=== PATIENT | male | born 1975 | race Caucasian/White ===

== ENCOUNTER 2021-09-03 13:08 | Inpatient (IN) | payer OTHER, SELFPAY ==
[2021-09-03] VITALS (31 sets, daily range): BP systolic 117–168; BP diastolic 49–121; PULSE 62–116; RESP 10–23; TEMP 36.8; O2SAT 96–100; BMI 23.3
--- NOTE | 2021-09-03 13:24 | ECG_ITS ---
[facility] Test Date: 2021-09-03 Pat Name: Alonso June Department: Room: Gender: Male V Belt Skiver: : 1975 Requested By: Kam Phillips Order Number: [id number] Janel MD: Heath Pacheco M.D. Measurements Intervals [place] Rate: 98 P: 69 WA: 148 QRS: 70 QRSD: 81 T: 57 QT: 312 QTc: 398 Interpretive Statements SINUS RHYTHM No previous ECG available for comparison Electronically Signed On 09-03-2021 18:41:21 CDT by Heath Pacheco M.D. [id number]
--- NOTE | 2021-09-03 13:24 | XRR_ITS ---
PROCEDURE INFORMATION: Exam: XR Chest Exam date and time: 09/03/2021 1:24 PM Age: 46 years old Clinical indication: Pain; Angina pectoris; Additional info: Chest pain TECHNIQUE: Imaging protocol: XR of the chest. Views: 1 view. COMPARISON: No relevant prior studies available. FINDINGS: Lungs: Unremarkable. No consolidation. Pleural spaces: Unremarkable. No pleural effusion. No pneumothorax. Heart/Mediastinum: Unremarkable. No cardiomegaly. Bones/joints: Unremarkable. XR/XR chest 1V portable 20004 IMPRESSION: No acute findings.
--- NOTE | 2021-09-03 13:50 | ED_ITS ---
HPI - Chest Pain General: Chief Complaint: Chest Pain Stated Complaint: Chest pain Time Seen by Provider: 09/03/21 13:23 Source: patient Mode of arrival: ambulatory Limitations: no limitations History of Present Illness: 46-year-old male presents to the emergency room with complaint of chest pain. Pain began while he was working on a car about 30 minutes prior to arrival. Patient states she has a history of coronary artery disease. He states he had 9 stents placed last year while he was in [place]. He did take a sublingual nitro after the chest pain began. He told me he had moderate relief from it he told the nurse he not get any improvement. He did get a little bit short of breath and nauseous no vomiting no diaphoresis. He still has persistent discomfort at this time. Pain radiates into his left shoulder and left arm MD complaint: chest pain Pertinent past history: coronary artery disease Timing of current episode: constant Prior episodes: Yes Onset: during exertion (Minimal exertion) Pain location: left chest Pain radiation: left arm and left shoulder Severity: moderate Quality: tightness and heaviness Relieving factors: nitroglycerin and rest Exacerbating factors: exertion Associated symptoms: Reports diaphoresis, dyspnea and nausea; Deny abdominal pain, fever(s), leg edema, palpitations, sense of impending doom, syncope or vomiting Treatment prior to arrival: aspirin and nitroglycerin Review of Systems Const: Reports: diaphoresis; Denies: fever(s) ENMT: Denies: throat pain, ear or mastoid pain, nasal discharge or nasal congestion Card: Reports: chest pain; Denies: palpitations, irregular heart rhythm, edema, swelling of feet/ankles or syncope Resp: Reports: dyspnea GI: Reports: nausea; Denies: abdominal pain or vomiting : Denies: flank pain, dysuria, urinary frequency or urinary urgency Skin/Breast: Denies: rash or pruritus PFS ED PFSH: Medical History CAD (coronary artery disease) 9stents Former smoker HTN (hypertension) Surgical History History of appendectomy Family History Other No pertinent family history Social History Smoking and tobacco status: former smoker Alcohol intake: never Housing: House Physical Exam Const: COMMON NORMALS: no acute distress GENERAL APPEARANCE: cooperative and comfortable ORIENTATION/CONSCIOUSNESS: Yes awake, Yes oriented to person, Yes oriented to place and Yes oriented to time HENMT: COMMON NORMALS: normocephalic, atraumatic, hearing grossly normal bilaterally, external ears normal, EAC's normal, TM's normal bilaterally, Normal nasal mucous membranes and turbinates present, moist oral mucous membranes and oropharynx normal HEAD & SCALP: normocephalic and atraumatic NOSE: Normal nasal mucous membranes and turbinates present EXTERNAL EAR: Yes external ears normal EXTERNAL AUDITORY CANAL: EAC's normal TYMPANIC MEMBRANE: TM's normal bilaterally Eye: COMMON NORMALS: Equal, round and reactive pupils present, EOMs intact bilaterally, conjunctivae normal and no scleral icterus CONJUNCTIVA: Yes conjunctivae normal PUPIL: Yes Equal, round and reactive pupils present Neck/C-Spine: COMMON NORMALS: full ROM, no lymphadenopathy, supple and no JVD Resp: COMMON NORMALS: normal respiratory effort, No retractions, No use of accessory muscles and clear to auscultation bilaterally AUSCULTATION: clear to auscultation bilaterally Cardio: COMMON NORMALS: no JVD, regular rate, regular rhythm and No murmurs present (Cardio) RATE: regular rate RHYTHM: regular rhythm GI: COMMON NORMALS: Soft to palpation and No hepatosplenomegaly present AUSCULTATION: Yes normoactive bowel sounds PALPATION: Yes Soft to palpation, No Tenderness to palpation present (GI), No Guarding due to palpation present (GI) and Yes No hepatosplenomegaly present Extremity: COMMON NORMALS: normal to inspection, capillary refill normal, no clubbing, cyanosis or edema, no calf tenderness and no pedal edema Neuro: SENSORIUM/ORIENTATION: Yes oriented to person, Yes oriented to place and Yes oriented to time Skin: COMMON NORMALS: no rashes or lesions noted GENERAL SKIN EXAM: no rashes or lesions noted Course Vital Signs: Vital signs: Vital Signs Temperature 97.4 F L 09/04/21 07:15 Pulse Rate 71 09/05/21 14:34 Respiratory Rate 15 09/05/21 14:34 Blood Pressure 117/62 09/05/21 14:34 Pulse Oximetry 95 09/05/21 14:34 MDM - Chest Pain Medical Decision Making Patient has chest pain relieved by nitro with report of known coronary disease and previous stents. He states he had 9 stents immediately after arrival here only to obtain his history began trying to get copies of his cath report from [place] he said this was done. We are not able to get these in within the timeframe of getting his [place] enzymes completed. They are negative at this point but he is reporting relief of chest pain with nitro. Discussed with hospitalist given his symptoms and reported history will need to admit consult cardiology and get his old records and review complete the serial enzymes as well. I discussed with cardiology and with hospitalist orders are written. Medical Records I reviewed the patient's medical records. Lab Data : 09/05/21 07:56 09/05/21 07:56 Radiology Impressions Chest X-Ray 09/03/21 13:24 IMPRESSION: No acute findings. Head MRI 09/04/21 05:20 IMPRESSION: 1. No evidence of restricted diffusion to suggest acute ischemia. 2. No suspicious intracranial signal abnormalities. Normal jimenez-white differentiation. 3. Tiny chronic lacunar infarct or prominent perivascular space LEFT cerebral peduncle. 4. No hemosiderin on susceptibly weighted images. 5. No acute intracranial findings. Head/Neck CTA 09/04/21 05:20 IMPRESSION: No large vessel stenosis or occlusion. IMPRESSION: No stenosis or occlusion. REFERENCES: NASCET CRITERIA. The degree of internal carotid artery stenosis is based on NASCET criteria. Normal is no stenosis. Mild is less than 50% stenosis. Moderate is 50-69% stenosis. Severe is 70% to 99% stenosis. Total occlusion is no detectable patent lumen. Head CT 09/04/21 20:45 IMPRESSION: 1. No acute intracranial hemorrhage or mass effect. 2. Other findings discussed above. Laboratory Results WBC 7.3 10^3/uL (4.0-10.0) 09/03/21 13:39 RBC 3.96 10^6/uL (4.1-5.3) L 09/03/21 13:39 Hgb 10.3 g/dL (11.7-16.6) L 09/03/21 13:39 Hct 32.7 % (42.0-52.0) L 09/03/21 13:39 MCV 82.6 fl (80-94) 09/03/21 13:39 MCH 26.0 pg (28.0-34.0) L 09/03/21 13:39 MCHC 31.5 g/dL (30.0-36.0) 09/03/21 13:39 RDW 14.4 % (12.1-15.1) 09/03/21 13:39 Plt Count 251 10^3/cmm (130-400) 09/03/21 13:39 MPV 12.8 fL (7.4-10.4) H 09/03/21 13:39 Neut % (Auto) 63.9 % 09/03/21 13:39 Lymph % (Auto) 20.9 % 09/03/21 13:39 Stephenson % (Auto) 12.0 % 09/03/21 13:39 Eos % (Auto) 2.1 % 09/03/21 13:39 Baso % (Auto) 0.8 % 09/03/21 13:39 Neut # (Auto) 4.66 10^3/uL (1.8-7.7) 09/03/21 13:39 Lymph # (Auto) 1.5 10^3/uL (0.8-4.8) 09/03/21 13:39 Stephenson # (Auto) 0.9 10^3/uL (0.2-0.9) 09/03/21 13:39 Eos # (Auto) 0.2 10^3/uL (0.0-0.8) 09/03/21 13:39 Baso # (Auto) 0.1 10^3/uL (0.0-0.1) 09/03/21 13:39 Nucleated RBC % (auto) 0 % 09/03/21 13:39 Nucleated RBCs # 0.0 /100WBC 09/03/21 13:39 Sodium 136 mmol/L (136-145) 09/03/21 13:39 Potassium 3.5 mmol/L (3.5-5.1) 09/03/21 13:39 Chloride 103 mmol/L (98-107) 09/03/21 13:39 Carbon Dioxide 21 mmol/L (22-29) L 09/03/21 13:39 Anion Gap 15.5 (5-19) 09/03/21 13:39 BUN 12 mg/dL (6-20) 09/03/21 13:39 Creatinine 1.1 mg/dL (0.7-1.2) 09/03/21 13:39 GFR Calculation 72.7 mL/min (90-130) L 09/03/21 13:39 Glucose 91 mg/dL (65-115) 09/03/21 13:39 Estimat Average Glucose 82 09/03/21 13:35 Hemoglobin A1c 4.5 % (4.0-6.0) 09/03/21 13:35 Calculated Osmolality 281 mOsm/kg (285-295) L 09/03/21 13:39 Calcium 9.2 mg/dL (8.5-10.5) 09/03/21 13:39 Total Bilirubin 0.2 mg/dL (0.15-1.2) 09/03/21 13:39 AST 13 U/L (0-40) 09/03/21 13:39 ALT 12 U/L (0-41) 09/03/21 13:39 Alkaline Phosphatase 66 IU/L (40-130) 09/03/21 13:39 Creatine Kinase 142 U/L (39-308) 09/03/21 13:39 Troponin T Baseline 27 ng/L (0-15) H 09/03/21 13:35 Troponin T 120 Minute 27.49 ng/L (0-15) H 09/03/21 15:32 Delta Troponin T 0.49 ABS# (0-10) 09/03/21 15:32 Total Protein 6.8 g/dL (6.6-8.7) 09/03/21 13:39 Albumin 4.4 g/dL (3.5-5.2) 09/03/21 13:39 Globulin 2.4 g/dL (1.3-4.6) 09/03/21 13:39 Triglycerides 139 mg/dL (0-150) 09/03/21 13:35 Cholesterol 148 mg/dL (0-200) 09/03/21 13:35 LDL Cholesterol, Calc 78 mg/dL (50-129) 09/03/21 13:35 HDL Cholesterol 42 mg/dL (60-100) L 09/03/21 13:35 LDL/HDL Ratio 1.86 RATIO (0.00-3.22) 09/03/21 13:35 Cholesterol/HDL Ratio 3.52 mg/dL (1.0-5.00) 09/03/21 13:35 TSH 0.32 uIU/mL (0.27-4.20) 09/03/21 13:35 Discharge Plan Discharge Patient Disposition: Admitted As Inpatient Admit Provider: Shelley Rdz Clinical Impression: Atherosclerotic heart disease of [place] coronary artery with unstable angina pectoris, Anemia, Diabetes, Benign essential HTN Condition: Stable Discharge Diet: Cardiac Discharge Activity: Resume usual activity Coding Level of Care Code ED Manufacturing Business Analyst for Marcelino Stephen
[2021-09-03] MEDS: aspirin 81 mg Chew Tablet 324 MG PO (13:51)
[2021-09-03] MEDS: ondansetron 2 mg/ML SDV 2 mL 4 MG IVP ×2 (14:01→20:28)
[2021-09-03] MEDS: morphine 4 mg/mL SDV 1 mL 2 MG IVP ×3 (14:02→21:01)
[2021-09-03] MEDS: nitroglycerin 1 gm/inch oint Pkt 1 INCH TOPICAL ×2 (14:04→15:46)
[2021-09-03 14:18] LABS: Troponin(5th) Baseline 27 ng/L (0-15)
--- NOTE | 2021-09-03 14:37 | PC.PHAR ---
PT STATES HE TAKES CARE IF HIS OWN MEDICATIONS-PT STATES HE USES [facility] NEVER FILLED PT STATES MAY HAVE [facility]ILLED AT [facility] [phone] THEY STATE NEVER FILLED INSULIN FOR THE PT-PT STATES THE DR TOLD HIM TO STOP USING LAST WEEK BUT STATES HE HAS STILL BEEN USING-NOTES ARE MADE IN THE PHARMACY COMMENTS
[2021-09-03 15:04] LABS: Basophils # 0.1 10^3/uL (0.0-0.1); Basophils % 0.8 %; Eosinophils # 0.2 10^3/uL (0.0-0.8); Eosinophils % 2.1 %; Hematocrit 32.7 % (42.0-52.0); Hemoglobin 10.3 g/dL (11.7-16.6); Lymphocytes # 1.5 10^3/uL (0.8-4.8); Lymphocytes % 20.9 %; Mean Corpuscular HGB Conc 31.5 g/dL (30.0-36.0); Mean Corpuscular Volume 82.6 fl (80-94); Mean Platelet Volume 12.8 fL (7.4-10.4); Monocytes # 0.9 10^3/uL (0.2-0.9); Neutrophils # 4.66 10^3/uL (1.8-7.7); Neutrophils % 63.9 %; Nucleated Red Blood Cells % 0 %; Platelet Count 251 10^3/cmm (130-400); Red Blood Count 3.96 10^6/uL (4.1-5.3); Red Cell Distribution Width 14.4 % (12.1-15.1); White Blood Count 7.3 10^3/uL (4.0-10.0)
[2021-09-03 15:21] LABS: Alanine Aminotransferase 12 U/L (0-41); Albumin Level 4.4 g/dL (3.5-5.2); Alkaline Phosphatase 66 IU/L (40-130); Anion Gap 15.5 (5-19); Aspartate Amino Transferase 13 U/L (0-40); Blood Urea Nitrogen 12 mg/dL (6-20); Calcium 9.2 mg/dL (8.5-10.5); Carbon Dioxide 21 mmol/L (22-29); Chloride 103 mmol/L (98-107); Creatine Phosphokinase 142 U/L (39-308); Globulin 2.4 g/dL (1.3-4.6); Glomerular Filtration Rate 72.7 mL/min (90-130); Glucose 91 mg/dL (65-115); Osmolality Calculated 281 mOsm/kg (285-295); Potassium 3.5 mmol/L (3.5-5.1); Sodium 136 mmol/L (136-145); Total Bilirubin 0.2 mg/dL (0.15-1.2); Total Protein 6.8 g/dL (6.6-8.7)
--- NOTE | 2021-09-03 15:24 | ECG_ITS ---
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 Measurements Intervals [place] Rate: 74 P: 55 NM: 146 QRS: 66 QRSD: 90 T: 61 QT: 351 QTc: 390 Interpretive Statements SINUS RHYTHM MODERATE VOLTAGE CRITERIA FOR LVH, CONSIDER NORMAL VARIANT [MEETS CRITERIA IN ONE OF: R(aVL), S(V1), R(V5), R(V5/V6)+S(V1)] Compared to ECG 09/03/2021 13:19:02 No significant changes Electronically Signed On 09-03-2021 18:51:34 CDT by Heath Pacheco M.D. [id number]
[2021-09-03 16:06] LABS: Troponin 5 2HR 27.49 ng/L (0-15)
[2021-09-03 16:08] LABS: Troponin 5 2HR Delta 0.49 ABS# (0-10)
--- NOTE | 2021-09-03 17:45 | PC.NURSE ---
PATIENT MARIJUANA CONFISCATED. GIVEN TO SECURITY. CAN RETURN TO PATIENT AT DISCHARGED.
--- NOTE | 2021-09-03 17:55 | P.HP_ITS ---
Providers/Chief Complaint Admitting Physician: Shelley Rdz MD Primary Care Provider: [facility] Chief Complaint: Chest pain History of Present Illness Alonso June is a 46 year old male who presents today with chief complaint of worsening chest pain. Patient is stating that his symptoms started around 10:30 AM when he was taking an engine from the race car. His chest pain was pressure- like sensation, which was increasing in intensity, he passed out. His family called EMS and brought him to the ER. Patient is stating that he has history of 9 stents placed in [place]. He recently quit smoking last year. In the ER EKG showed sinus rhythm without STEMI, first troponin XX 7, 27.49-second troponin, I requested D-dimer. At the time of my evaluation patient was experiencing excruciating chest pain, I started him on nitroglycerin drip and given him 2 mg of IV morphine. Updated Dr. Jean Baptiste. He will evaluate the patient at the bedside. By the time Dr. Jean Baptiste evaluate the patient his pain was 5/10. He was describing his pain as pressure-like sensation, left-sided, diffuse. He was hypertensive, tachycardic. No active nausea, vomiting. Twelve-lead EKG showed sinus rhythm without any STEMI changes. Review of Systems Const: Denies: body aches Eyes: Denies: change in vision ENMT: Denies: throat pain Card: Reports: chest pain Resp: Denies: dyspnea GI: Denies: abdominal pain : Denies: flank pain Musc: Denies: neck pain Skin/Breast: Denies: rash Neuro: Denies: headache(s) Psych: Denies: anxiety Endo: Denies: polyuria Melquiades/Lymph: Denies: easy bruising All/Imm: Denies: urticaria Medications/Allergies Home Medications Medication Instructions Recorded Confirmed Last Taken Type albuterol sulfate 90 mcg/actuation 2 puff INHALATION Q4H PRN 09/03/21 09/03/21 Unknown History aerosol inhaler (ProAir HFA) amlodipine 5 mg tablet 5 mg PO QAM 09/03/21 09/03/21 09/02/21 History aspirin 81 mg tablet,delayed 81 mg PO QAM 09/03/21 09/03/21 09/02/21 History release atorvastatin 40 mg tablet 40 mg PO BEDTIME 09/03/21 09/03/21 09/02/21 History sabdpirosx-ydflyebhjolkc-sjglztds 2 tab PO BID PRN 09/03/21 09/03/21 Unknown History 50 mg-325 mg-40 mg tablet clopidogrel 75 mg tablet 75 mg PO QAM 09/03/21 09/03/21 09/02/21 History insulin glargine 100 unit/mL (3 50 unit SUBCUT BID 09/03/21 09/03/21 09/03/21 07:00 History mL) subcutaneous pen (Lantus SEE [facility] U-100 Insulin) COMMENT isosorbide mononitrate 30 mg 60 mg PO QAM 09/03/21 09/03/21 09/02/21 History tablet,extended release 24 hr levetiracetam 500 mg tablet 500 mg PO BID 09/03/21 09/03/21 09/02/21 History lisinopril 10 1 tab PO DAILY PRN 09/03/21 09/03/21 Unknown History mg-hydrochlorothiazide 12.5 mg tablet metoprolol tartrate 100 mg tablet 50 mg PO BID 09/03/21 09/03/21 09/02/21 History multivitamin 1 tab PO QAM 09/03/21 09/03/21 09/02/21 History nicotine 21 mg/24 hr daily 21 mg TOPICAL DAILY 09/03/21 09/03/21 09/02/21 History transdermal patch nitroglycerin 0.4 mg sublingual 0.4 mg SUBLINGUAL Q5M PRN 09/03/21 09/03/21 09/03/21 11:15 History tablet (Nitrostat) ondansetron HCl 4 mg tablet 4 mg PO Q8H PRN 09/03/21 09/03/21 Unknown History quetiapine 25 mg tablet See Rx Instructions .ROUTE .COMPLEX 09/03/21 09/03/21 09/02/21 History ranolazine 500 mg tablet,extended 500 mg PO BID 09/03/21 09/03/21 09/02/21 History release,12 hr Allergies Allergy/AdvReac Type Severity Reaction Status Date / Time butorphanol [From Stadol] Allergy ALGY-Difficulty Verified 09/03/21 14:08 Breathing Iodinated Contrast Media Allergy Unresponsiv Verified 09/03/21 14:08 e iodine Allergy Unresponsiv Verified 09/03/21 14:08 e ketorolac [From Toradol] Allergy ALGY-Difficulty Verified 09/03/21 14:08 Breathing nalbuphine [From Nubain] Allergy Unknown Verified 09/03/21 14:08 Penicillins Allergy Unknown Verified 09/03/21 14:08 promethazine [From Phenergan] Allergy Unknown Verified 09/03/21 14:08 PFSH Acute PFSH: Medical History CAD (coronary artery disease) 9stents Former smoker HTN (hypertension) Surgical History History of appendectomy Family History Other No pertinent family history Social History Smoking and tobacco status: former smoker Alcohol intake: never Substance/Drug Use: never Housing: House Vitals/I&O/Wt Last Vital Signs Temp 98.3 F 09/03/21 13:13 Pulse 97 09/03/21 17:53 Resp 15 09/03/21 17:53 BP 125/67 09/03/21 17:53 Pulse Ox 99 09/03/21 17:53 Weight last 48 hrs Weight 65.771 kg Physical Exam Narrative: Patient was crying because excruciating pain when I entered the room Nitropaste was removed, nitroglycerin drip started Patient is hypertensive and tachycardic Awake and alert He is getting drowsy after getting morphine Nonfocal neuro exam Saturating well on room air Lean appearance No signs of edema No active audible stridor or wheezing No signs of edema of legs Data : 09/03/21 13:39 09/03/21 13:39 A&P Assessment and plan (1) Angina at rest: Status: Acute (2) Hypertensive urgency: Status: Acute Plan Unstable angina History of established coronary disease Requested medical records Active chest pain Currently on nitroglycerin drip EKG without any active active infarct or ischemic changes He was given 2 mg IV morphine for associating chest pain It subsided his intensity of pain to 5/10 We will obtain D-dimer, CTA chest on stat basis Dr. Jean Baptiste notified and consulted We will keep him n.p.o. I will start him on therapeutic Lovenox regimen Start aspirin and high-dose statins with metoprolol and lisinopril Type 2 diabetes: Continue sliding scale Check A1c level Former smoker DuoNedeanne as needed basis Full code Attestations Medical Necessity Statement*: More than 2 midnights anticipated Time Spent in Patient Care: 35mins Coding Level of Care Code Acute Reed Or Wind Instrument Repairer for Marcelino Stephen Diagnoses Angina at rest I20.8 Hypertensive urgency I16.0
--- NOTE | 2021-09-03 18:08 | ECG_ITS ---
[facility] Test Date: 2021-09-03 Pat Name: Alonso June Department: Room: 102 Gender: Male Staff Development Nurse: : 1975 Requested By: Shelley Rdz Order Number: [id number] Janel MD: Heath Pacheco M.D. Measurements Intervals [place] Rate: 86 P: 59 CO: 124 QRS: 74 QRSD: 88 T: 63 QT: 327 QTc: 392 Interpretive Statements SINUS RHYTHM MINIMAL VOLTAGE CRITERIA FOR LVH, CONSIDER NORMAL VARIANT [MEETS CRITERIA IN ONE OF: R(aVL), S(V1), R(V5), R(V5/V6)+S(V1)] Compared to ECG 09/03/2021 14:39:08 No significant changes Electronically Signed On 09-03-2021 18:40:16 CDT by Heath Pacheco M.D. [id number]
[2021-09-03] MEDS: nitroglycerin drip 50 MG/250 ML PREMIX 30 MG (18:12)
[2021-09-03] MEDS: nitroglycerin drip 50 MG/250 ML PREMIX 30 MG IV (18:24)
--- NOTE | 2021-09-03 18:31 | P.CONIM_ITS ---
Providers/Reason For Consult Consulting Physician/Specialty*: BASILIA Jean Baptiste MD/cardiology Reason for Consult*: Patient with history of coronary disease, status post multiple PCI's in the recent past, now presenting with episodes of severe chest pain Requesting Physician: Dr. Rdz Attending Physician: Shelley Rdz MD Primary Care Provider: [facility] History of Present Illness History of Present Illness Alonso June is a 46 year old male with a history of coronary disease, status post multiple PCI's since June of this year, is now presenting with complaints of chest pain since this morning. According to the patient, he was in his baseline state of health up until this morning when while he was putting an engine in a race car, started having chest pain. The pain was confined to the upper substernal region, radiating across the chest. The pain was moderate to severe in intensity. This has been waxing and waning throughout the day. He never had any complete relief of the pain. In the emergency room, the pain was minimal to moderate in intensity. He is admitted to hospital for further evaluation and management. Soon after he came to the telemetry floor, started having more severe pain. He started crying because of the pain. He had 3 EKGs so far showing no ischemic changes. His cardiac enzymes are negative for myocardial injury. He denies any fever or chills. No cough. No unusual shortness of breath. He has been having some nausea and cold sweats. No other associated symptoms or radiation of pain. He has a strong family history for premature atherosclerotic heart disease. His mother had a myocardial infarction at the age of 24. He has a history of hypertension, insulin requiring diabetes and dyslipidemia. He used to smoke 1 to 2 pack a day for 20 years or so. He quit smoking a year ago. No alcohol abuse or any other substance abuse. According the patient, he had myocardial infarctionX 2 so far. In June of this year, he had the first myocardial infarction. At that time, he was admitted to the [facility] in [place] and had PCI. He had a second angella cardial infarction in July. This time also he was admitted to the [facility] and underwent PCI. The details are not available. He had a total of 8 stents. He has been compliant with medications. Review of Systems Narrative: CONSTITUTIONAL: No fever or chills. EYES: No blurring of vision or other visual disturbances lately. ENT: No hoarseness of voice, auditory disturbances or sore throat. CARDIOVASCULAR: As mentioned above. RESPIRATORY: No significant cough. GASTROINTESTINAL: As some nausea with the chest pain. GENITOURINARY: No dysuria or hematuria. INTEGUMENTARY: No skin rashes or history of skin cancer. NEURO: No transient ischemic attacks or amaurosis. PSYCHIATRIC: History of depressive illness HEMATOLOGIC: No bleeding disorders or significant anemia. ENDOCRINE: Insulin requiring diabetes MUSCULOSKELETAL: No recent joint pain or swelling. ALLERGY/IMMUNOLOGY: As mentioned above. Medications/Allergies Home Medications Medication Instructions Recorded Confirmed Last Taken Type albuterol sulfate 90 mcg/actuation 2 puff INHALATION Q4H PRN 09/03/21 09/03/21 Unknown History aerosol inhaler (ProAir HFA) amlodipine 5 mg tablet 5 mg PO QAM 09/03/21 09/03/21 09/02/21 History aspirin 81 mg tablet,delayed 81 mg PO QAM 09/03/21 09/03/21 09/02/21 History release atorvastatin 40 mg tablet 40 mg PO BEDTIME 09/03/21 09/03/21 09/02/21 History nnepgkouno-pqcjumkbfibuq-uxfiyisn 2 tab PO BID PRN 09/03/21 09/03/21 Unknown History 50 mg-325 mg-40 mg tablet clopidogrel 75 mg tablet 75 mg PO QAM 09/03/21 09/03/21 09/02/21 History insulin glargine 100 unit/mL (3 50 unit SUBCUT BID 09/03/21 09/03/21 09/03/21 07:00 History mL) subcutaneous pen ([facility]) COMMENT isosorbide mononitrate 30 mg 60 mg PO QAM 09/03/21 09/03/21 09/02/21 History tablet,extended release 24 hr levetiracetam 500 mg tablet 500 mg PO BID 09/03/21 09/03/21 09/02/21 History lisinopril 10 1 tab PO DAILY PRN 09/03/21 09/03/21 Unknown History mg-hydrochlorothiazide 12.5 mg tablet metoprolol tartrate 100 mg tablet 50 mg PO BID 09/03/21 09/03/21 09/02/21 History multivitamin 1 tab PO QAM 0309/03/21 09/02/21 History nicotine 21 mg/24 hr daily 21 mg TOPICAL DAILY 09/03/21 09/03/21 09/02/21 History transdermal patch nitroglycerin 0.4 mg sublingual 0.4 mg SUBLINGUAL Q5M PRN 09/03/21 09/03/21 09/03/21 11:15 History tablet (Nitrostat) ondansetron HCl 4 mg tablet 4 mg PO Q8H PRN 09/03/21 09/03/21 Unknown History quetiapine 25 mg tablet See Rx Instructions .ROUTE .COMPLEX 09/03/21 09/03/21 09/02/21 History ranolazine 500 mg tablet,extended 500 mg PO BID 09/03/21 09/03/21 09/02/21 History release,12 hr Allergies Allergy/AdvReac Type Severity Reaction Status Date / Time butorphanol [From Stadol] Allergy ALGY-Difficulty Verified 09/03/21 14:08 Breathing Iodinated Contrast Media Allergy Unresponsiv Verified 09/03/21 14:08 e iodine Allergy Unresponsiv Verified 09/03/21 14:08 e ketorolac [From Toradol] Allergy ALGY-Difficulty Verified 09/03/21 14:08 Breathing nalbuphine [From Nubain] Allergy Unknown Verified 09/03/21 14:08 Penicillins Allergy Unknown Verified 09/03/21 14:08 promethazine [From Phenergan] Allergy Unknown Verified 09/03/21 14:08 Current Medications Generic Name Dose Route Start Last Admin Trade Name Freq PRN Reason Stop Dose Admin Nitroglycerin/Dextrose 50 mg in 250 mls @ 0 mls/hr 09/03/21 18:15 09/03/21 18:24 Nitroglycerin Drip IV 100 mcg/min .Q0M AMBROCIO 30 mls/hr Administration Protocol Per Protocol PFSH Acute PFSH: Medical History CAD (coronary artery disease) 9stents Former smoker HTN (hypertension) Surgical History History of appendectomy Family History Other No pertinent family history Social History Smoking and tobacco status: former smoker Alcohol intake: never Housing: House Vitals/I&O/Wt Last Vital Signs Temp 98.3 F 09/03/21 13:13 Pulse 97 09/03/21 17:53 Resp 20 H 09/03/21 18:23 BP 125/67 09/03/21 17:53 Pulse Ox 99 09/03/21 17:53 Weight last 48 hrs Weight 145 lb Physical Exam Narrative: GENERAL: The patient is alert and oriented times three. Not in any acute distress. HEENT: No significant pallor, icterus or lymphadenopathy. The pupils are reactant to light. Oral cavity: There are no mucous membrane lesions. Funduscopic examination:The fundus is not visualized NECK: Trachea appears to be central. No masses noted. No JVD or thyromegaly appreciated. No carotid bruit. RESPIRATORY: Chest is symmetrical. No intercostals muscle retraction or any accessory muscle activation. There is no chest wall tenderness. Breath sounds are heard bilaterally. No rales or rhonchi heard. No evidence of any co nsolidation. BREASTS: Deferred. HEART: The PMI is in the 5th left intercostals space just inside the midclavicular line. No palpable precordial events. S1 and S2 are normal. No S3 or S4 heard. No pericardial rub or any click heard. ABDOMEN: No vessel pulsations or distention. No tenderness. No organomegaly appreciated. No abdominal bruit. Bowel sounds are normally heard. : Deferred. RECTAL: Deferred. LYMPHATIC: No lymphadenopathy noted in the neck or groin. EXTREMITIES: No edema or cyanosis. No clubbing. The pulses are symmetrical bilaterally. The radial, femoral, dorsalis pedis and the posterior tibial pulses are palpated and found to be in good volume and amplitude. Extensive tattoo mar ks in the upper extremities. MUSCULOSKELETAL: No acute joint deformities or swelling SKIN: There are no significant scars or skin rash noted. NEUROPSYCHIATRIC: The patient is alert and oriented x3. Appears to be in a good mood. The higher functions are grossly within normal limits. No tremors or rig idity noted. Data : 09/04/21 03:05 09/04/21 03:05 Other Labs: Laboratory Last Values WBC 7.3 10^3/uL (4.0-10.0) 09/03/21 13:39 RBC 3.96 10^6/uL (4.1-5.3) L 09/03/21 13:39 Hgb 10.3 g/dL (11.7-16.6) L 09/03/21 13:39 Hct 32.7 % (42.0-52.0) L 09/03/21 13:39 MCV 82.6 fl (80-94) 09/03/21 13:39 MCH 26.0 pg (28.0-34.0) L 09/03/21 13:39 MCHC 31.5 g/dL (30.0-36.0) 09/03/21 13:39 RDW 14.4 % (12.1-15.1) 09/03/21 13:39 Plt Count 251 10^3/cmm (130-400) 09/03/21 13:39 MPV 12.8 fL (7.4-10.4) H 09/03/21 13:39 Neut % (Auto) 63.9 % 09/03/21 13:39 Lymph % (Auto) 20.9 % 09/03/21 13:39 [place] % (Auto) 12.0 % 09/03/21 13:39 Eos % (Auto) 2.1 % 09/03/21 13:39 Baso % (Auto) 0.8 % 09/03/21 13:39 Neut # (Auto) 4.66 10^3/uL (1.8-7.7) 09/03/21 13:39 Lymph # (Auto) 1.5 10^3/uL (0.8-4.8) 09/03/21 13:39 [place] # (Auto) 0.9 10^3/uL (0.2-0.9) 09/03/21 13:39 Eos # (Auto) 0.2 10^3/uL (0.0-0.8) 09/03/21 13:39 Baso # (Auto) 0.1 10^3/uL (0.0-0.1) 09/03/21 13:39 Nucleated RBC % (auto) 0 % 09/03/21 13:39 Nucleated RBCs # 0.0 /100WBC 09/03/21 13:39 Sodium 136 mmol/L (136-145) 09/03/21 13:39 Potassium 3.5 mmol/L (3.5-5.1) 09/03/21 13:39 Chloride 103 mmol/L (98-107) 09/03/21 13:39 Carbon Dioxide 21 mmol/L (22-29) L 09/03/21 13:39 Anion Gap 15.5 (5-19) 09/03/21 13:39 BUN 12 mg/dL (6-20) 09/03/21 13:39 Creatinine 1.1 mg/dL (0.7-1.2) 09/03/21 13:39 GFR Calculation 72.7 mL/min (90-130) L 09/03/21 13:39 Glucose 91 mg/dL (65-115) 09/03/21 13:39 Calculated Osmolality 281 mOsm/kg (285-295) L 09/03/21 13:39 Calcium 9.2 mg/dL (8.5-10.5) 09/03/21 13:39 Total Bilirubin 0.2 mg/dL (0.15-1.2) 09/03/21 13:39 AST 13 U/L (0-40) 09/03/21 13:39 ALT 12 U/L (0-41) 09/03/21 13:39 Alkaline Phosphatase 66 IU/L (40-130) 09/03/21 13:39 Creatine Kinase 142 U/L (39-308) 09/03/21 13:39 Troponin T Baseline 27 ng/L (0-15) H 09/03/21 13:35 Troponin T 120 Minute 27.49 ng/L (0-15) H 09/03/21 15:32 Delta Troponin T 0.49 ABS# (0-10) 09/03/21 15:32 Total Protein 6.8 g/dL (6.6-8.7) 09/03/21 13:39 Albumin 4.4 g/dL (3.5-5.2) 09/03/21 13:39 Globulin 2.4 g/dL (1.3-4.6) 09/03/21 13:39 EKG 1: My Interpretation: Normal sinus rhythm with normal ST Ts. Normal TN and QRS duration. EKG computer-generated impression: Chest X-Ray 09/03/21 13:24 IMPRESSION: No acute findings. A&P Assessment and plan (1) Atherosclerotic heart disease of [place] coronary artery with unstable angina pectoris: Patient symptoms are suggestive of unstable angina. However in the absence of any EKG changes and also myocardial injury other etiologies cannot be ruled out. Possibility of an aortic dissection or pulmonary embolism are considerations. Patient is not hypoxic or tachypneic. His chest x-ray shows normal cardiac silhouette and with normal aortic shadow. Apparently he has a history of iodine allergy. Status: Acute (2) Benign essential HTN: We will try to optimize medical treatment Status: Acute (3) Dyslipidemia (high LDL; low HDL): Continue on the current medications. Status: Acute (4) Diabetes: Is a blood sugar need to be closely monitored. Status: Acute (5) Anemia: Etiology of anemia is not clear. The recent hospital admissions and multiple angiograms, could be the culprit factor. He has no obvious external bleeding. Status: Acute Plan In view of the patient's ongoing worsening episodes of chest pains, it may be appropriate to go ahead with a cardiac catheterization to rule out any acute o cclusion of the coronary arteries. May consider doing an aortogram, if the coronary angiogram does not reveal any significant lesions. He also is a consideration but my clinical suspicion may be low. The D-dimer is pending. Discussed with Dr. Rdz, my clinical impression and recommendations. Thank for the opportunity to eval this patient make these recommendations Consult Attestations Medical Necessity Statement: Patient requires continued hospital stay for close monitoring and further management Coding Level of Care Code Acute [facility] Operations Center Technician for Chg Fwd History Detailed Exam Detailed Medical Decision Making High Complexity Diagnoses Atherosclerotic heart disease of [place] coronary artery with unstable angina pectoris I25.110 Benign essential HTN I10 Dyslipidemia (high LDL; low HDL) E78.5 Diabetes E11.9 Anemia D64.9
[2021-09-03] MEDS: clopidogrel 75 mg Tablet 150 MG PO (18:40)
[2021-09-03 18:57] LABS: Thyroid Stimulating Hormone 0.32 uIU/mL (0.27-4.20)
[2021-09-03] MEDS: diphenhydrAMINE 50 mg/mL SDV 1mL 25 MG IVP (19:06)
--- NOTE | 2021-09-03 19:07 | PC.NURSE ---
Patient arrived from ER via stratcher> Patient is having chest pain 10/10. Patient describes pain as crushing and feels like his heart will Explode . Physician at bedside. Orders from Dr. Rdz to start nitro gtt at 100, give 2mg IV Morphine, EKG stat. Patient continues to have chest pain that is not relieved. Cardiology has been consulted. Patient has allergy to contrast media, CT with contrast canceled per Dr. Pacheco. Patient will go for angiogram stat. Patient is to receive benadryl IVP NOW and once cath team arrives patient will receive solu-medrol. Patient endorsed that he can tolerate contrast dye if he is given steroids and Benadryl. Report given to MACARIO Martinez. Patient will continue to be monitored closely and is awaiting angiogram at this time.
[2021-09-03 19:15] LABS: Chol HDL Ratio 3.52 mg/dL (1.0-5.00); Cholesterol 148 mg/dL (0-200); HDL Cholesterol 42 mg/dL (60-100); LDL Cholesterol Calculated 78 mg/dL (50-129); LDL HDL Ratio 1.86 RATIO (0.00-3.22); Triglycerides 139 mg/dL (0-150)
--- NOTE | 2021-09-03 19:20 | XACV_ITS ---
Exam Room: [facility] Gender: Male : 1975 Exam Priority: Routine Procedure(s): Procedure Description: Diagnostic procedure Procedure Description: Left Heart Catheterization Procedure Description: Left ventriculography Procedure Description: Aortogram Procedure Description: Coronary Angiography Diagnostic Cath Status: Urgent Diagnostic Findings * No disease noted in the Left Main, Left Anterior Descending, Right, or Circumflex coronary arteries. Has patent stents in Left main artery, LAD, diagonal and PDA. * Aortogram shows no evidence of aortic dissection. Conclusions 1. No disease noted in the Left Main, Left Anterior Descending, Right, or Circumflex coronary arteries. Has patent stents in Left main artery, LAD, diagonal and PDA. 2. Normal left ventricular systolic function. Ejection fraction of 55%. Recommendations * Aggressive risk factor modification. * Transfer back to [facility]. * Outpatient cardiology follow up in 4 weeks. Diagnostic RX Recommendation: medical therapy and/or counseling Ventriculography Ejection Fraction: 55.0 % Pressures Phase:Rest AO : 118 / 62 ( 84 ) @ 3:13:37 PM 101 / 56 ( 75 ) @ 3:13:37 PM 116 / 57 ( 81 ) @ 3:13:37 PM 121 / 58 ( 84 ) @ 3:13:37 PM LV : 126 / -18 / 10 @ 3:13:37 PM 130 / -17 / 12 @ 3:13:37 PM 129 / -13 / 14 @ 3:13:37 PM Valves Phase:DefaultPhase AV : 13.0 @ 8:13:37 PM AV Mean Gradient: 12.0 @ 8:13:37 PM Clinical Evaluation EBL: 5mL-10mL Procedural Details Procedure Consent Obtained. Admit Source: In Patient. Pre-Procedure Time Out. Identified patient by full name and date of as verbalized by the patient/guarantor. Does the consent match the physician's order: Yes. Accurate & Complete Informed Consent: Yes. Inpatient/Outpatient History & Physical on Chart: Yes. If H&P is completed, is and addenduem needed: N/A; If yes, is the addendum complete: N/A. Visualize and Verify Site with Patient/Guarantor: N/A. Relevant Radiology Images available: N/A. Pre-op teaching completed and patient verbalized understanding. The risks, benefits, and alternatives of sedation and/or procedure were discussed by physician. The patient agrees to continue. Procedure started. [facility] Clinical Fraility Score: 4: Vulnerable. 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 Chest Pain Symptom Assessment: Atypical Angina. Correct patient, site and procedure confirmed by cath team. Current diagnosis: Chest Pain. PERRLA. Strong, equal hand linux unix engineer bilaterally. Lungs clear x 5 lobes. IV Site on Arrival: 20 gauge in the left anticubital. IV Fluids: 0.9% NaCl at KVO. 50 mL infused prior to laboratory specialist. Pre Procedural Pulses: bilateral dorsalis pedis was 2+. Oxygen started at 2liters/min via nasal canula. right groin was prepped with chloroprep then draped in the usual sterile fashion. left groin was prepped with chloroprep then draped in the usual sterile fashion. Physician notified. Baseline sample Acquired. HR: 62 BPM. Physician arrived. Physician scrubbed in. Immediate Pre-Procedure Time Out. Correct Patient: Yes; Correct Procedure: Yes; Correct Site: Yes; Correct Patient Position: Yes; Correct Supplies: Yes; Dried Flammable Prep: Yes Blood Products Available: N/A;. Lidocaine 1% infiltrated to the right groin. Arterial access obtained with micropuncture set. A 5 [place] JL4 catheter in over wire. Multiple views taken of left coronary artery. Catheter out. A 5 [place] JR4 catheter in over wire. Multiple views taken of right coronary artery. Catheter out. A 5 [place] citizen Angled Pig catheter in over wire. EDP Sample taken: LV 126/-19,10; HR: 76 BPM; SpO2: 100%. LV gram performed in [place] @ 10 mL/second for a total of 30 mL. EDP Sample taken: LV 130/-18,12; HR: 78 BPM; SpO2: 99%. Pullback taken: LV 129/-14,14; AO 116/57(81); Mean: 12mmHg, Peak to Peak: 13mmHg, SEP: 24sec/min; HR: 79 BPM; SpO2: 100%. Aortogram performed in [place] @ 10 mL/second for a total of 30 mL. Catheter out. A Right femoral angiogram was performed to determine safe placement of closure device. A Suture was successful obtaining hemostatsis at the Right Femoral artery insertion site. Post Procedure: Pulses reassessed and unchanged. PERRLA. Strong, equal hand linux unix engineer bilaterally. No VTE prophylaxis required. Medication's Wasted: Heparin = 4000 u. Medication's Wasted: Other = Fentanyl 50mcg. Total IV fluids: 39 mL. Post-op diagnosis: Non obstructive CAD. Complications: none. Estimated blood loss: 5mL-10mL. Responsiveness - Normal response to verbal stimuli; alert and oriented, PERRLA. Airway - Unaffected, no intervention required; spontaneous ventilation. Circulation: W/N/L, pulses unchanged. Nausea/Vomiting: No. Procedure completed. Patient transferred by bed to 1st floor. Vital chart was stopped. Access Site Site: Right Femoral artery Sheath Size: 6 Fr Hemostasis Method: Suture Hemostasis Success: Successful Procedure Medications Start: 7:44 PM Stop: 7:44 PM Medication: Versed Amount: 1 mg Route: I.V. Start: 7:44 PM Stop: 7:44 PM Medication: Fentanyl Amount: 50 mcg Route: I.V. Start: 7:44 PM Stop: 7:44 PM Medication: Solu-Medrol (methylprednisolone) Amount: 125 mg Route: I.V. Start: 7:49 PM Stop: 7:49 PM Medication: Versed Amount: 1 mg Route: I.V. I, the attending physician, have reviewed and verified all procedure medications. Yes, all medications given per verbal order History/Risk Factors Hypertension: Yes Dyslipidemia: No Peripheral Arterial Disease (PAD): No Myocardial Infarction ([place]): Yes Obesity: No Renal Disease: No Prior Interventions PCI: Yes CABG: No Valve Surgery: No Date of PCI: 07/22/2021 Report Signatures Finalized by Heath Pacheco MD on 09/17/2021 11:08 AM
[2021-09-03] MEDS: famotidine 20 mg/2 mL INJ IVP (19:23)
[2021-09-03] MEDS: sodium chloride 0.9% 1,000 ML 50 ML IV (19:23)
--- NOTE | 2021-09-03 19:30 | W.PM.OPSUD ---
Surgery/Procedure H&P Update DATE OF PROCEDURE: September 03, 2021 DATE H&P PERFORMED: 09/03/21 H&P UPDATE INFORMATION: I have reviewed H&P completed within last 30 days, I have examined patient prior to procedure and No changes to prior documentation PREOP DIAGNOSIS: Unstable angina PRIMARY INDICATION FOR PROCEDURE: Unstable angina PLANNED PROCEDURE: Left heart cath with possible percutaneous coronary intervention PATIENT REASSESSED PRIOR TO SEDATION, WITH NO CHANGE NOTED: Yes PHYSICAL EXAM: alert, oriented x 3, clear to auscultation bilaterally and regular rate & rhythm AIRWAY EVAL/ANESTHESIA PLAN: ASA III, Monitored Anesthesia, Local Anesthesia, Risks, benefits & alternatives of sedation and/or procedure discussed and Patient agrees to continue as planned
--- NOTE | 2021-09-03 19:31 | PC.NURSE ---
Dr. Mueller ordered to give IV Benadryl, but to not give IV Solumedrol at this time.
--- NOTE | 2021-09-03 20:30 | PM.MISC ---
Miscellaneous Note Purpose of Documentation: BRIEF PROCEDURE NOTE Note: LEFT MAIN ARTERY: Patent stent LAD: Patent stents LCx: Small to medium sized, patent RCA: Patent LV gram showed normal LV function Recommendation: Medical therapy
[2021-09-03] MEDS: temazepam 15 mg Capsule PO (21:44)
[2021-09-03] MEDS: atorvastatin 40 mg Tablet 80 MG PO (21:44)
[2021-09-03 21:50] LABS: Glucose Point of Care 91 mg/dL (70-110)
[2021-09-03] MEDS: acetaminophen 325 mg Tablet 650 MG PO (22:00)
[2021-09-03] MEDS: ALPRAZolam 0.5 mg Tablet 0.25 MG PO (22:00)
--- NOTE | 2021-09-03 22:02 | PC.NURSE ---
Sheath removed from right groin at 2100. Manual pressure held for 20 minutes. Tolerated well. VSS. No hematoma at this time. Patient educated on post-cath activity restrictions and care and verbalized understanding. Dressing placed.
[2021-09-03 22:22] LABS: Estmated Average Glucose 82; Hemoglobin A1C 4.5 % (4.0-6.0)
--- NOTE | 2021-09-03 23:05 | PC.NURSE ---
Patient c/o 10/10 pain to legs, chest and body. Post-cath site WNL. Distal pulses and skin WNL.
--- NOTE | 2021-09-03 23:07 | PC.NURSE ---
Patient states he wears 2 L NC at home. Patient's oxygen saturation 100 percent on 2 L NC.
--- NOTE | 2021-09-03 23:17 | PC.NURSE ---
Dr. Hnadley notified of patient c/o chest pain post-cath no intervention. Ordered to change Morphine from 4 mg to 2 mg, first dose now.
[2021-09-03] MEDS: morphine 4 mg/mL SDV 1 mL IVP (23:36)
[2021-09-04] VITALS (20 sets, daily range): BP systolic 106–177; BP diastolic 48–90; PULSE 58–90; RESP 10–20; TEMP 36.3; O2SAT 96–100
--- NOTE | 2021-09-04 00:04 | USCV_ITS ---
Alonso June Age: 46 Gender: M : 1975 Exam Date: 09/04/2021 00:10 Ordering Phys: Shelley Rdz MD Technologist: SHERYL Exam Location: [facility] Indication: Angina BP: / HR: 74 Rhythm: Sinus Technical Quality: Adequate MEASUREMENTS (Male / Female) Normal Values 2D ECHO LV Diastolic Diameter PLAX 3.9 cm 4.2 - 5.9 / 3.9 - 5.3 cm LV Systolic Diameter PLAX 3.0 cm IVS Diastolic Thickness 1.3 cm 0.6 - 1.0 / 0.6 - 0.9 cm IVS Systolic Thickness 1.7 cm LVPW Diastolic Thickness 1.9 cm 0.6 - 1.0 / 0.6 - 0.9 cm LVPW Systolic Thickness 1.9 cm LVOT Diameter 2.0 cm LV Ejection Fraction 2D Teich 40.7 % LV Ejection Fraction MOD 2C 65.8 % LV Ejection Fraction 2C AL 67.3 % LA Diameter 3.7 cm LA Width 5.0 cm LA Height 4.7 cm RA Width 3.9 cm RA Height 3.3 cm Aorta at Sinotubular Diameter 3.0 cm M-MODE Aortic Annulus Diameter 2.5 cm LA Ao Ratio MM 1.5 MV E Point Septal Separation 1.0 cm DOPPLER AV Peak Velocity 122.5 cm/s LVOT Peak Velocity 80.0 cm/s AV Area Cont Eq vti 2.1 cm squared AV Area Cont Eq pk 2.0 cm squared MV Area PHT 4.8 cm squared Mitral E to A Ratio 1.1 MV E' Velocity 53.0 cm/s Mitral E to MV E' Ratio 8.7 Mitral E to LV E' Lateral Ratio 7.9 Mitral E to LV E' Septal Ratio 9.7 TR Peak Velocity 149.0 cm/s TR Peak Gradient 8.9 mmHg Right Atrial Pressure 3.0 mmHg Pulmonary Artery Systolic Pressu 11.9 mmHg PV Peak Velocity 104.0 cm/s RV Acceleration Time 0.2 s RV Ejection Time 0.3 s RV AcT/ET 0.5 FINDINGS Left Ventricle Normal left ventricular size and systolic function, EF 63 %. Mild left ventricular hypertrophy. Right Ventricle The right ventricle is normal in size and function. Right Atrium The right atrium is normal in size. Left Atrium Mildly increased left atrial size. Mitral Valve Mild-moderate mitral valve regurgitation. Aortic Valve Mild aortic valve regurgitation. Tricuspid Valve Mild tricuspid valve regurgitation. Pulmonic Valve Pulmonic valve not well visualized. Pericardium No pleural effusion. Aorta Normal ascending aorta dimension. CONCLUSIONS Normal left ventricular size and systolic function, EF 63 %. Mild left ventricular hypertrophy. Mildly increased left atrial size. Mild-moderate mitral valve regurgitation. Mild tricuspid valve regurgitation. There is no pericardial effusion. There are no intracardiac masses. Estimated pulmonary artery peak systolic pressure was 12 mmHg No previous study is available for comparison. Dr Anatoliy Jean Baptiste MD [facility] (Electronically Signed) Final Date: 04 September 2021 15:03 S
--- NOTE | 2021-09-04 01:06 | PC.NURSE ---
Patient is resting in bed with eyes closed. Will continue to monitor.
--- NOTE | 2021-09-04 02:09 | PC.NURSE ---
Patient woke up from deep sleep and stated his chest still hurts. Patient stated, You haven't given me any Morphine since before I went for that procedure. Patient has been given Morphine since then and was notified and educated when he was given the Morphine. Patient states Do you have another sandwhich? That might help. When taking sandwhich to patient, patient was falling back sleep.
--- NOTE | 2021-09-04 03:33 | CTR_ITS ---
PROCEDURE INFORMATION: Exam: CT Head Without Contrast Exam date and time: 09/04/2021 3:33 AM Age: 46 years old Clinical indication: Injury or trauma; Fall; Blunt trauma (contusions or hematomas); Patient HX: Patient found on the floor by nurse. Lethargic. TECHNIQUE: Imaging protocol: Computed tomography of the head without contrast. Radiation optimization: All CT scans at this facility use at least one of these dose optimization techniques: automated exposure control; mA and/or kV adjustment per patient size (includes targeted exams where dose is matched to clinical indication); or iterative reconstruction. COMPARISON: No relevant prior studies available. RADIATION DOSE METRICS: Total DLP (mGy-cm): 878.05 FINDINGS: Brain: Normal. No hemorrhage. Unremarkable white matter. No mass effect. Cerebral ventricles: No ventriculomegaly. Paranasal sinuses: Visualized sinuses are unremarkable. No fluid levels. Mastoid air cells: Visualized mastoid air cells are well aerated. Bones/joints: Unremarkable. No acute fracture. Soft tissues: Unremarkable. CT/CT head wo con* [id number] IMPRESSION: No acute intracranial abnormality.
[2021-09-04 03:34] LABS: Basophils % 0.6 %; Hematocrit 34.1 % (42.0-52.0); Hemoglobin 10.7 g/dL (11.7-16.6); Lymphocytes # 0.4 10^3/uL (0.8-4.8); Lymphocytes % 11.7 %; Mean Corpuscular HGB Conc 31.4 g/dL (30.0-36.0); Mean Corpuscular Hemoglobin 25.8 pg (28.0-34.0); Mean Corpuscular Volume 82.2 fl (80-94); Mean Platelet Volume 12.2 fL (7.4-10.4); Monocytes # 0.1 10^3/uL (0.2-0.9); Monocytes % 3.5 %; Neutrophils # 2.64 10^3/uL (1.8-7.7); Neutrophils % 83.9 %; Nucleated Red Blood Cells % 0 %; Platelet Count 242 10^3/cmm (130-400); Red Blood Count 4.15 10^6/uL (4.1-5.3); Red Cell Distribution Width 14.5 % (12.1-15.1); White Blood Count 3.2 10^3/uL (4.0-10.0)
[2021-09-04 03:48] LABS: D Dimer 0.29 ug/mIFEU (0-0.59)
[2021-09-04 03:53] LABS: Alanine Aminotransferase 10 U/L (0-41); Albumin Level 4.2 g/dL (3.5-5.2); Alkaline Phosphatase 67 IU/L (40-130); Anion Gap 13.3 (5-19); Aspartate Amino Transferase 10 U/L (0-40); Blood Urea Nitrogen 13 mg/dL (6-20); Calcium 9.1 mg/dL (8.5-10.5); Carbon Dioxide 23 mmol/L (22-29); Chloride 103 mmol/L (98-107); Globulin 2.4 g/dL (1.3-4.6); Glomerular Filtration Rate 91.7 mL/min (90-130); Glucose 168 mg/dL (65-115); Osmolality Calculated 284 mOsm/kg (285-295); Potassium 4.3 mmol/L (3.5-5.1); Sodium 135 mmol/L (136-145); Total Bilirubin 0.2 mg/dL (0.15-1.2); Total Protein 6.6 g/dL (6.6-8.7)
--- NOTE | 2021-09-04 04:56 | W.PM.EVENTAC ---
Event Note Event Note: Around 3:30 in the morning fell down. Reported he hit his head to the nursing staff. Head hurts. Requested CT. He is moving all extremities. He reports he does not remember where he is, the year or his name. Reports chronic numbness and weakness in left upper extremity - states ever since his previous heart attack. Follow-up CT head. Bedrest and fall precautions.
--- NOTE | 2021-09-04 05:04 | PC.NURSE ---
Only two staff members on the floor in room 104 to clean patient. When I walked out of room 104, call light was going off on room 102. When walking in the room, patient was laying on the floor to the left of the bed. Patient was laying flat on his back with body straight and lined up with bed. Nurse asked patient if he tried to get up by hisself and fell. Patient states, no, I was trying to sit up. Nurse asks so you weren't trying to get out of bed, you were just trying to sit up? Patient states, yes. Patient was asked if he hit his head. Patient states, yes and it hurts. Dr. Mccurdy notified and director housekeeping. Head CT ordered. Patient pupils WNL with PERRLA. Oxygen saturation 100 percent on 2 L NC. Respiratory rate 14. Heart rate 64. Blood pressure 151/74. No visible injuries noted at this time. Nurse sternal rubbed patient while asking patient to respond and patient did not respond. Nurse asked patient, are you hurting? Patient responds, mmhhmm, yes. Nurse asked patient if he landed on his back or stomach. Patient states, I landed on my back. Nurse asked patient did you land flat on your back like we found you? Patient states I had just enough energy left to roll over. Nurse asks patient so you landed on your stomach and rolled onto your back? Patient states, I landed on my back.
--- NOTE | 2021-09-04 05:11 | PC.NURSE ---
Attempt to contact to notify about fall. No answer. Voicemail left asking her to call us back.
--- NOTE | 2021-09-04 05:20 | CTR_ITS ---
PROCEDURE INFORMATION: Exam: CT Angiography Head With Contrast, Arteriography Exam date and time: 09/04/2021 5:20 AM Age: 46 years old Clinical indication: Drowsiness or somnolence; Patient HX: Patient found on floor by nurse. Patient is severely lethargic and non verbal. ; Additional info: Fall, assess for vessel occlusion/dissection TECHNIQUE: Imaging protocol: Computed tomography angiography of the head with contrast. Exam focused on the arteries. 3D rendering (Not supervised by radiologist): MIP and/or 3D reconstructed images were created by the technologist. Radiation optimization: All CT scans at this facility use at least one of these dose optimization techniques: automated exposure control; mA and/or kV adjustment per patient size (includes targeted exams where dose is matched to clinical indication); or iterative reconstruction. Contrast material: VISI 320; Contrast volume: 95 ml; Contrast route: INTRAVENOUS (IV); COMPARISON: CT head wo con* [id number] 09/04/2021 3:56 AM RADIATION DOSE METRICS: Total DLP (mGy-cm): 2205.32 FINDINGS: ANTERIOR CIRCULATION: Right internal carotid artery: Unremarkable. Intracranial segment is patent with no significant stenosis. No aneurysm. Right middle cerebral artery: Unremarkable. No occlusion or significant stenosis. No aneurysm. Right anterior cerebral artery: Unremarkable. No occlusion or significant stenosis. No aneurysm. Left internal carotid artery: Unremarkable. Intracranial segment is patent with no significant stenosis. No aneurysm. Left middle cerebral artery: Unremarkable. No occlusion or significant stenosis. No aneurysm. Left anterior cerebral artery: Unremarkable. No occlusion or significant stenosis. No aneurysm. POSTERIOR CIRCULATION: Right vertebral artery: Unremarkable. No occlusion or significant stenosis. No aneurysm. Left vertebral artery: Unremarkable. No occlusion or significant stenosis. No aneurysm. Basilar artery: Unremarkable. No occlusion or significant stenosis. No aneurysm. Right posterior cerebral artery: Unremarkable. No occlusion or significant stenosis. No aneurysm. Left posterior cerebral artery: Unremarkable. No occlusion or significant stenosis. No aneurysm. Brain: No definite mass, mass effect, or midline shift. Cerebral ventricles: No ventriculomegaly. Bones/joints: Unremarkable. No acute fracture. Soft tissues: Unremarkable. PROCEDURE INFORMATION: Exam: CT Angiography Neck With Contrast Exam date and time: 09/04/2021 5:20 AM Age: 46 years old Clinical indication: Drowsiness or somnolence; Patient HX: Patient found on floor by nurse. Patient is severely lethargic and non verbal. ; Additional info: Fall, assess for vessel occlusion/dissection TECHNIQUE: Imaging protocol: Computed tomography angiography of the neck with contrast. 3D rendering (Not supervised by radiologist): MIP and/or 3D reconstructed images were created by the technologist. Radiation optimization: All CT scans at this facility use at least one of these dose optimization techniques: automated exposure control; mA and/or kV adjustment per patient size (includes targeted exams where dose is matched to clinical indication); or iterative reconstruction. Contrast material: VISI 320; Contrast volume: 95 ml; Contrast route: INTRAVENOUS (IV); COMPARISON: CT head wo con* [id number] 09/04/2021 3:56 AM RADIATION DOSE METRICS: Total DLP (mGy-cm): 2205.32 FINDINGS: Right common carotid artery: No stenosis. No dissection or occlusion. Right internal carotid artery: No stenosis of the extracranial segment. No dissection or occlusion. Right external carotid artery: No occlusion or stenosis of the origin. Left common carotid artery: No stenosis. No dissection or occlusion. Left internal carotid artery: No stenosis of the extracranial segment. No dissection or occlusion. Left external carotid artery: No occlusion or stenosis of the origin. Right vertebral artery: No stenosis. No dissection or occlusion. Left vertebral artery: No stenosis. No dissection or occlusion. Soft tissues: Normal. No significant soft tissue swelling. Bones/joints: No acute fracture. CT/CT angio headneck* [id number] IMPRESSION: No large vessel stenosis or occlusion. IMPRESSION: No stenosis or occlusion. REFERENCES: NASCET CRITERIA. The degree of internal carotid artery stenosis is based on NASCET criteria. Normal is no stenosis. Mild is less than 50% stenosis. Moderate is 50-69% stenosis. Severe is 70% to 99% stenosis. Total occlusion is no detectable patent lumen.
--- NOTE | 2021-09-04 05:20 | MR_ITS ---
WS: [id number] MRI HEAD WITHOUT CONTRAST TECHNIQUE: Sagittal T1, T2 axial, T2 axial FLAIR, axial and coronal T1 images, axial susceptibility w eighted imaging, axial diffusion weighted images, and coronal T2 images were obtained. CLINICAL INFORMATION: neuro symptoms after fall COMPARISON: CT September 04, 2021 FINDINGS: No evidence of restricted diffusion to suggest acute ischemia. Ventricular system and basal cisterns are patent. No suspicious intracranial signal abnormalities. Normal posterior fossa. Normal vascular flow voids at the skull base. No extra-axial fluid collections. No evidence of mass or mass effect. Paranasal sinuses and mastoid air cells well aerated. No hemosiderin on susceptibly weighted images. Normal optic chiasm and pituitary infundibulum. Temporal lobes and hippocampal formations are normal in appearance.Tiny chronic lacunar infarct or prominent perivascular space LEFT cerebral peduncle. MR/MR head wo con* [id number] IMPRESSION: 1. No evidence of restricted diffusion to suggest acute ischemia. 2. No suspicious intracranial signal abnormalities. Normal jimenez-white differen tiation. 3. Tiny chronic lacunar infarct or prominent perivascular space LEFT cerebral peduncle. 4. No hemosiderin on susceptibly weighted images. 5. No acute intracranial findings.
[2021-09-04] MEDS: ondansetron 2 mg/ML SDV 2 mL 4 MG IVP ×2 (05:47→14:56)
[2021-09-04] MEDS: diphenhydrAMINE 50 mg/mL SDV 1mL 25 MG IVP (05:47)
[2021-09-04 05:48] LABS: Glucose Point of Care 146 mg/dL (70-110)
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
--- NOTE | 2021-09-04 05:50 | PC.NURSE ---
Patient states that he feels dizzy, he can't see, and he can't breathe. VSS. Oxygen saturation 99 percent on 2 L NC. Lungs clear and RR 16. Pupils WNL with PERRLA. Dr. Mccurdy notified of patient's complaints.
[2021-09-04] MEDS: iodixanol 320 mg/mL 100mL Btl IV (06:15)
[2021-09-04] MEDS: insulin lispro 100 unit/1 mL SUBCUT (08:19)
[2021-09-04] MEDS: lisinopril 10 mg Tablet PO (08:20)
[2021-09-04] MEDS: aspirin 81 mg EC Tablet PO (08:20)
[2021-09-04] MEDS: sennosides-docusate Tablet 1 TAB PO (08:20)
[2021-09-04] MEDS: clopidogrel 75 mg Tablet PO (08:20)
[2021-09-04] MEDS: ALPRAZolam 0.5 mg Tablet 0.25 MG PO (08:20)
[2021-09-04] MEDS: metoprolol succinate ER (24 HR) 25 mg Tablet PO (08:20)
--- NOTE | 2021-09-04 09:24 | PC.NURSE ---
to mri via w/c at this time
--- NOTE | 2021-09-04 10:02 | PC.CHAP ---
Pastoral Care Encounter/Spiritual Assessment Type of Contact [] Declined cloth booker visit [] Patient/Family/Request visit [] Outpatient visit [] Follow-up visit [] Physician referral [] Code/Alert [x] Routine visit [] Staff referral [] Actively dying [] Patient sleeping [] Family support [] [] Out of room [] Palliative care [] [x] Receiving care in room [] Pre-surgical visit [] Trauma [x] Long length of stay [] ICU visit [] Other: Relational/Emotional Strength [] Patient feels connected with others/family/visitors/staff [x] Distress [] Loneliness/isolation [] Abandonment Spirituality of Patient [x] Person of Kiersten [] Attends Jehovah'S Witness of their Kiersten [x] Believes in Prayer [] Reads Bible or Amish materials [] There are Spiritual issues to be addressed Elementary Instructional Coach Interventions [x] Prayer [x] Active listening [x] Non-anxious presence [x] Spiritual/emotional support [] Crisis/trauma care [x] Spiritual counseling [] Bereavement support [] Provided bereavement packet [] Provided Bible/devotional materials [] Provided toy/stuffed animal, coloring book to patient or family member [] Provided Communion [] Anointing/Aulander [] Salvation [x] Completed spiritual assessment [] Other: Impact on Illness or Injury [] Angry [] Fearful [x] Anxious [] Often cries [] Exhaustion [x] Unable to work [] Unable to attend quaker [] Unable to walk/stand [] Unable to read [] Unable to drive [] Unable to eat/drink [] Unable to sleep [] Unable to be with family [] Patient intubated [] Other: Summary chest pain witing on tests doesn't about his helen at this point, has negetive feelings Time spent with patient 10 mins
--- NOTE | 2021-09-04 10:43 | PC.NURSE ---
mri completed.pt states he passed out during mri.
[2021-09-04 11:01] LABS: Glucose Point of Care 130 mg/dL (70-110)
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
[2021-09-04] MEDS: morphine 4 mg/mL SDV 1 mL IVP ×2 (12:08→16:19)
[2021-09-04 12:17] LABS: Vitamin B12 406 pg/mL (232-1245)
[2021-09-04 12:59] LABS: Folate Level 7.3 ng/mL (4.5-32.2)
[2021-09-04 13:51] LABS: Amphetamines Screen Urine Negative (Negative); Barbiturates Screen Urine Positive (Negative); Benzodiazepines Screen Urine Positive (Negative); Cocaine Screen Urine Negative (Negative); Opiate Screen Urine Positive (Negative); PCP Screen Urine Negative (Negative); THC Screen Urine Negative (Negative)
--- NOTE | 2021-09-04 16:53 | PC.NURSE ---
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
--- NOTE | 2021-09-04 17:39 | PM.PN ---
Subjective Subjective: Patient had the emergency cardiac catheterization yesterday. He was found to have patent stented segments with no significant stenotic lesions. The chest pain was thought to be noncardiac in origin. This morning he is complaining of some blurring of vision and headaches. For that he had an MRI of the head. He also had a CT of the head and neck. He was found no significant stenotic lesions. No evidence of any ischemia in the MRI. Medications: Medication Review Details: Laboratory Last Values Current Medications Acetaminophen (Acetaminophen 500 Mg Tablet) 500 mg PO Q4H PRN PRN Reason: fever Acetaminophen (Acetaminophen 325 Mg Tablet) 650 mg PO Q6H PRN PRN Reason: MILD PAIN Last Admin: 09/03/21 22:00 Dose: 650 mg Documented by: Al Hydrox/Mg Hydrox/Simethicone (Csfp-Uft-Rharwjxqf-Parish 30 Ml Udc) 30 ml PO Q15M PRN PRN Reason: INDIGESTION Albuterol/Ipratropium (Ipratropium-Albuterol 3 Ml Neb) 3 ml INHALATION Q6H.RESPIRATORY PRN PRN Reason: SHORTNESS OF BREATH Alprazolam (Alprazolam 0.5 Mg Tablet) 0.25 mg PO TID PRN PRN Reason: ANXIETY Last Admin: 09/04/21 08:20 Dose: 0.25 mg Documented by: Aspirin (Aspirin 81 Mg Ec Tablet) 81 mg PO DAILY [facility] Last Admin: 09/04/21 08:20 Dose: 81 mg Documented by: Atorvastatin Calcium (Atorvastatin 40 Mg Tablet) 80 mg PO BEDTIME [facility] Last Admin: 09/03/21 21:44 Dose: 80 mg Documented by: Atropine Sulfate (Atropine 1 Mg/Ml Sdv 1 Ml) 0.5 mg IVP PRN PRN PRN Reason: Symptomatic bradycardia Clopidogrel Bisulfate (Clopidogrel 75 Mg Tablet) 75 mg PO DAILY [facility] Last Admin: 09/04/21 08:20 Dose: 75 mg Documented by: Dextrose (Dextrose 50% Syringe 50 Ml) 25 ml IVP ONCE PRN; Protocol PRN Reason: hypoglycemia protocol Dextrose (Dextrose 50% Syringe 50 Ml) 50 ml IVP PRN PRN; Protocol PRN Reason: hypoglycemia protocol Fentanyl (Fentanyl 50 Mcg/Ml Inj 2ml) 50 mcg IVP PRN PRN PRN Reason: PAIN Glucagon (Glucagon 1 Mg/Ml Inj 1 Ml) 1 mg IM ONCE PRN; Protocol PRN Reason: Adult Acute Hypoglycemia Prot. Nitroglycerin/Dextrose (Nitroglycerin Drip) 50 mg in 250 mls @ 0 mls/hr IV .Q0M [facility]; Protocol Last Titration: 09/03/21 20:29 Dose: 0 mcg/min, 0 mls/hr Documented by: Dextrose (D5w) 500 mls @ 100 mls/hr IV ONCE PRN; Protocol PRN Reason: Adult Acute Hypoglycemia Prot Insulin Human Lispro (Insulin Lispro 100 Unit/1 Ml) 0 unit SUBCUT TIDWM [facility]; Protocol Last Admin: 09/04/21 16:58 Dose: Not Given Documented by: Lisinopril (Lisinopril 10 Mg Tablet) 10 mg PO DAILY [facility] Last Admin: 09/04/21 08:20 Dose: 10 mg Documented by: Magnesium Hydroxide (Magnesium Hydroxide 30 Ml Udc) 30 ml PO DAILY PRN PRN Reason: CONSTIPATION Metoprolol Succinate (Metoprolol Succinate Er (24 Hr) 25 Mg Tablet) 25 mg PO DAILY [facility] Last Admin: 09/04/21 08:20 Dose: 25 mg Documented by: Morphine Sulfate (Morphine 4 Mg/Ml Sdv 1 Ml) 4 mg IVP Q4H PRN PRN Reason: SEVERE PAIN Last Admin: 09/04/21 16:19 Dose: 4 mg Documented by: Naloxone HCl (Naloxone 0.4 Mg/Ml Sdv) 0.1 mg IVP Q2M PRN PRN Reason: RESPIRATORY RATE < 8/MIN Nitroglycerin (Nitroglycerin 0.4 Mg Sublingual Tablet) 0.4 mg SUBLINGUAL Q5M PRN PRN Reason: CHEST PAIN Ondansetron HCl (Ondansetron 2 Mg/Ml Sdv 2 Ml) 4 mg IVP Q6H PRN PRN Reason: NAUSEA AND VOMITING Last Admin: 09/04/21 14:56 Dose: 4 mg Documented by: Senna/Docusate Sodium (Sennosides-Docusate Tablet) 1 tab PO DAILY [facility] Last Admin: 09/04/21 08:20 Dose: 1 tab Documented by: Temazepam (Temazepam 15 Mg Capsule) 15 mg PO BEDTIME PRN PRN Reason: INSOMNIA Last Admin: 09/03/21 21:44 Dose: 15 mg Documented by: Vitals/I&O/Wt Last Vital Signs Temp 97.4 F L 09/04/21 07:15 Pulse 72 09/04/21 16:35 Resp 16 09/04/21 16:35 BP 107/48 09/04/21 16:35 Pulse Ox 99 09/04/21 16:35 09/04/21 09/04/21 09/04/21 06:59 14:59 22:59 Output Total 575 / 850 325 / 325 Balance -575 / -787.5 -325 / -325 Weight last 48 hrs Weight 145 lb Weight 145 lb Physical Exam Narrative: GENERAL: The patient is alert and oriented times three. Not in any acute distress. HEENT: No significant pallor, icterus or lymphadenopathy. The pupils are symmetrical NECK: Trachea appears to be central. No masses noted. No JVD or thyromegaly appreciated. No carotid bruit. RESPIRATORY: Chest is symmetrical. No intercostals muscle retraction or any accessory muscle activation. There is no chest wall tenderness. Breath sounds are heard bilaterally. No rales or rhonchi heard. No evidence of any consolidation. BREASTS: Deferred. HEART: The PMI is in the 5th left intercostals space just inside the midclavicular line. No palpable precordial events. S1 and S2 are normal. No S3 or S4 heard. No pericardial rub or any click heard. ABDOMEN: No vessel pulsations or distention. No tenderness. No organomegaly appreciated. No abdominal bruit. Bowel sounds are normally heard. : Deferred. RECTAL: Deferred. LYMPHATIC: No lymphadenopathy noted in the neck or groin. EXTREMITIES: No edema or cyanosis. No clubbing. The pulses are symmetrical bilaterally. The radial, femoral, dorsalis pedis and the posterior tibial pulses are palpated and found to be in good volume and amplitude. Extensive tattoo stevens in the upper extremities. MUSCULOSKELETAL: No acute joint deformities or swelling SKIN: There are no significant scars or skin rash noted. NEUROPSYCHIATRIC: Patient is somewhat withdrawn and has poor eye contact. No focal motor deficits. Data : 09/04/21 03:05 09/04/21 03:05 Other Labs: Laboratory Last Values WBC 3.2 10^3/uL (4.0-10.0) L 09/04/21 03:05 RBC 4.15 10^6/uL (4.1-5.3) 09/04/21 03:05 Hgb 10.7 g/dL (11.7-16.6) L 09/04/21 03:05 Hct 34.1 % (42.0-52.0) L 09/04/21 03:05 MCV 82.2 fl (80-94) 09/04/21 03:05 MCH 25.8 pg (28.0-34.0) L 09/04/21 03:05 MCHC 31.4 g/dL (30.0-36.0) 09/04/21 03:05 RDW 14.5 % (12.1-15.1) 09/04/21 03:05 Plt Count 242 10^3/cmm (130-400) 09/04/21 03:05 MPV 12.2 fL (7.4-10.4) H 09/04/21 03:05 Neut % (Auto) 83.9 % 09/04/21 03:05 Lymph % (Auto) 11.7 % 09/04/21 03:05 [place] % (Auto) 3.5 % 09/04/21 03:05 Eos % (Auto) 0.0 % 09/04/21 03:05 Baso % (Auto) 0.6 % 09/04/21 03:05 Neut # (Auto) 2.64 10^3/uL (1.8-7.7) 09/04/21 03:05 Lymph # (Auto) 0.4 10^3/uL (0.8-4.8) L 09/04/21 03:05 [place] # (Auto) 0.1 10^3/uL (0.2-0.9) L 09/04/21 03:05 Eos # (Auto) 0.0 10^3/uL (0.0-0.8) 09/04/21 03:05 Baso # (Auto) 0.0 10^3/uL (0.0-0.1) 09/04/21 03:05 Nucleated RBC % (auto) 0 % 09/04/21 03:05 Nucleated RBCs # 0.0 /100WBC 09/04/21 03:05 D-Dimer 0.29 ug/mIFEU (0-0.59) 09/04/21 03:05 Sodium 135 mmol/L (136-145) L 09/04/21 03:05 Potassium 4.3 mmol/L (3.5-5.1) 09/04/21 03:05 Chloride 103 mmol/L (98-107) 09/04/21 03:05 Carbon Dioxide 23 mmol/L (22-29) 09/04/21 03:05 Anion Gap 13.3 (5-19) 09/04/21 03:05 BUN 13 mg/dL (6-20) 09/04/21 03:05 Creatinine 0.9 mg/dL (0.7-1.2) 09/04/21 03:05 GFR Calculation 91.7 mL/min (90-130) 09/04/21 03:05 Glucose 168 mg/dL (65-115) H 09/04/21 03:05 POC Glucose 130 mg/dL (70-110) H 09/04/21 10:55 Estimat Average Glucose 82 09/03/21 13:35 Hemoglobin A1c 4.5 % (4.0-6.0) 09/03/21 13:35 Calculated Osmolality 284 mOsm/kg (285-295) L 09/04/21 03:05 Calcium 9.1 mg/dL (8.5-10.5) 09/04/21 03:05 Total Bilirubin 0.2 mg/dL (0.15-1.2) 09/04/21 03:05 AST 10 U/L (0-40) 09/04/21 03:05 ALT 10 U/L (0-41) 09/04/21 03:05 Alkaline Phosphatase 67 IU/L (40-130) 09/04/21 03:05 Creatine Kinase 142 U/L (39-308) 09/03/21 13:39 Troponin T Baseline 27 ng/L (0-15) H 09/03/21 13:35 Troponin T 120 Minute 27.49 ng/L (0-15) H 09/03/21 15:32 Delta Troponin T 0.49 ABS# (0-10) 09/03/21 15:32 Total Protein 6.6 g/dL (6.6-8.7) 09/04/21 03:05 Albumin 4.2 g/dL (3.5-5.2) 09/04/21 03:05 Globulin 2.4 g/dL (1.3-4.6) 09/04/21 03:05 Triglycerides 139 mg/dL (0-150) 09/03/21 13:35 Cholesterol 148 mg/dL (0-200) 09/03/21 13:35 LDL Cholesterol, Calc 78 mg/dL (50-129) 09/03/21 13:35 HDL Cholesterol 42 mg/dL (60-100) L 09/03/21 13:35 LDL/HDL Ratio 1.86 RATIO (0.00-3.22) 09/03/21 13:35 Cholesterol/HDL Ratio 3.52 mg/dL (1.0-5.00) 09/03/21 13:35 Vitamin B12 406 pg/mL (232-1245) 09/04/21 03:05 Folate 7.3 ng/mL (4.5-32.2) 09/04/21 12:01 TSH 0.32 uIU/mL (0.27-4.20) 09/03/21 13:35 Urine Opiates Screen Positive ng/mL (Negative) H 09/04/21 13:00 Ur Barbiturates Screen Positive ng/mL (Negative) H 09/04/21 13:00 Ur Phencyclidine Scrn Negative ng/mL (Negative) 09/04/21 13:00 Ur Amphetamines Screen Negative ng/mL (Negative) 09/04/21 13:00 U Benzodiazepines Scrn Positive ng/mL (Negative) H 09/04/21 13:00 Urine Cocaine Screen Negative ng/mL (Negative) 09/04/21 13:00 U Marijuana (THC) Screen Negative ng/mL (Negative) 09/04/21 13:00 A&P Assessment and plan (1) Atherosclerotic heart disease of [place] coronary artery with unstable angina pectoris: Most likely the patient's chest pain is noncardiac. Apparently he had a similar type of pain after the stenting also. A musculoskeletal component is a consideration. A psychosomatic issue also should be considered. Status: Acute (2) Benign essential HTN: Currently the blood pressure is in the normal range. May continue on the current medications. Status: Acute (3) Dyslipidemia (high LDL; low HDL): Continue on the current medications. Status: Acute (4) Diabetes: Is a blood sugar need to be closely monitored. Status: Acute (5) Anemia: The anemia seems to be stable. Status: Acute Plan The cardiac catheterization was reviewed. Patient was found to have a patent stented segments of the mid to distal LAD and the diagonal artery. He has mild to moderate diffuse disease in the other vessels. 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
--- NOTE | 2021-09-04 20:45 | CTR_ITS ---
PROCEDURE INFORMATION: Exam: CT Head Without Contrast Exam date and time: 09/04/2021 9:47 PM Age: 46 years old Clinical indication: Injury or trauma; Fall; Blunt trauma (contusions or hematomas) TECHNIQUE: Imaging protocol: Computed tomography of the head without contrast. Radiation optimization: All CT scans at this facility use at least one of these dose optimization techniques: automated exposure control; mA and/or kV adjustment per patient size (includes targeted exams where dose is matched to clinical indication); or iterative reconstruction. COMPARISON: MR head wo con* [id number] 09/04/2021 9:31 AM RADIATION DOSE METRICS: Total DLP (mGy-cm): 899.89 FINDINGS: Brain: No acute intracranial hemorrhage or mass effect. No definite acute infarct by CT. Cerebral ventricles: Ventricle size is normal for age. Paranasal sinuses: Included paranasal sinuses are essentially clear. Mastoid air cells: No significant acute finding. Vasculature: Vascular calcifications in the internal carotid and vertebral basilar systems. Bones/joints: No definite acute skull fracture. Soft tissues: No significant acute finding. CT/CT head wo con* [id number] IMPRESSION: 1. No acute intracranial hemorrhage or mass effect. 2. Other findings discussed above.
[2021-09-04] MEDS: atorvastatin 40 mg Tablet 80 MG PO (21:21)
[2021-09-05] MEDS: temazepam 15 mg Capsule PO (00:10)
[2021-09-05 00:13] VITALS: BP 110/48; PULSE 78; RESP 17; O2SAT 98
[2021-09-05 00:34] LABS: Glucose Point of Care 146 mg/dL (70-110)
--- NOTE | 2021-09-05 01:27 | PC.NURSE ---
Addendum entered by Hanh Uriarte RN 09/05/21 01:46: Event occurred at approximately 2030 on 09/04/2021 Original Note: Pt was found on floor beside bed. Pt got up independently and got back in bed. Upon assessment Pt had no s/s of injury. Dr Mccurdy notified. Order was put in for head CT. No further orders given. Pt now lying in bed resting and talking to staff. Call light in reach. Bed alarm set. Pt teaching was given on medications that could increase fall risk. Will continue to monitor.
[2021-09-05 06:00] VITALS: PULSE 70
[2021-09-05 07:07] VITALS: BP 126/58; PULSE 63; RESP 15; O2SAT 100
[2021-09-05 07:45] LABS: Glucose Point of Care 103 mg/dL (70-110)
[2021-09-05 08:20] LABS: Basophils % 0.3 %; Eosinophils # 0.1 10^3/uL (0.0-0.8); Eosinophils % 0.9 %; Hematocrit 33.3 % (42.0-52.0); Hemoglobin 10.3 g/dL (11.7-16.6); Lymphocytes # 2.6 10^3/uL (0.8-4.8); Lymphocytes % 32.3 %; Mean Corpuscular HGB Conc 30.9 g/dL (30.0-36.0); Mean Corpuscular Hemoglobin 26.1 pg (28.0-34.0); Mean Corpuscular Volume 84.3 fl (80-94); Mean Platelet Volume 12.4 fL (7.4-10.4); Monocytes # 0.9 10^3/uL (0.2-0.9); Monocytes % 10.7 %; Neutrophils # 4.38 10^3/uL (1.8-7.7); Neutrophils % 55.3 %; Nucleated Red Blood Cells % 0 %; Platelet Count 226 10^3/cmm (130-400); Red Blood Count 3.95 10^6/uL (4.1-5.3); Red Cell Distribution Width 14.6 % (12.1-15.1); White Blood Count 7.9 10^3/uL (4.0-10.0)
[2021-09-05 08:30] LABS: Alanine Aminotransferase 10 U/L (0-41); Albumin Level 3.9 g/dL (3.5-5.2); Alkaline Phosphatase 57 IU/L (40-130); Anion Gap 13.7 (5-19); Aspartate Amino Transferase 9 U/L (0-40); Blood Urea Nitrogen 18 mg/dL (6-20); Calcium 8.8 mg/dL (8.5-10.5); Carbon Dioxide 24 mmol/L (22-29); Chloride 103 mmol/L (98-107); Globulin 2.4 g/dL (1.3-4.6); Glucose 100 mg/dL (65-115); Osmolality Calculated 286 mOsm/kg (285-295); Potassium 3.7 mmol/L (3.5-5.1); Sodium 137 mmol/L (136-145); Total Bilirubin 0.2 mg/dL (0.15-1.2); Total Protein 6.3 g/dL (6.6-8.7)
--- NOTE | 2021-09-05 08:59 | ECG_ITS ---
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 Measurements Intervals [place] Rate: 81 P: 63 [place]: 146 QRS: 57 QRSD: 88 T: 42 QT: 341 QTc: 398 Interpretive Statements SINUS RHYTHM MINIMAL VOLTAGE CRITERIA FOR LVH, CONSIDER NORMAL VARIANT [MEETS CRITERIA IN ONE OF: R(aVL), S(V1), R(V5), R(V5/V6)+S(V1)] Compared to ECG 09/03/2021 18:14:21 No significant changes Electronically Signed On 09-05-2021 20:12:20 CDT by Heath Pacheco M.D. [id number]
[2021-09-05] MEDS: clopidogrel 75 mg Tablet PO (09:15)
[2021-09-05] MEDS: sennosides-docusate Tablet 1 TAB PO (09:15)
[2021-09-05] MEDS: lisinopril 10 mg Tablet PO (09:16)
[2021-09-05] MEDS: aspirin 81 mg EC Tablet PO (09:16)
[2021-09-05] MEDS: ALPRAZolam 0.5 mg Tablet 0.25 MG PO (09:16)
[2021-09-05] MEDS: metoprolol succinate ER (24 HR) 25 mg Tablet PO (09:16)
[2021-09-05 09:47] VITALS: RESP 16; O2SAT 99
[2021-09-05] MEDS: morphine 4 mg/mL SDV 1 mL IVP (09:47)
[2021-09-05] MEDS: colchicine 0.6 mg Tablet PO (10:02)
[2021-09-05 10:49] LABS: Glucose Point of Care 79 mg/dL (70-110)
[2021-09-05 10:58] VITALS: BP 117/62; PULSE 71; RESP 15; O2SAT 95
--- NOTE | 2021-09-05 11:16 | PC.NURSE ---
Addendum entered by Opal Schafer RN 09/05/21 11:24: DR BAILEY ALSO ORDERED A GI COCKTAIL THAT PT REFUSED.MSO4 GIVEN IV..SOME RELIEF OF CHEST PAIN REPORTED. Original Note: PT C/O CHEST PAIN AT 0900 RATING 10/10.LEFT CHEST.NO RADIATION.STATES IS SAME TYPE OF PAIN HAS HAD.VSS.NO DIAPHORESIS OR NAUSEA OR SOB.DR BAILEY NOTIFIED.HE ORDERED AN EKG,COLCHICINE AND TRAMADOL.ALSO PT AND OT REFERRAL.
--- NOTE | 2021-09-05 11:43 | P.DS_ITS ---
Discharge Providers Date of Admission: 09/03/21 18:33 Date of Discharge: September 05, 2021 Attending Provider at Admission: Shelley Rdz MD Attending Provider at Discharge: Hector Rosado MD Primary Care Provider: [facility] Diagnoses at Discharge Discharge Diagnosis (1) Atherosclerotic heart disease of [place] coronary artery with unstable angina pectoris: Status: Acute (2) Benign essential HTN: Status: Acute (3) Dyslipidemia (high LDL; low HDL): Status: Acute (4) Diabetes: Status: Acute (5) Anemia: Status: Acute Reason for Visit Reason for Visit: Chest pain Hospital Course Hospital Course This is a 46-year-old, with a past medical history of multiple hospital admissions for chest pain, CAD, history of multiple stents, recently had a hospitalization at [facility] on 08/31/2009 for chest pain, cath report from August 12, 2021 showed left main, left anterior descending, diagonal and right posterior descending artery patent. Stents in LAD, diagonal and right PDA were patent. IFR was performed to the left main, distal LAD, left circumflex all found to be hemodynamically insignificant. Does have small vessel CAD which is not amenable to PCI or CABG this should be treated medically. In addition he had another angiogram on 07/12/2021 left heart cath no new findings. During that hospitalization he was also noted to have left sided weakness, had a CT of the head which was negative, also had a EEG which was within normal limits, however did have an EEG on 07/01/2021 which showed abnormal awake and sleep EEG, generalized likely indicating underlying seizure disorder. Also had EMGs nerve conduction studies of bilateral lower extremities which showed no dee ctrodiagnostic evidence of median/ulnar neuropathy plexopathy or radiculopathy.he also has bdisorder, CHF, COPD, hypertension. 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 Continue medical management aspirin, Plavix, statin, Imdur, Ranexa, metoprolol. Patient continued to have intermittent complaints of chest pain possible component related to pericarditis or chest wall inflammation, has an intolerance to Toradol and NSAIDs anaphylaxis, will try low-dose colchicine for the next 7 days. Follow-up with primary care provider as outpatient. Patient also had complaints of intermittent paresthesias in left upper and left lower extremity weakness, CT of the head no acute stroke, CT of the head no acute findings, MRI of the brain, no acute findings. During my examination the morning of 09/05/2021, upon entering the room, patient was playing on his cell phone, using both upper and lower extremities. Upon immediately asking about his stroke symptoms he started complaining of weakness in the left upper extremity and left lower extremity. 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 Denies any needs. During his hospitalizations he did have 2 falls during the night, he tells me he does not know why he is falling, he tells me that he falls at home, but he is not sure why. During my examination left upper extremity strength was 4-5 compared to 5/5 on the right. No significant difference in left lower or right lower extremity strength. I will have physical therapy work with patient. 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 He currently denies any suicidal ideation, no homicide ideation, denies seeing or hearing things are not there, denies feeling down depressed or sad. Physical Exam Const: COMMON NORMALS: no acute distress and patient oriented x3 Resp: COMMON NORMALS: normal respiratory effort, No retractions, No use of accessory muscles and clear to auscultation bilaterally AUSCULTATION: clear to auscultation bilaterally Cardio: COMMON NORMALS: regular rate, regular rhythm, S1 normal heart sound pr esent and S2 normal heart sound present RATE: regular rate RHYTHM: regular rhythm HEART SOUNDS: S1 normal heart sound present and S2 normal heart sound present GI: COMMON NORMALS: Normal to inspection, nondistended, normoactive bowel sounds present, Soft to palpation, non-tender and No hepatosplenomegaly present PALPATION: Yes Soft to palpation and Yes No hepatosplenomegaly present Extremity: COMMON NORMALS: no pedal edema Neuro: COMMON NORMALS: patient oriented x3, CN's II-XII intact bilaterally, moves all extremities and no sensory deficits noted OTHER: Left upper extremity strength, 4-5, left lower extremity strength 5 out of 5 Psych: COMMON NORMALS: mental status grossly normal Discharge Data Studies Completed and Pending Completed Studies During Hospitalization Category Date Time Status CT head wo con* [id number] Routine Cat Scan 09/04/21 03:[address] head wo con* [id number] Routine Cat Scan 09/04/21 20:45 Completed CTA head neck [CT angio headneck* [id number]] Stat Cat Scan 09/04/21 05:20 Completed XR chest 1V portable [id number] Stat Exams 09/03/21 13:24 Completed MR head wo con* [id number] Routine MRI 09/04/21 05:20 Completed CV. echo complete* [id number] Routine Ultrasound 09/04/21 00:04 Completed Pending at discharge Category Date Time Status CORPORATE SECRETARY request for service Routine Exams 09/03/21 19:20 Taken Complete Blood Count w/Auto AM LABS Lab 09/06/21 04:00 Ordered Complete Blood Count w/Auto AM LABS Lab 09/07/21 04:00 Ordered Comprehensive Metabolic Panel AM LABS Lab 09/06/21 04:00 Ordered Comprehensive Metabolic Panel AM LABS Lab 09/07/21 04:00 Ordered Lead Serum Routine Lab 09/04/21 12:01 Received Radiology Impressions Chest X-Ray 09/03/21 13:24 IMPRESSION: No acute findings. Head MRI 09/04/21 05:20 IMPRESSION: 1. No evidence of restricted diffusion to suggest acute ischemia. 2. No suspicious intracranial signal abnormalities. Normal jimenez-white different iation. 3. Tiny chronic lacunar infarct or prominent perivascular space LEFT cerebral peduncle. 4. No hemosiderin on susceptibly weighted images. 5. No acute intracranial findings. Head/Neck CTA 09/04/21 05:20 IMPRESSION: No large vessel stenosis or occlusion. IMPRESSION: No stenosis or occlusion. REFERENCES: NASCET CRITERIA. The degree of internal carotid artery stenosis is based on NASCET criteria. Normal is no stenosis. Mild is less than 50% stenosis. Moderate is 50-69% stenosis. Severe is 70% to 99% stenosis. Total occlusion is no detectable patent lumen. Head CT 09/04/21 20:45 IMPRESSION: 1. No acute intracranial hemorrhage or mass effect. 2. Other findings discussed above. Laboratory Results WBC 7.9 10^3/uL (4.0-10.0) 09/05/21 07:56 RBC 3.95 10^6/uL (4.1-5.3) L 09/05/21 07:56 Hgb 10.3 g/dL (11.7-16.6) L 09/05/21 07:56 Hct 33.3 % (42.0-52.0) L 09/05/21 07:56 MCV 84.3 fl (80-94) 09/05/21 07:56 MCH 26.1 pg (28.0-34.0) L 09/05/21 07:56 MCHC 30.9 g/dL (30.0-36.0) 09/05/21 07:56 RDW 14.6 % (12.1-15.1) 09/05/21 07:56 Plt Count 226 10^3/cmm (130-400) 09/05/21 07:56 MPV 12.4 fL (7.4-10.4) H 09/05/21 07:56 Neut % (Auto) 55.3 % 09/05/21 07:56 Lymph % (Auto) 32.3 % 09/05/21 07:56 Kimble % (Auto) 10.7 % 09/05/21 07:56 Eos % (Auto) 0.9 % 09/05/21 07:56 Baso % (Auto) 0.3 % 09/05/21 07:56 Neut # (Auto) 4.38 10^3/uL (1.8-7.7) 09/05/21 07:56 Lymph # (Auto) 2.6 10^3/uL (0.8-4.8) 09/05/21 07:56 Kimble # (Auto) 0.9 10^3/uL (0.2-0.9) 09/05/21 07:56 Eos # (Auto) 0.1 10^3/uL (0.0-0.8) 09/05/21 07:56 Baso # (Auto) 0.0 10^3/uL (0.0-0.1) 09/05/21 07:56 Nucleated RBC % (auto) 0 % 09/05/21 07:56 Nucleated RBCs # 0.0 /100WBC 09/05/21 07:56 D-Dimer 0.29 ug/mIFEU (0-0.59) 09/04/21 03:05 Sodium 137 mmol/L (136-145) 09/05/21 07:56 Potassium 3.7 mmol/L (3.5-5.1) 09/05/21 07:56 Chloride 103 mmol/L (98-107) 09/05/21 07:56 Carbon Dioxide 24 mmol/L (22-29) 09/05/21 07:56 Anion Gap 13.7 (5-19) 09/05/21 07:56 BUN 18 mg/dL (6-20) 09/05/21 07:56 Creatinine 0.8 mg/dL (0.7-1.2) 09/05/21 07:56 GFR Calculation 105.0 mL/min (90-130) 09/05/21 07:56 Glucose 100 mg/dL (65-115) 09/05/21 07:56 POC Glucose 79 mg/dL (70-110) 09/05/21 10:41 Estimat Average Glucose 82 09/03/21 13:35 Hemoglobin A1c 4.5 % (4.0-6.0) 09/03/21 13:35 Calculated Osmolality 286 mOsm/kg (285-295) 09/05/21 07:56 Calcium 8.8 mg/dL (8.5-10.5) 09/05/21 07:56 Total Bilirubin 0.2 mg/dL (0.15-1.2) 09/05/21 07:56 AST 9 U/L (0-40) 09/05/21 07:56 ALT 10 U/L (0-41) 09/05/21 07:56 Alkaline Phosphatase 57 IU/L (40-130) 09/05/21 07:56 Creatine Kinase 142 U/L (39-308) 09/03/21 13:39 Troponin T Baseline 27 ng/L (0-15) H 09/03/21 13:35 Troponin T 120 Minute 27.49 ng/L (0-15) H 09/03/21 15:32 Delta Troponin T 0.49 ABS# (0-10) 09/03/21 15:32 Total Protein 6.3 g/dL (6.6-8.7) L 09/05/21 07:56 Albumin 3.9 g/dL (3.5-5.2) 09/05/21 07:56 Globulin 2.4 g/dL (1.3-4.6) 09/05/21 07:56 Triglycerides 139 mg/dL (0-150) 09/03/21 13:35 Cholesterol 148 mg/dL (0-200) 09/03/21 13:35 LDL Cholesterol, Calc 78 mg/dL (50-129) 09/03/21 13:35 HDL Cholesterol 42 mg/dL (60-100) L 09/03/21 13:35 LDL/HDL Ratio 1.86 RATIO (0.00-3.22) 09/03/21 13:35 Cholesterol/HDL Ratio 3.52 mg/dL (1.0-5.00) 09/03/21 13:35 Vitamin B12 406 pg/mL (232-1245) 09/04/21 03:05 Folate 7.3 ng/mL (4.5-32.2) 09/04/21 12:01 TSH 0.32 uIU/mL (0.27-4.20) 09/03/21 13:35 Urine Opiates Screen Positive ng/mL (Negative) H 09/04/21 13:00 Ur Barbiturates Screen Positive ng/mL (Negative) H 09/04/21 13:00 Ur Phencyclidine Scrn Negative ng/mL (Negative) 09/04/21 13:00 Ur Amphetamines Screen Negative ng/mL (Negative) 09/04/21 13:00 U Benzodiazepines Scrn Positive ng/mL (Negative) H 09/04/21 13:00 Urine Cocaine Screen Negative ng/mL (Negative) 09/04/21 13:00 U Marijuana (THC) Screen Negative ng/mL (Negative) 09/04/21 13:00 Vitals Last Vital Signs Temp 97.4 F L 09/04/21 07:15 Pulse 71 09/05/21 10:58 Resp 15 09/05/21 10:58 BP 117/62 09/05/21 10:58 Pulse Ox 95 09/05/21 10:58 Discharge Plan Discharge Patient Disposition: Home Condition: Stable Prescriptions: New Colcrys 0.6 mg Tablet 0.6 mg PO DAILY 7 Days Qty: 7 0RF Novolog Flexpen U-100 Insulin 100 unit/mL (3 mL) insulin pen See Rx Instructions .ROUTE .COMPLEX Qty: 15 0RF Rx Instructions: Inject, 3 times daily, after meals, based on sliding scale provided Continued multivitamin Tablet 1 tab PO QAM 0RF quetiapine 25 mg tablet See Rx Instructions .ROUTE .COMPLEX 0RF Rx Instructions: 25MG PO AT 09:00 AND 15:00 AND 50MG PO AT BEDTIME atorvastatin 40 mg tablet 40 mg PO BEDTIME 0RF metoprolol tartrate 100 mg tablet 50 mg PO BID 0RF levetiracetam 500 mg tablet 500 mg PO BID 0RF ondansetron HCl 4 mg tablet 4 mg PO Q8H PRN (Reason: Nausea And Vomiting) 0RF isosorbide mononitrate 30 mg tablet extended release 24 hr 60 mg PO QAM 0RF clopidogrel 75 mg tablet 75 mg PO QAM 0RF amlodipine 5 mg tablet 5 mg PO QAM 0RF aspirin 81 mg Tablet,Delayed Release (Dr/Ec) 81 mg PO QAM 0RF goyfdkqdvv-aigorjywbfcat-utze 50-325-40 mg tablet 2 tab PO BID PRN (Reason: Migraine Headache) 0RF nicotine 21 mg/24 hr patch 24 hour 21 mg topical DAILY 0RF Nitrostat 0.4 mg Tablet, Sublingual 0.4 mg SUBLINGUAL Q5M PRN (Reason: Chest Pain) 0RF Rx Instructions: do not exceed 3 doses per episode lisinopril-hydrochlorothiazide 10-12.5 mg tablet 1 tab PO DAILY PRN (Reason: UNKNOWN) 0RF ProAir HFA 90 mcg/actuation HFA aerosol inhaler 2 puff INHALATION Q4H PRN (Reason: Shortness Of Breath) 0RF ranolazine 500 mg tablet extended release 12 hr 500 mg PO BID 0RF Changed Lantus Solostar U-100 Insulin 100 unit/mL (3 mL) Insulin Pen 5 unit SUBCUT DAILY Qty: 15 0RF Discharge Orders: Discharge Order (Routine); Ordered 09/05/21 Ordered By: Hector Rosado Referrals: Alfonso Scales DO [Physician] - 09/16/21 10:30 am (New patient appointment.) Discharge Diet: Cardiac Discharge Activity: Resume usual activity Patient Instructions: Colchicine (By mouth) (Colcrys, Mitigare), Insulin Aspart, Recombinant (By injection) (Novolog, Novolog FlexPen), Acute Pericarditis (DC), Fall Prevention (DC), Opioid Safety, Post Angiogram Home Care Instructions Activity Restrictions/Additional Instructions: -If you have recurrent chest pain please go to the emergency room -Follow-up with primary care provider in 1 week -If you have bloody or black stools go to the emergency room -For your type 2 diabetes mellitus, check blood sugars 3 times daily, bring to primary care physician's office -If blood sugar greater than 500 call primary care -If blood sugar less than 60 drink or juice or eat a hard candy go to emergency room -Do not inject insulin if you do not eat, hypoglycemia kills -Insulin sliding scale as below NovoLog sliding scale -Insulin sliding fingerstick? Insulin 141-180?2 units/sq 181-220?4 units/sq 221-260?6 units/sq 261-300?8 units/sq 301-350 10 units/sq 351-400 12 units/sq > 400? 14 units/sq -I have decreased her Lantus dose to 5 units once a day Discharge Attestations Time Spent in Discharge Care*: less than 30 min Quality Metrics Clinical Quality Measures [ No reported AMI, CVA or VTE this stay] Coding Level of Care Code Acute Chg FW DC note Exam Detailed Diagnoses Atherosclerotic heart disease of [place] coronary artery with unstable angina pectoris I25.110 Benign essential HTN I10 Dyslipidemia (high LDL; low HDL) E78.5 Diabetes E11.9 Anemia D64.9
[2021-09-05] MEDS: TRAMadol 50 mg Tablet PO (13:25)
[2021-09-05] MEDS: ondansetron 2 mg/ML SDV 2 mL 4 MG IVP (13:25)
[2021-09-05 14:34] VITALS: BP 117/62; PULSE 71; RESP 15; O2SAT 95
--- NOTE | 2021-09-05 16:31 | PC.NURSE ---
the colchicine helped pt's chest pain considerably,to point where pt began ambulating in [place] and expressed wanting to be discharged.security returned pt's marijuana...and pt's vipe device returned by nursing.meds provided by meds to beds program.discharged to home via cab at 1600
== END 2021-09-05 16:00 | disposition home or self-care (01) | DRG 287 ==
LOC: ER 17:15 → CSU 21:10
PROVIDERS: Internal Medicine; Internal Medicine Cardiovascular Disease; Admitting Provider Internal Medicine; Emergency Provider Family Medicine; Visit Provider Family Medicine
PROC: B2151ZZ Fluoroscopy of Left Heart using Low Osmolar Contrast (ICD-10-PCS; principal; 2021-09-03 19:30)
DX: I25.110 Atherosclerotic heart disease of native coronary artery with unstable angina pectoris (principal); I10 Essential (primary) hypertension; E78.5 Hyperlipidemia, unspecified; E11.9 Type 2 diabetes mellitus without complications; D64.9 Anemia, unspecified; Z95.5 Presence of coronary angioplasty implant and graft; Z79.02 Long term (current) use of antithrombotics/antiplatelets; Z79.4 Long term (current) use of insulin; Z87.891 Personal history of nicotine dependence
CPT/HCPCS: 36415; 36416; 70450; 70496; 70498; 70551; 71045; 80053; 80061; 80306; 82550; 82607; 82746; 82962; 83036; 83655; 84443; 84484; 85025; 85378; 93005; 93306; 93452; 93458; 96372; 96374; 96375; 97161; 97165; 99285; C1769; C1887; C1894; J1200; J1644; J1815; J2250; J2270; J2405; J2930; J3010; J3490; J7030; Q9967

== ENCOUNTER 2021-09-05 19:10 | Emergency (ER) | payer OTHER, SELFPAY ==
[2021-09-05] VITALS (12 sets, daily range): BP systolic 111–128; BP diastolic 55–69; PULSE 57–123; RESP 16–24; TEMP 36.9; O2SAT 96–100; BMI 23.3
--- NOTE | 2021-09-05 19:13 | ECG_ITS ---
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 Measurements Intervals [place] Rate: 74 P: 48 LA: 141 QRS: 59 QRSD: 89 T: 48 QT: 347 QTc: 385 Interpretive Statements SINUS RHYTHM MODERATE VOLTAGE CRITERIA FOR LVH, CONSIDER NORMAL VARIANT [MEETS CRITERIA IN ONE OF: R(aVL), S(V1), R(V5), R(V5/V6)+S(V1)] Compared to ECG 09/05/2021 09:04:10 No significant changes Electronically Signed On 09-05-2021 22:47:01 CDT by Heath Pacheco M.D. [id number]
--- NOTE | 2021-09-05 19:13 | XRR_ITS ---
PROCEDURE INFORMATION: Exam: XR Chest Exam date and time: 09/05/2021 6:24 PM Age: 46 years old Clinical indication: Pain; Angina pectoris; Additional info: Cp TECHNIQUE: Imaging protocol: XR of the chest. Views: 1 view. COMPARISON: CR XR chest 1V portable [id number] 09/03/2021 12:39 PM FINDINGS: Lungs: Unremarkable. No consolidation. Pleural spaces: Unremarkable. No pleural effusion. No pneumothorax. Heart/Mediastinum: Unremarkable. No cardiomegaly. Bones/joints: Unremarkable. XR/XR chest 1V portable [id number] IMPRESSION: No acute findings.
[2021-09-05 19:29] LABS: Basophils % 0.3 %; Eosinophils # 0.1 10^3/uL (0.0-0.8); Eosinophils % 0.7 %; Hematocrit 37.1 % (42.0-52.0); Hemoglobin 11.8 g/dL (11.7-16.6); Lymphocytes # 3.1 10^3/uL (0.8-4.8); Lymphocytes % 24.7 %; Mean Corpuscular HGB Conc 31.8 g/dL (30.0-36.0); Mean Corpuscular Hemoglobin 26.3 pg (28.0-34.0); Mean Corpuscular Volume 82.8 fl (80-94); Mean Platelet Volume 12.5 fL (7.4-10.4); Monocytes # 1.1 10^3/uL (0.2-0.9); Monocytes % 9.1 %; Neutrophils % 64.9 %; Nucleated Red Blood Cells % 0 %; Platelet Count 260 10^3/cmm (130-400); Red Blood Count 4.48 10^6/uL (4.1-5.3); Red Cell Distribution Width 14.7 % (12.1-15.1); White Blood Count 12.5 10^3/uL (4.0-10.0)
--- NOTE | 2021-09-05 19:31 | ED_ITS ---
HPI - Chest Pain General: Chief Complaint: Chest Pain Stated Complaint: cp Time Seen by Provider: 09/05/21 19:11 Source: patient and EMS Mode of arrival: EMS Limitations: no limitations History of Present Illness: 46-year-old male states he been having chest pain over the last week. Does have a history of coronary disease actually was admitted to the hospital had a heart cath 2 days ago showed no blockages and patient was discharged this morning. States that the cold air or any started having pains again states that sharp pain in the left side of his chest denies any shortness of breath denies any worsening improving factors no vomiting no diaphoresis. Associated symptoms: Deny abdominal pain, dyspnea, fever(s), nausea or vomiting Review of Systems Const: Denies: fever(s), chills, body aches or change in appetite Eyes: Denies: blurry vision or eye discomfort ENMT: Denies: throat pain or dental pain Card: Reports: chest pain Resp: Denies: dyspnea GI: Denies: abdominal pain, nausea, vomiting or diarrhea : Denies: dysuria Musc: Denies: neck pain or back pain Skin/Breast: Denies: rash Neuro: Denies: headache(s) Psych: Denies: depression Melquiades/Lymph: Denies: easy bruising All/Imm: Denies: urticaria PFSH ED PFSH: Medical History CAD (coronary artery disease) 9stents Former smoker HTN (hypertension) Surgical History History of appendectomy Family History Other No pertinent family history Social History Smoking and tobacco status: former smoker Alcohol intake: never Housing: House Physical Exam Const: COMMON NORMALS: no acute distress, patient oriented x3 and healthy appearing HENMT: COMMON NORMALS: normocephalic and atraumatic HEAD & SCALP: normocephalic and atraumatic Eye: COMMON NORMALS: Equal, round and reactive pupils present and EOMs intact bilaterally PUPIL: Yes Equal, round and reactive pupils present Neck/C-Spine: COMMON NORMALS: full ROM and supple Chest: COMMONS NORMALS: normal inspection of the chest and normal palpation of entire chest wall Resp: COMMON NORMALS: normal respiratory effort, No retractions, No use of accessory muscles and clear to auscultation bilaterally AUSCULTATION: clear to auscultation bilaterally Cardio: COMMON NORMALS: regular rate, regular rhythm and No murmurs present (Cardio) RATE: regular rate RHYTHM: regular rhythm GI: COMMON NORMALS: Normal to inspection, nondistended, normoactive bowel sounds present, Soft to palpation, non-tender and no masses PALPATION: Yes Soft to palpation Extremity: COMMON NORMALS: normal to inspection and full ROM Neuro: COMMON NORMALS: patient oriented x3, moves all extremities and no focal motor deficits Psych: COMMON NORMALS: mental status grossly normal, Normal thought process present and cooperative THOUGHT PROCESS: Normal thought process present Skin: COMMON NORMALS: no rashes or lesions noted and no wounds GENERAL SKIN EXAM: no rashes or lesions noted Course Vital Signs: Vital signs: Vital Signs Temperature 98.5 F 09/05/21 19:12 Pulse Rate 97 09/05/21 19:12 Respiratory Rate 18 09/05/21 22:41 Blood Pressure 127/67 09/05/21 19:12 Pulse Oximetry 97 09/05/21 22:41 MDM - Chest Pain Medical Decision Making Patient presents here with chest pain had a recent negative cath 6-hour troponin here is negative he has no signs of acute coronary syndrome he is stable for discharge is to follow-up with his language pathologist return if worsening. Lab Data : 09/05/21 18:58 09/05/21 18:58 Radiology Impressions Chest X-Ray 09/05/21 19:13 IMPRESSION: No acute findings. Chest CTA 09/05/21 21:58 IMPRESSION: 1. No pulmonary embolism or pneumonia. 2. Coronary atherosclerosis. Laboratory Results WBC 12.5 10^3/uL (4.0-10.0) H 09/05/21 18:58 RBC 4.48 10^6/uL (4.1-5.3) 09/05/21 18:58 Hgb 11.8 g/dL (11.7-16.6) 09/05/21 18:58 Hct 37.1 % (42.0-52.0) L 09/05/21 18:58 MCV 82.8 fl (80-94) 09/05/21 18:58 MCH 26.3 pg (28.0-34.0) L 09/05/21 18:58 MCHC 31.8 g/dL (30.0-36.0) 09/05/21 18:58 RDW 14.7 % (12.1-15.1) 09/05/21 18:58 Plt Count 260 10^3/cmm (130-400) 09/05/21 18:58 MPV 12.5 fL (7.4-10.4) H 09/05/21 18:58 Neut % (Auto) 64.9 % 09/05/21 18:58 Lymph % (Auto) 24.7 % 09/05/21 18:58 Brown % (Auto) 9.1 % 09/05/21 18:58 Eos % (Auto) 0.7 % 09/05/21:58 Baso % (Auto) 0.3 % 09/05/21:58 Neut # (Auto) 8.10 10^3/uL (1.8-7.7) H 09/05/21 18:58 Lymph # (Auto) 3.1 10^3/uL (0.8-4.8) 09/05/21 18:58 Brown # (Auto) 1.1 10^3/uL (0.2-0.9) H 09/05/21 18:58 Eos # (Auto) 0.1 10^3/uL (0.0-0.8) 09/05/21:58 Baso # (Auto) 0.0 10^3/uL (0.0-0.1) 09/05/21:58 Nucleated RBC % (auto) 0 % 09/05/21:58 Nucleated RBCs # 0.0 /100WBC 09/05/21:58 PT 13.00 SECONDS (12.1-14.9) 09/05/21 18:58 INR 0.95 (0.8-1.2) 09/05/21 18:58 Sodium 138 mmol/L (136-145) 09/05/21 18:58 Potassium 4.2 mmol/L (3.5-5.1) 09/05/21 18:58 Chloride 101 mmol/L (98-107) 09/05/21 18:58 Carbon Dioxide 21 mmol/L (22-29) L 09/05/21 18:58 Anion Gap 20.2 (5-19) H 09/05/21 18:58 BUN 21 mg/dL (6-20) H 09/05/21 18:58 Creatinine 0.9 mg/dL (0.7-1.2) 09/05/21 18:58 GFR Calculation 91.7 mL/min (90-130) 09/05/21 18:58 Glucose 79 mg/dL (65-115) 09/05/21 18:58 Calculated Osmolality 288 mOsm/kg (285-295) 09/05/21 18:58 Calcium 9.8 mg/dL (8.5-10.5) 09/05/21 18:58 Total Bilirubin 0.2 mg/dL (0.15-1.2) 09/05/21 18:58 AST 15 U/L (0-40) 09/05/21 18:58 ALT 12 U/L (0-41) 09/05/21 18:58 Alkaline Phosphatase 70 IU/L (40-130) 09/05/21 18:58 Troponin T Baseline 78 ng/L (0-15) H 09/05/21 18:58 Troponin T 120 Minute 101.5 ng/L (0-15) H 09/05/21 20:36 Delta Troponin T 23.5 ABS# (0-10) H* 09/05/21 20:36 Troponin T Hi Sens 6Hr 85.63 ng/L (0-15) H 09/06/21 00:52 Troponin T Hi Sens 6Hr Delta 7.63 ng/L (0-12) 09/06/21 00:52 Total Protein 7.4 g/dL (6.6-8.7) 09/05/21 18:58 Albumin 4.9 g/dL (3.5-5.2) 09/05/21 18:58 Globulin 2.5 g/dL (1.3-4.6) 09/05/21 18:58 EKG Data EKG 1: I personally reviewed and interpreted this EKG as follows: EKG interpretation date: 09/05/21 EKG interpretation time: 18:19 Interpretation: nsr hr [address] or t wave abnormalities qrs 89 qtc 374 EKG 2: I personally reviewed and interpreted this EKG as follows: EKG interpretation date: 09/06/21 EKG interpretation time: 01:02 Interpretation: [place] [address] or t wave abnormalities qrs 95 qtc 371 Discharge Plan Discharge Patient Disposition: Home Clinical Impression: Chest pain Qualifiers: Chest pain type: unspecified Qualified Code(s): R07.9 - Chest pain, unspecified Condition: Stable Prescriptions: No Action multivitamin Tablet 1 tab PO QAM 0RF quetiapine 25 mg tablet See Rx Instructions .ROUTE .COMPLEX 0RF Rx Instructions: 25MG PO AT 09:00 AND 15:00 AND 50MG PO AT BEDTIME atorvastatin 40 mg tablet 40 mg PO BEDTIME 0RF metoprolol tartrate 100 mg tablet 50 mg PO BID 0RF levetiracetam 500 mg tablet 500 mg PO BID 0RF ondansetron HCl 4 mg tablet 4 mg PO Q8H PRN (Reason: Nausea And Vomiting) 0RF isosorbide mononitrate 30 mg tablet extended release 24 hr 60 mg PO QAM 0RF clopidogrel 75 mg tablet 75 mg PO QAM 0RF amlodipine 5 mg tablet 5 mg PO QAM 0RF aspirin 81 mg Tablet,Delayed Release (Dr/Ec) 81 mg PO QAM 0RF rvqvybxdie-eivfnivnzlmjn-eqsa 50-325-40 mg tablet 2 tab PO BID PRN (Reason: Migraine Headache) 0RF nicotine 21 mg/24 hr patch 24 hour 21 mg topical DAILY 0RF Nitrostat 0.4 mg Tablet, Sublingual 0.4 mg SUBLINGUAL Q5M PRN (Reason: Chest Pain) 0RF Rx Instructions: do not exceed 3 doses per episode lisinopril-hydrochlorothiazide 10-12.5 mg tablet 1 tab PO DAILY PRN (Reason: UNKNOWN) 0RF ProAir HFA 90 mcg/actuation HFA aerosol inhaler 2 puff INHALATION Q4H PRN (Reason: Shortness Of Breath) 0RF ranolazine 500 mg tablet extended release 12 hr 500 mg PO BID 0RF Colcrys 0.6 mg Tablet 0.6 mg PO DAILY 7 Days Qty: 7 0RF Novolog Flexpen U-100 Insulin 100 unit/mL (3 mL) insulin pen See Rx Instructions .ROUTE .COMPLEX Qty: 15 0RF Rx Instructions: Inject, 3 times daily, after meals, based on sliding scale provided Lantus Solostar U-100 Insulin 100 unit/mL (3 mL) Insulin Pen 5 unit SUBCUT DAILY Qty: 15 0RF Discharge Orders: Discharge ED (Routine); Ordered 09/06/21 Ordered By: Jb Jaime [facility]errals[facility] [Primary Care Provider] - Discharge Diet: Advance as tolerated Discharge Activity: Resume usual activity Patient Instructions: Chest Pain (ED) Coding Level of Care Code ED Nursing Officer for Chg Fwd Exam Comprehensive
[2021-09-05 19:38] LABS: INR 0.95 (0.8-1.2)
[2021-09-05 19:47] LABS: Alanine Aminotransferase 12 U/L (0-41); Albumin Level 4.9 g/dL (3.5-5.2); Alkaline Phosphatase 70 IU/L (40-130); Blood Urea Nitrogen 21 mg/dL (6-20); Calcium 9.8 mg/dL (8.5-10.5); Carbon Dioxide 21 mmol/L (22-29); Chloride 101 mmol/L (98-107); Globulin 2.5 g/dL (1.3-4.6); Glomerular Filtration Rate 91.7 mL/min (90-130); Glucose 79 mg/dL (65-115); Osmolality Calculated 288 mOsm/kg (285-295); Sodium 138 mmol/L (136-145); Total Bilirubin 0.2 mg/dL (0.15-1.2); Total Protein 7.4 g/dL (6.6-8.7)
[2021-09-05 19:48] LABS: Anion Gap 20.2 (5-19); Aspartate Amino Transferase 15 U/L (0-40); Potassium 4.2 mmol/L (3.5-5.1); Troponin(5th) Baseline 78 ng/L (0-15)
[2021-09-05] MEDS: ondansetron 2 mg/ML SDV 2 mL 4 MG IVP (20:43)
[2021-09-05] MEDS: morphine 4 mg/mL SDV 1 mL IVP ×2 (20:46→22:41)
--- NOTE | 2021-09-05 21:13 | ECG_ITS ---
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 Measurements Intervals [place] Rate: 52 P: 64 GA: 143 QRS: 62 QRSD: 95 T: 59 QT: 391 QTc: 365 Interpretive Statements SINUS BRADYCARDIA MODERATE VOLTAGE CRITERIA FOR LVH, CONSIDER NORMAL VARIANT [MEETS CRITERIA IN ONE OF: R(aVL), S(V1), R(V5), R(V5/V6)+S(V1)] Compared to ECG 09/05/2021 18:19:02 Sinus rhythm no longer present Electronically Signed On 09-07-2021 17:32:11 CDT by Anatoliy Jean Baptiste M.D. [id number]
[2021-09-05 21:39] LABS: Troponin 5 2HR 101.5 ng/L (0-15); Troponin 5 2HR Delta 23.5 ABS# (0-10)
--- NOTE | 2021-09-05 21:58 | CTR_ITS ---
PROCEDURE INFORMATION: Exam: CTA Chest With Contrast Exam date and time: 09/05/2021 11:03 PM Age: 46 years old Clinical indication: Shortness of breath; Chest pressure; Prior surgery; Surgery date: Post-operative (0-2 days); Patient HX: C/O chest pain with SOB. Heart cath two days ago. ; Additional info: Cp TECHNIQUE: Imaging protocol: Computed tomographic angiography of the chest with contrast. 3D rendering (Not supervised by radiologist): MIP and/or 3D reconstructed images were created by the technologist. Radiation optimization: All CT scans at this facility use at least one of these dose optimization techniques: automated exposure control; mA and/or kV adjustment per patient size (includes targeted exams where dose is matched to clinical indication); or iterative reconstruction. Contrast material: VISI 320; Contrast volume: 65 ml; Contrast route: INTRAVENOUS (IV); COMPARISON: CR (CHEST, ) 09/05/2021 6:24 PM RADIATION DOSE METRICS: Total DLP (mGy-cm): 534.21 FINDINGS: Pulmonary arteries: Overall exam quality is good for evaluating the pulmonary arteries. There are no intraluminal filling defects to indicate pulmonary embolism. Aorta: Unremarkable. No aortic aneurysm. No aortic dissection. Thyroid: The left lobe of the thyroid is small. Lungs: There is no pneumonia or mass. Mild basilar dependent atelectasis is present. Localized subpleural scarring in the left lung apex. Pleural spaces: Unremarkable. No pneumothorax. No pleural effusion. Heart: There is heavy calcified plaque in the coronary arteries. Lymph nodes: Unremarkable. No enlarged lymph nodes. Bones/joints: Unremarkable. No acute fracture. Soft tissues: Unremarkable. CT/CT angio chest PE protcl [id number] IMPRESSION: 1. No pulmonary embolism or pneumonia. 2. Coronary atherosclerosis.
[2021-09-05] MEDS: diphenhydrAMINE 50 mg/mL SDV 1mL IVP (22:37)
[2021-09-05] MEDS: iodixanol 320 mg/mL 100mL Btl IV (23:04)
[2021-09-06 00:22] VITALS: PULSE 60; RESP 16; O2SAT 99
[2021-09-06 00:52] VITALS: PULSE 65; RESP 16; O2SAT 100
[2021-09-06 01:22] VITALS: BP 133/72; PULSE 55; RESP 18; O2SAT 100
[2021-09-06 01:52] VITALS: PULSE 62; RESP 18; O2SAT 100
[2021-09-06 01:55] LABS: Troponin 5 6HR 85.63 ng/L (0-15)
[2021-09-06 02:06] LABS: Troponin 5 6HR Delta 7.63 ng/L (0-12)
[2021-09-06 02:22] VITALS: BP 115/69; PULSE 57; RESP 16; O2SAT 99
[2021-09-06 02:28] VITALS: BP 115/69; PULSE 62; RESP 18; O2SAT 99
== END 2021-09-06 02:30 | disposition home or self-care (01) ==
PROVIDERS: Emergency Provider Emergency Medicine
DX: R07.9 Chest pain, unspecified (principal); Z79.82 Long term (current) use of aspirin; Z79.02 Long term (current) use of antithrombotics/antiplatelets; Z79.4 Long term (current) use of insulin; I25.10 Atherosclerotic heart disease of native coronary artery without angina pectoris; I10 Essential (primary) hypertension; Z87.891 Personal history of nicotine dependence
CPT/HCPCS: 36415; 71045; 71275; 80053; 84484; 85025; 85610; 93005; 96374; 96375; 96376; 99284; J1200; J2270; J2405; J2920; Q9967

== ENCOUNTER 2021-09-07 20:06 | Emergency (ER) | payer OTHER, SELFPAY ==
[2021-09-07 20:18] VITALS: BP 122/70; PULSE 88; RESP 16; TEMP 36.8; O2SAT 98; BMI 23.3
--- NOTE | 2021-09-07 20:22 | XRR_ITS ---
PROCEDURE INFORMATION: Exam: XR Chest Exam date and time: 09/07/2021 8:02 PM Age: 46 years old Clinical indication: Other: Passed out, low blood sugar; Prior surgery; Surgery date: 6+ months; Surgery type: Stents; Additional info: Cp TECHNIQUE: Imaging protocol: XR of the chest. Views: 1 view. COMPARISON: CR (CHEST, ) 09/05/2021 6:24 PM FINDINGS: Lungs: Unremarkable. No consolidation. Pleural spaces: Unremarkable. No pleural effusion. No pneumothorax. Heart/Mediastinum: Unremarkable. No cardiomegaly. Bones/joints: Unremarkable. XR/XR chest 1V portable [id number] IMPRESSION: No acute findings.
--- NOTE | 2021-09-07 20:22 | ECG_ITS ---
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 Measurements Intervals [place] Rate: 93 P: 68 [place]: 132 QRS: 67 QRSD: 90 T: 9 QT: 328 QTc: 410 Interpretive Statements SINUS RHYTHM MODERATE VOLTAGE CRITERIA FOR LVH, CONSIDER NORMAL VARIANT [MEETS CRITERIA IN ONE OF: R(aVL), S(V1), R(V5), R(V5/V6)+S(V1)] NONSPECIFIC T-WAVE ABNORMALITY Compared to ECG 09/06/2021 01:02:46 T-wave abnormality now present Sinus bradycardia no longer present Electronically Signed On 09-08-2021 20:15:13 CDT by Anatoliy Jean Baptiste M.D. [id number]
[2021-09-07 20:33] LABS: Glucose Point of Care 60 mg/dL (70-110)
--- NOTE | 2021-09-07 20:48 | PC.NURSE ---
PT BG 60 IN TRIAGE, PT GIVEN CHOCOLATE MILK, LAUREEN CRACKERS AND PEANUT BUTTER TO RAISE IT PER MD MONTEMAYOR.
[2021-09-07 21:20] LABS: Basophils # 0.1 10^3/uL (0.0-0.1); Basophils % 0.6 %; Eosinophils # 0.2 10^3/uL (0.0-0.8); Eosinophils % 2.5 %; Hematocrit 30.8 % (42.0-52.0); Hemoglobin 9.7 g/dL (11.7-16.6); Lymphocytes # 2.1 10^3/uL (0.8-4.8); Lymphocytes % 24.4 %; Mean Corpuscular HGB Conc 31.5 g/dL (30.0-36.0); Mean Corpuscular Hemoglobin 26.4 pg (28.0-34.0); Mean Corpuscular Volume 83.7 fl (80-94); Mean Platelet Volume 12.5 fL (7.4-10.4); Monocytes # 1.2 10^3/uL (0.2-0.9); Monocytes % 13.9 %; Neutrophils # 4.99 10^3/uL (1.8-7.7); Neutrophils % 58.1 %; Nucleated Red Blood Cells % 0 %; Platelet Count 207 10^3/cmm (130-400); Red Blood Count 3.68 10^6/uL (4.1-5.3); Red Cell Distribution Width 14.6 % (12.1-15.1); White Blood Count 8.6 10^3/uL (4.0-10.0)
--- NOTE | 2021-09-07 21:23 | ED_ITS ---
HPI - Chest Pain General: Chief Complaint: Chest Pain Stated Complaint: Blood Sugar Low\Chest Pain Time Seen by Provider: 09/07/21 21:06 Source: patient Mode of arrival: ambulatory Limitations: no limitations History of Present Illness: 46-year-old male who states he been feeling lightheaded throughout the day. He states he had passed out on his way up here. He states that he took his insulin today has not eaten all day and his blood sugars been running low it was 60 in triage. He did eat some crackers peanut butter in triage and states he is feeling improved. He is also had some intermittent chest pain he states has been going on for a week he is actually seen here twice already this week for the chest pain admitted last week and had a normal cath. Associated symptoms: Reports syncope; Deny abdominal pain, dyspnea, fever(s), nausea or vomiting Review of Systems Const: Denies: fever(s), chills, body aches or change in appetite Eyes: Denies: blurry vision or eye discomfort ENMT: Denies: throat pain or dental pain Card: Reports: chest pain and syncope Resp: Denies: dyspnea GI: Denies: abdominal pain, nausea, vomiting or diarrhea : Denies: dysuria Musc: Denies: neck pain or back pain Skin/Breast: Denies: rash Neuro: Denies: headache(s) Psych: Denies: depression Melquiades/Lymph: Denies: easy bruising All/Imm: Denies: urticaria PFS ED PFSH: Medical History CAD (coronary artery disease) 9stents Former smoker HTN (hypertension) Surgical History History of appendectomy Family History Other No pertinent family history Social History Smoking and tobacco status: former smoker Alcohol intake: never Housing: House Physical Exam Const: COMMON NORMALS: no acute distress, patient oriented x3 and healthy appearing HENMT: COMMON NORMALS: normocephalic and atraumatic HEAD & SCALP: norm ocephalic and atraumatic Eye: COMMON NORMALS: Equal, round and reactive pupils present and EOMs intact bilaterally PUPIL: Yes Equal, round and reactive pupils present Neck/C-Spine: COMMON NORMALS: full ROM and supple Chest: COMMONS NORMALS: normal inspection of the chest and normal palpation of entire chest wall Resp: COMMON NORMALS: normal respiratory effort, No retractions, No use of accessory muscles and clear to auscultation bilaterally AUSCULTATION: clear to auscultation bilaterally Cardio: COMMON NORMALS: regular rate, regular rhythm and No murmurs present (Cardio) RATE: regular rate RHYTHM: regular rhythm GI: COMMON NORMALS: Normal to inspection, nondistended, normoactive bowel sounds present, Soft to palpation, non-tender and no masses PALPATION: Yes Soft to palpation Extremity: COMMON NORMALS: normal to inspection and full ROM Neuro: COMMON NORMALS: patient oriented x3, moves all extremities and no focal motor deficits Psych: COMMON NORMALS: mental status grossly normal, Normal thought process present and cooperative THOUGHT PROCESS: Normal thought process present Skin: COMMON NORMALS: no rashes or lesions noted and no wounds GENERAL SKIN EXAM: no rashes or lesions noted Course Vital Signs: Vital signs: Vital Signs Temperature 98.3 F 09/07/21 20:18 Pulse Rate 78 09/08/21 00:10 Respiratory Rate 24 H 09/08/21 00:10 Blood Pressure 147/70 09/08/21 00:10 Pulse Oximetry 98 09/08/21 00:10 MDM - Chest Pain Medical Decision Making Patient presents here with chest pain along with hypoglycemia. Hypoglycemia is due to noncompliance his second troponin here was slightly elevated was planning on doing a 6-hour troponin patient did not want to stay and signed out AGAINST MEDICAL ADVICE Lab Data : 09/07/21 21:16 09/07/21 21:16 Radiology Impressions Chest X-Ray 09/07/21 20:22 IMPRESSION: No acute findings. Laboratory Results WBC 8.6 10^3/uL (4.0-10.0) 09/07/21 21:16 RBC 3.68 10^6/uL (4.1-5.3) L 09/07/21 21:16 Hgb 9.7 g/dL (11.7-16.6) L 09/07/21 21:16 Hct 30.8 % (42.0-52.0) L 09/07/21 21:16 MCV 83.7 fl (80-94) 09/07/21 21:16 MCH 26.4 pg (28.0-34.0) L 09/07/21 21:16 MCHC 31.5 g/dL (30.0-36.0) 09/07/21 21:16 RDW 14.6 % (12.1-15.1) 09/07/21 21:16 Plt Count 207 10^3/cmm (130-400) 09/07/21 21:16 MPV 12.5 fL (7.4-10.4) H 09/07/21 21:16 Neut % (Auto) 58.1 % 09/07/21 21:16 Lymph % (Auto) 24.4 % 09/07/21 21:16 [place] % (Auto) 13.9 % 09/07/21 21:16 Eos % (Auto) 2.5 % 09/07/21 21:16 Baso % (Auto) 0.6 % 09/07/21 21:16 Neut # (Auto) 4.99 10^3/uL (1.8-7.7) 09/07/21 21:16 Lymph # (Auto) 2.1 10^3/uL (0.8-4.8) 09/07/21 21:16 [place] # (Auto) 1.2 10^3/uL (0.2-0.9) H 09/07/21 21:16 Eos # (Auto) 0.2 10^3/uL (0.0-0.8) 09/07/21 21:16 Baso # (Auto) 0.1 10^3/uL (0.0-0.1) 09/07/21 21:16 Nucleated RBC % (auto) 0 % 09/07/21 21:16 Nucleated RBCs # 0.0 /100WBC 09/07/21 21:16 Sodium 135 mmol/L (136-145) L 09/07/21 21:16 Potassium 3.7 mmol/L (3.5-5.1) 09/07/21 21:16 Chloride 102 mmol/L (98-107) 09/07/21 21:16 Carbon Dioxide 22 mmol/L (22-29) 09/07/21 21:16 Anion Gap 14.7 (5-19) 09/07/21 21:16 BUN 24 mg/dL (6-20) H 09/07/21 21:16 Creatinine 0.8 mg/dL (0.7-1.2) 09/07/21 21:16 GFR Calculation 105.0 mL/min (90-130) 09/07/21 21:16 Glucose 82 mg/dL (65-115) 09/07/21 21:16 POC Glucose 60 mg/dL (70-110) L 09/07/21 20:30 Calculated Osmolality 283 mOsm/kg (285-295) L 09/07/21 21:16 Calcium 9.2 mg/dL (8.5-10.5) 09/07/21 21:16 Total Bilirubin 0.2 mg/dL (0.15-1.2) 09/07/21 21:16 AST 7 U/L (0-40) 09/07/21 21:16 ALT 10 U/L (0-41) 09/07/21 21:16 Alkaline Phosphatase 60 IU/L (40-130) 09/07/21 21:16 Troponin T Baseline 109 ng/L (0-15) H* 09/07/21 21:16 Troponin T 120 Minute 121.4 ng/L (0-15) H 09/07/21 23:06 Delta Troponin T 12.4 ABS# (0-10) H* 09/07/21 23:06 Total Protein 6.2 g/dL (6.6-8.7) L 09/07/21 21:16 Albumin 4.1 g/dL (3.5-5.2) 09/07/21 21:16 Globulin 2.1 g/dL (1.3-4.6) 09/07/21 21:16 EKG Data EKG 1: I personally reviewed and interpreted this EKG as follows: EKG interpretation date: 09/07/21 EKG interpretation time: 20:25 Interpretation: nsr hr [address] or t wave abnormalities qrs 90 qtc 379 Discharge Plan Discharge Patient Disposition: Left Against Medical Advice Clinical Impression: Chest pain Condition: Stable Prescriptions: No Action multivitamin Tablet 1 tab PO QAM 0RF quetiapine 25 mg tablet See Rx Instructions .ROUTE .COMPLEX 0RF Rx Instructions: 25MG PO AT 09:00 AND 15:00 AND 50MG PO AT BEDTIME atorvastatin 40 mg tablet 40 mg PO BEDTIME 0RF metoprolol tartrate 100 mg tablet 50 mg PO BID 0RF levetiracetam 500 mg tablet 500 mg PO BID 0RF ondansetron HCl 4 mg tablet 4 mg PO Q8H PRN (Reason: Nausea And Vomiting) 0RF isosorbide mononitrate 30 mg tablet extended release 24 hr 60 mg PO QAM 0RF clopidogrel 75 mg tablet 75 mg PO QAM 0RF amlodipine 5 mg tablet 5 mg PO QAM 0RF aspirin 81 mg Tablet,Delayed Release (Dr/Ec) 81 mg PO QAM 0RF vzfrcyqsif-depchygynsull-nlzg 50-325-40 mg tablet 2 tab PO BID PRN (Reason: Migraine Headache) 0RF nicotine 21 mg/24 hr patch 24 hour 21 mg topical DAILY 0RF Nitrostat 0.4 mg Tablet, Sublingual 0.4 mg SUBLINGUAL Q5M PRN (Reason: Chest Pain) 0RF Rx Instructions: do not exceed 3 doses per episode lisinopril-hydrochlorothiazide 10-12.5 mg tablet 1 tab PO DAILY PRN (Reason: UNKNOWN) 0RF ProAir HFA 90 mcg/actuation HFA aerosol inhaler 2 puff INHALATION Q4H PRN (Reason: Shortness Of Breath) 0RF ranolazine 500 mg tablet extended release 12 hr 500 mg PO BID 0RF Colcrys 0.6 mg Tablet 0.6 mg PO DAILY 7 Days Qty: 7 0RF Novolog Flexpen U-100 Insulin 100 unit/mL (3 mL) insulin pen See Rx Instructions .ROUTE .COMPLEX Qty: 15 0RF Rx Instructions: Inject, 3 times daily, after meals, based on sliding scale provided Lantus Solostar U-100 Insulin 100 unit/mL (3 mL) Insulin Pen 5 unit SUBCUT DAILY Qty: 15 0RF Coding Level of Care Code ED 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
[2021-09-07 21:51] LABS: Alanine Aminotransferase 10 U/L (0-41); Albumin Level 4.1 g/dL (3.5-5.2); Alkaline Phosphatase 60 IU/L (40-130); Anion Gap 14.7 (5-19); Aspartate Amino Transferase 7 U/L (0-40); Blood Urea Nitrogen 24 mg/dL (6-20); Calcium 9.2 mg/dL (8.5-10.5); Carbon Dioxide 22 mmol/L (22-29); Chloride 102 mmol/L (98-107); Globulin 2.1 g/dL (1.3-4.6); Glucose 82 mg/dL (65-115); Osmolality Calculated 283 mOsm/kg (285-295); Potassium 3.7 mmol/L (3.5-5.1); Sodium 135 mmol/L (136-145); Total Bilirubin 0.2 mg/dL (0.15-1.2); Total Protein 6.2 g/dL (6.6-8.7)
[2021-09-07 21:54] LABS: Troponin(5th) Baseline 109 ng/L (0-15)
[2021-09-07 22:07] VITALS: BP 147/70; PULSE 79; RESP 17; O2SAT 98
[2021-09-07 23:42] LABS: Troponin 5 2HR 121.4 ng/L (0-15); Troponin 5 2HR Delta 12.4 ABS# (0-10)
[2021-09-08 00:10] VITALS: BP 147/70; PULSE 78; RESP 24; O2SAT 98
[2021-09-08 06:57] LABS: Glucose Point of Care 123 mg/dL (70-110)
== END 2021-09-08 01:19 | disposition left against medical advice (07) ==
PROVIDERS: Emergency Provider Emergency Medicine
DX: R07.9 Chest pain, unspecified (principal); Z53.21 Procedure and treatment not carried out due to patient leaving prior to being seen by health care provider; Z79.02 Long term (current) use of antithrombotics/antiplatelets; Z79.82 Long term (current) use of aspirin; Z79.4 Long term (current) use of insulin; I25.10 Atherosclerotic heart disease of native coronary artery without angina pectoris; I10 Essential (primary) hypertension; Z87.891 Personal history of nicotine dependence
CPT/HCPCS: 36415; 36416; 71045; 80053; 82962; 84484; 85025; 93005; 99284

== ENCOUNTER 2021-09-10 19:54 | Inpatient (IN) | payer OTHER, MEDICAID, SELFPAY ==
[2021-09-10] VITALS (7 sets, daily range): BP systolic 111–150; BP diastolic 63–93; PULSE 84–105; RESP 14–21; TEMP 38; O2SAT 98–100; BMI 23.3
--- NOTE | 2021-09-10 19:55 | ECG_ITS ---
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 Measurements Intervals [place] Rate: 109 P: 64 [place]: 145 QRS: 59 QRSD: 83 T: 34 QT: 293 QTc: 395 Interpretive Statements SINUS TACHYCARDIA POSSIBLE LEFT ATRIAL ENLARGEMENT [-0.1mV P-WAVE IN V1/V2] POSSIBLE LEFT VENTRICULAR HYPERTROPHY [VOLTAGE CRITERIA PLUS LAE OR QRS WIDENING] Compared to ECG 09/07/2021 20:25:51 Sinus rhythm no longer present T-wave abnormality no longer present Electronically Signed On 09-11-2021 17:56:23 CDT by Heath Pacheco M.D. [id number] f
--- NOTE | 2021-09-10 19:55 | XRR_ITS ---
PROCEDURE INFORMATION: Exam: XR Chest Exam date and time: 09/10/2021 7:20 PM Age: 46 years old Clinical indication: Pain; Angina pectoris; Additional info: Cp TECHNIQUE: Imaging protocol: XR of the chest. Views: 1 view. COMPARISON: CR (CHEST, ) 09/07/2021 8:02 PM FINDINGS: Tubes, catheters and devices: Monitor leads project over the chest. Lungs: No significant or acute findings. No consolidation. Pleural spaces: No significant costophrenic angle blunting. No pneumothorax. Heart/Mediastinum: Heart size within normal limits given the portable AP technique. Bones/joints: No acute osseous abnormality. XR/XR chest 1V portable [id number] IMPRESSION: No acute abnormality demonstrated.
--- NOTE | 2021-09-10 20:08 | W.ED.CHESTPA ---
HPI - Chest Pain General: Chief Complaint: Chest Pain Stated Complaint: Chest pains Time Seen by Provider: 09/10/21 19:55 Source: patient Mode of arrival: ambulatory Limitations: no limitations History of Present Illness: 46-year-old male who is very well-known to the ER states has been having chest pain throughout the day along with right lower quadrant abdominal pain. States his pains been sharp in nature.States his pain is a 6 out of 10. He has been seen here multiple times last week for chest pains and had a normal cath a little over a week ago. He had low-grade fevers at home. No vomiting no diarrhea. Associated symptoms: Reports abdominal pain and fever(s); Deny dyspnea, nausea or vomiting Review of Systems Const: Reports: fever(s); Denies: chills, body aches or change in appetite Eyes: Denies: blurry vision or eye discomfort ENMT: Denies: throat pain or dental pain Card: Reports: chest pain Resp: Denies: dyspnea GI: Reports: abdominal pain; Denies: nausea, vomiting or diarrhea : Denies: dysuria Musc: Denies: neck pain or back pain Skin/Breast: Denies: rash Neuro: Denies: headache(s) Psych: Denies: depression Melquiades/Lymph: Denies: easy bruising All/Imm: Denies: urticaria PFSH ED PFSH: Medical History CAD (coronary artery disease) 9stents Former smoker HTN (hypertension) Surgical History History of appendectomy Family History Other No pertinent family history Social History Smoking and tobacco status: former smoker Alcohol intake: never Housing: House Physical Exam Const: COMMON NORMALS: no acute distress, patient oriented x3 and healthy appearing HENMT: COMMON NORMALS: normocephalic and atraumatic HEAD & SCALP: normocephalic and atraumatic Eye: COMMON NORMALS: Equal, round and reactive pupils present and EOMs intact bilaterally PUPIL: Yes Equal, round and reactive pupils present Neck/C-Spine: COMMON NORMALS: full ROM and supple Chest: COMMONS NORMALS: normal inspection of the chest and normal palpation of entire chest wall Resp: COMMON NORMALS: normal respiratory effort, No retractions, No use of accessory muscles and clear to auscultation bilaterally AUSCULTATION: clear to auscultation bilaterally Cardio: COMMON NORMALS: regular rate, regular rhythm and No murmurs present (Cardio) RATE: regular rate and tachycardic RHYTHM: regular rhythm GI: COMMON NORMALS: Normal to inspection, nondistended, normoactive bowel sounds present, Soft to palpation and no masses PALPATION: Yes Soft to palpation and Yes Tenderness to palpation present (GI) Details: RLQ Extremity: COMMON NORMALS: normal to inspection and full ROM Neuro: COMMON NORMALS: patient oriented x3, moves all extremities and no focal motor deficits Psych: COMMON NORMALS: mental status grossly normal, Normal thought process present and cooperative THOUGHT PROCESS: Normal thought process present Skin: COMMON NORMALS: no rashes or lesions noted and no wounds GENERAL SKIN EXAM: no rashes or lesions noted Course Reevaluation(s): Reevaluation #1: When patient first arrived he had complained of some of the chest pain is having going into his left arm with some slight numbness. On his initial exam when he first got back to the room at roughly 2100 he was able to move his left arm and left leg without any difficulty. patient states that since he had a CT of his abdomen he is having numbness of his lips and states he cannot move his lips states he cannot move his left arm or left leg. This started right after his CT abdomen when he got back to the room at 2210 Time: 22:10 Vital Signs: Vital signs: Vital Signs Temperature 100.4 F H 09/10/21 20:01 Pulse Rate 95 09/10/21 23:15 Respiratory Rate 18 09/10/21 23:15 Blood Pressure 121/70 09/10/21 23:15 Pulse Oximetry 99 09/10/21 23:15 MDM - Chest Pain Medical Decision Making Patient presents here with chest pain while patient was here he started to have strokelike symptoms with not able to move his left side at all. Her NIH is 6 I did have [facility] do a teleneurology visit recommended TPA patient is given TPA here after consent. Will admit to the ICU. Lab Data : 09/10/21 20:11 09/10/21 20:11 Radiology Impressions Chest X-Ray 09/10/21 19:55 IMPRESSION: No acute abnormality demonstrated. Abdomen/Pelvis CT 09/10/21 21:14 IMPRESSION: 1. 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 2. A few very tiny punctate nonobstructing bilateral renal calculi. Head CT 09/10/21 22:14 IMPRESSION: No evidence of acute intracranial abnormality. ASSESSMENT: ASPECTS (Janeth Stroke Program Early CT Score) is 10. Laboratory Results WBC 12.4 10^3/uL (4.0-10.0) H 09/10/21 20:11 RBC 4.36 10^6/uL (4.1-5.3) 09/10/21 20:11 Hgb 11.1 g/dL (11.7-16.6) L 09/10/21 20:11 Hct 35.3 % (42.0-52.0) L 09/10/21 20:11 MCV 81.0 fl (80-94) 09/10/21 20:11 MCH 25.5 pg (28.0-34.0) L 09/10/21 20:11 MCHC 31.4 g/dL (30.0-36.0) 09/10/21 20:11 RDW 14.4 % (12.1-15.1) 09/10/21 20:11 Plt Count 219 10^3/cmm (130-400) 09/10/21 20:11 MPV 12.3 fL (7.4-10.4) H 09/10/21 20:11 Neut % (Auto) 82.1 % 09/10/21 20:11 Lymph % (Auto) 8.4 % 09/10/21 20:11 [place] % (Auto) 6.6 % 09/10/21 20:11 Eos % (Auto) 2.1 % 09/10/21 20:11 Baso % (Auto) 0.3 % 09/10/21 20:11 Neut # (Auto) 10.21 10^3/uL (1.8-7.7) H 09/10/21 20:11 Lymph # (Auto) 1.1 10^3/uL (0.8-4.8) 09/10/21 20:11 [place] # (Auto) 0.8 10^3/uL (0.2-0.9) 09/10/21 20:11 Eos # (Auto) 0.3 10^3/uL (0.0-0.8) 09/10/21 20:11 Baso # (Auto) 0.0 10^3/uL (0.0-0.1) 09/10/21 20:11 Nucleated RBC % (auto) 0 % 09/10/21 20:11 Nucleated RBCs # 0.0 /100WBC 09/10/21 20:11 ESR 1 mm/hr (0-10) 09/10/21 20:11 PT 12.90 SECONDS (12.1-14.9) 09/10/21 23:06 INR 0.94 (0.8-1.2) 09/10/21 23:06 Sodium 138 mmol/L (136-145) 09/10/21 20:11 Potassium 4.0 mmol/L (3.5-5.1) 09/10/21 20:11 Chloride 102 mmol/L (98-107) 09/10/21 20:11 Carbon Dioxide 26 mmol/L (22-29) 09/10/21 20:11 Anion Gap 14.0 (5-19) 09/10/21 20:11 BUN 10 mg/dL (6-20) 09/10/21 20:11 Creatinine 1.2 mg/dL (0.7-1.2) 09/10/21 20:11 GFR Calculation 65.8 mL/min (90-130) L 09/10/21 20:11 Glucose 68 mg/dL (65-115) 09/10/21 20:11 POC Glucose 110 mg/dL (70-110) 09/10/21 22:12 Calculated Osmolality 283 mOsm/kg (285-295) L 09/10/21 20:11 Calcium 9.7 mg/dL (8.5-10.5) 09/10/21 20:11 Total Bilirubin 0.2 mg/dL (0.15-1.2) 09/10/21 20:11 AST 11 U/L (0-40) 09/10/21 20:11 ALT 13 U/L (0-41) 09/10/21 20:11 Alkaline Phosphatase 77 IU/L (40-130) 09/10/21 20:11 Troponin T Baseline 74 ng/L (0-15) H 09/10/21 20:11 Troponin T 120 Minute 66.56 ng/L (0-15) H 09/10/21 22:08 Delta Troponin T -7.44 ABS# (0-10) L 09/10/21 22:08 Total Protein 6.9 g/dL (6.6-8.7) 09/10/21 20:11 Albumin 4.8 g/dL (3.5-5.2) 09/10/21 20:11 Globulin 2.1 g/dL (1.3-4.6) 09/10/21 20:11 Urine Color Yellow (Yellow) 09/10/21 21:40 Urine Appearance Clear (CLEAR) 09/10/21 21:40 Urine pH 8 (5-7) H 09/10/21 21:40 Ur Specific [place] 1.010 (1.005-1.030) 09/10/21 21:40 Urine Protein Neg (Negative) 09/10/21 21:40 Urine Glucose (UA) Norm (Normal) 09/10/21 21:40 Urine Ketones Negative (Negative) 09/10/21 21:40 Urine Blood Neg (Negative) 09/10/21 21:40 Urine Nitrate Negative (Negative) 09/10/21 21:40 Urine Bilirubin Neg (Negative) 09/10/21 21:40 Prot Sulfosalicylic Acd Negative (Negative) 09/10/21 21:40 Urine Urobilinogen Norm mg/dL (Negative) 09/10/21 21:40 Ur Leukocyte Esterase Negative (Negative) 09/10/21 21:40 Urine Opiates Screen Positive ng/mL (Negative) H 09/10/21 21:40 Ur Barbiturates Screen Positive ng/mL (Negative) H 09/10/21 21:40 Ur Phencyclidine Scrn Negative ng/mL (Negative) 09/10/21 21:40 Ur Amphetamines Screen Negative ng/mL (Negative) 09/10/21 21:40 U Benzodiazepines Scrn Negative ng/mL (Negative) 09/10/21 21:40 Urine Cocaine Screen Negative ng/mL (Negative) 09/10/21 21:40 U Marijuana (THC) Screen Negative ng/mL (Negative) 09/10/21 21:40 Influenza Type A Ag Negative (Negative) 09/10/21 21:47 Influenza Type B Ag Negative (Negative) 09/10/21 21:47 EKG Data EKG 1: I personally reviewed and interpreted this EKG as follows: EKG interpretation date: 09/10/21 EKG interpretation time: 20:03 Interpretation: sinus tach hr [address] or t wave abnormalities qrs 83 qtc 357 Discharge Plan Discharge Patient Disposition: Admitted As Inpatient Clinical Impression: Chest pain, CVA (cerebrovascular accident) Condition: Stable Coding Level of Care Code ED Artificial 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
[2021-09-10] MEDS: morphine 4 mg/mL SDV 1 mL IVP (20:15)
[2021-09-10 20:21] LABS: Basophils % 0.3 %; Eosinophils # 0.3 10^3/uL (0.0-0.8); Eosinophils % 2.1 %; Hematocrit 35.3 % (42.0-52.0); Hemoglobin 11.1 g/dL (11.7-16.6); Lymphocytes # 1.1 10^3/uL (0.8-4.8); Lymphocytes % 8.4 %; Mean Corpuscular HGB Conc 31.4 g/dL (30.0-36.0); Mean Corpuscular Hemoglobin 25.5 pg (28.0-34.0); Mean Platelet Volume 12.3 fL (7.4-10.4); Monocytes # 0.8 10^3/uL (0.2-0.9); Monocytes % 6.6 %; Neutrophils # 10.21 10^3/uL (1.8-7.7); Neutrophils % 82.1 %; Nucleated Red Blood Cells % 0 %; Platelet Count 219 10^3/cmm (130-400); Red Blood Count 4.36 10^6/uL (4.1-5.3); Red Cell Distribution Width 14.4 % (12.1-15.1); White Blood Count 12.4 10^3/uL (4.0-10.0)
[2021-09-10 20:24] LABS: Glucose Point of Care 96 mg/dL (70-110)
[2021-09-10] MEDS: ondansetron 2 mg/ML SDV 2 mL 4 MG IVP (20:25)
[2021-09-10 20:52] LABS: Alanine Aminotransferase 13 U/L (0-41); Albumin Level 4.8 g/dL (3.5-5.2); Alkaline Phosphatase 77 IU/L (40-130); Aspartate Amino Transferase 11 U/L (0-40); Blood Urea Nitrogen 10 mg/dL (6-20); Calcium 9.7 mg/dL (8.5-10.5); Carbon Dioxide 26 mmol/L (22-29); Chloride 102 mmol/L (98-107); Globulin 2.1 g/dL (1.3-4.6); Glomerular Filtration Rate 65.8 mL/min (90-130); Glucose 68 mg/dL (65-115); Osmolality Calculated 283 mOsm/kg (285-295); Sodium 138 mmol/L (136-145); Total Bilirubin 0.2 mg/dL (0.15-1.2); Total Protein 6.9 g/dL (6.6-8.7)
[2021-09-10 20:54] LABS: Troponin(5th) Baseline 74 ng/L (0-15)
[2021-09-10 21:07] LABS: Erythrocyte Sedimentation Rate 1 mm/hr (0-10)
--- NOTE | 2021-09-10 21:14 | CTR_ITS ---
PROCEDURE INFORMATION: Exam: CT Abdomen And Pelvis With Contrast Exam date and time: 09/10/2021 9:58 PM Age: 46 years old Clinical indication: Abdominal pain; Localized; Right lower quadrant (rlq); Prior surgery; Surgery type: Appy; Patient HX: C/O rlq pain. ; Additional info: Abd pain TECHNIQUE: Imaging protocol: Computed tomography of the abdomen and pelvis with contrast. Radiation optimization: All CT scans at this facility use at least one of these dose optimization techniques: automated exposure control; mA and/or kV adjustment per patient size (includes targeted exams where dose is matched to clinical indication); or iterative reconstruction. Contrast material: VISI 320; Contrast volume: 95 ml; Contrast route: INTRAVENOUS (IV); COMPARISON: CT angio chest PE protcl [id number] 09/05/2021 11:03 PM RADIATION DOSE METRICS: Total DLP (mGy-cm): 857.75 FINDINGS: Liver: No acute abnormality. A few incidental tiny hepatic cysts. Gallbladder and bile ducts: No acute abnormality. No calcified stones. No ductal dilation. Pancreas: No acute abnormality. No ductal dilation. Spleen: No acute abnormality. Adrenal glands: Incidental tiny 1.4 cm right adrenal adenoma. Kidneys and ureters: A few very tiny punctate nonobstructing bilateral renal calculi. No hydronephrosis, hydroureter or distal urinary calculus. Stomach and bowel: Fluid and ingested contents within stomach and small bowel. No significant or disproportionate large or small bowel distention. Moderate amount of stool within the colon. No evidence of diverticulitis. Appendix: Appendix is absent with tiny pericecal metallic clips or sutures. Intraperitoneal space: No significant fluid collection. No free air. Vasculature: Aortic atherosclerotic irregularity and calcification with mild narrowing of the distal lumen. No aortic aneurysm. 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 Lymph nodes: Scattered small nonspecific mesenteric lymph nodes. Urinary bladder: Incompletely distended urinary bladder. No bladder calculi. Reproductive: Unremarkable as visualized. Bones/joints: No acute osseous abnormality. No dislocation. Soft tissues: No significant soft tissue abnormalities. CT/CT abdomen pelvis w con* [id number] IMPRESSION: 1. 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 2. A few very tiny punctate nonobstructing bilateral renal calculi.
[2021-09-10] MEDS: acetaminophen 650 mg/20.3 mL UDC PO (21:37)
[2021-09-10] MEDS: diphenhydrAMINE 50 mg/mL SDV 1mL IVP (21:37)
[2021-09-10 21:55] LABS: Add Urine Microscopic? NO; Charge for UA Resulting for Rev
--- NOTE | 2021-09-10 21:55 | ECG_ITS ---
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 Measurements Intervals [place] Rate: 85 P: 3 WV: 141 QRS: -4 QRSD: 83 T: 0 QT: 330 QTc: 393 Interpretive Statements SINUS RHYTHM VOLTAGE CRITERIA FOR LVH [MEETS CRITERIA IN ONE OF: R(aVL), S(V1), R(V5), R(V5/V6)+S(V1)] Compared to ECG 09/10/2021 20:03:57 Sinus tachycardia no longer present Electronically Signed On 09-11-2021 18:00:55 CDT by Heath Pacheco M.D. [email or web address] medical [email or web address] [email or web address] [facility]/store/OM/[id number]
[2021-09-10] MEDS: iodixanol 320 mg/mL 100mL Btl IV (21:56)
[2021-09-10 22:05] LABS: Bilirubin Urine Neg (Negative); Blood Urine Neg (Negative); Glucose Urine UA Norm (Normal); Ketones Urine Negative (Negative); Leukocyte Esterase Urine Negative (Negative); Nitrate Urine Negative (Negative); Protein Urine Neg (Negative); Sulfosalicylic Acid Urine Negative (Negative); Urine Appearance Clear (CLEAR); Urine Color Yellow (Yellow); Urobilinogen Urine Norm (Negative); pH Urine 8 (5-7)
[2021-09-10 22:07] LABS: Amphetamines Screen Urine Negative (Negative); Barbiturates Screen Urine Positive (Negative); Benzodiazepines Screen Urine Negative (Negative); Cocaine Screen Urine Negative (Negative); Opiate Screen Urine Positive (Negative); PCP Screen Urine Negative (Negative); THC Screen Urine Negative (Negative)
--- NOTE | 2021-09-10 22:14 | CTR_ITS ---
PROCEDURE INFORMATION: Exam: CT Head Without Contrast Exam date and time: 09/10/2021 10:20 PM Age: 46 years old Clinical indication: Altered mental status/memory loss and visual disturbance and weakness, extremity; Patient HX: Sudden onset of left arm weakness. Patient unable to state name and . Patient states can only see light. ; Additional info: CVA TECHNIQUE: Imaging protocol: Computed tomography of the head without contrast. Radiation optimization: All CT scans at this facility use at least one of these dose optimization techniques: automated exposure control; mA and/or kV adjustment per patient size (includes targeted exams where dose is matched to clinical indication); or iterative reconstruction. Other technique: STROKE PROTOCOL was implemented. COMPARISON: CT head wo con* [id number] 09/04/2021 9:47 PM RADIATION DOSE METRICS: Total DLP (mGy-cm): 840.35 FINDINGS: Brain: No acute abnormality. No edema or mass effect. No hemorrhage. Cerebral ventricles: No acute abnormality. No significant ventriculomegaly. Paranasal sinuses: No significant or acute abnormality. No air-fluid levels. Mastoid air cells: No acute abnormality. No significant mastoid effusion. Vasculature: Residual postcontrast enhancement from earlier IV contrast administration limits assessment for possible hyperdense vessel. Bones/joints: No acute osseous abnormality. No acute fracture. Soft tissues: No significant soft tissue abnormalities. CT/CT head wo con* [id number] IMPRESSION: No evidence of acute intracranial abnormality. ASSESSMENT: ASPECTS (Janeth Stroke Program Early CT Score) is 10.
[2021-09-10 22:15] LABS: Glucose Point of Care 110 mg/dL (70-110)
[2021-09-10 22:16] LABS: Influenza A by IFA Negative (Negative); Influenza B by IFA Negative (Negative)
[2021-09-10 22:29] LABS: Troponin 5 2HR 66.56 ng/L (0-15)
[2021-09-10 22:34] LABS: Troponin 5 2HR Delta -7.44 ABS# (0-10)
[2021-09-10 23:26] LABS: INR 0.94 (0.8-1.2)
[2021-09-11] VITALS (80 sets, daily range): BP systolic 99–145; BP diastolic 49–87; PULSE 52–105; RESP 7–27; TEMP 36.8–37; O2SAT 95–100; BMI 23.6
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
[2021-09-11] MEDS: dextrose 5%-sod chloride 0.9% 1,000 ML 125 ML IV ×2 (01:13→08:25)
[2021-09-11] MEDS: pantoprazole 40 mg SDV IVP (01:13)
[2021-09-11 01:17] LABS: Glucose Point of Care 158 mg/dL (70-110)
--- NOTE | 2021-09-11 01:55 | ECG_ITS ---
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 Measurements Intervals [place] Rate: 66 P: 56 UT: 154 QRS: 57 QRSD: 87 T: 50 QT: 366 QTc: 386 Interpretive Statements SINUS RHYTHM MODERATE VOLTAGE CRITERIA FOR LVH, CONSIDER NORMAL VARIANT [MEETS CRITERIA IN ONE OF: R(aVL), S(V1), R(V5), R(V5/V6)+S(V1)] Compared to ECG 09/10/2021 23:11:32 No significant changes Electronically Signed On 09-11-2021 18:00:38 CDT by Heath Pacheco M.D. [id number]
[2021-09-11 02:28] LABS: D Dimer 1.94 ug/mIFEU (0-0.59)
[2021-09-11 02:36] LABS: Troponin 5 6HR 44.99 ng/L (0-15)
[2021-09-11 02:46] LABS: NT Pro B Type Natriuretic Pept 207 pg/mL (0-125)
[2021-09-11] MEDS: amlodipine 5 mg Tablet PO (05:59)
[2021-09-11] MEDS: isosorbide mononitrate ER 60 mg Tablet PO (05:59)
[2021-09-11 07:25] LABS: Glucose Point of Care 165 mg/dL (70-110)
--- NOTE | 2021-09-11 07:40 | CT_ITS ---
WS: [id number] CTA OF THE CHEST WITH PULMONARY EMBOLISM PROTOCOL TECHNIQUE: High-resolution contrast enhanced CTA of the chest with coronal and sagittal reformatted i mages with pulmonary embolism protocol. MIP images are also reviewed. CLINICAL INFORMATION: chest pain COMPARISON: CTA September 05, 2021 DLP: 593.[address] scans at [facility] use at least one of these dose optimization techniques: automated e xposure control; mA and/or kV adjustment per patient size (includes targeted exams where dose is matc hed to clinical indication); or iterative reconstruction. FINDINGS: Proximal main pulmonary arteries are normal. Segmental and subsegmental pulmonary arteries are normal . No evidence of pulmonary embolus. Normal caliber thoracic aorta. Coronary calcification. No mediast inal or hilar lymphadenopathy. No axillary lymphadenopathy. Small LEFT adrenal adenoma measuring 10 mm. Small esophageal hiatal hernia. Lungs are well aerated. N o acute pulmonary infiltrates. No focal pneumonia or pleural fluid. Mild stenosis at the celiac origi n and moderate stenosis in the proximal SMA. CT/CT angio chest PE protcl [id number] IMPRESSION: 1. No evidence of pulmonary embolus. 2. Coronary calcification. 3. No acute pulmonary infiltrates. Lungs are well aerated.
--- NOTE | 2021-09-11 07:49 | PC.OT ---
OT EVALUATION ORDERS RECEIVED. HOLD SECONDARY TO TPA @2250 LAST EVENING.
[2021-09-11] MEDS: iodixanol 320 mg/mL 100mL Btl IV (08:01)
[2021-09-11] MEDS: insulin lispro 100 unit/1 mL SUBCUT (08:25)
[2021-09-11] MEDS: ranolazine (12HR) 500 mg Tablet PO ×2 (08:25→17:32)
[2021-09-11] MEDS: levETIRAcetam 500 mg Tablet PO ×2 (08:25→17:32)
[2021-09-11] MEDS: metoprolol tartrate 50 mg Tablet PO ×2 (08:25→17:32)
[2021-09-11] MEDS: quetiapine 25 mg Tablet PO ×2 (08:27→14:11)
--- NOTE | 2021-09-11 08:52 | PC.NURSE ---
to ct scan for cta,,,, ;pt up with assist able to raise both arms above head at this time .. later return to room unable to raise for doctor .. 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
[2021-09-11 11:45] LABS: Glucose Point of Care 138 mg/dL (70-110)
[2021-09-11] MEDS: ondansetron 2 mg/ML SDV 2 mL 4 MG IVP (13:21)
--- NOTE | 2021-09-11 16:20 | PC.NURSE ---
watch case polisher called here related information that christin had been in 13 different hospitals in the last 2 months for various ilness from chest pain, seizures whick he has not had history of ever and strokes ect... very concerned for gentleman and worried about his health concern related to doctor
[2021-09-11] MEDS: acetaminophen 325 mg Tablet 650 MG PO (16:25)
[2021-09-11 17:36] LABS: Glucose Point of Care 112 mg/dL (70-110)
--- NOTE | 2021-09-11 17:48 | NUR.SHIFT ---
Shift Note Frequent safety and comfort rounds continue. Orders and/or nursing care completed as indicated. Patient monitored for response to intervention Education provided includes[tpa and side effects]. Patient acknoledge . Will continue to monitor.
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
[2021-09-11] MEDS: atorvastatin 40 mg Tablet PO (19:47)
[2021-09-11] MEDS: quetiapine 25 mg Tablet 50 MG PO (19:47)
--- NOTE | 2021-09-11 20:09 | PC.NURSE ---
Upon examination by this nurse, pt states that he is paralyzed on the left side, and is completely numb on the left side. During examination by Dr. Barbour, pt observed propping his head up with the left arm and freely moving bilateral legs in the bed. Pt reports nausea, abdominal pain, kidney failure, liver failure, headache, right ear pain, throat pain, depression, and uncontrolled diabetes. Pt refuses to take Tylenol. Pt requests a sandwich and Sprite immediately after complaining of nausea. Pt able to hold glass of diet Sprite with left arm. Pt able to turn himself from side to side in bed without assistance.
[2021-09-11 20:17] LABS: Glucose Point of Care 121 mg/dL (70-110)
--- NOTE | 2021-09-11 20:39 | PC.NURSE ---
Pt refuses to wear continuous pulse oximetry.
[2021-09-11] MEDS: sennosides-docusate Tablet 1 TAB PO (20:43)
[2021-09-11] MEDS: polyethylene glycol 3350 Pkt 17 gm PO (20:43)
[2021-09-11] MEDS: nicotine 21 mg Patch 1 PATCH TRANSDERMA (20:43)
--- NOTE | 2021-09-11 22:36 | PC.NURSE ---
Tylenol offered. Pt tells this nurse that I can, shove that Tylenol up my a. Education provided regarding pain control.
--- NOTE | 2021-09-11 23:44 | PC.NURSE ---
Pt laying on his left side with head propped up on his left arm. He has bilateral legs bent and crossed. Pt again states that he cannot move left arm or leg. He now states that his left arm and leg feel like they are broken.
[2021-09-12] VITALS (9 sets, daily range): BP systolic 101–120; BP diastolic 50–66; PULSE 64–86; RESP 15–22; TEMP 36.9; O2SAT 95–100
[2021-09-12] MEDS: pantoprazole 40 mg SDV IVP (00:34)
--- NOTE | 2021-09-12 01:54 | PC.NURSE ---
Pt resting quietly in bed with eyes closed. Pt held up right arm for this nurse to place BP cuff on his arm. No complaints at this time.
--- NOTE | 2021-09-12 02:49 | PC.NURSE ---
Pt used call light to ask for orange juice. Pt laying in bed with bilateral arms above his head. Left leg is crossed over the right leg and knees are both bent.
--- NOTE | 2021-09-12 04:01 | PC.NURSE ---
Patient pulled covers over his head and refused to take them off. Unable to fully assess patient at this time. Pt is clearly able to move arms over his head, and move bilateral legs.
[2021-09-12 05:01] LABS: Basophils % 0.3 %; Eosinophils # 0.2 10^3/uL (0.0-0.8); Eosinophils % 2.6 %; Hematocrit 31.6 % (42.0-52.0); Hemoglobin 10.1 g/dL (11.7-16.6); Lymphocytes # 2.5 10^3/uL (0.8-4.8); Lymphocytes % 33.6 %; Mean Corpuscular Hemoglobin 25.8 pg (28.0-34.0); Mean Corpuscular Volume 80.6 fl (80-94); Mean Platelet Volume 12.7 fL (7.4-10.4); Monocytes # 1.2 10^3/uL (0.2-0.9); Monocytes % 16.3 %; Neutrophils # 3.44 10^3/uL (1.8-7.7); Neutrophils % 46.5 %; Nucleated Red Blood Cells % 0 %; Platelet Count 191 10^3/cmm (130-400); Red Blood Count 3.92 10^6/uL (4.1-5.3); Red Cell Distribution Width 14.7 % (12.1-15.1); White Blood Count 7.4 10^3/uL (4.0-10.0)
[2021-09-12] MEDS: isosorbide mononitrate ER 60 mg Tablet PO (05:07)
[2021-09-12] MEDS: amlodipine 5 mg Tablet PO (05:07)
[2021-09-12 05:13] LABS: INR 0.94 (0.8-1.2)
--- NOTE | 2021-09-12 05:20 | PC.NURSE ---
Pt moves left arm and leg freely, holding drinking cup with left hand. Pt able to roll over in bed without difficulty. Pt does report that his left arm and leg are still completely numb.
[2021-09-12 05:33] LABS: Alanine Aminotransferase 15 U/L (0-41); Albumin Level 3.7 g/dL (3.5-5.2); Alkaline Phosphatase 60 IU/L (40-130); Anion Gap 11.8 (5-19); Aspartate Amino Transferase 10 U/L (0-40); Blood Urea Nitrogen 16 mg/dL (6-20); Calcium 8.8 mg/dL (8.5-10.5); Carbon Dioxide 23 mmol/L (22-29); Chloride 105 mmol/L (98-107); Globulin 2.6 g/dL (1.3-4.6); Glomerular Filtration Rate 122.5 mL/min (90-130); Glucose 95 mg/dL (65-115); Magnesium 1.7 mg/dL (1.7-2.3); Osmolality Calculated 283 mOsm/kg (285-295); Phosphorus 2.6 mg/dL (2.5-4.5); Potassium 3.8 mmol/L (3.5-5.1); Sodium 136 mmol/L (136-145); Thyroid Stimulating Hormone 1.53 uIU/mL (0.27-4.20); Total Bilirubin 0.2 mg/dL (0.15-1.2); Total Protein 6.3 g/dL (6.6-8.7)
[2021-09-12 07:32] LABS: Glucose Point of Care 98 mg/dL (70-110)
[2021-09-12] MEDS: metoprolol tartrate 50 mg Tablet PO (08:05)
[2021-09-12] MEDS: levETIRAcetam 500 mg Tablet PO (08:05)
[2021-09-12] MEDS: nicotine 21 mg Patch 1 PATCH TRANSDERMA (08:06)
[2021-09-12] MEDS: quetiapine 25 mg Tablet PO (08:06)
[2021-09-12] MEDS: ranolazine (12HR) 500 mg Tablet PO (08:06)
--- NOTE | 2021-09-12 08:16 | PC.NURSE ---
physician rounding Patient AO x4, moved all extremities appropriately, Dr. Rdz at bedside no N.O. HCP to put in transfer orders out of unit
--- NOTE | 2021-09-12 09:05 | PC.NURSE ---
Patient informed this nurse he wants to leave AMA, this nurse educated patient of importance of staying to receive adequate care, patient still wanting to leave, Dr. Rdz and Dr. Barbour updated
--- NOTE | 2021-09-12 09:55 | PC.NURSE ---
Dr. Barbour came to bedside, no n.o., said if patient wants to leave AMA he can
--- NOTE | 2021-09-12 10:00 | PC.NURSE ---
Dr. Rdz gave v.o. to have patient sign AMA form, patient aware the physician is not got to set patient up with any meds or HH due to leaving AMA
--- NOTE | 2021-09-12 10:10 | PC.NURSE ---
Patient signed AMA form, understood education provided by staff of importance to stay to receive needed medical care, patient still wanting to leave AMA, all patient belongings given to patient, patient escorted out of building and is NATHALIE at this time
[2021-09-12 11:26] LABS: CENTROMERE B ANTIBODY <1.0 NEG AI (<1.0 NEG); JO-1 ANTIBODY <1.0 NEG AI (<1.0 NEG); RNP ANTIBODY <1.0 NEG AI (<1.0 NEG); SCL-70 ANTIBODY <1.0 NEG AI (<1.0 NEG); SJOGREN'S ANTIBODY (SS-A) <1.0 NEG AI (<1.0 NEG); SM ANTIBODY <1.0 NEG AI (<1.0 NEG); SS-B <1.0 NEG AI (<1.0 NEG)
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
[2021-09-12 13:27] LABS: COMPLEMENT COMPONENT C3C 107 mg/dL (82-185); COMPLEMENT COMPONENT C4C 21 mg/dL (15-53)
[2021-09-12 13:57] LABS: COMPLEMENT, TOTAL (CH50) 59 U/mL (31-60)
[2021-09-12 15:31] LABS: THYROID PEROXIDASE ANTIBODIES <1 IU/mL (<9)
[2021-09-12 16:32] LABS: ANA SCREEN, IFA NEGATIVE (NEGATIVE)
[2021-09-13 14:36] LABS: ANCA Screen NEGATIVE (NEGATIVE)
[2021-09-13 15:02] LABS: DNA AB (DS) CRITHIDIA,IFA NEGATIVE (NEGATIVE)
== END 2021-09-12 10:13 | disposition home or self-care (01) | DRG 65 ==
LOC: ER 23:24 → ICU 09-11 01:31
PROVIDERS: Admitting Provider Family Medicine; Emergency Provider Emergency Medicine; Visit Provider Internal Medicine
DX: I63.9 Cerebral infarction, unspecified (principal); I25.110 Atherosclerotic heart disease of native coronary artery with unstable angina pectoris; E11.9 Type 2 diabetes mellitus without complications; E78.5 Hyperlipidemia, unspecified; Z87.891 Personal history of nicotine dependence; R29.706 NIHSS score 6; I50.9 Heart failure, unspecified; J44.9 Chronic obstructive pulmonary disease, unspecified; Z59.01 Sheltered homelessness; I11.0 Hypertensive heart disease with heart failure; Z53.29 Procedure and treatment not carried out because of patient's decision for other reasons
CPT/HCPCS: 36415; 36416; 70450; 71045; 71275; 74177; 80053; 80306; 81003; 82962; 83516; 83735; 83880; 84100; 84443; 84484; 85025; 85378; 85610; 85651; 86160; 86162; 86235; 86255; 86376; 87804; 92523; 92610; 93005; 94664; 96372; 96374; 96375; 97116; 97161; 97165; 99291; 99292; C9113; J1200; J1815; J2270; J2405; J2920; J2997; Q9967

== ENCOUNTER 2021-09-16 10:19 | Emergency (ER) | payer OTHER, SELFPAY ==
[2021-09-16 10:20] VITALS: BP 154/68; PULSE 107; RESP 15; TEMP 36.8; O2SAT 100; BMI 23.3
[2021-09-16 10:28] VITALS: BP 146/82; PULSE 92; RESP 16; O2SAT 100
--- NOTE | 2021-09-16 10:30 | ECG_ITS ---
[facility] Test Date: 2021-09-16 Pat Name: Alonso June Department: Room: Gender: Male Relocation Services Specialist: : [id number] Requested By: Haider Fan Order Number: [id number] Janel MD: Richie Macias M.D. Measurements Intervals [place] Rate: 91 P: 74 IA: 141 QRS: 76 QRSD: 85 T: 63 QT: 329 QTc: 405 Interpretive Statements SINUS RHYTHM MODERATE VOLTAGE CRITERIA FOR LVH, CONSIDER NORMAL VARIANT [MEETS CRITERIA IN ONE OF: R(aVL), S(V1), R(V5), R(V5/V6)+S(V1)] Compared to ECG 09/11/2021 05:31:49 No significant changes Electronically Signed On 09-17-2021 16:58:38 CDT by Richie Macias M.D. [email or web address]
--- NOTE | 2021-09-16 10:30 | XR_ITS ---
WS: [id number] Exam: XR chest 1V portable [id number] Date/Time of Exam: 09/16/2021 10:33 AM Reason For Exam: syncopal episode Comparison 09/10/2021. The lungs are clear and fully inflated. Normal cardiomediastinal silhouette. Signs of previous virk ry artery stenting. No pleural effusions. Regional bony structures appear normal. XR/XR chest 1V portable [id number] IMPRESSION: 1. No acute cardiopulmonary finding.
--- NOTE | 2021-09-16 10:30 | CT_ITS ---
WS: [id number] CT HEAD NONCONTRAST HISTORY: syncopal episode TECHNIQUE: Contiguous axial imaging performed through the brain in 2.5 mm imaging. Bone and soft tiss ue windows. Sagittal and coronal reformats reviewed. All CT scans at [facility] use at least one of these dose optimization techniques: automated exposure control; mA and/or kV adjustment per pa tient size (includes targeted exams where dose is matched to clinical indication); or iterative recon struction. DLP: 877.37 mGy.cm COMPARISON: 09/10/2021 No acute intracranial hemorrhage, midline shift or mass effect. No atrophy or prior infarcts or herniation. Ventricles: Normal size with no hydrocephalus. Paranasal sinuses: As visualized are clear. Mastoid air cells: Well pneumatized. Calvarium and scalp: Skull is intact with no soft tissue edema or swelling. CT/CT head wo con* [id number] IMPRESSION: Negative head CT.
--- NOTE | 2021-09-16 10:45 | W.ED.DIZZY ---
Documented by User: OFELIA Ram 09/17/21 13:19 HPI - Dizziness General: Chief Complaint: Dizziness Stated Complaint: L ARM/LEG WEAKNESS Time Seen by Provider: 09/16/21 10:29 History of Present Illness: HPI Narrative: Patient is a 46-year-old male who comes to the ED via EMS after having a syncopal episode. Patient says he was walking up a hill earlier this morning and had a brief syncopal episode and fell down rolling down the hill. Since syncopal episode he is having some left arm and left leg weakness. He also describes having headache with pain that radiates from left to right in his forehead. He also reports bilateral facial numbness. Denies any fevers, chills, chest pain, shortness of breath, nausea, vomiting, abdominal pain, bladder or bowel symptoms. Associated symptoms: Reports headache(s) and syncope; Denies chest pain, chills, nausea, nasal congestion, palpitations or vomiting Associated neuro symptoms: Deny numbness in extremities Review of Systems Const: Denies: fever(s), chills or fatigue Eyes: Denies: change in vision or eye discomfort ENMT: Denies: throat pain, odynophagia, nasal discharge or nasal congestion Card: Reports: syncope; Denies: chest pain, palpitations, edema, swelling of feet/ankles, dyspnea on exertion or orthopnea Resp: Denies: dyspnea, productive cough or non-productive cough GI: Denies: abdominal pain, nausea, vomiting, diarrhea, constipation or hematochezia : Denies: flank pain, difficulty urinating, dysuria or hematuria Musc: Denies: neck pain, back pain or extremity swelling Skin/Breast: Denies: rash or new lesions Neuro: Reports: headache(s), weakness in extremities and sensory changes (Bilateral facial numbness); Denies: numbness in extremities PFS ED PFSH: Medical History Atherosclerotic heart disease of [place] coronary artery with unstable angina pectoris Benign essential HTN CAD (coronary artery disease) 9stents Chest pain CVA (cerebrovascular accident) Diabetes Dyslipidemia (high LDL; low HDL) Former smoker HTN (hypertension) Surgical History History of appendectomy Family History Other No pertinent family history Social History Smoking and tobacco status: former smoker Alcohol intake: never Housing: House Physical Exam Const: COMMON NORMALS: no acute distress and alert HENMT: COMMON NORMALS: normocephalic HEAD & SCALP: normocephalic MOUTH: Normal oral and palatal mucosa present THROAT: posterior oropharynx normal and uvula midline Eye: COMMON NORMALS: Equal, round and reactive pupils present, EOMs intact bilaterally and conjunctivae normal CONJUNCTIVA: Yes conjunctivae normal PUPIL: Yes Equal, round and reactive pupils present Neck/C-Spine: COMMON NORMALS: supple GENERAL: Yes normal visual inspection Resp: COMMON NORMALS: normal respiratory effort, No retractions, No use of accessory muscles and clear to auscultation bilaterally AUSCULTATION: clear to auscultation bilaterally Cardio: COMMON NORMALS: regular rate, regular rhythm, S1 normal heart sound present, S2 normal heart sound present, No gallops present (Cardio), No clicks present (Cardio), No murmurs present (Cardio) and Peripheral pulses 2+ throughout RATE: regular rate RHYTHM: regular rhythm HEART SOUNDS: S1 normal heart sound present and S2 normal heart sound present PERIPHERAL PULSES: Peripheral pulses 2+ throughout GI: COMMON NORMALS: Normal to inspection, nondistended, normoactive bowel sounds present, Soft to palpation, non-tender and no masses PALPATION: Yes Soft to palpation : COMMON NORMALS: Yes no CVA tenderness BLADDER/KIDNEY EXAM: Yes no CVA tenderness Back/Pelvis: COMMON NORMALS: no CVA tenderness Extremity: COMMON NORMALS: normal to inspection Neuro: COMMON NORMALS: CN's II-XII intact bilaterally, moves all extremities, no focal motor deficits and no sensory deficits noted SENSORIUM/ORIENTATION: Yes alert SENSORY EXAM: Yes extremities (intact) MOTOR EXAM: 5/5 motor strength present throughout Skin: GENERAL SKIN EXAM: dry skin Course Reevaluation(s): Reevaluation #1: Patient says all of his symptoms have resolved now. He has no more headache and the weakness to the left side of his body and numbness to his face has resolved as well. Patient says he feels back to normal. He would like to be discharged home and states he needs a refill on his insulin. Time: 13:00 Vital Signs: Vital signs: Vital Signs Temperature 97.9 F 09/16/21 15:03 Pulse Rate 95 09/16/21 15:03 Respiratory Rate 14 09/16/21 15:03 Blood Pressure 136/84 09/16/21 15:03 Pulse Oximetry 100 09/16/21 15:03 MDM - Dizziness Medical Decision Making Patient is a 46-year-old male comes to the ED after having a syncopal episode while walking up a hill. Denies any chest pain or shortness of breath. Patient does feel like he has some left arm and leg weakness along with a headache. Vitals are stable. Exam is benign. Neuro exam shows no deficits. CT of head showed no acute findings. Chest x-ray was negative for any acute findings. Patient's hemoglobin was 9.7, but going over his history he has chronic anemia and usually runs in the 9-10 range. The rest of CBC and CMP were unremarkable. Troponin was negative. EKG showed normal sinus rhythm with no acute findings. Urine drug screen was positive for barbiturates. Blood alcohol was negative. All of patient's symptoms resolved and he was feeling normal while here in the ED. Patient was diagnosed with an episode of syncope and anemia and was discharged home. Patient needed a refill on his insulin so I sent him home with a prescription to refill his insulin meds. He was told to follow-up with his primary care doctor in the next 3 to 5 days for reevaluation and to have his hemoglobin levels rechecked. Return to ED precautions given. Patient understood and agree with plan. Lab Data I reviewed the patient's lab results. : 09/16/21 11:20 09/16/21 11:20 Radiology Impressions Chest X-Ray 09/16/21 10:30 IMPRESSION: 1. No acute cardiopulmonary finding. Head CT 09/16/21 10:30 IMPRESSION: Negative head CT. Laboratory Results WBC 9.1 10^3/uL (4.0-10.0) 09/16/21 11:20 RBC 3.81 10^6/uL (4.1-5.3) L 09/16/21 11:20 Hgb 9.7 g/dL (11.7-16.6) L 09/16/21 11:20 Hct 30.9 % (42.0-52.0) L 09/16/21 11:20 MCV 81.1 fl (80-94) 09/16/21 11:20 MCH 25.5 pg (28.0-34.0) L 09/16/21 11:20 MCHC 31.4 g/dL (30.0-36.0) 09/16/21 11:20 RDW 15.0 % (12.1-15.1) 09/16/21 11:20 Plt Count 280 10^3/cmm (130-400) 09/16/21 11:20 MPV 11.6 fL (7.4-10.4) H 09/16/21 11:20 Neut % (Auto) 64.8 % 09/16/21 11:20 Lymph % (Auto) 19.5 % 09/16/21 11:20 [place] % (Auto) 11.3 % 09/16/21 11:20 Eos % (Auto) 1.6 % 09/16/21 11:20 Baso % (Auto) 0.7 % 09/16/21 11:20 Neut # (Auto) 5.92 10^3/uL (1.8-7.7) 09/16/21 11:20 Lymph # (Auto) 1.8 10^3/uL (0.8-4.8) 09/16/21 11:20 [place] # (Auto) 1.0 10^3/uL (0.2-0.9) H 09/16/21 11:20 Eos # (Auto) 0.2 10^3/uL (0.0-0.8) 09/16/21 11:20 Baso # (Auto) 0.1 10^3/uL (0.0-0.1) 09/16/21 11:20 Nucleated RBC % (auto) 0 % 09/16/21 11:20 Nucleated RBCs # 0.0 /100WBC 09/16/21 11:20 Sodium 137 mmol/L (136-145) 09/16/21 11:20 Potassium 3.9 mmol/L (3.5-5.1) 09/16/21 11:20 Chloride 105 mmol/L (98-107) 09/16/21 11:20 Carbon Dioxide 24 mmol/L (22-29) 09/16/21 11:20 Anion Gap 11.9 (5-19) 09/16/21 11:20 BUN 14 mg/dL (6-20) 09/16/21 11:20 Creatinine 0.9 mg/dL (0.7-1.2) 09/16/21 11:20 GFR Calculation 91.7 mL/min (90-130) 09/16/21 11:20 Glucose 81 mg/dL (65-115) 09/16/21 11:20 Calculated Osmolality 284 mOsm/kg (285-295) L 09/16/21 11:20 Calcium 8.8 mg/dL (8.5-10.5) 09/16/21 11:20 Total Bilirubin 0.2 mg/dL (0.15-1.2) 09/16/21 11:20 AST 10 U/L (0-40) 09/16/21 11:20 ALT 16 U/L (0-41) 09/16/21 11:20 Alkaline Phosphatase 57 IU/L (40-130) 09/16/21 11:20 Troponin T Baseline 17 ng/L (0-15) H 09/16/21 11:20 Troponin T 120 Minute 16.25 ng/L (0-15) H 09/16/21 13:05 Delta Troponin T -0.75 ABS# (0-10) L 09/16/21 13:05 Total Protein 6.0 g/dL (6.6-8.7) L 09/16/21 11:20 Albumin 3.8 g/dL (3.5-5.2) 09/16/21 11:20 Globulin 2.2 g/dL (1.3-4.6) 09/16/21 11:20 Urine Color Yellow (Yellow) 09/16/21 11:20 Urine Appearance Clear (CLEAR) 09/16/21 11:20 Urine pH 6 (5-7) 09/16/21 11:20 Ur Specific [place] 1.010 (1.005-1.030) 09/16/21 11:20 Urine Protein Neg (Negative) 09/16/21 11:20 Urine Glucose (UA) Norm (Normal) 09/16/21 11:20 Urine Ketones Negative (Negative) 09/16/21 11:20 Urine Blood Neg (Negative) 09/16/21 11:20 Urine Nitrate Negative (Negative) 09/16/21 11:20 Urine Bilirubin Neg (Negative) 09/16/21 11:20 Urine Urobilinogen Neg mg/dL (Negative) 09/16/21 11:20 Ur Leukocyte Esterase Negative (Negative) 09/16/21 11:20 Urine Opiates Screen Negative ng/mL (Negative) 09/16/21 11:20 Ur Barbiturates Screen Positive ng/mL (Negative) H 09/16/21 11:20 Ur Phencyclidine Scrn Negative ng/mL (Negative) 09/16/21 11:20 Ur Amphetamines Screen Negative ng/mL (Negative) 09/16/21 11:20 U Benzodiazepines Scrn Negative ng/mL (Negative) 09/16/21 11:20 Urine Cocaine Screen Negative ng/mL (Negative) 09/16/21 11:20 U Marijuana (THC) Screen Negative ng/mL (Negative) 09/16/21 11:20 Ethyl Alcohol < 10 mg/dL (0-10) 09/16/21 11:20 EKG Data EKG 1: EKG interpretation date: 09/16/21 Interpretation: EKG showed normal sinus rhythm with no ST segment elevation or depression seen. 91 bpm. Discharge Plan Discharge Patient Disposition: Home Clinical Impression: Episode of syncope Qualifiers: Syncope type: unspecified Qualified Code(s): R55 - Syncope and collapse Anemia Qualifiers: Anemia type: unspecified type Qualified Code(s): D64.9 - Anemia, unspecified Condition: Stable Prescriptions: New Lantus Solostar U-100 Insulin 100 unit/mL (3 mL) insulin pen 5 unit SUBCUT DAILY Qty: 15 0RF Novolog Flexpen U-100 Insulin 100 unit/mL (3 mL) insulin pen 1 unit SUBCUT TID Qty: 3 0RF Rx Instructions: Inject 3 times daily after meals based on sliding scale. No Action quetiapine 25 mg tablet See Rx Instructions .ROUTE .COMPLEX 0RF Rx Instructions: 25MG PO AT 09:00 AND 15:00 AND 50MG PO AT BEDTIME atorvastatin 40 mg tablet 40 mg PO BEDTIME 0RF metoprolol tartrate 100 mg tablet 50 mg PO BID 0RF levetiracetam 500 mg tablet 500 mg PO BID 0RF ondansetron HCl 4 mg tablet 4 mg PO Q8H PRN (Reason: Nausea And Vomiting) 0RF isosorbide mononitrate 30 mg tablet extended release 24 hr 60 mg PO QAM 0RF clopidogrel 75 mg tablet 75 mg PO QAM 0RF amlodipine 5 mg tablet 5 mg PO QAM 0RF aspirin 81 mg Tablet,Delayed Release (Dr/Ec) 81 mg PO QAM 0RF qofjumlqfd-gkmyjzmnptosf-eqbp 50-325-40 mg tablet 2 tab PO BID PRN (Reason: Migraine Headache) 0RF nitroglycerin [Nitrostat] 0.4 mg Tablet, Sublingual 0.4 mg SUBLINGUAL Q5M PRN (Reason: Chest Pain) 0RF Rx Instructions: do not exceed 3 doses per episode lisinopril-hydrochlorothiazide 10-12.5 mg tablet 1 tab PO DAILY PRN (Reason: Blood Pressure) 0RF albuterol sulfate [ProAir HFA] 90 mcg/actuation HFA aerosol inhaler 2 puff INHALATION Q4H PRN (Reason: Shortness Of Breath) 0RF ranolazine 500 mg tablet extended release 12 hr 500 mg PO BID 0RF insulin aspart U-100 [Novolog Flexpen U-100 Insulin] 100 unit/mL (3 mL) insulin pen See Rx Instructions .ROUTE .COMPLEX Qty: 15 0RF Rx Instructions: Inject, 3 times daily, after meals, based on sliding scale provided Lantus Solostar U-100 Insulin 100 unit/mL (3 mL) Insulin Pen 5 unit SUBCUT DAILY Qty: 15 0RF Discharge Orders: Discharge ED (Routine); Ordered 09/16/21 Ordered By: Haider Fan Discharge Diet: Diabetic Discharge Activity: Increase activity as tolerated Patient Instructions: Syncope (DC), Anemia (ED) Activity Restrictions/Additional Instructions: Follow-up with medical provider as directed in the next 3 to 5 days for reevaluation and have PCP recheck CBC/hemoglobin levels. Take medications as prescribed. Return to the ER or your medical provider if condition worsens. Please read and understand discharge instructions. Thank you for choosing [facility] for your healthcare needs today. Please realize this is an emergency room and that we are providing you with a medical screening exam and this may not be complete and all inclusive of all the testing and or work up that you may need to determine your ailment or severity of your illness. It is very important that you follow up as instructed or that you return to the Emergency Department should you have concerns or if your condition changes or worsens in any way. Coding Level of Care Code ED Peoples[employer] Consultant for Chg Fwd Exam Comprehensive Documented by User: Kam Martinez DO 09/17/21 15:43 HPI - Dizziness General: Chief Complaint: Dizziness Stated Complaint: L ARM/LEG WEAKNESS Time Seen by Provider: 09/16/21 10:29 PFS ED PFSH: Medical History Atherosclerotic heart disease of [place] coronary artery with unstable angina pectoris Benign essential HTN CAD (coronary artery disease) 9stents Chest pain CVA (cerebrovascular accident) Diabetes Dyslipidemia (high LDL; low HDL) Former smoker HTN (hypertension) Surgical History History of appendectomy Family History Other No pertinent family history Social History Smoking and tobacco status: former smoker Alcohol intake: never Housing: House Course Vital Signs: Vital signs: Vital Signs Temperature 97.9 F 09/16/21 15:03 Pulse Rate 95 09/16/21 15:03 Respiratory Rate 14 09/16/21 15:03 Blood Pressure 136/84 09/16/21 15:03 Pulse Oximetry 100 09/16/21 15:03 MDM - Dizziness Medical Decision Making Patient is a 46-year-old male comes to the ED after having a syncopal episode while walking up a hill. Denies any chest pain or shortness of breath. Patient does feel like he has some left arm and leg weakness along with a headache. Vitals are stable. Exam is benign. Neuro exam shows no deficits. CT of head showed no acute findings. Chest x-ray was negative for any acute findings. Patient's hemoglobin was 9.7, but going over his history he has chronic anemia and usually runs in the 9-10 range. The rest of CBC and CMP were unremarkable. Troponin was negative. EKG showed normal sinus rhythm with no acute findings. Urine drug screen was positive for barbiturates. Blood alcohol was negative. All of patient's symptoms resolved and he was feeling normal while here in the ED. Patient was diagnosed with an episode of syncope and anemia and was discharged home. Patient needed a refill on his insulin so I sent him home with a prescription to refill his insulin meds. He was told to follow-up with his primary care doctor in the next 3 to 5 days for reevaluation and to have his hemoglobin levels rechecked. Return to ED precautions given. Patient understood and agree with plan. Chart reviewed and patient discussed with midlevel. Agree with assessment and plan. Lab Data : 09/16/21 11:20 09/16/21 11:20 Radiology Impressions Chest X-Ray 09/16/21 10:30 IMPRESSION: 1. No acute cardiopulmonary finding. Head CT 09/16/21 10:30 IMPRESSION: Negative head CT. Laboratory Results WBC 9.1 10^3/uL (4.0-10.0) 09/16/21 11:20 RBC 3.81 10^6/uL (4.1-5.3) L 09/16/21 11:20 Hgb 9.7 g/dL (11.7-16.6) L 09/16/21 11:20 Hct 30.9 % (42.0-52.0) L 09/16/21 11:20 MCV 81.1 fl (80-94) 09/16/21 11:20 MCH 25.5 pg (28.0-34.0) L 09/16/21 11:20 MCHC 31.4 g/dL (30.0-36.0) 09/16/21 11:20 RDW 15.0 % (12.1-15.1) 09/16/21 11:20 Plt Count 280 10^3/cmm (130-400) 09/16/21 11:20 MPV 11.6 fL (7.4-10.4) H 09/16/21 11:20 Neut % (Auto) 64.8 % 09/16/21 11:20 Lymph % (Auto) 19.5 % 09/16/21 11:20 [place] % (Auto) 11.3 % 09/16/21 11:20 Eos % (Auto) 1.6 % 09/16/21 11:20 Baso % (Auto) 0.7 % 09/16/21 11:20 Neut # (Auto) 5.92 10^3/uL (1.8-7.7) 09/16/21 11:20 Lymph # (Auto) 1.8 10^3/uL (0.8-4.8) 09/16/21 11:20 [place] # (Auto) 1.0 10^3/uL (0.2-0.9) H 09/16/21 11:20 Eos # (Auto) 0.2 10^3/uL (0.0-0.8) 09/16/21 11:20 Baso # (Auto) 0.1 10^3/uL (0.0-0.1) 09/16/21 11:20 Nucleated RBC % (auto) 0 % 09/16/21 11:20 Nucleated RBCs # 0.0 /100WBC 09/16/21 11:20 Sodium 137 mmol/L (136-145) 09/16/21 11:20 Potassium 3.9 mmol/L (3.5-5.1) 09/16/21 11:20 Chloride 105 mmol/L (98-107) 09/16/21 11:20 Carbon Dioxide 24 mmol/L (22-29) 09/16/21 11:20 Anion Gap 11.9 (5-19) 09/16/21 11:20 BUN 14 mg/dL (6-20) 09/16/21 11:20 Creatinine 0.9 mg/dL (0.7-1.2) 09/16/21 11:20 GFR Calculation 91.7 mL/min (90-130) 09/16/21 11:20 Glucose 81 mg/dL (65-115) 09/16/21 11:20 Calculated Osmolality 284 mOsm/kg (285-295) L 09/16/21 11:20 Calcium 8.8 mg/dL (8.5-10.5) 09/16/21 11:20 Total Bilirubin 0.2 mg/dL (0.15-1.2) 09/16/21 11:20 AST 10 U/L (0-40) 09/16/21 11:20 ALT 16 U/L (0-41) 09/16/21 11:20 Alkaline Phosphatase 57 IU/L (40-130) 09/16/21 11:20 Troponin T Baseline 17 ng/L (0-15) H 09/16/21 11:20 Troponin T 120 Minute 16.25 ng/L (0-15) H 09/16/21 13:05 Delta Troponin T -0.75 ABS# (0-10) L 09/16/21 13:05 Total Protein 6.0 g/dL (6.6-8.7) L 09/16/21 11:20 Albumin 3.8 g/dL (3.5-5.2) 09/16/21 11:20 Globulin 2.2 g/dL (1.3-4.6) 09/16/21 11:20 Urine Color Yellow (Yellow) 09/16/21 11:20 Urine Appearance Clear (CLEAR) 09/16/21 11:20 Urine pH 6 (5-7) 09/16/21 11:20 Ur Specific [place] 1.010 (1.005-1.030) 09/16/21 11:20 Urine Protein Neg (Negative) 09/16/21 11:20 Urine Glucose (UA) Norm (Normal) 09/16/21 11:20 Urine Ketones Negative (Negative) 09/16/21 11:20 Urine Blood Neg (Negative) 09/16/21 11:20 Urine Nitrate Negative (Negative) 09/16/21 11:20 Urine Bilirubin Neg (Negative) 09/16/21 11:20 Urine Urobilinogen Neg mg/dL (Negative) 09/16/21 11:20 Ur Leukocyte Esterase Negative (Negative) 09/16/21 11:20 Urine Opiates Screen Negative ng/mL (Negative) 09/16/21 11:20 Ur Barbiturates Screen Positive ng/mL (Negative) H 09/16/21 11:20 Ur Phencyclidine Scrn Negative ng/mL (Negative) 09/16/21 11:20 Ur Amphetamines Screen Negative ng/mL (Negative) 09/16/21 11:20 U Benzodiazepines Scrn Negative ng/mL (Negative) 09/16/21 11:20 Urine Cocaine Screen Negative ng/mL (Negative) 09/16/21 11:20 U Marijuana (THC) Screen Negative ng/mL (Negative) 09/16/21 11:20 Ethyl Alcohol < 10 mg/dL (0-10) 09/16/21 11:20 Discharge Plan Discharge Patient Disposition: Home Clinical Impression: Episode of syncope Qualifiers: Syncope type: unspecified Qualified Code(s): R55 - Syncope and collapse Anemia Qualifiers: Anemia type: unspecified type Qualified Code(s): D64.9 - Anemia, unspecified Condition: Stable Prescriptions: New Lantus Solostar U-100 Insulin 100 unit/mL (3 mL) insulin pen 5 unit SUBCUT DAILY Qty: 15 0RF Novolog Flexpen U-100 Insulin 100 unit/mL (3 mL) insulin pen 1 unit SUBCUT TID Qty: 3 0RF Rx Instructions: Inject 3 times daily after meals based on sliding scale. No Action quetiapine 25 mg tablet See Rx Instructions .ROUTE .COMPLEX 0RF Rx Instructions: 25MG PO AT 09:00 AND 15:00 AND 50MG PO AT BEDTIME atorvastatin 40 mg tablet 40 mg PO BEDTIME 0RF metoprolol tartrate 100 mg tablet 50 mg PO BID 0RF levetiracetam 500 mg tablet 500 mg PO BID 0RF ondansetron HCl 4 mg tablet 4 mg PO Q8H PRN (Reason: Nausea And Vomiting) 0RF isosorbide mononitrate 30 mg tablet extended release 24 hr 60 mg PO QAM 0RF clopidogrel 75 mg tablet 75 mg PO QAM 0RF amlodipine 5 mg tablet 5 mg PO QAM 0RF aspirin 81 mg Tablet,Delayed Release (Dr/Ec) 81 mg PO QAM 0RF bxhelgyhje-dtwteoxxsgtvd-xxcp 50-325-40 mg tablet 2 tab PO BID PRN (Reason: Migraine Headache) 0RF nitroglycerin [Nitrostat] 0.4 mg Tablet, Sublingual 0.4 mg SUBLINGUAL Q5M PRN (Reason: Chest Pain) 0RF Rx Instructions: do not exceed 3 doses per episode lisinopril-hydrochlorothiazide 10-12.5 mg tablet 1 tab PO DAILY PRN (Reason: Blood Pressure) 0RF albuterol sulfate [ProAir HFA] 90 mcg/actuation HFA aerosol inhaler 2 puff INHALATION Q4H PRN (Reason: Shortness Of Breath) 0RF ranolazine 500 mg tablet extended release 12 hr 500 mg PO BID 0RF insulin aspart U-100 [Novolog Flexpen U-100 Insulin] 100 unit/mL (3 mL) insulin pen See Rx Instructions .ROUTE .COMPLEX Qty: 15 0RF Rx Instructions: Inject, 3 times daily, after meals, based on sliding scale provided Lantus Solostar U-100 Insulin 100 unit/mL (3 mL) Insulin Pen 5 unit SUBCUT DAILY Qty: 15 0RF Discharge Orders: Discharge ED (Routine); Ordered 09/16/21 Ordered By: Haider Fan Discharge Diet: Diabetic Discharge Activity: Increase activity as tolerated Patient Instructions: Syncope (DC), Anemia (ED) Activity Restrictions/Additional Instructions: Follow-up with medical provider as directed in the next 3 to 5 days for reevaluation and have PCP recheck CBC/hemoglobin levels. Take medications as prescribed. Return to the ER or your medical provider if condition worsens. Please read and understand discharge instructions. Thank you for choosing [facility] for your healthcare needs today. Please realize this is an emergency room and that we are providing you with a medical screening exam and this may not be complete and all inclusive of all the testing and or work up that you may need to determine your ailment or severity of your illness. It is very important that you follow up as instructed or that you return to the Emergency Department should you have concerns or if your condition changes or worsens in any way. Coding Level of Care Code ED [employer] Consultant for Marcelino Stephen Exam Comprehensive
[2021-09-16 11:33] LABS: Add Urine Microscopic? NO; Charge for UA Resulting for Rev
[2021-09-16 11:35] LABS: Basophils # 0.1 10^3/uL (0.0-0.1); Basophils % 0.7 %; Eosinophils # 0.2 10^3/uL (0.0-0.8); Eosinophils % 1.6 %; Hematocrit 30.9 % (42.0-52.0); Hemoglobin 9.7 g/dL (11.7-16.6); Lymphocytes # 1.8 10^3/uL (0.8-4.8); Lymphocytes % 19.5 %; Mean Corpuscular HGB Conc 31.4 g/dL (30.0-36.0); Mean Corpuscular Hemoglobin 25.5 pg (28.0-34.0); Mean Corpuscular Volume 81.1 fl (80-94); Mean Platelet Volume 11.6 fL (7.4-10.4); Monocytes % 11.3 %; Neutrophils # 5.92 10^3/uL (1.8-7.7); Neutrophils % 64.8 %; Nucleated Red Blood Cells % 0 %; Platelet Count 280 10^3/cmm (130-400); Red Blood Count 3.81 10^6/uL (4.1-5.3); White Blood Count 9.1 10^3/uL (4.0-10.0)
[2021-09-16 11:39] LABS: Bilirubin Urine Neg (Negative); Blood Urine Neg (Negative); Glucose Urine UA Norm (Normal); Ketones Urine Negative (Negative); Leukocyte Esterase Urine Negative (Negative); Nitrate Urine Negative (Negative); Protein Urine Neg (Negative); Urine Appearance Clear (CLEAR); Urine Color Yellow (Yellow); Urobilinogen Urine Neg (Negative); pH Urine 6 (5-7)
[2021-09-16 11:46] LABS: Amphetamines Screen Urine Negative (Negative); Barbiturates Screen Urine Positive (Negative); Benzodiazepines Screen Urine Negative (Negative); Cocaine Screen Urine Negative (Negative); Opiate Screen Urine Negative (Negative); PCP Screen Urine Negative (Negative); THC Screen Urine Negative (Negative)
[2021-09-16 11:57] LABS: Alanine Aminotransferase 16 U/L (0-41); Albumin Level 3.8 g/dL (3.5-5.2); Alkaline Phosphatase 57 IU/L (40-130); Anion Gap 11.9 (5-19); Aspartate Amino Transferase 10 U/L (0-40); Blood Urea Nitrogen 14 mg/dL (6-20); Calcium 8.8 mg/dL (8.5-10.5); Carbon Dioxide 24 mmol/L (22-29); Chloride 105 mmol/L (98-107); Globulin 2.2 g/dL (1.3-4.6); Glomerular Filtration Rate 91.7 mL/min (90-130); Glucose 81 mg/dL (65-115); Osmolality Calculated 284 mOsm/kg (285-295); Potassium 3.9 mmol/L (3.5-5.1); Sodium 137 mmol/L (136-145); Total Bilirubin 0.2 mg/dL (0.15-1.2)
[2021-09-16 11:58] LABS: Troponin(5th) Baseline 17 ng/L (0-15)
[2021-09-16 12:03] LABS: Alcohol Level < 10 mg/dL (0-10)
[2021-09-16] MEDS: HYDROcodone-acetaminophen 5-325 mg Tablet 1 TAB PO (12:56)
[2021-09-16 13:00] VITALS: BP 137/90; PULSE 95; RESP 16; O2SAT 100
[2021-09-16 13:36] LABS: Troponin 5 2HR 16.25 ng/L (0-15)
[2021-09-16 13:43] LABS: Troponin 5 2HR Delta -0.75 ABS# (0-10)
[2021-09-16 14:58] VITALS: BP 136/84; PULSE 96; RESP 14; TEMP 36.6; O2SAT 100
[2021-09-16 15:03] VITALS: BP 136/84; PULSE 95; RESP 14; TEMP 36.6; O2SAT 100
== END 2021-09-16 15:00 | disposition home or self-care (01) ==
PROVIDERS: Emergency Provider Physician Assistant
DX: R55 Syncope and collapse (principal); D64.9 Anemia, unspecified; R42 Dizziness and giddiness; I25.110 Atherosclerotic heart disease of native coronary artery with unstable angina pectoris; I10 Essential (primary) hypertension; E11.9 Type 2 diabetes mellitus without complications; E78.5 Hyperlipidemia, unspecified; Z79.02 Long term (current) use of antithrombotics/antiplatelets; Z79.82 Long term (current) use of aspirin; Z79.4 Long term (current) use of insulin; Z87.891 Personal history of nicotine dependence
CPT/HCPCS: 70450; 71045; 80053; 80306; 80307; 81003; 84484; 85025; 93005; 99284

== ENCOUNTER 2021-09-20 13:55 | Emergency (ER) | payer MEDICAID, SELFPAY ==
[2021-09-20] VITALS (9 sets, daily range): BP systolic 94–184; BP diastolic 54–156; PULSE 81–110; RESP 14–18; TEMP 36.8; O2SAT 96–100; BMI 21.9
--- NOTE | 2021-09-20 14:10 | ECG_ITS ---
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 Measurements Intervals [place] Rate: 108 P: 66 SC: 137 QRS: 70 QRSD: 82 T: 59 QT: 307 QTc: 413 Interpretive Statements SINUS TACHYCARDIA MODERATE VOLTAGE CRITERIA FOR LVH, CONSIDER NORMAL VARIANT [MEETS CRITERIA IN ONE OF: R(aVL), S(V1), R(V5), R(V5/V6)+S(V1)] ABNORMAL RHYTHM ECG INTERPRETATION BASED ON A DEFAULT AGE OF 40 YEARS Compared to ECG 09/16/2021 11:11:30 Sinus rhythm no longer present Electronically Signed On 09-21-2021 9:35:20 CDT by Richie Macias M.D. [id number]
[2021-09-20 14:20] LABS: Glucose Point of Care 134 mg/dL (70-110)
--- NOTE | 2021-09-20 15:37 | W.ED.CHESTPA ---
HPI - Chest Pain General: Chief Complaint: Chest Pain Stated Complaint: cp Time Seen by Provider: 09/20/21 15:37 History of Present Illness: Mr. June is a 46-year-old gentleman with chest pain, CAD, history of PCI, history of known small vessel cardiac disease, history of TPA administration, who presents to the emergency department due to chest pain. He reports onset of symptoms was approximately 5 minutes prior to arrival. He describes severe aching pain in the left anterior chest associated with shortness of breath and reported episodes of syncope. He has had multiple recent hospitalizations and undergone cardiac evaluation previously. He denies other significant changes in health including denying infectious symptoms. He does have a area of contact dermatitis on the abdomen which is itchy. Overall onset of symptoms was sudden, course has persisted. Intensity is moderate to severe. No other specific changes in health, exacerbating, or alleviating factors identified. Onset (ago): minute(s) Timing of current episode: constant Prior episodes: Yes Onset: during rest Pain location: left chest Quality: aching Associated symptoms: Reports dyspnea and syncope Review of Systems General: Reports: 10 or more systems reviewed and unremarkable except in HPI and below Card: Reports: syncope Resp: Reports: dyspnea PFSH ED PFSH: Medical History Atherosclerotic heart disease of [place] coronary artery with unstable angina pectoris Benign essential HTN CAD (coronary artery disease) 9stents Chest pain CVA (cerebrovascular accident) Diabetes Dyslipidemia (high LDL; low HDL) Former smoker HTN (hypertension) Surgical History History of appendectomy Family History Other No pertinent family history Social History Smoking and tobacco status: former smoker Alcohol intake: never Housing: House Physical Exam Const: COMMON NORMALS: patient oriented x3 and alert GENERAL APPEARANCE: cooperative and well developed HENMT: COMMON NORMALS: normocephalic and atraumatic HEAD & SCALP: normocephalic and atraumatic Eye: COMMON NORMALS: conjunctivae normal CONJUNCTIVA: Yes conjunctivae normal SCLERA: sclerae normal Neck/C-Spine: COMMON NORMALS: supple GENERAL: Yes trachea midline Resp: COMMON NORMALS: normal respiratory effort EFFORT & INSPECTION: Yes able to speak in complete sentences Cardio: COMMON NORMALS: regular rhythm RATE: tachycardic RHYTHM: regular rhythm GI: COMMON NORMALS: Soft to palpation PALPATION: Yes Soft to palpation and No Tenderness to palpation present (GI) PERCUSSION: normal to percussion Extremity: GENERAL: Yes normal exam except as noted and No edema Neuro: COMMON NORMALS: patient oriented x3, CN's II-XII intact bilaterally, moves all extremities, no focal motor deficits and no sensory deficits noted SENSORIUM/ORIENTATION: Yes alert and No Orientation impaired Psych: COMMON NORMALS: mental status grossly normal and Normal thought process present THOUGHT PROCESS: Normal thought process present Course ED course: - Patient was seen and evaluated by me at bedside - Patient placed on cardiac monitors, IV access obtained - Initial evaluation notable for exam as above. - Labs and xrays personally interpreted by me. EKG at 1953 and 1754 personally interpreted by me. Sinus rhythm with nonspecific ST segment abnormalities. No STEMI. - Analgesia, fluids, antiemetic given. - Labs notable for minimal leukocytosis, hemoglobin similar to baseline. Metabolic panel without acute abnormality to explain symptoms. Delta troponin at 6 hours after symptom onset is negative. - Imaging notable for no lobar consolidation or pneumothorax. CT head negative for acute pathology. CT abdomen pelvis without obvious pathology to explain symptoms. - Upon serial reexamination after treatment the patient was mildly improved. - Based on patient history, evaluation, and testing as interpreted the most likely cause of the patient's condition is chest pain. I discussed the case with Dr. Macias of the cardiology service for medication recommendations. Patient will have isosorbide mononitrate increased. In the context of recent cardiac evaluation I do not believe that the patient requires repeat admission at this time. - The results of ED evaluation were discussed with the patient including prescriptions and/or symptomatic cares (if applicable) including appropriate and responsible use, followup plan, and return precautions. The patient verbalized understanding and felt safe for discharge. - Patient discharged in satisfactory condition. Note: Click bubbles or prepopulated voss in note writing are used for assistance with data collection and billing and are inherently more limited than narrative and other text portions of this note. Please use narrative for additional clinical history and defer to narrative/free test for any case of contradictory information. If information appears in only free text or click bubble it should be considered present or absent as reported. Please contact note customs entry writer for clarifications of clinical information or contradictory information. MDM is a brief summary, contradictory or erroneous seeming information should be clarified and full note should be reviewed. Vital Signs: Vital signs: Vital Signs Temperature 98.2 F 09/20/21 14:06 Pulse Rate 85 09/20/21 22:18 Respiratory Rate 18 09/20/21 20:06 Blood Pressure 115/60 09/20/21 22:18 Pulse Oximetry 98 09/20/21 22:18 MDM - Chest Pain Medical Decision Making 46-year-old gentleman with cardiac history presenting due to chest pain. Recent cardiac cath performed and likely etiology of chest pain is related to not intervenable lesions/microvascular disease. 6-hour delta troponin negative. Discussed with cardiology. Satisfactory for discharge. Medical Records I reviewed the patient's medical records. Lab Data I reviewed the patient's lab results. : 09/20/21 15:32 09/20/21 19:56 Radiology Impressions Chest X-Ray 09/20/21 15:48 IMPRESSION: 1. No acute abnormality demonstrated. 2. There is no interval change from the prior examination. Head CT 09/20/21 16:33 IMPRESSION: 1. No acute intracranial abnormality demonstrated. 2. There is no interval change from the prior examination. Abdomen/Pelvis CT 09/20/21 18:06 IMPRESSION: 1. The pancreas is unremarkable in appearance. No findings to suggest acute pancreatitis. 2. Mild subcutaneous edema seen in the anterior abdominal wall inferior and right of the umbilicus. This may represent mild infection/cellulitis of the subcutaneous fat versus a small area of contusion in the setting of trauma. No focal fluid collection or hematoma noted. This is new when compared to 09/10/2021. 3. 10 mm right adrenal adenoma measuring 0 Hounsfield units in density. This is unchanged. COMMENTS: Consistent with the [place]'s Incidental Findings Committee white paper (J Am Kizzy Radiol 2017): Any incidental adrenal lesion less than or equal to 1 cm is likely benign. No follow-up imaging is recommended for these lesions per consensus recommendations based on imaging criteria. Further lab evaluation could be pursued if warranted based on clinical findings. Laboratory Results WBC 11.6 10^3/uL (4.0-10.0) H 09/20/21 15:32 RBC 4.46 10^6/uL (4.1-5.3) 09/20/21 15:32 Hgb 11.4 g/dL (11.7-16.6) L 09/20/21: Hct 35.8 % (42.0-52.0) L 09/20/21 15: MCV 80.3 fl (80-94) 09/20/21: MCH 25.6 pg (28.0-34.0) L 09/20/21: MCHC 31.8 g/dL (30.0-36.0) 09/20/21: RDW 15.6 % (12.1-15.1) H 09/20/21: Plt Count 388 10^3/cmm (130-400) 09/20/21: MPV 11.6 fL (7.4-10.4) H 09/20/21 15:32 Neut % (Auto) 71.4 % 09/20/21: Lymph % (Auto) 17.1 % 09/20/21:32 Gilliam % (Auto) 8.3 % 09/20/21: Eos % (Auto) 2.1 % 09/20/21: Baso % (Auto) 0.6 % 09/20/21: Neut # (Auto) 8.30 10^3/uL (1.8-7.7) H 09/20/21 15:32 Lymph # (Auto) 2.0 10^3/uL (0.8-4.8) 09/20/21:32 Gilliam # (Auto) 1.0 10^3/uL (0.2-0.9) H 09/20/21:32 Eos # (Auto) 0.2 10^3/uL (0.0-0.8) 09/20/21: Baso # (Auto) 0.1 10^3/uL (0.0-0.1) 09/20/21: Nucleated RBC % (auto) 0 % 09/20/21: Nucleated RBCs # 0.0 /100WBC 09/20/21 15: Sodium 133 mmol/L (136-145) L 09/20/21 19:56 Potassium 4.1 mmol/L (3.5-5.1) 09/20/21 19:56 Chloride 100 mmol/L (98-107) 09/20/21 19:56 Carbon Dioxide 23 mmol/L (22-29) 09/20/21 19:56 Anion Gap 14.1 (5-19) 09/20/21 19:56 BUN 24 mg/dL (6-20) H 09/20/21 19:56 Creatinine 1.0 mg/dL (0.7-1.2) 09/20/21 19:56 GFR Calculation 81.2 mL/min (90-130) L 09/20/21 19:56 Glucose 90 mg/dL (65-115) 09/20/21 19:56 POC Glucose 134 mg/dL (70-110) H 09/20/21 14:15 Calculated Osmolality 280 mOsm/kg (285-295) L 09/20/21 19:56 Calcium 9.0 mg/dL (8.5-10.5) 09/20/21 19:56 Total Bilirubin 0.2 mg/dL (0.15-1.2) 09/20/21 15:32 AST 19 U/L (0-40) 09/20/21 15:32 ALT 28 U/L (0-41) 09/20/21 15:32 Alkaline Phosphatase 73 IU/L (40-130) 09/20/21 15:32 Troponin T Baseline 27 ng/L (0-15) H 09/20/21 15:50 Troponin T 120 Minute 32.79 ng/L (0-15) H 09/20/21 17:06 Delta Troponin T 5.79 ABS# (0-10) 09/20/21 17:06 Troponin T Hi Sens 6Hr 26.52 ng/L (0-15) H 09/20/21 19:56 Troponin T Hi Sens 6Hr Delta -0.48 ng/L (0-12) L 09/20/21 19:56 Total Protein 7.0 g/dL (6.6-8.7) 09/20/21 15:32 Albumin 4.5 g/dL (3.5-5.2) 09/20/21 15:32 Globulin 2.5 g/dL (1.3-4.6) 09/20/21 15:32 Lipase 89 U/L (13-60) H 09/20/21 15:32 Urine Color Yellow (Yellow) 09/20/21 18:01 Urine Appearance Clear (CLEAR) 09/20/21 18:01 Urine pH 5 (5-7) 09/20/21 18:01 Ur Specific [place] 1.015 (1.005-1.030) 09/20/21 18:01 Urine Protein Neg (Negative) 09/20/21 18:01 Urine Glucose (UA) Norm (Normal) 09/20/21 18:01 Urine Ketones Negative (Negative) 09/20/21 18:01 Urine Blood Neg (Negative) 09/20/21 18:01 Urine Nitrate Negative (Negative) 09/20/21 18:01 Urine Bilirubin Neg (Negative) 09/20/21 18:01 Urine Urobilinogen Norm mg/dL (Negative) 09/20/21 18:01 Ur Leukocyte Esterase Trace (Negative) H 09/20/21 18:01 Urine RBC 0-4 /hpf (0-2) H 09/20/21 18:01 Urine WBC 0-4 /hpf (0-5) H 09/20/21 18:01 Ur Squamous Epith Cells 0-4 /hpf (0-5) H 09/20/21 18:01 Amorphous Sediment Not Reportable 09/20/21 18:01 Urine Bacteria Trace /hpf (NONE) 09/20/21 18:01 Hyaline Casts 0-4 /lpf H 09/20/21 18:01 Urine Mucus 3+ /hpf 09/20/21 18:01 Discharge Plan Discharge Patient Disposition: Home Clinical Impression: Dehydration, Elevated lipase Chest pain Qualifiers: Chest pain type: unspecified Qualified Code(s): R07.9 - Chest pain, unspecified Condition: Stable Prescriptions: New isosorbide mononitrate 60 mg tablet extended release 24 hr 60 mg PO BID Qty: 60 0RF Discontinued isosorbide mononitrate 30 mg tablet extended release 24 hr 60 mg PO QAM 0RF No Action quetiapine 25 mg tablet See Rx Instructions .ROUTE .COMPLEX 0RF Rx Instructions: 25MG PO AT 09:00 AND 15:00 AND 50MG PO AT BEDTIME atorvastatin 40 mg tablet 40 mg PO BEDTIME 0RF metoprolol tartrate 100 mg tablet 50 mg PO BID 0RF levetiracetam 500 mg tablet 500 mg PO BID 0RF ondansetron HCl 4 mg tablet 4 mg PO Q8H PRN (Reason: Nausea And Vomiting) 0RF clopidogrel 75 mg tablet 75 mg PO QAM 0RF amlodipine 5 mg tablet 5 mg PO QAM 0RF aspirin 81 mg Tablet,Delayed Release (Dr/Ec) 81 mg PO QAM 0RF xmxsfnbebk-frdqhydyydoeh-yvab 50-325-40 mg tablet 2 tab PO BID PRN (Reason: Migraine Headache) 0RF nitroglycerin [Nitrostat] 0.4 mg Tablet, Sublingual 0.4 mg SUBLINGUAL Q5M PRN (Reason: Chest Pain) 0RF Rx Instructions: do not exceed 3 doses per episode lisinopril-hydrochlorothiazide 10-12.5 mg tablet 1 tab PO DAILY PRN (Reason: Blood Pressure) 0RF albuterol sulfate [ProAir HFA] 90 mcg/actuation HFA aerosol inhaler 2 puff INHALATION Q4H PRN (Reason: Shortness Of Breath) 0RF ranolazine 500 mg tablet extended release 12 hr 500 mg PO BID 0RF insulin aspart U-100 [Novolog Flexpen U-100 Insulin] 100 unit/mL (3 mL) insulin pen See Rx Instructions .ROUTE .COMPLEX Qty: 15 0RF Rx Instructions: Inject, 3 times daily, after meals, based on sliding scale provided Lantus Solostar U-100 Insulin 100 unit/mL (3 mL) Insulin Pen 5 unit SUBCUT DAILY Qty: 15 0RF Lantus Solostar U-100 Insulin 100 unit/mL (3 mL) insulin pen 5 unit SUBCUT DAILY Qty: 15 0RF Novolog Flexpen U-100 Insulin 100 unit/mL (3 mL) insulin pen 1 unit SUBCUT TID Qty: 3 0RF Rx Instructions: Inject 3 times daily after meals based on sliding scale. Protonix 40 mg tablet,delayed release (DR/EC) 40 mg PO DAILY 56 Days 0RF ondansetron 4 mg tablet,disintegrating 4 mg PO Q6H PRN (Reason: nausea and vomiting) Qty: 14 0RF Discharge Orders: Discharge ED (Routine); Ordered 09/20/21 Ordered By: Harjinder Bowen Discharge Diet: Advance as tolerated and Clear Liquid Discharge Activity: Increase activity as tolerated Activity Restrictions/Additional Instructions: Thank you for visiting the emergency department. You were seen and evaluated for chest pain. The exact cause of your symptoms is unclear, given your complex cardiac history may be still related to small vessel changes. In discussion with cardiology your isosorbide mononitrate will be increased from 60 mg once daily to 60 mg twice daily. Please continue all your other medications. Your lipase was mildly elevated, other symptoms are not consistent with pancreatitis however if symptoms were to worsen this is a consideration. Please restart a clear liquid diet and advance as tolerated for the next few days. Please follow-up with your primary care provider. Please follow-up with your dinkey engine operator. Please return to the emergency department for worsening symptoms or anything else that you are concerned about and feel needs emergency department evaluation. Coding Level of Care Code ED Government Clerk for Marcelino Stephen
[2021-09-20 15:46] LABS: Basophils # 0.1 10^3/uL (0.0-0.1); Basophils % 0.6 %; Eosinophils # 0.2 10^3/uL (0.0-0.8); Eosinophils % 2.1 %; Hematocrit 35.8 % (42.0-52.0); Hemoglobin 11.4 g/dL (11.7-16.6); Lymphocytes % 17.1 %; Mean Corpuscular HGB Conc 31.8 g/dL (30.0-36.0); Mean Corpuscular Hemoglobin 25.6 pg (28.0-34.0); Mean Corpuscular Volume 80.3 fl (80-94); Mean Platelet Volume 11.6 fL (7.4-10.4); Monocytes % 8.3 %; Neutrophils % 71.4 %; Nucleated Red Blood Cells % 0 %; Platelet Count 388 10^3/cmm (130-400); Red Blood Count 4.46 10^6/uL (4.1-5.3); Red Cell Distribution Width 15.6 % (12.1-15.1); White Blood Count 11.6 10^3/uL (4.0-10.0)
--- NOTE | 2021-09-20 15:48 | XRR_ITS ---
PROCEDURE INFORMATION: Exam: XR Chest Exam date and time: 09/20/2021 4:08 PM Age: 46 years old Clinical indication: Pain; Chest pressure; Additional info: Chest pain TECHNIQUE: Imaging protocol: XR of the chest. Views: 1 view. COMPARISON: CR XR chest 1V portable [id number] 09/16/2021 10:38 AM FINDINGS: Lungs: No consolidation. Pleural spaces: No pleural effusion. No pneumothorax. Heart/Mediastinum: No cardiomegaly. Bones/joints: Unremarkable. XR/XR chest 1V portable [id number] IMPRESSION: 1. No acute abnormality demonstrated. 2. There is no interval change from the prior examination.
[2021-09-20] MEDS: lactated ringers 1,000 ML 999 ML IV (15:55)
[2021-09-20 16:03] LABS: Alanine Aminotransferase 28 U/L (0-41); Albumin Level 4.5 g/dL (3.5-5.2); Alkaline Phosphatase 73 IU/L (40-130); Aspartate Amino Transferase 19 U/L (0-40); Blood Urea Nitrogen 27 mg/dL (6-20); Carbon Dioxide 25 mmol/L (22-29); Chloride 102 mmol/L (98-107); Creatinine Clr Calc Pharmacy 54.2177; Globulin 2.5 g/dL (1.3-4.6); Glomerular Filtration Rate 47.2 mL/min (90-130); Glucose 95 mg/dL (65-115); Lipase 89 U/L (13-60); Osmolality Calculated 295 mOsm/kg (285-295); Sodium 140 mmol/L (136-145); Total Bilirubin 0.2 mg/dL (0.15-1.2)
[2021-09-20 16:09] LABS: Anion Gap 17.2 (5-19); Potassium 4.2 mmol/L (3.5-5.1)
[2021-09-20 16:25] LABS: Troponin(5th) Baseline 27 ng/L (0-15)
[2021-09-20] MEDS: lidocaine 2% viscous 15 ML, aluminum-mag hydrox-simethicon 30 ML, sucralfate oral liq 1 GM PO (16:30)
[2021-09-20] MEDS: fentaNYL 50 mcg/mL INJ 2mL IVP ×2 (16:32→22:13)
--- NOTE | 2021-09-20 16:33 | CTR_ITS ---
PROCEDURE INFORMATION: Exam: CT Head Without Contrast Exam date and time: 09/20/2021 4:46 PM Age: 46 years old Clinical indication: Syncope and collapse; Additional info: Reported syncope TECHNIQUE: Imaging protocol: Computed tomography of the head without contrast. Radiation optimization: All CT scans at this facility use at least one of these dose optimization techniques: automated exposure control; mA and/or kV adjustment per patient size (includes targeted exams where dose is matched to clinical indication); or iterative reconstruction. COMPARISON: CT head wo con* [id number] 09/16/2021 10:50 AM RADIATION DOSE METRICS: Total DLP (mGy-cm): 911.26 FINDINGS: Brain: Unremarkable. No hemorrhage. No significant white matter disease. No edema. Cerebral ventricles: No ventriculomegaly. Paranasal sinuses: Visualized sinuses are unremarkable. No fluid levels. Mastoid air cells: Unremarkable as visualized. No mastoid effusion. Bones/joints: Unremarkable. No acute fracture. Soft tissues: Unremarkable. CT/CT head wo con* [id number] IMPRESSION: 1. No acute intracranial abnormality demonstrated. 2. There is no interval change from the prior examination.
[2021-09-20 17:27] LABS: Troponin 5 2HR 32.79 ng/L (0-15)
[2021-09-20 17:56] LABS: Troponin 5 2HR Delta 5.79 ABS# (0-10)
--- NOTE | 2021-09-20 17:58 | ECG_ITS ---
[facility] Test Date: 2021-09-20 Pat Name: Alonso June Department: Room: Gender: Male Photo Technologist: : 1975 Requested By: Harjinder Bowen Order Number: [id number] Janel MD: Richie Macias M.D. Measurements Intervals [place] Rate: 84 P: 68 SC: 159 QRS: 68 QRSD: 84 T: 60 QT: 340 QTc: 402 Interpretive Statements SINUS RHYTHM MODERATE VOLTAGE CRITERIA FOR LVH, CONSIDER NORMAL VARIANT [MEETS CRITERIA IN ONE OF: R(aVL), S(V1), R(V5), R(V5/V6)+S(V1)] Compared to ECG 09/20/2021 14:04:30 Sinus tachycardia no longer present Electronically Signed On 09-21-2021 9:40:57 CDT by Richie Macias M.D. [id number]
--- NOTE | 2021-09-20 18:06 | CTR_ITS ---
PROCEDURE INFORMATION: Exam: CT Abdomen And Pelvis Without Contrast Exam date and time: 09/20/2021 7:28 PM Age: 46 years old Clinical indication: Abnormal findings; Abnormal lab test; Abnormal kidney function lab tests and elevated lipase; Prior surgery; Surgery date: 6+ months; Surgery type: Appy; Patient HX: Abn labs, ? pancreatitis; Additional info: Hal, pain, ? obstruction, lipase elevated ? pancreatitis TECHNIQUE: Imaging protocol: Computed tomography of the abdomen and pelvis without contrast. Radiation optimization: All CT scans at this facility use at least one of these dose optimization techniques: automated exposure control; mA and/or kV adjustment per patient size (includes targeted exams where dose is matched to clinical indication); or iterative reconstruction. COMPARISON: CT abdomen pelvis w con* [id number] 09/10/2021 9:58 PM RADIATION DOSE METRICS: Total DLP (mGy-cm): 875.56 FINDINGS: Lungs: The lung bases appear unremarkable. Liver: The liver is unremarkable in appearance. Gallbladder and bile ducts: No calcified gallstones in the gallbladder. No gallbladder wall thickening. No pericholecystic fluid. No biliary dilatation. Pancreas: The pancreas is normal in appearance. No pancreatic duct dilatation. Spleen: The spleen is normal in size and appearance. Adrenal glands: The adrenal glands appear within normal limits. Left adrenal gland is unremarkable. 10 mm right adrenal adenoma measuring 0 Hounsfield units in density. Kidneys and ureters: Nonobstructing bilateral 2 mm renal calculi. No hydronephrosis. Ureters appear normal. No obstructive uropathy. Stomach and bowel: No acute gastric abnormality demonstrated. Moderate retained stool throughout the colon. No inflammatory change of the colon. Appendix: Postop changes near the cecum, consistent with appendectomy. Intraperitoneal space: No pneumoperitoneum. No significant fluid collection. Vasculature: The aorta is atherosclerotic. No aortic aneurysm. Lymph nodes: No pathologically enlarged lymph nodes. Urinary bladder: The urinary bladder is unremarkable in appearance. Reproductive: Unremarkable as visualized. Bones/joints: Unremarkable. No acute osseous abnormality. Soft tissues: Mild subcutaneous edema seen in the anterior abdominal wall inferior and right of the umbilicus. This may represent mild infection/cellulitis of the subcutaneous fat versus a small area of contusion in the setting of trauma. No focal fluid collection or hematoma noted. CT/CT abdomen pelvis wo con [id number] IMPRESSION: 1. The pancreas is unremarkable in appearance. No findings to suggest acute pancreatitis. 2. Mild subcutaneous edema seen in the anterior abdominal wall inferior and right of the umbilicus. This may represent mild infection/cellulitis of the subcutaneous fat versus a small area of contusion in the setting of trauma. No focal fluid collection or hematoma noted. This is new when compared to 09/10/2021. 3. 10 mm right adrenal adenoma measuring 0 Hounsfield units in density. This is unchanged. COMMENTS: Consistent with the [place] [employer]'s Incidental Findings Committee white paper (J Am Kizzy Radiol 2017): Any incidental adrenal lesion less than or equal to 1 cm is likely benign. No follow-up imaging is recommended for these lesions per consensus recommendations based on imaging criteria. Further lab evaluation could be pursued if warranted based on clinical findings.
[2021-09-20 18:26] LABS: Add Urine Microscopic? YES; Bilirubin Urine Neg (Negative); Blood Urine Neg (Negative); Glucose Urine UA Norm (Normal); Ketones Urine Negative (Negative); Leukocyte Esterase Urine Trace (Negative); Nitrate Urine Negative (Negative); Protein Urine Neg (Negative); Specific Gravity, Urine 1.015 (1.005-1.030); Urine Appearance Clear (CLEAR); Urine Color Yellow (Yellow); Urobilinogen Urine Norm (Negative); pH Urine 5 (5-7)
[2021-09-20 18:27] LABS: Add Urine Culture? No; Bacteria Urine TRACE /hpf; Hyaline Casts Urine 0-4 /lpf; Mucus Urine 3+ /hpf; RBC Urine 0-4 /hpf (0-2); Squamous Epithelial Cell Urine 0-4 /hpf (0-5); WBC Urine 0-4 /hpf (0-5)
[2021-09-20 20:30] LABS: Troponin 5 6HR 26.52 ng/L (0-15)
[2021-09-20] MEDS: ondansetron 2 mg/ML SDV 2 mL 4 MG IVP (20:30)
[2021-09-20 20:33] LABS: Troponin 5 6HR Delta -0.48 ng/L (0-12)
[2021-09-20 21:08] LABS: Anion Gap 14.1 (5-19); Blood Urea Nitrogen 24 mg/dL (6-20); Carbon Dioxide 23 mmol/L (22-29); Chloride 100 mmol/L (98-107); Glomerular Filtration Rate 81.2 mL/min (90-130); Glucose 90 mg/dL (65-115); Osmolality Calculated 280 mOsm/kg (285-295); Potassium 4.1 mmol/L (3.5-5.1); Sodium 133 mmol/L (136-145)
--- NOTE | 2021-09-20 21:58 | ECG_ITS ---
[facility] Test Date: 2021-09-20 Pat Name: Alonso June Department: Room: Gender: Male Crtt: : 1975 Requested By: Harjinder Bowen Order Number: [id number] Janel MD: Richie Macias M.D. Measurements Intervals [place] Rate: 94 P: 64 MI: 148 QRS: 62 QRSD: 89 T: 51 QT: 325 QTc: 407 Interpretive Statements SINUS RHYTHM MINIMAL VOLTAGE CRITERIA FOR LVH, CONSIDER NORMAL VARIANT [MEETS CRITERIA IN ONE OF: R(aVL), S(V1), R(V5), R(V5/V6)+S(V1)] Compared to ECG 09/20/2021 17:54:05 No significant changes Electronically Signed On 09-21-2021 9:43:39 CDT by Richie Macias M.D. [id number]
== END 2021-09-20 22:22 | disposition home or self-care (01) ==
PROVIDERS: Emergency Provider Emergency Medicine
DX: R07.9 Chest pain, unspecified (principal); E86.0 Dehydration; R78.89 Finding of other specified substances, not normally found in blood; I25.10 Atherosclerotic heart disease of native coronary artery without angina pectoris; I10 Essential (primary) hypertension; Z86.73 Personal history of transient ischemic attack (TIA), and cerebral infarction without residual deficits; E11.9 Type 2 diabetes mellitus without complications; E78.5 Hyperlipidemia, unspecified; Z87.891 Personal history of nicotine dependence; Z95.5 Presence of coronary angioplasty implant and graft
CPT/HCPCS: 36416; 70450; 71045; 74176; 80048; 80053; 81001; 82962; 83690; 84484; 85025; 93005; 96361; 96374; 96375; 96376; 99284; J2405; J3010

== ENCOUNTER 2021-09-25 05:26 | Emergency (ER) | payer OTHER, MEDICAID, SELFPAY ==
--- NOTE | 2021-09-25 05:29 | ECG_ITS ---
[facility] Test Date: 2021-09-25 Pat Name: Alonso June Department: Room: Gender: Male Batch Operator: : 1975 Requested By: Jb Jaime Order Number: [id number] Janel MD: Richie Macias M.D. Measurements Intervals [place] Rate: 92 P: 70 NV: 138 QRS: 69 QRSD: 89 T: 44 QT: 321 QTc: 399 Interpretive Statements SINUS RHYTHM WITH SINUS ARRHYTHMIA MINIMAL VOLTAGE CRITERIA FOR LVH, CONSIDER NORMAL VARIANT [MEETS CRITERIA IN ONE OF: R(aVL), S(V1), R(V5), R(V5/V6)+S(V1)] Compared to ECG 09/20/2021 19:53:54 No significant changes Electronically Signed On 09-25-2021 16:11:27 CDT by Richie Macias M.D. [id number]
--- NOTE | 2021-09-25 05:29 | XRR_ITS ---
PROCEDURE INFORMATION: Exam: XR Chest Exam date and time: 09/25/2021 5:31 AM Age: 46 years old Clinical indication: Angina and dyspnea; Prior surgery; Surgery date: 1-6 months; Surgery type: Stents; Patient HX: SOB chest pressure x 10 mins; Additional info: Cp TECHNIQUE: Imaging protocol: XR of the chest. Views: 1 view. COMPARISON: CR (CHEST, ) 09/20/2021 4:08 PM FINDINGS: Lungs: Unremarkable. No consolidation. Pleural spaces: Unremarkable. No pleural effusion. No pneumothorax. Heart/Mediastinum: Unremarkable. No cardiomegaly. Bones/joints: Unremarkable. XR/XR chest 1V portable [id number] IMPRESSION: No acute findings.
[2021-09-25 05:30] VITALS: BP 180/96; PULSE 102; RESP 22; TEMP 36.5; O2SAT 97; BMI 23.0
--- NOTE | 2021-09-25 05:35 | ED_ITS ---
Documented by User: Jb Jaime MD 09/25/21 05:38 HPI - Chest Pain General: Chief Complaint: Chest Pain Stated Complaint: Chest Pains Time Seen by Provider: 09/25/21 05:28 Source: patient Mode of arrival: ambulatory Limitations: no limitations History of Present Illness: 46-year-old male who has been seen here multiple times over the last month for chest pain states he started having sudden onset of sharp pain in the center of his chest 10 minutes ago. He received a cardiac cath last month as well that was negative. He states the pain is sharp in nature rates it a 8 out of 10 denies any worsening improving factors he denies any shortness of breath denies any vomiting or diarrhea. Associated symptoms: Deny abdominal pain, dyspnea, fever(s), nausea or vomiting Review of Systems Const: Denies: fever(s), chills, body aches or change in appetite Eyes: Denies: blurry vision or eye discomfort ENMT: Denies: throat pain or dental pain Card: Reports: chest pain Resp: Denies: dyspnea GI: Denies: abdominal pain, nausea, vomiting or diarrhea : Denies: dysuria Musc: Denies: neck pain or back pain Skin/Breast: Denies: rash Neuro: Denies: headache(s) Psych: Denies: depression Melquiades/Lymph: Denies: easy bruising All/Imm: Denies: urticaria PFSH ED PFSH: Medical History Atherosclerotic heart disease of [place] coronary artery with unstable angina pectoris Benign essential HTN CAD (coronary artery disease) 9stents Chest pain CVA (cerebrovascular accident) Diabetes Dyslipidemia (high LDL; low HDL) Former smoker HTN (hypertension) Surgical History History of appendectomy Family History Other No pertinent family history Social History Smoking and tobacco status: former smoker Alcohol intake: never Housing: House Physical Exam Const: COMMON NORMALS: no acute distress, patient oriented x3 and healthy appearing HENMT: COMMON NORMALS: normocephalic and atraumatic HEAD & SCALP: normocephalic and atraumatic Eye: COMMON NORMALS: Equal, round and reactive pupils present and EOMs intact bilaterally PUPIL: Yes Equal, round and reactive pupils present Neck/C-Spine: COMMON NORMALS: full ROM and supple Chest: COMMONS NORMALS: normal inspection of the chest and normal palpation of entire chest wall Resp: COMMON NORMALS: normal respiratory effort, No retractions, No use of accessory muscles and clear to auscultation bilaterally AUSCULTATION: clear to auscultation bilaterally Cardio: COMMON NORMALS: regular rate, regular rhythm and No murmurs present (Cardio) RATE: regular rate RHYTHM: regular rhythm GI: COMMON NORMALS: Normal to inspection, nondistended, normoactive bowel sounds present, Soft to palpation, non-tender and no masses PALPATION: Yes Soft to palpation Extremity: COMMON NORMALS: normal to inspection and full ROM Neuro: COMMON NORMALS: patient oriented x3, moves all extremities and no focal motor deficits Psych: COMMON NORMALS: mental status grossly normal, Normal thought process present and cooperative THOUGHT PROCESS: Normal thought process present Skin: COMMON NORMALS: no rashes or lesions noted and no wounds GENERAL SKIN EXAM: no rashes or lesions noted Course Vital Signs: Vital signs: Vital Signs Temperature 97.7 F 09/25/21 05:30 Pulse Rate 84 09/25/21 07:15 Respiratory Rate 14 09/25/21 07:15 Blood Pressure 104/63 09/25/21 07:15 Pulse Oximetry 97 09/25/21 07:15 MDM - Chest Pain Lab Data : 09/25/21 05:47 09/25/21 06:43 Radiology Impressions Chest X-Ray 09/25/21 05:29 IMPRESSION: No acute findings. Laboratory Results WBC 7.3 10^3/uL (4.0-10.0) 09/25/21 05:47 Corrected WBC Cancelled 09/25/21 05:32 RBC 4.53 10^6/uL (4.1-5.3) 09/25/21 05:47 Hgb 11.2 g/dL (11.7-16.6) L 09/25/21 05:47 Hct 35.0 % (42.0-52.0) L 09/25/21 05:47 MCV 77.3 fl (80-94) L 09/25/21 05:47 MCH 24.7 pg (28.0-34.0) L 09/25/21 05:47 MCHC 32.0 g/dL (30.0-36.0) 09/25/21 05:47 RDW 15.2 % (12.1-15.1) H 09/25/21 05:47 Plt Count 296 10^3/cmm (130-400) 09/25/21 05:47 MPV 11.7 fL (7.4-10.4) H 09/25/21 05:47 Gran % Cancelled 09/25/21 05:32 Neut % (Auto) 60.1 % 09/25/21 05:47 Lymph % (Auto) 17.1 % 09/25/21 05:47 [place] % (Auto) 18.1 % 09/25/21 05:47 Eos % (Auto) 3.4 % 09/25/21 05:47 Baso % (Auto) 1.0 % 09/25/21 05:47 Neut # (Auto) 4.38 10^3/uL (1.8-7.7) 09/25/21 05:47 Lymph # (Auto) 1.3 10^3/uL (0.8-4.8) 09/25/21 05:47 [place] # (Auto) 1.3 10^3/uL (0.2-0.9) H 09/25/21 05:47 Eos # (Auto) 0.3 10^3/uL (0.0-0.8) 09/25/21 05:47 Baso # (Auto) 0.1 10^3/uL (0.0-0.1) 09/25/21 05:47 Absolute Gran (auto) Cancelled 09/25/21 05:32 Nucleated RBC % (auto) 0 % 09/25/21 05:47 Nucleated RBCs # 0.0 /100WBC 09/25/21 05:47 Sodium 135 mmol/L (136-145) L 09/25/21 06:43 Potassium 4.0 mmol/L (3.5-5.1) 09/25/21 06:43 Chloride 100 mmol/L (98-107) 09/25/21 06:43 Carbon Dioxide 23 mmol/L (22-29) 09/25/21 06:43 Anion Gap 16.0 (5-19) 09/25/21 06:43 BUN 16 mg/dL (6-20) 09/25/21 06:43 Creatinine 1.0 mg/dL (0.7-1.2) 09/25/21 06:43 GFR Calculation 81.2 mL/min (90-130) L 09/25/21 06:43 Glucose 92 mg/dL (65-115) 09/25/21 06:43 Calculated Osmolality 281 mOsm/kg (285-295) L 09/25/21 06:43 Calcium 9.1 mg/dL (8.5-10.5) 09/25/21 06:43 Total Bilirubin 0.3 mg/dL (0.15-1.2) 09/25/21 06:43 AST 13 U/L (0-40) 09/25/21 06:43 ALT 12 U/L (0-41) 09/25/21 06:43 Alkaline Phosphatase 88 IU/L (40-130) 09/25/21 06:43 Troponin T Baseline 18 ng/L (0-15) H 09/25/21 06:43 Troponin T 120 Minute 17.47 ng/L (0-15) H 09/25/21 08:38 Delta Troponin T -0.53 ABS# (0-10) L 09/25/21 08:38 Total Protein 7.0 g/dL (6.6-8.7) 09/25/21 06:43 Albumin 4.4 g/dL (3.5-5.2) 09/25/21 06:43 Globulin 2.6 g/dL (1.3-4.6) 09/25/21 06:43 EKG Data EKG 1: I personally reviewed and interpreted this EKG as follows: EKG interpretation date: 09/25/21 EKG interpretation time: 05:31 Interpretation: nsr hr [address] or t wave abnormalities Discharge Plan Discharge Patient Disposition: Home Clinical Impression: Chest pain Qualifiers: Chest pain type: unspecified Qualified Code(s): R07.9 - Chest pain, unspecified Condition: Stable Prescriptions: New Protonix 40 mg tablet,delayed release (DR/EC) 40 mg PO DAILY 56 Days 0RF No Action quetiapine 25 mg tablet See Rx Instructions .ROUTE .COMPLEX 0RF Rx Instructions: 25MG PO AT 09:00 AND 15:00 AND 50MG PO AT BEDTIME atorvastatin 40 mg tablet 40 mg PO BEDTIME 0RF metoprolol tartrate 100 mg tablet 50 mg PO BID 0RF levetiracetam 500 mg tablet 500 mg PO BID 0RF ondansetron HCl 4 mg tablet 4 mg PO Q8H PRN (Reason: Nausea And Vomiting) 0RF clopidogrel 75 mg tablet 75 mg PO QAM 0RF amlodipine 5 mg tablet 5 mg PO QAM 0RF aspirin 81 mg Tablet,Delayed Release (Dr/Ec) 81 mg PO QAM 0RF adowdrbhdz-dqjqxybjjtwbn-duyq 50-325-40 mg tablet 2 tab PO BID PRN (Reason: Migraine Headache) 0RF nitroglycerin [Nitrostat] 0.4 mg Tablet, Sublingual 0.4 mg SUBLINGUAL Q5M PRN (Reason: Chest Pain) 0RF Rx Instructions: do not exceed 3 doses per episode lisinopril-hydrochlorothiazide 10-12.5 mg tablet 1 tab PO DAILY PRN (Reason: Blood Pressure) 0RF albuterol sulfate [ProAir HFA] 90 mcg/actuation HFA aerosol inhaler 2 puff INHALATION Q4H PRN (Reason: Shortness Of Breath) 0RF ranolazine 500 mg tablet extended release 12 hr 500 mg PO BID 0RF insulin aspart U-100 [Novolog Flexpen U-100 Insulin] 100 unit/mL (3 mL) insulin pen See Rx Instructions .ROUTE .COMPLEX Qty: 15 0RF Rx Instructions: Inject, 3 times daily, after meals, based on sliding scale provided Lantus Solostar U-100 Insulin 100 unit/mL (3 mL) Insulin Pen 5 unit SUBCUT DAILY Qty: 15 0RF Lantus Solostar U-100 Insulin 100 unit/mL (3 mL) insulin pen 5 unit SUBCUT DAILY Qty: 15 0RF Novolog Flexpen U-100 Insulin 100 unit/mL (3 mL) insulin pen 1 unit SUBCUT TID Qty: 3 0RF Rx Instructions: Inject 3 times daily after meals based on sliding scale. isosorbide mononitrate 60 mg tablet extended release 24 hr 60 mg PO BID Qty: 60 0RF Discharge Orders: Discharge ED (Routine); Ordered 09/25/21 Ordered By: Kam Martinez Discharge Diet: Advance as tolerated Discharge Activity: Resume usual activity Patient Instructions: Chest Pain (ED) Sign Out Sign Out Data: Patient Sign Out occurred on 09/25/21 at 06:17. Patient's care was discussed, and care was transferred from to Kam Martinez DO. Coding Level of Care Code ED Computer Teacher for Chg Fwd Exam Comprehensive Documented by User: Kam Martinez DO 09/25/21 09:48 HPI - Chest Pain General: Chief Complaint: Chest Pain Stated Complaint: Chest Pains Time Seen by Provider: 09/25/21 05:28 PFSH ED PFSH: Medical History Atherosclerotic heart disease of [place] coronary artery with unstable angina pectoris Benign essential HTN CAD (coronary artery disease) 9stents Chest pain CVA (cerebrovascular accident) Diabetes Dyslipidemia (high LDL; low HDL) Former smoker HTN (hypertension) Surgical History History of appendectomy Family History Other No pertinent family history Social History Smoking and tobacco status: former smoker Alcohol intake: never Housing: House Course Vital Signs: Vital signs: Vital Signs Temperature 97.7 F 09/25/21 05:30 Pulse Rate 84 09/25/21 07:15 Respiratory Rate 14 09/25/21 07:15 Blood Pressure 104/63 09/25/21 07:15 Pulse Oximetry 97 09/25/21 07:15 MDM - Chest Pain Medical Decision Making Care assumed a change of shift. Cardiac enzymes are negative discharge patient home he recently had a coronary angiogram which was unremarkable we will start him on Protonix 40 daily follow-up with his primary care doctor. Medical Records I reviewed the patient's medical records. Lab Data I reviewed the patient's lab results. : 09/25/21 05:47 09/25/21 06:43 Radiology Impressions Chest X-Ray 09/25/21 05:29 IMPRESSION: No acute findings. Laboratory Results WBC 7.3 10^3/uL (4.0-10.0) 09/25/21 05:47 Corrected WBC Cancelled 09/25/21 05:32 RBC 4.53 10^6/uL (4.1-5.3) 09/25/21 05:47 Hgb 11.2 g/dL (11.7-16.6) L 09/25/21 05:47 Hct 35.0 % (42.0-52.0) L 09/25/21 05:47 MCV 77.3 fl (80-94) L 09/25/21 05:47 MCH 24.7 pg (28.0-34.0) L 09/25/21 05:47 MCHC 32.0 g/dL (30.0-36.0) 09/25/21 05:47 RDW 15.2 % (12.1-15.1) H 09/25/21 05:47 Plt Count 296 10^3/cmm (130-400) 09/25/21 05:47 MPV 11.7 fL (7.4-10.4) H 09/25/21 05:47 Gran % Cancelled 09/25/21 05:32 Neut % (Auto) 60.1 % 09/25/21 05:47 Lymph % (Auto) 17.1 % 09/25/21 05:47 [place] % (Auto) 18.1 % 09/25/21 05:47 Eos % (Auto) 3.4 % 09/25/21 05:47 Baso % (Auto) 1.0 % 09/25/21 05:47 Neut # (Auto) 4.38 10^3/uL (1.8-7.7) 09/25/21 05:47 Lymph # (Auto) 1.3 10^3/uL (0.8-4.8) 09/25/21 05:47 [place] # (Auto) 1.3 10^3/uL (0.2-0.9) H 09/25/21 05:47 Eos # (Auto) 0.3 10^3/uL (0.0-0.8) 09/25/21 05:47 Baso # (Auto) 0.1 10^3/uL (0.0-0.1) 09/25/21 05:47 Absolute Gran (auto) Cancelled 09/25/21 05:32 Nucleated RBC % (auto) 0 % 09/25/21 05:47 Nucleated RBCs # 0.0 /100WBC 09/25/21 05:47 Sodium 135 mmol/L (136-145) L 09/25/21 06:43 Potassium 4.0 mmol/L (3.5-5.1) 09/25/21 06:43 Chloride 100 mmol/L (98-107) 09/25/21 06:43 Carbon Dioxide 23 mmol/L (22-29) 09/25/21 06:43 Anion Gap 16.0 (5-19) 09/25/21 06:43 BUN 16 mg/dL (6-20) 09/25/21 06:43 Creatinine 1.0 mg/dL (0.7-1.2) 09/25/21 06:43 GFR Calculation 81.2 mL/min (90-130) L 09/25/21 06:43 Glucose 92 mg/dL (65-115) 09/25/21 06:43 Calculated Osmolality 281 mOsm/kg (285-295) L 09/25/21 06:43 Calcium 9.1 mg/dL (8.5-10.5) 09/25/21 06:43 Total Bilirubin 0.3 mg/dL (0.15-1.2) 09/25/21 06:43 AST 13 U/L (0-40) 09/25/21 06:43 ALT 12 U/L (0-41) 09/25/21 06:43 Alkaline Phosphatase 88 IU/L (40-130) 09/25/21 06:43 Troponin T Baseline 18 ng/L (0-15) H 09/25/21 06:43 Troponin T 120 Minute 17.47 ng/L (0-15) H 09/25/21 08:38 Delta Troponin T -0.53 ABS# (0-10) L 09/25/21 08:38 Total Protein 7.0 g/dL (6.6-8.7) 09/25/21 06:43 Albumin 4.4 g/dL (3.5-5.2) 09/25/21 06:43 Globulin 2.6 g/dL (1.3-4.6) 09/25/21 06:43 Discharge Plan Discharge Patient Disposition: Home Clinical Impression: Chest pain Qualifiers: Chest pain type: unspecified Qualified Code(s): R07.9 - Chest pain, unspecified Condition: Stable Prescriptions: New Protonix 40 mg tablet,delayed release (DR/EC) 40 mg PO DAILY 56 Days 0RF No Action quetiapine 25 mg tablet See Rx Instructions .ROUTE .COMPLEX 0RF Rx Instructions: 25MG PO AT 09:00 AND 15:00 AND 50MG PO AT BEDTIME atorvastatin 40 mg tablet 40 mg PO BEDTIME 0RF metoprolol tartrate 100 mg tablet 50 mg PO BID 0RF levetiracetam 500 mg tablet 500 mg PO BID 0RF ondansetron HCl 4 mg tablet 4 mg PO Q8H PRN (Reason: Nausea And Vomiting) 0RF clopidogrel 75 mg tablet 75 mg PO QAM 0RF amlodipine 5 mg tablet 5 mg PO QAM 0RF aspirin 81 mg Tablet,Delayed Release (Dr/Ec) 81 mg PO QAM 0RF rnxbxenhiu-ppmbyroebwojv-vvaq 50-325-40 mg tablet 2 tab PO BID PRN (Reason: Migraine Headache) 0RF nitroglycerin [Nitrostat] 0.4 mg Tablet, Sublingual 0.4 mg SUBLINGUAL Q5M PRN (Reason: Chest Pain) 0RF Rx Instructions: do not exceed 3 doses per episode lisinopril-hydrochlorothiazide 10-12.5 mg tablet 1 tab PO DAILY PRN (Reason: Blood Pressure) 0RF albuterol sulfate [ProAir HFA] 90 mcg/actuation HFA aerosol inhaler 2 puff INHALATION Q4H PRN (Reason: Shortness Of Breath) 0RF ranolazine 500 mg tablet extended release 12 hr 500 mg PO BID 0RF insulin aspart U-100 [Novolog Flexpen U-100 Insulin] 100 unit/mL (3 mL) insulin pen See Rx Instructions .ROUTE .COMPLEX Qty: 15 0RF Rx Instructions: Inject, 3 times daily, after meals, based on sliding scale provided Lantus Solostar U-100 Insulin 100 unit/mL (3 mL) Insulin Pen 5 unit SUBCUT DAILY Qty: 15 0RF Lantus Solostar U-100 Insulin 100 unit/mL (3 mL) insulin pen 5 unit SUBCUT DAILY Qty: 15 0RF Novolog Flexpen U-100 Insulin 100 unit/mL (3 mL) insulin pen 1 unit SUBCUT TID Qty: 3 0RF Rx Instructions: Inject 3 times daily after meals based on sliding scale. isosorbide mononitrate 60 mg tablet extended release 24 hr 60 mg PO BID Qty: 60 0RF Discharge Orders: Discharge ED (Routine); Ordered 09/25/21 Ordered By: Kam Martinez Discharge Diet: Advance as tolerated Discharge Activity: Resume usual activity Patient Instructions: Chest Pain (ED) Sign Out Sign Out Data: Patient Sign Out occurred on 09/25/21 at 06:17. Patient's care was discussed, and care was transferred from to Kam Martinez DO. Coding Level of Care Code ED Computer Teacher for Marcelino Fwmacy Exam Comprehensive
[2021-09-25 05:57] LABS: Basophils # 0.1 10^3/uL (0.0-0.1); Eosinophils # 0.3 10^3/uL (0.0-0.8); Eosinophils % 3.4 %; Hemoglobin 11.2 g/dL (11.7-16.6); Lymphocytes # 1.3 10^3/uL (0.8-4.8); Lymphocytes % 17.1 %; Mean Corpuscular Hemoglobin 24.7 pg (28.0-34.0); Mean Corpuscular Volume 77.3 fl (80-94); Mean Platelet Volume 11.7 fL (7.4-10.4); Monocytes # 1.3 10^3/uL (0.2-0.9); Monocytes % 18.1 %; Neutrophils # 4.38 10^3/uL (1.8-7.7); Neutrophils % 60.1 %; Nucleated Red Blood Cells % 0 %; Platelet Count 296 10^3/cmm (130-400); Red Blood Count 4.53 10^6/uL (4.1-5.3); Red Cell Distribution Width 15.2 % (12.1-15.1); White Blood Count 7.3 10^3/uL (4.0-10.0)
[2021-09-25 06:06] VITALS: BP 151/88; PULSE 77; RESP 18; O2SAT 98
[2021-09-25] MEDS: aspirin 81 mg Chew Tablet 324 MG PO (06:17)
[2021-09-25] MEDS: LORazepam 2 mg/mL INJ 1 mL 1 MG IVP (06:18)
[2021-09-25 06:25] VITALS: BP 151/88; O2SAT 97
[2021-09-25 07:10] LABS: Alanine Aminotransferase 12 U/L (0-41); Albumin Level 4.4 g/dL (3.5-5.2); Alkaline Phosphatase 88 IU/L (40-130); Aspartate Amino Transferase 13 U/L (0-40); Blood Urea Nitrogen 16 mg/dL (6-20); Calcium 9.1 mg/dL (8.5-10.5); Carbon Dioxide 23 mmol/L (22-29); Chloride 100 mmol/L (98-107); Globulin 2.6 g/dL (1.3-4.6); Glomerular Filtration Rate 81.2 mL/min (90-130); Glucose 92 mg/dL (65-115); Osmolality Calculated 281 mOsm/kg (285-295); Sodium 135 mmol/L (136-145); Total Bilirubin 0.3 mg/dL (0.15-1.2)
[2021-09-25 07:11] LABS: Troponin(5th) Baseline 18 ng/L (0-15)
[2021-09-25 07:15] VITALS: BP 104/63; PULSE 84; RESP 14; O2SAT 97
--- NOTE | 2021-09-25 07:16 | PC.NURSE ---
Report received from MACARIO Hernandez. Pt resting in bed with eyes closed, respirations even and unlabored. Care assumed.
--- NOTE | 2021-09-25 07:34 | ECG_ITS ---
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 Measurements Intervals [place] Rate: 80 P: 72 WA: 153 QRS: 74 QRSD: 85 T: 73 QT: 355 QTc: 410 Interpretive Statements SINUS RHYTHM MINIMAL VOLTAGE CRITERIA FOR LVH, CONSIDER NORMAL VARIANT [MEETS CRITERIA IN ONE OF: R(aVL), S(V1), R(V5), R(V5/V6)+S(V1)] Compared to ECG 09/25/2021 05:31:54 Sinus arrhythmia no longer present Electronically Signed On 09-25-2021 16:16:01 CDT by Richie Macias M.D. [email or web address]
[2021-09-25 09:11] LABS: Troponin 5 2HR 17.47 ng/L (0-15)
[2021-09-25 09:14] LABS: Troponin 5 2HR Delta -0.53 ABS# (0-10)
[2021-09-25 10:18] VITALS: BP 140/74; PULSE 98; RESP 13; O2SAT 97
== END 2021-09-25 10:20 | disposition home or self-care (01) ==
PROVIDERS: Emergency Medicine; Emergency Provider Family Medicine
DX: R07.9 Chest pain, unspecified (principal); I25.110 Atherosclerotic heart disease of native coronary artery with unstable angina pectoris; I10 Essential (primary) hypertension; E11.9 Type 2 diabetes mellitus without complications; E78.5 Hyperlipidemia, unspecified; Z79.82 Long term (current) use of aspirin; Z79.4 Long term (current) use of insulin; Z86.73 Personal history of transient ischemic attack (TIA), and cerebral infarction without residual deficits; Z87.891 Personal history of nicotine dependence
CPT/HCPCS: 36415; 71045; 80053; 84484; 85025; 93005; 96374; 99284; J2060

== ENCOUNTER 2021-09-27 16:59 | Emergency (ER) | payer OTHER, MEDICAID, SELFPAY ==
--- NOTE | 2021-09-27 17:01 | XRR_ITS ---
PROCEDURE INFORMATION: Exam: XR Chest Exam date and time: 09/27/2021 5:12 PM Age: 46 years old Clinical indication: Pain; Chest pressure; Prior surgery; Additional info: Chest pain TECHNIQUE: Imaging protocol: XR of the chest. Views: 1 view. COMPARISON: CR XR chest 1V portable [id number] 09/25/2021 5:31 AM FINDINGS: Lungs: Shallow inspiration with parenchymal crowding and atelectasis in the lung bases. No consolidation. Pleural spaces: Unremarkable. No pleural effusion. No pneumothorax. Heart/Mediastinum: Unremarkable. No cardiomegaly. Bones/joints: Unremarkable. XR/XR chest 1V portable [id number] IMPRESSION: No acute finding.
--- NOTE | 2021-09-27 17:01 | ED_ITS ---
Documented by User: Kam Martinez DO 09/29/21 06:38 HPI - Chest Pain General: Chief Complaint: Chest Pain Stated Complaint: CHEST PAIN Time Seen by Provider: 09/27/21 17:01 Source: patient Mode of arrival: ambulatory Limitations: no limitations History of Present Illness: 46-year-old male presents emergency room with complaint of chest pain. He has a known history of coronary disease he was walking and began having severe left-sided chest pain radiating to his arm. He is complaining of shortness of breath on arrival his oxygen sats are normal. He has not been having any episodes recently of chest pain. He states he does not have any sublingual nitroglycerin anymore.Patient had a heart catheterization September 032021 which was normal. He had normal left main LAD right and circumflex arteries. There is a stent in the left main artery, the left anterior descending the diagonal and the PDA all of which were evaluated as patent. MD complaint: chest pain Pertinent past history: coronary artery disease Onset (ago): minute(s) Timing of current episode: episodic Onset: during exertion Pain location: left chest Pain radiation: left arm Severity: severe Quality: aching and heaviness Relieving factors: nothing Exacerbating factors: nothing Associated symptoms: Deny abdominal pain, diaphoresis, dyspnea, fever(s), leg edema, nausea, palpitations, sense of impending doom, syncope or vomiting Treatment prior to arrival: none Review of Systems Const: Denies: fever(s) or diaphoresis ENMT: Denies: throat pain, ear or mastoid pain, nasal discharge or nasal congestion Card: Reports: chest pain; Denies: palpitations or syncope Resp: Denies: dyspnea GI: Denies: abdominal pain, nausea or vomiting : Denies: flank pain, dysuria, urinary frequency or urinary urgency Skin/Breast: Denies: rash or pruritus PFSH ED PFSH: Medical History Atherosclerotic heart disease of [place] coronary artery with unstable angina pectoris Benign essential HTN CAD (coronary artery disease) 9stents Chest pain CVA (cerebrovascular accident) Diabetes Dyslipidemia (high LDL; low HDL) Former smoker HTN (hypertension) Surgical History History of appendectomy Family History Other No pertinent family history Social History Smoking and tobacco status: former smoker Alcohol intake: never Housing: House Physical Exam Const: GENERAL APPEARANCE: cooperative and comfortable O RIENTATION/CONSCIOUSNESS: Yes awake, Yes oriented to person, Yes oriented to place and Yes oriented to time HENMT: COMMON NORMALS: normocephalic, atraumatic and hearing grossly normal bilaterally HEAD & SCALP: normocephalic and atraumatic Neck/C-Spine: COMMON NORMALS: no JVD Resp: COMMON NORMALS: normal respiratory effort, No retractions, No use of accessory muscles and clear to auscultation bilaterally AUSCULTATION: clear to auscultation bilaterally Cardio: COMMON NORMALS: no JVD, regular rate, regular rhythm and No murmurs present (Cardio) RATE: regular rate RHYTHM: regular rhythm GI: COMMON NORMALS: Soft to palpation and No hepatosplenomegaly present AUSCULTATION: Yes normoactive bowel sounds PALPATION: Yes Soft to palpation, No Tenderness to palpation present (GI), No Guarding due to palpation present (GI) and Yes No hepatosplenomegaly present Extremity: COMMON NORMALS: normal to inspection, capillary refill normal, no clubbing, cyanosis or edema, no calf tenderness and no pedal edema Neuro: SENSORIUM/ORIENTATION: Yes oriented to person, Yes oriented to place and Yes oriented to time Skin: COMMON NORMALS: no rashes or lesions noted GENERAL SKIN EXAM: no rashes or lesions noted Course Vital Signs: Vital signs: Vital Signs Pulse Rate 88 09/27/21 18:54 Respiratory Rate 16 09/27/21 18:54 Blood Pressure 136/69 09/27/21 18:54 Pulse Oximetry 99 09/27/21 18:09 MDM - Chest Pain Medical Decision Making Patient presents with complaint of chest pain. EKG shows no acute changes. He has hadmultiple work-ups chest pain just 3 weeks ago had a coronary angiogram he said to CTAs. Labs are pending. Care signed out to Dr. Jaime at change of shift. See final notes for diagnosis and disposition. Patient presents here with chest pain atypical in nature is got chronic chest pain he has been seen here multiple times had a normal cardiac cath 3 weeks ago his troponin here is at his baseline he is pain-free he stable for discharge is to follow-up with PCP and return if worsening. Medical Records I reviewed the patient's medical records. Lab Data I reviewed the patient's lab results. : 09/27/21 17:30 09/27/21 17:30 Radiology Impressions Chest X-Ray 09/27/21 17:01 IMPRESSION: No acute finding. Laboratory Results WBC 11.1 10^3/uL (4.0-10.0) H 09/27/21 17:30 RBC 4.47 10^6/uL (4.1-5.3) 09/27/21 17:30 Hgb 11.0 g/dL (11.7-16.6) L 09/27/21 17:30 Hct 34.5 % (42.0-52.0) L 09/27/21 17:30 MCV 77.2 fl (80-94) L 09/27/21 17:30 MCH 24.6 pg (28.0-34.0) L 09/27/21 17:30 MCHC 31.9 g/dL (30.0-36.0) 09/27/21 17:30 RDW 15.1 % (12.1-15.1) 09/27/21 17: Plt Count 304 10^3/cmm (130-400) 09/27/21 17:30 MPV 12.2 fL (7.4-10.4) H 09/27/21 17:30 Neut % (Auto) 86.2 % 09/27/21 17:30 Lymph % (Auto) 10.2 % 09/27/21 17:30 [place] % (Auto) 1.4 % 09/27/21 17:30 Eos % (Auto) 1.4 % 09/27/21 17:30 Baso % (Auto) 0.3 % 09/27/21 17:30 Neut # (Auto) 9.58 10^3/uL (1.8-7.7) H 09/27/21 17:30 Lymph # (Auto) 1.1 10^3/uL (0.8-4.8) 09/27/21 17:30 [place] # (Auto) 0.2 10^3/uL (0.2-0.9) 09/27/21 17:30 Eos # (Auto) 0.2 10^3/uL (0.0-0.8) 09/27/21 17:30 Baso # (Auto) 0.0 10^3/uL (0.0-0.1) 09/27/21 17:30 Nucleated RBC % (auto) 0 % 09/27/21 17: Nucleated RBCs # 0.0 /100WBC 09/27/21 17:30 D-Dimer Cancelled 09/27/21 17:30 Specimen Type Arterial 09/27/21 17:25 Sample Site Radial, right 09/27/21 17:25 ABG pH 7.44 (7.35-7.45) 09/27/21 17: ABG pCO2 33.6 mmHg (35-45) L 09/27/21 17:25 ABG pO2 80.4 mmHg (80.0-100.0) 09/27/21 17:25 ABG HCO3 22.7 mmol/L (22-26) 09/27/21 17:25 ABG O2 Saturation 97.5 09/27/21 17:25 ABG Base Excess -1.0 mmol/L (-2.0-2.0) 09/27/21 17:25 Alfredo Test Pos 09/27/21 17:25 A-a O2 Gradient 3.4 mmHg (5-10) L 09/27/21 17:25 Hematocrit 33.6 % (42-52) L 09/27/21 17:25 Hgb O2 Saturation 94.9 % (95-100) L 09/27/21 17:25 Carboxyhemoglobin 2.0 %THgb (0.4-20.1) 09/27/21 17:25 Methemoglobin 0.7 % (0.4-1.5) 09/27/21 17:25 Total Hemoglobin 11.0 g/dL (14-18) L 09/27/21 17:25 Sodium 139.0 mmol/L (131-143) 09/27/21 17:25 Potassium 3.8 mmol/L (3.5-5.0) 09/27/21 17:25 Glucose 77.0 mg/dL (70-115) 09/27/21 17:25 Ionized Calcium 1.2 mmol/L (1.1-1.4) 09/27/21 17:25 O2 Delivery Device Room air 09/27/21 17:25 FiO2 21.0 % 09/27/21 17:25 Fence Machine Operator ID Bd 09/27/21 17:25 Sodium 134 mmol/L (136-145) L 09/27/21 17:30 Potassium 4.0 mmol/L (3.5-5.1) 09/27/21 17:30 Chloride 100 mmol/L (98-107) 09/27/21 17:30 Carbon Dioxide 23 mmol/L (22-29) 09/27/21 17:30 Anion Gap 15.0 (5-19) 09/27/21 17:30 BUN 16 mg/dL (6-20) 09/27/21 17:30 Creatinine 1.1 mg/dL (0.7-1.2) 09/27/21 17:30 GFR Calculation 72.7 mL/min (90-130) L 09/27/21 17:30 Glucose 69 mg/dL (65-115) 09/27/21 17:30 Calculated Osmolality 278 mOsm/kg (285-295) L 09/27/21 17:30 Calcium 9.2 mg/dL (8.5-10.5) 09/27/21 17:30 Total Bilirubin 0.2 mg/dL (0.15-1.2) 09/27/21 17:30 AST 14 U/L (0-40) 09/27/21 17:30 ALT 9 U/L (0-41) 09/27/21 17:30 Alkaline Phosphatase 88 IU/L (40-130) 09/27/21 17:30 Troponin T Baseline 34 ng/L (0-15) H 09/27/21 17:30 Total Protein 7.2 g/dL (6.6-8.7) 09/27/21 17:30 Albumin 4.5 g/dL (3.5-5.2) 09/27/21 17:30 Globulin 2.7 g/dL (1.3-4.6) 09/27/21 17:30 Lipase 76 U/L (13-60) H 09/27/21 17:30 Discharge Plan Discharge Patient Disposition: Home Clinical Impression: Chest pain Condition: Stable Prescriptions: New ondansetron 4 mg tablet,disintegrating 4 mg PO Q6H PRN (Reason: nausea and vomiting) Qty: 14 0RF No Action quetiapine 25 mg tablet See Rx Instructions .ROUTE .COMPLEX 0RF Rx Instructions: 25MG PO AT 09:00 AND 15:00 AND 50MG PO AT BEDTIME atorvastatin 40 mg tablet 40 mg PO BEDTIME 0RF metoprolol tartrate 100 mg tablet 50 mg PO BID 0RF levetiracetam 500 mg tablet 500 mg PO BID 0RF ondansetron HCl 4 mg tablet 4 mg PO Q8H PRN (Reason: Nausea And Vomiting) 0RF clopidogrel 75 mg tablet 75 mg PO QAM 0RF amlodipine 5 mg tablet 5 mg PO QAM 0RF aspirin 81 mg Tablet,Delayed Release (Dr/Ec) 81 mg PO QAM 0RF nuzjtlffpq-zlpiwpdxaakah-adhy 50-325-40 mg tablet 2 tab PO BID PRN (Reason: Migraine Headache) 0RF nitroglycerin [Nitrostat] 0.4 mg Tablet, Sublingual 0.4 mg SUBLINGUAL Q5M PRN (Reason: Chest Pain) 0RF Rx Instructions: do not exceed 3 doses per episode lisinopril-hydrochlorothiazide 10-12.5 mg tablet 1 tab PO DAILY PRN (Reason: Blood Pressure) 0RF albuterol sulfate [ProAir HFA] 90 mcg/actuation HFA aerosol inhaler 2 puff INHALATION Q4H PRN (Reason: Shortness Of Breath) 0RF ranolazine 500 mg tablet extended release 12 hr 500 mg PO BID 0RF insulin aspart U-100 [Novolog Flexpen U-100 Insulin] 100 unit/mL (3 mL) insulin pen See Rx Instructions .ROUTE .COMPLEX Qty: 15 0RF Rx Instructions: Inject, 3 times daily, after meals, based on sliding scale provided Lantus Solostar U-100 Insulin 100 unit/mL (3 mL) Insulin Pen 5 unit SUBCUT DAILY Qty: 15 0RF Lantus Solostar U-100 Insulin 100 unit/mL (3 mL) insulin pen 5 unit SUBCUT DAILY Qty: 15 0RF Novolog Flexpen U-100 Insulin 100 unit/mL (3 mL) insulin pen 1 unit SUBCUT TID Qty: 3 0RF Rx Instructions: Inject 3 times daily after meals based on sliding scale. isosorbide mononitrate 60 mg tablet extended release 24 hr 60 mg PO BID Qty: 60 0RF Protonix 40 mg tablet,delayed release (DR/EC) 40 mg PO DAILY 56 Days 0RF Discharge Orders: Discharge ED (Routine); Ordered 09/27/21 Ordered By: Jb Jaime Discharge Diet: Advance as tolerated Discharge Activity: Resume usual activity Patient Instructions: Chest Pain (ED) Coding Level of Care Code ED Tin Stacker for Chg Fwd Exam Comprehensive Documented by User: Jb Jaime MD 09/27/21 18:56 HPI - Chest Pain General: Chief Complaint: Chest Pain Stated Complaint: CHEST PAIN Time Seen by Provider: 09/27/21 17:01 PFSH ED PFSH: Medical History Atherosclerotic heart disease of [place] coronary artery with unstable angina pectoris Benign essential HTN CAD (coronary artery disease) 9stents Chest pain CVA (cerebrovascular accident) Diabetes Dyslipidemia (high LDL; low HDL) Former smoker HTN (hypertension) Surgical History History of appendectomy Family History Other No pertinent family history Social History Smoking and tobacco status: former smoker Alcohol intake: never Housing: House Course Vital Signs: Vital signs: Vital Signs Pulse Rate 88 09/27/21 18:54 Respiratory Rate 16 09/27/21 18:54 Blood Pressure 136/69 09/27/21 18:54 Pulse Oximetry 99 09/27/21 18:09 MDM - Chest Pain Medical Decision Making Patient presents here with chest pain atypical in nature is got chronic chest pain he has been seen here multiple times had a normal cardiac cath 3 weeks ago his troponin here is at his baseline he is pain-free he stable for discharge is to follow-up with PCP and return if worsening. Lab Data : 09/27/21 17:30 09/27/21 17:30 Radiology Impressions Chest X-Ray 09/27/21 17:01 IMPRESSION: No acute finding. Laboratory Results WBC 11.1 10^3/uL (4.0-10.0) H 09/27/21 17:30 RBC 4.47 10^6/uL (4.1-5.3) 09/27/21 17:30 Hgb 11.0 g/dL (11.7-16.6) L 09/27/21 17: Hct 34.5 % (42.0-52.0) L 09/27/21 17: MCV 77.2 fl (80-94) L 09/27/21 17: MCH 24.6 pg (28.0-34.0) L 09/27/21 17: MCHC 31.9 g/dL (30.0-36.0) 09/27/21 17: RDW 15.1 % (12.1-15.1) 09/27/21 17: Plt Count 304 10^3/cmm (130-400) 09/27/21 17: MPV 12.2 fL (7.4-10.4) H 09/27/21 17:30 Neut % (Auto) 86.2 % 09/27/21 17: Lymph % (Auto) 10.2 % 09/27/21 17:30 [place] % (Auto) 1.4 % 09/27/21 17:30 Eos % (Auto) 1.4 % 09/27/21 17:30 Baso % (Auto) 0.3 % 09/27/21 17:30 Neut # (Auto) 9.58 10^3/uL (1.8-7.7) H 09/27/21 17:30 Lymph # (Auto) 1.1 10^3/uL (0.8-4.8) 09/27/21 17: [place] # (Auto) 0.2 10^3/uL (0.2-0.9) 09/27/21 17:30 Eos # (Auto) 0.2 10^3/uL (0.0-0.8) 09/27/21 17:30 Baso # (Auto) 0.0 10^3/uL (0.0-0.1) 09/27/21 17:30 Nucleated RBC % (auto) 0 % 09/27/21 17:30 Nucleated RBCs # 0.0 /100WBC 09/27/21 17:30 D-Dimer Cancelled 09/27/21 17:30 Specimen Type Arterial 09/27/21 17:25 Sample Site Radial, right 09/27/21 17:25 ABG pH 7.44 (7.35-7.45) 09/27/21 17:25 ABG pCO2 33.6 mmHg (35-45) L 09/27/21 17:25 ABG pO2 80.4 mmHg (80.0-100.0) 09/27/21 17:25 ABG HCO3 22.7 mmol/L (22-26) 09/27/21 17:25 ABG O2 Saturation 97.5 09/27/21 17:25 ABG Base Excess -1.0 mmol/L (-2.0-2.0) 09/27/21 17:25 Alfredo Test Pos 09/27/21 17:25 A-a O2 Gradient 3.4 mmHg (5-10) L 09/27/21 17:25 Hematocrit 33.6 % (42-52) L 09/27/21 17:25 Hgb O2 Saturation 94.9 % (95-100) L 09/27/21 17:25 Carboxyhemoglobin 2.0 %THgb (0.4-20.1) 09/27/21 17:25 Methemoglobin 0.7 % (0.4-1.5) 09/27/21 17:25 Total Hemoglobin 11.0 g/dL (14-18) L 09/27/21 17:25 Sodium 139.0 mmol/L (131-143) 09/27/21 17:25 Potassium 3.8 mmol/L (3.5-5.0) 09/27/21 17:25 Glucose 77.0 mg/dL (70-115) 09/27/21 17:25 Ionized Calcium 1.2 mmol/L (1.1-1.4) 09/27/21 17:25 O2 Delivery Device Room air 09/27/21 17:25 FiO2 21.0 % 09/27/21 17:25 Fence Machine Operator ID Bd 09/27/21 17:25 Sodium 134 mmol/L (136-145) L 09/27/21 17:30 Potassium 4.0 mmol/L (3.5-5.1) 09/27/21 17:30 Chloride 100 mmol/L (98-107) 09/27/21 17:30 Carbon Dioxide 23 mmol/L (22-29) 09/27/21 17:30 Anion Gap 15.0 (5-19) 09/27/21 17:30 BUN 16 mg/dL (6-20) 09/27/21 17:30 Creatinine 1.1 mg/dL (0.7-1.2) 09/27/21 17:30 GFR Calculation 72.7 mL/min (90-130) L 09/27/21 17:30 Glucose 69 mg/dL (65-115) 09/27/21 17:30 Calculated Osmolality 278 mOsm/kg (285-295) L 09/27/21 17:30 Calcium 9.2 mg/dL (8.5-10.5) 09/27/21 17:30 Total Bilirubin 0.2 mg/dL (0.15-1.2) 09/27/21 17:30 AST 14 U/L (0-40) 09/27/21 17:30 ALT 9 U/L (0-41) 09/27/21 17:30 Alkaline Phosphatase 88 IU/L (40-130) 09/27/21 17:30 Troponin T Baseline 34 ng/L (0-15) H 09/27/21 17:30 Total Protein 7.2 g/dL (6.6-8.7) 09/27/21 17:30 Albumin 4.5 g/dL (3.5-5.2) 09/27/21 17:30 Globulin 2.7 g/dL (1.3-4.6) 09/27/21 17:30 Lipase 76 U/L (13-60) H 09/27/21 17:30 Discharge Plan Discharge Patient Disposition: Home Clinical Impression: Chest pain Condition: Stable Prescriptions: New ondansetron 4 mg tablet,disintegrating 4 mg PO Q6H PRN (Reason: nausea and vomiting) Qty: 14 0RF No Action quetiapine 25 mg tablet See Rx Instructions .ROUTE .COMPLEX 0RF Rx Instructions: 25MG PO AT 09:00 AND 15:00 AND 50MG PO AT BEDTIME atorvastatin 40 mg tablet 40 mg PO BEDTIME 0RF metoprolol tartrate 100 mg tablet 50 mg PO BID 0RF levetiracetam 500 mg tablet 500 mg PO BID 0RF ondansetron HCl 4 mg tablet 4 mg PO Q8H PRN (Reason: Nausea And Vomiting) 0RF clopidogrel 75 mg tablet 75 mg PO QAM 0RF amlodipine 5 mg tablet 5 mg PO QAM 0RF aspirin 81 mg Tablet,Delayed Release (Dr/Ec) 81 mg PO QAM 0RF qltuukcgkq-jbnfraxtvwvge-nibz 50-325-40 mg tablet 2 tab PO BID PRN (Reason: Migraine Headache) 0RF nitroglycerin [Nitrostat] 0.4 mg Tablet, Sublingual 0.4 mg SUBLINGUAL Q5M PRN (Reason: Chest Pain) 0RF Rx Instructions: do not exceed 3 doses per episode lisinopril-hydrochlorothiazide 10-12.5 mg tablet 1 tab PO DAILY PRN (Reason: Blood Pressure) 0RF albuterol sulfate [ProAir HFA] 90 mcg/actuation HFA aerosol inhaler 2 puff INHALATION Q4H PRN (Reason: Shortness Of Breath) 0RF ranolazine 500 mg tablet extended release 12 hr 500 mg PO BID 0RF insulin aspart U-100 [Novolog Flexpen U-100 Insulin] 100 unit/mL (3 mL) insulin pen See Rx Instructions .ROUTE .COMPLEX Qty: 15 0RF Rx Instructions: Inject, 3 times daily, after meals, based on sliding scale provided Lantus Solostar U-100 Insulin 100 unit/mL (3 mL) Insulin Pen 5 unit SUBCUT DAILY Qty: 15 0RF Lantus Solostar U-100 Insulin 100 unit/mL (3 mL) insulin pen 5 unit SUBCUT DAILY Qty: 15 0RF Novolog Flexpen U-100 Insulin 100 unit/mL (3 mL) insulin pen 1 unit SUBCUT TID Qty: 3 0RF Rx Instructions: Inject 3 times daily after meals based on sliding scale. isosorbide mononitrate 60 mg tablet extended release 24 hr 60 mg PO BID Qty: 60 0RF Protonix 40 mg tablet,delayed release (DR/EC) 40 mg PO DAILY 56 Days 0RF Discharge Orders: Discharge ED (Routine); Ordered 09/27/21 Ordered By: Korby Yeni Discharge Diet: Advance as tolerated Discharge Activity: Resume usual activity Patient Instructions: Chest Pain (ED) Coding Level of Care Code ED Tin Stacker for Rajivg Fwd Exam Comprehensive
--- NOTE | 2021-09-27 17:02 | ECG_ITS ---
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 Measurements Intervals [place] Rate: 103 P: 74 [place]: 145 QRS: 83 QRSD: 83 T: 45 QT: 306 QTc: 402 Interpretive Statements SINUS TACHYCARDIA MODERATE VOLTAGE CRITERIA FOR LVH, CONSIDER NORMAL VARIANT [MEETS CRITERIA IN ONE OF: R(aVL), S(V1), R(V5), R(V5/V6)+S(V1)] ABNORMAL RHYTHM ECG Compared to ECG 09/25/2021 08:41:33 Sinus rhythm no longer present Electronically Signed On 09-27-2021 19:07:12 CDT by Anatoliy Jean Baptiste M.D. [email or web address]/store/[id number]
[2021-09-27 17:14] VITALS: BMI 23.3
[2021-09-27 17:23] VITALS: BP 198/109; PULSE 90; RESP 33; O2SAT 100
[2021-09-27 17:37] LABS: ABG PCO2 33.6 mmHg (35-45); ABG PH Result 7.44 (7.35-7.45); Alveolar-Arterial Oxygen Gradi 3.4 mmHg (5-10); Arterial Blood Gas Hematocrit 33.6 % (42-52); Blood Gas Allen Test Pos; Blood Gas Operator Identificat BD; Blood Gas Sample Site Radial, right; Blood Gas Sample Type Arterial; HCO3 ABG 22.7 mmol/L (22-26); HGB O2 Sat 94.9 % (95-100); Ionized Calcium Level - ABG 1.2 mmol/L (1.1-1.4); Methemoglobin 0.7 % (0.4-1.5); Oxygen Device ROOM AIR; Oxygen Saturation ABG 97.5; PO2 ABG 80.4 mmHg (80.0-100.0); Potassium Level - ABG 3.8 mmol/L (3.5-5.0)
[2021-09-27 17:40] VITALS: RESP 18
[2021-09-27] MEDS: morphine 4 mg/mL SDV 1 mL IVP (17:40)
[2021-09-27 17:41] LABS: Basophils % 0.3 %; Eosinophils # 0.2 10^3/uL (0.0-0.8); Eosinophils % 1.4 %; Hematocrit 34.5 % (42.0-52.0); Lymphocytes # 1.1 10^3/uL (0.8-4.8); Lymphocytes % 10.2 %; Mean Corpuscular HGB Conc 31.9 g/dL (30.0-36.0); Mean Corpuscular Hemoglobin 24.6 pg (28.0-34.0); Mean Corpuscular Volume 77.2 fl (80-94); Mean Platelet Volume 12.2 fL (7.4-10.4); Monocytes # 0.2 10^3/uL (0.2-0.9); Monocytes % 1.4 %; Neutrophils # 9.58 10^3/uL (1.8-7.7); Neutrophils % 86.2 %; Nucleated Red Blood Cells % 0 %; Platelet Count 304 10^3/cmm (130-400); Red Blood Count 4.47 10^6/uL (4.1-5.3); Red Cell Distribution Width 15.1 % (12.1-15.1); White Blood Count 11.1 10^3/uL (4.0-10.0)
[2021-09-27] MEDS: metoprolol tartrate 1 mg/1 mL SDV 5 mL 5 MG IVP (17:41)
[2021-09-27] MEDS: aspirin 81 mg Chew Tablet 324 MG PO (17:41)
[2021-09-27] MEDS: nitroglycerin 1 gm/inch oint Pkt 1 INCH TOPICAL (17:41)
[2021-09-27 17:55] LABS: Alanine Aminotransferase 9 U/L (0-41); Albumin Level 4.5 g/dL (3.5-5.2); Alkaline Phosphatase 88 IU/L (40-130); Aspartate Amino Transferase 14 U/L (0-40); Blood Urea Nitrogen 16 mg/dL (6-20); Calcium 9.2 mg/dL (8.5-10.5); Carbon Dioxide 23 mmol/L (22-29); Chloride 100 mmol/L (98-107); Globulin 2.7 g/dL (1.3-4.6); Glomerular Filtration Rate 72.7 mL/min (90-130); Glucose 69 mg/dL (65-115); Lipase 76 U/L (13-60); Osmolality Calculated 278 mOsm/kg (285-295); Sodium 134 mmol/L (136-145); Total Bilirubin 0.2 mg/dL (0.15-1.2); Total Protein 7.2 g/dL (6.6-8.7)
[2021-09-27 18:00] LABS: Troponin(5th) Baseline 34 ng/L (0-15)
[2021-09-27 18:09] VITALS: BP 137/90; PULSE 93; RESP 16; O2SAT 99
[2021-09-27] MEDS: ondansetron 2 mg/ML SDV 2 mL 4 MG IVP (18:49)
[2021-09-27 18:54] VITALS: BP 136/69; PULSE 88; RESP 16
== END 2021-09-27 18:55 | disposition home or self-care (01) ==
PROVIDERS: Family Medicine; Emergency Provider Emergency Medicine
DX: R07.9 Chest pain, unspecified (principal); I25.10 Atherosclerotic heart disease of native coronary artery without angina pectoris; I10 Essential (primary) hypertension; E11.9 Type 2 diabetes mellitus without complications; E78.5 Hyperlipidemia, unspecified; Z79.02 Long term (current) use of antithrombotics/antiplatelets; Z79.82 Long term (current) use of aspirin; Z87.891 Personal history of nicotine dependence; Z95.5 Presence of coronary angioplasty implant and graft; Z86.73 Personal history of transient ischemic attack (TIA), and cerebral infarction without residual deficits; Z79.4 Long term (current) use of insulin
CPT/HCPCS: 36600; 71045; 80051; 80053; 82330; 82805; 83690; 84484; 85025; 93005; 96374; 96375; 99284; J2270; J2405; J3490

== ENCOUNTER 2021-09-30 16:43 | Observation (INO) | payer OTHER, SELFPAY ==
--- NOTE | 2021-09-30 16:44 | CTR_ITS ---
PROCEDURE INFORMATION: Exam: CT Head Without Contrast Exam date and time: 09/30/2021 4:50 PM Age: 46 years old Clinical indication: Altered mental status/memory loss and weakness, extremity; Left; Additional info: Symptoms of acute stroke TECHNIQUE: Imaging protocol: Computed tomography of the head without contrast. Radiation optimization: All CT scans at this facility use at least one of these dose optimization techniques: automated exposure control; mA and/or kV adjustment per patient size (includes targeted exams where dose is matched to clinical indication); or iterative reconstruction. COMPARISON: CT head wo con* [id number] 09/20/2021 4:46 PM RADIATION DOSE METRICS: Total DLP (mGy-cm): 866 FINDINGS: Brain: Normal. No hemorrhage. Unremarkable white matter. No mass effect. Cerebral ventricles: No ventriculomegaly. Paranasal sinuses: Visualized sinuses are unremarkable. No fluid levels. Mastoid air cells: Visualized mastoid air cells are well aerated. Bones/joints: Unremarkable. No acute fracture. Soft tissues: Unremarkable. CT/CT head wo con* [id number] IMPRESSION: No acute intracranial abnormality.
--- NOTE | 2021-09-30 16:44 | ECG_ITS ---
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 Measurements Intervals [place] Rate: 70 P: 48 [place]: 156 QRS: 73 QRSD: 83 T: 66 QT: 360 QTc: 390 Interpretive Statements SINUS RHYTHM MINIMAL VOLTAGE CRITERIA FOR LVH, CONSIDER NORMAL VARIANT [MEETS CRITERIA IN ONE OF: R(aVL), S(V1), R(V5), R(V5/V6)+S(V1)] Compared to ECG 09/27/2021 17:20:52 Sinus tachycardia no longer present Electronically Signed On 09-30-2021 18:30:56 CDT by Regine Bar M.D. [email or web address] [email or web address] [email or web address].[employer]/store/OM/[id number]
--- NOTE | 2021-09-30 16:44 | CTR_ITS ---
PROCEDURE INFORMATION: Exam: CT Angiography Head With Contrast, Arteriography Exam date and time: 09/30/2021 5:00 PM Age: 46 years old Clinical indication: Patient HX: Lt side weakness and chest pain; Additional info: Eval for dissiection TECHNIQUE: Imaging protocol: Computed tomography angiography of the head with contrast. Exam focused on the arteries. 3D rendering (Not supervised by radiologist): MIP and/or 3D reconstructed images were created by the technologist. Radiation optimization: All CT scans at this facility use at least one of these dose optimization techniques: automated exposure control; mA and/or kV adjustment per patient size (includes targeted exams where dose is matched to clinical indication); or iterative reconstruction. Contrast material: OMNI 350; Contrast volume: 95 ml; Contrast route: INTRAVENOUS (IV); COMPARISON: 1. CT angio headneck* [id number] 09/04/2021 6:[address] angio chest PE protcl [id number] 09/11/2021 7:57 AM RADIATION DOSE METRICS: Total DLP (mGy-cm): 2307.4 FINDINGS: ANTERIOR CIRCULATION: Right internal carotid artery: Unremarkable. Intracranial segment is patent with no significant stenosis. No aneurysm. Right middle cerebral artery: Unremarkable. No occlusion or significant stenosis. No aneurysm. Right anterior cerebral artery: Unremarkable. No occlusion or significant stenosis. No aneurysm. Left internal carotid artery: Unremarkable. Intracranial segment is patent with no significant stenosis. No aneurysm. Left middle cerebral artery: Unremarkable. No occlusion or significant stenosis. No aneurysm. Left anterior cerebral artery: Unremarkable. No occlusion or significant stenosis. No aneurysm. POSTERIOR CIRCULATION: Right vertebral artery: Unremarkable. No occlusion or significant stenosis. No aneurysm. Left vertebral artery: Unremarkable. No occlusion or significant stenosis. No aneurysm. Basilar artery: Unremarkable. No occlusion or significant stenosis. No aneurysm. Right posterior cerebral artery: Unremarkable. No occlusion or significant stenosis. No aneurysm. Left posterior cerebral artery: Unremarkable. No occlusion or significant stenosis. No aneurysm. Brain: No definite mass, mass effect, or midline shift. Cerebral ventricles: No ventriculomegaly. Bones/joints: Unremarkable. No acute fracture. Soft tissues: Unremarkable. PROCEDURE INFORMATION: Exam: CT Angiography Neck With Contrast Exam date and time: 09/30/2021 5:00 PM Age: 46 years old Clinical indication: Patient HX: Lt side weakness and chest pain; Additional info: Eval for dissiection TECHNIQUE: Imaging protocol: Computed tomography angiography of the neck with contrast. 3D rendering (Not supervised by radiologist): MIP and/or 3D reconstructed images were created by the technologist. Radiation optimization: All CT scans at this facility use at least one of these dose optimization techniques: automated exposure control; mA and/or kV adjustment per patient size (includes targeted exams where dose is matched to clinical indication); or iterative reconstruction. Contrast material: OMNI 350; Contrast volume: 95 ml; Contrast route: INTRAVENOUS (IV); COMPARISON: 1. CT angio headneck* [id number] 09/04/2021 6:[address] angio chest PE protcl [id number] 09/11/2021 7:57 AM RADIATION DOSE METRICS: Total DLP (mGy-cm): 2307.4 FINDINGS: Right common carotid artery: No stenosis. No dissection or occlusion. Right internal carotid artery: No stenosis of the extracranial segment. No dissection or occlusion. Right external carotid artery: No occlusion or stenosis of the origin. Left common carotid artery: No stenosis. No dissection or occlusion. Left internal carotid artery: No stenosis of the extracranial segment. No dissection or occlusion. Left external carotid artery: No occlusion or stenosis of the origin. Right vertebral artery: No stenosis. No dissection or occlusion. Left vertebral artery: No stenosis. No dissection or occlusion. Soft tissues: Normal. No significant soft tissue swelling. Bones/joints: No acute fracture. [facility] [id number] IMPRESSION: No large vessel stenosis, dissection, or occlusion. IMPRESSION: No stenosis, dissection, or occlusion. REFERENCES: NASCET CRITERIA. The degree of internal carotid artery stenosis is based on NASCET criteria. Normal is no stenosis. Mild is less than 50% stenosis. Moderate is 50-69% stenosis. Severe is 70% to 99% stenosis. Total occlusion is no detectable patent lumen.
--- NOTE | 2021-09-30 16:57 | ED_ITS ---
HPI - Neuro Symptoms/Deficit General: Chief Complaint: Neuro Symptoms/Deficit Stated Complaint: L SIDED WEAKNESS Time Seen by Provider: 09/30/21 16:44 Source: patient Mode of arrival: EMS History of Present Illness: 46-year-old male presents to the emergency room via EMS. He stating that 1 hour prior to arrival he was having left-sided weakness. He states he cannot move his left arm or leg. He has full facial movement no droop. There is nobody available to verify the timeframe. He has been here multiple times recently with complaints of chest pain is also complaining of chest pain now. He recently had an angiogram done approximately 3 weeks ago that was completely normal. He has no known history of stroke previously. He is on Plavix but no other blood thinners. Patient reported multiple strokes in the past he has had several hospitalizations he has had an angiogram on July 12, 2021 another in July and then another in August all this year.He has presented here with stroke symptoms multiple times and was given TPA on September 10 and hospitalized in the left 2 days later. He had been hospitalized prior to that for CVA with a normal MRI. Onset (ago): hour(s) Time: 16:43 Last Observed Normal: 15:45 Location: left arm and left leg History of same: No Severity: moderate Quality: weak and numb Relieving factors: none Exacerbating factors: none Associated symptoms: Reports chest pain; Deny cough, diaphoresis, fevers/chills, headache(s), anorexia, malaise, nausea, seizures, short of breath, syncope, tingling, vertigo, vomiting or weakness Treatments Prior to Arrival: none Review of Systems Const: Denies: fever(s), chills, malaise or diaphoresis Eyes: Denies: change in vision or blurry vision ENMT: Denies: throat pain, ear or mastoid pain, nasal discharge or nasal congestion Card: Reports: chest pain and palpitations; Denies: syncope Resp: Reports: dyspnea; Denies: productive cough or non-productive cough GI: Denies: abdominal pain, nausea or vomiting : Denies: flank pain, dysuria, urinary frequency or urinary urgency Skin/Breast: Denies: rash or pruritus Neuro: Reports: numbness in extremities, weakness in extremities, sensory changes, lack of coordination and difficulty walking; Denies: headache(s) or vertigo [facility] ED 2 PFSH: Medical History Atherosclerotic heart disease of [place] coronary artery with unstable angina pectoris Benign essential HTN CAD (coronary artery disease) 9stents Chest pain CVA (cerebrovascular accident) Diabetes Dyslipidemia (high LDL; low HDL) Former smoker HTN (hypertension) Surgical History History of appendectomy Family History Other No pertinent family history Social History Smoking and tobacco status: former smoker Alcohol intake: never Housing: House NIH stroke score NIHSS: Level Of Consciousness - 1a: 0 Level Of Consciousness Questions - 1b: Both Correct Level Of Consciousness Commands - 1c: Both Correct Best Gaze - 2: Normal Visual Ontiveros - 3: No Visual Loss Facial Palsy - 4: Normal Motor Arm Right - 5: No Drift Motor Arm Left - 5: No Effort Against [place] Motor Leg Right - 6: No Drift Motor Leg Left - 6: No Effort Against [place] Limb Ataxia - 7: Present In Two Limbs Sensory - 8: Mild To Moderate Loss Best Language - 9: No Aphasia Dysarthia - 10: Normal Extinction And Inattention - 11: 0 Score: Total Score: 9 Physical Exam Const: GENERAL APPEARANCE: cooperative ORIENTATION/CONSCIOUSNESS: Yes awake, Yes oriented to person, Yes oriented to place and Yes oriented to time HENMT: COMMON NORMALS: normocephalic, atraumatic and hearing grossly normal bilaterally HEAD & SCALP: normocephalic and atraumatic Eye: COMMON NORMALS: Equal, round and reactive pupils present, EOMs intact bilaterally, conjunctivae normal and no scleral icterus CONJUNCTIVA: Yes conjunctivae normal PUPIL: Yes Equal, round and reactive pupils present Neck/C-Spine: COMMON NORMALS: full ROM, no lymphadenopathy and supple Lymph: LYMPHATIC: no lymphadenopathy noted and no lymphedema noted Resp: COMMON NORMALS: normal respiratory effort, No retractions, No use of accessory muscles and clear to auscultation bilaterally AUSCULTATION: clear to auscultation bilaterally Cardio: COMMON NORMALS: regular rate, regular rhythm and No murmurs present (Cardio) RATE: regular rate RHYTHM: regular rhythm GI: COMMON NORMALS: Soft to palpation and No hepatosplenomegaly present AUSCULTATION: Yes normoactive bowel sounds PALPATION: Yes Soft to palpation, No Tenderness to palpation present (GI), No Guarding due to palpation present (GI) and Yes No hepatosplenomegaly present Extremity: COMMON NORMALS: normal to inspection, capillary refill normal, no clubbing, cyanosis or edema, no calf tenderness and no pedal edema Neuro: SENSORIUM/ORIENTATION: Yes oriented to person, Yes oriented to place and Yes oriented to time OTHER: NIH score done is inconsistent. Patient reports loss of sensation to the left side but he reacts to when stimulated with noxious stimuli including sharp stimuli at the sole of the left foot causing a downgoing going Babinski and pulling away from the stimuli. Skin: COMMON NORMALS: no rashes or lesions noted GENERAL SKIN EXAM: no rashes or lesions noted Course Vital Signs: Vital signs: Vital Signs Temperature 98.8 F 10/01/21 07:00 Pulse Rate 80 10/01/21 08:01 Respiratory Rate 16 10/01/21 08:01 Blood Pressure 119/69 10/01/21 07:00 Pulse Oximetry 98 10/01/21 08:01 MDM - Neuro Symptoms/Deficit Medical Decision Making Patient has a NIH score of 9 however his exam is inconsistent and has had TPA with the last 90 days discussed with William Salazar they do not recommend TPA. Patient has had multiple CTs (12 in the last 26 days) and according to records 3 coronary angiograms since July 12. He is still having reported loss of function in the left side. Discussed with hospitalist will go ahead and observe per the recommendation of William Salazar. Orders are written. Initial orders were put in by my partner in the emergency room before I seen the patient in a head CTA neck was ordered reviewed as well. Medical Records I reviewed the patient's medical records. Lab Data I reviewed the patient's lab results. : 09/30/21 16:30 10/01/21 04:[address] 09/30/21 16:44 IMPRESSION: No acute intracranial abnormality. Head/Neck CTA 09/30/21 16:44 IMPRESSION: No large vessel stenosis, dissection, or occlusion. IMPRESSION: No stenosis, dissection, or occlusion. REFERENCES: NASCET CRITERIA. The degree of internal carotid artery stenosis is based on NASCET criteria. Normal is no stenosis. Mild is less than 50% stenosis. Moderate is 50-69% stenosis. Severe is 70% to 99% stenosis. Total occlusion is no detectable patent lumen. Laboratory Results WBC 8.0 10^3/uL (4.0-10.0) 09/30/21 16:30 RBC 4.45 10^6/uL (4.1-5.3) 09/30/21 16:30 Hgb 11.2 g/dL (11.7-16.6) L 09/30/21 16: Hct 34.3 % (42.0-52.0) L 09/30/21 16: MCV 77.1 fl (80-94) L 09/30/21 16:30 MCH 25.2 pg (28.0-34.0) L 09/30/21 16: MCHC 32.7 g/dL (30.0-36.0) 09/30/21 16: RDW 14.9 % (12.1-15.1) 09/30/21 16:30 Plt Count 280 10^3/cmm (130-400) 09/30/21 16: MPV 12.6 fL (7.4-10.4) H 09/30/21 16:30 Neut % (Auto) 54.1 % 09/30/21 16:30 Lymph % (Auto) 30.5 % 09/30/21 16:30 Summers % (Auto) 11.7 % 09/30/21 16:30 Eos % (Auto) 3.1 % 09/30/21 16:30 Baso % (Auto) 0.4 % 09/30/21 16:30 Neut # (Auto) 4.33 10^3/uL (1.8-7.7) 09/30/21 16:30 Lymph # (Auto) 2.5 10^3/uL (0.8-4.8) 09/30/21 16:30 Summers # (Auto) 0.9 10^3/uL (0.2-0.9) 09/30/21 16:30 Eos # (Auto) 0.3 10^3/uL (0.0-0.8) 09/30/21 16:30 Baso # (Auto) 0.0 10^3/uL (0.0-0.1) 09/30/21 16:30 Nucleated RBC % (auto) 0 % 09/30/21 16:30 Nucleated RBCs # 0.0 /100WBC 09/30/21 16:30 PT 12.70 SECONDS (12.1-14.9) 09/30/21 16:30 INR 0.92 (0.8-1.2) 09/30/21 16:30 APTT 28.1 SECONDS (23.9-36.7) 09/30/21 16:30 Sodium 136 mmol/L (136-145) 09/30/21 16:30 Potassium 4.1 mmol/L (3.5-5.1) 09/30/21 16:30 Chloride 103 mmol/L (98-107) 09/30/21 16:30 Carbon Dioxide 24 mmol/L (22-29) 09/30/21 16:30 Anion Gap 13.1 (5-19) 09/30/21 16:30 BUN 19 mg/dL (6-20) 09/30/21 16:30 Creatinine 1.1 mg/dL (0.7-1.2) 09/30/21 16:30 GFR Calculation 72.7 mL/min (90-130) L 09/30/21 16:30 Glucose 113 mg/dL (65-115) 09/30/21 16:30 Calculated Osmolality 285 mOsm/kg (285-295) 09/30/21 16:30 Calcium 9.3 mg/dL (8.5-10.5) 09/30/21 16:30 Total Bilirubin 0.2 mg/dL (0.15-1.2) 09/30/21 16:30 AST 14 U/L (0-40) 09/30/21 16:30 ALT 13 U/L (0-41) 09/30/21 16:30 Alkaline Phosphatase 93 IU/L (40-130) 09/30/21 16:30 Troponin T Baseline 26 ng/L (0-15) H 09/30/21 16:30 Total Protein 7.0 g/dL (6.6-8.7) 09/30/21 16:30 Albumin 4.5 g/dL (3.5-5.2) 09/30/21 16:30 Globulin 2.5 g/dL (1.3-4.6) 09/30/21 16:30 Discharge Plan Discharge Patient Disposition: Admitted As Inpatient Admit Provider: Harmony Correa Clinical Impression: Functional neurological symptom disorder (conversion disorder), with abnormal movement, Malingering, Anemia, Atypical chest pain Condition: Stable Coding Level of Care Code ED Bookbinder Chief for Chg Fwd Exam Comprehensive
[2021-09-30 17:02] LABS: Basophils % 0.4 %; Eosinophils # 0.3 10^3/uL (0.0-0.8); Eosinophils % 3.1 %; Hematocrit 34.3 % (42.0-52.0); Hemoglobin 11.2 g/dL (11.7-16.6); Lymphocytes # 2.5 10^3/uL (0.8-4.8); Lymphocytes % 30.5 %; Mean Corpuscular HGB Conc 32.7 g/dL (30.0-36.0); Mean Corpuscular Hemoglobin 25.2 pg (28.0-34.0); Mean Corpuscular Volume 77.1 fl (80-94); Mean Platelet Volume 12.6 fL (7.4-10.4); Monocytes # 0.9 10^3/uL (0.2-0.9); Monocytes % 11.7 %; Neutrophils # 4.33 10^3/uL (1.8-7.7); Neutrophils % 54.1 %; Nucleated Red Blood Cells % 0 %; Platelet Count 280 10^3/cmm (130-400); Red Blood Count 4.45 10^6/uL (4.1-5.3); Red Cell Distribution Width 14.9 % (12.1-15.1)
[2021-09-30] MEDS: iohexol 350 mg/mL 100 mL Btl IV (17:13)
[2021-09-30 17:18] VITALS: BP 152/84; PULSE 64; RESP 15; TEMP 36.8; O2SAT 99; BMI 26.6
[2021-09-30 17:26] VITALS: BP 152/84; PULSE 66; RESP 15
[2021-09-30 17:30] VITALS: BP 139/72; PULSE 68; RESP 15; O2SAT 99
[2021-09-30 17:46] LABS: INR 0.92 (0.8-1.2); Partial Thromboplastin Time 28.1 SECONDS (23.9-36.7)
[2021-09-30 17:47] LABS: Alanine Aminotransferase 13 U/L (0-41); Albumin Level 4.5 g/dL (3.5-5.2); Alkaline Phosphatase 93 IU/L (40-130); Anion Gap 13.1 (5-19); Aspartate Amino Transferase 14 U/L (0-40); Blood Urea Nitrogen 19 mg/dL (6-20); Calcium 9.3 mg/dL (8.5-10.5); Carbon Dioxide 24 mmol/L (22-29); Chloride 103 mmol/L (98-107); Globulin 2.5 g/dL (1.3-4.6); Glomerular Filtration Rate 72.7 mL/min (90-130); Glucose 113 mg/dL (65-115); Osmolality Calculated 285 mOsm/kg (285-295); Potassium 4.1 mmol/L (3.5-5.1); Sodium 136 mmol/L (136-145); Total Bilirubin 0.2 mg/dL (0.15-1.2)
--- NOTE | 2021-09-30 17:57 | ECG_ITS ---
[facility] Test Date: 2021-09-30 Pat Name: Alonso June Department: Room: Gender: Male Human Resources Team Member: : 1975 Requested By: Kam Phillips Order Number: [id number] Janel MD: Regine Bar M.D. Measurements Intervals [place] Rate: 66 P: 58 CA: 164 QRS: 67 QRSD: 82 T: 61 QT: 368 QTc: 388 Interpretive Statements SINUS RHYTHM Compared to ECG 09/30/2021 17:18:57 No significant changes Electronically Signed On 10-01-2021 6:29:44 CDT by Regine Bar M.D. [id number]
[2021-09-30 18:08] LABS: Add Urine Microscopic? NO; Charge for UA Resulting for Rev
[2021-09-30 18:17] LABS: Bilirubin Urine Neg (Negative); Blood Urine Neg (Negative); Glucose Urine UA Norm (Normal); Ketones Urine Negative (Negative); Leukocyte Esterase Urine Negative (Negative); Nitrate Urine Negative (Negative); Protein Urine Neg (Negative); Specific Gravity, Urine 1.015 (1.005-1.030); Urine Appearance Clear (CLEAR); Urine Color Yellow (Yellow); Urobilinogen Urine Norm (Negative); pH Urine 5 (5-7)
[2021-09-30 18:23] LABS: Amphetamines Screen Urine Negative (Negative); Barbiturates Screen Urine Positive (Negative); Benzodiazepines Screen Urine Negative (Negative); Cocaine Screen Urine Negative (Negative); Opiate Screen Urine Negative (Negative); PCP Screen Urine Negative (Negative); THC Screen Urine Positive (Negative)
[2021-09-30 18:30] LABS: Troponin(5th) Baseline 26 ng/L (0-15)
--- NOTE | 2021-09-30 18:31 | PM.HP ---
Providers/Chief Complaint Chief Complaint: L SIDED WEAKNESS History of Present Illness Alonso June is a 46 year old male who has been at this hospital multiple times, according to his social worker masters he has had more than 14 hospitalization in last 2 to 3 weeks, patient is stating that he returned from [place] currently living in a homeless long term, today he started experiencing chest pain around 11 AM which she is describing as sharp left-sided chest pain, it associated with numbness in his left arm and leg that prompted a visit to the ER. His symptoms are persistent however his presentation varies and exam is inconsistent. His case has been discussed with on-call neurologist who did not recommend TPA considering the fact he got TPA on last visit. Patient was laying comfortably in his bed when I entered the room however when I asked him to move his left arm and leg he was not able to do so his Babinski's negative, withdraws to pain EOMI, PERRLA Medically stable, unremarkable CBC BMP Drug screen positive for marijuana and barbiturates Head CT and CT head and neck unremarkable On previous admission CT chest was done to rule out PE because of high D-dimer which was unremarkable. His previous coronary angiogram was unremarkable. He was also evaluated by Dr. Barbour psychiatrist who did not recommend inpatient psych Patient was planning to move to [place] however he has returned and now living in a homeless long term He left against AMA on 09/12 Review of Systems Const: Denies: fever(s) Eyes: Denies: change in vision ENMT: Denies: throat pain Card: Reports: chest pain Resp: Denies: dyspnea GI: Denies: abdominal pain : Denies: flank pain Musc: Denies: neck pain Skin/Breast: Denies: rash Neuro: Reports: difficulty walking Psych: Denies: anxiety Endo: Denies: polyuria Melquiades/Lymph: Denies: easy bruising All/Imm: Denies: urticaria Medications/Allergies Home Medications Medication Instructions Recorded Confirmed Last Taken Type albuterol sulfate 90 mcg/actuation 2 puff INHALATION Q4H PRN 09/03/21 09/10/21 Unknown History aerosol inhaler (ProAir HFA) amlodipine 5 mg tablet 5 mg PO QAM 09/03/21 09/10/21 09/10/21 History aspirin 81 mg tablet,delayed 81 mg PO QAM 09/03/21 09/10/21 09/10/21 History release atorvastatin 40 mg tablet 40 mg PO BEDTIME 09/03/21 09/10/21 09/09/21 History fygoxfrvtf-niubvzhylbryd-zvggpinq 2 tab PO BID PRN 09/03/21 09/10/21 Unknown History 50 mg-325 mg-40 mg tablet clopidogrel 75 mg tablet 75 mg PO QAM 09/03/21 09/10/21 09/10/21 History levetiracetam 500 mg tablet 500 mg PO BID 09/03/21 09/10/21 09/10/21 History lisinopril 10 1 tab PO DAILY PRN 09/03/21 09/10/21 Unknown History mg-hydrochlorothiazide 12.5 mg tablet metoprolol tartrate 100 mg tablet 50 mg PO BID 09/03/21 09/10/21 09/10/21 History nitroglycerin 0.4 mg sublingual 0.4 mg SUBLINGUAL Q5M PRN 09/03/21 09/10/21 09/03/21 11:15 History tablet (Nitrostat) ondansetron HCl 4 mg tablet 4 mg PO Q8H PRN 09/03/21 09/10/21 Unknown History quetiapine 25 mg tablet See Rx Instructions .ROUTE .COMPLEX 09/03/21 09/10/21 09/10/21 History ranolazine 500 mg tablet,extended 500 mg PO BID 09/03/21 09/10/21 09/10/21 History release,12 hr insulin aspart U-100 100 unit/mL See Rx Instructions .ROUTE 09/05/21 09/10/21 Unknown Rx (3 mL) subcutaneous pen (Novolog .COMPLEX #15 ml Flexpen U-100 Insulin aspart) insulin glargine 100 unit/mL (3 5 unit (0.05 mL) SUBCUT DAILY #15 09/05/21 09/10/21 09/10/21 Rx mL) subcutaneous pen (Lantus ml Solostar U-100 Insulin) insulin aspart U-100 100 unit/mL 1 unit (0.01 mL) SUBCUT TID #3 ml 09/16/21 Unknown Rx (3 mL) subcutaneous pen (Novolog Flexpen U-100 Insulin aspart) insulin glargine 100 unit/mL (3 5 unit (0.05 mL) SUBCUT DAILY #15 09/16/21 Unknown Rx mL) subcutaneous pen (Lantus ml Solostar U-100 Insulin) isosorbide mononitrate 60 mg 60 mg PO BID #60 tab 09/20/21 Unknown Rx tablet,extended release 24 hr pantoprazole 40 mg tablet,delayed 40 mg PO DAILY 56 Days tab 09/25/21 Unknown Rx release (Protonix) ondansetron 4 mg disintegrating 4 mg PO Q6H PRN #14 tab 09/27/21 Unknown Rx tablet Allergies Allergy/AdvReac Type Severity Reaction Status Date / Time butorphanol [From Stadol] Allergy ALGY-Difficulty Verified 09/03/21 14:08 Breathing Iodinated Contrast Media Allergy Unresponsiv Verified 09/03/21 14:08 e iodine Allergy Unresponsiv Verified 09/03/21 14:08 e ketorolac [From Toradol] Allergy ALGY-Difficulty Verified 09/03/21 14:08 Breathing nalbuphine [From Nubain] Allergy Unknown Verified 09/03/21 14:08 Penicillins Allergy Unknown Verified 09/03/21 14:08 promethazine [From Phenergan] Allergy Unknown Verified 09/03/21 14:08 PFSH Acute PFSH: Medical History Atherosclerotic heart disease of [place] coronary artery with unstable angina pectoris Benign essential HTN CAD (coronary artery disease) 9stents Chest pain CVA (cerebrovascular accident) Diabetes Dyslipidemia (high LDL; low HDL) Former smoker HTN (hypertension) Surgical History History of appendectomy Family History Other No pertinent family history Social History Smoking and tobacco status: former smoker Alcohol intake: never Housing: House Vitals/I&O/Wt Last Vital Signs Temp 98.2 F 09/30/21 17:18 Pulse 68 09/30/21 17:30 Resp 15 09/30/21 17:30 BP 139/72 09/30/21 17:30 Pulse Ox 99 09/30/21 17:30 Weight last 48 hrs Weight 74.979 kg Physical Exam Narrative: Patient and comfortably in his bed No active chest pain Hemodynamically stable Saturating well on room air Not able to lift his left arm and leg Able to wiggle his digits and toes Did not respond to painful stimuli Babinski negative, downgoing plantar reflex EOMI, PERRLA Awake and alert S1, S2 No audible stridor or wheezing Satting well on room air Data : 09/30/21 16:30 09/30/21 16:30 A&P Assessment and plan (1) Functional neurological symptom disorder (conversion disorder), with abnormal movement: Status: Acute (2) Anemia: Status: Acute Qualifiers: Anemia type: unspecified type Qualified Code(s): D64.9 - Anemia, unspecified (3) Atypical chest pain: Status: Acute Plan 46-year-old male who has had multiple admissions in last 2 to 3 weeks, recently had coronary angiogram, was given TPA for left-sided weakness, presented today with chief complaint of chest pain and numbness of left upper and lower extremity Left-sided numbness(recurrent) TPA was not recommended this time considering the fact he received TPA recently Hemodynamically stable CTA head and neck, CT head unremarkable Overnight monitoring for now Will need psych evaluation Concern for neuro conversion disorder Atypical chest pain No significant EKG or troponin changes noted Chest pain-free at the time of evaluation On previous admission CTA chest was done to rule out PE which was unremarkable, Type 2 diabetes: I do not think this patient needs insulin, his hemoglobin A1c is 4.5 Noncompliance, patient left AMA last time Has had multiple admissions in 13 different hospitals social worker clinical does call us to update us, patient case manager is aware as well We will consult psych in the morning Cardiac diet Conservative management Attestations Medical Necessity Statement*: Plan to observe patient overnight for neurological deficit, concern for neuro conversion disorder Time Spent in Patient Care: 35mins Coding Level of Care Code Acute Public Address Systems Mechanic for Chg Fwd Diagnoses Functional neurological symptom disorder (conversion disorder), with abnormal movement F44.4 Anemia D64.9 Anemia type: unspecified type Atypical chest pain R07.89
--- NOTE | 2021-09-30 18:46 | PC.PHAR ---
PT STATES HE RAN OUT OF ALL HIS MEDICATIONS A FEW DAYS AGO- EXTERNAL MED HISTORY SHOWS HYDROXYZINE FILLED 09/30/21, CLOPIDOGREL FILLED 09/29/21, NITRO FILLED 09/29/21, RANOLAZINE FILLED 09/29/21-UNABLE TO CALL PHARMACY THEY ARE CLOSED. DID NOT ANSWER PHONE. PT STATES HE TAKES ALL MEDICATIONS ON MED LIST WHEN HE HAS THEM.
[2021-09-30 19:59] VITALS: BMI 24.6
--- NOTE | 2021-09-30 20:23 | NUR.SHIFT ---
During NIH scoring pt has fluctuating results. pt unable to tell me his name or , and states, looks like im in a grocery store pt was able to tell me current month and year and why he is here. On visual assessment on stroke scale. 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 On checking pt gaze. the pt starts to follow finger than moves eyes forward and states he cannot see. PT left arm and leg dropped to bed with no attempt at movement, but when this RN reentered room pt was observed using left arm to text and hold cellphone. pt was telling this RN about medical history with no dysarthria present, but when asked to say stoke word list patient showed signs of dysarthria. pt showed no ataxia in right extremities, but could not follow commands on left upper and lower extremities. MD Flaherty called 2019 and informed on pt NIHSS score and what this RN observed. no new orders at this time.
[2021-09-30 20:52] LABS: Glucose Point of Care 102 mg/dL (70-110)
[2021-09-30] MEDS: acetaminophen 325 mg Tablet 650 MG PO (21:08)
[2021-09-30] MEDS: quetiapine 25 mg Tablet 50 MG PO (21:08)
[2021-09-30] MEDS: atorvastatin 40 mg Tablet PO (21:09)
[2021-09-30] MEDS: ondansetron 2 mg/ML SDV 2 mL 4 MG IVP (21:13)
[2021-09-30] MEDS: sodium chloride 0.9% 1,000 ML 100 ML IV (21:17)
--- NOTE | 2021-09-30 21:43 | PC.NURSE ---
2129 pt removed tele monitor and unhooked IV fluids. pt educated on importances of IV fluids and monitors. pt refused both. MD silva updated and aware of situation with pt.
[2021-09-30 23:01] LABS: Troponin 5 6HR 26.62 ng/L (0-15)
[2021-09-30 23:03] LABS: Troponin 5 6HR Delta 0.62 ng/L (0-12)
[2021-09-30 23:53] VITALS: BP 128/52; PULSE 66; RESP 18; TEMP 36.5; O2SAT 98
--- NOTE | 2021-10-01 01:09 | PC.NURSE ---
when asked to garage mechanic hands pt won't use left hand, but pt seen moving left arm to grab phone.
[2021-10-01 03:00] VITALS: BP 120/48; PULSE 62; RESP 18; TEMP 36.6; O2SAT 96
[2021-10-01 05:33] LABS: Alanine Aminotransferase 10 U/L (0-41); Alkaline Phosphatase 83 IU/L (40-130); Anion Gap 13.2 (5-19); Aspartate Amino Transferase 11 U/L (0-40); Blood Urea Nitrogen 15 mg/dL (6-20); Calcium 8.9 mg/dL (8.5-10.5); Carbon Dioxide 23 mmol/L (22-29); Chloride 108 mmol/L (98-107); Globulin 2.3 g/dL (1.3-4.6); Glomerular Filtration Rate 81.2 mL/min (90-130); Glucose 111 mg/dL (65-115); Osmolality Calculated 292 mOsm/kg (285-295); Potassium 4.2 mmol/L (3.5-5.1); Sodium 140 mmol/L (136-145); Total Bilirubin 0.2 mg/dL (0.15-1.2); Total Protein 6.3 g/dL (6.6-8.7)
[2021-10-01] MEDS: clopidogrel 75 mg Tablet PO (06:17)
[2021-10-01 07:00] VITALS: BP 119/69; PULSE 67; RESP 13; TEMP 37.1; O2SAT 98
[2021-10-01 08:01] VITALS: PULSE 80; RESP 16; O2SAT 98
--- NOTE | 2021-10-01 09:09 | PC.NURSE ---
Bed alarm was heard going off by this nurse. When I walked in to patient's room, I observed him sitting on the side of the bed tieing his shoes with both upper extremities. Pt doesn't appear unsteady while sitting. Patient states he is leaving. Pt's primary nurse notified and at bedside speaking with patient.
[2021-10-01 09:32] VITALS: O2SAT 98
[2021-10-01] MEDS: quetiapine 25 mg Tablet PO (10:27)
[2021-10-01] MEDS: ranolazine (12HR) 500 mg Tablet PO (10:27)
[2021-10-01] MEDS: levETIRAcetam 500 mg Tablet PO (10:27)
[2021-10-01] MEDS: isosorbide mononitrate ER 60 mg Tablet PO (10:27)
--- NOTE | 2021-10-01 11:09 | PC.CHAP ---
Pastoral Care Encounter/Spiritual Assessment Type of Contact [] Declined parakeet raiser visit [] Patient/Family/Request visit [] Outpatient visit [] Follow-up visit [] Physician referral [] Code/Alert [x] Routine visit [] Staff referral [] Actively dying [] Patient sleeping [] Family support [] [] Out of room [] Palliative care [] [] Receiving care in room [] Pre-surgical visit [] Trauma [] Long length of stay [] ICU visit [] Other: Relational/Emotional Strength [x] Patient feels connected with others/family/visitors/staff [] Distress [] Loneliness/isolation [] Abandonment Spirituality of Patient [x] Person of Kier[place] [x] Attends Quaker of their [place] [x] Believes in Prayer [] Reads Bible or Taoism materials [] There are Spiritual issues to be addressed Billing Coordinator Interventions [x] Prayer [x] Active listening [x] Non-anxious presence [x] Spiritual/emotional support [] Crisis/trauma care [x] Spiritual counseling [] Bereavement support [] Provided bereavement packet [] Provided Bible/devotional materials [] Provided toy/stuffed animal, coloring book to patient or family member [] Provided Communion [] Anointing/Oran [] Salvation [x] Completed spiritual assessment [] Other: Impact on Illness or Injury [] Angry [] Fearful [] Anxious [] Often cries [] Exhaustion [] Unable to work [] Unable to attend spiritism [] Unable to walk/stand [] Unable to read [] Unable to drive [] Unable to eat/drink [] Unable to sleep [] Unable to be with family [] Patient intubated [] Other: Summary Time spent with patient 15 min
--- NOTE | 2021-10-01 13:08 | P.DS_ITS ---
Discharge Providers Date of Admission: 09/30/21 17:54 Date of Discharge: October 01, 2021 Attending Provider at Admission: Harmony Correa MD Attending Provider at Discharge: Harmony Correa MD Diagnoses at Discharge Discharge Diagnosis (1) Functional neurological symptom disorder (conversion disorder), with abnormal movement: Status: Acute (2) Anemia: Status: Acute (3) Atypical chest pain: Status: Acute Reason for Visit Reason for Visit: L SIDED WEAKNESS Brief History: HPI as per Dr. Rdz Alonso June is a 46 year old male who has been at this hospital multiple times, according to his social director he has had more than 14 hospitalization in last 2 to 3 weeks, patient is stating that he returned from [place] currently living in a homeless senior living, today he started experiencing chest pain around 11 AM which she is describing as sharp left-sided chest pain, it associated with numbness in his left arm and leg that prompted a visit to the ER.? His symptoms are persistent however his presentation varies and exam is inconsistent.? His case has been discussed with on-call neurologist who did not recommend TPA considering the fact he got TPA on last visit. Patient was laying comfortably in his bed when I entered the room however when I asked him to move his left arm and leg he was not able to do so his Babinski's negative, withdraws to pain EOMI, PERRLA Medically stable, unremarkable CBC BMP Drug screen positive for marijuana and barbiturates Head CT and CT head and neck unremarkable On previous admission CT chest was done to rule out PE because of high D-dimer which was unremarkable.? His previous coronary angiogram was unremarkable.? He was also evaluated by Dr. Barbour psychiatrist who did not recommend inpatient psych Patient was planning to move to [place] however he has returned and now living in a homeless senior living He left against AMA on 09/12 Hospital Course Hospital Course Patient was admitted for observation. tPA was not given due to being high risk. CTA head and neck unremarkable, head CT unremarkable. Psychiatry was contacted. There is a note by Dr. Barbour that states that patient does not require any inpatient psychiatric treatment at this time. He was seen by Dr. Barbour on 09/12/2021. Since patient was returned for similar symptoms compared to previous admission another psychiatry consult was not done. Next morning when patient was seen it was noted that he was walking around the room dressed up in his street clothes. He stated that he felt better and did not have any other symptoms at this time and would not to go home. He is currently living in a homeless senior living with his and kids. He requested for a walker and oxygen. Respiratory therapy evaluated the patient but patient did not qualify for oxygen. Patient was on 98% room air. Due to patient's complaint of subjective left-sided weakness a walker was ordered for him. Neuro exam was unremarkable and strength was 5 out of 5 upper and lower extremities bilaterally with cranial nerves intact. He did not have any neurological deficits at this time. He only complained of a mild headache for which he requested Tylenol. Patient also stated that he wanted a refill on all his medications as he ran out 3 weeks ago and he has not taken his medications for about a month now. When asked which medications he was on he was only able to name aspirin Plavix and nitro tablets which he says he used for chest pain. He also requested for insulin however his hemoglobin A1c was 4.5 last month and his blood sugar has been 100-1 10 during his hospital stay. His blood pressure has also been normal during hospital stay. I refilled some of his medications but held all of the others until he sees his primary care doctor for further management. I also called patient's pharmacy which he states is [facility] pharmacy to confirm patient's medication list and I was told that he has not filled any of those medications except sublingual nitro NovoLog colchicine and Plavix. Patient was seen again few hours later and asked if he had any symptoms or any other concerns to which he has had no and tach that he felt well enough to go home. Denied any chest pain, shortness of breath, weakness, sensation loss, neurologic deficits. Patient will be given a follow-up appointment with his primary care physician which he says is at [facility] but does not know his name. I discussed with piano case and bench assembler to set up a PCP appointment for him and then discharge the patient. I do have a suspicion of neuro conversion disorder for this patient. He has been to 13 different hospitals recently and has had 3 cardiac angiograms and [address] scans as per ER physician. Physical Exam Narrative: General: Alert oriented x3, patient seen sitting up in bed after seen walking around his room wearing history of clothes. HEENT: Normocephalic, atraumatic, EOMI, breathing room air, normal respiratory effort. Cardio: Regular rate rhythm, normal S1-S2, no murmurs rubs gallops, Respiratory: Good bilateral air entry, no wheezes no rhonchi appreciated GI: Abdomen soft, nontender, nondistended, bowel sounds + Behavior: Cooperative Extremities: no edema, no cyanosis Neuro: Nonfocal neuro exam, strength 5 out of 5 bilateral upper and lower extremities, sensation intact, gait normal, cranial nerves II to XII intact. No gross focal neurologic deficits noted. No aphasia. Discharge Data Studies Completed and Pending Completed Studies During Hospitalization Category Date Time Status CT angio headneck* [id number] Stat Cat Scan 09/30/21 16:[address] head wo con* [id number] Stat Cat Scan 09/30/21 16:44 Completed Radiology Impressions Head CT 09/30/21 16:44 IMPRESSION: No acute intracranial abnormality. Head/Neck CTA 09/30/21 16:44 IMPRESSION: No large vessel stenosis, dissection, or occlusion. IMPRESSION: No stenosis, dissection, or occlusion. REFERENCES: NASCET CRITERIA. The degree of internal carotid artery stenosis is based on NASCET criteria. Normal is no stenosis. Mild is less than 50% stenosis. Moderate is 50-69% stenosis. Severe is 70% to 99% stenosis. Total occlusion is no detectable patent lumen. Laboratory Results WBC 8.0 10^3/uL (4.0-10.0) 09/30/21 16:30 RBC 4.45 10^6/uL (4.1-5.3) 09/30/21 16:30 Hgb 11.2 g/dL (11.7-16.6) L 09/30/21 16:30 Hct 34.3 % (42.0-52.0) L 09/30/21 16:30 MCV 77.1 fl (80-94) L 09/30/21 16:30 MCH 25.2 pg (28.0-34.0) L 09/30/21 16:30 MCHC 32.7 g/dL (30.0-36.0) 09/30/21 16:30 RDW 14.9 % (12.1-15.1) 09/30/21 16:30 Plt Count 280 10^3/cmm (130-400) 09/30/21 16:30 MPV 12.6 fL (7.4-10.4) H 09/30/21 16:30 Neut % (Auto) 54.1 % 09/30/21 16:30 Lymph % (Auto) 30.5 % 09/30/21 16:30 [place] % (Auto) 11.7 % 09/30/21 16:30 Eos % (Auto) 3.1 % 09/30/21 16:30 Baso % (Auto) 0.4 % 09/30/21 16:30 Neut # (Auto) 4.33 10^3/uL (1.8-7.7) 09/30/21 16:30 Lymph # (Auto) 2.5 10^3/uL (0.8-4.8) 09/30/21 16:30 [place] # (Auto) 0.9 10^3/uL (0.2-0.9) 09/30/21 16:30 Eos # (Auto) 0.3 10^3/uL (0.0-0.8) 09/30/21 16:30 Baso # (Auto) 0.0 10^3/uL (0.0-0.1) 09/30/21 16:30 Nucleated RBC % (auto) 0 % 09/30/21 16: Nucleated RBCs # 0.0 /100WBC 09/30/21 16:30 PT 12.70 SECONDS (12.1-14.9) 09/30/21 16:30 INR 0.92 (0.8-1.2) 09/30/21 16:30 APTT 28.1 SECONDS (23.9-36.7) 09/30/21 16:30 Sodium 140 mmol/L (136-145) 10/01/21 04:46 Potassium 4.2 mmol/L (3.5-5.1) 10/01/21 04:46 Chloride 108 mmol/L (98-107) H 10/01/21 04:46 Carbon Dioxide 23 mmol/L (22-29) 10/01/21 04:46 Anion Gap 13.2 (5-19) 10/01/21 04:46 BUN 15 mg/dL (6-20) 10/01/21 04:46 Creatinine 1.0 mg/dL (0.7-1.2) 10/01/21 04:46 GFR Calculation 81.2 mL/min (90-130) L 10/01/21 04:46 Glucose 111 mg/dL (65-115) 10/01/21 04:46 POC Glucose 102 mg/dL (70-110) 09/30/21 20:43 Calculated Osmolality 292 mOsm/kg (285-295) 10/01/21 04:46 Calcium 8.9 mg/dL (8.5-10.5) 10/01/21 04:46 Total Bilirubin 0.2 mg/dL (0.15-1.2) 10/01/21 04:46 AST 11 U/L (0-40) 10/01/21 04:46 ALT 10 U/L (0-41) 10/01/21 04:46 Alkaline Phosphatase 83 IU/L (40-130) 10/01/21 04:46 Troponin T Baseline 26 ng/L (0-15) H 09/30/21 16:30 Troponin T Hi Sens 6Hr 26.62 ng/L (0-15) H 09/30/21 22:33 Troponin T Hi Sens 6Hr Delta 0.62 ng/L (0-12) 09/30/21 22:33 Total Protein 6.3 g/dL (6.6-8.7) L 10/01/21 04:46 Albumin 4.0 g/dL (3.5-5.2) 10/01/21 04:46 Globulin 2.3 g/dL (1.3-4.6) 10/01/21 04:46 Urine Color Yellow (Yellow) 09/30/21 17:59 Urine Appearance Clear (CLEAR) 09/30/21 17:59 Urine pH 5 (5-7) 09/30/21 17:59 Ur Specific [place] 1.015 (1.005-1.030) 09/30/21 17:59 Urine Protein Neg (Negative) 09/30/21 17:59 Urine Glucose (UA) Norm (Normal) 09/30/21 17:59 Urine Ketones Negative (Negative) 09/30/21 17:59 Urine Blood Neg (Negative) 09/30/21 17:59 Urine Nitrate Negative (Negative) 09/30/21 17:59 Urine Bilirubin Neg (Negative) 09/30/21 17:59 Urine Urobilinogen Norm mg/dL (Negative) 09/30/21 17:59 Ur Leukocyte Esterase Negative (Negative) 09/30/21 17:59 Urine Opiates Screen Negative ng/mL (Negative) 09/30/21 17:59 Ur Barbiturates Screen Positive ng/mL (Negative) H 09/30/21 17:59 Ur Phencyclidine Scrn Negative ng/mL (Negative) 09/30/21 17:59 Ur Amphetamines Screen Negative ng/mL (Negative) 09/30/21 17:59 U Benzodiazepines Scrn Negative ng/mL (Negative) 09/30/21 17:59 Urine Cocaine Screen Negative ng/mL (Negative) 09/30/21 17:59 U Marijuana (THC) Screen Positive ng/mL (Negative) H 09/30/21 17:59 Vitals Last Vital Signs Temp 98.8 F 10/01/21 07:00 Pulse 80 10/01/21 08:01 Resp 16 10/01/21 08:01 BP 119/69 10/01/21 07:00 Pulse Ox 98 10/01/21 09:32 Discharge Plan Discharge Patient Disposition: Home Condition: Stable Prescriptions: Continued nitroglycerin [Nitrostat] 0.4 mg Tablet, Sublingual 0.4 mg SUBLINGUAL Q5M PRN (Reason: Chest Pain) 0RF Rx Instructions: do not exceed 3 doses per episode ondansetron 4 mg tablet,disintegrating 4 mg PO Q6H PRN (Reason: nausea and vomiting) Qty: 14 0RF albuterol sulfate [ProAir HFA] 90 mcg/actuation HFA aerosol inhaler 2 puff INHALATION Q4H PRN (Reason: Shortness Of Breath) 1 Days Qty: 30 0RF aspirin 81 mg Tablet,Delayed Release (Dr/Ec) 81 mg PO QAM 30 Days Qty: 30 0RF atorvastatin 40 mg tablet 40 mg PO BEDTIME 30 Days Qty: 30 0RF clopidogrel 75 mg tablet 75 mg PO QAM 30 Days Qty: 30 0RF levetiracetam 500 mg tablet 500 mg PO BID 30 Days Qty: 60 0RF pantoprazole [Protonix] 40 mg tablet,delayed release (DR/EC) 40 mg PO DAILY 30 Days Qty: 30 0RF Held quetiapine 25 mg tablet See Rx Instructions .ROUTE .COMPLEX 0RF Hold Instructions: see pcp Rx Instructions: 25MG PO AT 09:00 AND 15:00 AND 50MG PO AT BEDTIME metoprolol tartrate 100 mg tablet 50 mg PO BID 0RF Hold Instructions: see pcp ondansetron HCl 4 mg tablet 4 mg PO Q8H PRN (Reason: Nausea And Vomiting) 0RF Hold Instructions: see PCP amlodipine 5 mg tablet 5 mg PO QAM 0RF Hold Instructions: See PCP before resuming. BP normal without meds mggbjkamvf-ddglexalavgju-vief 50-325-40 mg tablet 2 tab PO BID PRN (Reason: Migraine Headache) 0RF Hold Instructions: interaction with aspirin lisinopril-hydrochlorothiazide 10-12.5 mg tablet 1 tab PO DAILY PRN (Reason: Blood Pressure) 0RF Hold Instructions: See PCP ranolazine 500 mg tablet extended release 12 hr 500 mg PO BID 0RF Hold Instructions: see PCP insulin aspart U-100 [Novolog Flexpen U-100 Insulin] 100 unit/mL (3 mL) insulin pen See Rx Instructions .ROUTE .COMPLEX Qty: 15 0RF Hold Instructions: See PCP Rx Instructions: Inject, 3 times daily, after meals, based on sliding scale provided Lantus Solostar U-100 Insulin 100 unit/mL (3 mL) Insulin Pen 5 unit SUBCUT DAILY Qty: 15 0RF Hold Instructions: See PCP Lantus Solostar U-100 Insulin 100 unit/mL (3 mL) insulin pen 5 unit SUBCUT DAILY Qty: 15 0RF Hold Instructions: See PCP insulin aspart U-100 [Novolog Flexpen U-100 Insulin] 100 unit/mL (3 mL) insulin pen 1 unit SUBCUT TID Qty: 3 0RF Hold Instructions: See PCP Rx Instructions: Inject 3 times daily after meals based on sliding scale. isosorbide mononitrate 60 mg tablet extended release 24 hr 60 mg PO BID Qty: 60 0RF Hold Instructions: see pcp Discharge Orders: Discharge Order (Routine); Ordered 10/01/21 Ordered By: Harmony Correa Other Ambulatory Orders: DME: Walker (Order) Location: None Selected Ordered By: Harmony Correa Discharge Diet: Cardiac Discharge Activity: Resume usual activity and Use walker/crutches as instructed Patient Instructions: Opioid Safety Activity Restrictions/Additional Instructions: Please follow up with your primary care doctor for further management of your health conditions. Discharge Attestations Time Spent in Discharge Care*: greater than 30 min Quality Metrics Clinical Quality Measures [ No reported AMI, CVA or VTE this stay] Coding Level of Care Code Acute g [facility] note Diagnoses Functional neurological symptom disorder (conversion disorder), with abnormal movement F44.4 Anemia D64.9 Atypical chest pain R07.89 Time Spent (min) 35
== END 2021-10-01 14:28 | disposition home or self-care (01) ==
LOC: ER 19:01 → MEDSURG 23:02
PROVIDERS: Emergency Medicine; Admitting Provider Internal Medicine; Emergency Provider Family Medicine; Visit Provider Internal Medicine
DX: F44.4 Conversion disorder with motor symptom or deficit (principal); D64.9 Anemia, unspecified; R07.89 Other chest pain; Z79.82 Long term (current) use of aspirin; Z79.4 Long term (current) use of insulin; I25.110 Atherosclerotic heart disease of native coronary artery with unstable angina pectoris; Z95.5 Presence of coronary angioplasty implant and graft; I10 Essential (primary) hypertension; E11.9 Type 2 diabetes mellitus without complications; E78.5 Hyperlipidemia, unspecified; Z87.891 Personal history of nicotine dependence
CPT/HCPCS: 36415; 36416; 70450; 70496; 70498; 80053; 80306; 81003; 82962; 84484; 85025; 85610; 85730; 93005; 99285; G0378; J2405; J7030; Q9967

== ENCOUNTER 2021-10-07 13:46 | Emergency (ER) | payer OTHER, MEDICAID, SELFPAY ==
--- NOTE | 2021-10-07 13:55 | ECG_ITS ---
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 Measurements Intervals [place] Rate: 102 P: 65 KS: 141 QRS: 70 QRSD: 79 T: 51 QT: 302 QTc: 394 Interpretive Statements SINUS TACHYCARDIA MINIMAL VOLTAGE CRITERIA FOR LVH, CONSIDER NORMAL VARIANT [MEETS CRITERIA IN ONE OF: R(aVL), S(V1), R(V5), R(V5/V6)+S(V1)] ABNORMAL RHYTHM ECG Compared to ECG 09/30/2021 19:07:51 Sinus rhythm no longer present Electronically Signed On 10-07-2021 18:56:35 CDT by Anatoliy Jean Baptiste M.D. [email or web address]
[2021-10-07 13:57] VITALS: BP 136/78; PULSE 99; RESP 18; TEMP 36.6; O2SAT 99; BMI 23.3
--- NOTE | 2021-10-07 14:24 | XR_ITS ---
WS: [id number] Exam: XR chest 1V portable [id number] Date/Time of Exam: 10/07/2021 2:24 PM Reason For Exam: chest pain Comparison 09/27/2021. The lungs are clear and fully expanded. No pleural effusions. Normal cardiomediastinal silhouette. Si gns of previous coronary artery stenting. Bony structures are unremarkable. XR/XR chest 1V portable [id number] IMPRESSION: 1. No acute cardiopulmonary finding.
[2021-10-07 15:09] LABS: Basophils % 0.9 %; Eosinophils # 0.1 10^3/uL (0.0-0.8); Eosinophils % 2.1 %; Hematocrit 34.8 % (42.0-52.0); Hemoglobin 10.8 g/dL (11.7-16.6); Lymphocytes # 1.1 10^3/uL (0.8-4.8); Lymphocytes % 25.8 %; Mean Corpuscular Hemoglobin 23.6 pg (28.0-34.0); Mean Corpuscular Volume 76.1 fl (80-94); Mean Platelet Volume 11.4 fL (7.4-10.4); Monocytes # 0.8 10^3/uL (0.2-0.9); Neutrophils # 2.22 10^3/uL (1.8-7.7); Neutrophils % 52.7 %; Nucleated Red Blood Cells % 0 %; Platelet Count 224 10^3/cmm (130-400); Red Blood Count 4.57 10^6/uL (4.1-5.3); White Blood Count 4.2 10^3/uL (4.0-10.0)
[2021-10-07 15:29] LABS: Slide Review Slide Review Perform
[2021-10-07 15:31] LABS: Troponin(5th) Baseline 14 ng/L (0-15)
[2021-10-07 15:41] LABS: Anion Gap 12.5 (5-19); Blood Urea Nitrogen 8 mg/dL (6-20); Calcium 9.3 mg/dL (8.5-10.5); Carbon Dioxide 25 mmol/L (22-29); Chloride 103 mmol/L (98-107); Glomerular Filtration Rate 81.2 mL/min (90-130); Glucose 100 mg/dL (65-115); Osmolality Calculated 282 mOsm/kg (285-295); Potassium 3.5 mmol/L (3.5-5.1); Sodium 137 mmol/L (136-145)
[2021-10-07 17:28] LABS: Troponin 5 2HR 12.26 ng/L (0-15)
[2021-10-07 17:36] LABS: Troponin 5 2HR Delta -1.74 ABS# (0-10)
== END 2021-10-07 15:24 | disposition left against medical advice (07) ==
LOC: ER 13:55
PROVIDERS: Emergency Medicine; Emergency Provider Family Medicine
DX: Z53.21 Procedure and treatment not carried out due to patient leaving prior to being seen by health care provider (principal); R07.9 Chest pain, unspecified; R06.02 Shortness of breath
CPT/HCPCS: 71045; 80048; 84484; 85025; 93005; 99282

== ENCOUNTER 2021-10-07 16:49 | Emergency (ER) | payer OTHER, MEDICAID, SELFPAY ==
[2021-10-07 16:54] VITALS: BP 115/85; PULSE 89; RESP 16; TEMP 37.1; O2SAT 98; BMI 22.7
--- NOTE | 2021-10-07 16:56 | ECG_ITS ---
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 Measurements Intervals [place] Rate: 80 P: 58 MN: 153 QRS: 61 QRSD: 89 T: 55 QT: 336 QTc: 390 Interpretive Statements SINUS RHYTHM Compared to ECG 10/07/2021 13:52:46 Sinus tachycardia no longer present Electronically Signed On 10-07-2021 18:57:01 CDT by Anatoliy Jean Baptiste M.D. [email or web address]
--- NOTE | 2021-10-07 16:56 | XRR_ITS ---
PROCEDURE INFORMATION: Exam: XR Left Wrist Exam date and time: 10/07/2021 5:20 PM Age: 46 years old Clinical indication: Pain; Wrist; Left; Additional info: Pain after fall TECHNIQUE: Imaging protocol: XR Left wrist. Views: 3 or more views. COMPARISON: No relevant prior studies available. FINDINGS: Bones/joints: Normal. Soft tissues: Normal. XR/XR wrist LT min 3V* [id number] IMPRESSION: No acute findings.
--- NOTE | 2021-10-07 16:57 | ED_ITS ---
Documented by User: Kam Martinez DO 10/08/21 07:26 HPI - Chest Pain General: Chief Complaint: Chest Pain Stated Complaint: CHEST PAIN Time Seen by Provider: 10/07/21 16:52 Source: patient Mode of arrival: EMS Limitations: no limitations History of Present Illness: 46-year-old male presents emergency room via EMS complaining of chest pain. Patient has been here multiple times also presented multiple times complaining of left-sided stroke. There is no documentation that he ever actually had a stroke unfortunately 1 time he did receive tPA and then a few weeks later presented again with the same symptoms at that time was elected not to pursue any aggressive treatments. He has had 3 heart catheterizations in the last 3 months. He has had 12-15 CTs at our facility in the last 4 to 5 weeks. No significant findings with any of these. Today he has a similar complaint what he had before he does not elaborate on other than saying he has chest pain and left wrist pain left wrist pain is due to a fall that happened 10 to 15 minutes before he arrived here. MD complaint: chest pain Onset (ago): minute(s) Timing of current episode: episodic Prior episodes: Yes Onset: during rest Pain location: left chest Pain radiation: none Severity: mild Quality: tightness, aching and heaviness Relieving factors: nothing Exacerbating factors: nothing Associated symptoms: Deny abdominal pain, diaphoresis, dyspnea, fever(s), leg edema, nausea, palpitations, sense of impending doom, syncope or vomiting Treatment prior to arrival: none Review of Systems Const: Denies: fever(s), chills or diaphoresis ENMT: Denies: throat pain, ear or mastoid pain, nasal discharge or nasal congestion Card: Reports: chest pain; Denies: palpitations or syncope Resp: Denies: dyspnea, productive cough or non-productive cough GI: Denies: abdominal pain, nausea or vomiting : Denies: flank pain, dysuria, urinary frequency or urinary urgency Musc: Reports: joint pain (Left wrist) Skin/Breast: Denies: rash or pruritus PFS ED PFSH: Medical History Atherosclerotic heart disease of [place] coronary artery with unstable angina pectoris Benign essential HTN CAD (coronary artery disease) 9stents Chest pain CVA (cerebrovascular accident) Diabetes Dyslipidemia (high LDL; low HDL) Former smoker HTN (hypertension) Surgical History History of appendectomy Family History Other No pertinent family history Social History Smoking and tobacco status: former smoker Alcohol intake: never Housing: House Physical Exam Const: ORIENTATION/CONSCIOUSNESS: Yes awake HENMT: COMMON NORMALS: normocephalic, atraumatic and hearing grossly normal bilaterally HEAD & SCALP: normocephalic and atraumatic Neck/C-Spine: COMMON NORMALS: no JVD Resp: COMMON NORMALS: normal respiratory effort, No retractions, No use of accessory muscles and clear to auscultation bilaterally AUSCULTATION: clear to auscultation bilaterally Cardio: COMMON NORMALS: no JVD, regular rate, regular rhythm and No murmurs present (Cardio) RATE: regular rate RHYTHM: regular rhythm GI: COMMON NORMALS: Soft to palpation and No hepatosplenomegaly present AUSCULTATION: Yes normoactive bowel sounds PALPATION: Yes Soft to palpation, No Tenderness to palpation present (GI), No Guarding due to palpation present (GI) and Yes No hepatosplenomegaly present Extremity: COMMON NORMALS: normal to inspection, capillary refill normal, no clubbing, cyanosis or edema, no calf tenderness and no pedal edema Skin: COMMON NORMALS: no rashes or lesions noted GENERAL SKIN EXAM: no rashes or lesions noted Course Vital Signs: Vital signs: Vital Signs Temperature 98.8 F 10/07/21 16:54 Pulse Rate 95 10/07/21 18:57 Respiratory Rate 18 10/07/21 18:57 Blood Pressure 102/74 10/07/21 18:57 Pulse Oximetry 98 10/07/21 18:57 [facility] - Chest Pain Medical Decision Making Care signed out to Dr. Jaime At change of shift. See final notes for diagnosis and disposition. Patient presents for chest pains atypical in nature he is well-appearing here he is stable for discharge. His troponins here are negative he has had a recent negative cath he is to follow-up with PCP and return if worsening Lab Data Radiology Impressions Wrist X-Ray 04/19/22 16:56 IMPRESSION: No acute findings. Discharge Plan Discharge Patient Disposition: Home Clinical Impression: Chest pain Condition: Stable Prescriptions: No Action quetiapine 25 mg tablet See Rx Instructions .ROUTE .COMPLEX 0RF Hold Instructions: see pcp Rx Instructions: 25MG PO AT 09:00 AND 15:00 AND 50MG PO AT BEDTIME metoprolol tartrate 100 mg tablet 50 mg PO BID 0RF Hold Instructions: see pcp ondansetron HCl 4 mg tablet 4 mg PO Q8H PRN (Reason: Nausea And Vomiting) 0RF Hold Instructions: see PCP amlodipine 5 mg tablet 5 mg PO QAM 0RF Hold Instructions: See PCP before resuming. BP normal without meds uhemilkaaa-vmefdmkzdvghs-ikcx 50-325-40 mg tablet 2 tab PO BID PRN (Reason: Migraine Headache) 0RF Hold Instructions: interaction with aspirin nitroglycerin [Nitrostat] 0.4 mg Tablet, Sublingual 0.4 mg SUBLINGUAL Q5M PRN (Reason: Chest Pain) 0RF Rx Instructions: do not exceed 3 doses per episode lisinopril-hydrochlorothiazide 10-12.5 mg tablet 1 tab PO DAILY PRN (Reason: Blood Pressure) 0RF Hold Instructions: See PCP ranolazine 500 mg tablet extended release 12 hr 500 mg PO BID 0RF Hold Instructions: see PCP insulin aspart U-100 [Novolog Flexpen U-100 Insulin] 100 unit/mL (3 mL) insulin pen See Rx Instructions .ROUTE .COMPLEX Qty: 15 0RF Hold Instructions: See PCP Rx Instructions: Inject, 3 times daily, after meals, based on sliding scale provided Lantus Solostar U-100 Insulin 100 unit/mL (3 mL) Insulin Pen 5 unit SUBCUT DAILY Qty: 15 0RF Hold Instructions: See PCP Lantus Solostar U-100 Insulin 100 unit/mL (3 mL) insulin pen 5 unit SUBCUT DAILY Qty: 15 0RF Hold Instructions: See PCP insulin aspart U-100 [Novolog Flexpen U-100 Insulin] 100 unit/mL (3 mL) insulin pen 1 unit SUBCUT TID Qty: 3 0RF Hold Instructions: See PCP Rx Instructions: Inject 3 times daily after meals based on sliding scale. isosorbide mononitrate 60 mg tablet extended release 24 hr 60 mg PO BID Qty: 60 0RF Hold Instructions: see pcp ondansetron 4 mg tablet,disintegrating 4 mg PO Q6H PRN (Reason: nausea and vomiting) Qty: 14 0RF atorvastatin 40 mg tablet 40 mg PO BEDTIME 30 Days Qty: 30 0RF levetiracetam 500 mg tablet 500 mg PO BID 30 Days Qty: 60 0RF clopidogrel 75 mg tablet 75 mg PO QAM 30 Days Qty: 30 0RF Protonix 40 mg tablet,delayed release (DR/EC) 40 mg PO DAILY 30 Days Qty: 30 0RF ProAir HFA 90 mcg/actuation HFA aerosol inhaler 2 puff INHALATION Q4H PRN (Reason: Shortness Of Breath) 1 Days Qty: 30 0RF aspirin 81 mg Tablet,Delayed Release (Dr/Ec) 81 mg PO QAM 30 Days Qty: 30 0RF Discharge Orders: Discharge ED (Routine); Ordered 10/07/21 Ordered By: Jb Jaime Discharge Diet: Advance as tolerated Discharge Activity: Resume usual activity Patient Instructions: Chest Pain (ED) Coding Level of Care Code ED [employer] Line Worker for Chg Fwd Exam Comprehensive Documented by User: Jb Jaime MD 10/07/21 18:25 HPI - Chest Pain General: Chief Complaint: Chest Pain Stated Complaint: CHEST PAIN Time Seen by Provider: 10/07/21 16:52 PFSH ED PFSH: Medical History Atherosclerotic heart disease of [place] coronary artery with unstable angina pectoris Benign essential HTN CAD (coronary artery disease) 9stents Chest pain CVA (cerebrovascular accident) Diabetes Dyslipidemia (high LDL; low HDL) Former smoker HTN (hypertension) Surgical History History of appendectomy Family History Other No pertinent family history Social History Smoking and tobacco status: former smoker Alcohol intake: never Housing: House Course Vital Signs: Vital signs: Vital Signs Temperature 98.8 F 10/07/21 16:54 Pulse Rate 95 10/07/21 18:57 Respiratory Rate 18 10/07/21 18:57 Blood Pressure 102/74 10/07/21 18:57 Pulse Oximetry 98 10/07/21 18:57 MDM - Chest Pain Medical Decision Making Patient presents for chest pains atypical in nature he is well-appearing here he is stable for discharge. His troponins here are negative he has had a recent negative cath he is to follow-up with PCP and return if worsening Lab Data Radiology Impressions Wrist X-Ray 10/07/21 16:56 IMPRESSION: No acute findings. Discharge Plan Discharge Patient Disposition: Home Clinical Impression: Chest pain Condition: Stable Prescriptions: No Action quetiapine 25 mg tablet See Rx Instructions .ROUTE .COMPLEX 0RF Hold Instructions: see pcp Rx Instructions: 25MG PO AT 09:00 AND 15:00 AND 50MG PO AT BEDTIME metoprolol tartrate 100 mg tablet 50 mg PO BID 0RF Hold Instructions: see pcp ondansetron HCl 4 mg tablet 4 mg PO Q8H PRN (Reason: Nausea And Vomiting) 0RF Hold Instructions: see PCP amlodipine 5 mg tablet 5 mg PO QAM 0RF Hold Instructions: See PCP before resuming. BP normal without meds vedghzmzby-ajuvdlagcozjs-iqio 50-325-40 mg tablet 2 tab PO BID PRN (Reason: Migraine Headache) 0RF Hold Instructions: interaction with aspirin nitroglycerin [Nitrostat] 0.4 mg Tablet, Sublingual 0.4 mg SUBLINGUAL Q5M PRN (Reason: Chest Pain) 0RF Rx Instructions: do not exceed 3 doses per episode lisinopril-hydrochlorothiazide 10-12.5 mg tablet 1 tab PO DAILY PRN (Reason: Blood Pressure) 0RF Hold Instructions: See PCP ranolazine 500 mg tablet extended release 12 hr 500 mg PO BID 0RF Hold Instructions: see PCP insulin aspart U-100 [Novolog Flexpen U-100 Insulin] 100 unit/mL (3 mL) insulin pen See Rx Instructions .ROUTE .COMPLEX Qty: 15 0RF Hold Instructions: See PCP Rx Instructions: Inject, 3 times daily, after meals, based on sliding scale provided Lantus Solostar U-100 Insulin 100 unit/mL (3 mL) Insulin Pen 5 unit SUBCUT DAILY Qty: 15 0RF Hold Instructions: See PCP Lantus Solostar U-100 Insulin 100 unit/mL (3 mL) insulin pen 5 unit SUBCUT DAILY Qty: 15 0RF Hold Instructions: See PCP insulin aspart U-100 [Novolog Flexpen U-100 Insulin] 100 unit/mL (3 mL) insulin pen 1 unit SUBCUT TID Qty: 3 0RF Hold Instructions: See PCP Rx Instructions: Inject 3 times daily after meals based on sliding scale. isosorbide mononitrate 60 mg tablet extended release 24 hr 60 mg PO BID Qty: 60 0RF Hold Instructions: see pcp ondansetron 4 mg tablet,disintegrating 4 mg PO Q6H PRN (Reason: nausea and vomiting) Qty: 14 0RF atorvastatin 40 mg tablet 40 mg PO BEDTIME 30 Days Qty: 30 0RF levetiracetam 500 mg tablet 500 mg PO BID 30 Days Qty: 60 0RF clopidogrel 75 mg tablet 75 mg PO QAM 30 Days Qty: 30 0RF Protonix 40 mg tablet,delayed release (DR/EC) 40 mg PO DAILY 30 Days Qty: 30 0RF ProAir HFA 90 mcg/actuation HFA aerosol inhaler 2 puff INHALATION Q4H PRN (Reason: Shortness Of Breath) 1 Days Qty: 30 0RF aspirin 81 mg Tablet,Delayed Release (Dr/Ec) 81 mg PO QAM 30 Days Qty: 30 0RF Discharge Orders: Discharge ED (Routine); Ordered 10/07/21 Ordered By: Jb Jaime Discharge Diet: Advance as tolerated Discharge Activity: Resume usual activity Patient Instructions: Chest Pain (ED) Coding Level of Care Code ED [employer] Line Worker for Rajivg Fwd Exam Comprehensive
[2021-10-07 17:26] VITALS: BP 134/79; PULSE 78; RESP 18; O2SAT 100
[2021-10-07 18:57] VITALS: BP 102/74; PULSE 95; RESP 18; O2SAT 98
== END 2021-10-07 18:52 | disposition home or self-care (01) ==
PROVIDERS: Emergency Provider Emergency Medicine
DX: R07.9 Chest pain, unspecified (principal); M25.532 Pain in left wrist; I25.110 Atherosclerotic heart disease of native coronary artery with unstable angina pectoris; I10 Essential (primary) hypertension; E11.9 Type 2 diabetes mellitus without complications; E78.5 Hyperlipidemia, unspecified; Z86.73 Personal history of transient ischemic attack (TIA), and cerebral infarction without residual deficits; Z87.891 Personal history of nicotine dependence
CPT/HCPCS: 73110; 93005; 99283

== ENCOUNTER 2021-10-07 21:37 | Inpatient (IN) | payer MEDICAID, SELFPAY ==
[2021-10-07 21:55] VITALS: BP 160/79; PULSE 82; RESP 18; TEMP 36.8; O2SAT 98; BMI 23.3
--- NOTE | 2021-10-07 22:04 | W.ED.GENADLT ---
HPI - General Adult General: Chief complaint: General Medical Stated complaint: stressed out Time Seen by Provider: 10/07/21 22:02 History of Present Illness: 46-year-old male patient comes in today with complaints of stress and suicidal thoughts. Patient is homeless and has been residing in the out reach center but recently had some problems with an out reach center he reports and has left the center. Patient has no other place to live. Patient states that he feels hopeless and has walked out in front of traffic twice today wanting to harm himself. Patient was seen earlier today in the emergency room for a fall injury but did not have any abnormalities. Patient has a history of bipolar disorder, diabetes mellitus type 2, and hypertension. Patient reports he was hospitalized in the stress unit in [place] 2 years ago. Associated symptoms: Reports headache(s); Deny chest pain or dyspnea Review of Systems General: Reports: 10 or more systems reviewed and unremarkable except in HPI and below Card: Denies: chest pain Resp: Denies: dyspnea Neuro: Reports: headache(s) Psych: Reports: anxiety, depression and suicidal ideation [facility] ED PFSH: Medical History Atherosclerotic heart disease of [place] coronary artery with unstable angina pectoris Benign essential HTN CAD (coronary artery disease) 9stents Chest pain CVA (cerebrovascular accident) Diabetes Dyslipidemia (high LDL; low HDL) Former smoker HTN (hypertension) Surgical History History of appendectomy Family History Other No pertinent family history Social History Smoking and tobacco status: former smoker Alcohol intake: never Housing: House Physical Exam Const: COMMON NORMALS: alert Neck/C-Spine: COMMON NORMALS: full ROM Chest: COMMONS NORMALS: normal inspection of the chest and normal palpation of the breasts BREAST/AXILLA PALPATION: Yes normal palpation of the breasts Resp: COMMON NORMALS: normal respiratory effort and clear to auscultation bilaterally AUSCULTATION: clear to auscultation bilaterally Cardio: COMMON NORMALS: regular rate and regular rhythm RATE: regular rate RHYTHM: regular rhythm GI: AUSCULTATION: Yes normoactive bowel sounds : COMMON NORMALS: Yes no CVA tenderness BLADDER/KIDNEY EXAM: Yes no CVA tenderness Back/Pelvis: COMMON NORMALS: no CVA tenderness Extremity: COMMON NORMALS: normal to inspection Neuro: SENSORIUM/ORIENTATION: Yes alert Psych: COMMON NORMALS: speech normal ATTITUDE: Yes Withdrawn affect present ACTIVITY/MOTOR BEHAVIOR: Yes Avoids eye contact (attititude/behavior) SPEECH: Yes normal speech MOOD & AFFECT: Yes euthymic mood THOUGHT CONTENT: Yes Suicidality present and No Homicidality present INSIGHT: Fair insight present (Psych) JUDGEMENT: Fair judgement present (Psych) Course ED course: 0, reviewed patient of Dr. Loco, psychiatrist, he agreed for patient to be admitted to the stress unit for suicidal ideation. He did request a 96-hour hold on the patient due to the threat to himself. Vital Signs: Vital signs: Vital Signs Temperature 98.2 F 10/07/21 21:55 Pulse Rate 82 10/07/21 21:55 Respiratory Rate 18 10/07/21 21:55 Blood Pressure 160/79 10/07/21 21:55 Pulse Oximetry 98 10/07/21 21:55 MDM - General Adult Medical Decision Making Patient comes in tonight reporting that he is increased stress and feels suicidal. Patient reports that he had walked into traffic twice hoping to get hit and killed today. Patient did admit to being suicidal. Patient has a history of homelessness. Patient also has a history of diabetes mellitus type 2, and hypertension. Patient is depressed and withdrawn. Patient has poor eye contact with provider during the exam. Skin is warm and dry. Vitals are normal. Differential diagnosis includes but not limited to bipolar disorder, adjustment disorder, suicidal ideation, malingering. Laboratory values were unremarkable. She had no drugs or alcohol on board. Reviewed exam with Dr. Loco, psychiatrist, he agreed for admission to stress unit under 96-hour hold. Dr. Jaime was consulted for admission to the hospital. Lab Data : 10/07/21 22:33 10/07/21 22:33 Laboratory Results WBC 6.0 10^3/uL (4.0-10.0) 10/07/21 22:33 RBC 4.75 10^6/uL (4.1-5.3) 10/07/21: Hgb 11.3 g/dL (11.7-16.6) L 10/07/21: Hct 36.1 % (42.0-52.0) L 10/07/21: MCV 76.0 fl (80-94) L 10/07/21: MCH 23.8 pg (28.0-34.0) L 10/07/21: MCHC 31.3 g/dL (30.0-36.0) 10/07/21: RDW 15.1 % (12.1-15.1) 10/07/21: Plt Count 231 10^3/cmm (130-400) 10/07/21: MPV 11.2 fL (7.4-10.4) H 10/07/21: Neut % (Auto) 59.3 % 10/07/21: Lymph % (Auto) 23.6 % 10/07/21: [place] % (Auto) 13.8 % 10/07/21: Eos % (Auto) 2.3 % 10/07/21: Baso % (Auto) 0.7 % 10/07/21: Neut # (Auto) 3.57 10^3/uL (1.8-7.7) 10/07/21: Lymph # (Auto) 1.4 10^3/uL (0.8-4.8) 10/07/21: [place] # (Auto) 0.8 10^3/uL (0.2-0.9) 10/07/21: Eos # (Auto) 0.1 10^3/uL (0.0-0.8) 10/07/21: Baso # (Auto) 0.0 10^3/uL (0.0-0.1) 10/07/21: Nucleated RBC % (auto) 0 % 10/07/21: Nucleated RBCs # 0.0 /100WBC 10/07/21 22: Sodium 138 mmol/L (136-145) 10/07/21: Potassium 3.6 mmol/L (3.5-5.1) 04/19/22 22:33 Chloride 103 mmol/L (98-107) 10/07/21 22:33 Carbon Dioxide 23 mmol/L (22-29) 10/07/21 22:33 Anion Gap 15.6 (5-19) 10/07/21 22:33 BUN 10 mg/dL (6-20) 10/07/21 22:33 Creatinine 1.1 mg/dL (0.7-1.2) 10/07/21 22:33 GFR Calculation 72.7 mL/min (90-130) L 10/07/21 22:33 Glucose 99 mg/dL (65-115) 10/07/21 22: Calculated Osmolality 285 mOsm/kg (285-295) 10/07/21: Calcium 9.4 mg/dL (8.5-10.5) 10/07/21: Total Bilirubin 0.2 mg/dL (0.15-1.2) 10/07/21 22: AST 12 U/L (0-40) 10/07/21: ALT 8 U/L (0-41) 10/07/21 22: Alkaline Phosphatase 90 IU/L (40-130) 10/07/21 22:33 Total Protein 7.1 g/dL (6.6-8.7) 10/07/21 22: Albumin 4.5 g/dL (3.5-5.2) 10/07/21 22: Globulin 2.6 g/dL (1.3-4.6) 10/07/21 22: TSH 1.04 uIU/mL (0.27-4.20) 10/07/21 22:33 Urine Color Yellow (Yellow) 10/07/21 22:36 Urine Appearance Clear (CLEAR) 10/07/21 22:36 Urine pH 5 (5-7) 10/07/21 22:36 Ur Specific [place] 1.020 (1.005-1.030) 10/07/21 22:36 Urine Protein Neg (Negative) 10/07/21 22:36 Urine Glucose (UA) Norm (Normal) 10/07/21 22:36 Urine Ketones 1+ (Negative) H 10/07/21 22:36 Urine Blood Neg (Negative) 10/07/21 22:36 Urine Nitrate Negative (Negative) 10/07/21 22:36 Urine Bilirubin 1+ (Negative) H 10/07/21 22:36 Urine Urobilinogen 4 mg/dL (Negative) H 10/07/21 22:36 Ur Leukocyte Esterase Negative (Negative) 10/07/21 22:36 Salicylates 1.6 mg/dL (3-10) L 10/07/21 22:33 Urine Opiates Screen Negative ng/mL (Negative) 10/07/21 22:36 Acetaminophen < 5.0 ug/mL (10-30) L 10/07/21 22:33 Ur Barbiturates Screen Positive ng/mL (Negative) H 10/07/21 22:36 Ur Phencyclidine Scrn Negative ng/mL (Negative) 10/07/21 22:36 Ur Amphetamines Screen Negative ng/mL (Negative) 10/07/21 22:36 U Benzodiazepines Scrn Negative ng/mL (Negative) 10/07/21 22:36 Urine Cocaine Screen Negative ng/mL (Negative) 10/07/21 22:36 U Marijuana (THC) Screen Negative ng/mL (Negative) 10/07/21 22:36 Ethyl Alcohol < 10 mg/dL (0-10) 10/07/21 22:33 Discharge Plan Discharge Patient Disposition: Admitted As Inpatient Clinical Impression: Suicidal ideation Condition: Stable Coding Level of Care Code ED Plant Tech for Marcelino Fwmacy Exam Comprehensive
--- NOTE | 2021-10-07 22:25 | PC.NURSE ---
Patient stated he would like to kill himself. Patient stated he stepped in front of two cars on [facility] trying to end his life.
[2021-10-07 22:38] LABS: Basophils % 0.7 %; Eosinophils # 0.1 10^3/uL (0.0-0.8); Eosinophils % 2.3 %; Hematocrit 36.1 % (42.0-52.0); Hemoglobin 11.3 g/dL (11.7-16.6); Lymphocytes # 1.4 10^3/uL (0.8-4.8); Lymphocytes % 23.6 %; Mean Corpuscular HGB Conc 31.3 g/dL (30.0-36.0); Mean Corpuscular Hemoglobin 23.8 pg (28.0-34.0); Mean Platelet Volume 11.2 fL (7.4-10.4); Monocytes # 0.8 10^3/uL (0.2-0.9); Monocytes % 13.8 %; Neutrophils # 3.57 10^3/uL (1.8-7.7); Neutrophils % 59.3 %; Nucleated Red Blood Cells % 0 %; Platelet Count 231 10^3/cmm (130-400); Red Blood Count 4.75 10^6/uL (4.1-5.3); Red Cell Distribution Width 15.1 % (12.1-15.1)
[2021-10-07 22:41] LABS: Add Urine Microscopic? NO; Charge for UA Resulting for Rev
[2021-10-07 22:52] LABS: Amphetamines Screen Urine Negative (Negative); Barbiturates Screen Urine Positive (Negative); Benzodiazepines Screen Urine Negative (Negative); Cocaine Screen Urine Negative (Negative); Opiate Screen Urine Negative (Negative); PCP Screen Urine Negative (Negative); THC Screen Urine Negative (Negative)
[2021-10-07 23:17] LABS: Alanine Aminotransferase 8 U/L (0-41); Albumin Level 4.5 g/dL (3.5-5.2); Alkaline Phosphatase 90 IU/L (40-130); Anion Gap 15.6 (5-19); Aspartate Amino Transferase 12 U/L (0-40); Blood Urea Nitrogen 10 mg/dL (6-20); Calcium 9.4 mg/dL (8.5-10.5); Carbon Dioxide 23 mmol/L (22-29); Chloride 103 mmol/L (98-107); Globulin 2.6 g/dL (1.3-4.6); Glomerular Filtration Rate 72.7 mL/min (90-130); Glucose 99 mg/dL (65-115); Osmolality Calculated 285 mOsm/kg (285-295); Potassium 3.6 mmol/L (3.5-5.1); Salicylate 1.6 mg/dL (3-10); Sodium 138 mmol/L (136-145); Thyroid Stimulating Hormone 1.04 uIU/mL (0.27-4.20); Total Bilirubin 0.2 mg/dL (0.15-1.2); Total Protein 7.1 g/dL (6.6-8.7)
[2021-10-07 23:23] LABS: Acetaminophen < 5.0 ug/mL (10-30); Alcohol Level < 10 mg/dL (0-10)
[2021-10-07 23:41] LABS: Bilirubin Urine 1+ (Negative); Blood Urine Neg (Negative); Glucose Urine UA Norm (Normal); Ketones Urine 1+ (Negative); Leukocyte Esterase Urine Negative (Negative); Nitrate Urine Negative (Negative); Protein Urine Neg (Negative); Urine Appearance Clear (CLEAR); Urine Color Yellow (Yellow); Urobilinogen Urine 4 mg/dL (Negative); pH Urine 5 (5-7)
[2021-10-08 02:16] VITALS: BP 141/60; PULSE 88; RESP 16; O2SAT 98
[2021-10-08 02:21] VITALS: BP 108/72; PULSE 100; RESP 16; TEMP 36.7; O2SAT 97
[2021-10-08] MEDS: acetaminophen 325 mg Tablet 650 MG PO ×2 (02:45→09:06)
[2021-10-08 04:30] VITALS: RESP 16; O2SAT 99
[2021-10-08 06:00] VITALS: BP 123/77; PULSE 78; RESP 19; TEMP 36.8; O2SAT 100
--- NOTE | 2021-10-08 06:06 | PC.ADMIT ---
[facility] Admission Note: The patient,Alonso June,46 y/o, was given written information regarding hospital policies, unit procedures and contact persons. Patient's smoking status: former smoker. Vital Signs - 8 hr 10/08/21 02:16 10/08/21 02:21 Temperature 98.1 F Pulse Rate 88 100 Respiratory Rate 16 16 Blood Pressure 141/60 108/72 Pulse Oximetry 98 97 Patient states he came in tonight due to [facility]. States he began feeling that way today due to getting in an argument with his and leaving his house. Patient states he has his , and 3 kids as a support system. Patient states he had been staying in a intermediate and homeless but also states his and him have a house. Patient states he has been off his psych meds for approx 3 years and states he has a hx of Bipolar disorder. He states he has been losing weight recently and states he lost 41 lbs in the last two weeks. He endorses alcohol use stating he drinks 4 - 24 packs a day and used to smoke 6lbs of marijuana per day but quit a year ago and states he currently smokes 3pks of cigarettes a day. UDS was positive for barbituates, and negative for all other substances, BAL was negative. Patient has had many inconsistencies throughout interview. He appears to walk with steady gait and did not come in with any assistive devices, but states he normally utilizes a walker at home. Patient also states he uses O2 at night, checked many times and O2 has been 99% on RA. Dkies ENVAEH.
[2021-10-08 06:30] LABS: Glucose Point of Care 80 mg/dL (70-110)
[2021-10-08] MEDS: nicotine 2 mg Gum BUCCAL (06:57)
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
[2021-10-08] MEDS: ARIPiprazole 10 mg Tablet 5 MG PO (09:53)
[2021-10-08] MEDS: escitalopram 10 mg Tablet PO (09:53)
--- NOTE | 2021-10-08 10:13 | PC.NURSE ---
PT REPORTS THAT HE DID NOT GET MUCH SLEEP IN THE ER AND IS TIRED TODAY. TEARFUL WHILE TALKING. DENIES CURRENT SI/HI OR AVH. ENDORSES DEPRESSION AND ANXIETY. INTERACTING WELL WITH OTHER PTS. REPORTS THAT HE NEEDS TO GET BACK ON HIS MEDICATIONS AND PLANS TO TALK WITH THE DR ABOUT THESE MEDS.
[2021-10-08 11:10] LABS: Glucose Point of Care 125 mg/dL (70-110)
[2021-10-08] MEDS: loperamide 2 mg Capsule PO ×2 (11:21→18:35)
--- NOTE | 2021-10-08 11:21 | PC.NURSE ---
PRN LOPERAMIDE 2 MG GIVEN PO PER PT C/O LOOSE STOOL
[2021-10-08 14:00] VITALS: BP 142/88; PULSE 71; RESP 16; TEMP 37; O2SAT 100
--- NOTE | 2021-10-08 14:51 | PC.SOCIAL ---
Patient attended and participated in group.
[2021-10-08] MEDS: clopidogrel 75 mg Tablet PO (15:20)
[2021-10-08 16:24] LABS: Glucose Point of Care 97 mg/dL (70-110)
[2021-10-08 20:34] VITALS: BP 124/71; PULSE 68; RESP 18; TEMP 36.8; O2SAT 98
[2021-10-08] MEDS: trazodone 50 mg Tablet PO (21:42)
[2021-10-08 22:01] LABS: Glucose Point of Care 126 mg/dL (70-110)
--- NOTE | 2021-10-08 23:42 | PC.NURSE ---
2141-requested trazodone for sleep. 2241-resting in bed at this time.
[2021-10-09] VITALS (58 sets, daily range): BP systolic 106–185; BP diastolic 52–95; PULSE 59–145; RESP 9–26; TEMP 36.8–36.9; O2SAT 91–100
[2021-10-09] MEDS: acetaminophen 325 mg Tablet 650 MG PO ×3 (05:43→23:26)
[2021-10-09] MEDS: ARIPiprazole 10 mg Tablet 5 MG PO (08:06)
[2021-10-09] MEDS: escitalopram 10 mg Tablet PO (08:07)
[2021-10-09] MEDS: clopidogrel 75 mg Tablet PO (08:07)
[2021-10-09] MEDS: nicotine 21 mg Patch 1 PATCH TRANSDERMA (08:42)
[2021-10-09 09:06] LABS: Glucose Point of Care 146 mg/dL (70-110)
[2021-10-09] MEDS: insulin lispro 100 unit/1 mL SUBCUT (09:08)
--- NOTE | 2021-10-09 09:33 | PC.NURSE ---
Denies SI/HI and AVH at this time. Reports he feels the medications are working. Informed him he had only been here one day. States he thought he had been here 2 days. Currently denies pain.
[2021-10-09 11:41] LABS: Glucose Point of Care 84 mg/dL (70-110)
[2021-10-09] MEDS: ondansetron 4 MG Tablet PO (15:45)
--- NOTE | 2021-10-09 15:46 | PC.NURSE ---
PRN ZOFRAN 4 MG GIVEN PO PER PT C/O STATED NAUSEA/STOMACH UPSET
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
[2021-10-09 16:51] LABS: Glucose Point of Care 95 mg/dL (70-110)
[2021-10-09 18:39] LABS: Glucose Point of Care 129 mg/dL (70-110)
--- NOTE | 2021-10-09 18:45 | CTR_ITS ---
PROCEDURE INFORMATION: Exam: CT Head Without Contrast Exam date and time: 10/09/2021 6:46 PM Age: 46 years old Clinical indication: Injury or trauma; Fall; Blunt trauma (contusions or hematomas) TECHNIQUE: Imaging protocol: Computed tomography of the head without contrast. Radiation optimization: All CT scans at this facility use at least one of these dose optimization techniques: automated exposure control; mA and/or kV adjustment per patient size (includes targeted exams where dose is matched to clinical indication); or iterative reconstruction. COMPARISON: CT head wo con* [id number] 09/30/2021 4:50 PM RADIATION DOSE METRICS: Total DLP (mGy-cm): 818.73 FINDINGS: Brain: Normal. No hemorrhage. Unremarkable white matter. No mass effect. Cerebral ventricles: No ventriculomegaly. Paranasal sinuses: Visualized sinuses are unremarkable. No fluid levels. Mastoid air cells: Visualized mastoid air cells are well aerated. Bones/joints: Old left zygomatic arch fracture. No acute fracture identified. Soft tissues: Unremarkable. CT/CT head wo con* [id number] IMPRESSION: No acute intracranial abnormality.
--- NOTE | 2021-10-09 18:46 | ECG_ITS ---
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 Measurements Intervals [place] Rate: 129 P: 64 WI: 124 QRS: 53 QRSD: 86 T: 21 QT: 273 QTc: 401 Interpretive Statements SINUS TACHYCARDIA MODERATE ST DEPRESSION [0.05+ mV ST DEPRESSION] Compared to ECG 10/07/2021 17:02:25 ST (T wave) deviation now present Sinus rhythm no longer present Electronically Signed On 10-10-2021 6:08:17 CDT by Regine Bar M.D. [id number]
--- NOTE | 2021-10-09 18:52 | ECG_ITS ---
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 Measurements Intervals [place] Rate: 85 P: 66 CT: 145 QRS: 66 QRSD: 88 T: 50 QT: 339 QTc: 404 Interpretive Statements SINUS RHYTHM VOLTAGE CRITERIA FOR LVH [MEETS CRITERIA IN ONE OF: R(aVL), S(V1), R(V5), R(V5/V6)+S(V1)] Compared to ECG 10/09/2021 18:31:37 Left ventricular hypertrophy now present Sinus tachycardia no longer present ST (T wave) deviation no longer present Electronically Signed On 10-10-2021 6:07:43 CDT by Regine Bar M.D. [id number]
--- NOTE | 2021-10-09 18:58 | USCV_ITS ---
Alonso June Age: 46 Gender: M : 1975 Exam Date: 10/09/2021 19:29 Ordering Phys: Hector Rosado MD Technologist: [email or web address] Exam Location: [facility] [place] Indication: Chest Pain BP: 168 / 84 HR: 90 Rhythm: Sinus Technical Quality: Adequate MEASUREMENTS (Male / Female) Normal Values 2D ECHO LV Diastolic Diameter PLAX 4.4 cm 4.2 - 5.9 / 3.9 - 5.3 cm LV Systolic Diameter PLAX 3.3 cm IVS Diastolic Thickness 0.7 cm 0.6 - 1.0 / 0.6 - 0.9 cm IVS Systolic Thickness 1.2 cm LVPW Diastolic Thickness 1.3 cm 0.6 - 1.0 / 0.6 - 0.9 cm LVPW Systolic Thickness 1.6 cm LV Ejection Fraction 2D Teich 51.3 % LV Ejection Fraction MOD 2C 23.1 % LV Ejection Fraction 2C AL 22.5 % LA Diameter 2.7 cm LA Width 3.5 cm LA Height 3.4 cm RA Width 4.2 cm RA Height 5.1 cm M-MODE Aortic Annulus Diameter 2.7 cm LA Ao Ratio MM 1.3 DOPPLER AV Peak Velocity 158.8 cm/s LVOT Peak Velocity 71.0 cm/s MV Peak Velocity 103.0 cm/s MV Area PHT 3.3 cm squared Mitral E to A Ratio 0.8 MV E' Velocity 43.0 cm/s Mitral E to MV E' Ratio 7.3 Mitral E to LV E' Lateral Ratio 7.8 Mitral E to LV E' Septal Ratio 6.7 TR Peak Velocity 75.5 cm/s TR Peak Gradient 2.3 mmHg TR Mean Velocity 50.7 cm/s TR Mean Gradient 1.1 mmHg TR Velocity Time Integral 15.4 cm Right Atrial Pressure 10.0 mmHg Pulmonary Artery Systolic Pressu 12.3 mmHg RV Acceleration Time 0.2 s RV Ejection Time 0.3 s RV AcT/ET 0.6 FINDINGS Left Ventricle Normal left ventricular size and systolic function, EF 65 %. Mild left ventricular hypertrophy. No regional wall motion abnormalities. Grade I/IV diastolic dysfunction (abnormal relaxation filling pattern), normal to mildly elevated filling pressures. Right Ventricle The right ventricle is normal in size and function. Right Atrium The right atrium is normal in size. Left Atrium The left atrium is normal in size. Mitral Valve Thickened mitral valve. Trace mitral valve regurgitation. Aortic Valve Mild aortic valve regurgitation. Tricuspid Valve Trace tricuspid valve regurgitation. Pulmonic Valve Pulmonic valve not well visualized. Pericardium Normal pericardium without effusion. Aorta Normal ascending aorta dimension. CONCLUSIONS Normal left ventricular size and systolic function, EF 65 %. Mild left ventricular hypertrophy. No regional wall motion abnormalities. Grade I/IV diastolic dysfunction (abnormal relaxation filling pattern), normal to mildly elevated filling pressures. Thickened mitral valve. Trace mitral valve regurgitation. Mild aortic valve regurgitation. Trace tricuspid valve regurgitation. Estimated pulmonary artery peak systolic pressure is within normal limits. There are no intracardiac masses. There is no pericardial effusion. Compared to the study from 09/04/2021, the mitral regurgitation appears to be less severe. No other significant change Dr Anatoliy Jean Baptiste MD [facility] (Electronically Signed) Final Date: 10 October 2021 08:20 S
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
--- NOTE | 2021-10-09 19:05 | PC.NURSE ---
AT 1822 STAFF REPORT THAT PATIENT WAS SITTING IN THE HALLWAY TO THE LEFT OF NURSING STATION. STAFF OUT TO ASSESS AND OBSERVED PATIENT SITTING ON BOTTOM FACING THE OPPOSITE GODFREY. AROUSED TO VOICE. CONTINUOUS IMPROVEMENT DIRECTOR TO OBTAIN VITAL SIGNS. VITALS FOLLOWS B/P 240/126 HR 160 TEMP 98.9 RR 18 SPO2 95%, PATIENT STATES HE GOT DIZZY AND WENT TO THE GROUND. APICAL PULSE OBTAINED AND HR WAS 144. DR. CAMARILLO NOTIFIED OF EVENT AND VITAL SIGNS. STAFF CALLED RAPID RESPONSE. RAPID RESPONSE TEAM CALLED. NURSE UPDATED. BLOOD GLUCOSE 129. PATIENT CONTINUES TO RESPOND TO VOICE. IV STARTED. EKG COMPLETED. SEE RAPID RESPONSE SHEET AND NOTES FOR DETAILS. LABS DRAWN. ORDERS RECEIVED TO TRANSFER TO ICU BED 7. LEFT NPU AT 1840 VIA STRETCHER AND GOING TO CT. REPORT CALLED TO ICU NURSE AT 1850.
[2021-10-09 19:08] LABS: Basophils % 0.6 %; Eosinophils # 0.3 10^3/uL (0.0-0.8); Eosinophils % 4.2 %; Hematocrit 36.6 % (42.0-52.0); Hemoglobin 11.8 g/dL (11.7-16.6); Lymphocytes # 2.4 10^3/uL (0.8-4.8); Mean Corpuscular HGB Conc 32.2 g/dL (30.0-36.0); Mean Corpuscular Hemoglobin 24.2 pg (28.0-34.0); Mean Corpuscular Volume 75.2 fl (80-94); Mean Platelet Volume 11.8 fL (7.4-10.4); Monocytes # 0.8 10^3/uL (0.2-0.9); Monocytes % 12.7 %; Neutrophils # 2.82 10^3/uL (1.8-7.7); Neutrophils % 44.3 %; Nucleated Red Blood Cells % 0 %; Platelet Count 262 10^3/cmm (130-400); Red Blood Count 4.87 10^6/uL (4.1-5.3); Red Cell Distribution Width 15.3 % (12.1-15.1); White Blood Count 6.4 10^3/uL (4.0-10.0)
[2021-10-09 19:09] LABS: Erythrocyte Sedimentation Rate 10 mm/hr (0-10)
[2021-10-09 19:20] LABS: INR 0.94 (0.8-1.2)
[2021-10-09 19:23] LABS: Troponin(5th) Baseline 10 ng/L (0-15)
[2021-10-09 19:24] LABS: Lactic Sepsis W/Reflex 2.2 mmol/L (0.5-2.2)
[2021-10-09] MEDS: aspirin 325 mg Tablet PO (19:26)
[2021-10-09] MEDS: nitroglycerin 0.4 mg sublingual Tablet SUBLINGUAL ×3 (19:26→21:23)
[2021-10-09] MEDS: enoxaparin 40 mg/0.4 mL Syringe SUBCUT (19:26)
[2021-10-09 19:31] LABS: NT Pro B Type Natriuretic Pept 104 pg/mL (0-125); Procalcitonin 0.05 ng/mL (0-0.5); Thyroid Stimulating Hormone 0.49 uIU/mL (0.27-4.20)
[2021-10-09] MEDS: famotidine 20 mg/2 mL INJ IVP (19:37)
[2021-10-09 19:43] LABS: Alanine Aminotransferase 9 U/L (0-41); Albumin Level 4.4 g/dL (3.5-5.2); Alkaline Phosphatase 88 IU/L (40-130); Aspartate Amino Transferase 10 U/L (0-40); Blood Urea Nitrogen 14 mg/dL (6-20); C Reactive Protein 6.4 mg/L (0.0-4.9); Calcium 8.5 mg/dL (8.5-10.5); Carbon Dioxide 22 mmol/L (22-29); Chloride 103 mmol/L (98-107); Globulin 3.3 g/dL (1.3-4.6); Glomerular Filtration Rate 91.7 mL/min (90-130); Glucose 125 mg/dL (65-115); Osmolality Calculated 288 mOsm/kg (285-295); Phosphorus 2.4 mg/dL (2.5-4.5); Sodium 138 mmol/L (136-145); Total Bilirubin 0.2 mg/dL (0.15-1.2); Total Protein 7.7 g/dL (6.6-8.7)
[2021-10-09] MEDS: atorvastatin 40 mg Tablet PO (20:00)
[2021-10-09] MEDS: labetalol 5 mg/mL SDV 20mL 10 MG IVP (20:00)
[2021-10-09] MEDS: carvedilol 3.125 mg Tablet PO (20:00)
[2021-10-09] MEDS: dextrose 5%-sod chloride 0.9% 1,000 ML 125 ML IV (20:00)
[2021-10-09 20:45] LABS: Add Urine Microscopic? NO; Charge for UA Resulting for Rev
--- NOTE | 2021-10-09 20:52 | ECG_ITS ---
[facility] Test Date: 2021-10-09 Pat Name: Alonso June Department: Room: [facility]07 Gender: Male Meter Reading Clerk: : 1975 Requested By: Hector Rosado Order Number: [id number] Janel MD: Anatoliy Jean Baptiste M.D. Measurements Intervals [place] Rate: 76 P: 62 NJ: 171 QRS: 60 QRSD: 91 T: 50 QT: 364 QTc: 411 Interpretive Statements SINUS RHYTHM LEFT VENTRICULAR HYPERTROPHY AND ST-T CHANGE [VOLTAGE CRITERIA PLUS ST/T ABNORMALITY] Compared to ECG 10/09/2021 19:20:40 ST (T wave) deviation now present Electronically Signed On 10-10-2021 23:30:42 CDT by Anatoliy Jean Baptiste M.D. [id number]
[2021-10-09 20:53] LABS: Reflex Lactate Order REFLEX LACTIC ORDERD
[2021-10-09 20:54] LABS: Bilirubin Urine Neg (Negative); Blood Urine Neg (Negative); Glucose Urine UA Norm (Normal); Ketones Urine Negative (Negative); Leukocyte Esterase Urine Negative (Negative); Nitrate Urine Negative (Negative); Protein Urine Neg (Negative); Urine Appearance Clear (CLEAR); Urine Color Colorless (Yellow); Urobilinogen Urine Norm (Negative); pH Urine 7 (5-7)
[2021-10-09 21:00] LABS: ABG PCO2 39.6 mmHg (35-45); Arterial Blood Gas Hematocrit 33.4 % (42-52); Base Excess ABG -0.5 mmol/L (-2.0-2.0); Blood Gas Allen Test Pos; Blood Gas Operator Identificat JB; Blood Gas Sample Site Radial, right; Blood Gas Sample Type Arterial; HCO3 ABG 24.3 mmol/L (22-26); Oxygen Device NC
[2021-10-09 22:06] LABS: Lactic Acid level (Lactate) 1.1 mmol/L (0.5-2.2)
[2021-10-09 23:17] LABS: Glucose Point of Care 102 mg/dL (70-110)
[2021-10-09] MEDS: trazodone 50 mg Tablet PO (23:26)
[2021-10-10] VITALS (54 sets, daily range): BP systolic 97–161; BP diastolic 44–84; PULSE 60–87; RESP 7–26; TEMP 36.8–37; O2SAT 93–100
--- NOTE | 2021-10-10 00:52 | ECG_ITS ---
[facility] Test Date: 2021-10-10 Pat Name: Alonso June Department: Room: [facility]07 Gender: Male Prepper: : 1975 Requested By: Hector Rosado Order Number: [id number] Janel MD: Anatoliy Jean Baptiste M.D. Measurements Intervals [place] Rate: 67 P: 66 CO: 175 QRS: 69 QRSD: 89 T: 53 QT: 385 QTc: 409 Interpretive Statements SINUS RHYTHM MODERATE VOLTAGE CRITERIA FOR LVH, CONSIDER NORMAL VARIANT [MEETS CRITERIA IN ONE OF: R(aVL), S(V1), R(V5), R(V5/V6)+S(V1)] Compared to ECG 10/09/2021 21:40:50 ST (T wave) deviation no longer present Electronically Signed On 10-10-2021 23:30:46 CDT by Anatoliy Jean Baptiste M.D. [id number]
[2021-10-10 01:35] LABS: Troponin 5 6HR 11.74 ng/L (0-15)
[2021-10-10 01:52] LABS: Troponin 5 6HR Delta 1.74 ng/L (0-12)
[2021-10-10] MEDS: acetaminophen 325 mg Tablet 650 MG PO (04:15)
[2021-10-10] MEDS: dextrose 5%-sod chloride 0.9% 1,000 ML 125 ML IV (06:24)
[2021-10-10] MEDS: famotidine 20 mg/2 mL INJ IVP (06:27)
[2021-10-10 07:35] LABS: Glucose Point of Care 120 mg/dL (70-110)
[2021-10-10] MEDS: carvedilol 3.125 mg Tablet PO ×2 (09:20→20:34)
[2021-10-10] MEDS: escitalopram 10 mg Tablet PO (09:20)
[2021-10-10] MEDS: aspirin 81 mg EC Tablet PO (09:20)
[2021-10-10] MEDS: clopidogrel 75 mg Tablet PO (09:20)
[2021-10-10] MEDS: ARIPiprazole 10 mg Tablet 5 MG PO (09:20)
--- NOTE | 2021-10-10 09:42 | PC.NURSE ---
IV removed at 4220
--- NOTE | 2021-10-10 10:04 | PC.NURSE ---
Patient transferred to NPU at 1000
--- NOTE | 2021-10-10 10:22 | P.PN_ITS ---
Subjective Subjective: Patient was seen this morning, upon immediately entering the room he is playing on his phone, using both his upper extremities, he is moving his lower extremities, no facial droop, no slurring of his words, he denies any chest pain overnight, no lightheadedness, dizziness, nausea, vomiting, no wea kness Vitals/I&O/Wt Last Vital Signs Temp 98.2 F 10/10/21 07:49 Pulse 70 10/10/21 06:00 Resp 11 L 10/10/21 06:00 BP 105/72 10/10/21 07:00 Pulse Ox 100 10/10/21 06:00 10/09/21 10/10/21 10/10/21 22:59 06:59 14:59 Intake Total 1000 / 1000 Output Total 400 / 400 650 / 650 Balance 600 / 600 -650 / -650 Physical Exam Const: COMMON NORMALS: no acute distress and patient oriented x3 Resp: COMMON NORMALS: normal respiratory effort, No retractions, No use of accessory muscles and clear to auscultation bilaterally AUSCULTATION: clear to auscultation bilaterally Cardio: COMMON NORMALS: regular rate, regular rhythm, S1 normal heart sound present and S2 normal heart sound present RATE: regular rate RHYTHM: regular rhythm HEART SOUNDS: S1 normal heart sound present and S2 normal heart sound present GI: COMMON NORMALS: Normal to inspection, nondistended, normoactive bowel soun ds present, Soft to palpation, non-tender and No hepatosplenomegaly present PALPATION: Yes Soft to palpation and Yes No hepatosplenomegaly present Extremity: COMMON NORMALS: no pedal edema Neuro: COMMON NORMALS: patient oriented x3 Psych: COMMON NORMALS: mental status grossly normal Urinary Catheter Management: Gutierrez: Cath Placed During This Visit: yes Reason for Continuing Indwelling Catheter: Acute Urinary Retention or Obst ruction Urinary Catheter Date of Insertion: 10/10/21 Urinary Catheter Time of Insertion: 03:58 Data : 10/09/21 18:36 10/09/21 18:36 Micro: Microbiology 10/09/21 19:55 Blood Culture - Preliminary Blood SPECIMEN COLLECTED 10/09/21 19:53 Blood Culture - Preliminary Blood SPECIMEN COLLECTED A&P Assessment and plan (1) Chest pain: Status: Acute Plan Chest pain -History of CAD, stenting -history of multiple hospital admissions for chest pain, CAD, history of multiple stents, recently had a hospitalization at [facility] on 08/31/2009 for chest pain, cath report from August 12, 2021 showed left main, left anterior descending, diagonal and right posterior descending artery patent.? Stents in LAD, diagonal and right PDA were patent.? IFR was performed to the left main, distal LAD, left circumflex all found to be hemodynamically insignificant.? Does have small vessel CAD which is not amenable to PCI or CABG this should be treated medically. ? In addition he had another angiogram on 07/12/2021 left heart cath no new findings. -Has had 3 ER visits for chest pain -Last echocardiogram EF 63%, mild LVH Plan -Aspirin, Plavix, statin, Coreg -Blood pressure in better control -Nitro as needed for chest pain -Serial EKGs mild ST depressions which have resolved serial troponins no significant delta troponin monitor for chest pain -Cardiac echocardiogram Normal left ventricular size and systolic function, EF 65 %. ?Mild left ventricular hypertrophy. No regional wall motion ?abnormalities. Grade I/IV diastolic dysfunction (abnormal ?relaxation filling pattern), normal to mildly elevated filling ?pressures. ?Thickened mitral valve. Trace mitral valve regurgitation. ?Mild aortic valve regurgitation. ?Trace tricuspid valve regurgitation. ?Estimated pulmonary artery peak systolic pressure is within ?normal limits. ?There are no intracardiac masses. ?There is no pericardial effusion. ?Compared to the study from 09/04/2021, the mitral regurgitation ?appears to be less severe.? No other significant change -Insulin sliding scale -Full code -Lovenox for DVT prophylaxis History of left-sided deficits, history of tPA for acute CVA, thought to be more conversion disorder -Upon examination this morning he is playing on his phone using his left upper extremity, moving his left lower extremity, no facial droop no slurring of his words -Head CT within normal limits --CTA of the head and neck no large vessel stenosis or occlusion 09/30/2021 -MRI of the brain tiny lacunar infarct or prominent perivascular space left cerebral peduncle, no evidence of restricted diffusion to suggest acute ischemia -During his hospitalization at [facility] he was also noted to have left sided weakness, had a CT of the head which was negative, also had a EEG which was within normal limits, however did have an EEG on 07/01/2021 which showed abnormal awake and sleep EEG, generalized likely indicating underlying seizure disorder.? Also had EMGs nerve conduction studies of bilateral lower extremities which showed no electrodiagnostic evidence of median/ulnar neuropathy plexopathy or radiculopathy As symptoms have resolved, will move to neuropsychiatric unit Attestations Medical Necessity Statement*: Patient requires hospitalization for chest pain, likely psychosomatic, Coding Level of Care Code Acute Bung Driver for Marcelino Stephen Diagnoses Chest pain R07.9
[2021-10-10 11:49] LABS: Glucose Point of Care 136 mg/dL (70-110)
--- NOTE | 2021-10-10 13:01 | PC.NURSE ---
Prn note Patient arrived from ICU via wheelchair at 1000. He is alert and oriented in all aspects. He denies pain. Hr is regular in rhythm. Lungs clear with breathing even and non labored. Bowel sounds active in all quads. He does c/o pain with urination r/t recent catheter insertion and removal. Skin is warm and dry. He denies Si/HI/AVH.
[2021-10-10] MEDS: nicotine 21 mg Patch 1 PATCH TRANSDERMA (13:45)
[2021-10-10 16:54] LABS: Glucose Point of Care 101 mg/dL (70-110)
--- NOTE | 2021-10-10 17:25 | PC.NURSE ---
Prn note Patient was able to reach spouse who stated he was able to return home.
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
[2021-10-10] MEDS: simethicone 80 mg Chew PO (17:58)
[2021-10-10] MEDS: ranolazine (12HR) 500 mg Tablet PO (17:59)
[2021-10-10] MEDS: hyDROXYzine 25 mg Capsule 50 MG PO (20:34)
[2021-10-10] MEDS: atorvastatin 40 mg Tablet PO (20:34)
[2021-10-10 20:42] LABS: Glucose Point of Care 116 mg/dL (70-110)
[2021-10-11 05:43] VITALS: BP 133/61; PULSE 77; RESP 17; O2SAT 99
[2021-10-11 07:01] LABS: Glucose Point of Care 98 mg/dL (70-110)
[2021-10-11 07:34] VITALS: PULSE 70; RESP 18; O2SAT 99
[2021-10-11] MEDS: aspirin 81 mg EC Tablet PO (08:37)
[2021-10-11] MEDS: carvedilol 3.125 mg Tablet PO (08:37)
[2021-10-11] MEDS: ranolazine (12HR) 500 mg Tablet PO (08:37)
[2021-10-11] MEDS: clopidogrel 75 mg Tablet PO (08:37)
[2021-10-11] MEDS: ARIPiprazole 10 mg Tablet 5 MG PO (08:37)
[2021-10-11] MEDS: escitalopram 10 mg Tablet PO (08:38)
[2021-10-11] MEDS: acetaminophen 325 mg Tablet 650 MG PO (08:53)
[2021-10-11] MEDS: ondansetron 4 MG Tablet PO (09:34)
[2021-10-11] MEDS: nicotine 21 mg Patch 1 PATCH TRANSDERMA (10:25)
[2021-10-11 11:14] LABS: Glucose Point of Care 118 mg/dL (70-110)
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
[2021-10-11 12:13] VITALS: PULSE 70; RESP 18; O2SAT 99
[2021-10-11] MEDS: simethicone 80 mg Chew PO (13:23)
--- NOTE | 2021-10-11 14:05 | PM.PN ---
Subjective Subjective: Patient was seen this morning, walking n.p.o., he has his coffee cup held in his left hand, he is walking, no facial droop no slurring of his words, no focal neurologic deficits, no weakness, he has no chest pain complaints Vitals/I&O/Wt Last Vital Signs Temp 98.6 F 10/10/21 14:00 Pulse 70 10/11/21 12:13 Resp 18 10/11/21 12:13 BP 133/61 10/11/21 05:43 Pulse Ox 99 10/11/21 12:13 10/10/21 10/11/21 10/11/21 22:59 06:59 14:59 Output Total 650 / 1950 1300 / 1300 Balance -650 / -1950 -1300 / -1300 Physical Exam Const: COMMON NORMALS: no acute distress and patient oriented x3 Resp: COMMON NORMALS: normal respiratory effort, No retractions, No use of accessory muscles and clear to auscultation bilaterally AUSCULTATION: clear to auscultation bilaterally Cardio: COMMON NORMALS: regular rate, regular rhythm, S1 normal heart sound present and S2 normal heart sound present RATE: regular rate RHYTHM: regular rhythm HEART SOUNDS: S1 normal heart sound present and S2 normal heart sound present GI: COMMON NORMALS: Normal to inspection, nondistended, normoactive bowel sounds present, Soft to palpation and non-tender PALPATION: Yes Soft to palpation Extremity: COMMON NORMALS: no pedal edema Neuro: COMMON NORMALS: patient oriented x3 Psych: COMMON NORMALS: mental status grossly normal Urinary Catheter Management: Gutierrez: Cath Placed During This Visit: yes Reason for Continuing Indwelling Catheter: Acute Urinary Retention or Obstruction Urinary Catheter Date of Insertion: 10/10/21 Urinary Catheter Time of Insertion: 03:58 Data : 10/09/21 18:36 10/09/21 18:36 Micro: Microbiology 10/09/21 19:55 Blood Culture - Preliminary Blood NEGATIVE TO DATE 10/09/21 19:53 Blood Culture - Preliminary Blood NEGATIVE TO DATE A&P Assessment and plan (1) Chest pain: Status: Acute Plan Chest pain -History of CAD, stenting -history of multiple hospital admissions for chest pain, CAD, history of multiple stents, recently had a hospitalization at [facility] on 08/31/2009 for chest pain, cath report from August 12, 2021 showed left main, left anterior descending, diagonal and right posterior descending artery patent.? Stents in LAD, diagonal and right PDA were patent.? IFR was performed to the left main, distal LAD, left circumflex all found to be hemodynamically insignificant.? Does have small vessel CAD which is not amenable to PCI or CABG this should be treated medically. ? In addition he had another angiogram on 07/12/2021 left heart cath no new findings. -Has had 3 ER visits for chest pain -Last echocardiogram EF 63%, mild LVH Plan -Aspirin, Plavix, statin, Coreg -Blood pressure in better control -Nitro as needed for chest pain -Serial EKGs mild ST depressions which have resolved serial troponins no significant delta troponin monitor for chest pain -Cardiac echocardiogram Normal left ventricular size and systolic function, EF 65 %. ?Mild left ventricular hypertrophy. No regional wall motion ?abnormalities. Grade I/IV diastolic dysfunction (abnormal ?relaxation filling pattern), normal to mildly elevated filling ?pressures. ?Thickened mitral valve. Trace mitral valve regurgitation. ?Mild aortic valve regurgitation. ?Trace tricuspid valve regurgitation. ?Estimated pulmonary artery peak systolic pressure is within ?normal limits. ?There are no intracardiac masses. ?There is no pericardial effusion. ?Compared to the study from 09/04/2021, the mitral regurgitation ?appears to be less severe.? No other significant change -Insulin sliding scale -Full code History of left-sided deficits, history of tPA for acute CVA, thought to be more conversion disorder -Examined patient today, he is walking both extremities, no stumbling, no falling, using the left hand, drinking coffee from it, no slurring of his words, alert oriented x3 -Head CT within normal limits --CTA of the head and neck no large vessel stenosis or occlusion 09/30/2021 -MRI of the brain tiny lacunar infarct or prominent perivascular space left cerebral peduncle, no evidence of restricted diffusion to suggest acute ischemia -During his hospitalization at [facility] he was also noted to have left sided weakness, had a CT of the head which was negative, also had a EEG which was within normal limits, however did have an EEG on 07/01/2021 which showed abnormal awake and sleep EEG, generalized likely indicating underlying seizure disorder.? Also had EMGs nerve conduction studies of bilateral lower extremities which showed no electrodiagnostic evidence of median/ulnar neuropathy plexopathy or radiculopathy As symptoms have resolved, will move to neuropsychiatric unit Attestations Medical Necessity Statement*: Patient to be discharged today, follow-up with cardiology continue home medications Coding Level of Care Code Acute Sprinkler Installer for Marcelino Stephen Diagnoses Chest pain R07.9
== END 2021-10-11 13:24 | disposition home or self-care (01) | DRG 885 ==
LOC: ER 10-08 01:45 → NP 10-08 02:09 → ICU 10-09 18:52 → NP 10-10 09:59
PROVIDERS: Family Medicine; Admitting Provider Psychiatry & Neurology Psychiatry; Emergency Provider Nurse Practitioner Family; Visit Provider Psychiatry & Neurology Psychiatry
DX: F31.9 Bipolar disorder, unspecified (principal); R45.851 Suicidal ideations; Z59.01 Sheltered homelessness; E11.9 Type 2 diabetes mellitus without complications; I50.9 Heart failure, unspecified; I11.0 Hypertensive heart disease with heart failure; I25.10 Atherosclerotic heart disease of native coronary artery without angina pectoris; Z95.5 Presence of coronary angioplasty implant and graft; Z86.73 Personal history of transient ischemic attack (TIA), and cerebral infarction without residual deficits; E78.5 Hyperlipidemia, unspecified; Z87.891 Personal history of nicotine dependence; F43.20 Adjustment disorder, unspecified; Z76.5 Malingerer [conscious simulation]; J44.9 Chronic obstructive pulmonary disease, unspecified; R00.0 Tachycardia, unspecified; F45.41 Pain disorder exclusively related to psychological factors; R07.9 Chest pain, unspecified
CPT/HCPCS: 36415; 36416; 51702; 70450; 80053; 80306; 80307; 81003; 82803; 82962; 83605; 83735; 83880; 84100; 84145; 84443; 84484; 85025; 85610; 85651; 86140; 87040; 93005; 93306; 96372; 97150; 97165; 99285; J1650; J1815; J3490; Q0162

== ENCOUNTER 2021-10-12 20:31 | Emergency (ER) | payer MEDICAID, SELFPAY ==
[2021-10-12 20:37] VITALS: BP 170/95; PULSE 96; RESP 13; TEMP 36.3; O2SAT 98; BMI 23.3
--- NOTE | 2021-10-12 20:43 | CTR_ITS ---
PROCEDURE INFORMATION: Exam: CT Head Without Contrast Exam date and time: 10/12/2021 8:33 PM Age: 46 years old Clinical indication: Weakness, extremity; Left; Patient HX: Sudden onset L sided weakness; Additional info: Left sided weakness TECHNIQUE: Imaging protocol: Computed tomography of the head without contrast. Radiation optimization: All CT scans at this facility use at least one of these dose optimization techniques: automated exposure control; mA and/or kV adjustment per patient size (includes targeted exams where dose is matched to clinical indication); or iterative reconstruction. Other technique: STROKE PROTOCOL was implemented. COMPARISON: CT head wo con* [id number] 09/30/2021 4:50 PM RADIATION DOSE METRICS: Total DLP (mGy-cm): 885.16 FINDINGS: Brain: Normal. No hemorrhage. Unremarkable white matter. No mass effect. Cerebral ventricles: No ventriculomegaly. Paranasal sinuses: Visualized sinuses are unremarkable. No fluid levels. Mastoid air cells: Visualized mastoid air cells are well aerated. Bones/joints: Unremarkable. No acute fracture. Soft tissues: Unremarkable. CT/CT head wo con* [id number] IMPRESSION: No acute intracranial abnormality. ASSESSMENT: ASPECTS ([place] Stroke Program Early CT Score) is 10.
--- NOTE | 2021-10-12 20:44 | XRR_ITS ---
PROCEDURE INFORMATION: Exam: XR Chest Exam date and time: 10/12/2021 8:57 PM Age: 46 years old Clinical indication: Pain; Chest pressure; Additional info: Chest pain TECHNIQUE: Imaging protocol: XR of the chest. Views: 1 view. COMPARISON: CR XR chest 1V portable [id number] 10/07/2021 2:40 PM FINDINGS: Lungs: Unremarkable. No consolidation. Pleural spaces: Unremarkable. No pleural effusion. No pneumothorax. Heart/Mediastinum: Unremarkable. No cardiomegaly. Bones/joints: Unremarkable. XR/XR chest 1V portable [id number] IMPRESSION: No acute findings.
--- NOTE | 2021-10-12 20:46 | ED_ITS ---
HPI - Chest Pain General: Chief Complaint: Neuro Symptoms/Deficit Stated Complaint: L weakness Time Seen by Provider: 10/12/21 20:32 Source: patient Mode of arrival: EMS Limitations: no limitations History of Present Illness: This patient returns to the emergency department brought by EMS from a local convenience store. Patient states that he developed chest pain early this morning. He states that he played basketball for several hours today and had no chest pain during that period of time. He states that he has left arm and leg weakness this evening. He is recently been admitted to this facility for psychiatric evaluation and treatment. He has had multiple admissions and evaluations here for possible CVA. He apparently has received thrombolytic therapy twice within the last 6 weeks. He also alleges he had a stent placed in [facility] some years ago. He denies any fevers or c hills or cough. He states he has been taking the medications previously prescribed. He stated at homeless alf last night. He originally moved here from [facility] approximately 30 days ago and states he likes it here and plans on staying. He denies any head trauma etc. he denies any street drug use etc. He states he ate and drank normally today. MD complaint: chest pain Pain location: left chest Pain radiation: left arm and left shoulder Relieving factors: nitroglycerin Associated symptoms: Deny abdominal pain, dyspnea, fever(s), nausea, palpitations or vomiting Risk Factors: Coronary artery disease risk factors: diabetes and smoking history Review of Systems Const: Denies: fever(s), chills or body aches Eyes: Denies: change in vision ENMT: Denies: throat pain or odynophagia Card: Reports: chest pain; Denies: palpitations, irregular heart rhythm, edema, lightheadedness or dyspnea on exertion Resp: Denies: dyspnea, productive cough, non-productive cough, wheezing or stridor GI: Denies: abdominal pain, nausea or vomiting : Denies: flank pain, difficulty urinating, dysuria or urinary frequency Musc: Denies: neck pain, back pain, extremity pain, extremity swelling or joint pain Skin/Breast: Denies: rash Neuro: Reports: weakness in extremities; Denies: headache(s), dizziness, confusion, Slurred speech present or difficulty communicating thoughts Psych: Reports: anxiety and depression Endo: Denies: polyuria or polydipsia PFSH ED PFSH: Medical History Atherosclerotic heart disease of [place] coronary artery with unstable angina pectoris Benign essential HTN CAD (coronary artery disease) 9stents Chest pain CVA (cerebrovascular accident) Diabetes Dyslipidemia (high LDL; low HDL) Former smoker HTN (hypertension) Surgical History History of appendectomy Family History Other No pertinent family history Social History Smoking and tobacco status: former smoker Alcohol intake: never Housing: House Physical Exam Narrative: EXAM NARRATIVE: Patient makes good eye contact. Speech is goal-directed and fluent. It appears to be calm and in no acute distress. Const: COMMON NORMALS: no acute distress, average body habitus, patient oriented x3 and alert GENERAL APPEARANCE: cooperative, comfortable and well kempt ORIENTATION/CONSCIOUSNESS: Yes awake, Yes oriented to person, Yes oriented to place and Yes oriented to time HENMT: COMMON NORMALS: normocephalic, atraumatic, TM's normal bilaterally, Normal nasal mucous membranes and turbinates present and moist oral mucous membranes HEAD & SCALP: normocephalic and atraumatic FACE & SINUS: normal facial exam and face symmetric NOSE: Normal nasal mucous membranes and turbinates present TYMPANIC MEMBRANE: TM's normal bilaterally Eye: COMMON NORMALS: Equal, round and reactive pupils present, EOMs intact bilaterally, conjunctivae normal and no scleral icterus CONJUNCTIVA: Yes conjunctivae normal PUPIL: Yes Equal, round and reactive pupils present Neck/C-Spine: COMMON NORMALS: full ROM, no lymphadenopathy, supple, no meningeal signs, no JVD and No carotid bruits Chest: COMMONS NORMALS: normal inspection of the chest and normal palpation of entire chest wall Resp: COMMON NORMALS: normal respiratory effort, No retractions and clear to auscultation bilaterally AUSCULTATION: clear to auscultation bilaterally Cardio: COMMON NORMALS: no JVD, regular rate, regular rhythm, No murmurs present (Cardio) and Peripheral pulses 2+ throughout RATE: regular rate RHYTHM: regular rhythm PERIPHERAL PULSES: Peripheral pulses 2+ throughout GI: COMMON NORMALS: Normal to inspection, nondistended, normoactive bowel sounds present, Soft to palpation and non-tender PALPATION: Yes Soft to palpation : COMMON NORMALS: Yes no CVA tenderness BLADDER/KIDNEY EXAM: Yes no CVA tenderness Back/Pelvis: COMMON NORMALS: no CVA tenderness, thoracic and lumbar spine normal to inspection and no thoracic nor lumbar tenderness Extremity: COMMON NORMALS: normal to inspection, full ROM, capillary refill normal, no calf tenderness and no pedal edema Neuro: COMMON NORMALS: patient oriented x3 SENSORIUM/ORIENTATION: Yes alert, Yes oriented to person, Yes oriented to place and Yes oriented to time MENINGEAL SIGNS: Yes no meningeal signs CRANIAL NERVES: Yes CN normal except as noted SPEECH: speech normal OTHER: Patient's spontaneously moved his right upper and right lower extremities without any restriction or difficulty. He stated he could not move his left upper and left lower extremities. He was observed however to voluntarily move his foot and ankle when he was not aware that we are watching. When I moved his left lower extremity I noted muscular contraction and guarding when I was moving it. His left upper extremity also was notable and that he had muscular contraction and guarding when I moved 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 He had normal upper and lower face movement bilaterally. Psych: COMMON NORMALS: mental status grossly normal and speech normal APPEARANCE: Yes well kempt ATTITUDE: Yes calm SPEECH: Yes normal speech Skin: COMMON NORMALS: no rashes or lesions noted, no wounds and turgor normal GENERAL SKIN EXAM: no rashes or lesions noted and turgor normal Course Reevaluation(s): Reevaluation #1: CT negative for acute changes. Based on my current evaluation I do not feel that this patient is having a CVA. We will continue with work-up for possible chest pain. Time: 20:59 Reevaluation #2: Patient was observed to move all extremities without any difficulty spontaneously. Review of his vital signs revealed normal blood pressure and other vital signs. His work-up is reassuring. Given the duration of symptoms, normal EKG a single troponin is reassuring. His CT scan is also reassuring. His clinical examination does not suggest any neurologic deficits or any other evidence of an ongoing emergency medical condition at this time. I discussed all this with the patient and ask if he was ready to be discharged in the emergency department he said that would be great. Discussed the need to continue all his usual medications and follow-up as directed as well as return precautions for the emergency department. This patient being homeless likely has some secondary motivation for his return visits to the emergency department. Time: 22:16 Vital Signs: Vital signs: Vital Signs Temperature 97.3 F L 10/12/21 20:37 Pulse Rate 81 10/12/21 21:31 Respiratory Rate 17 10/12/21 21:31 Blood Pressure 183/146 10/12/21 21:31 Pulse Oximetry 98 10/12/21 21:31 MDM - Chest Pain Medical Decision Making Patient with history of multiple ED visits for various somatic complaints presented this evening with initial symptoms of chest pain as well as left-sided weakness. His work-up here has been reassuring and his symptoms have miraculously improved spontaneously although he had no stigmata initially of having a stroke and given his history of chest pain throughout the day despite his claim to be playing basketball vigorously and engaging in other activities of daily living do not suggest ACS or other worrisome condition. No evidence of an ongoing emergency medical condition he is being discharged in a stable co ndition. Medical Records I reviewed the patient's medical records. Lab Data I reviewed the patient's lab results. : 10/12/21 20:51 10/12/21 20:[address] 10/12/21 20:43 IMPRESSION: No acute intracranial abnormality. ASSESSMENT: ASPECTS (Janeth Stroke Program Early CT Score) is 10. Chest X-Ray 10/12/21 20:44 IMPRESSION: No acute findings. Laboratory Results WBC 11.6 10^3/uL (4.0-10.0) H 10/12/21 20:51 RBC 4.66 10^6/uL (4.1-5.3) 10/12/21 20:51 Hgb 11.3 g/dL (11.7-16.6) L 10/12/21 20:51 Hct 34.4 % (42.0-52.0) L 10/12/21 20:51 MCV 73.8 fl (80-94) L 10/12/21 20:51 MCH 24.2 pg (28.0-34.0) L 10/12/21 20:51 MCHC 32.8 g/dL (30.0-36.0) 10/12/21 20:51 RDW 15.2 % (12.1-15.1) H 10/12/21 20:51 Plt Count 260 10^3/cmm (130-400) 10/12/21 20:51 MPV 12.0 fL (7.4-10.4) H 10/12/21 20:51 Neut % (Auto) 69.1 % 10/12/21 20:51 Lymph % (Auto) 19.2 % 10/12/21 20:51 [place] % (Auto) 9.5 % 10/12/21 20:51 Eos % (Auto) 1.5 % 10/12/21 20:51 Baso % (Auto) 0.4 % 10/12/21 20:51 Neut # (Auto) 8.04 10^3/uL (1.8-7.7) H 10/12/21 20:51 Lymph # (Auto) 2.2 10^3/uL (0.8-4.8) 10/12/21 20:51 [place] # (Auto) 1.1 10^3/uL (0.2-0.9) H 10/12/21 20:51 Eos # (Auto) 0.2 10^3/uL (0.0-0.8) 10/12/21 20:51 Baso # (Auto) 0.1 10^3/uL (0.0-0.1) 10/12/21 20:51 Nucleated RBC % (auto) 0 % 10/12/21 20:51 Nucleated RBCs # 0.0 /100WBC 10/12/21 20:51 Sodium 137 mmol/L (136-145) 10/12/21 20:51 Potassium 3.6 mmol/L (3.5-5.1) 10/12/21 20:51 Chloride 102 mmol/L (98-107) 10/12/21 20:51 Carbon Dioxide 24 mmol/L (22-29) 10/12/21 20:51 Anion Gap 14.6 (5-19) 10/12/21 20:51 BUN 17 mg/dL (6-20) 10/12/21 20:51 Creatinine 1.0 mg/dL (0.7-1.2) 10/12/21 20:51 GFR Calculation 81.2 mL/min (90-130) L 10/12/21 20:51 Glucose 81 mg/dL (65-115) 10/12/21 20:51 POC Glucose 87 mg/dL (70-110) 10/12/21 20:50 Calculated Osmolality 285 mOsm/kg (285-295) 10/12/21 20:51 Calcium 8.2 mg/dL (8.5-10.5) L 10/12/21 20:51 Troponin T Baseline 12 ng/L (0-15) 10/12/21 20:51 Discharge Plan Discharge Patient Disposition: Home Clinical Impression: Chest pain, Somatic symptom disorder Condition: Stable Prescriptions: No Action oummbtekav-mhfybbbnwdgyt-hvxb 50-325-40 mg tablet 2 tab PO BID PRN (Reason: Migraine Headache) 0RF Hold Instructions: interaction with aspirin insulin aspart U-100 [Novolog Flexpen U-100 Insulin] 100 unit/mL (3 mL) insulin pen See Rx Instructions .ROUTE .COMPLEX Qty: 15 0RF Hold Instructions: See PCP Rx Instructions: Inject, 3 times daily, after meals, based on sliding scale provided Lantus Solostar U-100 Insulin 100 unit/mL (3 mL) Insulin Pen 5 unit SUBCUT DAILY Qty: 15 0RF Hold Instructions: See PCP Lantus Solostar U-100 Insulin 100 unit/mL (3 mL) insulin pen 5 unit SUBCUT DAILY Qty: 15 0RF Hold Instructions: See PCP insulin aspart U-100 [Novolog Flexpen U-100 Insulin] 100 unit/mL (3 mL) insulin pen 1 unit SUBCUT TID Qty: 3 0RF Hold Instructions: See PCP Rx Instructions: Inject 3 times daily after meals based on sliding scale. isosorbide mononitrate 60 mg tablet extended release 24 hr 60 mg PO BID Qty: 60 0RF Hold Instructions: see pcp ondansetron 4 mg tablet,disintegrating 4 mg PO Q6H PRN (Reason: nausea and vomiting) Qty: 14 0RF ProAir HFA 90 mcg/actuation HFA aerosol inhaler 2 puff INHALATION Q4H PRN (Reason: Shortness Of Breath) 1 Days Qty: 30 0RF carvedilol 3.125 mg Tablet 3.125 mg PO Q12H 30 Days Qty: 60 1RF escitalopram oxalate 10 mg Tablet 10 mg PO DAILY 30 Days Qty: 30 1RF aripiprazole 10 mg Tablet 5 mg PO DAILY 30 Days Qty: 30 1RF atorvastatin 40 mg tablet 40 mg PO BEDTIME 30 Days Qty: 30 1RF ondansetron HCl 4 mg tablet 4 mg PO Q8H PRN (Reason: Nausea And Vomiting) 30 Days Qty: 60 1RF clopidogrel 75 mg tablet 75 mg PO QAM 30 Days Qty: 30 1RF aspirin 81 mg Tablet,Delayed Release (Dr/Ec) 81 mg PO QAM 30 Days Qty: 30 1RF Protonix 40 mg tablet,delayed release (DR/EC) 40 mg PO DAILY 30 Days Qty: 30 1RF Nitrostat 0.4 mg Tablet, Sublingual 0.4 mg SUBLINGUAL Q5M PRN (Reason: Chest Pain) 30 Days Qty: 60 1RF Rx Instructions: do not exceed 3 doses per episode ranolazine 500 mg tablet extended release 12 hr 500 mg PO BID 30 Days Qty: 60 1RF Discharge Orders: Discharge ED (Routine); Ordered 10/12/21 Ordered By: Damian Damon Discharge Diet: Usual diet and Diabetic Discharge Activity: Resume usual activity Patient Instructions: Opioid Safety Activity Restrictions/Additional Instructions: Continue all your prescribed medications. Follow-up with your usual doctors as scheduled. If you develop any new or worsening or other concerning symptoms you are welcome to return to the emergency department at any time for reevaluation. Coding Level of Care Code ED Ion Implant Machine Operator for Marcelino Stephen Exam Comprehensive
[2021-10-12 20:57] LABS: Glucose Point of Care 87 mg/dL (70-110)
[2021-10-12 21:01] LABS: Basophils # 0.1 10^3/uL (0.0-0.1); Basophils % 0.4 %; Eosinophils # 0.2 10^3/uL (0.0-0.8); Eosinophils % 1.5 %; Hematocrit 34.4 % (42.0-52.0); Hemoglobin 11.3 g/dL (11.7-16.6); Lymphocytes # 2.2 10^3/uL (0.8-4.8); Lymphocytes % 19.2 %; Mean Corpuscular HGB Conc 32.8 g/dL (30.0-36.0); Mean Corpuscular Hemoglobin 24.2 pg (28.0-34.0); Mean Corpuscular Volume 73.8 fl (80-94); Monocytes # 1.1 10^3/uL (0.2-0.9); Monocytes % 9.5 %; Neutrophils # 8.04 10^3/uL (1.8-7.7); Neutrophils % 69.1 %; Nucleated Red Blood Cells % 0 %; Platelet Count 260 10^3/cmm (130-400); Red Blood Count 4.66 10^6/uL (4.1-5.3); Red Cell Distribution Width 15.2 % (12.1-15.1); White Blood Count 11.6 10^3/uL (4.0-10.0)
[2021-10-12] MEDS: aspirin 81 mg Chew Tablet 324 MG PO (21:16)
[2021-10-12 21:18] LABS: Anion Gap 14.6 (5-19); Blood Urea Nitrogen 17 mg/dL (6-20); Calcium 8.2 mg/dL (8.5-10.5); Carbon Dioxide 24 mmol/L (22-29); Chloride 102 mmol/L (98-107); Glomerular Filtration Rate 81.2 mL/min (90-130); Glucose 81 mg/dL (65-115); Osmolality Calculated 285 mOsm/kg (285-295); Potassium 3.6 mmol/L (3.5-5.1); Sodium 137 mmol/L (136-145)
[2021-10-12 21:20] LABS: Troponin(5th) Baseline 12 ng/L (0-15)
[2021-10-12 21:31] VITALS: BP 183/146; PULSE 81; RESP 17; O2SAT 98
[2021-10-12 21:35] LABS: Slide Review Slide Review Perform
[2021-10-12 22:37] VITALS: BP 134/86; PULSE 71; RESP 16; O2SAT 98
== END 2021-10-12 22:30 | disposition home or self-care (01) ==
PROVIDERS: Emergency Provider Emergency Medicine
DX: R07.9 Chest pain, unspecified (principal); F45.9 Somatoform disorder, unspecified; I10 Essential (primary) hypertension; E11.9 Type 2 diabetes mellitus without complications; I25.110 Atherosclerotic heart disease of native coronary artery with unstable angina pectoris; Z79.4 Long term (current) use of insulin; Z79.82 Long term (current) use of aspirin; Z79.02 Long term (current) use of antithrombotics/antiplatelets; Z59.00 Homelessness unspecified; Z87.891 Personal history of nicotine dependence; Z86.73 Personal history of transient ischemic attack (TIA), and cerebral infarction without residual deficits
CPT/HCPCS: 36416; 70450; 71045; 80048; 82962; 84484; 85025; 99283

== ENCOUNTER 2021-10-13 13:37 | Emergency (ER) | payer MEDICAID, SELFPAY ==
[2021-10-13 13:43] VITALS: BP 133/82; PULSE 119; RESP 20; TEMP 36.9; O2SAT 97; BMI 23.3
--- NOTE | 2021-10-13 14:18 | ECG_ITS ---
[facility] Test Date: 2021-10-13 Pat Name: Alonso June Department: Room: Gender: Male Senior Information Developer: : 1975 Requested By: Kam Phillips Order Number: [id number] Janel MD: Heath Pacheco M.D. Measurements Intervals [place] Rate: 117 P: 66 UT: 140 QRS: 71 QRSD: 77 T: 45 QT: 274 QTc: 384 Interpretive Statements SINUS TACHYCARDIA POSSIBLE LEFT ATRIAL ENLARGEMENT [-0.1mV P-WAVE IN V1/V2] POSSIBLE LEFT VENTRICULAR HYPERTROPHY [VOLTAGE CRITERIA PLUS LAE OR QRS WIDENING] Compared to ECG 10/10/2021 00:29:03 Sinus rhythm no longer present Electronically Signed On 10-13-2021 22:04:51 CDT by Heath Pacheco M.D. [id number]
== END 2021-10-13 15:56 | disposition left against medical advice (07) ==
PROVIDERS: Emergency Provider Family Medicine
DX: Z53.21 Procedure and treatment not carried out due to patient leaving prior to being seen by health care provider (principal)
CPT/HCPCS: 93005

== ENCOUNTER 2021-10-13 21:30 | Emergency (ER) | payer MEDICAID, SELFPAY ==
--- NOTE | 2021-10-13 21:30 | XRR_ITS ---
PROCEDURE INFORMATION: Exam: XR Chest Exam date and time: 10/13/2021 9:53 PM Age: 46 years old Clinical indication: Sternal or substernal pain; Prior surgery; Surgery date: 6+ months; Surgery type: Stents; Additional info: Cp TECHNIQUE: Imaging protocol: XR of the chest. Views: 1 view. COMPARISON: CR (CHEST, ) 10/12/2021 8:57 PM FINDINGS: Lungs: Unremarkable. No consolidation. Pleural spaces: Unremarkable. No pleural effusion. No pneumothorax. Heart/Mediastinum: Unremarkable. No cardiomegaly. Bones/joints: Unremarkable. XR/XR chest 1V portable [id number] IMPRESSION: No acute findings.
[2021-10-13 21:35] VITALS: BP 137/71; PULSE 90; RESP 18; TEMP 36.6; O2SAT 99; BMI 23.3
[2021-10-13 21:54] LABS: Basophils # 0.1 10^3/uL (0.0-0.1); Basophils % 0.6 %; Eosinophils # 0.2 10^3/uL (0.0-0.8); Eosinophils % 2.6 %; Hematocrit 34.7 % (42.0-52.0); Hemoglobin 11.2 g/dL (11.7-16.6); Lymphocytes # 2.3 10^3/uL (0.8-4.8); Lymphocytes % 28.1 %; Mean Corpuscular HGB Conc 32.3 g/dL (30.0-36.0); Mean Corpuscular Hemoglobin 23.6 pg (28.0-34.0); Mean Corpuscular Volume 73.1 fl (80-94); Mean Platelet Volume 12.3 fL (7.4-10.4); Monocytes % 11.8 %; Neutrophils # 4.67 10^3/uL (1.8-7.7); Neutrophils % 56.7 %; Nucleated Red Blood Cells % 0 %; Platelet Count 309 10^3/cmm (130-400); Red Blood Count 4.75 10^6/uL (4.1-5.3); White Blood Count 8.2 10^3/uL (4.0-10.0)
[2021-10-13 22:15] LABS: Alanine Aminotransferase 9 U/L (0-41); Albumin Level 4.5 g/dL (3.5-5.2); Alkaline Phosphatase 83 IU/L (40-130); Anion Gap 16.2 (5-19); Aspartate Amino Transferase 9 U/L (0-40); Blood Urea Nitrogen 14 mg/dL (6-20); Calcium 8.5 mg/dL (8.5-10.5); Carbon Dioxide 22 mmol/L (22-29); Chloride 104 mmol/L (98-107); Globulin 2.1 g/dL (1.3-4.6); Glomerular Filtration Rate 91.7 mL/min (90-130); Glucose 91 mg/dL (65-115); Osmolality Calculated 286 mOsm/kg (285-295); Potassium 4.2 mmol/L (3.5-5.1); Sodium 138 mmol/L (136-145); Total Bilirubin 0.2 mg/dL (0.15-1.2); Total Protein 6.6 g/dL (6.6-8.7)
[2021-10-13 22:16] LABS: Troponin(5th) Baseline 14 ng/L (0-15)
--- NOTE | 2021-10-13 23:15 | ED_ITS ---
HPI - Chest Pain General: Chief Complaint: Chest Pain Stated Complaint: cp Time Seen by Provider: 10/13/21 22:03 Source: patient Mode of arrival: EMS Limitations: no limitations History of Present Illness: 46-year-old male states he been having chest pain over the last 1 to 2 hours patient has been seen here multiple times over the last month and has had a normal cardiac cath this month as well. He states pain sharp in nature in the center of his chest rates it a 6 out of 10 denies any worsening proving factors denies any dyspnea denies any vomiting or diarrhea. Associated symptoms: Deny abdominal pain, dyspnea, fever(s), nausea or vomiting Review of Systems Const: Denies: fever(s), chills, body aches or change in appetite Eyes: Denies: blurry vision or eye discomfort ENMT: Denies: throat pain or dental pain Card: Reports: chest pain Resp: Denies: dyspnea GI: Denies: abdominal pain, nausea, vomiting or diarrhea : Denies: dysuria Musc: Denies: neck pain or back pain Skin/Breast: Denies: rash Neuro: Reports: headache(s) Psych: Denies: depression Melquiades/Lymph: Denies: easy bruising All/Imm: Denies: urticaria PFSH ED PFSH: Medical History Atherosclerotic heart disease of [place] coronary artery with unstable angina pectoris Benign essential HTN CAD (coronary artery disease) 9stents Chest pain CVA (cerebrovascular accident) Diabetes Dyslipidemia (high LDL; low HDL) Former smoker HTN (hypertension) Surgical History History of appendectomy Family History Other No pertinent family history Social History Smoking and tobacco status: former smoker Alcohol intake: never Housing: House Physical Exam Const: COMMON NORMALS: no acute distress, patient oriented x3 and healthy appearing HENMT: COMMON NORMALS: normocephalic and atraumatic HEAD & SCALP: normocephalic and atraumatic Eye: COMMON NORMALS: Equal, round and reactive pupils present and EOMs intact bilaterally PUPIL: Yes Equal, round and reactive pupils present Neck/C-Spine: COMMON NORMALS: full ROM and supple Chest: COMMONS NORMALS: normal inspection of the chest and normal palpation of entire chest wall Resp: COMMON NORMALS: normal respiratory effort, No retractions, No use of accessory muscles and clear to auscultation bilaterally AUSCULTATION: clear to auscultation bilaterally Cardio: COMMON NORMALS: regular rate, regular rhythm and No murmurs present (Cardio) RATE: regular rate RHYTHM: regular rhythm GI: COMMON NORMALS: Normal to inspection, nondistended, normoactive bowel soun ds present, Soft to palpation, non-tender and no masses PALPATION: Yes Soft to palpation Extremity: COMMON NORMALS: normal to inspection and full ROM Neuro: COMMON NORMALS: patient oriented x3, moves all extremities and no focal motor deficits Psych: COMMON NORMALS: mental status grossly normal, Normal thought process present and cooperative THOUGHT PROCESS: Normal thought process present Skin: COMMON NORMALS: no rashes or lesions noted and no wounds GENERAL SKIN EXAM: no rashes or lesions noted Course Vital Signs: Vital signs: Vital Signs Temperature 97.9 F 10/13/21 21:35 Pulse Rate 79 10/13/21 23:20 Respiratory Rate 16 10/13/21 23:28 Blood Pressure 160/79 10/13/21 23:20 Pulse Oximetry 100 10/13/21 23:20 MDM - Chest Pain Medical Decision Making Patient presents for chest pain that is atypical in nature his initial troponin here is normal he stable for discharge is to follow-up PCP and return if worsening. Lab Data : 10/13/21 21:45 10/13/21 21:45 Radiology Impressions Chest X-Ray 10/13/21 21:30 IMPRESSION: No acute findings. Laboratory Results WBC 8.2 10^3/uL (4.0-10.0) 10/13/21 21:45 RBC 4.75 10^6/uL (4.1-5.3) 10/13/21 21:45 Hgb 11.2 g/dL (11.7-16.6) L 10/13/21 21:45 Hct 34.7 % (42.0-52.0) L 10/13/21 21:45 MCV 73.1 fl (80-94) L 10/13/21 21:45 MCH 23.6 pg (28.0-34.0) L 10/13/21 21:45 MCHC 32.3 g/dL (30.0-36.0) 10/13/21 21:45 RDW 15.0 % (12.1-15.1) 10/13/21 21:45 Plt Count 309 10^3/cmm (130-400) 10/13/21 21:45 MPV 12.3 fL (7.4-10.4) H 10/13/21 21:45 Neut % (Auto) 56.7 % 10/13/21 21:45 Lymph % (Auto) 28.1 % 10/13/21 21:45 [place] % (Auto) 11.8 % 10/13/21 21:45 Eos % (Auto) 2.6 % 10/13/21 21:45 Baso % (Auto) 0.6 % 10/13/21 21:45 Neut # (Auto) 4.67 10^3/uL (1.8-7.7) 10/13/21 21:45 Lymph # (Auto) 2.3 10^3/uL (0.8-4.8) 10/13/21 21:45 [place] # (Auto) 1.0 10^3/uL (0.2-0.9) H 10/13/21 21:45 Eos # (Auto) 0.2 10^3/uL (0.0-0.8) 10/13/21 21:45 Baso # (Auto) 0.1 10^3/uL (0.0-0.1) 10/13/21 21:45 Nucleated RBC % (auto) 0 % 10/13/21 21:45 Nucleated RBCs # 0.0 /100WBC 10/13/21 21:45 Sodium 138 mmol/L (136-145) 10/13/21 21:45 Potassium 4.2 mmol/L (3.5-5.1) 10/13/21 21:45 Chloride 104 mmol/L (98-107) 10/13/21 21:45 Carbon Dioxide 22 mmol/L (22-29) 10/13/21 21:45 Anion Gap 16.2 (5-19) 10/13/21 21:45 BUN 14 mg/dL (6-20) 10/13/21 21:45 Creatinine 0.9 mg/dL (0.7-1.2) 10/13/21 21:45 GFR Calculation 91.7 mL/min (90-130) 10/13/21 21:45 Glucose 91 mg/dL (65-115) 10/13/21 21:45 Calculated Osmolality 286 mOsm/kg (285-295) 10/13/21 21:45 Calcium 8.5 mg/dL (8.5-10.5) 10/13/21 21:45 Total Bilirubin 0.2 mg/dL (0.15-1.2) 10/13/21 21:45 AST 9 U/L (0-40) 10/13/21 21:45 ALT 9 U/L (0-41) 10/13/21 21:45 Alkaline Phosphatase 83 IU/L (40-130) 10/13/21 21:45 Troponin T Baseline 14 ng/L (0-15) 10/13/21 21:45 Total Protein 6.6 g/dL (6.6-8.7) 10/13/21 21:45 Albumin 4.5 g/dL (3.5-5.2) 10/13/21 21:45 Globulin 2.1 g/dL (1.3-4.6) 10/13/21 21:45 Discharge Plan Discharge Patient Disposition: Home Clinical Impression: Chest pain Condition: Stable Prescriptions: No Action enfqzrofvr-peqxkwyerhxxc-jdnh 50-325-40 mg tablet 2 tab PO BID PRN (Reason: Migraine Headache) 0RF Hold Instructions: interaction with aspirin insulin aspart U-100 [Novolog Flexpen U-100 Insulin] 100 unit/mL (3 mL) insulin pen See Rx Instructions .ROUTE .COMPLEX Qty: 15 0RF Hold Instructions: See PCP Rx Instructions: Inject, 3 times daily, after meals, based on sliding scale provided Lantus Solostar U-100 Insulin 100 unit/mL (3 mL) Insulin Pen 5 unit SUBCUT DAILY Qty: 15 0RF Hold Instructions: See PCP Lantus Solostar U-100 Insulin 100 unit/mL (3 mL) insulin pen 5 unit SUBCUT DAILY Qty: 15 0RF Hold Instructions: See PCP insulin aspart U-100 [Novolog Flexpen U-100 Insulin] 100 unit/mL (3 mL) insulin pen 1 unit SUBCUT TID Qty: 3 0RF Hold Instructions: See PCP Rx Instructions: Inject 3 times daily after meals based on sliding scale. isosorbide mononitrate 60 mg tablet extended release 24 hr 60 mg PO BID Qty: 60 0RF Hold Instructions: see pcp ondansetron 4 mg tablet,disintegrating 4 mg PO Q6H PRN (Reason: nausea and vomiting) Qty: 14 0RF ProAir HFA 90 mcg/actuation HFA aerosol inhaler 2 puff INHALATION Q4H PRN (Reason: Shortness Of Breath) 1 Days Qty: 30 0RF carvedilol 3.125 mg Tablet 3.125 mg PO Q12H 30 Days Qty: 60 1RF escitalopram oxalate 10 mg Tablet 10 mg PO DAILY 30 Days Qty: 30 1RF aripiprazole 10 mg Tablet 5 mg PO DAILY 30 Days Qty: 30 1RF atorvastatin 40 mg tablet 40 mg PO BEDTIME 30 Days Qty: 30 1RF ondansetron HCl 4 mg tablet 4 mg PO Q8H PRN (Reason: Nausea And Vomiting) 30 Days Qty: 60 1RF clopidogrel 75 mg tablet 75 mg PO QAM 30 Days Qty: 30 1RF aspirin 81 mg Tablet,Delayed Release (Dr/Ec) 81 mg PO QAM 30 Days Qty: 30 1RF Protonix 40 mg tablet,delayed release (DR/EC) 40 mg PO DAILY 30 Days Qty: 30 1RF Nitrostat 0.4 mg Tablet, Sublingual 0.4 mg SUBLINGUAL Q5M PRN (Reason: Chest Pain) 30 Days Qty: 60 1RF Rx Instructions: do not exceed 3 doses per episode ranolazine 500 mg tablet extended release 12 hr 500 mg PO BID 30 Days Qty: 60 1RF Discharge Orders: Discharge ED (Routine); Ordered 10/13/21 Ordered By: Jb Jaime Discharge Diet: Advance as tolerated Discharge Activity: Resume usual activity Patient Instructions: Chest Pain (ED) Coding Level of Care Code ED Substance Abuse Technician for Marcelino Stephen Exam Comprehensive
[2021-10-13 23:20] VITALS: BP 160/79; PULSE 79; RESP 17; O2SAT 100
[2021-10-13 23:28] VITALS: RESP 16
[2021-10-13] MEDS: morphine 4 mg/mL SDV 1 mL IVP (23:28)
[2021-10-13] MEDS: ondansetron 2 mg/ML SDV 2 mL 4 MG IVP (23:28)
--- NOTE | 2021-10-13 23:30 | ECG_ITS ---
[facility] Test Date: 2021-10-13 Pat Name: Alonso June Department: Room: Gender: Male Logistician: : 1975 Requested By: Jb Jaime Order Number: [id number] Janel MD: Heath Pacheco M.D. Measurements Intervals [place] Rate: 93 P: 72 IN: 160 QRS: 76 QRSD: 81 T: 44 QT: 336 QTc: 418 Interpretive Statements SINUS RHYTHM MODERATE VOLTAGE CRITERIA FOR LVH, CONSIDER NORMAL VARIANT [MEETS CRITERIA IN ONE OF: R(aVL), S(V1), R(V5), R(V5/V6)+S(V1)] Compared to ECG 10/13/2021 13:48:25 Sinus tachycardia no longer present Electronically Signed On 10-13-2021 22:11:06 CDT by Heath Pacheco M.D. [email or web address] [email or web address] memorial [email or web address]. [email or web address] [email or web address]/[email or web address]/[id number]
== END 2021-10-13 23:37 | disposition home or self-care (01) ==
PROVIDERS: Emergency Provider Emergency Medicine
DX: R07.9 Chest pain, unspecified (principal); Z87.891 Personal history of nicotine dependence; Z79.4 Long term (current) use of insulin; Z79.02 Long term (current) use of antithrombotics/antiplatelets; Z79.82 Long term (current) use of aspirin
CPT/HCPCS: 71045; 80053; 84484; 85025; 93005; 96374; 96375; 99283; J2270; J2405

== ENCOUNTER 2021-10-14 01:46 | Emergency (ER) | payer MEDICAID, SELFPAY ==
[2021-10-14 01:53] VITALS: BP 145/89; PULSE 72; RESP 16; TEMP 37; O2SAT 97; BMI 25.2
--- NOTE | 2021-10-14 02:00 | W.ED.GENADLT ---
HPI - General Adult General: Chief complaint: Fall Stated complaint: Nose Bleed\Allergic Reaction to meds Time Seen by Provider: 10/14/21 01:52 Source: patient Mode of arrival: ambulatory Limitations: no limitations History of Present Illness: Patient is a 46-year-old male who was extremely well-known to our emergency department here yet again (after just being discharged 2 hours ago) for complaints of a possible fall that he thinks may be related to the shot of morphine they gave me . Patient denies any other injury sustained during the fall. This will make patient's third visit in the last 48 hours. He has had a total of 15 emergency department visits over the past 1.5 months. Patient has no specific complaints today. He does tell me he wants his cardiac stents removed. Associated symptoms: Reports no associated symptoms Review of Systems General: Reports: 10 or more systems reviewed and unremarkable except in HPI and below PFSH ED PFSH: Medical History Atherosclerotic heart disease of [place] coronary artery with unstable angina pectoris Benign essential HTN CAD (coronary artery disease) 9stents Chest pain CVA (cerebrovascular accident) Diabetes Dyslipidemia (high LDL; low HDL) Former smoker HTN (hypertension) Surgical History History of appendectomy Family History Other No pertinent family history Social History Smoking and tobacco status: former smoker Alcohol intake: never Housing: House Physical Exam Const: COMMON NORMALS: no acute distress, patient oriented x3, no limitations and alert GENERAL APPEARANCE: cooperative and appears older than stated age ORIENTATION/CONSCIOUSNESS: Yes awake, Yes oriented to person, Yes oriented to place and Yes oriented to time HENMT: COMMON NORMALS: normocephalic and atraumatic HEAD & SCALP: normal to inspection, normocephalic and atraumatic FACE & SINUS: normal facial exam Neck/C-Spine: CERVICAL SPINE: No Cervical spine tenderness Resp: COMMON NORMALS: normal respiratory effort Cardio: COMMON NORMALS: regular rate and regular rhythm RATE: regular rate RHYTHM: regular rhythm Back/Pelvis: COMMON NORMALS: no thoracic nor lumbar tenderness Extremity: COMMON NORMALS: normal to inspection GENERAL: Yes normal exam except as noted Neuro: JULIANO COMA SCALE: document GCS findings [place] coma scale eye opening: Spontaneous Juliano coma scale verbal response: Orientated Juliano coma scale motor response: Obey commands Juliano coma scale total score: 15 COMMON NORMALS: patient oriented x3 and gait normal SENSORIUM/ORIENTATION: Yes alert, Yes oriented to person, Yes oriented to place and Yes oriented to time Skin: COMMON NORMALS: no rashes or lesions noted GENERAL SKIN EXAM: no rashes or lesions noted TRAUMA: no lacerations or abrasions Course Vital Signs: Vital signs: Vital Signs Temperature 98.6 F 10/14/21 02:05 Pulse Rate 72 10/14/21 02:05 Respiratory Rate 16 10/14/21 02:05 Blood Pressure 145/89 10/14/21 02:05 Pulse Oximetry 97 10/14/21 02:05 MDM - General Adult Medical Decision Making Patient has no specific physical complaints at this visit. As previously documented he was just discharged from our emergency department 2 hours ago. This makes patient's 15th ED visit in the past 1.5 months. He has had close to 30 various imaging modalities performed over the same time. I had a long conversation in regards to patient's abuse of this emergency department. I told him we would be more than happy to see him for any concerns of life threatening conditions but anything that does not require emergent intervention should ideally be treated by his primary care provider. I told him I would be willing to place a referral for case management to help get him set up with a primary care provider and also gave him information in regards to the financial director program so he can get assistance. Patient is stable for discharge at this time. Discharge Plan Discharge Patient Disposition: Home Clinical Impression: Frequent attender of accident and emergency department Condition: Stable Prescriptions: No Action utvmtjulks-twecqhhnudije-hzgy 50-325-40 mg tablet 2 tab PO BID PRN (Reason: Migraine Headache) 0RF Hold Instructions: interaction with aspirin insulin aspart U-100 [Novolog Flexpen U-100 Insulin] 100 unit/mL (3 mL) insulin pen See Rx Instructions .ROUTE .COMPLEX Qty: 15 0RF Hold Instructions: See PCP Rx Instructions: Inject, 3 times daily, after meals, based on sliding scale provided Lantus Solostar U-100 Insulin 100 unit/mL (3 mL) Insulin Pen 5 unit SUBCUT DAILY Qty: 15 0RF Hold Instructions: See PCP Lantus Solostar U-100 Insulin 100 unit/mL (3 mL) insulin pen 5 unit SUBCUT DAILY Qty: 15 0RF Hold Instructions: See PCP insulin aspart U-100 [Novolog Flexpen U-100 Insulin] 100 unit/mL (3 mL) insulin pen 1 unit SUBCUT TID Qty: 3 0RF Hold Instructions: See PCP Rx Instructions: Inject 3 times daily after meals based on sliding scale. isosorbide mononitrate 60 mg tablet extended release 24 hr 60 mg PO BID Qty: 60 0RF Hold Instructions: see pcp ondansetron 4 mg tablet,disintegrating 4 mg PO Q6H PRN (Reason: nausea and vomiting) Qty: 14 0RF ProAir HFA 90 mcg/actuation HFA aerosol inhaler 2 puff INHALATION Q4H PRN (Reason: Shortness Of Breath) 1 Days Qty: 30 0RF carvedilol 3.125 mg Tablet 3.125 mg PO Q12H 30 Days Qty: 60 1RF escitalopram oxalate 10 mg Tablet 10 mg PO DAILY 30 Days Qty: 30 1RF aripiprazole 10 mg Tablet 5 mg PO DAILY 30 Days Qty: 30 1RF atorvastatin 40 mg tablet 40 mg PO BEDTIME 30 Days Qty: 30 1RF ondansetron HCl 4 mg tablet 4 mg PO Q8H PRN (Reason: Nausea And Vomiting) 30 Days Qty: 60 1RF clopidogrel 75 mg tablet 75 mg PO QAM 30 Days Qty: 30 1RF aspirin 81 mg Tablet,Delayed Release (Dr/Ec) 81 mg PO QAM 30 Days Qty: 30 1RF Protonix 40 mg tablet,delayed release (DR/EC) 40 mg PO DAILY 30 Days Qty: 30 1RF Nitrostat 0.4 mg Tablet, Sublingual 0.4 mg SUBLINGUAL Q5M PRN (Reason: Chest Pain) 30 Days Qty: 60 1RF Rx Instructions: do not exceed 3 doses per episode ranolazine 500 mg tablet extended release 12 hr 500 mg PO BID 30 Days Qty: 60 1RF Discharge Orders: Discharge ED (Routine); Ordered 10/14/21 Ordered By: Jillian Correia Coding Level of Care Code ED Entry Level Paralegal for Chg Hailee
[2021-10-14 02:05] VITALS: BP 145/89; PULSE 72; RESP 16; TEMP 37; O2SAT 97
--- NOTE | 2021-10-16 13:42 | DCPLANNER ---
Addendum entered by Linda Payne 10/22/21 19:24: Patient had a follow up appointment scheduled with at [facility] - patient did not attend appointment. Original Note: bookkeeping manager had message to speak with patient about getting established with a primary care physician. bookkeeping manager spoke with patient, he stated that he would like case managers to get him established with a primary care physician. bookkeeping manager called [facility], spoke with Ramandeep, gave clinic patients information. A follow up appointment was scheduled for Thursday, October 21, 2021 at 10:[address] Richmond. bookkeeping manager called patient back and gave him the appointment information. bookkeeping manager also mailed patient both of the financial institution vice president paperwork to fill out and turn back in.
== END 2021-10-14 02:07 | disposition home or self-care (01) ==
PROVIDERS: Emergency Provider Physician Assistant
DX: Z71.1 Person with feared health complaint in whom no diagnosis is made (principal); R04.0 Epistaxis; W19.XXXA Unspecified fall, initial encounter; E11.9 Type 2 diabetes mellitus without complications; Z79.4 Long term (current) use of insulin
CPT/HCPCS: 99281

== ENCOUNTER 2021-10-18 17:48 | Emergency (ER) | payer MEDICAID, SELFPAY ==
--- NOTE | 2021-10-18 17:51 | XRR_ITS ---
PROCEDURE INFORMATION: Exam: XR Chest Exam date and time: 10/18/2021 6:18 PM Age: 46 years old Clinical indication: Pain; Chest pressure; Additional info: Chest pain TECHNIQUE: Imaging protocol: XR of the chest. Views: 1 view. COMPARISON: CR (CHEST, ) 10/13/2021 9:53 PM FINDINGS: Lungs: Unremarkable. No consolidation. Pleural spaces: Unremarkable. No pleural effusion. No pneumothorax. Heart/Mediastinum: Unremarkable. No cardiomegaly. Bones/joints: Unremarkable. XR/XR chest 1V portable [id number] IMPRESSION: No acute findings.
[2021-10-18 17:52] VITALS: BP 206/95; PULSE 114; RESP 20; TEMP 37.2; O2SAT 98; BMI 23.3
--- NOTE | 2021-10-18 17:52 | ECG_ITS ---
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 Measurements Intervals [place] Rate: 102 P: 62 GA: 137 QRS: 70 QRSD: 78 T: 62 QT: 308 QTc: 402 Interpretive Statements SINUS TACHYCARDIA VOLTAGE CRITERIA FOR LVH [MEETS CRITERIA IN ONE OF: R(aVL), S(V1), R(V5), R(V5/V6)+S(V1)] Compared to ECG 10/13/2021 21:45:18 Sinus rhythm no longer present Electronically Signed On 10-19-2021 8:15:21 CDT by Richie Macias M.D. [email or web address]
[2021-10-18 18:16] LABS: Basophils # 0.1 10^3/uL (0.0-0.1); Basophils % 0.6 %; Eosinophils # 0.3 10^3/uL (0.0-0.8); Eosinophils % 3.6 %; Hematocrit 36.3 % (42.0-52.0); Hemoglobin 11.7 g/dL (11.7-16.6); Lymphocytes # 2.1 10^3/uL (0.8-4.8); Lymphocytes % 26.2 %; Mean Corpuscular HGB Conc 32.2 g/dL (30.0-36.0); Mean Corpuscular Hemoglobin 23.5 pg (28.0-34.0); Mean Corpuscular Volume 72.9 fl (80-94); Mean Platelet Volume 12.2 fL (7.4-10.4); Monocytes # 0.9 10^3/uL (0.2-0.9); Monocytes % 10.8 %; Neutrophils # 4.74 10^3/uL (1.8-7.7); Neutrophils % 58.4 %; Nucleated Red Blood Cells % 0 %; Platelet Count 319 10^3/cmm (130-400); Red Blood Count 4.98 10^6/uL (4.1-5.3); Red Cell Distribution Width 15.3 % (12.1-15.1); White Blood Count 8.1 10^3/uL (4.0-10.0)
[2021-10-18] MEDS: aspirin 81 mg Chew Tablet 324 MG PO (18:31)
[2021-10-18] MEDS: nitroglycerin 0.4 mg sublingual Tablet SUBLINGUAL (18:31)
[2021-10-18 18:33] LABS: Blood Urea Nitrogen 15 mg/dL (6-20); Calcium 8.6 mg/dL (8.5-10.5); Carbon Dioxide 21 mmol/L (22-29); Chloride 103 mmol/L (98-107); Glucose 95 mg/dL (65-115); Osmolality Calculated 283 mOsm/kg (285-295); Sodium 136 mmol/L (136-145)
[2021-10-18 18:35] LABS: Troponin(5th) Baseline 13 ng/L (0-15)
[2021-10-18 18:54] LABS: Anion Gap 16.3 (5-19); Potassium 4.3 mmol/L (3.5-5.1)
--- NOTE | 2021-10-18 18:59 | W.ED.GENADLT ---
HPI - General Adult General: Chief complaint: Chest Pain Stated complaint: chest pain History of Present Illness: CC: Chest Pain HPI: This is a [46] yo patient hx of CAD presenting to the ED complaining of acute sudden onset intermittent sharp chest pain since 4pm WITHOUT radiation to the back or shoulders. He reports the pain is sharp that is persistent. No associated with shortness of breath, chest pain or dyspnea on exertion. Pain is not tearing in nature and does not radiate to the back. Pain not associated with vomiting or PO intake. Denies any recent sympathomimetic drug use. Patient denies any cough. Denies palpitations, dysphagia, diaphoresis, radiation of pain to bilateral arms, jaw. Denies F/N/V/D. Patient denies any recent immobility, surgery, unilateral leg swelling, or prior PE. Patient denies any orthopnea. Onset: today since 4pm Duration: ongoing for the last 1 day Location: home Severity: mild/moderate Associated symptoms: Reports chest pain; Deny dyspnea, nausea, rash, palpitations or vomiting Review of Systems Const: Denies: fever(s) or chills Eyes: Denies: change in vision ENMT: Denies: mouth pain Card: Reports: chest pain; Denies: palpitations Resp: Denies: dyspnea or non-productive cough GI: Denies: abdominal pain, nausea, vomiting or diarrhea : Denies: dysuria Musc: Denies: extremity pain Skin/Breast: Denies: rash or new lesions Neuro: Denies: weakness in extremities Psych: Reports: other (Normal mood) Melquiades/Lymph: Denies: easy bruising PFSH ED PFSH: Medical History Atherosclerotic heart disease of [place] coronary artery with unstable angina pectoris Benign essential HTN CAD (coronary artery disease) 9stents Chest pain CVA (cerebrovascular accident) Diabetes Dyslipidemia (high LDL; low HDL) Former smoker HTN (hypertension) Surgical History History of appendectomy Family History Other No pertinent family history Social History Smoking and tobacco status: former smoker Alcohol intake: never Housing: House Physical Exam Const: COMMON NORMALS: alert HENMT: COMMON NORMALS: atraumatic HEAD & SCALP: atraumatic MOUTH: moist mucous membranes not abnormal Eye: COMMON NORMALS: EOMs intact bilaterally and conjunctivae normal CONJUNCTIVA: Yes conjunctivae normal Neck/C-Spine: COMMON NORMALS: full ROM and supple Resp: COMMON NORMALS: normal respiratory effort and clear to auscultation bilaterally AUSCULTATION: clear to auscultation bilaterally Cardio: COMMON NORMALS: regular rate RATE: regular rate OTHER: 2+ radial pulses b/l GI: COMMON NORMALS: Soft to palpation and non-tender PALPATION: Yes Soft to palpation Extremity: COMMON NORMALS: full ROM Neuro: SENSORIUM/ORIENTATION: Yes alert MOTOR EXAM: No Abnormal motor strength present and Other motor observations present (no focal motor deficits) Psych: COMMON NORMALS: speech normal SPEECH: Yes normal speech MOOD & AFFECT: Yes euthymic mood Course Vital Signs: Vital signs: Vital Signs Temperature 99.0 F 10/18/21 17:52 Pulse Rate 88 10/18/21 20:39 Respiratory Rate 15 10/18/21 20:45 Blood Pressure 146/76 10/18/21 20:39 Pulse Oximetry 99 10/18/21 20:45 MDM - General Adult Medical Decision Making [46]yo patient w/ hx of CAD s/p stents x4 presenting to the ED with evaluation of new onset sharp chest pain x 1 day. HDS, pulse 2+ radially bilaterally, no signs of fluid overload, AAOx3, neuro exam intact. Workup: ECG x 2, CXR, CBC, BMP, Troponin x2 Interventions: Morphine, ASA, nitro, dilaudid Findings: ECG: No overt evidence of STEMI, hyperacute T waves, localizable STD or T wave inversions. No evidence of Brugada?s sign, delta wave, epsilon wave, significantly prolonged QTc, or malignant arrhythmia. No Q waves. Other Labs unremarkable for emergent problems. CXR: Without PTX, PNA, or widened mediastinum Last Heart Catheterization: 09/03/2021 CTA negative for PE or dissection On reassessment, the patient is HDS, no complaints of persistent chest pain in the ED after evaluation after receiving opiate medication and ASA in the ED. ECG is non-ischemic. Workup today is unremarkable. Doubt ACS/PE or other emergent causes of chest pain. He has a cath study from 09/03/2021 with negative findings. Troponin x2 within normal limit. He tells me that he feels significantly improved would like to go home. At 9:09pm, I performed a shared decision making with patient for ED admission for observation versus close outpatient follow-up. I offered admission for observation given his extensive cardiac hx. However, patient elects for close follow-up with cardiology declined to come into the hospital. I explained to patient that he is risk is not 0 despite the fact that he has a normal cath report. Patient elects to go home at this time. He verbalized understanding risk and possible , DC and dysrhythmia. Patient is instructed come back to the emergency room should he have any new complaints of chest pain at any point time. Patient elects to go home and I have given patient close follow-up with cardiology outpatient for further evaluation of chest pain. Given patient's significant risk, reiterated that is better for patient to be admitted to the hospital for observation given significant pain. Patient elects to sign out AGAINST MEDICAL ADVICE at this time. Patient counseled regarding risks of leaving including severe morbidity, brain , hypoxia, arrythmia, , chest pain, or any other unwanted consequences of leaving against medical advice today. Patient verbalizes understanding of the risks and still wishes to leave AMA. Signed AMA paperwork. Patient advised that patient is welcome to return at any time. Was instructed that patient may come back if symptoms continue to persist and that emergent adverse conditions have not fully been ruled out. Patient is A&Ox3 and has capacity and is of sound mind to make decisions. I have given patient follow up with our case management specialist to be seen by our outpatient Cardiology for chest pain. Patient aware of a call from our case management specialist to schedule for appointment(s) and verbalizes understanding of the importance of following up. Disposition: AMA Lab Data : 10/18/21 18:10 10/18/21 18:10 Radiology Impressions Chest X-Ray 10/18/21 17:51 IMPRESSION: No acute findings. Chest CTA 10/18/21 19:37 IMPRESSION: 1. There is calcified plaque in the coronary arteries. No evidence for pulmonary embolus. 2. There is thickening of the distal esophagus consistent with nonspecific esophagitis. Laboratory Results WBC 8.1 10^3/uL (4.0-10.0) 10/18/21 18:10 RBC 4.98 10^6/uL (4.1-5.3) 10/18/21 18:10 Hgb 11.7 g/dL (11.7-16.6) 10/18/21 18:10 Hct 36.3 % (42.0-52.0) L 10/18/21 18:10 MCV 72.9 fl (80-94) L 10/18/21 18:10 MCH 23.5 pg (28.0-34.0) L 10/18/21 18:10 MCHC 32.2 g/dL (30.0-36.0) 10/18/21 18:10 RDW 15.3 % (12.1-15.1) H 10/18/21 18:10 Plt Count 319 10^3/cmm (130-400) 10/18/21 18:10 MPV 12.2 fL (7.4-10.4) H 10/18/21 18:10 Neut % (Auto) 58.4 % 10/18/21 18:10 Lymph % (Auto) 26.2 % 10/18/21 18:10 Johnston % (Auto) 10.8 % 10/18/21 18:10 Eos % (Auto) 3.6 % 10/18/21 18:10 Baso % (Auto) 0.6 % 10/18/21 18:10 Neut # (Auto) 4.74 10^3/uL (1.8-7.7) 10/18/21 18:10 Lymph # (Auto) 2.1 10^3/uL (0.8-4.8) 10/18/21 18:10 Johnston # (Auto) 0.9 10^3/uL (0.2-0.9) 10/18/21 18:10 Eos # (Auto) 0.3 10^3/uL (0.0-0.8) 10/18/21 18:10 Baso # (Auto) 0.1 10^3/uL (0.0-0.1) 10/18/21 18:10 Nucleated RBC % (auto) 0 % 10/18/21 18:10 Nucleated RBCs # 0.0 /100WBC 10/18/21 18:10 Sodium 136 mmol/L (136-145) 10/18/21 18:10 Potassium 4.3 mmol/L (3.5-5.1) 10/18/21 18:10 Chloride 103 mmol/L (98-107) 10/18/21 18:10 Carbon Dioxide 21 mmol/L (22-29) L 10/18/21 18:10 Anion Gap 16.3 (5-19) 10/18/21 18:10 BUN 15 mg/dL (6-20) 10/18/21 18:10 Creatinine 0.8 mg/dL (0.7-1.2) 10/18/21 18:10 GFR Calculation 105.0 mL/min (90-130) 10/18/21 18:10 Glucose 95 mg/dL (65-115) 10/18/21 18:10 Calculated Osmolality 283 mOsm/kg (285-295) L 10/18/21 18:10 Calcium 8.6 mg/dL (8.5-10.5) 10/18/21 18:10 Troponin T Baseline 13 ng/L (0-15) 10/18/21 18:10 Troponin T 120 Minute 14.29 ng/L (0-15) 10/18/21 19:59 Delta Troponin T Not Reportable 10/18/21 19:59 Imaging Data Other Imaging: Radiologist's impression: [id number] [address] [address] Scan Report Signed Patient: Alonso June Unit #: [id number] : 1975 Age/Sex: 46 / M ADM Date: 10/18/21 Loc: ER Room/Bed: Attending Dr: Ordering Provider/Ordering MD: Edwige Crystal MD Date of Service: 10/18/21 Procedure(s): CT angio chest PE protcl [id number] Accession Number(s): [id number] Report Number: [id number] PROCEDURE INFORMATION: Exam: CTA Chest With Contrast Exam date and time: 10/18/2021 8:10 PM Age: 46 years old Clinical indication: Sternal or substernal pain; C/O chest pain TECHNIQUE: Imaging protocol: Computed tomographic angiography of the chest with contrast. 3D rendering (Not supervised by radiologist): MIP and/or 3D reconstructed images were created by the technologist. Radiation optimization: All CT scans at this facility use at least one of these dose optimization techniques: automated exposure control; mA and/or kV adjustment per patient size (includes targeted exams where dose is matched to clinical indication); or iterative reconstruction. Contrast material: VISI 320; Contrast volume: 68 ml; Contrast route: INTRAVENOUS (IV);? COMPARISON: CT angio chest PE protcl [id number] 09/11/2021 7:57 AM RADIATION DOSE METRICS: Total DLP (mGy-cm): 526.38 FINDINGS: Pulmonary arteries: Normal. No pulmonary emboli. Aorta: Unremarkable. No aortic aneurysm. No aortic dissection. Lungs: Unremarkable. No consolidation. No masses. Pleural spaces: Unremarkable. No pneumothorax. No pleural effusion. Heart: There is calcified plaque in the coronary arteries similar to the prior CT scan. Mediastinal space: There is mucosal thickening of the distal esophagus. Lymph nodes: Unremarkable. No enlarged lymph nodes. Bones/joints: Unremarkable. No acute fracture. Soft tissues: Unremarkable. CT/CT angio chest PE protcl [id number] IMPRESSION: 1. There is calcified plaque in the coronary arteries. No evidence for pulmonary embolus. 2. There is thickening of the distal esophagus consistent with nonspecific esophagitis. ? Dictated By: Jud Skinner MD Signed By: Jud Skinner MD Signed Date/Time: 10/18/212024 DD/ [address] [address] XRay Report Signed Patient: Alonso June Unit #: [id number] : 1975 Age/Sex: 46 / M ADM Date: 10/18/21 Loc: ER Room/Bed: Attending Dr: Ordering Provider/Ordering MD: Edwige Crystal MD Date of Service: 10/18/21 Procedure(s): XR chest 1V portable [id number] Accession Number(s): [id number] Report Number: [id number] PROCEDURE INFORMATION: Exam: XR Chest Exam date and time: 10/18/2021 6:18 PM Age: 46 years old Clinical indication: Pain; Chest pressure; Additional info: Chest pain TECHNIQUE: Imaging protocol: XR of the chest. Views: 1 view. COMPARISON: CR (CHEST, ) 10/13/2021 9:53 PM FINDINGS: Lungs: Unremarkable. No consolidation. Pleural spaces: Unremarkable. No pleural effusion. No pneumothorax. Heart/Mediastinum: Unremarkable. No cardiomegaly. Bones/joints: Unremarkable. XR/XR chest 1V portable [id number] IMPRESSION: No acute findings. ? Dictated By: Jud Skinner MD Signed By: Jud Skinner MD Signed Date/Time: 10/18/211916 DD/ 17 Discharge Plan Discharge Patient Disposition: Left Against Medical Advice Clinical Impression: Chest pain Condition: Stable Prescriptions: No Action efnsfphrea-sjdtcdupamupj-ulkc 50-325-40 mg tablet 2 tab PO BID PRN (Reason: Migraine Headache) 0RF Hold Instructions: interaction with aspirin insulin aspart U-100 [Novolog Flexpen U-100 Insulin] 100 unit/mL (3 mL) insulin pen See Rx Instructions .ROUTE .COMPLEX Qty: 15 0RF Hold Instructions: See PCP Rx Instructions: Inject, 3 times daily, after meals, based on sliding scale provided Lantus Solostar U-100 Insulin 100 unit/mL (3 mL) Insulin Pen 5 unit SUBCUT DAILY Qty: 15 0RF Hold Instructions: See PCP Lantus Solostar U-100 Insulin 100 unit/mL (3 mL) insulin pen 5 unit SUBCUT DAILY Qty: 15 0RF Hold Instructions: See PCP insulin aspart U-100 [Novolog Flexpen U-100 Insulin] 100 unit/mL (3 mL) insulin pen 1 unit SUBCUT TID Qty: 3 0RF Hold Instructions: See PCP Rx Instructions: Inject 3 times daily after meals based on sliding scale. isosorbide mononitrate 60 mg tablet extended release 24 hr 60 mg PO BID Qty: 60 0RF Hold Instructions: see pcp ondansetron 4 mg tablet,disintegrating 4 mg PO Q6H PRN (Reason: nausea and vomiting) Qty: 14 0RF ProAir HFA 90 mcg/actuation HFA aerosol inhaler 2 puff INHALATION Q4H PRN (Reason: Shortness Of Breath) 1 Days Qty: 30 0RF carvedilol 3.125 mg Tablet 3.125 mg PO Q12H 30 Days Qty: 60 1RF escitalopram oxalate 10 mg Tablet 10 mg PO DAILY 30 Days Qty: 30 1RF aripiprazole 10 mg Tablet 5 mg PO DAILY 30 Days Qty: 30 1RF atorvastatin 40 mg tablet 40 mg PO BEDTIME 30 Days Qty: 30 1RF ondansetron HCl 4 mg tablet 4 mg PO Q8H PRN (Reason: Nausea And Vomiting) 30 Days Qty: 60 1RF clopidogrel 75 mg tablet 75 mg PO QAM 30 Days Qty: 30 1RF aspirin 81 mg Tablet,Delayed Release (Dr/Ec) 81 mg PO QAM 30 Days Qty: 30 1RF Protonix 40 mg tablet,delayed release (DR/EC) 40 mg PO DAILY 30 Days Qty: 30 1RF Nitrostat 0.4 mg Tablet, Sublingual 0.4 mg SUBLINGUAL Q5M PRN (Reason: Chest Pain) 30 Days Qty: 60 1RF Rx Instructions: do not exceed 3 doses per episode ranolazine 500 mg tablet extended release 12 hr 500 mg PO BID 30 Days Qty: 60 1RF Discharge Orders: Discharge ED (Routine); Ordered 10/18/21 Ordered By: Edwige Crystal Discharge Diet: Advance as tolerated Discharge Activity: Increase activity as tolerated Activity Restrictions/Additional Instructions: Come back to the emergency room if your chest pain worsens, have any fever or chills, worsening shortness of breath, worsening exertional lightheadedness, or any new or concerning complaints. Our case management specialist will have you follow-up with Cardiology in the next few days. You would be expected to have a phone call with our case management specialist who will put you on the schedule. You can expect a call from us in the next 2-3 days. If you don't hear from us, call us back in the emergency room at [phone]. Coding Level of Care Code ED Police Sergeant for Marcelino Fwmacy Exam Comprehensive
--- NOTE | 2021-10-18 19:37 | CTR_ITS ---
PROCEDURE INFORMATION: Exam: CTA Chest With Contrast Exam date and time: 10/18/2021 8:10 PM Age: 46 years old Clinical indication: Sternal or substernal pain; C/O chest pain TECHNIQUE: Imaging protocol: Computed tomographic angiography of the chest with contrast. 3D rendering (Not supervised by radiologist): MIP and/or 3D reconstructed images were created by the technologist. Radiation optimization: All CT scans at this facility use at least one of these dose optimization techniques: automated exposure control; mA and/or kV adjustment per patient size (includes targeted exams where dose is matched to clinical indication); or iterative reconstruction. Contrast material: VISI 320; Contrast volume: 68 ml; Contrast route: INTRAVENOUS (IV); COMPARISON: CT angio chest PE protcl [id number] 09/11/2021 7:57 AM RADIATION DOSE METRICS: Total DLP (mGy-cm): 526.38 FINDINGS: Pulmonary arteries: Normal. No pulmonary emboli. Aorta: Unremarkable. No aortic aneurysm. No aortic dissection. Lungs: Unremarkable. No consolidation. No masses. Pleural spaces: Unremarkable. No pneumothorax. No pleural effusion. Heart: There is calcified plaque in the coronary arteries similar to the prior CT scan. Mediastinal space: There is mucosal thickening of the distal esophagus. Lymph nodes: Unremarkable. No enlarged lymph nodes. Bones/joints: Unremarkable. No acute fracture. Soft tissues: Unremarkable. CT/CT angio chest PE protcl [id number] IMPRESSION: 1. There is calcified plaque in the coronary arteries. No evidence for pulmonary embolus. 2. There is thickening of the distal esophagus consistent with nonspecific esophagitis.
[2021-10-18] MEDS: diphenhydrAMINE 50 mg/mL SDV 1mL IVP (19:50)
--- NOTE | 2021-10-18 19:52 | ECG_ITS ---
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 Measurements Intervals [place] Rate: 85 P: 58 SD: 146 QRS: 59 QRSD: 84 T: 40 QT: 339 QTc: 404 Interpretive Statements SINUS RHYTHM MODERATE VOLTAGE CRITERIA FOR LVH, CONSIDER NORMAL VARIANT [MEETS CRITERIA IN ONE OF: R(aVL), S(V1), R(V5), R(V5/V6)+S(V1)] Compared to ECG 10/18/2021 17:57:06 Sinus tachycardia no longer present Electronically Signed On 10-19-2021 8:23:55 CDT by Richie Macias M.D. [email or web address]
[2021-10-18] MEDS: iodixanol 320 mg/mL 100mL Btl IV (20:10)
[2021-10-18 20:27] LABS: Troponin 5 2HR 14.29 ng/L (0-15)
[2021-10-18 20:39] VITALS: BP 146/76; PULSE 88; RESP 15; O2SAT 97
[2021-10-18 20:45] VITALS: RESP 15; O2SAT 99
[2021-10-18] MEDS: HYDROmorphone 1 mg/mL INJ 1 mL 0.5 MG IVP (20:45)
--- NOTE | 2021-10-18 21:29 | PC.NURSE ---
Patient sign AMA, nurse was busy so patient signed AMA with Dr Crystal.
[2021-10-18 21:38] VITALS: BP 137/75; PULSE 87; RESP 15; TEMP 36.6; O2SAT 97
[2021-10-18 21:39] VITALS: RESP 15; O2SAT 97
[2021-10-18] MEDS: oxyCODONE-APAP 5-325 mg Tablet 1 TAB PO (21:39)
--- NOTE | 2021-10-20 11:53 | DCPLANNER ---
Addendum entered by Linda Payne 11/06/21 18:52: Patient attended appointment scheduled for 11.04.21 with [facility]. Addendum entered by Linda Payne 10/30/21 19:24: Appointment rescheduled for 11.04.21 with Isabelle Pedraza. Addendum entered by Linda Payne 10/20/21 13:26: Patient has a follow up appointment scheduled for Thursday, October 28, 2021 at 1:15 with RING ATTACHER, Isabelle Pedraza. manager demand called patient with appointment information, was unable to speak with patient at this time. A voicemail was left for patient to return top case assembler phone call. Original Note: manager demand had message to schedule a follow up appointment for patient with [facility]. manager demand sent patients information to the front office staff at heart [facility]. Patients information will be printed and reviewed. Clinic will call patient with appointment information.
== END 2021-10-18 21:47 | disposition left against medical advice (07) ==
PROVIDERS: Emergency Provider Emergency Medicine
DX: R07.9 Chest pain, unspecified (principal); Z87.891 Personal history of nicotine dependence; Z53.29 Procedure and treatment not carried out because of patient's decision for other reasons; Z79.4 Long term (current) use of insulin; Z79.02 Long term (current) use of antithrombotics/antiplatelets; Z79.82 Long term (current) use of aspirin
CPT/HCPCS: 71045; 71275; 80048; 84484; 85025; 93005; 96374; 96375; 99284; J1170; J1200; J2930; Q9967

== ENCOUNTER 2021-10-19 23:40 | Emergency (ER) | payer MEDICAID, SELFPAY ==
[2021-10-19 23:56] VITALS: BP 127/76; PULSE 99; RESP 14; TEMP 36.5; O2SAT 100; BMI 23.3
--- NOTE | 2021-10-20 00:12 | XRR_ITS ---
PROCEDURE INFORMATION: Exam: XR Chest Exam date and time: 10/20/2021 12:26 AM Age: 46 years old Clinical indication: Angina and dyspnea; Patient HX: SOB chest pressure today; Additional info: Cp TECHNIQUE: Imaging protocol: XR of the chest. Views: 1 view. COMPARISON: CR XR chest 1V portable [id number] 10/18/2021 6:18 PM FINDINGS: Lungs: Lungs are clear. Pleural spaces: There is no pleural effusion or pneumothorax. Heart/Mediastinum: Cardiomediastinal contours are unremarkable. Bones/joints: Bones are unremarkable. XR/XR chest 1V portable [id number] IMPRESSION: No acute findings.
--- NOTE | 2021-10-20 00:13 | ECG_ITS ---
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 Measurements Intervals [place] Rate: 103 P: 72 GA: 145 QRS: 72 QRSD: 79 T: 49 QT: 312 QTc: 410 Interpretive Statements SINUS TACHYCARDIA VOLTAGE CRITERIA FOR LVH [MEETS CRITERIA IN ONE OF: R(aVL), S(V1), R(V5), R(V5/V6)+S(V1)] Compared to ECG 10/18/2021 19:49:19 Sinus rhythm no longer present Electronically Signed On 10-20-2021 16:30:16 CDT by Richie Macias M.D. [id number]
--- NOTE | 2021-10-20 00:16 | ED_ITS ---
Documented by User: OFELIA Ram 10/20/21 02:57 HPI - Chest Pain General: Chief Complaint: Chest Pain Stated Complaint: head hurts, chest hurts Time Seen by Provider: 10/20/21 00:04 History of Present Illness: Patient is a 46-year-old male who comes to the ED with headache and chest pains. Patient has been seen here in the ED 5 times over the past 10 days for similar complaintand his most recent visit was on October 18. Symptoms started tonight just after work. He rates his headache at 10 out of 10 and pain is at the top of his head. Lights make symptoms worse. Denies any other neurological symptoms. He is also complaining of some chest pain on the left side. All symptoms started tonight after work as well. He rates that pain currently an 8 out of 10. He describes it as his chest is about to explode. Symptoms started while up and ambulating. Denies any shortness of breath, nausea, vomiting, bladder or bowel symptoms. Patient has an appointment with his primary care physician this coming week. Associated symptoms: Deny abdominal pain, dyspnea, fever(s), nausea, palpitations or vomiting Review of Systems Const: Denies: fever(s), chills or fatigue Eyes: Denies: change in vision or eye discomfort ENMT: Denies: throat pain, odynophagia, nasal discharge or nasal congestion Card: Reports: chest pain; Denies: palpitations, edema, swelling of feet/ankles, dyspnea on exertion or orthopnea Resp: Denies: dyspnea, productive cough or non-productive cough GI: Denies: abdominal pain, nausea, vomiting, diarrhea, constipation or hematochezia : Denies: flank pain, difficulty urinating, dysuria or hematuria Musc: Denies: neck pain, back pain or extremity swelling Skin/Breast: Denies: rash or new lesions Neuro: Reports: headache(s); Denies: numbness in extremities or weakness in extremities PFSH ED PFSH: Medical History Atherosclerotic heart disease of [place] coronary artery with unstable angina pectoris Benign essential HTN CAD (coronary artery disease) 9stents Chest pain CVA (cerebrovascular accident) Diabetes Dyslipidemia (high LDL; low HDL) Former smoker HTN (hypertension) Surgical History History of appendectomy Family History Other No pertinent family history Social History Smoking and tobacco status: former smoker Alcohol intake: never Housing: House Physical Exam Const: COMMON NORMALS: no acute distress, patient oriented x3 and alert GENERAL APPEARANCE: cooperative and comfortable HENMT: COMMON NORMALS: normocephalic HEAD & SCALP: normocephalic MOUTH: Normal oral and palatal mucosa present THROAT: posterior oropharynx normal and uvula midline Neck/C-Spine: COMMON NORMALS: supple GENERAL: Yes normal visual inspection Resp: COMMON NORMALS: normal respiratory effort, No retractions, No use of accessory muscles and clear to auscultation bilaterally AUSCULTATION: clear to auscultation bilaterally Cardio: COMMON NORMALS: regular rate, regular rhythm, S1 normal heart sound present, S2 normal heart sound present, No gallops present (Cardio), No clicks present (Cardio), No murmurs present (Cardio) and Peripheral pulses 2+ throughout RATE: regular rate RHYTHM: regular rhythm HEART SOUNDS: S1 normal heart sound present and S2 normal heart sound present PERIPHERAL PULSES: Peripheral pulses 2+ throughout GI: COMMON NORMALS: Normal to inspection, nondistended, normoactive bowel sounds present, Soft to palpation, non-tender and no masses PALPATION: Yes Soft to palpation : COMMON NORMALS: Yes no CVA tenderness BLADDER/KIDNEY EXAM: Yes no CVA tenderness Back/Pelvis: COMMON NORMALS: no CVA tenderness Extremity: COMMON NORMALS: normal to inspection and no pedal edema Neuro: COMMON NORMALS: patient oriented x3, CN's II-XII intact bilaterally, moves all extremities, no focal motor deficits and no sensory deficits noted SENSORIUM/ORIENTATION: Yes alert SENSORY EXAM: Yes extremities (intact) MOTOR EXAM: 5/5 motor strength present throughout Skin: GENERAL SKIN EXAM: dry skin Course Reevaluation(s): Reevaluation #1: Patient's headache and chest pain had improved greatly after IV pain meds. He is stable and ready for discharge home. Time: 01:45 Vital Signs: Vital signs: Vital Signs Temperature 97.7 F 10/19/21 23:56 Pulse Rate 82 10/20/21 02:00 Respiratory Rate 19 H 10/20/21 02:00 Blood Pressure 146/71 10/20/21 02:00 Pulse Oximetry 100 10/20/21 02:00 MDM - Chest Pain Medical Decision Making Patient is a 46-year-old male that comes to the ED with chest pain and a headache. He has been seen here in the ED multiple times for same complaint over the last 10 days. His most recent visit in the ED was October 18 for same complaint. Vitals are stable. Patient appears nontoxic and in no acute distress. Exam is benign and neuro exam showed no deficits. Troponins negative. EKG showed no acute findings. Potassium 3.3 and patient was given some p.o. potassium chloride while here in the ED. Rest of labs were unremarkable. Chest x-ray showed no acute findings. Patient's headache and vandana st pain had improved greatly after IV pain meds. He is stable and ready for discharge home. Patient was diagnosed with atypical chest pain headache and was told to follow-up with his PCP at next scheduled appointment which he says is this coming week. Return ED precautions given. Patient understood and agreed with plan. Lab Data I reviewed the patient's lab results. : 10/20/21 00:33 10/20/21 00:33 Radiology Impressions Chest X-Ray 10/20/21 00:12 IMPRESSION: No acute findings. Laboratory Results WBC 12.0 10^3/uL (4.0-10.0) H 10/20/21 00:33 RBC 4.54 10^6/uL (4.1-5.3) 10/20/21 00:33 Hgb 10.7 g/dL (11.7-16.6) L 10/20/21 00:33 Hct 33.0 % (42.0-52.0) L 10/20/21 00:33 MCV 72.7 fl (80-94) L 10/20/21 00:33 MCH 23.6 pg (28.0-34.0) L 10/20/21 00:33 MCHC 32.4 g/dL (30.0-36.0) 10/20/21 00:33 RDW 15.1 % (12.1-15.1) 10/20/21 00:33 Plt Count 298 10^3/cmm (130-400) 10/20/21 00:33 MPV 12.0 fL (7.4-10.4) H 10/20/21 00:33 Neut % (Auto) 65.8 % 10/20/21 00:33 Lymph % (Auto) 21.6 % 10/20/21 00:33 [place] % (Auto) 11.2 % 10/20/21 00:33 Eos % (Auto) 0.8 % 10/20/21 00:33 Baso % (Auto) 0.3 % 10/20/21 00:33 Neut # (Auto) 7.89 10^3/uL (1.8-7.7) H 10/20/21 00:33 Lymph # (Auto) 2.6 10^3/uL (0.8-4.8) 10/20/21 00:33 [place] # (Auto) 1.3 10^3/uL (0.2-0.9) H 10/20/21 00:33 Eos # (Auto) 0.1 10^3/uL (0.0-0.8) 10/20/21 00:33 Baso # (Auto) 0.0 10^3/uL (0.0-0.1) 10/20/21 00:33 Nucleated RBC % (auto) 0 % 10/20/21 00: Nucleated RBCs # 0.0 /100WBC 10/20/21 00:33 Sodium 141 mmol/L (136-145) 10/20/21 00:33 Potassium 3.3 mmol/L (3.5-5.1) L 10/20/21 00: Chloride 105 mmol/L (98-107) 10/20/21 00:33 Carbon Dioxide 22 mmol/L (22-29) 10/20/21 00:33 Anion Gap 17.3 (5-19) 10/20/21 00:33 BUN 22 mg/dL (6-20) H 10/20/21 00:33 Creatinine 0.9 mg/dL (0.7-1.2) 10/20/21 00:33 GFR Calculation 91.7 mL/min (90-130) 10/20/21 00:33 Glucose 174 mg/dL (65-115) H 10/20/21 00:33 Calculated Osmolality 300 mOsm/kg (285-295) H 10/20/21 00:33 Calcium 8.1 mg/dL (8.5-10.5) L 10/20/21 00:33 Total Bilirubin 0.2 mg/dL (0.15-1.2) 10/20/21 00:33 AST 9 U/L (0-40) 10/20/21 00:33 ALT 8 U/L (0-41) 10/20/21 00:33 Alkaline Phosphatase 80 IU/L (40-130) 10/20/21 00:33 Troponin T Baseline 19 ng/L (0-15) H 10/20/21 00:33 Troponin T 120 Minute 18.64 ng/L (0-15) H 10/20/21 00:00 Delta Troponin T Not Reportable 10/20/21 00:00 Total Protein 6.7 g/dL (6.6-8.7) 10/20/21 00:33 Albumin 4.3 g/dL (3.5-5.2) 10/20/21 00:33 Globulin 2.4 g/dL (1.3-4.6) 10/20/21 00:33 EKG Data EKG 1: EKG interpretation date: 10/19/21 Interpretation: Sinus tachycardia, 103 bpm, no ST segment elevation or depression seen. EKG 2: EKG interpretation date: 10/20/21 Interpretation: Sinus rhythm, 83 bpm, no ST segment elevation or depression seen. No acute changes comparing previous EKG. Discharge Plan Discharge Patient Disposition: Home Clinical Impression: Atypical chest pain Headache Qualifiers: Headache type: unspecified Headache chronicity pattern: acute headache Intractability: not intractable Qualified Code(s): R51.9 - Headache, unspecified Condition: Stable Prescriptions: No Action ckdehwsmyb-xededptufxhez-vptt 50-325-40 mg tablet 2 tab PO BID PRN (Reason: Migraine Headache) 0RF Hold Instructions: interaction with aspirin insulin aspart U-100 [Novolog Flexpen U-100 Insulin] 100 unit/mL (3 mL) insulin pen See Rx Instructions .ROUTE .COMPLEX Qty: 15 0RF Hold Instructions: See PCP Rx Instructions: Inject, 3 times daily, after meals, based on sliding scale provided Lantus Solostar U-100 Insulin 100 unit/mL (3 mL) Insulin Pen 5 unit SUBCUT DAILY Qty: 15 0RF Hold Instructions: See PCP Lantus Solostar U-100 Insulin 100 unit/mL (3 mL) insulin pen 5 unit SUBCUT DAILY Qty: 15 0RF Hold Instructions: See PCP insulin aspart U-100 [Novolog Flexpen U-100 Insulin] 100 unit/mL (3 mL) insulin pen 1 unit SUBCUT TID Qty: 3 0RF Hold Instructions: See PCP Rx Instructions: Inject 3 times daily after meals based on sliding scale. isosorbide mononitrate 60 mg tablet extended release 24 hr 60 mg PO BID Qty: 60 0RF Hold Instructions: see pcp ondansetron 4 mg tablet,disintegrating 4 mg PO Q6H PRN (Reason: nausea and vomiting) Qty: 14 0RF ProAir HFA 90 mcg/actuation HFA aerosol inhaler 2 puff INHALATION Q4H PRN (Reason: Shortness Of Breath) 1 Days Qty: 30 0RF carvedilol 3.125 mg Tablet 3.125 mg PO Q12H 30 Days Qty: 60 1RF escitalopram oxalate 10 mg Tablet 10 mg PO DAILY 30 Days Qty: 30 1RF aripiprazole 10 mg Tablet 5 mg PO DAILY 30 Days Qty: 30 1RF atorvastatin 40 mg tablet 40 mg PO BEDTIME 30 Days Qty: 30 1RF ondansetron HCl 4 mg tablet 4 mg PO Q8H PRN (Reason: Nausea And Vomiting) 30 Days Qty: 60 1RF clopidogrel 75 mg tablet 75 mg PO QAM 30 Days Qty: 30 1RF aspirin 81 mg Tablet,Delayed Release (Dr/Ec) 81 mg PO QAM 30 Days Qty: 30 1RF Protonix 40 mg tablet,delayed release (DR/EC) 40 mg PO DAILY 30 Days Qty: 30 1RF Nitrostat 0.4 mg Tablet, Sublingual 0.4 mg SUBLINGUAL Q5M PRN (Reason: Chest Pain) 30 Days Qty: 60 1RF Rx Instructions: do not exceed 3 doses per episode ranolazine 500 mg tablet extended release 12 hr 500 mg PO BID 30 Days Qty: 60 1RF Discharge Orders: Discharge ED (Routine); Ordered 10/20/21 Ordered By: Haider Fan Discharge Diet: Regular Discharge Activity: Increase activity as tolerated Patient Instructions: Chest Pain (ED), Acute Headache (DC) Activity Restrictions/Additional Instructions: Follow-up with medical provider as directed in the next 3 to 5 days for reevaluation. Continue taking all home medications as previously prescribed. Return to the ER or your medical provider if condition worsens. Please read and understand discharge instructions. Thank you for choosing [facility] for your healthcare needs today. Please realize this is an emergency room and that we are providing you with a medical screening exam and this may not be complete and all inclusive of all the testing and or work up that you may need to determine your ailment or severity of your illness. It is very important that you follow up as instructed or that you return to the Emergency Department should you have concerns or if your condition changes or worsens in any way. Stand Alone Forms: Work/School Release Coding Level of Care Code ED Soybean Grower for Chg Fwd Exam Comprehensive Documented by User: Pete Noguera DO 10/20/21 04:25 HPI - Chest Pain General: Chief Complaint: Chest Pain Stated Complaint: head hurts, chest hurts Time Seen by Provider: 10/20/21 00:04 [facility] ED PFSH: Medical History Atherosclerotic heart disease of [place] coronary artery with unstable angina pectoris Benign essential HTN CAD (coronary artery disease) 9stents Chest pain CVA (cerebrovascular accident) Diabetes Dyslipidemia (high LDL; low HDL) Former smoker HTN (hypertension) Surgical History History of appendectomy Family History Other No pertinent family history Social History Smoking and tobacco status: former smoker Alcohol intake: never Housing: House Course Vital Signs: Vital signs: Vital Signs Temperature 97.7 F 10/19/21 23:56 Pulse Rate 82 10/20/21 02:00 Respiratory Rate 19 H 10/20/21 02:00 Blood Pressure 146/71 10/20/21 02:00 Pulse Oximetry 100 10/20/21 02:00 MDM - Chest Pain Medical Decision Making Patient is a 46-year-old male that comes to the ED with chest pain and a headache. He has been seen here in the ED multiple times for same complaint over the last 10 days. His most recent visit in the ED was October 18 for same complaint. Vitals are stable. Patient appears nontoxic and in no acute distress. Exam is benign and neuro exam showed no deficits. Troponins negative. EKG showed no acute findings. Potassium 3.3 and patient was given some p.o. potassium chloride while here in the ED. Rest of labs were unremarkable. Chest x-ray showed no acute findings. Patient's headache and chest pain had improved greatly after IV pain meds. He is stable and ready for discharge home. Patient was diagnosed with atypical chest pain headache and was told to follow-up with his PCP at next scheduled appointment which he says is this coming week. Return ED precautions given. Patient understood and agreed with plan. This patient was originally seen by Mr. Meng PA-C.? I agree with his history, evaluation, and treatment. Lab Data : 10/20/21 00:33 10/20/21 00:33 Radiology Impressions Chest X-Ray 10/20/21 00:12 IMPRESSION: No acute findings. Laboratory Results WBC 12.0 10^3/uL (4.0-10.0) H 10/20/21 00:33 RBC 4.54 10^6/uL (4.1-5.3) 10/20/21 00:33 Hgb 10.7 g/dL (11.7-16.6) L 10/20/21 00:33 Hct 33.0 % (42.0-52.0) L 10/20/21 00:33 MCV 72.7 fl (80-94) L 10/20/21 00:33 MCH 23.6 pg (28.0-34.0) L 10/20/21 00:33 MCHC 32.4 g/dL (30.0-36.0) 10/20/21 00:33 RDW 15.1 % (12.1-15.1) 10/20/21 00:33 Plt Count 298 10^3/cmm (130-400) 10/20/21 00:33 MPV 12.0 fL (7.4-10.4) H 10/20/21 00:33 Neut % (Auto) 65.8 % 10/20/21 00:33 Lymph % (Auto) 21.6 % 10/20/21 00:33 [place] % (Auto) 11.2 % 10/20/21 00:33 Eos % (Auto) 0.8 % 10/20/21 00:33 Baso % (Auto) 0.3 % 10/20/21 00:33 Neut # (Auto) 7.89 10^3/uL (1.8-7.7) H 10/20/21 00:33 Lymph # (Auto) 2.6 10^3/uL (0.8-4.8) 10/20/21 00:33 [place] # (Auto) 1.3 10^3/uL (0.2-0.9) H 10/20/21 00:33 Eos # (Auto) 0.1 10^3/uL (0.0-0.8) 10/20/21 00:33 Baso # (Auto) 0.0 10^3/uL (0.0-0.1) 10/20/21 00:33 Nucleated RBC % (auto) 0 % 10/20/21 00: Nucleated RBCs # 0.0 /100WBC 10/20/21 00:33 Sodium 141 mmol/L (136-145) 10/20/21 00:33 Potassium 3.3 mmol/L (3.5-5.1) L 10/20/21 00:33 Chloride 105 mmol/L (98-107) 10/20/21 00: Carbon Dioxide 22 mmol/L (22-29) 10/20/21 00:33 Anion Gap 17.3 (5-19) 10/20/21 00:33 BUN 22 mg/dL (6-20) H 10/20/21 00:33 Creatinine 0.9 mg/dL (0.7-1.2) 10/20/21 00: GFR Calculation 91.7 mL/min (90-130) 10/20/21 00:33 Glucose 174 mg/dL (65-115) H 10/20/21 00:33 Calculated Osmolality 300 mOsm/kg (285-295) H 10/20/21 00:33 Calcium 8.1 mg/dL (8.5-10.5) L 10/20/21 00:33 Total Bilirubin 0.2 mg/dL (0.15-1.2) 10/20/21 00:33 AST 9 U/L (0-40) 10/20/21 00:33 ALT 8 U/L (0-41) 10/20/21 00:33 Alkaline Phosphatase 80 IU/L (40-130) 10/20/21 00:33 Troponin T Baseline 19 ng/L (0-15) H 10/20/21 00:33 Troponin T 120 Minute 18.64 ng/L (0-15) H 10/20/21 00:00 Delta Troponin T Not Reportable 10/20/21 00:00 Total Protein 6.7 g/dL (6.6-8.7) 10/20/21 00:33 Albumin 4.3 g/dL (3.5-5.2) 10/20/21 00:33 Globulin 2.4 g/dL (1.3-4.6) 10/20/21 00:33 Discharge Plan Discharge Patient Disposition: Home Clinical Impression: Atypical chest pain Headache Qualifiers: Headache type: unspecified Headache chronicity pattern: acute headache Intractability: not intractable Qualified Code(s): R51.9 - Headache, unspecified Condition: Stable Prescriptions: No Action cnzwoymeqg-wcwuvzipxefsm-uhmf 50-325-40 mg tablet 2 tab PO BID PRN (Reason: Migraine Headache) 0RF Hold Instructions: interaction with aspirin insulin aspart U-100 [Novolog Flexpen U-100 Insulin] 100 unit/mL (3 mL) insulin pen See Rx Instructions .ROUTE .COMPLEX Qty: 15 0RF Hold Instructions: See PCP Rx Instructions: Inject, 3 times daily, after meals, based on sliding scale provided Lantus Solostar U-100 Insulin 100 unit/mL (3 mL) Insulin Pen 5 unit SUBCUT DAILY Qty: 15 0RF Hold Instructions: See PCP Lantus Solostar U-100 Insulin 100 unit/mL (3 mL) insulin pen 5 unit SUBCUT DAILY Qty: 15 0RF Hold Instructions: See PCP insulin aspart U-100 [Novolog Flexpen U-100 Insulin] 100 unit/mL (3 mL) insulin pen 1 unit SUBCUT TID Qty: 3 0RF Hold Instructions: See PCP Rx Instructions: Inject 3 times daily after meals based on sliding scale. isosorbide mononitrate 60 mg tablet extended release 24 hr 60 mg PO BID Qty: 60 0RF Hold Instructions: see pcp ondansetron 4 mg tablet,disintegrating 4 mg PO Q6H PRN (Reason: nausea and vomiting) Qty: 14 0RF ProAir HFA 90 mcg/actuation HFA aerosol inhaler 2 puff INHALATION Q4H PRN (Reason: Shortness Of Breath) 1 Days Qty: 30 0RF carvedilol 3.125 mg Tablet 3.125 mg PO Q12H 30 Days Qty: 60 1RF escitalopram oxalate 10 mg Tablet 10 mg PO DAILY 30 Days Qty: 30 1RF aripiprazole 10 mg Tablet 5 mg PO DAILY 30 Days Qty: 30 1RF atorvastatin 40 mg tablet 40 mg PO BEDTIME 30 Days Qty: 30 1RF ondansetron HCl 4 mg tablet 4 mg PO Q8H PRN (Reason: Nausea And Vomiting) 30 Days Qty: 60 1RF clopidogrel 75 mg tablet 75 mg PO QAM 30 Days Qty: 30 1RF aspirin 81 mg Tablet,Delayed Release (Dr/Ec) 81 mg PO QAM 30 Days Qty: 30 1RF Protonix 40 mg tablet,delayed release (DR/EC) 40 mg PO DAILY 30 Days Qty: 30 1RF Nitrostat 0.4 mg Tablet, Sublingual 0.4 mg SUBLINGUAL Q5M PRN (Reason: Chest Pain) 30 Days Qty: 60 1RF Rx Instructions: do not exceed 3 doses per episode ranolazine 500 mg tablet extended release 12 hr 500 mg PO BID 30 Days Qty: 60 1RF Discharge Orders: Discharge ED (Routine); Ordered 10/20/21 Ordered By: Haider Fan Discharge Diet: Regular Discharge Activity: Increase activity as tolerated Patient Instructions: Chest Pain (ED), Acute Headache (DC) Activity Restrictions/Additional Instructions: Follow-up with medical provider as directed in the next 3 to 5 days for reevaluation. Continue taking all home medications as previously prescribed. Return to the ER or your medical provider if condition worsens. Please read and understand discharge instructions. Thank you for choosing [facility] for your healthcare needs today. Please realize this is an emergency room and that we are providing you with a medical screening exam and this may not be complete and all inclusive of all the testing and or work up that you may need to determine your ailment or severity of your illness. It is very important that you follow up as instructed or that you return to the Emergency Department should you have concerns or if your condition changes or worsens in any way. Stand Alone Forms: Work/School Release Coding Level of Care Code ED Soybean Grower for Marcelino Fwmacy Exam Comprehensive
[2021-10-20 00:32] VITALS: PULSE 83; RESP 15; O2SAT 100
[2021-10-20 00:39] LABS: Basophils % 0.3 %; Eosinophils # 0.1 10^3/uL (0.0-0.8); Eosinophils % 0.8 %; Hemoglobin 10.7 g/dL (11.7-16.6); Lymphocytes # 2.6 10^3/uL (0.8-4.8); Lymphocytes % 21.6 %; Mean Corpuscular HGB Conc 32.4 g/dL (30.0-36.0); Mean Corpuscular Hemoglobin 23.6 pg (28.0-34.0); Mean Corpuscular Volume 72.7 fl (80-94); Monocytes # 1.3 10^3/uL (0.2-0.9); Monocytes % 11.2 %; Neutrophils # 7.89 10^3/uL (1.8-7.7); Neutrophils % 65.8 %; Nucleated Red Blood Cells % 0 %; Platelet Count 298 10^3/cmm (130-400); Red Blood Count 4.54 10^6/uL (4.1-5.3); Red Cell Distribution Width 15.1 % (12.1-15.1)
[2021-10-20 01:00] VITALS: BP 134/67; PULSE 87; RESP 14; O2SAT 100
[2021-10-20 01:04] LABS: Alanine Aminotransferase 8 U/L (0-41); Albumin Level 4.3 g/dL (3.5-5.2); Alkaline Phosphatase 80 IU/L (40-130); Anion Gap 17.3 (5-19); Aspartate Amino Transferase 9 U/L (0-40); Blood Urea Nitrogen 22 mg/dL (6-20); Calcium 8.1 mg/dL (8.5-10.5); Carbon Dioxide 22 mmol/L (22-29); Chloride 105 mmol/L (98-107); Globulin 2.4 g/dL (1.3-4.6); Glomerular Filtration Rate 91.7 mL/min (90-130); Glucose 174 mg/dL (65-115); Osmolality Calculated 300 mOsm/kg (285-295); Potassium 3.3 mmol/L (3.5-5.1); Sodium 141 mmol/L (136-145); Total Bilirubin 0.2 mg/dL (0.15-1.2); Total Protein 6.7 g/dL (6.6-8.7)
[2021-10-20 01:05] LABS: Troponin(5th) Baseline 19 ng/L (0-15)
[2021-10-20] MEDS: ondansetron 2 mg/ML SDV 2 mL 4 MG IVP (01:06)
[2021-10-20 01:08] VITALS: RESP 20
[2021-10-20] MEDS: morphine 4 mg/mL SDV 1 mL IVP (01:08)
[2021-10-20 01:30] VITALS: BP 124/72; PULSE 82; RESP 13; O2SAT 100
[2021-10-20 02:00] VITALS: BP 146/71; PULSE 82; RESP 19; O2SAT 100
--- NOTE | 2021-10-20 02:13 | ECG_ITS ---
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 Measurements Intervals [place] Rate: 83 P: -10 OR: 172 QRS: -11 QRSD: 88 T: -2 QT: 357 QTc: 421 Interpretive Statements SINUS RHYTHM VOLTAGE CRITERIA FOR LVH [MEETS CRITERIA IN ONE OF: R(aVL), S(V1), R(V5), R(V5/V6)+S(V1)] Compared to ECG 10/19/2021 23:51:24 Sinus tachycardia no longer present Electronically Signed On 10-20-2021 16:35:32 CDT by Richie Macias M.D. [email or web address]
[2021-10-20 02:27] LABS: Troponin 5 2HR 18.64 ng/L (0-15)
[2021-10-20] MEDS: potassium chloride ER 20 mEq Tablet PO (02:37)
--- NOTE | 2021-10-20 02:38 | PC.NURSE ---
pt is requesting to get a pacemaker
== END 2021-10-20 02:57 | disposition home or self-care (01) ==
PROVIDERS: Emergency Provider Physician Assistant
DX: R07.89 Other chest pain (principal); R51.9 Headache, unspecified; I25.110 Atherosclerotic heart disease of native coronary artery with unstable angina pectoris; I10 Essential (primary) hypertension; E11.9 Type 2 diabetes mellitus without complications; E78.5 Hyperlipidemia, unspecified; Z87.891 Personal history of nicotine dependence
CPT/HCPCS: 71045; 80053; 84484; 85025; 93005; 96374; 96375; 99284; J2270; J2405

== ENCOUNTER 2021-10-23 12:28 | Emergency (ER) | payer MEDICAID, SELFPAY ==
[2021-10-23 12:54] VITALS: BP 141/86; PULSE 83; RESP 18; TEMP 36.3; O2SAT 100; BMI 23.3
[2021-10-23 15:22] LABS: Add Urine Microscopic? NO; Charge for UA Resulting for Rev
[2021-10-23 15:26] LABS: Basophils # 0.1 10^3/uL (0.0-0.1); Basophils % 0.5 %; Eosinophils # 0.3 10^3/uL (0.0-0.8); Eosinophils % 2.9 %; Hematocrit 40.9 % (42.0-52.0); Hemoglobin 12.8 g/dL (11.7-16.6); Lymphocytes # 1.9 10^3/uL (0.8-4.8); Lymphocytes % 16.7 %; Mean Corpuscular HGB Conc 31.3 g/dL (30.0-36.0); Mean Corpuscular Volume 73.4 fl (80-94); Mean Platelet Volume 12.4 fL (7.4-10.4); Monocytes # 0.8 10^3/uL (0.2-0.9); Monocytes % 7.5 %; Neutrophils # 8.07 10^3/uL (1.8-7.7); Nucleated Red Blood Cells % 0 %; Platelet Count 364 10^3/cmm (130-400); Red Blood Count 5.57 10^6/uL (4.1-5.3); Red Cell Distribution Width 15.3 % (12.1-15.1); White Blood Count 11.2 10^3/uL (4.0-10.0)
--- NOTE | 2021-10-23 15:39 | ED_ITS ---
HPI - Abdominal Pain General: Chief Complaint: Abdominal Pain Stated Complaint: ABD pain Time Seen by Provider: 10/23/21 15:19 Source: patient Mode of arrival: ambulatory Limitations: no limitations History of Present Illness: Patient is a 46-year-old male well-known to our emergency department here for complaints of abdominal pain, nausea, vomiting, diarrhea. Patient states symptoms started yesterday. He has had a total of 2 episodes of diarrhea and a total of 3 episodes of vomiting. He denies h ematemesis, hematochezia, or melanotic stools. No fevers. Reports he is living with a female individual that has had similar symptoms. No urinary symptoms. Location: Diffuse Exacerbating factors: eating Relieving factors: nothing Associated Symptoms: Reports diarrhea, nausea and vomiting; Denies chills, dysuria, fever(s), heartburn, hematochezia, hematemesis, melena and syncope Review of Systems Const: Denies: fever(s), chills, body aches, fatigue or malaise Eyes: Denies: change in vision or blurry vision ENMT: Denies: nasal discharge or nasal congestion Card: Denies: chest pain, palpitations, irregular heart rhythm, lightheadedness, syncope or dyspnea on exertion Resp: Denies: dyspnea, productive cough or pain on inspiration GI: Reports: abdominal pain, nausea, vomiting and diarrhea; Denies: hematemesis, heartburn, hematochezia or melena : Denies: flank pain, difficulty urinating or dysuria Musc: Denies: neck pain, back pain, extremity pain or joint pain Skin/Breast: Denies: rash Neuro: Denies: headache(s), numbness in extremities, weakness in extremities, sensory changes or dizziness PFSH ED PFSH: Medical History Atherosclerotic heart disease of [place] coronary artery with unstable angina pectoris Benign essential HTN CAD (coronary artery disease) 9stents Chest pain CVA (cerebrovascular accident) Diabetes Dyslipidemia (high LDL; low HDL) Former smoker HTN (hypertension) Surgical History History of appendectomy Family History Other No pertinent family history Social History Smoking and tobacco status: former smoker Alcohol intake: never Housing: House Physical Exam Const: COMMON NORMALS: no acute distress, average body habitus, patient oriented x3, no limitations, alert and well nourished GENERAL APPEARANCE: cooperative ORIENTATION/CONSCIOUSNESS: Yes awake, Yes oriented to person, Yes oriented to place and Yes oriented to time Resp: COMMON NORMALS: normal respiratory effort and clear to auscultation bilaterally AUSCULTATION: clear to auscultation bilaterally Cardio: COMMON NORMALS: regular rate and regular rhythm RATE: regular rate RHYTHM: regular rhythm GI: COMMON NORMALS: Normal to inspection, nondistended, normoactive bowel sounds present, Soft to palpation, non-tender, No hepatosplenomegaly present and no masses INSPECTION: Yes normal to inspection PALPATION: Yes Soft to palpation and Yes No hepatosplenomegaly present : COMMON NORMALS: Yes no CVA tenderness BLADDER/KIDNEY EXAM: Yes no CVA tenderness Back/Pelvis: COMMON NORMALS: no CVA tenderness Extremity: COMMON NORMALS: normal to inspection Neuro: JULIANO COMA SCALE: document GCS findings Juliano coma scale eye opening: Spontaneous Mccamey coma scale verbal response: Orientated Juliano coma scale motor response: Obey commands Juliano coma scale total score: 15 COMMON NORMALS: patient oriented x3, moves all extremities, no focal motor deficits and no sensory deficits noted SENSORIUM/ORIENTATION: Yes alert, Yes oriented to person, Yes oriented to place and Yes oriented to time Skin: COMMON NORMALS: no rashes or lesions noted GENERAL SKIN EXAM: no rashes or lesions noted Course Vital Signs: Vital signs: Vital Signs Temperature 97.4 F L 10/23/21 12:54 Pulse Rate 83 10/23/21 12:54 Respiratory Rate 18 10/23/21 12:54 Blood Pressure 141/86 10/23/21 12:54 Pulse Oximetry 100 10/23/21 12:54 MDM - Abdominal Pain Medical Decision Making Patient appears in no acute distress. He has not had any episodes of vomiting o r diarrhea while here. His vital signs are stable. Blood work is unremarkable. His abdomen is soft and non-tender on exam. Patient stated on his history that his current roommate has been sick with similar symptoms making his etiology most likely related to a viral gastroenteritis. Recommend patient treat symptoms conservatively at home with rest, fluids, bland/liquid diet. His medication list states he already takes an antiemetic as needed. Return to ED precautions given. Lab Data : 10/23/21 15:05 10/23/21 15:05 Labs/Radiology: Laboratory Results WBC 11.2 10^3/uL (4.0-10.0) H 10/23/21 15:05 RBC 5.57 10^6/uL (4.1-5.3) H 10/23/21 15:05 Hgb 12.8 g/dL (11.7-16.6) 10/23/21 15:05 Hct 40.9 % (42.0-52.0) L 10/23/21 15:05 MCV 73.4 fl (80-94) L 10/23/21 15:05 MCH 23.0 pg (28.0-34.0) L 10/23/21 15:05 MCHC 31.3 g/dL (30.0-36.0) 10/23/21 15:05 RDW 15.3 % (12.1-15.1) H 10/23/21 15:05 Plt Count 364 10^3/cmm (130-400) 10/23/21 15:05 MPV 12.4 fL (7.4-10.4) H 10/23/21 15:05 Neut % (Auto) 72.0 % 10/23/21 15:05 Lymph % (Auto) 16.7 % 10/23/21 15:05 Maverick % (Auto) 7.5 % 10/23/21 15:05 Eos % (Auto) 2.9 % 10/23/21 15:05 Baso % (Auto) 0.5 % 10/23/21 15:05 Neut # (Auto) 8.07 10^3/uL (1.8-7.7) H 10/23/21 15:05 Lymph # (Auto) 1.9 10^3/uL (0.8-4.8) 10/23/21 15:05 Maverick # (Auto) 0.8 10^3/uL (0.2-0.9) 10/23/21 15:05 Eos # (Auto) 0.3 10^3/uL (0.0-0.8) 10/23/21 15:05 Baso # (Auto) 0.1 10^3/uL (0.0-0.1) 10/23/21 15:05 Nucleated RBC % (auto) 0 % 10/23/21 15:05 Nucleated RBCs # 0.0 /100WBC 10/23/21 15:05 Sodium 139 mmol/L (136-145) 10/23/21 15:05 Potassium 4.1 mmol/L (3.5-5.1) 10/23/21 15:05 Chloride 104 mmol/L (98-107) 10/23/21 15:05 Carbon Dioxide 25 mmol/L (22-29) 10/23/21 15:05 Anion Gap 14.1 (5-19) 10/23/21 15:05 BUN 11 mg/dL (6-20) 10/23/21 15:05 Creatinine 0.8 mg/dL (0.7-1.2) 10/23/21 15:05 GFR Calculation 105.0 mL/min (90-130) 10/23/21 15:05 Glucose 97 mg/dL (65-115) 10/23/21 15:05 Calculated Osmolality 287 mOsm/kg (285-295) 10/23/21 15:05 Calcium 9.8 mg/dL (8.5-10.5) 10/23/21 15:05 Total Bilirubin 0.3 mg/dL (0.15-1.2) 10/23/21 15:05 AST 11 U/L (0-40) 10/23/21 15:05 ALT 9 U/L (0-41) 10/23/21 15:05 Alkaline Phosphatase 95 IU/L (40-130) 10/23/21 15:05 Total Protein 7.9 g/dL (6.6-8.7) 10/23/21 15:05 Albumin 5.0 g/dL (3.5-5.2) 10/23/21 15:05 Globulin 2.9 g/dL (1.3-4.6) 10/23/21 15:05 Lipase 55 U/L (13-60) 10/23/21 15:05 Urine Color Colorless (Yellow) 10/23/21 13:50 Urine Appearance Clear (CLEAR) 10/23/21 13:50 Urine pH 5 (5-7) 10/23/21 13:50 Ur Specific [place] 1.000 (1.005-1.030) L 10/23/21 13:50 Urine Protein Neg (Negative) 10/23/21 13:50 Urine Glucose (UA) Norm (Normal) 10/23/21 13:50 Urine Ketones Negative (Negative) 10/23/21 13:50 Urine Blood Neg (Negative) 10/23/21 13:50 Urine Nitrate Negative (Negative) 10/23/21 13:50 Urine Bilirubin Neg (Negative) 10/23/21 13:50 Urine Urobilinogen Norm mg/dL (Negative) 10/23/21 13:50 Ur Leukocyte Esterase Negative (Negative) 10/23/21 13:50 Discharge Plan Discharge Patient Disposition: Home Clinical Impression: Gastroenteritis Condition: Stable Prescriptions: No Action [id number] 50-325-40 mg tablet 2 tab PO BID PRN (Reason: Migraine Headache) 0RF Hold Instructions: interaction with aspirin insulin aspart U-100 [Novolog Flexpen U-100 Insulin] 100 unit/mL (3 mL) insulin pen See Rx Instructions .ROUTE .COMPLEX Qty: 15 0RF Hold Instructions: See PCP Rx Instructions: Inject, 3 times daily, after meals, based on sliding scale provided Lantus Solostar U-100 Insulin 100 unit/mL (3 mL) Insulin Pen 5 unit SUBCUT DAILY Qty: 15 0RF Hold Instructions: See PCP Lantus Solostar U-100 Insulin 100 unit/mL (3 mL) insulin pen 5 unit SUBCUT DAILY Qty: 15 0RF Hold Instructions: See PCP insulin aspart U-100 [Novolog Flexpen U-100 Insulin] 100 unit/mL (3 mL) insulin pen 1 unit SUBCUT TID Qty: 3 0RF Hold Instructions: See PCP Rx Instructions: Inject 3 times daily after meals based on sliding scale. isosorbide mononitrate 60 mg tablet extended release 24 hr 60 mg PO BID Qty: 60 0RF Hold Instructions: see pcp ondansetron 4 mg tablet,disintegrating 4 mg PO Q6H PRN (Reason: nausea and vomiting) Qty: 14 0RF ProAir HFA 90 mcg/actuation HFA aerosol inhaler 2 puff INHALATION Q4H PRN (Reason: Shortness Of Breath) 1 Days Qty: 30 0RF carvedilol 3.125 mg Tablet 3.125 mg PO Q12H 30 Days Qty: 60 1RF escitalopram oxalate 10 mg Tablet 10 mg PO DAILY 30 Days Qty: 30 1RF aripiprazole 10 mg Tablet 5 mg PO DAILY 30 Days Qty: 30 1RF atorvastatin 40 mg tablet 40 mg PO BEDTIME 30 Days Qty: 30 1RF ondansetron HCl 4 mg tablet 4 mg PO Q8H PRN (Reason: Nausea And Vomiting) 30 Days Qty: 60 1RF clopidogrel 75 mg tablet 75 mg PO QAM 30 Days Qty: 30 1RF aspirin 81 mg Tablet,Delayed Release (Dr/Ec) 81 mg PO QAM 30 Days Qty: 30 1RF Protonix 40 mg tablet,delayed release (DR/EC) 40 mg PO DAILY 30 Days Qty: 30 1RF Nitrostat 0.4 mg Tablet, Sublingual 0.4 mg SUBLINGUAL Q5M PRN (Reason: Chest Pain) 30 Days Qty: 60 1RF Rx Instructions: do not exceed 3 doses per episode ranolazine 500 mg tablet extended release 12 hr 500 mg PO BID 30 Days Qty: 60 1RF Discharge Orders: Discharge ED (Routine); Ordered 10/23/21 Ordered By: Jillian Correia Patient Instructions: Gastroenteritis (DC) Coding Level of Care Code ED Testing And Regulating Technician for Rajivg Fwd Exam Comprehensive
[2021-10-23 15:43] LABS: Alanine Aminotransferase 9 U/L (0-41); Alkaline Phosphatase 95 IU/L (40-130); Anion Gap 14.1 (5-19); Aspartate Amino Transferase 11 U/L (0-40); Blood Urea Nitrogen 11 mg/dL (6-20); Calcium 9.8 mg/dL (8.5-10.5); Carbon Dioxide 25 mmol/L (22-29); Chloride 104 mmol/L (98-107); Globulin 2.9 g/dL (1.3-4.6); Glucose 97 mg/dL (65-115); Lipase 55 U/L (13-60); Osmolality Calculated 287 mOsm/kg (285-295); Potassium 4.1 mmol/L (3.5-5.1); Sodium 139 mmol/L (136-145); Total Bilirubin 0.3 mg/dL (0.15-1.2); Total Protein 7.9 g/dL (6.6-8.7)
[2021-10-23] MEDS: ondansetron 2 mg/ML SDV 2 mL 4 MG IVP (15:43)
[2021-10-23 16:20] LABS: Bilirubin Urine Neg (Negative); Blood Urine Neg (Negative); Glucose Urine UA Norm (Normal); Ketones Urine Negative (Negative); Leukocyte Esterase Urine Negative (Negative); Nitrate Urine Negative (Negative); Protein Urine Neg (Negative); Urine Appearance Clear (CLEAR); Urine Color Colorless (Yellow); Urobilinogen Urine Norm (Negative); pH Urine 5 (5-7)
[2021-10-23] MEDS: ketorolac 30 mg/mL INJ IVP (16:21)
== END 2021-10-23 16:30 | disposition home or self-care (01) ==
PROVIDERS: Emergency Provider Physician Assistant
DX: K52.9 Noninfective gastroenteritis and colitis, unspecified (principal)
CPT/HCPCS: 80053; 81003; 83690; 85025; 96374; 96375; 99284; J1885; J2405

== ENCOUNTER 2021-10-31 15:43 | Emergency (ER) | payer OTHER, SELFPAY ==
[2021-10-31 15:48] VITALS: BP 147/78; PULSE 121; RESP 18; TEMP 37.6; O2SAT 99; BMI 23.6
--- NOTE | 2021-10-31 17:09 | XRR_ITS ---
PROCEDURE INFORMATION: Exam: XR Chest Exam date and time: 10/31/2021 5:18 PM Age: 46 years old Clinical indication: Cough; Prior surgery; Surgery date: 6+ months; Surgery type: Stints; Additional info: Dyspnea/cough TECHNIQUE: Imaging protocol: XR of the chest. Views: 1 view. COMPARISON: CR (CHEST, ) 10/20/2021 12:26 AM FINDINGS: Lungs: Unremarkable. No consolidation. Pleural spaces: Unremarkable. No pleural effusion. No pneumothorax. Heart/Mediastinum: Unremarkable. No cardiomegaly. Bones/joints: Unremarkable. XR/XR chest 1V portable [id number] IMPRESSION: No acute findings.
--- NOTE | 2021-10-31 17:09 | ECG_ITS ---
[facility] Test Date: 2021-10-31 Pat Name: Alonso June Department: Room: Gender: Male Display Decorator: : 1975 Requested By: Kam Phillips Order Number: [id number] Janel MD: Heath Pacheco M.D. Measurements Intervals [place] Rate: 85 P: 66 AL: 148 QRS: 72 QRSD: 84 T: 65 QT: 320 QTc: 382 Interpretive Statements SINUS RHYTHM MODERATE VOLTAGE CRITERIA FOR LVH, CONSIDER NORMAL VARIANT [MEETS CRITERIA IN ONE OF: R(aVL), S(V1), R(V5), R(V5/V6)+S(V1)] Compared to ECG 10/20/2021 02:08:17 No significant changes Electronically Signed On 10-31-2021 20:40:45 CDT by Heath Pacheco M.D. [id number]
--- NOTE | 2021-10-31 17:29 | W.ED.WEAKNES ---
Documented by User: Kam Martinez DO 11/07/21 17:30 HPI - Weakness General: Chief complaint: Weakness Stated complaint: thinks he is having a stroke Time Seen by Provider: 10/31/21 17:02 Source: patient Mode of arrival: ambulatory Limitations: no limitations History of Present Illness: 46-year-old male presents to the emergency room with complaints of thinking he had a stroke. Unfortunately this patient has been quite difficult in the past he has had multiple visits for stroke and chest pain. In a 1 months. Earlier this year he had 12-15 CTs. He has had 3 cardiac catheterizations in 3 months. Patient was witnessed falling out of his chair but then was ambulatory after that. Unfortunately was again very difficult to evaluate because of his frequent malingering. Complaint: generalized weakness Onset (ago): minute(s) Duration: constant Location: generalized Relieving factors: none Exacerbating factors: none Associated symptoms: Denies chest pain, chills, confusion, melena, decreased appetite, diaphoresis, dysuria, easy bruising, fever(s), headache(s), myalgias, nausea, rash, short of breath, syncope or vomiting Review of Systems Const: Denies: fever(s), chills or diaphoresis Card: Denies: chest pain or syncope GI: Denies: nausea, vomiting or melena : Denies: dysuria Neuro: Denies: headache(s) or confusion Melquiades/Lymph: Denies: easy bruising PFS ED PFSH: Medical History Atherosclerotic heart disease of [place] coronary artery with unstable angina pectoris Benign essential HTN CAD (coronary artery disease) 9stents Chest pain CVA (cerebrovascular accident) Diabetes Dyslipidemia (high LDL; low HDL) Former smoker HTN (hypertension) Surgical History History of appendectomy Family History Other No pertinent family history Social History Smoking and tobacco status: former smoker Alcohol intake: never Housing: House Physical Exam Const: COMMON NORMALS: no acute distress GENERAL APPEARANCE: cooperative and comfortable ORIENTATION/CONSCIOUSNESS: Yes awake, Yes oriented to person, Yes oriented to place and Yes oriented to time HENMT: COMMON NORMALS: normocephalic, atraumatic, hearing grossly normal bilaterally, external ears normal, EAC's normal, TM's normal bilaterally, Normal nasal mucous membranes and turbinates present, moist oral mucous membranes and oropharynx normal HEAD & SCALP: normocephalic and atraumatic NOSE: Normal nasal mucous membranes and turbinates present EXTERNAL EAR: Yes external ears normal EXTERNAL AUDITORY CANAL: EAC's normal TYMPANIC MEMBRANE: TM's normal bilaterally Eye: COMMON NORMALS: Equal, round and reactive pupils present, EOMs intact bilaterally, conjunctivae normal and no scleral icterus CONJUNCTIVA: Yes conjunctivae normal PUPIL: Yes Equal, round and reactive pupils present Neck/C-Spine: COMMON NORMALS: no JVD Resp: COMMON NORMALS: normal respiratory effort, No retractions, No use of accessory muscles and clear to auscultation bilaterally AUSCULTATION: clear to auscultation bilaterally Cardio: COMMON NORMALS: no JVD, regular rate, regular rhythm and No murmurs present (Cardio) RATE: regular rate RHYTHM: regular rhythm GI: COMMON NORMALS: Soft to palpation and No hepatosplenomegaly present AUSCULTATION: Yes normoactive bowel sounds PALPATION: Yes Soft to palpation, No Tenderness to palpation present (GI), No Guarding due to palpation present (GI) and Yes No hepatosplenomegaly present Extremity: COMMON NORMALS: normal to inspection, capillary refill normal, no clubbing, cyanosis or edema, no calf tenderness and no pedal edema Neuro: SENSORIUM/ORIENTATION: Yes oriented to person, Yes oriented to place and Yes oriented to time Skin: COMMON NORMALS: no rashes or lesions noted GENERAL SKIN EXAM: no rashes or lesions noted Course Vital Signs: Vital signs: Vital Signs Temperature 99.6 F 10/31/21 15:48 Pulse Rate 87 10/31/21 19:42 Respiratory Rate 18 10/31/21 19:42 Blood Pressure 149/84 10/31/21 19:42 Pulse Oximetry 98 10/31/21 19:42 MDM - Weakness Medical Decision Making Labs pending neurologically intact. He has no focal neurologic findings on NIH. Not NIH score is 0. Care signed out to Dr. Noguera at change of shift. See final notes for diagnosis and disposition. 46-year-old male well-known to the ER checked out to me at shift change by Dr. Lentz. This gentleman has vague complaints of headache, chest discomfort. He says he believes he is having a stroke, although he has no focal neurological symptoms whatsoever here. He has been worked up multiple times for chest pain without any cause found. He is actually had more than 1 heart cath in the recent past. He has been tPA'ed for stroke symptoms in the past as well. His labs are benign. His CT is normal and unchanged. He will be allowed discharge. Medical Records I reviewed the patient's medical records. Lab Data : 10/31/21 17:30 10/31/21 17:30 Radiology Impressions Chest X-Ray 10/31/21 17:09 IMPRESSION: No acute findings. Head CT 10/31/21 18:11 IMPRESSION: No acute intracranial abnormality. Laboratory Results WBC 7.6 10^3/uL (4.0-10.0) 10/31/21 17:30 RBC 4.75 10^6/uL (4.1-5.3) 10/31/21 17:30 Hgb 11.3 g/dL (11.7-16.6) L 10/31/21 17:30 Hct 35.8 % (42.0-52.0) L 10/31/21 17:30 MCV 75.4 fl (80-94) L 10/31/21 17:30 MCH 23.8 pg (28.0-34.0) L 10/31/21 17:30 MCHC 31.6 g/dL (30.0-36.0) 10/31/21 17:30 RDW 15.9 % (12.1-15.1) H 10/31/21 17:30 Plt Count 281 10^3/cmm (130-400) 10/31/21 17:30 MPV 12.9 fL (7.4-10.4) H 10/31/21 17:30 Neut % (Auto) 59.8 % 10/31/21 17:30 Lymph % (Auto) 21.8 % 10/31/21 17:30 Jerome % (Auto) 13.0 % 10/31/21 17: Eos % (Auto) 4.3 % 10/31/21 17:30 Baso % (Auto) 0.8 % 10/31/21 17:30 Neut # (Auto) 4.55 10^3/uL (1.8-7.7) 10/31/21 17: Lymph # (Auto) 1.7 10^3/uL (0.8-4.8) 10/31/21 17: Jerome # (Auto) 1.0 10^3/uL (0.2-0.9) H 10/31/21: Eos # (Auto) 0.3 10^3/uL (0.0-0.8) 10/31/21: Baso # (Auto) 0.1 10^3/uL (0.0-0.1) 10/31/21: Nucleated RBC % (auto) 0 % 10/31/21: Nucleated RBCs # 0.0 /100WBC 10/31/21:30 Sodium 138 mmol/L (136-145) 10/31/21: Potassium 3.8 mmol/L (3.5-5.1) 10/31/21: Chloride 105 mmol/L (98-107) 10/31/21: Carbon Dioxide 23 mmol/L (22-29) 10/31/21: Anion Gap 13.8 (5-19) 10/31/21: BUN 11 mg/dL (6-20) 10/31/21: Creatinine 1.0 mg/dL (0.7-1.2) 10/31/21: GFR Calculation 81.2 mL/min (90-130) L 10/31/21: Glucose 99 mg/dL (65-115) 10/31/21: Calculated Osmolality 285 mOsm/kg (285-295) 10/31/21: Calcium 9.1 mg/dL (8.5-10.5) 10/31/21: Total Bilirubin 0.2 mg/dL (0.15-1.2) 10/31/21: AST 9 U/L (0-40) 10/31/21: ALT < 5 U/L (0-41) 10/31/21: Alkaline Phosphatase 82 IU/L (40-130) 05/13/22 17:30 Total Protein 7.2 g/dL (6.6-8.7) 10/31/21 17:30 Albumin 4.3 g/dL (3.5-5.2) 10/31/21 17:30 Globulin 2.9 g/dL (1.3-4.6) 10/31/21 17:30 Discharge Plan Discharge Patient Disposition: Home Clinical Impression: Headache, Chest pain Condition: Stable Prescriptions: No Action clopidogrel 75 mg tablet 75 mg PO QAM Qty: 30 1RF cqkefhjqbn-ethoxoflwtwsj-qwzg 50-325-40 mg tablet 2 tab PO BID PRN (Reason: Migraine Headache) 0RF Hold Instructions: interaction with aspirin insulin aspart U-100 [Novolog Flexpen U-100 Insulin] 100 unit/mL (3 mL) insulin pen See Rx Instructions .ROUTE .COMPLEX Qty: 15 0RF Hold Instructions: See PCP Rx Instructions: Inject, 3 times daily, after meals, based on sliding scale provided Lantus Solostar U-100 Insulin 100 unit/mL (3 mL) Insulin Pen 5 unit SUBCUT DAILY Qty: 15 0RF Hold Instructions: See PCP Lantus Solostar U-100 Insulin 100 unit/mL (3 mL) insulin pen 5 unit SUBCUT DAILY Qty: 15 0RF Hold Instructions: See PCP insulin aspart U-100 [Novolog Flexpen U-100 Insulin] 100 unit/mL (3 mL) insulin pen 1 unit SUBCUT TID Qty: 3 0RF Hold Instructions: See PCP Rx Instructions: Inject 3 times daily after meals based on sliding scale. isosorbide mononitrate 60 mg tablet extended release 24 hr 60 mg PO BID Qty: 60 0RF Hold Instructions: see pcp ondansetron 4 mg tablet,disintegrating 4 mg PO Q6H PRN (Reason: nausea and vomiting) Qty: 14 0RF ProAir HFA 90 mcg/actuation HFA aerosol inhaler 2 puff INHALATION Q4H PRN (Reason: Shortness Of Breath) 1 Days Qty: 30 0RF hydroxyzine HCl 25 mg tablet 25 mg PO Q8H PRN (Reason: nausea and vomiting) Qty: 10 0RF carvedilol 3.125 mg Tablet 3.125 mg PO Q12H 30 Days Qty: 60 1RF escitalopram oxalate 10 mg Tablet 10 mg PO DAILY 30 Days Qty: 30 1RF aripiprazole 10 mg Tablet 5 mg PO DAILY 30 Days Qty: 30 1RF atorvastatin 40 mg tablet 40 mg PO BEDTIME 30 Days Qty: 30 1RF ondansetron HCl 4 mg tablet 4 mg PO Q8H PRN (Reason: Nausea And Vomiting) 30 Days Qty: 60 1RF aspirin 81 mg Tablet,Delayed Release (Dr/Ec) 81 mg PO QAM 30 Days Qty: 30 1RF Protonix 40 mg tablet,delayed release (DR/EC) 40 mg PO DAILY 30 Days Qty: 30 1RF Nitrostat 0.4 mg Tablet, Sublingual 0.4 mg SUBLINGUAL Q5M PRN (Reason: Chest Pain) 30 Days Qty: 60 1RF Rx Instructions: do not exceed 3 doses per episode ranolazine 500 mg tablet extended release 12 hr 500 mg PO BID 30 Days Qty: 60 1RF Discharge Orders: Discharge ED (Routine); Ordered 10/31/21 Ordered By: Pete Noguera Discharge Diet: Advance as tolerated Discharge Activity: Resume usual activity Patient Instructions: Chest Pain (ED), Acute Headache (ED) Activity Restrictions/Additional Instructions: See your doctor regarding follow-up. Coding Level of Care Code ED Preschool Teacher'S Assistant for Chg Fwd NIH stroke score NIHSS Level Of Consciousness - 1a: 0 Level Of Consciousness Questions - 1b: Both Correct Level Of Consciousness Commands - 1c: Both Correct Best Gaze - 2: Normal Visual Ontiveros - 3: No Visual Loss Facial Palsy - 4: Normal Motor Arm Right - 5: No Drift Motor Arm Left - 5: No Drift Motor Leg Right - 6: No Drift Motor Leg Left - 6: No Drift Limb Ataxia - 7: Absent Sensory - 8: Normal Best Language - 9: No Aphasia Dysarthia - 10: Normal Extinction And Inattention - 11: 0 Score Total Score: 0 Documented by User: Pete Noguera DO 10/31/21 19:30 HPI - Weakness General: Chief complaint: Weakness Stated complaint: thinks he is having a stroke Time Seen by Provider: 10/31/21 17:02 [facility] ED PFSH: Medical History Atherosclerotic heart disease of [place] coronary artery with unstable angina pectoris Benign essential HTN CAD (coronary artery disease) 9stents Chest pain CVA (cerebrovascular accident) Diabetes Dyslipidemia (high LDL; low HDL) Former smoker HTN (hypertension) Surgical History History of appendectomy Family History Other No pertinent family history Social History Smoking and tobacco status: former smoker Alcohol intake: never Housing: House Course Vital Signs: Vital signs: Vital Signs Temperature 99.6 F 10/31/21 15:48 Pulse Rate 87 10/31/21 19:42 Respiratory Rate 18 10/31/21 19:42 Blood Pressure 149/84 10/31/21 19:42 Pulse Oximetry 98 10/31/21 19:42 MDM - Weakness Medical Decision Making 46-year-old male well-known to the ER checked out to me at shift change by Dr. Lentz. This gentleman has vague complaints of headache, chest discomfort. He says he believes he is having a stroke, although he has no focal neurological symptoms whatsoever here. He has been worked up multiple times for chest pain without any cause found. He is actually had more than 1 heart cath in the recent past. He has been tPA'ed for stroke symptoms in the past as well. His labs are benign. His CT is normal and unchanged. He will be allowed discharge. Lab Data : 10/31/21 17:30 10/31/21 17:30 Radiology Impressions Chest X-Ray 10/31/21 17:09 IMPRESSION: No acute findings. Head CT 10/31/21 18:11 IMPRESSION: No acute intracranial abnormality. Laboratory Results WBC 7.6 10^3/uL (4.0-10.0) 10/31/21 17:30 RBC 4.75 10^6/uL (4.1-5.3) 10/31/21 17:30 Hgb 11.3 g/dL (11.7-16.6) L 10/31/21 17: Hct 35.8 % (42.0-52.0) L 10/31/21 17: MCV 75.4 fl (80-94) L 10/31/21: MCH 23.8 pg (28.0-34.0) L 10/31/21: MCHC 31.6 g/dL (30.0-36.0) 10/31/21: RDW 15.9 % (12.1-15.1) H 10/31/21 17: Plt Count 281 10^3/cmm (130-400) 10/31/21: MPV 12.9 fL (7.4-10.4) H 10/31/21: Neut % (Auto) 59.8 % 10/31/21 17: Lymph % (Auto) 21.8 % 10/31/21: Jerome % (Auto) 13.0 % 10/31/21: Eos % (Auto) 4.3 % 10/31/21: Baso % (Auto) 0.8 % 10/31/21: Neut # (Auto) 4.55 10^3/uL (1.8-7.7) 10/31/21: Lymph # (Auto) 1.7 10^3/uL (0.8-4.8) 10/31/21: Jerome # (Auto) 1.0 10^3/uL (0.2-0.9) H 10/31/21: Eos # (Auto) 0.3 10^3/uL (0.0-0.8) 10/31/21: Baso # (Auto) 0.1 10^3/uL (0.0-0.1) 10/31/21: Nucleated RBC % (auto) 0 % 10/31/21: Nucleated RBCs # 0.0 /100WBC 10/31/21 17: Sodium 138 mmol/L (136-145) 10/31/21: Potassium 3.8 mmol/L (3.5-5.1) 10/31/21: Chloride 105 mmol/L (98-107) 05/13/22 17:30 Carbon Dioxide 23 mmol/L (22-29) 10/31/21 17:30 Anion Gap 13.8 (5-19) 10/31/21 17:30 BUN 11 mg/dL (6-20) 10/31/21 17:30 Creatinine 1.0 mg/dL (0.7-1.2) 10/31/21 17:30 GFR Calculation 81.2 mL/min (90-130) L 10/31/21 17:30 Glucose 99 mg/dL (65-115) 10/31/21 17:30 Calculated Osmolality 285 mOsm/kg (285-295) 10/31/21 17:30 Calcium 9.1 mg/dL (8.5-10.5) 10/31/21 17:30 Total Bilirubin 0.2 mg/dL (0.15-1.2) 10/31/21 17:30 AST 9 U/L (0-40) 10/31/21 17:30 ALT < 5 U/L (0-41) 10/31/21 17:30 Alkaline Phosphatase 82 IU/L (40-130) 10/31/21 17:30 Total Protein 7.2 g/dL (6.6-8.7) 10/31/21 17:30 Albumin 4.3 g/dL (3.5-5.2) 10/31/21 17:30 Globulin 2.9 g/dL (1.3-4.6) 10/31/21 17:30 Discharge Plan Discharge Patient Disposition: Home Clinical Impression: Headache, Chest pain Condition: Stable Prescriptions: No Action clopidogrel 75 mg tablet 75 mg PO QAM Qty: 30 1RF jzkabltqkb-qpqroqluurkgb-rrew 50-325-40 mg tablet 2 tab PO BID PRN (Reason: Migraine Headache) 0RF Hold Instructions: interaction with aspirin insulin aspart U-100 [Novolog Flexpen U-100 Insulin] 100 unit/mL (3 mL) insulin pen See Rx Instructions .ROUTE .COMPLEX Qty: 15 0RF Hold Instructions: See PCP Rx Instructions: Inject, 3 times daily, after meals, based on sliding scale provided Lantus Solostar U-100 Insulin 100 unit/mL (3 mL) Insulin Pen 5 unit SUBCUT DAILY Qty: 15 0RF Hold Instructions: See PCP Lantus Solostar U-100 Insulin 100 unit/mL (3 mL) insulin pen 5 unit SUBCUT DAILY Qty: 15 0RF Hold Instructions: See PCP insulin aspart U-100 [Novolog Flexpen U-100 Insulin] 100 unit/mL (3 mL) insulin pen 1 unit SUBCUT TID Qty: 3 0RF Hold Instructions: See PCP Rx Instructions: Inject 3 times daily after meals based on sliding scale. isosorbide mononitrate 60 mg tablet extended release 24 hr 60 mg PO BID Qty: 60 0RF Hold Instructions: see pcp ondansetron 4 mg tablet,disintegrating 4 mg PO Q6H PRN (Reason: nausea and vomiting) Qty: 14 0RF ProAir HFA 90 mcg/actuation HFA aerosol inhaler 2 puff INHALATION Q4H PRN (Reason: Shortness Of Breath) 1 Days Qty: 30 0RF hydroxyzine HCl 25 mg tablet 25 mg PO Q8H PRN (Reason: nausea and vomiting) Qty: 10 0RF carvedilol 3.125 mg Tablet 3.125 mg PO Q12H 30 Days Qty: 60 1RF escitalopram oxalate 10 mg Tablet 10 mg PO DAILY 30 Days Qty: 30 1RF aripiprazole 10 mg Tablet 5 mg PO DAILY 30 Days Qty: 30 1RF atorvastatin 40 mg tablet 40 mg PO BEDTIME 30 Days Qty: 30 1RF ondansetron HCl 4 mg tablet 4 mg PO Q8H PRN (Reason: Nausea And Vomiting) 30 Days Qty: 60 1RF aspirin 81 mg Tablet,Delayed Release (Dr/Ec) 81 mg PO QAM 30 Days Qty: 30 1RF Protonix 40 mg tablet,delayed release (DR/EC) 40 mg PO DAILY 30 Days Qty: 30 1RF Nitrostat 0.4 mg Tablet, Sublingual 0.4 mg SUBLINGUAL Q5M PRN (Reason: Chest Pain) 30 Days Qty: 60 1RF Rx Instructions: do not exceed 3 doses per episode ranolazine 500 mg tablet extended release 12 hr 500 mg PO BID 30 Days Qty: 60 1RF Discharge Orders: Discharge ED (Routine); Ordered 10/31/21 Ordered By: Pete Noguera Discharge Diet: Advance as tolerated Discharge Activity: Resume usual activity Patient Instructions: Chest Pain (ED), Acute Headache (ED) Activity Restrictions/Additional Instructions: See your doctor regarding follow-up. Coding Level of Care Code ED Preschool Teacher'S Assistant for Chg Fwd
[2021-10-31 17:54] LABS: Alanine Aminotransferase < 5 U/L (0-41); Albumin Level 4.3 g/dL (3.5-5.2); Alkaline Phosphatase 82 IU/L (40-130); Anion Gap 13.8 (5-19); Aspartate Amino Transferase 9 U/L (0-40); Blood Urea Nitrogen 11 mg/dL (6-20); Calcium 9.1 mg/dL (8.5-10.5); Carbon Dioxide 23 mmol/L (22-29); Chloride 105 mmol/L (98-107); Globulin 2.9 g/dL (1.3-4.6); Glomerular Filtration Rate 81.2 mL/min (90-130); Glucose 99 mg/dL (65-115); Osmolality Calculated 285 mOsm/kg (285-295); Potassium 3.8 mmol/L (3.5-5.1); Sodium 138 mmol/L (136-145); Total Bilirubin 0.2 mg/dL (0.15-1.2); Total Protein 7.2 g/dL (6.6-8.7)
--- NOTE | 2021-10-31 18:11 | CTR_ITS ---
PROCEDURE INFORMATION: Exam: CT Head Without Contrast Exam date and time: 10/31/2021 6:47 PM Age: 46 years old Clinical indication: Pain; Headache not specified; Patient HX: C/O BARLOW w weakness TECHNIQUE: Imaging protocol: Computed tomography of the head without contrast. Radiation optimization: All CT scans at this facility use at least one of these dose optimization techniques: automated exposure control; mA and/or kV adjustment per patient size (includes targeted exams where dose is matched to clinical indication); or iterative reconstruction. COMPARISON: CT head wo con* [id number] 10/12/2021 8:33 PM RADIATION DOSE METRICS: Total DLP (mGy-cm): 885.15 FINDINGS: Brain: Normal. No hemorrhage. Unremarkable white matter. No mass effect. Cerebral ventricles: No ventriculomegaly. Paranasal sinuses: Visualized sinuses are unremarkable. No fluid levels. Mastoid air cells: Visualized mastoid air cells are well aerated. Bones/joints: Unremarkable. No acute fracture. Soft tissues: Unremarkable. CT/CT head wo con* [id number] IMPRESSION: No acute intracranial abnormality.
[2021-10-31 18:29] VITALS: BP 149/84; PULSE 90; RESP 13; O2SAT 98
[2021-10-31 18:31] LABS: Basophils # 0.1 10^3/uL (0.0-0.1); Basophils % 0.8 %; Eosinophils # 0.3 10^3/uL (0.0-0.8); Eosinophils % 4.3 %; Hematocrit 35.8 % (42.0-52.0); Hemoglobin 11.3 g/dL (11.7-16.6); Lymphocytes # 1.7 10^3/uL (0.8-4.8); Lymphocytes % 21.8 %; Mean Corpuscular HGB Conc 31.6 g/dL (30.0-36.0); Mean Corpuscular Hemoglobin 23.8 pg (28.0-34.0); Mean Corpuscular Volume 75.4 fl (80-94); Mean Platelet Volume 12.9 fL (7.4-10.4); Neutrophils # 4.55 10^3/uL (1.8-7.7); Neutrophils % 59.8 %; Nucleated Red Blood Cells % 0 %; Platelet Count 281 10^3/cmm (130-400); Red Blood Count 4.75 10^6/uL (4.1-5.3); Red Cell Distribution Width 15.9 % (12.1-15.1); White Blood Count 7.6 10^3/uL (4.0-10.0)
[2021-10-31 19:42] VITALS: BP 149/84; PULSE 87; RESP 18; O2SAT 98
== END 2021-10-31 19:48 | disposition home or self-care (01) ==
PROVIDERS: Emergency Provider Family Medicine
DX: R51.9 Headache, unspecified (principal); R07.9 Chest pain, unspecified; I10 Essential (primary) hypertension; E11.9 Type 2 diabetes mellitus without complications; E78.5 Hyperlipidemia, unspecified; Z79.82 Long term (current) use of aspirin; Z79.4 Long term (current) use of insulin; Z86.73 Personal history of transient ischemic attack (TIA), and cerebral infarction without residual deficits
CPT/HCPCS: 36415; 70450; 71045; 80053; 85025; 93005; 99284

== ENCOUNTER 2021-11-01 00:13 | Emergency (ER) | payer OTHER, SELFPAY ==
--- NOTE | 2021-11-01 00:16 | ED_ITS ---
HPI - Chest Pain General: Chief Complaint: Chest Pain Stated Complaint: cp Time Seen by Provider: 11/01/21 00:16 History of Present Illness: 46-year-old male patient comes in today with substernal chest discomfort. Patient states that he has had nausea and vomiting with diarrhea through the day. Patient believes that he has food poisoning from some pizza that he ate. Patient denies any blood in the vomit or feces. Patient appears mildly unwell but not toxic. Patient appears in no pain. Patient has been fully evaluated for cardiac illness with several angiocaths in the past and CTs without any significant findings. Associated symptoms: Reports nausea and vomiting; Deny dyspnea or fever(s) Review of Systems General: Reports: 10 or more systems reviewed and unremarkable except in HPI and below Const: Denies: fever(s) Card: Reports: chest pain Resp: Denies: dyspnea GI: Reports: nausea, vomiting and diarrhea : Denies: flank pain Musc: Denies: neck pain or back pain PFSH ED PFSH: Medical History Atherosclerotic heart disease of [place] coronary artery with unstable angina pectoris Benign essential HTN CAD (coronary artery disease) 9stents Chest pain CVA (cerebrovascular accident) Diabetes Dyslipidemia (high LDL; low HDL) Former smoker HTN (hypertension) Surgical History History of appendectomy Family History Other No pertinent family history Social History Smoking and tobacco status: former smoker Alcohol intake: never Housing: House Physical Exam Const: COMMON NORMALS: alert Neck/C-Spine: COMMON NORMALS: full ROM Resp: COMMON NORMALS: normal respiratory effort and clear to auscultation bilaterally AUSCULTATION: clear to auscultation bilaterally Cardio: COMMON NORMALS: regular rate and regular rhythm RATE: regular rate RHYTHM: regular rhythm GI: COMMON NORMALS: Soft to palpation and non-tender PALPATION: Yes Soft to palpation Extremity: COMMON NORMALS: no pedal edema Neuro: SENSORIUM/ORIENTATION: Yes alert Skin: COMMON NORMALS: no rashes or lesions noted GENERAL SKIN EXAM: no rashes or lesions noted Course Vital Signs: Vital signs: Vital Signs Temperature 97.6 F 11/01/21 00:17 Pulse Rate 80 11/01/21 00:17 Respiratory Rate 20 H 11/01/21 00:17 Blood Pressure 152/93 11/01/21 00:17 Pulse Oximetry 100 11/01/21 00:17 MDM - Chest Pain Medical Decision Making 46-year-old male patient comes in today with complaints of nausea vomiting diarrhea. Patient initially complained of chest discomfort and chest pain. Patient been recently evaluated within the last 24 hours for chest pain. Exam notes abdomen soft nontender. Respirations were even lungs were clear to au scultation. No edema is noted extremities. Heart rate was regular. Vital signs are normal. Differential diagnosis includes not limited to malingering, gastroenteritis, GERD. EKG shows a sinus rhythm without any ST elevation or ectopy. No sign of serious illness or injuries are noted. Patient be given some Zofran in the ER with recommendations to go home stick on a clear liquid diet for the next 24 hours and then increase diet to a bland diet. Patient should follow-up with primary care for further instruction. Return to ER for high fever, blood in vomit or stool. Patient reported understanding. Discharge Plan Discharge Patient Disposition: Home Clinical Impression: Gastroenteritis Condition: Stable Prescriptions: New hydroxyzine HCl 25 mg tablet 25 mg PO Q8H PRN (Reason: nausea and vomiting) Qty: 10 0RF No Action dyawmexpxr-wjsiofyoxlhqv-hxgd 50-325-40 mg tablet 2 tab PO BID PRN (Reason: Migraine Headache) 0RF Hold Instructions: interaction with aspirin insulin aspart U-100 [Novolog Flexpen U-100 Insulin] 100 unit/mL (3 mL) insulin pen See Rx Instructions .ROUTE .COMPLEX Qty: 15 0RF Hold Instructions: See PCP Rx Instructions: Inject, 3 times daily, after meals, based on sliding scale provided Lantus Solostar U-100 Insulin 100 unit/mL (3 mL) Insulin Pen 5 unit SUBCUT DAILY Qty: 15 0RF Hold Instructions: See PCP Lantus Solostar U-100 Insulin 100 unit/mL (3 mL) insulin pen 5 unit SUBCUT DAILY Qty: 15 0RF Hold Instructions: See PCP insulin aspart U-100 [Novolog Flexpen U-100 Insulin] 100 unit/mL (3 mL) insulin pen 1 unit SUBCUT TID Qty: 3 0RF Hold Instructions: See PCP Rx Instructions: Inject 3 times daily after meals based on sliding scale. isosorbide mononitrate 60 mg tablet extended release 24 hr 60 mg PO BID Qty: 60 0RF Hold Instructions: see pcp ondansetron 4 mg tablet,disintegrating 4 mg PO Q6H PRN (Reason: nausea and vomiting) Qty: 14 0RF ProAir HFA 90 mcg/actuation HFA aerosol inhaler 2 puff INHALATION Q4H PRN (Reason: Shortness Of Breath) 1 Days Qty: 30 0RF carvedilol 3.125 mg Tablet 3.125 mg PO Q12H 30 Days Qty: 60 1RF escitalopram oxalate 10 mg Tablet 10 mg PO DAILY 30 Days Qty: 30 1RF aripiprazole 10 mg Tablet 5 mg PO DAILY 30 Days Qty: 30 1RF atorvastatin 40 mg tablet 40 mg PO BEDTIME 30 Days Qty: 30 1RF ondansetron HCl 4 mg tablet 4 mg PO Q8H PRN (Reason: Nausea And Vomiting) 30 Days Qty: 60 1RF clopidogrel 75 mg tablet 75 mg PO QAM 30 Days Qty: 30 1RF aspirin 81 mg Tablet,Delayed Release (Dr/Ec) 81 mg PO QAM 30 Days Qty: 30 1RF Protonix 40 mg tablet,delayed release (DR/EC) 40 mg PO DAILY 30 Days Qty: 30 1RF Nitrostat 0.4 mg Tablet, Sublingual 0.4 mg SUBLINGUAL Q5M PRN (Reason: Chest Pain) 30 Days Qty: 60 1RF Rx Instructions: do not exceed 3 doses per episode ranolazine 500 mg tablet extended release 12 hr 500 mg PO BID 30 Days Qty: 60 1RF Discharge Orders: Discharge ED (Routine); Ordered 11/01/21 Ordered By: Edilberto Flannery Discharge Diet: Advance as tolerated Discharge Activity: Increase activity as tolerated Patient Instructions: Food Poisoning (ED) Activity Restrictions/Additional Instructions: Most food poisoning will resolve on its own. He did drink plenty of fluids. And use medication as needed for nausea and vomiting. Clear liquids for the next 24 hours. Increase diet to a full liquid and bland diet consisting of bananas, rice, apples, toast, and boiled chicken. Follow-up with primary care as needed. Return to ER for new concerns. Stand Alone Forms: Work/School Release Coding Level of Care Code ED [employer] for Marcelino Stephen
[2021-11-01 00:17] VITALS: BP 152/93; PULSE 80; RESP 20; TEMP 36.4; O2SAT 100; BMI 23.2
--- NOTE | 2021-11-01 00:17 | ECG_ITS ---
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 Measurements Intervals [place] Rate: 75 P: 53 WI: 162 QRS: 55 QRSD: 87 T: 38 QT: 352 QTc: 396 Interpretive Statements SINUS RHYTHM MODERATE VOLTAGE CRITERIA FOR LVH, CONSIDER NORMAL VARIANT [MEETS CRITERIA IN ONE OF: R(aVL), S(V1), R(V5), R(V5/V6)+S(V1)] Compared to ECG 10/31/2021 17:29:39 No significant changes Electronically Signed On 11-01-2021 12:41:05 CDT by Regine Bar M.D. [email or web address]
[2021-11-01] MEDS: ondansetron 4 MG Tablet PO (00:43)
[2021-11-01 00:46] VITALS: PULSE 86; RESP 16; O2SAT 95
== END 2021-11-01 00:47 | disposition home or self-care (01) ==
PROVIDERS: Emergency Provider Nurse Practitioner Family
DX: K52.9 Noninfective gastroenteritis and colitis, unspecified (principal); I25.110 Atherosclerotic heart disease of native coronary artery with unstable angina pectoris; I10 Essential (primary) hypertension; E11.9 Type 2 diabetes mellitus without complications; Z86.73 Personal history of transient ischemic attack (TIA), and cerebral infarction without residual deficits
CPT/HCPCS: 93005; 99283; Q0162

== ENCOUNTER 2021-11-01 09:55 | Emergency (ER) | payer OTHER, MEDICAID, SELFPAY ==
[2021-11-01 10:59] VITALS: BP 133/80; PULSE 85; RESP 18; TEMP 36.6; O2SAT 99
[2021-11-01 11:09] LABS: Glucose Point of Care 71 mg/dL (70-110)
--- NOTE | 2021-11-01 11:21 | ED_ITS ---
HPI - General Adult General: Chief complaint: General Medical Stated complaint: nausea/shakiness/sweating Time Seen by Provider: 11/01/21 11:06 Source: patient Mode of arrival: ambulatory Limitations: no limitations History of Present Illness: 46-year-old male presents to the emergency room with complaint of nausea and low blood sugar. He checked his blood sugar at home was 75. He states he felt shaky had not eaten. He denies any chest or abdominal pain no vomiting or diarrhea. Onset (ago): minute(s) Severity: mild Relieving factors: none Exacerbating factors: none Associated symptoms: Reports nausea; Deny chest pain, confusion, cough, diaphoresis, decreased appetite, dyspnea, fevers/chills, headache(s), malaise, rash, palpitations, seizures, short of breath, syncope, vomiting or weakness Treatments prior to arrival: none Review of Systems Const: Denies: malaise or diaphoresis ENMT: Denies: throat pain, ear or mastoid pain, nasal discharge or nasal congestion Card: Denies: chest pain, palpitations or syncope Resp: Denies: dyspnea GI: Reports: nausea; Denies: abdominal pain or vomiting : Denies: flank pain, difficulty urinating, dysuria, urinary frequency or urinary urgency Skin/Breast: Denies: rash Neuro: Denies: headache(s) or confusion PFS ED PFSH: Medical History Atherosclerotic heart disease of [place] coronary artery with unstable angina pectoris Benign essential HTN CAD (coronary artery disease) 9stents Chest pain CVA (cerebrovascular accident) Diabetes Dyslipidemia (high LDL; low HDL) Former smoker HTN (hypertension) Surgical History History of appendectomy Family History Other No pertinent family history Social History Smoking and tobacco status: former smoker Alcohol intake: never Housing: House Physical Exam Const: COMMON NORMALS: no acute distress GENERAL APPEARANCE: cooperative and comfortable ORIENTATION/CONSCIOUSNESS: Yes awake, Yes oriented to person, Yes oriented to place and Yes oriented to time HENMT: COMMON NORMALS: normocephalic, atraumatic and hearing grossly normal bilaterally HEAD & SCALP: normocephalic and atraumatic Neck/C-Spine: COMMON NORMALS: no JVD Resp: COMMON NORMALS: normal respiratory effort, No retractions, No use of accessory muscles and clear to auscultation bilaterally AUSCULTATION: clear to auscultation bilaterally Cardio: COMMON NORMALS: no JVD, regular rate, regular rhythm and No murmurs present (Cardio) RATE: regular rate RHYTHM: regular rhythm GI: COMMON NORMALS: Soft to palpation and No hepatosplenomegaly present AUSCULTATION: Yes normoactive bowel sounds PALPATION: Yes Soft to palpation, No Tenderness to palpation present (GI), No Guarding due to palpation present (GI) and Yes No hepatosplenomegaly present Extremity: COMMON NORMALS: normal to inspection, capillary refill normal, no clubbing, cyanosis or edema, no calf tenderness and no pedal edema Neuro: SENSORIUM/ORIENTATION: Yes oriented to person, Yes oriented to place and Yes oriented to time Skin: COMMON NORMALS: no rashes or lesions noted GENERAL SKIN EXAM: no rashes or lesions noted Course Vital Signs: Vital signs: Vital Signs Temperature 97.9 F 11/01/21 11:34 Pulse Rate 85 11/01/21 11:34 Respiratory Rate 18 11/01/21 11:34 Blood Pressure 133/80 11/01/21 11:34 Pulse Oximetry 99 11/01/21 11:34 [facility] - General Adult Medical Decision Making Patient awake and alert. Reviewed previous laboratory studies glucose confirmed patient has no neurologic deficits. He is not vomiting. His abdominal exam is benign. Discharge patient home encouraged to eat follow-up as needed. Medical Records I reviewed the patient's medical records. Lab Data I reviewed the patient's lab results. Laboratory Results POC Glucose 71 mg/dL (70-110) 11/01/21 11:06 Discharge Plan Discharge Patient Disposition: Home Clinical Impression: Nausea, Diabetes Condition: Stable Prescriptions: No Action mcdrvmwxex-kbgrrkbbpbrja-vhmc 50-325-40 mg tablet 2 tab PO BID PRN (Reason: Migraine Headache) 0RF Hold Instructions: interaction with aspirin insulin aspart U-100 [Novolog Flexpen U-100 Insulin] 100 unit/mL (3 mL) insulin pen See Rx Instructions .ROUTE .COMPLEX Qty: 15 0RF Hold Instructions: See PCP Rx Instructions: Inject, 3 times daily, after meals, based on sliding scale provided Lantus Solostar U-100 Insulin 100 unit/mL (3 mL) Insulin Pen 5 unit SUBCUT DAILY Qty: 15 0RF Hold Instructions: See PCP Lantus Solostar U-100 Insulin 100 unit/mL (3 mL) insulin pen 5 unit SUBCUT DAILY Qty: 15 0RF Hold Instructions: See PCP insulin aspart U-100 [Novolog Flexpen U-100 Insulin] 100 unit/mL (3 mL) insulin pen 1 unit SUBCUT TID Qty: 3 0RF Hold Instructions: See PCP Rx Instructions: Inject 3 times daily after meals based on sliding scale. isosorbide mononitrate 60 mg tablet extended release 24 hr 60 mg PO BID Qty: 60 0RF Hold Instructions: see pcp ondansetron 4 mg tablet,disintegrating 4 mg PO Q6H PRN (Reason: nausea and vomiting) Qty: 14 0RF ProAir HFA 90 mcg/actuation HFA aerosol inhaler 2 puff INHALATION Q4H PRN (Reason: Shortness Of Breath) 1 Days Qty: 30 0RF hydroxyzine HCl 25 mg tablet 25 mg PO Q8H PRN (Reason: nausea and vomiting) Qty: 10 0RF carvedilol 3.125 mg Tablet 3.125 mg PO Q12H 30 Days Qty: 60 1RF escitalopram oxalate 10 mg Tablet 10 mg PO DAILY 30 Days Qty: 30 1RF aripiprazole 10 mg Tablet 5 mg PO DAILY 30 Days Qty: 30 1RF atorvastatin 40 mg tablet 40 mg PO BEDTIME 30 Days Qty: 30 1RF ondansetron HCl 4 mg tablet 4 mg PO Q8H PRN (Reason: Nausea And Vomiting) 30 Days Qty: 60 1RF clopidogrel 75 mg tablet 75 mg PO QAM 30 Days Qty: 30 1RF aspirin 81 mg Tablet,Delayed Release (Dr/Ec) 81 mg PO QAM 30 Days Qty: 30 1RF Protonix 40 mg tablet,delayed release (DR/EC) 40 mg PO DAILY 30 Days Qty: 30 1RF Nitrostat 0.4 mg Tablet, Sublingual 0.4 mg SUBLINGUAL Q5M PRN (Reason: Chest Pain) 30 Days Qty: 60 1RF Rx Instructions: do not exceed 3 doses per episode ranolazine 500 mg tablet extended release 12 hr 500 mg PO BID 30 Days Qty: 60 1RF Discharge Orders: Discharge ED (Routine); Ordered 11/01/21 Ordered By: Kam Martinez Discharge Diet: Usual diet Discharge Activity: Resume usual activity Patient Instructions: Opioid Safety Activity Restrictions/Additional Instructions: Follow-up with your primary care doctor next week. Coding Level of Care Code ED Screw Cutter for Marcelino Stephen
[2021-11-01 11:29] VITALS: BP 133/80; PULSE 85; RESP 18; TEMP 36.6; O2SAT 99
[2021-11-01 11:33] VITALS: BP 138/74; PULSE 79; RESP 16; TEMP 36.1; O2SAT 99
[2021-11-01 11:34] VITALS: BP 133/80; PULSE 85; RESP 18; TEMP 36.6; O2SAT 99
== END 2021-11-01 11:34 | disposition home or self-care (01) ==
PROVIDERS: Nurse Practitioner Family; Emergency Provider Family Medicine
DX: R11.0 Nausea (principal); E11.9 Type 2 diabetes mellitus without complications; Z79.4 Long term (current) use of insulin
CPT/HCPCS: 36416; 82962; 99282

== ENCOUNTER 2021-11-04 08:13 | Emergency (ER) | payer OTHER, MEDICAID, SELFPAY ==
[2021-11-04 08:16] VITALS: BP 124/76; PULSE 81; RESP 14; TEMP 36.9; O2SAT 100; BMI 23.3
--- NOTE | 2021-11-04 08:24 | ECG_ITS ---
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 Measurements Intervals [place] Rate: 90 P: 43 OR: 145 QRS: 47 QRSD: 80 T: 43 QT: 327 QTc: 401 Interpretive Statements SINUS RHYTHM MODERATE VOLTAGE CRITERIA FOR LVH, CONSIDER NORMAL VARIANT [MEETS CRITERIA IN ONE OF: R(aVL), S(V1), R(V5), R(V5/V6)+S(V1)] Compared to ECG 11/01/2021 00:24:24 No significant changes Electronically Signed On 11-04-2021 17:13:09 CDT by Heath Pacheco M.D. [id number]
--- NOTE | 2021-11-04 08:28 | ED_ITS ---
HPI - Chest Pain General: Chief Complaint: Chest Pain Stated Complaint: Chest Pains Time Seen by Provider: 11/04/21 08:17 Source: patient Mode of arrival: ambulatory Limitations: no limitations History of Present Illness: 46-year-old male presents complaining of chest pain that has been ongoing for 18 hours. Patient reports having taken 3 nitroglycerin with no relief of pain.Patient has known history of coronary disease and has had stents in the past. This year he has had 3 cardiac catheterization 2 at other facilities one in our facility. He has been in multiple times in the last several months. He is also had multiple CT examinations including of the chest. He frequently presents complaining of either chest pain or stating he had a stroke. 1 time he was treated with tPA subsequent times because of his frequent complaint and spontaneous recovery as there is been hesitation to treat him aggressively out of concern of causing harm. On 09/03/2021 Dr. Pacheco did a coronary angiogram on him which showed no disease in any coronary arteries and he had patent stents where he had previously been stented. Patient presents today complaining of left-sided chest pain. States it radiates into his left arm. Complaint is similar to his previous presentations here. Initial EKG does not show any acute changes unchanged from previous EKGs. MD complaint: chest pain Pertinent past history: coronary artery disease and other (Diabetes.) Onset (ago): hour(s) (18) Timing of current episode: episodic Prior episodes: Yes Onset: during rest Pain location: left chest Pain radiation: left arm Quality: aching and sharp Relieving factors: nothing Exacerbating factors: nothing Associated symptoms: Deny abdominal pain, diaphoresis, dyspnea, fever(s), leg edema, nausea, palpitations, sense of impending doom, syncope or vomiting Treatment prior to arrival: nitroglycerin (X3) Risk Factors: Coronary artery disease risk factors: diabetes and smoking history Review of Systems Const: Denies: fever(s), chills, body aches or diaphoresis ENMT: Denies: throat pain, ear or mastoid pain, nasal discharge or nasal congestion Card: Reports: chest pain; Denies: palpitations, edema or syncope Resp: Denies: dyspnea GI: Denies: abdominal pain, nausea or vomiting : Denies: flank pain, difficulty urinating, dysuria, urinary frequency or urinary urgency Skin/Breast: Denies: rash or pruritus PFSH ED PFSH: Medical History Atherosclerotic heart disease of [place] coronary artery with unstable angina pectoris Benign essential HTN CAD (coronary artery disease) 9stents Chest pain CVA (cerebrovascular accident) Diabetes Dyslipidemia (high LDL; low HDL) Former smoker HTN (hypertension) Surgical History History of appendectomy Family History Other No pertinent family history Social History Smoking and tobacco status: former smoker Alcohol intake: never Housing: House Physical Exam Const: COMMON NORMALS: no acute distress GENERAL APPEARANCE: cooperative and comfortable ORIENTATION/CONSCIOUSNESS: Yes awake, Yes oriented to person, Yes oriented to place and Yes oriented to time HENMT: COMMON NORMALS: normocephalic, atraumatic and hearing grossly normal bilaterally HEAD & SCALP: normocephalic and atraumatic Neck/C-Spine: COMMON NORMALS: no JVD Resp: COMMON NORMALS: normal respiratory effort, No retractions, No use of accessory muscles and clear to auscultation bilaterally AUSCULTATION: clear to auscultation bilaterally Cardio: COMMON NORMALS: no JVD, regular rate, regular rhythm and No murmurs present (Cardio) RATE: regular rate RHYTHM: regular rhythm GI: COMMON NORMALS: Soft to palpation and No hepatosplenomegaly present AUSCULTATION: Yes normoactive bowel sounds PALPATION: Yes Soft to palpation, No Tenderness to palpation present (GI), No Guarding due to palpation present (GI) and Yes No hepatosplenomegaly present Extremity: COMMON NORMALS: normal to inspection, capillary refill normal, no clubbing, cyanosis or edema, no calf tenderness and no pedal edema Neuro: SENSORIUM/ORIENTATION: Yes oriented to person, Yes oriented to place and Yes oriented to time Skin: COMMON NORMALS: no rashes or lesions noted GENERAL SKIN EXAM: no rashes or lesions noted Course Vital Signs: Vital signs: Vital Signs Temperature 98.4 F 11/04/21 08:16 Pulse Rate 81 05/17/22 08:16 Respiratory Rate 14 11/04/21 08:16 Blood Pressure 139/68 11/04/21 09:10 Pulse Oximetry 100 11/04/21 08:16 MDM - Chest Pain Medical Decision Making Patient has had extensive work-up in the past with multiple heart catheterizations and CTs. Chest x-ray is unremarkable there is no pneumonia no widening of the mediastinum no sign of pneumothorax. As I vital signs are essentially normal his EKG does not show any acute changes. At this point in think we can discharge the patient home follow-up with his primary care doctor I did encourage him to double up on his Protonix for 1 week his symptoms resolved the time discharge. Medical Records I reviewed the patient's medical records. Lab Data I reviewed the patient's lab results. Radiology Impressions Chest X-Ray 11/04/21 08:28 IMPRESSION: No acute cardiopulmonary abnormality identified. Discharge Plan Discharge Patient Disposition: Home Clinical Impression: Atypical chest pain Condition: Stable Prescriptions: No Action wuwtebkkzf-amzpliotxnadv-cdad 50-325-40 mg tablet 2 tab PO BID PRN (Reason: Migraine Headache) 0RF Hold Instructions: interaction with aspirin insulin aspart U-100 [Novolog Flexpen U-100 Insulin] 100 unit/mL (3 mL) insulin pen See Rx Instructions .ROUTE .COMPLEX Qty: 15 0RF Hold Instructions: See PCP Rx Instructions: Inject, 3 times daily, after meals, based on sliding scale provided Lantus Solostar U-100 Insulin 100 unit/mL (3 mL) Insulin Pen 5 unit SUBCUT DAILY Qty: 15 0RF Hold Instructions: See PCP Lantus Solostar U-100 Insulin 100 unit/mL (3 mL) insulin pen 5 unit SUBCUT DAILY Qty: 15 0RF Hold Instructions: See PCP insulin aspart U-100 [Novolog Flexpen U-100 Insulin] 100 unit/mL (3 mL) insulin pen 1 unit SUBCUT TID Qty: 3 0RF Hold Instructions: See PCP Rx Instructions: Inject 3 times daily after meals based on sliding scale. isosorbide mononitrate 60 mg tablet extended release 24 hr 60 mg PO BID Qty: 60 0RF Hold Instructions: see pcp ondansetron 4 mg tablet,disintegrating 4 mg PO Q6H PRN (Reason: nausea and vomiting) Qty: 14 0RF ProAir HFA 90 mcg/actuation HFA aerosol inhaler 2 puff INHALATION Q4H PRN (Reason: Shortness Of Breath) 1 Days Qty: 30 0RF hydroxyzine HCl 25 mg tablet 25 mg PO Q8H PRN (Reason: nausea and vomiting) Qty: 10 0RF carvedilol 3.125 mg Tablet 3.125 mg PO Q12H 30 Days Qty: 60 1RF escitalopram oxalate 10 mg Tablet 10 mg PO DAILY 30 Days Qty: 30 1RF aripiprazole 10 mg Tablet 5 mg PO DAILY 30 Days Qty: 30 1RF atorvastatin 40 mg tablet 40 mg PO BEDTIME 30 Days Qty: 30 1RF ondansetron HCl 4 mg tablet 4 mg PO Q8H PRN (Reason: Nausea And Vomiting) 30 Days Qty: 60 1RF clopidogrel 75 mg tablet 75 mg PO QAM 30 Days Qty: 30 1RF aspirin 81 mg Tablet,Delayed Release (Dr/Ec) 81 mg PO QAM 30 Days Qty: 30 1RF Protonix 40 mg tablet,delayed release (DR/EC) 40 mg PO DAILY 30 Days Qty: 30 1RF Nitrostat 0.4 mg Tablet, Sublingual 0.4 mg SUBLINGUAL Q5M PRN (Reason: Chest Pain) 30 Days Qty: 60 1RF Rx Instructions: do not exceed 3 doses per episode ranolazine 500 mg tablet extended release 12 hr 500 mg PO BID 30 Days Qty: 60 1RF Discharge Orders: Discharge ED (Routine); Ordered 11/04/21 Ordered By: Kam Martinez Referrals: Cecily Miller MD [Primary Care Provider] - Patient Instructions: Opioid Safety Activity Restrictions/Additional Instructions: Follow-up with your primary care doctor as needed. Coding Level of Care Code ED Lead Principal Technical Architect for Chg Fwd Exam Comprehensive
--- NOTE | 2021-11-04 08:28 | XRR_ITS ---
PROCEDURE INFORMATION: Exam: XR Chest Exam date and time: 11/04/2021 8:32 AM Age: 46 years old Clinical indication: Chest pain/angina pectoris. Cardiac stents. TECHNIQUE: Imaging protocol: XR of the chest. Views: 1 view. COMPARISON: CR (CHEST, ) 10/31/2021 5:18 PM FINDINGS: Lungs: No pulmonary consolidation. Pleural spaces: No pleural effusion. No pneumothorax. Heart/Mediastinum: The cardiac silhouette is approximately unchanged given differences in patient rotation. No gross evidence of pneumomediastinum. Bones/joints: No gross fracture. XR/XR chest 1V portable [id number] IMPRESSION: No acute cardiopulmonary abnormality identified.
[2021-11-04] MEDS: lidocaine 2% viscous 15 ML, aluminum-mag hydrox-simethicon 30 ML, sucralfate oral liq 1 GM PO (08:36)
[2021-11-04 09:10] VITALS: BP 139/68
== END 2021-11-04 09:11 | disposition home or self-care (01) ==
PROVIDERS: Emergency Provider Family Medicine; PCP Internal Medicine
DX: R07.89 Other chest pain (principal); Z79.82 Long term (current) use of aspirin; I25.110 Atherosclerotic heart disease of native coronary artery with unstable angina pectoris; I10 Essential (primary) hypertension; Z86.73 Personal history of transient ischemic attack (TIA), and cerebral infarction without residual deficits; E11.9 Type 2 diabetes mellitus without complications; E78.5 Hyperlipidemia, unspecified
CPT/HCPCS: 71045; 93005; 99283

== ENCOUNTER 2021-11-05 18:36 | Emergency (ER) | payer OTHER, SELFPAY ==
[2021-11-05] VITALS (8 sets, daily range): BP systolic 134–170; BP diastolic 77–94; PULSE 78–105; RESP 16–19; TEMP 36.8; O2SAT 96–99; BMI 23.8
--- NOTE | 2021-11-05 18:42 | ECG_ITS ---
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 Measurements Intervals [place] Rate: 96 P: 67 GA: 151 QRS: 68 QRSD: 82 T: 56 QT: 315 QTc: 400 Interpretive Statements SINUS RHYTHM VOLTAGE CRITERIA FOR LVH [MEETS CRITERIA IN ONE OF: R(aVL), S(V1), R(V5), R(V5/V6)+S(V1)] Compared to ECG 11/04/2021 08:30:53 No significant changes Electronically Signed On 11-05-2021 20:15:59 CDT by Regine Bar M.D. [id number]
--- NOTE | 2021-11-05 18:48 | ED_ITS ---
HPI - Chest Pain General: Chief Complaint: Chest Pain Stated Complaint: syncope Time Seen by Provider: 11/05/21 18:48 History of Present Illness: Mr. June is a 46-year-old gentleman who returns to the emergency department due to concern of chest pain and apparent syncope. He reports feeling a little more weak at work earlier today however is largely been at his baseline health. Shortly before presenting to the emergency department he developed left anterior chest pain which she is pressure-like without other typical cardiac features. He then reports having syncope and lety ing the back of his head and now has a headache. Intensity symptoms is moderate. Course has persisted. He has had very similar episodes in the past. No other specific changes in health, exacerbating, or alleviating factors identified. Onset (ago): minute(s) Timing of current episode: constant Prior episodes: Yes Severity: moderate Quality: other Review of Systems General: Reports: 10 or more systems reviewed and unremarkable except in HPI and below PFSH ED PFSH: Medical History Atherosclerotic heart disease of [place] coronary artery with unstable angina pectoris Benign essential HTN CAD (coronary artery disease) 9stents Chest pain CVA (cerebrovascular accident) Diabetes Dyslipidemia (high LDL; low HDL) Former smoker HTN (hypertension) Surgical History History of appendectomy Family History Other No pertinent family history Social History Smoking and tobacco status: former smoker Alcohol intake: never Housing: House Physical Exam Const: COMMON NORMALS: alert GENERAL APPEARANCE: cooperative and well developed HENMT: COMMON NORMALS: normocephalic and atraumatic HEAD & SCALP: normocephalic and atraumatic Eye: COMMON NORMALS: conjunctivae normal CONJUNCTIVA: Yes conjunctivae normal SCLERA: sclerae normal Neck/C-Spine: COMMON NORMALS: supple GENERAL: Yes trachea midline Resp: COMMON NORMALS: normal respiratory effort and clear to auscultation bilaterally EFFORT & INSPECTION: Yes able to speak in complete sentences AUSCULTATION: clear to auscultation bilaterally Cardio: COMMON NORMALS: regular rate and regular rhythm RATE: regular rate RHYTHM: regular rhythm GI: COMMON NORMALS: Soft to palpation PALPATION: Yes Soft to palpation and No Tenderness to palpation present (GI) PERCUSSION: normal to percussion Extremity: GENERAL: Yes normal exam except as noted and No edema Neuro: COMMON NORMALS: moves all extremities SENSORIUM/ORIENTATION: Yes alert and No Orientation impaired Psych: COMMON NORMALS: mental status grossly normal and Normal thought process present THOUGHT PROCESS: Normal thought process present Course ED course: - Patient was seen and evaluated by me at bedside - Patient placed on cardiac monitors - Initial evaluation notable for exam as above. EKG showing sinus rhythm with no STEMI. - Upon review of security camera footage fall was fairly controlled to ground however given that patient is on antiplatelet agents and reportedly struck his head CT imaging is felt to be required - Imaging notable for CT head negative for acute finding. The patient reportedl y had an episode of mental status decrease for very short period of time while at CT however upon charge nurse evaluation patient breathing with strong pulse and readily responsive to verbal stimuli. As such, however, laboratory studies ordered. Chest x-ray with no lobar consolidation or pneumothorax -Labs negative for significant acute change or abnormality to explain symptoms - Upon serial reexamination after treatment the patient was similar - Based on patient history, evaluation, and testing as interpreted the most likely cause of the patient's condition is unspecified chest pain. The patient has had extensive cardiac evaluation and frequent ED visits for similar without acute findings identified. Therefore, he does not require further inpatient evaluation. - The results of ED evaluation were given to the patient including followup plan and return precautions. The patient verbalized understanding and felt safe for discharge. - Patient discharged in satisfactory condition. Note: Click bubbles or prepopulated voss in note writing are used for assistance with data collection and billing and are inherently more limited than narrative and other text portions of this note. Please use narrative for additional clinical history and defer to narrative/free test for any case of contradictory information. If information appears in only free text or click bubble it should be considered present or absent as reported. Please contact note underwriter for clarifications of clinical information or contradictory information. MDM is a brief summary, contradictory or erroneous seeming information should be clarified and full note should be reviewed. Vital Signs: Vital signs: Vital Signs Temperature 98.2 F 11/05/21 18:38 Pulse Rate 99 11/05/21 22:27 Respiratory Rate 19 H 11/05/21 22:27 Blood Pressure 134/77 11/05/21 22:27 Pulse Oximetry 96 11/05/21 22:27 MDM - Chest Pain Medical Decision Making 46-year-old male returning to the emergency department due to chest pain. Negative ED evaluation. Satisfactory for outpatient management. Medical Records I reviewed the patient's medical records. Lab Data I reviewed the patient's lab results. : 11/05/21 20:28 11/05/21 20:[address] 11/05/21 19:38 IMPRESSION: No acute intracranial abnormality. Chest X-Ray 11/05/21 19:53 IMPRESSION: No acute findings. Laboratory Results WBC 7.9 10^3/uL (4.0-10.0) 11/05/21 20: RBC 4.89 10^6/uL (4.1-5.3) 11/05/21 20: Hgb 11.2 g/dL (11.7-16.6) L 11/05/21: Hct 34.5 % (42.0-52.0) L 11/05/21 20: MCV 70.6 fl (80-94) L 11/05/21 20: MCH 22.9 pg (28.0-34.0) L 11/05/21 20: MCHC 32.5 g/dL (30.0-36.0) 11/05/21 20: RDW 15.8 % (12.1-15.1) H 11/05/21 20: Plt Count 255 10^3/cmm (130-400) 11/05/21: MPV 11.3 fL (7.4-10.4) H 11/05/21 20: Neut % (Auto) 57.5 % 11/05/21 20: Lymph % (Auto) 23.5 % 11/05/21 20: B[place]le % (Auto) 12.8 % 11/05/21: Eos % (Auto) 5.3 % 11/05/21 20: Baso % (Auto) 0.6 % 11/05/21 20: Neut # (Auto) 4.53 10^3/uL (1.8-7.7) 11/05/21:28 Lymph # (Auto) 1.9 10^3/uL (0.8-4.8) 11/05/21 20:28 [place]eadle # (Auto) 1.0 10^3/uL (0.2-0.9) H 11/05/21 20:28 Eos # (Auto) 0.4 10^3/uL (0.0-0.8) 11/05/21 20: Baso # (Auto) 0.1 10^3/uL (0.0-0.1) 11/05/21 20: Nucleated RBC % (auto) 0 % 11/05/21 20: Nucleated RBCs # 0.0 /100WBC 11/05/21 20: Sodium 139 mmol/L (136-145) 11/05/21 20: Potassium 3.7 mmol/L (3.5-5.1) 11/05/21 20: Chloride 105 mmol/L (98-107) 11/05/21 20: Carbon Dioxide 23 mmol/L (22-29) 11/05/21 20: Anion Gap 14.7 (5-19) 11/05/21 20: BUN 20 mg/dL (6-20) 11/05/21 20: Creatinine 0.9 mg/dL (0.7-1.2) 11/05/21 20: GFR Calculation 91.7 mL/min (90-130) 11/05/21 20: Glucose 106 mg/dL (65-115) 11/05/21 20: POC Glucose 124 mg/dL (70-110) H 11/05/21 19:08 Calculated Osmolality 291 mOsm/kg (285-295) 11/05/21 20: Calcium 8.9 mg/dL (8.5-10.5) 11/05/21 20: Magnesium 2.0 mg/dL (1.7-2.3) 11/05/21 20: Discharge Plan Discharge Patient Disposition: Home Clinical Impression: Chest pain, Malingering, Syncope, Headache, Fall Condition: Stable Prescriptions: No Action clopidogrel 75 mg tablet 75 mg PO QAM Qty: 30 1RF [id number]-[id number]-[id number] 50-325-40 mg tablet 2 tab PO BID PRN (Reason: Migraine Headache) 0RF Hold Instructions: interaction with aspirin insulin aspart U-100 [Novolog Flexpen U-100 Insulin] 100 unit/mL (3 mL) insulin pen See Rx Instructions .ROUTE .COMPLEX Qty: 15 0RF Hold Instructions: See PCP Rx Instructions: Inject, 3 times daily, after meals, based on sliding scale provided Lantus Solostar U-100 Insulin 100 unit/mL (3 mL) Insulin Pen 5 unit SUBCUT DAILY Qty: 15 0RF Hold Instructions: See PCP Lantus Solostar U-100 Insulin 100 unit/mL (3 mL) insulin pen 5 unit SUBCUT DAILY Qty: 15 0RF Hold Instructions: See PCP insulin aspart U-100 [Novolog Flexpen U-100 Insulin] 100 unit/mL (3 mL) insulin pen 1 unit SUBCUT TID Qty: 3 0RF Hold Instructions: See PCP Rx Instructions: Inject 3 times daily after meals based on sliding scale. isosorbide mononitrate 60 mg tablet extended release 24 hr 60 mg PO BID Qty: 60 0RF Hold Instructions: see pcp ondansetron 4 mg tablet,disintegrating 4 mg PO Q6H PRN (Reason: nausea and vomiting) Qty: 14 0RF ProAir HFA 90 mcg/actuation HFA aerosol inhaler 2 puff INHALATION Q4H PRN (Reason: Shortness Of Breath) 1 Days Qty: 30 0RF hydroxyzine HCl 25 mg tablet 25 mg PO Q8H PRN (Reason: nausea and vomiting) Qty: 10 0RF carvedilol 3.125 mg Tablet 3.125 mg PO Q12H 30 Days Qty: 60 1RF escitalopram oxalate 10 mg Tablet 10 mg PO DAILY 30 Days Qty: 30 1RF aripiprazole 10 mg Tablet 5 mg PO DAILY 30 Days Qty: 30 1RF atorvastatin 40 mg tablet 40 mg PO BEDTIME 30 Days Qty: 30 1RF ondansetron HCl 4 mg tablet 4 mg PO Q8H PRN (Reason: Nausea And Vomiting) 30 Days Qty: 60 1RF aspirin 81 mg Tablet,Delayed Release (Dr/Ec) 81 mg PO QAM 30 Days Qty: 30 1RF Protonix 40 mg tablet,delayed release (DR/EC) 40 mg PO DAILY 30 Days Qty: 30 1RF Nitrostat 0.4 mg Tablet, Sublingual 0.4 mg SUBLINGUAL Q5M PRN (Reason: Chest Pain) 30 Days Qty: 60 1RF Rx Instructions: do not exceed 3 doses per episode ranolazine 500 mg tablet extended release 12 hr 500 mg PO BID 30 Days Qty: 60 1RF methocarbamol 750 mg tablet 750 mg PO Q6H PRN (Reason: spasms) Qty: 20 0RF Discharge Orders: Discharge ED (Routine); Ordered 11/05/21 Ordered By: Harjinder Bowen Referrals: Cecily Miller MD [Primary Care Provider] - Discharge Diet: Usual diet Discharge Activity: Resume usual activity Patient Instructions: Chest Pain (ED), Syncope (ED), Head Injury (ED), Opioid Safety Activity Restrictions/Additional Instructions: Please follow-up with your primary care provider and previously scheduled appointments. Return to the emergency department as needed. Coding Level of Care Code ED Supervisor Grading for Marcelino Stephen
[2021-11-05 19:26] LABS: Glucose Point of Care 124 mg/dL (70-110)
--- NOTE | 2021-11-05 19:38 | CTR_ITS ---
PROCEDURE INFORMATION: Exam: CT Head Without Contrast Exam date and time: 11/05/2021 7:50 PM Age: 46 years old Clinical indication: Injury or trauma; Fall; Unconscious; Additional info: Fall, hit back of head, on asa/plavix TECHNIQUE: Imaging protocol: Computed tomography of the head without contrast. Radiation optimization: All CT scans at this facility use at least one of these dose optimization techniques: automated exposure control; mA and/or kV adjustment per patient size (includes targeted exams where dose is matched to clinical indication); or iterative reconstruction. COMPARISON: CT head wo con* [id number] 10/31/2021 6:47 PM RADIATION DOSE METRICS: Total DLP (mGy-cm): 847.7 FINDINGS: Brain: Normal. No hemorrhage. Unremarkable white matter. No mass effect. Cerebral ventricles: No ventriculomegaly. Paranasal sinuses: Visualized sinuses are unremarkable. No fluid levels. Mastoid air cells: Visualized mastoid air cells are well aerated. Bones/joints: Unremarkable. No acute fracture. Soft tissues: Unremarkable. CT/CT head wo con* [id number] IMPRESSION: No acute intracranial abnormality.
--- NOTE | 2021-11-05 19:53 | XRR_ITS ---
PROCEDURE INFORMATION: Exam: XR Chest Exam date and time: 11/05/2021 7:58 PM Age: 46 years old Clinical indication: Chest wall pain; Additional info: Chest pain TECHNIQUE: Imaging protocol: XR of the chest. Views: 1 view. COMPARISON: CR XR chest 1V portable [id number] 11/04/2021 8:32 AM FINDINGS: Lungs: Unremarkable. No consolidation. Pleural spaces: Unremarkable. No pleural effusion. No pneumothorax. Heart/Mediastinum: Unremarkable. No cardiomegaly. Bones/joints: Unremarkable. XR/XR chest 1V portable [id number] IMPRESSION: No acute findings.
[2021-11-05 20:33] LABS: Basophils # 0.1 10^3/uL (0.0-0.1); Basophils % 0.6 %; Eosinophils # 0.4 10^3/uL (0.0-0.8); Eosinophils % 5.3 %; Hematocrit 34.5 % (42.0-52.0); Hemoglobin 11.2 g/dL (11.7-16.6); Lymphocytes # 1.9 10^3/uL (0.8-4.8); Lymphocytes % 23.5 %; Mean Corpuscular HGB Conc 32.5 g/dL (30.0-36.0); Mean Corpuscular Hemoglobin 22.9 pg (28.0-34.0); Mean Corpuscular Volume 70.6 fl (80-94); Mean Platelet Volume 11.3 fL (7.4-10.4); Monocytes % 12.8 %; Neutrophils # 4.53 10^3/uL (1.8-7.7); Neutrophils % 57.5 %; Nucleated Red Blood Cells % 0 %; Platelet Count 255 10^3/cmm (130-400); Red Blood Count 4.89 10^6/uL (4.1-5.3); Red Cell Distribution Width 15.8 % (12.1-15.1); White Blood Count 7.9 10^3/uL (4.0-10.0)
--- NOTE | 2021-11-05 20:46 | PC.NURSE ---
This nurse was called over to CT for pt becoming suddenly unresponsive. On arrival pt was breathing but eyes closed and not verbally responding. Carotid pulse was present. When I told pt he needed to wake up and open his eyes he looked at me and grimaced. Head CT continued and pt placed on monitor. VSS.
[2021-11-05 20:53] LABS: Blood Urea Nitrogen 20 mg/dL (6-20); Calcium 8.9 mg/dL (8.5-10.5); Carbon Dioxide 23 mmol/L (22-29); Chloride 105 mmol/L (98-107); Glomerular Filtration Rate 91.7 mL/min (90-130); Glucose 106 mg/dL (65-115); Osmolality Calculated 291 mOsm/kg (285-295); Sodium 139 mmol/L (136-145)
[2021-11-05] MEDS: ondansetron 2 mg/ML SDV 2 mL 4 MG IM (21:07)
[2021-11-05 21:24] LABS: Anion Gap 14.7 (5-19); Potassium 3.7 mmol/L (3.5-5.1)
== END 2021-11-05 22:10 | disposition home or self-care (01) ==
PROVIDERS: Emergency Provider Emergency Medicine; PCP Internal Medicine
DX: R07.9 Chest pain, unspecified (principal); Z87.891 Personal history of nicotine dependence; R51.9 Headache, unspecified; W19.XXXA Unspecified fall, initial encounter; Z79.02 Long term (current) use of antithrombotics/antiplatelets; Z79.4 Long term (current) use of insulin; Z79.82 Long term (current) use of aspirin
CPT/HCPCS: 36416; 70450; 71045; 80048; 82962; 83735; 85025; 93005; 96372; 99284; J2405

== ENCOUNTER 2021-11-10 04:59 | Emergency (ER) | payer OTHER, SELFPAY ==
[2021-11-10 05:04] VITALS: BP 118/73; PULSE 85; RESP 16; TEMP 36.6; O2SAT 98; BMI 23.8
--- NOTE | 2021-11-10 05:10 | ED_ITS ---
Documented by User: Harjinder Bowen MD 11/23/21 23:48 HPI - Back Pain/Injury General: Chief Complaint: Back Pain/Injury Stated Complaint: low back pain Time Seen by Provider: 11/10/21 05:10 History of Present Illness: Mr. June is a 46-year-old gentleman well-known to this emergency department who presents to the emergency department due to back pain. He reports nontraumatic onset of symptoms that woke him up from sleep at about 11 PM. He describes moderate to severe aching back pain bilaterally. There is no significant radiation. No known provoking factors. Symptoms are worse with movement and palpation. He tried ibuprofen without significant relief. No associated GI symptoms. He does report possibly increased urination. No loss of bowel or bladder continence or control. No saddle anesthesia. Otherwise denies changes in health. No other specific changes in health, exacerbating, or alleviating factors identified. Onset (ago): hour(s) Severity: moderate Similar Symptoms Previously: No Quality: sharp and aching Review of Systems General: Reports: 10 or more systems reviewed and unremarkable except in HPI and below PFSH ED PFSH: Medical History Atherosclerotic heart disease of [place] coronary artery with unstable angina pectoris Benign essential HTN CAD (coronary artery disease) 9stents Chest pain CVA (cerebrovascular accident) Diabetes Dyslipidemia (high LDL; low HDL) Former smoker HTN (hypertension) Surgical History History of appendectomy Family History Other No pertinent family history Social History Smoking and tobacco status: former smoker Alcohol intake: never Housing: House Physical Exam Const: COMMON NORMALS: alert GENERAL APPEARANCE: cooperative and well developed HENMT: COMMON NORMALS: normocephalic and atraumatic HEAD & SCALP: normocephalic and atraumatic Eye: COMMON NORMALS: conjunctivae normal CONJUNCTIVA: Yes conjunctivae normal SCLERA: sclerae normal Neck/C-Spine: COMMON NORMALS: supple GENERAL: Yes trachea midline Resp: COMMON NORMALS: normal respiratory effort EFFORT & INSPECTION: Yes able to speak in complete sentences Cardio: COMMON NORMALS: regular rate and regular rhythm RATE: regular rate RHYTHM: regular rhythm GI: COMMON NORMALS: Soft to palpation PALPATION: Yes Soft to palpation and No Tenderness to palpation present (GI) PERCUSSION: normal to percussion Back/Pelvis: LUMBAR SPINE/LOWER BACK: Yes paraspinal muscle tenderness Extremity: GENERAL: Yes normal exam except as noted and No edema Neuro: COMMON NORMALS: moves all extremities SENSORIUM/ORIENTATION: Yes alert and No Orientation impaired Psych: COMMON NORMALS: mental status grossly normal and Normal thought process present THOUGHT PROCESS: Normal thought process present Course Vital Signs: Vital signs: Vital Signs Temperature 98.1 F 11/10/21 06:22 Pulse Rate 81 11/10/21 06:22 Respiratory Rate 18 11/10/21 06:22 Blood Pressure 114/69 11/10/21 06:22 Pulse Oximetry 99 11/10/21 06:22 MDM - Back Pain/Injury Medical Decision Making 46-year-old gentleman presenting to the emergency department due to back pain. No red flag symptoms. Patient care handed off to morning ED physician pending urinalysis with likely plan to discharge if negative. Patient presents here with low back pain he is well-appearing here feels much improved urine is normal no signs of kidney infection or kidney stone he is stable for discharge return if worsening he has no signs of epidural abscess or cord compression Medical Records I reviewed the patient's medical records. Labs I reviewed the patient's lab results. Laboratory Results Urine Color Yellow (Yellow) 11/10/21 05:57 Urine Appearance Clear (CLEAR) 11/10/21 05:57 Urine pH 6 (5-7) 11/10/21 05:57 Ur Specific [place] 1.020 (1.005-1.030) 11/10/21 05:57 Urine Protein Neg (Negative) 11/10/21 05:57 Urine Glucose (UA) Norm (Normal) 11/10/21 05:57 Urine Ketones Negative (Negative) 11/10/21 05:57 Urine Blood Neg (Negative) 11/10/21 05:57 Urine Nitrate Negative (Negative) 11/10/21 05:57 Urine Bilirubin Neg (Negative) 11/10/21 05:57 Urine Urobilinogen 1 mg/dL (Negative) H 11/10/21 05:57 Ur Leukocyte Esterase Negative (Negative) 11/10/21 05:57 Discharge Plan Discharge Patient Disposition: Home Clinical Impression: Back pain Condition: Stable Prescriptions: New methocarbamol 750 mg tablet 750 mg PO Q6H PRN (Reason: spasms) Qty: 20 0RF No Action clopidogrel 75 mg tablet 75 mg PO QAM Qty: 30 1RF [id number]-ipdvubaonyjym-dfax 50-325-40 mg tablet 2 tab PO BID PRN (Reason: Migraine Headache) 0RF Hold Instructions: interaction with aspirin insulin aspart U-100 [Novolog Flexpen U-100 Insulin] 100 unit/mL (3 mL) insulin pen See Rx Instructions .ROUTE .COMPLEX Qty: 15 0RF Hold Instructions: See PCP Rx Instructions: Inject, 3 times daily, after meals, based on sliding scale provided Lantus Solostar U-100 Insulin 100 unit/mL (3 mL) Insulin Pen 5 unit SUBCUT DAILY Qty: 15 0RF Hold Instructions: See PCP Lantus Solostar U-100 Insulin 100 unit/mL (3 mL) insulin pen 5 unit SUBCUT DAILY Qty: 15 0RF Hold Instructions: See PCP insulin aspart U-100 [Novolog Flexpen U-100 Insulin] 100 unit/mL (3 mL) insulin pen 1 unit SUBCUT TID Qty: 3 0RF Hold Instructions: See PCP Rx Instructions: Inject 3 times daily after meals based on sliding scale. isosorbide mononitrate 60 mg tablet extended release 24 hr 60 mg PO BID Qty: 60 0RF Hold Instructions: see pcp ondansetron 4 mg tablet,disintegrating 4 mg PO Q6H PRN (Reason: nausea and vomiting) Qty: 14 0RF ProAir HFA 90 mcg/actuation HFA aerosol inhaler 2 puff INHALATION Q4H PRN (Reason: Shortness Of Breath) 1 Days Qty: 30 0RF hydroxyzine HCl 25 mg tablet 25 mg PO Q8H PRN (Reason: nausea and vomiting) Qty: 10 0RF carvedilol 3.125 mg Tablet 3.125 mg PO Q12H 30 Days Qty: 60 1RF escitalopram oxalate 10 mg Tablet 10 mg PO DAILY 30 Days Qty: 30 1RF aripiprazole 10 mg Tablet 5 mg PO DAILY 30 Days Qty: 30 1RF atorvastatin 40 mg tablet 40 mg PO BEDTIME 30 Days Qty: 30 1RF ondansetron HCl 4 mg tablet 4 mg PO Q8H PRN (Reason: Nausea And Vomiting) 30 Days Qty: 60 1RF aspirin 81 mg Tablet,Delayed Release (Dr/Ec) 81 mg PO QAM 30 Days Qty: 30 1RF Protonix 40 mg tablet,delayed release (DR/EC) 40 mg PO DAILY 30 Days Qty: 30 1RF Nitrostat 0.4 mg Tablet, Sublingual 0.4 mg SUBLINGUAL Q5M PRN (Reason: Chest Pain) 30 Days Qty: 60 1RF Rx Instructions: do not exceed 3 doses per episode ranolazine 500 mg tablet extended release 12 hr 500 mg PO BID 30 Days Qty: 60 1RF Discharge Orders: Discharge ED (Routine); Ordered 11/10/21 Ordered By: Jb Jaime Referrals: Cecily Miller MD [Primary Care Provider] - Discharge Diet: Usual diet Discharge Activity: Increase activity as tolerated Patient Instructions: Back Pain (ED) Activity Restrictions/Additional Instructions: Follow-up with your primary care provider. Establish with a primary care provider if you do not currently have one. Return to the emergency department for anything that you are concerned about and feel needs emergency department evaluation Coding Level of Care Code ED Provider Relations Representative for Chg Fwd Exam Comprehensive Documented by User: Jb Jaime MD 11/10/21 06:18 HPI - Back Pain/Injury General: Chief Complaint: Back Pain/Injury Stated Complaint: low back pain Time Seen by Provider: 11/10/21 05:10 [facility] ED PFSH: Medical History Atherosclerotic heart disease of [place] coronary artery with unstable angina pectoris Benign essential HTN CAD (coronary artery disease) 9stents Chest pain CVA (cerebrovascular accident) Diabetes Dyslipidemia (high LDL; low HDL) Former smoker HTN (hypertension) Surgical History History of appendectomy Family History Other No pertinent family history Social History Smoking and tobacco status: former smoker Alcohol intake: never Housing: House Course Vital Signs: Vital signs: Vital Signs Temperature 98.1 F 11/10/21 06:22 Pulse Rate 81 11/10/21 06:22 Respiratory Rate 18 11/10/21 06:22 Blood Pressure 114/69 11/10/21 06:22 Pulse Oximetry 99 11/10/21 06:22 MDM - Back Pain/Injury Medical Decision Making Patient presents here with low back pain he is well-appearing here feels much improved urine is normal no signs of kidney infection or kidney stone he is stable for discharge return if worsening he has no signs of epidural abscess or cord compression Labs Laboratory Results Urine Color Yellow (Yellow) 11/10/21 05:57 Urine Appearance Clear (CLEAR) 11/10/21 05:57 Urine pH 6 (5-7) 11/10/21 05:57 Ur Specific [place] 1.020 (1.005-1.030) 11/10/21 05:57 Urine Protein Neg (Negative) 11/10/21 05:57 Urine Glucose (UA) Norm (Normal) 11/10/21 05:57 Urine Ketones Negative (Negative) 11/10/21 05:57 Urine Blood Neg (Negative) 11/10/21 05:57 Urine Nitrate Negative (Negative) 11/10/21 05:57 Urine Bilirubin Neg (Negative) 11/10/21 05:57 Urine Urobilinogen 1 mg/dL (Negative) H 11/10/21 05:57 Ur Leukocyte Esterase Negative (Negative) 11/10/21 05:57 Discharge Plan Discharge Patient Disposition: Home Clinical Impression: Back pain Condition: Stable Prescriptions: New methocarbamol 750 mg tablet 750 mg PO Q6H PRN (Reason: spasms) Qty: 20 0RF No Action clopidogrel 75 mg tablet 75 mg PO QAM Qty: 30 1RF ucdlupbpfs-qnofvczxfspbh-fxka 50-325-40 mg tablet 2 tab PO BID PRN (Reason: Migraine Headache) 0RF Hold Instructions: interaction with aspirin insulin aspart U-100 [Novolog Flexpen U-100 Insulin] 100 unit/mL (3 mL) insulin pen See Rx Instructions .ROUTE .COMPLEX Qty: 15 0RF Hold Instructions: See PCP Rx Instructions: Inject, 3 times daily, after meals, based on sliding scale provided Lantus Solostar U-100 Insulin 100 unit/mL (3 mL) Insulin Pen 5 unit SUBCUT DAILY Qty: 15 0RF Hold Instructions: See PCP Lantus Solostar U-100 Insulin 100 unit/mL (3 mL) insulin pen 5 unit SUBCUT DAILY Qty: 15 0RF Hold Instructions: See PCP insulin aspart U-100 [Novolog Flexpen U-100 Insulin] 100 unit/mL (3 mL) insulin pen 1 unit SUBCUT TID Qty: 3 0RF Hold Instructions: See PCP Rx Instructions: Inject 3 times daily after meals based on sliding scale. isosorbide mononitrate 60 mg tablet extended release 24 hr 60 mg PO BID Qty: 60 0RF Hold Instructions: see pcp ondansetron 4 mg tablet,disintegrating 4 mg PO Q6H PRN (Reason: nausea and vomiting) Qty: 14 0RF ProAir HFA 90 mcg/actuation HFA aerosol inhaler 2 puff INHALATION Q4H PRN (Reason: Shortness Of Breath) 1 Days Qty: 30 0RF hydroxyzine HCl 25 mg tablet 25 mg PO Q8H PRN (Reason: nausea and vomiting) Qty: 10 0RF carvedilol 3.125 mg Tablet 3.125 mg PO Q12H 30 Days Qty: 60 1RF escitalopram oxalate 10 mg Tablet 10 mg PO DAILY 30 Days Qty: 30 1RF aripiprazole 10 mg Tablet 5 mg PO DAILY 30 Days Qty: 30 1RF atorvastatin 40 mg tablet 40 mg PO BEDTIME 30 Days Qty: 30 1RF ondansetron HCl 4 mg tablet 4 mg PO Q8H PRN (Reason: Nausea And Vomiting) 30 Days Qty: 60 1RF aspirin 81 mg Tablet,Delayed Release (Dr/Ec) 81 mg PO QAM 30 Days Qty: 30 1RF Protonix 40 mg tablet,delayed release (DR/EC) 40 mg PO DAILY 30 Days Qty: 30 1RF Nitrostat 0.4 mg Tablet, Sublingual 0.4 mg SUBLINGUAL Q5M PRN (Reason: Chest Pain) 30 Days Qty: 60 1RF Rx Instructions: do not exceed 3 doses per episode ranolazine 500 mg tablet extended release 12 hr 500 mg PO BID 30 Days Qty: 60 1RF Discharge Orders: Discharge ED (Routine); Ordered 11/10/21 Ordered By: Jb Jaime Referrals: Cecily Miller MD [Primary Care Provider] - Discharge Diet: Usual diet Discharge Activity: Increase activity as tolerated Patient Instructions: Back Pain (ED) Activity Restrictions/Additional Instructions: Follow-up with your primary care provider. Establish with a primary care provider if you do not currently have one. Return to the emergency department for anything that you are concerned about and feel needs emergency department evaluation Coding Level of Care Code ED Provider Relations Representative for Chg Fwd Exam Comprehensive
[2021-11-10] MEDS: acetaminophen 500 mg Tablet 1000 MG PO (05:43)
[2021-11-10] MEDS: orphenadrine 30 mg/mL Inj 2 mL 60 MG IM (05:45)
[2021-11-10 06:08] LABS: Add Urine Microscopic? NO; Charge for UA Resulting for Rev
[2021-11-10 06:12] LABS: Bilirubin Urine Neg (Negative); Blood Urine Neg (Negative); Glucose Urine UA Norm (Normal); Ketones Urine Negative (Negative); Leukocyte Esterase Urine Negative (Negative); Nitrate Urine Negative (Negative); Protein Urine Neg (Negative); Urine Appearance Clear (CLEAR); Urine Color Yellow (Yellow); Urobilinogen Urine 1 mg/dL (Negative); pH Urine 6 (5-7)
[2021-11-10 06:22] VITALS: BP 114/69; PULSE 81; RESP 18; TEMP 36.7; O2SAT 99
== END 2021-11-10 06:23 | disposition home or self-care (01) ==
PROVIDERS: Emergency Medicine; Emergency Provider Emergency Medicine; PCP Internal Medicine
DX: M54.50 Low back pain, unspecified (principal); I25.10 Atherosclerotic heart disease of native coronary artery without angina pectoris; I10 Essential (primary) hypertension; E11.9 Type 2 diabetes mellitus without complications; E78.5 Hyperlipidemia, unspecified; Z86.73 Personal history of transient ischemic attack (TIA), and cerebral infarction without residual deficits
CPT/HCPCS: 81003; 96372; 99283; J2360

== ENCOUNTER 2021-12-29 22:53 | Emergency (ER) | payer OTHER, MEDICAID, SELFPAY ==
--- NOTE | 2021-12-29 22:54 | XRR_ITS ---
PROCEDURE INFORMATION: Exam: XR Chest Exam date and time: 12/29/2021 11:01 PM Age: 46 years old Clinical indication: Chest wall pain; Additional info: Chest pressure TECHNIQUE: Imaging protocol: Radiologic exam of the chest. Views: 1 view. COMPARISON: CR XR chest 1V portable [id number] 11/05/2021 7:58 PM FINDINGS: Lungs: Minimal bibasilar opacities, likely atelectasis. Pleural spaces: No pneumothorax. No pleural effusion. Heart/Mediastinum: The cardiomediastinal silhouette appears grossly normal. Bones/joints: Unremarkable. XR/XR chest 1V portable [id number] IMPRESSION: No acute radiographic findings in the chest.
--- NOTE | 2021-12-29 22:54 | ECG_ITS ---
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 Measurements Intervals [place] Rate: 78 P: 63 [place]: 145 QRS: 73 QRSD: 86 T: 71 QT: 329 QTc: 375 Interpretive Statements SINUS RHYTHM WITH SINUS ARRHYTHMIA MODERATE VOLTAGE CRITERIA FOR LVH, CONSIDER NORMAL VARIANT [MEETS CRITERIA IN ONE OF: R(aVL), S(V1), R(V5), R(V5/V6)+S(V1)] Compared to ECG 11/05/2021 18:46:32 No significant changes Electronically Signed On 12-30-2021 17:31:01 CDT by Heath Pacheco M.D. [id number] f
[2021-12-29 22:59] VITALS: BP 150/81; PULSE 79; RESP 19; TEMP 37.4; O2SAT 97; BMI 22.7
--- NOTE | 2021-12-29 23:15 | W.ED.CHESTPA ---
HPI - Chest Pain General: Chief Complaint: Chest Pain Stated Complaint: CP Time Seen by Provider: 12/29/21 22:54 Source: patient and EMS Mode of arrival: EMS Limitations: no limitations History of Present Illness: 46-year-old male who is very well-known to the ER who states that he has been having chest pain over the last 2 hours. States that pain is been sharp in nature patient was given morphine in route with improvement. States pain is currently improved and is a 2 out of 10 denies any shortness of breath denies any fever denies any vomiting or diarrhea. Associated symptoms: Deny abdominal pain, dyspnea, fever(s), nausea or vomiting Review of Systems Const: Denies: fever(s), chills, body aches or change in appetite Eyes: Denies: blurry vision or eye discomfort ENMT: Denies: throat pain or dental pain Card: Reports: chest pain Resp: Denies: dyspnea GI: Denies: abdominal pain, nausea, vomiting or diarrhea : Denies: dysuria Musc: Denies: neck pain or back pain Skin/Breast: Denies: rash Neuro: Denies: headache(s) Psych: Denies: depression Melquiades/Lymph: Denies: easy bruising All/Imm: Denies: urticaria PFSH ED PFSH: Medical History Atherosclerotic heart disease of [place] coronary artery with unstable angina pectoris Benign essential HTN CAD (coronary artery disease) 9stents Chest pain CVA (cerebrovascular accident) Diabetes Dyslipidemia (high LDL; low HDL) Former smoker HTN (hypertension) Surgical History History of appendectomy Family History Other No pertinent family history Social History Smoking and tobacco status: former smoker Alcohol intake: never Housing: House Physical Exam Const: COMMON NORMALS: no acute distress, patient oriented x3 and healthy appearing HENMT: COMMON NORMALS: normocephalic and atraumatic HEAD & SCALP: normocephalic and atraumatic Eye: COMMON NORMALS: Equal, round and reactive pupils present and EOMs intact bilaterally PUPIL: Yes Equal, round and reactive pupils present Neck/C-Spine: COMMON NORMALS: full ROM and supple Chest: COMMONS NORMALS: normal inspection of the chest and normal palpation of entire chest wall Resp: COMMON NORMALS: normal respiratory effort, No retractions, No use of accessory muscles and clear to auscultation bilaterally AUSCULTATION: clear to auscultation bilaterally Cardio: COMMON NORMALS: regular rate, regular rhythm and No murmurs present (Cardio) RATE: regular rate RHYTHM: regular rhythm GI: COMMON NORMALS: Normal to inspection, nondistended, normoactive bowel sounds present, Soft to palpation, non-tender and no masses PALPATION: Yes Soft to palpation Extremity: COMMON NORMALS: normal to inspection and full ROM Neuro: COMMON NORMALS: patient oriented x3, moves all extremities and no focal motor deficits Psych: COMMON NORMALS: mental status grossly normal, Normal thought process present and cooperative THOUGHT PROCESS: Normal thought process present Skin: COMMON NORMALS: no rashes or lesions noted and no wounds GENERAL SKIN EXAM: no rashes or lesions noted Course Vital Signs: Vital signs: Vital Signs Temperature 99.4 F 12/29/21 22:59 Pulse Rate 78 12/30/21 01:32 Respiratory Rate 16 12/30/21 01:32 Blood Pressure 136/105 12/30/21 01:32 Pulse Oximetry 97 12/30/21 01:32 MDM - Chest Pain Medical Decision Making Patient presents here with chest pain he has had a negative cardiac cath this year patient troponins here are normal he is well-appearing here he stable for discharge she is to follow-up with PCP and return if worsening. Lab Data : 12/29/21 23:09 12/29/21 23:09 Laboratory Results WBC 10.7 10^3/uL (4.0-10.0) H 12/29/21 23:09 RBC 4.74 10^6/uL (4.1-5.3) 12/29/21 23:09 Hgb 10.8 g/dL (11.7-16.6) L 12/29/21 23:09 Hct 33.5 % (42.0-52.0) L 12/29/21 23:09 MCV 70.7 fl (80-94) L 12/29/21 23:09 MCH 22.8 pg (28.0-34.0) L 12/29/21 23:09 MCHC 32.2 g/dL (30.0-36.0) 12/29/21 23:09 RDW 18.8 % (12.1-15.1) H 12/29/21 23:09 Plt Count 227 10^3/cmm (130-400) 12/29/21 23:09 MPV 12.1 fL (7.4-10.4) H 12/29/21 23:09 Neut % (Auto) 61.2 % 12/29/21 23:09 Lymph % (Auto) 19.9 % 12/29/21 23:09 [place] % (Auto) 16.4 % 12/29/21 23:09 Eos % (Auto) 1.7 % 12/29/21 23:09 Baso % (Auto) 0.5 % 12/29/21 23:09 Neut # (Auto) 6.53 10^3/uL (1.8-7.7) 12/29/21 23:09 Lymph # (Auto) 2.1 10^3/uL (0.8-4.8) 12/29/21 23:09 [place] # (Auto) 1.8 10^3/uL (0.2-0.9) H 12/29/21 23:09 Eos # (Auto) 0.2 10^3/uL (0.0-0.8) 12/29/21 23:09 Baso # (Auto) 0.1 10^3/uL (0.0-0.1) 12/29/21 23:09 Nucleated RBC % (auto) 0 % 12/29/21 23:09 Nucleated RBCs # 0.0 /100WBC 12/29/21 23:09 Hypochromasia 1+ H 12/29/21 23:09 Poikilocytosis 1+ H 12/29/21 23:09 Anisocytosis 1+ H 12/29/21 23:09 Target Cells Trace 12/29/21 23:09 Tear Drop Cells Trace 12/29/21 23:09 Ovalocytes 1+ H 12/29/21 23:09 Sodium 140 mmol/L (136-145) 12/29/21 23:09 Potassium 4.0 mmol/L (3.5-5.1) 12/29/21 23:09 Chloride 105 mmol/L (98-107) 12/29/21 23:09 Carbon Dioxide 24 mmol/L (22-29) 12/29/21 23:09 Anion Gap 15.0 (5-19) 12/29/21 23:09 BUN 31 mg/dL (6-20) H 12/29/21 23:09 Creatinine 1.2 mg/dL (0.7-1.2) 12/29/21 23:09 GFR Calculation 65.8 mL/min (90-130) L 12/29/21 23:09 Glucose 106 mg/dL (65-115) 12/29/21 23:09 Calculated Osmolality 297 mOsm/kg (285-295) H 12/29/21 23:09 Calcium 9.3 mg/dL (8.5-10.5) 12/29/21 23:09 Total Bilirubin 0.2 mg/dL (0.15-1.2) 12/29/21 23:09 AST 10 U/L (0-40) 12/29/21 23:09 ALT 9 U/L (0-41) 12/29/21 23:09 Alkaline Phosphatase 68 IU/L (40-130) 12/29/21 23:09 Troponin T Baseline 31 ng/L (0-15) H 12/29/21 23:09 Troponin T 120 Minute 34.82 ng/L (0-15) H 12/30/21 00:50 Delta Troponin T 3.82 ABS# (0-10) 12/30/21 00:50 Total Protein 7.7 g/dL (6.6-8.7) 12/29/21 23:09 Albumin 4.5 g/dL (3.5-5.2) 12/29/21 23:09 Globulin 3.2 g/dL (1.3-4.6) 12/29/21 23:09 EKG Data EKG 1: I personally reviewed and interpreted this EKG as follows: EKG interpretation date: 12/29/21 EKG interpretation time: 22:59 Interpretation: nsr hr [address] or t wave abnormalities qrs 86 qtc 362 Discharge Plan Discharge Patient Disposition: Home Clinical Impression: Chest pain Condition: Stable Prescriptions: No Action clopidogrel 75 mg tablet 75 mg PO QAM Qty: 30 1RF mwvlahmvea-tsvoygrpcltlx-gdkh 50-325-40 mg tablet 2 tab PO BID PRN (Reason: Migraine Headache) 0RF Hold Instructions: interaction with aspirin insulin aspart U-100 [Novolog Flexpen U-100 Insulin] 100 unit/mL (3 mL) insulin pen See Rx Instructions .ROUTE .COMPLEX Qty: 15 0RF Hold Instructions: See PCP Rx Instructions: Inject, 3 times daily, after meals, based on sliding scale provided Lantus Solostar U-100 Insulin 100 unit/mL (3 mL) Insulin Pen 5 unit SUBCUT DAILY Qty: 15 0RF Hold Instructions: See PCP Lantus Solostar U-100 Insulin 100 unit/mL (3 mL) insulin pen 5 unit SUBCUT DAILY Qty: 15 0RF Hold Instructions: See PCP insulin aspart U-100 [Novolog Flexpen U-100 Insulin] 100 unit/mL (3 mL) insulin pen 1 unit SUBCUT TID Qty: 3 0RF Hold Instructions: See PCP Rx Instructions: Inject 3 times daily after meals based on sliding scale. isosorbide mononitrate 60 mg tablet extended release 24 hr 60 mg PO BID Qty: 60 0RF Hold Instructions: see pcp ondansetron 4 mg tablet,disintegrating 4 mg PO Q6H PRN (Reason: nausea and vomiting) Qty: 14 0RF ProAir HFA 90 mcg/actuation HFA aerosol inhaler 2 puff INHALATION Q4H PRN (Reason: Shortness Of Breath) 1 Days Qty: 30 0RF hydroxyzine HCl 25 mg tablet 25 mg PO Q8H PRN (Reason: nausea and vomiting) Qty: 10 0RF carvedilol 3.125 mg Tablet 3.125 mg PO Q12H 30 Days Qty: 60 1RF escitalopram oxalate 10 mg Tablet 10 mg PO DAILY 30 Days Qty: 30 1RF aripiprazole 10 mg Tablet 5 mg PO DAILY 30 Days Qty: 30 1RF atorvastatin 40 mg tablet 40 mg PO BEDTIME 30 Days Qty: 30 1RF ondansetron HCl 4 mg tablet 4 mg PO Q8H PRN (Reason: Nausea And Vomiting) 30 Days Qty: 60 1RF aspirin 81 mg Tablet,Delayed Release (Dr/Ec) 81 mg PO QAM 30 Days Qty: 30 1RF Protonix 40 mg tablet,delayed release (DR/EC) 40 mg PO DAILY 30 Days Qty: 30 1RF Nitrostat 0.4 mg Tablet, Sublingual 0.4 mg SUBLINGUAL Q5M PRN (Reason: Chest Pain) 30 Days Qty: 60 1RF Rx Instructions: do not exceed 3 doses per episode ranolazine 500 mg tablet extended release 12 hr 500 mg PO BID 30 Days Qty: 60 1RF methocarbamol 750 mg tablet 750 mg PO Q6H PRN (Reason: spasms) Qty: 20 0RF Discharge Orders: Discharge ED (Routine); Ordered 12/30/21 Ordered By: Jb Jaime Referrals: Cecily Miller MD [Primary Care Provider] - Discharge Diet: Advance as tolerated Discharge Activity: Resume usual activity Patient Instructions: Chest Pain (ED) Coding Level of Care Code ED Automation Controls Specialist for Marcelino Fwd Exam Comprehensive
[2021-12-29 23:18] LABS: Basophils # 0.1 10^3/uL (0.0-0.1); Basophils % 0.5 %; Eosinophils # 0.2 10^3/uL (0.0-0.8); Eosinophils % 1.7 %; Hematocrit 33.5 % (42.0-52.0); Hemoglobin 10.8 g/dL (11.7-16.6); Lymphocytes # 2.1 10^3/uL (0.8-4.8); Lymphocytes % 19.9 %; Mean Corpuscular HGB Conc 32.2 g/dL (30.0-36.0); Mean Corpuscular Hemoglobin 22.8 pg (28.0-34.0); Mean Corpuscular Volume 70.7 fl (80-94); Monocytes # 1.8 10^3/uL (0.2-0.9); Monocytes % 16.4 %; Neutrophils # 6.53 10^3/uL (1.8-7.7); Neutrophils % 61.2 %; Nucleated Red Blood Cells % 0 %; Platelet Count 227 10^3/cmm (130-400); Red Blood Count 4.74 10^6/uL (4.1-5.3); Red Cell Distribution Width 18.8 % (12.1-15.1); White Blood Count 10.7 10^3/uL (4.0-10.0)
[2021-12-29 23:34] LABS: Add RBC Morph Yes; Alanine Aminotransferase 9 U/L (0-41); Albumin Level 4.5 g/dL (3.5-5.2); Alkaline Phosphatase 68 IU/L (40-130); Anisocytosis 1+; Aspartate Amino Transferase 10 U/L (0-40); Blood Urea Nitrogen 31 mg/dL (6-20); Calcium 9.3 mg/dL (8.5-10.5); Carbon Dioxide 24 mmol/L (22-29); Chloride 105 mmol/L (98-107); Globulin 3.2 g/dL (1.3-4.6); Glomerular Filtration Rate 65.8 mL/min (90-130); Glucose 106 mg/dL (65-115); Hypochromasia 1+; Mean Platelet Volume 12.1 fL (7.4-10.4); Osmolality Calculated 297 mOsm/kg (285-295); Ovalocytes 1+; Poikilocytosis 1+; RBC Morph Comp No; Slide Review Slide Review Perform; Sodium 140 mmol/L (136-145); Target Cells Trace; Tear Drop Cells Trace; Total Bilirubin 0.2 mg/dL (0.15-1.2); Total Protein 7.7 g/dL (6.6-8.7)
[2021-12-29 23:35] LABS: Troponin(5th) Baseline 31 ng/L (0-15)
[2021-12-29] MEDS: ondansetron 2 mg/ML SDV 2 mL 4 MG IVP (23:45)
[2021-12-30] MEDS: acetaminophen 325 mg Tablet 650 MG PO (00:50)
--- NOTE | 2021-12-30 00:54 | ECG_ITS ---
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 Measurements Intervals [place] Rate: 91 P: 69 [place]: 152 QRS: 69 QRSD: 85 T: 62 QT: 314 QTc: 386 Interpretive Statements SINUS RHYTHM MODERATE VOLTAGE CRITERIA FOR LVH, CONSIDER NORMAL VARIANT [MEETS CRITERIA IN ONE OF: R(aVL), S(V1), R(V5), R(V5/V6)+S(V1)] Compared to ECG 12/29/2021 22:59:40 Sinus arrhythmia no longer present Electronically Signed On 12-30-2021 17:35:07 CDT by Heath Pacheco M.D. [email or web address] memorial [email or web address] [email or web address]/store/[id number]
[2021-12-30 01:13] LABS: Troponin 5 2HR 34.82 ng/L (0-15)
[2021-12-30 01:19] LABS: Troponin 5 2HR Delta 3.82 ABS# (0-10)
[2021-12-30 01:32] VITALS: BP 136/105; PULSE 78; RESP 16; O2SAT 97
== END 2021-12-30 01:32 | disposition home or self-care (01) ==
PROVIDERS: Emergency Provider Emergency Medicine; PCP Internal Medicine
DX: R07.9 Chest pain, unspecified (principal); Z79.02 Long term (current) use of antithrombotics/antiplatelets; Z79.4 Long term (current) use of insulin; Z79.82 Long term (current) use of aspirin; I25.10 Atherosclerotic heart disease of native coronary artery without angina pectoris; Z86.73 Personal history of transient ischemic attack (TIA), and cerebral infarction without residual deficits; E11.9 Type 2 diabetes mellitus without complications; E78.5 Hyperlipidemia, unspecified; I10 Essential (primary) hypertension; Z87.891 Personal history of nicotine dependence
CPT/HCPCS: 71045; 80053; 84484; 85025; 93005; 96374; 99285; J2405

== ENCOUNTER 2021-12-30 04:15 | Emergency (ER) | payer OTHER, SELFPAY ==
[2021-12-30 04:21] VITALS: BP 161/98; PULSE 102; RESP 17; O2SAT 97; BMI 22.7
--- NOTE | 2021-12-30 04:25 | ED_ITS ---
HPI - Chest Pain General: Chief Complaint: Chest Pain Stated Complaint: chest pressure Time Seen by Provider: 12/30/21 04:20 Source: patient Mode of arrival: ambulatory Limitations: no limitations History of Present Illness: 46-year-old male who is very well-known to the ER who has a history of chronic chest pains he was seen here earlier tonight for chest pain had negative troponins he states he is continue to have pain in his chest denies any worsening improving factors denies any shortness of breath states his pain is currently 7 out of 10. Associated symptoms: Deny abdominal pain, dyspnea, fever(s), nausea or vomiting Review of Systems Const: Denies: fever(s), chills, body aches or change in appetite Eyes: Denies: blurry vision or eye discomfort ENMT: Denies: throat pain or dental pain Card: Reports: chest pain Resp: Denies: dyspnea GI: Denies: abdominal pain, nausea, vomiting or diarrhea : Denies: dysuria Musc: Denies: neck pain or back pain Skin/Breast: Denies: rash Neuro: Denies: headache(s) Psych: Denies: depression Melquiades/Lymph: Denies: easy bruising All/Imm: Denies: urticaria PFSH ED PFSH: Medical History Atherosclerotic heart disease of [place] coronary artery with unstable angina pectoris Benign essential HTN CAD (coronary artery disease) 9stents Chest pain CVA (cerebrovascular accident) Diabetes Dyslipidemia (high LDL; low HDL) Former smoker HTN (hypertension) Surgical History History of appendectomy Family History Other No pertinent family history Social History Smoking and tobacco status: former smoker Alcohol intake: never Housing: House Physical Exam Const: COMMON NORMALS: no acute distress, patient oriented x3 and healthy appearing HENMT: COMMON NORMALS: normocephalic and atraumatic HEAD & SCALP: normocephalic and atraumatic Eye: COMMON NORMALS: Equal, round and reactive pupils present and EOMs intact bilaterally PUPIL: Yes Equal, round and reactive pupils present Neck/C-Spine: COMMON NORMALS: full ROM and supple Chest: COMMONS NORMALS: normal inspection of the chest and normal palpation of entire chest wall Resp: COMMON NORMALS: normal respiratory effort, No retractions, No use of accessory muscles and clear to auscultation bilaterally AUSCULTATION: clear to auscultation bilaterally Cardio: COMMON NORMALS: regular rate, regular rhythm and No murmurs present (Cardio) RATE: regular rate RHYTHM: regular rhythm GI: COMMON NORMALS: Normal to inspection, nondistended, normoactive bowel sounds present, Soft to palpation, non-tender and no masses PALPATION: Yes Soft to palpation Extremity: COMMON NORMALS: normal to inspection and full ROM Neuro: COMMON NORMALS: patient oriented x3, moves all extremities and no focal motor deficits Psych: COMMON NORMALS: mental status grossly normal, Normal thought process present and cooperative THOUGHT PROCESS: Normal thought process present Skin: COMMON NORMALS: no rashes or lesions noted and no wounds GENERAL SKIN EXAM: no rashes or lesions noted Course Vital Signs: Vital signs: Vital Signs Pulse Rate 88 12/30/21 04:54 Respiratory Rate 16 12/30/21 04:54 Blood Pressure 135/75 12/30/21 04:54 Pulse Oximetry 98 12/30/21 04:54 MDM - Chest Pain Medical Decision Making Patient presents for chest pains atypical in nature. Patient's troponin had a change of 8 from his previous his EKG is normal he had had a normal cath this year he has no signs of acute coronary syndrome he is stable for discharge is to follow-up PCP and return if worsening. Lab Data : 12/30/21 04:30 12/30/21 04:30 Laboratory Results WBC 8.7 10^3/uL (4.0-10.0) 12/30/21 04:30 RBC 4.80 10^6/uL (4.1-5.3) 12/30/21 04:30 Hgb 11.0 g/dL (11.7-16.6) L 12/30/21 04:30 Hct 33.8 % (42.0-52.0) L 12/30/21 04:30 MCV 70.4 fl (80-94) L 12/30/21 04:30 MCH 22.9 pg (28.0-34.0) L 12/30/21 04:30 MCHC 32.5 g/dL (30.0-36.0) 12/30/21 04:30 RDW 18.6 % (12.1-15.1) H 12/30/21 04:30 Plt Count 229 10^3/cmm (130-400) 12/30/21 04:30 MPV 11.9 fL (7.4-10.4) H 12/30/21 04:30 Neut % (Auto) 54.7 % 12/30/21 04:30 Lymph % (Auto) 24.2 % 12/30/21 04:30 [facility] % (Auto) 18.1 % 12/30/21 04:30 Eos % (Auto) 2.1 % 12/30/21 04:30 Baso % (Auto) 0.7 % 12/30/21 04:30 Neut # (Auto) 4.76 10^3/uL (1.8-7.7) 12/30/21 04:30 Lymph # (Auto) 2.1 10^3/uL (0.8-4.8) 12/30/21 04:30 [facility] # (Auto) 1.6 10^3/uL (0.2-0.9) H 12/30/21 04:30 Eos # (Auto) 0.2 10^3/uL (0.0-0.8) 12/30/21 04:30 Baso # (Auto) 0.1 10^3/uL (0.0-0.1) 12/30/21 04:30 Nucleated RBC % (auto) 0 % 12/30/21 04:30 Nucleated RBCs # 0.0 /100WBC 12/30/21 04:30 Sodium 140 mmol/L (136-145) 12/30/21 04:30 Potassium 4.0 mmol/L (3.5-5.1) 12/30/21 04:30 Chloride 103 mmol/L (98-107) 12/30/21 04:30 Carbon Dioxide 23 mmol/L (22-29) 12/30/21 04:30 Anion Gap 18.0 (5-19) 12/30/21 04:30 BUN 32 mg/dL (6-20) H 12/30/21 04:30 Creatinine 1.1 mg/dL (0.7-1.2) 12/30/21 04:30 GFR Calculation 72.7 mL/min (90-130) L 12/30/21 04:30 Glucose 95 mg/dL (65-115) 12/30/21 04:30 Calculated Osmolality 297 mOsm/kg (285-295) H 12/30/21 04:30 Calcium 9.3 mg/dL (8.5-10.5) 12/30/21 04:30 Total Bilirubin 0.4 mg/dL (0.15-1.2) 12/30/21 04:30 AST 12 U/L (0-40) 12/30/21 04:30 ALT 9 U/L (0-41) 12/30/21 04:30 Alkaline Phosphatase 71 IU/L (40-130) 12/30/21 04:30 Troponin T Baseline 42 ng/L (0-15) H 12/30/21 04:30 Total Protein 7.7 g/dL (6.6-8.7) 12/30/21 04:30 Albumin 4.9 g/dL (3.5-5.2) 12/30/21 04:30 Globulin 2.8 g/dL (1.3-4.6) 12/30/21 04:30 EKG Data EKG 1: I personally reviewed and interpreted this EKG as follows: EKG interpretation date: 12/30/21 EKG interpretation time: 04:23 Interpretation: nsr hr [address] or t wave abnormalities qrs 85 qtc 362 Discharge Plan Discharge Patient Disposition: Home Clinical Impression: Chest pain Qualifiers: Chest pain type: unspecified Qualified Code(s): R07.9 - Chest pain, unspecified Condition: Stable Prescriptions: No Action clopidogrel 75 mg tablet 75 mg PO QAM Qty: 30 1RF nyduqwvjah-vufbqjuvqhmay-uisi 50-325-40 mg tablet 2 tab PO BID PRN (Reason: Migraine Headache) 0RF Hold Instructions: interaction with aspirin insulin aspart U-100 [Novolog Flexpen U-100 Insulin] 100 unit/mL (3 mL) insulin pen See Rx Instructions .ROUTE .COMPLEX Qty: 15 0RF Hold Instructions: See PCP Rx Instructions: Inject, 3 times daily, after meals, based on sliding scale provided Lantus Solostar U-100 Insulin 100 unit/mL (3 mL) Insulin Pen 5 unit SUBCUT DAILY Qty: 15 0RF Hold Instructions: See PCP Lantus Solostar U-100 Insulin 100 unit/mL (3 mL) insulin pen 5 unit SUBCUT DAILY Qty: 15 0RF Hold Instructions: See PCP insulin aspart U-100 [Novolog Flexpen U-100 Insulin] 100 unit/mL (3 mL) insulin pen 1 unit SUBCUT TID Qty: 3 0RF Hold Instructions: See PCP Rx Instructions: Inject 3 times daily after meals based on sliding scale. isosorbide mononitrate 60 mg tablet extended release 24 hr 60 mg PO BID Qty: 60 0RF Hold Instructions: see pcp ondansetron 4 mg tablet,disintegrating 4 mg PO Q6H PRN (Reason: nausea and vomiting) Qty: 14 0RF ProAir HFA 90 mcg/actuation HFA aerosol inhaler 2 puff INHALATION Q4H PRN (Reason: Shortness Of Breath) 1 Days Qty: 30 0RF hydroxyzine HCl 25 mg tablet 25 mg PO Q8H PRN (Reason: nausea and vomiting) Qty: 10 0RF carvedilol 3.125 mg Tablet 3.125 mg PO Q12H 30 Days Qty: 60 1RF escitalopram oxalate 10 mg Tablet 10 mg PO DAILY 30 Days Qty: 30 1RF aripiprazole 10 mg Tablet 5 mg PO DAILY 30 Days Qty: 30 1RF atorvastatin 40 mg tablet 40 mg PO BEDTIME 30 Days Qty: 30 1RF ondansetron HCl 4 mg tablet 4 mg PO Q8H PRN (Reason: Nausea And Vomiting) 30 Days Qty: 60 1RF aspirin 81 mg Tablet,Delayed Release (Dr/Ec) 81 mg PO QAM 30 Days Qty: 30 1RF Protonix 40 mg tablet,delayed release (DR/EC) 40 mg PO DAILY 30 Days Qty: 30 1RF Nitrostat 0.4 mg Tablet, Sublingual 0.4 mg SUBLINGUAL Q5M PRN (Reason: Chest Pain) 30 Days Qty: 60 1RF Rx Instructions: do not exceed 3 doses per episode ranolazine 500 mg tablet extended release 12 hr 500 mg PO BID 30 Days Qty: 60 1RF methocarbamol 750 mg tablet 750 mg PO Q6H PRN (Reason: spasms) Qty: 20 0RF Discharge Orders: Discharge ED (Routine); Ordered 12/30/21 Ordered By: Jb Jaime Referrals: Cecily Miller MD [Primary Care Provider] - Discharge Diet: Advance as tolerated Discharge Activity: Resume usual activity Patient Instructions: Chest Pain (ED) Coding Level of Care Code ED Lead Java Software Engineer for Chg Fwd Exam Comprehensive
[2021-12-30 04:40] LABS: Basophils # 0.1 10^3/uL (0.0-0.1); Basophils % 0.7 %; Eosinophils # 0.2 10^3/uL (0.0-0.8); Eosinophils % 2.1 %; Hematocrit 33.8 % (42.0-52.0); Lymphocytes # 2.1 10^3/uL (0.8-4.8); Lymphocytes % 24.2 %; Mean Corpuscular HGB Conc 32.5 g/dL (30.0-36.0); Mean Corpuscular Hemoglobin 22.9 pg (28.0-34.0); Mean Corpuscular Volume 70.4 fl (80-94); Monocytes # 1.6 10^3/uL (0.2-0.9); Monocytes % 18.1 %; Neutrophils # 4.76 10^3/uL (1.8-7.7); Neutrophils % 54.7 %; Nucleated Red Blood Cells % 0 %; Platelet Count 229 10^3/cmm (130-400); Red Cell Distribution Width 18.6 % (12.1-15.1); White Blood Count 8.7 10^3/uL (4.0-10.0)
[2021-12-30 04:42] LABS: Mean Platelet Volume 11.9 fL (7.4-10.4)
[2021-12-30 04:54] VITALS: BP 135/75; PULSE 88; RESP 16; O2SAT 98
[2021-12-30 04:59] LABS: Alanine Aminotransferase 9 U/L (0-41); Albumin Level 4.9 g/dL (3.5-5.2); Alkaline Phosphatase 71 IU/L (40-130); Aspartate Amino Transferase 12 U/L (0-40); Blood Urea Nitrogen 32 mg/dL (6-20); Calcium 9.3 mg/dL (8.5-10.5); Carbon Dioxide 23 mmol/L (22-29); Chloride 103 mmol/L (98-107); Globulin 2.8 g/dL (1.3-4.6); Glomerular Filtration Rate 72.7 mL/min (90-130); Glucose 95 mg/dL (65-115); Osmolality Calculated 297 mOsm/kg (285-295); Sodium 140 mmol/L (136-145); Total Bilirubin 0.4 mg/dL (0.15-1.2); Total Protein 7.7 g/dL (6.6-8.7)
[2021-12-30 05:00] LABS: Troponin(5th) Baseline 42 ng/L (0-15)
[2021-12-30] MEDS: ketorolac 30 mg/mL INJ 15 MG IVP (05:05)
[2021-12-30] MEDS: LORazepam 2 mg/mL INJ 1 mL 1 MG IVP (05:06)
[2021-12-30 05:23] VITALS: BP 135/75; PULSE 88; RESP 16; O2SAT 98
== END 2021-12-30 05:24 | disposition home or self-care (01) ==
PROVIDERS: Emergency Provider Emergency Medicine; PCP Internal Medicine
DX: R07.9 Chest pain, unspecified (principal); Z79.02 Long term (current) use of antithrombotics/antiplatelets; Z79.82 Long term (current) use of aspirin; Z79.4 Long term (current) use of insulin; I25.10 Atherosclerotic heart disease of native coronary artery without angina pectoris; Z86.73 Personal history of transient ischemic attack (TIA), and cerebral infarction without residual deficits; E11.9 Type 2 diabetes mellitus without complications; E78.5 Hyperlipidemia, unspecified; I10 Essential (primary) hypertension; Z87.891 Personal history of nicotine dependence
CPT/HCPCS: 80053; 84484; 85025; 96374; 96375; 99284; J1885; J2060

== ENCOUNTER 2021-12-30 21:06 | Emergency (ER) | payer OTHER, MEDICAID, SELFPAY ==
--- NOTE | 2021-12-30 21:08 | ECG_ITS ---
[facility] Test Date: 2021-12-30 Pat Name: Alonso June Department: Room: Gender: Male Lofter: : 1975 Requested By: Jb Jaime Order Number: [id number] Janel MD: Anatoliy Jean Baptiste M.D. Measurements Intervals [place] Rate: 85 P: 52 [place]: 150 QRS: 58 QRSD: 86 T: 52 QT: 343 QTc: 409 Interpretive Statements SINUS RHYTHM MODERATE VOLTAGE CRITERIA FOR LVH, CONSIDER NORMAL VARIANT [MEETS CRITERIA IN ONE OF: R(aVL), S(V1), R(V5), R(V5/V6)+S(V1)] Compared to ECG 12/30/2021 04:23:04 No significant changes Electronically Signed On 12-31-2021 23:38:45 CDT by Anatoliy Jean Baptiste M.D. [email or web address] [email or web address] state [id number]
[2021-12-30 21:20] VITALS: BP 165/90; PULSE 90; RESP 18; TEMP 36.7; O2SAT 99; BMI 22.7
--- NOTE | 2021-12-30 21:23 | ED_ITS ---
HPI - Chest Pain General: Chief Complaint: Chest Pain Stated Complaint: cp Time Seen by Provider: 12/30/21 21:09 Source: patient Mode of arrival: ambulatory Limitations: no limitations History of Present Illness: 46-year-old male who is well-known to the ER has a history of chronic chest pain is seen here twice for the same complaint that this year he has had a cardiac cath that was normal. Patient states that today has been having some chest pain and back pain over the last hour he states that sharp in nature he feels like he may have got too hot outside. He denies any worsening. Back states pain is currently a 6 out of 10. Associated symptoms: Deny abdominal pain, dyspnea, fever(s), nausea or vomiting Review of Systems Const: Denies: fever(s), chills, body aches or change in appetite Eyes: Denies: blurry vision or eye discomfort ENMT: Denies: throat pain or dental pain Card: Reports: chest pain Resp: Denies: dyspnea GI: Denies: abdominal pain, nausea, vomiting or diarrhea : Denies: dysuria Musc: Denies: neck pain or back pain Skin/Breast: Denies: rash Neuro: Denies: headache(s) Psych: Denies: depression Melquiades/Lymph: Denies: easy bruising All/Imm: Denies: urticaria PFSH ED PFSH: Medical History Atherosclerotic heart disease of [place] coronary artery with unstable angina pectoris Benign essential HTN CAD (coronary artery disease) 9stents Chest pain CVA (cerebrovascular accident) Diabetes Dyslipidemia (high LDL; low HDL) Former smoker HTN (hypertension) Surgical History History of appendectomy Family History Other No pertinent family history Social History Smoking and tobacco status: former smoker Alcohol intake: never Housing: House Physical Exam Const: COMMON NORMALS: no acute distress, patient oriented x3 and healthy appearing HENMT: COMMON NORMALS: normocephalic and atraumatic HEAD & SCALP: normocephalic and atraumatic Eye: COMMON NORMALS: Equal, round and reactive pupils present and EOMs intact bilaterally PUPIL: Yes Equal, round and reactive pupils present Neck/C-Spine: COMMON NORMALS: full ROM and supple Chest: COMMONS NORMALS: normal inspection of the chest and normal palpation of entire chest wall Resp: COMMON NORMALS: normal respiratory effort, No retractions, No use of accessory muscles and clear to auscultation bilaterally AUSCULTATION: clear to auscultation bilaterally Cardio: COMMON NORMALS: regular rate, regular rhythm and No murmurs present (Cardio) RATE: regular rate RHYTHM: regular rhythm GI: COMMON NORMALS: Normal to inspection, nondistended, normoactive bowel sounds present, Soft to palpation, non-tender and no masses PALPATION: Yes Soft to palpation Extremity: COMMON NORMALS: normal to inspection and full ROM Neuro: COMMON NORMALS: patient oriented x3, moves all extremities and no focal motor deficits Psych: COMMON NORMALS: mental status grossly normal, Normal thought process present and cooperative THOUGHT PROCESS: Normal thought process present Skin: COMMON NORMALS: no rashes or lesions noted and no wounds GENERAL SKIN EXAM: no rashes or lesions noted Course Vital Signs: Vital signs: Vital Signs Temperature 98.1 F 12/30/21 21:20 Pulse Rate 78 12/30/21 22:17 Respiratory Rate 16 12/30/21 22:17 Blood Pressure 165/90 12/30/21 21:20 Pulse Oximetry 98 12/30/21 22:17 MDM - Chest Pain Medical Decision Making Patient presents for chest pains atypical in nature his troponins at his baseline he is well-appearing here he is no signs of dissection or pulm embolism he is stable for discharge is to follow-up PCP and return if worsening. Lab Data : 12/30/21 21:29 12/30/21 21:29 Radiology Impressions Chest X-Ray 12/30/21 21:26 IMPRESSION: No change, unremarkable Laboratory Results WBC 6.4 10^3/uL (4.0-10.0) 12/30/21 21: RBC 4.19 10^6/uL (4.1-5.3) 12/30/21 21:29 Hgb 9.6 g/dL (11.7-16.6) L 12/30/21 21: Hct 29.1 % (42.0-52.0) L 12/30/21 21:29 MCV 69.5 fl (80-94) L 12/30/21 21: MCH 22.9 pg (28.0-34.0) L 12/30/21 21: MCHC 33.0 g/dL (30.0-36.0) 12/30/21 21: RDW 18.5 % (12.1-15.1) H 12/30/21 21: Plt Count 215 10^3/cmm (130-400) 12/30/21 21: MPV 12.2 fL (7.4-10.4) H 12/30/21 21: Neut % (Auto) 49.6 % 12/30/21 21: Lymph % (Auto) 30.1 % 12/30/21: [place] % (Auto) 17.0 % 12/30/21 21: Eos % (Auto) 2.5 % 12/30/21 21: Baso % (Auto) 0.6 % 12/30/21: Neut # (Auto) 3.18 10^3/uL (1.8-7.7) 12/30/21 21: Lymph # (Auto) 1.9 10^3/uL (0.8-4.8) 12/30/21 21: [place] # (Auto) 1.1 10^3/uL (0.2-0.9) H 12/30/21 21: Eos # (Auto) 0.2 10^3/uL (0.0-0.8) 12/30/21 21: Baso # (Auto) 0.0 10^3/uL (0.0-0.1) 12/30/21: Nucleated RBC % (auto) 0 % 12/30/21: Nucleated RBCs # 0.0 /100WBC 12/30/21 21: Sodium 139 mmol/L (136-145) 12/30/21: Potassium 3.5 mmol/L (3.5-5.1) 12/30/21: Chloride 105 mmol/L (98-107) 12/30/21: Carbon Dioxide 22 mmol/L (22-29) 12/30/21 21: Anion Gap 15.5 (5-19) 12/30/21 21:29 BUN 27 mg/dL (6-20) H 12/30/21 21:29 Creatinine 1.0 mg/dL (0.7-1.2) 12/30/21 21:29 GFR Calculation 81.2 mL/min (90-130) L 12/30/21 21:29 Glucose 94 mg/dL (65-115) 12/30/21 21:29 Calculated Osmolality 293 mOsm/kg (285-295) 12/30/21 21:29 Calcium 8.6 mg/dL (8.5-10.5) 12/30/21 21:29 Total Bilirubin 0.2 mg/dL (0.15-1.2) 12/30/21 21:29 AST 11 U/L (0-40) 12/30/21 21: ALT 8 U/L (0-41) 12/30/21 21:29 Alkaline Phosphatase 61 IU/L (40-130) 12/30/21 21:29 Troponin T Baseline 36 ng/L (0-15) H 12/30/21 21:29 Total Protein 7.0 g/dL (6.6-8.7) 12/30/21 21: Albumin 4.3 g/dL (3.5-5.2) 12/30/21 21: Globulin 2.7 g/dL (1.3-4.6) 12/30/21 21:29 EKG Data EKG 1: I personally reviewed and interpreted this EKG as follows: EKG interpretation date: 12/30/21 EKG interpretation time: 21:18 Interpretation: nsr hr [address] or t wave abnormalities qrs 86 qtc 395 Discharge Plan Discharge Patient Disposition: Home Clinical Impression: Chest pain Qualifiers: Chest pain type: unspecified Qualified Code(s): R07.9 - Chest pain, unspecified Condition: Stable Prescriptions: No Action clopidogrel 75 mg tablet 75 mg PO QAM Qty: 30 1RF npidwsurdz-qtdsbyfabgrcn-oikm 50-325-40 mg tablet 2 tab PO BID PRN (Reason: Migraine Headache) 0RF Hold Instructions: interaction with aspirin insulin aspart U-100 [Novolog Flexpen U-100 Insulin] 100 unit/mL (3 mL) insu cassidy pen See Rx Instructions .ROUTE .COMPLEX Qty: 15 0RF Hold Instructions: See PCP Rx Instructions: Inject, 3 times daily, after meals, based on sliding scale provided Lantus Solostar U-100 Insulin 100 unit/mL (3 mL) Insulin Pen 5 unit SUBCUT DAILY Qty: 15 0RF Hold Instructions: See PCP Lantus Solostar U-100 Insulin 100 unit/mL (3 mL) insulin pen 5 unit SUBCUT DAILY Qty: 15 0RF Hold Instructions: See PCP insulin aspart U-100 [Novolog Flexpen U-100 Insulin] 100 unit/mL (3 mL) insulin pen 1 unit SUBCUT TID Qty: 3 0RF Hold Instructions: See PCP Rx Instructions: Inject 3 times daily after meals based on sliding scale. isosorbide mononitrate 60 mg tablet extended release 24 hr 60 mg PO BID Qty: 60 0RF Hold Instructions: see pcp ondansetron 4 mg tablet,disintegrating 4 mg PO Q6H PRN (Reason: nausea and vomiting) Qty: 14 0RF ProAir HFA 90 mcg/actuation HFA aerosol inhaler 2 puff INHALATION Q4H PRN (Reason: Shortness Of Breath) 1 Days Qty: 30 0RF hydroxyzine HCl 25 mg tablet 25 mg PO Q8H PRN (Reason: nausea and vomiting) Qty: 10 0RF carvedilol 3.125 mg Tablet 3.125 mg PO Q12H 30 Days Qty: 60 1RF escitalopram oxalate 10 mg Tablet 10 mg PO DAILY 30 Days Qty: 30 1RF aripiprazole 10 mg Tablet 5 mg PO DAILY 30 Days Qty: 30 1RF atorvastatin 40 mg tablet 40 mg PO BEDTIME 30 Days Qty: 30 1RF ondansetron HCl 4 mg tablet 4 mg PO Q8H PRN (Reason: Nausea And Vomiting) 30 Days Qty: 60 1RF aspirin 81 mg Tablet,Delayed Release (Dr/Ec) 81 mg PO QAM 30 Days Qty: 30 1RF Protonix 40 mg tablet,delayed release (DR/EC) 40 mg PO DAILY 30 Days Qty: 30 1RF Nitrostat 0.4 mg Tablet, Sublingual 0.4 mg SUBLINGUAL Q5M PRN (Reason: Chest Pain) 30 Days Qty: 60 1RF Rx Instructions: do not exceed 3 doses per episode ranolazine 500 mg tablet extended release 12 hr 500 mg PO BID 30 Days Qty: 60 1RF methocarbamol 750 mg tablet 750 mg PO Q6H PRN (Reason: spasms) Qty: 20 0RF Discharge Orders: Discharge ED (Routine); Ordered 12/30/21 Ordered By: Jb Jaime Referrals: Cecily Miller MD [Primary Care Provider] - Discharge Diet: Advance as tolerated Discharge Activity: Resume usual activity Patient Instructions: Chest Pain (ED) Coding Level of Care Code ED Build And Deployment Engineer for Chg Fwd Exam Comprehensive
--- NOTE | 2021-12-30 21:26 | XRR_ITS ---
PROCEDURE INFORMATION: Exam: XR Chest Exam date and time: 12/30/2021 9:38 PM Age: 46 years old Clinical indication: Pain; Angina pectoris; Prior surgery; Surgery type: Stents; Additional info: Cp TECHNIQUE: Imaging protocol: Radiologic exam of the chest. Views: 1 view. COMPARISON: CR (CHEST, ) 12/29/2021 11:01 PM FINDINGS: Lungs: Unremarkable. No consolidation. Pleural spaces: Unremarkable. No pleural effusion. No pneumothorax. Heart/Mediastinum: Unremarkable. No cardiomegaly. Bones/joints: Unremarkable. Other findings: Normal no change, unremarkable XR/XR chest 1V portable [id number] IMPRESSION: No change, unremarkable
[2021-12-30 21:36] LABS: Basophils % 0.6 %; Eosinophils # 0.2 10^3/uL (0.0-0.8); Eosinophils % 2.5 %; Hematocrit 29.1 % (42.0-52.0); Hemoglobin 9.6 g/dL (11.7-16.6); Lymphocytes # 1.9 10^3/uL (0.8-4.8); Lymphocytes % 30.1 %; Mean Corpuscular Hemoglobin 22.9 pg (28.0-34.0); Mean Corpuscular Volume 69.5 fl (80-94); Monocytes # 1.1 10^3/uL (0.2-0.9); Neutrophils # 3.18 10^3/uL (1.8-7.7); Neutrophils % 49.6 %; Nucleated Red Blood Cells % 0 %; Platelet Count 215 10^3/cmm (130-400); Red Blood Count 4.19 10^6/uL (4.1-5.3); Red Cell Distribution Width 18.5 % (12.1-15.1); White Blood Count 6.4 10^3/uL (4.0-10.0)
[2021-12-30] MEDS: sodium chloride 0.9% 1,000 ML 999 ML IV (21:51)
[2021-12-30] MEDS: aspirin 81 mg Chew Tablet 324 MG PO (21:51)
[2021-12-30] MEDS: acetaminophen 500 mg Tablet 1000 MG PO (21:51)
[2021-12-30 21:54] LABS: Troponin(5th) Baseline 36 ng/L (0-15)
[2021-12-30 21:55] LABS: Alanine Aminotransferase 8 U/L (0-41); Albumin Level 4.3 g/dL (3.5-5.2); Alkaline Phosphatase 61 IU/L (40-130); Anion Gap 15.5 (5-19); Aspartate Amino Transferase 11 U/L (0-40); Blood Urea Nitrogen 27 mg/dL (6-20); Calcium 8.6 mg/dL (8.5-10.5); Carbon Dioxide 22 mmol/L (22-29); Chloride 105 mmol/L (98-107); Globulin 2.7 g/dL (1.3-4.6); Glomerular Filtration Rate 81.2 mL/min (90-130); Glucose 94 mg/dL (65-115); Mean Platelet Volume 12.2 fL (7.4-10.4); Osmolality Calculated 293 mOsm/kg (285-295); Potassium 3.5 mmol/L (3.5-5.1); Sodium 139 mmol/L (136-145); Total Bilirubin 0.2 mg/dL (0.15-1.2)
[2021-12-30 22:17] VITALS: PULSE 78; RESP 16; O2SAT 98
[2021-12-30 22:49] VITALS: BP 144/90; PULSE 80; RESP 18; O2SAT 98
== END 2021-12-30 22:49 | disposition home or self-care (01) ==
PROVIDERS: Emergency Provider Emergency Medicine; PCP Internal Medicine
DX: R07.9 Chest pain, unspecified (principal); Z79.02 Long term (current) use of antithrombotics/antiplatelets; Z79.82 Long term (current) use of aspirin; Z79.4 Long term (current) use of insulin; I25.10 Atherosclerotic heart disease of native coronary artery without angina pectoris; Z86.73 Personal history of transient ischemic attack (TIA), and cerebral infarction without residual deficits; E11.9 Type 2 diabetes mellitus without complications; E78.5 Hyperlipidemia, unspecified; I10 Essential (primary) hypertension; Z87.891 Personal history of nicotine dependence
CPT/HCPCS: 71045; 80053; 84484; 85025; 93005; 96360; 99285; J7030

== ENCOUNTER 2021-12-31 01:32 | Emergency (ER) | payer OTHER, MEDICAID, SELFPAY ==
[2021-12-31 01:34] VITALS: BMI 21.9
--- NOTE | 2021-12-31 01:36 | ECG_ITS ---
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 Measurements Intervals [place] Rate: 61 P: 53 MN: 154 QRS: 61 QRSD: 87 T: 59 QT: 399 QTc: 403 Interpretive Statements SINUS RHYTHM MODERATE VOLTAGE CRITERIA FOR LVH, CONSIDER NORMAL VARIANT [MEETS CRITERIA IN ONE OF: R(aVL), S(V1), R(V5), R(V5/V6)+S(V1)] Compared to ECG 12/30/2021 21:18:44 No significant changes Electronically Signed On 12-31-2021 23:39:41 CDT by Anatoliy Jean Baptiste M.D. [id number] f
--- NOTE | 2021-12-31 01:37 | ED_ITS ---
HPI - Weakness General: Chief complaint: Syncope Stated complaint: CP, Weakness Time Seen by Provider: 12/31/21 01:35 Source: patient and EMS Mode of arrival: EMS Limitations: no limitations History of Present Illness: 46-year-old male who is very well-known to the ER he has been seen here 4 times last 2 days for chest pains. He has had multiple negative work-ups he has had a clean cardiac cath this year. Patient was recently discharged tonight he had went states that he passed out in a parking lot and he called EMS. States has been having some chest pains he states he was having some weakness he has no weakness here he is able to ambulate to his room denies hitting his head. No signs of injuries. Associated symptoms: Reports chest pain and syncope; Denies chills, dysuria, easy bruising, fever(s), headache(s), nausea or vomiting Review of Systems Const: Denies: fever(s), chills, body aches or change in appetite Eyes: Denies: blurry vision or eye discomfort ENMT: Denies: throat pain or dental pain Card: Reports: chest pain and syncope Resp: Denies: dyspnea GI: Denies: abdominal pain, nausea, vomiting or diarrhea : Denies: dysuria Musc: Denies: neck pain or back pain Skin/Breast: Denies: rash Neuro: Denies: headache(s) Psych: Denies: depression Melquiades/Lymph: Denies: easy bruising All/Imm: Denies: urticaria PFSH ED PFSH: Medical History Atherosclerotic heart disease of [place] coronary artery with unstable angina pectoris Benign essential HTN CAD (coronary artery disease) 9stents Chest pain CVA (cerebrovascular accident) Diabetes Dyslipidemia (high LDL; low HDL) Former smoker HTN (hypertension) Surgical History History of appendectomy Family History Other No pertinent family history Social History Smoking and tobacco status: former smoker Alcohol intake: never Housing: House Physical Exam Const: COMMON NORMALS: no acute distress, patient oriented x3 and healthy appearing HENMT: COMMON NORMALS: normocephalic and atraumatic HEAD & SCALP: normocephalic and atraumatic Eye: COMMON NORMALS: Equal, round and reactive pupils present and EOMs intact bilaterally PUPIL: Yes Equal, round and reactive pupils present Neck/C-Spine: COMMON NORMALS: full ROM and supple Chest: COMMONS NORMALS: normal inspection of the chest and normal palpation of entire chest wall Resp: COMMON NORMALS: normal respiratory effort, No retractions, No use of accessory muscles and clear to auscultation bilaterally AUSCULTATION: clear to auscultation bilaterally Cardio: COMMON NORMALS: regular rate, regular rhythm and No murmurs present (Cardio) RATE: regular rate RHYTHM: regular rhythm GI: COMMON NORMALS: Normal to inspection, nondistended, normoactive bowel sounds present, Soft to palpation, non-tender and no masses PALPATION: Yes Soft to palpation Extremity: COMMON NORMALS: normal to inspection and full ROM Neuro: COMMON NORMALS: patient oriented x3, moves all extremities and no focal motor deficits Psych: COMMON NORMALS: mental status grossly normal, Normal thought process present and cooperative THOUGHT PROCESS: Normal thought process present Skin: COMMON NORMALS: no rashes or lesions noted and no wounds GENERAL SKIN EXAM: no rashes or lesions noted Course Vital Signs: Vital signs: Vital Signs Temperature 98.1 F 12/31/21 01:40 Pulse Rate 71 12/31/21 03:00 Respiratory Rate 16 12/31/21 03:00 Blood Pressure 120/64 12/31/21 03:00 Pulse Oximetry 98 12/31/21 03:00 MDM - Weakness Medical Decision Making Patient presents here with chest pains atypical in nature he is well-appearing here EKG is normal patient is stable for discharge he is to follow-up PCP return if worsening. EKG Data EKG 1: I personally reviewed and interpreted this EKG as follows: EKG interpretation date: 12/31/21 EKG interpretation time: 01:43 Interpretation: nsr hr [address] or t wave abnormalities qrs 87 qtc 401 Discharge Plan Discharge Patient Disposition: Home Clinical Impression: Malingering, Chest pain, Syncope Condition: Stable Prescriptions: No Action clopidogrel 75 mg tablet 75 mg PO QAM Qty: 30 1RF uehrrrhpjh-xzwoxerdjcjsq-svoo 50-325-40 mg tablet 2 tab PO BID PRN (Reason: Migraine Headache) 0RF Hold Instructions: interaction with aspirin insulin aspart U-100 [Novolog Flexpen U-100 Insulin] 100 unit/mL (3 mL) insulin pen See Rx Instructions .ROUTE .COMPLEX Qty: 15 0RF Hold Instructions: See PCP Rx Instructions: Inject, 3 times daily, after meals, based on sliding scale provided Lantus Solostar U-100 Insulin 100 unit/mL (3 mL) Insulin Pen 5 unit SUBCUT DAILY Qty: 15 0RF Hold Instructions: See PCP Lantus Solostar U-100 Insulin 100 unit/mL (3 mL) insulin pen 5 unit SUBCUT DAILY Qty: 15 0RF Hold Instructions: See PCP insulin aspart U-100 [Novolog Flexpen U-100 Insulin] 100 unit/mL (3 mL) insulin pen 1 unit SUBCUT TID Qty: 3 0RF Hold Instructions: See PCP Rx Instructions: Inject 3 times daily after meals based on sliding scale. isosorbide mononitrate 60 mg tablet extended release 24 hr 60 mg PO BID Qty: 60 0RF Hold Instructions: see pcp ondansetron 4 mg tablet,disintegrating 4 mg PO Q6H PRN (Reason: nausea and vomiting) Qty: 14 0RF ProAir HFA 90 mcg/actuation HFA aerosol inhaler 2 puff INHALATION Q4H PRN (Reason: Shortness Of Breath) 1 Days Qty: 30 0RF hydroxyzine HCl 25 mg tablet 25 mg PO Q8H PRN (Reason: nausea and vomiting) Qty: 10 0RF carvedilol 3.125 mg Tablet 3.125 mg PO Q12H 30 Days Qty: 60 1RF escitalopram oxalate 10 mg Tablet 10 mg PO DAILY 30 Days Qty: 30 1RF aripiprazole 10 mg Tablet 5 mg PO DAILY 30 Days Qty: 30 1RF atorvastatin 40 mg tablet 40 mg PO BEDTIME 30 Days Qty: 30 1RF ondansetron HCl 4 mg tablet 4 mg PO Q8H PRN (Reason: Nausea And Vomiting) 30 Days Qty: 60 1RF aspirin 81 mg Tablet,Delayed Release (Dr/Ec) 81 mg PO QAM 30 Days Qty: 30 1RF Protonix 40 mg tablet,delayed release (DR/EC) 40 mg PO DAILY 30 Days Qty: 30 1RF Nitrostat 0.4 mg Tablet, Sublingual 0.4 mg SUBLINGUAL Q5M PRN (Reason: Chest Pain) 30 Days Qty: 60 1RF Rx Instructions: do not exceed 3 doses per episode ranolazine 500 mg tablet extended release 12 hr 500 mg PO BID 30 Days Qty: 60 1RF methocarbamol 750 mg tablet 750 mg PO Q6H PRN (Reason: spasms) Qty: 20 0RF Discharge Orders: Discharge ED (Routine); Ordered 12/31/21 Ordered By: Jb Jaime Referrals: Cecily Miller MD [Primary Care Provider] - Discharge Diet: Advance as tolerated Discharge Activity: Resume usual activity Patient Instructions: Syncope (ED) Coding Level of Care Code ED Hand Finisher for Rajivg Fwd Exam Comprehensive
[2021-12-31 01:40] VITALS: BP 132/79; PULSE 68; RESP 18; TEMP 36.7; O2SAT 98
[2021-12-31 03:00] VITALS: BP 120/64; PULSE 71; RESP 16; O2SAT 98
== END 2021-12-31 03:01 | disposition home or self-care (01) ==
PROVIDERS: Emergency Provider Emergency Medicine; PCP Internal Medicine
DX: Z76.5 Malingerer [conscious simulation] (principal); R55 Syncope and collapse; R07.9 Chest pain, unspecified; Z79.82 Long term (current) use of aspirin; Z79.4 Long term (current) use of insulin; I25.10 Atherosclerotic heart disease of native coronary artery without angina pectoris; I10 Essential (primary) hypertension; Z86.73 Personal history of transient ischemic attack (TIA), and cerebral infarction without residual deficits; E11.9 Type 2 diabetes mellitus without complications; E78.5 Hyperlipidemia, unspecified; Z87.891 Personal history of nicotine dependence
CPT/HCPCS: 93005; 99283

== ENCOUNTER 2021-12-31 21:10 | Emergency (ER) | payer MEDICAID, SELFPAY ==
[2021-12-31 21:13] VITALS: BP 146/72; PULSE 83; RESP 16; TEMP 36.9; O2SAT 99
--- NOTE | 2021-12-31 21:24 | ED_ITS ---
HPI - Asthma General: Chief Complaint: Asthma Stated Complaint: Ran out of Medicine Time Seen by Provider: 12/31/21 21:18 Source: patient Mode of arrival: ambulatory Limitations: no limitations History of Present Illness: 46-year-old male who has been seen here multiple times over the last 3 days he states he ran out of his albuterol inhaler today and has had some mild shortness of breath and needs it refilled he is in no distress here he is able speak in full sentences denies any cough or fever or pain. Associated symptoms: Deny chest pain or fever(s) Review of Systems Const: Denies: fever(s), chills, body aches or change in appetite Eyes: Denies: blurry vision or eye discomfort ENMT: Denies: throat pain or dental pain Card: Denies: chest pain Resp: Reports: dyspnea GI: Denies: abdominal pain, nausea, vomiting or diarrhea : Denies: dysuria Musc: Denies: neck pain or back pain Skin/Breast: Denies: rash Neuro: Denies: headache(s) Psych: Denies: depression Melquiades/Lymph: Denies: easy bruising All/Imm: Denies: urticaria PFSH ED PFSH: Medical History Atherosclerotic heart disease of [place] coronary artery with unstable angina pectoris Benign essential HTN CAD (coronary artery disease) 9stents Chest pain CVA (cerebrovascular accident) Diabetes Dyslipidemia (high LDL; low HDL) Former smoker HTN (hypertension) Surgical History History of appendectomy Family History Other No pertinent family history Social History Smoking and tobacco status: former smoker Alcohol intake: never Housing: House Physical Exam Const: COMMON NORMALS: no acute distress, patient oriented x3 and healthy appearing HENMT: COMMON NORMALS: normocephalic and atraumatic HEAD & SCALP: normocephalic and atraumatic Eye: COMMON NORMALS: Equal, round and reactive pupils present and EOMs intact bilaterally PUPIL: Yes Equal, round and reactive pupils present Neck/C-Spine: COMMON NORMALS: full ROM and supple Chest: COMMONS NORMALS: normal inspection of the chest and normal palpation of entire chest wall Resp: COMMON NORMALS: normal respiratory effort, No retractions, No use of accessory muscles and clear to auscultation bilaterally AUSCULTATION: clear to auscultation bilaterally Cardio: COMMON NORMALS: regular rate, regular rhythm and No murmurs present (Cardio) RATE: regular rate RHYTHM: regular rhythm GI: COMMON NORMALS: Normal to inspection, nondistended, normoactive bowel sounds present, Soft to palpation, non-tender and no masses PALPATION: Yes Soft to palpation Extremity: COMMON NORMALS: normal to inspection and full ROM Neuro: COMMON NORMALS: patient oriented x3, moves all extremities and no focal motor deficits Psych: COMMON NORMALS: mental status grossly normal, Normal thought process present and cooperative THOUGHT PROCESS: Normal thought process present Skin: COMMON NORMALS: no rashes or lesions noted and no wounds GENERAL SKIN EXAM: no rashes or lesions noted Course Vital Signs: Vital signs: Vital Signs Temperature 98.4 F 12/31/21 21:13 Pulse Rate 83 12/31/21 21:13 Respiratory Rate 16 12/31/21 21:13 Blood Pressure 146/72 12/31/21 21:13 Pulse Oximetry 99 12/31/21 21:13 MDM - Asthma Medical Decision Making Patient presents with medication refill he is ran out of his albuterol had some mild dyspnea he is well-appearing here in no distress no wheezing he is stable for discharge at this time. Discharge Plan Discharge Patient Disposition: Home Clinical Impression: Medication refill Condition: Stable Prescriptions: No Action clopidogrel 75 mg tablet 75 mg PO QAM Qty: 30 1RF adsfrjnxpl-kcvxhlfrbkuzp-szpb 50-325-40 mg tablet 2 tab PO BID PRN (Reason: Migraine Headache) 0RF Hold Instructions: interaction with aspirin insulin aspart U-100 [Novolog Flexpen U-100 Insulin] 100 unit/mL (3 mL) insulin pen See Rx Instructions .ROUTE .COMPLEX Qty: 15 0RF Hold Instructions: See PCP Rx Instructions: Inject, 3 times daily, after meals, based on sliding scale provided Lantus Solostar U-100 Insulin 100 unit/mL (3 mL) Insulin Pen 5 unit SUBCUT DAILY Qty: 15 0RF Hold Instructions: See PCP Lantus Solostar U-100 Insulin 100 unit/mL (3 mL) insulin pen 5 unit SUBCUT DAILY Qty: 15 0RF Hold Instructions: See PCP insulin aspart U-100 [Novolog Flexpen U-100 Insulin] 100 unit/mL (3 mL) insulin pen 1 unit SUBCUT TID Qty: 3 0RF Hold Instructions: See PCP Rx Instructions: Inject 3 times daily after meals based on sliding scale. isosorbide mononitrate 60 mg tablet extended release 24 hr 60 mg PO BID Qty: 60 0RF Hold Instructions: see pcp ondansetron 4 mg tablet,disintegrating 4 mg PO Q6H PRN (Reason: nausea and vomiting) Qty: 14 0RF ProAir HFA 90 mcg/actuation HFA aerosol inhaler 2 puff INHALATION Q4H PRN (Reason: Shortness Of Breath) 1 Days Qty: 30 0RF hydroxyzine HCl 25 mg tablet 25 mg PO Q8H PRN (Reason: nausea and vomiting) Qty: 10 0RF carvedilol 3.125 mg Tablet 3.125 mg PO Q12H 30 Days Qty: 60 1RF escitalopram oxalate 10 mg Tablet 10 mg PO DAILY 30 Days Qty: 30 1RF aripiprazole 10 mg Tablet 5 mg PO DAILY 30 Days Qty: 30 1RF atorvastatin 40 mg tablet 40 mg PO BEDTIME 30 Days Qty: 30 1RF ondansetron HCl 4 mg tablet 4 mg PO Q8H PRN (Reason: Nausea And Vomiting) 30 Days Qty: 60 1RF aspirin 81 mg Tablet,Delayed Release (Dr/Ec) 81 mg PO QAM 30 Days Qty: 30 1RF Protonix 40 mg tablet,delayed release (DR/EC) 40 mg PO DAILY 30 Days Qty: 30 1RF Nitrostat 0.4 mg Tablet, Sublingual 0.4 mg SUBLINGUAL Q5M PRN (Reason: Chest Pain) 30 Days Qty: 60 1RF Rx Instructions: do not exceed 3 doses per episode ranolazine 500 mg tablet extended release 12 hr 500 mg PO BID 30 Days Qty: 60 1RF methocarbamol 750 mg tablet 750 mg PO Q6H PRN (Reason: spasms) Qty: 20 0RF Discharge Orders: Discharge ED (Routine); Ordered 12/31/21 Ordered By: Jb Jaime Referrals: Cecily Miller MD [Primary Care Provider] - 1-3 days Discharge Diet: Advance as tolerated Discharge Activity: Resume usual activity Patient Instructions: Medicine Refill (ED) Coding Level of Care Code ED Speech Pathologist for Marcelino Stephen
[2021-12-31] MEDS: albuterol 8 gm MDI 2 PUFF INHALATION (21:39)
--- NOTE | 2021-12-31 21:39 | PC.NURSE ---
nurse administered 2 puffs ventolin inhaler
== END 2021-12-31 21:40 | disposition home or self-care (01) ==
PROVIDERS: Emergency Provider Emergency Medicine; PCP Internal Medicine
DX: Z76.0 Encounter for issue of repeat prescription (principal); Z79.02 Long term (current) use of antithrombotics/antiplatelets; Z79.82 Long term (current) use of aspirin; Z79.4 Long term (current) use of insulin; I25.10 Atherosclerotic heart disease of native coronary artery without angina pectoris; Z86.73 Personal history of transient ischemic attack (TIA), and cerebral infarction without residual deficits; E11.9 Type 2 diabetes mellitus without complications; E78.5 Hyperlipidemia, unspecified; I10 Essential (primary) hypertension; Z87.891 Personal history of nicotine dependence
CPT/HCPCS: 99283; J3535

== ENCOUNTER 2022-01-02 11:13 | Inpatient (IN) | payer OTHER, MEDICAID, SELFPAY ==
[2022-01-02] VITALS (20 sets, daily range): BP systolic 112–155; BP diastolic 57–79; PULSE 51–86; RESP 9–19; TEMP 36.6; O2SAT 97–100
--- NOTE | 2022-01-02 11:30 | ECG_ITS ---
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 Measurements Intervals [place] Rate: 81 P: 69 [place]: 143 QRS: 68 QRSD: 80 T: 71 QT: 332 QTc: 388 Interpretive Statements SINUS RHYTHM MODERATE VOLTAGE CRITERIA FOR LVH, CONSIDER NORMAL VARIANT [MEETS CRITERIA IN ONE OF: R(aVL), S(V1), R(V5), R(V5/V6)+S(V1)] Compared to ECG 12/31/2021 01:43:03 No significant changes Electronically Signed On 01-05-2022 18:22:02 CDT by Heath Pacheco M.D. [id number]
--- NOTE | 2022-01-02 12:31 | W.ED.CHESTPA ---
HPI - Chest Pain General: Chief Complaint: Chest Pain Stated Complaint: Chest Pain Time Seen by Provider: 01/02/22 12:31 History of Present Illness: 46-year-old male presents emergency department chief complaint of having chest pain is in been intermittent ongoing for about a year which she drinks alcohol for. Patient reports he sees Dr. 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 Apparently patient has a known history of diabetes he apparently did take 1 nitroglycerin prior to arrival with improvement of his discomfort. Associated symptoms: Deny abdominal pain, dyspnea, fever(s), nausea, palpitations or vomiting Review of Systems General: Reports: 10 or more systems reviewed and unremarkable except in HPI and below Const: Denies: fever(s), chills, fatigue or malaise Eyes: Denies: change in vision or blurry vision Card: Reports: chest pain; Denies: palpitations Resp: Denies: dyspnea or productive cough GI: Denies: abdominal pain, nausea or vomiting : Denies: flank pain Musc: Denies: extremity pain or extremity swelling Skin/Breast: Denies: rash or pruritus Neuro: Denies: headache(s) Psych: Denies: anxiety or depression Melquiades/Lymph: Denies: easy bleeding All/Imm: Denies: urticaria, throat swelling or facial swelling PFSH ED PFSH: Medical History Atherosclerotic heart disease of [place] coronary artery with unstable angina pectoris Benign essential HTN CAD (coronary artery disease) 9stents Chest pain CVA (cerebrovascular accident) Diabetes Dyslipidemia (high LDL; low HDL) Former smoker HTN (hypertension) Surgical History History of appendectomy Family History Other No pertinent family history Social History Smoking and tobacco status: former smoker Alcohol intake: never Housing: House Physical Exam Const: COMMON NORMALS: patient oriented x3, healthy appearing and well nourished (Patient is tearful on exam); apparent distress HENMT: COMMON NORMALS: normocephalic and atraumatic HEAD & SCALP: normocephalic and atraumatic Eye: COMMON NORMALS: Equal, round and reactive pupils present and EOMs intact bilaterally PUPIL: Yes Equal, round and reactive pupils present Neck/C-Spine: COMMON NORMALS: full ROM, supple and no JVD Lymph: LYMPHATIC: no lymphadenopathy noted Chest: COMMONS NORMALS: normal inspection of the chest and normal palpation of entire chest wall Resp: COMMON NORMALS: normal respiratory effort, No retractions and clear to auscultation bilaterally EFFORT & INSPECTION: Yes able to speak in complete sentences and Yes symmetric chest movement AUSCULTATION: clear to auscultation bilaterally Cardio: COMMON NORMALS: no JVD, regular rate and regular rhythm RATE: regular rate RHYTHM: regular rhythm GI: COMMON NORMALS: Normal to inspection, nondistended, normoactive bowel sounds present, Soft to palpation and non-tender INSPECTION: Yes normal to inspection PALPATION: Yes Soft to palpation : COMMON NORMALS: Yes no CVA tenderness BLADDER/KIDNEY EXAM: Yes no CVA tenderness Back/Pelvis: COMMON NORMALS: no CVA tenderness Extremity: COMMON NORMALS: normal to inspection and full ROM Neuro: COMMON NORMALS: patient oriented x3, CN's II-XII intact bilaterally, moves all extremities and no focal motor deficits Psych: COMMON NORMALS: mental status grossly normal, Normal thought process present, cooperative and normal affect THOUGHT PROCESS: Normal thought process present Skin: COMMON NORMALS: no rashes or lesions noted GENERAL SKIN EXAM: no rashes or lesions noted Course Vital Signs: Vital signs: Vital Signs Temperature 97.9 F 01/02/22 11:20 Pulse Rate 67 01/02/22 14:52 Respiratory Rate 14 01/02/22 14:52 Blood Pressure 125/74 01/02/22 14:52 Pulse Oximetry 100 01/02/22 14:52 MDM - Chest Pain Medical Decision Making Due to the patient's symptom condition lab work imaging will be obtained nitroglycerin and aspirin as well as Zofran were provided per protocol we will continue to follow no EKG changes were noted besides some hyperacute ST segment elevations appear to be chronic in comparison to previous patient does report a history of daily alcohol consumption to help contribute to improvement of his chest pain underlying concerns of potentially alcoholic gastritis or ulcer prominent we will continue to follow. Patient's first cardiac troponin was found to be elevated 121 EKG upon review does report reveals hyperacute T waves with no actual ST segment about abnormalities noted discussed the patient's case with Dr. Pacheco as patient appears to be a unstable angina non-STEMI which will be taking the patient to the Medical Receptionist patient was started on a heparin bolus/drip aspirin and Plavix per protocol. Fentanyl was provided for pain control. Lab Data : 01/02/22 12:48 01/02/22 12:48 Radiology Impressions Chest X-Ray 01/02/22 13:00 Impression: Negative chest. Laboratory Results WBC 7.9 10^3/uL (4.0-10.0) 01/02/22 12:48 RBC 4.56 10^6/uL (4.1-5.3) 01/02/22 12:48 Hgb 10.3 g/dL (11.7-16.6) L 01/02/22 12:48 Hct 32.3 % (42.0-52.0) L 01/02/22 12:48 MCV 70.8 fl (80-94) L 01/02/22 12:48 MCH 22.6 pg (28.0-34.0) L 01/02/22 12:48 MCHC 31.9 g/dL (30.0-36.0) 01/02/22 12:48 RDW 18.4 % (12.1-15.1) H 01/02/22 12:48 Plt Count 257 10^3/cmm (130-400) 01/02/22 12:48 MPV 12.1 fL (7.4-10.4) H 01/02/22 12:48 Neut % (Auto) 66.5 % 01/02/22 12:48 Lymph % (Auto) 21.4 % 01/02/22 12:48 [place] % (Auto) 9.7 % 01/02/22 12:48 Eos % (Auto) 1.5 % 01/02/22 12:48 Baso % (Auto) 0.6 % 01/02/22 12:48 Neut # (Auto) 5.23 10^3/uL (1.8-7.7) 01/02/22 12:48 Lymph # (Auto) 1.7 10^3/uL (0.8-4.8) 01/02/22 12:48 [place] # (Auto) 0.8 10^3/uL (0.2-0.9) 01/02/22 12:48 Eos # (Auto) 0.1 10^3/uL (0.0-0.8) 01/02/22 12:48 Baso # (Auto) 0.1 10^3/uL (0.0-0.1) 01/02/22 12:48 Nucleated RBC % (auto) 0 % 01/02/22 12:48 Nucleated RBCs # 0.0 /100WBC 01/02/22 12:48 PT 14.20 SECONDS (12.1-14.9) 01/02/22 13:22 INR 1.06 (0.8-1.2) 01/02/22 13:22 APTT 26.9 SECONDS (23.9-36.7) 01/02/22 13:22 Sodium 138 mmol/L (136-145) 01/02/22 12:48 Potassium 4.2 mmol/L (3.5-5.1) 01/02/22 12:48 Chloride 105 mmol/L (98-107) 01/02/22 12:48 Carbon Dioxide 23 mmol/L (22-29) 01/02/22 12:48 Anion Gap 14.2 (5-19) 01/02/22 12:48 BUN 16 mg/dL (6-20) 01/02/22 12:48 Creatinine 0.9 mg/dL (0.7-1.2) 01/02/22 12:48 GFR Calculation 91.7 mL/min (90-130) 01/02/22 12:48 Glucose 84 mg/dL (65-115) 01/02/22 12:48 Calculated Osmolality 286 mOsm/kg (285-295) 01/02/22 12:48 Calcium 9.1 mg/dL (8.5-10.5) 01/02/22 12:48 Total Bilirubin 0.5 mg/dL (0.15-1.2) 01/02/22 12:48 AST 11 U/L (0-40) 01/02/22 12:48 ALT 8 U/L (0-41) 01/02/22 12:48 Alkaline Phosphatase 62 IU/L (40-130) 01/02/22 12:48 Troponin T Baseline 121 ng/L (0-15) H* 01/02/22 12:48 NT-Pro-B Natriuret Pep 346 pg/mL (0-125) H 01/02/22 12:48 Total Protein 6.8 g/dL (6.6-8.7) 01/02/22 12:48 Albumin 4.3 g/dL (3.5-5.2) 01/02/22 12:48 Globulin 2.5 g/dL (1.3-4.6) 01/02/22 12:48 Lipase 36 U/L (13-60) 01/02/22 12:48 Urine Color Yellow (Yellow) 01/02/22 13:24 Urine Appearance Clear (CLEAR) 01/02/22 13:24 Urine pH 5 (5-7) 01/02/22 13:24 Ur Specific [place] 1.015 (1.005-1.030) 01/02/22 13:24 Urine Protein Neg (Negative) 01/02/22 13:24 Urine Glucose (UA) Norm (Normal) 01/02/22 13:24 Urine Ketones Negative (Negative) 01/02/22 13:24 Urine Blood Neg (Negative) 01/02/22 13:24 Urine Nitrate Negative (Negative) 01/02/22 13:24 Urine Bilirubin Neg (Negative) 01/02/22 13:24 Urine Urobilinogen Norm mg/dL (Negative) 01/02/22 13:24 Ur Leukocyte Esterase Negative (Negative) 01/02/22 13:24 Urine Opiates Screen Positive ng/mL (Negative) H 01/02/22 13:24 Ur Barbiturates Screen Negative ng/mL (Negative) 01/02/22 13:24 Ur Phencyclidine Scrn Negative ng/mL (Negative) 01/02/22 13:24 Ur Amphetamines Screen Negative ng/mL (Negative) 01/02/22 13:24 U Benzodiazepines Scrn Negative ng/mL (Negative) 01/02/22 13:24 Urine Cocaine Screen Negative ng/mL (Negative) 01/02/22 13:24 U Marijuana (THC) Screen Negative ng/mL (Negative) 01/02/22 13:24 Discharge Plan Discharge Patient Disposition: Admitted As Inpatient Clinical Impression: Angina pectoris, unstable, Acute non-ST elevation myocardial infarction (NSTEMI) Condition: Stable Coding Level of Care Code ED Tool Planner for Chg Fwd Exam Comprehensive
[2022-01-02 12:59] LABS: Basophils # 0.1 10^3/uL (0.0-0.1); Basophils % 0.6 %; Eosinophils # 0.1 10^3/uL (0.0-0.8); Eosinophils % 1.5 %; Hematocrit 32.3 % (42.0-52.0); Hemoglobin 10.3 g/dL (11.7-16.6); Lymphocytes # 1.7 10^3/uL (0.8-4.8); Lymphocytes % 21.4 %; Mean Corpuscular HGB Conc 31.9 g/dL (30.0-36.0); Mean Corpuscular Hemoglobin 22.6 pg (28.0-34.0); Mean Corpuscular Volume 70.8 fl (80-94); Mean Platelet Volume 12.1 fL (7.4-10.4); Monocytes # 0.8 10^3/uL (0.2-0.9); Monocytes % 9.7 %; Neutrophils # 5.23 10^3/uL (1.8-7.7); Neutrophils % 66.5 %; Nucleated Red Blood Cells % 0 %; Platelet Count 257 10^3/cmm (130-400); Red Blood Count 4.56 10^6/uL (4.1-5.3); Red Cell Distribution Width 18.4 % (12.1-15.1); White Blood Count 7.9 10^3/uL (4.0-10.0)
--- NOTE | 2022-01-02 13:00 | XR_ITS ---
WS: [id number] Portable AP upright chest, 01/02/2022 Clinical Data: chest pain Comparison: Portable chest, 12/30/2021. Findings: No nodules, masses or effusions are seen. The heart is normal. The pulmonary vascularity is not increased. No pneumonia or pneumothorax is seen. XR/XR chest 1V portable [id number] Impression: Negative chest.
--- NOTE | 2022-01-02 13:01 | ECG_ITS ---
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 Measurements Intervals [place] Rate: 56 P: 62 ID: [id number] QRS: 69 QRSD: 87 T: 69 QT: 393 QTc: 381 Interpretive Statements SINUS BRADYCARDIA MINIMAL VOLTAGE CRITERIA FOR LVH, CONSIDER NORMAL VARIANT [MEETS CRITERIA IN ONE OF: R(aVL), S(V1), R(V5), R(V5/V6)+S(V1)] Compared to ECG 12/31/2021 01:43:03 Sinus rhythm no longer present Electronically Signed On 01-02-2022 17:14:10 CDT by Anatoliy Jean Baptiste M.D. [email or web address][id number]
[2022-01-02] MEDS: ondansetron 2 mg/ML SDV 2 mL 4 MG IVP (13:17)
[2022-01-02] MEDS: sodium chloride 0.9% 500 ML 999 ML IV (13:17)
[2022-01-02] MEDS: nitroglycerin 0.4 mg sublingual Tablet SUBLINGUAL ×2 (13:17→13:51)
[2022-01-02] MEDS: aspirin 81 mg Chew Tablet 324 MG PO (13:17)
[2022-01-02 13:18] LABS: Alanine Aminotransferase 8 U/L (0-41); Albumin Level 4.3 g/dL (3.5-5.2); Alkaline Phosphatase 62 IU/L (40-130); Anion Gap 14.2 (5-19); Aspartate Amino Transferase 11 U/L (0-40); Blood Urea Nitrogen 16 mg/dL (6-20); Calcium 9.1 mg/dL (8.5-10.5); Carbon Dioxide 23 mmol/L (22-29); Chloride 105 mmol/L (98-107); Globulin 2.5 g/dL (1.3-4.6); Glomerular Filtration Rate 91.7 mL/min (90-130); Glucose 84 mg/dL (65-115); Osmolality Calculated 286 mOsm/kg (285-295); Potassium 4.2 mmol/L (3.5-5.1); Sodium 138 mmol/L (136-145); Total Bilirubin 0.5 mg/dL (0.15-1.2); Total Protein 6.8 g/dL (6.6-8.7)
--- NOTE | 2022-01-02 13:30 | PC.NURSE ---
PT PLACED ON CONTINUOUS NIBP, SPO2, AND CM
[2022-01-02 13:33] LABS: Troponin(5th) Baseline 121 ng/L (0-15)
[2022-01-02 13:34] LABS: Lipase 36 U/L (13-60)
[2022-01-02 13:42] LABS: Slide Review Slide Review Perform
[2022-01-02 13:43] LABS: INR 1.06 (0.8-1.2)
[2022-01-02 13:44] LABS: Partial Thromboplastin Time 26.9 SECONDS (23.9-36.7)
[2022-01-02 13:44] LABS: Add Urine Microscopic? NO; Charge for UA Resulting for Rev
[2022-01-02 13:46] LABS: Bilirubin Urine Neg (Negative); Blood Urine Neg (Negative); Glucose Urine UA Norm (Normal); Ketones Urine Negative (Negative); Leukocyte Esterase Urine Negative (Negative); Nitrate Urine Negative (Negative); Protein Urine Neg (Negative); Specific Gravity, Urine 1.015 (1.005-1.030); Urine Appearance Clear (CLEAR); Urine Color Yellow (Yellow); Urobilinogen Urine Norm (Negative); pH Urine 5 (5-7)
[2022-01-02 13:49] LABS: NT Pro B Type Natriuretic Pept 346 pg/mL (0-125)
[2022-01-02 13:54] LABS: Amphetamines Screen Urine Negative (Negative); Barbiturates Screen Urine Negative (Negative); Benzodiazepines Screen Urine Negative (Negative); Cocaine Screen Urine Negative (Negative); Opiate Screen Urine Positive (Negative); PCP Screen Urine Negative (Negative); THC Screen Urine Negative (Negative)
--- NOTE | 2022-01-02 14:34 | P.CONIM_ITS ---
Providers/Reason For Consult Consulting Physician/Specialty*: Heath Pacheco MD/Cardiology Reason for Consult*: NSTEMI Requesting Physician: Dr Sam Primary Care Provider: Cecily Miller MD History of Present Illness History of Present Illness Alonso June is a 46 year old male with past medical history of CAD, insulin- dependent diabetes and hypertension who had multiple recent ER visits secondary to chest pain symptoms. According to patient he started noticing substernal chest pain radiating to the left arm earlier today. It is associated with shortness of breath. He had heart cath in August that showed patent prior stents. He has multiple stents in the heart. Nitro improved discomfort however still having on and off chest pain. Initial troponin was 121 which trended up to 179 at 2 hours. Review of Systems General: Reports: 10 or more systems reviewed and unremarkable except in HPI and below Const: Denies: fever(s), chills, body aches, change in appetite, change in weight, malaise, night sweats, diaphoresis, change in sleep pattern, daytime s leepiness or snoring Eyes: Denies: change in vision, blurry vision, photophobia, eye discomfort or eye discharge ENMT: Denies: throat pain, enlarged tonsils, hoarseness, mouth pain, oral sores, dry mouth, tinnitus, nasal congestion or post nasal drip Card: Reports: chest pain; Denies: palpitations, irregular heart rhythm, edema, swelling of feet/ankles, lightheadedness, syncope, pre-syncope, dyspnea on exertion, orthopnea, leg pain with exertion or acrocyanosis Resp: Reports: dyspnea; Denies: productive cough, non-productive cough, wheezing, stridor, pain on inspiration, change in phlegm color, hemoptysis or chest congestion GI: Denies: abdominal pain, nausea, vomiting, hematemesis, coffee ground emesis, dysphagia, heartburn, diarrhea, constipation, bloating, GI cramping, change in bowel habits, pain on defecation, hematochezia or melena : Denies: flank pain, difficulty urinating, dysuria, urinary frequency, urinary urgency, urinary hesitancy, urinary dribbling, difficulty starting urination, change in urine stream, nocturia or hematuria Musc: Denies: neck pain, back pain, extremity pain, joint pain, joint swelling, joint redness, joint stiffness or limited range of motion Neuro: Denies: headache(s), numbness in extremities, weakness in extremities, sensory changes, lack of coordination, difficulty walking, frequent falls, dizziness, vertigo, confusion, Slurred speech present, difficulty communicating thoughts or seizure-like activity Psych: Denies: anxiety, depression, mood swings, panic attacks, hopelessness or irritability Endo: Denies: polyuria, polydipsia, tired all the time, cold intolerance, excessive sweating, flushing or heat intolerance Melquiades/Lymph: Denies: easy bruising or easy bleeding All/Imm: Denies: tongue swelling, facial swelling or acute wheezing Medications/Allergies Home Medications Medication Instructions Recorded Confirmed Last Taken Type mmembcnzys-cohvobatjxjlf-lwysrcsg 2 tab PO BID PRN 09/03/21 01/02/22 Unknown History 50 mg-325 mg-40 mg tablet insulin aspart U-100 100 unit/mL See Rx Instructions .ROUTE 09/05/21 01/02/22 Unknown Rx (3 mL) subcutaneous pen (Novolog .COMPLEX #15 ml Flexpen U-100 Insulin aspart) isosorbide mononitrate 60 mg 60 mg PO BID #60 tab 09/20/21 01/02/22 01/02/22 Rx tablet,extended release 24 hr albuterol sulfate 90 mcg/actuation 2 puff INHALATION Q4H PRN 1 Days 10/01/21 01/02/22 Unknown Rx aerosol inhaler (ProAir HFA) #30 g aripiprazole 10 mg tablet 5 mg PO DAILY 30 Days #30 tab 10/11/21 01/02/22 01/02/22 Rx aspirin 81 mg tablet,delayed 81 mg PO QAM 30 Days #30 tab 10/11/21 01/02/22 01/02/22 Rx release atorvastatin 40 mg tablet 40 mg PO BEDTIME 30 Days #30 tab 10/11/21 01/02/22 01/01/22 Rx carvedilol 3.125 mg tablet 3.125 mg PO Q12H 30 Days #60 tab 10/11/21 01/02/22 01/02/22 Rx escitalopram oxalate 10 mg tablet 10 mg PO DAILY 30 Days #30 tab 10/11/21 01/02/22 01/02/22 Rx nitroglycerin 0.4 mg sublingual 0.4 mg SUBLINGUAL Q5M PRN 30 Days 10/11/21 01/02/22 Unknown Rx tablet (Nitrostat) #60 tab ondansetron HCl 4 mg tablet 4 mg PO Q8H PRN 30 Days #60 tab 10/11/21 01/02/22 Unknown Rx pantoprazole 40 mg tablet,delayed 40 mg PO DAILY 30 Days #30 tab 10/11/21 01/02/22 01/01/22 Rx release (Protonix) ranolazine 500 mg tablet,extended 500 mg PO BID 30 Days #60 tab 10/11/21 01/02/22 Unknown Rx release,12 hr clopidogrel 75 mg tablet 75 mg PO QAM #30 tab 11/04/21 01/02/22 01/02/22 Rx methocarbamol 750 mg tablet 750 mg PO Q6H PRN #20 tab 11/10/21 01/02/22 Unknown Rx hydroxyzine HCl 25 mg tablet 25 mg PO BID PRN 01/02/22 01/02/22 Unknown History insulin glargine 100 unit/mL (3 5 unit SUBCUT BEDTIME 01/02/22 01/02/22 01/01/22 History mL) subcutaneous pen (Lantus Solostar U-100 Insulin) Allergies Allergy/AdvReac Type Severity Reaction Status Date / Time butorphanol [From Stadol] Allergy ALGY-Difficulty Verified 01/02/22 11:22 Breathing diphenhydramine Allergy ADR-Itching Verified 01/02/22 11:22 [From Benadryl] Iodinated Contrast Media Allergy Unresponsiv Verified 01/02/22 11:22 e iodine Allergy Unresponsiv Verified 01/02/22 11:22 e ketorolac [From Toradol] Allergy ALGY-Difficulty Verified 01/02/22 11:22 Breathing nalbuphine [From Nubain] Allergy Unknown Verified 01/02/22 11:22 Penicillins Allergy Unknown Verified 01/02/22 11:22 promethazine [From Phenergan] Allergy Unknown Verified 01/02/22 11:22 Current Medications Generic Name Dose Route Start Last Admin Trade Name Freq PRN Reason Stop Dose Admin Nitroglycerin 0.4 mg 01/02/22 13:00 01/02/22 13:51 Nitroglycerin 0.4 Mg Sublingual Tablet SUBLINGUAL 0.4 mg Q5M PRN Administration CHEST PAIN PFSH Acute PFSH: Medical History Atherosclerotic heart disease of [place] coronary artery with unstable angina pectoris Benign essential HTN CAD (coronary artery disease) 9stents Chest pain CVA (cerebrovascular accident) Diabetes Dyslipidemia (high LDL; low HDL) Former smoker HTN (hypertension) Surgical History History of appendectomy Family History Other No pertinent family history Social History Smoking and tobacco status: former smoker Alcohol intake: never Housing: House Vitals/I&O/Wt Last Vital Signs Temp 97.9 F 01/02/22 11:20 Pulse 68 01/02/22 12:22 Resp 14 01/02/22 12:22 BP 129/79 01/02/22 12:22 Pulse Ox 100 01/02/22 12:22 Weight last 48 hrs Weight 145 lb Physical Exam Narrative: GENERAL: Patient is alert, awake and oriented x3. [] NECK: No jugular vein distension. [] HEENT: No cyanosis. No icterus. No pallor. [] HEART: Regular S1 and S2. No murmur, rub or gallop. [] LUNGS: Clear to auscultate bilaterally. [] ABDOMEN: Soft, nontender and nondistended. Positive bowel sounds. No guarding, rebound or tenderness. [] CENTRAL NERVOUS SYSTEM: Grossly nonfocal. [] EXTREMITIES: Lower extremities with 1+ edema bilaterally. Pulses palpable in the lower extremities, both dorsalis pedis and posterior tibial. [] Data : 01/02/22 12:48 01/02/22 12:48 A&P Assessment and plan (1) Acute non-ST elevation myocardial infarction (NSTEMI): Status: Acute (2) Chest pain: Status: Acute (3) CAD (coronary artery disease): Status: Acute (4) Benign essential HTN: Status: Acute (5) Diabetes: Status: Acute Plan Outpatient has presented with non-ST elevation [place]. He is having chest pain at this time. Plan for coronary angiogram with possible percutaneous coronary intervention today. Aspirin and Plavix Continue heparin drip. High intensity statin therapy Order echocardiogram. Thank you for involving us with care of this patient. We will continue to follow. Please call with questions. Consult Attestations Medical Necessity Statement: Care expected to cross 2 midnights. 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
[2022-01-02] MEDS: fentaNYL 50 mcg/mL INJ 2mL IVP (14:39)
[2022-01-02] MEDS: heparin 5,000 unit/mL INJ 1 mL IV (14:39)
[2022-01-02] MEDS: nitroglycerin 1 gm/inch oint Pkt 1 INCH TOPICAL (14:39)
[2022-01-02] MEDS: heparin drip 25,000 UNIT/500 ML PREMIX 18.42 UNIT IV (14:42)
--- NOTE | 2022-01-02 15:01 | ECG_ITS ---
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 Measurements Intervals [place] Rate: 70 P: 65 SD: 152 QRS: 70 QRSD: 86 T: 71 QT: 390 QTc: 421 Interpretive Statements SINUS RHYTHM WITH SINUS ARRHYTHMIA MODERATE VOLTAGE CRITERIA FOR LVH, CONSIDER NORMAL VARIANT [MEETS CRITERIA IN ONE OF: R(aVL), S(V1), R(V5), R(V5/V6)+S(V1)] Compared to ECG 01/02/2022 16:41:38 Sinus bradycardia no longer present Electronically Signed On 01-02-2022 17:20:05 CDT by Anatoliy Jean Baptiste M.D. [id number]
[2022-01-02 16:05] LABS: Troponin 5 2HR 179.5 ng/L (0-15); Troponin 5 2HR Delta 58.5 ABS# (0-10)
--- NOTE | 2022-01-02 16:21 | P.HP_ITS ---
Providers/Chief Complaint Admitting Physician: Heath Pacheco M.D Primary Care Provider: Cecily Miller MD Chief Complaint: Chest Pain History of Present Illness Alonso June is a 46 year old male with a PMH of ?multiple hospital admissions for chest pain, CVA treated with tPA when he left AGAINST MEDICAL ADVICE, current alcohol abuser, current smoker, CAD, history of multiple stents, last hospitalization at [facility] on 08/31/2009 for chest pain, cath report from August 12, 2021 showed left main, left anterior descending, diagonal and right posterior descending artery patent.? Stents in LAD, diagonal and right PDA were patent.? IFR was performed to the left main, distal LAD, left circumflex all found to be hemodynamically insignificant.? Does have small vessel CAD which is not amenable to PCI or CABG this should be treated medically. ? In addition he had another angiogram on 07/12/2021 left heart cath no new findings. Patient presents to the ER today with chest pain which started earlier today morning while he was walking at his home radiating to his arm associated with shortness of breath. Patient states he was not having any chest pain yesterday on examination overdraft. He said there has been no changes to his medications. Symptoms today associated with mild dizziness and nausea. Denies any syncope. Patient was found to be in non-ST elevation [place] in the ER and was planned to go to the Program Mgr for cardiac catheterization due to ongoing chest pain. He was started on heparin drip. When seen by me patient was complaining of mild chest pain on heparin drip which has been running for an hour and a half and was. Being wheeled to the Program Mgr. On routine Program Mgr upon transfer to the procedure table he developed flaccid paralysis of left upper limb and lower limb. Patient at start was alert oriented x3 during the whole event. Code stroke was called and patient was being taken to CT scan for further evaluation and cardiac catheterization was aborted. Patient was seen by neurologist from [facility]. As per my conversa tion with ER physician neurologist at [facility] recommended against tPA given past history of leaving AGAINST MEDICAL ADVICE and current history of being on heparin drip for around 2 hours. On returning back from CT scan patient had spontaneous recovery and movement of his left side of his body. Patient was continued on heparin drip as per recommendations from [facility] given ongoing non-ST elevation [place]. Review of Systems General: Reports: 10 or more systems reviewed and unremarkable except in HPI and below Const: Denies: fever(s), chills, body aches, change in appetite, change in we ight, malaise, night sweats, diaphoresis, change in sleep pattern, daytime sleepiness or snoring Eyes: Denies: change in vision, blurry vision, photophobia, eye discomfort or eye discharge ENMT: Denies: throat pain, enlarged tonsils, hoarseness, mouth pain, oral sores, dry mouth, tinnitus, nasal congestion or post nasal drip Card: Denies: chest pain, palpitations, irregular heart rhythm, edema, swelling of feet/ankles, lightheadedness, syncope, pre-syncope, dyspnea on exertion, orthopnea, leg pain with exertion or acrocyanosis Resp: Denies: dyspnea, productive cough, non-productive cough, wheezing, stridor, pain on inspiration, change in phlegm color, hemoptysis or chest congestion GI: Denies: abdominal pain, nausea, vomiting, hematemesis, coffee ground emesis, dysphagia, heartburn, diarrhea, constipation, bloating, GI cramping, change in bowel habits, pain on defecation, hematochezia or melena : Denies: flank pain, difficulty urinating, dysuria, urinary frequency, urinary urgency, urinary hesitancy, urinary dribbling, difficulty starting urination, change in urine stream, nocturia or hematuria Musc: Denies: neck pain, back pain, extremity pain, joint pain, joint swelli ng, joint redness, joint stiffness or limited range of motion Neuro: Denies: headache(s), numbness in extremities, weakness in extremities, sensory changes, lack of coordination, difficulty walking, frequent falls, dizziness, vertigo, confusion, Slurred speech present, difficulty communicating thoughts or seizure-like activity Psych: Denies: anxiety, depression, mood swings, panic attacks, hopelessness or irritability Endo: Denies: polyuria, polydipsia, tired all the time, cold intolerance, excessive sweating, flushing or heat intolerance Melquiades/Lymph: Denies: easy bruising or easy bleeding All/Imm: Denies: tongue swelling, facial swelling or acute wheezing Medications/Allergies Home Medications Medication Instructions Recorded Confirmed Last Taken Type evltfdtzbv-ewszlvgnlmiwc-ecefsjjk 2 tab PO BID PRN 09/03/21 01/02/22 Unknown History 50 mg-325 mg-40 mg tablet insulin aspart U-100 100 unit/mL See Rx Instructions .ROUTE 09/05/21 01/02/22 Unknown Rx (3 mL) subcutaneous pen (Novolog .COMPLEX #15 ml Flexpen U-100 Insulin aspart) isosorbide mononitrate 60 mg 60 mg PO BID #60 tab 09/20/21 01/02/22 01/02/22 Rx tablet,extended release 24 hr albuterol sulfate 90 mcg/actuation 2 puff INHALATION Q4H PRN 1 Days 10/01/21 01/02/22 Unknown Rx aerosol inhaler (ProAir HFA) #30 g aripiprazole 10 mg tablet 5 mg PO DAILY 30 Days #30 tab 10/11/21 01/02/22 01/02/22 Rx aspirin 81 mg tablet,delayed 81 mg PO QAM 30 Days #30 tab 10/11/21 01/02/22 01/02/22 Rx release atorvastatin 40 mg tablet 40 mg PO BEDTIME 30 Days #30 tab 10/11/21 01/02/22 01/01/22 Rx carvedilol 3.125 mg tablet 3.125 mg PO Q12H 30 Days #60 tab 10/11/21 01/02/22 Rx escitalopram oxalate 10 mg tablet 10 mg PO DAILY 30 Days #30 tab 10/11/21 01/02/22 01/02/22 Rx nitroglycerin 0.4 mg sublingual 0.4 mg SUBLINGUAL Q5M PRN 30 Days 10/11/21 01/02/22 Unknown Rx tablet (Nitrostat) #60 tab ondansetron HCl 4 mg tablet 4 mg PO Q8H PRN 30 Days #60 tab 10/11/21 01/02/22 Unknown Rx pantoprazole 40 mg tablet,delayed 40 mg PO DAILY 30 Days #30 tab 10/11/21 01/02/22 01/01/22 Rx release (Protonix) ranolazine 500 mg tablet,extended 500 mg PO BID 30 Days #60 tab 10/11/21 01/02/22 Unknown Rx release,12 hr clopidogrel 75 mg tablet 75 mg PO QAM #30 tab 11/04/21 01/02/2201/02/22 Rx methocarbamol 750 mg tablet 750 mg PO Q6H PRN #20 tab 11/10/21 01/02/22 Unknown Rx hydroxyzine HCl 25 mg tablet 25 mg PO BID PRN 01/02/22 01/02/22 Unknown History insulin glargine 100 unit/mL (3 5 unit SUBCUT BEDTIME 01/02/22 01/02/22 01/01/22 History mL) subcutaneous pen (Lantus Solostar U-100 Insulin) Allergies Allergy/AdvReac Type Severity Reaction Status Date / Time butorphanol [From Stadol] Allergy ALGY-Difficulty Verified 01/02/22 11:22 Breathing diphenhydramine Allergy ADR-Itching Verified 01/02/22 11:22 [From Benadryl] Iodinated Contrast Media Allergy Unresponsiv Verified 01/02/22 11:22 e iodine Allergy Unresponsiv Verified 01/02/22 11:22 e ketorolac [From Toradol] Allergy ALGY-Difficulty Verified 01/02/22 11:22 Breathing nalbuphine [From Nubain] Allergy Unknown Verified 01/02/22 11:22 Penicillins Allergy Unknown Verified 01/02/22 11:22 promethazine [From Phenergan] Allergy Unknown Verified 01/02/22 11:22 PFSH Acute PFSH: Medical History (Updated 01/02/22 @ 22:09 by Maximo Pickett MD) Atherosclerotic heart disease of [place] coronary artery with unstable angina pectoris Benign essential HTN CAD (coronary artery disease) 9stents Chest pain CVA (cerebrovascular accident) Diabetes Dyslipidemia (high LDL; low HDL) Former smoker HTN (hypertension) Surgical History History of appendectomy Family History Other No pertinent family history Social History Smoking and tobacco status: former smoker Alcohol intake: never Housing: House Vitals/I&O/Wt Last Vital Signs Temp 97.9 F 01/02/22 11:20 Pulse 67 01/02/22 14:52 Resp 14 01/02/22 14:52 BP 125/74 01/02/22 14:52 Pulse Ox 100 01/02/22 14:52 01/02/22 01/02/22 01/02/22 06:59 14:59 22:59 Intake Total 500 / 500 Balance 500 / 500 Weight last 48 hrs Weight 65.771 kg Physical Exam Narrative: General: No acute distress, AO x3, chronically ill-appearing, cachectic, disheveled HEENT: PERRLA, pupils bilaterally equal and reactive Chest: Normal vesicular breath sounds, no added sounds, equal good air entry bilaterally CVS: S1-S2 regular, no murmurs, no tachycardia, no gallops, no rubs Abdomen: Soft, nontender, no organomegaly, bowel sounds present Neuro: No focal deficits, no facial deformity, AO x3, power 5/5 in all limbs Data : 01/03/22 03:55 01/03/22 03:55 A&P Assessment and plan (1) Acute non-ST elevation myocardial infarction (NSTEMI): Status: Acute (2) CVA (cerebrovascular accident): Status: Acute (3) CAD (coronary artery disease): Status: Acute (4) Benign essential HTN: Status: Acute (5) Diabetes: Status: Acute (6) Former smoker: Status: Acute Plan 46-year-old with past medical history of CAD, post multiple PCI, history of CVA, history of tPA, history of leaving AGAINST MEDICAL ADVICE, alcoholic, current smoker presents to the ER with ongoing chest pain found to be non-ST elevation [place] and later having symptoms concerning for stroke while being taken for cardiac catheterization and found to have normal CT head and CTA head and neck. Non-ST elevation [place]: History of CAD and multiple PCI in the past. Cardiology consulted from the ER. Continue with heparin drip. Okay from neurologist from [facility]. Continue with aspirin, statin. Check A1c, lipid panel. Morphine for pain. Nitro patch half-inch as needed every 6 hours. Will not try to do continuous Nitropatch for possible permissible hypertension. Hold off on starting beta-juliet and MARIA ESTHER inhibitor for now. Echocardiogram. Strokelike symptoms: History of CVA and tPA in the past. Also has a history of leaving AGAINST MEDICAL ADVICE in the past as per chart. Cannot rule out functional. Patient seen through televisit by neurologist at [facility]. Recommended against tPA. Okay with continuing heparin drip. No current symptoms. CT, CTA head and neck results appreciated. Echocardiogram as above. Telemetry. PT/OT/speech evaluation. Type 2 diabetes mellitus: Insulin sliding scale every 6 hours as patient is NPO. Hypertension: Given strokelike symptoms which have completely resolved for now target blood pressure less than 140/90 mmHg. Hold off on antihypertensives for now. Check for urine drug screen, alcohol level, iron level, vitamin B12, folate. Chronic alcoholism: Watch for alcohol withdrawal. chart Check alcohol level. N.p.o. for possibility of requirement of emergent procedure. Heparin drip will suffice for DVT prophylaxis. Protonix for PUD prophylaxis. Admit to ICU. Attestations Medical Necessity Statement*: Admission for more than 2 midnights for management of non-ST elevation [place] in a patient with history of CAD, chronic smoker who also developed strokelike symptoms with complete resolution currently. Critical Care Time: The high probability of a clinically significant, sudden or life threatening deterioration of the patient's [cardiac, neurological system(s) required my full and direct attention, intervention and personal management. The critical care time is as shown. This time is in addition to time spent performing any reported procedures but includes the following: [x] Data and vital sign review and interpretation [x] Patient assessment, examination and intervention [x] Documentation [x] Medication orders and management Critical Care Time (min): 70 Coding Level of Care Code Acute [facility] Equipment Operator for [facility] Fwd Diagnoses Acute non-ST elevation myocardial infarction (NSTEMI) I21.4 CAD (coronary artery disease) I25.10 Benign essential HTN I10 Diabetes E11.9 Former smoker Z87.891 CVA (cerebrovascular accident) I63.9
--- NOTE | 2022-01-02 16:57 | CTR_ITS ---
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 History of prior stroke. TECHNIQUE: Imaging protocol: Computed tomographic angiography of the head with contrast. 3D rendering (Not supervised by radiologist): MIP and/or 3D reconstructed images were created by the technologist. Radiation optimization: All CT scans at this facility use at least one of these dose optimization techniques: automated exposure control; mA and/or kV adjustment per patient size (includes targeted exams where dose is matched to clinical indication); or iterative reconstruction. Contrast material: VISI 320; Contrast volume: 95 ml; Contrast route: INTRAVENOUS (IV); COMPARISON: CT angio headneck* [id number] 09/30/2021 5:00 PM RADIATION DOSE METRICS: Total DLP (mGy-cm): 512.67 FINDINGS: ANTERIOR CIRCULATION: Right internal carotid artery: Stable mild calcified plaque at the cavernous segment. No occlusion, thrombosis, stenosis, extravasation, dissection, or aneurysm. Right middle cerebral artery: Unremarkable. No occlusion, thrombosis, stenosis, extravasation, dissection, or aneurysm. Right anterior cerebral artery: Unremarkable. No occlusion, thrombosis, stenosis, extravasation, dissection, or aneurysm. Anterior communicating artery: The anterior communicating artery is unremarkable. Left internal carotid artery: Stable mild calcified and noncalcified plaque supraclinoid segment. No occlusion, thrombosis, stenosis, extravasation, dissection, or aneurysm. Left middle cerebral artery: Unremarkable. No occlusion, thrombosis, stenosis, extravasation, dissection, or aneurysm. Left anterior cerebral artery: Unremarkable. No occlusion, thrombosis, stenosis, extravasation, dissection, or aneurysm. POSTERIOR CIRCULATION: Right vertebral artery: Unremarkable. No occlusion, thrombosis, stenosis, extravasation, dissection, or aneurysm. Left vertebral artery: Unremarkable. No occlusion, thrombosis, stenosis, extravasation, dissection, or aneurysm. Basilar artery: Unremarkable. No occlusion, thrombosis, stenosis, extravasation, dissection, or aneurysm. The right and left posteroinferior cerebellar arteries arise from the basilar artery. Right posterior cerebral artery: Unremarkable. No occlusion, thrombosis, stenosis, dissection, or aneurysm. Left posterior cerebral artery: Unremarkable. No occlusion, thrombosis, stenosis, extravasation, dissection, or aneurysm. Right posterior communicating artery: The right posterior communicating artery is not visualized. The right posterior communicating artery may be congenitally absent, or may be too small for the resolution capabilities of this study. Left posterior communicating artery: The left posterior communicating artery is not visualized. The left posterior communicating artery may be congenitally absent, or may be too small for the resolution capabilities of this study. Veins: The dural sinuses and deep cerebral veins are patent. Brain: No definite mass, mass effect, or midline shift. Cerebral ventricles: No hydrocephalus. Mastoid air cells: Mastoid air cells are clear bilaterally. Orbital cavity: Globes and lenses, extraocular muscles, and optic nerves are intact bilaterally. No acute intraorbital abnormality. Paranasal sinuses: Paranasal sinuses are clear. Bones/joints: No acute fracture. Soft tissues: The extracranial soft tissues are unremarkable. 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 History of prior stroke. TECHNIQUE: Imaging protocol: Computed tomographic angiography of the neck with contrast. Sagittal and coronal reformatted images were created and reviewed. 3D rendering (Not supervised by radiologist): MIP and/or 3D reconstructed images were created by the technologist. Radiation optimization: All CT scans at this facility use at least one of these dose optimization techniques: automated exposure control; mA and/or kV adjustment per patient size (includes targeted exams where dose is matched to clinical indication); or iterative reconstruction. Contrast material: VISI 320; Contrast volume: 95 ml; Contrast route: INTRAVENOUS (IV); COMPARISON: CT angio headneck* [id number] 09/30/2021 5:00 PM RADIATION DOSE METRICS: Total DLP (mGy-cm): 512.67 FINDINGS: Right common carotid artery: Stable mild calcified and noncalcified plaque at the carotid bulb. No occlusion, thrombosis, stenosis, extravasation, dissection, or aneurysm. Right internal carotid artery: Stable mild. calcified and noncalcified plaque at the origin. No occlusion, thrombosis, stenosis, extravasation, dissection, or aneurysm. Right external carotid artery: Unremarkable. No occlusion, thrombosis, stenosis, extravasation, dissection, or aneurysm. Left common carotid artery: Stable mild to moderate noncalcified plaque in the mid/distal left CCA with 30% stenosis. Stable mild calcified and noncalcified plaque at the carotid bulb. No occlusion, thrombosis, extravasation, dissection, or aneurysm. Left internal carotid artery: Stable mild calcified and moderate noncalcified plaque at the origin with 47% stenosis using NASCET criteria. No occlusion, thrombosis, extravasation, dissection, or aneurysm. Left external carotid artery: Unremarkable. No occlusion, thrombosis, stenosis, extravasation, dissection, or aneurysm. Right vertebral artery: Unremarkable. No occlusion, thrombosis, stenosis, extravasation, dissection, or aneurysm. Left vertebral artery: Stable moderate noncalcified plaque at the origin with 50% stenosis. No occlusion, thrombosis, extravasation, dissection, or aneurysm. Brachiocephalic artery: Unremarkable. No occlusion, thrombosis, stenosis, extravasation, dissection, or aneurysm. Subclavian arteries: Right subclavian artery is unremarkable. Stable mild noncalcified plaque in the proximal left subclavian artery. No occlusion, thrombosis, stenosis, extravasation, dissection, or aneurysm. Aorta: Visualized aortic arch is unremarkable. No occlusion, thrombosis, stenosis, extravasation, dissection, or aneurysm. Lymph nodes: No lymphadenopathy. Soft tissues: No soft tissue swelling. Bones/joints: Mild degenerative changes in the visualized spine. Lungs: Visualized lungs are clear. CT/CT angio headneck* [id number] IMPRESSION: 1. Stable mild atherosclerotic disease in the intracranial right and left internal carotid arteries. No occlusion, thrombosis, stenosis, extravasation, dissection, or aneurysm. 2. The right and left posteroinferior cerebellar arteries arise from the basilar artery. 3. The posterior communicating arteries are not visualized. The posterior communicating arteries may be congenitally absent, or may be too small for the resolution capabilities of this study. IMPRESSION: 1. Stable xcwy-bc-djibmwix sclerotic disease. No occlusion, thrombosis, extravasation, dissection, or aneurysm. 2. Stable 47% stenosis at the origin of the left internal carotid artery. 3. Stable 30% stenosis in the mid/distal left common carotid artery. 4. Stable 50% stenosis at the origin of the left vertebral artery. 5. Incidental/nonacute findings are listed in the report. 6. Incidental/nonacute findings are listed in the report. REFERENCES: NASCET CRITERIA. The degree of internal carotid artery stenosis is based on NASCET criteria. Normal is no stenosis. Mild is less than 50% stenosis. Moderate is 50-69% stenosis. Severe is 70% to 99% stenosis. Total occlusion is no detectable patent lumen.
--- NOTE | 2022-01-02 16:57 | CTR_ITS ---
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 History of prior stroke. TECHNIQUE: Imaging protocol: Computed tomography of the head without contrast. Sagittal and coronal reformatted images were created and reviewed. Radiation optimization: All CT scans at this facility use at least one of these dose optimization techniques: automated exposure control; mA and/or kV adjustment per patient size (includes targeted exams where dose is matched to clinical indication); or iterative reconstruction. Other technique: STROKE PROTOCOL was implemented. COMPARISON: CT head wo con* [id number] 11/05/2021 7:50 PM RADIATION DOSE METRICS: Total DLP (mGy-cm): 1143.28 FINDINGS: Brain: No acute intracranial hemorrhage. No acute infarct. No intra-axial or extra-axial masses. Gabriel-white matter differentiation is preserved. No cerebral edema. No extra-axial fluid collections. No midline shift. No evidence for Chiari 1 malformation. Cerebral ventricles: No hydrocephalus. Paranasal sinuses: Visualized paranasal sinuses are clear. Mastoid air cells: Visualized mastoid air cells are clear. Orbital cavities: No acute abnormality in the visualized orbits. Dental: The patient is edentulous. Bones/joints: No acute fracture. Soft tissues: The extracranial soft tissues are unremarkable. Vasculature: Stable atherosclerotic changes in the visualized arteries. CT/CT head wo con* [id number] IMPRESSION: 1. No acute abnormality of the brain. 2. Incidental/nonacute findings are listed in the report. ASSESSMENT: ASPECTS (Janeth Stroke Program Early CT Score) Score is 10.
[2022-01-02] MEDS: diphenhydrAMINE 50 mg/mL SDV 1mL IVP (17:20)
--- NOTE | 2022-01-02 17:20 | PC.NURSE ---
Meds were admin for emergency use in CT lab for CTA.
[2022-01-02] MEDS: iodixanol 320 mg/mL 100mL Btl IV (17:25)
[2022-01-02 17:57] LABS: INR 1.21 (0.8-1.2)
--- NOTE | 2022-01-02 18:38 | PM.MISC ---
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 As he was put on the table to set up for procedure he could not lift his left arm and left leg. There was no sensation either. Primary team hospitalist, Dr. Bliss was present in the cardiac Outlet Manager as well. Stroke alert was activated and patient was sent to radiology department for emergent CTA of head and neck. Primary team will assume care from here. We will postpone coronary angiogram at this time. Once stroke is ruled out, we will plan on coronary angiogram tomorrow or Wednesday.
--- NOTE | 2022-01-02 19:01 | ECG_ITS ---
[facility] Test Date: 2022-01-02 Pat Name: Alonso June Department: Room: ICU03 Gender: Male Bolt Man: : 1975 Requested By: Darren Sam Order Number: [id number] Janel MD: Heath Pacheco M.D. Measurements Intervals [place] Rate: 57 P: 58 WV: 147 QRS: 67 QRSD: 86 T: 69 QT: 380 QTc: 372 Interpretive Statements SINUS BRADYCARDIA WITH SINUS ARRHYTHMIA MODERATE VOLTAGE CRITERIA FOR LVH, CONSIDER NORMAL VARIANT [MEETS CRITERIA IN ONE OF: R(aVL), S(V1), R(V5), R(V5/V6)+S(V1)] Compared to ECG 01/02/2022 16:43:07 Sinus rhythm no longer present Electronically Signed On 01-05-2022 18:21:52 CDT by Heath Pacheco M.D. [email or web address]
[2022-01-02 19:34] LABS: Troponin 5 6HR 164.6 ng/L (0-15)
[2022-01-02 19:35] LABS: Troponin 5 6HR Delta 43.6 ng/L (0-12)
--- NOTE | 2022-01-02 20:55 | PC.NURSE ---
Dr. Vines notified that pt threatens to leave AMA if not given food. NPO except meds order received.
--- NOTE | 2022-01-02 20:59 | PC.NURSE ---
Dr. Vines notified of pt's left-sided chest pain radiating down his arm 02/28. Orders received, see AUG.
[2022-01-02] MEDS: morphine 4 mg/mL SDV 1 mL 2 MG IVP (21:11)
--- NOTE | 2022-01-02 21:23 | PC.NURSE ---
Pt reports that he has bowel movements every 2 weeks that are bloody. He states that his diet consists of steak, 1 pound of hamlin, and 1 dozen eggs per day. He tells me that he had a stroke today, and his hands swelled up like balloons, right before the event. He states that he has been falling and had dizziness for 1 day. He states that his chest pain is in his left chest and arm and is only relieved by morphine. Pt initially states that he will leave if he is made NPO, but then agreed to stay for now.
--- NOTE | 2022-01-02 21:36 | PC.NURSE ---
Addendum entered by Jennyfer Santiago, MACARIO 01/02/22 21:57: time started at 1915 Original Note: heparin drip restart this nurse got in report from previous nurse that physician ordered heparin drip stopped. previous nurse did not chart this in the MAR. this nurse started heparin again with witness Louis SROTO to restart at 14u/kg/hr.
[2022-01-02 21:38] LABS: Alcohol Level < 10 mg/dL (0-10)
[2022-01-02] MEDS: nitroglycerin 1 gm/inch oint Pkt 0.5 INCH TOPICAL (21:40)
--- NOTE | 2022-01-02 21:41 | PC.NURSE ---
Pt resting quietly in bed with eyes closed. Respirations are even and unlabored.
--- NOTE | 2022-01-02 21:58 | PC.NURSE ---
heparin titration this nurse spoke with dr. rehman @ 2000 and she gave orders to titrate the heparin to the level of APTT of 150 since the APTT as 151. Louis SORTO witnessed titration decrease of 3 u/kg/hr to 11.
--- NOTE | 2022-01-02 22:06 | PC.NURSE ---
Pt reports chest pain and left arm pain 9/10. Pt woken from sleep to perform assessment, and fell back to sleep almost immediately.
[2022-01-02 22:54] LABS: Glucose Point of Care 139 mg/dL (70-110)
[2022-01-02 23:10] LABS: Thyroid Stimulating Hormone 0.27 uIU/mL (0.27-4.20)
[2022-01-03] VITALS (49 sets, daily range): BP systolic 104–173; BP diastolic 55–141; PULSE 52–117; RESP 7–32; TEMP 36.6; O2SAT 96–100
[2022-01-03 00:11] LABS: Iron 26 ug/dL (59-158); Percent Saturation 7.4 % (20-50); Total Iron Binding Capacity 351 mcg/dl; Unsaturated Iron Binding 325 ug/dL (112-347)
--- NOTE | 2022-01-03 00:11 | PC.NURSE ---
Pt resting quietly in bed with eyes closed. Respirations are even and unlabored. Respirations are no longer shallow. Skin is dry and pink.
[2022-01-03 00:27] LABS: Vitamin B12 443 pg/mL (232-1245)
[2022-01-03] MEDS: morphine 4 mg/mL SDV 1 mL 2 MG IVP ×3 (00:29→08:16)
[2022-01-03 00:37] LABS: Folate Level 12.8 ng/mL (4.5-32.2)
[2022-01-03 00:45] LABS: Partial Thromboplastin Time 38.1 SECONDS (23.9-36.7)
--- NOTE | 2022-01-03 00:46 | PC.NURSE ---
Pt reports that his chest pain is 9/10, left-sided and radiating down the left arm. He also reports that he has hit his head against the bed rail twice while sleeping, so it has made his headache from the nitro worse. I have assisted patient into a more comfortable sleeping position, with pillows arranged to protect his head from the side-rail. Morphine has also been administered for pain, and a NTG patch is on left chest. Pt is currently listening to loud music and watching videos on his phone.
[2022-01-03] MEDS: heparin 5,000 unit/mL INJ 1 mL IV (01:07)
--- NOTE | 2022-01-03 01:27 | PC.NURSE ---
Pt resting quietly in bed having echocardiogram performed.
--- NOTE | 2022-01-03 02:22 | PC.NURSE ---
Pt complains of shortness of breath following echocardiogram. Oxygen applied at 2L nasal cannula. Pt immediately fell asleep afterwards.
--- NOTE | 2022-01-03 03:04 | PC.NURSE ---
Pt laying in bed talking in an agitated manner to his girl. Pt educated on relaxation techniques. Oxygen reapplied,as pt had removed. Pt agreeable to wearing oxygen.
[2022-01-03] MEDS: ondansetron 2 mg/ML SDV 2 mL 4 MG IVP (03:18)
[2022-01-03 04:36] LABS: Basophils % 0.3 %; Hematocrit 32.5 % (42.0-52.0); Hemoglobin 10.3 g/dL (11.7-16.6); Lymphocytes # 1.1 10^3/uL (0.8-4.8); Lymphocytes % 16.3 %; Mean Corpuscular HGB Conc 31.7 g/dL (30.0-36.0); Mean Corpuscular Hemoglobin 22.5 pg (28.0-34.0); Mean Corpuscular Volume 71.1 fl (80-94); Mean Platelet Volume 12.8 fL (7.4-10.4); Monocytes # 0.4 10^3/uL (0.2-0.9); Monocytes % 6.2 %; Neutrophils # 4.97 10^3/uL (1.8-7.7); Neutrophils % 76.6 %; Nucleated Red Blood Cells % 0 %; Platelet Count 278 10^3/cmm (130-400); Red Blood Count 4.57 10^6/uL (4.1-5.3); Red Cell Distribution Width 18.5 % (12.1-15.1); White Blood Count 6.5 10^3/uL (4.0-10.0)
--- NOTE | 2022-01-03 04:50 | PC.NURSE ---
Dr. Vines notified of pt's chest pain 03/30, like a semi-truck running over my chest. Pt received morphine within the past several minutes, NTG paste is in place. VS reported to Dr. Vines.
--- NOTE | 2022-01-03 04:57 | PC.NURSE ---
Pt resting quietly in bed with eyes closed. Respirations even and unlabored. Skin is dry and pink.
[2022-01-03 05:01] LABS: Alanine Aminotransferase 7 U/L (0-41); Albumin Level 4.3 g/dL (3.5-5.2); Alkaline Phosphatase 64 IU/L (40-130); Anion Gap 14.4 (5-19); Aspartate Amino Transferase 10 U/L (0-40); Blood Urea Nitrogen 16 mg/dL (6-20); Calcium 9.2 mg/dL (8.5-10.5); Carbon Dioxide 25 mmol/L (22-29); Chloride 106 mmol/L (98-107); Chol HDL Ratio 3.09 mg/dL (1.0-5.00); Cholesterol 133 mg/dL (0-200); Globulin 2.7 g/dL (1.3-4.6); Glucose 111 mg/dL (65-115); HDL Cholesterol 43 mg/dL (60-100); LDL Cholesterol Calculated 80 mg/dL (50-129); LDL HDL Ratio 1.86 RATIO (0.00-3.22); Osmolality Calculated 294 mOsm/kg (285-295); Potassium 4.4 mmol/L (3.5-5.1); Sodium 141 mmol/L (136-145); Total Bilirubin 0.3 mg/dL (0.15-1.2); Triglycerides 48 mg/dL (0-150)
[2022-01-03] MEDS: HYDROmorphone 1 mg/mL INJ 1 mL 0.4 MG IVP (05:06)
[2022-01-03] MEDS: ranolazine (12HR) 500 mg Tablet PO ×2 (05:08→08:16)
[2022-01-03 05:09] LABS: Slide Review Slide Review Perform
[2022-01-03 05:15] LABS: Estmated Average Glucose 88; Hemoglobin A1C 4.7 % (4.0-6.0)
--- NOTE | 2022-01-03 05:31 | PC.NURSE ---
Bilateral dorsalis pedis and posterior tibial pulses marked with marker.
--- NOTE | 2022-01-03 06:00 | USCV_ITS ---
Alonso June Age: 46 Gender: M : 1975 Exam Date: 01/03/2022 01:10 Ordering Phys: Maximo Pickett MD Technologist: Henrique Frye Exam Location: [facility] [place] Indication: nstemi BP: 113 / 58 HR: 52 Rhythm: Sinus Technical Quality: Adequate MEASUREMENTS (Male / Female) Normal Values 2D ECHO LV Diastolic Diameter PLAX 4.0 cm 4.2 - 5.9 / 3.9 - 5.3 cm LV Systolic Diameter PLAX 2.5 cm IVS Diastolic Thickness 1.5 cm 0.6 - 1.0 / 0.6 - 0.9 cm IVS Systolic Thickness 1.7 cm LVPW Diastolic Thickness 1.4 cm 0.6 - 1.0 / 0.6 - 0.9 cm LVPW Systolic Thickness 2.2 cm LVOT Diameter 2.0 cm LV Ejection Fraction 2D Teich 68.9 % LV Ejection Fraction MOD 2C 46.6 % LV Ejection Fraction 2C AL 50.0 % LA Diameter 3.5 cm LA Width 3.7 cm LA Height 5.1 cm RA Width 3.8 cm RA Height 4.2 cm Aorta at Sinotubular Diameter 2.6 cm IVC Diameter 1.7 cm M-MODE Aortic Annulus Diameter 3.0 cm LA Ao Ratio MM 1.3 MV E Point Septal Separation 0.9 cm DOPPLER AV Peak Velocity 123.2 cm/s LVOT Peak Velocity 77.0 cm/s AV Area Cont Eq vti 2.1 cm squared AV Area Cont Eq pk 1.9 cm squared MV Area PHT 2.8 cm squared Mitral E to A Ratio 1.1 MV E' Velocity 45.5 cm/s Mitral E to MV E' Ratio 7.9 Mitral E to LV E' Lateral Ratio 7.1 Mitral E to LV E' Septal Ratio 8.9 TR Peak Velocity 206.7 cm/s TR Peak Gradient 17.1 mmHg TR Mean Velocity 181.3 cm/s TR Mean Gradient 13.4 mmHg TR Velocity Time Integral 71.8 cm Right Atrial Pressure 3.0 mmHg Pulmonary Artery Systolic Pressu 20.1 mmHg PV Peak Velocity 95.0 cm/s FINDINGS Left Ventricle Normal left ventricular size. LV systolic function is normal with EF of 55-60%. No regional wall motion abnormalities. Right Ventricle The right ventricle is normal in size and function. Right Atrium The right atrium is normal in size. Left Atrium The left atrium is normal in size. Mitral Valve Structurally normal mitral valve without significant stenosis or prolapse. There is mild mitral regurgitation. Aortic Valve Structurally normal aortic valve without significant sclerosis or stenosis. There is moderate aortic regurgitation. Tricuspid Valve Structurally normal tricuspid valve without significant stenosis. Trace tricuspid regurgitation. Insufficient TR jet to calculate RVSP Pulmonic Valve Not well visualized Pericardium Normal pericardium without effusion. Aorta Normal ascending aorta dimension. IVC CONCLUSIONS LV systolic function is normal with EF 55 to 60% Mild mitral regurgitation Moderate aortic regurgitation Trace tricuspid regurgitation Compared to prior echocardiogram from 10/09/2021, no significant changes are seen Heath Pacheco MD (Electronically Signed) Final Date: 03 January 2022 12:39 S
[2022-01-03 06:05] LABS: Glucose Point of Care 98 mg/dL (70-110)
--- NOTE | 2022-01-03 07:13 | XACV_ITS ---
Exam Room: [facility] Ht: 170 cm Wt: 66 kg BSA: 1.77 m2 Gender: Male : 1975 Any Known Allergies: Other Exam Priority: Routine Procedure(s): Procedure Description: Diagnostic procedure Procedure Description: Left Heart Catheterization Procedure Description: Left ventriculography Procedure Description: Coronary Angiography Diagnostic Cath Status: Urgent Diagnostic Findings * No significant disease noted in the Left Main, Left Anterior Descending, Right, or Circumflex coronary arteries. Patent prior left main, LAD, diagonal and RCA stents. * Coronary angiography shows right dominance. Conclusions 1. No significant disease noted in the Left Main, Left Anterior Descending, Right, or Circumflex coronary arteries. Patent prior left main, LAD, diagonal and RCA stents. 2. Normal left ventricular systolic function. Ejection fraction of 65%. Recommendations * Aggressive risk factor modification. * Outpatient cardiology follow-up in 4 weeks. * Continue dual antiplatelet agents. Interventional RX Recommendation: medical therapy and/or counseling Diagnostic RX Recommendation: medical therapy and/or counseling Ventriculography Ejection Fraction: 65.0 % Pressures Phase:Rest AO : 134 / 64 ( 94 ) @ 11:37:00 AM 134 / 65 ( 95 ) @ 11:37:00 AM LV : 130 / -12 / 14 @ 11:36:00 AM 135 / -14 / 13 @ 11:37:00 AM 132 / -13 / 13 @ 11:37:00 AM Valves Phase:DefaultPhase AV : 0.0 @ 10:44:25 AM AV Mean Gradient: 0.0 @ 10:44:25 AM Clinical Evaluation EBL: 5mL-10mL Procedural Details Pre-Procedure Time Out. Identified patient by full name and date of as verbalized by the patient/guarantor. Does the consent match the physician's order: Yes. Accurate & Complete Informed Consent: Yes. Inpatient/Outpatient History & Physical on Chart: Yes. If H&P is completed, is and addenduem needed: No; If yes, is the addendum complete: N/A. Visualize and Verify Site with Patient/Guarantor: N/A. Relevant Radiology Images available: N/A. Pre-op teaching completed and patient verbalized understanding. The risks, benefits, and alternatives of sedation and/or procedure were discussed by physician. The patient agrees to continue. Procedure started. [facility] Clinical Fraility Score: 4: Vulnerable. Vehicle Sales Professional Indications:Worsening Angina, Nstemi. Chest Pain Symptom Assessment: Typical Angina Symptoms. Correct patient, site and procedure confirmed by cath team. Current diagnosis: NSTEMI. PERRLA. Strong, equal hand pain management nurse bilaterally. Lungs clear x 5 lobes. IV Site on Arrival: 20 gauge in the left anticubital. IV Fluids: 0.9% NaCl at KVO. 0 mL infused prior to open hearth laborer. Pre Procedural Pulses: bilateral posterior tibial was 2+. Pre Procedural Pulses: bilateral dorsalis pedis was 3+. Pre Procedural Pulses: bilateral radial was 3+. Oxygen started at 2liters/min via nasal canula. right groin was prepped with chloroprep then draped in the usual sterile fashion. Physician notified. Baseline sample Acquired. HR: 66 BPM. Physician arrived. Physician scrubbed in. Immediate Pre-Procedure Time Out. Correct Patient: Yes; Correct Procedure: Yes; Correct Site: Yes; Correct Patient Position: Yes; Correct Supplies: Yes; Dried Flammable Prep: Yes; Blood Products Available: N/A;. Lidocaine 1% infiltrated to the right groin. Arterial access obtained with micropuncture set. A 5 bruneian JL4 catheter in over wire. Catheter removed over the standard wire. A 5 bruneian JR4 catheter in over wire. Multiple views taken of right coronary artery. Catheter removed over the standard wire. A 5 bruneian JL3.5 catheter in over wire. Multiple views taken of left coronary artery. Catheter removed over the standard wire. A 5 bruneian Angled Pig catheter in over wire. EDP Sample taken: LV 130/-13,14; HR: 72 BPM; SpO2: 100%. LV gram performed in [place] @ 10 mL/second for a total of 30 mL. EDP Sample taken: LV 135/-15,13; HR: 78 BPM; SpO2: 100%. Pullback taken: LV 132/-13,13; AO 134/64(94); Mean: 0mmHg, Peak to Peak: 0mmHg, SEP: 9sec/min; HR: 78 BPM; SpO2: 100%. Catheter removed over the standard wire. A Right femoral angiogram was performed to determine safe placement of closure device. A Suture was successful obtaining hemostatsis at the Right Femoral artery insertion site. Sheath(s) sutured into position with 2-0 silk and sterile 4x4's and Op-site applied over the site. No oozing or signs and symptoms of hematoma noted. Arterial sheath flushed and connected to tranducer and pressure bag with heparinized saline. Post Procedure: Pulses reassessed and unchanged. PERRLA. Strong, equal hand pain management nurse bilaterally. No VTE prophylaxis required. Medication's Wasted: Heparin = 4000 units. Total IV fluids: 44 mL. Post-op diagnosis: Non-obstructive CAD. Complications: None. Estimated blood loss: 5mL-10mL. Responsiveness - Normal response to verbal stimuli; alert and oriented, PERRLA. Airway - Unaffected, no intervention required; spontaneous ventilation. Circulation: W/N/L, pulses unchanged. Nausea/Vomiting: N/A. Procedure completed. Patient transferred by bed to ICU. Access Site Site: Right Femoral artery Sheath Size: 6 Fr Hemostasis Method: Suture Hemostasis Success: Successful Procedure Medications Start: 10:08 AM Stop: 10:08 AM Medication: Solu-Medrol (methylprednisolone) Amount: 125 mg Route: I.V. Start: 10:09 AM Stop: 10:09 AM Medication: Versed Amount: 1 mg Start: 10:09 AM Stop: 10:09 AM Medication: Fentanyl Amount: 50 mcg Route: I.V. Start: 10:20 AM Stop: 10:20 AM Medication: Versed Amount: 1 mg Start: 10: AM Stop: 10:20 AM Medication: Fentanyl Amount: 50 mcg Route: I.V. I, the attending physician, have reviewed and verified all procedure medications. Yes, all medications given per verbal order History/Risk Factors Hypertension: Yes Dyslipidemia: Yes Peripheral Arterial Disease (PAD): No Myocardial Infarction (CA): No Obesity: No Renal Disease: No Tobacco Use: Former Prior Interventions PCI: Yes CABG: No Valve Surgery: No Report Signatures Finalized by Heath Pacheco MD on 01/13/2022 12:18 PM
[2022-01-03] MEDS: pantoprazole DR 40 mg Tablet PO (08:16)
[2022-01-03] MEDS: aspirin 81 mg EC Tablet PO (08:16)
--- NOTE | 2022-01-03 08:35 | PC.NURSE ---
pt resting quietly in bed texting on phone called nurse to bedside asked for pain medication gave morphine at this time no disrtess noted continues to text on phone ask what mediction i gave him explained morphine and he stated dilaudid works better for me .. alert oriented no deficeits noted
--- NOTE | 2022-01-03 08:53 | PC.NURSE ---
pt removed o2 and blood pressure cuff.. explained to pt if i am giving narcotics that we need to monitor vital signs agreed to put back on at this time.
--- NOTE | 2022-01-03 10:05 | PC.NURSE ---
pt in room to work with patient and was unable to lift left arm very well doctor in room and can move left arm and eventually able to lift all the way shoulder high . to slab depiler operator at this time
--- NOTE | 2022-01-03 10:09 | PC.OT ---
BEGAN EVAL ON 01/03 W/ PHYSICAL THERAPY; WAS IN PT'S ROOM FOR 17 MINUTES; PT GOING TO COMPOSITE LAYUP WORKER AND SESSION INTERRUPTED; ABLE TO GAIN SOME INFORMATION BUT NOT ENOUGH FOR A FULL AND COMPREHENSIVE EVALUATION W/ GOALS; WILL COMPLETE EVAL ON 01/04
--- NOTE | 2022-01-03 10:12 | W.PM.OPSUD ---
Surgery/Procedure H&P Update DATE OF PROCEDURE: January 03, 2022 DATE H&P PERFORMED: 01/02/22 H&P UPDATE INFORMATION: I have reviewed H&P completed within last 30 days, I have examined patient prior to procedure and No changes to prior documentation PREOP DIAGNOSIS: NSTEMI PRIMARY INDICATION FOR PROCEDURE: NSTEMI PLANNED PROCEDURE: Left heart cath with possible percutaneous coronary intervention PATIENT REASSESSED PRIOR TO SEDATION, WITH NO CHANGE NOTED: Yes PHYSICAL EXAM: alert, oriented x 3, clear to auscultation bilaterally and regular rate & rhythm AIRWAY EVAL/ANESTHESIA PLAN: ASA III, Monitored Anesthesia, Risks, benefits & alternatives of sedation and/or procedure discussed and Patient agrees to continue as planned ADDITIONAL INFORMATION: Possible percuteneous coronary intervention
--- NOTE | 2022-01-03 11:16 | PM.PN ---
Subjective Subjective: Patient underwent coronary angiogram that did not reveal any significant CAD. Prior stents were patent. Vitals/I&O/Wt Last Vital Signs Temp 97.9 F 01/03/22 00:32 Pulse 68 01/03/22 08:30 Resp 15 01/03/22 08:30 BP 137/82 01/03/22 08:00 Pulse Ox 98 01/03/22 08:30 01/02/22 01/03/22 01/03/22 22:59 06:59 14:59 Intake Total 101.31 / 601.31 70.421 / 671.731 Output Total 300 / 300 600 / 900 Balance -198.69 / 301.31 -529.579 / -228.269 Weight last 48 hrs Weight 140 lb Weight 142 lb 1.6 oz Weight 145 lb Physical Exam Narrative: GENERAL: Patient is alert, awake and oriented x3. [] NECK: No jugular vein distension. [] HEENT: No cyanosis. No icterus. No pallor. [] HEART: Regular S1 and S2. No murmur, rub or gallop. [] LUNGS: Clear to auscultate bilaterally. [] ABDOMEN: Soft, nontender and nondistended. Positive bowel sounds. No guarding, rebound or tenderness. [] CENTRAL NERVOUS SYSTEM: Grossly nonfocal. [] EXTREMITIES: Lower extremities with 1+ edema bilaterally. Pulses palpable in the lower extremities, both dorsalis pedis and posterior tibial. [] Data : 01/03/22 03:55 01/03/22 03:55 A&P Assessment and plan (1) Acute non-ST elevation myocardial infarction (NSTEMI): Status: Acute (2) Chest pain: Status: Inactive (3) CAD (coronary artery disease): Status: Acute (4) Benign essential HTN: Status: Acute (5) Diabetes: Plan Outpatient has presented with non-ST elevation LA. Coronary angiogram did not reveal significant stenosis. Prior stents are patent Continue current medications including aspirin and Plavix Thank you for involving us with care of this patient. Patient stable to be discharged from cardiology standpoint. Please call with questions. Attestations Medical Necessity Statement*: Care expected to cross 2 midnights Coding Level of Care Code Acute Electron Beam Welding Machine Operator for Marcelino Stephen Diagnoses Acute non-ST elevation myocardial infarction (NSTEMI) I21.4 Chest pain R07.9 CAD (coronary artery disease) I25.10 Benign essential HTN I10 Diabetes E11.9
[2022-01-03 11:42] LABS: Glucose Point of Care 95 mg/dL (70-110)
--- NOTE | 2022-01-03 11:57 | PC.NURSE ---
Did accucheck on patient - blood glucose was 95
[2022-01-03] MEDS: ARIPiprazole 10 mg Tablet 5 MG PO (12:12)
[2022-01-03] MEDS: escitalopram 10 mg Tablet PO (12:13)
[2022-01-03] MEDS: carvedilol 3.125 mg Tablet PO (12:13)
--- NOTE | 2022-01-03 12:17 | PC.SLP ---
Orders received, chart reviewed. Patient was not seen because he was NPO due to procedure in Dyeing Machine Feeder. Will continue to monitor and assess as appropriate.
[2022-01-03] MEDS: TRAMadol 50 mg Tablet PO (13:45)
--- NOTE | 2022-01-03 13:47 | PC.NURSE ---
asked pt about allergic to tramadol denies any problem taking it so verified and administered
--- NOTE | 2022-01-03 14:40 | P.PN_ITS ---
Subjective Subjective: Today morning patient seen at bedside. Overnight patient had few episodes of chest pain. Denies any chest pain on examination today. Has remained on heparin drip. His neurological examination has been inconsistent. As per the nurse patient has been sitting up in bed texting his friends. On e xamination at first he was not able to move his left arm but was able to shrug his shoulder. As per the nursing staff patient has been moving his arm before that. On visiting with him again 5 minutes after the first examination he was able to move his left arm and leg and shrug his shoulders Vitals/I&O/Wt Last Vital Signs Temp 97.9 F 01/03/22 00:32 Pulse 76 01/03/22 14:00 Resp 13 01/03/22 12:15 BP 173/141 01/03/22 12:15 Pulse Ox 99 01/03/22 12:00 01/02/22 01/03/22 01/03/22 22:59 06:59 14:59 Intake Total 101.31 / 601.31 70.421 / 671.731 200 / 200 Output Total 300 / 300 600 / 900 850 / 850 Balance -198.69 / 301.31 -529.579 / -228.269 -650 / -650 Weight last 48 hrs Weight 63.503 kg Weight 64.455 kg Weight 65.771 kg Physical Exam Narrative: General: No acute distress, AO x3, chronically ill-appearing, cachectic, disheveled HEENT: PERRLA, pupils bilaterally equal and reactive Chest: Normal vesicular breath sounds, no added sounds, equal good air entry bilaterally CVS: S1-S2 regular, no murmurs, no tachycardia, no gallops, no rubs Abdomen: Soft, nontender, no organomegaly, bowel sounds present Neuro: No focal deficits, no facial deformity, AO x3, power 5/5 in all limbs Data : 01/03/22 03:55 01/03/22 03:55 A&P Assessment and plan (1) Acute non-ST elevation myocardial infarction (NSTEMI): Status: Acute (2) CVA (cerebrovascular accident): Status: Acute (3) CAD (coronary artery disease): Status: Acute (4) Benign essential HTN: Status: Acute (5) Diabetes: Status: Acute (6) Former smoker: Status: Acute Plan 46-year-old with past medical history of CAD, post multiple PCI, history of CVA, history of tPA, history of leaving AGAINST MEDICAL ADVICE, alcoholic, current smoker presents to the ER with ongoing chest pain found to be non-ST elevation PR and later having symptoms concerning for stroke while being taken for cardiac catheterization and found to have normal CT head and CTA head and neck. Non-ST elevation PR: History of CAD and multiple PCI in the past. Cardiology on board. Plan for cardiac catheterization today. For now continue with heparin drip. Continue with aspirin, statin. Restart home dose of Coreg. Repeat echocardiogram. Stroke like symptoms: TIA versus functional. History of CVA and tPA in the past. Also has a history of leaving AGAINST MEDICAL ADVICE in the past as per chart. Patient seen through televisit by neurologist at [facility]. Recommended against tPA. No current symptoms. CT, CTA head and neck results appreciated. Echocardiogram as above. Telemetry. PT/OT/speech evaluation. Type 2 diabetes mellitus: Insulin sliding scale every before meals and at bedtime. Hypertension: Goal blood pressure less than 140/90 mmhg. Restart home dose of Coreg. Increase dose of Imdur to 90 mg daily. We will add blood pressure medication as per blood pressure charting. Chronic alcoholism: Watch for alcohol withdrawal. N.p.o. for now. Start on cardiac diabetic diet post cardiac catheterization. Heparin drip will suffice for DVT prophylaxis. Protonix for PUD prophylaxis. Continue with ICU care. Attestations Medical Necessity Statement*: Requires further hospitalization for management of non-ST elevation PR requiring cardiac catheterization in a patient with history of CAD, possible strokelike symptoms. Time Spent in Patient Care: Greater than 35 minutes Coding Level of Care Code Acute Doctor Of Audiology for Marcelino Stephen Diagnoses Acute non-ST elevation myocardial infarction (NSTEMI) I21.4 CVA (cerebrovascular accident) I63.9 CAD (coronary artery disease) I25.10 Benign essential HTN I10 Diabetes E11.9 Former smoker [id number]
[2022-01-03] MEDS: isosorbide mononitrate ER 60 mg Tablet 90 MG PO (16:10)
--- NOTE | 2022-01-03 16:23 | P.DS_ITS ---
Discharge Providers Date of Admission: 01/02/22 15:03 Date of Discharge: January 03, 2022 Attending Provider at Admission: Heath Pacheco M.D Attending Provider at Discharge: Maximo Pickett MD Primary Care Provider: Cecily Miller MD Diagnoses at Discharge Discharge Diagnosis (1) Acute non-ST elevation myocardial infarction (NSTEMI): Status: Acute (2) CVA (cerebrovascular accident): Status: Acute (3) CAD (coronary artery disease): Status: Acute Permanent problem details: 9stents (4) Benign essential HTN: Status: Acute (5) Diabetes: Status: Acute (6) Former smoker: Status: Acute Reason for Visit Reason for Visit: Chest Pain Hospital Course Hospital Course Alonso June is a 46 year old male with a PMH of ?multiple hospital admissions for chest pain, CVA treated with tPA when he left AGAINST MEDICAL ADVICE, current alcohol abuser, current smoker, CAD, history of multiple stents, last hospitalization at [facility] on 08/31/2009 for chest pain, cath report from August 12, 2021 showed left main, left anterior descending, diagonal and right posterior descending artery patent.? Stents in LAD, diagonal and right PDA were patent.? IFR was performed to the left main, distal LAD, left circumflex all found to be hemodynamically insignificant.? Does have small vessel CAD which is not amenable to PCI or CABG this should be treated medically. ? In addition he had another angiogram on 07/12/2021 left heart cath no new findings. Patient presents to the ER today with chest pain which started earlier today morning while he was walking at his home radiating to his arm associated with shortness of breath.? Patient states he was not having any chest pain yesterday on examination overdraft.? He said there has been no changes to his medications.? Symptoms today associated with mild dizziness and nausea.? Denies any syncope. Patient was found to be in non-ST elevation IN in the ER and was planned to go to the [facility] for cardiac catheterization due to ongoing chest pain.? He was started on heparin drip. When seen by me patient was complaining of mild chest pain on heparin drip which has been running for an hour and a half and was.? Being wheeled to the [facility].? On routine [facility] upon transfer to the procedure table he developed flaccid paralysis of left upper limb and lower limb.? Patient at start was alert oriented x3 during the whole event.? Code stroke was called and patient was being taken to CT scan for further evaluation and cardiac catheterization was aborted. Patient was seen by neurologist from [facility].? As per my conversation with ER physician neurologist at [facility] recommended against tPA given past history of leaving AGAINST MEDICAL ADVICE and current history of being on heparin drip for around 2 hours. On returning back from CT scan patient had spontaneous recovery and movement of his left side of his body.? Patient was continued on heparin drip as per recommendations from [facility] given ongoing non-ST elevation IN. Patient admitted to hospital further evaluation and management. Cardiology was consulted. Patient was monitored overnight for any neurological changes. His neurological examination has been inconsistent.? As per the nurse patient has been sitting up in bed texting his friends.? On examination at first he was not able to move his left arm but was able to shrug his shoulder.? As per the nursing staff patient has been moving his arm before that.? On visiting with him again 5 minutes after the first examination he was able to move his left arm and leg and shrug his shoulders. After noticing stable neurological signs overnight patient underwent cardiac catheterization on 01/03 which will be has been reported to me as patent stents(final report not present in the system). During hospitalization patient was found to have elevated blood pressures which could be the cause of his unstable angina. His antihypertensives were adjusted. Patient was advised for further admission for 24 more hours for further adjustment of antihypertensives and medical management. Patient was adamant of leaving and left AMA on 01/03. Adjusted medication was sent to his pharmacy. He is to increase his dose of Imdur to 90 mg and Coreg to 6.25 mg twice daily. He is to continue taking all his medications as before. He is encouraged to keep up with his appointments, alcohol and smoking abstinence. Physical Exam Narrative: General: No acute distress, AO x3, chronically ill-appearing, cachectic, disheveled HEENT: PERRLA, pupils bilaterally equal and reactive Chest: Normal vesicular breath sounds, no added sounds, equal good air entry bilaterally CVS: S1-S2 regular, no murmurs, no tachycardia, no gallops, no rubs Abdomen: Soft, nontender, no organomegaly, bowel sounds present Neuro: No focal deficits, no facial deformity, AO x3, power 5/5 in all limbs Discharge Data Studies Completed and Pending Completed Studies During Hospitalization Category Date Time Status CT head wo con* [id number] Stat Cat Scan 01/02/22 16:57 Completed CTA head neck [CT angio headneck* [id number]] Stat Cat Scan 01/02/22 16:57 Completed XR chest 1V portable [id number] Stat Exams 01/02/22 13:00 Completed CV. echo complete* [id number] Routine Ultrasound 01/03/22 06:00 Completed Pending at discharge Category Date Time Status [employer] request for service Routine Exams 01/02/22 14:49 Stop Req [employer] request for service Routine Exams 01/03/22 07:13 Ordered Complete Blood Count w/Auto AM LABS Lab 01/04/22 04:00 Ordered Comprehensive Metabolic Panel AM LABS Lab 01/04/22 04:00 Ordered Platelet Count Q2D Lab 01/04/22 04:00 Ordered Platelet Count Q2D Lab 01/06/22 04:00 Ordered Radiology Impressions Chest X-Ray 01/02/22 13:00 Impression: Negative chest. Head CT 01/02/22 16:57 IMPRESSION: 1. No acute abnormality of the brain. 2. Incidental/nonacute findings are listed in the report. ASSESSMENT: ASPECTS ([place] Stroke Program Early CT Score) Score is 10. Head/Neck CTA 01/02/22 16:57 IMPRESSION: 1. Stable mild atherosclerotic disease in the intracranial right and left internal carotid arteries. No occlusion, thrombosis, stenosis, extravasation, dissection, or aneurysm. 2. The right and left posteroinferior cerebellar arteries arise from the basilar artery. 3. The posterior communicating arteries are not visualized. The posterior communicating arteries may be congenitally absent, or may be too small for the resolution capabilities of this study. IMPRESSION: 1. Stable qvam-rm-xtrhzbvy sclerotic disease. No occlusion, thrombosis, extravasation, dissection, or aneurysm. 2. Stable 47% stenosis at the origin of the left internal carotid artery. 3. Stable 30% stenosis in the mid/distal left common carotid artery. 4. Stable 50% stenosis at the origin of the left vertebral artery. 5. Incidental/nonacute findings are listed in the report. 6. Incidental/nonacute findings are listed in the report. REFERENCES: NASCET CRITERIA. The degree of internal carotid artery stenosis is based on NASCET criteria. Normal is no stenosis. Mild is less than 50% stenosis. Moderate is 50-69% stenosis. Severe is 70% to 99% stenosis. Total occlusion is no detectable patent lumen. Laboratory Results WBC 6.5 10^3/uL (4.0-10.0) 01/03/22 03:55 RBC 4.57 10^6/uL (4.1-5.3) 01/03/22 03:55 Hgb 10.3 g/dL (11.7-16.6) L 01/03/22 03:55 Hct 32.5 % (42.0-52.0) L 01/03/22 03:55 MCV 71.1 fl (80-94) L 01/03/22 03:55 MCH 22.5 pg (28.0-34.0) L 01/03/22 03:55 MCHC 31.7 g/dL (30.0-36.0) 01/03/22 03:55 RDW 18.5 % (12.1-15.1) H 01/03/22 03:55 Plt Count 278 10^3/cmm (130-400) 01/03/22 03:55 MPV 12.8 fL (7.4-10.4) H 01/03/22 03:55 Neut % (Auto) 76.6 % 01/03/22 03:55 Lymph % (Auto) 16.3 % 01/03/22 03:55 [place] % (Auto) 6.2 % 01/03/22 03:55 Eos % (Auto) 0.0 % 01/03/22 03:55 Baso % (Auto) 0.3 % 01/03/22 03:55 Neut # (Auto) 4.97 10^3/uL (1.8-7.7) 01/03/22 03:55 Lymph # (Auto) 1.1 10^3/uL (0.8-4.8) 01/03/22 03:55 [place] # (Auto) 0.4 10^3/uL (0.2-0.9) 01/03/22 03:55 Eos # (Auto) 0.0 10^3/uL (0.0-0.8) 01/03/22 03:55 Baso # (Auto) 0.0 10^3/uL (0.0-0.1) 01/03/22 03:55 Nucleated RBC % (auto) 0 % 01/03/22 03:55 Nucleated RBCs # 0.0 /100WBC 01/03/22 03:55 PT 15.60 SECONDS (12.1-14.9) H 01/02/22 15:13 INR 1.21 (0.8-1.2) H 01/02/22 15:13 APTT 36.0 SECONDS (23.9-36.7) 01/03/22 11:05 Sodium 141 mmol/L (136-145) 01/03/22 03:55 Potassium 4.4 mmol/L (3.5-5.1) 01/03/22 03:55 Chloride 106 mmol/L (98-107) 01/03/22 03:55 Carbon Dioxide 25 mmol/L (22-29) 01/03/22 03:55 Anion Gap 14.4 (5-19) 01/03/22 03:55 BUN 16 mg/dL (6-20) 01/03/22 03:55 Creatinine 0.8 mg/dL (0.7-1.2) 01/03/22 03:55 GFR Calculation 105.0 mL/min (90-130) 01/03/22 03:55 Glucose 111 mg/dL (65-115) 01/03/22 03:55 POC Glucose 95 mg/dL (70-110) 01/03/22 11:35 Estimat Average Glucose 88 01/03/22 03:55 Hemoglobin A1c 4.7 % (4.0-6.0) 01/03/22 03:55 Calculated Osmolality 294 mOsm/kg (285-295) 01/03/22 03:55 Calcium 9.2 mg/dL (8.5-10.5) 01/03/22 03:55 Iron 26 ug/dL (59-158) L 01/02/22 15:13 TIBC 351 mcg/dl 01/02/22 15:13 % Saturation 7.4 % (20-50) L 01/02/22 15:13 Unsat Iron Binding 325 ug/dL (112-347) 01/02/22 15:13 Total Bilirubin 0.3 mg/dL (0.15-1.2) 01/03/22 03:55 AST 10 U/L (0-40) 01/03/22 03:55 ALT 7 U/L (0-41) 01/03/22 03:55 Alkaline Phosphatase 64 IU/L (40-130) 01/03/22 03:55 Troponin T Baseline 121 ng/L (0-15) H* 01/02/22 12:48 Troponin T 120 Minute 179.5 ng/L (0-15) H 01/02/22 15:13 Delta Troponin T 58.5 ABS# (0-10) H* 01/02/22 15:13 Troponin T Hi Sens 6Hr 164.6 ng/L (0-15) H 01/02/22 18:33 Troponin T Hi Sens 6Hr Delta 43.6 ng/L (0-12) H* 01/02/22 18:33 NT-Pro-B Natriuret Pep 346 pg/mL (0-125) H 01/02/22 12:48 Total Protein 7.0 g/dL (6.6-8.7) 01/03/22 03:55 Albumin 4.3 g/dL (3.5-5.2) 01/03/22 03:55 Globulin 2.7 g/dL (1.3-4.6) 01/03/22 03:55 Triglycerides 48 mg/dL (0-150) 01/03/22 03:55 Cholesterol 133 mg/dL (0-200) 01/03/22 03:55 LDL Cholesterol, Calc 80 mg/dL (50-129) 01/03/22 03:55 HDL Cholesterol 43 mg/dL (60-100) L 01/03/22 03:55 LDL/HDL Ratio 1.86 RATIO (0.00-3.22) 01/03/22 03:55 Cholesterol/HDL Ratio 3.09 mg/dL (1.0-5.00) 01/03/22 03:55 Lipase 36 U/L (13-60) 01/02/22 12:48 Vitamin B12 443 pg/mL (232-1245) 01/02/22 15:13 Folate 12.8 ng/mL (4.5-32.2) 01/02/22 23:25 TSH 0.27 uIU/mL (0.27-4.20) 01/02/22 15:13 Urine Color Yellow (Yellow) 01/02/22 13:24 Urine Appearance Clear (CLEAR) 01/02/22 13:24 Urine pH 5 (5-7) 01/02/22 13:24 Ur Specific [place] 1.015 (1.005-1.030) 01/02/22 13:24 Urine Protein Neg (Negative) 01/02/22 13:24 Urine Glucose (UA) Norm (Normal) 01/02/22 13:24 Urine Ketones Negative (Negative) 01/02/22 13:24 Urine Blood Neg (Negative) 01/02/22 13:24 Urine Nitrate Negative (Negative) 01/02/22 13:24 Urine Bilirubin Neg (Negative) 01/02/22 13:24 Urine Urobilinogen Norm mg/dL (Negative) 01/02/22 13:24 Ur Leukocyte Esterase Negative (Negative) 01/02/22 13:24 Urine Opiates Screen Positive ng/mL (Negative) H 01/02/22 13:24 Ur Barbiturates Screen Negative ng/mL (Negative) 01/02/22 13:24 Ur Phencyclidine Scrn Negative ng/mL (Negative) 01/02/22 13:24 Ur Amphetamines Screen Negative ng/mL (Negative) 01/02/22 13:24 U Benzodiazepines Scrn Negative ng/mL (Negative) 01/02/22 13:24 Urine Cocaine Screen Negative ng/mL (Negative) 01/02/22 13:24 U Marijuana (THC) Screen Negative ng/mL (Negative) 01/02/22 13:24 Ethyl Alcohol < 10 mg/dL (0-10) 01/02/22 18:33 Vitals Last Vital Signs Temp 97.9 F 01/03/22 16:00 Pulse 76 01/03/22 16:00 Resp 13 01/03/22 16:00 BP 173/141 01/03/22 16:00 Pulse Ox 99 01/03/22 16:00 Discharge Plan Discharge Patient Disposition: Left Against Medical Advice Condition: Stable Prescriptions: Continued clopidogrel 75 mg tablet 75 mg PO QAM Qty: 30 1RF twxdptvjsq-ctqnpnrpsroln-ywqf 50-325-40 mg tablet 2 tab PO BID PRN (Reason: Migraine Headache) 0RF Hold Instructions: interaction with aspirin albuterol sulfate [ProAir HFA] 90 mcg/actuation HFA aerosol inhaler 2 puff INHALATION Q4H PRN (Reason: Shortness Of Breath) 1 Days Qty: 30 0RF hydroxyzine HCl 25 mg tablet 25 mg PO BID PRN (Reason: nausea and vomiting) 0RF Novolog Flexpen U-100 Insulin 100 unit/mL (3 mL) insulin pen See Rx Instructions .ROUTE .COMPLEX Qty: 15 0RF Rx Instructions: Inject, 3 times daily, after meals, based on sliding scale provided escitalopram oxalate 10 mg Tablet 10 mg PO DAILY 30 Days Qty: 30 1RF aripiprazole 10 mg Tablet 5 mg PO DAILY 30 Days Qty: 30 1RF atorvastatin 40 mg tablet 40 mg PO BEDTIME 30 Days Qty: 30 1RF ondansetron HCl 4 mg tablet 4 mg PO Q8H PRN (Reason: Nausea And Vomiting) 30 Days Qty: 60 1RF aspirin 81 mg Tablet,Delayed Release (Dr/Ec) 81 mg PO QAM 30 Days Qty: 30 1RF pantoprazole [Protonix] 40 mg tablet,delayed release (DR/EC) 40 mg PO DAILY 30 Days Qty: 30 1RF nitroglycerin [Nitrostat] 0.4 mg Tablet, Sublingual 0.4 mg SUBLINGUAL Q5M PRN (Reason: Chest Pain) 30 Days Qty: 60 1RF Rx Instructions: do not exceed 3 doses per episode ranolazine 500 mg tablet extended release 12 hr 500 mg PO BID 30 Days Qty: 60 1RF methocarbamol 750 mg tablet 750 mg PO Q6H PRN (Reason: spasms) Qty: 20 0RF Changed carvedilol 3.125 mg Tablet 6.25 mg PO Q12H 30 Days Qty: 60 1RF isosorbide mononitrate 60 mg tablet extended release 24 hr 90 mg PO BID Qty: 60 0RF Lantus Solostar U-100 Insulin 100 unit/mL (3 mL) insulin pen 5 unit SUBCUT BEDTIME Qty: 15 0RF Referrals: Cecily Miller MD [Primary Care Provider] - Patient Instructions: Opioid Safety Discharge Attestations Time Spent in Discharge Care*: greater than 30 min Quality Metrics Clinical Quality Measures [ No reported AMI, CVA or VTE this stay] Coding Level of Care Code Acute Chg FW DC note Diagnoses Acute non-ST elevation myocardial infarction (NSTEMI) I21.4 CVA (cerebrovascular accident) I63.9 CAD (coronary artery disease) I25.10 Benign essential HTN I10 Diabetes E11.9 Former smoker Z87.891
[2022-01-03 16:29] LABS: Glucose Point of Care 159 mg/dL (70-110)
--- NOTE | 2022-01-03 16:43 | PC.NURSE ---
pt been restless all day requesting to leave ama .. have encouraged to stay until relative safe to bend right leg post cardiac cath now sitting up on side of bed requesting to to leave ama... doctor sent rx to pharmacy
--- NOTE | 2022-01-04 07:43 | PC.OT ---
UNABLE TO COMPLETE EVAL D/T PT DISCHARGE
== END 2022-01-03 17:56 | disposition left against medical advice (07) | DRG 280 ==
LOC: ER 15:01 → MEDSURG 16:25 → ICU 19:02
PROVIDERS: Emergency Medicine; Student in an Organized Health Care Education/Training Program; Admitting Provider Internal Medicine; Emergency Provider Emergency Medicine; PCP Internal Medicine; Visit Provider Student in an Organized Health Care Education/Training Program
DX: I21.4 Non-ST elevation (NSTEMI) myocardial infarction (principal); I63.9 Cerebral infarction, unspecified; G81.94 Hemiplegia, unspecified affecting left nondominant side; Z53.29 Procedure and treatment not carried out because of patient's decision for other reasons; I25.10 Atherosclerotic heart disease of native coronary artery without angina pectoris; Z95.5 Presence of coronary angioplasty implant and graft; I10 Essential (primary) hypertension; E11.9 Type 2 diabetes mellitus without complications; Z87.891 Personal history of nicotine dependence; Z79.02 Long term (current) use of antithrombotics/antiplatelets; Z79.51 Long term (current) use of inhaled steroids; Z79.4 Long term (current) use of insulin; Z79.82 Long term (current) use of aspirin; R29.700 NIHSS score 0; F10.20 Alcohol dependence, uncomplicated
CPT/HCPCS: 36415; 36416; 70450; 70496; 70498; 71045; 80053; 80061; 80306; 80307; 81003; 82607; 82746; 82962; 83036; 83540; 83550; 83690; 83880; 84443; 84484; 85025; 85610; 85730; 93005; 93306; 94664; 94760; 96365; 96375; 97161; 99291; J1170; J1200; J1644; J2250; J2270; J2405; J2920; J2930; J3010; J3490; J7030; J7040; Q9967

== ENCOUNTER 2022-01-06 01:52 | Emergency (ER) | payer OTHER, MEDICAID, SELFPAY ==
[2022-01-06 01:57] VITALS: BP 120/77; PULSE 80; RESP 18; TEMP 36.8; O2SAT 98; BMI 22.6
--- NOTE | 2022-01-06 01:58 | ECG_ITS ---
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 Measurements Intervals [place] Rate: 83 P: 64 ME: 149 QRS: 74 QRSD: 82 T: 71 QT: 331 QTc: 391 Interpretive Statements SINUS RHYTHM MODERATE VOLTAGE CRITERIA FOR LVH, CONSIDER NORMAL VARIANT [MEETS CRITERIA IN ONE OF: R(aVL), S(V1), R(V5), R(V5/V6)+S(V1)] Compared to ECG 01/02/2022 19:01:59 Sinus bradycardia no longer present Sinus arrhythmia no longer present Electronically Signed On 01-06-2022 20:50:08 CDT by Anatoliy Jean Baptiste M.D. [id number]
--- NOTE | 2022-01-06 02:04 | XRR_ITS ---
PROCEDURE INFORMATION: Exam: XR Chest Exam date and time: 01/06/2022 2:13 AM Age: 46 years old Clinical indication: Chest pressure; Prior surgery; Surgery type: Cardiac stents; Patient HX: C/O chest pain. Had negative heart cath on 01/02/2022. ; Additional info: Cp TECHNIQUE: Imaging protocol: Radiologic exam of the chest. Views: 1 view. COMPARISON: CR XR chest 1V portable [id number] 01/02/2022 1:15 PM FINDINGS: Tubes, catheters and devices: EKG monitoring leads overlie the thoracic wall. Lungs: There is no evidence of focal pulmonary consolidation. Pleural spaces: No pleural effusion or pneumothorax. Heart/Mediastinum: Normal in size. Bones/joints: No acute fracture is identified. XR/XR chest 1V portable [id number] IMPRESSION: No acute findings.
--- NOTE | 2022-01-06 02:17 | W.ED.CHESTPA ---
HPI - Chest Pain General: Chief Complaint: Chest Pain Stated Complaint: headache, chest pain, sore throat Time Seen by Provider: 01/06/22 01:54 Source: patient Mode of arrival: ambulatory Limitations: no limitations History of Present Illness: 46-year-old male who is very well-known to the ER has been here multiple times. Patient had recently been admitted had a cardiac cath 3 days ago that was negative. He states that since being discharged he has had cough nausea vomiting sore throat and is concerned that he may have COVID. He states he is got some burning in his chest with his cough but denies any chest pain currently. He denies any worsening proving factors denies any fevers. Associated symptoms: Reports nausea and vomiting Review of Systems Const: Reports: body aches Eyes: Denies: blurry vision or eye discomfort ENMT: Reports: throat pain Card: Denies: chest pain Resp: Reports: non-productive cough GI: Reports: nausea and vomiting : Denies: dysuria Musc: Denies: neck pain or back pain Skin/Breast: Denies: rash Neuro: Denies: headache(s) Psych: Denies: depression Melquiades/Lymph: Denies: easy bruising All/Imm: Denies: urticaria PFSH ED PFSH: Medical History Angina pectoris, unstable Atherosclerotic heart disease of [place] coronary artery with unstable angina pectoris Benign essential HTN CAD (coronary artery disease) 9stents Chest pain CVA (cerebrovascular accident) Diabetes Dyslipidemia (high LDL; low HDL) Former smoker HTN (hypertension) Surgical History History of appendectomy Family History Other No pertinent family history Social History Smoking and tobacco status: former smoker Alcohol intake: never Housing: House Physical Exam Const: COMMON NORMALS: no acute distress, patient oriented x3 and healthy appearing HENMT: COMMON NORMALS: normocephalic and atraumatic HEAD & SCALP: normocephalic and atraumatic Eye: COMMON NORMALS: Equal, round and reactive pupils present and EOMs intact bilaterally PUPIL: Yes Equal, round and reactive pupils present Neck/C-Spine: COMMON NORMALS: full ROM and supple Chest: COMMONS NORMALS: normal inspection of the chest and normal palpation of entire chest wall Resp: COMMON NORMALS: normal respiratory effort, No retractions, No use of accessory muscles and clear to auscultation bilaterally AUSCULTATION: clear to auscultation bilaterally Cardio: COMMON NORMALS: regular rate, regular rhythm and No murmurs present (Cardio) RATE: regular rate RHYTHM: regular rhythm GI: COMMON NORMALS: Normal to inspection, nondistended, normoactive bowel sounds present, Soft to palpation, non-tender and no masses PALPATION: Yes Soft to palpation Extremity: COMMON NORMALS: normal to inspection and full ROM Neuro: COMMON NORMALS: patient oriented x3, moves all extremities and no focal motor deficits Psych: COMMON NORMALS: mental status grossly normal, Normal thought process present and cooperative THOUGHT PROCESS: Normal thought process present Skin: COMMON NORMALS: no rashes or lesions noted and no wounds GENERAL SKIN EXAM: no rashes or lesions noted Course Vital Signs: Vital signs: Vital Signs Temperature 98.2 F 01/06/22 01:57 Pulse Rate 85 01/06/22 02:30 Respiratory Rate 21 H 01/06/22 02:30 Blood Pressure 107/51 01/06/22 02:30 Pulse Oximetry 95 01/06/22 02:30 MDM - Chest Pain Medical Decision Making Patient presents here with cough and vomiting consistent likely viral syndrome his EKG is normal here he had a heart cath 3 days ago was normal no signs of cardiac symptoms here is COVID-negative he stable for discharge he is felt PCP and return if worsening. Lab Data Laboratory Results SARS-CoV-2 Ag (Rapid) Negative (Negative) 01/06/22 02:20 EKG Data EKG 1: I personally reviewed and interpreted this EKG as follows: EKG interpretation date: 01/06/22 EKG interpretation time: 02:03 Interpretation: nsr hr [address] or t wave abnormalities qrs 82 qtc 371 Discharge Plan Discharge Patient Disposition: Home Clinical Impression: Vomiting Qualifiers: Vomiting type: unspecified Nausea presence: with nausea Qualified Code(s): R11.2 - Nausea with vomiting, unspecified Condition: Stable Prescriptions: New ondansetron 4 mg tablet,disintegrating 4 mg PO Q6H PRN (Reason: nausea and vomiting) Qty: 14 0RF No Action clopidogrel 75 mg tablet 75 mg PO QAM Qty: 30 1RF vtctqtwjvz-bnoozetworhbp-guqk 50-325-40 mg tablet 2 tab PO BID PRN (Reason: Migraine Headache) 0RF Hold Instructions: interaction with aspirin albuterol sulfate [ProAir HFA] 90 mcg/actuation HFA aerosol inhaler 2 puff INHALATION Q4H PRN (Reason: Shortness Of Breath) 1 Days Qty: 30 0RF hydroxyzine HCl 25 mg tablet 25 mg PO BID PRN (Reason: nausea and vomiting) 0RF carvedilol 3.125 mg Tablet 6.25 mg PO Q12H 30 Days Qty: 60 1RF isosorbide mononitrate 60 mg tablet extended release 24 hr 90 mg PO BID Qty: 60 0RF Lantus Solostar U-100 Insulin 100 unit/mL (3 mL) insulin pen 5 unit SUBCUT BEDTIME Qty: 15 0RF Novolog Flexpen U-100 Insulin 100 unit/mL (3 mL) insulin pen See Rx Instructions .ROUTE .COMPLEX Qty: 15 0RF Rx Instructions: Inject, 3 times daily, after meals, based on sliding scale provided escitalopram oxalate 10 mg Tablet 10 mg PO DAILY 30 Days Qty: 30 1RF aripiprazole 10 mg Tablet 5 mg PO DAILY 30 Days Qty: 30 1RF atorvastatin 40 mg tablet 40 mg PO BEDTIME 30 Days Qty: 30 1RF ondansetron HCl 4 mg tablet 4 mg PO Q8H PRN (Reason: Nausea And Vomiting) 30 Days Qty: 60 1RF aspirin 81 mg Tablet,Delayed Release (Dr/Ec) 81 mg PO QAM 30 Days Qty: 30 1RF pantoprazole [Protonix] 40 mg tablet,delayed release (DR/EC) 40 mg PO DAILY 30 Days Qty: 30 1RF nitroglycerin [Nitrostat] 0.4 mg Tablet, Sublingual 0.4 mg SUBLINGUAL Q5M PRN (Reason: Chest Pain) 30 Days Qty: 60 1RF Rx Instructions: do not exceed 3 doses per episode ranolazine 500 mg tablet extended release 12 hr 500 mg PO BID 30 Days Qty: 60 1RF methocarbamol 750 mg tablet 750 mg PO Q6H PRN (Reason: spasms) Qty: 20 0RF Discharge Orders: Discharge ED (Routine); Ordered 01/06/22 Ordered By: Jb Jaime Referrals: Cecily Miller MD [Primary Care Provider] - Discharge Diet: Advance as tolerated Discharge Activity: Resume usual activity Patient Instructions: Acute Nausea and Vomiting (ED) Coding Level of Care Code ED Medical Office Representative for Chg Fwd Exam Comprehensive
[2022-01-06 02:30] VITALS: BP 107/51; PULSE 85; RESP 21; O2SAT 95
[2022-01-06] MEDS: ondansetron 4 MG Tablet PO (02:30)
[2022-01-06 02:52] LABS: SARS Covid-2 Antigen Negative (Negative)
[2022-01-06 03:00] VITALS: BP 159/75; RESP 16; O2SAT 93
[2022-01-06 03:02] VITALS: BP 159/75; RESP 16; O2SAT 93
== END 2022-01-06 03:05 | disposition home or self-care (01) ==
PROVIDERS: Emergency Provider Emergency Medicine; PCP Internal Medicine
DX: R11.2 Nausea with vomiting, unspecified (principal); Z79.02 Long term (current) use of antithrombotics/antiplatelets; Z79.82 Long term (current) use of aspirin; Z79.4 Long term (current) use of insulin; I25.10 Atherosclerotic heart disease of native coronary artery without angina pectoris; E11.9 Type 2 diabetes mellitus without complications; I10 Essential (primary) hypertension; E78.5 Hyperlipidemia, unspecified; Z86.73 Personal history of transient ischemic attack (TIA), and cerebral infarction without residual deficits; Z87.891 Personal history of nicotine dependence; Z20.822 Contact with and (suspected) exposure to COVID-19
CPT/HCPCS: 71045; 87426; 93005; 99285; Q0162

== ENCOUNTER 2022-01-07 11:41 | Emergency (ER) | payer OTHER, MEDICAID, SELFPAY ==
--- NOTE | 2022-01-07 11:45 | ECG_ITS ---
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 Measurements Intervals [place] Rate: 89 P: 50 GA: 137 QRS: 63 QRSD: 83 T: 55 QT: 313 QTc: 381 Interpretive Statements SINUS RHYTHM MODERATE VOLTAGE CRITERIA FOR LVH, CONSIDER NORMAL VARIANT [MEETS CRITERIA IN ONE OF: R(aVL), S(V1), R(V5), R(V5/V6)+S(V1)] Compared to ECG 01/06/2022 02:03:08 No significant changes Electronically Signed On 01-07-2022 16:29:09 CDT by Heath Pacheco M.D. [id number]
[2022-01-07 12:07] VITALS: BP 124/74; PULSE 90; O2SAT 96
--- NOTE | 2022-01-07 12:16 | XR_ITS ---
WS: [id number] XR chest 1V portable [id number] REASON FOR EXAM: dyspnea/cough FINDINGS: The chest is unchanged compared to previous examination of 01/06/2022. The heart and mediastinum are within normal limits. No acute pulmonary parenchymal or pleural abnormality is noted. XR/XR chest 1V portable [id number] IMPRESSION: No acute chest abnormality identified.
[2022-01-07 12:24] LABS: Basophils % 0.3 %; Eosinophils # 0.1 10^3/uL (0.0-0.8); Eosinophils % 1.1 %; Hematocrit 36.1 % (42.0-52.0); Hemoglobin 11.5 g/dL (11.7-16.6); Lymphocytes # 0.8 10^3/uL (0.8-4.8); Lymphocytes % 11.6 %; Mean Corpuscular HGB Conc 31.9 g/dL (30.0-36.0); Mean Corpuscular Hemoglobin 22.8 pg (28.0-34.0); Mean Corpuscular Volume 71.6 fl (80-94); Mean Platelet Volume 12.6 fL (7.4-10.4); Monocytes # 1.2 10^3/uL (0.2-0.9); Monocytes % 16.8 %; Neutrophils # 4.97 10^3/uL (1.8-7.7); Neutrophils % 69.8 %; Nucleated Red Blood Cells % 0 %; Platelet Count 263 10^3/cmm (130-400); Red Blood Count 5.04 10^6/uL (4.1-5.3); Red Cell Distribution Width 19.1 % (12.1-15.1); White Blood Count 7.1 10^3/uL (4.0-10.0)
--- NOTE | 2022-01-07 12:32 | ED_ITS ---
HPI - Chest Pain General: Chief Complaint: Chest Pain Stated Complaint: CHEST PAIN Time Seen by Provider: 01/07/22 11:42 Source: patient Mode of arrival: EMS History of Present Illness: 46-year-old male with a known history of coronary disease comes in complaining of chest pain. He had 324 of aspirin and 2 nitro in route. Chest pain began while he breath. Patient has had 4 angiograms in the last 6 months including one within the last month that was negative for any acute coronary artery disease. He also has had multiple CTAs for chest pain, and CT head and neck and CTs of the head for evaluation of strokelike symptoms a ll of which have been negative. MD complaint: chest pain Pertinent past history: coronary artery disease Onset (ago): hour(s) Timing of current episode: episodic Prior episodes: Yes Onset: during rest Pain location: left chest Pain radiation: none Severity: mild Quality: tightness, aching and heaviness Relieving factors: nothing Exacerbating factors: nothing Associated symptoms: Reports fever(s); Deny abdominal pain, diaphoresis, dyspnea, leg edema, nausea, palpitations, sense of impending doom, syncope or vomiting Treatment prior to arrival: none Risk Factors: Coronary artery disease risk factors: hypertension Review of Systems Const: Reports: fever(s), chills, fatigue and malaise; Denies: diaphoresis ENMT: Denies: throat pain, ear or mastoid pain, nasal discharge or nasal congestion Card: Reports: chest pain; Denies: palpitations, irregular heart rhythm, edema or syncope Resp: Reports: non-productive cough; Denies: dyspnea, productive cough or wheezing GI: Denies: abdominal pain, nausea or vomiting : Denies: flank pain, difficulty urinating, dysuria, urinary frequency or urinary urgency Skin/Breast: Denies: rash or pruritus PFSH ED PFSH: Medical History Angina pectoris, unstable Atherosclerotic heart disease of [place] coronary artery with unstable angina pectoris Benign essential HTN CAD (coronary artery disease) 9stents Chest pain CVA (cerebrovascular accident) Diabetes Dyslipidemia (high LDL; low HDL) Former smoker HTN (hypertension) Surgical History History of appendectomy Family History Other No pertinent family history Social History Smoking and tobacco status: former smoker Alcohol intake: never Housing: House Physical Exam Const: GENERAL APPEARANCE: cooperative and comfortable ORIENTATION/CONSCIOUSNESS: Yes awake, Yes oriented to person, Yes oriented to pl [address]ian[address] and Yes oriented to time HENMT: COMMON NORMALS: normocephalic, atraumatic and hearing grossly normal bilaterally HEAD & SCALP: normocephalic and atraumatic Eye: COMMON NORMALS: Equal, round and reactive pupils present, EOMs intact bilaterally, conjunctivae normal and no scleral icterus CONJUNCTIVA: Yes conjunctivae normal PUPIL: Yes Equal, round and reactive pupils present Neck/C-Spine: COMMON NORMALS: full ROM, no lymphadenopathy, supple and no JVD Lymph: LYMPHATIC: no lymphadenopathy noted and no lymphedema noted Resp: COMMON NORMALS: normal respiratory effort, No retractions, No use of accessory muscles and clear to auscultation bilaterally AUSCULTATION: clear to auscultation bilaterally Cardio: COMMON NORMALS: no JVD, regular rate, regular rhythm and No murmurs present (Cardio) RATE: regular rate RHYTHM: regular rhythm GI: COMMON NORMALS: Soft to palpation and No hepatosplenomegaly present AUSCULTATION: Yes normoactive bowel sounds PALPATION: Yes Soft to palpation, No Tenderness to palpation present (GI), No Guarding due to palpation present (GI) and Yes No hepatosplenomegaly present Extremity: COMMON NORMALS: normal to inspection, capillary refill normal, no clubbing, cyanosis or edema, no calf tenderness and no pedal edema Neuro: SENSORIUM/ORIENTATION: Yes oriented to person, Yes oriented to place and Yes oriented to time Skin: COMMON NORMALS: no rashes or lesions noted GENERAL SKIN EXAM: no rashes or lesions noted Course Vital Signs: Vital signs: Vital Signs Temperature 98.2 F 01/07/22 15:12 Pulse Rate 89 01/07/22 15:12 Respiratory Rate 16 01/07/22 15:12 Blood Pressure 149/91 01/07/22 15:12 Pulse Oximetry 98 01/07/22 15:12 MDM - Chest Pain Medical Decision Making Troponins negative. EKG is unremarkable. Patient has had 4 angiograms in the last 6 months all of which was negative including 1 within the last few week. Unfortunately also had a positive delta troponin recently. He is currently negative and he is now asymptomatic we will discharge him home and follow-up with his primary care doctor. Medical Records I reviewed the patient's medical records. Lab Data I reviewed the patient's lab results. : 01/07/22 11:30 01/07/22 11:30 Radiology Impressions Chest X-Ray 01/07/22 12:16 IMPRESSION: No acute chest abnormality identified. Laboratory Results WBC 7.1 10^3/uL (4.0-10.0) 01/07/22 11:30 RBC 5.04 10^6/uL (4.1-5.3) 01/07/22 11:30 Hgb 11.5 g/dL (11.7-16.6) L 01/07/22 11:30 Hct 36.1 % (42.0-52.0) L 01/07/22 11:30 MCV 71.6 fl (80-94) L 01/07/22 11:30 MCH 22.8 pg (28.0-34.0) L 01/07/22 11:30 MCHC 31.9 g/dL (30.0-36.0) 01/07/22 11:30 RDW 19.1 % (12.1-15.1) H 01/07/22 11:30 Plt Count 263 10^3/cmm (130-400) 01/07/22 11:30 MPV 12.6 fL (7.4-10.4) H 01/07/22 11:30 Neut % (Auto) 69.8 % 01/07/22 11:30 Lymph % (Auto) 11.6 % 01/07/22 11:30 [place] % (Auto) 16.8 % 01/07/22 11:30 Eos % (Auto) 1.1 % 01/07/22 11:30 Baso % (Auto) 0.3 % 01/07/22 11:30 Neut # (Auto) 4.97 10^3/uL (1.8-7.7) 01/07/22 11:30 Lymph # (Auto) 0.8 10^3/uL (0.8-4.8) 01/07/22 11:30 [place] # (Auto) 1.2 10^3/uL (0.2-0.9) H 01/07/22 11:30 Eos # (Auto) 0.1 10^3/uL (0.0-0.8) 01/07/22 11:30 Baso # (Auto) 0.0 10^3/uL (0.0-0.1) 01/07/22 11:30 Nucleated RBC % (auto) 0 % 01/07/22 11:30 Nucleated RBCs # 0.0 /100WBC 01/07/22 11:30 Sodium 133 mmol/L (136-145) L 01/07/22 11:30 Potassium 3.5 mmol/L (3.5-5.1) 01/07/22 11:30 Chloride 98 mmol/L (98-107) 01/07/22 11:30 Carbon Dioxide 23 mmol/L (22-29) 01/07/22 11:30 Anion Gap 15.5 (5-19) 01/07/22 11:30 BUN 13 mg/dL (6-20) 01/07/22 11:30 Creatinine 0.9 mg/dL (0.7-1.2) 01/07/22 11:30 GFR Calculation 91.7 mL/min (90-130) 01/07/22 11:30 Glucose 105 mg/dL (65-115) 01/07/22 11:30 Calculated Osmolality 276 mOsm/kg (285-295) L 01/07/22 11:30 Calcium 9.3 mg/dL (8.5-10.5) 01/07/22 11:30 Total Bilirubin 0.3 mg/dL (0.15-1.2) 01/07/22 11:30 AST 8 U/L (0-40) 01/07/22 11:30 ALT 6 U/L (0-41) 01/07/22 11:30 Alkaline Phosphatase 71 IU/L (40-130) 01/07/22 11:30 Troponin T Baseline 67 ng/L (0-15) H 01/07/22 11:30 Troponin T 120 Minute 64.79 ng/L (0-15) H 01/07/22 13:30 Delta Troponin T -2.21 ABS# (0-10) L 01/07/22 13:30 Total Protein 7.6 g/dL (6.6-8.7) 01/07/22 11:30 Albumin 4.8 g/dL (3.5-5.2) 01/07/22 11:30 Globulin 2.8 g/dL (1.3-4.6) 01/07/22 11:30 Discharge Plan Discharge Patient Disposition: Home Clinical Impression: Atypical chest pain, Headache Condition: Stable Prescriptions: No Action clopidogrel 75 mg tablet 75 mg PO QAM Qty: 30 1RF hjhnjeswfl-lwvghebnrwymr-jhgt 50-325-40 mg tablet 2 tab PO BID PRN (Reason: Migraine Headache) 0RF Hold Instructions: interaction with aspirin albuterol sulfate [ProAir HFA] 90 mcg/actuation HFA aerosol inhaler 2 puff INHALATION Q4H PRN (Reason: Shortness Of Breath) 1 Days Qty: 30 0RF hydroxyzine HCl 25 mg tablet 25 mg PO BID PRN (Reason: nausea and vomiting) 0RF carvedilol 3.125 mg Tablet 6.25 mg PO Q12H 30 Days Qty: 60 1RF isosorbide mononitrate 60 mg tablet extended release 24 hr 90 mg PO BID Qty: 60 0RF Lantus Solostar U-100 Insulin 100 unit/mL (3 mL) insulin pen 5 unit SUBCUT BEDTIME Qty: 15 0RF Novolog Flexpen U-100 Insulin 100 unit/mL (3 mL) insulin pen See Rx Instructions .ROUTE .COMPLEX Qty: 15 0RF Rx Instructions: Inject, 3 times daily, after meals, based on sliding scale provided escitalopram oxalate 10 mg Tablet 10 mg PO DAILY 30 Days Qty: 30 1RF aripiprazole 10 mg Tablet 5 mg PO DAILY 30 Days Qty: 30 1RF atorvastatin 40 mg tablet 40 mg PO BEDTIME 30 Days Qty: 30 1RF ondansetron HCl 4 mg tablet 4 mg PO Q8H PRN (Reason: Nausea And Vomiting) 30 Days Qty: 60 1RF aspirin 81 mg Tablet,Delayed Release (Dr/Ec) 81 mg PO QAM 30 Days Qty: 30 1RF pantoprazole [Protonix] 40 mg tablet,delayed release (DR/EC) 40 mg PO DAILY 30 Days Qty: 30 1RF nitroglycerin [Nitrostat] 0.4 mg Tablet, Sublingual 0.4 mg SUBLINGUAL Q5M PRN (Reason: Chest Pain) 30 Days Qty: 60 1RF Rx Instructions: do not exceed 3 doses per episode ranolazine 500 mg tablet extended release 12 hr 500 mg PO BID 30 Days Qty: 60 1RF methocarbamol 750 mg tablet 750 mg PO Q6H PRN (Reason: spasms) Qty: 20 0RF ondansetron 4 mg tablet,disintegrating 4 mg PO Q6H PRN (Reason: nausea and vomiting) Qty: 14 0RF Discharge Orders: Discharge ED (Routine); Ordered 01/07/22 Ordered By: Kam Martinez Referrals: Cecily Miller MD [Primary Care Provider] - Discharge Diet: Usual diet Discharge Activity: Increase activity as tolerated Coding Level of Care Code ED Milk Deliverer for Chg Fwd Exam Comprehensive
[2022-01-07 13:03] LABS: Troponin(5th) Baseline 67 ng/L (0-15)
[2022-01-07 13:06] LABS: Alanine Aminotransferase 6 U/L (0-41); Albumin Level 4.8 g/dL (3.5-5.2); Alkaline Phosphatase 71 IU/L (40-130); Anion Gap 15.5 (5-19); Aspartate Amino Transferase 8 U/L (0-40); Blood Urea Nitrogen 13 mg/dL (6-20); Calcium 9.3 mg/dL (8.5-10.5); Carbon Dioxide 23 mmol/L (22-29); Chloride 98 mmol/L (98-107); Globulin 2.8 g/dL (1.3-4.6); Glomerular Filtration Rate 91.7 mL/min (90-130); Glucose 105 mg/dL (65-115); Osmolality Calculated 276 mOsm/kg (285-295); Potassium 3.5 mmol/L (3.5-5.1); Sodium 133 mmol/L (136-145); Total Bilirubin 0.3 mg/dL (0.15-1.2); Total Protein 7.6 g/dL (6.6-8.7)
--- NOTE | 2022-01-07 13:45 | ECG_ITS ---
[facility] Test Date: 2022-01-07 Pat Name: Alonso June Department: Room: Gender: Male Legal Administrator: : 1975 Requested By: Kam Phillips Order Number: [id number] Janel MD: Heath Pacheco M.D. Measurements Intervals [place] Rate: 82 P: 75 SD: 152 QRS: 78 QRSD: 87 T: 70 QT: 339 QTc: 397 Interpretive Statements SINUS RHYTHM Compared to ECG 01/07/2022 12:00:37 No significant changes Electronically Signed On 01-07-2022 16:33:16 CDT by Heath Pacheco M.D. [email or web address] biloxiSynthesioaultman orrville hospitalWOO Sports/store/OM/[id number]
[2022-01-07 15:12] VITALS: BP 149/91; PULSE 89; RESP 16; TEMP 36.8; O2SAT 98
[2022-01-07 15:12] LABS: Troponin 5 2HR 64.79 ng/L (0-15)
[2022-01-07 15:15] LABS: Troponin 5 2HR Delta -2.21 ABS# (0-10)
== END 2022-01-07 15:58 | disposition home or self-care (01) ==
PROVIDERS: Emergency Provider Family Medicine; PCP Internal Medicine
DX: R07.89 Other chest pain (principal); R51.9 Headache, unspecified; Z79.02 Long term (current) use of antithrombotics/antiplatelets; Z79.82 Long term (current) use of aspirin; Z79.4 Long term (current) use of insulin; I25.10 Atherosclerotic heart disease of native coronary artery without angina pectoris; E11.9 Type 2 diabetes mellitus without complications; E78.5 Hyperlipidemia, unspecified; I10 Essential (primary) hypertension; Z86.73 Personal history of transient ischemic attack (TIA), and cerebral infarction without residual deficits; Z87.891 Personal history of nicotine dependence
CPT/HCPCS: 71045; 80053; 84484; 85025; 93005; 99285

== ENCOUNTER 2022-01-12 05:42 | Emergency (ER) | payer OTHER, MEDICAID, SELFPAY ==
--- NOTE | 2022-01-12 05:47 | XRR_ITS ---
PROCEDURE INFORMATION: Exam: XR Chest Exam date and time: 01/12/2022 5:56 AM Age: 46 years old Clinical indication: Angina and shortness of breath; Prior surgery; Surgery date: 6+ months; Surgery type: Stents; Patient HX: SOB chest pain since yesterday; Additional info: Cp TECHNIQUE: Imaging protocol: Radiologic exam of the chest. Views: 1 view. COMPARISON: CR XR chest 1V portable [id number] 01/07/2022 12:32 PM FINDINGS: Lungs: There are normal lung volumes without interstitial or airspace opacities. Pleural spaces: There are no pleural effusions or pneumothorax. Heart/Mediastinum: The heart size is normal. The mediastinal contour is normal. The trachea is in the midline. Bones/joints: No acute abnormalities. XR/XR chest 1V portable [id number] IMPRESSION: No chest radiographic evidence of acute cardiopulmonary disease.
--- NOTE | 2022-01-12 05:47 | ECG_ITS ---
[facility] Test Date: 2022-01-12 Pat Name: Alonso June Department: Room: Gender: Male Non Destructive Evaluation Specialist: : 1975 Requested By: Jb Jaime Order Number: [id number] Janel MD: Anatoliy Jean Baptiste M.D. Measurements Intervals [place] Rate: 71 P: 59 SD: 159 QRS: 70 QRSD: 86 T: 71 QT: 358 QTc: 390 Interpretive Statements SINUS RHYTHM MODERATE VOLTAGE CRITERIA FOR LVH, CONSIDER NORMAL VARIANT [MEETS CRITERIA IN ONE OF: R(aVL), S(V1), R(V5), R(V5/V6)+S(V1)] Compared to ECG 01/07/2022 13:22:07 No significant changes Electronically Signed On 01-12-2022 20:49:03 CDT by Anatoliy Jean Baptiste M.D. [email or web address].[employer]/store/[id number] f
[2022-01-12 05:49] VITALS: BP 143/69; PULSE 72; RESP 18; TEMP 36.7; O2SAT 98; BMI 23.3
--- NOTE | 2022-01-12 06:20 | W.ED.CHESTPA ---
HPI - Chest Pain General: Chief Complaint: Chest Pain Stated Complaint: Chest Hurts Left Side Time Seen by Provider: 01/12/22 05:47 Source: patient Mode of arrival: ambulatory Limitations: no limitations History of Present Illness: 46-year-old male presents emergency room with complaint of chest pain. pt frequently presents with chest pain and has had 4 angiograms this calendar year. He states his chest pain began yesterday has continued till today he is taken nitroglycerin for with no relief of symptoms. We had seen him recently in the ER shortly after he had his most recent heart catheterization and started on Protonix he is taking it once a day at this point. He also frequently presents with complaint of stroke he has not had any strokelike symptoms recently. I reviewed the patient's chart has had multiple work-ups for stroke and chest pain with the 4 angiograms and multiple CTs of the head and chest. MD complaint: chest pain Onset (ago): day(s) (1) Timing of current episode: episodic Prior episodes: Yes Onset: during rest and during exertion Pain location: left chest Pain radiation: none Severity: moderate Quality: sharp Relieving factors: nothing Exacerbating factors: nothing Context: other (Patient has had 4 coronary angiograms in this calendar year) Associated symptoms: Reports abdominal pain; Deny diaphoresis, dyspnea, fever(s), leg edema, nausea, palpitations, sense of impending doom, syncope or vomiting Treatment prior to arrival: nitroglycerin Review of Systems Const: Denies: fever(s), chills, fatigue, malaise or diaphoresis ENMT: Denies: throat pain, ear or mastoid pain, nasal discharge or nasal congestion Card: Reports: chest pain; Denies: palpitations or syncope Resp: Denies: dyspnea GI: Reports: abdominal pain; Denies: nausea or vomiting : Denies: flank pain, difficulty urinating, dysuria, urinary frequency or urinary urgency Skin/Breast: Denies: rash or pruritus PFSH ED PFSH: Medical History Angina pectoris, unstable Atherosclerotic heart disease of [place] coronary artery with unstable angina pectoris Benign essential HTN CAD (coronary artery disease) 9stents Chest pain CVA (cerebrovascular accident) Diabetes Dyslipidemia (high LDL; low HDL) Former smoker HTN (hypertension) Surgical History History of appendectomy Family History Other No pertinent family history Social History Smoking and tobacco status: former smoker Alcohol intake: never Housing: House Physical Exam Const: COMMON NORMALS: no acute distress GENERAL APPEARANCE: cooperative and comfortable ORIENTATION/CONSCIOUSNESS: Yes awake, Yes oriented to person, Yes oriented to place and Yes oriented to time HENMT: COMMON NORMALS: normocephalic, atraumatic and hearing grossly normal bilaterally HEAD & SCALP: normocephalic and atraumatic Neck/C-Spine: COMMON NORMALS: no JVD Lymph: LYMPHATIC: no lymphadenopathy noted and no lymphedema noted Resp: COMMON NORMALS: normal respiratory effort, No retractions, No use of accessory muscles and clear to auscultation bilaterally AUSCULTATION: clear to auscultation bilaterally Cardio: COMMON NORMALS: no JVD, regular rate, regular rhythm and No murmurs present (Cardio) RATE: regular rate RHYTHM: regular rhythm GI: COMMON NORMALS: Soft to palpation and No hepatosplenomegaly present AUSCULTATION: Yes normoactive bowel sounds PALPATION: Yes Soft to palpation, No Tenderness to palpation present (GI), No Guarding due to palpation present (GI) and Yes No hepatosplenomegaly present Extremity: COMMON NORMALS: normal to inspection, capillary refill normal, no clubbing, cyanosis or edema, no calf tenderness and no pedal edema Neuro: SENSORIUM/ORIENTATION: Yes oriented to person, Yes oriented to place and Yes oriented to time OTHER: No neurologic deficits noted no lateralizing symptoms. Skin: COMMON NORMALS: no rashes or lesions noted GENERAL SKIN EXAM: no rashes or lesions noted Course Vital Signs: Vital signs: Vital Signs Temperature 98.0 F 01/12/22 05:49 Pulse Rate 72 01/12/22 05:49 Respiratory Rate 18 01/12/22 05:49 Blood Pressure 143/69 01/12/22 05:49 Pulse Oximetry 98 01/12/22 05:49 MDM - Chest Pain Medical Decision Making Patient well-known to the ER. He showed up multiple times with complaints of chest pain during this calendar year has had for coronary angiogram all of which have been negative. He is also been evaluated for stroke multiple times including 1 time he was tPA however there is no finding objectively of stroke at any point on his previous exams he has no neurologic symptoms today he has had the chest pain since yesterday's EKG is unchanged chest x-ray is normal. Given his history in total and his recent angiogram which was normal will discharge to go home have him follow-up with his primary care doctor. I did increase his Protonix to twice daily. He may at some point need to have a gastric emptying study. Medical Records I reviewed the patient's medical records. Lab Data I reviewed the patient's lab results. Radiology Impressions Chest X-Ray 01/12/22 05:47 IMPRESSION: No chest radiographic evidence of acute cardiopulmonary disease. Discharge Plan Discharge Patient Disposition: Home Clinical Impression: Chest pain, non-cardiac Condition: Stable Prescriptions: Changed Protonix 40 mg tablet,delayed release (DR/EC) 40 mg PO BID 30 Days Qty: 30 1RF No Action clopidogrel 75 mg tablet 75 mg PO QAM Qty: 30 1RF igftbqxctp-qksnjowjjcydx-gsur 50-325-40 mg tablet 2 tab PO BID PRN (Reason: Migraine Headache) 0RF Hold Instructions: interaction with aspirin albuterol sulfate [ProAir HFA] 90 mcg/actuation HFA aerosol inhaler 2 puff INHALATION Q4H PRN (Reason: Shortness Of Breath) 1 Days Qty: 30 0RF hydroxyzine HCl 25 mg tablet 25 mg PO BID PRN (Reason: nausea and vomiting) 0RF carvedilol 3.125 mg Tablet 6.25 mg PO Q12H 30 Days Qty: 60 1RF isosorbide mononitrate 60 mg tablet extended release 24 hr 90 mg PO BID Qty: 60 0RF Lantus Solostar U-100 Insulin 100 unit/mL (3 mL) insulin pen 5 unit SUBCUT BEDTIME Qty: 15 0RF Novolog Flexpen U-100 Insulin 100 unit/mL (3 mL) insulin pen See Rx Instructions .ROUTE .COMPLEX Qty: 15 0RF Rx Instructions: Inject, 3 times daily, after meals, based on sliding scale provided escitalopram oxalate 10 mg Tablet 10 mg PO DAILY 30 Days Qty: 30 1RF aripiprazole 10 mg Tablet 5 mg PO DAILY 30 Days Qty: 30 1RF atorvastatin 40 mg tablet 40 mg PO BEDTIME 30 Days Qty: 30 1RF ondansetron HCl 4 mg tablet 4 mg PO Q8H PRN (Reason: Nausea And Vomiting) 30 Days Qty: 60 1RF aspirin 81 mg Tablet,Delayed Release (Dr/Ec) 81 mg PO QAM 30 Days Qty: 30 1RF nitroglycerin [Nitrostat] 0.4 mg Tablet, Sublingual 0.4 mg SUBLINGUAL Q5M PRN (Reason: Chest Pain) 30 Days Qty: 60 1RF Rx Instructions: do not exceed 3 doses per episode ranolazine 500 mg tablet extended release 12 hr 500 mg PO BID 30 Days Qty: 60 1RF methocarbamol 750 mg tablet 750 mg PO Q6H PRN (Reason: spasms) Qty: 20 0RF ondansetron 4 mg tablet,disintegrating 4 mg PO Q6H PRN (Reason: nausea and vomiting) Qty: 14 0RF Discharge Orders: Discharge ED (Routine); Ordered 01/12/22 Ordered By: Kam Martinez Referrals: Cecily Miller MD [Primary Care Provider] - Discharge Diet: Usual diet Discharge Activity: Increase activity as tolerated Activity Restrictions/Additional Instructions: Follow-up with your doctor within the next week. Increase your Protonix to 1 pill twice daily. Coding Level of Care Code ED Big Data Software Engineer for Marcelino Stephen
[2022-01-12] MEDS: acetaminophen 325 mg Tablet 650 MG PO (06:23)
[2022-01-12] MEDS: lidocaine 2% viscous 15 ML, aluminum-mag hydrox-simethicon 30 ML, sucralfate oral liq 1 GM PO (06:24)
[2022-01-12 06:29] VITALS: BP 131/68; RESP 16
== END 2022-01-12 06:29 | disposition home or self-care (01) ==
PROVIDERS: Emergency Provider Family Medicine; PCP Internal Medicine
DX: R07.89 Other chest pain (principal); Z79.82 Long term (current) use of aspirin; Z79.4 Long term (current) use of insulin; I25.10 Atherosclerotic heart disease of native coronary artery without angina pectoris; Z86.73 Personal history of transient ischemic attack (TIA), and cerebral infarction without residual deficits; E11.9 Type 2 diabetes mellitus without complications; E78.5 Hyperlipidemia, unspecified; I10 Essential (primary) hypertension; Z87.891 Personal history of nicotine dependence
CPT/HCPCS: 71045; 93005; 99284

== ENCOUNTER 2022-01-15 09:50 | Emergency (ER) | payer OTHER, MEDICAID, SELFPAY ==
[2022-01-15 09:55] VITALS: BP 132/74; PULSE 86; RESP 15; TEMP 36.6; O2SAT 99; BMI 23.3
--- NOTE | 2022-01-15 10:03 | ECG_ITS ---
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 Measurements Intervals [place] Rate: 83 P: 69 [place]: 152 QRS: 79 QRSD: 86 T: 81 QT: 332 QTc: 392 Interpretive Statements SINUS RHYTHM MINIMAL VOLTAGE CRITERIA FOR LVH, CONSIDER NORMAL VARIANT [MEETS CRITERIA IN ONE OF: R(aVL), S(V1), R(V5), R(V5/V6)+S(V1)] Compared to ECG 01/12/2022 05:53:18 No significant changes Electronically Signed On 01-15-2022 21:28:16 CDT by Anatoliy Jean Baptiste M.D. [email or web address] [facility].[employer]/store/NU/[id number] f
--- NOTE | 2022-01-15 10:11 | XR_ITS ---
WS: [id number] Exam: XR chest 1V portable [id number] Date/Time of Exam: 01/15/2022 10:11 AM Reason For Exam: dyspnea/cough Comparison 01/12/2022. The lungs are hyperinflated and clear. Normal cardiomediastinal silhouette. No pleural effusions. Reg ional bony elements are intact. Coronary artery atherosclerosis noted. XR/XR chest 1V portable [id number] IMPRESSION: 1. Pulmonary hyperinflation. No acute cardiopulmonary finding. 2. Coronary artery atherosclerotic disease.
--- NOTE | 2022-01-15 10:27 | W.ED.CHESTPA ---
HPI - Chest Pain General: Chief Complaint: Chest Pain Stated Complaint: CHEST PAIN Time Seen by Provider: 01/15/22 09:54 Source: patient Mode of arrival: EMS Limitations: no limitations History of Present Illness: 46-year-old male presents emergency room with complaint of chest pain. Unfortunately Mr. June has been here multiple times this year. He is here today complaining of chest pain he states began a few hours ago. It is localized to the left side of his chest with no radiation he complains of severe sharp intermittent pains. There is documentation of 4 angiographies since late June. All 4 of which have been unremarkable. He is also had multiple CTA work-ups and CT head work-ups for stroke all of which have also been negative he has had tPA on at least 1 occasion due to strokelike symptoms. He has previously had a coronary stent. However that was several years ago and all of his angiographies this year have been negative. MD complaint: chest pain Onset (ago): hour(s) Timing of current episode: episodic Prior episodes: Yes Onset: during rest Pain location: left chest Pain radiation: none Severity: severe Quality: sharp Relieving factors: nothing Exacerbating factors: nothing Associated symptoms: Reports dyspnea; Deny abdominal pain, diaphoresis, fever(s), leg edema, nausea, palpitations, sense of impending doom, syncope or vomiting Treatment prior to arrival: none Risk Factors: Coronary artery disease risk factors: none Thoracic aortic dissection risk factors: none Review of Systems Const: Denies: fever(s), chills, fatigue, malaise or diaphoresis ENMT: Denies: throat pain, ear or mastoid pain, nasal discharge or nasal congestion Card: Reports: chest pain; Denies: palpitations or syncope Resp: Reports: dyspnea; Denies: productive cough, non-productive cough or wheezing GI: Denies: abdominal pain, nausea or vomiting : Denies: flank pain, difficulty urinating, dysuria, urinary frequency or urinary urgency Skin/Breast: Denies: rash or pruritus PFS ED PFSH: Medical History Angina pectoris, unstable Atherosclerotic heart disease of [place] coronary artery with unstable angina pectoris Benign essential HTN CAD (coronary artery disease) 9stents Chest pain CVA (cerebrovascular accident) Diabetes Dyslipidemia (high LDL; low HDL) Former smoker HTN (hypertension) Surgical History History of appendectomy Family History Other No pertinent family history Social History Smoking and tobacco status: former smoker Alcohol intake: never Housing: House Physical Exam Const: GENERAL APPEARANCE: cooperative and comfortable ORIENTATION/CONSCIOUSNESS: Yes awake, Yes oriented to person, Yes oriented to place and Yes oriented to time HENMT: COMMON NORMALS: normocephalic, atraumatic and hearing grossly normal bilaterally HEAD & SCALP: normocephalic and atraumatic Resp: COMMON NORMALS: normal respiratory effort, No retractions, No use of accessory muscles and clear to auscultation bilaterally AUSCULTATION: clear to auscultation bilaterally Cardio: COMMON NORMALS: regular rate, regular rhythm and No murmurs present (Cardio) RATE: regular rate RHYTHM: regular rhythm GI: COMMON NORMALS: Soft to palpation and No hepatosplenomegaly present AUSCULTATION: Yes normoactive bowel sounds PALPATION: Yes Soft to palpation, No Tenderness to palpation present (GI), No Guarding due to palpation present (GI) and Yes No hepatosplenomegaly present Extremity: COMMON NORMALS: normal to inspection, capillary refill normal, no clubbing, cyanosis or edema, no calf tenderness and no pedal edema Neuro: SENSORIUM/ORIENTATION: Yes oriented to person, Yes oriented to place and Yes oriented to time Skin: COMMON NORMALS: no rashes or lesions noted GENERAL SKIN EXAM: no rashes or lesions noted Course Vital Signs: Vital signs: Vital Signs Temperature 97.9 F 01/15/22 09:55 Pulse Rate 83 01/15/22 11:34 Respiratory Rate 15 01/15/22 11:34 Blood Pressure 151/81 01/15/22 11:34 Pulse Oximetry 100 01/15/22 11:34 MDM - Chest Pain Medical Decision Making Chest x-ray and EKG are unremarkable. Patient's exam is normal. 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 Medical Records I reviewed the patient's medical records. Lab Data I reviewed the patient's lab results. Radiology Impressions Chest X-Ray 01/15/22 10:11 IMPRESSION: 1. Pulmonary hyperinflation. No acute cardiopulmonary finding. 2. Coronary artery atherosclerotic disease. Discharge Plan Discharge Patient Disposition: Home Clinical Impression: Chest pain, non-cardiac Condition: Stable Prescriptions: No Action clopidogrel 75 mg tablet 75 mg PO QAM Qty: 30 1RF ehavwilaig-mdmgcuhvafqep-zxlv 50-325-40 mg tablet 2 tab PO BID PRN (Reason: Migraine Headache) Hold Instructions: interaction with aspirin albuterol sulfate [ProAir HFA] 90 mcg/actuation HFA aerosol inhaler 2 puff INHALATION Q4H PRN (Reason: Shortness Of Breath) 1 Days Qty: 30 0RF hydroxyzine HCl 25 mg tablet 25 mg PO BID PRN (Reason: nausea and vomiting) carvedilol 3.125 mg Tablet 6.25 mg PO Q12H 30 Days Qty: 60 1RF isosorbide mononitrate 60 mg tablet extended release 24 hr 90 mg PO BID Qty: 60 0RF Lantus Solostar U-100 Insulin 100 unit/mL (3 mL) insulin pen 5 unit SUBCUT BEDTIME Qty: 15 0RF Novolog Flexpen U-100 Insulin 100 unit/mL (3 mL) insulin pen See Rx Instructions .ROUTE .COMPLEX Qty: 15 0RF Rx Instructions: Inject, 3 times daily, after meals, based on sliding scale provided Protonix 40 mg tablet,delayed release (DR/EC) 40 mg PO BID 30 Days Qty: 30 1RF escitalopram oxalate 10 mg Tablet 10 mg PO DAILY 30 Days Qty: 30 1RF aripiprazole 10 mg Tablet 5 mg PO DAILY 30 Days Qty: 30 1RF atorvastatin 40 mg tablet 40 mg PO BEDTIME 30 Days Qty: 30 1RF ondansetron HCl 4 mg tablet 4 mg PO Q8H PRN (Reason: Nausea And Vomiting) 30 Days Qty: 60 1RF aspirin 81 mg Tablet,Delayed Release (Dr/Ec) 81 mg PO QAM 30 Days Qty: 30 1RF nitroglycerin [Nitrostat] 0.4 mg Tablet, Sublingual 0.4 mg SUBLINGUAL Q5M PRN (Reason: Chest Pain) 30 Days Qty: 60 1RF Rx Instructions: do not exceed 3 doses per episode ranolazine 500 mg tablet extended release 12 hr 500 mg PO BID 30 Days Qty: 60 1RF methocarbamol 750 mg tablet 750 mg PO Q6H PRN (Reason: spasms) Qty: 20 0RF ondansetron 4 mg tablet,disintegrating 4 mg PO Q6H PRN (Reason: nausea and vomiting) Qty: 14 0RF Discharge Orders: Discharge ED (Routine); Ordered 01/15/22 Ordered By: Kam Martinez Referrals: Cecily Miller MD [Primary Care Provider] - Patient Instructions: Opioid Safety Activity Restrictions/Additional Instructions: Follow-up with your primary care doctor or cardiology continue take all of your previously prescribed medications in the same manner. Coding Level of Care Code ED Optical Goods Worker for Marcelino Fwd Exam Detailed
[2022-01-15] MEDS: acetaminophen 500 mg Tablet 1000 MG PO (11:02)
[2022-01-15 11:34] VITALS: BP 151/81; PULSE 83; RESP 15; O2SAT 100
== END 2022-01-15 11:35 | disposition home or self-care (01) ==
PROVIDERS: Emergency Provider Family Medicine; PCP Internal Medicine
DX: R07.89 Other chest pain (principal); Z79.02 Long term (current) use of antithrombotics/antiplatelets; Z79.82 Long term (current) use of aspirin; Z79.4 Long term (current) use of insulin; I25.10 Atherosclerotic heart disease of native coronary artery without angina pectoris; Z86.73 Personal history of transient ischemic attack (TIA), and cerebral infarction without residual deficits; E11.9 Type 2 diabetes mellitus without complications; E78.5 Hyperlipidemia, unspecified; I10 Essential (primary) hypertension; Z87.891 Personal history of nicotine dependence
CPT/HCPCS: 71045; 93005; 99284

== ENCOUNTER 2022-01-15 21:16 | Emergency (ER) | payer OTHER, MEDICAID, SELFPAY ==
[2022-01-15 21:31] VITALS: BP 123/73; PULSE 83; RESP 18; TEMP 36.4; O2SAT 99; BMI 23.3
--- NOTE | 2022-01-15 23:22 | ECG_ITS ---
[facility] Test Date: 2022-01-15 Pat Name: Alonso June Department: Room: Gender: Male Manager Of Medical: : 1975 Requested By: Jb Jaime Order Number: [id number] Janel MD: Regine Bar M.D. Measurements Intervals [place] Rate: 77 P: 95 [place]: 157 QRS: 85 QRSD: 84 T: 86 QT: 346 QTc: 393 Interpretive Statements SINUS RHYTHM MINIMAL VOLTAGE CRITERIA FOR LVH, CONSIDER NORMAL VARIANT [MEETS CRITERIA IN ONE OF: R(aVL), S(V1), R(V5), R(V5/V6)+S(V1)] Compared to ECG 01/15/2022 09:53:09 No significant changes Electronically Signed On 01-16-2022 10:33:51 CDT by Regine Bar M.D. [email or web address]
--- NOTE | 2022-01-16 00:32 | XRR_ITS ---
PROCEDURE INFORMATION: Exam: XR Chest Exam date and time: 01/16/2022 12:51 AM Age: 46 years old Clinical indication: Chest pressure; Prior surgery; Surgery type: Heart cath; Patient HX: C/O RT sided chest pain. ; Additional info: Cp TECHNIQUE: Imaging protocol: Radiologic exam of the chest. Views: 1 view. COMPARISON: CR XR chest 1V portable [id number] 01/15/2022 10:16 AM FINDINGS: Lungs: Lungs are clear. Pleural spaces: There is no pleural effusion or pneumothorax. Heart/Mediastinum: Cardiomediastinal contours are unremarkable. Bones/joints: Bones are unremarkable. XR/XR chest 1V portable [id number] IMPRESSION: No acute findings.
--- NOTE | 2022-01-16 00:50 | W.ED.CHESTPA ---
HPI - Chest Pain General: Chief Complaint: Chest Pain Stated Complaint: Side and Chest Pain Time Seen by Provider: 01/16/22 00:32 Source: patient Mode of arrival: ambulatory Limitations: no limitations History of Present Illness: 46-year-old male who is very well-known to the ER. He states that he has been having chest pain today but also has been having diffuse abdominal pain. He has been seen here multiple times for chest pain in the past has had to negative caths this year. He denies any fever vomiting or diarrhea. Associated symptoms: Deny abdominal pain, dyspnea, fever(s), nausea or vomiting Review of Systems Const: Denies: fever(s), chills, body aches or change in appetite Eyes: Denies: blurry vision or eye discomfort ENMT: Denies: throat pain or dental pain Card: Reports: chest pain Resp: Denies: dyspnea GI: Denies: abdominal pain, nausea, vomiting or diarrhea : Denies: dysuria Musc: Denies: neck pain or back pain Skin/Breast: Denies: rash Neuro: Denies: headache(s) Psych: Denies: depression Melquiades/Lymph: Denies: easy bruising All/Imm: Denies: urticaria PFSH ED PFSH: Medical History Angina pectoris, unstable Atherosclerotic heart disease of [place] coronary artery with unstable angina pectoris Benign essential HTN CAD (coronary artery disease) 9stents Chest pain CVA (cerebrovascular accident) Diabetes Dyslipidemia (high LDL; low HDL) Former smoker HTN (hypertension) Surgical History History of appendectomy Family History Other No pertinent family history Social History Smoking and tobacco status: former smoker Alcohol intake: never Housing: House Physical Exam Const: COMMON NORMALS: no acute distress, patient oriented x3 and healthy appearing HENMT: COMMON NORMALS: normocephalic and atraumatic HEAD & SCALP: normocephalic and atraumatic Eye: COMMON NORMALS: Equal, round and reactive pupils present and EOMs intact bilaterally PUPIL: Yes Equal, round and reactive pupils present Neck/C-Spine: COMMON NORMALS: full ROM and supple Chest: COMMONS NORMALS: normal inspection of the chest and normal palpation of entire chest wall Resp: COMMON NORMALS: normal respiratory effort, No retractions, No use of accessory muscles and clear to auscultation bilaterally AUSCULTATION: clear to auscultation bilaterally Cardio: COMMON NORMALS: regular rate, regular rhythm and No murmurs present (Cardio) RATE: regular rate RHYTHM: regular rhythm GI: COMMON NORMALS: Normal to inspection, nondistended, normoactive bowel sounds present, Soft to palpation, non-tender and no masses PALPATION: Yes Soft to palpation Extremity: COMMON NORMALS: normal to inspection and full ROM Neuro: COMMON NORMALS: patient oriented x3, moves all extremities and no focal motor deficits Psych: COMMON NORMALS: mental status grossly normal, Normal thought process present and cooperative THOUGHT PROCESS: Normal thought process present Skin: COMMON NORMALS: no rashes or lesions noted and no wounds GENERAL SKIN EXAM: no rashes or lesions noted Course Vital Signs: Vital signs: Vital Signs Temperature 97.5 F L 01/15/22 21:31 Pulse Rate 83 01/15/22 21:31 Respiratory Rate 18 01/15/22 21:31 Blood Pressure 123/73 01/15/22 21:31 Pulse Oximetry 99 01/15/22 21:31 Oxygen Delivery Me thod 01/15/22 21:31 MDM - Chest Pain Medical Decision Making Patient presents for chest pain along with all abdominal pains atypical in nature his blood work here is all normal his exam is benign he stable for discharge is to follow-up with PCP and return if worsening he understands agrees to plan. Lab Data : 01/16/22 01:30 01/16/22 01:30 Radiology Impressions Chest X-Ray 01/16/22 00:32 IMPRESSION: No acute findings. Laboratory Results WBC 8.3 10^3/uL (4.0-10.0) 01/16/22 01:30 RBC 4.98 10^6/uL (4.1-5.3) 01/16/22 01:30 Hgb 11.2 g/dL (11.7-16.6) L 01/16/22 01:30 Hct 36.2 % (42.0-52.0) L 01/16/22 01:30 MCV 72.7 fl (80-94) L 01/16/22 01:30 MCH 22.5 pg (28.0-34.0) L 01/16/22 01:30 MCHC 30.9 g/dL (30.0-36.0) 01/16/22 01:30 RDW 18.4 % (12.1-15.1) H 01/16/22 01:30 Plt Count 338 10^3/cmm (130-400) 01/16/22 01:30 MPV 11.7 fL (7.4-10.4) H 01/16/22 01:30 Neut % (Auto) 58.8 % 01/16/22 01:30 Lymph % (Auto) 28.6 % 01/16/22 01:30 [place] % (Auto) 9.2 % 01/16/22 01:30 Eos % (Auto) 2.5 % 01/16/22 01:30 Baso % (Auto) 0.5 % 01/16/22 01:30 Neut # (Auto) 4.87 10^3/uL (1.8-7.7) 01/16/22 01:30 Lymph # (Auto) 2.4 10^3/uL (0.8-4.8) 01/16/22 01:30 [place] # (Auto) 0.8 10^3/uL (0.2-0.9) 01/16/22 01:30 Eos # (Auto) 0.2 10^3/uL (0.0-0.8) 01/16/22 01:30 Baso # (Auto) 0.0 10^3/uL (0.0-0.1) 01/16/22 01:30 Nucleated RBC % (auto) 0 % 01/16/22 01:30 Nucleated RBCs # 0.0 /100WBC 01/16/22 01:30 Sodium 139 mmol/L (136-145) 01/16/22 01:30 Potassium 3.8 mmol/L (3.5-5.1) 01/16/22 01:30 Chloride 104 mmol/L (98-107) 01/16/22 01:30 Carbon Dioxide 26 mmol/L (22-29) 01/16/22 01:30 Anion Gap 12.8 (5-19) 01/16/22 01:30 BUN 24 mg/dL (6-20) H 01/16/22 01:30 Creatinine 0.9 mg/dL (0.7-1.2) 01/16/22 01:30 GFR Calculation 91.7 mL/min (90-130) 01/16/22 01:30 Glucose 86 mg/dL (65-115) 01/16/22 01:30 Calculated Osmolality 291 mOsm/kg (285-295) 01/16/22 01:30 Calcium 9.2 mg/dL (8.5-10.5) 01/16/22 01:30 Total Bilirubin 0.3 mg/dL (0.15-1.2) 01/16/22 01:30 AST 11 U/L (0-40) 01/16/22 01:30 ALT 8 U/L (0-41) 01/16/22 01:30 Alkaline Phosphatase 72 IU/L (40-130) 01/16/22 01:30 Troponin T Baseline 17 ng/L (0-15) H 01/16/22 01:30 Total Protein 7.1 g/dL (6.6-8.7) 01/16/22 01:30 Albumin 4.2 g/dL (3.5-5.2) 01/16/22 01:30 Globulin 2.9 g/dL (1.3-4.6) 01/16/22 01:30 Lipase 62 U/L (13-60) H 01/16/22 01:30 EKG Data EKG 1: I personally reviewed and interpreted this EKG as follows: EKG interpretation date: 01/15/22 EKG interpretation time: 21:30 Interpretation: nsr hr [address] or t wave abnormalities qrs 84 [id number] EKG 2: I personally reviewed and interpreted this EKG as follows: EKG interpretation date: 01/16/22 EKG interpretation time: 01:43 Interpretation: nsr hr [address] or t wave abnormalities qrs 88 qtc 390 Discharge Plan Discharge Patient Disposition: Home Clinical Impression: Abdominal pain, Chest pain Condition: Stable Prescriptions: No Action clopidogrel 75 mg tablet 75 mg PO QAM Qty: 30 1RF rqwifmkekx-thlikovdhvfri-talz 50-325-40 mg tablet 2 tab PO BID PRN (Reason: Migraine Headache) Hold Instructions: interaction with aspirin albuterol sulfate [ProAir HFA] 90 mcg/actuation HFA aerosol inhaler 2 puff INHALATION Q4H PRN (Reason: Shortness Of Breath) 1 Days Qty: 30 0RF hydroxyzine HCl 25 mg tablet 25 mg PO BID PRN (Reason: nausea and vomiting) carvedilol 3.125 mg Tablet 6.25 mg PO Q12H 30 Days Qty: 60 1RF isosorbide mononitrate 60 mg tablet extended release 24 hr 90 mg PO BID Qty: 60 0RF Lantus Solostar U-100 Insulin 100 unit/mL (3 mL) insulin pen 5 unit SUBCUT BEDTIME Qty: 15 0RF Novolog Flexpen U-100 Insulin 100 unit/mL (3 mL) insulin pen See Rx Instructions .ROUTE .COMPLEX Qty: 15 0RF Rx Instructions: Inject, 3 times daily, after meals, based on sliding scale provided Protonix 40 mg tablet,delayed release (DR/EC) 40 mg PO BID 30 Days Qty: 30 1RF escitalopram oxalate 10 mg Tablet 10 mg PO DAILY 30 Days Qty: 30 1RF aripiprazole 10 mg Tablet 5 mg PO DAILY 30 Days Qty: 30 1RF atorvastatin 40 mg tablet 40 mg PO BEDTIME 30 Days Qty: 30 1RF ondansetron HCl 4 mg tablet 4 mg PO Q8H PRN (Reason: Nausea And Vomiting) 30 Days Qty: 60 1RF aspirin 81 mg Tablet,Delayed Release (Dr/Ec) 81 mg PO QAM 30 Days Qty: 30 1RF nitroglycerin [Nitrostat] 0.4 mg Tablet, Sublingual 0.4 mg SUBLINGUAL Q5M PRN (Reason: Chest Pain) 30 Days Qty: 60 1RF Rx Instructions: do not exceed 3 doses per episode ranolazine 500 mg tablet extended release 12 hr 500 mg PO BID 30 Days Qty: 60 1RF methocarbamol 750 mg tablet 750 mg PO Q6H PRN (Reason: spasms) Qty: 20 0RF ondansetron 4 mg tablet,disintegrating 4 mg PO Q6H PRN (Reason: nausea and vomiting) Qty: 14 0RF Discharge Orders: Discharge ED (Routine); Ordered 01/16/22 Ordered By: Jb Jaime Referrals: Cecily Miller MD [Primary Care Provider] - Discharge Diet: Advance as tolerated Discharge Activity: Resume usual activity Patient Instructions: Abdominal Pain (ED) Coding Level of Care Code ED Denture Contour Wire Specialist for Chg Fwd Exam Comprehensive
--- NOTE | 2022-01-16 00:51 | ECG_ITS ---
[facility] Test Date: 2022-01-16 Pat Name: Alonso June Department: Room: Gender: Male Program Admin: : 1975 Requested By: Jb Jaime Order Number: [id number] Janel MD: Regine Bar M.D. Measurements Intervals [place] Rate: 69 P: 69 [place]: 168 QRS: 78 QRSD: 88 T: 74 QT: 371 QTc: 398 Interpretive Statements SINUS RHYTHM MINIMAL VOLTAGE CRITERIA FOR LVH, CONSIDER NORMAL VARIANT [MEETS CRITERIA IN ONE OF: R(aVL), S(V1), R(V5), R(V5/V6)+S(V1)] Compared to ECG 01/15/2022 21:30:17 No significant changes Electronically Signed On 01-16-2022 10:32:52 CDT by Regine Bar M.D. [id number]
[2022-01-16] MEDS: ondansetron 4 MG Tablet PO (01:01)
[2022-01-16] MEDS: HYDROcodone-acetaminophen 5-325 mg Tablet 1 TAB PO (01:01)
[2022-01-16 01:30] VITALS: BP 135/78; PULSE 70; O2SAT 100
[2022-01-16 01:39] LABS: Basophils % 0.5 %; Eosinophils # 0.2 10^3/uL (0.0-0.8); Eosinophils % 2.5 %; Hematocrit 36.2 % (42.0-52.0); Hemoglobin 11.2 g/dL (11.7-16.6); Lymphocytes # 2.4 10^3/uL (0.8-4.8); Lymphocytes % 28.6 %; Mean Corpuscular HGB Conc 30.9 g/dL (30.0-36.0); Mean Corpuscular Hemoglobin 22.5 pg (28.0-34.0); Mean Corpuscular Volume 72.7 fl (80-94); Mean Platelet Volume 11.7 fL (7.4-10.4); Monocytes # 0.8 10^3/uL (0.2-0.9); Monocytes % 9.2 %; Neutrophils # 4.87 10^3/uL (1.8-7.7); Neutrophils % 58.8 %; Nucleated Red Blood Cells % 0 %; Platelet Count 338 10^3/cmm (130-400); Red Blood Count 4.98 10^6/uL (4.1-5.3); Red Cell Distribution Width 18.4 % (12.1-15.1); White Blood Count 8.3 10^3/uL (4.0-10.0)
[2022-01-16 02:11] LABS: Alanine Aminotransferase 8 U/L (0-41); Albumin Level 4.2 g/dL (3.5-5.2); Alkaline Phosphatase 72 IU/L (40-130); Anion Gap 12.8 (5-19); Aspartate Amino Transferase 11 U/L (0-40); Blood Urea Nitrogen 24 mg/dL (6-20); Calcium 9.2 mg/dL (8.5-10.5); Carbon Dioxide 26 mmol/L (22-29); Chloride 104 mmol/L (98-107); Globulin 2.9 g/dL (1.3-4.6); Glomerular Filtration Rate 91.7 mL/min (90-130); Glucose 86 mg/dL (65-115); Lipase 62 U/L (13-60); Osmolality Calculated 291 mOsm/kg (285-295); Potassium 3.8 mmol/L (3.5-5.1); Sodium 139 mmol/L (136-145); Total Bilirubin 0.3 mg/dL (0.15-1.2); Total Protein 7.1 g/dL (6.6-8.7)
[2022-01-16 02:13] LABS: Troponin(5th) Baseline 17 ng/L (0-15)
[2022-01-16 02:37] VITALS: BP 141/52; PULSE 61; RESP 16; O2SAT 99
== END 2022-01-16 02:33 | disposition home or self-care (01) ==
PROVIDERS: Emergency Provider Emergency Medicine; PCP Internal Medicine
DX: R07.9 Chest pain, unspecified (principal); R10.9 Unspecified abdominal pain; Z79.02 Long term (current) use of antithrombotics/antiplatelets; Z79.82 Long term (current) use of aspirin; Z79.4 Long term (current) use of insulin; I25.10 Atherosclerotic heart disease of native coronary artery without angina pectoris; Z86.73 Personal history of transient ischemic attack (TIA), and cerebral infarction without residual deficits; E11.9 Type 2 diabetes mellitus without complications; E78.5 Hyperlipidemia, unspecified; I10 Essential (primary) hypertension; Z87.891 Personal history of nicotine dependence
CPT/HCPCS: 71045; 80053; 83690; 84484; 85025; 93005; 99285; Q0162

== ENCOUNTER 2022-01-17 01:53 | Emergency (ER) | payer OTHER, MEDICAID, SELFPAY ==
[2022-01-17 01:54] VITALS: BP 182/88; PULSE 78; RESP 18; TEMP 36.6; O2SAT 100; BMI 23.3
--- NOTE | 2022-01-17 01:56 | ECG_ITS ---
[facility] Test Date: 2022-01-17 Pat Name: Alonso June Department: Room: Gender: Male Aesthetician: : 1975 Requested By: Jb Jaime Order Number: [id number] Janel MD: Richie Macias M.D. Measurements Intervals [place] Rate: 77 P: 67 DC: 155 QRS: 73 QRSD: 87 T: 66 QT: 340 QTc: 385 Interpretive Statements SINUS RHYTHM MODERATE VOLTAGE CRITERIA FOR LVH, CONSIDER NORMAL VARIANT [MEETS CRITERIA IN ONE OF: R(aVL), S(V1), R(V5), R(V5/V6)+S(V1)] Compared to ECG 01/16/2022 01:43:10 No significant changes Electronically Signed On 01-17-2022 11:57:27 CDT by Richie Macias M.D. [id number]
--- NOTE | 2022-01-17 02:05 | ED_ITS ---
HPI - Chest Pain General: Chief Complaint: Chest Pain Stated Complaint: cp Time Seen by Provider: 01/17/22 01:54 Source: patient Mode of arrival: ambulatory Limitations: no limitations History of Present Illness: 46-year-old male who states he has been having chest pain tonight. This is patient's 13th visit in 1 month. Patient has had a clean cardiac cath this month along with earlier this year. He states it is a sharp pain its been ongoing for years episodically. He denies any worsening improving factors denies any shortness of breath denies any fever. Associated symptoms: Deny abdominal pain, dyspnea, fever(s), nausea or vomiting Review of Systems Const: Denies: fever(s), chills, body aches or change in appetite Eyes: Denies: blurry vision or eye discomfort ENMT: Denies: throat pain or dental pain Card: Reports: chest pain Resp: Denies: dyspnea GI: Denies: abdominal pain, nausea, vomiting or diarrhea : Denies: dysuria Musc: Denies: neck pain or back pain Skin/Breast: Denies: rash Neuro: Denies: headache(s) Psych: Denies: depression Melquiades/Lymph: Denies: easy bruising All/Imm: Denies: urticaria PFSH ED PFSH: Medical History Angina pectoris, unstable Atherosclerotic heart disease of [place] coronary artery with unstable angina pectoris Benign essential HTN CAD (coronary artery disease) 9stents Chest pain CVA (cerebrovascular accident) Diabetes Dyslipidemia (high LDL; low HDL) Former smoker HTN (hypertension) Surgical History History of appendectomy Family History Other No pertinent family history Social History Smoking and tobacco status: former smoker Alcohol intake: never Housing: House Physical Exam Const: COMMON NORMALS: no acute distress, patient oriented x3 and healthy appearing HENMT: COMMON NORMALS: normocephalic and atraumatic HEAD & SCALP: normocephalic and atraumatic Eye: COMMON NORMALS: Equal, round and reactive pupils present and EOMs intact bilaterally PUPIL: Yes Equal, round and reactive pupils present Neck/C-Spine: COMMON NORMALS: full ROM and supple Chest: COMMONS NORMALS: normal inspection of the chest and normal palpation of entire chest wall Resp: COMMON NORMALS: normal respiratory effort, No retractions, No use of accessory muscles and clear to auscultation bilaterally AUSCULTATION: clear to auscultation bilaterally Cardio: COMMON NORMALS: regular rate, regular rhythm and No murmurs present (Cardio) RATE: regular rate RHYTHM: regular rhythm GI: COMMON NORMALS: Normal to inspection, nondistended, normoactive bowel sounds present, Soft to palpation, non-tender and no masses PALPATION: Yes Soft to palpation Extremity: COMMON NORMALS: normal to inspection and full ROM Neuro: COMMON NORMALS: patient oriented x3, moves all extremities and no focal motor deficits Psych: COMMON NORMALS: mental status grossly normal, Normal thought process present and cooperative THOUGHT PROCESS: Normal thought process present Skin: COMMON NORMALS: no rashes or lesions noted and no wounds GENERAL SKIN EXAM: no rashes or lesions noted Course Vital Signs: Vital signs: Vital Signs Temperature 97.8 F 01/17/22 01:54 Pulse Rate 78 01/17/22 01:54 Respiratory Rate 18 01/17/22 01:54 Blood Pressure 182/88 01/17/22 01:54 Pulse Oximetry 100 01/17/22 01:54 Oxygen Delivery Me thod 01/17/22 01:54 MDM - Chest Pain Medical Decision Making Patient presents here with chest pain he has been seen here multiple times and had multiple cath last year his EKG here is normal he had a full work-up last night he is well-appearing here he stable for discharge he is to follow-up with PCP and return if worsening. EKG Data EKG 1: I personally reviewed and interpreted this EKG as follows: EKG interpretation date: 01/17/22 EKG interpretation time: 01:56 Interpretation: nsr hr [address] or t wave abnormalities qrs 87 qtc 371 Discharge Plan Discharge Patient Disposition: Home Clinical Impression: Chest pain Condition: Stable Prescriptions: No Action clopidogrel 75 mg tablet 75 mg PO QAM Qty: 30 1RF ebknlosouw-alclvhajzbtyf-bswc 50-325-40 mg tablet 2 tab PO BID PRN (Reason: Migraine Headache) Hold Instructions: interaction with aspirin albuterol sulfate [ProAir HFA] 90 mcg/actuation HFA aerosol inhaler 2 puff INHALATION Q4H PRN (Reason: Shortness Of Breath) 1 Days Qty: 30 0RF hydroxyzine HCl 25 mg tablet 25 mg PO BID PRN (Reason: nausea and vomiting) carvedilol 3.125 mg Tablet 6.25 mg PO Q12H 30 Days Qty: 60 1RF isosorbide mononitrate 60 mg tablet extended release 24 hr 90 mg PO BID Qty: 60 0RF Lantus Solostar U-100 Insulin 100 unit/mL (3 mL) insulin pen 5 unit SUBCUT BEDTIME Qty: 15 0RF Novolog Flexpen U-100 Insulin 100 unit/mL (3 mL) insulin pen See Rx Instructions .ROUTE .COMPLEX Qty: 15 0RF Rx Instructions: Inject, 3 times daily, after meals, based on sliding scale provided Protonix 40 mg tablet,delayed release (DR/EC) 40 mg PO BID 30 Days Qty: 30 1RF escitalopram oxalate 10 mg Tablet 10 mg PO DAILY 30 Days Qty: 30 1RF aripiprazole 10 mg Tablet 5 mg PO DAILY 30 Days Qty: 30 1RF atorvastatin 40 mg tablet 40 mg PO BEDTIME 30 Days Qty: 30 1RF ondansetron HCl 4 mg tablet 4 mg PO Q8H PRN (Reason: Nausea And Vomiting) 30 Days Qty: 60 1RF aspirin 81 mg Tablet,Delayed Release (Dr/Ec) 81 mg PO QAM 30 Days Qty: 30 1RF nitroglycerin [Nitrostat] 0.4 mg Tablet, Sublingual 0.4 mg SUBLINGUAL Q5M PRN (Reason: Chest Pain) 30 Days Qty: 60 1RF Rx Instructions: do not exceed 3 doses per episode ranolazine 500 mg tablet extended release 12 hr 500 mg PO BID 30 Days Qty: 60 1RF methocarbamol 750 mg tablet 750 mg PO Q6H PRN (Reason: spasms) Qty: 20 0RF ondansetron 4 mg tablet,disintegrating 4 mg PO Q6H PRN (Reason: nausea and vomiting) Qty: 14 0RF Discharge Orders: Discharge ED (Routine); Ordered 01/17/22 Ordered By: Jb Jaime Referrals: Cecily Miller MD [Primary Care Provider] - Discharge Diet: Advance as tolerated Discharge Activity: Resume usual activity Patient Instructions: Chest Pain (ED) Coding Level of Care Code ED Literacy Coordinator for Chg Fwd Exam Comprehensive
[2022-01-17] MEDS: acetaminophen 325 mg Tablet 650 MG PO (02:11)
[2022-01-17 02:28] LABS: Glucose Point of Care 112 mg/dL (70-110)
== END 2022-01-17 02:28 | disposition home or self-care (01) ==
PROVIDERS: Emergency Provider Emergency Medicine; PCP Internal Medicine
DX: R07.9 Chest pain, unspecified (principal); Z79.02 Long term (current) use of antithrombotics/antiplatelets; Z79.82 Long term (current) use of aspirin; Z79.4 Long term (current) use of insulin; I25.10 Atherosclerotic heart disease of native coronary artery without angina pectoris; Z86.73 Personal history of transient ischemic attack (TIA), and cerebral infarction without residual deficits; E11.9 Type 2 diabetes mellitus without complications; E78.5 Hyperlipidemia, unspecified; I10 Essential (primary) hypertension; Z87.891 Personal history of nicotine dependence
CPT/HCPCS: 36416; 82962; 93005; 99283

== ENCOUNTER 2022-01-18 18:05 | Emergency (ER) | payer OTHER, MEDICAID, SELFPAY ==
[2022-01-18 18:13] VITALS: BP 144/75; PULSE 77; RESP 16; O2SAT 100
--- NOTE | 2022-01-18 18:47 | ED_ITS ---
HPI - Seizure General: Chief Complaint: Seizure Stated Complaint: AMS; SEIZURES Time Seen by Provider: 01/18/22 18:11 History of Present Illness: HPI Narrative: 46-year-old male well-known to the ER. I believe this is his 14th visit to the emergency department in the last month. He is well-known for malingering. He presents with seizures today. He tells him that the people around him have told him that he has had several short episodes of seizure today, and that he is generally weak. complaint: possible seizure Description of Episode: loss of consciousness Seizure History: No Possible Precipitating Event: none Associated symptoms: Reports confusion; Deny chest pain, cough, fever(s) or short of breath Treatments prior to arrival: none Review of Systems Const: Denies: fever(s) ENMT: Denies: throat pain Card: Denies: chest pain Resp: Denies: dyspnea or productive cough GI: Denies: abdominal pain Neuro: Reports: confusion PFSH ED PFSH: Medical History Angina pectoris, unstable Atherosclerotic heart disease of [place] coronary artery with unstable angina pectoris Benign essential HTN CAD (coronary artery disease) 9stents Chest pain CVA (cerebrovascular accident) Diabetes Dyslipidemia (high LDL; low HDL) Former smoker HTN (hypertension) Surgical History History of appendectomy Family History Other No pertinent family history Social History Smoking and tobacco status: former smoker Alcohol intake: never Housing: House Physical Exam Const: COMMON NORMALS: no acute distress GENERAL APPEARANCE: cooperative, well kempt and lethargic; not ill appearing and not frail appearing ORIENTATION/CONSCIOUSNESS: Yes oriented to person, Yes oriented to place and Yes lethargic HENMT: COMMON NORMALS: normocephalic, atraumatic and Normal external nose present HEAD & SCALP: normocephalic and atraumatic FACE & SINUS: normal fa cial exam and face symmetric NOSE: Normal external nose present Eye: COMMON NORMALS: Equal, round and reactive pupils present and EOMs intact bilaterally PUPIL: Yes Equal, round and reactive pupils present Chest: COMMONS NORMALS: normal inspection of the chest CHEST: Yes Symmetrical chest wall rise Resp: COMMON NORMALS: normal respiratory effort, No use of accessory muscles and clear to auscultation bilaterally AUSCULTATION: clear to auscultation bilaterally Cardio: COMMON NORMALS: regular rate and regular rhythm RATE: regular rate RHYTHM: regular rhythm GI: COMMON NORMALS: Normal to inspection, nondistended, normoactive bowel sounds present, Soft to palpation and non-tender PALPATION: Yes Soft to palpation Extremity: COMMON NORMALS: normal to inspection Neuro: SENSORIUM/ORIENTATION: Yes oriented to person, Yes oriented to place and Yes lethargic Psych: APPEARANCE: Yes well kempt Course Vital Signs: Vital signs: Vital Signs Pulse Rate 59 L 01/18/22 19:30 Respiratory Rate 16 01/18/22 18:13 Blood Pressure 148/66 01/18/22 19:30 Pulse Oximetry 100 01/18/22 19:30 Oxygen Delivery Me thod 01/18/22 19:30 MDM - Seizure MDM Narrative Medical decision making narrative: Patient's potassium is mildly low. This is repleted here. Other laboratory is essentially benign. Medically he has been stable. He has a normal EKG by EMS with no acute ST changes. He will be allowed discharge He says he has been out of Depakote which he normally takes. He gives a dosage of 40 mg twice a day, which is not an option for Depakote dosing. Given the patient's history of malingering, we will encourage him to follow-up as an outpatient for obtaining his Depakote, as we do not have record of him taking it prior. Lab Data Result diagrams: 01/18/22 18:45 01/18/22 18:45 Labs: Laboratory Results WBC 7.6 10^3/uL (4.0-10.0) 01/18/22 18:45 RBC 4.37 10^6/uL (4.1-5.3) 01/18/22 18:45 Hgb 9.9 g/dL (11.7-16.6) L 01/18/22 18:45 Hct 31.4 % (42.0-52.0) L 01/18/22 18:45 MCV 71.9 fl (80-94) L 01/18/22 18:45 MCH 22.7 pg (28.0-34.0) L 01/18/22 18:45 MCHC 31.5 g/dL (30.0-36.0) 01/18/22 18:45 RDW 18.4 % (12.1-15.1) H 01/18/22 18:45 Plt Count 295 10^3/cmm (130-400) 01/18/22 18:45 MPV 11.8 fL (7.4-10.4) H 01/18/22 18:45 Neut % (Auto) 57.4 % 01/18/22 18:45 Lymph % (Auto) 28.2 % 01/18/22 18:45 [place] % (Auto) 11.6 % 01/18/22 18:45 Eos % (Auto) 2.0 % 01/18/22 18:45 Baso % (Auto) 0.5 % 01/18/22 18:45 Neut # (Auto) 4.36 10^3/uL (1.8-7.7) 01/18/22 18:45 Lymph # (Auto) 2.1 10^3/uL (0.8-4.8) 01/18/22 18:45 [place] # (Auto) 0.9 10^3/uL (0.2-0.9) 01/18/22 18:45 Eos # (Auto) 0.2 10^3/uL (0.0-0.8) 01/18/22 18:45 Baso # (Auto) 0.0 10^3/uL (0.0-0.1) 01/18/22 18:45 Nucleated RBC % (auto) 0 % 01/18/22 18:45 Nucleated RBCs # 0.0 /100WBC 01/18/22 18:45 Sodium 141 mmol/L (136-145) 01/18/22 18:45 Potassium 3.3 mmol/L (3.5-5.1) L 01/18/22 18:45 Chloride 108 mmol/L (98-107) H 01/18/22 18:45 Carbon Dioxide 22 mmol/L (22-29) 01/18/22 18:45 Anion Gap 14.3 (5-19) 01/18/22 18:45 BUN 15 mg/dL (6-20) 01/18/22 18:45 Creatinine 0.8 mg/dL (0.7-1.2) 01/18/22 18:45 GFR Calculation 105.0 mL/min (90-130) 01/18/22 18:45 Glucose 107 mg/dL (65-115) 01/18/22 18:45 Calculated Osmolality 293 mOsm/kg (285-295) 01/18/22 18:45 Calcium 8.8 mg/dL (8.5-10.5) 01/18/22 18:45 Phosphorus 2.4 mg/dL (2.5-4.5) L 01/18/22 18:45 Magnesium 1.7 mg/dL (1.7-2.3) 01/18/22 18:45 Total Bilirubin 0.2 mg/dL (0.15-1.2) 01/18/22 18:45 AST 9 U/L (0-40) 01/18/22 18:45 ALT < 5 U/L (0-41) 01/18/22 18:45 Alkaline Phosphatase 60 IU/L (40-130) 01/18/22 18:45 Total Protein 6.5 g/dL (6.6-8.7) L 01/18/22 18:45 Albumin 4.1 g/dL (3.5-5.2) 01/18/22 18:45 Globulin 2.4 g/dL (1.3-4.6) 01/18/22 18:45 Ethyl Alcohol < 10 mg/dL (0-10) 01/18/22 18:45 Discharge Plan Discharge Patient Disposition: Home Clinical Impression: Generalized seizure Condition: Stable Prescriptions: No Action clopidogrel 75 mg tablet 75 mg PO QAM Qty: 30 1RF uudrytjblv-ygdfwrqrwcvop-rjyv 50-325-40 mg tablet 2 tab PO BID PRN (Reason: Migraine Headache) Hold Instructions: interaction with aspirin albuterol sulfate [ProAir HFA] 90 mcg/actuation HFA aerosol inhaler 2 puff INHALATION Q4H PRN (Reason: Shortness Of Breath) 1 Days Qty: 30 0RF hydroxyzine HCl 25 mg tablet 25 mg PO BID PRN (Reason: nausea and vomiting) carvedilol 3.125 mg Tablet 6.25 mg PO Q12H 30 Days Qty: 60 1RF isosorbide mononitrate 60 mg tablet extended release 24 hr 90 mg PO BID Qty: 60 0RF Lantus Solostar U-100 Insulin 100 unit/mL (3 mL) insulin pen 5 unit SUBCUT BEDTIME Qty: 15 0RF Novolog Flexpen U-100 Insulin 100 unit/mL (3 mL) insulin pen See Rx Instructions .ROUTE .COMPLEX Qty: 15 0RF Rx Instructions: Inject, 3 times daily, after meals, based on sliding scale provided Protonix 40 mg tablet,delayed release (DR/EC) 40 mg PO BID 30 Days Qty: 30 1RF escitalopram oxalate 10 mg Tablet 10 mg PO DAILY 30 Days Qty: 30 1RF aripiprazole 10 mg Tablet 5 mg PO DAILY 30 Days Qty: 30 1RF atorvastatin 40 mg tablet 40 mg PO BEDTIME 30 Days Qty: 30 1RF ondansetron HCl 4 mg tablet 4 mg PO Q8H PRN (Reason: Nausea And Vomiting) 30 Days Qty: 60 1RF aspirin 81 mg Tablet,Delayed Release (Dr/Ec) 81 mg PO QAM 30 Days Qty: 30 1RF nitroglycerin [Nitrostat] 0.4 mg Tablet, Sublingual 0.4 mg SUBLINGUAL Q5M PRN (Reason: Chest Pain) 30 Days Qty: 60 1RF Rx Instructions: do not exceed 3 doses per episode ranolazine 500 mg tablet extended release 12 hr 500 mg PO BID 30 Days Qty: 60 1RF methocarbamol 750 mg tablet 750 mg PO Q6H PRN (Reason: spasms) Qty: 20 0RF ondansetron 4 mg tablet,disintegrating 4 mg PO Q6H PRN (Reason: nausea and vomiting) Qty: 14 0RF Discharge Orders: Discharge ED (Routine); Ordered 01/18/22 Ordered By: Pete Noguera Referrals: Cecily Miller MD [Primary Care Provider] - 1-3 days Patient Instructions: Recurrent Seizures in Adults (ED) Activity Restrictions/Additional Instructions: Call your doctor tomorrow to see if your Depakote should be refilled. We do not have correct dosing on record for you for your Depakote. Coding Level of Care Code ED Special Delivery Clerk for Chg Fwd Exam Comprehensive
[2022-01-18 19:00] VITALS: BP 139/61; PULSE 70; O2SAT 100
[2022-01-18 19:01] LABS: Basophils % 0.5 %; Eosinophils # 0.2 10^3/uL (0.0-0.8); Hematocrit 31.4 % (42.0-52.0); Hemoglobin 9.9 g/dL (11.7-16.6); Lymphocytes # 2.1 10^3/uL (0.8-4.8); Lymphocytes % 28.2 %; Mean Corpuscular HGB Conc 31.5 g/dL (30.0-36.0); Mean Corpuscular Hemoglobin 22.7 pg (28.0-34.0); Mean Corpuscular Volume 71.9 fl (80-94); Mean Platelet Volume 11.8 fL (7.4-10.4); Monocytes # 0.9 10^3/uL (0.2-0.9); Monocytes % 11.6 %; Neutrophils # 4.36 10^3/uL (1.8-7.7); Neutrophils % 57.4 %; Nucleated Red Blood Cells % 0 %; Platelet Count 295 10^3/cmm (130-400); Red Blood Count 4.37 10^6/uL (4.1-5.3); Red Cell Distribution Width 18.4 % (12.1-15.1); White Blood Count 7.6 10^3/uL (4.0-10.0)
[2022-01-18 19:30] VITALS: BP 148/66; PULSE 59; O2SAT 100
[2022-01-18 19:34] LABS: Alanine Aminotransferase < 5 U/L (0-41); Albumin Level 4.1 g/dL (3.5-5.2); Alkaline Phosphatase 60 IU/L (40-130); Anion Gap 14.3 (5-19); Aspartate Amino Transferase 9 U/L (0-40); Blood Urea Nitrogen 15 mg/dL (6-20); Calcium 8.8 mg/dL (8.5-10.5); Carbon Dioxide 22 mmol/L (22-29); Chloride 108 mmol/L (98-107); Globulin 2.4 g/dL (1.3-4.6); Glucose 107 mg/dL (65-115); Magnesium 1.7 mg/dL (1.7-2.3); Osmolality Calculated 293 mOsm/kg (285-295); Phosphorus 2.4 mg/dL (2.5-4.5); Potassium 3.3 mmol/L (3.5-5.1); Sodium 141 mmol/L (136-145); Total Bilirubin 0.2 mg/dL (0.15-1.2); Total Protein 6.5 g/dL (6.6-8.7)
[2022-01-18 19:39] LABS: Alcohol Level < 10 mg/dL (0-10)
[2022-01-18 20:22] VITALS: BP 140/72; PULSE 63; RESP 16; O2SAT 100
== END 2022-01-18 20:20 | disposition home or self-care (01) ==
PROVIDERS: Emergency Provider Emergency Medicine; PCP Internal Medicine
DX: G40.89 Other seizures (principal); Z79.82 Long term (current) use of aspirin; Z79.4 Long term (current) use of insulin; I25.10 Atherosclerotic heart disease of native coronary artery without angina pectoris; Z86.73 Personal history of transient ischemic attack (TIA), and cerebral infarction without residual deficits; E11.9 Type 2 diabetes mellitus without complications; E78.5 Hyperlipidemia, unspecified; I10 Essential (primary) hypertension; Z87.891 Personal history of nicotine dependence
CPT/HCPCS: 80053; 80307; 83735; 84100; 85025; 99284

== ENCOUNTER 2022-01-19 17:10 | Emergency (ER) | payer OTHER, MEDICAID, SELFPAY ==
[2022-01-19 17:17] VITALS: BP 137/81; PULSE 90; RESP 18; TEMP 37.1; O2SAT 99; BMI 23.3
--- NOTE | 2022-01-19 17:19 | XRR_ITS ---
PROCEDURE INFORMATION: Exam: XR Chest Exam date and time: 01/19/2022 5:44 PM Age: 46 years old Clinical indication: Angina; Additional info: Chest pain TECHNIQUE: Imaging protocol: Radiologic exam of the chest. Views: 1 view. COMPARISON: CR (CHEST, ) 01/16/2022 12:51 AM FINDINGS: Lungs: Unremarkable. No consolidation. Pleural spaces: Unremarkable. No pleural effusion. No pneumothorax. Heart/Mediastinum: Unremarkable. No cardiomegaly. Bones/joints: Unremarkable. XR/XR chest 1V portable [id number] IMPRESSION: No acute findings.
--- NOTE | 2022-01-19 17:29 | ECG_ITS ---
[facility] Test Date: 2022-01-19 Pat Name: Alonso June Department: Room: Gender: Male Jail Officer: : 1975 Requested By: Edwige Crystal Order Number: [id number] Janel MD: Richie Macias M.D. Measurements Intervals [place] Rate: 118 P: 68 ID: [id number] QRS: 57 QRSD: 84 T: 50 QT: 284 QTc: 399 Interpretive Statements SINUS TACHYCARDIA MODERATE VOLTAGE CRITERIA FOR LVH, CONSIDER NORMAL VARIANT [MEETS CRITERIA IN ONE OF: R(aVL), S(V1), R(V5), R(V5/V6)+S(V1)] ABNORMAL RHYTHM ECG Compared to ECG 01/17/2022 01:56:23 Sinus rhythm no longer present Electronically Signed On 01-20-2022 7:10:38 CDT by Richie Macias M.D. [id number]
[2022-01-19 17:35] LABS: Basophils # 0.1 10^3/uL (0.0-0.1); Basophils % 0.6 %; Eosinophils # 0.2 10^3/uL (0.0-0.8); Eosinophils % 2.5 %; Hematocrit 32.1 % (42.0-52.0); Hemoglobin 10.2 g/dL (11.7-16.6); Lymphocytes # 2.1 10^3/uL (0.8-4.8); Lymphocytes % 25.1 %; Mean Corpuscular HGB Conc 31.8 g/dL (30.0-36.0); Mean Corpuscular Hemoglobin 22.8 pg (28.0-34.0); Mean Corpuscular Volume 71.7 fl (80-94); Mean Platelet Volume 11.9 fL (7.4-10.4); Monocytes # 0.9 10^3/uL (0.2-0.9); Monocytes % 10.3 %; Neutrophils # 5.16 10^3/uL (1.8-7.7); Neutrophils % 61.3 %; Nucleated Red Blood Cells % 0 %; Platelet Count 322 10^3/cmm (130-400); Red Blood Count 4.48 10^6/uL (4.1-5.3); Red Cell Distribution Width 18.3 % (12.1-15.1); White Blood Count 8.4 10^3/uL (4.0-10.0)
[2022-01-19 18:16] VITALS: BP 144/86; PULSE 85; RESP 24; O2SAT 100
[2022-01-19 18:21] LABS: Anion Gap 12.7 (5-19); Blood Urea Nitrogen 13 mg/dL (6-20); Carbon Dioxide 25 mmol/L (22-29); Chloride 105 mmol/L (98-107); Glomerular Filtration Rate 91.7 mL/min (90-130); Glucose 99 mg/dL (65-115); Osmolality Calculated 288 mOsm/kg (285-295); Potassium 3.7 mmol/L (3.5-5.1); Sodium 139 mmol/L (136-145)
--- NOTE | 2022-01-19 18:21 | W.ED.GENADLT ---
HPI - General Adult General: Chief complaint: Chest Pain Stated complaint: chest pain Time Seen by Provider: 01/19/22 17:19 History of Present Illness: CC: Chest Pain HPI: This is a 46 yo patient hx of CAD presenting to the ED complaining of acute sudden onset intermittent sharp chest pain radiation to the back which started this afternoon when patient was [place] the court [place] around 2:30 PM. No associated with shortness of breath, chest pain or dyspnea on exertion.. Pain not associated with vomiting or PO intake. Denies any recent sympathomimetic drug use. Patient denies any cough. Denies palpitations, dysphagia, diaphoresis, radiation of pain to bilateral arms, jaw. Denies F/N/V/D. Patient denies any recent immobility, surgery, unilateral leg swelling, or prior PE. Patient denies any orthopnea. Onset: 2:30pm Duration: ongoing for the last 2 hrs Location: home Severity: moderate Associated symptoms: Reports chest pain and dyspnea; Deny nausea, rash, palpitations or vomiting Review of Systems Const: Denies: fever(s) or chills Eyes: Denies: change in vision ENMT: Denies: mouth pain Card: Reports: chest pain; Denies: palpitations Resp: Reports: dyspnea; Denies: non-productive cough GI: Denies: abdominal pain, nausea, vomiting or diarrhea : Denies: dysuria Musc: Denies: extremity pain Skin/Breast: Denies: rash or new lesions Neuro: Denies: weakness in extremities Psych: Reports: other (Normal mood) Melquiades/Lymph: Denies: easy bruising PFSH ED PFSH: Medical History Angina pectoris, unstable Atherosclerotic heart disease of [place] coronary artery with unstable angina pectoris Benign essential HTN CAD (coronary artery disease) 9stents Chest pain CVA (cerebrovascular accident) Diabetes Dyslipidemia (high LDL; low HDL) Former smoker HTN (hypertension) Surgical History History of appendectomy Family History Other No pertinent family history Social History Smoking and tobacco status: former smoker Alcohol intake: never Housing: House Physical Exam Const: COMMON NORMALS: alert HENMT: COMMON NORMALS: atraumatic HEAD & SCALP: atraumatic MOUTH: moist mucous membranes not abnormal Eye: COMMON NORMALS: EOMs intact bilaterally and conjunctivae normal CONJUNCTIVA: Yes conjunctivae normal Neck/C-Spine: COMMON NORMALS: full ROM and supple Resp: COMMON NORMALS: normal respiratory effort and clear to auscultation bilaterally AUSCULTATION: clear to auscultation bilaterally Cardio: RATE: tachycardic OTHER: 2+ radial pulses b/l GI: COMMON NORMALS: Soft to palpation and non-tender PALPATION: Yes Soft to palpation Extremity: COMMON NORMALS: full ROM Neuro: SENSORIUM/ORIENTATION: Yes alert MOTOR EXAM: No Abnormal motor strength present and Other motor observations present (no focal motor deficits) Psych: COMMON NORMALS: speech normal SPEECH: Yes normal speech MOOD & AFFECT: Yes euthymic mood Course Vital Signs: Vital signs: Vital Signs Temperature 98.8 F 01/19/22 17:17 Pulse Rate 75 01/19/22 21:07 Respiratory Rate 12 01/19/22 21:07 Blood Pressure 117/78 01/19/22 21:07 Pulse Oximetry 98 01/19/22 21:07 Oxygen Delivery Me thod 01/19/22 18:16 MDM - General Adult Medical Decision Making [46]yo patient w/ hx of CAD presenting to the ED with evaluation of new onset sharp chest pain since 2:30pm this afternoon. HDS, pulse 2+ radially bilaterally, no signs of fluid overload, AAOx3, neuro exam intact. Given History and Exam today I have no suspicion for ACS, Pneumothorax, Pneumonia, Pulmonary Embolus, Tamponade, Aortic Dissection or other emergent problems as a cause for this presentation. Workup: ECG, CXR, CBC, BMP, Troponin x 2 Interventions: ASA, morphine 4mg for pain Findings: ECG: No overt evidence of STEMI, hyperacute T waves, localizable STD or T wave inversions. No evidence of Brugada?s sign, delta wave, epsilon wave, significantly prolonged QTc, or malignant arrhythmia. No Q waves. Other Labs unremarkable for emergent problems. CXR: Without PTX, PNA, or widened mediastinum Dimer wnl [8:41pm] On reassessment, the patient is HDS, no complaints of persistent chest pain in the ED after evaluation. ECG is non-ischemic. Patient has troponin with delta less than 5. Patient is not actively complaining of chest pain in the emergency room after 1 dose of morphine. At the present time, I have performed a shared decision making with patient. Patient has not underwent angio Bam study recently. I have offered patient inpatient admission for angiogram study. However patient elects to go home at this time. I explained to the patient that the risks of leaving since he has history of coronary artery disease which include possible [place] in future . Patient verbalized understanding tells me that he feels greater and he rather follow-up with cardiology outpatient. Doubt ACS/PE or other emergent causes of chest pain currntly. No suspicion for aortic dissection given no widened mediastinum, 2+ upper extremity pulses, or tearing pain. No suspicion for PE given no pleuritic chest pain, recent immobilization or surgery hemoptysis, or other VTE risk factors. EKG is non-ischemic. XR normal. Patient elects to go home. Have given patient close follow-up with cardiology outpatient for an outpatient elective cath and further evaluation of his symptoms since last time he never underwent further evaluation for his NSTEMI Rx: Tylenol PRN pain Disposition: Discharge. Strict return precautions discussed with the patient with full understanding. Advised patient to follow up promptly with a primary care provider in 24-48 hrs if the patient has persistent symptoms. Given return instructions for any crushing/tearing chest pain, focal weakness, syncope or any new or concerning issues. Lab Data : 01/19/22 17:05 01/19/22 17:05 Radiology Impressions Chest X-Ray 01/19/22 17:19 IMPRESSION: No acute findings. Laboratory Results WBC 8.4 10^3/uL (4.0-10.0) 01/19/22 17:05 RBC 4.48 10^6/uL (4.1-5.3) 01/19/22 17:05 Hgb 10.2 g/dL (11.7-16.6) L 01/19/22 17:05 Hct 32.1 % (42.0-52.0) L 01/19/22 17:05 MCV 71.7 fl (80-94) L 01/19/22 17:05 MCH 22.8 pg (28.0-34.0) L 01/19/22 17:05 MCHC 31.8 g/dL (30.0-36.0) 01/19/22 17:05 RDW 18.3 % (12.1-15.1) H 01/19/22 17:05 Plt Count 322 10^3/cmm (130-400) 01/19/22 17:05 MPV 11.9 fL (7.4-10.4) H 01/19/22 17:05 Neut % (Auto) 61.3 % 01/19/22 17:05 Lymph % (Auto) 25.1 % 01/19/22 17:05 [place] % (Auto) 10.3 % 01/19/22 17:05 Eos % (Auto) 2.5 % 01/19/22 17:05 Baso % (Auto) 0.6 % 01/19/22 17:05 Neut # (Auto) 5.16 10^3/uL (1.8-7.7) 01/19/22 17:05 Lymph # (Auto) 2.1 10^3/uL (0.8-4.8) 01/19/22 17:05 [place] # (Auto) 0.9 10^3/uL (0.2-0.9) 01/19/22 17:05 Eos # (Auto) 0.2 10^3/uL (0.0-0.8) 01/19/22 17:05 Baso # (Auto) 0.1 10^3/uL (0.0-0.1) 01/19/22 17:05 Nucleated RBC % (auto) 0 % 01/19/22 17:05 Nucleated RBCs # 0.0 /100WBC 01/19/22 17:05 D-Dimer <= 0.27 ug/mIFEU (0-0.59) 01/19/22 18:30 Sodium 139 mmol/L (136-145) 01/19/22 17:05 Potassium 3.7 mmol/L (3.5-5.1) 01/19/22 17:05 Chloride 105 mmol/L (98-107) 01/19/22 17:05 Carbon Dioxide 25 mmol/L (22-29) 01/19/22 17:05 Anion Gap 12.7 (5-19) 01/19/22 17:05 BUN 13 mg/dL (6-20) 01/19/22 17:05 Creatinine 0.9 mg/dL (0.7-1.2) 01/19/22 17:05 GFR Calculation 91.7 mL/min (90-130) 01/19/22 17:05 Glucose 99 mg/dL (65-115) 01/19/22 17:05 Calculated Osmolality 288 mOsm/kg (285-295) 01/19/22 17:05 Calcium 9.0 mg/dL (8.5-10.5) 01/19/22 17:05 Troponin T Baseline 21 ng/L (0-15) H 01/19/22 17:05 Troponin T 120 Minute 20.76 ng/L (0-15) H 01/19/22 19:22 Delta Troponin T -0.24 ABS# (0-10) L 01/19/22 19:22 Imaging Data Other Imaging: Radiologist's impression: [address] [address] XRay Report Signed Patient: Alonso June Unit #: [id number] : 1975 Age/Sex: 46 / M ADM Date: 01/19/22 Loc: ER Room/Bed: Attending Dr: Ordering Provider/Ordering MD: Edwige Crystal MD Date of Service: 01/19/22 Procedure(s): XR chest 1V portable [id number] Accession Number(s): [id number] Report Number: [id number] PROCEDURE INFORMATION: Exam: XR Chest Exam date and time: 01/19/2022 5:44 PM Age: 46 years old Clinical indication: Angina; Additional info: Chest pain TECHNIQUE: Imaging protocol: Radiologic exam of the chest. Views: 1 view. COMPARISON: CR (CHEST, ) 01/16/2022 12:51 AM FINDINGS: Lungs: Unremarkable. No consolidation. Pleural spaces: Unremarkable. No pleural effusion. No pneumothorax. Heart/Mediastinum: Unremarkable. No cardiomegaly. Bones/joints: Unremarkable. XR/XR chest 1V portable [id number] IMPRESSION: No acute findings. ? Dictated By: Audie Landry MD Signed By: Audie Landry MD Signed Date/Time: 01/19/22 8768 DD/ 451 Discharge Plan Discharge Patient Disposition: Home Clinical Impression: Chest pain Condition: Stable Prescriptions: No Action clopidogrel 75 mg tablet 75 mg PO QAM Qty: 30 1RF gpcmfysjcs-dbaegvevxiznb-nbzy 50-325-40 mg tablet 2 tab PO BID PRN (Reason: Migraine Headache) Hold Instructions: interaction with aspirin albuterol sulfate [ProAir HFA] 90 mcg/actuation HFA aerosol inhaler 2 puff INHALATION Q4H PRN (Reason: Shortness Of Breath) 1 Days Qty: 30 0RF hydroxyzine HCl 25 mg tablet 25 mg PO BID PRN (Reason: nausea and vomiting) insulin glargine [Lantus Solostar U-100 Insulin] 100 unit/mL (3 mL) insulin pen 5 unit SUBCUT BEDTIME Qty: 15 0RF insulin aspart U-100 [Novolog Flexpen U-100 Insulin] 100 unit/mL (3 mL) insulin pen See Rx Instructions .ROUTE .COMPLEX Qty: 15 0RF Rx Instructions: Inject, 3 times daily, after meals, based on sliding scale provided pantoprazole [Protonix] 40 mg tablet,delayed release (DR/EC) 40 mg PO BID 30 Days Qty: 30 1RF Seroquel 50 mg Tablet 50 mg PO BEDTIME carvedilol 3.125 mg tablet 3.125 mg PO Q12H isosorbide mononitrate 60 mg tablet extended release 24 hr 120 mg PO BID aripiprazole 10 mg tablet 5 mg PO BEDTIME ondansetron HCl 4 mg tablet 4 mg PO Q6H PRN (Reason: nausea and vomiting) Qty: 20 0RF escitalopram oxalate 10 mg Tablet 10 mg PO DAILY 30 Days Qty: 30 1RF atorvastatin 40 mg tablet 40 mg PO BEDTIME 30 Days Qty: 30 1RF ondansetron HCl 4 mg tablet 4 mg PO Q8H PRN (Reason: Nausea And Vomiting) 30 Days Qty: 60 1RF aspirin 81 mg Tablet,Delayed Release (Dr/Ec) 81 mg PO QAM 30 Days Qty: 30 1RF nitroglycerin [Nitrostat] 0.4 mg Tablet, Sublingual 0.4 mg SUBLINGUAL Q5M PRN (Reason: Chest Pain) 30 Days Qty: 60 1RF Rx Instructions: do not exceed 3 doses per episode ranolazine 500 mg tablet extended release 12 hr 500 mg PO BID 30 Days Qty: 60 1RF methocarbamol 750 mg tablet 750 mg PO Q6H PRN (Reason: spasms) Qty: 20 0RF Discharge Orders: Discharge ED (Routine); Ordered 01/19/22 Ordered By: Edwige Crystal Referrals: Cecily Miller MD [Primary Care Provider] - Discharge Diet: Advance as tolerated Discharge Activity: Increase activity as tolerated Patient Instructions: Chest Pain (ED) Activity Restrictions/Additional Instructions: Come back to the emergency room if your chest pain worsens, have any fever or chills, worsening shortness of breath, worsening exertional lightheadedness, or any new or concerning complaints. Our human services case manager will have you follow-up with Cardiology in the next few days. You would be expected to have a phone call with our human services case manager who will put you on the schedule. You can expect a call from us in the next 2-3 days. If you don't hear from us, call us back in the emergency room at [phone]. Coding Level of Care Code ED Pediatric Psychologist for Rajivg Fwd Exam Comprehensive
[2022-01-19 18:22] LABS: Troponin(5th) Baseline 21 ng/L (0-15)
[2022-01-19 18:40] VITALS: RESP 21; O2SAT 99
[2022-01-19] MEDS: morphine 4 mg/mL SDV 1 mL IVP (18:40)
[2022-01-19] MEDS: aspirin 325 mg Tablet PO (18:40)
[2022-01-19 19:50] LABS: D Dimer <= 0.27 ug/mIFEU (0-0.59)
[2022-01-19 20:00] VITALS: BP 117/78; PULSE 75; RESP 12; O2SAT 98
[2022-01-19 20:32] LABS: Troponin 5 2HR 20.76 ng/L (0-15); Troponin 5 2HR Delta -0.24 ABS# (0-10)
[2022-01-19 21:07] VITALS: BP 117/78; PULSE 75; RESP 12; O2SAT 98
--- NOTE | 2022-01-20 09:02 | DCPLANNER ---
Addendum entered by Linda Payne 01/29/22 12:11: Patient had a follow up appointment scheduled for 01.22.22 with Isabelle Pedraza at [facility] - patient did not attend appointment. Original Note: operations program manager had message to schedule a follow up appointment for patient with ortho. operations program manager sent patients information to the front office staff at [facility]. Patients information will be printed and reviewed. Clinic will call patient with appointment information.
== END 2022-01-19 21:10 | disposition home or self-care (01) ==
PROVIDERS: Emergency Provider Emergency Medicine; PCP Internal Medicine
DX: R07.9 Chest pain, unspecified (principal); Z79.02 Long term (current) use of antithrombotics/antiplatelets; Z79.82 Long term (current) use of aspirin; Z79.4 Long term (current) use of insulin; I25.10 Atherosclerotic heart disease of native coronary artery without angina pectoris; Z86.73 Personal history of transient ischemic attack (TIA), and cerebral infarction without residual deficits; E11.9 Type 2 diabetes mellitus without complications; E78.5 Hyperlipidemia, unspecified; I10 Essential (primary) hypertension; Z87.891 Personal history of nicotine dependence
CPT/HCPCS: 36415; 71045; 80048; 84484; 85025; 85378; 93005; 96374; 99285; J2270

== ENCOUNTER 2022-01-20 08:23 | Emergency (ER) | payer OTHER, MEDICAID, SELFPAY ==
--- NOTE | 2022-01-20 08:31 | ECG_ITS ---
[facility] Test Date: 2022-01-20 Pat Name: Alonso June Department: Room: Gender: Male Client Support Coordinator: : 1975 Requested By: Kam Phillips Order Number: [id number] Janel MD: Anatoliy Jean Baptiste M.D. Measurements Intervals [place] Rate: 85 P: 66 MS: 155 QRS: 66 QRSD: 90 T: 69 QT: 337 QTc: 401 Interpretive Statements SINUS RHYTHM MODERATE VOLTAGE CRITERIA FOR LVH, CONSIDER NORMAL VARIANT [MEETS CRITERIA IN ONE OF: R(aVL), S(V1), R(V5), R(V5/V6)+S(V1)] INTERPRETATION BASED ON A DEFAULT AGE OF 40 YEARS Compared to ECG 01/19/2022 17:29:20 Sinus tachycardia no longer present Electronically Signed On 01-20-2022 21:09:55 CDT by Anatoliy Jean Baptiste M.D. [id number] f
[2022-01-20 08:33] VITALS: BP 143/79; PULSE 86; RESP 18; O2SAT 98; BMI 23.3
[2022-01-20] MEDS: ketorolac 60 mg/2 mL INJ IM (08:47)
[2022-01-20 09:11] VITALS: BP 123/81; PULSE 78; RESP 14
--- NOTE | 2022-01-20 10:18 | W.ED.CHESTPA ---
HPI - Chest Pain General: Chief Complaint: Chest Pain Stated Complaint: CHEST PAIN Time Seen by Provider: 01/20/22 08:25 Source: patient Mode of arrival: EMS Limitations: no limitations History of Present Illness: 46-year-old male presents emergency room again with complaint chest pain via EMS. Patient is well-known entity has been here daily the last several days with complaints of chest pain he has had multiple coronary angiograms in the last 6 months for total. He is also had multiple episodes where there is a concern of stroke all of his imaging has been negative. On at least 1 occasion he received tPA although he did not have any objective imaging proof of stroke on subsequent advanced imaging. Patient is complaining of chest pain on the left side at this time. However shortly after I interviewed him for his history his pain resolved before he did receive any medications and he was using his phone without any evidence of discomfort. MD complaint: chest pain Timing of current episode: episodic Prior episodes: Yes Onset: during rest Pain location: left chest Pain radiation: none Severity: similar to previous episodes Quality: sharp Relieving factors: nothing Exacerbating factors: nothing Associated symptoms: Reports dyspnea and nausea; Deny abdominal pain, diaphoresis, fever(s), leg edema, palpitations, sense of impending doom, syncope or vomiting Treatment prior to arrival: none Review of Systems Const: Denies: fever(s), chills, fatigue, malaise or diaphoresis ENMT: Denies: throat pain, ear or mastoid pain, nasal discharge or nasal congestion Card: Reports: chest pain; Denies: palpitations or syncope Resp: Reports: dyspnea GI: Reports: nausea; Denies: abdominal pain or vomiting : Denies: flank pain, difficulty urinating, dysuria, urinary frequency or urinary urgency Skin/Breast: Denies: rash or pruritus PFS ED PFSH: Medical History Angina pectoris, unstable Atherosclerotic heart disease of [place] coronary artery with unstable angina pectoris Benign essential HTN CAD (coronary artery disease) 9stents Chest pain CVA (cerebrovascular accident) Diabetes Dyslipidemia (high LDL; low HDL) Former smoker HTN (hypertension) Surgical History History of appendectomy Family History Other No pertinent family history Social History Smoking and tobacco status: former smoker Alcohol intake: never Housing: House Physical Exam Const: COMMON NORMALS: no acute distress GENERAL APPEARANCE: cooperative and comfortable ORIENTATION/CONSCIOUSNESS: Yes awake, Yes oriented to person, Yes oriented to place and Yes oriented to time HENMT: COMMON NORMALS: normocephalic and atraumatic HEAD & SCALP: normocephalic and atraumatic Resp: COMMON NORMALS: normal respiratory effort, No retractions, No use of accessory muscles and clear to auscultation bilaterally AUSCULTATION: clear to auscultation bilaterally Cardio: COMMON NORMALS: regular rate, regular rhythm and No murmurs present (Cardio) RATE: regular rate RHYTHM: regular rhythm GI: COMMON NORMALS: Soft to palpation and No hepatosplenomegaly present AUSCULTATION: Yes normoactive bowel sounds PALPATION: Yes Soft to palpation, No Tenderness to palpation present (GI), No Guarding due to palpation present (GI) and Yes No hepatosplenomegaly present Extremity: COMMON NORMALS: normal to inspection, capillary refill normal, no clubbing, cyanosis or edema, no calf tenderness and no pedal edema Neuro: SENSORIUM/ORIENTATION: Yes oriented to person, Yes oriented to place and Yes oriented to time Skin: COMMON NORMALS: no rashes or lesions noted GENERAL SKIN EXAM: no rashes or lesions noted Course Vital Signs: Vital signs: Vital Signs Pulse Rate 78 01/20/22 09:11 Respiratory Rate 14 01/20/22 09:11 Blood Pressure 123/81 01/20/22 09:11 Pulse Oximetry 98 01/20/22 08:33 Oxygen Delivery Me thod 01/20/22 08:33 MDM - Chest Pain Medical Decision Making Mr. 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 He has had 4 coronary angiograms since late June of this year. None of which has shown any acute disease. Unfortunately does have a history of a previous stent that stent was patent. He has single episode of elevated troponin was present but he had no findings on angiogram done shortly after that. He is also had multiple CTs of the head and chest on all of which have been negative. At this point after discussing with him his pain ceased before any further interventions. I am very concerned for this patient if this continues at some point he will have more procedures that may result in iatrogenic injury. He certainly has had significant exposure to dye and radiation this year. Have discussed with cardiology they are in agreement that we should minimize further interventions at this point absent any significant new findings. EKG is unremarkable we will discharge patient back to home follow-up with cardiology. Medical Records I reviewed the patient's medical records. Lab Data I reviewed the patient's lab results. Discharge Plan Discharge Patient Disposition: Home Clinical Impression: Chest pain, non-cardiac Condition: Stable Prescriptions: No Action clopidogrel 75 mg tablet 75 mg PO QAM Qty: 30 1RF mvivsonpyu-wacojammxkpml-mtdn 50-325-40 mg tablet 2 tab PO BID PRN (Reason: Migraine Headache) Hold Instructions: interaction with aspirin albuterol sulfate [ProAir HFA] 90 mcg/actuation HFA aerosol inhaler 2 puff INHALATION Q4H PRN (Reason: Shortness Of Breath) 1 Days Qty: 30 0RF hydroxyzine HCl 25 mg tablet 25 mg PO BID PRN (Reason: nausea and vomiting) carvedilol 3.125 mg Tablet 6.25 mg PO Q12H 30 Days Qty: 60 1RF isosorbide mononitrate 60 mg tablet extended release 24 hr 90 mg PO BID Qty: 60 0RF Lantus Solostar U-100 Insulin 100 unit/mL (3 mL) insulin pen 5 unit SUBCUT BEDTIME Qty: 15 0RF Novolog Flexpen U-100 Insulin 100 unit/mL (3 mL) insulin pen See Rx Instructions .ROUTE .COMPLEX Qty: 15 0RF Rx Instructions: Inject, 3 times daily, after meals, based on sliding scale provided Protonix 40 mg tablet,delayed release (DR/EC) 40 mg PO BID 30 Days Qty: 30 1RF escitalopram oxalate 10 mg Tablet 10 mg PO DAILY 30 Days Qty: 30 1RF aripiprazole 10 mg Tablet 5 mg PO DAILY 30 Days Qty: 30 1RF atorvastatin 40 mg tablet 40 mg PO BEDTIME 30 Days Qty: 30 1RF ondansetron HCl 4 mg tablet 4 mg PO Q8H PRN (Reason: Nausea And Vomiting) 30 Days Qty: 60 1RF aspirin 81 mg Tablet,Delayed Release (Dr/Ec) 81 mg PO QAM 30 Days Qty: 30 1RF nitroglycerin [Nitrostat] 0.4 mg Tablet, Sublingual 0.4 mg SUBLINGUAL Q5M PRN (Reason: Chest Pain) 30 Days Qty: 60 1RF Rx Instructions: do not exceed 3 doses per episode ranolazine 500 mg tablet extended release 12 hr 500 mg PO BID 30 Days Qty: 60 1RF methocarbamol 750 mg tablet 750 mg PO Q6H PRN (Reason: spasms) Qty: 20 0RF ondansetron 4 mg tablet,disintegrating 4 mg PO Q6H PRN (Reason: nausea and vomiting) Qty: 14 0RF Discharge Orders: Discharge ED (Routine); Ordered 01/20/22 Ordered By: Kam Martinez Referrals: Cecily Miller MD [Primary Care Provider] - Coding Level of Care Code ED Senior Industrial Engineer for Marcelino Stephen
== END 2022-01-20 09:16 | disposition home or self-care (01) ==
PROVIDERS: Emergency Provider Family Medicine; PCP Internal Medicine
DX: R07.89 Other chest pain (principal); Z79.82 Long term (current) use of aspirin; Z79.4 Long term (current) use of insulin; I25.10 Atherosclerotic heart disease of native coronary artery without angina pectoris; Z86.73 Personal history of transient ischemic attack (TIA), and cerebral infarction without residual deficits; E11.9 Type 2 diabetes mellitus without complications; E78.5 Hyperlipidemia, unspecified; I10 Essential (primary) hypertension; Z87.891 Personal history of nicotine dependence
CPT/HCPCS: 93005; 96372; 99284; J1885

== ENCOUNTER 2022-01-20 10:30 | Emergency (ER) | payer OTHER, SELFPAY ==
--- NOTE | 2022-01-20 11:06 | ED_ITS ---
HPI - Chest Pain General: Chief Complaint: Chest Pain Stated Complaint: L SIDED CHEST PAIN Time Seen by Provider: 01/20/22 10:36 Source: patient Mode of arrival: EMS History of Present Illness: 46-year-old male who was released from the ER within the last hour. He would only walk down the street to the local gas station and EMS was called after he had had a syncopal episode. He presents again complaining of chest pain. As per previous notes and history patient has had 4 angiograms this year all of which were unremarkable. He has had stents in the past according to the notes he has 2 stents. Patient reports he has had 5 heart heart attacks within the past year and he just states he has 6 stents in his heart. The most recent angiogram done in our facility identified 2 stents within his heart 1 in the LAD and 1 and diagonal. He is still on carvedilol and clopidogrel which she states he has been taking. Additionally he has been to the emergency room multiple times and at various times has presented with strokelike symptoms 1 time he was treated with tPA none of the advanced imaging is ever shown any definitive new strokes. Most recently at the time of his cath 2 weeks ago as they were about to do the cardiac catheterization he developed left-sided weakness and it was stopped a stroke alert was called there was no intervention all of his symptoms resolved and they proceeded to heart catheterization which was negative. MD complaint: chest pain Onset (ago): minute(s) Timing of current episode: episodic Prior episodes: Yes Onset: during rest Pain location: left chest Pain radiation: none Relieving factors: nothing Exacerbating factors: nothing Associated symptoms: Deny abdominal pain, dyspnea, fever(s), nausea, palpitati ons or vomiting Review of Systems Const: Denies: fever(s), chills, body aches, change in appetite, fatigue or malaise ENMT: Denies: throat pain, ear or mastoid pain, nasal discharge or nasal congestion Card: Reports: chest pain; Denies: palpitations, edema, dyspnea on exertion or orthopnea Resp: Denies: dyspnea, productive cough or non-productive cough GI: Denies: abdominal pain, nausea, vomiting, hematemesis, coffee ground emesis, diarrhea, constipation, bloating, hematochezia or melena : Denies: flank pain, difficulty urinating, dysuria, urinary frequency or urinary urgency Skin/Breast: Denies: rash or pruritus PFSH ED PFSH: Medical History Angina pectoris, unstable Atherosclerotic heart disease of [place] coronary artery with unstable angina pectoris Benign essential HTN CAD (coronary artery disease) 9stents Chest pain CVA (cerebrovascular accident) Diabetes Dyslipidemia (high LDL; low HDL) Former smoker HTN (hypertension) Surgical History History of appendectomy Family History Other No pertinent family history Social History Smoking and tobacco status: former smoker Alcohol intake: never Housing: House Physical Exam Const: COMMON NORMALS: no acute distress GENERAL APPEARANCE: cooperative and comfortable ORIENTATION/CONSCIOUSNESS: Yes awake, Yes oriented to person, Yes oriented to place and Yes oriented to time HENMT: COMMON NORMALS: normocephalic, atraumatic and hearing grossly normal bilaterally HEAD & SCALP: normocephalic and atraumatic Resp: COMMON NORMALS: normal respiratory effort, No retractions, No use of accessory muscles and clear to auscultation bilaterally AUSCULTATION: clear to auscultation bilaterally Cardio: COMMON NORMALS: regular rate, regular rhythm and No murmurs present (Cardio) RATE: regular rate RHYTHM: regular rhythm GI: COMMON NORMALS: Soft to palpation and No hepatosplenomegaly present AUSCULTATION: Yes normoactive bowel sounds PALPATION: Yes Soft to palpation, No Tenderness to palpation present (GI), No Guarding due to palpation present (GI) and Yes No hepatosplenomegaly present Extremity: COMMON NORMALS: normal to inspection, capillary refill normal, no clubbing, cyanosis or edema, no calf tenderness and no pedal edema Neuro: SENSORIUM/ORIENTATION: Yes oriented to person, Yes oriented to place and Yes oriented to time Skin: COMMON NORMALS: no rashes or lesions noted GENERAL SKIN EXAM: no rash es or lesions noted Course Vital Signs: Vital signs: Vital Signs Pulse Rate 77 01/20/22 13:34 Respiratory Rate 19 H 01/20/22 13:34 Blood Pressure 130/69 01/20/22 13:34 Pulse Oximetry 99 01/20/22 13:34 Oxygen Delivery Me thod 01/20/22 12:06 MDM - Chest Pain Medical Decision Making Nathan returns to the ER. His case is difficult because he has some known coronary artery disease but has had 4 angiograms this year which are normal. Lab work done at this visit is unremarkable. EKG does not show any changes. At this time there is no evidence of any significant abnormality. Discussed with cardiology in the past they do not feel that further work-up would be helpful given his angiograms. We will go ahead and discharge patient home return to the emergency room if he has problems. Medical Records I reviewed the patient's medical records. Lab Data I reviewed the patient's lab results. : 01/20/22 10:56 01/20/22 10:56 Laboratory Results WBC 7.6 10^3/uL (4.0-10.0) 01/20/22 10:56 RBC 4.69 10^6/uL (4.1-5.3) 01/20/22 10:56 Hgb 10.6 g/dL (11.7-16.6) L 01/20/22 10:56 Hct 34.0 % (42.0-52.0) L 01/20/22 10:56 MCV 72.5 fl (80-94) L 01/20/22 10:56 MCH 22.6 pg (28.0-34.0) L 01/20/22 10:56 MCHC 31.2 g/dL (30.0-36.0) 01/20/22 10:56 RDW 18.2 % (12.1-15.1) H 01/20/22 10:56 Plt Count 326 10^3/cmm (130-400) 01/20/22 10:56 MPV 11.5 fL (7.4-10.4) H 01/20/22 10:56 Neut % (Auto) 62.7 % 01/20/22 10:56 Lymph % (Auto) 22.6 % 01/20/22 10:56 [place]gs % (Auto) 12.0 % 01/20/22 10:56 Eos % (Auto) 1.7 % 01/20/22 10:56 Baso % (Auto) 0.7 % 01/20/22 10:56 Neut # (Auto) 4.74 10^3/uL (1.8-7.7) 01/20/22 10:56 Lymph # (Auto) 1.7 10^3/uL (0.8-4.8) 01/20/22 10:56 [place] # (Auto) 0.9 10^3/uL (0.2-0.9) 01/20/22 10:56 Eos # (Auto) 0.1 10^3/uL (0.0-0.8) 01/20/22 10:56 Baso # (Auto) 0.1 10^3/uL (0.0-0.1) 01/20/22 10:56 Nucleated RBC % (auto) 0 % 01/20/22 10:56 Nucleated RBCs # 0.0 /100WBC 01/20/22 10:56 Sodium 140 mmol/L (136-145) 01/20/22 10:56 Potassium 3.5 mmol/L (3.5-5.1) 01/20/22 10:56 Chloride 104 mmol/L (98-107) 01/20/22 10:56 Carbon Dioxide 23 mmol/L (22-29) 01/20/22 10:56 Anion Gap 16.5 (5-19) 01/20/22 10:56 BUN 11 mg/dL (6-20) 01/20/22 10:56 Creatinine 0.9 mg/dL (0.7-1.2) 01/20/22 10:56 GFR Calculation 91.7 mL/min (90-130) 01/20/22 10:56 Glucose 89 mg/dL (65-115) 01/20/22 10:56 Calculated Osmolality 289 mOsm/kg (285-295) 01/20/22 10:56 Calcium 9.1 mg/dL (8.5-10.5) 01/20/22 10:56 Total Bilirubin 0.5 mg/dL (0.15-1.2) 01/20/22 10:56 AST 10 U/L (0-40) 01/20/22 10:56 ALT 6 U/L (0-41) 01/20/22 10:56 Alkaline Phosphatase 74 IU/L (40-130) 01/20/22 10:56 Troponin T Gen 5 ng/L 19 ng/L (0-15) H 01/20/22 10:56 Total Protein 6.7 g/dL (6.6-8.7) 01/20/22 10:56 Albumin 4.1 g/dL (3.5-5.2) 01/20/22 10:56 Globulin 2.6 g/dL (1.3-4.6) 01/20/22 10:56 Discharge Plan Discharge Patient Disposition: Home Clinical Impression: Atypical chest pain Condition: Stable Prescriptions: No Action clopidogrel 75 mg tablet 75 mg PO QAM Qty: 30 1RF kznrpzscme-jjhdykxfpbyjf-acqz 50-325-40 mg tablet 2 tab PO BID PRN (Reason: Migraine Headache) Hold Instructions: interaction with aspirin albuterol sulfate [ProAir HFA] 90 mcg/actuation HFA aerosol inhaler 2 puff INHALATION Q4H PRN (Reason: Shortness Of Breath) 1 Days Qty: 30 0RF hydroxyzine HCl 25 mg tablet 25 mg PO BID PRN (Reason: nausea and vomiting) insulin glargine [Lantus Solostar U-100 Insulin] 100 unit/mL (3 mL) insulin pen 5 unit SUBCUT BEDTIME Qty: 15 0RF insulin aspart U-100 [Novolog Flexpen U-100 Insulin] 100 unit/mL (3 mL) insulin pen See Rx Instructions .ROUTE .COMPLEX Qty: 15 0RF Rx Instructions: Inject, 3 times daily, after meals, based on sliding scale provided pantoprazole [Protonix] 40 mg tablet,delayed release (DR/EC) 40 mg PO BID 30 Days Qty: 30 1RF Seroquel 50 mg Tablet 50 mg PO BEDTIME carvedilol 3.125 mg tablet 3.125 mg PO Q12H isosorbide mononitrate 60 mg tablet extended release 24 hr 120 mg PO BID aripiprazole 10 mg tablet 5 mg PO BEDTIME ondansetron HCl 4 mg tablet 4 mg PO Q6H PRN (Reason: nausea and vomiting) Qty: 20 0RF escitalopram oxalate 10 mg Tablet 10 mg PO DAILY 30 Days Qty: 30 1RF atorvastatin 40 mg tablet 40 mg PO BEDTIME 30 Days Qty: 30 1RF ondansetron HCl 4 mg tablet 4 mg PO Q8H PRN (Reason: Nausea And Vomiting) 30 Days Qty: 60 1RF aspirin 81 mg Tablet,Delayed Release (Dr/Ec) 81 mg PO QAM 30 Days Qty: 30 1RF nitroglycerin [Nitrostat] 0.4 mg Tablet, Sublingual 0.4 mg SUBLINGUAL Q5M PRN (Reason: Chest Pain) 30 Days Qty: 60 1RF Rx Instructions: do not exceed 3 doses per episode ranolazine 500 mg tablet extended release 12 hr 500 mg PO BID 30 Days Qty: 60 1RF methocarbamol 750 mg tablet 750 mg PO Q6H PRN (Reason: spasms) Qty: 20 0RF Discharge Orders: Discharge ED (Routine); Ordered 01/20/22 Ordered By: Kam Martinez Referrals: Cecily Miller MD [Primary Care Provider] - Patient Instructions: Opioid Safety Coding Level of Care Code ED Warehouse Logistics Coordinator for Marcelino Stephen
--- NOTE | 2022-01-20 11:08 | ECG_ITS ---
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 Measurements Intervals [place] Rate: 82 P: 74 [place]: 142 QRS: 76 QRSD: 89 T: 81 QT: 353 QTc: 414 Interpretive Statements SINUS RHYTHM Compared to ECG 01/20/2022 08:35:39 No significant changes Electronically Signed On 01-20-2022 21:10:40 CDT by Anatoliy Jean Baptiste M.D. [email or web address]/[id number]
[2022-01-20 11:09] LABS: Basophils # 0.1 10^3/uL (0.0-0.1); Basophils % 0.7 %; Eosinophils # 0.1 10^3/uL (0.0-0.8); Eosinophils % 1.7 %; Hemoglobin 10.6 g/dL (11.7-16.6); Lymphocytes # 1.7 10^3/uL (0.8-4.8); Lymphocytes % 22.6 %; Mean Corpuscular HGB Conc 31.2 g/dL (30.0-36.0); Mean Corpuscular Hemoglobin 22.6 pg (28.0-34.0); Mean Corpuscular Volume 72.5 fl (80-94); Mean Platelet Volume 11.5 fL (7.4-10.4); Monocytes # 0.9 10^3/uL (0.2-0.9); Neutrophils # 4.74 10^3/uL (1.8-7.7); Neutrophils % 62.7 %; Nucleated Red Blood Cells % 0 %; Platelet Count 326 10^3/cmm (130-400); Red Blood Count 4.69 10^6/uL (4.1-5.3); Red Cell Distribution Width 18.2 % (12.1-15.1); White Blood Count 7.6 10^3/uL (4.0-10.0)
[2022-01-20] MEDS: LORazepam 2 mg Tablet PO (11:18)
[2022-01-20 11:22] VITALS: BP 130/69; PULSE 69; RESP 14; O2SAT 100
[2022-01-20 11:35] LABS: Troponin T (5th) Once 19 ng/L (0-15)
[2022-01-20 11:43] LABS: Alanine Aminotransferase 6 U/L (0-41); Albumin Level 4.1 g/dL (3.5-5.2); Alkaline Phosphatase 74 IU/L (40-130); Anion Gap 16.5 (5-19); Aspartate Amino Transferase 10 U/L (0-40); Blood Urea Nitrogen 11 mg/dL (6-20); Calcium 9.1 mg/dL (8.5-10.5); Carbon Dioxide 23 mmol/L (22-29); Chloride 104 mmol/L (98-107); Globulin 2.6 g/dL (1.3-4.6); Glomerular Filtration Rate 91.7 mL/min (90-130); Glucose 89 mg/dL (65-115); Osmolality Calculated 289 mOsm/kg (285-295); Potassium 3.5 mmol/L (3.5-5.1); Sodium 140 mmol/L (136-145); Total Bilirubin 0.5 mg/dL (0.15-1.2); Total Protein 6.7 g/dL (6.6-8.7)
[2022-01-20 12:06] VITALS: BP 130/69; PULSE 80; RESP 17; O2SAT 100
[2022-01-20 13:34] VITALS: BP 130/69; PULSE 77; RESP 19; O2SAT 99
--- NOTE | 2022-01-30 11:05 | DCPLANNER ---
Addendum entered by Linda Payne 01/30/22 11:16: Natalia from [facility] called porter sample case stating that she spoke with patient about starting services at [facility] and patient refused services. After speaking with Natalia from [facility] about the amount of visits that patient has had in the ER. Natalia is going to put a referral in for the ERE program that [facility] has for more of the high utilizers of the ER. Original Note: assistant import manager had message to refer patient to [facility]. assistant import manager sent patients information to Natalia Gutierrez at [facility]. Patients information will be printed and reviewed. Clinic will call patient with appointment information.
== END 2022-01-20 13:35 | disposition home or self-care (01) ==
PROVIDERS: Emergency Provider Family Medicine; PCP Internal Medicine
DX: R07.89 Other chest pain (principal); Z79.02 Long term (current) use of antithrombotics/antiplatelets; Z79.82 Long term (current) use of aspirin; Z79.4 Long term (current) use of insulin; I25.10 Atherosclerotic heart disease of native coronary artery without angina pectoris; Z86.73 Personal history of transient ischemic attack (TIA), and cerebral infarction without residual deficits; E11.9 Type 2 diabetes mellitus without complications; E78.5 Hyperlipidemia, unspecified; I10 Essential (primary) hypertension; Z87.891 Personal history of nicotine dependence
CPT/HCPCS: 80053; 84484; 85025; 93005; 99284

== ENCOUNTER 2022-01-23 14:08 | Emergency (ER) | payer OTHER, SELFPAY ==
[2022-01-23 14:23] VITALS: BP 143/73; PULSE 88; RESP 16; TEMP 36.7; O2SAT 99
[2022-01-23 14:25] VITALS: BP 146/86; PULSE 100; RESP 16; O2SAT 99
--- NOTE | 2022-01-23 14:32 | ECG_ITS ---
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 Measurements Intervals [place] Rate: 87 P: 65 [place]: 146 QRS: 65 QRSD: 90 T: 56 QT: 340 QTc: 410 Interpretive Statements SINUS RHYTHM MODERATE VOLTAGE CRITERIA FOR LVH, CONSIDER NORMAL VARIANT [MEETS CRITERIA IN ONE OF: R(aVL), S(V1), R(V5), R(V5/V6)+S(V1)] Compared to ECG 01/20/2022 11:08:14 No significant changes Electronically Signed On 01-24-2022 18:50:36 CDT by Anatoliy Jean Baptiste M.D. [email or web address] Solutionsmemorial [email or web address].Social [employer] 1/store/[id number]
--- NOTE | 2022-01-23 14:35 | ED_ITS ---
HPI - Nausea/Vomiting/Diarrhea General: Chief complaint: Nausea/Vomiting/Diarrhea Stated complaint: headache, N/V Weakness Time Seen by Provider: 01/23/22 14:30 Source: patient Mode of arrival: ambulatory History of Present Illness: 46-year-old male returns to the emergency room yet again. He presents today with nausea vomitingFor 3 days.. He says he has a headache as well. He has no focal neurologic deficits. He denies any chest pain or shortness of breath at this time. Mr. June is a very difficult case and that he does truly have some underlying medical illnesses however he comes in with so many varied complaints that have turned out to be malingering it is difficult to distinguish what is actually going on with him. We have serious concern about the risk of iatrogenic injury through over use of diagnostic te sting. Recently we have taken the approach with Mr. June to minimize our evaluations to avoid injury unless there is a significant change in his presentation. We discussed this with him as well that were very concerned about his frequent visits and the risk of recurrent testing and/or invasive testing that may actually precipitate medical issues for him. MD elicited complaint: nausea and vomiting Onset (ago): day(s) Description of vomiting: food contents and watery Associated nausea: Yes Associated abdominal pain: Yes Location of pain: Diffuse Pain consistency: intermittent Severity: moderate Quality: cramping Exacerbating factors: none Relieving factors: none Associated symtoms: Reports anorexia and nausea; Denies altered mental status, anxiety, bloating, change in vision, chest pain, cough, diaphoresis, decreased urine output, dizziness, dysuria, epistaxis, fatigue, fecal incontinence, fevers/chills, headache(s), malaise, myalgias, numbness, palpitations, rash, short of breath, syncope, tenesmus, tinnitus or weakness Review of Systems Const: Denies: fever(s), chills, fatigue, malaise or diaphoresis Eyes: Denies: change in vision ENMT: Denies: tinnitus or epistaxis Card: Denies: chest pain, palpitations or syncope Resp: Denies: dyspnea, productive cough or non-productive cough GI: Reports: abdominal pain, nausea and vomiting; Denies: hematemesis, bloating, fecal incontinence or hematochezia : Denies: flank pain, difficulty urinating, dysuria, urinary frequency or urinary urgency Skin/Breast: Denies: rash or pruritus Neuro: Denies: headache(s) or dizziness Psych: Denies: anxiety PFSH ED PFSH: Medical History Angina pectoris, unstable Atherosclerotic heart disease of [place] coronary artery with unstable angina pectoris Benign essential HTN CAD (coronary artery disease) 9stents Chest pain CVA (cerebrovascular accident) Diabetes Dyslipidemia (high LDL; low HDL) Former smoker HTN (hypertension) Surgical History History of appendectomy Family History Other No pertinent family history Social History Smoking and tobacco status: former smoker Alcohol intake: never Housing: House Physical Exam Const: EXAM LIMITATIONS: no altered mental status GENERAL APPEARANCE: cooperative and comfortable ORIENTATION/CONSCIOUSNESS: Yes awake, Yes oriented to person, Yes oriented to place and Yes oriented to time HENMT: COMMON NORMALS: normocephalic, atraumatic, hearing grossly normal bilaterally, external ears normal, EAC's normal, TM's normal bilaterally, Normal nasal mucous membranes and turbinates present, moist oral mucous membranes and oropharynx normal HEAD & SCALP: normocephalic and atraumatic NOSE: Normal nasal mucous membranes and turbinates present EXTERNAL EAR: Yes external ears normal EXTERNAL AUDITORY CANAL: EAC's normal TYMPANIC MEMBRANE: TM's normal bilaterally Eye: COMMON NORMALS: Equal, round and reactive pupils present, EOMs intact bilaterally, conjunctivae normal and no scleral icterus CONJUNCTIVA: Yes conjunctivae normal PUPIL: Yes Equal, round and reactive pupils present Neck/C-Spine: COMMON NORMALS: full ROM, no lymphadenopathy, supple and no JVD Lymph: LYMPHATIC: no lymphadenopathy noted and no lymphedema noted Resp: COMMON NORMALS: normal respiratory effort, No retractions, No use of accessory muscles and clear to auscultation bilaterally AUSCULTATION: clear to auscultation bilaterally Cardio: COMMON NORMALS: no JVD, regular rate, regular rhythm and No murmurs present (Cardio) RATE: regular rate RHYTHM: regular rhythm GI: COMMON NORMALS: Soft to palpation and No hepatosplenomegaly present AUSCULTATION: Yes normoactive bowel sounds PALPATION: Yes Soft to palpation, No Tenderness to palpation present (GI), No Guarding due to palpation present (GI) and Yes No hepatosplenomegaly present Extremity: COMMON NORMALS: normal to inspection, capillary refill normal, no clubbing, cyanosis or edema, no calf tenderness and no pedal edema Neuro: SENSORIUM/ORIENTATION: Yes oriented to person, Yes oriented to place an d Yes oriented to time Skin: COMMON NORMALS: no rashes or lesions noted GENERAL SKIN EXAM: no rashes or lesions noted Course Vital Signs: Vital signs: Vital Signs Temperature 98.0 F 01/23/22 14:23 Pulse Rate 78 01/23/22 16:38 Respiratory Rate 16 01/23/22 16:38 Blood Pressure 117/57 01/23/22 16:38 Pulse Oximetry 99 01/23/22 16:08 Oxygen Delivery Me thod 01/23/22 16:08 MDM - Nausea/Vomiting/Diarrhea Medical Decision Making Pt returns frequently for same complaints. Abd exam is benign. WIll d/c home Medical Records I reviewed the patient's medical records. Lab Data I reviewed the patient's lab results. : 01/23/22 15:05 01/23/22 15:05 Laboratory Results WBC 6.7 10^3/uL (4.0-10.0) 01/23/22 15:05 RBC 4.53 10^6/uL (4.1-5.3) 01/23/22 15:05 Hgb 10.4 g/dL (11.7-16.6) L 01/23/22 15:05 Hct 32.9 % (42.0-52.0) L 01/23/22 15:05 MCV 72.6 fl (80-94) L 01/23/22 15:05 MCH 23.0 pg (28.0-34.0) L 01/23/22 15:05 MCHC 31.6 g/dL (30.0-36.0) 01/23/22 15:05 RDW 17.7 % (12.1-15.1) H 01/23/22 15:05 Plt Count 250 10^3/cmm (130-400) 01/23/22 15:05 MPV 11.8 fL (7.4-10.4) H 01/23/22 15:05 Neut % (Auto) 61.4 % 01/23/22 15:05 Lymph % (Auto) 24.4 % 01/23/22 15:05 [place] % (Auto) 11.1 % 01/23/22 15:05 Eos % (Auto) 2.5 % 01/23/22 15:05 Baso % (Auto) 0.3 % 01/23/22 15:05 Neut # (Auto) 4.09 10^3/uL (1.8-7.7) 01/23/22 15:05 Lymph # (Auto) 1.6 10^3/uL (0.8-4.8) 01/23/22 15:05 [place] # (Auto) 0.7 10^3/uL (0.2-0.9) 01/23/22 15:05 Eos # (Auto) 0.2 10^3/uL (0.0-0.8) 01/23/22 15:05 Baso # (Auto) 0.0 10^3/uL (0.0-0.1) 01/23/22 15:05 Nucleated RBC % (auto) 0 % 01/23/22 15:05 Nucleated RBCs # 0.0 /100WBC 01/23/22 15:05 Sodium 142 mmol/L (136-145) 01/23/22 15:05 Potassium 4.0 mmol/L (3.5-5.1) 01/23/22 15:05 Chloride 106 mmol/L (98-107) 01/23/22 15:05 Carbon Dioxide 22 mmol/L (22-29) 01/23/22 15:05 Anion Gap 18.0 (5-19) 01/23/22 15:05 BUN 16 mg/dL (6-20) 01/23/22 15:05 Creatinine 1.2 mg/dL (0.7-1.2) 01/23/22 15:05 GFR Calculation 65.8 mL/min (90-130) L 01/23/22 15:05 Glucose 89 mg/dL (65-115) 01/23/22 15:05 Calculated Osmolality 295 mOsm/kg (285-295) 01/23/22 15:05 Calcium 9.0 mg/dL (8.5-10.5) 01/23/22 15:05 Total Bilirubin 0.4 mg/dL (0.15-1.2) 01/23/22 15:05 AST 13 U/L (0-40) 01/23/22 15:05 ALT 6 U/L (0-41) 01/23/22 15:05 Alkaline Phosphatase 75 IU/L (40-130) 01/23/22 15:05 Total Protein 6.8 g/dL (6.6-8.7) 01/23/22 15:05 Albumin 4.4 g/dL (3.5-5.2) 01/23/22 15:05 Globulin 2.4 g/dL (1.3-4.6) 01/23/22 15:05 Discharge Plan Discharge Patient Disposition: Home Clinical Impression: Abdominal pain Condition: Stable Prescriptions: New ondansetron HCl 4 mg tablet 4 mg PO Q6H PRN (Reason: nausea and vomiting) Qty: 20 0RF No Action clopidogrel 75 mg tablet 75 mg PO QAM Qty: 30 1RF juxxnzogwv-tcvnpmwtwmbaz-ehjv 50-325-40 mg tablet 2 tab PO BID PRN (Reason: Migraine Headache) Hold Instructions: interaction with aspirin albuterol sulfate [ProAir HFA] 90 mcg/actuation HFA aerosol inhaler 2 puff INHALATION Q4H PRN (Reason: Shortness Of Breath) 1 Days Qty: 30 0RF hydroxyzine HCl 25 mg tablet 25 mg PO BID PRN (Reason: nausea and vomiting) insulin glargine [Lantus Solostar U-100 Insulin] 100 unit/mL (3 mL) insulin pen 5 unit SUBCUT BEDTIME Qty: 15 0RF insulin aspart U-100 [Novolog Flexpen U-100 Insulin] 100 unit/mL (3 mL) insulin pen See Rx Instructions .ROUTE .COMPLEX Qty: 15 0RF Rx Instructions: Inject, 3 times daily, after meals, based on sliding scale provided pantoprazole [Protonix] 40 mg tablet,delayed release (DR/EC) 40 mg PO BID 30 Days Qty: 30 1RF Seroquel 50 mg Tablet 50 mg PO BEDTIME carvedilol 3.125 mg tablet 3.125 mg PO Q12H isosorbide mononitrate 60 mg tablet extended release 24 hr 120 mg PO BID aripiprazole 10 mg tablet 5 mg PO BEDTIME escitalopram oxalate 10 mg Tablet 10 mg PO DAILY 30 Days Qty: 30 1RF atorvastatin 40 mg tablet 40 mg PO BEDTIME 30 Days Qty: 30 1RF ondansetron HCl 4 mg tablet 4 mg PO Q8H PRN (Reason: Nausea And Vomiting) 30 Days Qty: 60 1RF aspirin 81 mg Tablet,Delayed Release (Dr/Ec) 81 mg PO QAM 30 Days Qty: 30 1RF nitroglycerin [Nitrostat] 0.4 mg Tablet, Sublingual 0.4 mg SUBLINGUAL Q5M PRN (Reason: Chest Pain) 30 Days Qty: 60 1RF Rx Instructions: do not exceed 3 doses per episode ranolazine 500 mg tablet extended release 12 hr 500 mg PO BID 30 Days Qty: 60 1RF methocarbamol 750 mg tablet 750 mg PO Q6H PRN (Reason: spasms) Qty: 20 0RF Discharge Orders: Discharge ED (Routine); Ordered 01/23/22 Ordered By: Kam Martinez Referrals: Cecily Miller MD [Primary Care Provider] - Discharge Diet: Full LIquid Discharge Activity: Increase activity as tolerated Patient Instructions: Abdominal Pain (ED), Opioid Safety Activity Restrictions/Additional Instructions: Full liquid diet for 24 to 48 hours advance as tolerated use ondansetron as needed Coding Level of Care Code ED Street [employer] Serv[employer] for Marcelino Fwd Exam Comprehensive
[2022-01-23 14:55] VITALS: BP 146/86; PULSE 99; RESP 16; O2SAT 99
[2022-01-23 15:13] LABS: Basophils % 0.3 %; Eosinophils # 0.2 10^3/uL (0.0-0.8); Eosinophils % 2.5 %; Hematocrit 32.9 % (42.0-52.0); Hemoglobin 10.4 g/dL (11.7-16.6); Lymphocytes # 1.6 10^3/uL (0.8-4.8); Lymphocytes % 24.4 %; Mean Corpuscular HGB Conc 31.6 g/dL (30.0-36.0); Mean Corpuscular Volume 72.6 fl (80-94); Mean Platelet Volume 11.8 fL (7.4-10.4); Monocytes # 0.7 10^3/uL (0.2-0.9); Monocytes % 11.1 %; Neutrophils # 4.09 10^3/uL (1.8-7.7); Neutrophils % 61.4 %; Nucleated Red Blood Cells % 0 %; Platelet Count 250 10^3/cmm (130-400); Red Blood Count 4.53 10^6/uL (4.1-5.3); Red Cell Distribution Width 17.7 % (12.1-15.1); White Blood Count 6.7 10^3/uL (4.0-10.0)
[2022-01-23] MEDS: sodium chloride 0.9% 1,000 ML 999 ML IV (15:35)
[2022-01-23] MEDS: ondansetron 2 mg/ML SDV 2 mL 4 MG IVP (15:35)
[2022-01-23 15:54] LABS: Slide Review Slide Review Perform
[2022-01-23 15:57] LABS: Alanine Aminotransferase 6 U/L (0-41); Albumin Level 4.4 g/dL (3.5-5.2); Alkaline Phosphatase 75 IU/L (40-130); Blood Urea Nitrogen 16 mg/dL (6-20); Carbon Dioxide 22 mmol/L (22-29); Chloride 106 mmol/L (98-107); Globulin 2.4 g/dL (1.3-4.6); Glomerular Filtration Rate 65.8 mL/min (90-130); Glucose 89 mg/dL (65-115); Osmolality Calculated 295 mOsm/kg (285-295); Sodium 142 mmol/L (136-145); Total Bilirubin 0.4 mg/dL (0.15-1.2); Total Protein 6.8 g/dL (6.6-8.7)
[2022-01-23 16:02] LABS: Aspartate Amino Transferase 13 U/L (0-40)
[2022-01-23 16:08] VITALS: BP 103/58; PULSE 99; RESP 16; O2SAT 99
[2022-01-23 16:38] VITALS: BP 117/57; PULSE 78; RESP 16
== END 2022-01-23 16:36 | disposition home or self-care (01) ==
PROVIDERS: Emergency Provider Family Medicine; PCP Internal Medicine
DX: R10.9 Unspecified abdominal pain (principal); Z79.02 Long term (current) use of antithrombotics/antiplatelets; Z79.4 Long term (current) use of insulin; Z79.82 Long term (current) use of aspirin; I25.10 Atherosclerotic heart disease of native coronary artery without angina pectoris; Z86.73 Personal history of transient ischemic attack (TIA), and cerebral infarction without residual deficits; E11.9 Type 2 diabetes mellitus without complications; E78.5 Hyperlipidemia, unspecified; I10 Essential (primary) hypertension; Z87.891 Personal history of nicotine dependence
CPT/HCPCS: 80053; 85025; 93005; 96374; 99284; J2405; J7030

== ENCOUNTER 2022-01-23 22:29 | Emergency (ER) | payer OTHER, MEDICAID, SELFPAY ==
[2022-01-23 22:51] VITALS: BP 176/85; PULSE 98; RESP 18; TEMP 37; O2SAT 97; BMI 23.3
--- NOTE | 2022-01-23 22:53 | XRR_ITS ---
PROCEDURE INFORMATION: Exam: XR Chest Exam date and time: 01/23/2022 11:35 PM Age: 46 years old Clinical indication: Chest pressure; Prior surgery; Surgery type: Coronary stents; Patient HX: C/O chest pain; Additional info: Cp TECHNIQUE: Imaging protocol: Radiologic exam of the chest. Views: 1 view. COMPARISON: CR (CHEST, ) 01/19/2022 5:44 PM FINDINGS: Lungs: Unremarkable. No consolidation. Pleural spaces: Unremarkable. No pleural effusion. No pneumothorax. Heart/Mediastinum: Unremarkable. No cardiomegaly. Bones/joints: Unremarkable. XR/XR chest 1V portable [id number] IMPRESSION: No acute findings.
--- NOTE | 2022-01-23 22:54 | ECG_ITS ---
[facility] Test Date: 2022-01-23 Pat Name: Alonso June Department: Room: Gender: Male [employer]: : 1975 Requested By: Haider Fan Order Number: [id number] Janel MD: Anatoliy Jean Baptiste M.D. Measurements Intervals [place] Rate: 104 P: 61 [place]: 133 QRS: 67 QRSD: 98 T: 50 QT: 321 QTc: 423 Interpretive Statements SINUS TACHYCARDIA MODERATE VOLTAGE CRITERIA FOR LVH, CONSIDER NORMAL VARIANT [MEETS CRITERIA IN ONE OF: R(aVL), S(V1), R(V5), R(V5/V6)+S(V1)] ABNORMAL RHYTHM ECG Compared to ECG 01/23/2022 14:47:49 Sinus rhythm no longer present Electronically Signed On 01-24-2022 18:53:31 CDT by Anatoliy Jean Baptiste M.D. [id number]
--- NOTE | 2022-01-23 22:54 | W.ED.CHESTPA ---
Documented by User: OFELIA Ram 01/24/22 10:18 HPI - Chest Pain General: Chief Complaint: Chest Pain Stated Complaint: CP Time Seen by Provider: 01/23/22 22:53 History of Present Illness: Patient is a 46-year-old male comes to the ED via EMS with chest pain. Patient has been seen here in the ED for chest pain multiple times in the last couple weeks and most recent visits were today, January 19 and January 20. Patient has been having on and off daily chest pain for the past couple weeks. Severe episode of chest pain started approximately 2 hours ago. He says he was laying down when chest pain started. Chest pain is located in the left-side of chest and he rates it currently a 9 out of 10. EMS gave patient 324 mg of aspirin and and 1 nitro while in route. Associated symptoms: Deny abdominal pain, dyspnea, fever(s), nausea, palpitations or vomiting Review of Systems Const: Denies: fever(s), chills or fatigue Eyes: Denies: change in vision or eye discomfort ENMT: Denies: throat pain, odynophagia, nasal discharge or nasal congestion Card: Reports: chest pain; Denies: palpitations, edema, swelling of feet/ankles, dyspnea on exertion or orthopnea Resp: Denies: dyspnea, productive cough or non-productive cough GI: Denies: abdominal pain, nausea, vomiting, diarrhea, constipation or hematochezia : Denies: flank pain, difficulty urinating, dysuria or hematuria Musc: Denies: neck pain, back pain or extremity swelling Skin/Breast: Denies: rash or new lesions Neuro: Denies: headache(s), numbness in extremities or weakness in extremities PFS ED PFSH: Medical History Angina pectoris, unstable Atherosclerotic heart disease of [place] coronary artery with unstable angina pectoris Benign essential HTN CAD (coronary artery disease) 9stents Chest pain CVA (cerebrovascular accident) Diabetes Dyslipidemia (high LDL; low HDL) Former smoker HTN (hypertension) Surgical History History of appendectomy Family History Other No pertinent family history Social History Smoking and tobacco status: former smoker Alcohol intake: never Housing: House Physical Exam Const: COMMON NORMALS: patient oriented x3 HENMT: COMMON NORMALS: normocephalic HEAD & SCALP: normocephalic MOUTH: Normal oral and palatal mucosa present THROAT: posterior oropharynx normal and uvula midline Neck/C-Spine: COMMON NORMALS: supple GENERAL: Yes normal visual inspection Resp: COMMON NORMALS: normal respiratory effort, No retractions, No use of accessory muscles and clear to auscultation bilaterally AUSCULTATION: clear to auscultation bilaterally Cardio: COMMON NORMALS: regular rate, regular rhythm, S1 normal heart sound present, S2 normal heart sound present, No gallops present (Cardio), No clicks present (Cardio), No murmurs present (Cardio) and Peripheral pulses 2+ throughout RATE: regular rate RHYTHM: regular rhythm HEART SOUNDS: S1 normal heart sound present and S2 normal heart sound present PERIPHERAL PULSES: Peripheral pulses 2+ throughout GI: COMMON NORMALS: Normal to inspection, nondistended, normoactive bowel sounds present, Soft to palpation, non-tender and no masses PALPATION: Yes Soft to palpation : COMMON NORMALS: Yes no CVA tenderness BLADDER/KIDNEY EXAM: Yes no CVA tenderness Back/Pelvis: COMMON NORMALS: no CVA tenderness Extremity: COMMON NORMALS: normal to inspection Neuro: COMMON NORMALS: patient oriented x3 and CN's II-XII intact bilaterally SPEECH: speech normal GAIT: Yes Normal gait present OTHER: Patient states he cannot move his left arm and left leg. When performing exam on patient he appears to be moving his left arm and leg some. Difficult to assess actual strength and weakness on left side because patient appears to be faking some of it. Skin: GENERAL SKIN EXAM: dry skin Course Reevaluation(s): Reevaluation #1: Patient is now stating he has left arm and left leg weakness and numbness. He says he cannot move his left arm or left leg at all. Time: 00:40 Vital Signs: Vital signs: Vital Signs Temperature 98.6 F 01/23/22 22:51 Pulse Rate 72 01/24/22 02:54 Respiratory Rate 14 01/24/22 02:54 Blood Pressure 135/74 01/24/22 02:54 Pulse Oximetry 97 01/24/22 02:54 Oxygen Delivery Me thod 01/24/22 01:37 MDM - Chest Pain Lab Data I reviewed the patient's lab results. : 01/23/22 23:00 01/23/22 23:00 Radiology Impressions Chest X-Ray 01/23/22 22:53 IMPRESSION: No acute findings. Head CT 01/24/22 01:01 IMPRESSION: No acute intracranial abnormality. Laboratory Results WBC 7.6 10^3/uL (4.0-10.0) 01/23/22 23:00 RBC 4.34 10^6/uL (4.1-5.3) 01/23/22 23:00 Hgb 9.9 g/dL (11.7-16.6) L 01/23/22 23:00 Hct 31.4 % (42.0-52.0) L 01/23/22 23:00 MCV 72.4 fl (80-94) L 01/23/22 23:00 MCH 22.8 pg (28.0-34.0) L 01/23/22 23:00 MCHC 31.5 g/dL (30.0-36.0) 01/23/22 23:00 RDW 17.7 % (12.1-15.1) H 01/23/22 23:00 Plt Count 323 10^3/cmm (130-400) 01/23/22 23:00 MPV 11.8 fL (7.4-10.4) H 01/23/22 23:00 Neut % (Auto) 54.2 % 01/23/22 23:00 Lymph % (Auto) 29.5 % 01/23/22 23:00 Logan % (Auto) 12.5 % 01/23/22 23:00 Eos % (Auto) 2.8 % 01/23/22 23:00 Baso % (Auto) 0.7 % 01/23/22 23:00 Neut # (Auto) 4.12 10^3/uL (1.8-7.7) 01/23/22 23:00 Lymph # (Auto) 2.2 10^3/uL (0.8-4.8) 01/23/22 23:00 Logan # (Auto) 1.0 10^3/uL (0.2-0.9) H 01/23/22 23:00 Eos # (Auto) 0.2 10^3/uL (0.0-0.8) 01/23/22 23:00 Baso # (Auto) 0.1 10^3/uL (0.0-0.1) 01/23/22 23:00 Nucleated RBC % (auto) 0 % 01/23/22 23:00 Nucleated RBCs # 0.0 /100WBC 01/23/22 23:00 Sodium 140 mmol/L (136-145) 01/23/22 23:00 Potassium 3.7 mmol/L (3.5-5.1) 01/23/22 23:00 Chloride 105 mmol/L (98-107) 01/23/22 23:00 Carbon Dioxide 24 mmol/L (22-29) 01/23/22 23:00 Anion Gap 14.7 (5-19) 01/23/22 23:00 BUN 21 mg/dL (6-20) H 01/23/22 23:00 Creatinine 1.3 mg/dL (0.7-1.2) H 01/23/22 23:00 GFR Calculation 60.0 mL/min (90-130) L 01/23/22 23:00 Glucose 107 mg/dL (65-115) 01/23/22 23:00 Calculated Osmolality 293 mOsm/kg (285-295) 01/23/22 23:00 Calcium 8.9 mg/dL (8.5-10.5) 01/23/22 23:00 Total Bilirubin 0.2 mg/dL (0.15-1.2) 01/23/22 23:00 AST 7 U/L (0-40) 01/23/22 23:00 ALT < 5 U/L (0-41) 01/23/22 23:00 Alkaline Phosphatase 73 IU/L (40-130) 01/23/22 23:00 Troponin T Baseline 13 ng/L (0-15) 01/23/22 23:00 Total Protein 6.8 g/dL (6.6-8.7) 01/23/22 23:00 Albumin 4.3 g/dL (3.5-5.2) 01/23/22 23:00 Globulin 2.5 g/dL (1.3-4.6) 01/23/22 23:00 Discharge Plan Discharge Patient Disposition: Home Clinical Impression: Atypical chest pain Condition: Stable Prescriptions: No Action clopidogrel 75 mg tablet 75 mg PO QAM Qty: 30 1RF [id number]-[id number] 50-325-40 mg tablet 2 tab PO BID PRN (Reason: Migraine Headache) Hold Instructions: interaction with aspirin albuterol sulfate [ProAir HFA] 90 mcg/actuation HFA aerosol inhaler 2 puff INHALATION Q4H PRN (Reason: Shortness Of Breath) 1 Days Qty: 30 0RF hydroxyzine HCl 25 mg tablet 25 mg PO BID PRN (Reason: nausea and vomiting) insulin glargine [Lantus Solostar U-100 Insulin] 100 unit/mL (3 mL) insulin pen 5 unit SUBCUT BEDTIME Qty: 15 0RF insulin aspart U-100 [Novolog Flexpen U-100 Insulin] 100 unit/mL (3 mL) insulin pen See Rx Instructions .ROUTE .COMPLEX Qty: 15 0RF Rx Instructions: Inject, 3 times daily, after meals, based on sliding scale provided pantoprazole [Protonix] 40 mg tablet,delayed release (DR/EC) 40 mg PO BID 30 Days Qty: 30 1RF Seroquel 50 mg Tablet 50 mg PO BEDTIME carvedilol 3.125 mg tablet 3.125 mg PO Q12H isosorbide mononitrate 60 mg tablet extended release 24 hr 120 mg PO BID aripiprazole 10 mg tablet 5 mg PO BEDTIME ondansetron HCl 4 mg tablet 4 mg PO Q6H PRN (Reason: nausea and vomiting) Qty: 20 0RF escitalopram oxalate 10 mg Tablet 10 mg PO DAILY 30 Days Qty: 30 1RF atorvastatin 40 mg tablet 40 mg PO BEDTIME 30 Days Qty: 30 1RF ondansetron HCl 4 mg tablet 4 mg PO Q8H PRN (Reason: Nausea And Vomiting) 30 Days Qty: 60 1RF aspirin 81 mg Tablet,Delayed Release (Dr/Ec) 81 mg PO QAM 30 Days Qty: 30 1RF nitroglycerin [Nitrostat] 0.4 mg Tablet, Sublingual 0.4 mg SUBLINGUAL Q5M PRN (Reason: Chest Pain) 30 Days Qty: 60 1RF Rx Instructions: do not exceed 3 doses per episode ranolazine 500 mg tablet extended release 12 hr 500 mg PO BID 30 Days Qty: 60 1RF methocarbamol 750 mg tablet 750 mg PO Q6H PRN (Reason: spasms) Qty: 20 0RF Discharge Orders: Discharge ED (Routine); Ordered 01/23/22 Ordered By: Haider Fan Referrals: Cecily Miller MD [Primary Care Provider] - Discharge Diet: Regular Discharge Activity: Increase activity as tolerated Patient Instructions: Chest Pain (ED) Activity Restrictions/Additional Instructions: Follow-up with medical provider as directed in the next 3 to 5 days reevaluation. Continue taking all home medications as previously prescribed. Return to the ER or your medical provider if condition worsens. Please read and understand discharge instructions. Thank you for choosing [facility] for your healthcare needs today. Please realize this is an emergency room and that we are providing you with a medical screening exam and this may not be complete and all inclusive of all the testing and or work up that you may need to determine your ailment or severity of your illness. It is very important that you follow up as instructed or that you return to the Emergency Department should you have concerns or if your condition changes or worsens in any way. Coding Level of Care Code ED Master Plumber for Chg Fwd Exam Comprehensive Documented by User: Devan Nickerson DO 01/24/22 02:46 HPI - Chest Pain General: Chief Complaint: Chest Pain Stated Complaint: CP Time Seen by Provider: 01/23/22 22:53 [facility] ED PFSH: Medical History Angina pectoris, unstable Atherosclerotic heart disease of [place] coronary artery with unstable angina pectoris Benign essential HTN CAD (coronary artery disease) 9stents Chest pain CVA (cerebrovascular accident) Diabetes Dyslipidemia (high LDL; low HDL) Former smoker HTN (hypertension) Surgical History History of appendectomy Family History Other No pertinent family history Social History Smoking and tobacco status: former smoker Alcohol intake: never Housing: House Course Vital Signs: Vital signs: Vital Signs Temperature 98.6 F 01/23/22 22:51 Pulse Rate 72 01/24/22 02:54 Respiratory Rate 14 01/24/22 02:54 Blood Pressure 135/74 01/24/22 02:54 Pulse Oximetry 97 01/24/22 02:54 Oxygen Delivery Tx thod 01/24/22 01:37 MDM - Chest Pain Medical Decision Making Patient signed out to [place] Devan Nickerson at [address] of his head. CT of his head is unremarkable. Patient is inducible on the left side. Extensive review of patient's chart reveals patient has been present multiple times in the ED for suspected left weakness. Has had upwards of 18 CT scans for the same the last 365 days. Given reproducibility of symptoms. Patient inducible. Low suspicion for acute ischemic stroke. Patient appears to be malingering. Vitals do not reflect acute ischemic stroke. Exam does not reflect acute ischemic stroke. Recommended routine outpatient follow-up. Strict return precautions were given. Lab Data : 01/23/22 23:00 01/23/22 23:00 Radiology Impressions Chest X-Ray 01/23/22 22:53 IMPRESSION: No acute findings. Head CT 01/24/22 01:01 IMPRESSION: No acute intracranial abnormality. Laboratory Results WBC 7.6 10^3/uL (4.0-10.0) 01/23/22 23:00 RBC 4.34 10^6/uL (4.1-5.3) 01/23/22 23:00 Hgb 9.9 g/dL (11.7-16.6) L 01/23/22 23:00 Hct 31.4 % (42.0-52.0) L 01/23/22 23:00 MCV 72.4 fl (80-94) L 01/23/22 23:00 MCH 22.8 pg (28.0-34.0) L 01/23/22 23:00 MCHC 31.5 g/dL (30.0-36.0) 01/23/22 23:00 RDW 17.7 % (12.1-15.1) H 01/23/22 23:00 Plt Count 323 10^3/cmm (130-400) 01/23/22 23:00 MPV 11.8 fL (7.4-10.4) H 01/23/22 23:00 Neut % (Auto) 54.2 % 01/23/22 23:00 Lymph % (Auto) 29.5 % 01/23/22 23:00 Logan % (Auto) 12.5 % 01/23/22 23:00 Eos % (Auto) 2.8 % 01/23/22 23:00 Baso % (Auto) 0.7 % 01/23/22 23:00 Neut # (Auto) 4.12 10^3/uL (1.8-7.7) 01/23/22 23:00 Lymph # (Auto) 2.2 10^3/uL (0.8-4.8) 01/23/22 23:00 Logan # (Auto) 1.0 10^3/uL (0.2-0.9) H 01/23/22 23:00 Eos # (Auto) 0.2 10^3/uL (0.0-0.8) 01/23/22 23:00 Baso # (Auto) 0.1 10^3/uL (0.0-0.1) 01/23/22 23:00 Nucleated RBC % (auto) 0 % 01/23/22 23:00 Nucleated RBCs # 0.0 /100WBC 01/23/22 23:00 Sodium 140 mmol/L (136-145) 01/23/22 23:00 Potassium 3.7 mmol/L (3.5-5.1) 01/23/22 23:00 Chloride 105 mmol/L (98-107) 01/23/22 23:00 Carbon Dioxide 24 mmol/L (22-29) 01/23/22 23:00 Anion Gap 14.7 (5-19) 01/23/22 23:00 BUN 21 mg/dL (6-20) H 01/23/22 23:00 Creatinine 1.3 mg/dL (0.7-1.2) H 01/23/22 23:00 GFR Calculation 60.0 mL/min (90-130) L 01/23/22 23:00 Glucose 107 mg/dL (65-115) 01/23/22 23:00 Calculated Osmolality 293 mOsm/kg (285-295) 01/23/22 23:00 Calcium 8.9 mg/dL (8.5-10.5) 01/23/22 23:00 Total Bilirubin 0.2 mg/dL (0.15-1.2) 01/23/22 23:00 AST 7 U/L (0-40) 01/23/22 23:00 ALT < 5 U/L (0-41) 01/23/22 23:00 Alkaline Phosphatase 73 IU/L (40-130) 01/23/22 23:00 Troponin T Baseline 13 ng/L (0-15) 01/23/22 23:00 Total Protein 6.8 g/dL (6.6-8.7) 01/23/22 23:00 Albumin 4.3 g/dL (3.5-5.2) 01/23/22 23:00 Globulin 2.5 g/dL (1.3-4.6) 01/23/22 23:00 Discharge Plan Discharge Patient Disposition: Home Clinical Impression: Atypical chest pain Condition: Stable Prescriptions: No Action clopidogrel 75 mg tablet 75 mg PO QAM Qty: 30 1RF wezuoimlpf-jhuaxcvjdkidd-clmo 50-325-40 mg tablet 2 tab PO BID PRN (Reason: Migraine Headache) Hold Instructions: interaction with aspirin albuterol sulfate [ProAir HFA] 90 mcg/actuation HFA aerosol inhaler 2 puff INHALATION Q4H PRN (Reason: Shortness Of Breath) 1 Days Qty: 30 0RF hydroxyzine HCl 25 mg tablet 25 mg PO BID PRN (Reason: nausea and vomiting) insulin glargine [Lantus Solostar U-100 Insulin] 100 unit/mL (3 mL) insulin pen 5 unit SUBCUT BEDTIME Qty: 15 0RF insulin aspart U-100 [Novolog Flexpen U-100 Insulin] 100 unit/mL (3 mL) insulin pen See Rx Instructions .ROUTE .COMPLEX Qty: 15 0RF Rx Instructions: Inject, 3 times daily, after meals, based on sliding scale provided pantoprazole [Protonix] 40 mg tablet,delayed release (DR/EC) 40 mg PO BID 30 Days Qty: 30 1RF Seroquel 50 mg Tablet 50 mg PO BEDTIME carvedilol 3.125 mg tablet 3.125 mg PO Q12H isosorbide mononitrate 60 mg tablet extended release 24 hr 120 mg PO BID aripiprazole 10 mg tablet 5 mg PO BEDTIME ondansetron HCl 4 mg tablet 4 mg PO Q6H PRN (Reason: nausea and vomiting) Qty: 20 0RF escitalopram oxalate 10 mg Tablet 10 mg PO DAILY 30 Days Qty: 30 1RF atorvastatin 40 mg tablet 40 mg PO BEDTIME 30 Days Qty: 30 1RF ondansetron HCl 4 mg tablet 4 mg PO Q8H PRN (Reason: Nausea And Vomiting) 30 Days Qty: 60 1RF aspirin 81 mg Tablet,Delayed Release (Dr/Ec) 81 mg PO QAM 30 Days Qty: 30 1RF nitroglycerin [Nitrostat] 0.4 mg Tablet, Sublingual 0.4 mg SUBLINGUAL Q5M PRN (Reason: Chest Pain) 30 Days Qty: 60 1RF Rx Instructions: do not exceed 3 doses per episode ranolazine 500 mg tablet extended release 12 hr 500 mg PO BID 30 Days Qty: 60 1RF methocarbamol 750 mg tablet 750 mg PO Q6H PRN (Reason: spasms) Qty: 20 0RF Discharge Orders: Discharge ED (Routine); Ordered 01/23/22 Ordered By: Haider Fan Referrals: Cecily Miller MD [Primary Care Provider] - Discharge Diet: Regular Discharge Activity: Increase activity as tolerated Patient Instructions: Chest Pain (ED) Activity Restrictions/Additional Instructions: Follow-up with medical provider as directed in the next 3 to 5 days reevaluation. Continue taking all home medications as previously prescribed. Return to the ER or your medical provider if condition worsens. Please read and understand discharge instructions. Thank you for choosing [facility] for your healthcare needs today. Please realize this is an emergency room and that we are providing you with a medical screening exam and this may not be complete and all inclusive of all the testing and or work up that you may need to determine your ailment or severity of your illness. It is very important that you follow up as instructed or that you return to the Emergency Department should you have concerns or if your condition changes or worsens in any way. Coding Level of Care Code ED Master Plumber for Marcelino Fwmacy Exam Comprehensive
[2022-01-23 23:05] LABS: Basophils # 0.1 10^3/uL (0.0-0.1); Basophils % 0.7 %; Eosinophils # 0.2 10^3/uL (0.0-0.8); Eosinophils % 2.8 %; Hematocrit 31.4 % (42.0-52.0); Hemoglobin 9.9 g/dL (11.7-16.6); Lymphocytes # 2.2 10^3/uL (0.8-4.8); Lymphocytes % 29.5 %; Mean Corpuscular HGB Conc 31.5 g/dL (30.0-36.0); Mean Corpuscular Hemoglobin 22.8 pg (28.0-34.0); Mean Corpuscular Volume 72.4 fl (80-94); Mean Platelet Volume 11.8 fL (7.4-10.4); Monocytes % 12.5 %; Neutrophils # 4.12 10^3/uL (1.8-7.7); Neutrophils % 54.2 %; Nucleated Red Blood Cells % 0 %; Platelet Count 323 10^3/cmm (130-400); Red Blood Count 4.34 10^6/uL (4.1-5.3); Red Cell Distribution Width 17.7 % (12.1-15.1); White Blood Count 7.6 10^3/uL (4.0-10.0)
[2022-01-23 23:32] LABS: Alanine Aminotransferase < 5 U/L (0-41); Albumin Level 4.3 g/dL (3.5-5.2); Alkaline Phosphatase 73 IU/L (40-130); Anion Gap 14.7 (5-19); Aspartate Amino Transferase 7 U/L (0-40); Blood Urea Nitrogen 21 mg/dL (6-20); Calcium 8.9 mg/dL (8.5-10.5); Carbon Dioxide 24 mmol/L (22-29); Chloride 105 mmol/L (98-107); Globulin 2.5 g/dL (1.3-4.6); Glucose 107 mg/dL (65-115); Osmolality Calculated 293 mOsm/kg (285-295); Potassium 3.7 mmol/L (3.5-5.1); Sodium 140 mmol/L (136-145); Total Bilirubin 0.2 mg/dL (0.15-1.2); Total Protein 6.8 g/dL (6.6-8.7); Troponin(5th) Baseline 13 ng/L (0-15)
[2022-01-23 23:45] VITALS: RESP 20
[2022-01-23] MEDS: morphine 4 mg/mL SDV 1 mL IVP (23:45)
--- NOTE | 2022-01-24 01:01 | CTR_ITS ---
PROCEDURE INFORMATION: Exam: CT Head Without Contrast Exam date and time: 01/24/2022 1:44 AM Age: 46 years old Clinical indication: Weakness, extremity; Patient HX: C/O left sided weakness/numbness. ; Additional info: Left-sided numbness and weakness TECHNIQUE: Imaging protocol: Computed tomography of the head without contrast. Radiation optimization: All CT scans at this facility use at least one of these dose optimization techniques: automated exposure control; mA and/or kV adjustment per patient size (includes targeted exams where dose is matched to clinical indication); or iterative reconstruction. COMPARISON: CT head wo con* [id number] 01/02/2022 5:02 PM RADIATION DOSE METRICS: Total DLP (mGy-cm): 1051.08 FINDINGS: Brain: Normal. No hemorrhage. Unremarkable white matter. No mass effect. Cerebral ventricles: No ventriculomegaly. Paranasal sinuses: Visualized sinuses are unremarkable. No fluid levels. Mastoid air cells: Visualized mastoid air cells are well aerated. Bones/joints: Unremarkable. No acute fracture. Soft tissues: Unremarkable. CT/CT head wo con* [id number] IMPRESSION: No acute intracranial abnormality.
[2022-01-24] MEDS: LORazepam 1 mg Tablet PO (01:33)
[2022-01-24 01:37] VITALS: BP 154/94; PULSE 93; RESP 16; O2SAT 98
--- NOTE | 2022-01-24 02:52 | PC.NURSE ---
upon discharge patient was able to move his left arm and leg. patient used his left arm to help himself get out of the bed and into a wheelchair and then used his left arm to grab his hat from the chair next to him.
[2022-01-24 02:54] VITALS: BP 135/74; PULSE 72; RESP 14; O2SAT 97
== END 2022-01-24 02:55 | disposition home or self-care (01) ==
PROVIDERS: Emergency Provider Physician Assistant; PCP Internal Medicine
DX: R07.89 Other chest pain (principal); Z79.82 Long term (current) use of aspirin; Z79.4 Long term (current) use of insulin; I25.10 Atherosclerotic heart disease of native coronary artery without angina pectoris; E11.9 Type 2 diabetes mellitus without complications; Z86.73 Personal history of transient ischemic attack (TIA), and cerebral infarction without residual deficits; E78.5 Hyperlipidemia, unspecified; I10 Essential (primary) hypertension; Z87.891 Personal history of nicotine dependence
CPT/HCPCS: 70450; 71045; 80053; 84484; 85025; 93005; 96374; 99285; J2270

== ENCOUNTER 2022-01-26 20:26 | Emergency (ER) | payer OTHER, MEDICAID, SELFPAY ==
[2022-01-26 20:38] VITALS: BP 120/77; PULSE 92; RESP 16; TEMP 36.9; O2SAT 97; BMI 23.1
--- NOTE | 2022-01-26 20:38 | XRR_ITS ---
PROCEDURE INFORMATION: Exam: XR Chest Exam date and time: 01/26/2022 9:01 PM Age: 46 years old Clinical indication: Chest wall pain; Additional info: Chest pain TECHNIQUE: Imaging protocol: Radiologic exam of the chest. Views: 1 view. COMPARISON: CR (CHEST, ) 01/23/2022 11:35 PM FINDINGS: Lungs: Unremarkable. No consolidation. Pleural spaces: Unremarkable. No pleural effusion. No pneumothorax. Heart/Mediastinum: Unremarkable. No cardiomegaly. Bones/joints: Unremarkable. XR/XR chest 1V portable [id number] IMPRESSION: No acute findings.
--- NOTE | 2022-01-26 20:38 | ECG_ITS ---
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 Measurements Intervals [place] Rate: 84 P: 70 CT: 149 QRS: 76 QRSD: 87 T: 77 QT: 325 QTc: 384 Interpretive Statements SINUS RHYTHM VOLTAGE CRITERIA FOR LVH [MEETS CRITERIA IN ONE OF: R(aVL), S(V1), R(V5), R(V5/V6)+S(V1)] Compared to ECG 01/23/2022 22:46:06 Sinus tachycardia no longer present Electronically Signed On 01-27-2022 0:50:26 CDT by Anatoliy Jean Baptiste M.D. [email or web address]
--- NOTE | 2022-01-26 20:39 | ED_ITS ---
HPI - General Adult General: Chief complaint: Chest Pain Stated complaint: CP Time Seen by Provider: 01/26/22 20:38 History of Present Illness: CC: Chest Pain HPI: This is a [46] yo patient hx of chronic chest pain presenting to the ED complaining of acute sudden onset intermittent sharp chest pain earlier today WITHOUT radiation to the back or shoulders . No associated with shortness of breath, chest pain or dyspnea on exertion. Pain is not tearing in nature and does not radiate to the back. Pain not associated with vomiting or PO intake. Denies any recent sympathomimetic drug use. Patient denies any cough. Denies palpitations, dysphagia, diaphoresis, radiation of pain to bilateral arms, jaw. Denies F/N/V/D. Patient denies any recent immobility, surgery, unilateral leg swelling, or prior PE. Patient denies any orthopnea. Onset:1 hr ago Duration: ongoing for the last 1 hr Location: home Severity: moderate Associated symptoms: Reports chest pain; Deny dyspnea, nausea, rash, palpitations or vomiting Review of Systems Const: Denies: fever(s) or chills Eyes: Denies: change in vision ENMT: Denies: mouth pain Card: Reports: chest pain; Denies: palpitations Resp: Denies: dyspnea or non-productive cough GI: Denies: abdominal pain, nausea, vomiting or diarrhea : Denies: dysuria Musc: Denies: extremity pain Skin/Breast: Denies: rash or new lesions Neuro: Denies: weakness in extremities Psych: Reports: other (Normal mood) Melquiades/Lymph: Denies: easy bruising PFS ED PFSH: Medical History Angina pectoris, unstable Atherosclerotic heart disease of [place] coronary artery with unstable angina pectoris Benign essential HTN CAD (coronary artery disease) 9stents Chest pain CVA (cerebrovascular accident) Diabetes Dyslipidemia (high LDL; low HDL) Former smoker HTN (hypertension) Surgical History History of appendectomy Family History Other No pertinent family history Social History Smoking and tobacco status: former smoker Alcohol intake: never Housing: House Physical Exam Const: COMMON NORMALS: alert HENMT: COMMON NORMALS: atraumatic HEAD & SCALP: atraumatic MOUTH: moist mucous membranes not abnormal Eye: COMMON NORMALS: EOMs intact bilaterally and conjunctivae normal CONJUNCTIVA: Yes conjunctivae normal Neck/C-Spine: COMMON NORMALS: full ROM and supple Resp: COMMON NORMALS: normal respiratory effort and clear to auscultation bilaterally AUSCULTATION: clear to auscultation bilaterally Cardio: COMMON NORMALS: regular rate RATE: regular rate OTHER: 2+ radial pulses b/l GI: COMMON NORMALS: Soft to palpation and non-tender PALPATION: Yes Soft to palpation OTHER: No focal TTP. NO guarding rebound, guarding, rigidity. No CVA tenderness to percussion. Neg Navarro/Neg McBurney's point tenderness, no suprabupic tenderness to palpation. Extremity: COMMON NORMALS: full ROM OTHER: No lower extremity swelling Neuro: SENSORIUM/ORIENTATION: Yes alert MOTOR EXAM: No Abnormal motor strength present and Other motor observations present (no focal motor deficits) Psych: COMMON NORMALS: speech normal SPEECH: Yes normal speech MOOD & AFFECT: Yes euthymic mood Course Vital Signs: Vital signs: Vital Signs Temperature 98.5 F 01/26/22 20:38 Pulse Rate 90 01/26/22 21:34 Respiratory Rate 18 01/26/22 21:34 Blood Pressure 145/106 01/26/22 21:34 Pulse Oximetry 100 01/26/22 21:34 Oxygen Delivery Me thod 01/26/22 21:34 MDM - General Adult Medical Decision Making [46]yo patient w/ hx of chronic chest pain presenting to the ED with evaluation of new onset sharp chest pain lasting for 1 hr. HDS, pulse 2+ radially bilaterally, no signs of fluid overload, AAOx3, neuro exam intact. Given History and Exam today I have no suspicion for ACS, Pneumothorax, Pneumonia, Pulmonary Embolus, Tamponade, Aortic Dissection or other emergent problems as a cause for this presentation. Workup: ECG x2, CXR, CBC, BMP, Troponin x 2 Interventions: Tylenol Findings: ECG: No overt evidence of STEMI, hyperacute T waves, localizable STD or T wave inversions. No evidence of Brugada?s sign, delta wave, epsilon wave, significantly prolonged QTc, or malignant arrhythmia. No Q waves. Other Labs unremarkable for emergent problems. CXR: Without PTX, PNA, or widened mediastinum HEART Score: 0 PERC: Negative [9:30pm] On reassessment, the patient is HDS, no complaints of persistent chest pain in the ED after evaluation and after tylenol. ECG is non-ischemic. Workup today is unremarkable. Doubt ACS/PE or other emergent causes of chest pain. Doubt ACS/PE or other emergent causes of chest pain. No suspicion for aortic dissection given no widened mediastinum, 2+ upper extremity pulses, or tearing pain. No suspicion for PE given no pleuritic chest pain, recent immobilization or surgery hemoptysis, or other VTE risk factors. EKG is non-ischemic. XR normal. Rx: Tylenol PRN pain Disposition: Discharge. Strict return precautions discussed with the patient with full understanding. Advised patient to follow up promptly with a primary care provider in 24-48 hrs if the patient has persistent symptoms. Given return instructions for any crushing/tearing chest pain, focal weakness, syncope or any new or concerning issues. Lab Data : 01/26/22 20:45 01/26/22 20:45 Laboratory Results WBC 8.1 10^3/uL (4.0-10.0) 01/26/22 20:45 RBC 4.30 10^6/uL (4.1-5.3) 01/26/22 20:45 Hgb 9.8 g/dL (11.7-16.6) L 01/26/22 20:45 Hct 31.3 % (42.0-52.0) L 01/26/22 20:45 MCV 72.8 fl (80-94) L 01/26/22 20:45 MCH 22.8 pg (28.0-34.0) L 01/26/22 20:45 MCHC 31.3 g/dL (30.0-36.0) 01/26/22 20:45 RDW 17.5 % (12.1-15.1) H 01/26/22 20:45 Plt Count 253 10^3/cmm (130-400) 01/26/22 20:45 MPV 11.3 fL (7.4-10.4) H 01/26/22 20:45 Neut % (Auto) 64.5 % 01/26/22 20:45 Lymph % (Auto) 19.7 % 01/26/22 20:45 [place] % (Auto) 11.6 % 01/26/22 20:45 Eos % (Auto) 3.5 % 01/26/22 20:45 Baso % (Auto) 0.5 % 01/26/22 20:45 Neut # (Auto) 5.23 10^3/uL (1.8-7.7) 01/26/22 20:45 Lymph # (Auto) 1.6 10^3/uL (0.8-4.8) 01/26/22 20:45 [place] # (Auto) 0.9 10^3/uL (0.2-0.9) 01/26/22 20:45 Eos # (Auto) 0.3 10^3/uL (0.0-0.8) 01/26/22 20:45 Baso # (Auto) 0.0 10^3/uL (0.0-0.1) 01/26/22 20:45 Nucleated RBC % (auto) 0 % 01/26/22 20:45 Nucleated RBCs # 0.0 /100WBC 01/26/22 20:45 Sodium 142 mmol/L (136-145) 01/26/22 20:45 Potassium 3.8 mmol/L (3.5-5.1) 01/26/22 20:45 Chloride 107 mmol/L (98-107) 01/26/22 20:45 Carbon Dioxide 26 mmol/L (22-29) 01/26/22 20:45 Anion Gap 12.8 (5-19) 01/26/22 20:45 BUN 16 mg/dL (6-20) 01/26/22 20:45 Creatinine 0.9 mg/dL (0.7-1.2) 01/26/22 20:45 GFR Calculation 91.7 mL/min (90-130) 01/26/22 20:45 Glucose 147 mg/dL (65-115) H 01/26/22 20:45 Calculated Osmolality 298 mOsm/kg (285-295) H 01/26/22 20:45 Calcium 8.8 mg/dL (8.5-10.5) 01/26/22 20:45 Troponin T Baseline 15 ng/L (0-15) 01/26/22 20:45 Discharge Plan Discharge Patient Disposition: Home Clinical Impression: Chest pain Condition: Stable Prescriptions: New acetaminophen 500 mg tablet 500 mg PO Q6H PRN (Reason: pain) 5 Days Qty: 20 0RF No Action clopidogrel 75 mg tablet 75 mg PO QAM Qty: 30 1RF vzowcglsxx-gqfuknteyltlu-cbrl 50-325-40 mg tablet 2 tab PO BID PRN (Reason: Migraine Headache) Hold Instructions: interaction with aspirin albuterol sulfate [ProAir HFA] 90 mcg/actuation HFA aerosol inhaler 2 puff INHALATION Q4H PRN (Reason: Shortness Of Breath) 1 Days Qty: 30 0RF hydroxyzine HCl 25 mg tablet 25 mg PO BID PRN (Reason: nausea and vomiting) insulin glargine [Lantus Solostar U-100 Insulin] 100 unit/mL (3 mL) insulin pen 5 unit SUBCUT BEDTIME Qty: 15 0RF insulin aspart U-100 [Novolog Flexpen U-100 Insulin] 100 unit/mL (3 mL) insuli n pen See Rx Instructions .ROUTE .COMPLEX Qty: 15 0RF Rx Instructions: Inject, 3 times daily, after meals, based on sliding scale provided pantoprazole [Protonix] 40 mg tablet,delayed release (DR/EC) 40 mg PO BID 30 Days Qty: 30 1RF Seroquel 50 mg Tablet 50 mg PO BEDTIME carvedilol 3.125 mg tablet 3.125 mg PO Q12H isosorbide mononitrate 60 mg tablet extended release 24 hr 120 mg PO BID aripiprazole 10 mg tablet 5 mg PO BEDTIME ondansetron HCl 4 mg tablet 4 mg PO Q6H PRN (Reason: nausea and vomiting) Qty: 20 0RF escitalopram oxalate 10 mg Tablet 10 mg PO DAILY 30 Days Qty: 30 1RF atorvastatin 40 mg tablet 40 mg PO BEDTIME 30 Days Qty: 30 1RF ondansetron HCl 4 mg tablet 4 mg PO Q8H PRN (Reason: Nausea And Vomiting) 30 Days Qty: 60 1RF aspirin 81 mg Tablet,Delayed Release (Dr/Ec) 81 mg PO QAM 30 Days Qty: 30 1RF nitroglycerin [Nitrostat] 0.4 mg Tablet, Sublingual 0.4 mg SUBLINGUAL Q5M PRN (Reason: Chest Pain) 30 Days Qty: 60 1RF Rx Instructions: do not exceed 3 doses per episode ranolazine 500 mg tablet extended release 12 hr 500 mg PO BID 30 Days Qty: 60 1RF methocarbamol 750 mg tablet 750 mg PO Q6H PRN (Reason: spasms) Qty: 20 0RF Discharge Orders: Discharge ED (Routine); Ordered 01/26/22 Ordered By: Edwige Crystal Referrals: Cecily Miller MD [Primary Care Provider] - Discharge Diet: Advance as tolerated Discharge Activity: Increase activity as tolerated Patient Instructions: Chest Pain (ED) Activity Restrictions/Additional Instructions: Please come back if you have any worsening abdominal pain, fever or chills, carly sea or vomiting, diarrhea, blood in the stool, inability hold down liquid or solids, or any new concerning complaints. Coding Level of Care Code ED Child Care Aide for Marcelino Fwd Exam Comprehensive
[2022-01-26 21:02] LABS: Basophils % 0.5 %; Eosinophils # 0.3 10^3/uL (0.0-0.8); Eosinophils % 3.5 %; Hematocrit 31.3 % (42.0-52.0); Hemoglobin 9.8 g/dL (11.7-16.6); Lymphocytes # 1.6 10^3/uL (0.8-4.8); Lymphocytes % 19.7 %; Mean Corpuscular HGB Conc 31.3 g/dL (30.0-36.0); Mean Corpuscular Hemoglobin 22.8 pg (28.0-34.0); Mean Corpuscular Volume 72.8 fl (80-94); Mean Platelet Volume 11.3 fL (7.4-10.4); Monocytes # 0.9 10^3/uL (0.2-0.9); Monocytes % 11.6 %; Neutrophils # 5.23 10^3/uL (1.8-7.7); Neutrophils % 64.5 %; Nucleated Red Blood Cells % 0 %; Platelet Count 253 10^3/cmm (130-400); Red Cell Distribution Width 17.5 % (12.1-15.1); White Blood Count 8.1 10^3/uL (4.0-10.0)
[2022-01-26 21:30] LABS: Troponin(5th) Baseline 15 ng/L (0-15)
[2022-01-26 21:32] LABS: Anion Gap 12.8 (5-19); Blood Urea Nitrogen 16 mg/dL (6-20); Calcium 8.8 mg/dL (8.5-10.5); Carbon Dioxide 26 mmol/L (22-29); Chloride 107 mmol/L (98-107); Glomerular Filtration Rate 91.7 mL/min (90-130); Glucose 147 mg/dL (65-115); Osmolality Calculated 298 mOsm/kg (285-295); Potassium 3.8 mmol/L (3.5-5.1); Sodium 142 mmol/L (136-145)
[2022-01-26 21:34] VITALS: BP 145/106; PULSE 90; RESP 18; O2SAT 100
[2022-01-26 21:46] VITALS: BP 172/90; PULSE 97; RESP 18; O2SAT 96
== END 2022-01-26 21:47 | disposition home or self-care (01) ==
PROVIDERS: Emergency Provider Emergency Medicine; PCP Internal Medicine
DX: R07.9 Chest pain, unspecified (principal); Z79.02 Long term (current) use of antithrombotics/antiplatelets; Z79.82 Long term (current) use of aspirin; Z79.4 Long term (current) use of insulin; I25.10 Atherosclerotic heart disease of native coronary artery without angina pectoris; Z86.73 Personal history of transient ischemic attack (TIA), and cerebral infarction without residual deficits; E11.9 Type 2 diabetes mellitus without complications; E78.5 Hyperlipidemia, unspecified; I10 Essential (primary) hypertension; Z87.891 Personal history of nicotine dependence
CPT/HCPCS: 71045; 80048; 84484; 85025; 93005; 99285

== ENCOUNTER 2022-01-26 22:59 | Emergency (ER) | payer OTHER, MEDICAID, SELFPAY ==
--- NOTE | 2022-01-26 23:02 | ED_ITS ---
HPI - Chest Pain General: Chief Complaint: Chest Pain Stated Complaint: CP Time Seen by Provider: 01/26/22 23:02 History of Present Illness: Mr. June is a 46-year-old gentleman well-known to this emergency department who presents to the emergency department for chest pain. He reports onset of symptoms approximately 2 weeks ago and has persisted. He has previously been evaluated. He describes intensity of symptoms as being slightly variable. He had questionable syncope earlier but denies knowledge of this. Overall course of symptoms has persisted. No other specific changes in health, exacerbating, or alleviating factors identified. Onset (ago): week(s) Prior episodes: Yes Pain location: substernal Pain radiation: left arm Severity: moderate Quality: crushing Associated symptoms: Reports syncope Review of Systems General: Reports: 10 or more systems reviewed and unremarkable except in HPI and below Card: Reports: syncope [facility] ED PFSH: Medical History Angina pectoris, unstable Benign essential HTN CAD (coronary artery disease) 9stents Chest pain CVA (cerebrovascular accident) Diabetes Dyslipidemia (high LDL; low HDL) Former smoker HTN (hypertension) Surgical History History of appendectomy Family History Other No pertinent family history Social History Smoking and tobacco status: former smoker Alcohol intake: never Housing: House Physical Exam Const: COMMON NORMALS: alert GENERAL APPEARANCE: cooperative and well developed HENMT: COMMON NORMALS: normocephalic and atraumatic HEAD & SCALP: normocephalic and atraumatic THROAT: posterior oropharynx normal Eye: COMMON NORMALS: conjunctivae normal CONJUNCTIVA: Yes conjunctivae normal SCLERA: sclerae normal Neck/C-Spine: COMMON NORMALS: supple GENERAL: Yes trachea midline Resp: COMMON NORMALS: normal respiratory effort EFFORT & INSPECTION: Yes able to speak in complete sentences Cardio: COMMON NORMALS: regular rate and regular rhythm RATE: regular rate RHYTHM: regular rhythm GI: COMMON NORMALS: Soft to palpation PALPATION: Yes Soft to palpation and No Tenderness to palpation present (GI) PERCUSSION: normal to percussion Extremity: GENERAL: Yes normal exam except as noted and No edema Neuro: COMMON NORMALS: moves all extremities SENSORIUM/ORIENTATION: Yes alert and No Orientation impaired OTHER: There is significant limitations in neurologic exam due to patient factors. There are no obvious focal neurologic deficits on examination of cranial nerves II through X. Patient moves all extremities Psych: COMMON NORMALS: mental status grossly normal and Normal thought process present THOUGHT PROCESS: Normal thought process present Course Vital Signs: Vital signs: Vital Signs Temperature 98.0 F 01/27/22 00:05 Pulse Rate 80 01/27/22 00:05 Respiratory Rate 18 01/27/22 00:05 Blood Pressure 142/77 01/27/22 00:05 Pulse Oximetry 98 01/27/22 00:05 MDM - Chest Pain Medical Decision Making 46-year-old gentleman with frequent ED visits and extensive history of cardiac evaluation this year presenting with chest pain. He was seen earlier today. ED evaluation from earlier was reviewed. EKG reviewed without evidence of STEMI. Patient does have positive orthostatics however blood pressure remains increased without hypotension. Patient able to tolerate p.o. intake. GI cocktail and nitroglycerin given without significant improvement in pain. Given history and inpatient evaluations in the past I do not feel that repeat admission is needed at this time. Most likely etiology is uncertain however at this point patient exhibits drug-seeking behavior and malingering. Patient refused on discharge paperwork however did ambulate with steady gait from the emergency department. Medical Records I reviewed the patient's medical records. Lab Data I reviewed the patient's lab results. Discharge Plan Discharge Patient Disposition: Home Clinical Impression: Chest pain, Malingering Condition: Stable Prescriptions: No Action clopidogrel 75 mg tablet 75 mg PO QAM Qty: 30 1RF whykemmmpo-wfsfzbarqobxo-vzdt 50-325-40 mg tablet 2 tab PO BID PRN (Reason: Migraine Headache) Hold Instructions: interaction with aspirin albuterol sulfate [ProAir HFA] 90 mcg/actuation HFA aerosol inhaler 2 puff INHALATION Q4H PRN (Reason: Shortness Of Breath) 1 Days Qty: 30 0RF hydroxyzine HCl 25 mg tablet 25 mg PO BID PRN (Reason: nausea and vomiting) insulin glargine [Lantus Solostar U-100 Insulin] 100 unit/mL (3 mL) insulin pen 5 unit SUBCUT BEDTIME Qty: 15 0RF insulin aspart U-100 [Novolog Flexpen U-100 Insulin] 100 unit/mL (3 mL) insulin pen See Rx Instructions .ROUTE .COMPLEX Qty: 15 0RF Rx Instructions: Inject, 3 times daily, after meals, based on sliding scale provided pantoprazole [Protonix] 40 mg tablet,delayed release (DR/EC) 40 mg PO BID 30 Days Qty: 30 1RF Seroquel 50 mg Tablet 50 mg PO BEDTIME carvedilol 3.125 mg tablet 3.125 mg PO Q12H isosorbide mononitrate 60 mg tablet extended release 24 hr 120 mg PO BID aripiprazole 10 mg tablet 5 mg PO BEDTIME ondansetron HCl 4 mg tablet 4 mg PO Q6H PRN (Reason: nausea and vomiting) Qty: 20 0RF escitalopram oxalate 10 mg Tablet 10 mg PO DAILY 30 Days Qty: 30 1RF atorvastatin 40 mg tablet 40 mg PO BEDTIME 30 Days Qty: 30 1RF ondansetron HCl 4 mg tablet 4 mg PO Q8H PRN (Reason: Nausea And Vomiting) 30 Days Qty: 60 1RF aspirin 81 mg Tablet,Delayed Release (Dr/Ec) 81 mg PO QAM 30 Days Qty: 30 1RF nitroglycerin [Nitrostat] 0.4 mg Tablet, Sublingual 0.4 mg SUBLINGUAL Q5M PRN (Reason: Chest Pain) 30 Days Qty: 60 1RF Rx Instructions: do not exceed 3 doses per episode ranolazine 500 mg tablet extended release 12 hr 500 mg PO BID 30 Days Qty: 60 1RF methocarbamol 750 mg tablet 750 mg PO Q6H PRN (Reason: spasms) Qty: 20 0RF cyclobenzaprine 10 mg tablet 10 mg PO BID PRN (Reason: muscle spasm) Qty: 20 0RF acetaminophen 500 mg tablet 500 mg PO Q6H PRN (Reason: pain) Qty: 30 0RF Discharge Orders: Discharge ED (Routine); Ordered 01/27/22 Ordered By: Harjinder Bowen Referrals: Cecily Miller MD [Primary Care Provider] - Discharge Diet: Usual diet Discharge Activity: Increase activity as tolerated Patient Instructions: Chest Pain (ED) Activity Restrictions/Additional Instructions: Thank you for visiting the emergency department. You were seen and evaluated for chest pain. The exact cause of the symptoms is unclear however based on recent previous evaluation as well as EKG I do not feel that further evaluation is warranted at this time. Please call the cardiology clinic in the morning and discussed your case with cardiology. Please follow-up with your primary care provider. Return to the emergency department for anything that you are concerned about a feel needs emergency department evaluation however please use to the emergency department responsibly for significant changes or emergencies only. Coding Level of Care Code ED Estimator And Drafter for Marcelino Fwd Exam Comprehensive
--- NOTE | 2022-01-26 23:03 | ECG_ITS ---
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 Measurements Intervals [place] Rate: 78 P: 67 [place]: 158 QRS: 72 QRSD: 87 T: 70 QT: 348 QTc: 398 Interpretive Statements SINUS RHYTHM MINIMAL VOLTAGE CRITERIA FOR LVH, CONSIDER NORMAL VARIANT [MEETS CRITERIA IN ONE OF: R(aVL), S(V1), R(V5), R(V5/V6)+S(V1)] Compared to ECG 01/26/2022 20:35:30 No significant changes Electronically Signed On 01-27-2022 19:02:51 CDT by Heath Pacheco M.D. [id number]
[2022-01-26 23:05] VITALS: BP 142/77; PULSE 80; RESP 18; TEMP 36.7; O2SAT 98; BMI 23.1
[2022-01-26 23:22] VITALS: BP 138/76; BP 151/74; BP 153/91; PULSE 104; PULSE 77; PULSE 88
[2022-01-26] MEDS: lidocaine 2% viscous 15 ML, aluminum-mag hydrox-simethicon 30 ML, sucralfate oral liq 1 GM PO (23:26)
[2022-01-26] MEDS: nitroglycerin 0.4 mg sublingual Tablet SUBLINGUAL (23:26)
[2022-01-27 00:05] VITALS: BP 142/77; PULSE 80; RESP 18; TEMP 36.7; O2SAT 98
== END 2022-01-27 00:11 | disposition home or self-care (01) ==
PROVIDERS: Emergency Provider Emergency Medicine; PCP Internal Medicine
DX: R07.9 Chest pain, unspecified (principal); Z76.5 Malingerer [conscious simulation]; Z79.82 Long term (current) use of aspirin; Z79.02 Long term (current) use of antithrombotics/antiplatelets; Z79.4 Long term (current) use of insulin; I10 Essential (primary) hypertension; I25.10 Atherosclerotic heart disease of native coronary artery without angina pectoris; Z86.73 Personal history of transient ischemic attack (TIA), and cerebral infarction without residual deficits; E11.9 Type 2 diabetes mellitus without complications; E78.5 Hyperlipidemia, unspecified; Z87.891 Personal history of nicotine dependence
CPT/HCPCS: 93005; 99284

== ENCOUNTER 2022-01-30 12:30 | Emergency (ER) | payer OTHER, MEDICAID, SELFPAY ==
--- NOTE | 2022-01-30 12:33 | ECG_ITS ---
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 Measurements Intervals [place] Rate: 90 P: 75 [place]: 146 QRS: 73 QRSD: 89 T: 72 QT: 324 QTc: 398 Interpretive Statements SINUS RHYTHM MODERATE VOLTAGE CRITERIA FOR LVH, CONSIDER NORMAL VARIANT [MEETS CRITERIA IN ONE OF: R(aVL), S(V1), R(V5), R(V5/V6)+S(V1)] INTERPRETATION BASED ON A DEFAULT AGE OF 40 YEARS Compared to ECG 01/26/2022 23:13:33 No significant changes Electronically Signed On 01-30-2022 18:28:00 CDT by Anatoliy Jean Baptiste M.D. [email or web address]
[2022-01-30 12:39] VITALS: BP 127/71; PULSE 93; RESP 18; TEMP 36.6; O2SAT 99; BMI 22.7
--- NOTE | 2022-01-30 12:48 | W.ED.CHESTPA ---
HPI - Chest Pain General: Chief Complaint: Chest Pain Stated Complaint: chest pain Time Seen by Provider: 01/30/22 12:32 Source: patient Mode of arrival: ambulatory Limitations: no limitations History of Present Illness: 46-year-old male states been having chest pain over the last 2 hours. He has been seen here multiple times in the past for his pain has had multiple cath this year. He states that sharp in nature denies any worsening proved factors denies any diaphoresis denies any nausea. Associated symptoms: Deny abdominal pain, dyspnea, fever(s), nausea or vomiting Review of Systems Const: Denies: fever(s), chills, body aches or change in appetite Eyes: Denies: blurry vision or eye discomfort ENMT: Denies: throat pain or dental pain Card: Reports: chest pain Resp: Denies: dyspnea GI: Denies: abdominal pain, nausea, vomiting or diarrhea : Denies: dysuria Musc: Denies: neck pain or back pain Skin/Breast: Denies: rash Neuro: Denies: headache(s) Psych: Denies: depression Melquiades/Lymph: Denies: easy bruising All/Imm: Denies: urticaria PFSH ED PFSH: Medical History Angina pectoris, unstable Atherosclerotic heart disease of [place] coronary artery with unstable angina pectoris Benign essential HTN CAD (coronary artery disease) 9stents Chest pain CVA (cerebrovascular accident) Diabetes Dyslipidemia (high LDL; low HDL) Former smoker HTN (hypertension) Surgical History History of appendectomy Family History Other No pertinent family history Social History Smoking and tobacco status: former smoker Alcohol intake: never Housing: House Physical Exam Const: COMMON NORMALS: no acute distress, patient oriented x3 and healthy appearing HENMT: COMMON NORMALS: normocephalic and atraumatic HEAD & SCALP: normocephalic and atraumatic Eye: COMMON NORMALS: Equal, round and reactive pupils present and EOMs intact bilaterally PUPIL: Yes Equal, round and reactive pupils present Neck/C-Spine: COMMON NORMALS: full ROM and supple Chest: COMMONS NORMALS: normal inspection of the chest and normal palpation of entire chest wall Resp: COMMON NORMALS: normal respiratory effort, No retractions, No use of accessory muscles and clear to auscultation bilaterally AUSCULTATION: clear to auscultation bilaterally Cardio: COMMON NORMALS: regular rate, regular rhythm and No murmurs present (Cardio) RATE: regular rate RHYTHM: regular rhythm GI: COMMON NORMALS: Normal to inspection, nondistended, normoactive bowel sounds present, Soft to palpation, non-tender and no masses PALPATION: Yes Soft to palpation Extremity: COMMON NORMALS: normal to inspection and full ROM Neuro: COMMON NORMALS: patient oriented x3, moves all extremities and no focal motor deficits Psych: COMMON NORMALS: mental status grossly normal, Normal thought process present and cooperative THOUGHT PROCESS: Normal thought process present Skin: COMMON NORMALS: no rashes or lesions noted and no wounds GENERAL SKIN EXAM: no rashes or lesions noted Course Vital Signs: Vital signs: Vital Signs Temperature 97.9 F 01/30/22 12:39 Pulse Rate 97 01/30/22 13:00 Respiratory Rate 16 01/30/22 13:00 Blood Pressure 127/71 01/30/22 12:39 Pulse Oximetry 100 01/30/22 13:00 MDM - Chest Pain Medical Decision Making Patient presents for chest pain he is been seen here multiple times for pain in the past. He is well-appearing here EKG is normal he has had multiple caths this year. He has no signs of acute coronary syndrome he stable for discharge follow-up PCP return if worsening. EKG Data EKG 1: I personally reviewed and interpreted this EKG as follows: EKG interpretation date: 01/30/22 EKG interpretation time: 12:44 Interpretation: nsr hr [address] or t wave abnormalities qrs 89 qtc 372 Discharge Plan Discharge Patient Disposition: Home Clinical Impression: Atypical chest pain Condition: Stable Prescriptions: No Action clopidogrel 75 mg tablet 75 mg PO QAM Qty: 30 1RF rrifjulgmw-dmzdkrwwjvmtb-ebhr 50-325-40 mg tablet 2 tab PO BID PRN (Reason: Migraine Headache) Hold Instructions: interaction with aspirin albuterol sulfate [ProAir HFA] 90 mcg/actuation HFA aerosol inhaler 2 puff INHALATION Q4H PRN (Reason: Shortness Of Breath) 1 Days Qty: 30 0RF hydroxyzine HCl 25 mg tablet 25 mg PO BID PRN (Reason: nausea and vomiting) insulin glargine [Lantus Solostar U-100 Insulin] 100 unit/mL (3 mL) insulin pen 5 unit SUBCUT BEDTIME Qty: 15 0RF insulin aspart U-100 [Novolog Flexpen U-100 Insulin] 100 unit/mL (3 mL) insulin pen See Rx Instructions .ROUTE .COMPLEX Qty: 15 0RF Rx Instructions: Inject, 3 times daily, after meals, based on sliding scale provided pantoprazole [Protonix] 40 mg tablet,delayed release (DR/EC) 40 mg PO BID 30 Days Qty: 30 1RF Seroquel 50 mg Tablet 50 mg PO BEDTIME carvedilol 3.125 mg tablet 3.125 mg PO Q12H isosorbide mononitrate 60 mg tablet extended release 24 hr 120 mg PO BID aripiprazole 10 mg tablet 5 mg PO BEDTIME ondansetron HCl 4 mg tablet 4 mg PO Q6H PRN (Reason: nausea and vomiting) Qty: 20 0RF escitalopram oxalate 10 mg Tablet 10 mg PO DAILY 30 Days Qty: 30 1RF atorvastatin 40 mg tablet 40 mg PO BEDTIME 30 Days Qty: 30 1RF ondansetron HCl 4 mg tablet 4 mg PO Q8H PRN (Reason: Nausea And Vomiting) 30 Days Qty: 60 1RF aspirin 81 mg Tablet,Delayed Release (Dr/Ec) 81 mg PO QAM 30 Days Qty: 30 1RF nitroglycerin [Nitrostat] 0.4 mg Tablet, Sublingual 0.4 mg SUBLINGUAL Q5M PRN (Reason: Chest Pain) 30 Days Qty: 60 1RF Rx Instructions: do not exceed 3 doses per episode ranolazine 500 mg tablet extended release 12 hr 500 mg PO BID 30 Days Qty: 60 1RF methocarbamol 750 mg tablet 750 mg PO Q6H PRN (Reason: spasms) Qty: 20 0RF acetaminophen 500 mg tablet 500 mg PO Q6H PRN (Reason: pain) 5 Days Qty: 20 0RF Discharge Orders: Discharge ED (Routine); Ordered 01/30/22 Ordered By: Jb Jaime Referrals: Cecily Miller MD [Primary Care Provider] - Discharge Diet: Advance as tolerated Discharge Activity: Resume usual activity Patient Instructions: Chest Pain (ED) Coding Level of Care Code ED Cryptography Teacher for Marcelino Stephen
[2022-01-30] MEDS: naproxen 500 mg Tablet PO (12:58)
[2022-01-30 13:00] VITALS: PULSE 97; RESP 16; O2SAT 100
== END 2022-01-30 13:01 | disposition home or self-care (01) ==
PROVIDERS: Emergency Provider Emergency Medicine; PCP Internal Medicine
DX: R07.89 Other chest pain (principal); Z79.82 Long term (current) use of aspirin; Z79.4 Long term (current) use of insulin; I25.10 Atherosclerotic heart disease of native coronary artery without angina pectoris; Z86.73 Personal history of transient ischemic attack (TIA), and cerebral infarction without residual deficits; E11.9 Type 2 diabetes mellitus without complications; E78.5 Hyperlipidemia, unspecified; I10 Essential (primary) hypertension; Z87.891 Personal history of nicotine dependence
CPT/HCPCS: 93005; 99283

== ENCOUNTER 2022-01-31 21:03 | Observation (INO) | payer OTHER, MEDICAID, SELFPAY ==
[2022-01-31 21:08] VITALS: BP 122/77; PULSE 92; RESP 16; TEMP 36.2; O2SAT 99
--- NOTE | 2022-01-31 21:08 | ED_ITS ---
HPI - Chest Pain General: Chief Complaint: Chest Pain Stated Complaint: chest pressure Time Seen by Provider: 01/31/22 21:07 History of Present Illness: Mr. June is a 46-year-old gentleman with history of psychiatric disorder, hypertension, hyperlipidemia, CAD status post PCI, chronic chest pain and malingering who presents to the emergency department due to chest pain. He reports onset of symptoms approximately 1 hour prior to arrival. He reports being active earlier in the day including doing kraig. He describes pressure in the left anterior chest which radiates down the left arm. Intensity is severe. Course has persisted. Denies other associated typical cardiac features. No other specific changes in health, exacerbating, or alleviating factors identified. Onset (ago): hour(s) Timing of current episode: constant Prior episodes: Yes Onset: during rest Pain location: left chest Pain radiation: left arm Severity: severe Quality: aching and heaviness Review of Systems General: Reports: 10 or more systems reviewed and unremarkable except in HPI and below PFSH ED PFSH: Medical History Angina pectoris, unstable Benign essential HTN CAD (coronary artery disease) 9stents Chest pain CVA (cerebrovascular accident) Diabetes Dyslipidemia (high LDL; low HDL) Former smoker HTN (hypertension) Surgical History History of appendectomy Family History Other No pertinent family history Social History Smoking and tobacco status: former smoker Alcohol intake: never Housing: House Physical Exam Const: COMMON NORMALS: alert GENERAL APPEARANCE: cooperative and well d eveloped HENMT: COMMON NORMALS: normocephalic and atraumatic HEAD & SCALP: normocephalic and atraumatic Eye: COMMON NORMALS: conjunctivae normal CONJUNCTIVA: Yes conjunctivae normal SCLERA: sclerae normal Neck/C-Spine: COMMON NORMALS: supple GENERAL: Yes trachea midline Chest: COMMONS NORMALS: normal palpation of entire chest wall Resp: COMMON NORMALS: clear to auscultation bilaterally EFFORT & INSPECTIO N: Yes able to speak in complete sentences AUSCULTATION: clear to auscultation bilaterally Cardio: COMMON NORMALS: regular rate and regular rhythm RATE: regular rate RHYTHM: regular rhythm GI: COMMON NORMALS: Soft to palpation PALPATION: Yes Soft to palpation and No Tenderness to palpation present (GI) Extremity: GENERAL: Yes normal exam except as noted and No edema Neuro: COMMON NORMALS: moves all extremities SENSORIUM/ORIENTATION: Yes alert and No Orientation impaired Psych: COMMON NORMALS: mental status grossly normal and Normal thought process present THOUGHT PROCESS: Normal thought process present Course Vital Signs: Vital signs: Vital Signs Temperature 98 F 02/01/22 11:04 Pulse Rate 89 02/01/22 11:04 Respiratory Rate 10 L 02/01/22 11:04 Blood Pressure 146/105 02/01/22 11:04 Pulse Oximetry 98 02/01/22 11:04 Oxygen Delivery Me thod 02/01/22 07:44 Fraction of Inspir ed Oxygen 21 02/01/22 10:00 MDM - Chest Pain Medical Decision Making 46-year-old gentleman with complex past medical history including CAD and chronic chest pain. He has underwent multiple cardiac catheterizations this year including most recently on 01/03/2022. Presents to the ER for left-sided severe chest heaviness with radiation down her arm. Initial EKG mildly different than prior though similar to older EKGs with history of variable morphology noted in history. Chest x-ray without lobar consolidation. Discussed with cardiology who recommended troponins given patient's complex past medical history. In process of drawing labs patient became unresponsive and lost detectable pulse. Approximately 1 minute of CPR was performed with ROSC obtained. Unfortunately patient was not on telemetry or defibrillator prior to ROSC. The exact etiology is unclear. Additional laboratory studies obtained and patient admitted to hospitalist service for further evaluation. Medical Records I reviewed the patient's medical records. Lab Data I reviewed the patient's lab results. : 01/31/22 23:00 01/31/22 23:00 Radiology Impressions Chest X-Ray 02/01/22 02:01 IMPRESSION: No chest radiographic evidence of acute cardiopulmonary disease. Venous Duplex 02/01/22 02:54 IMPRESSION: No evidence of deep vein thrombosis. Laboratory Results WBC 8.3 10^3/uL (4.0-10.0) 01/31/22 23:00 RBC 4.31 10^6/uL (4.1-5.3) 01/31/22 23:00 Hgb Cancelled 01/31/22 Unknown Hct Cancelled 01/31/22 Unknown MCV 73.8 fl (80-94) L 01/31/22 23:00 MCH 22.5 pg (28.0-34.0) L 01/31/22 23:00 MCHC 30.5 g/dL (30.0-36.0) 01/31/22 23:00 RDW 17.3 % (12.1-15.1) H 01/31/22 23:00 Plt Count 281 10^3/cmm (130-400) 01/31/22 23:00 MPV 12.3 fL (7.4-10.4) H 01/31/22 23:00 Neut % (Auto) 51.4 % 01/31/22 23:00 Lymph % (Auto) 32.9 % 01/31/22 23:00 [place] % (Auto) 11.9 % 01/31/22 23:00 Eos % (Auto) 2.9 % 01/31/22 23:00 Baso % (Auto) 0.7 % 01/31/22 23:00 Neut # (Auto) 4.25 10^3/uL (1.8-7.7) 01/31/22 23:00 Lymph # (Auto) 2.7 10^3/uL (0.8-4.8) 01/31/22 23:00 [place] # (Auto) 1.0 10^3/uL (0.2-0.9) H 01/31/22 23:00 Eos # (Auto) 0.2 10^3/uL (0.0-0.8) 01/31/22 23:00 Baso # (Auto) 0.1 10^3/uL (0.0-0.1) 01/31/22 23:00 Nucleated RBC % (auto) 0 % 01/31/22 23:00 Nucleated RBCs # 0.0 /100WBC 01/31/22 23:00 Sodium 139 mmol/L (136-145) 01/31/22 23:00 Potassium 4.0 mmol/L (3.5-5.1) 01/31/22 23:00 Chloride 106 mmol/L (98-107) 01/31/22 23:00 Carbon Dioxide 22 mmol/L (22-29) 01/31/22 23:00 Anion Gap 15.0 (5-19) 01/31/22 23:00 BUN 17 mg/dL (6-20) 01/31/22 23:00 Creatinine 0.9 mg/dL (0.7-1.2) 01/31/22 23:00 GFR Calculation 91.7 mL/min (90-130) 01/31/22 23:00 Glucose 93 mg/dL (65-115) 01/31/22 23:00 POC Glucose 93 mg/dL (70-110) 01/31/22 22:46 Calculated Osmolality 289 mOsm/kg (285-295) 01/31/22 23:00 Lactic Acid 1.5 mmol/L (0.5-2.2) 01/31/22 23:00 Calcium 8.8 mg/dL (8.5-10.5) 01/31/22 23:00 Total Bilirubin 0.2 mg/dL (0.15-1.2) 01/31/22 23:00 AST 9 U/L (0-40) 01/31/22 23:00 ALT 6 U/L (0-41) 01/31/22 23:00 Alkaline Phosphatase 73 IU/L (40-130) 01/31/22 23:00 Troponin T Baseline 7 ng/L (0-15) 01/31/22 23:00 Troponin T 120 Minute 11.30 ng/L (0-15) 02/01/22 01:01 Delta Troponin T 4.30 ABS# (0-10) 02/01/22 01:01 Total Protein 6.9 g/dL (6.6-8.7) 01/31/22 23:00 Albumin 4.1 g/dL (3.5-5.2) 01/31/22 23:00 Globulin 2.8 g/dL (1.3-4.6) 01/31/22 23:00 Lipase 95 U/L (13-60) H 01/31/22 23:00 Critical Care Time Critical Care Time: Critical Care Time: Yes Total Critical Care Time: 45 Attestation: Due to a high probability of clinically significant, possibly life threatening deterioration, the patient required my highest level of attention and preparedness to intervene emergently and I personally spent this critical care time directly and personally managing the patient. This critical care time included obtaining a history; examining the patient; pulse oximetry; ordering and review of laboratory and imaging studies; arranging urgent treatment with development of a management plan; evaluation of patient's response to treatment; frequent reassessment; and, discussions with other providers as applicable. It was exclusive of separately billable procedures. Primary system involved is cardiopulmonary Discharge Plan Discharge Patient Disposition: Placed in Observation Admit Provider: Hector Rosado Clinical Impression: Chest pain, Absent pulse, Malingering Discharge Diet: Cardiac Discharge Activity: Increase activity as tolerated Coding Level of Care Code ED Primary Care Sales Representative for Chg Fwd Exam Comprehensive
--- NOTE | 2022-01-31 21:12 | ECG_ITS ---
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 Measurements Intervals [place] Rate: 98 P: 53 [place]: 137 QRS: 55 QRSD: 91 T: 47 QT: 319 QTc: 408 Interpretive Statements SINUS RHYTHM MODERATE VOLTAGE CRITERIA FOR LVH, CONSIDER NORMAL VARIANT [MEETS CRITERIA IN ONE OF: R(aVL), S(V1), R(V5), R(V5/V6)+S(V1)] Compared to ECG 01/30/2022 12:44:15 No significant changes Electronically Signed On 02-02-2022 17:42:23 CDT by Heath Pacheco M.D. [id number] f
[2022-01-31 21:31] VITALS: BP 122/77; PULSE 92; RESP 16; TEMP 36.2; O2SAT 99
--- NOTE | 2022-01-31 21:33 | XRR_ITS ---
PROCEDURE INFORMATION: Exam: XR Chest Exam date and time: 01/31/2022 9:37 PM Age: 46 years old Clinical indication: Left-sided; Prior surgery; Surgery date: 1-6 months; Surgery type: Stents 06/2021 and 07/2021; Patient HX: Chest pain; PT states he was carrying multiple pks of shingles today when chest pain began left side; Additional info: Left sided chest pain TECHNIQUE: Imaging protocol: Radiologic exam of the chest. Views: 1 view. COMPARISON: CR (CHEST, ) 01/26/2022 9:01 PM FINDINGS: Lungs: Unremarkable. No consolidation. Pleural spaces: Unremarkable. No pleural effusion. No pneumothorax. Heart/Mediastinum: Unremarkable. No cardiomegaly. Vasculature: Coronary artery stents. Bones/joints: Unremarkable. XR/XR chest 1V portable [id number] IMPRESSION: No acute findings.
[2022-01-31 21:41] VITALS: RESP 20
[2022-01-31] MEDS: morphine 4 mg/mL SDV 1 mL IM (21:41)
[2022-01-31] MEDS: nitroglycerin 0.4 mg sublingual Tablet SUBLINGUAL (21:42)
--- NOTE | 2022-01-31 21:45 | PC.NURSE ---
First nitro tab administered at 2142.
--- NOTE | 2022-01-31 21:52 | PC.NURSE ---
Pt rates chest pain at 12/28 @ 2148. Administered 2nd nitro tab @ [address] Bow[address].
[2022-01-31 21:53] VITALS: BP 118/55; PULSE 84; RESP 14; O2SAT 97
--- NOTE | 2022-01-31 21:58 | PC.NURSE ---
Recheck pt at 2156 and pt rated pain at 6/10 and states that they are still feeling tightness in chest as well as the pain. Administered 3rd dose of nitro @ 2158.
--- NOTE | 2022-01-31 22:03 | PC.NURSE ---
Rechecked pt after administered 3rd dose of nitro. Pt rates pain at 5/10 but states that the pressure in chest just won't let up . Provider notified.
[2022-01-31] MEDS: lidocaine 2% viscous 15 ML, aluminum-mag hydrox-simethicon 30 ML, sucralfate oral liq 1 GM PO (22:23)
[2022-01-31 22:40] VITALS: BP 165/81; PULSE 75; RESP 16; O2SAT 97
--- NOTE | 2022-01-31 22:55 | ECG_ITS ---
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 Measurements Intervals [place] Rate: 76 P: 74 [place]: 154 QRS: 77 QRSD: 87 T: 74 QT: 347 QTc: 391 Interpretive Statements SINUS RHYTHM MINIMAL VOLTAGE CRITERIA FOR LVH, CONSIDER NORMAL VARIANT [MEETS CRITERIA IN ONE OF: R(aVL), S(V1), R(V5), R(V5/V6)+S(V1)] Compared to ECG 01/31/2022 21:12:35 No significant changes Electronically Signed On 02-02-2022 17:42:11 CDT by Heath Pacheco M.D. [id number] f
[2022-01-31 23:17] LABS: Basophils # 0.1 10^3/uL (0.0-0.1); Basophils % 0.7 %; Eosinophils # 0.2 10^3/uL (0.0-0.8); Eosinophils % 2.9 %; Hematocrit 31.8 % (42.0-52.0); Hemoglobin 9.7 g/dL (11.7-16.6); Lymphocytes # 2.7 10^3/uL (0.8-4.8); Lymphocytes % 32.9 %; Mean Corpuscular HGB Conc 30.5 g/dL (30.0-36.0); Mean Corpuscular Hemoglobin 22.5 pg (28.0-34.0); Mean Corpuscular Volume 73.8 fl (80-94); Mean Platelet Volume 12.3 fL (7.4-10.4); Monocytes % 11.9 %; Neutrophils # 4.25 10^3/uL (1.8-7.7); Neutrophils % 51.4 %; Nucleated Red Blood Cells % 0 %; Platelet Count 281 10^3/cmm (130-400); Red Blood Count 4.31 10^6/uL (4.1-5.3); Red Cell Distribution Width 17.3 % (12.1-15.1); White Blood Count 8.3 10^3/uL (4.0-10.0)
[2022-01-31 23:38] LABS: Lactic Sepsis W/Reflex 1.5 mmol/L (0.5-2.2)
[2022-01-31 23:40] LABS: Alanine Aminotransferase 6 U/L (0-41); Albumin Level 4.1 g/dL (3.5-5.2); Alkaline Phosphatase 73 IU/L (40-130); Aspartate Amino Transferase 9 U/L (0-40); Blood Urea Nitrogen 17 mg/dL (6-20); Calcium 8.8 mg/dL (8.5-10.5); Carbon Dioxide 22 mmol/L (22-29); Chloride 106 mmol/L (98-107); Globulin 2.8 g/dL (1.3-4.6); Glomerular Filtration Rate 91.7 mL/min (90-130); Glucose 93 mg/dL (65-115); Lipase 95 U/L (13-60); Osmolality Calculated 289 mOsm/kg (285-295); Sodium 139 mmol/L (136-145); Total Bilirubin 0.2 mg/dL (0.15-1.2); Total Protein 6.9 g/dL (6.6-8.7)
[2022-01-31 23:41] LABS: Troponin(5th) Baseline 7 ng/L (0-15)
[2022-02-01] VITALS (20 sets, daily range): BP systolic 109–167; BP diastolic 68–105; PULSE 47–99; RESP 9–20; TEMP 36.4–36.6; O2SAT 98–100
--- NOTE | 2022-02-01 00:30 | ECG_ITS ---
[facility] Test Date: 2022-02-01 Pat Name: Alonso June Department: Room: Gender: Male Rn Acute Care: : 1975 Requested By: Harjinder Bowen Order Number: [id number] Janel MD: Heath Pacheco M.D. Measurements Intervals [place] Rate: 68 P: 67 AK: 158 QRS: 75 QRSD: 90 T: 72 QT: 364 QTc: 388 Interpretive Statements SINUS RHYTHM WITH SINUS ARRHYTHMIA MODERATE VOLTAGE CRITERIA FOR LVH, CONSIDER NORMAL VARIANT [MEETS CRITERIA IN ONE OF: R(aVL), S(V1), R(V5), R(V5/V6)+S(V1)] Compared to ECG 01/31/2022 22:55:12 No significant changes Electronically Signed On 02-02-2022 17:49:33 CDT by Heath Pacheco M.D. [email or web address]. [facility] [place] [facility].[employer]/store/OM/[id number]
--- NOTE | 2022-02-01 02:01 | XRR_ITS ---
PROCEDURE INFORMATION: Exam: XR Chest Exam date and time: 02/01/2022 2:27 AM Age: 46 years old Clinical indication: Other: Post chest compressions TECHNIQUE: Imaging protocol: Radiologic exam of the chest. Views: 1 view. COMPARISON: CR XR chest 1V portable [id number] 01/31/2022 9:37 PM FINDINGS: Tubes, catheters and devices: Some EKG leads are seen overlying the chest, limiting assessment. Lungs: There are normal lung volumes without interstitial or airspace opacities. Pleural spaces: There are no pleural effusions or pneumothorax. Heart/Mediastinum: The heart size is normal. The mediastinal contour is normal. The trachea is in the midline. Bones/joints: No acute abnormalities. XR/XR chest 1V portable [id number] IMPRESSION: No chest radiographic evidence of acute cardiopulmonary disease.
[2022-02-01] MEDS: ondansetron 2 mg/ML SDV 2 mL 4 MG IVP (02:37)
--- NOTE | 2022-02-01 02:38 | P.HP_ITS ---
Providers/Chief Complaint Admitting Physician: Hector Rosado MD Primary Care Provider: Cecily Miller MD Chief Complaint: chest pressure History of Present Illness Alonso June is a 46 year old male with a past medical history of multiple hospital admissions for chest pain, recent hospitalization for chest pain December 2021 with coronary angiogram without any evidence of obstructive CAD, history of multiple stents, he has had multiple coronary angiograms in the last year, he has had multiple hospitalizations for strokelike symptoms, has received tPA on multiple occasions, most recently his recurrent strokelike symptoms have not been treated with tPA due to concerns for conversion disorder and have resolved spontaneously on discharge, he is also left AGAINST MEDICAL ADVICE, history of alcohol abuse, high likelihood of conversion disorder and bipolar disorder and malingering, has had multiple ER visits recently for chest pain. During his December admission he was found to have no significant disease in left main, left LAD, right or circumflex coronary artery, patent prior left main LAD and diagonal and RCA stents EF of 65%. Since his December hospitalization he has had 9 ER visits for chest pain. During this hospitalization, he presented with chest pain, as nurse was triaging patient, he was not hooked up to any monitor, she was getting ready to draw his blood patient became nonresponsive according to ER physician. According to the nurse no pulse was detectable, so she started CPR, patient received roughly a minute of CPR, return of spontaneous circulation t hereafter, pulse detectable, alert oriented x3, EKG did not show any significant arrhythmia episodes, nor was defibrillation required however patient was not on telemetry to indicate what exactly had happened or if he had any malignant arrhythmia. During my examination, he was complaining of left-sided chest pain, radiating down his left arm, tells me that its sharp, but his chest is also tender, has received CPR, repeat chest x-ray pending alert oriented x3, review of his EKG shows normal sinus rhythm, no acute ST-T wave changes, no significant troponin elevation. Patient tells me that currently he is living in [place], by himself, denies smoking, denies drug use Review of Systems General: Reports: ROS unobtainable due to mental status Const: Denies: fever(s) or chills Card: Reports: chest pain; Denies: palpitations or irregular heart rhythm Neuro: Denies: headache(s), numbness in extremities or weakness in extremities Medications/Allergies Home Medications Medication Instructions Recorded Confirmed Last Taken Type lrztxyfmby-dmswedrwgycmx-ubmnqdnz 2 tab PO BID PRN Migraine Headache 09/03/21 01/23/22 Unknown History 50 mg-325 mg-40 mg tablet albuterol sulfate 90 mcg/actuation 2 puff inhalation Q4H PRN 10/01/21 01/23/22 Unknown Rx aerosol inhaler (ProAir HFA) Shortness Of Breath 1 day #30 grams aspirin 81 mg tablet,delayed 81 mg PO QAM 30 days #30 tabs 10/11/21 01/23/22 01/23/22 Rx release atorvastatin 40 mg tablet 40 mg PO BEDTIME 30 days #30 tabs 10/11/21 01/23/22 01/22/22 Rx escitalopram oxalate 10 mg tablet 10 mg PO DAILY 30 days #30 tabs 10/11/21 01/23/22 01/23/22 Rx nitroglycerin 0.4 mg sublingual 0.4 mg sublingual Q5M PRN Chest 10/11/21 01/23/22 Unknown Rx tablet (Nitrostat) Pain 30 days #60 tabs ondansetron HCl 4 mg tablet 4 mg PO Q8H PRN Nausea And 10/11/21 01/23/22 Unknown Rx Vomiting 30 days #60 tabs ranolazine 500 mg tablet,extended 500 mg PO BID 30 days #60 tabs 10/11/21 01/23/22 01/23/22 Rx release,12 hr clopidogrel 75 mg tablet 75 mg PO QAM #30 tabs 11/04/21 01/23/22 01/23/22 Rx methocarbamol 750 mg tablet 750 mg PO Q6H PRN spasms #20 tabs 11/10/21 01/23/22 Unknown Rx hydroxyzine HCl 25 mg tablet 25 mg PO BID PRN nausea and 01/02/22 01/23/22 Unkno wn History vomiting insulin aspart U-100 100 unit/mL See Rx Instructions .Route 01/03/22 01/23/22 Unknown Rx (3 mL) subcutaneous pen (Novolog .COMPLEX #15 mL Flexpen U-100 Insulin aspart) insulin glargine 100 unit/mL (3 5 unit (0.05 mL) SUBCUT BEDTIME 01/03/22 01/23/22 01/22/22 Rx mL) subcutaneous pen (Lantus #15 mL Solostar U-100 Insulin) pantoprazole 40 mg tablet,delayed 40 mg PO BID 30 days #30 tabs 01/12/22 01/23/22 01/23/22 Rx release (Protonix) aripiprazole 10 mg tablet 5 mg PO BEDTIME 01/23/22 01/23/22 01/22/22 History carvedilol 3.125 mg tablet 3.125 mg PO Q12H 01/23/22 01/23/22 01/23/22 History isosorbide mononitrate 60 mg 120 mg PO BID 01/23/22 01/23/22 01/23/22 History tablet,extended release 24 hr ondansetron HCl 4 mg tablet 4 mg PO Q6H PRN nausea and 01/23/22 Unknown Rx vomiting #20 tabs quetiapine 50 mg tablet (Seroquel) 50 mg PO BEDTIME 01/23/22 01/23/22 01/22/22 History Allergies Allergy/AdvReac Type Severity Reaction Status Date / Time butorphanol [From Stadol] Allergy ALGY-Difficulty Verified 01/22/22 13:01 Breathing diphenhydramine Allergy ADR-Itching Verified 01/22/22 13:01 [From Benadryl] Iodinated Contrast Media Allergy Unresponsiv Verified 01/22/22 13:01 e iodine Allergy Unresponsiv Verified 01/22/22 13:01 e ketorolac [From Toradol] Allergy ALGY-Difficulty Verified 01/22/22 13:01 Breathing nalbuphine [From Nubain] Allergy Unknown Verified 01/22/22 13:01 Penicillins Allergy Unknown Verified 01/22/22 13:01 promethazine [From Phenergan] Allergy Unknown Verified 01/22/22 13:01 PFSH Acute PFSH: Medical History Angina pectoris, unstable Atherosclerotic heart disease of [place] coronary artery with unstable angina pectoris Benign essential HTN CAD (coronary artery disease) 9stents Chest pain CVA (cerebrovascular accident) Diabetes Dyslipidemia (high LDL; low HDL) Former smoker HTN (hypertension) Surgical History History of appendectomy Family History Other No pertinent family history Social History Smoking and tobacco status: former smoker Alcohol intake: never Housing: House Vitals/I&O/Wt Last Vital Signs Temp 97.2 F L 01/31/22 21:31 Pulse 99 02/01/22 01:30 Resp 20 H 02/01/22 01:30 BP 163/82 02/01/22 01:30 Pulse Ox 99 02/01/22 01:30 O2 Del Method 02/01/22 01:30 Weight last 48 hrs Weight 63.957 kg Physical Exam Const: COMMON NORMALS: no acute distress and patient oriented x3 HENMT: COMMON NORMALS: normocephalic HEAD & SCALP: normocephalic Eye: COMMON NORMALS: Equal, round and reactive pupils present and EOMs intact bilaterally Neck/C-Spine: COMMON NORMALS: no JVD Resp: COMMON NORMALS: normal respiratory effort, No retractions, No use of accessory muscles and clear to auscultation bilaterally AUSCULTATION: clear to auscultation bilaterally Cardio: COMMON NORMALS: no JVD, regular rate, regular rhythm, S1 normal heart sound present and S2 normal heart sound present RATE: regular rate RHYTHM: regular rhythm HEART SOUNDS: S1 normal heart sound present and S2 normal heart sound present GI: COMMON NORMALS: Normal to inspection, nondistended, normoactive bowel sounds present, Soft to palpation, non-tender, No hepatosplenomegaly present, no masses and no bruits PALPATION: Yes Soft to palpation and Yes No hepatosplenomegaly present Extremity: COMMON NORMALS: capillary refill normal, no clubbing, cyanosis or edema, no calf tenderness and no pedal edema Neuro: COMMON NORMALS: patient oriented x3, CN's II-XII intact bilaterally, moves all extremities and no focal motor deficits Psych: COMMON NORMALS: mental status grossly normal Data : 01/31/22 23:00 01/31/22 23:00 A&P Assessment and plan (1) Chest pain: Status: Acute (2) Absent pulse: Status: Acute (3) Benign essential HTN: Status: Acute (4) CAD (coronary artery disease): Status: Acute (5) Malingering: Status: Acute Plan Absent pulse, atypical chest pain -Its not clear if patient has had a true cardiac arrest event -He did receive CPR for roughly a minute, had ROSC, EKG since then have not shown any acute ST-T wave changes, no malignant arrhythmias, telemetry does not show any malignant arrhythmias, no significant electrode abnormalities, no significant troponin elevation -Unfortunately patient was not on a monitor during the whole event -Likely vasovagal episode versus malingering -Patient has a history of chest pain, had 9 ER visits recently since his December admission for chest pain -In December 2021 he had a coronary angiogram ?1. No significant disease noted in the Left Main, Left Anterior Descending, Right, or Circumflex coronary arteries. Patent prior left main, LAD, diagonal and RCA stents. ? 2. Normal left ventricular systolic function. Ejection fraction of 65%. most recent echocardiogram -LV systolic function is normal with EF 55 to 60% ?Mild mitral regurgitation ?Moderate aortic regurgitation ?Trace tricuspid regurgitation ?Compared to prior echocardiogram from 10/09/2021, no significant ?changes are seen -He has had an angiogram on , no obstructive CAD -Had another angiogram August 12, 2021 patent stents -No acute ST-T wave changes on EKG -No significant troponin elevation -Still complaining of chest pain, seems atypical in nature Plan -Given his CPR, his current pain potentially could be a bruised rib or even a fractured rib, will give morphine as needed, repeat chest x-ray -Is still unsure if he had a malignant arrhythmia relating to his loss of pulse, although unlikely, serial EKGs serial troponins, telemetry monitoring, continue Coreg, will repeat echo, do venous ultrasound, magnesium level -Possible vasovagal episode monitor -Continue aspirin, statin, Plavix, Coreg, nitro for chest pain -Type 2 diabetes mellitus, continue Lantus, low-dose sliding scale -Full code -Lovenox for DVT prophylaxis Conversion disorder, complaints of left-sided weakness, strokelike symptoms -Received tPA 08/22/2021 for concerns for acute CVA, likely conversion disorder -Presented 09/30/2021 for left-sided weakness, not a candidate for tPA, likely conversion disorder, -On 09/30/2021, he had again complaints of left-sided weakness, when he was admitted to [facility], along with chest pain, his symptoms spontaneously resolved, during that hospitalization, it was noted that after his complaints of left- sided weakness, inability to walk, he was found playing on his phone in the ICU, and all his strokelike symptoms resolved -During his December hospitalization 2021, in the process of going to the cardiac catheterization lab, he had sudden flaccid paralysis on the left side, was not a candidate for tPA, given that he is on heparin has a history of leaving his medical advice, his symptoms spontaneously resolved after returning back from CAT scan -I have advised nurses that if he were to have recurrent left-sided weakness, strokelike symptoms, please notify immediately, he does have a history of malingering, and needs to have appropriate and detailed evaluation by physician -head ct 01/24/2022 Brain: Normal. No hemorrhage. Unremarkable white matter. No mass effect. Cerebral ventricles: No ventriculomegaly. Paranasal sinuses: Visualized sinuses are unremarkable. No fluid levels. Mastoid air cells: Visualized mastoid air cells are well aerated. Bones/joints: Unremarkable. No acute fracture. Soft tissues: Unremarkable. -He had a CTA during his last hospitalization 1. Stable amgo-pn-szonxbpy sclerotic disease. No occlusion, thrombosis, extravasation, dissection, or aneurysm. 2. Stable 47% stenosis at the origin of the left internal carotid artery. 3. Stable 30% stenosis in the mid/distal left common carotid artery. 4. Stable 50% stenosis at the origin of the left vertebral artery. 5. Incidental/nonacute findings are listed in the report. 6. Incidental/nonacute findings are listed in the report. -He had a CTA 09/30/2021 no large vessel occlusion -He had an MRI 1.? No evidence of restricted diffusion to suggest acute ischemia. 2.? No suspicious intracranial signal abnormalities. Normal jimenez-white differentiation. 3.? Tiny chronic lacunar infarct or prominent perivascular space LEFT cerebral peduncle. 4.? No hemosiderin on susceptibly weighted images. 5.? No acute intracranial findings. -During his hospitalization at [facility], which was in June of this year, he will was also noticed to have left-sided weakness, normal CT of the head, EEG within normal limits, also had EMG studies which were within normal limits Attestations Medical Necessity Statement*: Patient requires hospitalization, outpatient with observation, less than 2 minutes, for absent pulse, chest pain complaints Coding Level of Care Code Acute Industrial Relations Specialist for Chg Fwd Diagnoses Chest pain R07.9 Absent pulse R09.89 Benign essential HTN I10 CAD (coronary artery disease) I25.10 Malingering Z76.5
--- NOTE | 2022-02-01 02:54 | USR_ITS ---
PROCEDURE INFORMATION: Exam: US Duplex Lower Extremity Veins, Bilateral Exam date and time: 02/01/2022 3:12 AM Age: 46 years old Clinical indication: Swelling (edema) of limb; Lower extremity, bilateral; Additional info: Dvt TECHNIQUE: Imaging protocol: Real-time Duplex ultrasound of the bilateral extremities with 2-D jimenez scale, color Doppler flow and spectral waveform analysis with image documentation. Complete exam focused on the bilateral lower extremity veins. COMPARISON: CT abdomen pelvis wo con [id number] 09/20/2021 7:28 PM FINDINGS: Right deep veins: The common femoral, femoral, popliteal and visualized calf/posterior tibial veins are patent without thrombus. Normal Doppler waveforms. Normal compressibility and/or augmentation response. Right superficial veins: Saphenofemoral junction is patent without thrombus. Left deep veins: The common femoral, femoral, popliteal and visualized calf/posterior tibial veins are patent without thrombus. Normal Doppler waveforms. Normal compressibility and/or augmentation response. Left superficial veins: Saphenofemoral junction is patent without thrombus. Soft tissues: Unremarkable. US/CV venous duplex [facility] [id number] IMPRESSION: No evidence of deep vein thrombosis.
[2022-02-01] MEDS: morphine 4 mg/mL SDV 1 mL 1 MG IVP ×3 (03:08→08:16)
[2022-02-01] MEDS: carvedilol 3.125 mg Tablet PO (03:09)
--- NOTE | 2022-02-01 03:21 | PC.NURSE ---
Pt reports left chest pain 10/10, reproducible. Pt crying and shaking. Dr. Rosado notified.
--- NOTE | 2022-02-01 03:24 | PC.NURSE ---
While performing admission assessment, during questions, pt's eyes closed and his head dropped to the side. Pt would not answer my questions or open his eyes. Pt's breathing became very shallow. VS remained normal. I informed the pt that he would not be able to receive pain medication for his chest pain if he had an altered LOC and was unable to wake up and answer my questions. Pt immediately opened his eyes and answered my questions appropriately. Immediately following administration of morphine, pt requested a diet sprite and a sandwich. Pt educated regarding his clear liquid diet.
[2022-02-01 03:25] LABS: Glucose Point of Care 93 mg/dL (70-110)
[2022-02-01] MEDS: enoxaparin 40 mg/0.4 mL Syringe SUBCUT (03:45)
--- NOTE | 2022-02-01 04:10 | ECG_ITS ---
[facility] Test Date: 2022-02-01 Pat Name: Alonso June Department: Room: [facility] Gender: Male Data Compiler: : 1975 Requested By: Harjinder Bowen Order Number: [id number] Janel MD: Heath Pacheco M.D. Measurements Intervals Loraine Rate: 68 P: 60 TX: 165 QRS: 62 QRSD: 90 T: 56 QT: 372 QTc: 397 Interpretive Statements SINUS RHYTHM MODERATE VOLTAGE CRITERIA FOR LVH, CONSIDER NORMAL VARIANT [MEETS CRITERIA IN ONE OF: R(aVL), S(V1), R(V5), R(V5/V6)+S(V1)] Compared to ECG 02/01/2022 00:24:05 Sinus arrhythmia no longer present Electronically Signed On 02-02-2022 17:48:45 CDT by Heath Pacheco M.D. [id number]
--- NOTE | 2022-02-01 04:26 | PC.NURSE ---
Pt resting quietly in bed with eyes closed. Respirations are even and unlabored. Skin is dry and pink. Pt was able to eat 2 containers of sugar-free Jello and tolerated well.
[2022-02-01] MEDS: clopidogrel 75 mg Tablet PO (05:12)
[2022-02-01] MEDS: aspirin 81 mg EC Tablet PO (05:12)
--- NOTE | 2022-02-01 05:36 | PC.NURSE ---
Pt complains of left arm weakness. Pt able to pull himself up in the bed to remove his shirt. Afterwards pt had left arm in a fixed rigid straight position. Pt observed in bed drinking coffee with his left arm. Pt able to use urinal without assistance.
--- NOTE | 2022-02-01 06:45 | PC.NURSE ---
Pt talking and laughing with the capital project engineer. No complaints ov pain.
[2022-02-01 06:55] LABS: Amphetamines Screen Urine Negative (Negative); Barbiturates Screen Urine Negative (Negative); Benzodiazepines Screen Urine Negative (Negative); Cocaine Screen Urine Negative (Negative); Opiate Screen Urine Positive (Negative); PCP Screen Urine Negative (Negative); THC Screen Urine Positive (Negative)
[2022-02-01 07:02] LABS: INR 1.01 (0.8-1.2)
[2022-02-01 07:05] LABS: D Dimer <= 0.27 ug/mIFEU (0-0.59)
[2022-02-01 07:07] LABS: Lactate (Lactic Acid level) 0.9 mmol/L (0.5-2.2)
[2022-02-01 07:12] LABS: Erythrocyte Sedimentation Rate 3 mm/hr (0-10)
[2022-02-01 07:28] LABS: Troponin 5 6HR 13.77 ng/L (0-15)
[2022-02-01 07:43] LABS: NT Pro B Type Natriuretic Pept 267 pg/mL (0-125); Procalcitonin 0.03 ng/mL (0-0.5); Thyroid Stimulating Hormone 1.05 uIU/mL (0.27-4.20)
[2022-02-01 07:45] LABS: Estmated Average Glucose 91; Hemoglobin A1C 4.8 % (4.0-6.0)
[2022-02-01 07:54] LABS: Chol HDL Ratio 3.41 mg/dL (1.0-5.00); Cholesterol 140 mg/dL (0-200); HDL Cholesterol 41 mg/dL (60-100); LDL Cholesterol Calculated 85 mg/dL (50-129); LDL HDL Ratio 2.07 RATIO (0.00-3.22); Magnesium 1.9 mg/dL (1.7-2.3); Triglycerides 71 mg/dL (0-150)
--- NOTE | 2022-02-01 08:00 | PC.NURSE ---
pt called staff to room to requesting pain med for chest pain .. i think they broke my chest .. iv morphine given
[2022-02-01 08:02] LABS: Alcohol Level < 10 mg/dL (0-10)
[2022-02-01 08:11] LABS: Troponin 5 6HR Delta 6.77 ng/L (0-12)
[2022-02-01] MEDS: isosorbide mononitrate ER 60 mg Tablet 120 MG PO (08:23)
[2022-02-01] MEDS: pantoprazole DR 40 mg Tablet PO (08:23)
[2022-02-01] MEDS: escitalopram 10 mg Tablet PO (08:23)
[2022-02-01] MEDS: ranolazine (12HR) 500 mg Tablet PO (08:23)
--- NOTE | 2022-02-01 09:43 | PC.NURSE ---
called back to room pt requesting if it was time for more pain med explained it was still too early
[2022-02-01] MEDS: lidocaine 5% Patch 1 PATCH TOPICAL (10:50)
--- NOTE | 2022-02-01 10:55 | PC.NURSE ---
pt had removed iv prior .. discharge orders noted lidocaine patch on chest and removed from monitors and ect... for discharge. requesting to stay for lunch prior to leaving
--- NOTE | 2022-02-01 11:56 | P.DS_ITS ---
Discharge Providers Date of Admission: 02/01/22 02:02 Date of Discharge: February 01, 2022 Attending Provider at Admission: Hector Rosado MD Attending Provider at Discharge: Alcira Vines MD Primary Care Provider: Cecily Miller MD Diagnoses at Discharge Discharge Diagnosis (1) Chest pain: Status: Acute (2) Absent pulse: Status: Acute (3) Benign essential HTN: Status: Acute (4) CAD (coronary artery disease): Status: Acute Permanent problem details: 9stents (5) Malingering: Status: Acute Reason for Visit Reason for Visit: chest pressure Hospital Course Hospital Course Patient was admitted earlier this morning after complains of atypical chest pain and possibly absent pulse for which he had CPR for about 1 minute. For details regarding his admission, please refer to H&P from this morning from Dr. Rosado. Patient was admitted with impression of atypical chest pain, possible conversion disorder. He was monitored on telemetry overnight. No arrhythmias were noted on serial telemetry monitoring. He remained hemodynamically stable during the course of admission. Troponin series was unremarkable. There were no acute ST-T wave changes noted on EKG. There were no recurrent episodes of loss of consciousness or loss of pulse. He may have had a vasovagal episode versus malingering. Please refer to details in H&P regarding patient's pertinent past history. Patient has some chest wall tenderness at the time of discharge, likely secondary to the CPR he received last night, advised application of lidocaine patch. 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 Physical Exam Narrative: General: No acute distress, AO x3 HEENT: PERRLA, pupils bilaterally equal and reactive, pallors not present Chest: Normal vesicular breath sounds, no added sounds, equal good air entry bilaterally CVS: S1-S2 regular, no murmurs, no tachycardia, no gallops, no rubs Abdomen: Soft, nontender, no organomegaly, bowel sounds present Neuro: No focal deficits, no facial deformity, AO x3, power 5/5 in all limbs Discharge Data Studies Completed and Pending Completed Studies During Hospitalization Category Date Time Status XR chest 1V portable [id number] Stat Exams 01/31/22 21:33 Completed XR chest 1V portable [id number] Stat Exams 02/01/22 02:01 [place] [id number] Routine Ultrasound 02/01/22 02:54 Completed Pending at discharge Category Date Time Status ABG ONLY [Arterial Blood Gas W/O Coox] Stat Lab 01/31/22 22:57 Received Complete Blood Count w/Auto AM LABS Lab 02/02/22 04:00 Ordered Complete Blood Count w/Auto AM LABS Lab 02/03/22 04:00 Ordered Complete Blood Count w/Auto AM LABS Lab 02/04/22 04:00 Ordered Comprehensive Metabolic Panel AM LABS Lab 02/02/22 04:00 Ordered Comprehensive Metabolic Panel AM LABS Lab 02/03/22 04:00 Ordered Comprehensive Metabolic Panel AM LABS Lab 02/04/22 04:00 Ordered Drug Screen Serum [Serum Drug Panel 7] Routine Lab 02/01/22 05:54 Received Magnesium AM LABS Lab 02/02/22 04:00 Ordered Phosphorus AM LABS Lab 02/02/22 04:00 Ordered Phosphorus AM LABS Lab 02/03/22 04:00 Ordered Phosphorus AM LABS Lab 02/04/22 04:00 Ordered Radiology Impressions Chest X-Ray 02/01/22 02:01 IMPRESSION: No chest radiographic evidence of acute cardiopulmonary disease. Venous Duplex 02/01/22 02:54 IMPRESSION: No evidence of deep vein thrombosis. Laboratory Results WBC 8.3 10^3/uL (4.0-10.0) 01/31/22 23:00 RBC 4.31 10^6/uL (4.1-5.3) 01/31/22 23:00 Hgb Cancelled 01/31/22 Unknown Hct Cancelled 01/31/22 Unknown MCV 73.8 fl (80-94) L 01/31/22 23:00 MCH 22.5 pg (28.0-34.0) L 01/31/22 23:00 MCHC 30.5 g/dL (30.0-36.0) 01/31/22 23:00 RDW 17.3 % (12.1-15.1) H 01/31/22 23:00 Plt Count 281 10^3/cmm (130-400) 01/31/22 23:00 MPV 12.3 fL (7.4-10.4) H 01/31/22 23:00 Neut % (Auto) 51.4 % 01/31/22 23:00 Lymph % (Auto) 32.9 % 01/31/22 23:00 Dickens % (Auto) 11.9 % 01/31/22 23:00 Eos % (Auto) 2.9 % 01/31/22 23:00 Baso % (Auto) 0.7 % 01/31/22 23:00 Neut # (Auto) 4.25 10^3/uL (1.8-7.7) 01/31/22 23:00 Lymph # (Auto) 2.7 10^3/uL (0.8-4.8) 01/31/22 23:00 Dickens # (Auto) 1.0 10^3/uL (0.2-0.9) H 01/31/22 23:00 Eos # (Auto) 0.2 10^3/uL (0.0-0.8) 01/31/22 23:00 Baso # (Auto) 0.1 10^3/uL (0.0-0.1) 01/31/22 23:00 Nucleated RBC % (auto) 0 % 01/31/22 23:00 Nucleated RBCs # 0.0 /100WBC 01/31/22 23:00 ESR 3 mm/hr (0-10) 02/01/22 05:54 PT 13.60 SECONDS (12.1-14.9) 02/01/22 05:54 INR 1.01 (0.8-1.2) 02/01/22 05:54 D-Dimer <= 0.27 ug/mIFEU (0-0.59) 02/01/22 05:54 Sodium 139 mmol/L (136-145) 01/31/22 23:00 Potassium 4.0 mmol/L (3.5-5.1) 01/31/22 23:00 Chloride 106 mmol/L (98-107) 01/31/22 23:00 Carbon Dioxide 22 mmol/L (22-29) 01/31/22 23:00 Anion Gap 15.0 (5-19) 01/31/22 23:00 BUN 17 mg/dL (6-20) 01/31/22 23:00 Creatinine 0.9 mg/dL (0.7-1.2) 01/31/22 23:00 GFR Calculation 91.7 mL/min (90-130) 01/31/22 23:00 Glucose 93 mg/dL (65-115) 01/31/22 23:00 POC Glucose 93 mg/dL (70-110) 01/31/22 22:46 Estimat Average Glucose 91 02/01/22 05:54 Hemoglobin A1c 4.8 % (4.0-6.0) 02/01/22 05:54 Calculated Osmolality 289 mOsm/kg (285-295) 01/31/22 23:00 Lactic Acid 1.5 mmol/L (0.5-2.2) 01/31/22 23:00 Lactate 0.9 mmol/L (0.5-2.2) 02/01/22 05:54 Calcium 8.8 mg/dL (8.5-10.5) 01/31/22 23:00 Magnesium 1.9 mg/dL (1.7-2.3) 02/01/22 05:54 Total Bilirubin 0.2 mg/dL (0.15-1.2) 01/31/22 23:00 AST 9 U/L (0-40) 01/31/22 23:00 ALT 6 U/L (0-41) 01/31/22 23:00 Alkaline Phosphatase 73 IU/L (40-130) 01/31/22 23:00 Troponin T Baseline 7 ng/L (0-15) 01/31/22 23:00 Troponin T 120 Minute 11.30 ng/L (0-15) 02/01/22 01:01 Delta Troponin T 4.30 ABS# (0-10) 02/01/22 01:01 Troponin T Hi Sens 6Hr 13.77 ng/L (0-15) 02/01/22 05:54 Troponin T Hi Sens 6Hr Delta 6.77 ng/L (0-12) 02/01/22 05:54 C-Reactive Protein 3.0 mg/L (0.0-4.9) 02/01/22 05:54 NT-Pro-B Natriuret Pep 267 pg/mL (0-125) H 02/01/22 05:54 Total Protein 6.9 g/dL (6.6-8.7) 01/31/22 23:00 Albumin 4.1 g/dL (3.5-5.2) 01/31/22 23:00 Globulin 2.8 g/dL (1.3-4.6) 01/31/22 23:00 Triglycerides 71 mg/dL (0-150) 02/01/22 05:54 Cholesterol 140 mg/dL (0-200) 02/01/22 05:54 LDL Cholesterol, Calc 85 mg/dL (50-129) 02/01/22 05:54 HDL Cholesterol 41 mg/dL (60-100) L 02/01/22 05:54 LDL/HDL Ratio 2.07 RATIO (0.00-3.22) 02/01/22 05:54 Cholesterol/HDL Ratio 3.41 mg/dL (1.0-5.00) 02/01/22 05:54 Lipase 95 U/L (13-60) H 01/31/22 23:00 Procalcitonin 0.03 ng/mL (0-0.5) 02/01/22 05:54 TSH 1.05 uIU/mL (0.27-4.20) 02/01/22 05:54 Urine Opiates Screen Positive ng/mL (Negative) H 02/01/22 05:33 Ur Barbiturates Screen Negative ng/mL (Negative) 02/01/22 05:33 Ur Phencyclidine Scrn Negative ng/mL (Negative) 02/01/22 05:33 Ur Amphetamines Screen Negative ng/mL (Negative) 02/01/22 05:33 U Benzodiazepines Scrn Negative ng/mL (Negative) 02/01/22 05:33 Urine Cocaine Screen Negative ng/mL (Negative) 02/01/22 05:33 U Marijuana (THC) Screen Positive ng/mL (Negative) H 02/01/22 05:33 Ethyl Alcohol < 10 mg/dL (0-10) 02/01/22 05:54 Vitals Last Vital Signs Temp 98 F 02/01/22 11:04 Pulse 89 02/01/22 11:04 Resp 10 L 02/01/22 11:04 BP 146/105 02/01/22 11:04 Pulse Ox 98 02/01/22 11:04 O2 Del Method 02/01/22 07:44 FiO2 21 02/01/22 10:00 Discharge Plan Discharge Patient Disposition: Home Condition: Stable Prescriptions: Continued clopidogrel 75 mg tablet 75 mg PO QAM Qty: 30 1RF huzgpiffal-tohotspdxfvus-wqcs 50-325-40 mg tablet 2 tab PO BID PRN (Reason: Migraine Headache) Hold Instructions: interaction with aspirin albuterol sulfate [ProAir HFA] 90 mcg/actuation HFA aerosol inhaler 2 puff INHALATION Q4H PRN (Reason: Shortness Of Breath) 1 Days Qty: 30 0RF hydroxyzine HCl 25 mg tablet 25 mg PO BID PRN (Reason: nausea and vomiting) insulin glargine [Lantus Solostar U-100 Insulin] 100 unit/mL (3 mL) insulin pen 5 unit SUBCUT BEDTIME Qty: 15 0RF insulin aspart U-100 [Novolog Flexpen U-100 Insulin] 100 unit/mL (3 mL) insulin pen See Rx Instructions .ROUTE .COMPLEX Qty: 15 0RF Rx Instructions: Inject, 3 times daily, after meals, based on sliding scale provided pantoprazole [Protonix] 40 mg tablet,delayed release (DR/EC) 40 mg PO BID 30 Days Qty: 30 1RF Seroquel 50 mg Tablet 50 mg PO BEDTIME carvedilol 3.125 mg tablet 3.125 mg PO Q12H isosorbide mononitrate 60 mg tablet extended release 24 hr 120 mg PO BID aripiprazole 10 mg tablet 5 mg PO BEDTIME ondansetron HCl 4 mg tablet 4 mg PO Q6H PRN (Reason: nausea and vomiting) Qty: 20 0RF escitalopram oxalate 10 mg Tablet 10 mg PO DAILY 30 Days Qty: 30 1RF atorvastatin 40 mg tablet 40 mg PO BEDTIME 30 Days Qty: 30 1RF ondansetron HCl 4 mg tablet 4 mg PO Q8H PRN (Reason: Nausea And Vomiting) 30 Days Qty: 60 1RF aspirin 81 mg Tablet,Delayed Release (Dr/Ec) 81 mg PO QAM 30 Days Qty: 30 1RF nitroglycerin [Nitrostat] 0.4 mg Tablet, Sublingual 0.4 mg SUBLINGUAL Q5M PRN (Reason: Chest Pain) 30 Days Qty: 60 1RF Rx Instructions: do not exceed 3 doses per episode ranolazine 500 mg tablet extended release 12 hr 500 mg PO BID 30 Days Qty: 60 1RF methocarbamol 750 mg tablet 750 mg PO Q6H PRN (Reason: spasms) Qty: 20 0RF Discharge Orders: Discharge Order (Routine); Ordered 02/01/22 Ordered By: Alcira Vines Referrals: Cecily Miller MD [Primary Care Provider] - [facility], [Staff Physician] - 2 weeks Isabelle Pedraza FNP [Nurse Practitioner] - 1 month Discharge Diet: Cardiac Discharge Activity: Increase activity as tolerated Patient Instructions: Heart Healthy Diet, Chest Pain (ED), Opioid Safety Activity Restrictions/Additional Instructions: Thank you for visiting the emergency department. You were seen and evaluated for chest pressure. The exact cause of your symptoms is unclear though given extensive previous cardiac evaluation and ED evaluation at this time I do not feel that inpatient management is needed. 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 Please follow-up with your primary care provider. Return to the emergency department as needed. Discharge Attestations Time Spent in Discharge Care*: other Quality Metrics Clinical Quality Measures [ No reported AMI, CVA or VTE this stay] Coding Level of Care Code Acute Chg FW DC note Diagnoses Chest pain R07.9 Absent pulse R09.89 Benign essential HTN I10 CAD (coronary artery disease) I25.10 Malingering Z76.5
--- NOTE | 2022-02-01 12:28 | PC.NURSE ---
pt for discharge at this time requesting more pain medication iv,, explained that he was discharged and i could not give him more narcotics at this time. after discusion about status and ect decided he was ready to discharge
[2022-02-06 06:50] LABS: Amphetamine negative; Barbiturates negative; Benzodiazepines negative; Cocaine Metabolites negative; Marijuana(Tetrahydrocannabino) negative; Opiates negative; PCP (Phencyclidine) negative
[2023-03-24 08:38] LABS: ABG PCO2 37.7 mmHg (35-45); ABG PH Result 7.38 (7.35-7.45); Base Excess ABG -2.3 mmol/L (-2.0-2.0); Blood Gas Allen Test POS; Blood Gas Operator Identificat ED; Blood Gas Sample Type Arterial; HCO3 ABG 22.5 mmol/L (22-26); Oxygen Device ROOM AIR
[2023-03-24 08:39] LABS: Arterial Blood Gas Hematocrit 30.4 % (42-52); Blood Gas Sample Site Radial, left
== END 2022-02-01 12:44 | disposition home or self-care (01) ==
LOC: ER 02-01 01:32 → ICU 02-01 06:59
PROVIDERS: Admitting Provider Family Medicine; Emergency Provider Emergency Medicine; PCP Internal Medicine; Visit Provider Student in an Organized Health Care Education/Training Program
DX: R07.9 Chest pain, unspecified (principal); R09.89 Other specified symptoms and signs involving the circulatory and respiratory systems; I10 Essential (primary) hypertension; I25.10 Atherosclerotic heart disease of native coronary artery without angina pectoris; Z76.5 Malingerer [conscious simulation]; E78.5 Hyperlipidemia, unspecified; Z87.891 Personal history of nicotine dependence; E11.9 Type 2 diabetes mellitus without complications; Z95.5 Presence of coronary angioplasty implant and graft; Z79.4 Long term (current) use of insulin
CPT/HCPCS: 36415; 36416; 36600; 71045; 80053; 80061; 80306; 80307; 82803; 82962; 83036; 83605; 83690; 83735; 83880; 84145; 84443; 84484; 85025; 85378; 85610; 85651; 86140; 93005; 93970; 94664; 96372; 96374; 96375; 99285; G0378; J1650; J2270; J2405

== ENCOUNTER 2022-02-01 21:33 | Emergency (ER) | payer OTHER, MEDICAID, SELFPAY ==
--- NOTE | 2022-02-01 21:34 | ECG_ITS ---
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 Measurements Intervals [place] Rate: 92 P: 83 DE: 144 QRS: 85 QRSD: 81 T: 84 QT: 339 QTc: 420 Interpretive Statements SINUS RHYTHM Compared to ECG 02/01/2022 04:10:36 No significant changes Electronically Signed On 02-02-2022 13:13:33 CDT by Heath Pacheco M.D. [id number]
--- NOTE | 2022-02-01 21:35 | ED_ITS ---
HPI - Chest Pain General: Stated Complaint: CP Time Seen by Provider: 02/01/22 21:34 Source: patient and EMS Mode of arrival: EMS Limitations: no limitations History of Present Illness: 46-year-old male has been seen here multiple times over the last 2 months. Patient's had 4 cath this year they are all negative he has had 2 caths here that were negative this year. Patient was admitted here yesterday and left today and came in by ambulance earlier today left and called ambulance again at this time. He states he been having chest pain that sharp in nature. He denies any shortness of breath denies any worsening improving factors. EKG with EMS was normal Associated symptoms: Deny abdominal pain, dyspnea, fever(s), nausea or vomiting Review of Systems Const: Denies: fever(s), chills, body aches or change in appetite Eyes: Denies: blurry vision or eye discomfort ENMT: Denies: throat pain or dental pain Card: Reports: chest pain Resp: Denies: dyspnea GI: Denies: abdominal pain, nausea, vomiting or diarrhea : Denies: dysuria Musc: Denies: neck pain or back pain Skin/Breast: Denies: rash Neuro: Denies: headache(s) Psych: Denies: depression Melquiades/Lymph: Denies: easy bruising All/Imm: Denies: urticaria PFSH ED PFSH: Medical History Angina pectoris, unstable Atherosclerotic heart disease of [place] coronary artery with unstable angina pectoris Benign essential HTN CAD (coronary artery disease) 9stents Chest pain CVA (cerebrovascular accident) Diabetes Dyslipidemia (high LDL; low HDL) Former smoker HTN (hypertension) Surgical History History of appendectomy Family History Other No pertinent family history Social History Smoking and tobacco status: former smoker Alcohol intake: never Housing: House Physical Exam Const: COMMON NORMALS: no acute distress, patient oriented x3 and healthy appearing HENMT: COMMON NORMALS: normocephalic and atraumatic HEAD & SCALP: normocephalic and atraumatic Eye: COMMON NORMALS: Equal, round and reactive pupils present and EOMs intact bilaterally PUPIL: Yes Equal, round and reactive pupils present Neck/C-Spine: COMMON NORMALS: full ROM and supple Chest: COMMONS NORMALS: normal inspection of the chest and normal palpation of entire chest wall Resp: COMMON NORMALS: normal respiratory effort, No retractions, No use of accessory muscles and clear to auscultation bilaterally AUSCULTATION: clear to auscultation bilaterally Cardio: COMMON NORMALS: regular rate, regular rhythm and No murmurs present (Cardio) RATE: regular rate RHYTHM: regular rhythm GI: COMMON NORMALS: Normal to inspection, nondistended, normoactive bowel sounds present, Soft to palpation, non-tender and no masses PALPATION: Yes Soft to palpation Extremity: COMMON NORMALS: normal to inspection and full ROM Neuro: COMMON NORMALS: patient oriented x3, moves all extremities and no focal motor deficits Psych: COMMON NORMALS: mental status grossly normal, Normal thought process present and cooperative THOUGHT PROCESS: Normal thought process present Skin: COMMON NORMALS: no rashes or lesions noted and no wounds GENERAL SKIN EXAM: no rashes or lesions noted MDM - Chest Pain Medical Decision Making Patient presents for chest pain atypical in nature he has been seen here [facility] times he was just admitted yesterday. He has had multiple normal caths this year he had troponin series yesterday was normal EKG is normal he is stable for discharge she is to follow-up PCP and return if worsening. EKG Data EKG 1: I personally reviewed and interpreted this EKG as follows: EKG interpretation date: 02/01/22 EKG interpretation time: 21:37 Interpretation: nsr hr [address] or t wave abnormalities qrs 81 qtc 388 Discharge Plan Discharge Patient Disposition: Home Clinical Impression: Chest pain Condition: Stable Prescriptions: No Action clopidogrel 75 mg tablet 75 mg PO QAM Qty: 30 1RF xtxvsxgvbk-gmtglhiasgjiv-ruxk 50-325-40 mg tablet 2 tab PO BID PRN (Reason: Migraine Headache) Hold Instructions: interaction with aspirin albuterol sulfate [ProAir HFA] 90 mcg/actuation HFA aerosol inhaler 2 puff INHALATION Q4H PRN (Reason: Shortness Of Breath) 1 Days Qty: 30 0RF hydroxyzine HCl 25 mg tablet 25 mg PO BID PRN (Reason: nausea and vomiting) insulin glargine [Lantus Solostar U-100 Insulin] 100 unit/mL (3 mL) insulin pen 5 unit SUBCUT BEDTIME Qty: 15 0RF insulin aspart U-100 [Novolog Flexpen U-100 Insulin] 100 unit/mL (3 mL) insulin pen See Rx Instructions .ROUTE .COMPLEX Qty: 15 0RF Rx Instructions: Inject, 3 times daily, after meals, based on sliding scale provided pantoprazole [Protonix] 40 mg tablet,delayed release (DR/EC) 40 mg PO BID 30 Days Qty: 30 1RF Seroquel 50 mg Tablet 50 mg PO BEDTIME carvedilol 3.125 mg tablet 3.125 mg PO Q12H isosorbide mononitrate 60 mg tablet extended release 24 hr 120 mg PO BID aripiprazole 10 mg tablet 5 mg PO BEDTIME ondansetron HCl 4 mg tablet 4 mg PO Q6H PRN (Reason: nausea and vomiting) Qty: 20 0RF escitalopram oxalate 10 mg Tablet 10 mg PO DAILY 30 Days Qty: 30 1RF atorvastatin 40 mg tablet 40 mg PO BEDTIME 30 Days Qty: 30 1RF ondansetron HCl 4 mg tablet 4 mg PO Q8H PRN (Reason: Nausea And Vomiting) 30 Days Qty: 60 1RF aspirin 81 mg Tablet,Delayed Release (Dr/Ec) 81 mg PO QAM 30 Days Qty: 30 1RF nitroglycerin [Nitrostat] 0.4 mg Tablet, Sublingual 0.4 mg SUBLINGUAL Q5M PRN (Reason: Chest Pain) 30 Days Qty: 60 1RF Rx Instructions: do not exceed 3 doses per episode ranolazine 500 mg tablet extended release 12 hr 500 mg PO BID 30 Days Qty: 60 1RF methocarbamol 750 mg tablet 750 mg PO Q6H PRN (Reason: spasms) Qty: 20 0RF Discharge Orders: Discharge ED (Routine); Ordered 02/01/22 Ordered By: Jb Jaime Referrals: Cecily Miller MD [Primary Care Provider] - Discharge Diet: Advance as tolerated Discharge Activity: Resume usual activity Patient Instructions: Chest Pain (ED) Coding Level of Care Code ED Senior Technical Manager for Chg Fwd Exam Comprehensive
[2022-02-01 21:40] VITALS: BP 118/67; PULSE 86; RESP 18; TEMP 37.1; O2SAT 98; BMI 24.2
[2022-02-01 21:46] VITALS: BP 118/67; PULSE 86; RESP 18; TEMP 37.1; O2SAT 98
== END 2022-02-01 21:47 | disposition home or self-care (01) ==
LOC: ER 21:48
PROVIDERS: Emergency Provider Emergency Medicine; PCP Internal Medicine
DX: R07.9 Chest pain, unspecified (principal); Z79.02 Long term (current) use of antithrombotics/antiplatelets; Z79.4 Long term (current) use of insulin; Z79.82 Long term (current) use of aspirin; I25.10 Atherosclerotic heart disease of native coronary artery without angina pectoris; Z86.73 Personal history of transient ischemic attack (TIA), and cerebral infarction without residual deficits; E11.9 Type 2 diabetes mellitus without complications; E78.5 Hyperlipidemia, unspecified; I10 Essential (primary) hypertension; Z87.891 Personal history of nicotine dependence
CPT/HCPCS: 93005; 99283

== ENCOUNTER 2022-02-02 14:47 | Emergency (ER) | payer OTHER, MEDICAID, SELFPAY ==
--- NOTE | 2022-02-02 15:16 | ECG_ITS ---
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 Measurements Intervals [place] Rate: 76 P: 63 MA: 153 QRS: 78 QRSD: 85 T: 72 QT: 342 QTc: 386 Interpretive Statements SINUS RHYTHM VOLTAGE CRITERIA FOR LVH [MEETS CRITERIA IN ONE OF: R(aVL), S(V1), R(V5), R(V5/V6)+S(V1)] Compared to ECG 02/01/2022 21:37:40 Left ventricular hypertrophy now present Electronically Signed On 02-02-2022 17:34:59 CDT by Heath Pacheco M.D. [id number]
[2022-02-02 15:25] VITALS: BP 139/77; PULSE 76; RESP 17; TEMP 36.8; O2SAT 98; BMI 22.4
--- NOTE | 2022-02-02 17:02 | ED_ITS ---
HPI - Chest Pain General: Chief Complaint: Chest Pain Stated Complaint: CHEST PAIN Time Seen by Provider: 02/02/22 16:19 Source: patient Mode of arrival: EMS History of Present Illness: 46-year-old male presents emergency room comp laining of chest pain. He states he passed out and hit his head on the sidewalk. Mr. June is an exceptionally challenging patient and that he returns often multiple times a day with similar complaints he is had extensive cardiac work-up and neurologic work-up all of which have been negative. At this time he is alert oriented answers questions well he has good recollection of history he has no signs of trauma no abrasion on the head or face. MD complaint: chest pain Onset (ago): minute(s) Timing of current episode: episodic Prior episodes: Yes Pain location: left chest Pain radiation: none Severity: mild Quality: sharp Relieving factors: nothing Exacerbating factors: nothing Associated symptoms: Deny abdominal pain, diaphoresis, dyspnea, fever(s), leg edema, nausea, palpitations, sense of impending doom, syncope or vomiting Treatment prior to arrival: none Review of Systems Const: Denies: fever(s) or diaphoresis ENMT: Denies: throat pain, ear or mastoid pain, nasal discharge or nasal congestion Card: Denies: palpitations or syncope Resp: Denies: dyspnea GI: Denies: abdominal pain, nausea or vomiting : Denies: flank pain, dysuria, urinary frequency or urinary urgency Skin/Breast: Denies: rash or pruritus PFSH ED PFSH: Medical History Angina pectoris, unstable Atherosclerotic heart disease of [place] coronary artery with unstable angina pectoris Benign essential HTN CAD (coronary artery disease) 9stents Chest pain CVA (cerebrovascular accident) Diabetes Dyslipidemia (high LDL; low HDL) Former smoker HTN (hypertension) Surgical History History of appendectomy Family History Other No pertinent family history Social History Smoking and tobacco status: former smoker Alcohol intake: never Housing: House Physical Exam Const: COMMON NORMALS: no acute distress GENERAL APPEARANCE: cooperative and comfortable ORIENTATION/CONSCIOUSNESS: Yes awake, Yes oriented to person, Yes oriented to place and Yes oriented to time HENMT: COMMON NORMALS: normocephalic, atraumatic and hearing grossly normal bilaterally HEAD & SCALP: normocephalic and atraumatic Eye: COMMON NORMALS: Equal, round and reactive pupils present, EOMs intact bilaterally, conjunctivae normal and no scleral icterus CONJUNCTIVA: Yes conjunctivae normal PUPIL: Yes Equal, round and reactive pupils present Neck/C-Spine: COMMON NORMALS: full ROM, no lymphadenopathy, supple and no JVD Resp: COMMON NORMALS: normal respiratory effort, No retractions, No use of accessory muscles and clear to auscultation bilaterally AUSCULTATION: clear to auscultation bilaterally Cardio: COMMON NORMALS: no JVD, regular rate, regular rhythm and No murmurs present (Cardio) RATE: regular rate RHYTHM: regular rhythm Extremity: COMMON NORMALS: normal to inspection, capillary refill normal, no clubbing, cyanosis or edema, no calf tenderness and no pedal edema Neuro: SENSORIUM/ORIENTATION: Yes oriented to person, Yes oriented to place and Yes oriented to time Skin: COMMON NORMALS: no rashes or lesions noted GENERAL SKIN EXAM: no rashes or lesions noted Course Vital Signs: Vital signs: Vital Signs Temperature 98.2 F 02/02/22 15:25 Pulse Rate 76 02/02/22 15:25 Respiratory Rate 17 02/02/22 15:25 Blood Pressure 139/77 02/02/22 15:25 Pulse Oximetry 98 02/02/22 15:25 Oxygen Delivery Me thod 02/02/22 15:25 MDM - Chest Pain Medical Decision Making No significant findings on exam. There is no sign of trauma to his head his neurologic exam was completely intact. His EKG is unremarkable discharge patient home follow-up as needed recommend he follow-up with his primary care doctor. Medical Records I reviewed the patient's medical records. Lab Data I reviewed the patient's lab results. Discharge Plan Discharge Patient Disposition: Home Clinical Impression: Atypical chest pain, Fall Condition: Stable Prescriptions: No Action clopidogrel 75 mg tablet 75 mg PO QAM Qty: 30 1RF kvekndnsvx-kyaqcndjhiigp-fzof 50-325-40 mg tablet 2 tab PO BID PRN (Reason: Migraine Headache) Hold Instructions: interaction with aspirin albuterol sulfate [ProAir HFA] 90 mcg/actuation HFA aerosol inhaler 2 puff INHALATION Q4H PRN (Reason: Shortness Of Breath) 1 Days Qty: 30 0RF hydroxyzine HCl 25 mg tablet 25 mg PO BID PRN (Reason: nausea and vomiting) insulin glargine [Lantus Solostar U-100 Insulin] 100 unit/mL (3 mL) insulin pen 5 unit SUBCUT BEDTIME Qty: 15 0RF insulin aspart U-100 [Novolog Flexpen U-100 Insulin] 100 unit/mL (3 mL) insulin pen See Rx Instructions .ROUTE .COMPLEX Qty: 15 0RF Rx Instructions: Inject, 3 times daily, after meals, based on sliding scale provided pantoprazole [Protonix] 40 mg tablet,delayed release (DR/EC) 40 mg PO BID 30 Days Qty: 30 1RF Seroquel 50 mg Tablet 50 mg PO BEDTIME carvedilol 3.125 mg tablet 3.125 mg PO Q12H isosorbide mononitrate 60 mg tablet extended release 24 hr 120 mg PO BID aripiprazole 10 mg tablet 5 mg PO BEDTIME ondansetron HCl 4 mg tablet 4 mg PO Q6H PRN (Reason: nausea and vomiting) Qty: 20 0RF escitalopram oxalate 10 mg Tablet 10 mg PO DAILY 30 Days Qty: 30 1RF atorvastatin 40 mg tablet 40 mg PO BEDTIME 30 Days Qty: 30 1RF ondansetron HCl 4 mg tablet 4 mg PO Q8H PRN (Reason: Nausea And Vomiting) 30 Days Qty: 60 1RF aspirin 81 mg Tablet,Delayed Release (Dr/Ec) 81 mg PO QAM 30 Days Qty: 30 1RF nitroglycerin [Nitrostat] 0.4 mg Tablet, Sublingual 0.4 mg SUBLINGUAL Q5M PRN (Reason: Chest Pain) 30 Days Qty: 60 1RF Rx Instructions: do not exceed 3 doses per episode ranolazine 500 mg tablet extended release 12 hr 500 mg PO BID 30 Days Qty: 60 1RF methocarbamol 750 mg tablet 750 mg PO Q6H PRN (Reason: spasms) Qty: 20 0RF Discharge Orders: Discharge ED (Routine); Ordered 02/02/22 Ordered By: Kam Martinez Referrals: Cecily Miller MD [Primary Care Provider] - Discharge Diet: Usual diet Discharge Activity: Resume usual activity Patient Instructions: Opioid Safety Activity Restrictions/Additional Instructions: Follow-up with your primary care doctor. Coding Level of Care Code ED Math Tutor for Chg Fwd Exam Comprehensive
== END 2022-02-02 17:38 | disposition home or self-care (01) ==
PROVIDERS: Emergency Provider Family Medicine; PCP Internal Medicine
DX: R07.89 Other chest pain (principal); Z79.02 Long term (current) use of antithrombotics/antiplatelets; Z79.82 Long term (current) use of aspirin; Z79.4 Long term (current) use of insulin; I25.10 Atherosclerotic heart disease of native coronary artery without angina pectoris; Z86.73 Personal history of transient ischemic attack (TIA), and cerebral infarction without residual deficits; E11.9 Type 2 diabetes mellitus without complications; E78.5 Hyperlipidemia, unspecified; I10 Essential (primary) hypertension; Z87.891 Personal history of nicotine dependence
CPT/HCPCS: 93005; 99283

== ENCOUNTER 2022-02-03 15:37 | Emergency (ER) | payer OTHER, MEDICAID, SELFPAY ==
[2022-02-03 16:21] VITALS: BP 108/58; PULSE 74; RESP 16; TEMP 37.1; O2SAT 100; BMI 21.1
--- NOTE | 2022-02-03 18:40 | ED_ITS ---
HPI - Neuro Symptoms/Deficit General: Chief Complaint: Neuro Symptoms/Deficit Stated Complaint: L SIDED WEAKNESS Time Seen by Provider: 02/03/22 18:38 Source: patient Mode of arrival: ambulatory Limitations: no limitations History of Present Illness: 46-year-old male who is here today he states he been having some left-sided weakness. Patient been seen here multiple times over the last 2 months patient's had a history of malingering he has received tPA before for strokes that were not real. Patient is able to walk in triage currently he is able to hold his arms up denies headache denies any chest pain. Associated symptoms: Deny chest pain, nausea or vomiting Review of Systems Const: Denies: fever(s), chills, body aches or change in appetite Eyes: Denies: blurry vision or eye discomfort ENMT: Denies: throat pain or dental pain Card: Denies: chest pain Resp: Denies: dyspnea GI: Denies: abdominal pain, nausea, vomiting or diarrhea : Denies: dysuria Musc: Denies: neck pain or back pain Skin/Breast: Denies: rash Neuro: Reports: weakness in extremities Psych: Denies: depression Melquiades/Lymph: Denies: easy bruising All/Imm: Denies: urticaria PFSH ED PFSH: Medical History Angina pectoris, unstable Atherosclerotic heart disease of [place] coronary artery with unstable angina pectoris Benign essential HTN CAD (coronary artery disease) 9stents Chest pain CVA (cerebrovascular accident) Diabetes Dyslipidemia (high LDL; low HDL) Former smoker HTN (hypertension) Surgical History History of appendectomy Family History Other No pertinent family history Social History Smoking and tobacco status: former smoker Alcohol intake: never Housing: House NIH stroke score NIHSS: Level Of Consciousness - 1a: 0 Level Of Consciousness Questions - 1b: Both Correct Level Of Consciousness Commands - 1c: Both Correct Best Gaze - 2: Normal Visual Ontiveros - 3: No Visual Loss Facial Palsy - 4: Normal Motor Arm Right - 5: No Drift Motor Arm Left - 5: No Drift Motor Leg Right - 6: No Drift Motor Leg Left - 6: No Drift Limb Ataxia - 7: Absent Sensory - 8: Normal Best Language - 9: No Aphasia Dysarthia - 10: Normal Extinction And Inattention - 11: 0 Score: Total Score: 0 Physical Exam Const: COMMON NORMALS: no acute distress, patient oriented x3 and healthy appearing HENMT: COMMON NORMALS: normocephalic and atraumatic HEAD & SCALP: normocephalic and atraumatic Eye: COMMON NORMALS: Equal, round and reactive pupils present and EOMs intact bilaterally PUPIL: Yes Equal, round and reactive pupils present Neck/C-Spine: COMMON NORMALS: full ROM and supple Chest: COMMONS NORMALS: normal inspection of the chest and normal palpation of entire chest wall Resp: COMMON NORMALS: normal respiratory effort, No retractions, No use of accessory muscles and clear to auscultation bilaterally AUSCULTATION: clear to auscultation bilaterally Cardio: COMMON NORMALS: regular rate, regular rhythm and No murmurs present (Cardio) RATE: regular rate RHYTHM: regular rhythm GI: COMMON NORMALS: Normal to inspection, nondistended, normoactive bowel soun ds present, Soft to palpation, non-tender and no masses PALPATION: Yes Soft to palpation Extremity: COMMON NORMALS: normal to inspection and full ROM Neuro: COMMON NORMALS: patient oriented x3, moves all extremities and no focal motor deficits Psych: COMMON NORMALS: mental status grossly normal, Normal thought process present and cooperative THOUGHT PROCESS: Normal thought process present Skin: COMMON NORMALS: no rashes or lesions noted and no wounds GENERAL SKIN EXAM: no rashes or lesions noted Course Vital Signs: Vital signs: Vital Signs Temperature 98.7 F 02/03/22 16:21 Pulse Rate 74 02/03/22 16:21 Respiratory Rate 16 02/03/22 16:21 Blood Pressure 108/58 02/03/22 16:21 Pulse Oximetry 100 02/03/22 16:21 [facility] - Neuro Symptoms/Deficit Medical Decision Making Patient presents here with he states left-sided weakness 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 He is well-appearing here he stable for discharge he is to follow-up with PCP and return if worsening. Discharge Plan Discharge Patient Disposition: Home Clinical Impression: Malingering, Weakness Condition: Stable Prescriptions: No Action clopidogrel 75 mg tablet 75 mg PO QAM Qty: 30 1RF egdschsksl-tqayephkrtmkz-hpvk 50-325-40 mg tablet 2 tab PO BID PRN (Reason: Migraine Headache) Hold Instructions: interaction with aspirin albuterol sulfate [ProAir HFA] 90 mcg/actuation HFA aerosol inhaler 2 puff INHALATION Q4H PRN (Reason: Shortness Of Breath) 1 Days Qty: 30 0RF hydroxyzine HCl 25 mg tablet 25 mg PO BID PRN (Reason: nausea and vomiting) insulin glargine [Lantus Solostar U-100 Insulin] 100 unit/mL (3 mL) insulin pen 5 unit SUBCUT BEDTIME Qty: 15 0RF insulin aspart U-100 [Novolog Flexpen U-100 Insulin] 100 unit/mL (3 mL) insulin pen See Rx Instructions .ROUTE .COMPLEX Qty: 15 0RF Rx Instructions: Inject, 3 times daily, after meals, based on sliding scale provided pantoprazole [Protonix] 40 mg tablet,delayed release (DR/EC) 40 mg PO BID 30 Days Qty: 30 1RF Seroquel 50 mg Tablet 50 mg PO BEDTIME carvedilol 3.125 mg tablet 3.125 mg PO Q12H isosorbide mononitrate 60 mg tablet extended release 24 hr 120 mg PO BID aripiprazole 10 mg tablet 5 mg PO BEDTIME ondansetron HCl 4 mg tablet 4 mg PO Q6H PRN (Reason: nausea and vomiting) Qty: 20 0RF escitalopram oxalate 10 mg Tablet 10 mg PO DAILY 30 Days Qty: 30 1RF atorvastatin 40 mg tablet 40 mg PO BEDTIME 30 Days Qty: 30 1RF ondansetron HCl 4 mg tablet 4 mg PO Q8H PRN (Reason: Nausea And Vomiting) 30 Days Qty: 60 1RF aspirin 81 mg Tablet,Delayed Release (Dr/Ec) 81 mg PO QAM 30 Days Qty: 30 1RF nitroglycerin [Nitrostat] 0.4 mg Tablet, Sublingual 0.4 mg SUBLINGUAL Q5M PRN (Reason: Chest Pain) 30 Days Qty: 60 1RF Rx Instructions: do not exceed 3 doses per episode ranolazine 500 mg tablet extended release 12 hr 500 mg PO BID 30 Days Qty: 60 1RF methocarbamol 750 mg tablet 750 mg PO Q6H PRN (Reason: spasms) Qty: 20 0RF Discharge Orders: Discharge ED (Routine); Ordered 02/03/22 Ordered By: Jb Jaime Referrals: Cecily Miller MD [Primary Care Provider] - 1-3 days Discharge Diet: Advance as tolerated Discharge Activity: Resume usual activity Patient Instructions: Weakness (ED) Coding Level of Care Code 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
--- NOTE | 2022-02-03 18:46 | PC.NURSE ---
IV FROM EMS IN [facility] REMOVED. CATH INTACT. DRESSING APPLIED WITH INSTRUCTIONS TO REMOVE.
[2022-02-03 18:47] VITALS: BP 137/77; PULSE 71; RESP 16; O2SAT 100
== END 2022-02-03 18:48 | disposition home or self-care (01) ==
PROVIDERS: Emergency Provider Emergency Medicine; PCP Internal Medicine
DX: R53.1 Weakness (principal); Z76.5 Malingerer [conscious simulation]; Z79.4 Long term (current) use of insulin; Z79.82 Long term (current) use of aspirin; I25.10 Atherosclerotic heart disease of native coronary artery without angina pectoris; Z86.73 Personal history of transient ischemic attack (TIA), and cerebral infarction without residual deficits; E11.9 Type 2 diabetes mellitus without complications; E78.5 Hyperlipidemia, unspecified; I10 Essential (primary) hypertension; Z87.891 Personal history of nicotine dependence
CPT/HCPCS: 99283

== ENCOUNTER 2022-02-06 10:26 | Emergency (ER) | payer OTHER, MEDICAID, SELFPAY ==
[2022-02-06 11:32] VITALS: BP 109/71; PULSE 76; RESP 18; TEMP 36.7; O2SAT 98; BMI 21.1
[2022-02-06 12:40] VITALS: BP 118/74; PULSE 68; RESP 16; TEMP 36.7; O2SAT 96
[2022-02-06 13:18] VITALS: BP 156/94; PULSE 87; RESP 18; TEMP 36.8; O2SAT 100
--- NOTE | 2022-02-06 13:29 | ED_ITS ---
HPI - Back Pain/Injury General: Chief Complaint: Back Pain/Injury Stated Complaint: Back injury Time Seen by Provider: 02/06/22 13:15 History of Present Illness: Patient is a 46-year-old male comes to the ED with back injury. Patient says today he was lifting some shingles and strained his lower back. He now has 10 out of 10 pain in his right lower back region. Certain movements of torso causes worsening pain. Denies any fall or other injuries. Denies cauda equina symptoms. Denies any pain radiating down into legs. Associated symptoms: Deny abdominal pain, chills, dysuria, fatigue, fever(s), hematuria, nausea or vomiting Review of Systems Const: Denies: fever(s), chills or fatigue Eyes: Denies: change in vision or eye discomfort ENMT: Denies: throat pain, odynophagia, nasal discharge or nasal congestion Card: Denies: chest pain, palpitations, edema, swelling of feet/ankles, dyspnea on exertion or orthopnea Resp: Denies: dyspnea, productive cough or non-productive cough GI: Denies: abdominal pain, nausea, vomiting, diarrhea, constipation or hematochezia : Denies: flank pain, difficulty urinating, dysuria or hematuria Musc: Reports: back pain; Denies: neck pain or extremity swelling Skin/Breast: Denies: rash or new lesions Neuro: Denies: headache(s), numbness in extremities or weakness in extremities [facility] ED PFSH: Medical History Angina pectoris, unstable Atherosclerotic heart disease of [place] coronary artery with unstable angina pectoris Benign essential HTN CAD (coronary artery disease) 9stents Chest pain CVA (cerebrovascular accident) Diabetes Dyslipidemia (high LDL; low HDL) Former smoker HTN (hypertension) Surgical History History of appendectomy Family History Other No pertinent family history Social History Smoking and tobacco status: former smoker Alcohol intake: never Housing: House Physical Exam Const: COMMON NORMALS: no acute distress, patient oriented x3 and alert HENMT: COMMON NORMALS: normocephalic HEAD & SCALP: normocephalic MOUTH: Normal oral and palatal mucosa present THROAT: posterior oropharynx normal and uvula midline Neck/C-Spine: COMMON NORMALS: supple GENERAL: Yes normal visual inspection Resp: COMMON NORMALS: normal respiratory effort, No retractions, No use of accessory muscles and clear to auscultation bilaterally AUSCULTATION: clear to auscultation bilaterally Cardio: COMMON NORMALS: regular rate, regular rhythm, S1 normal heart sound present, S2 normal heart sound present, No gallops present (Cardio), No clicks present (Cardio), No murmurs present (Cardio) and Peripheral pulses 2+ throughout RATE: regular rate RHYTHM: regular rhythm HEART SOUNDS: S1 normal heart sound present and S2 normal heart sound present PERIPHERAL PULSES: Peripheral pulses 2+ throughout GI: COMMON NORMALS: Normal to inspection, nondistended, normoactive bowel sounds present, Soft to palpation, non-tender and no masses PALPATION: Yes Soft to palpation : COMMON NORMALS: Yes no CVA tenderness BLADDER/KIDNEY EXAM: Yes no CVA tenderness Back/Pelvis: COMMON NORMALS: no CVA tenderness LUMBAR SPINE/LOWER BACK: Yes pain with ROM, No lumbar spinal tenderness and Yes paraspinal muscle tenderness Lumbar paraspinal muscle tenderness: bilateral Extremity: COMMON NORMALS: normal to inspection Neuro: COMMON NORMALS: patient oriented x3 SENSORIUM/ORIENTATION: Yes alert GAIT: Yes Normal gait present Skin: GENERAL SKIN EXAM: dry skin Course Vital Signs: Vital signs: Vital Signs Temperature 98.2 F 02/06/22 13:18 Pulse Rate 87 02/06/22 13:18 Respiratory Rate 18 02/06/22 13:18 Blood Pressure 156/94 02/06/22 13:18 Pulse Oximetry 100 02/06/22 13:18 Oxygen Delivery Me thod 02/06/22 11:32 MDM - Back Pain/Injury Medical Decision Making Patient is a 46-year-old male comes to the ED with lower back pain. Patient says earlier today he was lifting some roof shingles and strained his lower back. Denies any cauda equina symptoms denies any pain rating down his legs. Vitals are stable. Patient appears nontoxic in no acute distress. He has some lumbar paraspinal muscle tenderness but rest of exam is benign. Patient was diagnosed with lumbar strain and was discharged home with a prescription for Tylenol and a muscle relaxer. Told to follow-up with his PCP in the next week for reevaluation. Return to ED precautions given. Patient understood and agreed with plan. Discharge Plan Discharge Patient Disposition: Home Clinical Impression: Low back strain Qualifiers: Encounter type: initial encounter Qualified Code(s): S39.012A - Strain of muscle, fascia and tendon of lower back, initial encounter Condition: Stable Prescriptions: New cyclobenzaprine 10 mg tablet 10 mg PO BID PRN (Reason: muscle spasm) Qty: 20 0RF acetaminophen 500 mg tablet 500 mg PO Q6H PRN (Reason: pain) Qty: 30 0RF No Action clopidogrel 75 mg tablet 75 mg PO QAM Qty: 30 1RF gbkycwoesu-fqkicxlnvslry-myja 50-325-40 mg tablet 2 tab PO BID PRN (Reason: Migraine Headache) Hold Instructions: interaction with aspirin albuterol sulfate [ProAir HFA] 90 mcg/actuation HFA aerosol inhaler 2 puff INHALATION Q4H PRN (Reason: Shortness Of Breath) 1 Days Qty: 30 0RF hydroxyzine HCl 25 mg tablet 25 mg PO BID PRN (Reason: nausea and vomiting) insulin glargine [Lantus Solostar U-100 Insulin] 100 unit/mL (3 mL) insulin pen 5 unit SUBCUT BEDTIME Qty: 15 0RF insulin aspart U-100 [Novolog Flexpen U-100 Insulin] 100 unit/mL (3 mL) ins ulin pen See Rx Instructions .ROUTE .COMPLEX Qty: 15 0RF Rx Instructions: Inject, 3 times daily, after meals, based on sliding scale provided pantoprazole [Protonix] 40 mg tablet,delayed release (DR/EC) 40 mg PO BID 30 Days Qty: 30 1RF Seroquel 50 mg Tablet 50 mg PO BEDTIME carvedilol 3.125 mg tablet 3.125 mg PO Q12H isosorbide mononitrate 60 mg tablet extended release 24 hr 120 mg PO BID aripiprazole 10 mg tablet 5 mg PO BEDTIME ondansetron HCl 4 mg tablet 4 mg PO Q6H PRN (Reason: nausea and vomiting) Qty: 20 0RF escitalopram oxalate 10 mg Tablet 10 mg PO DAILY 30 Days Qty: 30 1RF atorvastatin 40 mg tablet 40 mg PO BEDTIME 30 Days Qty: 30 1RF ondansetron HCl 4 mg tablet 4 mg PO Q8H PRN (Reason: Nausea And Vomiting) 30 Days Qty: 60 1RF aspirin 81 mg Tablet,Delayed Release (Dr/Ec) 81 mg PO QAM 30 Days Qty: 30 1RF nitroglycerin [Nitrostat] 0.4 mg Tablet, Sublingual 0.4 mg SUBLINGUAL Q5M PRN (Reason: Chest Pain) 30 Days Qty: 60 1RF Rx Instructions: do not exceed 3 doses per episode ranolazine 500 mg tablet extended release 12 hr 500 mg PO BID 30 Days Qty: 60 1RF methocarbamol 750 mg tablet 750 mg PO Q6H PRN (Reason: spasms) Qty: 20 0RF Discharge Orders: Discharge ED (Routine); Ordered 02/06/22 Ordered By: Haider Fan Referrals: Cecily Miller MD [Primary Care Provider] - Discharge Diet: Regular Discharge Activity: Increase activity as tolerated Activity Restrictions/Additional Instructions: Follow-up with medical provider as directed next 7 to 10 days reevaluation. Take medications as prescribed. Rest and limit any lifting to 10 pounds or less for the next couple days. Return to the ER or your medical provider if condition worsens. Please read and understand discharge instructions. Thank you for choosing [facility] for your healthcare needs today. Please realize this is an emergency room and that we are providing you with a medical screening exam and this may not be complete and all inclusive of all the testing and or work up that you may need to determine your ailment or severity of your illness. It is very important that you follow up as instructed or that you return to the Emergency Department should you have concerns or if your condition changes or worsens in any way. Coding Level of Care Code ED Work Checker for Marcelino Fwmacy Exam Comprehensive
[2022-02-06] MEDS: orphenadrine 30 mg/mL Inj 2 mL 60 MG IM (13:43)
[2022-02-06] MEDS: HYDROcodone-acetaminophen 5-325 mg Tablet 1 TAB PO (13:43)
== END 2022-02-06 14:07 | disposition home or self-care (01) ==
PROVIDERS: Emergency Provider Physician Assistant; PCP Internal Medicine
DX: S39.012A Strain of muscle, fascia and tendon of lower back, initial encounter (principal); Z79.02 Long term (current) use of antithrombotics/antiplatelets; Z79.82 Long term (current) use of aspirin; Z79.4 Long term (current) use of insulin; I25.10 Atherosclerotic heart disease of native coronary artery without angina pectoris; Z86.73 Personal history of transient ischemic attack (TIA), and cerebral infarction without residual deficits; E11.9 Type 2 diabetes mellitus without complications; E78.5 Hyperlipidemia, unspecified; I10 Essential (primary) hypertension; Z87.891 Personal history of nicotine dependence; X50.0XXA Overexertion from strenuous movement or load, initial encounter
CPT/HCPCS: 96372; 99284; J2360

== ENCOUNTER 2022-02-07 17:13 | Emergency (ER) | payer OTHER, MEDICAID, SELFPAY ==
[2022-02-07 17:17] VITALS: BP 142/118; PULSE 92; RESP 15; TEMP 36.9; O2SAT 96; BMI 21.1
--- NOTE | 2022-02-07 17:17 | W.ED.CHESTPA ---
HPI - Chest Pain General: Chief Complaint: Chest Pain Stated Complaint: CHEST PAIN; HEADACHE Time Seen by Provider: 02/07/22 17:14 Source: patient Mode of arrival: EMS History of Present Illness: 46-year-old male presents once again to the emergency room. Patient is here essentially almost daily. Patient most often complains of chest pain. 1 episode where he vasovagal done CPR was started earlier this week. He was discharged the same day. He presents today complaining of chest pain with pain radiating to the left side of his neck. Patient has had 4 angiograms this calendar year all of which have been negative. Unfortunately he has had some coronary disease in the past and has had stents however both of his stents are patent on all of the recent angiograms. There is significant concern for iatrogenic injury with his repeated presentations. MD complaint: chest pain Onset (ago): minute(s) Timing of current episode: episodic Prior episodes: Yes Onset: during rest Pain location: left chest Pain radiation: neck Severity: mild Quality: sharp Relieving factors: nothing Exacerbating factors: nothing Associated symptoms: Deny abdominal pain, diaphoresis, dyspnea, fever(s), leg edema, nausea, palpitations, sense of impending doom, syncope or vomiting Treatment prior to arrival: nitroglycerin Review of Systems Const: Denies: fever(s) or diaphoresis ENMT: Denies: throat pain, ear or mastoid pain, nasal discharge or nasal congestion Card: Reports: chest pain; Denies: palpitations or syncope Resp: Denies: dyspnea GI: Denies: abdominal pain, nausea or vomiting : Denies: flank pain, difficulty urinating, dysuria, urinary frequency or urinary urgency Skin/Breast: Denies: rash or pruritus PFSH ED PFSH: Medical History Angina pectoris, unstable Benign essential HTN CAD (coronary artery disease) 9stents Chest pain CVA (cerebrovascular accident) Diabetes Dyslipidemia (high LDL; low HDL) Former smoker HTN (hypertension) Surgical History History of appendectomy Family History Other No pertinent family history Social History (Reviewed 02/09/22 @ 07:21 by AGNES Levin Smoking and tobacco status: former smoker Alcohol intake: never Housing: House Physical Exam Const: COMMON NORMALS: no acute distress ORIENTATION/CONSCIOUSNESS: Yes awake, Yes oriented to person, Yes oriented to place and Yes oriented to time HENMT: COMMON NORMALS: normocephalic, atraumatic and hearing grossly normal bilaterally HEAD & SCALP: normocephalic and atraumatic Resp: COMMON NORMALS: normal respiratory effort, No retractions, No use of accessory muscles and clear to auscultation bilaterally AUSCULTATION: clear to auscultation bilaterally Cardio: COMMON NORMALS: regular rate, regular rhythm and No murmurs present (Cardio) RATE: regular rate RHYTHM: regular rhythm GI: COMMON NORMALS: Soft to palpation and No hepatosplenomegaly present AUSCULTATION: Yes normoactive bowel sounds PALPATION: Yes Soft to palpation, No Tenderness to palpation present (GI), No Guarding due to palpation present (GI) and Yes No hepatosplenomegaly present Extremity: COMMON NORMALS: normal to inspection, capillary refill normal, no clubbing, cyanosis or edema, no calf tenderness and no pedal edema Neuro: SENSORIUM/ORIENTATION: Yes oriented to person, Yes oriented to place and Yes oriented to time Skin: COMMON NORMALS: no rashes or lesions noted GENERAL SKIN EXAM: no rashes or lesions noted Course Vital Signs: Vital signs: Vital Signs Temperature 98.4 F 02/07/22 17:52 Pulse Rate 92 02/07/22 17:52 Respiratory Rate 15 02/07/22 17:52 Blood Pressure 142/118 02/07/22 17:52 Pulse Oximetry 96 02/07/22 17:52 Oxygen Delivery Me thod 02/07/22 17:[address] [facility] - Chest Pain Medical Decision Making Mr. June presents significant challenges here nearly daily and sometimes several times a day first similar complaints. Most often chest pain headache or abdominal pain. Multiple work-ups have not shown any significant abnormalities. He has been CT did nearly multiple times this year with no significant finding. He has had 4 angiograms several CTAs of the head and neck even received tPA at 1 point. At this point he again appears to be malingering his EKG does not show anything acute and he has no significant physical exam findings. We will discharge the patient home encouraged him to follow-up with his primary care doctor. Medical Records I reviewed the patient's medical records. Lab Data I reviewed the patient's lab results. Laboratory Results POC Glucose 112 mg/dL (70-110) H 02/07/22 17:32 Discharge Plan Discharge Patient Disposition: Home Clinical Impression: Chronic chest pain, Malingering Condition: Stable Prescriptions: No Action clopidogrel 75 mg tablet 75 mg PO QAM Qty: 30 1RF wuyvilxmes-xlysgvmpsgdtn-zjhz 50-325-40 mg tablet 2 tab PO BID PRN (Reason: Migraine Headache) Hold Instructions: interaction with aspirin albuterol sulfate [ProAir HFA] 90 mcg/actuation HFA aerosol inhaler 2 puff INHALATION Q4H PRN (Reason: Shortness Of Breath) 1 Days Qty: 30 0RF hydroxyzine HCl 25 mg tablet 25 mg PO BID PRN (Reason: nausea and vomiting) insulin glargine [Lantus Solostar U-100 Insulin] 100 unit/mL (3 mL) insulin pen 5 unit SUBCUT BEDTIME Qty: 15 0RF insulin aspart U-100 [Novolog Flexpen U-100 Insulin] 100 unit/mL (3 mL) insulin pen See Rx Instructions .ROUTE .COMPLEX Qty: 15 0RF Rx Instructions: Inject, 3 times daily, after meals, based on sliding scale provided pantoprazole [Protonix] 40 mg tablet,delayed release (DR/EC) 40 mg PO BID 30 Days Qty: 30 1RF Seroquel 50 mg Tablet 50 mg PO BEDTIME carvedilol 3.125 mg tablet 3.125 mg PO Q12H isosorbide mononitrate 60 mg tablet extended release 24 hr 120 mg PO BID aripiprazole 10 mg tablet 5 mg PO BEDTIME ondansetron HCl 4 mg tablet 4 mg PO Q6H PRN (Reason: nausea and vomiting) Qty: 20 0RF escitalopram oxalate 10 mg Tablet 10 mg PO DAILY 30 Days Qty: 30 1RF atorvastatin 40 mg tablet 40 mg PO BEDTIME 30 Days Qty: 30 1RF ondansetron HCl 4 mg tablet 4 mg PO Q8H PRN (Reason: Nausea And Vomiting) 30 Days Qty: 60 1RF aspirin 81 mg Tablet,Delayed Release (Dr/Ec) 81 mg PO QAM 30 Days Qty: 30 1RF nitroglycerin [Nitrostat] 0.4 mg Tablet, Sublingual 0.4 mg SUBLINGUAL Q5M PRN (Reason: Chest Pain) 30 Days Qty: 60 1RF Rx Instructions: do not exceed 3 doses per episode ranolazine 500 mg tablet extended release 12 hr 500 mg PO BID 30 Days Qty: 60 1RF methocarbamol 750 mg tablet 750 mg PO Q6H PRN (Reason: spasms) Qty: 20 0RF cyclobenzaprine 10 mg tablet 10 mg PO BID PRN (Reason: muscle spasm) Qty: 20 0RF acetaminophen 500 mg tablet 500 mg PO Q6H PRN (Reason: pain) Qty: 30 0RF Discharge Orders: Discharge ED (Routine); Ordered 02/07/22 Ordered By: Kam Martinez Referrals: Cecily Miller MD [Primary Care Provider] - Discharge Diet: Usual diet Discharge Activity: Resume usual activity Patient Instructions: Opioid Safety Coding Level of Care Code ED Shed Boss for Chg Fwd Exam Detailed
--- NOTE | 2022-02-07 17:25 | ECG_ITS ---
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 Measurements Intervals [place] Rate: 94 P: 55 AR: 140 QRS: 66 QRSD: 84 T: 65 QT: 321 QTc: 402 Interpretive Statements SINUS RHYTHM MINIMAL VOLTAGE CRITERIA FOR LVH, CONSIDER NORMAL VARIANT [MEETS CRITERIA IN ONE OF: R(aVL), S(V1), R(V5), R(V5/V6)+S(V1)] Compared to ECG 02/02/2022 15:23:44 No significant changes Electronically Signed On 02-09-2022 8:02:07 CDT by Regine Bar M.D. [id number]
[2022-02-07 17:35] LABS: Glucose Point of Care 112 mg/dL (70-110)
[2022-02-07 17:52] VITALS: BP 142/118; PULSE 92; RESP 15; TEMP 36.9; O2SAT 96
== END 2022-02-07 17:53 | disposition home or self-care (01) ==
PROVIDERS: Emergency Provider Family Medicine; PCP Internal Medicine
DX: G89.29 Other chronic pain (principal); R07.9 Chest pain, unspecified; Z76.5 Malingerer [conscious simulation]; Z79.02 Long term (current) use of antithrombotics/antiplatelets; Z79.4 Long term (current) use of insulin; I25.10 Atherosclerotic heart disease of native coronary artery without angina pectoris; Z86.73 Personal history of transient ischemic attack (TIA), and cerebral infarction without residual deficits; E11.9 Type 2 diabetes mellitus without complications; E78.5 Hyperlipidemia, unspecified; I10 Essential (primary) hypertension; Z87.891 Personal history of nicotine dependence
CPT/HCPCS: 36416; 82962; 93005; 99284

== ENCOUNTER 2022-02-07 23:28 | Emergency (ER) | payer OTHER, MEDICAID, SELFPAY ==
[2022-02-07 23:29] VITALS: BP 137/79; PULSE 80; RESP 18; TEMP 36.6; O2SAT 100; BMI 23.1
--- NOTE | 2022-02-08 01:53 | W.ED.CHESTPA ---
HPI - Chest Pain General: Chief Complaint: Chest Pain Stated Complaint: CP Time Seen by Provider: 02/08/22 01:33 History of Present Illness: 46-year-old male presents by ambulance for chest discomfort. Evidently he was at the [facility] office at an AA meeting. He was seen once within the last 12 to 24 hours for the same complaint and discharged. He is well-known to the ER, with almost daily visits for chest discomfort and malingering. On EMS arrival, he was allowed to go to triage, at which point after waiting for a bit, he threw himself out of the chair and into the floor striking his head on the floor causing a small abrasion. MD complaint: chest pain Pertinent past history: other Onset (ago): hour(s) Prior episodes: Yes Onset: during rest Pain location: substernal Pain radiation: none Relieving factors: nothing Associated symptoms: Deny abdominal pain, diaphoresis, dyspnea, fever(s), leg edema, syncope or vomiting Treatment prior to arrival: none Review of Systems Const: Denies: fever(s) or diaphoresis Card: Denies: syncope Resp: Denies: dyspnea GI: Denies: abdominal pain or vomiting [facility] ED PFSH: Medical History Angina pectoris, unstable Benign essential HTN CAD (coronary artery disease) 9stents Chest pain CVA (cerebrovascular accident) Diabetes Dyslipidemia (high LDL; low HDL) Former smoker HTN (hypertension) Surgical History History of appendectomy Family History Other No pertinent family history Social History Smoking and tobacco status: former smoker Alcohol intake: never Housing: House Physical Exam Const: GENERAL APPEARANCE: cooperative and well kempt NUTRITIONAL APPEARANCE: thin ORIENTATION/CONSCIOUSNESS: Yes awake, Yes oriented to person, Yes oriented to place and Yes oriented to time HENMT: COMMON NORMALS: normocephalic and Normal external nose present HEAD & SCALP: normocephalic and contusion (small at vertex with small abrasion. bleeding controlled) FACE & SINUS: normal facial exam and face symmetric NOSE: Normal external nose present Eye: COMMON NORMALS: Equal, round and reactive pupils present and EOMs intact bilaterally PUPIL: Yes Equal, round and reactive pupils present Neck/C-Spine: GENERAL: Yes trachea midline Chest: COMMONS NORMALS: normal inspection of the chest CHEST: Yes Symmetrical chest wall rise Resp: COMMON NORMALS: normal respiratory effort, No use of accessory muscles and clear to auscultation bilaterally AUSCULTATION: clear to auscultation bilaterally Cardio: COMMON NORMALS: regular rate and regular rhythm RATE: regular rate RHYTHM: regular rhythm GI: COMMON NORMALS: Normal to inspection, nondistended, normoactive bowel sounds present and Soft to palpation PALPATION: Yes Soft to palpation Extremity: COMMON NORMALS: no pedal edema Neuro: SENSORIUM/ORIENTATION: Yes oriented to person, Yes oriented to place and Yes oriented to time MOTOR EXAM: Normal motor muscle tone present throughout Psych: APPEARANCE: Yes well kempt Skin: NARRATIVE SKIN EXAM: see above Course Vital Signs: Vital signs: Vital Signs Temperature 97.8 F 02/07/22 23:29 Pulse Rate 80 02/07/22 23:29 Respiratory Rate 18 02/07/22 23:29 Blood Pressure 137/79 02/07/22 23:29 Pulse Oximetry 100 02/07/22 23:29 Oxygen Delivery Me thod 02/07/22 23:29 MDM - Chest Pain Medical Decision Making This patient has an EKG showing sinus rhythm with normal axis and intervals. Rate is 75. Voltage criteria is met for LVH. There are no ST changes. This is an unchanged EKG from prior, and from less than 24 hours ago. This patient has a significant history of malingering with nearly daily visits, some time more than 1 visit per day with chronic chest discomfort. He is slightly hypertensive here. His vitals are otherwise completely normal. He was instructed on his benign EKG findings, and allowed discharge. An incident report was filed by nursing regarding the patient throwing himself into the floor in the lobby/waiting room. Discharge Plan Discharge Patient Disposition: Home Clinical Impression: Chronic chest pain Condition: Stable Prescriptions: No Action clopidogrel 75 mg tablet 75 mg PO QAM Qty: 30 1RF itvxezazrk-yhcpcjaiyujpx-lfhw 50-325-40 mg tablet 2 tab PO BID PRN (Reason: Migraine Headache) Hold Instructions: interaction with aspirin albuterol sulfate [ProAir HFA] 90 mcg/actuation HFA aerosol inhaler 2 puff INHALATION Q4H PRN (Reason: Shortness Of Breath) 1 Days Qty: 30 0RF hydroxyzine HCl 25 mg tablet 25 mg PO BID PRN (Reason: nausea and vomiting) insulin glargine [Lantus Solostar U-100 Insulin] 100 unit/mL (3 mL) insulin pen 5 unit SUBCUT BEDTIME Qty: 15 0RF insulin aspart U-100 [Novolog Flexpen U-100 Insulin] 100 unit/mL (3 mL) insulin pen See Rx Instructions .ROUTE .COMPLEX Qty: 15 0RF Rx Instructions: Inject, 3 times daily, after meals, based on sliding scale provided pantoprazole [Protonix] 40 mg tablet,delayed release (DR/EC) 40 mg PO BID 30 Days Qty: 30 1RF Seroquel 50 mg Tablet 50 mg PO BEDTIME carvedilol 3.125 mg tablet 3.125 mg PO Q12H isosorbide mononitrate 60 mg tablet extended release 24 hr 120 mg PO BID aripiprazole 10 mg tablet 5 mg PO BEDTIME ondansetron HCl 4 mg tablet 4 mg PO Q6H PRN (Reason: nausea and vomiting) Qty: 20 0RF escitalopram oxalate 10 mg Tablet 10 mg PO DAILY 30 Days Qty: 30 1RF atorvastatin 40 mg tablet 40 mg PO BEDTIME 30 Days Qty: 30 1RF ondansetron HCl 4 mg tablet 4 mg PO Q8H PRN (Reason: Nausea And Vomiting) 30 Days Qty: 60 1RF aspirin 81 mg Tablet,Delayed Release (Dr/Ec) 81 mg PO QAM 30 Days Qty: 30 1RF nitroglycerin [Nitrostat] 0.4 mg Tablet, Sublingual 0.4 mg SUBLINGUAL Q5M PRN (Reason: Chest Pain) 30 Days Qty: 60 1RF Rx Instructions: do not exceed 3 doses per episode ranolazine 500 mg tablet extended release 12 hr 500 mg PO BID 30 Days Qty: 60 1RF methocarbamol 750 mg tablet 750 mg PO Q6H PRN (Reason: spasms) Qty: 20 0RF cyclobenzaprine 10 mg tablet 10 mg PO BID PRN (Reason: muscle spasm) Qty: 20 0RF acetaminophen 500 mg tablet 500 mg PO Q6H PRN (Reason: pain) Qty: 30 0RF Discharge Orders: Discharge ED (Routine); Ordered 02/08/22 Ordered By: Pete Noguera Referrals: Cecily Miller MD [Primary Care Provider] - 1-3 days Activity Restrictions/Additional Instructions: See your doctor next week. Home medications as directed. Coding Level of Care Code ED Tester Waste Disposal Leakage for Marcelino Stephen
== END 2022-02-08 02:23 | disposition home or self-care (01) ==
PROVIDERS: Emergency Provider Emergency Medicine; PCP Internal Medicine
DX: G89.29 Other chronic pain (principal); R07.9 Chest pain, unspecified; Z79.02 Long term (current) use of antithrombotics/antiplatelets; Z79.82 Long term (current) use of aspirin; Z79.4 Long term (current) use of insulin; I10 Essential (primary) hypertension; I25.10 Atherosclerotic heart disease of native coronary artery without angina pectoris; E11.9 Type 2 diabetes mellitus without complications; E78.5 Hyperlipidemia, unspecified; Z86.73 Personal history of transient ischemic attack (TIA), and cerebral infarction without residual deficits; Z87.891 Personal history of nicotine dependence
CPT/HCPCS: 99282

== ENCOUNTER 2022-02-14 12:04 | Emergency (ER) | payer OTHER, MEDICAID, SELFPAY ==
[2022-02-14 12:06] VITALS: BP 145/71; PULSE 91; RESP 18; TEMP 36.8; O2SAT 100; BMI 21.1
--- NOTE | 2022-02-14 12:13 | ECG_ITS ---
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 Measurements Intervals [place] Rate: 93 P: 75 [place]: 140 QRS: 81 QRSD: 84 T: 71 QT: 318 QTc: 397 Interpretive Statements SINUS RHYTHM VOLTAGE CRITERIA FOR LVH [MEETS CRITERIA IN ONE OF: R(aVL), S(V1), R(V5), R(V5/V6)+S(V1)] INTERPRETATION BASED ON A DEFAULT AGE OF 40 YEARS Compared to ECG 02/07/2022 17:25:58 No significant changes Electronically Signed On 02-15-2022 8:19:48 CDT by Richie Macias M.D. [id number] f
[2022-02-14 12:48] VITALS: BP 119/57; PULSE 86; RESP 19; O2SAT 98
--- NOTE | 2022-02-20 06:23 | W.ED.CHESTPA ---
HPI - Chest Pain General: Chief Complaint: Chest Pain Stated Complaint: chest pain Time Seen by Provider: 02/14/22 12:22 Source: patient Mode of arrival: ambulatory History of Present Illness: 46-year-old male with skin rash emergency room with complaint of chest pain. He has not been taking his medications recently. His remote history of placement of stents is at multiple angiograms this year all of which were negative. Unfortunately Mr. June is recurrently noncompliant and presents emergency room frequently. His symptoms are unchanged from what his usual presentation is. He is unable to tell me when he last took his Plavix with certainty. MD complaint: chest pain and chest heaviness Onset (ago): hour(s) Timing of current episode: episodic Prior episodes: Yes Onset: during rest Pain location: left chest Severity: moderate Quality: sharp Relieving factors: nothing Exacerbating factors: nothing Associated symptoms: Deny abdominal pain, diaphoresis, dyspnea, fever(s), leg edema, nausea, palpitations, sense of impending doom, syncope or vomiting Treatment prior to arrival: none Review of Systems Const: Denies: fever(s), chills, fatigue, malaise or diaphoresis ENMT: Denies: throat pain, ear or mastoid pain, nasal discharge or nasal congestion Card: Denies: palpitations or syncope Resp: Denies: dyspnea GI: Denies: abdominal pain, nausea or vomiting : Denies: flank pain, dysuria, urinary frequency or urinary urgency Skin/Breast: Denies: rash or pruritus PFSH ED PFSH: Medical History Angina pectoris, unstable Benign essential HTN CAD (coronary artery disease) 9stents Chest pain CVA (cerebrovascular accident) Diabetes Dyslipidemia (high LDL; low HDL) Former smoker HTN (hypertension) Surgical History History of appendectomy Family History Other No pertinent family history Social History Smoking and tobacco status: former smoker Alcohol intake: never Housing: House Physical Exam Const: COMMON NORMALS: no acute distress GENERAL APPEARANCE: cooperative and comfortable ORIENTATION/CONSCIOUSNESS: Yes awake, Yes oriented to person, Yes oriented to place and Yes oriented to time HENMT: COMMON NORMALS: normocephalic, atraumatic and hearing grossly normal bilaterally HEAD & SCALP: normocephalic and atraumatic Resp: COMMON NORMALS: normal respiratory effort, No retractions, No use of accessory muscles and clear to auscultation bilaterally AUSCULTATION: clear to auscultation bilaterally Cardio: COMMON NORMALS: regular rate, regular rhythm and No murmurs present (Cardio) RATE: regular rate RHYTHM: regular rhythm Extremity: COMMON NORMALS: normal to inspection, capillary refill normal, no clubbing, cyanosis or edema, no calf tenderness and no pedal edema Neuro: SENSORIUM/ORIENTATION: Yes oriented to person, Yes oriented to place and Yes oriented to time Skin: COMMON NORMALS: no rashes or lesions noted GENERAL SKIN EXAM: no rashes or lesions noted Course Vital Signs: Vital signs: Vital Signs Temperature 98.3 F 02/14/22 12:06 Pulse Rate 86 02/14/22 12:48 Respiratory Rate 19 H 02/14/22 12:48 Blood Pressure 119/57 02/14/22 12:48 Pulse Oximetry 98 02/14/22 12:48 Oxygen Delivery Me thod 02/14/22 12:06 MDM - Chest Pain Medical Decision Making EKG unremarkable. Plavix refilled follow-up with his primary care doctor. Medical Records I reviewed the patient's medical records. Lab Data I reviewed the patient's lab results. Discharge Plan Discharge Patient Disposition: Home Clinical Impression: Atypical chest pain Condition: Stable Prescriptions: New Plavix 75 mg tablet 75 mg PO DAILY Qty: 30 0RF No Action clopidogrel 75 mg tablet 75 mg PO QAM Qty: 30 1RF zjlsaajhht-irnvlszndwvsr-rvit 50-325-40 mg tablet 2 tab PO BID PRN (Reason: Migraine Headache) Hold Instructions: interaction with aspirin albuterol sulfate [ProAir HFA] 90 mcg/actuation HFA aerosol inhaler 2 puff INHALATION Q4H PRN (Reason: Shortness Of Breath) 1 Days Qty: 30 0RF hydroxyzine HCl 25 mg tablet 25 mg PO BID PRN (Reason: nausea and vomiting) insulin glargine [Lantus Solostar U-100 Insulin] 100 unit/mL (3 mL) insulin pen 5 unit SUBCUT BEDTIME Qty: 15 0RF insulin aspart U-100 [Novolog Flexpen U-100 Insulin] 100 unit/mL (3 mL) insulin pen See Rx Instructions .ROUTE .COMPLEX Qty: 15 0RF Rx Instructions: Inject, 3 times daily, after meals, based on sliding scale provided pantoprazole [Protonix] 40 mg tablet,delayed release (DR/EC) 40 mg PO BID 30 Days Qty: 30 1RF Seroquel 50 mg Tablet 50 mg PO BEDTIME carvedilol 3.125 mg tablet 3.125 mg PO Q12H isosorbide mononitrate 60 mg tablet extended release 24 hr 120 mg PO BID aripiprazole 10 mg tablet 5 mg PO BEDTIME ondansetron HCl 4 mg tablet 4 mg PO Q6H PRN (Reason: nausea and vomiting) Qty: 20 0RF escitalopram oxalate 10 mg Tablet 10 mg PO DAILY 30 Days Qty: 30 1RF atorvastatin 40 mg tablet 40 mg PO BEDTIME 30 Days Qty: 30 1RF ondansetron HCl 4 mg tablet 4 mg PO Q8H PRN (Reason: Nausea And Vomiting) 30 Days Qty: 60 1RF aspirin 81 mg Tablet,Delayed Release (Dr/Ec) 81 mg PO QAM 30 Days Qty: 30 1RF nitroglycerin [Nitrostat] 0.4 mg Tablet, Sublingual 0.4 mg SUBLINGUAL Q5M PRN (Reason: Chest Pain) 30 Days Qty: 60 1RF Rx Instructions: do not exceed 3 doses per episode ranolazine 500 mg tablet extended release 12 hr 500 mg PO BID 30 Days Qty: 60 1RF methocarbamol 750 mg tablet 750 mg PO Q6H PRN (Reason: spasms) Qty: 20 0RF cyclobenzaprine 10 mg tablet 10 mg PO BID PRN (Reason: muscle spasm) Qty: 20 0RF acetaminophen 500 mg tablet 500 mg PO Q6H PRN (Reason: pain) Qty: 30 0RF Discharge Orders: Discharge ED (Routine); Ordered 02/14/22 Ordered By: Kam Martinez Referrals: Cecily Miller MD [Primary Care Provider] - Discharge Diet: Usual diet Discharge Activity: Increase activity as tolerated Patient Instructions: Opioid Safety Coding Level of Care Code ED Online Advertising Director for Marcelino Stephen
== END 2022-02-14 12:49 | disposition home or self-care (01) ==
PROVIDERS: Emergency Provider Family Medicine; PCP Internal Medicine
DX: R07.89 Other chest pain (principal); Z79.02 Long term (current) use of antithrombotics/antiplatelets; Z79.4 Long term (current) use of insulin; Z79.82 Long term (current) use of aspirin; I25.10 Atherosclerotic heart disease of native coronary artery without angina pectoris; Z86.73 Personal history of transient ischemic attack (TIA), and cerebral infarction without residual deficits; E11.9 Type 2 diabetes mellitus without complications; E78.5 Hyperlipidemia, unspecified; I10 Essential (primary) hypertension; Z87.891 Personal history of nicotine dependence
CPT/HCPCS: 93005; 99285

== ENCOUNTER 2022-02-24 18:56 | Emergency (ER) | payer OTHER, MEDICAID, SELFPAY ==
--- NOTE | 2022-02-24 19:10 | ECG_ITS ---
[facility] Test Date: 2022-02-24 Pat Name: Alonso June Department: Room: Gender: Male Information Writer: : 1975 Requested By: Jb Jaime Order Number: [id number] Janel MD: Regine Bar M.D. Measurements Intervals [place] Rate: 104 P: 78 OR: 137 QRS: 79 QRSD: 91 T: 76 QT: 308 QTc: 406 Interpretive Statements SINUS TACHYCARDIA MODERATE VOLTAGE CRITERIA FOR LVH, CONSIDER NORMAL VARIANT [MEETS CRITERIA IN ONE OF: R(aVL), S(V1), R(V5), R(V5/V6)+S(V1)] ABNORMAL RHYTHM ECG Compared to ECG 02/14/2022 12:13:39 Sinus rhythm no longer present Electronically Signed On 02-25-2022 17:34:53 CDT by Regine Bar M.D. [id number]
[2022-02-24 19:13] VITALS: BP 120/63; PULSE 106; RESP 16; TEMP 36.9; O2SAT 99
--- NOTE | 2022-02-24 19:34 | W.ED.CHESTPA ---
HPI - Chest Pain General: Chief Complaint: Chest Pain Stated Complaint: Chest Pains Time Seen by Provider: 02/24/22 18:58 Source: patient Mode of arrival: ambulatory Limitations: no limitations History of Present Illness: 46-year-old male has a history of chronic chest pain and seen in the ER multiple times states he been having a sharp pain all day is worse with palpation and movement. He denies any shortness of breath denies any fever denies any cough denies any worsening proving factors. Associated symptoms: Deny abdominal pain, dyspnea, fever(s), nausea or vomiting Review of Systems Const: Denies: fever(s), chills, body aches or change in appetite Eyes: Denies: blurry vision or eye discomfort ENMT: Denies: throat pain or dental pain Card: Reports: chest pain Resp: Denies: dyspnea GI: Denies: abdominal pain, nausea, vomiting or diarrhea : Denies: dysuria Musc: Denies: neck pain or back pain Skin/Breast: Denies: rash Neuro: Denies: headache(s) Psych: Denies: depression Melquiades/Lymph: Denies: easy bruising All/Imm: Denies: urticaria PFSH ED PFSH: Medical History Angina pectoris, unstable Benign essential HTN CAD (coronary artery disease) 9stents Chest pain CVA (cerebrovascular accident) Diabetes Dyslipidemia (high LDL; low HDL) Former smoker HTN (hypertension) Surgical History History of appendectomy Family History Other No pertinent family history Social History Smoking and tobacco status: former smoker Alcohol intake: never Housing: House Physical Exam Const: COMMON NORMALS: no acute distress, patient oriented x3 and healthy appearing HENMT: COMMON NORMALS: normocephalic and atraumatic HEAD & SCALP: normocephalic and atraumatic Eye: COMMON NORMALS: Equal, round and reactive pupils present and EOMs intact bilaterally PUPIL: Yes Equal, round and reactive pupils present Neck/C-Spine: COMMON NORMALS: full ROM and supple Chest: COMMONS NORMALS: normal inspection of the chest and normal palpation of entire chest wall Resp: COMMON NORMALS: normal respiratory effort, No retractions, No use of accessory muscles and clear to auscultation bilaterally AUSCULTATION: clear to auscultation bilaterally Cardio: COMMON NORMALS: regular rate, regular rhythm and No murmurs present (Cardio) RATE: regular rate RHYTHM: regular rhythm GI: COMMON NORMALS: Normal to inspection, nondistended, normoactive bowel sounds present, Soft to palpation, non-tender and no masses PALPATION: Yes Soft to palpation Extremity: COMMON NORMALS: normal to inspection and full ROM Neuro: COMMON NORMALS: patient oriented x3, moves all extremities and no focal motor deficits Psych: COMMON NORMALS: mental status grossly normal, Normal thought process present and cooperative THOUGHT PROCESS: Normal thought process present Skin: COMMON NORMALS: no rashes or lesions noted and no wounds GENERAL SKIN EXAM: no rashes or lesions noted Course Vital Signs: Vital signs: Vital Signs Temperature 98.5 F 02/24/22 19:13 Pulse Rate 106 H 02/24/22 19:13 Respiratory Rate 16 02/24/22 19:13 Blood Pressure 120/63 02/24/22 19:13 Pulse Oximetry 99 02/24/22 19:13 Oxygen Delivery Me thod 02/24/22 19:13 MDM - Chest Pain Medical Decision Making Patient presents for chest pain is been chronic in nature has been seen in the ER multiple times he has multiple clean cardiac catheter last year as well he is well-appearing here he is no sign of ACS EKG is normal he is stable for discharge. Discharge Plan Discharge Patient Disposition: Home Clinical Impression: Chest pain Qualifiers: Chest pain type: unspecified Qualified Code(s): R07.9 - Chest pain, unspecified Condition: Stable Prescriptions: No Action clopidogrel 75 mg tablet 75 mg PO QAM Qty: 30 1RF zpmjpcpnxs-fyahipjiiozps-rshd 50-325-40 mg tablet 2 tab PO BID PRN (Reason: Migraine Headache) Hold Instructions: interaction with aspirin albuterol sulfate [ProAir HFA] 90 mcg/actuation HFA aerosol inhaler 2 puff INHALATION Q4H PRN (Reason: Shortness Of Breath) 1 Days Qty: 30 0RF hydroxyzine HCl 25 mg tablet 25 mg PO BID PRN (Reason: nausea and vomiting) insulin glargine [Lantus Solostar U-100 Insulin] 100 unit/mL (3 mL) insulin pen 5 unit SUBCUT BEDTIME Qty: 15 0RF insulin aspart U-100 [Novolog Flexpen U-100 Insulin] 100 unit/mL (3 mL) insulin pen See Rx Instructions .ROUTE .COMPLEX Qty: 15 0RF Rx Instructions: Inject, 3 times daily, after meals, based on sliding scale provided pantoprazole [Protonix] 40 mg tablet,delayed release (DR/EC) 40 mg PO BID 30 Days Qty: 30 1RF Seroquel 50 mg Tablet 50 mg PO BEDTIME carvedilol 3.125 mg tablet 3.125 mg PO Q12H isosorbide mononitrate 60 mg tablet extended release 24 hr 120 mg PO BID aripiprazole 10 mg tablet 5 mg PO BEDTIME ondansetron HCl 4 mg tablet 4 mg PO Q6H PRN (Reason: nausea and vomiting) Qty: 20 0RF escitalopram oxalate 10 mg Tablet 10 mg PO DAILY 30 Days Qty: 30 1RF atorvastatin 40 mg tablet 40 mg PO BEDTIME 30 Days Qty: 30 1RF ondansetron HCl 4 mg tablet 4 mg PO Q8H PRN (Reason: Nausea And Vomiting) 30 Days Qty: 60 1RF aspirin 81 mg Tablet,Delayed Release (Dr/Ec) 81 mg PO QAM 30 Days Qty: 30 1RF nitroglycerin [Nitrostat] 0.4 mg Tablet, Sublingual 0.4 mg SUBLINGUAL Q5M PRN (Reason: Chest Pain) 30 Days Qty: 60 1RF Rx Instructions: do not exceed 3 doses per episode ranolazine 500 mg tablet extended release 12 hr 500 mg PO BID 30 Days Qty: 60 1RF methocarbamol 750 mg tablet 750 mg PO Q6H PRN (Reason: spasms) Qty: 20 0RF cyclobenzaprine 10 mg tablet 10 mg PO BID PRN (Reason: muscle spasm) Qty: 20 0RF acetaminophen 500 mg tablet 500 mg PO Q6H PRN (Reason: pain) Qty: 30 0RF Plavix 75 mg tablet 75 mg PO DAILY Qty: 30 0RF Discharge Orders: Discharge ED (Routine); Ordered 02/24/22 Ordered By: Jb Jaime Referrals: Cecily Miller MD [Primary Care Provider] - 1-3 days Discharge Diet: Advance as tolerated Discharge Activity: Resume usual activity Patient Instructions: Chest Pain (ED) Coding Level of Care Code ED Geophysical Support Specialist for Marcelino Stephen
[2022-02-24] MEDS: naproxen 500 mg Tablet PO (19:45)
[2022-02-24 19:50] VITALS: PULSE 92; RESP 18; O2SAT 97
== END 2022-02-24 19:50 | disposition home or self-care (01) ==
PROVIDERS: Emergency Provider Emergency Medicine; PCP Internal Medicine
DX: R07.9 Chest pain, unspecified (principal); I25.10 Atherosclerotic heart disease of native coronary artery without angina pectoris; I10 Essential (primary) hypertension; Z79.82 Long term (current) use of aspirin
CPT/HCPCS: 93005; 99283

== ENCOUNTER 2022-03-04 21:20 | Emergency (ER) | payer OTHER, MEDICAID, SELFPAY ==
[2022-03-04 22:17] VITALS: BP 137/79; PULSE 78; RESP 16; TEMP 36.6; O2SAT 98; BMI 21.7
== END 2022-03-05 01:45 | disposition left against medical advice (07) ==
PROVIDERS: Emergency Provider Family Medicine; PCP Internal Medicine
DX: Z53.21 Procedure and treatment not carried out due to patient leaving prior to being seen by health care provider (principal); R07.9 Chest pain, unspecified

== ENCOUNTER 2022-03-11 21:58 | Emergency (ER) | payer OTHER, MEDICAID, SELFPAY ==
--- NOTE | 2022-03-11 22:16 | ECG_ITS ---
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 Measurements Intervals [place] Rate: 91 P: 73 NC: 157 QRS: 71 QRSD: 88 T: 69 QT: 325 QTc: 400 Interpretive Statements SINUS RHYTHM POSSIBLE LEFT ATRIAL ENLARGEMENT [-0.1mV P-WAVE IN V1/V2] POSSIBLE LEFT VENTRICULAR HYPERTROPHY [VOLTAGE CRITERIA PLUS LAE OR QRS WIDENING] Compared to ECG 02/24/2022 19:10:40 Sinus tachycardia no longer present Electronically Signed On 03-12-2022 20:41:08 CDT by Anatoliy Jean Baptiste M.D. [id number]
[2022-03-11 22:20] VITALS: BP 136/81; PULSE 94; RESP 16; TEMP 36.8; O2SAT 99; BMI 23.3
[2022-03-12 01:59] VITALS: BP 137/70; PULSE 77; RESP 16; O2SAT 100
--- NOTE | 2022-03-12 01:59 | ED_ITS ---
HPI - Headache General: Chief Complaint: Fever Stated Complaint: cp Time Seen by Provider: 03/12/22 01:50 History of Present Illness: 46-year-old male presents with headache. Patient has frequent visits to the ER for chronic chest pain and migraines.. Patient reports he has a history of migraines and is had a migraine since this morning. Patient reported when he initially came in that he had a fever however he does not complain of fever to me. Patient no other systemic complaints. Associated symptoms: Deny chest pain, nausea, rash or vomiting Review of Systems Const: Reports: fatigue; Denies: chills Eyes: Denies: change in vision or blurry vision Card: Denies: chest pain Resp: Denies: dyspnea or productive cough GI: Denies: abdominal pain, nausea or vomiting : Denies: flank pain or dysuria Skin/Breast: Denies: rash Neuro: Reports: headache(s); Denies: dizziness PFSH ED PFSH: Medical History Angina pectoris, unstable Benign essential HTN CAD (coronary artery disease) 9stents Chest pain CVA (cerebrovascular accident) Diabetes Dyslipidemia (high LDL; low HDL) Former smoker HTN (hypertension) Surgical History History of appendectomy Family History Other No pertinent family history Social History Smoking and tobacco status: former smoker Alcohol intake: never Housing: House Physical Exam Const: COMMON NORMALS: no acute distress, patient oriented x3 and alert HENMT: COMMON NORMALS: normocephalic, hearing grossly normal bilaterally and moist oral mucous membranes HEAD & SCALP: normocephalic Resp: COMMON NORMALS: normal respiratory effort, No use of accessory muscles and clear to auscultation bilaterally AUSCULTATION: clear to auscultation bilaterally Cardio: COMMON NORMALS: regular rate and regular rhythm RATE: regular rate RHYTHM: regular rhythm GI: COMMON NORMALS: Normal to inspection, nondistended, normoactive bowel sounds present, Soft to palpation and non-tender PALPATION: Yes Soft to palpation Extremity: COMMON NORMALS: normal to inspection, full ROM and capillary refill normal Neuro: COMMON NORMALS: patient oriented x3, moves all extremities and no focal motor deficits SENSORIUM/ORIENTATION: Yes alert Psych: COMMON NORMALS: mental status grossly normal, normal affect and speech normal SPEECH: Yes normal speech Course Vital Signs: Vital signs: Vital Signs Temperature 98.3 F 03/11/22 22:20 Pulse Rate 77 03/12/22 01:59 Respiratory Rate 16 03/12/22 01:59 Blood Pressure 137/70 03/12/22 01:59 Pulse Oximetry 100 03/12/22 01:59 Oxygen Delivery Me thod 03/11/22 22:20 MDM - Headache Medical Decision Making Patient with a history of migraines and headaches. Patient with no acute findings on exam. Patient with a history of migraine and frequent ER visits. He will be treated with Reglan due to his significant allergy list along with some Tylenol. Patient needs further medication she can follow-up with a primary care provider. Patient stable and discharged home Discharge Plan Discharge Patient Disposition: Home Clinical Impression: Headache Condition: Stable Prescriptions: No Action clopidogrel 75 mg tablet 75 mg PO QAM Qty: 30 1RF djttnkgnxn-euaemgxveyjkv-xvwm 50-325-40 mg tablet 2 tab PO BID PRN (Reason: Migraine Headache) Hold Instructions: interaction with aspirin albuterol sulfate [ProAir HFA] 90 mcg/actuation HFA aerosol inhaler 2 puff INHALATION Q4H PRN (Reason: Shortness Of Breath) 1 Days Qty: 30 0RF hydroxyzine HCl 25 mg tablet 25 mg PO BID PRN (Reason: nausea and vomiting) insulin glargine [Lantus Solostar U-100 Insulin] 100 unit/mL (3 mL) insulin pen 5 unit SUBCUT BEDTIME Qty: 15 0RF insulin aspart U-100 [Novolog Flexpen U-100 Insulin] 100 unit/mL (3 mL) insulin pen See Rx Instructions .ROUTE .COMPLEX Qty: 15 0RF Rx Instructions: Inject, 3 times daily, after meals, based on sliding scale provided pantoprazole [Protonix] 40 mg tablet,delayed release (DR/EC) 40 mg PO BID 30 Days Qty: 30 1RF Seroquel 50 mg Tablet 50 mg PO BEDTIME carvedilol 3.125 mg tablet 3.125 mg PO Q12H isosorbide mononitrate 60 mg tablet extended release 24 hr 120 mg PO BID aripiprazole 10 mg tablet 5 mg PO BEDTIME ondansetron HCl 4 mg tablet 4 mg PO Q6H PRN (Reason: nausea and vomiting) Qty: 20 0RF escitalopram oxalate 10 mg Tablet 10 mg PO DAILY 30 Days Qty: 30 1RF atorvastatin 40 mg tablet 40 mg PO BEDTIME 30 Days Qty: 30 1RF ondansetron HCl 4 mg tablet 4 mg PO Q8H PRN (Reason: Nausea And Vomiting) 30 Days Qty: 60 1RF aspirin 81 mg Tablet,Delayed Release (Dr/Ec) 81 mg PO QAM 30 Days Qty: 30 1RF nitroglycerin [Nitrostat] 0.4 mg Tablet, Sublingual 0.4 mg SUBLINGUAL Q5M PRN (Reason: Chest Pain) 30 Days Qty: 60 1RF Rx Instructions: do not exceed 3 doses per episode ranolazine 500 mg tablet extended release 12 hr 500 mg PO BID 30 Days Qty: 60 1RF methocarbamol 750 mg tablet 750 mg PO Q6H PRN (Reason: spasms) Qty: 20 0RF cyclobenzaprine 10 mg tablet 10 mg PO BID PRN (Reason: muscle spasm) Qty: 20 0RF acetaminophen 500 mg tablet 500 mg PO Q6H PRN (Reason: pain) Qty: 30 0RF Plavix 75 mg tablet 75 mg PO DAILY Qty: 30 0RF Discharge Orders: Discharge ED (Routine); Ordered 03/12/22 Ordered By: Bernard Naylor Referrals: Cecily Miller MD [Primary Care Provider] - Discharge Diet: Usual diet Discharge Activity: Resume usual activity Patient Instructions: Headache - Migraine (Adult), Opioid Safety, Pain Management Activity Restrictions/Additional Instructions: Follow-up with your primary care provider as needed for management of your migraines Coding Level of Care Code ED Annual Campaign Manager for Rajivg Fwd Exam Comprehensive
[2022-03-12 02:11] VITALS: BP 135/67; PULSE 75; RESP 16; O2SAT 100
[2022-03-12] MEDS: acetaminophen 325 mg Tablet 650 MG PO (02:11)
[2022-03-12] MEDS: metoclopramide 5 mg/mL SDV 2 mL IM (02:11)
== END 2022-03-12 02:13 | disposition home or self-care (01) ==
PROVIDERS: Emergency Provider Student in an Organized Health Care Education/Training Program; PCP Internal Medicine
DX: R51.9 Headache, unspecified (principal); Z79.02 Long term (current) use of antithrombotics/antiplatelets; Z79.82 Long term (current) use of aspirin; Z79.4 Long term (current) use of insulin; I25.10 Atherosclerotic heart disease of native coronary artery without angina pectoris; I10 Essential (primary) hypertension; Z86.73 Personal history of transient ischemic attack (TIA), and cerebral infarction without residual deficits; E11.9 Type 2 diabetes mellitus without complications; E78.5 Hyperlipidemia, unspecified; Z87.891 Personal history of nicotine dependence
CPT/HCPCS: 93005; 96372; 99285; J2765

== ENCOUNTER 2022-03-15 15:10 | Emergency (ER) | payer OTHER, MEDICAID, SELFPAY ==
[2022-03-15 15:12] VITALS: BP 131/73; PULSE 101; RESP 16; TEMP 36.3; O2SAT 98; BMI 22.6
--- NOTE | 2022-03-15 15:15 | ECG_ITS ---
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
--- NOTE | 2022-03-15 15:28 | ED_ITS ---
HPI - Ear Problem General: Chief complaint: Ear Stated complaint: Chest Pain and ear ache Time Seen by Provider: 03/15/22 15:21 History of Present Illness: 46-year-old male patient comes in today with complaints of left ear pain. Patient also reports some chest discomfort that started when he arrived at the emergency room. Patient appears nontoxic. Patient reports that the ear pain started in the last 2 to 3 days. Patient appears in mild pain. Patient has a history of recurrent chest pain, coronary artery disease, history of NSTEMI, bipolar disorder, malingering, and hypertension. Associated symptoms: Reports ear or mastoid pain; Denies fever(s) Review of Systems Const: Denies: fever(s) ENMT: Reports: ear or mastoid pain Card: Reports: chest pain Resp: Denies: dyspnea PFSH ED PFSH: Medical History Angina pectoris, unstable Benign essential HTN CAD (coronary artery disease) 9stents Chest pain CVA (cerebrovascular accident) Diabetes Dyslipidemia (high LDL; low HDL) Former smoker HTN (hypertension) Surgical History History of appendectomy Family History Other No pertinent family history Social History Smoking and tobacco status: former smoker Alcohol intake: never Housing: House Physical Exam Const: COMMON NORMALS: alert HENMT: COMMON NORMALS: normocephalic HEAD & SCALP: normocephalic TYMPANIC MEMBRANE: TM abnormal TM laterality: bilateral dull Neck/C-Spine: COMMON NORMALS: full ROM Chest: COMMONS NORMALS: normal inspection of the chest Resp: COMMON NORMALS: normal respiratory effort Cardio: COMMON NORMALS: regular rate RATE: regular rate GI: COMMON NORMALS: Soft to palpation and non-tender PALPATION: Yes Soft to palpation Extremity: COMMON NORMALS: normal to inspection and no pedal edema Neuro: SENSORIUM/ORIENTATION: Yes alert Skin: COMMON NORMALS: turgor normal GENERAL SKIN EXAM: turgor normal Course Vital Signs: Vital signs: Vital Signs Temperature 97.4 F L 03/15/22 15:12 Pulse Rate 87 03/15/22 15:40 Respiratory Rate 16 03/15/22 15:12 Blood Pressure 132/89 03/15/22 15:40 Pulse Oximetry 99 03/15/22 15:40 Oxygen Delivery Me thod 03/15/22 15:40 MDM - Ear Medical Decision Making 46-year-old male patient comes in today with initial complaints of left ear pain but also states that when he arrived to the ER his chest started hurting. On exam patient appears nontoxic. Patient appears in mild pain. Bilateral tympanic membranes are dull with some fluid behind the left eardrum. Abdomen soft nontender. Vital signs are normal. Differential diagnosis includes but not limited to serous otitis, anxiety, stable angina, otitis externa. EKG was unremarkable. Patient appears to have a serous otitis and some anxiety related to his cardiac history. We will treat his pain with a hydrocodone tablet. Patient then will be put on antibiotics for the next 7 days. Patient reported understanding of care plan need for follow-up or return to the ER. EKG Data EKG 1: EKG interpretation date: 03/15/22 EKG interpretation time: 15:30 Prior EKG tracings: not available for review Interpretation: EKG shows a sinus rhythm with a regular rate of [address] elevation or ectopy was noted. Prior exam was not available for comparison at this time. Discharge Plan Discharge Patient Disposition: Home Clinical Impression: Otitis media, serous, acute Qualifiers: Laterality: left Recurrence: not specified as recurrent Qualified Code(s): H65.02 - Acute serous otitis media, left ear Chest pain Qualifiers: Chest pain type: other chest pain Qualified Code(s): R07.89 - Other chest pain Condition: Stable Prescriptions: New cephalexin 500 mg capsule 500 mg PO TID 5 Days Qty: 15 0RF No Action clopidogrel 75 mg tablet 75 mg PO QAM Qty: 30 1RF dqatwavyul-yniolotbewhpt-njot 50-325-40 mg tablet 2 tab PO BID PRN (Reason: Migraine Headache) Hold Instructions: interaction with aspirin albuterol sulfate [ProAir HFA] 90 mcg/actuation HFA aerosol inhaler 2 puff INHALATION Q4H PRN (Reason: Shortness Of Breath) 1 Days Qty: 30 0RF hydroxyzine HCl 25 mg tablet 25 mg PO BID PRN (Reason: nausea and vomiting) insulin glargine [Lantus Solostar U-100 Insulin] 100 unit/mL (3 mL) insulin pen 5 unit SUBCUT BEDTIME Qty: 15 0RF insulin aspart U-100 [Novolog Flexpen U-100 Insulin] 100 unit/mL (3 mL) insulin pen See Rx Instructions .ROUTE .COMPLEX Qty: 15 0RF Rx Instructions: Inject, 3 times daily, after meals, based on sliding scale provided pantoprazole [Protonix] 40 mg tablet,delayed release (DR/EC) 40 mg PO BID 30 Days Qty: 30 1RF Seroquel 50 mg Tablet 50 mg PO BEDTIME carvedilol 3.125 mg tablet 3.125 mg PO Q12H isosorbide mononitrate 60 mg tablet extended release 24 hr 120 mg PO BID aripiprazole 10 mg tablet 5 mg PO BEDTIME ondansetron HCl 4 mg tablet 4 mg PO Q6H PRN (Reason: nausea and vomiting) Qty: 20 0RF escitalopram oxalate 10 mg Tablet 10 mg PO DAILY 30 Days Qty: 30 1RF atorvastatin 40 mg tablet 40 mg PO BEDTIME 30 Days Qty: 30 1RF ondansetron HCl 4 mg tablet 4 mg PO Q8H PRN (Reason: Nausea And Vomiting) 30 Days Qty: 60 1RF aspirin 81 mg Tablet,Delayed Release (Dr/Ec) 81 mg PO QAM 30 Days Qty: 30 1RF nitroglycerin [Nitrostat] 0.4 mg Tablet, Sublingual 0.4 mg SUBLINGUAL Q5M PRN (Reason: Chest Pain) 30 Days Qty: 60 1RF Rx Instructions: do not exceed 3 doses per episode ranolazine 500 mg tablet extended release 12 hr 500 mg PO BID 30 Days Qty: 60 1RF methocarbamol 750 mg tablet 750 mg PO Q6H PRN (Reason: spasms) Qty: 20 0RF cyclobenzaprine 10 mg tablet 10 mg PO BID PRN (Reason: muscle spasm) Qty: 20 0RF acetaminophen 500 mg tablet 500 mg PO Q6H PRN (Reason: pain) Qty: 30 0RF Plavix 75 mg tablet 75 mg PO DAILY Qty: 30 0RF Discharge Orders: Discharge ED (Routine); Ordered 03/15/22 Ordered By: Edilberto Flannery Referrals: Cecily Miller MD [Primary Care Provider] - Discharge Diet: Usual diet Discharge Activity: Increase activity as tolerated Patient Instructions: Earache (ED), Opioid Safety Activity Restrictions/Additional Instructions: Use acetaminophen or ibuprofen for pain. Take antibiotics as directed. Follow- up with primary care for further instruction. Return to ED for new concerns. Coding Level of Care Code ED Arabic Professor for Rajivg Fwd Exam Comprehensive
[2022-03-15] MEDS: HYDROcodone-acetaminophen 7.5-325 mg Tablet 1 TAB PO (15:38)
[2022-03-15] MEDS: cephALEXin 500 mg Capsule PO (15:38)
[2022-03-15 15:40] VITALS: BP 132/89; PULSE 87; O2SAT 99
[2022-03-15 15:47] VITALS: BP 132/89; PULSE 87; O2SAT 99
[2022-03-15 16:17] VITALS: BP 152/81; PULSE 80; O2SAT 100
[2022-03-15 16:43] VITALS: BP 144/78; PULSE 86; O2SAT 100
== END 2022-03-15 16:35 | disposition home or self-care (01) ==
PROVIDERS: Emergency Provider Nurse Practitioner Family; PCP Internal Medicine
DX: H65.02 Acute serous otitis media, left ear (principal); R07.89 Other chest pain; E11.9 Type 2 diabetes mellitus without complications; I10 Essential (primary) hypertension; E78.5 Hyperlipidemia, unspecified; I25.110 Atherosclerotic heart disease of native coronary artery with unstable angina pectoris; I25.2 Old myocardial infarction; Z79.4 Long term (current) use of insulin; Z79.02 Long term (current) use of antithrombotics/antiplatelets; Z87.891 Personal history of nicotine dependence; Z86.73 Personal history of transient ischemic attack (TIA), and cerebral infarction without residual deficits
CPT/HCPCS: 93005; 99283

== ENCOUNTER 2022-03-21 20:51 | Emergency (ER) | payer MEDICAID, SELFPAY ==
[2022-03-21 20:59] VITALS: BP 160/73; PULSE 88; RESP 16; TEMP 36.4; O2SAT 100
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
--- NOTE | 2022-03-21 23:21 | PC.NURSE ---
assumed care of patient at this time.
--- NOTE | 2022-03-21 23:29 | PC.NURSE ---
patient spouse meliza called at [phone], number is inactive. patient cannot remember her number. provider notified.
--- NOTE | 2022-03-21 23:32 | PC.NURSE ---
patient placed in waiting area by provider.
--- NOTE | 2022-03-21 23:39 | XRR_ITS ---
PROCEDURE INFORMATION: Exam: XR Cervical Spine Exam date and time: 03/21/2022 11:50 PM Age: 46 years old Clinical indication: Neck pain TECHNIQUE: Imaging protocol: Radiologic exam of the cervical spine. Views: 2 or 3 views. COMPARISON: CT angio headneck* [id number] 01/02/2022 5:16 PM FINDINGS: Bones/joints: Normal. No acute fracture. Normal alignment. Soft tissues: Unremarkable. XR/XR cervical spine 3V* [id number] IMPRESSION: No acute findings.
[2022-03-22] MEDS: ondansetron 4 MG Tablet PO (01:11)
--- NOTE | 2022-03-22 01:11 | PC.NURSE ---
Active baclofen order entered in error. med not given. patient d/c with rx.
[2022-03-22 01:12] VITALS: RESP 19; O2SAT 100
== END 2022-03-22 01:13 | disposition home or self-care (01) ==
PROVIDERS: Emergency Provider Nurse Practitioner Family; PCP Internal Medicine
DX: R51.9 Headache, unspecified (principal); M54.2 Cervicalgia; Z79.02 Long term (current) use of antithrombotics/antiplatelets; Z79.82 Long term (current) use of aspirin; Z79.4 Long term (current) use of insulin; I25.10 Atherosclerotic heart disease of native coronary artery without angina pectoris; I10 Essential (primary) hypertension; Z86.73 Personal history of transient ischemic attack (TIA), and cerebral infarction without residual deficits; E11.9 Type 2 diabetes mellitus without complications; E78.5 Hyperlipidemia, unspecified; Z87.891 Personal history of nicotine dependence
CPT/HCPCS: 72040; 99283; Q0162

== ENCOUNTER 2022-03-26 23:01 | Inpatient (IN) | payer MEDICAID, SELFPAY ==
--- NOTE | 2022-03-26 23:04 | XRR_ITS ---
PROCEDURE INFORMATION: Exam: XR Chest Exam date and time: 03/27/2022 12:23 AM Age: 46 years old Clinical indication: Pain and abnormal findings; Abnormal diagnostic tests; Other: Troponin 161; Chest pressure; Prior surgery; Surgery type: Coronary stent; Patient HX: C/O left sided chest pain with baseline trop of 161. ; Additional info: Cp TECHNIQUE: Imaging protocol: Radiologic exam of the chest. Views: 1 view. COMPARISON: CR (CHEST, ) 02/01/2022 2:27 AM FINDINGS: Lungs: Unremarkable. No consolidation. Pleural spaces: Unremarkable. No pleural effusion. No pneumothorax. Heart/Mediastinum: Unremarkable. No cardiomegaly. Bones/joints: Unremarkable. XR/XR chest 1V portable [id number] IMPRESSION: No acute findings.
[2022-03-26 23:36] VITALS: BP 137/91; PULSE 84; RESP 18; TEMP 36.6; O2SAT 99; BMI 20.9
--- NOTE | 2022-03-26 23:41 | ECG_ITS ---
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 Measurements Intervals [place] Rate: 87 P: 74 CT: 152 QRS: 78 QRSD: 81 T: 77 QT: 323 QTc: 391 Interpretive Statements SINUS RHYTHM MINIMAL VOLTAGE CRITERIA FOR LVH, CONSIDER NORMAL VARIANT [MEETS CRITERIA IN ONE OF: R(aVL), S(V1), R(V5), R(V5/V6)+S(V1)] SEPTAL MYOCARDIAL INFARCTION , OF INDETERMINATE AGE [40+ ms Q WAVE IN V1/V2] Compared to ECG 03/15/2022 15:15:59 Myocardial infarct finding now present Sinus tachycardia no longer present Electronically Signed On 03-27-2022 14:48:24 CDT by Heath Pacheco M.D. [id number]
[2022-03-27] VITALS (22 sets, daily range): BP systolic 117–163; BP diastolic 60–80; PULSE 69–90; RESP 14–22; TEMP 36.6–37.1; O2SAT 97–100
[2022-03-27 00:06] LABS: Basophils # 0.1 10^3/uL (0.0-0.1); Basophils % 0.7 %; Eosinophils # 0.3 10^3/uL (0.0-0.8); Eosinophils % 3.9 %; Hematocrit 35.3 % (42.0-52.0); Hemoglobin 10.9 g/dL (11.7-16.6); Lymphocytes # 2.1 10^3/uL (0.8-4.8); Lymphocytes % 28.7 %; Mean Corpuscular HGB Conc 30.9 g/dL (30.0-36.0); Mean Corpuscular Hemoglobin 22.1 pg (28.0-34.0); Mean Corpuscular Volume 71.5 fl (80-94); Mean Platelet Volume 11.6 fL (7.4-10.4); Monocytes % 13.9 %; Neutrophils # 3.77 10^3/uL (1.8-7.7); Neutrophils % 52.5 %; Nucleated Red Blood Cells % 0 %; Platelet Count 269 10^3/cmm (130-400); Red Blood Count 4.94 10^6/uL (4.1-5.3); Red Cell Distribution Width 17.3 % (12.1-15.1); White Blood Count 7.2 10^3/uL (4.0-10.0)
[2022-03-27 00:17] LABS: Alanine Aminotransferase 6 U/L (0-41); Albumin Level 4.5 g/dL (3.5-5.2); Alkaline Phosphatase 87 U/L (40-130); Anion Gap 16.7 (5-19); Aspartate Amino Transferase 13 U/L (0-40); Blood Urea Nitrogen 13 mg/dL (6-20); Calcium 9.2 mg/dL (8.5-10.5); Carbon Dioxide 25 mmol/L (22-29); Chloride 108 mmol/L (98-107); Creatinine Clr Calc Pharmacy 68.7409; Globulin 2.6 g/dL (1.3-4.6); Glomerular Filtration Rate 65.8 mL/min (90-130); Glucose 103 mg/dL (65-115); Osmolality Calculated 300 mOsm/kg (285-295); Potassium 4.7 mmol/L (3.5-5.1); Sodium 145 mmol/L (136-145); Total Bilirubin 0.2 mg/dL (0.15-1.2); Total Protein 7.1 g/dL (6.6-8.7)
[2022-03-27 00:18] LABS: Troponin(5th) Baseline 161 ng/L (0-15)
--- NOTE | 2022-03-27 00:25 | ED_ITS ---
HPI - Chest Pain General: Chief Complaint: Chest Pain Stated Complaint: cp Time Seen by Provider: 03/26/22 23:25 Source: patient Mode of arrival: ambulatory Limitations: no limitations History of Present Illness: 46-year-old male who is very well-known to the ER he has been seen here multiple times for chest pain in the past he has had 2 or 3 cardiac caths this year showed no acute blockage he states that he started having chest pain denies a severe pain in the center of his chest rated an 8 out of 10 he denies any worsening improving factors he has had no nausea no diaphoresis no shortness of breath. He is having active pain currently. Associated symptoms: Deny abdominal pain, dyspnea, fever(s), nausea or vomiting Review of Systems Const: Denies: fever(s), chills, body aches or change in appetite Eyes: Denies: blurry vision or eye discomfort ENMT: Denies: throat pain or dental pain Card: Reports: chest pain Resp: Denies: dyspnea GI: Denies: abdominal pain, nausea, vomiting or diarrhea : Denies: dysuria Musc: Denies: neck pain or back pain Skin/Breast: Denies: rash Neuro: Denies: headache(s) Psych: Denies: depression Melquiades/Lymph: Denies: easy bruising All/Imm: Denies: urticaria PFSH ED PFSH: Medical History Angina pectoris, unstable Benign essential HTN CAD (coronary artery disease) 9stents Chest pain CVA (cerebrovascular accident) Diabetes Dyslipidemia (high LDL; low HDL) Former smoker HTN (hypertension) Surgical History History of appendectomy Family History Other No pertinent family history Social History Smoking and tobacco status: former smoker Alcohol intake: never Housing: House Physical Exam Const: COMMON NORMALS: patient oriented x3 HENMT: COMMON NORMALS: normocephalic and atraumatic HEAD & SCALP: normocephalic and atraumatic Eye: COMMON NORMALS: Equal, round and reactive pupils present and EOMs intact bilaterally PUPIL: Yes Equal, round and reactive pupils present Neck/C-Spine: COMMON NORMALS: full ROM and supple Chest: COMMONS NORMALS: normal inspection of the chest and normal palpation of entire chest wall Resp: COMMON NORMALS: normal respiratory effort, No retractions, No use of accessory muscles and clear to auscultation bilaterally AUSCULTATION: clear to auscultation bilaterally Cardio: COMMON NORMALS: regular rate, regular rhythm and No murmurs present (Cardio) RATE: regular rate RHYTHM: regular rhythm GI: COMMON NORMALS: Normal to inspection, nondistended, normoactive bowel sounds present, Soft to palpation, non-tender and no masses PALPATION: Yes Soft to palpation Extremity: COMMON NORMALS: normal to inspection and full ROM Neuro: COMMON NORMALS: patient oriented x3, moves all extremities and no focal motor deficits Psych: COMMON NORMALS: mental status grossly normal, Normal thought process present and cooperative THOUGHT PROCESS: Normal thought process present Skin: COMMON NORMALS: no rashes or lesions noted and no wounds GENERAL SKIN EXAM: no rashes or lesions noted Course Vital Signs: Vital signs: Vital Signs Temperature 97.8 F 03/26/22 23:36 Pulse Rate 75 03/27/22 01:29 Respiratory Rate 14 03/27/22 01:29 Blood Pressure 163/80 03/27/22 01:29 Pulse Oximetry 99 03/27/22 01:29 Oxygen Delivery Me thod 03/27/22 01:29 MDM - Chest Pain Medical Decision Making Patient presents for chest pain his troponin is elevated consistent with an NSTEMI have reviewed the EKGs and his troponins with golf club head inspector and adjuster Dr. Fitzgerald he has no signs of ST elevation [place] did give him Lovenox will admit to the cardiac stepdown at this time. Lab Data : 03/26/22 23:49 03/26/22 23:49 Laboratory Results WBC 7.2 10^3/uL (4.0-10.0) 03/26/22 23:49 RBC 4.94 10^6/uL (4.1-5.3) 03/26/22 23:49 Hgb 10.9 g/dL (11.7-16.6) L 03/26/22 23:49 Hct 35.3 % (42.0-52.0) L 03/26/22 23:49 MCV 71.5 fl (80-94) L 03/26/22 23:49 MCH 22.1 pg (28.0-34.0) L 03/26/22 23:49 MCHC 30.9 g/dL (30.0-36.0) 03/26/22 23:49 RDW 17.3 % (12.1-15.1) H 03/26/22 23:49 Plt Count 269 10^3/cmm (130-400) 03/26/22 23:49 MPV 11.6 fL (7.4-10.4) H 03/26/22 23:49 Neut % (Auto) 52.5 % 03/26/22 23:49 Lymph % (Auto) 28.7 % 03/26/22 23:49 Cobb % (Auto) 13.9 % 03/26/22 23:49 Eos % (Auto) 3.9 % 03/26/22 23:49 Baso % (Auto) 0.7 % 03/26/22 23:49 Neut # (Auto) 3.77 10^3/uL (1.8-7.7) 03/26/22 23:49 Lymph # (Auto) 2.1 10^3/uL (0.8-4.8) 03/26/22 23:49 Cobb # (Auto) 1.0 10^3/uL (0.2-0.9) H 03/26/22 23:49 Eos # (Auto) 0.3 10^3/uL (0.0-0.8) 03/26/22 23:49 Baso # (Auto) 0.1 10^3/uL (0.0-0.1) 03/26/22 23:49 Nucleated RBC % (auto) 0 % 03/26/22 23:49 Nucleated RBCs # 0.0 /100WBC 03/26/22 23:49 Sodium 145 mmol/L (136-145) 03/26/22 23:49 Potassium 4.7 mmol/L (3.5-5.1) 03/26/22 23:49 Chloride 108 mmol/L (98-107) H 03/26/22 23:49 Carbon Dioxide 25 mmol/L (22-29) 03/26/22 23:49 Anion Gap 16.7 (5-19) 03/26/22 23:49 BUN 13 mg/dL (6-20) 03/26/22 23:49 Creatinine 1.2 mg/dL (0.7-1.2) 03/26/22 23:49 GFR Calculation 65.8 mL/min (90-130) L 03/26/22 23:49 Glucose 103 mg/dL (65-115) 03/26/22 23:49 Calculated Osmolality 300 mOsm/kg (285-295) H 03/26/22 23:49 Calcium 9.2 mg/dL (8.5-10.5) 03/26/22 23:49 Total Bilirubin 0.2 mg/dL (0.15-1.2) 03/26/22 23:49 AST 13 U/L (0-40) 03/26/22 23:49 ALT 6 U/L (0-41) 03/26/22 23:49 Alkaline Phosphatase 87 U/L (40-130) 03/26/22 23:49 Troponin T Baseline 161 ng/L (0-15) H* 03/26/22 23:49 Total Protein 7.1 g/dL (6.6-8.7) 03/26/22 23:49 Albumin 4.5 g/dL (3.5-5.2) 03/26/22 23:49 Globulin 2.6 g/dL (1.3-4.6) 03/26/22 23:49 EKG Data EKG 1: I personally reviewed and interpreted this EKG as follows: EKG interpretation date: 03/26/22 EKG interpretation time: 23:44 Interpretation: nsr hr [address] or t wave abnormalities qrs 81 qtc 368 Discharge Plan Discharge Patient Disposition: Admitted As Inpatient Admit Provider: Alcira Vines Clinical Impression: Non-ST elevation [place] (NSTEMI) Condition: Stable Coding Level of Care Code ED Supervisor Channel Process for Chg Fwd Exam Comprehensive
--- NOTE | 2022-03-27 00:36 | ECG_ITS ---
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 Measurements Intervals [place] Rate: 85 P: 59 IN: 147 QRS: 69 QRSD: 87 T: 72 QT: 336 QTc: 400 Interpretive Statements SINUS RHYTHM MODERATE VOLTAGE CRITERIA FOR LVH, CONSIDER NORMAL VARIANT [MEETS CRITERIA IN ONE OF: R(aVL), S(V1), R(V5), R(V5/V6)+S(V1)] Compared to ECG 03/26/2022 23:44:28 Myocardial infarct finding no longer present Electronically Signed On 03-27-2022 14:50:18 CDT by Heath Pacheco M.D. [email or web address] ([email or web address] [email or web address]-[email or web address].[email or web address]/store/OM/[id number]
[2022-03-27] MEDS: enoxaparin 80 mg/0.8 mL Syringe 60 MG SUBCUT (00:43)
[2022-03-27] MEDS: nitroglycerin 0.4 mg sublingual Tablet SUBLINGUAL (00:43)
--- NOTE | 2022-03-27 01:20 | ECG_ITS ---
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 Measurements Intervals [place] Rate: 81 P: 67 [place]: 136 QRS: 74 QRSD: 80 T: 70 QT: 306 QTc: 356 Interpretive Statements SINUS RHYTHM MODERATE VOLTAGE CRITERIA FOR LVH, CONSIDER NORMAL VARIANT [MEETS CRITERIA IN ONE OF: R(aVL), S(V1), R(V5), R(V5/V6)+S(V1)] Compared to ECG 03/27/2022 00:36:40 No significant changes Electronically Signed On 03-27-2022 14:50:11 CDT by Heath Pacheco M.D. [email or web address]/store/[id number]
[2022-03-27] MEDS: HYDROmorphone 1 mg/mL INJ 1 mL 0.5 MG IVP ×4 (01:28→20:14)
[2022-03-27 01:54] LABS: Troponin 5 2HR 217.3 ng/L (0-15)
[2022-03-27 01:56] LABS: Troponin 5 2HR Delta 56.3 ABS# (0-10)
--- NOTE | 2022-03-27 05:02 | PM.HP ---
Providers/Chief Complaint Admitting Physician: Alcira Vines MD Primary Care Provider: Cecily Miller MD Chief Complaint: cp History of Present Illness Alonso June is a 46 year old male Alonso June is a 46 year old male with a past medical history of multiple hospital admissions for chest pain, recent hospitalization for chest pain December 2021 with coronary angiogram without any evidence of obstructive CAD, history of multiple stents, he has had multiple coronary angiograms in the last year, he has had multiple hospitalizations for strokelike symptoms, has received tPA on multiple occasions. He presented to the emergency room with chief complains of chest pain. States that it is located in the center of the chest and left side. Radiating into his neck and left arm. No dyspnea or palpitations. He presented to the emergency room last night with chief complains of chest pain EKG does not show any acute ST-T wave changes. Baseline troponin returned at 161. 2-hour troponin increased to 217 with a 2-hour delta at 56.3. He is being admitted with in view of NSTEMI Review of Systems General: Reports: 10 or more systems reviewed and unremarkable except in HPI and below Const: Denies: fever(s), chills or body aches Eyes: Denies: change in vision, blurry vision or photophobia ENMT: Reports: hoarseness; Denies: throat pain, enlarged tonsils, odynophagia or nasal congestion Card: Denies: chest pain, palpitations, irregular heart rhythm, edema, swelling of feet/ankles, lightheadedness, pre-syncope, dyspnea on exertion or orthopnea Resp: Denies: dyspnea, productive cough, non-productive cough, wheezing, stridor, pain on inspiration, change in phlegm color, hemoptysis or chest congestion GI: Denies: abdominal pain, nausea, vomiting, hematemesis, coffee ground emesis, dysphagia, heartburn, diarrhea, constipation, GI cramping, change in stool character, hematochezia or melena : Denies: flank pain, dysuria, urinary frequency, urinary urgency, urinary hesitancy or hematuria Musc: Denies: neck pain, back pain, extremity pain, joint swelling, joint warmth or deformity Neuro: Denies: headache(s), numbness in extremities, weakness in extremities, sensory changes, difficulty walking, frequent falls, dizziness, vertigo, behavioral changes, Slurred speech present or seizure-like activity Psych: Denies: anxiety, depression, suicidal ideation or homicidal ideation Endo: Denies: polyuria, polydipsia, tired all the time, cold intolerance or hot flashes Melquiades/Lymph: Denies: easy bruising or easy bleeding Medications/Allergies Home Medications Medication Instructions Recorded Confirmed Last Taken Type ubyhtajyxf-fiffbbfarnsfv-olijfhnw 2 tab PO BID PRN Migraine Headache 09/03/21 03/27/22 Unknown History 50 mg-325 mg-40 mg tablet albuterol sulfate 90 mcg/actuation 2 puff inhalation Q4H PRN 10/01/21 03/27/22 03/26/22 Rx aerosol inhaler (ProAir HFA) Shortness Of Breath 1 day #30 grams aspirin 81 mg tablet,delayed 81 mg PO QAM 30 days #30 tabs 10/11/21 03/27/22 03/26/22 08:00 Rx release atorvastatin 40 mg tablet 40 mg PO BEDTIME 30 days #30 tabs 10/11/21 03/27/22 03/26/22 20:00 Rx escitalopram oxalate 10 mg tablet 10 mg PO DAILY 30 days #30 tabs 10/11/21 03/27/22 01/23/22 Rx nitroglycerin 0.4 mg sublingual 0.4 mg sublingual Q5M PRN Chest 10/11/21 03/27/22 03/26/22 Rx tablet (Nitrostat) Pain 30 days #60 tabs hydroxyzine HCl 25 mg tablet 25 mg PO BID PRN nausea and 01/02/22 03/27/22 Unknown History vomiting insulin aspart U-100 100 unit/mL See Rx Instructions .Route 01/03/22 03/27/22 Unknown Rx (3 mL) subcutaneous pen (Novolog .COMPLEX #15 mL Flexpen U-100 Insulin aspart) insulin glargine 100 unit/mL (3 5 unit (0.05 mL) SUBCUT BEDTIME 01/03/22 03/27/22 01/22/22 Rx mL) subcutaneous pen (Lantus #15 mL Solostar U-100 Insulin) carvedilol 3.125 mg tablet 3.125 mg PO Q12H 01/23/22 03/27/22 03/26/22 20:00 History ondansetron HCl 4 mg tablet 4 mg PO Q6H PRN nausea and 01/23/22 03/27/22 03/26/22 12:00 Rx vomiting #20 tabs acetaminophen 500 mg tablet 500 mg PO Q6H PRN pain #30 tabs 02/06/22 03/27/22 Unknown Rx cyclobenzaprine 10 mg tablet 10 mg PO BID PRN muscle spasm #20 02/06/22 03/27/22 Unknown Rx tabs clopidogrel 75 mg tablet (Plavix) 75 mg PO DAILY #30 tabs 02/14/22 03/27/22 03/26/22 08:00 Rx baclofen 10 mg tablet 10 mg PO Q8H PRN muscle spasm #10 03/22/22 03/27/22 Unknown Rx tabs isosorbide mononitrate 60 mg 60 mg PO DAILY 03/27/22 03/27/22 03/26/22 08:00 History tablet,extended release 24 hr metoclopramide HCl 10 mg tablet 10 mg PO QID PRN Nausea 03/27/22 03/27/22 03/26/22 14:00 History (Reglan) quetiapine 50 mg tablet 50 mg PO BEDTIME 03/27/22 03/27/22 03/26/22 20:00 History ranolazine 500 mg tablet,extended 500 mg PO Q12H 03/27/22 03/27/22 03/26/22 20:00 History release,12 hr Allergies Allergy/AdvReac Type Severity Reaction Status Date / Time butorphanol [From Stadol] Allergy ALGY-Difficulty Verified 01/22/22 13:01 Breathing diphenhydramine Allergy ADR-Itching Verified 01/22/22 13:01 [From Benadryl] Iodinated Contrast Media Allergy Unresponsiv Verified 01/22/22 13:01 e iodine Allergy Unresponsiv Verified 01/22/22 13:01 e ketorolac [From Toradol] Allergy ALGY-Difficulty Verified 01/22/22 13:01 Breathing nalbuphine [From Nubain] Allergy Unknown Verified 01/22/22 13:01 Penicillins Allergy Unknown Verified 01/22/22 13:01 promethazine [From Phenergan] Allergy Unknown Verified 01/22/22 13:01 PFSH Acute PFSH: Medical History Angina pectoris, unstable Benign essential HTN CAD (coronary artery disease) 9stents Chest pain CVA (cerebrovascular accident) Diabetes Dyslipidemia (high LDL; low HDL) Former smoker HTN (hypertension) Surgical History History of appendectomy Family History Other No pertinent family history Social History Smoking and tobacco status: former smoker Alcohol intake: never Housing: House Vitals/I&O/Wt Last Vital Signs Temp 98.0 F 03/27/22 03:03 Pulse 70 03/27/22 03:03 Resp 18 03/27/22 03:03 BP 144/73 03/27/22 03:03 Pulse Ox 97 03/27/22 03:03 O2 Del Method 03/27/22 03:02 Weight last 48 hrs Weight 64.319 kg Weight 62.641 kg Weight 58.967 kg Physical Exam Narrative: General: No acute distress, AO x3 HEENT: PERRLA, pupils bilaterally equal and reactive, pallors not present Chest: Normal vesicular breath sounds, no added sounds, equal good air entry bilaterally CVS: S1-S2 regular, no murmurs, no tachycardia, no gallops, no rubs Abdomen: Soft, nontender, no organomegaly, bowel sounds present Neuro: No focal deficits, no facial deformity, AO x3, power 5/5 in all limbs Data : 03/26/22 23:49 03/26/22 23:49 A&P Assessment and plan (1) Non-ST elevation [place] (NSTEMI): Presenting today with chest pain, no acute ST-T wave changes on EKG, however elevated baseline and 2-hour troponins with a significant delta of 56.3. Findings suggestive of NSTEMI. Start Lovenox 1 mg/kg every 12 hours. Continue aspirin 81 mg daily, Plavix 75 mg p.o. daily, carvedilol 3.125 mg p.o. every 12 hours. nitro bid 0.5 inch every 6 hrs topically prn morphine for pain Consult cardiology to evaluate for angiogram. Last echocardiogram from December 2021 with LVEF of 55 to 60%. Plan Continue home medications including hydroxyzine, quetiapine, Attestations Medical Necessity Statement*: >2midnight admission anticipated for NSTEMI Coding Level of Care Code Acute Regional Marketing Manager for Marcelino Stephen Diagnoses Non-ST elevation [place] (NSTEMI) I21.4
[2022-03-27] MEDS: ondansetron 2 mg/ML SDV 2 mL 4 MG IVP ×2 (05:13→15:50)
[2022-03-27] MEDS: ranolazine (12HR) 500 mg Tablet PO ×2 (05:14→17:04)
[2022-03-27] MEDS: nitroglycerin 1 gm/inch oint Pkt 1 INCH TOPICAL (05:14)
[2022-03-27] MEDS: hyDROXYzine 25 mg Capsule PO (05:14)
[2022-03-27] MEDS: aspirin 81 mg EC Tablet PO (05:14)
[2022-03-27] MEDS: carvedilol 3.125 mg Tablet PO ×2 (05:14→17:04)
[2022-03-27 06:20] LABS: Glucose Point of Care 99 mg/dL (70-110)
[2022-03-27 06:51] LABS: Troponin 5 6HR 260.9 ng/L (0-15); Troponin 5 6HR Delta 99.9 ng/L (0-12)
--- NOTE | 2022-03-27 08:38 | P.CONIM_ITS ---
Providers/Reason For Consult Consulting Physician/Specialty*: Heath Pacheco MD/ Cardiology Reason for Consult*: NSTEMI Requesting Physician: Dr Jaime Attending Physician: Maximo Pickett MD Primary Care Provider: Cecily Miller MD History of Present Illness History of Present Illness Alonso June is a 46 year old male with past medical history of coronary artery disease status post multiple stents, multiple procedures in the past for unstable angina/NSTEMI has presented to the hospital with several hours of chest pain symptoms. Initial troponin was 161 and has trended up to 260 at 6 hours. He continues having chest pain symptoms. Describes typical substernal chest pain. Says it is radiating to the jaw and arms. No ischemic change on EKG Review of Systems Narrative: GENERAL: Patient is alert, awake and oriented x3. [] NECK: No jugular vein distension. [] HEENT: No cyanosis. No icterus. No pallor. [] HEART: Regular S1 and S2. No murmur, rub or gallop. [] LUNGS: Clear to auscultate bilaterally. [] ABDOMEN: Soft, nontender and nondistended. Positive bowel sounds. No guarding, rebound or tenderness. [] CENTRAL NERVOUS SYSTEM: Grossly nonfocal. [] EXTREMITIES: Lower extremities with 1+ edema bilaterally. Pulses palpable in the lower extremities, both dorsalis pedis and posterior tibial. [] Medications/Allergies Home Medications Medication Instructions Recorded Confirmed Last Taken Type [id number]-hmyttagboorrz-rdsbppcg 2 tab PO BID PRN Migraine Headache 09/03/21 03/27/22 Unknown History 50 mg-325 mg-40 mg tablet albuterol sulfate 90 mcg/actuation 2 puff inhalation Q4H PRN 10/01/21 03/27/22 03/26/22 Rx aerosol inhaler (ProAir HFA) Shortness Of Breath 1 day #30 grams aspirin 81 mg tablet,delayed 81 mg PO QAM 30 days #30 tabs 10/11/21 03/27/22 03/26/22 08:00 Rx release atorvastatin 40 mg tablet 40 mg PO BEDTIME 30 days #30 tabs 10/11/21 03/27/22 03/26/22 20:00 Rx escitalopram oxalate 10 mg tablet 10 mg PO DAILY 30 days #30 tabs 10/11/21 03/27/22 01/23/22 Rx nitroglycerin 0.4 mg sublingual 0.4 mg sublingual Q5M PRN Chest 10/11/21 03/27/22 03/26/22 Rx tablet (Nitrostat) Pain 30 days #60 tabs hydroxyzine HCl 25 mg tablet 25 mg PO BID PRN nausea and 01/02/22 03/27/22 Unknown History vomiting insulin aspart U-100 100 unit/mL See Rx Instructions .Route 01/03/22 03/27/22 Unknown Rx (3 mL) subcutaneous pen (Novolog .COMPLEX #15 mL Flexpen U-100 Insulin aspart) insulin glargine 100 unit/mL (3 5 unit (0.05 mL) SUBCUT BEDTIME 01/03/22 03/27/22 01/22/22 Rx mL) subcutaneous pen (Lantus #15 mL Solostar U-100 Insulin) carvedilol 3.125 mg tablet 3.125 mg PO Q12H 01/23/22 03/27/22 03/26/22 20:00 History ondansetron HCl 4 mg tablet 4 mg PO Q6H PRN nausea and 01/23/22 03/27/22 03/26/22 12:00 Rx vomiting #20 tabs acetaminophen 500 mg tablet 500 mg PO Q6H PRN pain #30 tabs 02/06/22 03/27/22 Unknown Rx cyclobenzaprine 10 mg tablet 10 mg PO BID PRN muscle spasm #20 02/06/22 03/27/22 Unknown Rx tabs clopidogrel 75 mg tablet (Plavix) 75 mg PO DAILY #30 tabs 02/14/22 03/27/22 03/26/22 08:00 Rx baclofen 10 mg tablet 10 mg PO Q8H PRN muscle spasm #10 03/22/22 03/27/22 Unknown Rx tabs isosorbide mononitrate 60 mg 60 mg PO DAILY 03/27/22 03/27/22 03/26/22 08:00 History tablet,extended release 24 hr metoclopramide HCl 10 mg tablet 10 mg PO QID PRN Nausea 03/27/22 03/27/22 03/26/22 14:00 History (Reglan) quetiapine 50 mg tablet 50 mg PO BEDTIME 03/27/22 03/27/22 03/26/22 20:00 History ranolazine 500 mg tablet,extended 500 mg PO Q12H 03/27/22 03/27/22 03/26/22 20:00 History release,12 hr Allergies Allergy/AdvReac Type Severity Reaction Status Date / Time butorphanol [From Stadol] Allergy ALGY-Difficulty Verified 01/22/22 13:01 Breathing diphenhydramine Allergy ADR-Itching Verified 01/22/22 13:01 [From Benadryl] Iodinated Contrast Media Allergy Unresponsiv Verified 01/22/22 13:01 e iodine Allergy Unresponsiv Verified 01/22/22 13:01 e ketorolac [From Toradol] Allergy ALGY-Difficulty Verified 01/22/22 13:01 Breathing nalbuphine [From Nubain] Allergy Unknown Verified 01/22/22 13:01 Penicillins Allergy Unknown Verified 01/22/22 13:01 promethazine [From Phenergan] Allergy Unknown Verified 01/22/22 13:01 Current Medications Generic Name Dose Route Start Last Admin Trade Name Freq PRN Reason Stop Dose Admin Aspirin 81 mg 03/27/22 06:00 03/27/22 05:14 Aspirin 81 Mg Ec Tablet PO 81 mg QAM AMBROCIO Administration Carvedilol 3.125 mg 03/27/22 05:00 03/27/22 05:14 Carvedilol 3.125 Mg Tablet PO 3.125 mg Q12H AMBROCIO Administration Hydromorphone HCl 0.5 mg 03/27/22 04:57 03/27/22 05:13 Hydromorphone 1 Mg/Ml Inj 1 Ml IVP 0.5 mg Q4H PRN Administration chest pain Hydroxyzine Pamoate 25 mg 03/27/22 05:06 03/27/22 05:14 Hydroxyzine 25 Mg Capsule PO 25 mg BID PRN Administration nausea and vomiting Nitroglycerin 0.4 mg 03/27/22 00:21 03/27/22 00:43 Nitroglycerin 0.4 Mg Sublingual Tablet SUBLINGUAL 1 tab Q5M PRN Administration CHEST PAIN Nitroglycerin 1 inch 03/27/22 05:00 03/27/22 05:14 Nitroglycerin 1 Gm/Inch Oint Pkt TOPICAL 1 inch Q6H AMBROCIO Administration Ondansetron HCl 4 mg 03/27/22 04:57 03/27/22 05:13 Ondansetron 2 Mg/Ml Sdv 2 Ml IVP 4 mg Q8H PRN Administration vomiting, or N/V if npo Ranolazine 500 mg 03/27/22 05:00 03/27/22 05:14 Ranolazine (12hr) 500 Mg Tablet PO 500 mg Q12H AMBROCIO Administration PFSH Acute PFSH: Medical History Angina pectoris, unstable Benign essential HTN CAD (coronary artery disease) 9stents Chest pain CVA (cerebrovascular accident) Diabetes Dyslipidemia (high LDL; low HDL) Former smoker HTN (hypertension) Surgical History History of appendectomy Family History Other No pertinent family history Social History Smoking and tobacco status: former smoker Alcohol intake: never Housing: House Vitals/I&O/Wt Last Vital Signs Temp 98.0 F 03/27/22 07:58 Pulse 75 03/27/22 08:00 Resp 14 03/27/22 07:58 BP 131/69 03/27/22 07:58 Pulse Ox 99 03/27/22 08:00 O2 Del Method 03/27/22 08:00 O2 Flow Rate 2 03/27/22 08:00 03/26/22 03/27/22 03/27/22 22:59 06:59 14:59 Intake Total 120 / 120 Balance 120 / 120 Weight last 48 hrs Weight 141 lb 12.8 oz Weight 138 lb 1.6 oz Weight 130 lb Physical Exam Narrative: GENERAL: Patient is alert, awake and oriented x3. [] NECK: No jugular vein distension. [] HEENT: No cyanosis. No icterus. No pallor. [] HEART: Regular S1 and S2. No murmur, rub or gallop. [] LUNGS: Clear to auscultate bilaterally. [] ABDOMEN: Soft, nontender and nondistended. Positive bowel sounds. No guarding, rebound or tenderness. [] CENTRAL NERVOUS SYSTEM: Grossly nonfocal. [] EXTREMITIES: Lower extremities with no edema bilaterally. Pulses palpable in the lower extremities, both dorsalis pedis and posterior tibial. [] Data : 03/26/22 23:49 03/26/22 23:49 A&P Assessment and plan (1) Non-ST elevation [place] (NSTEMI): (2) CAD (coronary artery disease): (3) Bipolar disorder without psychotic features: (4) Chest pain: Qualifiers: Chest pain type: other chest pain Qualified Code(s): R07.89 - Other chest pain Plan Patient has presented with typical chest pain symptoms and troponin elevation. He has multiple prior procedures and has prior PCI's. We will proceed with coronary angiogram with possible percutaneous coronary intervention. Order limited echocardiogram Continue aspirin and Plavix. N.p.o. for now. Continue anticoagulation Thank you for involving us with care of this patient. We will continue to follow. Please call with questions. Consult Attestations Medical Necessity Statement: Care expected to cross 2 midnights Coding Level of Care Code Acute Vice President Investor Relations for Marcelino Stephen Diagnoses Non-ST elevation NC (NSTEMI) I21.4 CAD (coronary artery disease) I25.10 Bipolar disorder without psychotic features F31.9 Chest pain R07.89 Chest pain type: other chest pain
[2022-03-27] MEDS: escitalopram 10 mg Tablet PO (08:42)
[2022-03-27] MEDS: clopidogrel 75 mg Tablet PO (08:42)
[2022-03-27] MEDS: pantoprazole DR 40 mg Tablet PO (08:42)
--- NOTE | 2022-03-27 09:25 | USCV_ITS ---
Alonso June Age: 46 Gender: M : 1975 Exam Date: 03/27/2022 15:13 Ordering Phys: Maximo Pickett MD Technologist: ALOK [place] [facility] [place]: RWMA, EF BP: 131 / 69 HR: 71 Rhythm: Sinus Technical Quality: Adequate MEASUREMENTS (Male / Female) Normal Values 2D ECHO LV Diastolic Diameter PLAX 4.2 cm 4.2 - 5.9 / 3.9 - 5.3 cm LV Systolic Diameter PLAX 3.0 cm IVS Diastolic Thickness 1.1 cm 0.6 - 1.0 / 0.6 - 0.9 cm IVS Systolic Thickness 1.3 cm LVPW Diastolic Thickness 1.5 cm 0.6 - 1.0 / 0.6 - 0.9 cm LVPW Systolic Thickness 1.8 cm LVOT Diameter 2.0 cm LV Ejection Fraction 2D Teich 55.0 % LV Ejection Fraction MOD 2C 60.4 % LV Ejection Fraction 2C AL 64.7 % LA Diameter 2.4 cm LA Width 2.9 cm LA Height 4.0 cm RA Width 4.4 cm RA Height 4.2 cm Aorta at Sinotubular Diameter 2.1 cm IVC Diameter 1.9 cm M-MODE Aortic Annulus Diameter 3.1 cm LA Ao Ratio MM 0.7 DOPPLER Right Atrial Pressure 3.0 mmHg FINDINGS Left Ventricle Normal left ventricular size and systolic function, EF 60 %. No regional wall motion abnormalities. Right Ventricle Normal right ventricular size and systolic function. Right Atrium Mildly increased right atrial size. Left Atrium The left atrium is normal in size. Mitral Valve No gross abnormalities noted Aortic Valve No gross abnormalities noted Tricuspid Valve No gross abnormalities noted Pulmonic Valve Pulmonic valve not well visualized. Pericardium Normal pericardium without effusion. Aorta Normal ascending aorta dimension. IVC Normal inferior vena cava. CONCLUSIONS Normal left ventricular size and systolic function, EF 60 %. No regional wall motion abnormalities. Mildly increased right atrial size. No significant morphologic abnormalities in the valves No intracardiac masses No pericardial effusion Compared to the study from 01/03/2022, there may not be significant change, in the 2D findings Dr Anatoliy Jean Baptiste MD [facility] (Electronically Signed) Final Date: 27 March 2022 18:31 S
[2022-03-27] MEDS: nitroglycerin drip 50 MG/250 ML PREMIX IV (09:53)
[2022-03-27] MEDS: nicotine 14 mg Patch 1 PATCH TRANSDERMA (10:47)
[2022-03-27 10:51] LABS: Add Urine Microscopic? NO; Charge for UA Resulting for Rev
[2022-03-27 10:56] LABS: Bilirubin Urine Neg (Negative); Blood Urine Neg (Negative); Glucose Urine UA Norm (Normal); Ketones Urine Negative (Negative); Leukocyte Esterase Urine Negative (Negative); Nitrate Urine Negative (Negative); Protein Urine Neg (Negative); Urine Appearance Clear (CLEAR); Urine Color Yellow (Yellow); Urobilinogen Urine Neg (Negative); pH Urine 6 (5-7)
[2022-03-27 10:59] LABS: Glucose Point of Care 91 mg/dL (70-110)
[2022-03-27 11:05] LABS: Amphetamines Screen Urine Negative (Negative); Barbiturates Screen Urine Negative (Negative); Benzodiazepines Screen Urine Negative (Negative); Cocaine Screen Urine Negative (Negative); Opiate Screen Urine Positive (Negative); PCP Screen Urine Negative (Negative); THC Screen Urine Negative (Negative)
[2022-03-27 11:15] LABS: Vitamin B12 516 pg/mL (232-1245)
[2022-03-27] MEDS: sodium chloride 0.9% 1,000 ML 50 ML IV (11:34)
--- NOTE | 2022-03-27 12:00 | XACV_ITS ---
Exam Room: [facility] Ht: 168 cm Wt: 64 kg BSA: 1.73 m2 Gender: Male : 1975 Any Known Allergies: Other Exam Priority: Routine Procedure(s): Procedure Description: Diagnostic procedure Procedure Description: Left Heart Catheterization Procedure Description: Left ventriculography Procedure Description: Coronary Angiography Diagnostic Cath Status: Urgent Diagnostic Findings * Patent prior stents seen in left main, LAD and diagonal artery. * No significant stenosis in these arteries Patent left circumflex artery No significant stenosis in RCA. Patent PDA stent. * Coronary angiography shows right dominance. Conclusions 1. Patent prior stents seen in left main, LAD and diagonal artery. 2. No significant stenosis in these arteries Patent left circumflex artery No significant stenosis in RCA. Patent PDA stent. 3. Normal left ventricular systolic function. Ejection fraction of 60%. Recommendations * Aggressive risk factor modification. * Outpatient cardiology follow-up in 4 weeks. * Symptoms can be related to vasospasms. Diagnostic RX Recommendation: medical therapy and/or counseling Ventriculography Ejection Fraction: 60.0 % Pressures Phase:Rest AO : 115 / 54 ( 76 ) @ 1:34:00 PM 125 / 82 ( 103 ) @ 1:42:00 PM 163 / 65 ( 108 ) @ 1:47:00 PM 164 / 67 ( 105 ) @ 1:47:00 PM LV : 165 / -19 / 26 @ 1:46:00 PM 168 / -23 / 35 @ 1:47:00 PM 180 / -20 / 51 @ 1:47:00 PM Valves Phase:DefaultPhase AV : 17.0 @ 12:56:51 PM AV Mean Gradient: 22.0 @ 12:56:51 PM Clinical Evaluation EBL: 5mL-10mL Procedural Details Procedure Consent Obtained. Admit Source: In Patient. Pre-Procedure Time Out. Identified patient by full name and date of as verbalized by the patient/guarantor. Does the consent match the physician's order: Yes. Accurate & Complete Informed Consent: Yes. Inpatient/Outpatient History & Physical on Chart: Yes. If H&P is completed, is and addenduem needed: N/A; If yes, is the addendum complete: N/A. Visualize and Verify Site with Patient/Guarantor: N/A. Relevant Radiology Images available: N/A. The risks, benefits, and alternatives of sedation and/or procedure were discussed by physician. The patient agrees to continue. Procedure started. [facility] Clinical Fraility Score: 3: Managing Well. 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 Chest Pain Symptom Assessment: Typical Angina Symptoms. Correct patient, site and procedure confirmed by cath team. Current diagnosis: NSTEMI. PERRLA. 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 Lungs clear x 5 lobes. IV Site on Arrival: 20 gauge in the left anticubital. IV Fluids: 0.9% NaCl at 75ml/hr. 0 mL infused prior to manager labor relations. Pre Procedural Pulses: bilateral posterior tibial was 2+. Pre Procedural Pulses: bilateral dorsalis pedis was 3+. Pre Procedural Pulses: bilateral radial was 3+. Oxygen started at 2liters/min via nasal canula. right groin was prepped with chloroprep then draped in the usual sterile fashion. Physician notified. Baseline sample Acquired. HR: 60 BPM. Physician arrived. Physician scrubbed in. Immediate Pre-Procedure Time Out. Correct Patient: Yes; Correct Procedure: Yes; Correct Site: Yes; Correct Patient Position: Yes; Correct Supplies: Yes; Dried Flammable Prep: Yes; Blood Products Available: No;. Lidocaine 1% infiltrated to the right groin. Arterial access obtained with micropuncture set. A 5 ecuadorean JL4 catheter in over exchange wire. Wire out. Multiple views taken of left coronary artery. Catheter removed over the exchange wire. A 5 ecuadorean JR4 catheter in over wire. Multiple views taken of right coronary artery. Catheter removed over the exchange wire. A 5 ecuadorean Angled Pig catheter in over wire. EDP Sample taken: LV 165/-20,26; HR: 98 BPM; SpO2: 98%. LV gram performed in [place] @ 10 mL/second for a total of 30 mL. EDP Sample taken: LV 168/-24,35; HR: 106 BPM; SpO2: 94%. Pullback taken: LV 180/-21,51; AO 163/65(108); Mean: 22mmHg, Peak to Peak: 17mmHg, SEP: 29sec/min; HR: 102 BPM; SpO2: 95%. Catheter removed over the exchange wire. Wire out. Post Procedure: Pulses reassessed and unchanged. PERRLA. 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 No VTE prophylaxis required. Medication's Wasted: Lidocaine 1% = 3 mL. Medication's Wasted: Heparin = 1000 units. Medication's Wasted: Other = Fentanyl 25 mcg. Total IV fluids: 50 mL. Post-op diagnosis: Non-obstructive CAD, patent stents. Complications: None. Estimated blood loss: 5mL-10mL. Responsiveness - Normal response to verbal stimuli; alert and oriented, PERRLA. Airway - Unaffected, no intervention required; spontaneous ventilation. Circulation: W/N/L, pulses unchanged. Nausea/Vomiting: N/A. Procedure completed. Patient transferred by bed to [facility]. Vital chart was stopped. A Suture was successful obtaining hemostatsis at the Right Femoral artery insertion site. Sheath(s) sutured into position with 2-0 silk and sterile 4x4's and Op-site applied over the site. No oozing or signs and symptoms of hematoma noted. Access Site Site: Right Femoral artery Sheath Size: 6 Fr Hemostasis Method: Suture Hemostasis Success: Successful Procedure Medications Start: 12:25 PM Stop: 12:25 PM Medication: Solu-Medrol (methylprednisolone) Amount: 125 mg Route: I.V. Start: 12:27 PM Stop: 12:27 PM Medication: Versed Amount: 1 mg Route: I.V. Start: 12:27 PM Stop: 12:27 PM Medication: Fentanyl Amount: 50 mcg Route: I.V. Start: 12:30 PM Stop: 12:30 PM Medication: Versed 1 mg and Fentanyl 25 mcg Route: I.V. I, the attending physician, have reviewed and verified all procedure medications. Yes, all medications given per verbal order History/Risk Factors Hypertension: Yes Dyslipidemia: Yes Peripheral Arterial Disease (PAD): No Myocardial Infarction (NH): No Obesity: No Tobacco Use: Former Prior Interventions PCI: Yes CABG: No Valve Surgery: No Report Signatures Finalized by Heath Pacheco MD on 03/28/2022 11:02 PM
--- NOTE | 2022-03-27 12:07 | W.PM.OPSUD ---
Surgery/Procedure H&P Update DATE OF PROCEDURE: March 27, 2022 DATE H&P PERFORMED: 03/27/22 H&P UPDATE INFORMATION: I have reviewed H&P completed within last 30 days, I have examined patient prior to procedure and No changes to prior documentation PREOP DIAGNOSIS: NSTEMI PRIMARY INDICATION FOR PROCEDURE: NSTEMI PLANNED PROCEDURE: Left heart cath with possible percutaneous coronary intervention PATIENT REASSESSED PRIOR TO SEDATION, WITH NO CHANGE NOTED: Yes PHYSICAL EXAM: alert, oriented x 3, clear to auscultation bilaterally and regular rate & rhythm AIRWAY EVAL/ANESTHESIA PLAN: ASA III, Local Anesthesia, Risks, benefits & alternatives of sedation and/or procedure discussed and Patient agrees to continue as planned ADDITIONAL INFORMATION: Moderate sedation
--- NOTE | 2022-03-27 12:39 | PC.NURSE ---
Pt left floor at 1209 for collaborative physician.
--- NOTE | 2022-03-27 13:08 | PC.CHAP ---
Pastoral Care Encounter/Spiritual Assessment Type of Contact [] Declined risk management specialist visit [] Patient/Family/Request visit [] Outpatient visit [] Follow-up visit [] Physician referral [] Code/Alert [x] Routine visit [] Staff referral [] Actively dying [] Patient sleeping [] Family support [] [] Out of room [] Palliative care [] [] Receiving care in room [] Pre-surgical visit [] Trauma [] Long length of stay [] ICU visit [] Other: Relational/Emotional Strength [] Patient feels connected with others/family/visitors/staff [] Distress [] Loneliness/isolation [] Abandonment Spirituality of Patient [x] Person of Kiersten [] Attends Mormon of their Kiersten [x] Believes in Prayer [] Reads Bible or Jain materials [] There are Spiritual issues to be addressed [employer] Special Ed Teacher Interventions [x] Prayer [x] Active listening [x] Non-anxious presence [] Spiritual/emotional support [] Crisis/trauma care [] Spiritual counseling [] Bereavement support [] Provided bereavement packet [] Provided Bible/devotional materials [] Provided toy/stuffed animal, coloring book to patient or family member [] Provided Communion [] Anointing/[place] [] Salvation [x] Completed spiritual assessment [] Other: Impact on Illness or Injury [] Angry [] Fearful [] Anxious [] Often cries [] Exhaustion [] Unable to work [] Unable to attend samaritan [] Unable to walk/stand [] Unable to read [] Unable to drive [] Unable to eat/drink [] Unable to sleep [] Unable to be with family [] Patient intubated [] Other: Summary Time spent with patient 10 min
--- NOTE | 2022-03-27 15:06 | PC.NURSE ---
received from cardiac cardiac cath lab manager at 1310.report received.pt very sleepy from sedation but responds easily with verbal stimulation.sr on monitor.right femoral arterial sheath intact to pressurized system.drsg to site dry and intact and no hematoma noted.sheath was pulled at 1333.manual pressure applied and held x 20 min.vss through-out procedure.right leg remained warm to touch and with brisk capillary refill.palpable dp pulse noted.no hematoma formation noted.site dressed with 2x2 gauze and secured with biocclusive drsg.pt tolerated procedure well.pt instructed in activity restrictions s/p femoral artery sheath pull...and instructed to notify staff for any bleeding,pain,sob,numbness,or for any concerns at all.pt verb understanding of instructions.
--- NOTE | 2022-03-27 15:24 | PM.PN ---
Subjective Subjective: H&P and labs appreciated. Today morning on examination patient still complaining of chest pain on Nitropaste. Nitropaste will transition over to nitro drip. Patient underwent cardiac angiogram within the day which showed patent stents. High concern for vasospastic disease. Otherwise patient has remained hemodynamically stable and afebrile. Vitals/I&O/Wt Last Vital Signs Temp 98 F 03/27/22 12:00 Pulse 72 03/27/22 12:00 Resp 14 03/27/22 12:00 BP 117/60 03/27/22 12:00 Pulse Ox 98 03/27/22 12:00 O2 Del Method 03/27/22 12:00 O2 Flow Rate 2 03/27/22 08:00 03/27/22 03/27/22 03/27/22 06:59 14:59 22:59 Intake Total 120 / 120 5.475 / 5.475 Output Total 750 / 750 Balance 120 / 120 5.475 / 5.475 -750 / -744.525 Weight last 48 hrs Weight 64.319 kg Weight 62.641 kg Weight 58.967 kg Physical Exam Narrative: General: No acute distress, AO x3 HEENT: PERRLA, pupils bilaterally equal and reactive, pallors not present Chest: Normal vesicular breath sounds, no added sounds, equal good air entry bilaterally CVS: S1-S2 regular, no murmurs, no tachycardia, no gallops, no rubs Abdomen: Soft, nontender, no organomegaly, bowel sounds present Neuro: No focal deficits, no facial deformity, AO x3, power 5/5 in all limbs Data : 03/26/22 23:49 03/26/22 23:49 A&P Assessment and plan (1) Non-ST elevation [place] (NSTEMI): History of multiple stents in the past. Significant positive troponin delta. Angiogram done on 03/27 negative for in-stent thrombosis and consistent with patent stents. High concern for vasospastic disease States no break in the medication at home. Continue with aspirin, Plavix, statin, Imdur. Stop nitro drip. Continue with Lovenox 1 mg/kg body weight every 12 hourly. Start on amlodipine 5 mg daily. Continue with home dose of Ranexa. Limited echocardiogram for EF and regional wall motion abnormality. Patient continues to smoke 1 pack a day. States he is improved from six packs a day to 1 pack now. Requesting nicotine patch. Plan Continue home medications including hydroxyzine, quetiapine, Full code. Cardiac carb consistent diet. Full dose Lovenox will suffice for DVT prophylaxis Protonix for PUD prophylaxis Attestations Medical Necessity Statement*: Requires further hospitalization for management of non-ST elevation TX with patent stents most likely secondary to vasospastic disease as patient requires anticoagulation for next 24 hours and his home medications were adjusted Time Spent in Patient Care: Greater than 35 minutes Coding Level of Care Code Acute Retail Performance Coach for Marcelino Stephen Diagnoses Non-ST elevation [place] (NSTEMI) I21.4
[2022-03-27] MEDS: enoxaparin 60 mg/0.6 mL Syringe SUBCUT (15:51)
--- NOTE | 2022-03-27 15:55 | PC.NURSE ---
pt continues to report pain in chest post cath. I offered acetaminophen but pt said it no longer worked for him and wanted dilaudid. Administered 0.5mg of dilaudid for a pain level of 8.
[2022-03-27 17:23] LABS: Glucose Point of Care 149 mg/dL (70-110)
[2022-03-27] MEDS: amlodipine 5 mg Tablet PO (18:18)
[2022-03-27] MEDS: insulin lispro 100 unit/1 mL SUBCUT (18:19)
[2022-03-27] MEDS: quetiapine 25 mg Tablet 50 MG PO (20:13)
[2022-03-27] MEDS: atorvastatin 40 mg Tablet PO (20:14)
[2022-03-27] MEDS: insulin glargine 100 units/1 mL 5 UNIT SUBCUT (20:17)
[2022-03-27 22:16] LABS: Glucose Point of Care 178 mg/dL (70-110)
[2022-03-28] VITALS (15 sets, daily range): BP systolic 122–177; BP diastolic 69–96; PULSE 60–102; RESP 14–19; TEMP 36.5–37.1; O2SAT 17–100
[2022-03-28] MEDS: enoxaparin 60 mg/0.6 mL Syringe SUBCUT ×2 (00:27→12:55)
[2022-03-28] MEDS: HYDROmorphone 1 mg/mL INJ 1 mL 0.5 MG IVP ×4 (00:28→21:04)
[2022-03-28 04:41] LABS: Alanine Aminotransferase 6 U/L (0-41); Alkaline Phosphatase 84 U/L (40-130); Anion Gap 13.4 (5-19); Aspartate Amino Transferase 11 U/L (0-40); Blood Urea Nitrogen 16 mg/dL (6-20); Calcium 8.9 mg/dL (8.5-10.5); Carbon Dioxide 25 mmol/L (22-29); Chloride 102 mmol/L (98-107); Creatinine Clr Calc Pharmacy 94.8261; Glomerular Filtration Rate 91.7 mL/min (90-130); Glucose 174 mg/dL (65-115); Osmolality Calculated 287 mOsm/kg (285-295); Potassium 4.4 mmol/L (3.5-5.1); Sodium 136 mmol/L (136-145); Total Bilirubin 0.3 mg/dL (0.15-1.2)
[2022-03-28 05:03] LABS: Hematocrit 34.9 % (42.0-52.0); Hemoglobin 10.8 g/dL (11.7-16.6); Lymphocytes # 0.8 10^3/uL (0.8-4.8); Lymphocytes % 9.9 %; Mean Corpuscular HGB Conc 30.9 g/dL (30.0-36.0); Mean Corpuscular Hemoglobin 21.7 pg (28.0-34.0); Mean Corpuscular Volume 70.2 fl (80-94); Monocytes # 0.4 10^3/uL (0.2-0.9); Monocytes % 5.4 %; Neutrophils # 6.74 10^3/uL (1.8-7.7); Neutrophils % 84.4 %; Nucleated Red Blood Cells % 0 %; Platelet Count 244 10^3/cmm (130-400); Red Blood Count 4.97 10^6/uL (4.1-5.3); Red Cell Distribution Width 17.2 % (12.1-15.1)
[2022-03-28 05:04] LABS: Add RBC Morph Yes; Mean Platelet Volume 11.6 fL (7.4-10.4)
[2022-03-28 05:05] LABS: RBC Morph Comp No; Slide Review Slide Review Perform
[2022-03-28] MEDS: carvedilol 3.125 mg Tablet PO (05:05)
[2022-03-28] MEDS: aspirin 81 mg EC Tablet PO (05:05)
[2022-03-28] MEDS: ranolazine (12HR) 500 mg Tablet PO ×2 (05:05→17:13)
[2022-03-28 05:06] LABS: Microcytosis 2+
[2022-03-28 05:07] LABS: Hypochromasia 1+; Ovalocytes 1+; Target Cells 1+; Tear Drop Cells 1+
[2022-03-28 06:35] LABS: Glucose Point of Care 129 mg/dL (70-110)
--- NOTE | 2022-03-28 07:01 | P.PN_ITS ---
Subjective Subjective: Patient had chest discomfort episode with bradycardia. He was diaphoretic. Symptoms consistent with vagal response Vitals/I&O/Wt Last Vital Signs Temp 98 F 03/28/22 05:56 Pulse 75 03/28/22 05:56 Resp 14 03/28/22 05:56 BP 122/71 03/28/22 05:56 Pulse Ox 17 L 03/28/22 05:56 O2 Del Method 03/27/22 20:00 O2 Flow Rate 2 03/27/22 20:00 03/27/22 03/28/22 03/28/22 22:59 06:59 14:59 Intake Total 480 / 485.475 580 / 1065.475 Output Total 1450 / 1450 300 / 1750 Balance -970 / -964.525 280 / -684.525 Weight last 48 hrs Weight 141 lb 12.8 oz Weight 138 lb 1.6 oz Weight 130 lb Physical Exam Narrative: GENERAL: Patient is alert, awake and oriented x3. [] NECK: No jugular vein distension. [] HEENT: No cyanosis. No icterus. No pallor. [] HEART: Regular S1 and S2. No murmur, rub or gallop. [] LUNGS: Clear to auscultate bilaterally. [] ABDOMEN: Soft, nontender and nondistended. Positive bowel sounds. No guarding, rebound or tenderness. [] CENTRAL NERVOUS SYSTEM: Grossly nonfocal. [] EXTREMITIES: Lower extremities with no edema bilaterally. Pulses palpable in the lower extremities, both dorsalis pedis and posterior tibial. [] Data : 03/28/22 03:19 03/28/22 03:19 A&P Assessment and plan (1) Non-ST elevation CO (NSTEMI): (2) CAD (coronary artery disease): (3) Bipolar disorder without psychotic features: (4) Chest pain: Qualifiers: Chest pain type: other chest pain Qualified Code(s): R07.89 - Other chest pain Plan Coronary angiogram did not reveal any significant CAD. Prior stents were open. Continue aspirin and Plavix. Patient had bradycardia episode this morning associated with diaphoresis. Symptoms consistent with vagal response. Now in normal rhythm. Heart rate has improved after that brief episode. Thank you for involving us with care of this patient. We will continue to follow. Please call with questions. Attestations Medical Necessity Statement*: Care expected to cross 2 midnights Coding Level of Care Code Acute Education Director for Chg Fwd Diagnoses Non-ST elevation CO (NSTEMI) I21.4 CAD (coronary artery disease) I25.10 Bipolar disorder without psychotic features F31.9 Chest pain R07.89 Chest pain type: other chest pain
[2022-03-28] MEDS: clopidogrel 75 mg Tablet PO (08:09)
[2022-03-28] MEDS: nicotine 14 mg Patch 1 PATCH TRANSDERMA (08:09)
[2022-03-28] MEDS: amlodipine 5 mg Tablet PO (08:09)
[2022-03-28] MEDS: pantoprazole DR 40 mg Tablet PO (08:09)
[2022-03-28] MEDS: escitalopram 10 mg Tablet PO (08:09)
[2022-03-28] MEDS: isosorbide mononitrate ER 60 mg Tablet PO (08:09)
[2022-03-28 08:50] LABS: ABG PCO2 40.2 mmHg (35-45); ABG PH Result 7.41 (7.35-7.45); Alveolar-Arterial Oxygen Gradi 2.2 mmHg (5-10); Arterial Blood Gas Hematocrit 34.1 % (42-52); Base Excess ABG 0.8 mmol/L (-2.0-2.0); Blood Gas Operator Identificat AMH; Blood Gas Sample Site Brachial, right; Blood Gas Sample Type Arterial; Carboxyhemoglobin 1.1 %THgb (0.4-20.1); HCO3 ABG 25.5 mmol/L (22-26); HGB O2 Sat 95.8 % (95-100); Ionized Calcium Level - ABG 1.2 mmol/L (1.1-1.4); Methemoglobin 0.9 % (0.4-1.5); Oxygen Device ROOM AIR; Oxygen Saturation ABG 97.7; PO2 ABG 84.8 mmHg (80.0-100.0); Total Hemoglobin 11.1 g/dL (14-18)
--- NOTE | 2022-03-28 08:50 | ECG_ITS ---
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 Measurements Intervals [place] Rate: 62 P: 38 NC: 147 QRS: 53 QRSD: 98 T: 58 QT: 389 QTc: 395 Interpretive Statements SINUS RHYTHM MODERATE VOLTAGE CRITERIA FOR LVH, CONSIDER NORMAL VARIANT [MEETS CRITERIA IN ONE OF: R(aVL), S(V1), R(V5), R(V5/V6)+S(V1)] Compared to ECG 03/27/2022 01:20:48 No significant changes Electronically Signed On 03-28-2022 19:35:52 CDT by Anatoliy Jean Baptiste M.D. [id number] f
--- NOTE | 2022-03-28 08:50 | PC.NURSE ---
Aide and groundwater monitoring technician notified me of a heart rate of 25 which lasted only a few beats. I went in to check on the patient who appeared to be very diaphoretic, lethargic, and hunched over. I called his name with little response. I called out for my preceptor Opal, and Gail charge nurse. We then called a rapid response An EKG and ABG was performed. Dr. Pickett notified and Dr. Pacheco came to check on patient. Patient's heart rate is now at 64 and patient appears to be awake just very lethargic. He is speaking to me and asking about why his arterial blood stick hurt.
[2022-03-28 09:02] LABS: Glucose Point of Care 148 mg/dL (70-110)
--- NOTE | 2022-03-28 09:09 | PC.NURSE ---
attempted to call significant other, Jennyfer, to let her know of rapid response called. No answer and unable to leave a message. Called [phone].
[2022-03-28] MEDS: ibuprofen 200 mg Tablet 400 MG PO ×3 (09:55→20:15)
[2022-03-28 11:00] LABS: Glucose Point of Care 170 mg/dL (70-110)
[2022-03-28] MEDS: insulin lispro 100 unit/1 mL SUBCUT ×2 (11:49→17:13)
[2022-03-28] MEDS: ondansetron 2 mg/ML SDV 2 mL 4 MG IVP (12:53)
[2022-03-28 16:52] LABS: Glucose Point of Care 150 mg/dL (70-110)
[2022-03-28] MEDS: insulin glargine 100 units/1 mL 5 UNIT SUBCUT (20:17)
[2022-03-28] MEDS: atorvastatin 40 mg Tablet PO (20:17)
[2022-03-28 21:05] LABS: Glucose Point of Care 120 mg/dL (70-110)
[2022-03-28] MEDS: hyDROXYzine 25 mg Capsule PO (21:10)
[2022-03-28] MEDS: quetiapine 25 mg Tablet 50 MG PO (21:11)
[2022-03-29] VITALS (7 sets, daily range): BP systolic 111–135; BP diastolic 66–76; PULSE 65–80; RESP 14–20; TEMP 36.6–37.1; O2SAT 96–100
[2022-03-29] MEDS: enoxaparin 60 mg/0.6 mL Syringe SUBCUT (00:48)
[2022-03-29 04:38] LABS: Alanine Aminotransferase < 5 U/L (0-41); Albumin Level 3.5 g/dL (3.5-5.2); Alkaline Phosphatase 74 U/L (40-130); Anion Gap 11.1 (5-19); Aspartate Amino Transferase 9 U/L (0-40); Blood Urea Nitrogen 17 mg/dL (6-20); Calcium 8.2 mg/dL (8.5-10.5); Carbon Dioxide 29 mmol/L (22-29); Chloride 105 mmol/L (98-107); Globulin 2.8 g/dL (1.3-4.6); Glomerular Filtration Rate 72.7 mL/min (90-130); Glucose 97 mg/dL (65-115); Osmolality Calculated 293 mOsm/kg (285-295); Potassium 4.1 mmol/L (3.5-5.1); Sodium 141 mmol/L (136-145); Total Bilirubin 0.3 mg/dL (0.15-1.2); Total Protein 6.3 g/dL (6.6-8.7)
[2022-03-29] MEDS: aspirin 81 mg EC Tablet PO (05:43)
[2022-03-29] MEDS: ranolazine (12HR) 500 mg Tablet PO (05:43)
[2022-03-29 06:45] LABS: Glucose Point of Care 87 mg/dL (70-110)
[2022-03-29] MEDS: pantoprazole DR 40 mg Tablet PO (09:00)
[2022-03-29] MEDS: clopidogrel 75 mg Tablet PO (09:00)
[2022-03-29] MEDS: isosorbide mononitrate ER 60 mg Tablet PO (09:00)
[2022-03-29] MEDS: escitalopram 10 mg Tablet PO (09:00)
[2022-03-29] MEDS: amlodipine 5 mg Tablet PO (09:00)
[2022-03-29] MEDS: nicotine 14 mg Patch 1 PATCH TRANSDERMA (09:01)
[2022-03-29] MEDS: hyDROXYzine 25 mg Capsule PO (09:07)
[2022-03-29] MEDS: HYDROmorphone 1 mg/mL INJ 1 mL 0.5 MG IVP (09:07)
--- NOTE | 2022-03-29 11:09 | P.DS_ITS ---
Discharge Providers Date of Admission: 03/27/22 00:28 Date of Discharge: March 29, 2022 Attending Provider at Admission: Alcira Vines MD Attending Provider at Discharge: Maximo Pickett MD Consults: Cardiology: Dr. Pacheco Primary Care Provider: Cecily Miller MD Diagnoses at Discharge Discharge Diagnosis (1) Non-ST elevation SD (NSTEMI): Status: Acute (2) CAD (coronary artery disease): Status: Acute Permanent problem details: 9stents (3) Bipolar disorder without psychotic features: Status: Acute (4) Chest pain: Status: Acute Qualifiers: Chest pain type: other chest pain Qualified Code(s): R07.89 - Other chest pain Reason for Visit Reason for Visit: cp Hospital Course Hospital Course Alonso June is a 46 year old male Alonso June is a 46 year old male with a past medical history of multiple hospital admissions for chest pain, recent hospitalization for chest pain December 2021 with coronary angiogram without any evidence of obstructive CAD, history of multiple stents, he has had multiple coronary angiograms in the last year, he has had multiple hospitalizations for strokelike symptoms, has received tPA on multiple occasions. He presented to the emergency room with chief complains of chest pain.? States that it is located in the center of the chest and left side.? Radiating into his neck and left arm.? No dyspnea or palpitations. He presented to the emergency room last night with chief complains of chest pain EKG does not show any acute ST-T wave changes.? Baseline troponin returned at 161.? 2-hour troponin increased to 217 with a 2-hour delta at 56.3.? He is being admitted with in view of NSTEMI. Cardiology was consulted. At first recommendation going to do for stress test but as patient continued to have chest pain even on nitro drip he was taken to [facility] which showed patent stents. It is believed his symptoms are most likely secondary to a combination of possible vasospastic angina versus myocarditis. Nitro drip was eventually turned off. Amlodipine was started and his dose of Imdur was increased. During hospitalization patient did have 1 episode of presyncope during which his heart rate dropped down to 20s. The event was monitored. It is believed the symptoms were secondary to a vasovagal episode. He is beta-juliet for now has been discontinued. Patient did not have any further events. He is been discharged hemodynamically stable condition with event monitor for further evaluation for bradycardia. He is to follow-up with Isabelle Pedraza/nurse practitioner for heart services in [address] Pacheco in the next 2 weeks. Plan of discharge were discussed in detail with the patient and he verbalized understanding. Physical Exam Narrative: General: No acute distress, AO x3 HEENT: PERRLA, pupils bilaterally equal and reactive, pallors not present Chest: Normal vesicular breath sounds, no added sounds, equal good air entry bilaterally CVS: S1-S2 regular, no murmurs, no tachycardia, no gallops, no rubs Abdomen: Soft, nontender, no organomegaly, bowel sounds present Neuro: No focal deficits, no facial deformity, AO x3, power 5/5 in all limbs Discharge Data Studies Completed and Pending Completed Studies During Hospitalization Category Date Time Status CAREER DEVELOPMENT COUNSELOR request for service Routine Exams 03/27/22 12:00 Completed XR chest 1V portable [id number] Stat Exams 03/26/22 23:04 Completed CV. echo limited [id number] Routine Ultrasound 03/27/22 09:25 Completed Pending at discharge Category Date Time Status Sestamibi Stress Test Request Routine Exams 03/27/22 08:53 Stop Req NM angella perf SPECT r/s* [id number] Routine Nuc Med 03/30/22 08:54 Stop Req Radiology Impressions Chest X-Ray 03/26/22 23:04 IMPRESSION: No acute findings. Laboratory Results WBC 8.0 10^3/uL (4.0-10.0) 03/28/22 03:19 RBC 4.97 10^6/uL (4.1-5.3) 03/28/22 03:19 Hgb 10.8 g/dL (11.7-16.6) L 03/28/22 03:19 Hct 34.9 % (42.0-52.0) L 03/28/22 03:19 MCV 70.2 fl (80-94) L 03/28/22 03:19 MCH 21.7 pg (28.0-34.0) L 03/28/22 03:19 MCHC 30.9 g/dL (30.0-36.0) 03/28/22 03:19 RDW 17.2 % (12.1-15.1) H 03/28/22 03:19 Plt Count 244 10^3/cmm (130-400) 03/28/22 03:19 MPV 11.6 fL (7.4-10.4) H 03/28/22 03:19 Neut % (Auto) 84.4 % 03/28/22 03:19 Lymph % (Auto) 9.9 % 03/28/22 03:19 Rich % (Auto) 5.4 % 03/28/22 03:19 Eos % (Auto) 0.0 % 03/28/22 03:19 Baso % (Auto) 0.0 % 03/28/22 03:19 Neut # (Auto) 6.74 10^3/uL (1.8-7.7) 03/28/22 03:19 Lymph # (Auto) 0.8 10^3/uL (0.8-4.8) 03/28/22 03:19 Rich # (Auto) 0.4 10^3/uL (0.2-0.9) 03/28/22 03:19 Eos # (Auto) 0.0 10^3/uL (0.0-0.8) 03/28/22 03:19 Baso # (Auto) 0.0 10^3/uL (0.0-0.1) 03/28/22 03:19 Nucleated RBC % (auto) 0 % 03/28/22 03:19 Nucleated RBCs # 0.0 /100WBC 03/28/22 03:19 Hypochromasia 1+ H 03/28/22 03:19 Microcytosis 2+ H 03/28/22 03:19 Target Cells 1+ H 03/28/22 03:19 Tear Drop Cells 1+ 03/28/22 03:19 Ovalocytes 1+ H 03/28/22 03:19 Specimen Type Arterial 03/28/22 08:39 Sample Site Brachial, right 03/28/22 08:39 ABG pH 7.41 (7.35-7.45) 03/28/22 08:39 ABG pCO2 40.2 mmHg (35-45) 03/28/22 08:39 ABG pO2 84.8 mmHg (80.0-100.0) 03/28/22 08:39 ABG HCO3 25.5 mmol/L (22-26) 03/28/22 08:39 ABG O2 Saturation 97.7 03/28/22 08:39 ABG Base Excess 0.8 mmol/L (-2.0-2.0) 03/28/22 08:39 Alfrdeo Test N/a 03/28/22 08:39 A-a O2 Gradient 2.2 mmHg (5-10) L 03/28/22 08:39 Hematocrit 34.1 % (42-52) L 03/28/22 08:39 Hgb O2 Saturation 95.8 % (95-100) 03/28/22 08:39 Carboxyhemoglobin 1.1 %THgb (0.4-20.1) 03/28/22 08:39 Methemoglobin 0.9 % (0.4-1.5) 03/28/22 08:39 Total Hemoglobin 11.1 g/dL (14-18) L 03/28/22 08:39 Sodium 137.0 mmol/L (131-143) 03/28/22 08:39 Potassium 4.0 mmol/L (3.5-5.0) 03/28/22 08:39 Glucose 133.0 mg/dL (70-115) H 03/28/22 08:39 Ionized Calcium 1.2 mmol/L (1.1-1.4) 03/28/22 08:39 O2 Delivery Device Room air 03/28/22 08:39 FiO2 21.0 % 03/28/22 08:39 Spray Gun Sizer ID Amh 03/28/22 08:39 Sodium 141 mmol/L (136-145) 03/29/22 03:43 Potassium 4.1 mmol/L (3.5-5.1) 03/29/22 03:43 Chloride 105 mmol/L (98-107) 03/29/22 03:43 Carbon Dioxide 29 mmol/L (22-29) 03/29/22 03:43 Anion Gap 11.1 (5-19) 03/29/22 03:43 BUN 17 mg/dL (6-20) 03/29/22 03:43 Creatinine 1.1 mg/dL (0.7-1.2) 03/29/22 03:43 GFR Calculation 72.7 mL/min (90-130) L 03/29/22 03:43 Glucose 97 mg/dL (65-115) 03/29/22 03:43 POC Glucose 87 mg/dL (70-110) 03/29/22 06:29 Calculated Osmolality 293 mOsm/kg (285-295) 03/29/22 03:43 Calcium 8.2 mg/dL (8.5-10.5) L 03/29/22 03:43 Total Bilirubin 0.3 mg/dL (0.15-1.2) 03/29/22 03:43 AST 9 U/L (0-40) 03/29/22 03:43 ALT < 5 U/L (0-41) 03/29/22 03:43 Alkaline Phosphatase 74 U/L (40-130) 03/29/22 03:43 Troponin T Baseline 161 ng/L (0-15) H* 03/26/22 23:49 Troponin T 120 Minute 217.3 ng/L (0-15) H 03/27/22 01:25 Delta Troponin T 56.3 ABS# (0-10) H* 03/27/22 01:25 Troponin T Hi Sens 6Hr 260.9 ng/L (0-15) H 03/27/22 06:02 Troponin T Hi Sens 6Hr Delta 99.9 ng/L (0-12) H* 03/27/22 06:02 Total Protein 6.3 g/dL (6.6-8.7) L 03/29/22 03:43 Albumin 3.5 g/dL (3.5-5.2) 03/29/22 03:43 Globulin 2.8 g/dL (1.3-4.6) 03/29/22 03:43 Vitamin B12 516 pg/mL (232-1245) 03/26/22 23:49 Folate 12.0 ng/mL (4.5-32.2) 03/26/22 23:49 Urine Color Yellow (Yellow) 03/27/22 10:45 Urine Appearance Clear (CLEAR) 03/27/22 10:45 Urine pH 6 (5-7) 03/27/22 10:45 Ur Specific [place] 1.010 (1.005-1.030) 03/27/22 10:45 Urine Protein Neg (Negative) 03/27/22 10:45 Urine Glucose (UA) Norm (Normal) 03/27/22 10:45 Urine Ketones Negative (Negative) 03/27/22 10:45 Urine Blood Neg (Negative) 03/27/22 10:45 Urine Nitrate Negative (Negative) 03/27/22 10:45 Urine Bilirubin Neg (Negative) 03/27/22 10:45 Urine Urobilinogen Neg mg/dL (Negative) 03/27/22 10:45 Ur Leukocyte Esterase Negative (Negative) 03/27/22 10:45 Urine Opiates Screen Positive ng/mL (Negative) H 03/27/22 10:45 Ur Barbiturates Screen Negative ng/mL (Negative) 03/27/22 10:45 Ur Phencyclidine Scrn Negative ng/mL (Negative) 03/27/22 10:45 Ur Amphetamines Screen Negative ng/mL (Negative) 03/27/22 10:45 U Benzodiazepines Scrn Negative ng/mL (Negative) 03/27/22 10:45 Urine Cocaine Screen Negative ng/mL (Negative) 03/27/22 10:45 U Marijuana (THC) Screen Negative ng/mL (Negative) 03/27/22 10:45 Vitals Last Vital Signs Temp 98.8 F 03/29/22 07:45 Pulse 65 03/29/22 08:00 Resp 17 03/29/22 07:45 BP 123/72 03/29/22 07:45 Pulse Ox 100 03/29/22 08:00 O2 Del Method 03/29/22 08:00 O2 Flow Rate 3 03/29/22 08:00 Discharge Plan Discharge Patient Disposition: Home Condition: Stable Prescriptions: New ibuprofen 400 mg tablet 400 mg PO Q8H 7 Days Qty: 21 0RF amlodipine 5 mg Tablet 5 mg PO DAILY Qty: 30 0RF Continued ugbjegoxzo-btfytgtuatfkw-yomq 50-325-40 mg tablet 2 tab PO BID PRN (Reason: Migraine Headache) Hold Instructions: interaction with aspirin albuterol sulfate [ProAir HFA] 90 mcg/actuation HFA aerosol inhaler 2 puff INHALATION Q4H PRN (Reason: Shortness Of Breath) 1 Days Qty: 30 0RF hydroxyzine HCl 25 mg tablet 25 mg PO BID PRN (Reason: nausea and vomiting) insulin glargine [Lantus Solostar U-100 Insulin] 100 unit/mL (3 mL) insulin pen 5 unit SUBCUT BEDTIME Qty: 15 0RF insulin aspart U-100 [Novolog Flexpen U-100 Insulin] 100 unit/mL (3 mL) insulin pen See Rx Instructions .ROUTE .COMPLEX Qty: 15 0RF Rx Instructions: Inject, 3 times daily, after meals, based on sliding scale provided ondansetron HCl 4 mg tablet 4 mg PO Q6H PRN (Reason: nausea and vomiting) Qty: 20 0RF escitalopram oxalate 10 mg Tablet 10 mg PO DAILY 30 Days Qty: 30 1RF atorvastatin 40 mg tablet 40 mg PO BEDTIME 30 Days Qty: 30 1RF aspirin 81 mg Tablet,Delayed Release (Dr/Ec) 81 mg PO QAM 30 Days Qty: 30 1RF nitroglycerin [Nitrostat] 0.4 mg Tablet, Sublingual 0.4 mg SUBLINGUAL Q5M PRN (Reason: Chest Pain) 30 Days Qty: 60 1RF Rx Instructions: do not exceed 3 doses per episode cyclobenzaprine 10 mg tablet 10 mg PO BID PRN (Reason: muscle spasm) Qty: 20 0RF acetaminophen 500 mg tablet 500 mg PO Q6H PRN (Reason: pain) Qty: 30 0RF clopidogrel [Plavix] 75 mg tablet 75 mg PO DAILY Qty: 30 0RF baclofen 10 mg tablet 10 mg PO Q8H PRN (Reason: muscle spasm) Qty: 10 0RF Reglan 10 mg tablet 10 mg PO QID PRN (Reason: Nausea) quetiapine 50 mg tablet 50 mg PO BEDTIME ranolazine 500 mg tablet extended release 12 hr 500 mg PO Q12H Changed isosorbide mononitrate 60 mg tablet extended release 24 hr 60 mg PO BID Qty: 30 0RF Discontinued carvedilol 3.125 mg tablet 3.125 mg PO Q12H Discharge Orders: Discharge Order (Routine); Ordered 03/29/22 Ordered By: Maximo Pickett Other Ambulatory Orders: MCT/Event Monitor 21 Days (Routine) Timeframe: 1 Day Facility: [facility] - Location: Radiology Ordered By: Maximo Pickett Referrals: Cecily Miller MD [Primary Care Provider] - 7-10 days (Repeat BMP) Heath Pacheco M.D [Physician] - 1 month Isabelle Pedarza FNP [Nurse Practitioner] - 7-10 days Discharge Diet: Cardiac Discharge Activity: Resume usual activity and Increase activity as tolerated Patient Instructions: Ibuprofen (By mouth) (Advil, Advil Children's, Motrin, Children's..., Amlodipine (By mouth) (Hypertenipine-2.5, Norvasc, Norliqva), Opioid Safety Discharge Attestations Time Spent in Discharge Care*: greater than 30 min Specific Discharge Activities: educating patient, discussing with pcp/other providers, discussing with community case manager/social workers/dc planners, documenting/other paperwork and evaluating patient/reviewing data Status at Discharge: Cognitive status at discharge: cognitively intact , Behavioral status at discharge: cooperative , Functional status at discharge: independent ambulation , Overall status at discharge: patient is back to baseline Quality Metrics Clinical Quality Measures [ No reported AMI, CVA or VTE this stay] Coding Level of Care Code Acute [facility] DC note Diagnoses Non-ST elevation SD (NSTEMI) I21.4 CAD (coronary artery disease) I25.10 Bipolar disorder without psychotic features F31.9 Chest pain R07.89 Chest pain type: other chest pain
[2022-03-29 11:39] LABS: Glucose Point of Care 107 mg/dL (70-110)
--- NOTE | 2022-03-29 12:56 | PC.NURSE ---
discharge note instructed pt and discuss to him to follow-up with his pcp and early childhood educator aide. to follow- through w/his event monitor and early childhood educator aide and pcp. discuss to him his new meds, change meds and stopped medication. pt verbalizes understanding. post angiogram home care instructions discuss to pt as well. pt does not qualify for his home o2 eval. pt did not wait for his ride w/c is his . called x2 and left a voicemail message to her.
== END 2022-03-29 12:58 | disposition home or self-care (01) | DRG 287 ==
LOC: ER 03-27 00:34 → MEDSURG 03-27 00:51
PROVIDERS: Internal Medicine; Admitting Provider Student in an Organized Health Care Education/Training Program; Emergency Provider Emergency Medicine; PCP Internal Medicine; Visit Provider Student in an Organized Health Care Education/Training Program
PROC: 4A023N7 Measurement of Cardiac Sampling and Pressure, Left Heart, Percutaneous Approach (ICD-10-PCS; principal; 2022-03-27 12:00)
DX: I25.111 Atherosclerotic heart disease of native coronary artery with angina pectoris with documented spasm (principal); I10 Essential (primary) hypertension; Z86.73 Personal history of transient ischemic attack (TIA), and cerebral infarction without residual deficits; E11.9 Type 2 diabetes mellitus without complications; E78.5 Hyperlipidemia, unspecified; Z87.891 Personal history of nicotine dependence; I25.2 Old myocardial infarction; F31.9 Bipolar disorder, unspecified; R55 Syncope and collapse; Z79.02 Long term (current) use of antithrombotics/antiplatelets; Z79.82 Long term (current) use of aspirin; Z79.4 Long term (current) use of insulin; Z79.51 Long term (current) use of inhaled steroids
CPT/HCPCS: 36415; 36416; 36600; 71045; 80051; 80053; 80306; 81003; 82330; 82607; 82746; 82805; 82962; 84484; 85025; 93005; 93308; 93458; 94760; 96372; 99152; 99285; C1769; C1887; C1894; J1170; J1644; J1650; J1815; J2250; J2405; J2930; J3010; J3490; J7030; Q9967

== ENCOUNTER 2022-03-30 17:18 | Emergency (ER) | payer MEDICAID, SELFPAY ==
[2022-03-30 17:45] VITALS: BP 128/70; PULSE 105; RESP 16; TEMP 36.8; O2SAT 98; BMI 31.4
--- NOTE | 2022-03-30 17:50 | ECG_ITS ---
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 Measurements Intervals [place] Rate: 113 P: 77 AK: 140 QRS: 79 QRSD: 85 T: 65 QT: 297 QTc: 409 Interpretive Statements SINUS TACHYCARDIA POSSIBLE LEFT ATRIAL ENLARGEMENT [-0.1mV P-WAVE IN V1/V2] POSSIBLE LEFT VENTRICULAR HYPERTROPHY [VOLTAGE CRITERIA PLUS LAE OR QRS WIDENING] Compared to ECG 03/28/2022 08:41:09 Sinus rhythm no longer present Electronically Signed On 03-30-2022 21:27:50 CDT by Anatoliy Jean Baptiste M.D. [id number]
--- NOTE | 2022-03-30 18:00 | XRR_ITS ---
PROCEDURE INFORMATION: Exam: XR Chest Exam date and time: 03/30/2022 6:13 PM Age: 46 years old Clinical indication: Pain; Angina pectoris and chest pressure; Additional info: Cp TECHNIQUE: Imaging protocol: Radiologic exam of the chest. Views: 1 view. COMPARISON: CR (CHEST, ) 03/27/2022 12:23 AM FINDINGS: Lungs: No consolidation. Pleural spaces: No pleural effusion. No pneumothorax. Heart/Mediastinum: No cardiomegaly. Bones/joints: Unremarkable. XR/XR chest 1V portable [id number] IMPRESSION: 1. No acute abnormality demonstrated. 2. There is no interval change from the prior examination.
--- NOTE | 2022-03-30 18:01 | ED_ITS ---
HPI - Chest Pain General: Chief Complaint: Chest Pain Stated Complaint: chest pain Time Seen by Provider: 03/30/22 17:52 History of Present Illness: 46-year-old male presents with left-sided chest pressure. He reports that started 20 minutes prior to arrival. Patient was just discharged from the hospital yesterday. Patient has been admitted for elevated troponin and similar symptoms. At that time patient received a heart cath due to elevated troponin and a history of stents. Heart cath showed no acute findings. They suspect elevated troponin related to either coronary spasm versus myocarditis. Patient denies any shortness of breath, fever, chills. It is similar to his symptoms when he was seen here in the hospital for couple days. Patient's troponin at his highest level was 225. Associated symptoms: Deny abdominal pain, dyspnea, fever(s), nausea or vomiting Review of Systems Const: Denies: fever(s) or chills Eyes: Denies: change in vision or blurry vision Card: Reports: chest pain; Denies: irregular heart rhythm or edema Resp: Reports: other (Chest pressure); Denies: dyspnea GI: Denies: abdominal pain, nausea or vomiting : Denies: flank pain or difficulty urinating Musc: Denies: neck pain or back pain Skin/Breast: Denies: rash Neuro: Denies: headache(s), numbness in extremities or dizziness [facility] ED PFSH: Medical History (Updated 03/30/22 @ 00:01 by ) Angina pectoris, unstable Benign essential HTN Bipolar disorder without psychotic features Bradycardia CAD (coronary artery disease) 9stents Chest pain CVA (cerebrovascular accident) Diabetes Dyslipidemia (high LDL; low HDL) Former smoker HTN (hypertension) Vasovagal episode Surgical History History of appendectomy Family History Other No pertinent family history Social History Smoking and tobacco status: former smoker Alcohol intake: never Housing: House Physical Exam Const: COMMON NORMALS: no acute distress and alert GENERAL APPEARANCE: appears older than stated age Resp: COMMON NORMALS: normal respiratory effort and No use of accessory muscles EFFORT & INSPECTION: Yes able to speak in complete sentences Cardio: COMMON NORMALS: regular rhythm RATE: tachycardic RHYTHM: regular rhythm GI: COMMON NORMALS: Soft to palpation and non-tender PALPATION: Yes Soft to palpation Extremity: COMMON NORMALS: normal to inspection, full ROM and capillary refill normal Neuro: SENSORIUM/ORIENTATION: Yes alert Psych: COMMON NORMALS: mental status grossly normal and cooperative Skin: COMMON NORMALS: no rashes or lesions noted GENERAL SKIN EXAM: no rashes or lesions noted Course Vital Signs: Vital signs: Vital Signs Temperature 98.3 F 03/30/22 17:45 Pulse Rate 96 03/30/22 19:16 Respiratory Rate 18 03/30/22 19:11 Blood Pressure 128/70 03/30/22 17:45 Pulse Oximetry 99 03/30/22 19:11 Oxygen Delivery Me thod 03/30/22 19:11 MDM - Chest Pain Medical Decision Making Patient with a negative heart cath couple days ago. Patient with a still slight elevation of his troponin. His physical exam shows no acute findings. Patient reports pain was given a Tylenol. Patient's heart rate was initially in the 110s and improved following the Tylenol and a breathing treatment and within normal. No acute findings on chest x-ray. Patient was requesting morphine. I discussed with him that at this time I do not anticipate giving him any morphine since I do not have a reason for his chest pain and we will continue our evaluation. Shortly after leaving the room while awaiting a second troponin patient decided he would rated check out AMA. 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 No acute abnormality demonstrated. 2. There is no interval change from the prior examination. Laboratory Results WBC 8.3 10^3/uL (4.0-10.0) 03/30/22 18:13 RBC 4.89 10^6/uL (4.1-5.3) 03/30/22 18:13 Hgb 10.8 g/dL (11.7-16.6) L 03/30/22 18:13 Hct 33.7 % (42.0-52.0) L 03/30/22 18:13 MCV 68.9 fl (80-94) L 03/30/22 18:13 MCH 22.1 pg (28.0-34.0) L 03/30/22 18:13 MCHC 32.0 g/dL (30.0-36.0) 03/30/22 18:13 RDW 17.1 % (12.1-15.1) H 03/30/22 18:13 Plt Count 239 10^3/cmm (130-400) 03/30/22 18:13 MPV 11.0 fL (7.4-10.4) H 03/30/22 18:13 Neut % (Auto) 61.8 % 03/30/22 18:13 Lymph % (Auto) 21.6 % 03/30/22 18:13 [place] % (Auto) 12.1 % 03/30/22 18:13 Eos % (Auto) 3.5 % 03/30/22 18:13 Baso % (Auto) 0.6 % 03/30/22 18:13 Neut # (Auto) 5.15 10^3/uL (1.8-7.7) 03/30/22 18:13 Lymph # (Auto) 1.8 10^3/uL (0.8-4.8) 03/30/22 18:13 [place] # (Auto) 1.0 10^3/uL (0.2-0.9) H 03/30/22 18:13 Eos # (Auto) 0.3 10^3/uL (0.0-0.8) 03/30/22 18:13 Baso # (Auto) 0.1 10^3/uL (0.0-0.1) 03/30/22 18:13 Nucleated RBC % (auto) 0 % 03/30/22 18:13 Nucleated RBCs # 0.0 /100WBC 03/30/22 18:13 D-Dimer <= 0.27 ug/mIFEU (0-0.59) 03/30/22 18:13 Sodium 138 mmol/L (136-145) 03/30/22 18:13 Potassium 4.0 mmol/L (3.5-5.1) 03/30/22 18:13 Chloride 101 mmol/L (98-107) 03/30/22 18:13 Carbon Dioxide 28 mmol/L (22-29) 03/30/22 18:13 Anion Gap 13.0 (5-19) 03/30/22 18:13 BUN 16 mg/dL (6-20) 03/30/22 18:13 Creatinine 1.0 mg/dL (0.7-1.2) 03/30/22 18:13 GFR Calculation 81.2 mL/min (90-130) L 03/30/22 18:13 Glucose 100 mg/dL (65-115) 03/30/22 18:13 Calculated Osmolality 287 mOsm/kg (285-295) 03/30/22 18:13 Calcium 9.4 mg/dL (8.5-10.5) 03/30/22 18:13 Total Bilirubin 0.3 mg/dL (0.15-1.2) 03/30/22 18:13 AST 10 U/L (0-40) 03/30/22 18:13 ALT 7 U/L (0-41) 03/30/22 18:13 Alkaline Phosphatase 81 U/L (40-130) 03/30/22 18:13 Troponin T Baseline 175 ng/L (0-15) H* 03/30/22 18:13 NT-Pro-B Natriuret Pep 323 pg/mL (0-125) H 03/30/22 18:13 Total Protein 7.0 g/dL (6.6-8.7) 03/30/22 18:13 Albumin 4.2 g/dL (3.5-5.2) 03/30/22 18:13 Globulin 2.8 g/dL (1.3-4.6) 03/30/22 18:13 Discharge Plan Discharge Condition: Stable Prescriptions: No Action acgbeeamhz-oqtteskobbpmu-fsjf 50-325-40 mg tablet 2 tab PO BID PRN (Reason: Migraine Headache) Hold Instructions: interaction with aspirin albuterol sulfate [ProAir HFA] 90 mcg/actuation HFA aerosol inhaler 2 puff INHALATION Q4H PRN (Reason: Shortness Of Breath) 1 Days Qty: 30 0RF hydroxyzine HCl 25 mg tablet 25 mg PO BID PRN (Reason: nausea and vomiting) insulin glargine [Lantus Solostar U-100 Insulin] 100 unit/mL (3 mL) insulin pen 5 unit SUBCUT BEDTIME Qty: 15 0RF insulin aspart U-100 [Novolog Flexpen U-100 Insulin] 100 unit/mL (3 mL) insulin pen See Rx Instructions .ROUTE .COMPLEX Qty: 15 0RF Rx Instructions: Inject, 3 times daily, after meals, based on sliding scale provided ondansetron HCl 4 mg tablet 4 mg PO Q6H PRN (Reason: nausea and vomiting) Qty: 20 0RF escitalopram oxalate 10 mg Tablet 10 mg PO DAILY 30 Days Qty: 30 1RF atorvastatin 40 mg tablet 40 mg PO BEDTIME 30 Days Qty: 30 1RF aspirin 81 mg Tablet,Delayed Release (Dr/Ec) 81 mg PO QAM 30 Days Qty: 30 1RF nitroglycerin [Nitrostat] 0.4 mg Tablet, Sublingual 0.4 mg SUBLINGUAL Q5M PRN (Reason: Chest Pain) 30 Days Qty: 60 1RF Rx Instructions: do not exceed 3 doses per episode cyclobenzaprine 10 mg tablet 10 mg PO BID PRN (Reason: muscle spasm) Qty: 20 0RF acetaminophen 500 mg tablet 500 mg PO Q6H PRN (Reason: pain) Qty: 30 0RF clopidogrel [Plavix] 75 mg tablet 75 mg PO DAILY Qty: 30 0RF baclofen 10 mg tablet 10 mg PO Q8H PRN (Reason: muscle spasm) Qty: 10 0RF Reglan 10 mg tablet 10 mg PO QID PRN (Reason: Nausea) quetiapine 50 mg tablet 50 mg PO BEDTIME ranolazine 500 mg tablet extended release 12 hr 500 mg PO Q12H amlodipine 5 mg Tablet 5 mg PO DAILY Qty: 30 0RF ibuprofen 400 mg tablet 400 mg PO Q8H 7 Days Qty: 21 0RF isosorbide mononitrate 60 mg tablet extended release 24 hr 60 mg PO BID Qty: 30 0RF Referrals: Cecily Miller MD [Primary Care Provider] - Coding Level of Care Code ED Public Relations Analyst for Chg Fwd Exam Detailed
[2022-03-30 18:19] LABS: Basophils # 0.1 10^3/uL (0.0-0.1); Basophils % 0.6 %; Eosinophils # 0.3 10^3/uL (0.0-0.8); Eosinophils % 3.5 %; Hematocrit 33.7 % (42.0-52.0); Hemoglobin 10.8 g/dL (11.7-16.6); Lymphocytes # 1.8 10^3/uL (0.8-4.8); Lymphocytes % 21.6 %; Mean Corpuscular Hemoglobin 22.1 pg (28.0-34.0); Mean Corpuscular Volume 68.9 fl (80-94); Monocytes % 12.1 %; Neutrophils # 5.15 10^3/uL (1.8-7.7); Neutrophils % 61.8 %; Nucleated Red Blood Cells % 0 %; Platelet Count 239 10^3/cmm (130-400); Red Blood Count 4.89 10^6/uL (4.1-5.3); Red Cell Distribution Width 17.1 % (12.1-15.1); White Blood Count 8.3 10^3/uL (4.0-10.0)
--- NOTE | 2022-03-30 18:19 | PC.NURSE ---
pt is on constant cardiac monitoring and spo2
[2022-03-30 18:31] LABS: D Dimer <= 0.27 ug/mIFEU (0-0.59)
[2022-03-30 18:42] LABS: Troponin(5th) Baseline 175 ng/L (0-15)
[2022-03-30 18:47] LABS: Alanine Aminotransferase 7 U/L (0-41); Albumin Level 4.2 g/dL (3.5-5.2); Alkaline Phosphatase 81 U/L (40-130); Aspartate Amino Transferase 10 U/L (0-40); Blood Urea Nitrogen 16 mg/dL (6-20); Calcium 9.4 mg/dL (8.5-10.5); Carbon Dioxide 28 mmol/L (22-29); Chloride 101 mmol/L (98-107); Globulin 2.8 g/dL (1.3-4.6); Glomerular Filtration Rate 81.2 mL/min (90-130); Glucose 100 mg/dL (65-115); NT Pro B Type Natriuretic Pept 323 pg/mL (0-125); Osmolality Calculated 287 mOsm/kg (285-295); Sodium 138 mmol/L (136-145); Total Bilirubin 0.3 mg/dL (0.15-1.2)
[2022-03-30] MEDS: sodium chloride 0.9% 1,000 ML 999 ML IV (19:01)
[2022-03-30 19:11] VITALS: PULSE 90; RESP 18; O2SAT 99
[2022-03-30] MEDS: ipratropium-albuterol 3 mL Neb INHALATION (19:13)
[2022-03-30 19:16] VITALS: PULSE 96
[2022-03-30] MEDS: acetaminophen 325 mg Tablet 650 MG PO (20:02)
[2022-03-30 20:39] VITALS: BP 146/97; PULSE 95; RESP 16; TEMP 36.7; O2SAT 98
[2022-03-30 20:42] LABS: Troponin 5 2HR 172.6 ng/L (0-15); Troponin 5 2HR Delta -2.4 ABS# (0-10)
== END 2022-03-30 20:41 | disposition home or self-care (01) ==
PROVIDERS: Emergency Provider Student in an Organized Health Care Education/Training Program; PCP Internal Medicine
DX: R07.9 Chest pain, unspecified (principal); I10 Essential (primary) hypertension; I25.10 Atherosclerotic heart disease of native coronary artery without angina pectoris; E11.9 Type 2 diabetes mellitus without complications; Z79.82 Long term (current) use of aspirin; Z79.4 Long term (current) use of insulin; Z86.73 Personal history of transient ischemic attack (TIA), and cerebral infarction without residual deficits
CPT/HCPCS: 71045; 80053; 83880; 84484; 85025; 85378; 93005; 94640; 96360; 99285; J7030

== ENCOUNTER 2022-04-03 14:09 | Emergency (ER) | payer MEDICAID, SELFPAY ==
[2022-04-03 14:19] VITALS: BP 127/73; PULSE 85; RESP 18; TEMP 36.8; O2SAT 99; BMI 22.6
--- NOTE | 2022-04-03 14:29 | ECG_ITS ---
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 Measurements Intervals [place] Rate: 82 P: 71 IN: 148 QRS: 70 QRSD: 87 T: 65 QT: 334 QTc: 391 Interpretive Statements SINUS RHYTHM VOLTAGE CRITERIA FOR LVH [MEETS CRITERIA IN ONE OF: R(aVL), S(V1), R(V5), R(V5/V6)+S(V1)] Compared to ECG 03/30/2022 17:51:07 Sinus tachycardia no longer present Electronically Signed On 04-05-2022 22:03:28 CDT by Heath Pacheco M.D. [id number]
[2022-04-03 15:29] LABS: Basophils % 0.4 %; Eosinophils # 0.1 10^3/uL (0.0-0.8); Eosinophils % 1.4 %; Hematocrit 34.3 % (42.0-52.0); Hemoglobin 10.4 g/dL (11.7-16.6); Lymphocytes # 1.9 10^3/uL (0.8-4.8); Mean Corpuscular HGB Conc 30.3 g/dL (30.0-36.0); Mean Corpuscular Hemoglobin 21.3 pg (28.0-34.0); Mean Corpuscular Volume 70.3 fl (80-94); Mean Platelet Volume 11.9 fL (7.4-10.4); Monocytes # 0.8 10^3/uL (0.2-0.9); Monocytes % 10.8 %; Nucleated Red Blood Cells % 0 %; Platelet Count 285 10^3/cmm (130-400); Red Blood Count 4.88 10^6/uL (4.1-5.3); Red Cell Distribution Width 17.6 % (12.1-15.1)
[2022-04-03 15:50] LABS: Alanine Aminotransferase 10 U/L (0-41); Albumin Level 4.3 g/dL (3.5-5.2); Alkaline Phosphatase 70 U/L (40-130); Blood Urea Nitrogen 11 mg/dL (6-20); Calcium 9.1 mg/dL (8.5-10.5); Carbon Dioxide 22 mmol/L (22-29); Chloride 104 mmol/L (98-107); Globulin 3.2 g/dL (1.3-4.6); Glomerular Filtration Rate 91.7 mL/min (90-130); Glucose 93 mg/dL (65-115); Osmolality Calculated 287 mOsm/kg (285-295); Sodium 139 mmol/L (136-145); Total Bilirubin 0.3 mg/dL (0.15-1.2); Total Protein 7.5 g/dL (6.6-8.7)
[2022-04-03 15:52] LABS: Troponin(5th) Baseline 31 ng/L (0-15)
[2022-04-03 16:19] LABS: Anion Gap 16.8 (5-19)
[2022-04-03 16:20] LABS: Aspartate Amino Transferase 14 U/L (0-40); Potassium 3.8 mmol/L (3.5-5.1)
[2022-04-03 17:46] LABS: Troponin 5 2HR 30.11 ng/L (0-15)
[2022-04-03 17:50] LABS: Troponin 5 2HR Delta -0.89 ABS# (0-10)
--- NOTE | 2022-04-03 18:05 | W.ED.CHESTPA ---
HPI - Chest Pain General: Chief Complaint: Chest Pain Stated Complaint: chest pain Time Seen by Provider: 04/03/22 18:02 Source: patient Mode of arrival: ambulatory Limitations: no limitations History of Present Illness: 46-year-old male who is very well-known to the ER patient states he been having chest pain left side of his chest throughout the day. States pain is a 5 out of 10 denies any shortness of breath denies any cough denies any worsening improving factors. Denies any vomiting diarrhea. Associated symptoms: Deny abdominal pain, dyspnea, fever(s), nausea or vomiting Review of Systems Const: Denies: fever(s), chills, body aches or change in appetite Eyes: Denies: blurry vision or eye discomfort ENMT: Denies: throat pain or dental pain Card: Reports: chest pain Resp: Denies: dyspnea GI: Denies: abdominal pain, nausea, vomiting or diarrhea : Denies: dysuria Musc: Denies: neck pain or back pain Skin/Breast: Denies: rash Neuro: Denies: headache(s) Psych: Denies: depression [place]/Lymph: Denies: easy bruising All/Imm: Denies: urticaria PFSH ED PFSH: Medical History (Updated 04/03/22 @ 18:06 by Jb Jaime MD) Angina pectoris, unstable Benign essential HTN Bipolar disorder without psychotic features Bradycardia CAD (coronary artery disease) 9stents Chest pain CVA (cerebrovascular accident) Diabetes Dyslipidemia (high LDL; low HDL) Former smoker HTN (hypertension) Vasovagal episode Surgical History History of appendectomy Family History Other No pertinent family history Social History Smoking and tobacco status: former smoker Alcohol intake: never Housing: House Physical Exam Const: COMMON NORMALS: no acute distress, patient oriented x3 and healthy appearing HENMT: COMMON NORMALS: normocephalic and atraumatic HEAD & SCALP: normocephalic and atraumatic Eye: COMMON NORMALS: Equal, round and reactive pupils present and EOMs intact bilaterally PUPIL: Yes Equal, round and reactive pupils present Neck/C-Spine: COMMON NORMALS: full ROM and supple Chest: COMMONS NORMALS: normal inspection of the chest and normal palpation of entire chest wall Resp: COMMON NORMALS: normal respiratory effort, No retractions, No use of accessory muscles and clear to auscultation bilaterally AUSCULTATION: clear to auscultation bilaterally Cardio: COMMON NORMALS: regular rate, regular rhythm and No murmurs present (Cardio) RATE: regular rate RHYTHM: regular rhythm GI: COMMON NORMALS: Normal to inspection, nondistended, normoactive bowel sounds present, Soft to palpation, non-tender and no masses PALPATION: Yes Soft to palpation Extremity: COMMON NORMALS: normal to inspection and full ROM Neuro: COMMON NORMALS: patient oriented x3, moves all extremities and no focal motor deficits Psych: COMMON NORMALS: mental status grossly normal, Normal thought process present and cooperative THOUGHT PROCESS: Normal thought process present Skin: COMMON NORMALS: no rashes or lesions noted and no wounds GENERAL SKIN EXAM: no rashes or lesions noted Course Vital Signs: Vital signs: Vital Signs Temperature 98.2 F 04/03/22 14:19 Pulse Rate 85 04/03/22 14:19 Respiratory Rate 18 04/03/22 14:19 Blood Pressure 127/73 04/03/22 14:19 Pulse Oximetry 99 04/03/22 14:19 Oxygen Delivery Me thod 04/03/22 14:19 MDM - Chest Pain Medical Decision Making Patient presents for chest pain he did have a recent cath that was negative. Patient's troponins are normal here as well he is stable for discharge he is to follow-up with PCP and return if worsening. Lab Data : 04/03/22 15:11 04/03/22 15:11 Laboratory Results WBC 7.0 10^3/uL (4.0-10.0) 04/03/22 15:11 RBC 4.88 10^6/uL (4.1-5.3) 04/03/22 15:11 Hgb 10.4 g/dL (11.7-16.6) L 04/03/22 15:11 Hct 34.3 % (42.0-52.0) L 04/03/22 15:11 MCV 70.3 fl (80-94) L 04/03/22 15:11 MCH 21.3 pg (28.0-34.0) L 04/03/22 15:11 MCHC 30.3 g/dL (30.0-36.0) 04/03/22 15:11 RDW 17.6 % (12.1-15.1) H 04/03/22 15:11 Plt Count 285 10^3/cmm (130-400) 04/03/22 15:11 MPV 11.9 fL (7.4-10.4) H 04/03/22 15:11 Neut % (Auto) 60.0 % 04/03/22 15:11 Lymph % (Auto) 27.0 % 04/03/22 15:11 [place] % (Auto) 10.8 % 04/03/22 15:11 Eos % (Auto) 1.4 % 04/03/22 15:11 Baso % (Auto) 0.4 % 04/03/22 15:11 Neut # (Auto) 4.20 10^3/uL (1.8-7.7) 04/03/22 15:11 Lymph # (Auto) 1.9 10^3/uL (0.8-4.8) 04/03/22 15:11 [place] # (Auto) 0.8 10^3/uL (0.2-0.9) 04/03/22 15:11 Eos # (Auto) 0.1 10^3/uL (0.0-0.8) 04/03/22 15:11 Baso # (Auto) 0.0 10^3/uL (0.0-0.1) 04/03/22 15:11 Nucleated RBC % (auto) 0 % 04/03/22 15:11 Nucleated RBCs # 0.0 /100WBC 04/03/22 15:11 Sodium 139 mmol/L (136-145) 04/03/22 15:11 Potassium 3.8 mmol/L (3.5-5.1) 04/03/22 15:11 Chloride 104 mmol/L (98-107) 04/03/22 15:11 Carbon Dioxide 22 mmol/L (22-29) 04/03/22 15:11 Anion Gap 16.8 (5-19) 04/03/22 15:11 BUN 11 mg/dL (6-20) 04/03/22 15:11 Creatinine 0.9 mg/dL (0.7-1.2) 04/03/22 15:11 GFR Calculation 91.7 mL/min (90-130) 04/03/22 15:11 Glucose 93 mg/dL (65-115) 04/03/22 15:11 Calculated Osmolality 287 mOsm/kg (285-295) 04/03/22 15:11 Calcium 9.1 mg/dL (8.5-10.5) 04/03/22 15:11 Total Bilirubin 0.3 mg/dL (0.15-1.2) 04/03/22 15:11 AST 14 U/L (0-40) 04/03/22 15:11 ALT 10 U/L (0-41) 04/03/22 15:11 Alkaline Phosphatase 70 U/L (40-130) 04/03/22 15:11 Troponin T Baseline 31 ng/L (0-15) H 04/03/22 15:11 Troponin T 120 Minute 30.11 ng/L (0-15) H 04/03/22 17:18 Delta Troponin T -0.89 ABS# (0-10) L 04/03/22 17:18 Total Protein 7.5 g/dL (6.6-8.7) 04/03/22 15:11 Albumin 4.3 g/dL (3.5-5.2) 04/03/22 15:11 Globulin 3.2 g/dL (1.3-4.6) 04/03/22 15:11 Discharge Plan Discharge Patient Disposition: Home Clinical Impression: Atypical chest pain Condition: Stable Prescriptions: No Action [id number]-qhmrxbustvpsw-[id number] 50-325-40 mg tablet 2 tab PO BID PRN (Reason: Migraine Headache) Hold Instructions: interaction with aspirin albuterol sulfate [ProAir HFA] 90 mcg/actuation HFA aerosol inhaler 2 puff INHALATION Q4H PRN (Reason: Shortness Of Breath) 1 Days Qty: 30 0RF hydroxyzine HCl 25 mg tablet 25 mg PO BID PRN (Reason: nausea and vomiting) insulin glargine [Lantus Solostar U-100 Insulin] 100 unit/mL (3 mL) insulin pen 5 unit SUBCUT BEDTIME Qty: 15 0RF insulin aspart U-100 [Novolog Flexpen U-100 Insulin] 100 unit/mL (3 mL) insulin pen See Rx Instructions .ROUTE .COMPLEX Qty: 15 0RF Rx Instructions: Inject, 3 times daily, after meals, based on sliding scale provided ondansetron HCl 4 mg tablet 4 mg PO Q6H PRN (Reason: nausea and vomiting) Qty: 20 0RF escitalopram oxalate 10 mg Tablet 10 mg PO DAILY 30 Days Qty: 30 1RF atorvastatin 40 mg tablet 40 mg PO BEDTIME 30 Days Qty: 30 1RF aspirin 81 mg Tablet,Delayed Release (Dr/Ec) 81 mg PO QAM 30 Days Qty: 30 1RF nitroglycerin [Nitrostat] 0.4 mg Tablet, Sublingual 0.4 mg SUBLINGUAL Q5M PRN (Reason: Chest Pain) 30 Days Qty: 60 1RF Rx Instructions: do not exceed 3 doses per episode cyclobenzaprine 10 mg tablet 10 mg PO BID PRN (Reason: muscle spasm) Qty: 20 0RF acetaminophen 500 mg tablet 500 mg PO Q6H PRN (Reason: pain) Qty: 30 0RF clopidogrel [Plavix] 75 mg tablet 75 mg PO DAILY Qty: 30 0RF baclofen 10 mg tablet 10 mg PO Q8H PRN (Reason: muscle spasm) Qty: 10 0RF Reglan 10 mg tablet 10 mg PO QID PRN (Reason: Nausea) quetiapine 50 mg tablet 50 mg PO BEDTIME ranolazine 500 mg tablet extended release 12 hr 500 mg PO Q12H amlodipine 5 mg Tablet 5 mg PO DAILY Qty: 30 0RF ibuprofen 400 mg tablet 400 mg PO Q8H 7 Days Qty: 21 0RF isosorbide mononitrate 60 mg tablet extended release 24 hr 60 mg PO BID Qty: 30 0RF Discharge Orders: Discharge ED (Routine); Ordered 04/03/22 Ordered By: Jb Jaime Referrals: Cecily Miller MD [Primary Care Provider] - Discharge Diet: Advance as tolerated Discharge Activity: Resume usual activity Patient Instructions: Chest Pain (ED) Coding Level of Care Code ED Drier And Evaporator Operator for Marcelino Stephen
== END 2022-04-03 18:12 | disposition home or self-care (01) ==
PROVIDERS: Emergency Medicine; Emergency Provider Emergency Medicine; PCP Internal Medicine
DX: R07.89 Other chest pain (principal); Z79.4 Long term (current) use of insulin; Z79.82 Long term (current) use of aspirin; Z79.02 Long term (current) use of antithrombotics/antiplatelets; Z87.891 Personal history of nicotine dependence; I10 Essential (primary) hypertension; I25.10 Atherosclerotic heart disease of native coronary artery without angina pectoris; Z86.73 Personal history of transient ischemic attack (TIA), and cerebral infarction without residual deficits; E11.9 Type 2 diabetes mellitus without complications; E78.5 Hyperlipidemia, unspecified
CPT/HCPCS: 80053; 84484; 85025; 93005; 99285

== ENCOUNTER 2022-04-10 14:14 | Emergency (ER) | payer MEDICAID, SELFPAY ==
[2022-04-10 14:31] VITALS: BP 125/77; PULSE 99; RESP 15; TEMP 36.8; O2SAT 99; BMI 20.9
[2022-04-10 14:46] VITALS: BP 128/74; PULSE 99; RESP 15; O2SAT 99
--- NOTE | 2022-04-10 14:59 | ECG_ITS ---
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 Measurements Intervals [place] Rate: 94 P: 70 DC: 133 QRS: 69 QRSD: 92 T: 62 QT: 327 QTc: 411 Interpretive Statements SINUS RHYTHM LEFT VENTRICULAR HYPERTROPHY AND ST-T CHANGE [VOLTAGE CRITERIA PLUS ST/T ABNORMALITY] Compared to ECG 04/03/2022 14:23:54 ST (T wave) deviation now present Electronically Signed On 04-10-2022 16:50:14 CDT by Anatoliy Jean Baptiste M.D. [id number]
--- NOTE | 2022-04-10 15:43 | ED_ITS ---
HPI - Chest Pain General: Chief Complaint: Chest Pain Stated Complaint: Chest Pain Time Seen by Provider: 04/10/22 14:50 Source: patient Mode of arrival: ambulatory History of Present Illness: 46-year-old male who has frequently been to our facility. So far this year he has had a total of 5 angiograms 31 chest x-rays 15 CTs of the head and 2 abdominal CTs. I believe he is also been TPAs on 2 separate occasions because of concern of stroke. His most recent angiograms were in August and finally March 27 of this year. All of which were normal. He presents today complaining of left-sided chest pain. MD complaint: chest pain Onset (ago): hour(s) Timing of current episode: episodic Prior episodes: Yes Onset: during rest Pain location: left chest Pain radiation: none Severity: severe (Per patient description) Relieving factors: nothing Exacerbating factors: nothing Associated symptoms: Deny abdominal pain, diaphoresis, dyspnea, fever(s), leg edema, nausea, palpitations, sense of impending doom, syncope or vomiting Treatment prior to arrival: none Review of Systems Const: Denies: fever(s), chills, fatigue, malaise or diaphoresis ENMT: Denies: throat pain, ear or mastoid pain, nasal discharge or nasal congestion Card: Reports: chest pain; Denies: palpitations, irregular heart rhythm, edema or syncope Resp: Denies: dyspnea GI: Denies: abdominal pain, nausea or vomiting : Denies: flank pain, dysuria, urinary frequency or urinary urgency Skin/Breast: Denies: rash or pruritus [facility] ED PFSH: Medical History Angina pectoris, unstable Benign essential HTN Bipolar disorder without psychotic features Bradycardia CAD (coronary artery disease) 9stents Chest pain CVA (cerebrovascular accident) Diabetes Dyslipidemia (high LDL; low HDL) Former smoker HTN (hypertension) Vasovagal episode Surgical History History of appendectomy Family History Other No pertinent family history Social History Smoking and tobacco status: former smoker Alcohol intake: never Housing: House Physical Exam Const: GENERAL APPEARANCE: cooperative and comfortable ORIENTATION/CONSCIOUSNESS: Yes awake, Yes oriented to person, Yes oriented to place and Yes oriented to time HENMT: COMMON NORMALS: normocephalic, atraumatic and hearing grossly normal bilaterally HEAD & SCALP: normocephalic and atraumatic Resp: COMMON NORMALS: normal respiratory effort, No retractions, No use of accessory muscles and clear to auscultation bilaterally AUSCULTATION: clear to auscultation bilaterally Cardio: COMMON NORMALS: regular rate, regular rhythm and No murmurs present (Cardio) RATE: regular rate RHYTHM: regular rhythm GI: COMMON NORMALS: Soft to palpation and No hepatosplenomegaly present AUSCULTATION: Yes normoactive bowel sounds PALPATION: Yes Soft to palpation, No Tenderness to palpation present (GI), No Guarding due to palpation present (GI) and Yes No hepatosplenomegaly present Extremity: COMMON NORMALS: normal to inspection, capillary refill normal, no clubbing, cyanosis or edema, no calf tenderness and no pedal edema Neuro: SENSORIUM/ORIENTATION: Yes oriented to person, Yes oriented to place and Yes oriented to time Skin: COMMON NORMALS: no rashes or lesions noted GENERAL SKIN EXAM: no rashes or lesions noted Course Vital Signs: Vital signs: Vital Signs Temperature 98.3 F 04/10/22 14:31 Pulse Rate 99 04/10/22 14:46 Respiratory Rate 15 04/10/22 14:46 Blood Pressure 151/76 04/10/22 15:46 Pulse Oximetry 99 04/10/22 14:46 Oxygen Delivery Sc thod 04/10/22 14:46 MDM - Chest Pain Medical Decision Making At this point I honestly believe iatrogenic misadventure may be a greater risk to this patient than coronary artery disease. I discussed this with the patient advised him that he had multiple angiograms of difficulty believe that in just a short course of a couple of weeks he has developed new coronary artery disease. Shortly after this his chest pain resolved he was anxious to go home he was discharged home have him follow-up with his primary care doctor. Medical Records I reviewed the patient's medical records. Lab Data I reviewed the patient's lab results. Discharge Plan Discharge Patient Disposition: Home Clinical Impression: Atypical chest pain Condition: Stable Prescriptions: No Action kfypchufxe-myzyyocvdxmzl-gklm 50-325-40 mg tablet 2 tab PO BID PRN (Reason: Migraine Headache) Hold Instructions: interaction with aspirin albuterol sulfate [ProAir HFA] 90 mcg/actuation HFA aerosol inhaler 2 puff INHALATION Q4H PRN (Reason: Shortness Of Breath) 1 Days Qty: 30 0RF hydroxyzine HCl 25 mg tablet 25 mg PO BID PRN (Reason: nausea and vomiting) insulin glargine [Lantus Solostar U-100 Insulin] 100 unit/mL (3 mL) insulin pen 5 unit SUBCUT BEDTIME Qty: 15 0RF insulin aspart U-100 [Novolog Flexpen U-100 Insulin] 100 unit/mL (3 mL) insulin pen See Rx Instructions .ROUTE .COMPLEX Qty: 15 0RF Rx Instructions: Inject, 3 times daily, after meals, based on sliding scale provided ondansetron HCl 4 mg tablet 4 mg PO Q6H PRN (Reason: nausea and vomiting) Qty: 20 0RF escitalopram oxalate 10 mg Tablet 10 mg PO DAILY 30 Days Qty: 30 1RF atorvastatin 40 mg tablet 40 mg PO BEDTIME 30 Days Qty: 30 1RF aspirin 81 mg Tablet,Delayed Release (Dr/Ec) 81 mg PO QAM 30 Days Qty: 30 1RF nitroglycerin [Nitrostat] 0.4 mg Tablet, Sublingual 0.4 mg SUBLINGUAL Q5M PRN (Reason: Chest Pain) 30 Days Qty: 60 1RF Rx Instructions: do not exceed 3 doses per episode cyclobenzaprine 10 mg tablet 10 mg PO BID PRN (Reason: muscle spasm) Qty: 20 0RF acetaminophen 500 mg tablet 500 mg PO Q6H PRN (Reason: pain) Qty: 30 0RF clopidogrel [Plavix] 75 mg tablet 75 mg PO DAILY Qty: 30 0RF baclofen 10 mg tablet 10 mg PO Q8H PRN (Reason: muscle spasm) Qty: 10 0RF Reglan 10 mg tablet 10 mg PO QID PRN (Reason: Nausea) quetiapine 50 mg tablet 50 mg PO BEDTIME ranolazine 500 mg tablet extended release 12 hr 500 mg PO Q12H amlodipine 5 mg Tablet 5 mg PO DAILY Qty: 30 0RF isosorbide mononitrate 60 mg tablet extended release 24 hr 60 mg PO BID Qty: 30 0RF Discharge Orders: Discharge ED (Routine); Ordered 04/10/22 Ordered By: Kam Martinez Referrals: Cecily Miller MD [Primary Care Provider] - Patient Instructions: Opioid Safety, Pain Management Activity Restrictions/Additional Instructions: Follow-up with your primary care doctor as needed. Coding Level of Care Code ED Erosion Control Specialist for Marcelino Stephen
[2022-04-10 15:46] VITALS: BP 151/76
--- NOTE | 2022-04-10 15:58 | PC.NURSE ---
Pt got mad because he was not going to get narcotic pain meds and left AMA
== END 2022-04-10 16:00 | disposition home or self-care (01) ==
PROVIDERS: Emergency Provider Family Medicine; PCP Internal Medicine
DX: R07.89 Other chest pain (principal); Z87.891 Personal history of nicotine dependence; I10 Essential (primary) hypertension; I25.10 Atherosclerotic heart disease of native coronary artery without angina pectoris; Z95.5 Presence of coronary angioplasty implant and graft; Z86.73 Personal history of transient ischemic attack (TIA), and cerebral infarction without residual deficits; E11.9 Type 2 diabetes mellitus without complications; E78.5 Hyperlipidemia, unspecified; Z79.4 Long term (current) use of insulin; Z79.82 Long term (current) use of aspirin
CPT/HCPCS: 93005; 99283

== ENCOUNTER 2022-04-12 22:29 | Emergency (ER) | payer MEDICAID, SELFPAY ==
--- NOTE | 2022-04-12 22:31 | ECG_ITS ---
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 Measurements Intervals Justin Rate: 99 P: 78 IA: 141 QRS: 80 QRSD: 83 T: 74 QT: 323 QTc: 416 Interpretive Statements SINUS RHYTHM LEFT VENTRICULAR HYPERTROPHY AND ST-T CHANGE [VOLTAGE CRITERIA PLUS ST/T ABNORMALITY] Compared to ECG 04/10/2022 14:28:41 No significant changes Electronically Signed On 04-13-2022 22:56:33 CDT by Regine Bar M.D. [id number]
[2022-04-12 22:40] VITALS: BP 111/72; PULSE 91; RESP 18; TEMP 37.1; O2SAT 98; BMI 21.7
[2022-04-12 22:43] VITALS: BP 189/119; PULSE 118; RESP 12; O2SAT 92
[2022-04-12 22:59] LABS: Basophils # 0.1 10^3/uL (0.0-0.1); Basophils % 0.5 %; Eosinophils # 0.5 10^3/uL (0.0-0.8); Eosinophils % 3.7 %; Hematocrit 36.2 % (42.0-52.0); Hemoglobin 11.6 g/dL (11.7-16.6); Lymphocytes # 2.6 10^3/uL (0.8-4.8); Lymphocytes % 20.1 %; Mean Corpuscular Hemoglobin 22.2 pg (28.0-34.0); Mean Corpuscular Volume 69.3 fl (80-94); Mean Platelet Volume 12.4 fL (7.4-10.4); Monocytes # 1.1 10^3/uL (0.2-0.9); Monocytes % 8.9 %; Neutrophils # 8.49 10^3/uL (1.8-7.7); Neutrophils % 66.3 %; Nucleated Red Blood Cells % 0 %; Platelet Count 368 10^3/cmm (130-400); Red Blood Count 5.22 10^6/uL (4.1-5.3); Red Cell Distribution Width 18.9 % (12.1-15.1); White Blood Count 12.8 10^3/uL (4.0-10.0)
--- NOTE | 2022-04-12 23:02 | ED_ITS ---
Documented by User: ELMER Sow 04/13/22 00:58 HPI - Chest Pain General: Chief Complaint: Chest Pain Stated Complaint: CP Time Seen by Provider: 04/12/22 22:50 History of Present Illness: 46-year-old male patient comes in [facility] for complaints of chest discomfort when lying down to go to sleep [facility]. Patient reports he has been working at the [employer] through the week and did not have any problems with his pain. Patient reports no cough or congestion. Patient does have a history of stent placement, vasovagal syncope, malingering, and hypertension. Associated symptoms: Deny dyspnea or fever(s) Review of Systems Const: Denies: fever(s) Card: Reports: chest pain Resp: Denies: dyspnea Musc: Denies: back pain or extremity pain PFSH ED PFSH: Medical History Angina pectoris, unstable Benign essential HTN Bipolar disorder without psychotic features Bradycardia CAD (coronary artery disease) 9stents Chest pain CVA (cerebrovascular accident) Diabetes Dyslipidemia (high LDL; low HDL) Former smoker HTN (hypertension) Vasovagal episode Surgical History History of appendectomy Family History Other No pertinent family history Social History Smoking and tobacco status: former smoker Alcohol intake: never Housing: House Physical Exam Const: COMMON NORMALS: alert HENMT: COMMON NORMALS: normocephalic HEAD & SCALP: normocephalic Neck/C-Spine: COMMON NORMALS: full ROM Chest: COMMONS NORMALS: normal palpation of entire chest wall CHEST: No crepitus Resp: COMMON NORMALS: normal respiratory effort and clear to auscultation bilaterally AUSCULTATION: clear to auscultation bilaterally Cardio: COMMON NORMALS: regular rate and regular rhythm RATE: regular rate RHYTHM: regular rhythm GI: AUSCULTATION: Yes normoactive bowel sounds : COMMON NORMALS: Yes no CVA tenderness BLADDER/KIDNEY EXAM: Yes no CVA tenderness Back/Pelvis: COMMON NORMALS: no CVA tenderness Extremity: COMMON NORMALS: no pedal edema Neuro: SENSORIUM/ORIENTATION: Yes alert Skin: COMMON NORMALS: turgor normal GENERAL SKIN EXAM: turgor normal Course Vital Signs: Vital signs: Vital Signs Temperature 98.7 F 04/12/22 22:40 Pulse Rate 76 04/13/22 02:32 Respiratory Rate 12 04/13/22 02:32 Blood Pressure 110/57 04/13/22 02:32 Pulse Oximetry 99 04/13/22 02:32 Oxygen Delivery Me thod 04/13/22 00:13 [facility] - Chest Pain Medical Decision Making Patient comes in tonight with complaints of mid chest pain. Patient reports pain started when he was lying down to go to sleep. Patient denies any chest pain throughout the week. 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 On exam respirations are even lungs are clear to auscultation. Abdomen soft nontender. Vital signs are normal. Differential diagnosis includes but not limited to GERD, anxiety, stable angina, ACS. Lab Data : 04/12/22 22:35 04/12/22 22:35 Radiology Impressions Chest X-Ray 04/12/22 23:44 IMPRESSION: No acute findings. Laboratory Results WBC 12.8 10^3/uL (4.0-10.0) H 04/12/22 22:35 RBC 5.22 10^6/uL (4.1-5.3) 04/12/22 22:35 Hgb 11.6 g/dL (11.7-16.6) L 04/12/22 22:35 Hct 36.2 % (42.0-52.0) L 04/12/22 22:35 MCV 69.3 fl (80-94) L 04/12/22 22:35 MCH 22.2 pg (28.0-34.0) L 04/12/22 22:35 MCHC 32.0 g/dL (30.0-36.0) 04/12/22 22:35 RDW 18.9 % (12.1-15.1) H 04/12/22 22:35 Plt Count 368 10^3/cmm (130-400) 04/12/22 22:35 MPV 12.4 fL (7.4-10.4) H 04/12/22 22:35 Neut % (Auto) 66.3 % 04/12/22 22:35 Lymph % (Auto) 20.1 % 04/12/22 22:35 [place] % (Auto) 8.9 % 04/12/22 22:35 Eos % (Auto) 3.7 % 04/12/22 22:35 Baso % (Auto) 0.5 % 04/12/22 22:35 Neut # (Auto) 8.49 10^3/uL (1.8-7.7) H 04/12/22 22:35 Lymph # (Auto) 2.6 10^3/uL (0.8-4.8) 04/12/22 22:35 [place] # (Auto) 1.1 10^3/uL (0.2-0.9) H 04/12/22 22:35 Eos # (Auto) 0.5 10^3/uL (0.0-0.8) 04/12/22 22:35 Baso # (Auto) 0.1 10^3/uL (0.0-0.1) 04/12/22 22:35 Nucleated RBC % (auto) 0 % 04/12/22 22:35 Nucleated RBCs # 0.0 /100WBC 04/12/22 22:35 ESR 5 mm/hr (0-10) 04/12/22 22:35 Sodium 139 mmol/L (136-145) 04/12/22 22:35 Potassium 4.5 mmol/L (3.5-5.1) 04/12/22 22:35 Chloride 102 mmol/L (98-107) 04/12/22 22:35 Carbon Dioxide 23 mmol/L (22-29) 04/12/22 22:35 Anion Gap 18.5 (5-19) 04/12/22 22:35 BUN 18 mg/dL (6-20) 04/12/22 22:35 Creatinine 1.0 mg/dL (0.7-1.2) 04/12/22 22:35 GFR Calculation 81.2 mL/min (90-130) L 04/12/22 22:35 Glucose 84 mg/dL (65-115) 04/12/22 22:35 Calculated Osmolality 289 mOsm/kg (285-295) 04/12/22 22:35 Calcium 9.9 mg/dL (8.5-10.5) 04/12/22 22:35 Total Bilirubin 0.2 mg/dL (0.15-1.2) 04/12/22 22:35 AST 15 U/L (0-40) 04/12/22 22:35 ALT 9 U/L (0-41) 04/12/22 22:35 Alkaline Phosphatase 91 U/L (40-130) 04/12/22 22:35 Troponin T Baseline 268 ng/L (0-15) H* 04/12/22 22:35 Troponin T 120 Minute 222.5 ng/L (0-15) H 04/13/22 00:08 Delta Troponin T -45.5 ABS# (0-10) L 04/13/22 00:08 C-Reactive Protein 3.0 mg/L (0.0-4.9) 04/12/22 22:35 NT-Pro-B Natriuret Pep 319 pg/mL (0-125) H 04/12/22 22:35 Total Protein 7.6 g/dL (6.6-8.7) 04/12/22 22:35 Albumin 4.8 g/dL (3.5-5.2) 04/12/22 22:35 Globulin 2.8 g/dL (1.3-4.6) 04/12/22 22:35 Discharge Plan Discharge Patient Disposition: Home Clinical Impression: Chest pain Condition: Stable Prescriptions: No Action ouajqekcdj-yikpcmjbsflql-yixk 50-325-40 mg tablet 2 tab PO BID PRN (Reason: Migraine Headache) Hold Instructions: interaction with aspirin albuterol sulfate [ProAir HFA] 90 mcg/actuation HFA aerosol inhaler 2 puff INHALATION Q4H PRN (Reason: Shortness Of Breath) 1 Days Qty: 30 0RF hydroxyzine HCl 25 mg tablet 25 mg PO BID PRN (Reason: nausea and vomiting) insulin glargine [Lantus Solostar U-100 Insulin] 100 unit/mL (3 mL) insulin pen 5 unit SUBCUT BEDTIME Qty: 15 0RF insulin aspart U-100 [Novolog Flexpen U-100 Insulin] 100 unit/mL (3 mL) insulin pen See Rx Instructions .ROUTE .COMPLEX Qty: 15 0RF Rx Instructions: Inject, 3 times daily, after meals, based on sliding scale provided ondansetron HCl 4 mg tablet 4 mg PO Q6H PRN (Reason: nausea and vomiting) Qty: 20 0RF escitalopram oxalate 10 mg Tablet 10 mg PO DAILY 30 Days Qty: 30 1RF atorvastatin 40 mg tablet 40 mg PO BEDTIME 30 Days Qty: 30 1RF aspirin 81 mg Tablet,Delayed Release (Dr/Ec) 81 mg PO QAM 30 Days Qty: 30 1RF nitroglycerin [Nitrostat] 0.4 mg Tablet, Sublingual 0.4 mg SUBLINGUAL Q5M PRN (Reason: Chest Pain) 30 Days Qty: 60 1RF Rx Instructions: do not exceed 3 doses per episode cyclobenzaprine 10 mg tablet 10 mg PO BID PRN (Reason: muscle spasm) Qty: 20 0RF acetaminophen 500 mg tablet 500 mg PO Q6H PRN (Reason: pain) Qty: 30 0RF clopidogrel [Plavix] 75 mg tablet 75 mg PO DAILY Qty: 30 0RF baclofen 10 mg tablet 10 mg PO Q8H PRN (Reason: muscle spasm) Qty: 10 0RF Reglan 10 mg tablet 10 mg PO QID PRN (Reason: Nausea) quetiapine 50 mg tablet 50 mg PO BEDTIME ranolazine 500 mg tablet extended release 12 hr 500 mg PO Q12H amlodipine 5 mg Tablet 5 mg PO DAILY Qty: 30 0RF isosorbide mononitrate 60 mg tablet extended release 24 hr 60 mg PO BID Qty: 30 0RF Discharge Orders: Discharge ED (Routine); Ordered 04/13/22 Ordered By: Pete Noguera Referrals: Cecily Miller MD [Primary Care Provider] - 4-7 days Patient Instructions: Chest Pain (ED), Opioid Safety, Pain Management Activity Restrictions/Additional Instructions: Follow-up with your doctor this coming week Coding Level of Care Code ED Bander Hand for Chg Fwd Exam Comprehensive Documented by User: Pete Noguera DO 04/14/22 11:10 HPI - Chest Pain General: Chief Complaint: Chest Pain Stated Complaint: CP Time Seen by Provider: 04/12/22 22:50 [facility] ED 2 PFSH: Medical History Angina pectoris, unstable Benign essential HTN Bipolar disorder without psychotic features Bradycardia CAD (coronary artery disease) 9stents Chest pain CVA (cerebrovascular accident) Diabetes Dyslipidemia (high LDL; low HDL) Former smoker HTN (hypertension) Vasovagal episode Surgical History History of appendectomy Family History Other No pertinent family history Social History Smoking and tobacco status: former smoker Alcohol intake: never Housing: House Course Vital Signs: Vital signs: Vital Signs Temperature 98.7 F 04/12/22 22:40 Pulse Rate 76 04/13/22 02:32 Respiratory Rate 12 04/13/22 02:32 Blood Pressure 110/57 04/13/22 02:32 Pulse Oximetry 99 04/13/22 02:32 Oxygen Delivery Me thod 04/13/22 00:13 MDM - Chest Pain Medical Decision Making Patient comes in tonight with complaints of mid chest pain. Patient reports pain started when he was lying down to go to sleep. Patient denies any chest pain throughout the week. 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 On exam respirations are even lungs are clear to auscultation. Abdomen soft nontender. Vital signs are normal. Differential diagnosis includes but not limited to GERD, anxiety, stable angina, ACS. Mr June has no acute SD changes on his EKG. His delta troponin is negative. This man has had five cardiac catheterizations in the past year, all of which are negative. His ESR and CRP are normal. He'll be allowed home. Lab Data : 04/12/22 22:35 04/12/22 22:35 Radiology Impressions Chest X-Ray 04/12/22 23:44 IMPRESSION: No acute findings. Laboratory Results WBC 12.8 10^3/uL (4.0-10.0) H 04/12/22 22:35 RBC 5.22 10^6/uL (4.1-5.3) 04/12/22 22:35 Hgb 11.6 g/dL (11.7-16.6) L 04/12/22 22:35 Hct 36.2 % (42.0-52.0) L 04/12/22 22:35 MCV 69.3 fl (80-94) L 04/12/22 22:35 MCH 22.2 pg (28.0-34.0) L 04/12/22 22:35 MCHC 32.0 g/dL (30.0-36.0) 04/12/22 22:35 RDW 18.9 % (12.1-15.1) H 04/12/22 22:35 Plt Count 368 10^3/cmm (130-400) 04/12/22 22:35 MPV 12.4 fL (7.4-10.4) H 04/12/22 22:35 Neut % (Auto) 66.3 % 04/12/22 22:35 Lymph % (Auto) 20.1 % 04/12/22 22:35 [place] % (Auto) 8.9 % 04/12/22 22:35 Eos % (Auto) 3.7 % 04/12/22 22:35 Baso % (Auto) 0.5 % 04/12/22:35 Neut # (Auto) 8.49 10^3/uL (1.8-7.7) H 04/12/22 22:35 Lymph # (Auto) 2.6 10^3/uL (0.8-4.8) 04/12/22 22:35 [place] # (Auto) 1.1 10^3/uL (0.2-0.9) H 04/12/22 22:35 Eos # (Auto) 0.5 10^3/uL (0.0-0.8) 04/12/22 22:35 Baso # (Auto) 0.1 10^3/uL (0.0-0.1) 04/12/22 22:35 Nucleated RBC % (auto) 0 % 04/12/22 22:35 Nucleated RBCs # 0.0 /100WBC 04/12/22 22:35 ESR 5 mm/hr (0-10) 04/12/22 22:35 Sodium 139 mmol/L (136-145) 04/12/22 22:35 Potassium 4.5 mmol/L (3.5-5.1) 04/12/22 22:35 Chloride 102 mmol/L (98-107) 04/12/22 22:35 Carbon Dioxide 23 mmol/L (22-29) 04/12/22 22:35 Anion Gap 18.5 (5-19) 04/12/22 22:35 BUN 18 mg/dL (6-20) 04/12/22 22:35 Creatinine 1.0 mg/dL (0.7-1.2) 04/12/22 22:35 GFR Calculation 81.2 mL/min (90-130) L 04/12/22 22:35 Glucose 84 mg/dL (65-115) 04/12/22 22:35 Calculated Osmolality 289 mOsm/kg (285-295) 04/12/22 22:35 Calcium 9.9 mg/dL (8.5-10.5) 04/12/22 22:35 Total Bilirubin 0.2 mg/dL (0.15-1.2) 04/12/22 22:35 AST 15 U/L (0-40) 04/12/22 22:35 ALT 9 U/L (0-41) 04/12/22 22:35 Alkaline Phosphatase 91 U/L (40-130) 04/12/22 22:35 Troponin T Baseline 268 ng/L (0-15) H* 04/12/22 22:35 Troponin T 120 Minute 222.5 ng/L (0-15) H 04/13/22 00:08 Delta Troponin T -45.5 ABS# (0-10) L 04/13/22 00:08 C-Reactive Protein 3.0 mg/L (0.0-4.9) 04/12/22 22:35 NT-Pro-B Natriuret Pep 319 pg/mL (0-125) H 04/12/22 22:35 Total Protein 7.6 g/dL (6.6-8.7) 04/12/22 22:35 Albumin 4.8 g/dL (3.5-5.2) 04/12/22 22:35 Globulin 2.8 g/dL (1.3-4.6) 04/12/22 22:35 Discharge Plan Discharge Patient Disposition: Home Clinical Impression: Chest pain Condition: Stable Prescriptions: No Action ksiwjwwmso-mhhljisiwvbsw-vnso 50-325-40 mg tablet 2 tab PO BID PRN (Reason: Migraine Headache) Hold Instructions: interaction with aspirin albuterol sulfate [ProAir HFA] 90 mcg/actuation HFA aerosol inhaler 2 puff INHALATION Q4H PRN (Reason: Shortness Of Breath) 1 Days Qty: 30 0RF hydroxyzine HCl 25 mg tablet 25 mg PO BID PRN (Reason: nausea and vomiting) insulin glargine [Lantus Solostar U-100 Insulin] 100 unit/mL (3 mL) insulin pen 5 unit SUBCUT BEDTIME Qty: 15 0RF insulin aspart U-100 [Novolog Flexpen U-100 Insulin] 100 unit/mL (3 mL) insu cassidy pen See Rx Instructions .ROUTE .COMPLEX Qty: 15 0RF Rx Instructions: Inject, 3 times daily, after meals, based on sliding scale provided ondansetron HCl 4 mg tablet 4 mg PO Q6H PRN (Reason: nausea and vomiting) Qty: 20 0RF escitalopram oxalate 10 mg Tablet 10 mg PO DAILY 30 Days Qty: 30 1RF atorvastatin 40 mg tablet 40 mg PO BEDTIME 30 Days Qty: 30 1RF aspirin 81 mg Tablet,Delayed Release (Dr/Ec) 81 mg PO QAM 30 Days Qty: 30 1RF nitroglycerin [Nitrostat] 0.4 mg Tablet, Sublingual 0.4 mg SUBLINGUAL Q5M PRN (Reason: Chest Pain) 30 Days Qty: 60 1RF Rx Instructions: do not exceed 3 doses per episode cyclobenzaprine 10 mg tablet 10 mg PO BID PRN (Reason: muscle spasm) Qty: 20 0RF acetaminophen 500 mg tablet 500 mg PO Q6H PRN (Reason: pain) Qty: 30 0RF clopidogrel [Plavix] 75 mg tablet 75 mg PO DAILY Qty: 30 0RF baclofen 10 mg tablet 10 mg PO Q8H PRN (Reason: muscle spasm) Qty: 10 0RF Reglan 10 mg tablet 10 mg PO QID PRN (Reason: Nausea) quetiapine 50 mg tablet 50 mg PO BEDTIME ranolazine 500 mg tablet extended release 12 hr 500 mg PO Q12H amlodipine 5 mg Tablet 5 mg PO DAILY Qty: 30 0RF isosorbide mononitrate 60 mg tablet extended release 24 hr 60 mg PO BID Qty: 30 0RF Discharge Orders: Discharge ED (Routine); Ordered 04/13/22 Ordered By: Pete Noguera Referrals: Cecily Miller MD [Primary Care Provider] - 4-7 days Patient Instructions: Chest Pain (ED), Opioid Safety, Pain Management Activity Restrictions/Additional Instructions: Follow-up with your doctor this coming week Coding Level of Care Code ED Bander Hand for Chg Fwd Exam Comprehensive
[2022-04-12] MEDS: HYDROcodone-acetaminophen 7.5-325 mg Tablet 1 TAB PO (23:11)
[2022-04-12 23:17] LABS: Slide Review Slide Review Perform
[2022-04-12 23:21] LABS: Troponin(5th) Baseline 268 ng/L (0-15)
[2022-04-12 23:25] LABS: Alanine Aminotransferase 9 U/L (0-41); Albumin Level 4.8 g/dL (3.5-5.2); Alkaline Phosphatase 91 U/L (40-130); Anion Gap 18.5 (5-19); Aspartate Amino Transferase 15 U/L (0-40); Blood Urea Nitrogen 18 mg/dL (6-20); Calcium 9.9 mg/dL (8.5-10.5); Carbon Dioxide 23 mmol/L (22-29); Chloride 102 mmol/L (98-107); Creatinine Clr Calc Pharmacy 83.6987; Globulin 2.8 g/dL (1.3-4.6); Glomerular Filtration Rate 81.2 mL/min (90-130); Glucose 84 mg/dL (65-115); NT Pro B Type Natriuretic Pept 319 pg/mL (0-125); Osmolality Calculated 289 mOsm/kg (285-295); Potassium 4.5 mmol/L (3.5-5.1); Sodium 139 mmol/L (136-145); Total Bilirubin 0.2 mg/dL (0.15-1.2); Total Protein 7.6 g/dL (6.6-8.7)
[2022-04-12] MEDS: aspirin 81 mg Chew Tablet 324 MG PO (23:40)
[2022-04-12] MEDS: nitroglycerin 1 gm/inch oint Pkt 1 INCH TOPICAL (23:41)
--- NOTE | 2022-04-12 23:44 | XRR_ITS ---
PROCEDURE INFORMATION: Exam: XR Chest Exam date and time: 04/12/2022 11:50 PM Age: 46 years old Clinical indication: Pain; Chest pressure; Additional info: Chest pain TECHNIQUE: Imaging protocol: Radiologic exam of the chest. Views: 1 view. COMPARISON: CR (CHEST, ) 03/30/2022 6:13 PM FINDINGS: Lungs: Unremarkable. No consolidation. Pleural spaces: Unremarkable. No pleural effusion. No pneumothorax. Heart/Mediastinum: Unremarkable. No cardiomegaly. Bones/joints: Unremarkable. XR/XR chest 1V portable [id number] IMPRESSION: No acute findings.
[2022-04-12 23:59] LABS: Erythrocyte Sedimentation Rate 5 mm/hr (0-10)
[2022-04-13 00:13] VITALS: BP 137/73; PULSE 86; RESP 14; O2SAT 99
--- NOTE | 2022-04-13 00:31 | ECG_ITS ---
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 Measurements Intervals [place] Rate: 76 P: 78 GA: 146 QRS: 84 QRSD: 90 T: 86 QT: 354 QTc: 400 Interpretive Statements SINUS RHYTHM MODERATE VOLTAGE CRITERIA FOR LVH, CONSIDER NORMAL VARIANT [MEETS CRITERIA IN ONE OF: R(aVL), S(V1), R(V5), R(V5/V6)+S(V1)] Compared to ECG 04/12/2022 22:47:43 ST (T wave) deviation no longer present Electronically Signed On 04-13-2022 23:08:26 CDT by Regine Bar M.D. [email or web address] Farmuniversity of mississippi medical centerBeauty Booked[facility].[employer]/store/[id number]
[2022-04-13 01:01] LABS: Troponin 5 2HR 222.5 ng/L (0-15)
[2022-04-13 02:00] VITALS: BP 110/57; PULSE 76; RESP 12; RESP 16; O2SAT 99
[2022-04-13] MEDS: oxyCODONE-APAP 5-325 mg Tablet 1 TAB PO (02:00)
[2022-04-13 02:32] VITALS: BP 110/57; PULSE 76; RESP 12; O2SAT 99
== END 2022-04-13 02:38 | disposition home or self-care (01) ==
PROVIDERS: Nurse Practitioner Family; Emergency Provider Emergency Medicine; PCP Internal Medicine
DX: R07.9 Chest pain, unspecified (principal); I10 Essential (primary) hypertension; I25.10 Atherosclerotic heart disease of native coronary artery without angina pectoris; Z86.73 Personal history of transient ischemic attack (TIA), and cerebral infarction without residual deficits
CPT/HCPCS: 71045; 80053; 83880; 84484; 85025; 85651; 86140; 93005; 99285

== ENCOUNTER 2022-04-17 22:06 | Emergency (ER) | payer MEDICAID, SELFPAY ==
[2022-04-17 22:26] VITALS: BP 142/81; PULSE 91; RESP 16; TEMP 36.7; O2SAT 99; BMI 21.7
--- NOTE | 2022-04-17 22:31 | ECG_ITS ---
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
[2022-04-17 23:13] VITALS: BP 144/66; PULSE 94; RESP 16; O2SAT 99
--- NOTE | 2022-04-17 23:18 | XRR_ITS ---
PROCEDURE INFORMATION: Exam: XR Chest Exam date and time: 04/17/2022 11:27 PM Age: 46 years old Clinical indication: Pain; Chest pressure; Additional info: Cp TECHNIQUE: Imaging protocol: Radiologic exam of the chest. Views: 1 view. COMPARISON: CR (CHEST, ) 04/12/2022 11:50 PM FINDINGS: Lungs: Unremarkable. No consolidation. Pleural spaces: Unremarkable. No pleural effusion. No pneumothorax. Heart/Mediastinum: Unremarkable. No cardiomegaly. Bones/joints: Unremarkable. XR/XR chest 1V portable [id number] IMPRESSION: No acute findings.
[2022-04-17 23:31] VITALS: BP 144/66; PULSE 94; RESP 15; O2SAT 99
[2022-04-17] MEDS: OLANZapine 10 mg ODT PO (23:31)
[2022-04-18 00:03] VITALS: BP 142/60; PULSE 105; RESP 16; O2SAT 99
[2022-04-18 00:22] VITALS: BP 138/71; PULSE 92; RESP 16; O2SAT 98
--- NOTE | 2022-04-18 03:38 | W.ED.CHESTPA ---
HPI - Chest Pain General: Chief Complaint: Chest Pain Stated Complaint: cp Time Seen by Provider: 04/17/22 22:53 Source: patient History of Present Illness: 46-year-old male well-known to the ER. I believe he has had a total of 7 visits in the last month. His last was last week, complaining of chest discomfort. He presents again this evening complaining of chest discomfort. He notes that he was at a Halloween green party, helping serve food, and went down with chest discomfort on the left side of his chest. A friend helped him into a car, and brought him here for evaluation. He complains of continued pain with some shortness of breath. No diaphoresis. No vomiting. No fever. MD complaint: chest pain Pertinent past history: other Onset (ago): hour(s) Timing of current episode: constant Prior episodes: Yes Onset: during rest Pain location: substernal Pain radiation: left arm Quality: sharp Relieving factors: nothing Exacerbating factors: nothing Associated symptoms: Reports dyspnea, nausea and palpitations; Deny abdominal pain, diaphoresis, fever(s), leg edema or vomiting Review of Systems Const: Denies: fever(s) or diaphoresis ENMT: Denies: throat pain Card: Reports: chest pain and palpitations Resp: Reports: dyspnea; Denies: productive cough or non-productive cough GI: Reports: nausea; Denies: abdominal pain or vomiting Musc: Reports: back pain Skin/Breast: Reports: rash Neuro: Reports: headache(s) Psych: Reports: anxiety PFSH ED PFSH: Medical History Angina pectoris, unstable Benign essential HTN Bipolar disorder without psychotic features Bradycardia CAD (coronary artery disease) 9stents Chest pain CVA (cerebrovascular accident) Diabetes Dyslipidemia (high LDL; low HDL) Former smoker HTN (hypertension) Vasovagal episode Surgical History History of appendectomy Family History Other No pertinent family history Social History Smoking and tobacco status: former smoker Alcohol intake: never Housing: House Physical Exam Const: COMMON NORMALS: no acute distress GENERAL APPEARANCE: cooperative and anxious HENMT: COMMON NORMALS: normocephalic, atraumatic and Normal external nose present HEAD & SCALP: normocephalic and atraumatic FACE & SINUS: normal facial exam and face symmetric NOSE: Normal external nose present Eye: COMMON NORMALS: Equal, round and reactive pupils present and EOMs intact bilaterally PUPIL: Yes Equal, round and reactive pupils present Neck/C-Spine: GENERAL: Yes trachea midline Chest: CHEST: Yes Symmetrical chest wall rise Resp: COMMON NORMALS: normal respiratory effort, No retractions, No use of accessory muscles and clear to auscultation bilaterally AUSCULTATION: clear to auscultation bilaterally Cardio: COMMON NORMALS: regular rate and regular rhythm RATE: regular rate RHYTHM: regular rhythm GI: COMMON NORMALS: Normal to inspection, nondistended, normoactive bowel sounds present Extremity: COMMON NORMALS: no pedal edema Neuro: JULIANO COMA SCALE: document GCS findings Juliano coma scale eye opening: Spontaneous Juliano coma scale verbal response: Orientated [place] coma scale motor response: Obey commands [place] coma scale total score: 15 SENSORY EXAM: Yes extremities (intact) Psych: COMMON NORMALS: speech normal SPEECH: Yes normal speech Skin: COMMON NORMALS: no rashes or lesions noted GENERAL SKIN EXAM: no rashes or lesions noted Course Vital Signs: Vital signs: Vital Signs Temperature 98.0 F 04/17/22 22:26 Pulse Rate 92 04/18/22 00:22 Respiratory Rate 16 04/18/22 00:22 Blood Pressure 138/71 04/18/22 00:22 Pulse Oximetry 98 04/18/22 00:22 Oxygen Delivery Me thod 04/18/22 00:03 [facility] - Chest Pain Medical Decision Making Mr. June has an EKG that shows a normal sinus rhythm, with a rate of 90, normal axis and intervals, and absolutely no acute ST changes whatsoever. There are no Q waves. His chest x-ray is normal as well. He has had multiple work-ups for his chest pain in the past, including 5 normal angiograms this year alone. I do not believe a further work-up on this gentleman is warranted. He was given Zyprexa here with some improvement. He will be allowed discharge home to follow-up with his PCP as an outpatient. Lab Data Radiology Impressions Chest X-Ray 04/17/22 23:18 IMPRESSION: No acute findings. Discharge Plan Discharge Patient Disposition: Home Clinical Impression: Chest pain Condition: Stable Prescriptions: No Action exjkntoesu-kayzvhbjpneml-gdnf 50-325-40 mg tablet 2 tab PO BID PRN (Reason: Migraine Headache) Hold Instructions: interaction with aspirin albuterol sulfate [ProAir HFA] 90 mcg/actuation HFA aerosol inhaler 2 puff INHALATION Q4H PRN (Reason: Shortness Of Breath) 1 Days Qty: 30 0RF hydroxyzine HCl 25 mg tablet 25 mg PO BID PRN (Reason: nausea and vomiting) insulin glargine [Lantus Solostar U-100 Insulin] 100 unit/mL (3 mL) insulin pen 5 unit SUBCUT BEDTIME Qty: 15 0RF insulin aspart U-100 [Novolog Flexpen U-100 Insulin] 100 unit/mL (3 mL) insulin pen See Rx Instructions .ROUTE .COMPLEX Qty: 15 0RF Rx Instructions: Inject, 3 times daily, after meals, based on sliding scale provided ondansetron HCl 4 mg tablet 4 mg PO Q6H PRN (Reason: nausea and vomiting) Qty: 20 0RF escitalopram oxalate 10 mg Tablet 10 mg PO DAILY 30 Days Qty: 30 1RF atorvastatin 40 mg tablet 40 mg PO BEDTIME 30 Days Qty: 30 1RF aspirin 81 mg Tablet,Delayed Release (Dr/Ec) 81 mg PO QAM 30 Days Qty: 30 1RF nitroglycerin [Nitrostat] 0.4 mg Tablet, Sublingual 0.4 mg SUBLINGUAL Q5M PRN (Reason: Chest Pain) 30 Days Qty: 60 1RF Rx Instructions: do not exceed 3 doses per episode cyclobenzaprine 10 mg tablet 10 mg PO BID PRN (Reason: muscle spasm) Qty: 20 0RF acetaminophen 500 mg tablet 500 mg PO Q6H PRN (Reason: pain) Qty: 30 0RF clopidogrel [Plavix] 75 mg tablet 75 mg PO DAILY Qty: 30 0RF baclofen 10 mg tablet 10 mg PO Q8H PRN (Reason: muscle spasm) Qty: 10 0RF Reglan 10 mg tablet 10 mg PO QID PRN (Reason: Nausea) quetiapine 50 mg tablet 50 mg PO BEDTIME ranolazine 500 mg tablet extended release 12 hr 500 mg PO Q12H amlodipine 5 mg Tablet 5 mg PO DAILY Qty: 30 0RF isosorbide mononitrate 60 mg tablet extended release 24 hr 60 mg PO BID Qty: 30 0RF Discharge Orders: Discharge ED (Routine); Ordered 04/18/22 Ordered By: Pete Noguera Referrals: Cecily Miller MD [Primary Care Provider] - 1-3 days Patient Instructions: Chest Pain (ED), Opioid Safety, Pain Management Activity Restrictions/Additional Instructions: See your doctor for follow-up Coding Level of Care Code ED Estimator And Drafter for Marcelino Stephen
== END 2022-04-18 00:23 | disposition home or self-care (01) ==
PROVIDERS: Emergency Provider Emergency Medicine; PCP Internal Medicine
DX: R07.9 Chest pain, unspecified (principal); Z79.02 Long term (current) use of antithrombotics/antiplatelets; Z79.4 Long term (current) use of insulin; Z79.82 Long term (current) use of aspirin; Z87.891 Personal history of nicotine dependence; I10 Essential (primary) hypertension; I25.10 Atherosclerotic heart disease of native coronary artery without angina pectoris; Z86.73 Personal history of transient ischemic attack (TIA), and cerebral infarction without residual deficits; E11.9 Type 2 diabetes mellitus without complications; E78.5 Hyperlipidemia, unspecified
CPT/HCPCS: 71045; 93005; 93010; 99284

== ENCOUNTER 2022-04-19 20:52 | Emergency (ER) | payer MEDICAID, SELFPAY ==
[2022-04-19 21:03] VITALS: BP 138/76; PULSE 106; RESP 16; TEMP 36.7; O2SAT 99
--- NOTE | 2022-04-19 21:09 | ECG_ITS ---
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 Measurements Intervals [place] Rate: 108 P: 72 OK: 147 QRS: 72 QRSD: 80 T: 69 QT: 301 QTc: 405 Interpretive Statements SINUS TACHYCARDIA MODERATE VOLTAGE CRITERIA FOR LVH, CONSIDER NORMAL VARIANT [MEETS CRITERIA IN ONE OF: R(aVL), S(V1), R(V5), R(V5/V6)+S(V1)] ABNORMAL RHYTHM ECG Compared to ECG 04/17/2022 22:37:05 No significant changes Electronically Signed On 04-20-2022 14:52:21 CDT by Richie Macias M.D. [id number]
--- NOTE | 2022-04-19 22:53 | XRR_ITS ---
PROCEDURE INFORMATION: Exam: XR Chest Exam date and time: 04/19/2022 11:00 PM Age: 46 years old Clinical indication: Pain; Chest pressure; Additional info: Cp TECHNIQUE: Imaging protocol: Radiologic exam of the chest. Views: 1 view. COMPARISON: CR (CHEST, ) 04/17/2022 11:27 PM FINDINGS: Lungs: Unremarkable. No consolidation. Pleural spaces: Unremarkable. No pleural effusion. No pneumothorax. Heart/Mediastinum: Unremarkable. No cardiomegaly. Bones/joints: Unremarkable. XR/XR chest 1V portable [id number] IMPRESSION: No acute findings.
--- NOTE | 2022-04-19 23:32 | W.ED.SEIZURE ---
Documented by User: OFELIA Ram 04/20/22 02:02 HPI - Seizure General: Chief Complaint: Seizure Stated Complaint: states he had 2 seizures and now has chest pain Time Seen by Provider: 04/19/22 22:35 History of Present Illness: HPI Narrative: Patient is a 46-year-old male comes to the ED with seizures. Patient says he has a history of seizures and takes Depakote for seizures. He ran out of his prescription for Depakote 2 weeks ago and has not been able to get it refilled. He states that his Depakote comes from Dr. He has in [place]. Tonight while laying in bed his told him he had 2 seizures where he had full body convulsions. After his seizures he started having some chest pain. Denies any fall or head trauma. Seizure History: Yes (Last year per patient, not taking) Place: Home Associated symptoms: Reports chest pain; Deny chills or fever(s) Review of Systems Const: Denies: fever(s), chills or fatigue Eyes: Denies: change in vision or eye discomfort ENMT: Denies: throat pain, odynophagia, nasal discharge or nasal congestion Card: Reports: chest pain; Denies: palpitations, edema, swelling of feet/ankles, dyspnea on exertion or orthopnea Resp: Denies: dyspnea, productive cough or non-productive cough GI: Denies: abdominal pain, nausea, vomiting, diarrhea, constipation or hematochezia : Denies: flank pain, difficulty urinating, dysuria or hematuria Musc: Denies: neck pain, back pain or extremity swelling Skin/Breast: Denies: rash or new lesions Neuro: Reports: seizure-like activity; Denies: headache(s), numbness in extremities or weakness in extremities PFS ED PFSH: Medical History Angina pectoris, unstable Benign essential HTN Bipolar disorder without psychotic features Bradycardia CAD (coronary artery disease) 9stents Chest pain CVA (cerebrovascular accident) Diabetes Dyslipidemia (high LDL; low HDL) Former smoker HTN (hypertension) Vasovagal episode Surgical History History of appendectomy Family History Other No pertinent family history Social History Smoking and tobacco status: former smoker Alcohol intake: never Housing: House Physical Exam Const: COMMON NORMALS: no acute distress, patient oriented x3 and alert GENERAL APPEARANCE: cooperative HENMT: COMMON NORMALS: normocephalic HEAD & SCALP: normocephalic MOUTH: Normal oral and palatal mucosa present THROAT: posterior oropharynx normal and uvula midline Eye: COMMON NORMALS: Equal, round and reactive pupils present and EOMs intact bilaterally GENERAL EYE: appearance normal, both eyes and all related structures PUPIL: Yes Equal, round and reactive pupils present Neck/C-Spine: COMMON NORMALS: supple GENERAL: Yes normal visual inspection Lymph: LYMPHATIC: no lymphadenopathy noted Resp: COMMON NORMALS: normal respiratory effort, No retractions, No use of accessory muscles and clear to auscultation bilaterally AUSCULTATION: clear to auscultation bilaterally Cardio: COMMON NORMALS: regular rate, regular rhythm, S1 normal heart sound present, S2 normal heart sound present, No gallops present (Cardio), No clicks present (Cardio), No murmurs present (Cardio) and Peripheral pulses 2+ throughout RATE: regular rate RHYTHM: regular rhythm HEART SOUNDS: S1 normal heart sound present and S2 normal heart sound present PERIPHERAL PULSES: Peripheral pulses 2+ throughout GI: COMMON NORMALS: Normal to inspection, nondistended, normoactive bowel sounds present, Soft to palpation, non-tender and no masses PALPATION: Yes Soft to palpation : COMMON NORMALS: Yes no CVA tenderness BLADDER/KIDNEY EXAM: Yes no CVA tenderness Back/Pelvis: COMMON NORMALS: no CVA tenderness Extremity: GENERAL: Yes normal exam except as noted Neuro: COMMON NORMALS: patient oriented x3, CN's II-XII intact bilaterally, moves all extremities, no focal motor deficits and no sensory deficits noted SENSORIUM/ORIENTATION: Yes alert SENSORY EXAM: Yes extremities (intact) MOTOR EXAM: 5/5 motor strength present throughout Skin: COMMON NORMALS: no rashes or lesions noted GENERAL SKIN EXAM: no rashes or lesions noted and dry skin Course Vital Signs: Vital signs: Vital Signs Temperature 98.1 F 04/19/22 21:03 Pulse Rate 79 04/20/22 00:40 Respiratory Rate 18 04/20/22 00:40 Blood Pressure 143/76 04/20/22 00:40 Pulse Oximetry 100 04/20/22 00:40 Oxygen Delivery Me thod 04/19/22 21:03 MDM - Seizure MDM Narrative Medical decision making narrative: Patient is a 46-year-old male comes to the ED after seizures. He states he had 2 seizures while sleeping tonight. EKG showed sinus tachycardia with heart rate of [address] is no [address] segment elevation or depression seen. Chest x-ray showed no acute findings. Patient states that he takes 10 mg of Depakote every 4 hours as needed for seizures, but this is not an option for Depakote dosing. After reviewing his history and past visits he said he was out of his Depakote at a visit here in the ED 3 months ago. we will encourage him to follow-up as an outpatient for obtaining his Depakote, as we do not have record of him taking it prior. Patient stable for discharge home and given his nightly dose of Seroquel before discharge home. Lab Data Labs: Radiology Impressions Chest X-Ray 04/19/22 22:53 IMPRESSION: No acute findings. Discharge Plan Discharge Patient Disposition: Home Clinical Impression: Generalized seizure Condition: Stable Prescriptions: No Action [id number]-[id number]-wfuf 50-325-40 mg tablet 2 tab PO BID PRN (Reason: Migraine Headache) Hold Instructions: interaction with aspirin albuterol sulfate [ProAir HFA] 90 mcg/actuation HFA aerosol inhaler 2 puff INHALATION Q4H PRN (Reason: Shortness Of Breath) 1 Days Qty: 30 0RF hydroxyzine HCl 25 mg tablet 25 mg PO BID PRN (Reason: nausea and vomiting) insulin glargine [Lantus Solostar U-100 Insulin] 100 unit/mL (3 mL) insulin pen 5 unit SUBCUT BEDTIME Qty: 15 0RF insulin aspart U-100 [Novolog Flexpen U-100 Insulin] 100 unit/mL (3 mL) insulin pen See Rx Instructions .ROUTE .COMPLEX Qty: 15 0RF Rx Instructions: Inject, 3 times daily, after meals, based on sliding scale provided ondansetron HCl 4 mg tablet 4 mg PO Q6H PRN (Reason: nausea and vomiting) Qty: 20 0RF escitalopram oxalate 10 mg Tablet 10 mg PO DAILY 30 Days Qty: 30 1RF atorvastatin 40 mg tablet 40 mg PO BEDTIME 30 Days Qty: 30 1RF aspirin 81 mg Tablet,Delayed Release (Dr/Ec) 81 mg PO QAM 30 Days Qty: 30 1RF nitroglycerin [Nitrostat] 0.4 mg Tablet, Sublingual 0.4 mg SUBLINGUAL Q5M PRN (Reason: Chest Pain) 30 Days Qty: 60 1RF Rx Instructions: do not exceed 3 doses per episode cyclobenzaprine 10 mg tablet 10 mg PO BID PRN (Reason: muscle spasm) Qty: 20 0RF acetaminophen 500 mg tablet 500 mg PO Q6H PRN (Reason: pain) Qty: 30 0RF clopidogrel [Plavix] 75 mg tablet 75 mg PO DAILY Qty: 30 0RF baclofen 10 mg tablet 10 mg PO Q8H PRN (Reason: muscle spasm) Qty: 10 0RF Reglan 10 mg tablet 10 mg PO QID PRN (Reason: Nausea) quetiapine 50 mg tablet 50 mg PO BEDTIME ranolazine 500 mg tablet extended release 12 hr 500 mg PO Q12H amlodipine 5 mg Tablet 5 mg PO DAILY Qty: 30 0RF isosorbide mononitrate 60 mg tablet extended release 24 hr 60 mg PO BID Qty: 30 0RF Discharge Orders: Discharge ED (Routine); Ordered 04/20/22 Ordered By: Haider Fan Referrals: Cecily Miller MD [Primary Care Provider] - Discharge Diet: Regular Discharge Activity: Increase activity as tolerated Patient Instructions: Seizures Activity Restrictions/Additional Instructions: Follow-up with medical provider as directed to get your prescription of Depakote refilled. Continue taking all home medications as previously prescribed. Return to the ER or your medical provider if condition worsens. Please read and understand discharge instructions. Thank you for choosing [facility] for your healthcare needs today. Please realize this is an emergency room and that we are providing you with a medical screening exam and this may not be complete and all inclusive of all the testing and or work up that you may need to determine your ailment or severity of your illness. It is very important that you follow up as instructed or that you return to the Emergency Department should you have concerns or if your condition changes or worsens in any way. Coding Level of Care Code ED Senior Agricultural Assistant for Chg Fwd Exam Comprehensive Documented by User: Pete Noguera DO 04/20/22 03:01 HPI - Seizure General: Chief Complaint: Seizure Stated Complaint: states he had 2 seizures and now has chest pain Time Seen by Provider: 04/19/22 22:35 PFS ED PFSH: Medical History Angina pectoris, unstable Benign essential HTN Bipolar disorder without psychotic features Bradycardia CAD (coronary artery disease) 9stents Chest pain CVA (cerebrovascular accident) Diabetes Dyslipidemia (high LDL; low HDL) Former smoker HTN (hypertension) Vasovagal episode Surgical History History of appendectomy Family History Other No pertinent family history Social History Smoking and tobacco status: former smoker Alcohol intake: never Housing: House Course Vital Signs: Vital signs: Vital Signs Temperature 98.1 F 04/19/22 21:03 Pulse Rate 79 04/20/22 00:40 Respiratory Rate 18 04/20/22 00:40 Blood Pressure 143/76 04/20/22 00:40 Pulse Oximetry 100 04/20/22 00:40 Oxygen Delivery Me thod 04/19/22 21:03 MDM - Seizure MDM Narrative Medical decision making narrative: Patient is a 46-year-old male comes to the ED after seizures. He states he had 2 seizures while sleeping tonight. EKG showed sinus tachycardia with heart rate of 108 but there is no ST segment elevation or depression seen. Chest x-ray showed no acute findings. Patient states that he takes 10 mg of Depakote every 4 hours as needed for seizures, but this is not an option for Depakote dosing. After reviewing his history and past visits he said he was out of his Depakote at a visit here in the ED 3 months ago. we will encourage him to follow-up as an outpatient for obtaining his Depakote, as we do not have record of him taking it prior. Patient stable for discharge home and given his nightly dose of Seroquel before discharge home. This patient was originally seen by Mr. Meng PA-C.? I agree with his history, evaluation, and treatment. Lab Data Labs: Radiology Impressions Chest X-Ray 04/19/22 22:53 IMPRESSION: No acute findings. Discharge Plan Discharge Patient Disposition: Home Clinical Impression: Generalized seizure Condition: Stable Prescriptions: No Action pxoqgsvlvg-jvamqqxmqexmf-lyib 50-325-40 mg tablet 2 tab PO BID PRN (Reason: Migraine Headache) Hold Instructions: interaction with aspirin albuterol sulfate [ProAir HFA] 90 mcg/actuation HFA aerosol inhaler 2 puff INHALATION Q4H PRN (Reason: Shortness Of Breath) 1 Days Qty: 30 0RF hydroxyzine HCl 25 mg tablet 25 mg PO BID PRN (Reason: nausea and vomiting) insulin glargine [Lantus Solostar U-100 Insulin] 100 unit/mL (3 mL) insulin pen 5 unit SUBCUT BEDTIME Qty: 15 0RF insulin aspart U-100 [Novolog Flexpen U-100 Insulin] 100 unit/mL (3 mL) insulin pen See Rx Instructions .ROUTE .COMPLEX Qty: 15 0RF Rx Instructions: Inject, 3 times daily, after meals, based on sliding scale provided ondansetron HCl 4 mg tablet 4 mg PO Q6H PRN (Reason: nausea and vomiting) Qty: 20 0RF escitalopram oxalate 10 mg Tablet 10 mg PO DAILY 30 Days Qty: 30 1RF atorvastatin 40 mg tablet 40 mg PO BEDTIME 30 Days Qty: 30 1RF aspirin 81 mg Tablet,Delayed Release (Dr/Ec) 81 mg PO QAM 30 Days Qty: 30 1RF nitroglycerin [Nitrostat] 0.4 mg Tablet, Sublingual 0.4 mg SUBLINGUAL Q5M PRN (Reason: Chest Pain) 30 Days Qty: 60 1RF Rx Instructions: do not exceed 3 doses per episode cyclobenzaprine 10 mg tablet 10 mg PO BID PRN (Reason: muscle spasm) Qty: 20 0RF acetaminophen 500 mg tablet 500 mg PO Q6H PRN (Reason: pain) Qty: 30 0RF clopidogrel [Plavix] 75 mg tablet 75 mg PO DAILY Qty: 30 0RF baclofen 10 mg tablet 10 mg PO Q8H PRN (Reason: muscle spasm) Qty: 10 0RF Reglan 10 mg tablet 10 mg PO QID PRN (Reason: Nausea) quetiapine 50 mg tablet 50 mg PO BEDTIME ranolazine 500 mg tablet extended release 12 hr 500 mg PO Q12H amlodipine 5 mg Tablet 5 mg PO DAILY Qty: 30 0RF isosorbide mononitrate 60 mg tablet extended release 24 hr 60 mg PO BID Qty: 30 0RF Discharge Orders: Discharge ED (Routine); Ordered 04/20/22 Ordered By: Haider Fan Referrals: Cecily Miller MD [Primary Care Provider] - Discharge Diet: Regular Discharge Activity: Increase activity as tolerated Patient Instructions: Seizures Activity Restrictions/Additional Instructions: Follow-up with medical provider as directed to get your prescription of Depakote refilled. Continue taking all home medications as previously prescribed. Return to the ER or your medical provider if condition worsens. Please read and understand discharge instructions. Thank you for choosing [facility] for your healthcare needs today. Please realize this is an emergency room and that we are providing you with a medical screening exam and this may not be complete and all inclusive of all the testing and or work up that you may need to determine your ailment or severity of your illness. It is very important that you follow up as instructed or that you return to the Emergency Department should you have concerns or if your condition changes or worsens in any way. Coding Level of Care Code ED Senior Agricultural Assistant for Marcelino Stephen Exam Comprehensive
[2022-04-20] MEDS: quetiapine 25 mg Tablet 50 MG PO (00:39)
[2022-04-20 00:40] VITALS: BP 143/76; PULSE 79; RESP 18; O2SAT 100
== END 2022-04-20 00:41 | disposition home or self-care (01) ==
PROVIDERS: Emergency Provider Physician Assistant; PCP Internal Medicine
DX: G40.409 Other generalized epilepsy and epileptic syndromes, not intractable, without status epilepticus (principal); I10 Essential (primary) hypertension; I25.10 Atherosclerotic heart disease of native coronary artery without angina pectoris; Z86.73 Personal history of transient ischemic attack (TIA), and cerebral infarction without residual deficits; E11.9 Type 2 diabetes mellitus without complications; E78.5 Hyperlipidemia, unspecified; Z87.891 Personal history of nicotine dependence; Z79.02 Long term (current) use of antithrombotics/antiplatelets; Z79.82 Long term (current) use of aspirin; Z79.4 Long term (current) use of insulin
CPT/HCPCS: 71045; 93005; 99284

== ENCOUNTER 2022-04-24 18:13 | Emergency (ER) | payer MEDICAID, SELFPAY ==
[2022-04-24 18:20] VITALS: BP 166/88; PULSE 103; RESP 18; TEMP 36.7; O2SAT 99; BMI 22.6
--- NOTE | 2022-04-24 18:40 | XRR_ITS ---
PROCEDURE INFORMATION: Exam: XR Chest Exam date and time: 04/24/2022 6:52 PM Age: 46 years old Clinical indication: Pain; Chest pressure and left-sided; Additional info: Cp TECHNIQUE: Imaging protocol: Radiologic exam of the chest. Views: 1 view. COMPARISON: CR (CHEST, ) 04/19/2022 11:00 PM FINDINGS: Lungs: Unremarkable. No consolidation. Pleural spaces: Unremarkable. No pleural effusion. No pneumothorax. Heart/Mediastinum: Unremarkable. No cardiomegaly. Bones/joints: Unremarkable. XR/XR chest 1V portable [id number] IMPRESSION: No acute findings.
--- NOTE | 2022-04-24 18:40 | ECG_ITS ---
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 Measurements Intervals [place] Rate: 123 P: 72 DE: 126 QRS: 73 QRSD: 90 T: 48 QT: 277 QTc: 397 Interpretive Statements SINUS TACHYCARDIA VOLTAGE CRITERIA FOR LVH [MEETS CRITERIA IN ONE OF: R(aVL), S(V1), R(V5), R(V5/V6)+S(V1)] MODERATE ST DEPRESSION [0.05+ mV ST DEPRESSION] Compared to ECG 04/19/2022 21:08:45 ST (T wave) deviation now present Electronically Signed On 04-25-2022 10:57:09 CDT by Regine Bar M.D. [id number] f
--- NOTE | 2022-04-24 18:48 | W.ED.CHESTPA ---
HPI - Chest Pain General: Chief Complaint: Chest Pain Stated Complaint: chest pain Time Seen by Provider: 04/24/22 18:40 History of Present Illness: Mr. June is a 46-year-old gentleman with history of chest pain presenting to the emergency department due to chest pain. He reports compliance with his medication however has been out of his nitroglycerin. He developed onset of chest pain approximately 20 minutes prior to arrival at rest. Left anterior chest associated with radiation to left arm. Also endorses nausea and shortness of breath. Intensity symptoms of is moderate to severe. Course has persisted. Has had frequent similar episodes in the past. No other specific changes in health, exacerbating, or alleviating factors identified. Onset (ago): minute(s) Timing of current episode: constant Prior episodes: Yes Onset: during rest Pain location: left chest Pain radiation: left arm Severity: moderate Relieving factors: nothing Associated symptoms: Reports dyspnea and nausea Review of Systems General: Reports: 10 or more systems reviewed and unremarkable except in HPI and below Resp: Reports: dyspnea GI: Reports: nausea PFSH ED PFSH: Medical History Angina pectoris, unstable Benign essential HTN Bipolar disorder without psychotic features Bradycardia CAD (coronary artery disease) 9stents Chest pain CVA (cerebrovascular accident) Diabetes Dyslipidemia (high LDL; low HDL) Former smoker HTN (hypertension) Vasovagal episode Surgical History History of appendectomy Family History Other No pertinent family history Social History Smoking and tobacco status: former smoker Alcohol intake: never Housing: House Physical Exam Const: COMMON NORMALS: alert GENERAL APPEARANCE: cooperative and well developed HENMT: COMMON NORMALS: normocephalic and atraumatic HEAD & SCALP: normocephalic and atraumatic Eye: COMMON NORMALS: conjunctivae normal CONJUNCTIVA: Yes conjunctivae normal SCLERA: sclerae normal Neck/C-Spine: COMMON NORMALS: supple GENERAL: Yes trachea midline Resp: COMMON NORMALS: clear to auscultation bilaterally EFFORT & INSPECTION: Yes able to speak in complete sentences AUSCULTATION: clear to auscultation bilaterally Cardio: COMMON NORMALS: regular rate and regular rhythm RATE: regular rate RHYTHM: regular rhythm GI: COMMON NORMALS: Soft to palpation PALPATION: Yes Soft to palpation and No Tenderness to palpation present (GI) Extremity: GENERAL: Yes normal exam except as noted and No edema Neuro: COMMON NORMALS: moves all extremities SENSORIUM/ORIENTATION: Yes alert and No Orientation impaired Psych: COMMON NORMALS: mental status grossly normal and Normal thought process present THOUGHT PROCESS: Normal thought process present Course Vital Signs: Vital signs: Vital Signs Temperature 98.1 F 04/24/22 18:20 Pulse Rate 100 04/24/22 19:53 Respiratory Rate 16 04/24/22 19:53 Blood Pressure 145/91 04/24/22 19:53 Pulse Oximetry 97 04/24/22 19:53 Oxygen Delivery Me thod 04/24/22 18:20 MDM - Chest Pain Medical Decision Making 46-year-old gentleman with history of chest pain presenting to the emergency department for chest pain. EKG shows sinus rhythm with nonspecific ST segment abnormalities, no STEMI. Similar to prior. Chest ray with no lobar consolidation or pneumothorax. Prior extensive cardiac evaluations and ED visits were reviewed. Symptom treatment given. The results of ED evaluation were given to the patient including prescriptions and/or symptomatic cares (if applicable) including appropriate and responsible use, followup plan, and return precautions. The patient verbalized understanding. Medical Records I reviewed the patient's medical records. Lab Data I reviewed the patient's lab results. Radiology Impressions Chest X-Ray 04/24/22 18:40 IMPRESSION: No acute findings. Discharge Plan Discharge Patient Disposition: Home Clinical Impression: Chest pain, Tachycardia Condition: Stable Prescriptions: Continued wczphkmhed-qvqlhptkozmln-cvuo 50-325-40 mg tablet 2 tab PO BID PRN (Reason: Migraine Headache) Hold Instructions: interaction with aspirin albuterol sulfate [ProAir HFA] 90 mcg/actuation HFA aerosol inhaler 2 puff INHALATION Q4H PRN (Reason: Shortness Of Breath) 1 Days Qty: 30 0RF hydroxyzine HCl 25 mg tablet 25 mg PO BID PRN (Reason: nausea and vomiting) insulin glargine [Lantus Solostar U-100 Insulin] 100 unit/mL (3 mL) insulin pen 5 unit SUBCUT BEDTIME Qty: 15 0RF insulin aspart U-100 [Novolog Flexpen U-100 Insulin] 100 unit/mL (3 mL) insulin pen See Rx Instructions .ROUTE .COMPLEX Qty: 15 0RF Rx Instructions: Inject, 3 times daily, after meals, based on sliding scale provided ondansetron HCl 4 mg tablet 4 mg PO Q6H PRN (Reason: nausea and vomiting) Qty: 20 0RF Nitrostat 0.4 mg Tablet, Sublingual 0.4 mg SUBLINGUAL Q5M PRN (Reason: Chest Pain) 30 Days Qty: 60 1RF Rx Instructions: do not exceed 3 doses per episode escitalopram oxalate 10 mg Tablet 10 mg PO DAILY 30 Days Qty: 30 1RF atorvastatin 40 mg tablet 40 mg PO BEDTIME 30 Days Qty: 30 1RF aspirin 81 mg Tablet,Delayed Release (Dr/Ec) 81 mg PO QAM 30 Days Qty: 30 1RF cyclobenzaprine 10 mg tablet 10 mg PO BID PRN (Reason: muscle spasm) Qty: 20 0RF acetaminophen 500 mg tablet 500 mg PO Q6H PRN (Reason: pain) Qty: 30 0RF clopidogrel [Plavix] 75 mg tablet 75 mg PO DAILY Qty: 30 0RF baclofen 10 mg tablet 10 mg PO Q8H PRN (Reason: muscle spasm) Qty: 10 0RF Reglan 10 mg tablet 10 mg PO QID PRN (Reason: Nausea) quetiapine 50 mg tablet 50 mg PO BEDTIME ranolazine 500 mg tablet extended release 12 hr 500 mg PO Q12H amlodipine 5 mg Tablet 5 mg PO DAILY Qty: 30 0RF isosorbide mononitrate 60 mg tablet extended release 24 hr 60 mg PO BID Qty: 30 0RF Discharge Orders: Discharge ED (Routine); Ordered 04/24/22 Ordered By: Harjinder Bowen Referrals: Cecily Miller MD [Primary Care Provider] - Discharge Diet: Usual diet Discharge Activity: Increase activity as tolerated Patient Instructions: Chest Pain (ED) Activity Restrictions/Additional Instructions: Thank you for visiting the emergency department. You were seen and evaluated for chest pain. The exact cause of your chest pain is unclear though based on previous cardiac evaluation does not require inpatient management at this time. I recommend outpatient follow-up with cardiology and a primary care provider. Return to the emergency department as needed. Coding Level of Care Code ED Secondary Connector Armature for Marcelino Stephen
[2022-04-24] MEDS: lidocaine 2% viscous 15 ML, aluminum-mag hydrox-simethicon 30 ML, sucralfate oral liq 1 GM PO (19:10)
[2022-04-24] MEDS: metoprolol tartrate 25 mg Tablet 12.5 MG PO (19:10)
[2022-04-24] MEDS: nitroglycerin 0.4 mg sublingual Tablet SUBLINGUAL (19:11)
[2022-04-24] MEDS: haloperidol inj 5 mg/mL INJ 1 mL 2 MG IM (19:28)
[2022-04-24 19:53] VITALS: BP 145/91; PULSE 100; RESP 16; O2SAT 97
== END 2022-04-24 19:54 | disposition home or self-care (01) ==
PROVIDERS: Emergency Provider Emergency Medicine; PCP Internal Medicine
DX: R07.9 Chest pain, unspecified (principal); R00.0 Tachycardia, unspecified; Z79.02 Long term (current) use of antithrombotics/antiplatelets; Z79.82 Long term (current) use of aspirin; Z79.4 Long term (current) use of insulin; I10 Essential (primary) hypertension; I25.10 Atherosclerotic heart disease of native coronary artery without angina pectoris; Z86.73 Personal history of transient ischemic attack (TIA), and cerebral infarction without residual deficits; E11.9 Type 2 diabetes mellitus without complications; E78.5 Hyperlipidemia, unspecified; Z87.891 Personal history of nicotine dependence
CPT/HCPCS: 71045; 93005; 96372; 99284; J1630

== ENCOUNTER 2022-04-26 22:17 | Emergency (ER) | payer MEDICAID, SELFPAY ==
[2022-04-26 22:24] VITALS: BP 131/95; PULSE 95; RESP 20; TEMP 36.9; O2SAT 100; BMI 25.8
[2022-04-26] MEDS: haloperidol inj 5 mg/mL INJ 1 mL 3 MG IVP (22:48)
--- NOTE | 2022-04-27 02:29 | W.ED.CHESTPA ---
HPI - Chest Pain General: Chief Complaint: Chest Pain Stated Complaint: chest pain, syncope Time Seen by Provider: 04/26/22 22:18 Source: patient History of Present Illness: 46-year-old male well-known to the emergency department. This is his ninth presentation to the emergency department in the last 30 days. He has had 5 negative angiograms this year. He presents with chest discomfort causing him to collapse in the case he is down the street. He presents still in pain. He says he is short of breath. Intensity is severe. He clutches his chest on my interview. MD complaint: chest pain Pertinent past history: other Onset (ago): minute(s) Timing of current episode: constant Prior episodes: Yes Onset: during rest Pain location: substernal Severity: severe Quality: sharp Relieving factors: nothing Exacerbating factors: nothing Associated symptoms: Reports dyspnea, nausea and syncope; Deny abdominal pain, diaphoresis, fever(s), leg edema or vomiting Review of Systems Const: Denies: fever(s) or diaphoresis Eyes: Denies: change in vision Card: Reports: chest pain and syncope Resp: Reports: dyspnea GI: Reports: nausea; Denies: abdominal pain or vomiting Psych: Reports: anxiety PFSH ED PFSH: Medical History Angina pectoris, unstable Benign essential HTN Bipolar disorder without psychotic features Bradycardia CAD (coronary artery disease) 9stents Chest pain CVA (cerebrovascular accident) Diabetes Dyslipidemia (high LDL; low HDL) Former smoker HTN (hypertension) Vasovagal episode Surgical History History of appendectomy Family History Other No pertinent family history Social History Smoking and tobacco status: former smoker Alcohol intake: never Housing: House Physical Exam Const: GENERAL APPEARANCE: cooperative, in distress and anxious; not comfortable ORIENTATION/CONSCIOUSNESS: Yes awake HENMT: COMMON NORMALS: normocephalic and Normal external nose present HEAD & SCALP: normal to inspection and normocephalic FACE & SINUS: normal facial exam and face symmetric NOSE: Normal external nose present Eye: COMMON NORMALS: Equal, round and reactive pupils present and EOMs intact bilaterally PUPIL: Yes Equal, round and reactive pupils present Neck/C-Spine: GENERAL: Yes trachea midline Chest: CHEST: Yes Symmetrical chest wall rise Resp: COMMON NORMALS: normal respiratory effort, No retractions, No use of accessory muscles and clear to auscultation bilaterally AUSCULTATION: clear to auscultation bilaterally Cardio: COMMON NORMALS: regular rate and regular rhythm RATE: regular rate RHYTHM: regular rhythm GI: COMMON NORMALS: Normal to inspection, nondistended, normoactive bowel sounds present Extremity: COMMON NORMALS: no pedal edema Neuro: JULIANO COMA SCALE: document GCS findings [place] coma scale eye opening: Spontaneous Juliano coma scale verbal response: Orientated Juliano coma scale motor response: Obey commands [place] coma scale total score: 15 SENSORY EXAM: Yes extremities (intact) Psych: COMMON NORMALS: speech normal SPEECH: Yes normal speech Skin: COMMON NORMALS: no rashes or lesions noted GENERAL SKIN EXAM: no rashes or lesions noted Course Vital Signs: Vital signs: Vital Signs Temperature 98.5 F 04/26/22 22:24 Pulse Rate 95 04/26/22 22:24 Respiratory Rate 20 H 04/26/22 22:24 Blood Pressure 131/95 04/26/22 22:24 Pulse Oximetry 100 04/26/22 22:24 Oxygen Delivery Me thod 04/26/22 22:24 MDM - Chest Pain Medical Decision Making Patient is given IV Haldol with relief of his discomfort. His EKG tonight shows a sinus rhythm with a normal axis. Likely LVH. No acute ST changes. Intervals are normal. EKG is stable from prior 3 days ago Discharge Plan Discharge Patient Disposition: Home Clinical Impression: Chest pain Condition: Stable Prescriptions: No Action hggsiqqesk-opnkmigxssugy-ardz 50-325-40 mg tablet 2 tab PO BID PRN (Reason: Migraine Headache) Hold Instructions: interaction with aspirin albuterol sulfate [ProAir HFA] 90 mcg/actuation HFA aerosol inhaler 2 puff INHALATION Q4H PRN (Reason: Shortness Of Breath) 1 Days Qty: 30 0RF hydroxyzine HCl 25 mg tablet 25 mg PO BID PRN (Reason: nausea and vomiting) insulin glargine [Lantus Solostar U-100 Insulin] 100 unit/mL (3 mL) insulin pen 5 unit SUBCUT BEDTIME Qty: 15 0RF insulin aspart U-100 [Novolog Flexpen U-100 Insulin] 100 unit/mL (3 mL) insulin pen See Rx Instructions .ROUTE .COMPLEX Qty: 15 0RF Rx Instructions: Inject, 3 times daily, after meals, based on sliding scale provided ondansetron HCl 4 mg tablet 4 mg PO Q6H PRN (Reason: nausea and vomiting) Qty: 20 0RF Nitrostat 0.4 mg Tablet, Sublingual 0.4 mg SUBLINGUAL Q5M PRN (Reason: Chest Pain) 30 Days Qty: 60 1RF Rx Instructions: do not exceed 3 doses per episode escitalopram oxalate 10 mg Tablet 10 mg PO DAILY 30 Days Qty: 30 1RF atorvastatin 40 mg tablet 40 mg PO BEDTIME 30 Days Qty: 30 1RF aspirin 81 mg Tablet,Delayed Release (Dr/Ec) 81 mg PO QAM 30 Days Qty: 30 1RF cyclobenzaprine 10 mg tablet 10 mg PO BID PRN (Reason: muscle spasm) Qty: 20 0RF acetaminophen 500 mg tablet 500 mg PO Q6H PRN (Reason: pain) Qty: 30 0RF clopidogrel [Plavix] 75 mg tablet 75 mg PO DAILY Qty: 30 0RF baclofen 10 mg tablet 10 mg PO Q8H PRN (Reason: muscle spasm) Qty: 10 0RF Reglan 10 mg tablet 10 mg PO QID PRN (Reason: Nausea) quetiapine 50 mg tablet 50 mg PO BEDTIME ranolazine 500 mg tablet extended release 12 hr 500 mg PO Q12H amlodipine 5 mg Tablet 5 mg PO DAILY Qty: 30 0RF isosorbide mononitrate 60 mg tablet extended release 24 hr 60 mg PO BID Qty: 30 0RF Discharge Orders: Discharge ED (Routine); Ordered 04/26/22 Ordered By: Pete Noguera Referrals: Cecily Miller MD [Primary Care Provider] - 1-3 days Patient Instructions: Chest Pain (ED) Coding Level of Care Code ED Appliances Sample Maker for Marcelino Stephen
== END 2022-04-26 23:03 | disposition home or self-care (01) ==
PROVIDERS: Emergency Provider Emergency Medicine; PCP Internal Medicine
DX: R07.9 Chest pain, unspecified (principal); Z87.891 Personal history of nicotine dependence; Z79.4 Long term (current) use of insulin; Z79.82 Long term (current) use of aspirin; Z79.02 Long term (current) use of antithrombotics/antiplatelets
CPT/HCPCS: 96374; 99284; J1630

== ENCOUNTER 2022-04-29 15:02 | Emergency (ER) | payer MEDICAID, SELFPAY ==
--- NOTE | 2022-04-29 15:38 | ECG_ITS ---
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 Measurements Intervals [place] Rate: 109 P: 76 PA: 148 QRS: 89 QRSD: 81 T: 80 QT: 304 QTc: 409 Interpretive Statements SINUS TACHYCARDIA VOLTAGE CRITERIA FOR LVH [MEETS CRITERIA IN ONE OF: R(aVL), S(V1), R(V5), R(V5/V6)+S(V1)] Compared to ECG 04/24/2022 18:41:16 ST (T wave) deviation no longer present Electronically Signed On 04-30-2022 5:26:52 SOYBEAN GROWER by Regine Bar M.D. [id number]
[2022-04-29 16:49] VITALS: BMI 15.6
[2022-04-29 16:51] VITALS: BP 104/65; PULSE 107; RESP 18; TEMP 36.8; O2SAT 98
--- NOTE | 2022-04-29 19:25 | ED_ITS ---
HPI - Chest Pain General: Chief Complaint: Chest Pain Stated Complaint: cp/abd pain Time Seen by Provider: 04/29/22 19:21 PFSH ED PFSH: Medical History Angina pectoris, unstable Benign essential HTN Bipolar disorder without psychotic features Bradycardia CAD (coronary artery disease) 9stents Chest pain CVA (cerebrovascular accident) Diabetes Dyslipidemia (high LDL; low HDL) Former smoker HTN (hypertension) Vasovagal episode Surgical History History of appendectomy Family History Other No pertinent family history Social History Smoking and tobacco status: former smoker Alcohol intake: never Housing: House Course Vital Signs: Vital signs: Vital Signs Temperature 98.2 F 04/29/22 16:51 Pulse Rate 107 H 04/29/22 16:51 Respiratory Rate 18 04/29/22 16:51 Blood Pressure 104/65 04/29/22 16:51 Pulse Oximetry 98 04/29/22 16:51 Oxygen Delivery Me thod 04/29/22 16:51 Discharge Plan Discharge Condition: Stable Prescriptions: No Action yverbnjuiw-cxgrazcbgddam-ypwv 50-325-40 mg tablet 2 tab PO BID PRN (Reason: Migraine Headache) Hold Instructions: interaction with aspirin albuterol sulfate [ProAir HFA] 90 mcg/actuation HFA aerosol inhaler 2 puff INHALATION Q4H PRN (Reason: Shortness Of Breath) 1 Days Qty: 30 0RF hydroxyzine HCl 25 mg tablet 25 mg PO BID PRN (Reason: nausea and vomiting) insulin glargine [Lantus Solostar U-100 Insulin] 100 unit/mL (3 mL) insulin pen 5 unit SUBCUT BEDTIME Qty: 15 0RF insulin aspart U-100 [Novolog Flexpen U-100 Insulin] 100 unit/mL (3 mL) insulin pen See Rx Instructions .ROUTE .COMPLEX Qty: 15 0RF Rx Instructions: Inject, 3 times daily, after meals, based on sliding scale provided ondansetron HCl 4 mg tablet 4 mg PO Q6H PRN (Reason: nausea and vomiting) Qty: 20 0RF Nitrostat 0.4 mg Tablet, Sublingual 0.4 mg SUBLINGUAL Q5M PRN (Reason: Chest Pain) 30 Days Qty: 60 1RF Rx Instructions: do not exceed 3 doses per episode escitalopram oxalate 10 mg Tablet 10 mg PO DAILY 30 Days Qty: 30 1RF atorvastatin 40 mg tablet 40 mg PO BEDTIME 30 Days Qty: 30 1RF aspirin 81 mg Tablet,Delayed Release (Dr/Ec) 81 mg PO QAM 30 Days Qty: 30 1RF cyclobenzaprine 10 mg tablet 10 mg PO BID PRN (Reason: muscle spasm) Qty: 20 0RF acetaminophen 500 mg tablet 500 mg PO Q6H PRN (Reason: pain) Qty: 30 0RF clopidogrel [Plavix] 75 mg tablet 75 mg PO DAILY Qty: 30 0RF baclofen 10 mg tablet 10 mg PO Q8H PRN (Reason: muscle spasm) Qty: 10 0RF Reglan 10 mg tablet 10 mg PO QID PRN (Reason: Nausea) quetiapine 50 mg tablet 50 mg PO BEDTIME ranolazine 500 mg tablet extended release 12 hr 500 mg PO Q12H amlodipine 5 mg Tablet 5 mg PO DAILY Qty: 30 0RF isosorbide mononitrate 60 mg tablet extended release 24 hr 60 mg PO BID Qty: 30 0RF Referrals: Cecily Miller MD [Primary Care Provider] - Coding Level of Care Code ED Peer Financial Counselor for Marcelino Stephen
--- NOTE | 2022-04-29 19:37 | W.ED.CHESTPA ---
HPI - Chest Pain General: Chief Complaint: Chest Pain Stated Complaint: cp/abd pain Time Seen by Provider: 04/29/22 19:21 Source: patient Mode of arrival: ambulatory Limitations: no limitations History of Present Illness: 46-year-old male who is well-known to the ER has been seen here multiple times for chest pain he has had multiple caths in the last year states that today he has been having pain that sharp in nature. He denies any radiation of his pain denies any nausea or shortness of breath. No vomiting or diarrhea. Associated symptoms: Deny abdominal pain, dyspnea, fever(s), nausea or vomiting Review of Systems Const: Denies: fever(s), chills, body aches or change in appetite Eyes: Denies: blurry vision or eye discomfort ENMT: Denies: throat pain or dental pain Card: Reports: chest pain Resp: Denies: dyspnea GI: Denies: abdominal pain, nausea, vomiting or diarrhea : Denies: dysuria Musc: Denies: neck pain or back pain Skin/Breast: Denies: rash Neuro: Denies: headache(s) Psych: Denies: depression Melquiades/Lymph: Denies: easy bruising All/Imm: Denies: urticaria PFSH ED PFSH: Medical History Angina pectoris, unstable Benign essential HTN Bipolar disorder without psychotic features Bradycardia CAD (coronary artery disease) 9stents Chest pain CVA (cerebrovascular accident) Diabetes Dyslipidemia (high LDL; low HDL) Former smoker HTN (hypertension) Vasovagal episode Surgical History History of appendectomy Family History Other No pertinent family history Social History Smoking and tobacco status: former smoker Alcohol intake: never Housing: House Physical Exam Const: COMMON NORMALS: no acute distress, patient oriented x3 and healthy appearing HENMT: COMMON NORMALS: normocephalic and atraumatic HEAD & SCALP: normocephalic and atraumatic Eye: COMMON NORMALS: Equal, round and reactive pupils present and EOMs intact bilaterally PUPIL: Yes Equal, round and reactive pupils present Neck/C-Spine: COMMON NORMALS: full ROM and supple Chest: COMMONS NORMALS: normal inspection of the chest and normal palpation of entire chest wall Resp: COMMON NORMALS: normal respiratory effort, No retractions, No use of accessory muscles and clear to auscultation bilaterally AUSCULTATION: clear to auscultation bilaterally Cardio: COMMON NORMALS: regular rate, regular rhythm and No murmurs present (Cardio) RATE: regular rate RHYTHM: regular rhythm GI: COMMON NORMALS: Normal to inspection, nondistended, normoactive bowel sounds present, Soft to palpation, non-tender and no masses PALPATION: Yes Soft to palpation Extremity: COMMON NORMALS: normal to inspection and full ROM Neuro: COMMON NORMALS: patient oriented x3, moves all extremities and no focal motor deficits Psych: COMMON NORMALS: mental status grossly normal, Normal thought process present and cooperative THOUGHT PROCESS: Normal thought process present Skin: COMMON NORMALS: no rashes or lesions noted and no wounds GENERAL SKIN EXAM: no rashes or lesions noted Course Vital Signs: Vital signs: Vital Signs Temperature 98.2 F 04/29/22 16:51 Pulse Rate 107 H 04/29/22 16:51 Respiratory Rate 18 04/29/22 16:51 Blood Pressure 104/65 04/29/22 16:51 Pulse Oximetry 98 04/29/22 16:51 Oxygen Delivery Ne thod 04/29/22 16:51 MDM - Chest Pain Medical Decision Making Patient presents here with chest pain atypical in nature has been seen here multiple times he has had a cath within the last month that was normal he is stable for discharge he is to follow-up PCP and return if worsening. Discharge Plan Discharge Patient Disposition: Home Clinical Impression: Chest pain Condition: Stable Prescriptions: No Action hnoqxrekyj-layyfxbszrnro-nnny 50-325-40 mg tablet 2 tab PO BID PRN (Reason: Migraine Headache) Hold Instructions: interaction with aspirin albuterol sulfate [ProAir HFA] 90 mcg/actuation HFA aerosol inhaler 2 puff INHALATION Q4H PRN (Reason: Shortness Of Breath) 1 Days Qty: 30 0RF hydroxyzine HCl 25 mg tablet 25 mg PO BID PRN (Reason: nausea and vomiting) insulin glargine [Lantus Solostar U-100 Insulin] 100 unit/mL (3 mL) insulin pen 5 unit SUBCUT BEDTIME Qty: 15 0RF insulin aspart U-100 [Novolog Flexpen U-100 Insulin] 100 unit/mL (3 mL) insulin pen See Rx Instructions .ROUTE .COMPLEX Qty: 15 0RF Rx Instructions: Inject, 3 times daily, after meals, based on sliding scale provided ondansetron HCl 4 mg tablet 4 mg PO Q6H PRN (Reason: nausea and vomiting) Qty: 20 0RF Nitrostat 0.4 mg Tablet, Sublingual 0.4 mg SUBLINGUAL Q5M PRN (Reason: Chest Pain) 30 Days Qty: 60 1RF Rx Instructions: do not exceed 3 doses per episode escitalopram oxalate 10 mg Tablet 10 mg PO DAILY 30 Days Qty: 30 1RF atorvastatin 40 mg tablet 40 mg PO BEDTIME 30 Days Qty: 30 1RF aspirin 81 mg Tablet,Delayed Release (Dr/Ec) 81 mg PO QAM 30 Days Qty: 30 1RF cyclobenzaprine 10 mg tablet 10 mg PO BID PRN (Reason: muscle spasm) Qty: 20 0RF acetaminophen 500 mg tablet 500 mg PO Q6H PRN (Reason: pain) Qty: 30 0RF clopidogrel [Plavix] 75 mg tablet 75 mg PO DAILY Qty: 30 0RF baclofen 10 mg tablet 10 mg PO Q8H PRN (Reason: muscle spasm) Qty: 10 0RF Reglan 10 mg tablet 10 mg PO QID PRN (Reason: Nausea) quetiapine 50 mg tablet 50 mg PO BEDTIME ranolazine 500 mg tablet extended release 12 hr 500 mg PO Q12H amlodipine 5 mg Tablet 5 mg PO DAILY Qty: 30 0RF isosorbide mononitrate 60 mg tablet extended release 24 hr 60 mg PO BID Qty: 30 0RF Discharge Orders: Discharge ED (Routine); Ordered 04/29/22 Ordered By: Jb Jaime Referrals: Cecily Miller MD [Primary Care Provider] - Discharge Diet: Advance as tolerated Discharge Activity: Resume usual activity Patient Instructions: Chest Pain (ED) Coding Level of Care Code ED Cotton Bag Clipper for Marcelino Stephen
== END 2022-04-29 20:10 | disposition home or self-care (01) ==
PROVIDERS: Emergency Provider Emergency Medicine; PCP Internal Medicine
DX: R07.9 Chest pain, unspecified (principal); Z79.02 Long term (current) use of antithrombotics/antiplatelets; Z79.82 Long term (current) use of aspirin; Z79.4 Long term (current) use of insulin; I10 Essential (primary) hypertension; I25.10 Atherosclerotic heart disease of native coronary artery without angina pectoris; Z86.73 Personal history of transient ischemic attack (TIA), and cerebral infarction without residual deficits; E11.9 Type 2 diabetes mellitus without complications; E78.5 Hyperlipidemia, unspecified; Z87.891 Personal history of nicotine dependence
CPT/HCPCS: 93005; 99283

== ENCOUNTER 2022-05-01 21:48 | Emergency (ER) | payer MEDICAID, SELFPAY ==
[2022-05-01 21:53] VITALS: BP 140/80; PULSE 81; RESP 18; TEMP 36.4; O2SAT 100; BMI 16.1
--- NOTE | 2022-05-01 21:59 | ECG_ITS ---
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 Measurements Intervals [place] Rate: 82 P: -14 OR: 139 QRS: -21 QRSD: 96 T: -12 QT: 353 QTc: 414 Interpretive Statements SINUS RHYTHM POSSIBLE LEFT ATRIAL ENLARGEMENT [-0.1mV P-WAVE IN V1/V2] BORDERLINE LEFT AXIS DEVIATION [QRS AXIS < -20] POSSIBLE LEFT VENTRICULAR HYPERTROPHY [VOLTAGE CRITERIA PLUS LAE OR QRS WIDENING] Compared to ECG 04/29/2022 16:52:17 Sinus tachycardia no longer present Electronically Signed On 05-02-2022 15:08:27 LIFE SKILLS COACH by Anatoliy Jean Baptiste M.D. [email or web address] memorial community [email or web address] Hill Medicalmer[facility].[employer]/store/OM/[id number]
--- NOTE | 2022-05-01 22:02 | ED_ITS ---
HPI - Chest Pain General: Chief Complaint: Chest Pain Stated Complaint: Chest Pain Time Seen by Provider: 05/01/22 21:51 Source: patient and EMS Mode of arrival: EMS Limitations: no limitations History of Present Illness: 46-year-old male who is very well-known to the ER comes by a month states having chest pain he has been seen here multiple times in the past he has had 3 cardiac caths this year one 1 month ago that was normal he states the pain is sharp in nature on the left side denies any dyspnea denies any worsening improving factors. Associated symptoms: Deny abdominal pain, dyspnea, fever(s), nausea or vomiting Review of Systems Const: Denies: fever(s), chills, body aches or change in appetite Eyes: Denies: blurry vision or eye discomfort ENMT: Denies: throat pain or dental pain Card: Denies: chest pain Resp: Denies: dyspnea GI: Denies: abdominal pain, nausea, vomiting or diarrhea : Denies: dysuria Musc: Denies: neck pain or back pain Skin/Breast: Denies: rash Neuro: Denies: headache(s) Psych: Denies: depression Melquiades/Lymph: Denies: easy bruising All/Imm: Denies: urticaria PFSH ED PFSH: Medical History Angina pectoris, unstable Benign essential HTN Bipolar disorder without psychotic features Bradycardia CAD (coronary artery disease) 9stents Chest pain CVA (cerebrovascular accident) Diabetes Dyslipidemia (high LDL; low HDL) Former smoker HTN (hypertension) Vasovagal episode Surgical History History of appendectomy Family History Other No pertinent family history Social History Smoking and tobacco status: former smoker Alcohol intake: never Housing: House Physical Exam Const: COMMON NORMALS: no acute distress, patient oriented x3 and healthy appearing HENMT: COMMON NORMALS: normocephalic and atraumatic HEAD & SCALP: normocephalic and atraumatic Eye: COMMON NORMALS: Equal, round and reactive pupils present and EOMs intact bilaterally PUPIL: Yes Equal, round and reactive pupils present Neck/C-Spine: COMMON NORMALS: full ROM and supple Chest: COMMONS NORMALS: normal inspection of the chest and normal palpation of entire chest wall Resp: COMMON NORMALS: normal respiratory effort, No retractions, No use of accessory muscles and clear to auscultation bilaterally AUSCULTATION: clear to auscultation bilaterally Cardio: COMMON NORMALS: regular rate, regular rhythm and No murmurs present (Cardio) RATE: regular rate RHYTHM: regular rhythm GI: COMMON NORMALS: Normal to inspection, nondistended, normoactive bowel sounds present, Soft to palpation, non-tender and no masses PALPATION: Yes Soft to palpation Extremity: COMMON NORMALS: normal to inspection and full ROM Neuro: COMMON NORMALS: patient oriented x3, moves all extremities and no focal motor deficits Psych: COMMON NORMALS: mental status grossly normal, Normal thought process present and cooperative THOUGHT PROCESS: Normal thought process present Skin: COMMON NORMALS: no rashes or lesions noted and no wounds GENERAL SKIN EXAM: no rashes or lesions noted Course Vital Signs: Vital signs: Vital Signs Temperature 97.6 F 05/01/22 21:53 Pulse Rate 81 05/01/22 21:53 Respiratory Rate 18 05/01/22 21:53 Blood Pressure 140/80 05/01/22 21:53 Pulse Oximetry 100 05/01/22 21:53 Oxygen Delivery Me thod 05/01/22 21:53 MDM - Chest Pain Medical Decision Making Patient resents for chest pain he is well-appearing here his EKG is normal he has been multiple times in the past for same he had multiple cardiac caths. He is well-appearing here EKG is normal he is stable for discharge. EKG Data EKG 1: I personally reviewed and interpreted this EKG as follows: EKG interpretation date: 05/01/22 EKG interpretation time: 21:59 Interpretation: nsr hr [address] or t wave abnormalities qrs 96 qtc 392 Discharge Plan Discharge Patient Disposition: Home Clinical Impression: Chest pain Condition: Stable Prescriptions: No Action qpaniuoiwv-jwwjfkpafpuvj-ycqa 50-325-40 mg tablet 2 tab PO BID PRN (Reason: Migraine Headache) Hold Instructions: interaction with aspirin albuterol sulfate [ProAir HFA] 90 mcg/actuation HFA aerosol inhaler 2 puff INHALATION Q4H PRN (Reason: Shortness Of Breath) 1 Days Qty: 30 0RF hydroxyzine HCl 25 mg tablet 25 mg PO BID PRN (Reason: nausea and vomiting) insulin glargine [Lantus Solostar U-100 Insulin] 100 unit/mL (3 mL) insulin pen 5 unit SUBCUT BEDTIME Qty: 15 0RF insulin aspart U-100 [Novolog Flexpen U-100 Insulin] 100 unit/mL (3 mL) insulin pen See Rx Instructions .ROUTE .COMPLEX Qty: 15 0RF Rx Instructions: Inject, 3 times daily, after meals, based on sliding scale provided ondansetron HCl 4 mg tablet 4 mg PO Q6H PRN (Reason: nausea and vomiting) Qty: 20 0RF Nitrostat 0.4 mg Tablet, Sublingual 0.4 mg SUBLINGUAL Q5M PRN (Reason: Chest Pain) 30 Days Qty: 60 1RF Rx Instructions: do not exceed 3 doses per episode escitalopram oxalate 10 mg Tablet 10 mg PO DAILY 30 Days Qty: 30 1RF atorvastatin 40 mg tablet 40 mg PO BEDTIME 30 Days Qty: 30 1RF aspirin 81 mg Tablet,Delayed Release (Dr/Ec) 81 mg PO QAM 30 Days Qty: 30 1RF cyclobenzaprine 10 mg tablet 10 mg PO BID PRN (Reason: muscle spasm) Qty: 20 0RF acetaminophen 500 mg tablet 500 mg PO Q6H PRN (Reason: pain) Qty: 30 0RF clopidogrel [Plavix] 75 mg tablet 75 mg PO DAILY Qty: 30 0RF baclofen 10 mg tablet 10 mg PO Q8H PRN (Reason: muscle spasm) Qty: 10 0RF Reglan 10 mg tablet 10 mg PO QID PRN (Reason: Nausea) quetiapine 50 mg tablet 50 mg PO BEDTIME ranolazine 500 mg tablet extended release 12 hr 500 mg PO Q12H amlodipine 5 mg Tablet 5 mg PO DAILY Qty: 30 0RF isosorbide mononitrate 60 mg tablet extended release 24 hr 60 mg PO BID Qty: 30 0RF Discharge Orders: Discharge ED (Routine); Ordered 05/01/22 Ordered By: Jb Jaime Referrals: Cecily Miller MD [Primary Care Provider] - 1-3 days Discharge Diet: Advance as tolerated Discharge Activity: Resume usual activity Patient Instructions: Chest Pain (ED) Coding Level of Care Code ED Optical Mechanic Apprentice for Marcelino Stephen
== END 2022-05-01 22:18 | disposition home or self-care (01) ==
PROVIDERS: Emergency Provider Emergency Medicine; PCP Internal Medicine
DX: R07.9 Chest pain, unspecified (principal); Z79.02 Long term (current) use of antithrombotics/antiplatelets; Z79.82 Long term (current) use of aspirin; Z79.4 Long term (current) use of insulin; Z87.891 Personal history of nicotine dependence; I10 Essential (primary) hypertension; I25.10 Atherosclerotic heart disease of native coronary artery without angina pectoris; Z86.73 Personal history of transient ischemic attack (TIA), and cerebral infarction without residual deficits; E11.9 Type 2 diabetes mellitus without complications; E78.5 Hyperlipidemia, unspecified
CPT/HCPCS: 93005; 99283

== ENCOUNTER 2022-06-07 16:06 | Emergency (ER) | payer MEDICAID, SELFPAY ==
--- NOTE | 2022-06-07 16:08 | XRR_ITS ---
PROCEDURE INFORMATION: Exam: XR Chest Exam date and time: 06/07/2022 4:23 PM Age: 47 years old Clinical indication: Left-sided; Prior surgery; Surgery date: 6+ months; Surgery type: Heart stents; Patient HX: C/O left side chest pain starting yesterday. HX of stents; Additional info: Cp TECHNIQUE: Imaging protocol: Radiologic exam of the chest. Views: 1 view. COMPARISON: CR (CHEST, ) 04/24/2022 6:52 PM FINDINGS: Lungs: No consolidation. Pleural spaces: No pleural effusion. No pneumothorax. Heart/Mediastinum: No cardiomegaly demonstrated. Coronary arterial stents are demonstrated. Bones/joints: Unremarkable. XR/XR chest 1V portable [id number] IMPRESSION: 1. No acute abnormality demonstrated. 2. There is no interval change from the prior examination.
--- NOTE | 2022-06-07 16:08 | ECG_ITS ---
[facility] Test Date: 2022-06-07 Pat Name: Alonso June Department: Room: Gender: Male Continuous Towel Roller: : 1975 Requested By: Jb Jaime Order Number: [id number] Janel MD: Heath Pacheco M.D. Measurements Intervals [place] Rate: 89 P: 69 MS: 139 QRS: 82 QRSD: 91 T: 82 QT: 336 QTc: 410 Interpretive Statements SINUS RHYTHM POSSIBLE LEFT ATRIAL ENLARGEMENT [-0.1mV P-WAVE IN V1/V2] POSSIBLE LEFT VENTRICULAR HYPERTROPHY [VOLTAGE CRITERIA PLUS LAE OR QRS WIDENING] INTERPRETATION BASED ON A DEFAULT AGE OF 40 YEARS Compared to ECG 05/01/2022 21:59:05 No significant changes Electronically Signed On 06-08-2022 6:19:32 DISTRIBUTION CLERK by Heath Pacheco M.D. [id number]
[2022-06-07 16:10] VITALS: BP 122/79; PULSE 102; RESP 18; TEMP 36; O2SAT 100
--- NOTE | 2022-06-07 16:20 | W.ED.CHESTPA ---
HPI - Chest Pain General: Chief Complaint: Chest Pain Stated Complaint: chest pain Time Seen by Provider: 06/07/22 16:07 Source: patient Mode of arrival: ambulatory Limitations: no limitations History of Present Illness: 47-year-old male is very well-known to ER states he been having chest pain today states it is a dull aching pain in the center of his chest rates it a 5 out of 10 denies any shortness of breath denies any nausea he is in no distress here he has had multiple cardiac caths this year they have been normal he denies any cough denies any fever Associated symptoms: Deny abdominal pain, dyspnea, fever(s), nausea or vomiting Review of Systems Const: Denies: fever(s), chills, body aches or change in appetite Eyes: Denies: blurry vision or eye discomfort ENMT: Denies: throat pain or dental pain Card: Reports: chest pain Resp: Denies: dyspnea GI: Denies: abdominal pain, nausea, vomiting or diarrhea : Denies: dysuria Musc: Denies: neck pain or back pain Skin/Breast: Denies: rash Neuro: Denies: headache(s) Psych: Denies: depression Melquiades/Lymph: Denies: easy bruising All/Imm: Denies: urticaria PFSH ED PFSH: Medical History Angina pectoris, unstable Benign essential HTN Bipolar disorder without psychotic features Bradycardia CAD (coronary artery disease) 9stents Chest pain CVA (cerebrovascular accident) Diabetes Dyslipidemia (high LDL; low HDL) Former smoker HTN (hypertension) Vasovagal episode Surgical History History of appendectomy Family History Other No pertinent family history Social History Smoking and tobacco status: former smoker Alcohol intake: never Housing: House Physical Exam Const: COMMON NORMALS: no acute distress, patient oriented x3 and healthy appearing HENMT: COMMON NORMALS: normocephalic and atraumatic HEAD & SCALP: normocephalic and atraumatic Eye: COMMON NORMALS: Equal, round and reactive pupils present and EOMs intact bilaterally PUPIL: Yes Equal, round and reactive pupils present Neck/C-Spine: COMMON NORMALS: full ROM and supple Chest: COMMONS NORMALS: normal inspection of the chest and normal palpation of entire chest wall Resp: COMMON NORMALS: normal respiratory effort, No retractions, No use of accessory muscles and clear to auscultation bilaterally AUSCULTATION: clear to auscultation bilaterally Cardio: COMMON NORMALS: regular rate, regular rhythm and No murmurs present (Cardio) RATE: regular rate RHYTHM: regular rhythm GI: COMMON NORMALS: Normal to inspection, nondistended, normoactive bowel sounds present, Soft to palpation, non-tender and no masses PALPATION: Yes Soft to palpation Extremity: COMMON NORMALS: normal to inspection and full ROM Neuro: COMMON NORMALS: patient oriented x3, moves all extremities and no focal motor deficits Psych: COMMON NORMALS: mental status grossly normal, Normal thought process present and cooperative THOUGHT PROCESS: Normal thought process present Skin: COMMON NORMALS: no rashes or lesions noted and no wounds GENERAL SKIN EXAM: no rashes or lesions noted Course Vital Signs: Vital signs: Vital Signs Temperature 96.8 F L 06/07/22 16:10 Pulse Rate 102 H 06/07/22 16:10 Respiratory Rate 18 06/07/22 16:10 Blood Pressure 122/79 06/07/22 16:10 Pulse Oximetry 100 06/07/22 16:10 [facility] - Chest Pain Medical Decision Making Patient presents here with chest pain patient has chronic chest pain he has been seen here multiple times has had multiple normal caths this year his EKG and x-ray are normal he has no signs of acute coronary syndrome he is stable for discharge. Lab Data Radiology Impressions Chest X-Ray 06/07/22 16:08 IMPRESSION: 1. No acute abnormality demonstrated. 2. There is no interval change from the prior examination. EKG Data EKG 1: I personally reviewed and interpreted this EKG as follows: EKG interpretation date: 06/07/22 EKG interpretation time: 16:15 Interpretation: nsr hr [address] or t wave abnormalities qrs 91 qtc 383 Discharge Plan Discharge Patient Disposition: Home Clinical Impression: Chest pain Condition: Stable Prescriptions: No Action dmsyjtmaeh-wqeqitduxttlo-octy 50-325-40 mg tablet 2 tab PO BID PRN (Reason: Migraine Headache) Hold Instructions: interaction with aspirin albuterol sulfate [ProAir HFA] 90 mcg/actuation HFA aerosol inhaler 2 puff INHALATION Q4H PRN (Reason: Shortness Of Breath) 1 Days Qty: 30 0RF hydroxyzine HCl 25 mg tablet 25 mg PO BID PRN (Reason: nausea and vomiting) insulin glargine [Lantus Solostar U-100 Insulin] 100 unit/mL (3 mL) insulin pen 5 unit SUBCUT BEDTIME Qty: 15 0RF insulin aspart U-100 [Novolog Flexpen U-100 Insulin] 100 unit/mL (3 mL) insulin pen See Rx Instructions .ROUTE .COMPLEX Qty: 15 0RF Rx Instructions: Inject, 3 times daily, after meals, based on sliding scale provided ondansetron HCl 4 mg tablet 4 mg PO Q6H PRN (Reason: nausea and vomiting) Qty: 20 0RF Nitrostat 0.4 mg Tablet, Sublingual 0.4 mg SUBLINGUAL Q5M PRN (Reason: Chest Pain) 30 Days Qty: 60 1RF Rx Instructions: do not exceed 3 doses per episode escitalopram oxalate 10 mg Tablet 10 mg PO DAILY 30 Days Qty: 30 1RF atorvastatin 40 mg tablet 40 mg PO BEDTIME 30 Days Qty: 30 1RF aspirin 81 mg Tablet,Delayed Release (Dr/Ec) 81 mg PO QAM 30 Days Qty: 30 1RF cyclobenzaprine 10 mg tablet 10 mg PO BID PRN (Reason: muscle spasm) Qty: 20 0RF acetaminophen 500 mg tablet 500 mg PO Q6H PRN (Reason: pain) Qty: 30 0RF clopidogrel [Plavix] 75 mg tablet 75 mg PO DAILY Qty: 30 0RF baclofen 10 mg tablet 10 mg PO Q8H PRN (Reason: muscle spasm) Qty: 10 0RF Reglan 10 mg tablet 10 mg PO QID PRN (Reason: Nausea) quetiapine 50 mg tablet 50 mg PO BEDTIME ranolazine 500 mg tablet extended release 12 hr 500 mg PO Q12H amlodipine 5 mg Tablet 5 mg PO DAILY Qty: 30 0RF isosorbide mononitrate 60 mg tablet extended release 24 hr 60 mg PO BID Qty: 30 0RF Discharge Orders: Discharge ED (Routine); Ordered 06/07/22 Ordered By: Jb Jaime Referrals: Cecily Miller MD [Primary Care Provider] - Discharge Diet: Advance as tolerated Discharge Activity: Resume usual activity Patient Instructions: Chest Pain (ED) Coding Level of Care Code ED Installation Supervisor for Chg Fwd Exam Comprehensive
[2022-06-07] MEDS: HYDROcodone-acetaminophen 5-325 mg Tablet 1 TAB PO (16:51)
== END 2022-06-07 17:00 | disposition home or self-care (01) ==
PROVIDERS: Emergency Provider Emergency Medicine; PCP Internal Medicine
DX: R07.9 Chest pain, unspecified (principal); Z79.02 Long term (current) use of antithrombotics/antiplatelets; Z79.82 Long term (current) use of aspirin; Z79.4 Long term (current) use of insulin; I25.10 Atherosclerotic heart disease of native coronary artery without angina pectoris; I10 Essential (primary) hypertension; Z86.73 Personal history of transient ischemic attack (TIA), and cerebral infarction without residual deficits; E11.9 Type 2 diabetes mellitus without complications; E78.5 Hyperlipidemia, unspecified; Z87.891 Personal history of nicotine dependence
CPT/HCPCS: 71045; 93005; 99284

== ENCOUNTER 2022-06-18 20:20 | Emergency (ER) | payer MEDICAID, SELFPAY ==
--- NOTE | 2022-06-18 20:23 | XRR_ITS ---
PROCEDURE INFORMATION: Exam: XR Chest Exam date and time: 06/18/2022 8:41 PM Age: 47 years old Clinical indication: Chest wall pain; Prior surgery; Surgery date: 1-6 months; Surgery type: Stints; Additional info: Cp TECHNIQUE: Imaging protocol: Radiologic exam of the chest. Views: 1 view. COMPARISON: CR (CHEST, ) 06/07/2022 4:23 PM FINDINGS: Lungs: Unremarkable. No consolidation. Pleural spaces: Unremarkable. No pleural effusion. No pneumothorax. Heart/Mediastinum: Unremarkable. No cardiomegaly. Bones/joints: Unremarkable. XR/XR chest 1V portable [id number] IMPRESSION: No acute findings.
--- NOTE | 2022-06-18 20:23 | ECG_ITS ---
[facility] Test Date: 2022-06-18 Pat Name: Alonso June Department: Room: Gender: Male Salvager: : 1975 Requested By: Jb Jaime Order Number: [id number] Janel MD: Anatoliy Jean Baptiste M.D. Measurements Intervals [place] Rate: 119 P: 67 AL: 128 QRS: 66 QRSD: 87 T: 64 QT: 287 QTc: 404 Interpretive Statements SINUS TACHYCARDIA MODERATE VOLTAGE CRITERIA FOR LVH, CONSIDER NORMAL VARIANT [MEETS CRITERIA IN ONE OF: R(aVL), S(V1), R(V5), R(V5/V6)+S(V1)] MODERATE ST DEPRESSION [0.05+ mV ST DEPRESSION] Compared to ECG 06/07/2022 16:15:01 ST (T wave) deviation now present Sinus rhythm no longer present Electronically Signed On 06-18-2022 21:16:26 DATA CONVERSION ANALYST by Anatoliy Jean Baptiste M.D. [id number]
[2022-06-18 20:25] VITALS: BP 146/87; PULSE 140; RESP 24; TEMP 36.2; O2SAT 100; BMI 22.7
--- NOTE | 2022-06-18 20:34 | ED_ITS ---
HPI - Chest Pain General: Chief Complaint: Chest Pain Stated Complaint: cp Time Seen by Provider: 06/18/22 20:32 Source: patient Mode of arrival: ambulatory Limitations: no limitations History of Present Illness: 47-year-old male who is well-known to the ER he states he been having chest pain since 1 PM today pain sharp in nature in his left chest denies any shortness of breath denies any vomiting or diarrhea denies any worsening proving factors states pain is currently 7 out of 10. Associated symptoms: Deny abdominal pain, dyspnea, fever(s), nausea or vomiting Review of Systems Const: Denies: fever(s), chills, body aches or change in appetite Eyes: Denies: blurry vision or eye discomfort ENMT: Denies: throat pain or dental pain Card: Reports: chest pain Resp: Denies: dyspnea GI: Denies: abdominal pain, nausea, vomiting or diarrhea : Denies: dysuria Musc: Denies: neck pain or back pain Skin/Breast: Denies: rash Neuro: Denies: headache(s) Psych: Denies: depression Melquiades/Lymph: Denies: easy bruising All/Imm: Denies: urticaria PFSH ED PFSH: Medical History Angina pectoris, unstable Benign essential HTN Bipolar disorder without psychotic features Bradycardia CAD (coronary artery disease) 9stents Chest pain CVA (cerebrovascular accident) Diabetes Dyslipidemia (high LDL; low HDL) Former smoker HTN (hypertension) Vasovagal episode Surgical History History of appendectomy Family History Other No pertinent family history Social History Smoking and tobacco status: former smoker Alcohol intake: never Housing: House Physical Exam Const: COMMON NORMALS: no acute distress, patient oriented x3 and healthy appearing HENMT: COMMON NORMALS: normocephalic and atraumatic HEAD & SCALP: normo cephalic and atraumatic Eye: COMMON NORMALS: Equal, round and reactive pupils present and EOMs intact bilaterally PUPIL: Yes Equal, round and reactive pupils present Neck/C-Spine: COMMON NORMALS: full ROM and supple Chest: COMMONS NORMALS: normal inspection of the chest and normal palpation of entire chest wall Resp: COMMON NORMALS: normal respiratory effort, No retractions, No use of accessory muscles and clear to auscultation bilaterally AUSCULTATION: clear to auscultation bilaterally Cardio: COMMON NORMALS: regular rate, regular rhythm and No murmurs present (Cardio) RATE: regular rate RHYTHM: regular rhythm GI: COMMON NORMALS: Normal to inspection, nondistended, normoactive bowel sounds present, Soft to palpation, non-tender and no masses PALPATION: Yes Soft to palpation Extremity: COMMON NORMALS: normal to inspection and full ROM Neuro: COMMON NORMALS: patient oriented x3, moves all extremities and no focal motor deficits Psych: COMMON NORMALS: mental status grossly normal, Normal thought process present and cooperative THOUGHT PROCESS: Normal thought process present Skin: COMMON NORMALS: no rashes or lesions noted and no wounds GENERAL SKIN EXAM: no rashes or lesions noted Course Vital Signs: Vital signs: Vital Signs Temperature 97.1 F L 06/18/22 20:25 Pulse Rate 140 H 06/18/22 20:25 Respiratory Rate 24 H 06/18/22 20:25 Blood Pressure 146/87 06/18/22 20:25 Pulse Oximetry 100 06/18/22 20:25 Oxygen Delivery Me thod 06/18/22 20:25 MDM - Chest Pain Medical Decision Making Patient presents here with chest pain its been chronic in nature his first troponin here is at his baseline no signs of acute coronary syndrome he is stable for discharge he is to follow-up with PCP and return if worsening. Lab Data 06/18/22 20:47 06/18/22 20:47 Radiology Impressions Chest X-Ray 06/18/22 20:23 IMPRESSION: No acute findings. Laboratory Results WBC 6.2 10^3/uL (4.0-10.0) 06/18/22 20:47 RBC 5.54 10^6/uL (4.1-5.3) H 06/18/22 20:47 Hgb 12.1 g/dL (11.7-16.6) 06/18/22 20:47 Hct 38.7 % (42.0-52.0) L 06/18/22 20:47 MCV 69.9 fl (80-94) L 06/18/22 20:47 MCH 21.8 pg (28.0-34.0) L 06/18/22 20:47 MCHC 31.3 g/dL (30.0-36.0) 06/18/22 20:47 RDW 19.7 % (12.1-15.1) H 06/18/22 20:47 Plt Count 250 10^3/cmm (130-400) 06/18/22 20:47 MPV 12.0 fL (7.4-10.4) H 06/18/22 20:47 Neut % (Auto) 34.5 % 06/18/22 20:47 Lymph % (Auto) 41.8 % 06/18/22 20:47 [place] % (Auto) 18.7 % 06/18/22 20:47 Eos % (Auto) 4.1 % 06/18/22 20:47 Baso % (Auto) 0.7 % 06/18/22 20:47 Neut # (Auto) 2.13 10^3/uL (1.8-7.7) 06/18/22 20:47 Lymph # (Auto) 2.6 10^3/uL (0.8-4.8) 06/18/22 20:47 [place] # (Auto) 1.2 10^3/uL (0.2-0.9) H 06/18/22 20:47 Eos # (Auto) 0.3 10^3/uL (0.0-0.8) 06/18/22 20:47 Baso # (Auto) 0.0 10^3/uL (0.0-0.1) 06/18/22 20:47 Nucleated RBC % (auto) 0 % 06/18/22 20:47 Nucleated RBCs # 0.0 /100WBC 06/18/22 20:47 Sodium 140 mmol/L (136-145) 06/18/22 20:47 Potassium 4.0 mmol/L (3.5-5.1) 06/18/22 20:47 Chloride 107 mmol/L (98-107) 06/18/22 20:47 Carbon Dioxide 23 mmol/L (22-29) 06/18/22 20:47 Anion Gap 14.0 (5-19) 06/18/22 20:47 BUN 18 mg/dL (6-20) 06/18/22 20:47 Creatinine 0.9 mg/dL (0.7-1.2) 06/18/22 20:47 GFR Calculation 91.3 mL/min (90-130) 06/18/22 20:47 Glucose 93 mg/dL (65-115) 06/18/22 20:47 Calculated Osmolality 292 mOsm/kg (285-295) 06/18/22 20:47 Calcium 8.5 mg/dL (8.5-10.5) 06/18/22 20:47 Total Bilirubin 0.2 mg/dL (0.15-1.2) 06/18/22 20:47 AST 11 U/L (0-40) 06/18/22 20:47 ALT 6 U/L (0-41) 06/18/22 20:47 Alkaline Phosphatase 79 U/L (40-130) 06/18/22 20:47 Troponin T Baseline 17 ng/L (0-15) H 06/18/22 20:47 Total Protein 7.3 g/dL (6.6-8.7) 06/18/22 20:47 Albumin 4.3 g/dL (3.5-5.2) 06/18/22 20:47 Globulin 3.0 g/dL (1.3-4.6) 06/18/22 20:47 Discharge Plan Discharge Patient Disposition: Home Clinical Impression: Chest pain Condition: Stable Prescriptions: No Action xvsyjgtert-fnsnewanoikxm-lpdq 50-325-40 mg tablet 2 tab PO BID PRN (Reason: Migraine Headache) Hold Instructions: interaction with aspirin albuterol sulfate [ProAir HFA] 90 mcg/actuation HFA aerosol inhaler 2 puff INHALATION Q4H PRN (Reason: Shortness Of Breath) 1 Days Qty: 30 0RF hydroxyzine HCl 25 mg tablet 25 mg PO BID PRN (Reason: nausea and vomiting) insulin glargine [Lantus Solostar U-100 Insulin] 100 unit/mL (3 mL) insulin pen 5 unit SUBCUT BEDTIME Qty: 15 0RF insulin aspart U-100 [Novolog Flexpen U-100 Insulin] 100 unit/mL (3 mL) insulin pen See Rx Instructions .ROUTE .COMPLEX Qty: 15 0RF Rx Instructions: Inject, 3 times daily, after meals, based on sliding scale provided ondansetron HCl 4 mg tablet 4 mg PO Q6H PRN (Reason: nausea and vomiting) Qty: 20 0RF Nitrostat 0.4 mg Tablet, Sublingual 0.4 mg SUBLINGUAL Q5M PRN (Reason: Chest Pain) 30 Days Qty: 60 1RF Rx Instructions: do not exceed 3 doses per episode escitalopram oxalate 10 mg Tablet 10 mg PO DAILY 30 Days Qty: 30 1RF atorvastatin 40 mg tablet 40 mg PO BEDTIME 30 Days Qty: 30 1RF aspirin 81 mg Tablet,Delayed Release (Dr/Ec) 81 mg PO QAM 30 Days Qty: 30 1RF cyclobenzaprine 10 mg tablet 10 mg PO BID PRN (Reason: muscle spasm) Qty: 20 0RF acetaminophen 500 mg tablet 500 mg PO Q6H PRN (Reason: pain) Qty: 30 0RF clopidogrel [Plavix] 75 mg tablet 75 mg PO DAILY Qty: 30 0RF baclofen 10 mg tablet 10 mg PO Q8H PRN (Reason: muscle spasm) Qty: 10 0RF Reglan 10 mg tablet 10 mg PO QID PRN (Reason: Nausea) quetiapine 50 mg tablet 50 mg PO BEDTIME ranolazine 500 mg tablet extended release 12 hr 500 mg PO Q12H amlodipine 5 mg Tablet 5 mg PO DAILY Qty: 30 0RF isosorbide mononitrate 60 mg tablet extended release 24 hr 60 mg PO BID Qty: 30 0RF Discharge Orders: Discharge ED (Routine); Ordered 06/18/22 Ordered By: Jb Jaime Referrals: Cecily Miller MD [Primary Care Provider] - Discharge Diet: Advance as tolerated Discharge Activity: Resume usual activity Patient Instructions: Chest Pain (ED) Coding Level of Care Code ED Vascular Technologist Sonographer for Chg Fwd Exam Comprehensive
[2022-06-18] MEDS: LORazepam 2 mg Tablet PO (20:52)
[2022-06-18 21:07] LABS: Basophils % 0.7 %; Eosinophils # 0.3 10^3/uL (0.0-0.8); Eosinophils % 4.1 %; Hematocrit 38.7 % (42.0-52.0); Hemoglobin 12.1 g/dL (11.7-16.6); Lymphocytes # 2.6 10^3/uL (0.8-4.8); Lymphocytes % 41.8 %; Mean Corpuscular HGB Conc 31.3 g/dL (30.0-36.0); Mean Corpuscular Hemoglobin 21.8 pg (28.0-34.0); Mean Corpuscular Volume 69.9 fl (80-94); Monocytes # 1.2 10^3/uL (0.2-0.9); Monocytes % 18.7 %; Neutrophils # 2.13 10^3/uL (1.8-7.7); Neutrophils % 34.5 %; Nucleated Red Blood Cells % 0 %; Platelet Count 250 10^3/cmm (130-400); Red Blood Count 5.54 10^6/uL (4.1-5.3); Red Cell Distribution Width 19.7 % (12.1-15.1); White Blood Count 6.2 10^3/uL (4.0-10.0)
[2022-06-18 21:23] LABS: Troponin(5th) Baseline 17 ng/L (0-15)
[2022-06-18 21:25] LABS: Alanine Aminotransferase 6 U/L (0-41); Albumin Level 4.3 g/dL (3.5-5.2); Alkaline Phosphatase 79 U/L (40-130); Aspartate Amino Transferase 11 U/L (0-40); Blood Urea Nitrogen 18 mg/dL (6-20); Calcium 8.5 mg/dL (8.5-10.5); Carbon Dioxide 23 mmol/L (22-29); Chloride 107 mmol/L (98-107); Glomerular Filtration Rate 91.3 mL/min (90-130); Glucose 93 mg/dL (65-115); Osmolality Calculated 292 mOsm/kg (285-295); Sodium 140 mmol/L (136-145); Total Bilirubin 0.2 mg/dL (0.15-1.2); Total Protein 7.3 g/dL (6.6-8.7)
== END 2022-06-18 21:56 | disposition home or self-care (01) ==
PROVIDERS: Emergency Provider Emergency Medicine; PCP Internal Medicine
DX: R07.9 Chest pain, unspecified (principal); Z79.02 Long term (current) use of antithrombotics/antiplatelets; Z79.82 Long term (current) use of aspirin; Z79.4 Long term (current) use of insulin; I10 Essential (primary) hypertension; I25.10 Atherosclerotic heart disease of native coronary artery without angina pectoris; Z86.73 Personal history of transient ischemic attack (TIA), and cerebral infarction without residual deficits; E11.9 Type 2 diabetes mellitus without complications; E78.5 Hyperlipidemia, unspecified; Z87.891 Personal history of nicotine dependence
CPT/HCPCS: 36415; 71045; 80053; 84484; 85025; 93005; 99285

== ENCOUNTER 2022-06-26 20:25 | Emergency (ER) | payer MEDICAID, SELFPAY ==
[2022-06-26 20:34] VITALS: BP 146/84; PULSE 100; RESP 18; TEMP 36.6; O2SAT 99; BMI 23.3
[2022-06-26 22:30] VITALS: PULSE 96; O2SAT 97
--- NOTE | 2022-06-26 23:32 | XRR_ITS ---
PROCEDURE INFORMATION: Exam: XR Chest Exam date and time: 06/26/2022 11:40 PM Age: 47 years old Clinical indication: Pain; Chest pressure; Additional info: Cp TECHNIQUE: Imaging protocol: Radiologic exam of the chest. Views: 1 view. COMPARISON: CR (CHEST, ) 06/18/2022 8:41 PM FINDINGS: Lungs: Unremarkable. No consolidation. Pleural spaces: Unremarkable. No pleural effusion. No pneumothorax. Heart/Mediastinum: Unremarkable. No cardiomegaly. Bones/joints: Unremarkable. XR/XR chest 1V portable [id number] IMPRESSION: No acute findings.
[2022-06-26] MEDS: haloperidol inj 5 mg/mL INJ 1 mL IM (23:45)
--- NOTE | 2022-06-27 03:49 | ED_ITS ---
HPI - Chest Pain General: Chief Complaint: Chest Pain Stated Complaint: Chest Pains Time Seen by Provider: 06/26/22 22:40 Source: patient History of Present Illness: 47-year-old male well-known to the emergency department. He presents with chest discomfort about 30 minutes prior to arrival. He is seen on examination, lying in a right lateral recumbent position, clutching his chest with both hands and shaking. Pain is rated as severe. He has some shortness of breath. Pain is worse with inspiration. MD complaint: chest pain Pertinent past history: other Onset (ago): minute(s) Timing of current episode: constant Prior episodes: Yes Onset: during rest Pain location: substernal, left chest and right chest Pain radiation: none Severity: severe Quality: sharp Relieving factors: nothing Exacerbating factors: nothing Associated symptoms: Deny abdominal pain, diaphoresis, dyspnea, fever(s), nausea, palpitations or vomiting Treatment prior to arrival: none Review of Systems Const: Denies: fever(s) or diaphoresis ENMT: Denies: throat pain Card: Denies: palpitations Resp: Denies: dyspnea GI: Denies: abdominal pain, nausea or vomiting Musc: Denies: neck pain Psych: Reports: anxiety PFSH ED PFSH: Medical History Angina pectoris, unstable Benign essential HTN Bipolar disorder without psychotic features Bradycardia CAD (coronary artery disease) 9stents Chest pain CVA (cerebrovascular accident) Diabetes Dyslipidemia (high LDL; low HDL) Former smoker HTN (hypertension) Vasovagal episode Surgical History History of appendectomy Family History Other No pertinent family history Social History Smoking and tobacco status: former smoker Alcohol intake: never Housing: House Physical Exam Const: COMMON NORMALS: no acute distress GENERAL APPEARANCE: cooperative and anxious; not ill appearing and not frail appearing HENMT: COMMON NORMALS: normocephalic, atraumatic and Normal external nose present HEAD & SCALP: normocephalic and atraumatic FACE & SINUS: normal facial exam and face symmetric NOSE: Normal external nose present Eye: COMMON NORMALS: Equal, round and reactive pupils present and EOMs intact bilaterally PUPIL: Yes Equal, round and reactive pupils present Neck/C-Spine: GENERAL: Yes trachea midline Chest: CHEST: Yes Symmetrical chest wall rise Resp: COMMON NORMALS: normal respiratory effort, No retractions, No use of accessory muscles and clear to auscultation bilaterally AUSCULTATION: clear to auscultation bilaterally Cardio: COMMON NORMALS: regular rate and regular rhythm RATE: regular rate RHYTHM: regular rhythm GI: COMMON NORMALS: Normal to inspection, nondistended, normoactive bowel sounds present Extremity: COMMON NORMALS: no pedal edema Neuro: JULIANO COMA SCALE: document GCS findings [place] coma scale eye opening: Spontaneous [place] coma scale verbal response: Orientated [place] coma scale motor response: Obey commands Juliano coma scale total score: 15 SENSORY EXAM: Yes extremities (intact) Psych: COMMON NORMALS: speech normal SPEECH: Yes normal speech Skin: COMMON NORMALS: no rashes or lesions noted GENERAL SKIN EXAM: no rashes or lesions noted Course Vital Signs: Vital signs: Vital Signs Temperature 97.8 F 06/26/22 20:34 Pulse Rate 96 06/26/22 22:30 Respiratory Rate 18 06/26/22 20:34 Blood Pressure 146/84 06/26/22 20:34 Pulse Oximetry 97 06/26/22 22:30 Oxygen Delivery Me thod 06/26/22 22:30 MDM - Chest Pain Medical Decision Making EKG shows no acute findings. Chest x-ray is negative. This patient has had a work-up including troponins for the same symptoms within the last 7 days. He had multiple negative heart catheterizations at this facility and and others within the past year. He will be allowed discharge. Lab Data Radiology Impressions Chest X-Ray 06/26/22 23:32 IMPRESSION: No acute findings. Discharge Plan Discharge Patient Disposition: Home Clinical Impression: Atypical chest pain Condition: Stable Prescriptions: No Action wypentqozm-icypdkmfyvagk-kvct 50-325-40 mg tablet 2 tab PO BID PRN (Reason: Migraine Headache) Hold Instructions: interaction with aspirin albuterol sulfate [ProAir HFA] 90 mcg/actuation HFA aerosol inhaler 2 puff INHALATION Q4H PRN (Reason: Shortness Of Breath) 1 Days Qty: 30 0RF hydroxyzine HCl 25 mg tablet 25 mg PO BID PRN (Reason: nausea and vomiting) insulin glargine [Lantus Solostar U-100 Insulin] 100 unit/mL (3 mL) insulin pen 5 unit SUBCUT BEDTIME Qty: 15 0RF insulin aspart U-100 [Novolog Flexpen U-100 Insulin] 100 unit/mL (3 mL) insulin pen See Rx Instructions .ROUTE .COMPLEX Qty: 15 0RF Rx Instructions: Inject, 3 times daily, after meals, based on sliding scale provided ondansetron HCl 4 mg tablet 4 mg PO Q6H PRN (Reason: nausea and vomiting) Qty: 20 0RF Nitrostat 0.4 mg Tablet, Sublingual 0.4 mg SUBLINGUAL Q5M PRN (Reason: Chest Pain) 30 Days Qty: 60 1RF Rx Instructions: do not exceed 3 doses per episode escitalopram oxalate 10 mg Tablet 10 mg PO DAILY 30 Days Qty: 30 1RF atorvastatin 40 mg tablet 40 mg PO BEDTIME 30 Days Qty: 30 1RF aspirin 81 mg Tablet,Delayed Release (Dr/Ec) 81 mg PO QAM 30 Days Qty: 30 1RF cyclobenzaprine 10 mg tablet 10 mg PO BID PRN (Reason: muscle spasm) Qty: 20 0RF acetaminophen 500 mg tablet 500 mg PO Q6H PRN (Reason: pain) Qty: 30 0RF clopidogrel [Plavix] 75 mg tablet 75 mg PO DAILY Qty: 30 0RF baclofen 10 mg tablet 10 mg PO Q8H PRN (Reason: muscle spasm) Qty: 10 0RF Reglan 10 mg tablet 10 mg PO QID PRN (Reason: Nausea) quetiapine 50 mg tablet 50 mg PO BEDTIME ranolazine 500 mg tablet extended release 12 hr 500 mg PO Q12H amlodipine 5 mg Tablet 5 mg PO DAILY Qty: 30 0RF isosorbide mononitrate 60 mg tablet extended release 24 hr 60 mg PO BID Qty: 30 0RF Discharge Orders: Discharge ED (Routine); Ordered 06/26/22 Ordered By: Pete Noguera Referrals: Cecily Miller MD [Primary Care Provider] - 1-3 days Patient Instructions: Chest Pain (ED), Pain Management Coding Level of Care Code ED Drapery And Upholstery Measurer for [facility]
--- NOTE | 2022-06-27 06:37 | ECG_ITS ---
[facility] Test Date: 2022-06-26 Pat Name: Alonso June Department: Room: Gender: Male Chemist: : 1975 Requested By: Pete Maloney Order Number: [id number] Janel MD: Regine Bar M.D. Measurements Intervals [place] Rate: 105 P: 74 MO: 148 QRS: 74 QRSD: 94 T: 64 QT: 306 QTc: 405 Interpretive Statements SINUS TACHYCARDIA POSSIBLE LEFT ATRIAL ENLARGEMENT [-0.1mV P-WAVE IN V1/V2] POSSIBLE LEFT VENTRICULAR HYPERTROPHY [VOLTAGE CRITERIA PLUS LAE OR QRS WIDENING] Compared to ECG 06/18/2022 20:37:49 ST (T wave) deviation no longer present Electronically Signed On 06-27-2022 7:09:47 CASH MANAGEMENT OFFICER by Regine Bar M.D. [id number]
== END 2022-06-26 23:54 | disposition home or self-care (01) ==
PROVIDERS: Emergency Provider Emergency Medicine; PCP Internal Medicine
DX: R07.89 Other chest pain (principal); Z79.82 Long term (current) use of aspirin; Z79.4 Long term (current) use of insulin; Z79.02 Long term (current) use of antithrombotics/antiplatelets; I10 Essential (primary) hypertension; I25.10 Atherosclerotic heart disease of native coronary artery without angina pectoris; E11.9 Type 2 diabetes mellitus without complications; Z86.73 Personal history of transient ischemic attack (TIA), and cerebral infarction without residual deficits; E78.5 Hyperlipidemia, unspecified; Z87.891 Personal history of nicotine dependence
CPT/HCPCS: 71045; 93005; 96372; 99284; J1630

== ENCOUNTER 2022-06-30 20:51 | Emergency (ER) | payer MEDICAID, SELFPAY ==
[2022-06-30 20:57] VITALS: BP 150/76; PULSE 107; RESP 18; TEMP 37.3; O2SAT 99; BMI 23.3
[2022-06-30 21:00] VITALS: BP 200/103; PULSE 98; RESP 11; O2SAT 99
--- NOTE | 2022-06-30 21:01 | W.ED.CHESTPA ---
Documented by User: Damian Damon DO 06/30/22 23:01 HPI - Chest Pain General: Chief Complaint: Chest Pain Stated Complaint: CHEST PAIN Time Seen by Provider: 06/30/22 20:52 Source: patient Mode of arrival: EMS Limitations: no limitations History of Present Illness: This patient presents to the emergency department transported by EMS. He states that he was at his AA meeting and after his meeting he was headed home and started developing substernal chest pain that seem to radiate into his left arm and left leg. He states this is similar to symptoms he is experienced before. He states that at that time he called EMS. EMS on arrival to the scene noted his twelve-lead EKG did not show any acute changes. He was given aspirin and was Nitropaste and transported to the emergency department. During the time of transport he remained stable. Patient had a longstanding history of of similar presentations in the past. Patient states that he was at the gym earlier today and he exercised normally did not any chest pain at that time. In fact this is the fourth presentation for chest pain in the last 30 days to this emergency department. All ED evaluations have been reassuring. He has had prior history of stent placement for coronary artery stenosis. MD complaint: chest pain Pertinent past history: coronary artery disease Associated symptoms: Deny abdominal pain, dyspnea, fever(s), nausea, palpitations, syncope or vomiting Risk Factors: Coronary artery disease risk factors: smoking history (Previous smoker) Review of Systems Const: Denies: fever(s) or chills Eyes: Denies: change in vision ENMT: Denies: throat pain, odynophagia, nasal discharge, nasal congestion or nasal obstruction Card: Reports: chest pain; Denies: palpitations, syncope or pre-syncope Resp: Denies: dyspnea, productive cough or non-productive cough GI: Denies: abdominal pain, nausea or vomiting : Denies: flank pain, difficulty urinating or dysuria Musc: Denies: neck pain, back pain, extremity pain or extremity swelling Skin/Breast: Denies: rash or pruritus Neuro: Reports: numbness in extremities; Denies: headache(s) Psych: Reports: anxiety and mood swings; Denies: auditory hallucinations, tactile hallucinations, suicidal ideation or homicidal ideation [facility] ED PFSH: Medical History Angina pectoris, unstable Benign essential HTN Bipolar disorder without psychotic features Bradycardia CAD (coronary artery disease) 9stents Chest pain CVA (cerebrovascular accident) Diabetes Dyslipidemia (high LDL; low HDL) Former smoker HTN (hypertension) Vasovagal episode Surgical History History of appendectomy Family History Other No pertinent family history Social History Smoking and tobacco status: former smoker Alcohol intake: never Housing: House Physical Exam Narrative: EXAM NARRATIVE: Patient appears to be alert. He is in no acute distress and answers questions in a goal-directed fashion. Const: COMMON NORMALS: no acute distress, average body habitus, patient oriented x3 and alert GENERAL APPEARANCE: cooperative and comfortable ORIENTATION/CONSCIOUSNESS: Yes awake HENMT: COMMON NORMALS: normocephalic, Normal nasal mucous membranes and turbinates present and moist oral mucous membranes HEAD & SCALP: normocephalic FACE & SINUS: normal facial exam NOSE: Normal nasal mucous membranes and turbinates present Eye: COMMON NORMALS: Equal, round and reactive pupils present, EOMs intact bilaterally and conjunctivae normal CONJUNCTIVA: Yes conjunctivae normal PUPIL: Yes Equal, round and reactive pupils present Neck/C-Spine: COMMON NORMALS: full ROM, no lymphadenopathy, supple, no JVD and No carotid bruits Chest: COMMONS NORMALS: normal inspection of the chest and normal palpation of entire chest wall Resp: COMMON NORMALS: normal respiratory effort, No retractions, No use of accessory muscles and clear to auscultation bilaterally AUSCULTATION: clear to auscultation bilaterally Cardio: COMMON NORMALS: no JVD, regular rate, regular rhythm, No murmurs present (Cardio) and Peripheral pulses 2+ throughout RATE: regular rate RHYTHM: regular rhythm PERIPHERAL PULSES: Peripheral pulses 2+ throughout GI: COMMON NORMALS: Normal to inspection, nondistended, normoactive bowel sounds present, Soft to palpation and non-tender PALPATION: Yes Soft to palpation : COMMON NORMALS: Yes no CVA tenderness BLADDER/KIDNEY EXAM: Yes no CVA tenderness Back/Pelvis: COMMON NORMALS: no CVA tenderness, thoracic and lumbar spine normal to inspection, no thoracic nor lumbar tenderness, thoraco-lumbar ROM normal and straight leg raise negative bilaterally Extremity: COMMON NORMALS: normal to inspection, full ROM, no calf tenderness and no pedal edema Neuro: COMMON NORMALS: patient oriented x3 and CN's II-XII intact bilaterally SENSORIUM/ORIENTATION: Yes alert CRANIAL NERVES: Yes CN normal except as noted OTHER: 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 I actively elevated his left upper extremity up above his head and a ladder to fall with gravity I was able to palpate tensing of his muscles as it returned to resting position. slowly back to resting level. This was also true of his left lower extremity. He stated he could not feel or elevate his left lower extremity. I subsequently then passively raised his left leg to a 45 degree angle and allow it to fall and I did note muscle contraction as it slowly returned back to resting position. Psych: COMMON NORMALS: mental status grossly normal and speech normal SPEECH: Yes normal speech Skin: COMMON NORMALS: no rashes or lesions noted, no wounds and turgor normal GENERAL SKIN EXAM: no rashes or lesions noted and turgor normal Course Vital Signs: Vital signs: Vital Signs Temperature 99.1 F 06/30/22 20:57 Pulse Rate 76 06/30/22 23:45 Respiratory Rate 16 06/30/22 23:45 Blood Pressure 154/58 06/30/22 23:45 Pulse Oximetry 100 06/30/22 23:45 Oxygen Delivery Me thod 06/30/22 21:00 MDM - Chest Pain Medical Decision Making Patient who is well-known to this emergency department who presented with episode of chest pain with associated pain radiation to his arm and leg. Initial clinical evaluation was reassuring and that he had a clinical exam that suggested that he did have intact strength in all extremities and there was some concern whether there might be some less an accurate response from some of his motor exam. Initial imaging was reassuring and that there is no evidence of acute intracranial hemorrhage or other acute findings. His chest x-ray and initial values were also reassuring. The patient was initially hypertensive and was given his usual dose of amlodipine which lowered his blood pressure down to her normal state. We are awaiting serial troponins to ensure that there is no evidence of ACS and then reevaluate him for any other focal findings. Medical Records I reviewed the patient's medical records. Lab Data I reviewed the patient's lab results. 06/30/22 20:41 06/30/22 20:41 Radiology Impressions Chest X-Ray 06/30/22 21:10 IMPRESSION: No acute findings. Head CT 06/30/22 21:10 IMPRESSION: No acute intracranial abnormality. Laboratory Results WBC 9.7 10^3/uL (4.0-10.0) 06/30/22 20:41 RBC 5.37 10^6/uL (4.1-5.3) H 06/30/22 20:41 Hgb 11.7 g/dL (11.7-16.6) 06/30/22 20:41 Hct 37.3 % (42.0-52.0) L 06/30/22 20: MCV 69.5 fl (80-94) L 06/30/22 20:41 MCH 21.8 pg (28.0-34.0) L 06/30/22 20: MCHC 31.4 g/dL (30.0-36.0) 06/30/22 20: RDW 19.7 % (12.1-15.1) H 06/30/22 20:41 Plt Count 288 10^3/cmm (130-400) 06/30/22 20:41 MPV Not Reportable 06/30/22 20: Neut % (Auto) 54.9 % 06/30/22 20:41 Lymph % (Auto) 28.4 % 06/30/22 20:41 [place] % (Auto) 12.8 % 06/30/22 20:41 Eos % (Auto) 3.0 % 06/30/22 20:41 Baso % (Auto) 0.6 % 06/30/22 20:41 Neut # (Auto) 5.34 10^3/uL (1.8-7.7) 06/30/22 20: Lymph # (Auto) 2.8 10^3/uL (0.8-4.8) 06/30/22 20:41 [place] # (Auto) 1.2 10^3/uL (0.2-0.9) H 06/30/22 20:41 Eos # (Auto) 0.3 10^3/uL (0.0-0.8) 06/30/22 20:41 Baso # (Auto) 0.1 10^3/uL (0.0-0.1) 06/30/22 20:41 Nucleated RBC % (auto) 0 % 06/30/22 20:41 Nucleated RBCs # 0.0 /100WBC 06/30/22 20:41 Sodium 136 mmol/L (136-145) 06/30/22 20:41 Potassium 3.8 mmol/L (3.5-5.1) 06/30/22 20:41 Chloride 102 mmol/L (98-107) 06/30/22 20:41 Carbon Dioxide 23 mmol/L (22-29) 06/30/22 20:41 Anion Gap 14.8 (5-19) 06/30/22 20:41 BUN 17 mg/dL (6-20) 06/30/22 20:41 Creatinine 1.1 mg/dL (0.7-1.2) 06/30/22 20:41 GFR Calculation 72.4 mL/min (90-130) L 06/30/22 20:41 Glucose 112 mg/dL (65-115) 06/30/22 20:41 Calculated Osmolality 284 mOsm/kg (285-295) L 06/30/22 20:41 Calcium 8.9 mg/dL (8.5-10.5) 06/30/22 20:41 Troponin T Baseline 13 ng/L (0-15) 06/30/22 20:41 Troponin T 120 Minute 16.24 ng/L (0-15) H 06/30/22 22:36 Delta Troponin T 3.24 ABS# (0-10) 06/30/22 22:36 EKG Data EKG 1: I personally reviewed and interpreted this EKG as follows: Interpretation: Resting EKG reveals a sinus tachycardia 105 bpm. Normal HI interval normal QRS duration, normal QTc interval. Normal axis. He does have tall R waves noted in the lateral precordial leads suggestive of possible LVH however lead aVL does not have a concomitant tall R wave. No acute ST-T wave changes noted. Discharge Plan Discharge Patient Disposition: Home Clinical Impression: Chronic hypertension, Chest pain Condition: Stable Prescriptions: No Action mokuerzafp-[id number]-olpb 50-325-40 mg tablet 2 tab PO BID PRN (Reason: Migraine Headache) Hold Instructions: interaction with aspirin albuterol sulfate [ProAir HFA] 90 mcg/actuation HFA aerosol inhaler 2 puff INHALATION Q4H PRN (Reason: Shortness Of Breath) 1 Days Qty: 30 0RF hydroxyzine HCl 25 mg tablet 25 mg PO BID PRN (Reason: nausea and vomiting) insulin glargine [Lantus Solostar U-100 Insulin] 100 unit/mL (3 mL) insulin pen 5 unit SUBCUT BEDTIME Qty: 15 0RF insulin aspart U-100 [Novolog Flexpen U-100 Insulin] 100 unit/mL (3 mL) insulin pen See Rx Instructions .ROUTE .COMPLEX Qty: 15 0RF Rx Instructions: Inject, 3 times daily, after meals, based on sliding scale provided ondansetron HCl 4 mg tablet 4 mg PO Q6H PRN (Reason: nausea and vomiting) Qty: 20 0RF Nitrostat 0.4 mg Tablet, Sublingual 0.4 mg SUBLINGUAL Q5M PRN (Reason: Chest Pain) 30 Days Qty: 60 1RF Rx Instructions: do not exceed 3 doses per episode escitalopram oxalate 10 mg Tablet 10 mg PO DAILY 30 Days Qty: 30 1RF atorvastatin 40 mg tablet 40 mg PO BEDTIME 30 Days Qty: 30 1RF aspirin 81 mg Tablet,Delayed Release (Dr/Ec) 81 mg PO QAM 30 Days Qty: 30 1RF cyclobenzaprine 10 mg tablet 10 mg PO BID PRN (Reason: muscle spasm) Qty: 20 0RF acetaminophen 500 mg tablet 500 mg PO Q6H PRN (Reason: pain) Qty: 30 0RF clopidogrel [Plavix] 75 mg tablet 75 mg PO DAILY Qty: 30 0RF baclofen 10 mg tablet 10 mg PO Q8H PRN (Reason: muscle spasm) Qty: 10 0RF Reglan 10 mg tablet 10 mg PO QID PRN (Reason: Nausea) quetiapine 50 mg tablet 50 mg PO BEDTIME ranolazine 500 mg tablet extended release 12 hr 500 mg PO Q12H amlodipine 5 mg Tablet 5 mg PO DAILY Qty: 30 0RF isosorbide mononitrate 60 mg tablet extended release 24 hr 60 mg PO BID Qty: 30 0RF Discharge Orders: Discharge ED (Routine); Ordered 06/30/22 Ordered By: Harjinder Bowen Referrals: Cecily Miller MD [Primary Care Provider] - Discharge Diet: Cardiac and Diabetic Discharge Activity: Increase activity as tolerated Patient Instructions: Chest Pain (ED), Hypertension (ED) Activity Restrictions/Additional Instructions: Thank you for visiting the emergency department. You were seen and evaluated for chest pain. The exact cause of your symptoms is unclear though does not appear to need hospitalization at this time. A contributing factor may have been your elevated blood pressure. You need to ensure that you are taking your previously prescribed antihypertensive medications as well as other medications. Please follow-up with your primary care provider. Return to the emergency department for anything that you are concerned about and feel needs emergency department evaluation. Coding Level of Care Code ED Operations Vocational Instructor for Chg Fwd Exam Comprehensive Documented by User: Harjinder Bowen MD 07/07/22 06:55 HPI - Chest Pain General: Chief Complaint: Chest Pain Stated Complaint: CHEST PAIN Time Seen by Provider: 06/30/22 20:52 PFSH ED PFSH: Medical History Angina pectoris, unstable Benign essential HTN Bipolar disorder without psychotic features Bradycardia CAD (coronary artery disease) 9stents Chest pain CVA (cerebrovascular accident) Diabetes Dyslipidemia (high LDL; low HDL) Former smoker HTN (hypertension) Vasovagal episode Surgical History History of appendectomy Family History Other No pertinent family history Social History Smoking and tobacco status: former smoker Alcohol intake: never Housing: House Course Vital Signs: Vital signs: Vital Signs Temperature 99.1 F 06/30/22 20:57 Pulse Rate 76 06/30/22 23:45 Respiratory Rate 16 06/30/22 23:45 Blood Pressure 154/58 06/30/22 23:45 Pulse Oximetry 100 06/30/22 23:45 Oxygen Delivery Me thod 06/30/22 21:00 MDM - Chest Pain Medical Decision Making Patient who is well-known to this emergency department who presented with episode of chest pain with associated pain radiation to his arm and leg. Initial clinical evaluation was reassuring and that he had a clinical exam that suggested that he did have intact strength in all extremities and there was some concern whether there might be some less an accurate response from some of his motor exam. Initial imaging was reassuring and that there is no evidence of acute intracranial hemorrhage or other acute findings. His chest x-ray and initial values were also reassuring. The patient was initially hypertensive and was given his usual dose of amlodipine which lowered his blood pressure down to her normal state. We are awaiting serial troponins to ensure that there is no evidence of ACS and then reevaluate him for any other focal findings. Patient care handoff received from Dr. Damon end occlusion of ED evaluation. Laboratory studies, prior records, imaging reviewed. Repeat troponin is in the negative range for 2-hour delta troponin. Patient has had extensive cardiac evaluation in the past including times where troponin has been elevated, unlike today, and no interval disease has been found. The results of ED evaluation were given to the patient including prescriptions and/or symptomatic cares (if applicable) including appropriate and responsible use, followup plan, and return precautions. The patient verbalized understanding and felt safe for discharge. Lab Data 06/30/22 20:41 06/30/22 20:41 Radiology Impressions Chest X-Ray 06/30/22 21:10 IMPRESSION: No acute findings. Head CT 06/30/22 21:10 IMPRESSION: No acute intracranial abnormality. Laboratory Results WBC 9.7 10^3/uL (4.0-10.0) 06/30/22 20:41 RBC 5.37 10^6/uL (4.1-5.3) H 06/30/22 20:41 Hgb 11.7 g/dL (11.7-16.6) 06/30/22 20:41 Hct 37.3 % (42.0-52.0) L 06/30/22 20:41 MCV 69.5 fl (80-94) L 06/30/22 20:41 MCH 21.8 pg (28.0-34.0) L 06/30/22 20:41 MCHC 31.4 g/dL (30.0-36.0) 06/30/22 20:41 RDW 19.7 % (12.1-15.1) H 06/30/22 20:41 Plt Count 288 10^3/cmm (130-400) 06/30/22 20:41 MPV Not Reportable 06/30/22 20:41 Neut % (Auto) 54.9 % 06/30/22 20:41 Lymph % (Auto) 28.4 % 06/30/22 20:41 [place] % (Auto) 12.8 % 06/30/22 20:41 Eos % (Auto) 3.0 % 06/30/22 20:41 Baso % (Auto) 0.6 % 06/30/22 20: Neut # (Auto) 5.34 10^3/uL (1.8-7.7) 06/30/22 20:41 Lymph # (Auto) 2.8 10^3/uL (0.8-4.8) 06/30/22 20:41 [place] # (Auto) 1.2 10^3/uL (0.2-0.9) H 06/30/22 20:41 Eos # (Auto) 0.3 10^3/uL (0.0-0.8) 06/30/22 20:41 Baso # (Auto) 0.1 10^3/uL (0.0-0.1) 06/30/22 20:41 Nucleated RBC % (auto) 0 % 06/30/22 20: Nucleated RBCs # 0.0 /100WBC 06/30/22 20:41 Sodium 136 mmol/L (136-145) 06/30/22 20:41 Potassium 3.8 mmol/L (3.5-5.1) 06/30/22 20:41 Chloride 102 mmol/L (98-107) 06/30/22 20:41 Carbon Dioxide 23 mmol/L (22-29) 06/30/22 20:41 Anion Gap 14.8 (5-19) 06/30/22 20:41 BUN 17 mg/dL (6-20) 06/30/22 20:41 Creatinine 1.1 mg/dL (0.7-1.2) 06/30/22 20:41 GFR Calculation 72.4 mL/min (90-130) L 06/30/22 20:41 Glucose 112 mg/dL (65-115) 06/30/22 20:41 Calculated Osmolality 284 mOsm/kg (285-295) L 06/30/22 20:41 Calcium 8.9 mg/dL (8.5-10.5) 06/30/22 20:41 Troponin T Baseline 13 ng/L (0-15) 06/30/22 20:41 Troponin T 120 Minute 16.24 ng/L (0-15) H 06/30/22 22:36 Delta Troponin T 3.24 ABS# (0-10) 06/30/22 22:36 Discharge Plan Discharge Patient Disposition: Home Clinical Impression: Chronic hypertension, Chest pain Condition: Stable Prescriptions: No Action mubvmtseku-gidvgkfulgffl-uswb 50-325-40 mg tablet 2 tab PO BID PRN (Reason: Migraine Headache) Hold Instructions: interaction with aspirin albuterol sulfate [ProAir HFA] 90 mcg/actuation HFA aerosol inhaler 2 puff INHALATION Q4H PRN (Reason: Shortness Of Breath) 1 Days Qty: 30 0RF hydroxyzine HCl 25 mg tablet 25 mg PO BID PRN (Reason: nausea and vomiting) insulin glargine [Lantus Solostar U-100 Insulin] 100 unit/mL (3 mL) insulin pen 5 unit SUBCUT BEDTIME Qty: 15 0RF insulin aspart U-100 [Novolog Flexpen U-100 Insulin] 100 unit/mL (3 mL) insulin pen See Rx Instructions .ROUTE .COMPLEX Qty: 15 0RF Rx Instructions: Inject, 3 times daily, after meals, based on sliding scale provided ondansetron HCl 4 mg tablet 4 mg PO Q6H PRN (Reason: nausea and vomiting) Qty: 20 0RF Nitrostat 0.4 mg Tablet, Sublingual 0.4 mg SUBLINGUAL Q5M PRN (Reason: Chest Pain) 30 Days Qty: 60 1RF Rx Instructions: do not exceed 3 doses per episode escitalopram oxalate 10 mg Tablet 10 mg PO DAILY 30 Days Qty: 30 1RF atorvastatin 40 mg tablet 40 mg PO BEDTIME 30 Days Qty: 30 1RF aspirin 81 mg Tablet,Delayed Release (Dr/Ec) 81 mg PO QAM 30 Days Qty: 30 1RF cyclobenzaprine 10 mg tablet 10 mg PO BID PRN (Reason: muscle spasm) Qty: 20 0RF acetaminophen 500 mg tablet 500 mg PO Q6H PRN (Reason: pain) Qty: 30 0RF clopidogrel [Plavix] 75 mg tablet 75 mg PO DAILY Qty: 30 0RF baclofen 10 mg tablet 10 mg PO Q8H PRN (Reason: muscle spasm) Qty: 10 0RF Reglan 10 mg tablet 10 mg PO QID PRN (Reason: Nausea) quetiapine 50 mg tablet 50 mg PO BEDTIME ranolazine 500 mg tablet extended release 12 hr 500 mg PO Q12H amlodipine 5 mg Tablet 5 mg PO DAILY Qty: 30 0RF isosorbide mononitrate 60 mg tablet extended release 24 hr 60 mg PO BID Qty: 30 0RF Discharge Orders: Discharge ED (Routine); Ordered 06/30/22 Ordered By: Harjinder Bowen Referrals: Cecily Miller MD [Primary Care Provider] - Discharge Diet: Cardiac and Diabetic Discharge Activity: Increase activity as tolerated Patient Instructions: Chest Pain (ED), Hypertension (ED) Activity Restrictions/Additional Instructions: Thank you for visiting the emergency department. You were seen and evaluated for chest pain. The exact cause of your symptoms is unclear though does not appear to need hospitalization at this time. A contributing factor may have been your elevated blood pressure. You need to ensure that you are taking your previously prescribed antihypertensive medications as well as other medications. Please follow-up with your primary care provider. Return to the emergency department for anything that you are concerned about and feel needs emergency department evaluation. Coding Level of Care Code ED Operations Vocational Instructor for Marcelino Fwmacy Exam Comprehensive
--- NOTE | 2022-06-30 21:10 | CTR_ITS ---
PROCEDURE INFORMATION: Exam: CT Head Without Contrast Exam date and time: 06/30/2022 9:19 PM Age: 47 years old Clinical indication: Weakness, extremity; Patient HX: C/O left upper and lower ext weakness. ; Additional info: Left side weakness TECHNIQUE: Imaging protocol: Computed tomography of the head without contrast. Radiation optimization: All CT scans at this facility use at least one of these dose optimization techniques: automated exposure control; mA and/or kV adjustment per patient size (includes targeted exams where dose is matched to clinical indication); or iterative reconstruction. COMPARISON: CT head wo con* [id number] 01/24/2022 1:44 AM RADIATION DOSE METRICS: Total DLP (mGy-cm): 1051.28 FINDINGS: Brain: Normal. No hemorrhage. Unremarkable white matter. No mass effect. Cerebral ventricles: No ventriculomegaly. Paranasal sinuses: Visualized sinuses are unremarkable. No fluid levels. Mastoid air cells: Visualized mastoid air cells are well aerated. Bones/joints: Unremarkable. No acute fracture. Soft tissues: Unremarkable. CT/CT head wo con* [id number] IMPRESSION: No acute intracranial abnormality.
--- NOTE | 2022-06-30 21:10 | XRR_ITS ---
PROCEDURE INFORMATION: Exam: XR Chest Exam date and time: 06/30/2022 9:16 PM Age: 47 years old Clinical indication: Pain; Chest pressure; Additional info: Cp TECHNIQUE: Imaging protocol: Radiologic exam of the chest. Views: 1 view. COMPARISON: CR (CHEST, ) 06/26/2022 11:40 PM FINDINGS: Lungs: Unremarkable. No consolidation. Pleural spaces: Unremarkable. No pleural effusion. No pneumothorax. Heart/Mediastinum: Unremarkable. No cardiomegaly. Bones/joints: Unremarkable. XR/XR chest 1V portable [id number] IMPRESSION: No acute findings.
--- NOTE | 2022-06-30 21:10 | ECG_ITS ---
[facility] Test Date: 2022-06-30 Pat Name: Alonso June Department: Room: Gender: Male Sap Basis Architect: : 1975 Requested By: Damian Damon Order Number: [id number] Janel MD: Heath Pacheco M.D. Measurements Intervals [place] Rate: 105 P: 62 UT: 150 QRS: 69 QRSD: 84 T: 75 QT: 315 QTc: 416 Interpretive Statements SINUS TACHYCARDIA MODERATE VOLTAGE CRITERIA FOR LVH, CONSIDER NORMAL VARIANT [MEETS CRITERIA IN ONE OF: R(aVL), S(V1), R(V5), R(V5/V6)+S(V1)] Compared to ECG 06/26/2022 20:30:20 No significant changes Electronically Signed On 07-01-2022 8:14:44 WEIGH MACHINE OPERATOR by Heath Pacheco M.D. [id number]
[2022-06-30 21:19] LABS: Basophils # 0.1 10^3/uL (0.0-0.1); Basophils % 0.6 %; Eosinophils # 0.3 10^3/uL (0.0-0.8); Hematocrit 37.3 % (42.0-52.0); Hemoglobin 11.7 g/dL (11.7-16.6); Lymphocytes # 2.8 10^3/uL (0.8-4.8); Lymphocytes % 28.4 %; Mean Corpuscular HGB Conc 31.4 g/dL (30.0-36.0); Mean Corpuscular Hemoglobin 21.8 pg (28.0-34.0); Mean Corpuscular Volume 69.5 fl (80-94); Monocytes # 1.2 10^3/uL (0.2-0.9); Monocytes % 12.8 %; Neutrophils # 5.34 10^3/uL (1.8-7.7); Neutrophils % 54.9 %; Nucleated Red Blood Cells % 0 %; Platelet Count 288 10^3/cmm (130-400); Red Blood Count 5.37 10^6/uL (4.1-5.3); Red Cell Distribution Width 19.7 % (12.1-15.1); White Blood Count 9.7 10^3/uL (4.0-10.0)
[2022-06-30 21:37] LABS: Troponin(5th) Baseline 13 ng/L (0-15)
[2022-06-30 21:38] LABS: Anion Gap 14.8 (5-19); Blood Urea Nitrogen 17 mg/dL (6-20); Calcium 8.9 mg/dL (8.5-10.5); Carbon Dioxide 23 mmol/L (22-29); Chloride 102 mmol/L (98-107); Glomerular Filtration Rate 72.4 mL/min (90-130); Glucose 112 mg/dL (65-115); Osmolality Calculated 284 mOsm/kg (285-295); Potassium 3.8 mmol/L (3.5-5.1); Sodium 136 mmol/L (136-145)
[2022-06-30] MEDS: amlodipine 5 mg Tablet PO (21:55)
[2022-06-30 23:02] LABS: Troponin 5 2HR 16.24 ng/L (0-15)
[2022-06-30 23:03] LABS: Troponin 5 2HR Delta 3.24 ABS# (0-10)
--- NOTE | 2022-06-30 23:32 | ECG_ITS ---
[facility] Test Date: 2022-06-30 Pat Name: Alonso June Department: Room: Gender: Male Skull Splitter: : 1975 Requested By: Damian Damon Order Number: [id number] Janel MD: Heath Pacheco M.D. Measurements Intervals [place] Rate: 77 P: 65 TX: 147 QRS: 76 QRSD: 84 T: 78 QT: 368 QTc: 417 Interpretive Statements SINUS RHYTHM MODERATE T-WAVE ABNORMALITY, CONSIDER ANTERIOR ISCHEMIA [-0.1+ mV T-WAVE IN V3/V4] Compared to ECG 06/30/2022 21:04:09 T-wave abnormality now present Possible ischemia now present Sinus tachycardia no longer present Electronically Signed On 07-01-2022 8:11:49 BASKETBALL ASSEMBLER by Heath Pacheco M.D. [id number]
[2022-06-30 23:45] VITALS: BP 154/58; PULSE 76; RESP 16; O2SAT 100
== END 2022-06-30 23:45 | disposition home or self-care (01) ==
PROVIDERS: Emergency Medicine; Emergency Provider Emergency Medicine; PCP Internal Medicine
DX: I10 Essential (primary) hypertension (principal); R07.9 Chest pain, unspecified; Z79.4 Long term (current) use of insulin; Z79.82 Long term (current) use of aspirin; Z79.02 Long term (current) use of antithrombotics/antiplatelets; I25.10 Atherosclerotic heart disease of native coronary artery without angina pectoris; Z86.73 Personal history of transient ischemic attack (TIA), and cerebral infarction without residual deficits; E11.9 Type 2 diabetes mellitus without complications; E78.5 Hyperlipidemia, unspecified; Z87.891 Personal history of nicotine dependence
CPT/HCPCS: 36415; 70450; 71045; 80048; 84484; 85025; 93005; 99285

== ENCOUNTER 2022-07-04 20:00 | Emergency (ER) | payer MEDICAID, SELFPAY ==
[2022-07-04 20:21] VITALS: BP 130/79; PULSE 106; RESP 14; TEMP 36.7; O2SAT 99
[2022-07-04 20:26] VITALS: BP 138/84; PULSE 86; RESP 18; TEMP 36.6; O2SAT 96
--- NOTE | 2022-07-04 20:45 | ECG_ITS ---
[facility] Test Date: 2022-07-04 Pat Name: Alonso June Department: Room: Gender: Male Housekeeping Director: : 1975 Requested By: Jb Jaime Order Number: [id number] Janel MD: Richie Macias M.D. Measurements Intervals [place] Rate: 79 P: 71 MD: 148 QRS: 83 QRSD: 93 T: 75 QT: 344 QTc: 396 Interpretive Statements SINUS RHYTHM MODERATE VOLTAGE CRITERIA FOR LVH, CONSIDER NORMAL VARIANT [MEETS CRITERIA IN ONE OF: R(aVL), S(V1), R(V5), R(V5/V6)+S(V1)] Compared to ECG 06/30/2022 23:32:43 T-wave abnormality no longer present Possible ischemia no longer present Electronically Signed On 07-05-2022 10:06:17 BOILERS AND PRESSURE VESSELS INSPECTOR by Richie Macias M.D. [id number]
--- NOTE | 2022-07-04 20:48 | W.ED.PSYCHS ---
HPI - Psych General: Chief Complaint: Psychiatric Symptoms Stated Complaint: depression, wants npu Time Seen by Provider: 07/04/22 20:23 Source: patient Mode of arrival: ambulatory Limitations: no limitations History of Present Illness: 47-year-old male states he has been having increased depression all suicidal thoughts over the last 2 days. He states he has a plan to kill himself by walking in front of traffic. He has been admitted the past over the summer he denies any worsening improving factors. Has no other complaints at this time Associated symptoms: Reports depression and suicidal ideation Review of Systems Const: Denies: fever(s), chills, body aches or change in appetite Eyes: Denies: blurry vision or eye discomfort ENMT: Denies: throat pain or dental pain Card: Denies: chest pain Resp: Denies: dyspnea GI: Denies: abdominal pain, nausea, vomiting or diarrhea : Denies: dysuria Musc: Denies: neck pain or back pain Skin/Breast: Denies: rash Neuro: Denies: headache(s) Psych: Reports: depression and suicidal ideation Melquiades/Lymph: Denies: easy bruising All/Imm: Denies: urticaria PFSH ED PFSH: Medical History Angina pectoris, unstable Benign essential HTN Bipolar disorder without psychotic features Bradycardia CAD (coronary artery disease) 9stents Chest pain CVA (cerebrovascular accident) Diabetes Dyslipidemia (high LDL; low HDL) Former smoker HTN (hypertension) Vasovagal episode Surgical History History of appendectomy Family History Other No pertinent family history Social History Smoking and tobacco status: former smoker Alcohol intake: never Housing: House Physical Exam Const: COMMON NORMALS: no acute distress, patient oriented x3 and healthy appearing HENMT: COMMON NORMALS: normocephalic and atraumatic HEAD & SCALP: normocephalic and atraumatic Eye: COMMON NORMALS: Equal, round and reactive pupils present and EOMs intact bilaterally PUPIL: Yes Equal, round and reactive pupils present Neck/C-Spine: COMMON NORMALS: full ROM and supple Chest: COMMONS NORMALS: normal inspection of the chest and normal palpation of entire chest wall Resp: COMMON NORMALS: normal respiratory effort, No retractions, No use of accessory muscles and clear to auscultation bilaterally AUSCULTATION: clear to auscultation bilaterally Cardio: COMMON NORMALS: regular rate, regular rhythm and No murmurs present (Cardio) RATE: regular rate RHYTHM: regular rhythm GI: COMMON NORMALS: Normal to inspection, nondistended, normoactive bowel sounds present, Soft to palpation, non-tender and no masses PALPATION: Yes Soft to palpation Extremity: COMMON NORMALS: normal to inspection and full ROM Neuro: COMMON NORMALS: patient oriented x3, moves all extremities and no focal motor deficits Psych: COMMON NORMALS: mental status grossly normal, Normal thought process present and cooperative MOOD & AFFECT: Yes depressed mood THOUGHT PROCESS: Normal thought process present THOUGHT CONTENT: Yes Suicidality present Skin: COMMON NORMALS: no rashes or lesions noted and no wounds GENERAL SKIN EXAM: no rashes or lesions noted Course Vital Signs: Vital signs: Vital Signs Temperature 98 F 07/04/22 20:26 Pulse Rate 86 07/04/22 20:26 Respiratory Rate 18 07/04/22 20:26 Blood Pressure 138/84 07/04/22 20:26 Pulse Oximetry 96 07/04/22 20:26 Oxygen Delivery Me thod 07/04/22 20:21 MDM - Psych Medical Decision Making Patient presents here with suicidal ideation he has been cooperative. He is voluntary did get acceptance at [facility] will transfer there as we have no bed availability. Lab Data 07/04/22 20:35 07/04/22 20:35 Laboratory Results WBC 7.8 10^3/uL (4.0-10.0) 07/04/22 20:35 RBC 5.36 10^6/uL (4.1-5.3) H 07/04/22 20:35 Hgb 11.8 g/dL (11.7-16.6) 07/04/22 20:35 Hct 38.9 % (42.0-52.0) L 07/04/22 20:35 MCV 72.6 fl (80-94) L 07/04/22 20:35 MCH 22.0 pg (28.0-34.0) L 07/04/22 20:35 MCHC 30.3 g/dL (30.0-36.0) 07/04/22 20:35 RDW 19.9 % (12.1-15.1) H 07/04/22 20:35 Plt Count 257 10^3/cmm (130-400) 07/04/22 20:35 MPV 12.1 fL (7.4-10.4) H 07/04/22 20:35 Neut % (Auto) 47.4 % 07/04/22 20:35 Lymph % (Auto) 33.3 % 07/04/22 20:35 Harris % (Auto) 13.8 % 07/04/22 20:35 Eos % (Auto) 4.2 % 07/04/22 20:35 Baso % (Auto) 1.0 % 07/04/22 20:35 Neut # (Auto) 3.69 10^3/uL (1.8-7.7) 07/04/22 20:35 Lymph # (Auto) 2.6 10^3/uL (0.8-4.8) 07/04/22 20:35 Harris # (Auto) 1.1 10^3/uL (0.2-0.9) H 07/04/22 20:35 Eos # (Auto) 0.3 10^3/uL (0.0-0.8) 07/04/22 20:35 Baso # (Auto) 0.1 10^3/uL (0.0-0.1) 07/04/22 20:35 Nucleated RBC % (auto) 0 % 07/04/22 20:35 Nucleated RBCs # 0.0 /100WBC 07/04/22 20:35 Sodium 139 mmol/L (136-145) 07/04/22 20:35 Potassium 3.6 mmol/L (3.5-5.1) 07/04/22 20:35 Chloride 103 mmol/L (98-107) 07/04/22 20:35 Carbon Dioxide 26 mmol/L (22-29) 07/04/22 20:35 Anion Gap 13.6 (5-19) 07/04/22 20:35 BUN 15 mg/dL (6-20) 07/04/22 20:35 Creatinine 0.9 mg/dL (0.7-1.2) 07/04/22 20:35 GFR Calculation 91.3 mL/min (90-130) 07/04/22 20:35 Glucose 94 mg/dL (65-115) 07/04/22 20:35 Calculated Osmolality 289 mOsm/kg (285-295) 07/04/22 20:35 Calcium 9.4 mg/dL (8.5-10.5) 07/04/22 20:35 Total Bilirubin 0.2 mg/dL (0.15-1.2) 07/04/22 20:35 AST 10 U/L (0-40) 07/04/22 20:35 ALT 7 U/L (0-41) 07/04/22 20:35 Alkaline Phosphatase 85 U/L (40-130) 07/04/22 20:35 Total Protein 7.4 g/dL (6.6-8.7) 07/04/22 20:35 Albumin 4.2 g/dL (3.5-5.2) 07/04/22 20:35 Globulin 3.2 g/dL (1.3-4.6) 07/04/22 20:35 TSH 0.70 uIU/mL (0.27-4.20) 07/04/22 20:35 Urine Color Yellow (Yellow) 07/04/22 20:30 Urine Appearance Clear (CLEAR) 07/04/22 20:30 Urine pH 7 (5-7) 07/04/22 20:30 Ur Specific [place] 1.015 (1.005-1.030) 07/04/22 20:30 Urine Protein Neg (Negative) 07/04/22 20: Urine Glucose (UA) Norm (Normal) 07/04/22 20:30 Urine Ketones 1+ (Negative) H 07/04/22 20:30 Urine Blood Neg (Negative) 07/04/22 20:30 Urine Nitrate Negative (Negative) 07/04/22 20: Urine Bilirubin Neg (Negative) 07/04/22 20: Urine Urobilinogen Neg mg/dL (Negative) 07/04/22 20:30 Ur Leukocyte Esterase Negative (Negative) 07/04/22 20:30 Salicylates < 0.3 mg/dL (3-10) L 07/04/22 20: Urine Opiates Screen Negative ng/mL (Negative) 07/04/22 20:30 Acetaminophen < 5.0 ug/mL (10-30) L 07/04/22 20:35 Ur Barbiturates Screen Negative ng/mL (Negative) 07/04/22 20:30 Ur Phencyclidine Scrn Negative ng/mL (Negative) 07/04/22 20:30 Ur Amphetamines Screen Negative ng/mL (Negative) 07/04/22 20:30 U Benzodiazepines Scrn Negative ng/mL (Negative) 07/04/22 20:30 Urine Cocaine Screen Negative ng/mL (Negative) 07/04/22 20:30 U Marijuana (THC) Screen Negative ng/mL (Negative) 07/04/22 20:30 Ethyl Alcohol < 10 mg/dL (0-10) 07/04/22 20:35 SARS-CoV-2 Ag (Rapid) negative (Negative) 07/04/22 21:10 Discharge Plan Discharge Patient Disposition: [facility]fer [facility] Clinical Impression: Suicidal ideation Condition: Stable Referrals: Cecily Miller MD [Primary Care Provider] - Coding Level of Care Code ED Certified Ophthalmic Surgical Assistant for Chg Fwd Exam Comprehensive
[2022-07-04 20:59] LABS: Basophils # 0.1 10^3/uL (0.0-0.1); Eosinophils # 0.3 10^3/uL (0.0-0.8); Eosinophils % 4.2 %; Hematocrit 38.9 % (42.0-52.0); Hemoglobin 11.8 g/dL (11.7-16.6); Lymphocytes # 2.6 10^3/uL (0.8-4.8); Lymphocytes % 33.3 %; Mean Corpuscular HGB Conc 30.3 g/dL (30.0-36.0); Mean Corpuscular Volume 72.6 fl (80-94); Mean Platelet Volume 12.1 fL (7.4-10.4); Monocytes # 1.1 10^3/uL (0.2-0.9); Monocytes % 13.8 %; Neutrophils # 3.69 10^3/uL (1.8-7.7); Neutrophils % 47.4 %; Nucleated Red Blood Cells % 0 %; Platelet Count 257 10^3/cmm (130-400); Red Blood Count 5.36 10^6/uL (4.1-5.3); Red Cell Distribution Width 19.9 % (12.1-15.1); White Blood Count 7.8 10^3/uL (4.0-10.0)
[2022-07-04 21:04] LABS: Amphetamines Screen Urine Negative (Negative); Barbiturates Screen Urine Negative (Negative); Benzodiazepines Screen Urine Negative (Negative); Cocaine Screen Urine Negative (Negative); Opiate Screen Urine Negative (Negative); PCP Screen Urine Negative (Negative); THC Screen Urine Negative (Negative)
[2022-07-04 21:15] LABS: Alanine Aminotransferase 7 U/L (0-41); Albumin Level 4.2 g/dL (3.5-5.2); Alkaline Phosphatase 85 U/L (40-130); Anion Gap 13.6 (5-19); Aspartate Amino Transferase 10 U/L (0-40); Blood Urea Nitrogen 15 mg/dL (6-20); Calcium 9.4 mg/dL (8.5-10.5); Carbon Dioxide 26 mmol/L (22-29); Chloride 103 mmol/L (98-107); Globulin 3.2 g/dL (1.3-4.6); Glomerular Filtration Rate 91.3 mL/min (90-130); Glucose 94 mg/dL (65-115); Osmolality Calculated 289 mOsm/kg (285-295); Potassium 3.6 mmol/L (3.5-5.1); Sodium 139 mmol/L (136-145); Total Bilirubin 0.2 mg/dL (0.15-1.2); Total Protein 7.4 g/dL (6.6-8.7)
[2022-07-04 21:17] LABS: Acetaminophen < 5.0 ug/mL (10-30); Alcohol Level < 10 mg/dL (0-10); Salicylate < 0.3 mg/dL (3-10)
[2022-07-04 21:33] LABS: Slide Review Slide Review Perform
[2022-07-04 21:34] LABS: SARS Covid-2 Antigen negative (Negative)
--- NOTE | 2022-07-05 00:05 | PC.NURSE ---
Report from MCAARIO Benitez. Pt moved to room 8 at this time.
[2022-07-05 00:29] LABS: Add Urine Microscopic? NO; Charge for UA Resulting for Rev
[2022-07-05 00:32] LABS: Bilirubin Urine Neg (Negative); Blood Urine Neg (Negative); Glucose Urine UA Norm (Normal); Ketones Urine 1+ (Negative); Leukocyte Esterase Urine Negative (Negative); Nitrate Urine Negative (Negative); Protein Urine Neg (Negative); Specific Gravity, Urine 1.015 (1.005-1.030); Urine Appearance Clear (CLEAR); Urine Color Yellow (Yellow); Urobilinogen Urine Neg (Negative); pH Urine 7 (5-7)
[2022-07-05] MEDS: acetaminophen 500 mg Tablet 1000 MG PO (01:02)
--- NOTE | 2022-07-05 04:07 | PC.NURSE ---
Jaye updated on DC information. Pt updated
== END 2022-07-05 08:22 ==
PROVIDERS: Emergency Provider Emergency Medicine; PCP Internal Medicine
DX: R45.851 Suicidal ideations (principal); Z20.822 Contact with and (suspected) exposure to COVID-19; I25.10 Atherosclerotic heart disease of native coronary artery without angina pectoris; I10 Essential (primary) hypertension; Z86.73 Personal history of transient ischemic attack (TIA), and cerebral infarction without residual deficits; E11.9 Type 2 diabetes mellitus without complications; E78.5 Hyperlipidemia, unspecified; Z87.891 Personal history of nicotine dependence
CPT/HCPCS: 36415; 80053; 80306; 80307; 81003; 84443; 85025; 87426; 93005; 99285

== ENCOUNTER 2022-07-12 21:27 | Emergency (ER) | payer MEDICAID, OTHER, SELFPAY ==
--- NOTE | 2022-07-12 21:49 | XRR_ITS ---
PROCEDURE INFORMATION: Exam: XR Chest Exam date and time: 07/12/2022 10:16 PM Age: 47 years old Clinical indication: Sternal or substernal pain; Prior surgery; Surgery type: Stents; Additional info: Cp TECHNIQUE: Imaging protocol: Radiologic exam of the chest. Views: 1 view. COMPARISON: CR XR chest 1V portable [id number] 06/30/2022 9:16 PM FINDINGS: Lungs: Stable COPD . Pleural spaces: Unremarkable. No pleural effusion. No pneumothorax. Heart/Mediastinum: Unremarkable. No cardiomegaly. Bones/joints: Unremarkable. XR/XR chest 1V portable [id number] IMPRESSION: Stable COPD .
[2022-07-12 21:57] VITALS: BP 181/71; PULSE 94; RESP 16; TEMP 36.7; O2SAT 98
--- NOTE | 2022-07-12 22:01 | ECG_ITS ---
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 Measurements Intervals [place] Rate: 94 P: 75 ND: 152 QRS: 76 QRSD: 84 T: 70 QT: 332 QTc: 416 Interpretive Statements SINUS RHYTHM MODERATE VOLTAGE CRITERIA FOR LVH, CONSIDER NORMAL VARIANT [MEETS CRITERIA IN ONE OF: R(aVL), S(V1), R(V5), R(V5/V6)+S(V1)] Compared to ECG 07/04/2022 21:08:48 No significant changes Electronically Signed On 07-14-2022 7:49:40 CATTERY OPERATOR by Heath Pacheco M.D. [id number]
[2022-07-12 22:53] VITALS: BP 172/68; PULSE 92; RESP 18; O2SAT 98
[2022-07-13 00:44] VITALS: BP 138/87; PULSE 84; RESP 20; O2SAT 95
[2022-07-13] MEDS: OLANZapine 10 mg ODT 20 MG PO (01:31)
[2022-07-13 01:34] VITALS: BP 138/89; PULSE 70; RESP 14; O2SAT 96
--- NOTE | 2022-07-13 06:07 | W.ED.CHESTPA ---
HPI - Chest Pain General: Chief Complaint: Chest Pain Stated Complaint: Chest Pains Time Seen by Provider: 07/12/22 22:00 Source: patient History of Present Illness: 47-year-old male well-known to the emergency department complaining of left-sided chest pain. He says it woke him from sleep. On my examination he has been sleeping, but wakes up to grab his left chest when prompted. He denies significant cough or fever. MD complaint: chest pain Pertinent past history: other Onset (ago): minute(s) Timing of current episode: still present Prior episodes: Yes Onset: during rest and awoke with symptoms Pain location: left chest Pain radiation: none Quality: sharp Relieving factors: nothing Exacerbating factors: nothing Associated symptoms: Reports dyspnea and nausea; Deny abdominal pain, diaphoresis, fever(s), palpitations or vomiting Treatment prior to arrival: none Review of Systems Const: Denies: fever(s) or diaphoresis ENMT: Denies: throat pain Card: Reports: chest pain; Denies: palpitations Resp: Reports: dyspnea GI: Reports: nausea; Denies: abdominal pain or vomiting PFS ED PFSH: Medical History Angina pectoris, unstable Benign essential HTN Bipolar disorder without psychotic features Bradycardia CAD (coronary artery disease) 9stents Chest pain CVA (cerebrovascular accident) Diabetes Dyslipidemia (high LDL; low HDL) Former smoker HTN (hypertension) Vasovagal episode Surgical History History of appendectomy Family History Other No pertinent family history Social History Smoking and tobacco status: former smoker Alcohol intake: never Housing: House Physical Exam Const: COMMON NORMALS: no acute distress GENERAL APPEARANCE: cooperative; not ill appearing and not frail appearing HENMT: COMMON NORMALS: normocephalic, atraumatic and Normal external nose present HEAD & SCALP: normocephalic and atraumatic FACE & SINUS: normal facial exam and face symmetric NOSE: Normal external nose present Eye: COMMON NORMALS: Equal, round and reactive pupils present and EOMs intact bilaterally PUPIL: Yes Equal, round and reactive pupils present Neck/C-Spine: GENERAL: Yes trachea midline Chest: CHEST: Yes Symmetrical chest wall rise Resp: COMMON NORMALS: normal respiratory effort, No retractions, No use of accessory muscles and clear to auscultation bilaterally AUSCULTATION: clear to auscultation bilaterally Cardio: COMMON NORMALS: regular rate and regular rhythm RATE: regular rate RHYTHM: regular rhythm GI: COMMON NORMALS: Normal to inspection, nondistended, normoactive bowel sounds present Extremity: COMMON NORMALS: no pedal edema Neuro: JULIANO COMA SCALE: document GCS findings Juliano coma scale eye opening: Spontaneous Juliano coma scale verbal response: Orientated [place] coma scale motor response: Obey commands [place] coma scale total score: 15 SENSORY EXAM: Yes extremities (intact) Psych: COMMON NORMALS: speech normal SPEECH: Yes normal speech Skin: COMMON NORMALS: no rashes or lesions noted GENERAL SKIN EXAM: no rashes or lesions noted Course Vital Signs: Vital signs: Vital Signs Temperature 98.0 F 07/12/22 21:57 Pulse Rate 70 07/13/22 01:34 Respiratory Rate 14 07/13/22 01:34 Blood Pressure 138/89 07/13/22 01:34 Pulse Oximetry 96 07/13/22 01:34 Oxygen Delivery Me thod 07/13/22 00:44 MDM - Chest Pain Medical Decision Making Patient is resting comfortably on exam. His vitals are normal. EKG is normal. Chest x-ray is nonacute. He will be discharged. Outpatient follow-up. Lab Data Radiology Impressions Chest X-Ray 07/12/22 21:49 IMPRESSION: Stable COPD . Discharge Plan Discharge Patient Disposition: Home Clinical Impression: Chest pain Condition: Stable Prescriptions: No Action [id number]-[id number] 50-325-40 mg tablet 2 tab PO BID PRN (Reason: Migraine Headache) Hold Instructions: interaction with aspirin albuterol sulfate [ProAir HFA] 90 mcg/actuation HFA aerosol inhaler 2 puff INHALATION Q4H PRN (Reason: Shortness Of Breath) 1 Days Qty: 30 0RF hydroxyzine HCl 25 mg tablet 25 mg PO BID PRN (Reason: nausea and vomiting) insulin glargine [Lantus Solostar U-100 Insulin] 100 unit/mL (3 mL) insulin pen 5 unit SUBCUT BEDTIME Qty: 15 0RF insulin aspart U-100 [Novolog FlexPen U-100 Insulin] 100 unit/mL (3 mL) insulin pen See Rx Instructions .ROUTE .COMPLEX Qty: 15 0RF Rx Instructions: Inject, 3 times daily, after meals, based on sliding scale provided ondansetron HCl 4 mg tablet 4 mg PO Q6H PRN (Reason: nausea and vomiting) Qty: 20 0RF Nitrostat 0.4 mg Tablet, Sublingual 0.4 mg SUBLINGUAL Q5M PRN (Reason: Chest Pain) 30 Days Qty: 60 1RF Rx Instructions: do not exceed 3 doses per episode escitalopram oxalate 10 mg Tablet 10 mg PO DAILY 30 Days Qty: 30 1RF atorvastatin 40 mg tablet 40 mg PO BEDTIME 30 Days Qty: 30 1RF aspirin 81 mg Tablet,Delayed Release (Dr/Ec) 81 mg PO QAM 30 Days Qty: 30 1RF cyclobenzaprine 10 mg tablet 10 mg PO BID PRN (Reason: muscle spasm) Qty: 20 0RF acetaminophen 500 mg tablet 500 mg PO Q6H PRN (Reason: pain) Qty: 30 0RF clopidogrel [Plavix] 75 mg tablet 75 mg PO DAILY Qty: 30 0RF baclofen 10 mg tablet 10 mg PO Q8H PRN (Reason: muscle spasm) Qty: 10 0RF Reglan 10 mg tablet 10 mg PO QID PRN (Reason: Nausea) quetiapine 50 mg tablet 50 mg PO BEDTIME ranolazine 500 mg tablet extended release 12 hr 500 mg PO Q12H amlodipine 5 mg Tablet 5 mg PO DAILY Qty: 30 0RF isosorbide mononitrate 60 mg tablet extended release 24 hr 60 mg PO BID Qty: 30 0RF Discharge Orders: Discharge ED (Routine); Ordered 07/13/22 Ordered By: Pete Noguera Referrals: Cecily Miller MD [Primary Care Provider] - Patient Instructions: Chest Pain (ED) Coding Level of Care Code ED Flat Machine Cutter for Marcelino Stephen
== END 2022-07-13 01:35 | disposition home or self-care (01) ==
PROVIDERS: Emergency Provider Emergency Medicine; PCP Internal Medicine
DX: R07.9 Chest pain, unspecified (principal); Z79.82 Long term (current) use of aspirin; Z79.02 Long term (current) use of antithrombotics/antiplatelets; Z79.4 Long term (current) use of insulin; I10 Essential (primary) hypertension; I25.10 Atherosclerotic heart disease of native coronary artery without angina pectoris; Z86.73 Personal history of transient ischemic attack (TIA), and cerebral infarction without residual deficits; E11.9 Type 2 diabetes mellitus without complications; E78.5 Hyperlipidemia, unspecified; Z87.891 Personal history of nicotine dependence
CPT/HCPCS: 71045; 93005; 99284

== ENCOUNTER 2022-07-13 04:30 | Emergency (ER) | payer MEDICAID, SELFPAY ==
[2022-07-13 04:36] VITALS: BP 121/76; PULSE 61; RESP 18; TEMP 36.4; O2SAT 99
--- NOTE | 2022-07-13 05:49 | XRR_ITS ---
PROCEDURE INFORMATION: Exam: XR Left Knee Exam date and time: 07/13/2022 5:56 AM Age: 47 years old Clinical indication: Injury or trauma; Fall; Blunt trauma; Knee; Left; Additional info: Fall knee pain TECHNIQUE: Imaging protocol: Radiologic exam of the Left knee. Views: 3 views. AP [place] Lateral COMPARISON: No relevant prior studies available. FINDINGS: Bones/joints: There is normal alignment without fractures or dislocations. The medial and lateral tibiofemoral compartments and patellofemoral compartment are unremarkable. There are no joint bodies. Soft tissues: There is a tiny knee joint effusion. There are no radiopaque foreign bodies. There is minimal knee region soft tissue swelling. Notes: If there is further concern, recommend follow-up radiographs or MRI for complete assessment. XR/XR knee LT 3V* [id number] IMPRESSION: No fractures or dislocation of the left knee. Tiny knee joint effusion. Minimal knee region soft tissue swelling.
--- NOTE | 2022-07-13 06:23 | ED_ITS ---
HPI - Fall General: Chief Complaint: Fall Stated Complaint: Left Knee Pain Time Seen by Provider: 07/13/22 05:48 Source: patient Mode of arrival: ambulatory History of Present Illness: 47-year-old man presents he states he was walking down the road stumbled and fell there is no loss consciousness he is asleep when I entered the room. He has not had any chest pain or weakness. Patient has landed on his left knee. He was able to ambulate to the ER after this denies any other injury. Patient has a history of multiple admissions to the ER with complaints of chest pain and excessive intervention including CTs and angiograms all of which have been negative. 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 Patient has no lateralizing symptoms at this time. MD complaint: fall Onset (ago): minute(s) Fall from: standing Place fall occurred: street Loss of consciousness: None Context: tripped/slipped Location of injury - extremities: Left: knee Associated symptoms-after fall: Denies abdominal pain, chest pain, confusion, difficulty walking, headache(s), hematuria, lightheadedness, neck pain, numbness, short of breath, vertigo or weakness Review of Systems Const: Denies: fever(s), chills, body aches, change in appetite, fatigue or malaise ENMT: Denies: throat pain, ear or mastoid pain, nasal discharge or nasal congestion Card: Denies: chest pain, palpitations, irregular heart rhythm or light headedness Resp: Denies: dyspnea, productive cough or non-productive cough GI: Denies: abdominal pain : Denies: hematuria Musc: Denies: neck pain Skin/Breast: Denies: rash or pruritus Neuro: Denies: headache(s), difficulty walking, vertigo or confusion PFSH ED PFSH: Medical History Angina pectoris, unstable Benign essential HTN Bipolar disorder without psychotic features Bradycardia CAD (coronary artery disease) 9stents Chest pain CVA (cerebrovascular accident) Diabetes Dyslipidemia (high LDL; low HDL) Former smoker HTN (hypertension) Vasovagal episode Surgical History History of appendectomy Family History Other No pertinent family history Social History Smoking and tobacco status: former smoker Alcohol intake: never Housing: House Physical Exam Const: GENERAL APPEARANCE: cooperative and comfortable ORIENTATION/CONSCIOUSNESS: Yes awake HENMT: COMMON NORMALS: normocephalic, atraumatic and hearing grossly normal bilaterally HEAD & SCALP: normocephalic and atraumatic Resp: COMMON NORMALS: normal respiratory effort, No retractions, No use of accessory muscles and clear to auscultation bilaterally AUSCULTATION: clear to auscultation bilaterally Cardio: COMMON NORMALS: regular rate, regular rhythm and No murmurs present (Cardio) RATE: regular rate RHYTHM: regular rhythm GI: COMMON NORMALS: Soft to palpation and No hepatosplenomegaly present AUSCULTATION: Yes normoactive bowel sounds PALPATION: Yes Soft to palpation, No Tenderness to palpation present (GI), No Guarding due to palpation present (GI) and Yes No hepatosplenomegaly present Extremity: COMMON NORMALS: normal to inspection, capillary refill normal, no clubbing, cyanosis or edema, no calf tenderness and no pedal edema Skin: COMMON NORMALS: no rashes or lesions noted GENERAL SKIN EXAM: no rashes or lesions noted Course Vital Signs: Vital signs: Vital Signs Temperature 97.6 F 07/13/22 04:36 Pulse Rate 61 07/13/22 04:36 Respiratory Rate 18 07/13/22 04:36 Blood Pressure 121/76 07/13/22 04:36 Pulse Oximetry 99 07/13/22 04:36 Oxygen Delivery Me thod 07/13/22 04:36 MDM - Fall Medical Decision Making X-rays negative continue his current medications ice ibuprofen elevation for the leg. Return to the emergency room as needed otherwise follow-up with his primary care physician. Medical Records I reviewed the patient's medical records. Lab Data I reviewed the patient's lab results. Radiology Impressions Knee X-Ray 07/13/22 05:49 IMPRESSION: No fractures or dislocation of the left knee. Tiny knee joint effusion. Minimal knee region soft tissue swelling. Discharge Plan Discharge Patient Disposition: Home Clinical Impression: Knee sprain Condition: Stable Prescriptions: No Action rkfzlrhdll-uvpbxpavyxamm-hrtz 50-325-40 mg tablet 2 tab PO BID PRN (Reason: Migraine Headache) Hold Instructions: interaction with aspirin albuterol sulfate [ProAir HFA] 90 mcg/actuation HFA aerosol inhaler 2 puff INHALATION Q4H PRN (Reason: Shortness Of Breath) 1 Days Qty: 30 0RF hydroxyzine HCl 25 mg tablet 25 mg PO BID PRN (Reason: nausea and vomiting) insulin glargine [Lantus Solostar U-100 Insulin] 100 unit/mL (3 mL) insulin pen 5 unit SUBCUT BEDTIME Qty: 15 0RF insulin aspart U-100 [Novolog FlexPen U-100 Insulin] 100 unit/mL (3 mL) insulin pen See Rx Instructions .ROUTE .COMPLEX Qty: 15 0RF Rx Instructions: Inject, 3 times daily, after meals, based on sliding scale provided ondansetron HCl 4 mg tablet 4 mg PO Q6H PRN (Reason: nausea and vomiting) Qty: 20 0RF Nitrostat 0.4 mg Tablet, Sublingual 0.4 mg SUBLINGUAL Q5M PRN (Reason: Chest Pain) 30 Days Qty: 60 1RF Rx Instructions: do not exceed 3 doses per episode escitalopram oxalate 10 mg Tablet 10 mg PO DAILY 30 Days Qty: 30 1RF atorvastatin 40 mg tablet 40 mg PO BEDTIME 30 Days Qty: 30 1RF aspirin 81 mg Tablet,Delayed Release (Dr/Ec) 81 mg PO QAM 30 Days Qty: 30 1RF cyclobenzaprine 10 mg tablet 10 mg PO BID PRN (Reason: muscle spasm) Qty: 20 0RF acetaminophen 500 mg tablet 500 mg PO Q6H PRN (Reason: pain) Qty: 30 0RF clopidogrel [Plavix] 75 mg tablet 75 mg PO DAILY Qty: 30 0RF baclofen 10 mg tablet 10 mg PO Q8H PRN (Reason: muscle spasm) Qty: 10 0RF Reglan 10 mg tablet 10 mg PO QID PRN (Reason: Nausea) quetiapine 50 mg tablet 50 mg PO BEDTIME ranolazine 500 mg tablet extended release 12 hr 500 mg PO Q12H amlodipine 5 mg Tablet 5 mg PO DAILY Qty: 30 0RF isosorbide mononitrate 60 mg tablet extended release 24 hr 60 mg PO BID Qty: 30 0RF Discharge Orders: Discharge ED (Routine); Ordered 07/13/22 Ordered By: Kam Martinez Referrals: Cecily Miller MD [Primary Care Provider] - Discharge Diet: Usual diet Discharge Activity: Increase activity as tolerated Patient Instructions: Opioid Safety, Pain Management Activity Restrictions/Additional Instructions: You were seen for left knee pain after a fall. Your x-ray was normal structurally the knee is intact to exam recommend ice Tylenol or ibuprofen. Follow-up with your primary care doctor you have persistent symptoms. Coding Level of Care Code ED Crowning Inspector for Marcelino Stephen
[2022-07-13 06:34] VITALS: PULSE 60; RESP 14; O2SAT 97
== END 2022-07-13 06:34 | disposition home or self-care (01) ==
PROVIDERS: Emergency Provider Family Medicine; PCP Internal Medicine
DX: S83.91XA Sprain of unspecified site of right knee, initial encounter (principal); Z79.82 Long term (current) use of aspirin; Z79.02 Long term (current) use of antithrombotics/antiplatelets; Z79.4 Long term (current) use of insulin; I25.10 Atherosclerotic heart disease of native coronary artery without angina pectoris; I10 Essential (primary) hypertension; Z86.73 Personal history of transient ischemic attack (TIA), and cerebral infarction without residual deficits; E11.9 Type 2 diabetes mellitus without complications; E78.5 Hyperlipidemia, unspecified; Z87.891 Personal history of nicotine dependence; W01.0XXA Fall on same level from slipping, tripping and stumbling without subsequent striking against object, initial encounter
CPT/HCPCS: 73562; 99283

== ENCOUNTER 2022-07-19 09:22 | Emergency (ER) | payer MEDICAID, SELFPAY ==
[2022-07-19 09:29] VITALS: BP 153/64; PULSE 71; RESP 13; TEMP 36.3; O2SAT 100; BMI 25.8
--- NOTE | 2022-07-19 09:57 | ECG_ITS ---
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 Measurements Intervals [place] Rate: 71 P: 76 [place]: 156 QRS: 83 QRSD: 88 T: 52 QT: 375 QTc: 408 Interpretive Statements SINUS RHYTHM MODERATE VOLTAGE CRITERIA FOR LVH, CONSIDER NORMAL VARIANT [MEETS CRITERIA IN ONE OF: R(aVL), S(V1), R(V5), R(V5/V6)+S(V1)] Compared to ECG 07/12/2022 22:01:09 No significant changes Electronically Signed On 07-19-2022 21:42:44 STEAM BLOCKER by Heath Pacheco M.D. [id number]
[2022-07-19 10:32] VITALS: BP 150/86; PULSE 76; RESP 12; O2SAT 99
--- NOTE | 2022-07-19 10:33 | ED_ITS ---
HPI - SOB/Dyspnea General: Chief Complaint: Shortness of Breath/Dyspnea Stated Complaint: sob Time Seen by Provider: 07/19/22 09:50 History of Present Illness: HPI Narrative: This patient is a 47 year old presenting to the ED with complaints of fever, nausea, nasal congestion and dry cough for 2 days. He also complains of chest pain and shortness of breath. He tells me that he has had 6 heart attacks, 4 strokes and 3 massive coronaries. He has had a sick contact - his daughter is sick with similar symptoms. He is a frequent ED patient, with similar complaints and has had extensive work ups for chest pain and neuro symptoms - most recent cath in 04/11 was clean with patent stents. He is diabetic and has some COPD, as well as bipolar d/o. [facility] PFSH: Medical History Angina pectoris, unstable Benign essential HTN Bipolar disorder without psychotic features Bradycardia CAD (coronary artery disease) 9stents Chest pain CVA (cerebrovascular accident) Diabetes Dyslipidemia (high LDL; low HDL) Former smoker HTN (hypertension) Vasovagal episode Surgical History History of appendectomy Family History Other No pertinent family history Social History Smoking and tobacco status: former smoker Alcohol intake: never Housing: House Physical Exam Const: COMMON NORMALS: no acute distress, patient oriented x3, no limitations and alert GENERAL APPEARANCE: cooperative and comfortable HENMT: HEAD & SCALP: normal to inspection FACE & SINUS: normal facial exam Eye: GENERAL EYE: appearance normal, both eyes and all related structures Neck/C-Spine: COMMON NORMALS: supple, no meningeal signs and no JVD Chest: COMMONS NORMALS: normal inspection of the chest Resp: COMMON NORMALS: normal respiratory effort, No use of accessory muscles and clear to auscultation bilaterally AUSCULTATION: clear to auscultation bilaterally Cardio: COMMON NORMALS: no JVD, regular rate, regular rhythm and No murmurs present (Cardio) RATE: regular rate RHYTHM: regular rhythm GI: COMMON NORMALS: Normal to inspection, nondistended, normoactive bowel sounds present, Soft to palpation and non-tender INSPECTION: Yes normal to inspection AUSCULTATION: Yes normoactive bowel sounds PALPATION: Yes Soft to palpation Back/Pelvis: COMMON NORMALS: thoracic and lumbar spine normal to inspection Extremity: COMMON NORMALS: normal to inspection Neuro: COMMON NORMALS: patient oriented x3, moves all extremities, no focal motor deficits and no sensory deficits noted SENSORIUM/ORIENTATION: Yes alert MENINGEAL SIGNS: Yes no meningeal signs Psych: COMMON NORMALS: mental status grossly normal, cooperative and normal affect Skin: COMMON NORMALS: no rashes or lesions noted and turgor normal GENERAL SKIN EXAM: no rashes or lesions noted and turgor normal Course Vital Signs: Vital signs: Vital Signs Temperature 97.3 F L 07/19/22 09:29 Pulse Rate 76 07/19/22 10:32 Respiratory Rate 12 07/19/22 10:32 Blood Pressure 150/86 07/19/22 10:32 Pulse Oximetry 99 07/19/22 10:32 Oxygen Delivery Me thod 07/19/22 09:29 MDM - SOB/Dyspnea Medical Decision Making Upper respiratory infection symptoms including fever reported at home. Afebrile here. Flu, COVID swabs pending. EKG due to chest pain - essentially unchanged from multiple prior and without evidence of ischemia. Lungs clear on exam. Given the impressive number of xrays he has had, I don't think a chest xray is merited. Neg COVID, FLU a and b. Likely a different viral URI - no further treatment or ED evaluation needed at this time. Patient discharged with symptomatic management recommendations, outpatient follow up. Lab Data Labs/Radiology: Laboratory Results Influenza Type A Ag negative (Negative) 07/19/22 10:21 Influenza Type B Ag negative (Negative) 07/19/22 10:21 SARS-CoV-2 Ag (Rapid) negative (Negative) 07/19/22 10:21 Discharge Plan Discharge Patient Disposition: Home Clinical Impression: Chest pain Upper respiratory infection Qualifiers: URI type: unspecified viral URI Qualified Code(s): J06.9 - Acute upper respiratory infection, unspecified Condition: Stable Prescriptions: No Action [id number]-dhhessijusmbs-[id number] 50-325-40 mg tablet 2 tab PO BID PRN (Reason: Migraine Headache) Hold Instructions: interaction with aspirin albuterol sulfate [ProAir HFA] 90 mcg/actuation HFA aerosol inhaler 2 puff INHALATION Q4H PRN (Reason: Shortness Of Breath) 1 Days Qty: 30 0RF hydroxyzine HCl 25 mg tablet 25 mg PO BID PRN (Reason: nausea and vomiting) insulin glargine [Lantus Solostar U-100 Insulin] 100 unit/mL (3 mL) insulin pen 5 unit SUBCUT BEDTIME Qty: 15 0RF insulin aspart U-100 [Novolog FlexPen U-100 Insulin] 100 unit/mL (3 mL) insulin pen See Rx Instructions .ROUTE .COMPLEX Qty: 15 0RF Rx Instructions: Inject, 3 times daily, after meals, based on sliding scale provided ondansetron HCl 4 mg tablet 4 mg PO Q6H PRN (Reason: nausea and vomiting) Qty: 20 0RF Nitrostat 0.4 mg Tablet, Sublingual 0.4 mg SUBLINGUAL Q5M PRN (Reason: Chest Pain) 30 Days Qty: 60 1RF Rx Instructions: do not exceed 3 doses per episode escitalopram oxalate 10 mg Tablet 10 mg PO DAILY 30 Days Qty: 30 1RF atorvastatin 40 mg tablet 40 mg PO BEDTIME 30 Days Qty: 30 1RF aspirin 81 mg Tablet,Delayed Release (Dr/Ec) 81 mg PO QAM 30 Days Qty: 30 1RF cyclobenzaprine 10 mg tablet 10 mg PO BID PRN (Reason: muscle spasm) Qty: 20 0RF acetaminophen 500 mg tablet 500 mg PO Q6H PRN (Reason: pain) Qty: 30 0RF clopidogrel [Plavix] 75 mg tablet 75 mg PO DAILY Qty: 30 0RF baclofen 10 mg tablet 10 mg PO Q8H PRN (Reason: muscle spasm) Qty: 10 0RF Reglan 10 mg tablet 10 mg PO QID PRN (Reason: Nausea) quetiapine 50 mg tablet 50 mg PO BEDTIME ranolazine 500 mg tablet extended release 12 hr 500 mg PO Q12H amlodipine 5 mg Tablet 5 mg PO DAILY Qty: 30 0RF isosorbide mononitrate 60 mg tablet extended release 24 hr 60 mg PO BID Qty: 30 0RF Discharge Orders: Discharge ED (Routine); Ordered 07/19/22 Ordered By: Clarisse Lucero Referrals: Cecily Miller MD [Primary Care Provider] - Discharge Diet: Usual diet Discharge Activity: Resume usual activity Patient Instructions: Opioid Safety, Pain Management Activity Restrictions/Additional Instructions: Use tylenol as needed for fever. Rest and drink plenty of fluids. Follow up with your PCP if not improving within 5 days. Return to the ED if new or worse symptoms. Coding Level of Care Code ED Diversional Therapist'S Assistant for Rajivg Fwd Exam Comprehensive
[2022-07-19 11:02] LABS: Influenza A by IFA negative (Negative); Influenza B by IFA negative (Negative)
[2022-07-19 11:03] LABS: SARS Covid-2 Antigen negative (Negative)
[2022-07-19 11:15] VITALS: BP 125/88; PULSE 82; RESP 14; O2SAT 100
[2022-07-19 11:25] VITALS: BP 136/80; PULSE 100; RESP 14; O2SAT 94
== END 2022-07-19 11:26 | disposition home or self-care (01) ==
PROVIDERS: Emergency Provider Emergency Medicine; PCP Internal Medicine
DX: R07.9 Chest pain, unspecified (principal); J06.9 Acute upper respiratory infection, unspecified; Z79.82 Long term (current) use of aspirin; Z79.02 Long term (current) use of antithrombotics/antiplatelets; Z79.4 Long term (current) use of insulin; Z20.822 Contact with and (suspected) exposure to COVID-19; I10 Essential (primary) hypertension; I25.10 Atherosclerotic heart disease of native coronary artery without angina pectoris; Z86.73 Personal history of transient ischemic attack (TIA), and cerebral infarction without residual deficits; E11.9 Type 2 diabetes mellitus without complications; E78.5 Hyperlipidemia, unspecified; Z87.891 Personal history of nicotine dependence
CPT/HCPCS: 87426; 87804; 93005; 99283

== ENCOUNTER 2022-07-24 08:59 | Emergency (ER) | payer MEDICAID, SELFPAY ==
[2022-07-24 09:03] VITALS: BP 120/73; PULSE 77; RESP 18; TEMP 36.3; O2SAT 100; BMI 23.3
--- NOTE | 2022-07-24 09:05 | XR_ITS ---
WS: [id number] Right shoulder, 3 views, 07/24/2022 Clinical Data: fall Comparison: None. Findings: No fractures or dislocations are seen. The AC joint is normal. The adjacent right clavicle, right sca pula and ribs are normal. The soft tissues are unremarkable. XR/XR shoulder RT min 2V* [id number] Impression: Negative right shoulder.
--- NOTE | 2022-07-24 09:30 | W.ED.FALL ---
HPI - Fall General: Chief Complaint: Fall Stated Complaint: Fall, Right shoulder injury Time Seen by Provider: 07/24/22 09:04 Source: patient Mode of arrival: ambulatory History of Present Illness: 47-year-old male he slipped and fell on a porch landed on his right shoulder no loss conscious did not strike his head no other injuries. He is able to move his fingers there is no loss of sensation. Happened just prior to arrival. MD complaint: fall Onset (ago): minute(s) Fall from: standing Place fall occurred: home Loss of consciousness: None Symptoms prior to fall: none Context: tripped/slipped Location of injury - extremities: Right: shoulder Severity: moderate Quality: sharp Associated symptoms-after fall: Denies abdominal pain, chest pain, confusion, difficulty walking, headache(s), neck pain, numbness, short of breath, vertigo or weakness Review of Systems Const: Denies: fever(s) or chills Card: Denies: chest pain GI: Denies: abdominal pain Musc: Denies: neck pain Neuro: Denies: headache(s), difficulty walking, vertigo or confusion PFSH ED PFSH: Medical History Angina pectoris, unstable Benign essential HTN Bipolar disorder without psychotic features Bradycardia CAD (coronary artery disease) 9stents Chest pain CVA (cerebrovascular accident) Diabetes Dyslipidemia (high LDL; low HDL) Former smoker HTN (hypertension) Vasovagal episode Surgical History History of appendectomy Family History Other No pertinent family history Social History Smoking and tobacco status: former smoker Alcohol intake: never Housing: House Physical Exam Const: COMMON NORMALS: no acute distress GENERAL APPEARANCE: cooperative and comfortable ORIENTATION/CONSCIOUSNESS: Yes awake, Yes oriented to person, Yes oriented to place and Yes oriented to time HENMT: COMMON NORMALS: normocephalic, atraumatic and hearing grossly normal bilaterally HEAD & SCALP: normocephalic and atraumatic Resp: COMMON NORMALS: normal respiratory effort, No retractions, No use of accessory muscles and clear to auscultation bilaterally AUSCULTATION: clear to auscultation bilaterally Cardio: COMMON NORMALS: regular rate, regular rhythm and No murmurs present (Cardio) RATE: regular rate RHYTHM: regular rhythm Extremity: COMMON NORMALS: normal to inspection, capillary refill normal, no clubbing, cyanosis or edema, no calf tenderness and no pedal edema OTHER: Semination of the right shoulder full range of motion no crepitus no deformity no sign of rotator cuff impingement Neuro: SENSORIUM/ORIENTATION: Yes oriented to person, Yes oriented to place and Yes oriented to time Skin: COMMON NORMALS: no rashes or lesions noted GENERAL SKIN EXAM: no rashes or lesions noted Course Vital Signs: Vital signs: Vital Signs Temperature 97.3 F L 07/24/22 09:03 Pulse Rate 77 07/24/22 09:03 Respiratory Rate 18 07/24/22 09:03 Blood Pressure 120/73 07/24/22 09:03 Pulse Oximetry 100 07/24/22 09:03 Oxygen Delivery Me thod 07/24/22 09:03 MDM - Fall Medical Decision Making X-ray reviewed no acute fracture. On range of motion exam patient has intact rotator cuff is likely shoulder sprain can use anti-inflammatories any discharged home Lab Data I reviewed the patient's lab results. X-ray right shoulder negative Radiology Impressions Shoulder X-Ray 07/24/22 09:05 Impression: Negative right shoulder. Discharge Plan Discharge Patient Disposition: Home Clinical Impression: Fall, Sprain of right shoulder Condition: Stable Prescriptions: No Action omdhcwaqhz-fevwuvgdjknrn-ugyr 50-325-40 mg tablet 2 tab PO BID PRN (Reason: Migraine Headache) Hold Instructions: interaction with aspirin albuterol sulfate [ProAir HFA] 90 mcg/actuation HFA aerosol inhaler 2 puff INHALATION Q4H PRN (Reason: Shortness Of Breath) 1 Days Qty: 30 0RF hydroxyzine HCl 25 mg tablet 25 mg PO BID PRN (Reason: nausea and vomiting) insulin glargine [Lantus Solostar U-100 Insulin] 100 unit/mL (3 mL) insulin pen 5 unit SUBCUT BEDTIME Qty: 15 0RF insulin aspart U-100 [Novolog FlexPen U-100 Insulin] 100 unit/mL (3 mL) insulin pen See Rx Instructions .ROUTE .COMPLEX Qty: 15 0RF Rx Instructions: Inject, 3 times daily, after meals, based on sliding scale provided ondansetron HCl 4 mg tablet 4 mg PO Q6H PRN (Reason: nausea and vomiting) Qty: 20 0RF Nitrostat 0.4 mg Tablet, Sublingual 0.4 mg SUBLINGUAL Q5M PRN (Reason: Chest Pain) 30 Days Qty: 60 1RF Rx Instructions: do not exceed 3 doses per episode escitalopram oxalate 10 mg Tablet 10 mg PO DAILY 30 Days Qty: 30 1RF atorvastatin 40 mg tablet 40 mg PO BEDTIME 30 Days Qty: 30 1RF aspirin 81 mg Tablet,Delayed Release (Dr/Ec) 81 mg PO QAM 30 Days Qty: 30 1RF cyclobenzaprine 10 mg tablet 10 mg PO BID PRN (Reason: muscle spasm) Qty: 20 0RF acetaminophen 500 mg tablet 500 mg PO Q6H PRN (Reason: pain) Qty: 30 0RF clopidogrel [Plavix] 75 mg tablet 75 mg PO DAILY Qty: 30 0RF baclofen 10 mg tablet 10 mg PO Q8H PRN (Reason: muscle spasm) Qty: 10 0RF Reglan 10 mg tablet 10 mg PO QID PRN (Reason: Nausea) quetiapine 50 mg tablet 50 mg PO BEDTIME ranolazine 500 mg tablet extended release 12 hr 500 mg PO Q12H amlodipine 5 mg Tablet 5 mg PO DAILY Qty: 30 0RF isosorbide mononitrate 60 mg tablet extended release 24 hr 60 mg PO BID Qty: 30 0RF Discharge Orders: Discharge ED (Routine); Ordered 07/24/22 Ordered By: Kam Martinez Referrals: Cecily Miller MD [Primary Care Provider] - Discharge Diet: Usual diet Discharge Activity: Increase activity as tolerated Activity Restrictions/Additional Instructions: Seen today for a fall with right shoulder pain x-rays were negative you have full range of motion of the shoulder normal vascular and neurologic function. You can use Tylenol or ibuprofen ice as needed if symptoms persist follow-up with your primary care doctor. Coding Level of Care Code ED Automatic Spinning Lathe Operator for Marcelino Stephen
== END 2022-07-24 09:44 | disposition home or self-care (01) ==
PROVIDERS: Emergency Provider Family Medicine; PCP Internal Medicine
DX: S43.401A Unspecified sprain of right shoulder joint, initial encounter (principal); Z79.82 Long term (current) use of aspirin; Z79.02 Long term (current) use of antithrombotics/antiplatelets; Z79.4 Long term (current) use of insulin; I10 Essential (primary) hypertension; I25.10 Atherosclerotic heart disease of native coronary artery without angina pectoris; Z86.73 Personal history of transient ischemic attack (TIA), and cerebral infarction without residual deficits; E11.9 Type 2 diabetes mellitus without complications; E78.5 Hyperlipidemia, unspecified; Z87.891 Personal history of nicotine dependence; W01.0XXA Fall on same level from slipping, tripping and stumbling without subsequent striking against object, initial encounter
CPT/HCPCS: 73030; 99283

== ENCOUNTER 2022-07-26 20:01 | Emergency (ER) | payer MEDICAID, SELFPAY ==
[2022-07-26 20:13] VITALS: BP 157/75; PULSE 104; RESP 14; TEMP 36.8; O2SAT 99; BMI 23.3
--- NOTE | 2022-07-26 20:31 | ECG_ITS ---
[facility] Test Date: 2022-07-26 Pat Name: Alonso June Department: Room: Gender: Male Butcher'S Assistant: : 1975 Requested By: Pete Maloney Order Number: [id number] Janel MD: Regine Bar M.D. Measurements Intervals [place] Rate: 87 P: 65 MA: 147 QRS: 69 QRSD: 97 T: 69 QT: 340 QTc: 410 Interpretive Statements SINUS RHYTHM MODERATE VOLTAGE CRITERIA FOR LVH, CONSIDER NORMAL VARIANT [MEETS CRITERIA IN ONE OF: R(aVL), S(V1), R(V5), R(V5/V6)+S(V1)] Compared to ECG 07/19/2022 09:57:29 No significant changes Electronically Signed On 07-27-2022 8:40:18 FILM LABORATORY TECHNICIAN by Regine Bar M.D. [email or web address]
[2022-07-26 20:52] LABS: Basophils # 0.1 10^3/uL (0.0-0.1); Basophils % 0.7 %; Eosinophils # 0.3 10^3/uL (0.0-0.8); Eosinophils % 3.2 %; Hematocrit 38.5 % (42.0-52.0); Hemoglobin 11.9 g/dL (11.7-16.6); Lymphocytes # 2.6 10^3/uL (0.8-4.8); Lymphocytes % 25.1 %; Mean Corpuscular HGB Conc 30.9 g/dL (30.0-36.0); Mean Corpuscular Hemoglobin 22.4 pg (28.0-34.0); Mean Corpuscular Volume 72.4 fl (80-94); Mean Platelet Volume 11.5 fL (7.4-10.4); Monocytes # 1.4 10^3/uL (0.2-0.9); Monocytes % 13.3 %; Neutrophils # 5.93 10^3/uL (1.8-7.7); Neutrophils % 57.4 %; Nucleated Red Blood Cells % 0 %; Platelet Count 291 10^3/cmm (130-400); Red Blood Count 5.32 10^6/uL (4.1-5.3); Red Cell Distribution Width 19.4 % (12.1-15.1); White Blood Count 10.3 10^3/uL (4.0-10.0)
[2022-07-26 20:57] LABS: Add Urine Microscopic? NO; Charge for UA Resulting for Rev
[2022-07-26 21:01] LABS: Bilirubin Urine Neg (Negative); Blood Urine Neg (Negative); Glucose Urine UA Norm (Normal); Ketones Urine Negative (Negative); Leukocyte Esterase Urine Negative (Negative); Nitrate Urine Negative (Negative); Protein Urine Neg (Negative); Specific Gravity, Urine 1.005 (1.005-1.030); Urine Appearance Clear (CLEAR); Urine Color Light yellow (Yellow); Urobilinogen Urine Neg (Negative); pH Urine 6 (5-7)
[2022-07-26 21:10] LABS: Amphetamines Screen Urine Negative (Negative); Barbiturates Screen Urine Negative (Negative); Benzodiazepines Screen Urine Negative (Negative); Cocaine Screen Urine Negative (Negative); Opiate Screen Urine Negative (Negative); PCP Screen Urine Negative (Negative); THC Screen Urine Negative (Negative)
[2022-07-26 21:12] LABS: SARS Covid-2 Antigen negative (Negative)
[2022-07-26 21:15] LABS: Alanine Aminotransferase 7 U/L (0-41); Albumin Level 4.4 g/dL (3.5-5.2); Alkaline Phosphatase 84 U/L (40-130); Anion Gap 16.4 (5-19); Aspartate Amino Transferase 10 U/L (0-40); Blood Urea Nitrogen 11 mg/dL (6-20); Calcium 9.5 mg/dL (8.5-10.5); Carbon Dioxide 23 mmol/L (22-29); Chloride 103 mmol/L (98-107); Globulin 2.7 g/dL (1.3-4.6); Glomerular Filtration Rate 91.3 mL/min (90-130); Glucose 107 mg/dL (65-115); Osmolality Calculated 288 mOsm/kg (285-295); Potassium 3.4 mmol/L (3.5-5.1); Sodium 139 mmol/L (136-145); Thyroid Stimulating Hormone 1.06 uIU/mL (0.27-4.20); Total Bilirubin 0.2 mg/dL (0.15-1.2); Total Protein 7.1 g/dL (6.6-8.7)
[2022-07-26 21:16] LABS: Acetaminophen < 5.0 ug/mL (10-30); Alcohol Level < 10 mg/dL (0-10); Salicylate < 0.3 mg/dL (3-10)
[2022-07-26 21:26] LABS: Slide Review Slide Review Perform
--- NOTE | 2022-07-26 22:24 | W.ED.PSYCHS ---
Documented by User: Pete Noguera DO 07/27/22 18:39 HPI - Psych General: Chief Complaint: Psychiatric Symptoms Stated Complaint: Ph Eval Time Seen by Provider: 07/26/22 20:23 Source: patient History of Present Illness: 47-year-old male well-known to the emergency department service. Presents with suicidal ideation. He states that he tried to walk out in front of 2 cars earlier in the evening, because he wants to end his life. He notes that after having these feelings, he decided to come to the emergency department. His only other complaint is that of a headache. He states he was last admitted for psychiatric problems last fall. MD complaint: suicidal ideation and feels depressed Duration: constant History of same: Yes Relieving factors: none Exacerbating factors: none Context: significant life stressor Associated psychiatric symptoms: depression and suicidal ideation Associated symptoms: Reports suicidal ideation; Deny visual hallucinations, delusions, depression or homicidal ideation Treatments prior to arrival: none Review of Systems Const: Denies: fever(s) or chills Eyes: Denies: change in vision ENMT: Denies: throat pain Card: Denies: chest pain Resp: Denies: dyspnea, productive cough or non-productive cough GI: Denies: abdominal pain Neuro: Reports: headache(s) Psych: Reports: suicidal ideation; Denies: depression, visual hallucinations or homicidal ideation [facility] ED PFSH: Medical History Angina pectoris, unstable Benign essential HTN Bipolar disorder without psychotic features Bradycardia CAD (coronary artery disease) 9stents Chest pain CVA (cerebrovascular accident) Diabetes Dyslipidemia (high LDL; low HDL) Former smoker HTN (hypertension) Vasovagal episode Surgical History History of appendectomy Family History Other No pertinent family history Social History Smoking and tobacco status: former smoker Alcohol intake: never Housing: House Physical Exam Const: COMMON NORMALS: no acute distress GENERAL APPEARANCE: cooperative; not ill appearing and not frail appearing HENMT: COMMON NORMALS: normocephalic, atraumatic and Normal external nose present HEAD & SCALP: normocephalic and atraumatic FACE & SINUS: normal facial exam and face symmetric NOSE: Normal external nose present Eye: COMMON NORMALS: Equal, round and reactive pupils present and EOMs intact bilaterally PUPIL: Yes Equal, round and reactive pupils present Neck/C-Spine: GENERAL: Yes trachea midline Chest: CHEST: Yes Symmetrical chest wall rise Resp: COMMON NORMALS: normal respiratory effort, No retractions, No use of accessory muscles and clear to auscultation bilaterally AUSCULTATION: clear to auscultation bilaterally Cardio: COMMON NORMALS: regular rate and regular rhythm RATE: regular rate RHYTHM: regular rhythm GI: COMMON NORMALS: Normal to inspection, nondistended, normoactive bowel sounds present Extremity: COMMON NORMALS: no pedal edema Neuro: JULIANO COMA SCALE: document GCS findings [place] coma scale eye opening: Spontaneous Juliano coma scale verbal response: Orientated Juliano coma scale motor response: Obey commands Juliano coma scale total score: 15 SENSORY EXAM: Yes extremities (intact) Psych: COMMON NORMALS: speech normal SPEECH: Yes normal speech THOUGHT CONTENT: No delusions Skin: COMMON NORMALS: no rashes or lesions noted GENERAL SKIN EXAM: no rashes or lesions noted Course Vital Signs: Vital signs: Vital Signs Temperature 97.1 F L 07/27/22 10:35 Pulse Rate 69 07/27/22 10:35 Respiratory Rate 18 07/27/22 10:35 Blood Pressure 120/70 07/27/22 10:35 Pulse Oximetry 97 07/27/22 10:35 Oxygen Delivery Me thod 07/26/22 20:13 MDM - Psych Medical Decision Making The patient is completely voluntary for admission, so he is not placed under 96-hour hold. Medically he is quite stable. Spoke with psychiatry. We have no beds available at our facility. Attempting to call some other facilities to see if transfer is possible. Have called multiple facilities across the state. No beds are available for this patient. We will see if psychiatry will come evaluate the patient later this morning. He remains medically stable. We will check out to the oncoming physician at shift change Lab Data 07/26/22 20:39 07/26/22 20:39 Laboratory Results WBC 10.3 10^3/uL (4.0-10.0) H 07/26/22 20:39 RBC 5.32 10^6/uL (4.1-5.3) H 07/26/22 20:39 Hgb 11.9 g/dL (11.7-16.6) 07/26/22 20:39 Hct 38.5 % (42.0-52.0) L 07/26/22 20:39 MCV 72.4 fl (80-94) L 07/26/22 20:39 MCH 22.4 pg (28.0-34.0) L 07/26/22 20: MCHC 30.9 g/dL (30.0-36.0) 07/26/22 20:39 RDW 19.4 % (12.1-15.1) H 07/26/22 20:39 Plt Count 291 10^3/cmm (130-400) 07/26/22 20: MPV 11.5 fL (7.4-10.4) H 07/26/22 20:39 Neut % (Auto) 57.4 % 07/26/22 20:39 Lymph % (Auto) 25.1 % 07/26/22 20:39 [place] % (Auto) 13.3 % 07/26/22 20:39 Eos % (Auto) 3.2 % 07/26/22 20:39 Baso % (Auto) 0.7 % 07/26/22 20:39 Neut # (Auto) 5.93 10^3/uL (1.8-7.7) 07/26/22 20:39 Lymph # (Auto) 2.6 10^3/uL (0.8-4.8) 07/26/22 20:39 [place] # (Auto) 1.4 10^3/uL (0.2-0.9) H 07/26/22 20:39 Eos # (Auto) 0.3 10^3/uL (0.0-0.8) 07/26/22 20:39 Baso # (Auto) 0.1 10^3/uL (0.0-0.1) 07/26/22 20: Nucleated RBC % (auto) 0 % 07/26/22 20: Nucleated RBCs # 0.0 /100WBC 07/26/22 20:39 Sodium 139 mmol/L (136-145) 07/26/22 20:39 Potassium 3.4 mmol/L (3.5-5.1) L 07/26/22 20:39 Chloride 103 mmol/L (98-107) 07/26/22 20:39 Carbon Dioxide 23 mmol/L (22-29) 07/26/22 20:39 Anion Gap 16.4 (5-19) 07/26/22 20:39 BUN 11 mg/dL (6-20) 07/26/22 20:39 Creatinine 0.9 mg/dL (0.7-1.2) 07/26/22 20:39 GFR Calculation 91.3 mL/min (90-130) 07/26/22 20:39 Glucose 107 mg/dL (65-115) 07/26/22 20:39 Calculated Osmolality 288 mOsm/kg (285-295) 07/26/22 20:39 Calcium 9.5 mg/dL (8.5-10.5) 07/26/22 20:39 Total Bilirubin 0.2 mg/dL (0.15-1.2) 07/26/22 20:39 AST 10 U/L (0-40) 07/26/22 20:39 ALT 7 U/L (0-41) 07/26/22 20:39 Alkaline Phosphatase 84 U/L (40-130) 07/26/22 20:39 Total Protein 7.1 g/dL (6.6-8.7) 07/26/22 20:39 Albumin 4.4 g/dL (3.5-5.2) 07/26/22 20:39 Globulin 2.7 g/dL (1.3-4.6) 07/26/22 20:39 TSH 1.06 uIU/mL (0.27-4.20) 07/26/22 20:39 Urine Color Light yellow (Yellow) 07/26/22 20:40 Urine Appearance Clear (CLEAR) 07/26/22 20:40 Urine pH 6 (5-7) 07/26/22 20:40 Ur Specific [place] 1.005 (1.005-1.030) 07/26/22 20:40 Urine Protein Neg (Negative) 07/26/22 20:40 Urine Glucose (UA) Norm (Normal) 07/26/22 20:40 Urine Ketones Negative (Negative) 07/26/22 20:40 Urine Blood Neg (Negative) 07/26/22 20:40 Urine Nitrate Negative (Negative) 07/26/22 20:40 Urine Bilirubin Neg (Negative) 07/26/22 20:40 Urine Urobilinogen Neg mg/dL (Negative) 07/26/22 20:40 Ur Leukocyte Esterase Negative (Negative) 07/26/22 20:40 Salicylates < 0.3 mg/dL (3-10) L 07/26/22 20:39 Urine Opiates Screen Negative ng/mL (Negative) 07/26/22 20:40 Acetaminophen < 5.0 ug/mL (10-30) L 07/26/22 20:39 Ur Barbiturates Screen Negative ng/mL (Negative) 07/26/22 20:40 Ur Phencyclidine Scrn Negative ng/mL (Negative) 07/26/22 20:40 Ur Amphetamines Screen Negative ng/mL (Negative) 07/26/22 20:40 U Benzodiazepines Scrn Negative ng/mL (Negative) 07/26/22 20:40 Urine Cocaine Screen Negative ng/mL (Negative) 07/26/22 20:40 U Marijuana (THC) Screen Negative ng/mL (Negative) 07/26/22 20:40 Ethyl Alcohol < 10 mg/dL (0-10) 07/26/22 20:39 SARS-CoV-2 Ag (Rapid) negative (Negative) 07/26/22 20:40 Discharge Plan Discharge Patient Disposition: Home Clinical Impression: Suicidal ideation Condition: Stable Prescriptions: No Action bdrjdokikg-[id number]-qqvq 50-325-40 mg tablet 2 tab PO BID PRN (Reason: Migraine Headache) Hold Instructions: interaction with aspirin albuterol sulfate [ProAir HFA] 90 mcg/actuation HFA aerosol inhaler 2 puff INHALATION Q4H PRN (Reason: Shortness Of Breath) 1 Days Qty: 30 0RF hydroxyzine HCl 25 mg tablet 25 mg PO BID PRN (Reason: nausea and vomiting) insulin glargine [Lantus Solostar U-100 Insulin] 100 unit/mL (3 mL) insulin pen 5 unit SUBCUT BEDTIME Qty: 15 0RF insulin aspart U-100 [Novolog FlexPen U-100 Insulin] 100 unit/mL (3 mL) insulin pen See Rx Instructions .ROUTE .COMPLEX Qty: 15 0RF Rx Instructions: Inject, 3 times daily, after meals, based on sliding scale provided ondansetron HCl 4 mg tablet 4 mg PO Q6H PRN (Reason: nausea and vomiting) Qty: 20 0RF Nitrostat 0.4 mg Tablet, Sublingual 0.4 mg SUBLINGUAL Q5M PRN (Reason: Chest Pain) 30 Days Qty: 60 1RF Rx Instructions: do not exceed 3 doses per episode escitalopram oxalate 10 mg Tablet 10 mg PO DAILY 30 Days Qty: 30 1RF atorvastatin 40 mg tablet 40 mg PO BEDTIME 30 Days Qty: 30 1RF aspirin 81 mg Tablet,Delayed Release (Dr/Ec) 81 mg PO QAM 30 Days Qty: 30 1RF cyclobenzaprine 10 mg tablet 10 mg PO BID PRN (Reason: muscle spasm) Qty: 20 0RF acetaminophen 500 mg tablet 500 mg PO Q6H PRN (Reason: pain) Qty: 30 0RF clopidogrel [Plavix] 75 mg tablet 75 mg PO DAILY Qty: 30 0RF baclofen 10 mg tablet 10 mg PO Q8H PRN (Reason: muscle spasm) Qty: 10 0RF Reglan 10 mg tablet 10 mg PO QID PRN (Reason: Nausea) quetiapine 50 mg tablet 50 mg PO BEDTIME ranolazine 500 mg tablet extended release 12 hr 500 mg PO Q12H amlodipine 5 mg Tablet 5 mg PO DAILY Qty: 30 0RF isosorbide mononitrate 60 mg tablet extended release 24 hr 60 mg PO BID Qty: 30 0RF Discharge Orders: Discharge ED (Routine); Ordered 07/27/22 Ordered By: Kam Martinez Referrals: Cecily Miller MD [Primary Care Provider] - Discharge Diet: Usual diet Discharge Activity: Resume usual activity Patient Instructions: Opioid Safety, Pain Management Activity Restrictions/Additional Instructions: You were seen in the emergency room for suicidal ideation. Your behavior was induced by use of alcohol and methamphetamines. After discussion with Dr. Barbour since the effects of the alcohol and meth have resolved and you are no longer expressing suicidal ideation we both thought you could be discharged home. Recommend that you do not drink alcohol or use methamphetamines in the future. Sign Out Sign Out Data: Patient Sign Out occurred on 07/27/22 at 07:20. Patient's care was discussed, and care was transferred from to Kam Martinez DO. Coding Level of Care Code ED Food Production Manager for Chg Fwd Documented by User: Kam Martinez DO 07/29/22 06:26 HPI - Psych General: Chief Complaint: Psychiatric Symptoms Stated Complaint: Ph Eval Time Seen by Provider: 07/26/22 20:23 PFSH ED PFSH: Medical History Angina pectoris, unstable Benign essential HTN Bipolar disorder without psychotic features Bradycardia CAD (coronary artery disease) 9stents Chest pain CVA (cerebrovascular accident) Diabetes Dyslipidemia (high LDL; low HDL) Former smoker HTN (hypertension) Vasovagal episode Surgical History History of appendectomy Family History Other No pertinent family history Social History Smoking and tobacco status: former smoker Alcohol intake: never Housing: House Physical Exam Neuro: JULIANO COMA SCALE: document GCS findings [place] coma scale total score: 15 Course Vital Signs: Vital signs: Vital Signs Temperature 97.1 F L 07/27/22 10:35 Pulse Rate 69 07/27/22 10:35 Respiratory Rate 18 07/27/22 10:35 Blood Pressure 120/70 07/27/22 10:35 Pulse Oximetry 97 07/27/22 10:35 Oxygen Delivery Me thod 07/26/22 20:13 MDM - Psych Medical Decision Making The patient is completely voluntary for admission, so he is not placed under 96-hour hold. Medically he is quite stable. Spoke with psychiatry. We have no beds available at our facility. Attempting to call some other facilities to see if transfer is possible. Have called multiple facilities across the state. No beds are available for this patient. We will see if psychiatry will come evaluate the patient later this morning. He remains medically stable. We will check out to the oncoming physician at shift change. Assumed care at change of shift. We have been trying to find placement for the patient and has not had any receiving facilities except him. He has sobered up now he is awake and alert and he states he is no longer suicidal. I called and discussed with Dr. Barbour. This patient is a well-known entity to both the ER and psychiatry. Dr. Barbour and I concur that he can be discharged home at this point. Encourage patient to seek care for substance abuse refer for to [facility] to [facility] or he can seek out another similar type facility. Medical Records I reviewed the patient's medical records. Lab Data I reviewed the patient's lab results. 07/26/22 20:39 07/26/22 20:39 Laboratory Results WBC 10.3 10^3/uL (4.0-10.0) H 07/26/22 20:39 RBC 5.32 10^6/uL (4.1-5.3) H 07/26/22 20:39 Hgb 11.9 g/dL (11.7-16.6) 07/26/22 20:39 Hct 38.5 % (42.0-52.0) L 07/26/22 20:39 MCV 72.4 fl (80-94) L 07/26/22 20:39 MCH 22.4 pg (28.0-34.0) L 07/26/22 20:39 MCHC 30.9 g/dL (30.0-36.0) 07/26/22 20:39 RDW 19.4 % (12.1-15.1) H 07/26/22 20:39 Plt Count 291 10^3/cmm (130-400) 07/26/22 20:39 MPV 11.5 fL (7.4-10.4) H 07/26/22 20:39 Neut % (Auto) 57.4 % 07/26/22 20: Lymph % (Auto) 25.1 % 07/26/22 20:39 [place] % (Auto) 13.3 % 07/26/22 20:39 Eos % (Auto) 3.2 % 07/26/22 20:39 Baso % (Auto) 0.7 % 07/26/22 20:39 Neut # (Auto) 5.93 10^3/uL (1.8-7.7) 07/26/22 20: Lymph # (Auto) 2.6 10^3/uL (0.8-4.8) 07/26/22 20:39 [place] # (Auto) 1.4 10^3/uL (0.2-0.9) H 07/26/22 20:39 Eos # (Auto) 0.3 10^3/uL (0.0-0.8) 07/26/22 20:39 Baso # (Auto) 0.1 10^3/uL (0.0-0.1) 07/26/22 20:39 Nucleated RBC % (auto) 0 % 07/26/22 20:39 Nucleated RBCs # 0.0 /100WBC 07/26/22 20:39 Sodium 139 mmol/L (136-145) 07/26/22 20:39 Potassium 3.4 mmol/L (3.5-5.1) L 07/26/22 20:39 Chloride 103 mmol/L (98-107) 07/26/22 20:39 Carbon Dioxide 23 mmol/L (22-29) 07/26/22 20:39 Anion Gap 16.4 (5-19) 07/26/22 20:39 BUN 11 mg/dL (6-20) 07/26/22 20:39 Creatinine 0.9 mg/dL (0.7-1.2) 07/26/22 20:39 GFR Calculation 91.3 mL/min (90-130) 07/26/22 20:39 Glucose 107 mg/dL (65-115) 07/26/22 20:39 Calculated Osmolality 288 mOsm/kg (285-295) 07/26/22 20:39 Calcium 9.5 mg/dL (8.5-10.5) 07/26/22 20:39 Total Bilirubin 0.2 mg/dL (0.15-1.2) 07/26/22 20:39 AST 10 U/L (0-40) 07/26/22 20:39 ALT 7 U/L (0-41) 07/26/22 20:39 Alkaline Phosphatase 84 U/L (40-130) 07/26/22 20:39 Total Protein 7.1 g/dL (6.6-8.7) 07/26/22 20:39 Albumin 4.4 g/dL (3.5-5.2) 07/26/22 20:39 Globulin 2.7 g/dL (1.3-4.6) 07/26/22 20:39 TSH 1.06 uIU/mL (0.27-4.20) 07/26/22 20:39 Urine Color Light yellow (Yellow) 07/26/22 20:40 Urine Appearance Clear (CLEAR) 07/26/22 20:40 Urine pH 6 (5-7) 07/26/22 20:40 Ur Specific [place] 1.005 (1.005-1.030) 07/26/22 20:40 Urine Protein Neg (Negative) 07/26/22 20:40 Urine Glucose (UA) Norm (Normal) 07/26/22 20:40 Urine Ketones Negative (Negative) 07/26/22 20:40 Urine Blood Neg (Negative) 07/26/22 20:40 Urine Nitrate Negative (Negative) 07/26/22 20:40 Urine Bilirubin Neg (Negative) 07/26/22 20:40 Urine Urobilinogen Neg mg/dL (Negative) 07/26/22 20:40 Ur Leukocyte Esterase Negative (Negative) 07/26/22 20:40 Salicylates < 0.3 mg/dL (3-10) L 07/26/22 20:39 Urine Opiates Screen Negative ng/mL (Negative) 07/26/22 20:40 Acetaminophen < 5.0 ug/mL (10-30) L 07/26/22 20:39 Ur Barbiturates Screen Negative ng/mL (Negative) 07/26/22 20:40 Ur Phencyclidine Scrn Negative ng/mL (Negative) 07/26/22 20:40 Ur Amphetamines Screen Negative ng/mL (Negative) 07/26/22 20:40 U Benzodiazepines Scrn Negative ng/mL (Negative) 07/26/22 20:40 Urine Cocaine Screen Negative ng/mL (Negative) 07/26/22 20:40 U Marijuana (THC) Screen Negative ng/mL (Negative) 07/26/22 20:40 Ethyl Alcohol < 10 mg/dL (0-10) 07/26/22 20:39 SARS-CoV-2 Ag (Rapid) negative (Negative) 07/26/22 20:40 Discharge Plan Discharge Patient Disposition: Home Clinical Impression: Suicidal ideation Condition: Stable Prescriptions: No Action ilhppptvir-virvrngwdrcwy-idor 50-325-40 mg tablet 2 tab PO BID PRN (Reason: Migraine Headache) Hold Instructions: interaction with aspirin albuterol sulfate [ProAir HFA] 90 mcg/actuation HFA aerosol inhaler 2 puff INHALATION Q4H PRN (Reason: Shortness Of Breath) 1 Days Qty: 30 0RF hydroxyzine HCl 25 mg tablet 25 mg PO BID PRN (Reason: nausea and vomiting) insulin glargine [Lantus Solostar U-100 Insulin] 100 unit/mL (3 mL) insulin pen 5 unit SUBCUT BEDTIME Qty: 15 0RF insulin aspart U-100 [Novolog FlexPen U-100 Insulin] 100 unit/mL (3 mL) insulin pen See Rx Instructions .ROUTE .COMPLEX Qty: 15 0RF Rx Instructions: Inject, 3 times daily, after meals, based on sliding scale provided ondansetron HCl 4 mg tablet 4 mg PO Q6H PRN (Reason: nausea and vomiting) Qty: 20 0RF Nitrostat 0.4 mg Tablet, Sublingual 0.4 mg SUBLINGUAL Q5M PRN (Reason: Chest Pain) 30 Days Qty: 60 1RF Rx Instructions: do not exceed 3 doses per episode escitalopram oxalate 10 mg Tablet 10 mg PO DAILY 30 Days Qty: 30 1RF atorvastatin 40 mg tablet 40 mg PO BEDTIME 30 Days Qty: 30 1RF aspirin 81 mg Tablet,Delayed Release (Dr/Ec) 81 mg PO QAM 30 Days Qty: 30 1RF cyclobenzaprine 10 mg tablet 10 mg PO BID PRN (Reason: muscle spasm) Qty: 20 0RF acetaminophen 500 mg tablet 500 mg PO Q6H PRN (Reason: pain) Qty: 30 0RF clopidogrel [Plavix] 75 mg tablet 75 mg PO DAILY Qty: 30 0RF baclofen 10 mg tablet 10 mg PO Q8H PRN (Reason: muscle spasm) Qty: 10 0RF Reglan 10 mg tablet 10 mg PO QID PRN (Reason: Nausea) quetiapine 50 mg tablet 50 mg PO BEDTIME ranolazine 500 mg tablet extended release 12 hr 500 mg PO Q12H amlodipine 5 mg Tablet 5 mg PO DAILY Qty: 30 0RF isosorbide mononitrate 60 mg tablet extended release 24 hr 60 mg PO BID Qty: 30 0RF Discharge Orders: Discharge ED (Routine); Ordered 07/27/22 Ordered By: Kam Martinez Referrals: Cecily Miller MD [Primary Care Provider] - Discharge Diet: Usual diet Discharge Activity: Resume usual activity Patient Instructions: Opioid Safety, Pain Management Activity Restrictions/Additional Instructions: You were seen in the emergency room for suicidal ideation. Your behavior was induced by use of alcohol and methamphetamines. After discussion with Dr. Barbour since the effects of the alcohol and meth have resolved and you are no longer expressing suicidal ideation we both thought you could be discharged home. Recommend that you do not drink alcohol or use methamphetamines in the future. Sign Out Sign Out Data: Patient Sign Out occurred on 07/27/22 at 07:20. Patient's care was discussed, and care was transferred from to Kam Martinez DO. Coding Level of Care Code ED Food Production Manager for Marcelino Stephen
[2022-07-26] MEDS: acetaminophen 500 mg Tablet 1000 MG PO (23:37)
[2022-07-26] MEDS: SUMAtriptan 25 mg Tablet 100 MG PO (23:48)
[2022-07-27 06:00] VITALS: BP 120/70; PULSE 69; RESP 18; TEMP 36.2; O2SAT 97
--- NOTE | 2022-07-27 08:32 | PC.NURSE ---
Gave patient breakfast tray.
--- NOTE | 2022-07-27 09:16 | DCPLANNER ---
late entry - community mental health social worker was asked to look for psych placement for patient. The following facilities were called and patients information was faxed to: [place] - no beds [facility] - 0157 - 1 bed - faxed information - declined patient due to behaviors during last stay [facility] - no beds [facility] - [facility] - patient [facility] - [facility] beds [facility] - [facility] beds [facility] - no beds [facility] - no beds [facility] - faxed information [facility] - faxed information [facility] - faxed information
[2022-07-27 10:35] VITALS: BP 120/70; PULSE 69; RESP 18; TEMP 36.2; O2SAT 97
== END 2022-07-27 10:37 | disposition home or self-care (01) ==
PROVIDERS: Emergency Medicine; Emergency Provider Family Medicine; PCP Internal Medicine
DX: R45.851 Suicidal ideations (principal); Z20.822 Contact with and (suspected) exposure to COVID-19; Z79.82 Long term (current) use of aspirin; Z79.02 Long term (current) use of antithrombotics/antiplatelets; Z79.4 Long term (current) use of insulin; I10 Essential (primary) hypertension; I25.10 Atherosclerotic heart disease of native coronary artery without angina pectoris; Z86.73 Personal history of transient ischemic attack (TIA), and cerebral infarction without residual deficits; E11.9 Type 2 diabetes mellitus without complications; E78.5 Hyperlipidemia, unspecified; Z87.891 Personal history of nicotine dependence
CPT/HCPCS: 80053; 80306; 80307; 81003; 84443; 85025; 87426; 93005; 99285

== ENCOUNTER 2022-08-04 01:23 | Emergency (ER) | payer MEDICAID, SELFPAY ==
--- NOTE | 2022-08-04 01:28 | ECG_ITS ---
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 Measurements Intervals [place] Rate: 69 P: 59 W[place]: 147 QRS: 75 QRSD: 92 T: 50 QT: 360 QTc: 387 Interpretive Statements SINUS RHYTHM MODERATE VOLTAGE CRITERIA FOR LVH, CONSIDER NORMAL VARIANT [MEETS CRITERIA IN ONE OF: R(aVL), S(V1), R(V5), R(V5/V6)+S(V1)] Compared to ECG 07/26/2022 21:02:35 No significant changes Electronically Signed On 08-04-2022 7:42:22 COLLECTION ADVISOR by Heath Pacheco M.D. [email or web address]
--- NOTE | 2022-08-04 01:28 | XRR_ITS ---
PROCEDURE INFORMATION: Exam: XR Chest Exam date and time: 08/04/2022 1:54 AM Age: 47 years old Clinical indication: Chest pressure; Prior surgery; Surgery type: Coronary stents; Patient HX: C/O chest pain; Additional info: Cp TECHNIQUE: Imaging protocol: Radiologic exam of the chest. Views: 1 view. COMPARISON: CR (CHEST, ) 07/12/2022 10:16 PM FINDINGS: Lungs: No consolidation. Mild bilateral lower lung field hazy reticular opacities (right greater than left). Pleural spaces: No pleural effusion. No pneumothorax. Heart/Mediastinum: No cardiomegaly. Bones/joints: No acute fracture. XR/XR chest 1V portable [id number] IMPRESSION: Mild bilateral lower lung field hazy reticular opacities (right greater than left). Findings are nonspecific and may represent superimposition of overlying soft tissue structures/atelectasis secondary to low lung volumes and technique however other etiologies including mild evolving infectious and/or inflammatory process are also consideration, correlate clinically. A repeat upright full inspiratory PA of the chest may be helpful for further evaluation if clinically indicated.
[2022-08-04 01:34] VITALS: BP 115/71; PULSE 80; RESP 60; TEMP 36.1; O2SAT 99; BMI 23.3
--- NOTE | 2022-08-04 01:34 | ED_ITS ---
HPI - Chest Pain General: Chief Complaint: Chest Pain Stated Complaint: Chest Pains Time Seen by Provider: 08/04/22 01:27 Source: patient Mode of arrival: ambulatory Limitations: no limitations History of Present Illness: 47-year-old male who is very well-known to ER has been seen here multiple times for chest pain he has had multiple negative cath this year as well. He states that tonight he started having chest pain that is sharp in nature in the center of his chest denies any shortness of breath denies any fever denies any nausea vomiting does have some anxiety here with tachypnea. Associated symptoms: Deny abdominal pain, dyspnea, fever(s), nausea or vomiting Review of Systems Const: Denies: fever(s), chills, body aches or change in appetite Eyes: Denies: blurry vision or eye discomfort ENMT: Denies: throat pain or dental pain Card: Reports: chest pain Resp: Denies: dyspnea GI: Denies: abdominal pain, nausea, vomiting or diarrhea : Denies: dysuria Musc: Denies: neck pain or back pain Skin/Breast: Denies: rash Neuro: Denies: headache(s) Psych: Denies: depression Melquiades/Lymph: Denies: easy bruising All/Imm: Denies: urticaria PFSH ED PFSH: Medical History Angina pectoris, unstable Benign essential HTN Bipolar disorder without psychotic features Bradycardia CAD (coronary artery disease) 9stents Chest pain CVA (cerebrovascular accident) Diabetes Dyslipidemia (high LDL; low HDL) Former smoker HTN (hypertension) Vasovagal episode Surgical History History of appendectomy Family History Other No pertinent family history Social History Smoking and tobacco status: former smoker Alcohol intake: never Housing: House Physical Exam Const: COMMON NORMALS: no acute distress, patient oriented x3 and healthy appearing GENERAL APPEARANCE: anxious HENMT: COMMON NORMALS: normocephalic and atraumatic HEAD & SCALP: normocephalic and atraumatic Eye: COMMON NORMALS: Equal, round and reactive pupils present and EOMs intact bilaterally PUPIL: Yes Equal, round and reactive pupils present Neck/C-Spine: COMMON NORMALS: full ROM and supple Chest: COMMONS NORMALS: normal inspection of the chest and normal palpation of entire chest wall Resp: COMMON NORMALS: normal respiratory effort, No retractions, No use of accessory muscles and clear to auscultation bilaterally AUSCULTATION: clear to auscultation bilaterally Cardio: COMMON NORMALS: regular rate, regular rhythm and No murmurs present (Cardio) RATE: regular rate RHYTHM: regular rhythm GI: COMMON NORMALS: Normal to inspection, nondistended, normoactive bowel sounds present, Soft to palpation, non-tender and no masses PALPATION: Yes Soft to palpation Extremity: COMMON NORMALS: normal to inspection and full ROM Neuro: COMMON NORMALS: patient oriented x3, moves all extremities and no focal motor deficits Psych: COMMON NORMALS: mental status grossly normal, Normal thought process present and cooperative THOUGHT PROCESS: Normal thought process present Skin: COMMON NORMALS: no rashes or lesions noted and no wounds GENERAL SKIN EXAM: no rashes or lesions noted Course Vital Signs: Vital signs: Vital Signs Temperature 96.9 F L 08/04/22 01:34 Pulse Rate 78 08/04/22 02:12 Respiratory Rate 21 H 08/04/22 02:12 Blood Pressure 146/91 08/04/22 02:12 Pulse Oximetry 100 08/04/22 02:12 Oxygen Delivery Me thod 08/04/22 02:08 MDM - Chest Pain Medical Decision Making Patient presents for chest pain that is chronic in nature he is well-appearing here he is anxious he feels improved after Ativan EKG x-ray are normal he is stable for discharge. EKG Data EKG 1: I personally reviewed and interpreted this EKG as follows: EKG interpretation date: 08/04/22 EKG interpretation time: 01:28 Interpretation: nsr hr [address] or t wave abnormalities qrs 92 qtc 379 Discharge Plan Discharge Patient Disposition: Home Clinical Impression: Chest pain Condition: Stable Prescriptions: No Action [id number]-[id number]-[id number] 50-325-40 mg tablet 2 tab PO BID PRN (Reason: Migraine Headache) Hold Instructions: interaction with aspirin albuterol sulfate [ProAir HFA] 90 mcg/actuation HFA aerosol inhaler 2 puff INHALATION Q4H PRN (Reason: Shortness Of Breath) 1 Days Qty: 30 0RF hydroxyzine HCl 25 mg tablet 25 mg PO BID PRN (Reason: nausea and vomiting) insulin glargine [Lantus Solostar U-100 Insulin] 100 unit/mL (3 mL) insulin pen 5 unit SUBCUT BEDTIME Qty: 15 0RF insulin aspart U-100 [Novolog FlexPen U-100 Insulin] 100 unit/mL (3 mL) insulin pen See Rx Instructions .ROUTE .COMPLEX Qty: 15 0RF Rx Instructions: Inject, 3 times daily, after meals, based on sliding scale provided ondansetron HCl 4 mg tablet 4 mg PO Q6H PRN (Reason: nausea and vomiting) Qty: 20 0RF Nitrostat 0.4 mg Tablet, Sublingual 0.4 mg SUBLINGUAL Q5M PRN (Reason: Chest Pain) 30 Days Qty: 60 1RF Rx Instructions: do not exceed 3 doses per episode escitalopram oxalate 10 mg Tablet 10 mg PO DAILY 30 Days Qty: 30 1RF atorvastatin 40 mg tablet 40 mg PO BEDTIME 30 Days Qty: 30 1RF aspirin 81 mg Tablet,Delayed Release (Dr/Ec) 81 mg PO QAM 30 Days Qty: 30 1RF cyclobenzaprine 10 mg tablet 10 mg PO BID PRN (Reason: muscle spasm) Qty: 20 0RF acetaminophen 500 mg tablet 500 mg PO Q6H PRN (Reason: pain) Qty: 30 0RF clopidogrel [Plavix] 75 mg tablet 75 mg PO DAILY Qty: 30 0RF baclofen 10 mg tablet 10 mg PO Q8H PRN (Reason: muscle spasm) Qty: 10 0RF Reglan 10 mg tablet 10 mg PO QID PRN (Reason: Nausea) quetiapine 50 mg tablet 50 mg PO BEDTIME ranolazine 500 mg tablet extended release 12 hr 500 mg PO Q12H amlodipine 5 mg Tablet 5 mg PO DAILY Qty: 30 0RF isosorbide mononitrate 60 mg tablet extended release 24 hr 60 mg PO BID Qty: 30 0RF Discharge Orders: Discharge ED (Routine); Ordered 08/04/22 Ordered By: Jb Jaime Referrals: Cecily Miller MD [Primary Care Provider] - 1-3 days Discharge Diet: Advance as tolerated Discharge Activity: Resume usual activity Patient Instructions: Chest Pain (ED) Coding Level of Care Code ED Retirement Administrator for Marcelino Stephen
[2022-08-04] MEDS: acetaminophen 325 mg Tablet 650 MG PO (01:40)
[2022-08-04] MEDS: LORazepam 1 mg Tablet PO (01:40)
[2022-08-04] MEDS: albuterol 2.5 mg/3 mL Neb INHALATION (02:07)
[2022-08-04 02:08] VITALS: PULSE 72; RESP 16; O2SAT 99
[2022-08-04 02:12] VITALS: BP 146/91; PULSE 78; RESP 21; O2SAT 100
== END 2022-08-04 02:22 | disposition home or self-care (01) ==
PROVIDERS: Emergency Provider Emergency Medicine; PCP Internal Medicine
DX: R07.9 Chest pain, unspecified (principal); Z79.82 Long term (current) use of aspirin; Z79.02 Long term (current) use of antithrombotics/antiplatelets; Z79.4 Long term (current) use of insulin; I25.10 Atherosclerotic heart disease of native coronary artery without angina pectoris; Z86.73 Personal history of transient ischemic attack (TIA), and cerebral infarction without residual deficits; E11.9 Type 2 diabetes mellitus without complications; E78.5 Hyperlipidemia, unspecified; I10 Essential (primary) hypertension; Z87.891 Personal history of nicotine dependence
CPT/HCPCS: 71045; 93005; 94640; 99283; J7613

== ENCOUNTER 2022-08-08 21:27 | Emergency (ER) | payer MEDICAID, SELFPAY ==
[2022-08-08 21:30] VITALS: BP 109/70; PULSE 99; RESP 16; TEMP 36.8; O2SAT 98
--- NOTE | 2022-08-08 21:37 | XRR_ITS ---
PROCEDURE INFORMATION: Exam: XR Left Knee Exam date and time: 08/08/2022 9:41 PM Age: 47 years old Clinical indication: Injury or trauma; Other: Per PT - a stick hit the medial side of his left patella; Blunt trauma; Knee; Injury date: Today TECHNIQUE: Imaging protocol: Radiologic exam of the Left knee. Views: 3 views. COMPARISON: CR (LOW EXM, ) 07/13/2022 5:56 AM FINDINGS: Bones/joints: Normal. No fracture or dislocation. Soft tissues: Mild soft tissue swelling is present in the medial knee. XR/XR knee LT 3V* [id number] IMPRESSION: No fracture or dislocation.
--- NOTE | 2022-08-08 21:37 | ED_ITS ---
HPI - Extremity Problem General: Chief complaint: Extremity Injury, Lower Stated complaint: knee injury Time Seen by Provider: 08/08/22 21:34 History of Present Illness: 47-year-old male patient states today he was chopping some wood when the wood flipped up and hit him in the left knee. Patient states incident occurred about an hour prior to arrival. Patient appears nontoxic. Patient appears in mild to moderate pain. Associated symptoms: Deny chest pain or fever(s) Review of Systems General: Reports: 10 or more systems reviewed and unremarkable except in HPI and below Const: Denies: fever(s) ENMT: Denies: throat pain Card: Denies: chest pain Resp: Denies: dyspnea Musc: Reports: extremity pain Skin/Breast: Reports: new lesions PFSH ED PFSH: Medical History Angina pectoris, unstable Benign essential HTN Bipolar disorder without psychotic features Bradycardia CAD (coronary artery disease) 9stents Chest pain CVA (cerebrovascular accident) Diabetes Dyslipidemia (high LDL; low HDL) Former smoker HTN (hypertension) Vasovagal episode Surgical History History of appendectomy Family History Other No pertinent family history Social History Smoking and tobacco status: former smoker Alcohol intake: never Housing: House Physical Exam Const: COMMON NORMALS: alert HENMT: COMMON NORMALS: normocephalic and Normal external nose present HEAD & SCALP: normocephalic NOSE: Normal external nose present Eye: GENERAL EYE: appearance normal, both eyes and all related structures Neck/C-Spine: COMMON NORMALS: full ROM Resp: COMMON NORMALS: normal respiratory effort Cardio: COMMON NORMALS: regular rate and regular rhythm RATE: regular rate RHYTHM: regular rhythm GI: COMMON NORMALS: non-tender Back/Pelvis: COMMON NORMALS: thoracic and lumbar spine normal to inspection Extremity: LEFT LOWER EXTREMITY: Yes knee joint (Lateral swelling with a dry superficial abrasion) Left knee: Yes inspection, Yes palpation and Yes ROM Neuro: SENSORIUM/ORIENTATION: Yes alert Skin: TRAUMA: abrasion (Superficial abrasion that appears older than 1 hour, left knee) Course Vital Signs: Vital signs: Vital Signs Temperature 98.2 F 08/08/22 21:30 Pulse Rate 99 08/08/22 21:30 Respiratory Rate 16 08/08/22 21:30 Blood Pressure 109/70 08/08/22 21:30 Pulse Oximetry 98 08/08/22 21:30 Oxygen Delivery Me thod 08/08/22 21:30 MDM - Extremity (Nontraumatic) Medical Decision Making 47-year-old male patient comes in today with complaints of injury to the left knee. On exam he has a superficial abrasion with some bruising to the left medial knee. Patient moves extremities well. Patient appears in mild toxic. Vital signs are normal. Differential diagnosis includes fracture, sprain, contusion. X-rays noted no fracture. Believe patient probably has a contusion with a superficial abrasion. Recommended acetaminophen and ice packs for pain. Crutches and elastic bandage for support. Patient reported understanding and agreed to plan. Discharge Plan Discharge Patient Disposition: Home Clinical Impression: Contusion of knee, left Qualifiers: Encounter type: initial encounter Qualified Code(s): S80.02XA - Contusion of left knee, initial encounter Condition: Stable Prescriptions: No Action [id number]-vpwldwyprlsev-kbfi 50-325-40 mg tablet 2 tab PO BID PRN (Reason: Migraine Headache) Hold Instructions: interaction with aspirin albuterol sulfate [ProAir HFA] 90 mcg/actuation HFA aerosol inhaler 2 puff INHALATION Q4H PRN (Reason: Shortness Of Breath) 1 Days Qty: 30 0RF hydroxyzine HCl 25 mg tablet 25 mg PO BID PRN (Reason: nausea and vomiting) insulin glargine [Lantus Solostar U-100 Insulin] 100 unit/mL (3 mL) insulin pen 5 unit SUBCUT BEDTIME Qty: 15 0RF insulin aspart U-100 [Novolog FlexPen U-100 Insulin] 100 unit/mL (3 mL) insulin pen See Rx Instructions .ROUTE .COMPLEX Qty: 15 0RF Rx Instructions: Inject, 3 times daily, after meals, based on sliding scale provided ondansetron HCl 4 mg tablet 4 mg PO Q6H PRN (Reason: nausea and vomiting) Qty: 20 0RF Nitrostat 0.4 mg Tablet, Sublingual 0.4 mg SUBLINGUAL Q5M PRN (Reason: Chest Pain) 30 Days Qty: 60 1RF Rx Instructions: do not exceed 3 doses per episode escitalopram oxalate 10 mg Tablet 10 mg PO DAILY 30 Days Qty: 30 1RF atorvastatin 40 mg tablet 40 mg PO BEDTIME 30 Days Qty: 30 1RF aspirin 81 mg Tablet,Delayed Release (Dr/Ec) 81 mg PO QAM 30 Days Qty: 30 1RF cyclobenzaprine 10 mg tablet 10 mg PO BID PRN (Reason: muscle spasm) Qty: 20 0RF acetaminophen 500 mg tablet 500 mg PO Q6H PRN (Reason: pain) Qty: 30 0RF clopidogrel [Plavix] 75 mg tablet 75 mg PO DAILY Qty: 30 0RF baclofen 10 mg tablet 10 mg PO Q8H PRN (Reason: muscle spasm) Qty: 10 0RF Reglan 10 mg tablet 10 mg PO QID PRN (Reason: Nausea) quetiapine 50 mg tablet 50 mg PO BEDTIME ranolazine 500 mg tablet extended release 12 hr 500 mg PO Q12H amlodipine 5 mg Tablet 5 mg PO DAILY Qty: 30 0RF isosorbide mononitrate 60 mg tablet extended release 24 hr 60 mg PO BID Qty: 30 0RF Discharge Orders: Discharge ED (Routine); Ordered 08/08/22 Ordered By: Edilberto Flannery Referrals: Cecily Miller MD [Primary Care Provider] - Discharge Diet: Usual diet Discharge Activity: Increase activity as tolerated Patient Instructions: Contusion in Adults (ED) Activity Restrictions/Additional Instructions: Increase activity as tolerated. Use ice packs and elastic bandage to the knee for the next 2 to 3 days. After that you can use ice or heat for comfort. Use acetaminophen and ibuprofen for pain. Follow-up with primary care for further instruction. Return to ED for new concerns. Coding Level of Care Code ED [employer] Press Operator for Marcelino Stephen
[2022-08-08] MEDS: acetaminophen 500 mg Tablet 1000 MG PO (21:59)
[2022-08-08 22:07] VITALS: RESP 16
== END 2022-08-08 22:07 | disposition home or self-care (01) ==
PROVIDERS: Emergency Provider Nurse Practitioner Family; PCP Internal Medicine
DX: S80.02XA Contusion of left knee, initial encounter (principal); Z79.4 Long term (current) use of insulin; Z79.82 Long term (current) use of aspirin; Z79.02 Long term (current) use of antithrombotics/antiplatelets; I25.10 Atherosclerotic heart disease of native coronary artery without angina pectoris; I10 Essential (primary) hypertension; Z86.73 Personal history of transient ischemic attack (TIA), and cerebral infarction without residual deficits; E11.9 Type 2 diabetes mellitus without complications; E78.5 Hyperlipidemia, unspecified; Z87.891 Personal history of nicotine dependence; W20.8XXA Other cause of strike by thrown, projected or falling object, initial encounter
CPT/HCPCS: 73562; 99283; E0114

== ENCOUNTER 2022-08-18 12:54 | Emergency (ER) | payer MEDICAID, SELFPAY ==
[2022-08-18 13:01] VITALS: BP 136/73; PULSE 85; RESP 20; TEMP 36.8; O2SAT 97; BMI 23.3
--- NOTE | 2022-08-18 13:09 | ECG_ITS ---
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 Measurements Intervals [place] Rate: 83 P: 61 [place]: 135 QRS: 73 QRSD: 86 T: 84 QT: 357 QTc: 421 Interpretive Statements SINUS RHYTHM MODERATE VOLTAGE CRITERIA FOR LVH, CONSIDER NORMAL VARIANT [MEETS CRITERIA IN ONE OF: R(aVL), S(V1), R(V5), R(V5/V6)+S(V1)] Compared to ECG 08/04/2022 01:28:50 No significant changes Electronically Signed On 08-19-2022 14:09:20 WINDLACE MACHINE OPERATOR by Anatoliy Jean Baptiste M.D. [id number]
[2022-08-18 13:20] VITALS: BP 133/78; PULSE 84; RESP 16; TEMP 36.8; O2SAT 97
--- NOTE | 2022-08-18 14:00 | ED_ITS ---
HPI - Chest Pain General: Chief Complaint: Chest Pain Stated Complaint: chest pain Time Seen by Provider: 08/18/22 13:19 Source: patient Mode of arrival: ambulatory History of Present Illness: 47-year-old male presents emergency room complaining of chest pain. Mr. Alonso June is frequently in the emergency room and is complained multiple times of chest pain. Last year he had approximately 4 or 5 angiographies none of which showed any significant coronary artery disease. He is not currently on a PPI. Chest pain did not have any triggering events is not I think that relieves it. MD complaint: chest pain Onset (ago): hour(s) Timing of current episode: episodic Prior episodes: Yes Associated symptoms: Deny abdominal pain, diaphoresis, dyspnea, fever(s), leg edema, nausea, palpitations, sense of impending doom, syncope or vomiting Review of Systems Const: Denies: fever(s), chills or diaphoresis ENMT: Denies: throat pain, ear or mastoid pain, nasal discharge or nasal congestion Card: Denies: palpitations or syncope Resp: Denies: dyspnea GI: Denies: abdominal pain, nausea or vomiting : Denies: flank pain, dysuria, urinary frequency or urinary urgency Skin/Breast: Denies: rash or pruritus PFSH ED PFSH: Medical History Angina pectoris, unstable Benign essential HTN Bipolar disorder without psychotic features Bradycardia CAD (coronary artery disease) 9stents Chest pain CVA (cerebrovascular accident) Diabetes Dyslipidemia (high LDL; low HDL) Former smoker HTN (hypertension) Vasovagal episode Surgical History History of appendectomy Family History Other No pertinent family history Social History Smoking and tobacco status: former smoker Alcohol intake: never Housing: House Physical Exam Const: GENERAL APPEARANCE: cooperative and comfortable ORIENTATION/CONSCIOUSNESS: Yes awake, Yes oriented to person, Yes oriented to place and Yes oriented to time HENMT: COMMON NORMALS: normocephalic, atraumatic and hearing grossly normal bilaterally HEAD & SCALP: normocephalic and atraumatic Resp: COMMON NORMALS: normal respiratory effort, No retractions, No use of accessory muscles and clear to auscultation bilaterally AUSCULTATION: clear to auscultation bilaterally Cardio: COMMON NORMALS: regular rate, regular rhythm and No murmurs present (Cardio) RATE: regular rate RHYTHM: regular rhythm GI: COMMON NORMALS: Soft to palpation and No hepatosplenomegaly present AUS CULTATION: Yes normoactive bowel sounds PALPATION: Yes Soft to palpation, No Tenderness to palpation present (GI), No Guarding due to palpation present (GI) and Yes No hepatosplenomegaly present : COMMON NORMALS: Yes no CVA tenderness BLADDER/KIDNEY EXAM: Yes no CVA tenderness Back/Pelvis: COMMON NORMALS: no CVA tenderness Extremity: COMMON NORMALS: normal to inspection, capillary refill normal, no clubbing, cyanosis or edema, no calf tenderness and no pedal edema Neuro: SENSORIUM/ORIENTATION: Yes oriented to person, Yes oriented to place and Yes oriented to time Skin: COMMON NORMALS: no rashes or lesions noted GENERAL SKIN EXAM: no rashes or lesions noted Course Vital Signs: Vital signs: Vital Signs Temperature 98.2 F 08/18/22 13:20 Pulse Rate 84 08/18/22 13:20 Respiratory Rate 16 08/18/22 13:20 Blood Pressure 133/78 08/18/22 13:20 Pulse Oximetry 97 08/18/22 13:20 Oxygen Delivery Me thod 08/18/22 13:20 MDM - Chest Pain Medical Decision Making Patient has had multiple evaluations done last year all of which were been negative. His EKG is normal presentation of symptoms is similar to what he had in the past we will discharge patient home put him on Protonix 40 p.o. daily follow-up with his primary care Medical Records I reviewed the patient's medical records. Lab Data I reviewed the patient's lab results. Discharge Plan Discharge Patient Disposition: Home Clinical Impression: Chest pain due to gastrointestinal reflux disease Condition: Stable Prescriptions: New Protonix 40 mg tablet,delayed release (DR/EC) 40 mg PO DAILY 56 Days Qty: 60 0RF No Action [id number]-vnexqnqutgzsf-kmdl 50-325-40 mg tablet 2 tab PO BID PRN (Reason: Migraine Headache) Hold Instructions: interaction with aspirin albuterol sulfate [ProAir HFA] 90 mcg/actuation HFA aerosol inhaler 2 puff INHALATION Q4H PRN (Reason: Shortness Of Breath) 1 Days Qty: 30 0RF hydroxyzine HCl 25 mg tablet 25 mg PO BID PRN (Reason: nausea and vomiting) insulin glargine [Lantus Solostar U-100 Insulin] 100 unit/mL (3 mL) insulin pen 5 unit SUBCUT BEDTIME Qty: 15 0RF insulin aspart U-100 [Novolog FlexPen U-100 Insulin] 100 unit/mL (3 mL) insulin pen See Rx Instructions .ROUTE .COMPLEX Qty: 15 0RF Rx Instructions: Inject, 3 times daily, after meals, based on sliding scale provided ondansetron HCl 4 mg tablet 4 mg PO Q6H PRN (Reason: nausea and vomiting) Qty: 20 0RF Nitrostat 0.4 mg Tablet, Sublingual 0.4 mg SUBLINGUAL Q5M PRN (Reason: Chest Pain) 30 Days Qty: 60 1RF Rx Instructions: do not exceed 3 doses per episode escitalopram oxalate 10 mg Tablet 10 mg PO DAILY 30 Days Qty: 30 1RF atorvastatin 40 mg tablet 40 mg PO BEDTIME 30 Days Qty: 30 1RF aspirin 81 mg Tablet,Delayed Release (Dr/Ec) 81 mg PO QAM 30 Days Qty: 30 1RF cyclobenzaprine 10 mg tablet 10 mg PO BID PRN (Reason: muscle spasm) Qty: 20 0RF acetaminophen 500 mg tablet 500 mg PO Q6H PRN (Reason: pain) Qty: 30 0RF clopidogrel [Plavix] 75 mg tablet 75 mg PO DAILY Qty: 30 0RF baclofen 10 mg tablet 10 mg PO Q8H PRN (Reason: muscle spasm) Qty: 10 0RF Reglan 10 mg tablet 10 mg PO QID PRN (Reason: Nausea) quetiapine 50 mg tablet 50 mg PO BEDTIME ranolazine 500 mg tablet extended release 12 hr 500 mg PO Q12H amlodipine 5 mg Tablet 5 mg PO DAILY Qty: 30 0RF isosorbide mononitrate 60 mg tablet extended release 24 hr 60 mg PO BID Qty: 30 0RF Discharge Orders: Discharge ED (Routine); Ordered 08/18/22 Ordered By: Kam Martinez Referrals: Angela,Cecily Jennifer, MD [Primary Care Provider] - Patient Instructions: Opioid Safety, Pain Management Activity Restrictions/Additional Instructions: You were seen today for complaint of chest pain. EKG was normal. You have had 4-5 angiograms in the last year that were all normal. Recommend that you continue previously prescribed medications avoid carbonated beverages spicy foods tomato-based products and other medications that aggravate reflux. Coding Level of Care Code ED Micro Computer Data Processor for Marcelino Stephen
[2022-08-18] MEDS: lidocaine 2% viscous 15 ML, aluminum-mag hydrox-simethicon 30 ML, sucralfate oral liq 1 GM PO (14:11)
== END 2022-08-18 14:12 | disposition home or self-care (01) ==
PROVIDERS: Emergency Provider Family Medicine; PCP Internal Medicine
DX: K21.9 Gastro-esophageal reflux disease without esophagitis (principal); Z79.82 Long term (current) use of aspirin; Z79.4 Long term (current) use of insulin; Z79.02 Long term (current) use of antithrombotics/antiplatelets; I10 Essential (primary) hypertension; I25.10 Atherosclerotic heart disease of native coronary artery without angina pectoris; Z86.73 Personal history of transient ischemic attack (TIA), and cerebral infarction without residual deficits; E11.9 Type 2 diabetes mellitus without complications; E78.5 Hyperlipidemia, unspecified; Z87.891 Personal history of nicotine dependence
CPT/HCPCS: 93005; 99283

== ENCOUNTER 2022-08-21 19:59 | Emergency (ER) | payer MEDICAID, SELFPAY ==
--- NOTE | 2022-08-21 20:12 | PC.NURSE ---
Patient states that he had a total meltdown. pt and his lady got into it and thats when he had his meltdown. Patient walked in front of train to try and kill himself. Patient is currently having suicide thoughts at this time.
[2022-08-21 20:15] VITALS: BP 144/88; PULSE 81; RESP 18; TEMP 36.6; O2SAT 99; BMI 20.1
--- NOTE | 2022-08-21 21:49 | ED.C_ITS ---
HPI - Psych General: Chief Complaint: Psychiatric Symptoms Stated Complaint: MHE Time Seen by Provider: 08/21/22 20:05 Source: patient History of Present Illness: 47-year-old male well-known to the ER. He presents with a complaint of suicidal ideations, stating that earlier this evening, he almost walked in front of a train. He has also been having chest discomfort. He reports that he and his old lady got into it and that he had a meltdown afterwards. He was not having chest discomfort prior to this occurrence. He states that his last admission for suicidal thoughts was last April. complaint: suicidal ideation Onset (ago): minute(s) Duration: constant History of same: Yes Relieving factors: none Exacerbating factors: other Associated psychiatric symptoms: depression and suicidal ideation Associated symptoms: Reports depression and suicidal ideation; Deny auditory hallucinations, visual hallucinations or homicidal ideation Treatments prior to arrival: none Review of Systems Const: Denies: fever(s) or chills Card: Reports: chest pain; Denies: palpitations or irregular heart rhythm Resp: Reports: dyspnea; Denies: productive cough or non-productive cough GI: Reports: nausea; Denies: abdominal pain or vomiting Neuro: Reports: headache(s) Psych: Reports: anxiety, depression and suicidal ideation; Denies: visual hallucinations, auditory hallucinations or homicidal ideation [facility] ED PFSH: Medical History Angina pectoris, unstable Benign essential HTN Bipolar disorder without psychotic features Bradycardia CAD (coronary artery disease) 9stents Chest pain CVA (cerebrovascular accident) Diabetes Dyslipidemia (high LDL; low HDL) Former smoker HTN (hypertension) Vasovagal episode Surgical History History of appendectomy Family History Other No pertinent family history Social History Smoking and tobacco status: former smoker Alcohol intake: never Housing: House Physical Exam Const: COMMON NORMALS: no acute distress GENERAL APPEARANCE: cooperative; not ill appearing and not frail appearing HENMT: COMMON NORMALS: normocephalic, atraumatic and Normal external nose present HEAD & SCALP: normocephalic and atraumatic FACE & SINUS: normal facial exam and face symmetric NOSE: Normal external nose present Eye: COMMON NORMALS: Equal, round and reactive pupils present and EOMs intact bilaterally PUPIL: Yes Equal, round and reactive pupils present Neck/C-Spine: GENERAL: Yes trachea midline Chest: CHEST: Yes Symmetrical chest wall rise Resp: COMMON NORMALS: normal respiratory effort, No retractions, No use of accessory muscles and clear to auscultation bilaterally AUSCULTATION: clear to auscultation bilaterally Cardio: COMMON NORMALS: regular rate and regular rhythm RATE: regular rate RHYTHM: regular rhythm GI: COMMON NORMALS: Normal to inspection, nondistended, normoactive bowel sounds present Extremity: COMMON NORMALS: no pedal edema Neuro: JULIANO COMA SCALE: document GCS findings Juliano coma scale eye opening: Spontaneous Ambia coma scale verbal response: Orientated Juliano coma scale motor response: Obey commands Ambia coma scale total score: 15 SENSORY EXAM: Yes extremities (intact) Psych: COMMON NORMALS: mental status grossly normal, Normal thought process present, cooperative and speech normal SPEECH: Yes normal speech MOOD & AFFECT: Yes apathetic and Yes Flat affect present THOUGHT PROCESS: Normal thought process present Skin: COMMON NORMALS: no rashes or lesions noted GENERAL SKIN EXAM: no rashes or lesions noted Course Consultations: Consultation #1: belinda Barbour Vital Signs: Vital signs: Vital Signs Temperature 98 F 08/21/22 20:15 Pulse Rate 81 08/21/22 20:15 Respiratory Rate 18 08/21/22 20:15 Blood Pressure 144/88 08/21/22 20:15 Pulse Oximetry 99 08/21/22 20:15 [facility] - Psych Medical Decision Making This patient is well-known to the ER. He has a history of malingering in the past. Because of this, psychiatry was consulted. Medically, he gives no sign of toxicity or instability. He sits perfectly comfortable, and is conversant. He is not intoxicated. he has a flat affect. He states very plainly he has complaints, without any emotion. Psychiatry was consulted. He was evaluated by telemedicine in the ER. I spoke with psychiatry following the consultation. The patient admits to a psychiatrist, that he is trying to hang out until he gets his next check so that he has enough money to get back home to [place]. This certainly brings the lethality of the patient's statements into question. We agreed the patient can be safely discharged from the emergency department with follow-up at the crisis center tomorrow if needed if the patient is still having problems with stress or figuring his social situation out. Discharge Plan Discharge Patient Disposition: Home Clinical Impression: Depression, Other social stressor Condition: Stable Prescriptions: No Action gdjlgijjje-debfgjnqirtkf-czbq 50-325-40 mg tablet 2 tab PO BID PRN (Reason: Migraine Headache) Hold Instructions: interaction with aspirin albuterol sulfate [ProAir HFA] 90 mcg/actuation HFA aerosol inhaler 2 puff INHALATION Q4H PRN (Reason: Shortness Of Breath) 1 Days Qty: 30 0RF hydroxyzine HCl 25 mg tablet 25 mg PO BID PRN (Reason: nausea and vomiting) insulin glargine [Lantus Solostar U-100 Insulin] 100 unit/mL (3 mL) insulin pen 5 unit SUBCUT BEDTIME Qty: 15 0RF insulin aspart U-100 [Novolog FlexPen U-100 Insulin] 100 unit/mL (3 mL) insulin pen See Rx Instructions .ROUTE .COMPLEX Qty: 15 0RF Rx Instructions: Inject, 3 times daily, after meals, based on sliding scale provided ondansetron HCl 4 mg tablet 4 mg PO Q6H PRN (Reason: nausea and vomiting) Qty: 20 0RF Nitrostat 0.4 mg Tablet, Sublingual 0.4 mg SUBLINGUAL Q5M PRN (Reason: Chest Pain) 30 Days Qty: 60 1RF Rx Instructions: do not exceed 3 doses per episode escitalopram oxalate 10 mg Tablet 10 mg PO DAILY 30 Days Qty: 30 1RF atorvastatin 40 mg tablet 40 mg PO BEDTIME 30 Days Qty: 30 1RF aspirin 81 mg Tablet,Delayed Release (Dr/Ec) 81 mg PO QAM 30 Days Qty: 30 1RF cyclobenzaprine 10 mg tablet 10 mg PO BID PRN (Reason: muscle spasm) Qty: 20 0RF acetaminophen 500 mg tablet 500 mg PO Q6H PRN (Reason: pain) Qty: 30 0RF clopidogrel [Plavix] 75 mg tablet 75 mg PO DAILY Qty: 30 0RF baclofen 10 mg tablet 10 mg PO Q8H PRN (Reason: muscle spasm) Qty: 10 0RF Reglan 10 mg tablet 10 mg PO QID PRN (Reason: Nausea) quetiapine 50 mg tablet 50 mg PO BEDTIME ranolazine 500 mg tablet extended release 12 hr 500 mg PO Q12H amlodipine 5 mg Tablet 5 mg PO DAILY Qty: 30 0RF isosorbide mononitrate 60 mg tablet extended release 24 hr 60 mg PO BID Qty: 30 0RF Protonix 40 mg tablet,delayed release (DR/EC) 40 mg PO DAILY 56 Days Qty: 60 0RF Discharge Orders: Discharge ED (Routine); Ordered 08/21/22 Ordered By: Pete Noguera Referrals: Cecily Miller MD [Primary Care Provider] - Patient Instructions: Chest Pain (ED), Stress (ED) Activity Restrictions/Additional Instructions: Is still feeling stressed tomorrow, you may go to the crisis center. Coding Level of Care Code ED Vegetable Farmworker for Marcelino Stephen
== END 2022-08-21 22:00 | disposition home or self-care (01) ==
PROVIDERS: Emergency Provider Emergency Medicine; PCP Internal Medicine
DX: F32.A Depression, unspecified (principal); Z60.8 Other problems related to social environment; Z79.82 Long term (current) use of aspirin; Z79.02 Long term (current) use of antithrombotics/antiplatelets; Z79.4 Long term (current) use of insulin; I10 Essential (primary) hypertension; I25.10 Atherosclerotic heart disease of native coronary artery without angina pectoris; Z86.73 Personal history of transient ischemic attack (TIA), and cerebral infarction without residual deficits; E11.9 Type 2 diabetes mellitus without complications; E78.5 Hyperlipidemia, unspecified; Z87.891 Personal history of nicotine dependence
CPT/HCPCS: 99285

== ENCOUNTER 2022-08-25 21:05 | Emergency (ER) | payer MEDICAID, SELFPAY ==
--- NOTE | 2022-08-25 21:09 | XRR_ITS ---
PROCEDURE INFORMATION: Exam: XR Chest Exam date and time: 08/25/2022 9:14 PM Age: 47 years old Clinical indication: Shortness of breath; Additional info: SOB TECHNIQUE: Imaging protocol: Radiologic exam of the chest. Views: 1 view. COMPARISON: CR (CHEST, ) 08/04/2022 1:54 AM FINDINGS: Lungs: Unremarkable. No consolidation. Pleural spaces: Unremarkable. No pleural effusion. No pneumothorax. Heart/Mediastinum: Unremarkable. No cardiomegaly. Bones/joints: Unremarkable. XR/XR chest 1V portable [id number] IMPRESSION: No acute findings.
[2022-08-25 21:10] VITALS: BP 115/75; PULSE 95; RESP 22; TEMP 36.4; O2SAT 98; BMI 26.6
--- NOTE | 2022-08-25 21:20 | ECG_ITS ---
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 Measurements Intervals [place] Rate: 87 P: 66 ID: [id number] QRS: 68 QRSD: 89 T: 87 QT: 337 QTc: 407 Interpretive Statements SINUS RHYTHM VOLTAGE CRITERIA FOR LVH [MEETS CRITERIA IN ONE OF: R(aVL), S(V1), R(V5), R(V5/V6)+S(V1)] ST DEVIATION AND MODERATE T-WAVE ABNORMALITY, CONSIDER ANTERIOR ISCHEMIA [-0.1+ mV T-WAVE IN V3/V4] Compared to ECG 08/18/2022 13:09:23 T-wave abnormality now present Possible ischemia now present Electronically Signed On 08-26-2022 15:04:48 TRACTOR OPERATOR BATTERY by Richie Macias M.D. [id number]
--- NOTE | 2022-08-25 22:24 | W.ED.CHESTPA ---
HPI - Chest Pain General: Chief Complaint: Chest Pain Stated Complaint: Pt states he can not breathe Time Seen by Provider: 08/25/22 22:16 Source: patient Mode of arrival: ambulatory Limitations: no limitations History of Present Illness: 47-year-old male who is very well-known to the ER he has chronic chest pain he states been having pain over the last 2 months that worsened tonight and fell like he is short of breath he was quite anxious when he arrived he slowed his breathing states his pain is improving he has had multiple caths over the last year he denies any fever denies any cough denies any worsening proving factors Associated symptoms: Reports dyspnea; Deny abdominal pain, fever(s), nausea or vomiting Review of Systems Const: Denies: fever(s), chills, body aches or change in appetite Eyes: Denies: blurry vision or eye discomfort ENMT: Denies: throat pain or dental pain Card: Reports: chest pain Resp: Reports: dyspnea GI: Denies: abdominal pain, nausea, vomiting or diarrhea : Denies: dysuria Musc: Denies: neck pain or back pain Skin/Breast: Denies: rash Neuro: Denies: headache(s) Psych: Denies: depression Melquiades/Lymph: Denies: easy bruising All/Imm: Denies: urticaria PFSH ED PFSH: Medical History Angina pectoris, unstable Benign essential HTN Bipolar disorder without psychotic features Bradycardia CAD (coronary artery disease) 9stents Chest pain CVA (cerebrovascular accident) Diabetes Dyslipidemia (high LDL; low HDL) Former smoker HTN (hypertension) Vasovagal episode Surgical History History of appendectomy Family History Other No pertinent family history Social History Smoking and tobacco status: former smoker Alcohol intake: never Housing: House Physical Exam Const: COMMON NORMALS: no acute distress, patient oriented x3 and healthy appearing GENERAL APPEARANCE: anxious HENMT: COMMON NORMALS: normocephalic and atraumatic HEAD & SCALP: normocephalic and atraumatic Eye: COMMON NORMALS: Equal, round and reactive pupils present and EOMs intact bilaterally PUPIL: Yes Equal, round and reactive pupils present Neck/C-Spine: COMMON NORMALS: full ROM and supple Chest: COMMONS NORMALS: normal inspection of the chest and normal palpation of entire chest wall Resp: COMMON NORMALS: normal respiratory effort, No retractions, No use of accessory muscles and clear to auscultation bilaterally AUSCULTATION: clear to auscultation bilaterally Cardio: COMMON NORMALS: regular rate, regular rhythm and No murmurs present (Cardio) RATE: regular rate RHYTHM: regular rhythm GI: COMMON NORMALS: Normal to inspection, nondistended, normoactive bowel sounds present, Soft to palpation, non-tender and no masses PALPATION: Yes Soft to palpation Extremity: COMMON NORMALS: normal to inspection and full ROM Neuro: COMMON NORMALS: patient oriented x3, moves all extremities and no focal motor deficits Psych: COMMON NORMALS: mental status grossly normal, Normal thought process present and cooperative THOUGHT PROCESS: Normal thought process present Skin: COMMON NORMALS: no rashes or lesions noted and no wounds GENERAL SKIN EXAM: no rashes or lesions noted Course Vital Signs: Vital signs: Vital Signs Temperature 97.6 F 08/25/22 21:10 Pulse Rate 80 08/25/22 22:40 Respiratory Rate 16 08/25/22 22:40 Blood Pressure 106/87 08/25/22 22:40 Pulse Oximetry 98 08/25/22 22:40 Oxygen Delivery Me thod 08/25/22 21:10 MDM - Chest Pain Medical Decision Making Patient presents for chest pain is chronic in nature he is well-appearing here likely an anxiety attack he feels much improved after slowing his breathing and Ativan EKG and x-ray showed no abnormalities he has had multiple caths over the last year he is stable for discharge he is to follow-up his PCP and return if worsening. Lab Data Radiology Impressions Chest X-Ray 08/25/22 21:09 IMPRESSION: No acute findings. Discharge Plan Discharge Patient Disposition: Home Clinical Impression: Chest pain Condition: Stable Prescriptions: No Action bpzwwzywwy-rmunpqmqeeeip-edgf 50-325-40 mg tablet 2 tab PO BID PRN (Reason: Migraine Headache) Hold Instructions: interaction with aspirin albuterol sulfate [ProAir HFA] 90 mcg/actuation HFA aerosol inhaler 2 puff INHALATION Q4H PRN (Reason: Shortness Of Breath) 1 Days Qty: 30 0RF hydroxyzine HCl 25 mg tablet 25 mg PO BID PRN (Reason: nausea and vomiting) insulin glargine [Lantus Solostar U-100 Insulin] 100 unit/mL (3 mL) insulin pen 5 unit SUBCUT BEDTIME Qty: 15 0RF insulin aspart U-100 [Novolog FlexPen U-100 Insulin] 100 unit/mL (3 mL) insulin pen See Rx Instructions .ROUTE .COMPLEX Qty: 15 0RF Rx Instructions: Inject, 3 times daily, after meals, based on sliding scale provided ondansetron HCl 4 mg tablet 4 mg PO Q6H PRN (Reason: nausea and vomiting) Qty: 20 0RF Nitrostat 0.4 mg Tablet, Sublingual 0.4 mg SUBLINGUAL Q5M PRN (Reason: Chest Pain) 30 Days Qty: 60 1RF Rx Instructions: do not exceed 3 doses per episode escitalopram oxalate 10 mg Tablet 10 mg PO DAILY 30 Days Qty: 30 1RF atorvastatin 40 mg tablet 40 mg PO BEDTIME 30 Days Qty: 30 1RF aspirin 81 mg Tablet,Delayed Release (Dr/Ec) 81 mg PO QAM 30 Days Qty: 30 1RF cyclobenzaprine 10 mg tablet 10 mg PO BID PRN (Reason: muscle spasm) Qty: 20 0RF acetaminophen 500 mg tablet 500 mg PO Q6H PRN (Reason: pain) Qty: 30 0RF clopidogrel [Plavix] 75 mg tablet 75 mg PO DAILY Qty: 30 0RF baclofen 10 mg tablet 10 mg PO Q8H PRN (Reason: muscle spasm) Qty: 10 0RF Reglan 10 mg tablet 10 mg PO QID PRN (Reason: Nausea) quetiapine 50 mg tablet 50 mg PO BEDTIME ranolazine 500 mg tablet extended release 12 hr 500 mg PO Q12H amlodipine 5 mg Tablet 5 mg PO DAILY Qty: 30 0RF isosorbide mononitrate 60 mg tablet extended release 24 hr 60 mg PO BID Qty: 30 0RF Protonix 40 mg tablet,delayed release (DR/EC) 40 mg PO DAILY 56 Days Qty: 60 0RF Discharge Orders: Discharge ED (Routine); Ordered 08/25/22 Ordered By: Jb Jaime Referrals: Cecily Miller MD [Primary Care Provider] - 1-3 days Discharge Diet: Advance as tolerated Discharge Activity: Resume usual activity Patient Instructions: Chest Pain (ED) Coding Level of Care Code ED Bookkeeper Assistant for Marcelino Stephen
[2022-08-25] MEDS: LORazepam 1 mg Tablet PO (22:32)
[2022-08-25 22:40] VITALS: BP 106/87; PULSE 80; RESP 16; O2SAT 98
== END 2022-08-25 22:41 | disposition home or self-care (01) ==
PROVIDERS: Emergency Provider Emergency Medicine; PCP Internal Medicine
DX: R07.9 Chest pain, unspecified (principal); Z79.82 Long term (current) use of aspirin; Z79.02 Long term (current) use of antithrombotics/antiplatelets; Z79.4 Long term (current) use of insulin; I10 Essential (primary) hypertension; I25.10 Atherosclerotic heart disease of native coronary artery without angina pectoris; Z86.73 Personal history of transient ischemic attack (TIA), and cerebral infarction without residual deficits; E11.9 Type 2 diabetes mellitus without complications; E78.5 Hyperlipidemia, unspecified; Z87.891 Personal history of nicotine dependence
CPT/HCPCS: 71045; 93005; 99284

== ENCOUNTER 2022-08-28 08:30 | Emergency (ER) | payer MEDICAID, SELFPAY ==
[2022-08-28 08:30] VITALS: BP 116/70; PULSE 84; RESP 26; O2SAT 99; BMI 24.2
--- NOTE | 2022-08-28 08:31 | ECG_ITS ---
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 Measurements Intervals [place] Rate: 80 P: 60 ID: [id number] QRS: 67 QRSD: 102 T: 87 QT: 370 QTc: 428 Interpretive Statements SINUS RHYTHM VOLTAGE CRITERIA FOR LVH [MEETS CRITERIA IN ONE OF: R(aVL), S(V1), R(V5), R(V5/V6)+S(V1)] NONSPECIFIC T-WAVE ABNORMALITY Compared to ECG 08/25/2022 21:20:12 Possible ischemia no longer present T-wave abnormality still present Electronically Signed On 08-28-2022 15:12:29 TRANSFER AND PUMPHOUSE OPERATOR CHIEF by Richie Macias M.D. [id number]
[2022-08-28 08:35] VITALS: BP 116/70; PULSE 71; RESP 18; O2SAT 92
--- NOTE | 2022-08-28 08:44 | ED_ITS ---
HPI - Chest Pain General: Chief Complaint: Chest Pain Stated Complaint: CHEST PAIN Time Seen by Provider: 08/28/22 08:31 Source: patient Mode of arrival: EMS History of Present Illness: 47-year-old male who frequently attends to the emergency room with complaints of chest pain. In 2021 the patient had 5 angiograms all of which were negative. Presents again complaining of chest pain. No shortness of breath no exacerbating or relieving symptoms other than the fentanyl he received via EMS. He was also given aspirin. Unfortunately the patient does have coronary stents all of which were patent at all of his previous evaluations. MD complaint: chest pain Onset (ago): minute(s) Timing of current episode: episodic Prior episodes: Yes Onset: during rest and during exertion Pain location: substernal Pain radiation: left shoulder Severity: mild Quality: aching and heaviness Relieving factors: nothing Exacerbating factors: nothing Associated symptoms: Deny abdominal pain, diaphoresis, dyspnea, fever(s), leg edema, nausea, palpitations, sense of impending doom, syncope or vomiting Review of Systems Const: Denies: fever(s), chills, fatigue, malaise or diaphoresis ENMT: Denies: throat pain, ear or mastoid pain, nasal discharge or nasal congestion Card: Reports: chest pain; Denies: palpitations, irregular heart rhythm, edema, swelling of feet/ankles or syncope Resp: Denies: dyspnea GI: Denies: abdominal pain, nausea or vomiting : Denies: flank pain, dysuria, urinary frequency or urinary urgency Skin/Breast: Denies: rash or pruritus [facility] ED PFSH: Medical History Angina pectoris, unstable Benign essential HTN Bipolar disorder without psychotic features Bradycardia CAD (coronary artery disease) 9stents Chest pain CVA (cerebrovascular accident) Diabetes Dyslipidemia (high LDL; low HDL) Former smoker H/O coronary angiogram In 2021 patient had 5 angiograms. 3 at [facility] to at other facilities, copies of which have been scanned into the chart. No coronary artery disease. HTN (hypertension) Vasovagal episode Surgical History History of appendectomy Family History Other No pertinent family history Social History Smoking and tobacco status: former smoker Alcohol intake: never Housing: House Physical Exam Const: GENERAL APPEARANCE: cooperative ORIENTATION/CONSCIOUSNESS: Yes awake, Yes oriented to person, Yes oriented to place and Yes oriented to time HENMT: COMMON NORMALS: normocephalic, atraumatic and hearing grossly normal bilaterally HEAD & SCALP: normocephalic and atraumatic Resp: COMMON NORMALS: normal respiratory effort, No retractions, No use of accessory muscles and clear to auscultation bilaterally AUSCULTATION: clear to auscultation bilaterally Cardio: COMMON NORMALS: regular rate, regular rhythm and No murmurs present (Cardio) RATE: regular rate RHYTHM: regular rhythm Extremity: COMMON NORMALS: normal to inspection, capillary refill normal, no clubbing, cyanosis or edema, no calf tenderness and no pedal edema Neuro: SENSORIUM/ORIENTATION: Yes oriented to person, Yes oriented to place and Yes oriented to time Skin: COMMON NORMALS: no rashes or lesions noted GENERAL SKIN EXAM: no rashes or lesions noted Course Vital Signs: Vital signs: Vital Signs Pulse Rate 79 08/28/22 09:15 Respiratory Rate 16 08/28/22 09:15 Blood Pressure 116/70 08/28/22 09:15 Pulse Oximetry 99 08/28/22 09:15 Oxygen Delivery Me thod 08/28/22 08:35 MDM - Chest Pain Medical Decision Making EKG unchanged from previous EKGs.. Discussed symptoms with patient symptoms have not resolved will discharge home Medical Records I reviewed the patient's medical records. Discharge Plan Discharge Patient Disposition: Home Clinical Impression: Atypical chest pain Condition: Stable Prescriptions: No Action lsihxzyrkz-tuufmnufcghvl-unvu 50-325-40 mg tablet 2 tab PO BID PRN (Reason: Migraine Headache) Hold Instructions: interaction with aspirin albuterol sulfate [ProAir HFA] 90 mcg/actuation HFA aerosol inhaler 2 puff INHALATION Q4H PRN (Reason: Shortness Of Breath) 1 Days Qty: 30 0RF hydroxyzine HCl 25 mg tablet 25 mg PO BID PRN (Reason: nausea and vomiting) insulin glargine [Lantus Solostar U-100 Insulin] 100 unit/mL (3 mL) insulin pen 5 unit SUBCUT BEDTIME Qty: 15 0RF insulin aspart U-100 [Novolog FlexPen U-100 Insulin] 100 unit/mL (3 mL) insulin pen See Rx Instructions .ROUTE .COMPLEX Qty: 15 0RF Rx Instructions: Inject, 3 times daily, after meals, based on sliding scale provided ondansetron HCl 4 mg tablet 4 mg PO Q6H PRN (Reason: nausea and vomiting) Qty: 20 0RF Nitrostat 0.4 mg Tablet, Sublingual 0.4 mg SUBLINGUAL Q5M PRN (Reason: Chest Pain) 30 Days Qty: 60 1RF Rx Instructions: do not exceed 3 doses per episode escitalopram oxalate 10 mg Tablet 10 mg PO DAILY 30 Days Qty: 30 1RF atorvastatin 40 mg tablet 40 mg PO BEDTIME 30 Days Qty: 30 1RF aspirin 81 mg Tablet,Delayed Release (Dr/Ec) 81 mg PO QAM 30 Days Qty: 30 1RF cyclobenzaprine 10 mg tablet 10 mg PO BID PRN (Reason: muscle spasm) Qty: 20 0RF acetaminophen 500 mg tablet 500 mg PO Q6H PRN (Reason: pain) Qty: 30 0RF clopidogrel [Plavix] 75 mg tablet 75 mg PO DAILY Qty: 30 0RF baclofen 10 mg tablet 10 mg PO Q8H PRN (Reason: muscle spasm) Qty: 10 0RF Reglan 10 mg tablet 10 mg PO QID PRN (Reason: Nausea) quetiapine 50 mg tablet 50 mg PO BEDTIME ranolazine 500 mg tablet extended release 12 hr 500 mg PO Q12H amlodipine 5 mg Tablet 5 mg PO DAILY Qty: 30 0RF isosorbide mononitrate 60 mg tablet extended release 24 hr 60 mg PO BID Qty: 30 0RF Protonix 40 mg tablet,delayed release (DR/EC) 40 mg PO DAILY 56 Days Qty: 60 0RF diclofenac sodium 75 mg tablet,delayed release (DR/EC) 75 mg PO Q12H PRN (Reason: pain) Qty: 20 0RF Discharge Orders: Discharge ED (Routine); Ordered 08/28/22 Ordered By: Kam Martinez Referrals: Cecily Miller MD [Primary Care Provider] - Discharge Diet: Usual diet Discharge Activity: Resume usual activity Patient Instructions: Opioid Safety, Pain Management Activity Restrictions/Additional Instructions: You should continue all of your previously prescribed medications including Plavix follow-up with your primary care doctor. Your EKG today did not show any new changes from previous EKGs. Coding Level of Care Code ED Trim Technician for Marcelino Stephen
[2022-08-28 09:15] VITALS: BP 116/70; PULSE 79; RESP 16; O2SAT 99
== END 2022-08-28 09:17 | disposition home or self-care (01) ==
PROVIDERS: Emergency Provider Family Medicine; PCP Internal Medicine
DX: R07.89 Other chest pain (principal); E11.9 Type 2 diabetes mellitus without complications; I10 Essential (primary) hypertension; E78.5 Hyperlipidemia, unspecified; I25.10 Atherosclerotic heart disease of native coronary artery without angina pectoris; Z79.4 Long term (current) use of insulin; Z79.82 Long term (current) use of aspirin; Z87.891 Personal history of nicotine dependence; Z86.73 Personal history of transient ischemic attack (TIA), and cerebral infarction without residual deficits; Z95.5 Presence of coronary angioplasty implant and graft
CPT/HCPCS: 93005; 99283

== ENCOUNTER 2022-08-29 12:17 | Emergency (ER) | payer MEDICAID, SELFPAY ==
[2022-08-29 12:23] VITALS: BP 133/80; PULSE 86; RESP 16; O2SAT 100; BMI 24.2
--- NOTE | 2022-08-29 13:08 | PC.NURSE ---
DISCHARGED PRIOR TO NURSE ASSESSMENT, SEE ASSESSMENT DONE BY PROVIDER- DR. MELENDEZ
--- NOTE | 2022-08-29 14:04 | ED_ITS ---
HPI - Chest Pain General: Chief Complaint: Chest Pain Stated Complaint: CHEST PAIN Time Seen by Provider: 08/29/22 12:23 Source: patient Mode of arrival: EMS History of Present Illness: 47-year-old male well-known to the emergency room. He has been here multiple times. Last year he has had 5 heart caths (all of which were normal) and innumerable CTs of the head. He arrives today complaining of chest pain he relates it to a fall he had several weeks ago hit his left shoulder is evaluated for that he has been active since then. He has not been taking anything for it. MD complaint: chest pain Onset (ago): minute(s) Timing of current episode: episodic Prior episodes: Yes Associated symptoms: Deny abdominal pain, dyspnea, fever(s), nausea or vomiting Review of Systems Const: Denies: fever(s), chills, body aches, change in appetite, fatigue or malaise ENMT: Denies: throat pain, ear or mastoid pain, nasal discharge or nasal congestion Card: Reports: chest pain; Denies: edema, dyspnea on exertion or orthopnea Resp: Denies: dyspnea, productive cough or non-productive cough GI: Denies: abdominal pain, nausea, vomiting, hematemesis, coffee ground emesis, diarrhea, constipation, bloating, hematochezia or melena : Denies: flank pain, dysuria, urinary frequency or urinary urgency Skin/Breast: Denies: rash or pruritus [facility] ED PFSH: Medical History Angina pectoris, unstable Benign essential HTN Bipolar disorder without psychotic features Bradycardia CAD (coronary artery disease) 9stents Chest pain CVA (cerebrovascular accident) Diabetes Dyslipidemia (high LDL; low HDL) Former smoker H/O coronary angiogram In 2021 patient had 5 angiograms. 3 at [facility] to at other facilities, copies of which have been scanned into the chart. No coronary artery disease. HTN (hypertension) Vasovagal episode Surgical History History of appendectomy Family History Other No pertinent family history Social History Smoking and tobacco status: former smoker Alcohol intake: never Housing: House Physical Exam Const: GENERAL APPEARANCE: cooperative and comfortable ORIENTATION/CONSCIOUSNESS: Yes awake, Yes oriented to person, Yes oriented to place and Yes oriented to time HENMT: COMMON NORMALS: normocephalic, atraumatic and hearing grossly normal bilaterally HEAD & SCALP: normocephalic and atraumatic Resp: COMMON NORMALS: normal respiratory effort, No retractions, No use of accessory muscles and clear to auscultation bilaterally AUSCULTATION: clear to auscultation bilaterally Cardio: COMMON NORMALS: regular rate, regular rhythm and No murmurs present (Cardio) RATE: regular rate RHYTHM: regular rhythm GI: COMMON NORMALS: Soft to palpation and No hepatosplenomegaly present AUSCULTATION: Yes normoactive bowel sounds PALPATION: Yes Soft to palpation, No Tenderness to palpation present (GI), No Guarding due to palpation present (GI) and Yes No hepatosplenomegaly present Extremity: COMMON NORMALS: normal to inspection, capillary refill normal, no clubbing, cyanosis or edema, no calf tenderness and no pedal edema Neuro: SENSORIUM/ORIENTATION: Yes oriented to person, Yes oriented to place and Yes oriented to time Skin: COMMON NORMALS: no rashes or lesions noted GENERAL SKIN EXAM: no rashes or lesions noted Course Vital Signs: Vital signs: Vital Signs Pulse Rate 86 08/29/22 12:23 Respiratory Rate 16 08/29/22 12:23 Blood Pressure 133/80 08/29/22 12:23 Pulse Oximetry 100 08/29/22 12:23 Oxygen Delivery Me thod 08/29/22 12:23 MDM - Chest Pain Medical Decision Making EKG reviewed no acute ST changes noted. Multiple previous admissions and evaluations. EKG unchanged from previous discussed with patient discharged home baclofen) for shoulder pain continue previously prescribed medications Medical Records I reviewed the patient's medical records. Lab Data I reviewed the patient's lab results. Discharge Plan Discharge Patient Disposition: Home Clinical Impression: Atypical chest pain Condition: Stable Prescriptions: New diclofenac sodium 75 mg tablet,delayed release (DR/EC) 75 mg PO Q12H PRN (Reason: pain) Qty: 20 0RF No Action azqmvzlufu-xllkowmwvlquu-pgtr 50-325-40 mg tablet 2 tab PO BID PRN (Reason: Migraine Headache) Hold Instructions: interaction with aspirin albuterol sulfate [ProAir HFA] 90 mcg/actuation HFA aerosol inhaler 2 puff INHALATION Q4H PRN (Reason: Shortness Of Breath) 1 Days Qty: 30 0RF hydroxyzine HCl 25 mg tablet 25 mg PO BID PRN (Reason: nausea and vomiting) insulin glargine [Lantus Solostar U-100 Insulin] 100 unit/mL (3 mL) insulin pen 5 unit SUBCUT BEDTIME Qty: 15 0RF insulin aspart U-100 [Novolog FlexPen U-100 Insulin] 100 unit/mL (3 mL) insulin pen See Rx Instructions .ROUTE .COMPLEX Qty: 15 0RF Rx Instructions: Inject, 3 times daily, after meals, based on sliding scale provided ondansetron HCl 4 mg tablet 4 mg PO Q6H PRN (Reason: nausea and vomiting) Qty: 20 0RF Nitrostat 0.4 mg Tablet, Sublingual 0.4 mg SUBLINGUAL Q5M PRN (Reason: Chest Pain) 30 Days Qty: 60 1RF Rx Instructions: do not exceed 3 doses per episode escitalopram oxalate 10 mg Tablet 10 mg PO DAILY 30 Days Qty: 30 1RF atorvastatin 40 mg tablet 40 mg PO BEDTIME 30 Days Qty: 30 1RF aspirin 81 mg Tablet,Delayed Release (Dr/Ec) 81 mg PO QAM 30 Days Qty: 30 1RF cyclobenzaprine 10 mg tablet 10 mg PO BID PRN (Reason: muscle spasm) Qty: 20 0RF acetaminophen 500 mg tablet 500 mg PO Q6H PRN (Reason: pain) Qty: 30 0RF clopidogrel [Plavix] 75 mg tablet 75 mg PO DAILY Qty: 30 0RF baclofen 10 mg tablet 10 mg PO Q8H PRN (Reason: muscle spasm) Qty: 10 0RF Reglan 10 mg tablet 10 mg PO QID PRN (Reason: Nausea) quetiapine 50 mg tablet 50 mg PO BEDTIME ranolazine 500 mg tablet extended release 12 hr 500 mg PO Q12H amlodipine 5 mg Tablet 5 mg PO DAILY Qty: 30 0RF isosorbide mononitrate 60 mg tablet extended release 24 hr 60 mg PO BID Qty: 30 0RF Protonix 40 mg tablet,delayed release (DR/EC) 40 mg PO DAILY 56 Days Qty: 60 0RF Discharge Orders: Discharge ED (Routine); Ordered 08/29/22 Ordered By: Kam Martinez Referrals: Cecily Miller MD [Primary Care Provider] - Discharge Diet: Usual diet Discharge Activity: Increase activity as tolerated Activity Restrictions/Additional Instructions: You are seen today for chest pain. You have had multiple heart caths in the last year all of which were negative. Your EKG does not show any acute changes from previous EKG. He will be discharged home. He had mentioned to her left shoulder hurts from a fall as you have had several weeks ago you can use the diclofenac prescribed as needed for that. Coding Level of Care Code ED Parking Meter Installer for Marcelino Stephen
== END 2022-08-29 12:30 | disposition home or self-care (01) ==
LOC: ER 12:32
PROVIDERS: Emergency Provider Family Medicine; PCP Internal Medicine
DX: R07.89 Other chest pain (principal); E11.9 Type 2 diabetes mellitus without complications; I10 Essential (primary) hypertension; I25.10 Atherosclerotic heart disease of native coronary artery without angina pectoris; I25.2 Old myocardial infarction; Z79.4 Long term (current) use of insulin; Z87.891 Personal history of nicotine dependence; Z86.73 Personal history of transient ischemic attack (TIA), and cerebral infarction without residual deficits; Z95.5 Presence of coronary angioplasty implant and graft
CPT/HCPCS: 99283

== ENCOUNTER 2022-09-04 09:03 | Inpatient (IN) | payer MEDICAID, SELFPAY ==
[2022-09-04] VITALS (23 sets, daily range): BP systolic 107–158; BP diastolic 63–129; PULSE 67–107; RESP 12–25; TEMP 36.7–37.1; O2SAT 93–100; BMI 22.6
--- NOTE | 2022-09-04 09:06 | ECG_ITS ---
[facility] Test Date: 2022-09-04 Pat Name: Alonso June Department: Room: Gender: Male Account Support Analyst: : 1975 Requested By: Kam Phillips Order Number: [id number] Reading MD: GRETCHEN BORREGO Measurements Intervals [place] Rate: 104 P: 54 ND: 136 QRS: 37 QRSD: 96 T: 123 QT: 327 QTc: 430 Interpretive Statements SINUS TACHYCARDIA POSSIBLE LEFT ATRIAL ENLARGEMENT [-0.1mV P-WAVE IN V1/V2] LEFT VENTRICULAR HYPERTROPHY AND ST-T CHANGE [VOLTAGE CRITERIA PLUS ST/T ABNORMALITY] Compared to ECG 08/28/2022 08:33:25 ST (T wave) deviation now present Sinus rhythm no longer present T-wave abnormality no longer present Electronically Signed On 09-05-2022 23:38:26 CDT by GRETCHEN BORREGO [id number]
--- NOTE | 2022-09-04 09:33 | XR_ITS ---
WS: [id number] XR chest 1V portable [id number] REASON FOR EXAM: dyspnea/cough FINDINGS: The heart is at the upper limits of normal in size. Compared to the examination of 08/25/2022, there are reticular interstitial lung opacities. There are K erley B lines over the inferior lateral right lung. No other interval change compared to the previous examination. XR/XR chest 1V portable [id number] IMPRESSION: Interstitial lung opacities which are most consistent with congestive heart gee lure. Less likely pneumonitis.
--- NOTE | 2022-09-04 09:35 | ED_ITS ---
HPI - Chest Pain General: Chief Complaint: Chest Pain Stated Complaint: chest pain Time Seen by Provider: 09/04/22 09:06 Source: patient Mode of arrival: EMS History of Present Illness: 47-year-old male who presents to the emergency room with complaints of chest discomfort. Mr. June is well-known to the emergency room. In the last year he has had 5 angiograms he does have a previous stent all of his angiograms have been normal. He repeatedly comes in for a chest discomfort. He has at times had EKG changes with elevated troponins which are precipitated the multiple caths but they have all the heart caths have been normal. MD complaint: chest pain Onset (ago): hour(s) Timing of current episode: episodic Prior episodes: Yes Onset: during rest Pain location: left chest Pain radiation: left arm Quality: sharp Exacerbating factors: inspiration, palpation and movement Associated symptoms: Deny abdominal pain, diaphoresis, dyspnea, fever(s), leg edema, nausea, palpitations, sense of impending doom, syncope or vomiting Review of Systems Const: Denies: fever(s), chills, fatigue, malaise or diaphoresis ENMT: Denies: throat pain, ear or mastoid pain, nasal discharge or nasal congestion Card: Denies: palpitations or syncope Resp: Denies: dyspnea GI: Denies: abdominal pain, nausea or vomiting : Denies: flank pain, dysuria, urinary frequency or urinary urgency Musc: Denies: neck pain or back pain Skin/Breast: Denies: rash or pruritus [facility] ED PFSH: Medical History Angina pectoris, unstable Benign essential HTN Bipolar disorder without psychotic features Bradycardia CAD (coronary artery disease) 9stents Chest pain CVA (cerebrovascular accident) Diabetes Dyslipidemia (high LDL; low HDL) Former smoker H/O coronary angiogram In 2021 patient had 5 angiograms. 3 at [facility] to at other facilities, copies of which have been scanned into the chart. No coronary artery disease. HTN (hypertension) Vasovagal episode Surgical History History of appendectomy Family History Other No pertinent family history Social History Smoking and tobacco status: former smoker Alcohol intake: never Housing: House Physical Exam Const: GENERAL APPEARANCE: cooperative and comfortable ORIENTATION/CONSCIOUSNESS: Yes awake, Yes oriented to person, Yes oriented to place and Yes oriented to time HENMT: COMMON NORMALS: normocephalic, atraumatic and hearing grossly normal bilaterally HEAD & SCALP: normocephalic and atraumatic Resp: COMMON NORMALS: normal respiratory effort, No retractions, No use of accessory muscles and clear to auscultation bilaterally AUSCULTATION: clear to auscultation bilaterally Cardio: COMMON NORMALS: regular rate, regular rhythm and No murmurs present (Cardio) RATE: regular rate RHYTHM: regular rhythm GI: COMMON NORMALS: Soft to palpation and No hepatosplenomegaly present AUSCULTATION: Yes normoactive bowel sounds PALPATION: Yes Soft to palpation, No Tenderness to palpation present (GI), No Guarding due to palpation present (GI) and Yes No hepatosplenomegaly present Extremity: COMMON NORMALS: normal to inspection, capillary refill normal, no clubbing, cyanosis or edema, no calf tenderness and no pedal edema Neuro: SENSORIUM/ORIENTATION: Yes oriented to person, Yes oriented to place and Yes oriented to time Skin: COMMON NORMALS: no rashes or lesions noted GENERAL SKIN EXAM: no rashes or lesions noted Course Vital Signs: Vital signs: Vital Signs Temperature 98.0 F 09/04/22 09:21 Pulse Rate 77 09/04/22 13:30 Respiratory Rate 12 09/04/22 13:30 Blood Pressure 142/96 09/04/22 13:30 Pulse Oximetry 98 09/04/22 12:45 Oxygen Delivery Me thod 09/04/22 09:21 MDM - Chest Pain Medical Decision Making EKG showed changes. Initial EKG showed inverted T waves in V4 and 5. There are some repull changes in the V1 through 3. These changes were more consistent with patient's LVH. Second EKG showed ST depression worsening in V4 and 5 and new T wave inversion in V3. First troponin elevated troponin BNP elevated and chest x-ray shows evidence of LVH. I discussed Dr. Tobar he feels all of this is secondary to the patient's LVH and patient to be admitted for new onset CHF serial troponins done and diuresis. Patient has had 5 heart caths in approximately last 14 months all of which have been negative. He has had several episodes of troponin bump which led to the multiple heart cath eterizations. Discussed with the hospitalist will admit diurese and follow serial troponins. Patient given topical nitro and Lovenox. Medical Records I reviewed the patient's medical records. Lab Data I reviewed the patient's lab results. 09/04/22 11:10 09/04/22 11:10 Radiology Impressions Chest X-Ray 09/04/22 09:33 IMPRESSION: Interstitial lung opacities which are most consistent with congestive heart failure. Less likely pneumonitis. Laboratory Results WBC 13.9 10^3/uL (4.0-10.0) H 09/04/22 11:10 RBC 5.72 10^6/uL (4.1-5.3) H 09/04/22 11:10 Hgb 12.8 g/dL (11.7-16.6) 09/04/22 11:10 Hct 41.6 % (42.0-52.0) L 09/04/22 11:10 MCV 72.7 fl (80-94) L 09/04/22 11:10 MCH 22.4 pg (28.0-34.0) L 09/04/22 11:10 MCHC 30.8 g/dL (30.0-36.0) 09/04/22 11:10 RDW 18.6 % (12.1-15.1) H 09/04/22 11:10 Plt Count 292 10^3/cmm (130-400) 09/04/22 11:10 MPV 12.4 fL (7.4-10.4) H 09/04/22 11:10 Neut % (Auto) 71.2 % 09/04/22 11:10 Lymph % (Auto) 17.6 % 09/04/22 11:10 Borden % (Auto) 8.2 % 09/04/22 11:10 Eos % (Auto) 2.2 % 09/04/22 11:10 Baso % (Auto) 0.4 % 09/04/22 11:10 Neut # (Auto) 9.90 10^3/uL (1.8-7.7) H 09/04/22 11:10 Lymph # (Auto) 2.4 10^3/uL (0.8-4.8) 09/04/22 11:10 Borden # (Auto) 1.1 10^3/uL (0.2-0.9) H 09/04/22 11:10 Eos # (Auto) 0.3 10^3/uL (0.0-0.8) 09/04/22 11:10 Baso # (Auto) 0.1 10^3/uL (0.0-0.1) 09/04/22 11:10 Nucleated RBC % (auto) 0 % 09/04/22 11:10 Nucleated RBCs # 0.0 /100WBC 09/04/22 11:10 Sodium 142 mmol/L (136-145) 09/04/22 11:10 Potassium 4.0 mmol/L (3.5-5.1) 09/04/22 11:10 Chloride 106 mmol/L (98-107) 09/04/22 11:10 Carbon Dioxide 22 mmol/L (22-29) 09/04/22 11:10 Anion Gap 18.0 (5-19) 09/04/22 11:10 BUN 15 mg/dL (6-20) 09/04/22 11:10 Creatinine 1.0 mg/dL (0.7-1.2) 09/04/22 11:10 GFR Calculation 80.8 mL/min (90-130) L 09/04/22 11:10 Glucose 93 mg/dL (65-115) 09/04/22 11:10 Calculated Osmolality 295 mOsm/kg (285-295) 09/04/22 11:10 Calcium 8.9 mg/dL (8.5-10.5) 09/04/22 11:10 Total Bilirubin 0.5 mg/dL (0.15-1.2) 09/04/22 11:10 AST 14 U/L (0-40) 09/04/22 11:10 ALT 14 U/L (0-41) 09/04/22 11:10 Alkaline Phosphatase 75 U/L (40-130) 09/04/22 11:10 Troponin T Baseline 143 ng/L (0-15) H* 09/04/22 11:10 NT-Pro-B Natriuret Pep 2704 pg/mL (0-125) H 09/04/22 11:10 Total Protein 7.0 g/dL (6.6-8.7) 09/04/22 11:10 Albumin 4.1 g/dL (3.5-5.2) 09/04/22 11:10 Globulin 2.9 g/dL (1.3-4.6) 09/04/22 11:10 Procalcitonin 0.05 ng/mL (0-0.5) 09/04/22 11:10 Discharge Plan Discharge Patient Disposition: Admitted As Inpatient Admit Provider: Hector Rosado Clinical Impression: Congestive heart failure (CHF), Chest pain, Left ventricular hypertrophy, Elevated troponin I level Condition: Stable Coding Level of Care Code ED Crm Marketing Manager for Marcelino Stephen
--- NOTE | 2022-09-04 09:46 | PC.NURSE ---
PT IS PLACED ON CONTINUOUS SPO2, NIBP, AND CM
[2022-09-04] MEDS: FUROsemide 10 mg/mL SDV 4mL 40 MG IVP ×2 (11:21→18:45)
[2022-09-04 11:23] LABS: Basophils # 0.1 10^3/uL (0.0-0.1); Basophils % 0.4 %; Eosinophils # 0.3 10^3/uL (0.0-0.8); Eosinophils % 2.2 %; Hematocrit 41.6 % (42.0-52.0); Hemoglobin 12.8 g/dL (11.7-16.6); Lymphocytes # 2.4 10^3/uL (0.8-4.8); Lymphocytes % 17.6 %; Mean Corpuscular HGB Conc 30.8 g/dL (30.0-36.0); Mean Corpuscular Hemoglobin 22.4 pg (28.0-34.0); Mean Corpuscular Volume 72.7 fl (80-94); Mean Platelet Volume 12.4 fL (7.4-10.4); Monocytes # 1.1 10^3/uL (0.2-0.9); Monocytes % 8.2 %; Neutrophils % 71.2 %; Nucleated Red Blood Cells % 0 %; Platelet Count 292 10^3/cmm (130-400); Red Blood Count 5.72 10^6/uL (4.1-5.3); Red Cell Distribution Width 18.6 % (12.1-15.1); White Blood Count 13.9 10^3/uL (4.0-10.0)
[2022-09-04 11:46] LABS: NT Pro B Type Natriuretic Pept 2704 pg/mL (0-125); Procalcitonin 0.05 ng/mL (0-0.5)
[2022-09-04 11:57] LABS: Alanine Aminotransferase 14 U/L (0-41); Albumin Level 4.1 g/dL (3.5-5.2); Alkaline Phosphatase 75 U/L (40-130); Aspartate Amino Transferase 14 U/L (0-40); Blood Urea Nitrogen 15 mg/dL (6-20); Calcium 8.9 mg/dL (8.5-10.5); Carbon Dioxide 22 mmol/L (22-29); Chloride 106 mmol/L (98-107); Globulin 2.9 g/dL (1.3-4.6); Glomerular Filtration Rate 80.8 mL/min (90-130); Glucose 93 mg/dL (65-115); Osmolality Calculated 295 mOsm/kg (285-295); Sodium 142 mmol/L (136-145); Total Bilirubin 0.5 mg/dL (0.15-1.2)
--- NOTE | 2022-09-04 11:57 | ECG_ITS ---
[facility] Test Date: 2022-09-04 Pat Name: Alonso June Department: Room: Gender: Male Mouthpiece Maker: : 1975 Requested By: Kam Phillips Order Number: [id number] Reading MD: GRETCHEN OBRREGO Measurements Intervals [place] Rate: 79 P: 55 AR: 144 QRS: 56 QRSD: 94 T: 130 QT: 384 QTc: 442 Interpretive Statements SINUS RHYTHM POSSIBLE LEFT ATRIAL ENLARGEMENT [-0.1mV P-WAVE IN V1/V2] LEFT VENTRICULAR HYPERTROPHY AND ST-T CHANGE [VOLTAGE CRITERIA PLUS ST/T ABNORMALITY] Compared to ECG 09/04/2022 09:20:44 Sinus tachycardia no longer present ST (T wave) deviation still present Electronically Signed On 09-05-2022 23:37:50 CDT by GRETCHEN BORREGO [id number]
[2022-09-04 12:02] LABS: Slide Review Slide Review Perform
[2022-09-04] MEDS: nitroglycerin 1 gm/inch oint Pkt 0.5 INCH TOPICAL (12:13)
[2022-09-04] MEDS: enoxaparin 100 mg/mL Syringe 90 MG SUBCUT (12:13)
[2022-09-04 12:15] LABS: Troponin(5th) Baseline 143 ng/L (0-15)
--- NOTE | 2022-09-04 12:41 | PC.PHAR ---
PT STATES HE HAS BEEN TAKING HIS MEDICATIONS - MEDS HAVE NOT BEEN FILLED SINCE 2021
--- NOTE | 2022-09-04 13:49 | ECG_ITS ---
[facility] Test Date: 2022-09-04 Pat Name: Alonso June Department: Room: 102 Gender: Male Crocheter Hand: : 1975 Requested By: Kam Phillips Order Number: [id number] Reading MD: GRETCHEN BORREGO Measurements Intervals [place] Rate: 80 P: 53 WA: 150 QRS: 59 QRSD: 100 T: 96 QT: 388 QTc: 450 Interpretive Statements SINUS RHYTHM LEFT VENTRICULAR HYPERTROPHY AND ST-T CHANGE [VOLTAGE CRITERIA PLUS ST/T ABNORMALITY] Compared to ECG 09/04/2022 11:57:24 No significant changes Electronically Signed On 09-05-2022 23:43:24 CDT by GRETCHEN BORREGO [id number]
--- NOTE | 2022-09-04 14:14 | USCV_ITS ---
Alonso June Age: 47 Gender: M : 1975 Exam Date: 09/04/2022 14:35 Ordering Phys: Kam Martinez DO Technologist: CECELIA Exam Location: [facility] Indication: new onset afib BP: / HR: 76 Rhythm: Sinus Technical Quality: Adequate MEASUREMENTS (Male / Female) Normal Values 2D ECHO LV Diastolic Diameter PLAX 4.7 cm 4.2 - 5.9 / 3.9 - 5.3 cm LV Systolic Diameter PLAX 3.6 cm IVS Diastolic Thickness 0.8 cm 0.6 - 1.0 / 0.6 - 0.9 cm IVS Systolic Thickness 1.1 cm LVPW Diastolic Thickness 0.8 cm 0.6 - 1.0 / 0.6 - 0.9 cm LVPW Systolic Thickness 1.1 cm LVOT Diameter 2.0 cm LV Ejection Fraction 2D Teich 46.2 % LV Ejection Fraction MOD 2C 36.4 % LV Ejection Fraction 2C AL 36.3 % LA Diameter 3.3 cm IVC Diameter 1.7 cm M-MODE Aortic Annulus Diameter 2.9 cm LA Ao Ratio MM 1.1 MV E Point Septal Separation 1.2 cm DOPPLER AV Peak Velocity 107.0 cm/s LVOT Peak Velocity 70.0 cm/s AV Area Cont Eq vti 2.1 cm squared AV Area Cont Eq pk 2.0 cm squared MV Area PHT 5.0 cm squared Mitral E to A Ratio 1.2 MV E' Velocity 45.0 cm/s Mitral E to MV E' Ratio 16.0 Mitral E to LV E' Lateral Ratio 17.3 Mitral E to LV E' Septal Ratio 14.8 TR Peak Velocity 188.0 cm/s TR Peak Gradient 14.1 mmHg TV Peak E Velocity 44.0 cm/s PV Peak Velocity 106.0 cm/s FINDINGS Left Ventricle Mildly increased left ventricular cavity size. Severely decreased left ventricular systolic function. Left ventricular ejection fraction is estimated at 35 %.global left ventricular hypokinesis. Right Ventricle The right ventricle is normal in size and function. Right Atrium The right atrium is normal in size. Left Atrium The left atrium is normal in size. Mitral Valve Moderately thickened mitral valve. No mitral valve stenosis. Moderate to severe mitral valve regurgitation. Aortic Valve Moderate aortic valve calcification. No aortic valve stenosis. Mild to moderate aortic valve regurgitation. Tricuspid Valve Mild tricuspid valve regurgitation. Pulmonic Valve Structurally normal pulmonic valve without significant stenosis. There is no pulmonic regurgitation. Pericardium Normal pericardium without effusion. Aorta Normal ascending aorta dimension. IVC The inferior vena cava appears normal. CONCLUSIONS 1-Mildly increased left ventricular cavity size. Severely decreased left ventricular systolic function. Left ventricular ejection fraction is estimated at 35 %.global left ventricular hypokinesis. 2-Moderately thickened mitral valve. No mitral valve stenosis. Moderate to severe mitral valve regurgitation. 3-Moderate aortic valve calcification. No aortic valve stenosis. Mild to moderate aortic valve regurgitation. 4-Mild tricuspid valve regurgitation. 5-There is no pericardial effusion. 6-Right atrial pressure is around 15 mm of mercury. Shelley Turner MD (Electronically Signed) Final Date: 04 September 2022 23:43 S
[2022-09-04 14:26] LABS: Troponin 5 2HR Delta 6.6 ABS# (0-10)
[2022-09-04 14:27] LABS: Troponin 5 2HR 149.6 ng/L (0-15)
--- NOTE | 2022-09-04 15:14 | PM.HP ---
Providers/Chief Complaint Admitting Physician: Hector Rosado MD Primary Care Provider: Cecily Miller MD Chief Complaint: chest pain History of Present Illness Alonso June is a 47 year old male with a past medical history of stenting to left main, LAD, diagonal artery, PDA stent, recently had an angiogram in March with no obstructive CAD, patent stent, EF 60%, has had multiple hospitalizations for chest pain, multiple ER visits for chest pain, has had multiple hospitalization for CVA symptoms, has received tPA on multiple occasions, history of alcohol use history of bipolar disorder, history of insulin-dependent type 2 diabetes mellitus, history of dyslipidemia, hypertension, history of bradycardia, history of inpatient psychiatric stay, history of conversion disorder, complaining of left-sided weakness and strokelike symptoms in the past, history of vasovagal syncope who is to [facility] for chest pain. Patient tells me that he collapsed at the [facility], with severe chest pain. When asked what he means by collapse he is not able to provide a straightforward answer, denies passing out, denies loss of conscious, but he tells me that he just had severe substernal chest pain, rating down the left arm lasting about an hour, was feeling short of breath, no nausea, no vomiting, no diaphoresis, no fevers, chills, denies alcohol consumption, denies drug abuse, denies smoking, currently chest pain-free Review of Systems Const: Denies: fever(s), chills, fatigue or malaise Eyes: Denies: change in vision ENMT: Denies: nasal congestion Card: Reports: chest pain Resp: Denies: productive cough, non-productive cough or wheezing GI: Denies: abdominal pain, nausea, vomiting, hematochezia or melena : Denies: flank pain, difficulty urinating, dysuria or urinary frequency Musc: Denies: neck pain or back pain Neuro: Denies: headache(s), dizziness or vertigo Endo: Denies: polyuria or polydipsia Medications/Allergies Home Medications Medication Instructions Recorded Confirmed Last Taken Type thespbjded-vbtglpzaotqrc-opelnzrh 2 tab PO BID PRN Migraine Headache 09/03/21 09/04/22 Unknown History 50 mg-325 mg-40 mg tablet albuterol sulfate 90 mcg/actuation 2 puff inhalation Q4H PRN 10/01/21 09/04/22 03/26/22 Rx aerosol inhaler (ProAir HFA) Shortness Of Breath 1 day #30 grams atorvastatin 40 mg tablet 40 mg PO BEDTIME 30 days #30 tabs 10/11/21 09/04/22 09/03/22 Rx escitalopram oxalate 10 mg tablet 10 mg PO DAILY 30 days #30 tabs 10/11/21 09/04/22 09/04/22 Rx hydroxyzine HCl 25 mg tablet 25 mg PO BID PRN nausea and 01/02/22 09/04/22 Unknown History vomiting insulin aspart U-100 100 unit/mL See Rx Instructions .Route 01/03/22 09/04/22 Unknown Rx (3 mL) subcutaneous pen (Novolog .COMPLEX #15 mL FlexPen U-100 Insulin aspart) insulin glargine 100 unit/mL (3 5 unit (0.05 mL) SUBCUT BEDTIME 01/03/22 09/04/22 09/03/22 Rx mL) subcutaneous pen (Lantus #15 mL Solostar U-100 Insulin) ondansetron HCl 4 mg tablet 4 mg PO Q6H PRN nausea and 01/23/22 09/04/22 03/26/22 12:00 Rx vomiting #20 tabs acetaminophen 500 mg tablet 500 mg PO Q6H PRN pain #30 tabs 02/06/22 09/04/22 Unknown Rx cyclobenzaprine 10 mg tablet 10 mg PO BID PRN muscle spasm #20 02/06/22 09/04/22 Unknown Rx tabs clopidogrel 75 mg tablet (Plavix) 75 mg PO DAILY #30 tabs 02/14/22 09/04/22 09/04/22 Rx baclofen 10 mg tablet 10 mg PO Q8H PRN muscle spasm #10 03/22/22 09/04/22 Unknown Rx tabs metoclopramide HCl 10 mg tablet 10 mg PO QID PRN Nausea 03/27/22 09/04/22 03/26/22 14:00 History (Reglan) quetiapine 50 mg tablet 50 mg PO BEDTIME 03/27/22 09/04/22 09/03/22 History ranolazine 500 mg tablet,extended 500 mg PO Q12H 03/27/22 09/04/22 09/04/22 History release,12 hr amlodipine 5 mg tablet 5 mg PO DAILY #30 tabs 03/29/22 09/04/22 09/04/22 Rx nitroglycerin 0.4 mg sublingual 0.4 mg sublingual Q5M PRN Chest 04/24/22 09/04/22 Unknown Rx tablet (Nitrostat) Pain 30 days #60 tabs pantoprazole 40 mg tablet,delayed 40 mg PO DAILY 8 weeks #60 tabs 08/18/22 09/04/22 09/04/22 Rx release (Protonix) diclofenac sodium 75 mg 75 mg PO Q12H PRN pain #20 tabs 08/29/22 09/04/22 Unknown Rx tablet,delayed release isosorbide mononitrate 60 mg 60 mg PO DAILY 09/04/22 09/04/22 09/04/22 History tablet,extended release 24 hr Allergies Allergy/AdvReac Type Severity Reaction Status Date / Time butorphanol [From Stadol] Allergy ALGY-Difficulty Verified 08/29/22 12:31 Breathing diphenhydramine Allergy ADR-Itching Verified 08/29/22 12:31 [From Benadryl] Iodinated Contrast Media Allergy Unresponsiv Verified 08/29/22 12:31 e iodine Allergy Unresponsiv Verified 08/29/22 12:31 e ketorolac [From Toradol] Allergy ALGY-Difficulty Verified 08/29/22 12:31 Breathing nalbuphine [From Nubain] Allergy Unknown Verified 08/29/22 12:31 Penicillins Allergy Unknown Verified 08/29/22 12:31 promethazine [From Phenergan] Allergy Unknown Verified 08/29/22 12:31 PFSH Acute PFSH: Medical History Angina pectoris, unstable Benign essential HTN Bipolar disorder without psychotic features Bradycardia CAD (coronary artery disease) 9stents Chest pain CVA (cerebrovascular accident) Diabetes Dyslipidemia (high LDL; low HDL) Former smoker H/O coronary angiogram In 2021 patient had 5 angiograms. 3 at [facility] to at other facilities, copies of which have been scanned into the chart. No coronary artery disease. HTN (hypertension) Vasovagal episode Surgical History History of appendectomy Family History Other No pertinent family history Social History Smoking and tobacco status: former smoker Alcohol intake: never Housing: House Vitals/I&O/Wt Last Vital Signs Temp 98.6 F 09/04/22 14:00 Pulse 89 09/04/22 14:00 Resp 18 09/04/22 14:00 BP 132/79 09/04/22 14:00 Pulse Ox 99 09/04/22 14:00 O2 Del Method 09/04/22 14:17 Weight last 48 hrs Weight 63.588 kg Physical Exam Const: COMMON NORMALS: no acute distress and patient oriented x3 HENMT: COMMON NORMALS: normocephalic HEAD & SCALP: normocephalic Eye: COMMON NORMALS: Equal, round and reactive pupils present and EOMs intact bilaterally Neck/C-Spine: COMMON NORMALS: no JVD Lymph: LYMPHATIC: no lymphadenopathy noted Resp: COMMON NORMALS: normal respiratory effort, No retractions, No use of accessory muscles and clear to auscultation bilaterally AUSCULTATION: clear to auscultation bilaterally Cardio: COMMON NORMALS: no JVD, regular rate, regular rhythm, S1 normal heart sound present and S2 normal heart sound present RATE: regular rate RHYTHM: regular rhythm HEART SOUNDS: S1 normal heart sound present and S2 normal heart sound present GI: COMMON NORMALS: Normal to inspection, nondistended, normoactive bowel sounds present, Soft to palpation, non-tender, No hepatosplenomegaly present, no masses and no bruits PALPATION: Yes Soft to palpation and Yes No hepatosplenomegaly present Extremity: COMMON NORMALS: no clubbing, cyanosis or edema, no calf tenderness and no pedal edema Neuro: COMMON NORMALS: patient oriented x3, CN's II-XII intact bilaterally, moves all extremities and no focal motor deficits Psych: COMMON NORMALS: mental status grossly normal Data 09/04/22 11:10 09/04/22 11:10 A&P Assessment and plan (1) Congestive heart failure (CHF): (2) Left ventricular hypertrophy: (3) H/O coronary angiogram: (4) Vasovagal episode: (5) Bradycardia: (6) Chest pain: (7) Non-ST elevation PR (NSTEMI): (8) CHF exacerbation: Plan CHF exacerbation -Lasix 40 mg IV push every 24 hours -Fluid restrictions 1200 cc -Telemetry monitoring -Monitor creatinine, urine output, monitor potassium, monitor magnesium NSTEMI -Serial EKGs, serial troponins, telemetry monitoring -Had a coronary angiogram in March 2022 which did not show any obstructive CAD, stents patent -Highly suspicious that troponin elevation is type II NSTEMI related to CHF exacerbation, but cannot rule out underlying CAD given elevated troponins and underlying history -Monitor for chest pain -Continue Imdur -Nitro as needed -Aspirin, statin, Plavix -Hold off on beta-juliet as he has a history of vasovagal syncope and bradycardia secondary to possible beta-juliet use Chest pain -As above History of conversion disorder, with complaints of CVA with left-sided weakness -Status post tPA multiple times Type 2 diabetes mellitus, low-dose sliding scale Hypertension History of inpatient psychiatric admission, for bipolar disorder, history of conversion disorder Attestations Medical Necessity Statement*: Patient requires hospitalization, inpatient, greater than 2 midnights, for NSTEMI, chest pain, CHF exacerbation Coding Level of Care Code Acute Code for [facility] Fwd Diagnoses Congestive heart failure (CHF) I50.9 Left ventricular hypertrophy I51.7 H/O coronary angiogram Z98.890 Vasovagal episode R55 Bradycardia R00.1 Chest pain R07.9 Non-ST elevation PR (NSTEMI) I21.4 CHF exacerbation I50.9
[2022-09-04] MEDS: ranolazine (12HR) 500 mg Tablet PO (15:38)
[2022-09-04] MEDS: aspirin 81 mg EC Tablet PO (15:38)
[2022-09-04] MEDS: nitroglycerin 0.4 mg sublingual Tablet SUBLINGUAL (15:39)
[2022-09-04 16:13] LABS: Alcohol Level < 10 mg/dL (0-10)
[2022-09-04 16:52] LABS: Glucose Point of Care 85 mg/dL (70-110)
--- NOTE | 2022-09-04 17:18 | ECG_ITS ---
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
--- NOTE | 2022-09-04 17:30 | PC.NURSE ---
Patient became very short of breath, labored breathing, and heart rate appeared for be sinus tach 140's. Rhythm then changed to SVT rate 160's-170-s and then became a wide complex tachycardia. Patient appeared to be unconscious, rapid response was initiated. Patient symptoms resolved with no intervention. Patient has had multiple episodes of SOB and chest pain that he rates 10/10 on pain scale. Physician is aware of this. Low dose nitro gtt has been initiated per physician. Multiple ecg's have been done and physician is aware. Nurse to continue to monitor.
--- NOTE | 2022-09-04 17:49 | ECG_ITS ---
[facility] Test Date: 2022-09-04 Pat Name: Alonso June Department: Room: 102 Gender: Male News Clerk: : 1975 Requested By: Kam Phillips Order Number: [id number] Reading MD: GRETCHEN BORREGO Measurements Intervals [place] Rate: 85 P: 66 [place]: 132 QRS: 64 QRSD: 102 T: 112 QT: 375 QTc: 447 Interpretive Statements SINUS RHYTHM POSSIBLE LEFT ATRIAL ENLARGEMENT [-0.1mV P-WAVE IN V1/V2] LEFT VENTRICULAR HYPERTROPHY AND ST-T CHANGE [VOLTAGE CRITERIA PLUS ST/T ABNORMALITY] Compared to ECG 09/04/2022 14:09:35 No significant changes Electronically Signed On 09-05-2022 23:43:08 CDT by GRETCHEN BORREGO [id number]
--- NOTE | 2022-09-04 17:53 | ECG_ITS ---
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: : 1975 Requested By: Hector Rosado Order Number: [id number] Reading MD: GRETCHEN BORREGO Measurements Intervals [place] Rate: 98 P: 64 [place]: 116 QRS: 46 QRSD: 89 T: 199 QT: 288 QTc: 369 Interpretive Statements SINUS RHYTHM WITH SHORT TN INTERVAL POSSIBLE LEFT ATRIAL ENLARGEMENT [-0.1mV P-WAVE IN V1/V2] LEFT VENTRICULAR HYPERTROPHY AND ST-T CHANGE [VOLTAGE CRITERIA PLUS ST/T ABNORMALITY] INTERPRETATION BASED ON A DEFAULT AGE OF 40 YEARS Compared to ECG 09/04/2022 17:18:57 Short TN interval now present ST (T wave) deviation still present Electronically Signed On 09-05-2022 23:37:25 CDT by GRETCHEN BORREGO [id number]
--- NOTE | 2022-09-04 17:59 | ECG_ITS ---
[facility] Test Date: 2022-09-04 Pat Name: Alonso June Department: Room: 102 Gender: Male Dopeman: : 1975 Requested By: Hector Rosado Order Number: [id number] Reading MD: GRETCHEN BORREGO Measurements Intervals [place] Rate: 88 P: 61 [place]: 146 QRS: 49 QRSD: 102 T: 107 QT: 377 QTc: 458 Interpretive Statements SINUS RHYTHM POSSIBLE LEFT ATRIAL ENLARGEMENT [-0.1mV P-WAVE IN V1/V2] POSSIBLE LEFT VENTRICULAR HYPERTROPHY [VOLTAGE CRITERIA PLUS LAE OR QRS WIDENING] POSSIBLE SEPTAL MYOCARDIAL INFARCTION , POSSIBLY ACUTE [30 ms Q WAVE IN V1/V2] ACUTE KS Compared to ECG 09/04/2022 17:18:57 Myocardial infarct finding now present ST (T wave) deviation no longer present Electronically Signed On 09-05-2022 23:42:47 CDT by GRETCHEN BORREGO [id number]
[2022-09-04] MEDS: carvedilol 3.125 mg Tablet PO (18:21)
[2022-09-04] MEDS: nitroglycerin drip 50 MG/250 ML PREMIX IV (18:22)
[2022-09-04] MEDS: LORazepam 2 mg/mL INJ 1 mL 0.5 MG IM (18:32)
[2022-09-04 19:01] LABS: Magnesium 1.9 mg/dL (1.7-2.3); Phosphorus 2.6 mg/dL (2.5-4.5)
[2022-09-04 19:11] LABS: Troponin 5 6HR 174.4 ng/L (0-15); Troponin 5 6HR Delta 31.4 ng/L (0-12)
[2022-09-04] MEDS: clopidogrel 75 mg Tablet PO (19:27)
[2022-09-04] MEDS: atorvastatin 40 mg Tablet PO (19:28)
[2022-09-04] MEDS: acetaminophen 325 mg Tablet 650 MG PO (19:28)
[2022-09-04] MEDS: quetiapine 25 mg Tablet 50 MG PO (19:28)
[2022-09-04] MEDS: morphine 4 mg/mL SDV 1 mL 1 MG IVP (21:00)
--- NOTE | 2022-09-04 21:00 | ECG_ITS ---
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: : 1975 Requested By: Hector Rosado Order Number: [id number] Reading MD: GRETCHEN BORREGO Measurements Intervals [place] Rate: 81 P: 69 [place]: 143 QRS: 73 QRSD: 90 T: 126 QT: 382 QTc: 445 Interpretive Statements SINUS RHYTHM LEFT VENTRICULAR HYPERTROPHY AND ST-T CHANGE [VOLTAGE CRITERIA PLUS ST/T ABNORMALITY] POSSIBLE SEPTAL MYOCARDIAL INFARCTION , OF INDETERMINATE AGE [30 ms Q WAVE IN V1/V2] Compared to ECG 09/04/2022 17:59:48 ST (T wave) deviation now present Myocardial infarct finding still present Electronically Signed On 09-05-2022 23:42:20 CDT by GRETCHEN BORREGO [id number]
[2022-09-04 21:23] LABS: Glucose Point of Care 95 mg/dL (70-110)
[2022-09-04] MEDS: diphenhydrAMINE 50 mg/mL SDV 1mL IVP (21:46)
--- NOTE | 2022-09-04 21:51 | XACV_ITS ---
Exam Room: [facility] Ht: 142 cm Wt: 64 kg BSA: 1.61 m2 Gender: Male : 1975 Any Known Allergies: Other Exam Priority: Routine Procedure(s): Procedure Description: Diagnostic procedure Procedure Description: Miscellaneous Procedure Description: Angio-Seal Procedure Description: Coronary Angiography Johnny BEAN; Diagnostic Cath Status: Urgent Diagnostic Findings * Left main * : * Patent previously placed proximal to mid left main stent with 40-50 % in-stent restenosis * , diffuse distal left main severe spasm was noted. Severe diffuse ostial to proximal LAD spasm was noted. Patent previously placed mid LAD and diagonal stents. Left circumflex is nondominant with diffuse luminal irregularities. RCA is moderate size and caliber dominant vessel with luminal irregularities without significant stenosis.. * 200 mcg * IC nitro * was given * which relieved the spasm immediately. Recommendations * Patent * previously placed proximal to mid * left main stent * with * 40 to 50% in-stent restenosis * . * Diffuse severe * spasm of * distal left main * and * ostial to proximal LAD was noted * relieved with nitroglycerin IC. * Since patient had multiple admissions for * prior * chest pain * and history of * V-fib arrest with * moderately depressed left ventricular ejection fraction * despite of * optimization of medications * , * consider * adding calcium channel juliet * with isosorbide mononitrate * and possible ICD * however * SUMMERS * to LAD and SVG to * circumflex * may need to * be considered as well * since recurrent severe spasm leading to ischemic VT heart failure and sudden cardiac due to arrhythmia is a possibility. Pressures Phase:Rest AO : 125 / 73 ( 93 ) @ 5:51:08 PM 101 / 76 ( 89 ) @ 5:51:08 PM 79 / 49 ( 17 ) @ 5:51:08 PM Clinical Evaluation EBL: 5mL-10mL Procedural Details Procedure Consent Obtained. Admit Source: In Patient. Pre-Procedure Time Out. Identified patient by full name and date of as verbalized by the patient/guarantor. Does the consent match the physician's order: Yes. Accurate & Complete Informed Consent: Yes. Inpatient/Outpatient History & Physical on Chart: Yes. If H&P is completed, is and addenduem needed: No; If yes, is the addendum complete: N/A. Visualize and Verify Site with Patient/Guarantor: N/A. Relevant Radiology Images available: N/A. Pre-op teaching completed and patient verbalized understanding. The risks, benefits, and alternatives of sedation and/or procedure were discussed by physician. The patient agrees to continue. Procedure started. [facility] Clinical Fraility Score: 3: Managing Well. Supervisor Molding Indications: Worsening Angina. Chest Pain Symptom Assessment: Typical Angina Symptoms. Correct patient, site and procedure confirmed by cath team. Current diagnosis: Chest Pain. PERRLA. 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 Lungs clear x 5 lobes. IV Site on Arrival: 20 gauge in the right anticubital. IV Fluids: 0.9% NaCl at KVO. 0 mL infused prior to labor delivery rn. Oxygen started at 2liters/min via nasal canula. right groin was prepped with chloroprep then draped in the usual sterile fashion. Physician notified. Baseline sample Acquired. HR: 82 BPM. Physician arrived. Physician scrubbed in. Immediate Pre-Procedure Time Out. Correct Patient: Yes; Correct Procedure: Yes; Correct Site: Yes; Correct Patient Position: Yes; Correct Supplies: Yes; Dried Flammable Prep: Yes; Blood Products Available: N/A;. Lidocaine 1% infiltrated to the right groin. Arterial access obtained with micropuncture set. A 5 vietnamese JL4 catheter in over wire. Multiple views taken of left coronary artery. Catheter out. A 5 vietnamese JR4 catheter in over wire. Multiple views taken of right coronary artery. Catheter out. Sheath upsized to a 6 Fr. 6 vietnamese XB 3 guide catheter was inserted over the wire. Multiple views taken of left coronary artery. Catheter out. A Right femoral angiogram was performed to determine safe placement of closure device. Results checked. A Angio-Seal VIP ([facility]) was successful obtaining hemostatsis at the Right Femoral artery insertion site. Lot # [id number] Exp 09/04/2022. Angioseal placed without complications. No signs or symptoms of hematoma noted. Sterile dressing applied per usual sterile fashion. Post Procedure: Pulses reassessed and unchanged. PERRLA. 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 No VTE prophylaxis required. Medication's Wasted: Other = Versed 2 mg. Medication's Wasted: Heparin = 1000 u. Post-op diagnosis: Coronary spasm. Medication's Wasted: Lidocaine 1% = 2 mL. Medication's Wasted: Other = Fentanyl 75 mcg. Total IV fluids: 49 mL. Complications: none. Estimated blood loss: 5mL-10mL. Responsiveness - Normal response to verbal stimuli; alert and oriented, PERRLA. Airway - Unaffected, no intervention required; spontaneous ventilation. Circulation: W/N/L, pulses unchanged. Nausea/Vomiting: No. Procedure completed. Patient transferred by bed to 1st floor. Vital chart was stopped. Access Site Site: Right Femoral artery Sheath Size: 5 Fr Hemostasis Method: Angio-Seal VIP ([facility]) Hemostasis Success: Successful Procedure Medications Start: 10:12 PM Stop: 10:12 PM Medication: Zofran (ondansetron) Amount: 4 mg Route: I.V. Start: 10:25 PM Stop: 10:25 PM Medication: Nitrogylcerin Amount: 200 mcg Route: I.A. Start: 10:37 PM Stop: 10:37 PM Medication: Nitrogylcerin Amount: 200 mcg Route: I.A. Start: 10:41 PM Stop: 10:41 PM Medication: Fentanyl Amount: 25 mcg Route: I.V. I, the attending physician, have reviewed and verified all procedure medications. Yes, all medications given per verbal order History/Risk Factors Hypertension: Yes Dyslipidemia: No Peripheral Arterial Disease (PAD): No Myocardial Infarction (CA): No Obesity: No Renal Disease: No Prior Interventions PCI: Yes CABG: No Valve Surgery: No Report Signatures Finalized by Shelley Turner MD on 09/05/2022 01:49 AM
--- NOTE | 2022-09-04 21:58 | PM.CONSULT ---
Providers/Reason For Consult Consulting Physician/Specialty*: Dr. Worthy Reason for Consult*: Continuous chest pain with EKG changes Requesting Physician: Dr. Worthy Attending Physician: Hector Rosado MD Primary Care Provider: Cecily Miller MD History of Present Illness History of Present Illness Alonso June is a 47 year old male past medical history significant of hypertension hyperlipidemia congestive heart failure coronary artery disease history of prior stents presented with chest pain and fifth generation troponin of 140, patient has recent prior multiple angiograms which did not show any more significant obstructive disease since he continues to have chest pain with anterolateral T wave inversion could be repolarization abnormality however cannot rule out ischemia. Since patient remains symptomatic on nitro drip therefore we will proceed with left heart cath Review of Systems General: Reports: Other (Admits to chest pain and shortness of breath.) Medications/Allergies Home Medications Medication Instructions Recorded Confirmed Last Taken Type gmdkexefor-lmxutjvlxxszv-nfzolwjt 2 tab PO BID PRN Migraine Headache 09/03/21 09/04/22 Unknown History 50 mg-325 mg-40 mg tablet albuterol sulfate 90 mcg/actuation 2 puff inhalation Q4H PRN 10/01/21 09/04/22 03/26/22 Rx aerosol inhaler (ProAir HFA) Shortness Of Breath 1 day #30 grams atorvastatin 40 mg tablet 40 mg PO BEDTIME 30 days #30 tabs 10/11/21 09/04/22 09/03/22 Rx escitalopram oxalate 10 mg tablet 10 mg PO DAILY 30 days #30 tabs 10/11/21 09/04/22 09/04/22 Rx hydroxyzine HCl 25 mg tablet 25 mg PO BID PRN nausea and 01/02/22 09/04/22 Unknown History vomiting insulin aspart U-100 100 unit/mL See Rx Instructions .Route 01/03/22 09/04/22 Unknown Rx (3 mL) subcutaneous pen (Novolog .COMPLEX #15 mL FlexPen U-100 Insulin aspart) insulin glargine 100 unit/mL (3 5 unit (0.05 mL) SUBCUT BEDTIME 01/03/22 09/04/22 09/03/22 Rx mL) subcutaneous pen (Lantus #15 mL Solostar U-100 Insulin) ondansetron HCl 4 mg tablet 4 mg PO Q6H PRN nausea and 08/11/0909/04/22 03/26/22 12:00 Rx vomiting #20 tabs acetaminophen 500 mg tablet 500 mg PO Q6H PRN pain #30 tabs 02/06/22 09/04/22 Unknown Rx cyclobenzaprine 10 mg tablet 10 mg PO BID PRN muscle spasm #20 02/06/22 09/04/22 Unknown Rx tabs clopidogrel 75 mg tablet (Plavix) 75 mg PO DAILY #30 tabs 02/14/22 09/04/22 09/04/22 Rx baclofen 10 mg tablet 10 mg PO Q8H PRN muscle spasm #10 03/22/22 09/04/22 Unknown Rx tabs metoclopramide HCl 10 mg tablet 10 mg PO QID PRN Nausea 03/27/22 09/04/22 03/26/22 14:00 History (Reglan) quetiapine 50 mg tablet 50 mg PO BEDTIME 03/27/22 09/04/22 09/03/22 History ranolazine 500 mg tablet,extended 500 mg PO Q12H 03/27/22 09/04/22 09/04/22 History release,12 hr amlodipine 5 mg tablet 5 mg PO DAILY #30 tabs 03/29/22 09/04/22 09/04/22 Rx nitroglycerin 0.4 mg sublingual 0.4 mg sublingual Q5M PRN Chest 04/24/22 09/04/22 Unknown Rx tablet (Nitrostat) Pain 30 days #60 tabs pantoprazole 40 mg tablet,delayed 40 mg PO DAILY 8 weeks #60 tabs 08/18/22 09/04/22 09/04/22 Rx release (Protonix) diclofenac sodium 75 mg 75 mg PO Q12H PRN pain #20 tabs 08/29/22 09/04/22 Unknown Rx tablet,delayed release isosorbide mononitrate 60 mg 60 mg PO DAILY 09/04/22 09/04/22 09/04/22 History tablet,extended release 24 hr Allergies Allergy/AdvReac Type Severity Reaction Status Date / Time butorphanol [From Stadol] Allergy ALGY-Difficulty Verified 08/29/22 12:31 Breathing diphenhydramine Allergy ADR-Itching Verified 08/29/22 12:31 [From Benadryl] Iodinated Contrast Media Allergy Unresponsiv Verified 08/29/22 12:31 e iodine Allergy Unresponsiv Verified 08/29/22 12:31 e ketorolac [From Toradol] Allergy ALGY-Difficulty Verified 08/29/22 12:31 Breathing nalbuphine [From Nubain] Allergy Unknown Verified 08/29/22 12:31 Penicillins Allergy Unknown Verified 08/29/22 12:31 promethazine [From Phenergan] Allergy Unknown Verified 08/29/22 12:31 Current Medications Generic Name Dose Route Start Last Admin Trade Name Freq PRN Reason Stop Dose Admin Acetaminophen 650 mg 09/04/22 14:14 09/04/22 19:28 Acetaminophen 325 Mg Tablet PO 650 mg Q6H PRN Administration Mild/Mod Pain Or Temp >/= 101 Aspirin 81 mg 09/04/22 14:55 09/04/22 15:38 Aspirin 81 Mg Ec Tablet PO 81 mg DAILY AMBROCIO Administration Atorvastatin Calcium 40 mg 09/04/22 21:00 09/04/22 19:28 Atorvastatin 40 Mg Tablet PO 40 mg BEDTIME AMBROCIO Administration Carvedilol 3.125 mg 09/04/22 18:15 09/04/22 18:21 Carvedilol 3.125 Mg Tablet PO 3.125 mg Q12H AMBROCIO Administration Clopidogrel Bisulfate 75 mg 09/04/22 18:20 09/04/22 19:27 Clopidogrel 75 Mg Tablet PO 75 mg DAILY AMBROCIO Administration Nitroglycerin/Dextrose 50 mg in 250 mls @ 0 mls/hr 09/04/22 17:45 09/04/22 18:22 Nitroglycerin Drip IV 5 mcg/min .Q0M AMBROCIO 1.5 mls/hr Administration Protocol Per Protocol Insulin Human Lispro 0 unit 09/04/22 18:00 09/04/22 19:26 Insulin Lispro 100 Unit/1 Ml SUBCUT Not Given TIDWM AMBROCIO Protocol Lorazepam 0.5 mg 09/04/22 18:01 09/04/22 18:32 Lorazepam 2 Mg/Ml Inj 1 Ml IM 0.5 mg Q8H PRN Administration Anxiety/agitation Morphine Sulfate 1 mg 09/04/22 18:17 09/04/22 21:00 Morphine 4 Mg/Ml Sdv 1 Ml IVP 1 mg Q4H PRN Administration SEVERE PAIN Quetiapine Fumarate 50 mg 09/04/22 21:00 09/04/22 19:28 Quetiapine 25 Mg Tablet PO 50 mg BEDTIME AMBROCIO Administration Ranolazine 500 mg 09/04/22 15:00 09/04/22 15:38 Ranolazine (12hr) 500 Mg Tablet PO 500 mg Q12H AMBROCIO Administration PFSH Acute PFSH: Medical History Angina pectoris, unstable Benign essential HTN Bipolar disorder without psychotic features Bradycardia CAD (coronary artery disease) 9stents Chest pain CVA (cerebrovascular accident) Diabetes Dyslipidemia (high LDL; low HDL) Former smoker H/O coronary angiogram In 2021 patient had 5 angiograms. 3 at [facility] to at other facilities, copies of which have been scanned into the chart. No coronary artery disease. HTN (hypertension) Vasovagal episode Surgical History History of appendectomy Family History Other No pertinent family history Social History Smoking and tobacco status: former smoker Alcohol intake: never Housing: House Vitals/I&O/Wt Last Vital Signs Temp 98.8 F 09/04/22 20:00 Pulse 95 09/04/22 20:00 Resp 20 H 09/04/22 21:00 BP 107/81 09/04/22 20:00 Pulse Ox 97 09/04/22 20:00 O2 Del Method 09/04/22 20:00 09/04/22 09/04/22 09/04/22 06:59 14:59 22:59 Intake Total 660 / 660 Output Total 700 / 700 Balance -40 / -40 Weight last 48 hrs Weight 140 lb 3 oz Physical Exam Narrative: Alert awake oriented x3 appeared to be in moderate chest pain No JVD sinus surgery to Heart regular S1-S2 Abdomen soft nontender wound IN[employer]ST[employer]ATOR [employer] grossly nonfocal Lower extremity without edema Data 09/04/22 11:10 09/04/22 11:10 A&P Assessment and plan (1) Non-ST elevation AL (NSTEMI): Most likely type II however since patient continues to have chest pain on nitro drip we will therefore proceed with left heart cath. Further plan will advise as per progress of the patient. Coding Level of Care Code Acute Code for [facility] Fwd Diagnoses Non-ST elevation AL (NSTEMI) I21.4
[2022-09-04 22:12] LABS: Amphetamines Screen Urine Negative (Negative); Barbiturates Screen Urine Negative (Negative); Benzodiazepines Screen Urine Negative (Negative); Cocaine Screen Urine Negative (Negative); Opiate Screen Urine Negative (Negative); PCP Screen Urine Negative (Negative); THC Screen Urine Negative (Negative)
[2022-09-04] MEDS: nicotine 21 mg Patch 1 PATCH TRANSDERMA (23:03)
[2022-09-04] MEDS: enoxaparin 60 mg/0.6 mL Syringe SUBCUT (23:10)
[2022-09-05 00:12] VITALS: BP 109/63; PULSE 84; RESP 17; TEMP 36.6; O2SAT 95
--- NOTE | 2022-09-05 00:38 | ECG_ITS ---
[facility] Test Date: 2022-09-05 Pat Name: Alonso June Department: Room: 102 Gender: Male Manager Equipment: : [id number] Requested By: Jose Mccurdy Order Number: [id number] Reading MD: GRETCHEN BORREGO Measurements Intervals [place] Rate: 101 P: 64 OR: 134 QRS: 40 QRSD: 90 T: 187 QT: 319 QTc: 414 Interpretive Statements SINUS TACHYCARDIA POSSIBLE LEFT ATRIAL ENLARGEMENT [-0.1mV P-WAVE IN V1/V2] LEFT VENTRICULAR HYPERTROPHY AND ST-T CHANGE [VOLTAGE CRITERIA PLUS ST/T ABNORMALITY] Compared to ECG 09/04/2022 23:54:52 Sinus rhythm no longer present Myocardial infarct finding no longer present ST (T wave) deviation still present Electronically Signed On 09-05-2022 23:37:11 CDT by GRETCHEN BORREGO [id number]
[2022-09-05 00:48] LABS: Glucose Point of Care 149 mg/dL (70-110)
[2022-09-05 01:08] LABS: Basophils # 0.1 10^3/uL (0.0-0.1); Basophils % 0.4 %; Eosinophils # 0.1 10^3/uL (0.0-0.8); Eosinophils % 0.4 %; Hematocrit 44.8 % (42.0-52.0); Hemoglobin 13.5 g/dL (11.7-16.6); Lymphocytes # 2.5 10^3/uL (0.8-4.8); Lymphocytes % 9.4 %; Mean Corpuscular HGB Conc 30.1 g/dL (30.0-36.0); Mean Corpuscular Volume 76.3 fl (80-94); Monocytes # 0.5 10^3/uL (0.2-0.9); Neutrophils # 23.55 10^3/uL (1.8-7.7); Nucleated Red Blood Cells % 0 %; Platelet Count 274 10^3/cmm (130-400); Red Blood Count 5.87 10^6/uL (4.1-5.3); Red Cell Distribution Width 19.3 % (12.1-15.1); White Blood Count 27.1 10^3/uL (4.0-10.0)
--- NOTE | 2022-09-05 01:15 | PC.NURSE ---
09/04/22 2030 - Pt states 6/[address] Stover rounding on unit. Pt assessed and plan of care discussed. Pt to continue on nitro gtt and to update Dr. Stover should anything change. 09/04/22 2100 - Pt states 10/10 chest pain. No significant change in vs. Dr. Stover updated. Plan to take pt to do cardiac cath. Discussed pt medications that were given as well as allergies. New orders noted. 09/04/225 - Pt to cardiac cath. 09/04/222299 - Pt back from cardiac cath. No interventions at this time. Nitro gtt resumed. Pt assessed and hooked back up to monitor. Vital signs taken. 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 09/05/22 0030 - Rapid response called on pt. Pt rhythm appeared to have started in Vtach then went to vfib. pulse was lost. Approximately 1.5 rounds of cpr delivered as well as 1 shock at 120 j. Pt had rosc. MDs at bs. New orders noted.
[2022-09-05 01:25] LABS: Anion Gap 19.1 (5-19); Blood Urea Nitrogen 20 mg/dL (6-20); Carbon Dioxide 21 mmol/L (22-29); Chloride 98 mmol/L (98-107); Chol HDL Ratio 4.69 mg/dL (1.0-5.00); Cholesterol 150 mg/dL (0-200); Glomerular Filtration Rate 65.5 mL/min (90-130); Glucose 184 mg/dL (65-115); HDL Cholesterol 32 mg/dL (60-100); LDL Cholesterol Calculated 81 mg/dL (50-129); LDL HDL Ratio 2.53 RATIO (0.00-3.22); Magnesium 2.1 mg/dL (1.7-2.3); NT Pro B Type Natriuretic Pept 2563 pg/mL (0-125); Osmolality Calculated 285 mOsm/kg (285-295); Phosphorus 2.5 mg/dL (2.5-4.5); Potassium 4.1 mmol/L (3.5-5.1); Sodium 134 mmol/L (136-145); Thyroid Stimulating Hormone 1.11 uIU/mL (0.27-4.20); Triglycerides 184 mg/dL (0-150)
[2022-09-05 01:26] LABS: Estmated Average Glucose 100; Hemoglobin A1C 5.1 % (4.0-6.0)
[2022-09-05 01:31] LABS: Add RBC Morph Yes; Mean Platelet Volume 10.2 fL (7.4-10.4); RBC Morph Comp No; Slide Review Slide Review Perform
[2022-09-05 01:32] LABS: Acanthocytes 2+; Anisocytosis 2+; Ovalocytes 1+; Poikilocytosis 3+; Spherocytes Trace; Target Cells 1+; Tear Drop Cells 1+
[2022-09-05 01:44] LABS: Troponin T (5th) Once 229 ng/L (0-15)
--- NOTE | 2022-09-05 01:49 | PM.PN ---
Subjective Subjective: Post cath patient was started on nitro drip for severe distal left main and ostial LAD, on telemetry patient was noted to be in V-fib, he was defibrillated and started on IV amiodarone Vitals/I&O/Wt Last Vital Signs Temp 97.9 F 09/05/22 00:12 Pulse 84 09/05/22 00:12 Resp 17 09/05/22 00:12 BP 109/63 09/05/22 00:12 Pulse Ox 95 09/05/22 00:12 O2 Del Method 09/05/22 00:12 09/04/22 09/04/22 09/05/22 14:59 22:59 06:59 Intake Total 783.95 / 783.95 Output Total 1700 / 1700 200 / 1900 Balance -916.05 / -916.05 -200 / -1116.05 Weight last 48 hrs Weight 140 lb 3 oz Physical Exam Narrative: Alert awake oriented x3 but lethargic No JVD sinus or atrial Heart regular S1-S2 Abdomen soft nontender nondistended Lungs decreased breath sound but no crepitation 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 Distal left main and ostial to proximal LAD severe spasm was noted relieved with nitroglycerin IC. Patient was also noted to have patent previously placed mid LAD and diagonal stents. Initial plan was to start patient on nitro drip calcium channel blockers aspirin statin and add L-arginine however in recovery patient had ventricular tachycardia V-fib arrest treated with defibrillation. He was started on amiodarone drip. This patient has multiple admission in the last 1 year with recurrent chest pain dynamic EKG changes and multiple coronary angiogram did not show significant obstructive mechanical lesion however this is the first time he has been documented with severe spasm. Since patient has moderate left main in-stent restenosis and recurrent severe spasm including distal left main to ostial LAD he is at high risk of sudden cardiac I believe he should be assessed for revascularization with SUMMERS to LAD and SVG to circumflex. IFR was not performed since it could be false positive similarly spasm was very obvious therefore IVUS was not performed. (2) Ventricular tachycardia: S/p electrical cardioversion with shock, started on amnio drip. (3) CHF exacerbation: Appear to be well compensated. Attestations Medical Necessity Statement*: Patient will be transferred to CT surgery to [facility] Coding Level of Care Code Acute Code for [facility] Fwd Diagnoses Acute non-ST elevation myocardial infarction (NSTEMI) I21.4 Ventricular tachycardia I47.20 CHF exacerbation I50.9
--- NOTE | 2022-09-05 03:03 | W.PM.EVENTAC ---
Event Note Event Note: Rapid response 00:27, no specific preceding complaints, somewhat lethargic since returning to floor, on nitro drip, then CODE BLUE 00:28 after unresponsive, with tachypnea, then on the monitor ventricular fibrillation with weak thready pulse. Defibrillation x1, chest compressions for less than 2 minutes at which point spontaneously moving, pushing away compressor, CPR stopped, ROSC, pulse in the 80s, blood pressure again. ST elevation on the monitor, discussed with cardiology - finding of severe vasospasm left main coronary and ostial LAD noted during angiography with reversibility. Moderate left main in-stent restenosis. Resumed on nitro drip with improvement in dynamic ST changes. Heart rate 84. BP 106/64. Starting amio drip. Evaluated at bedside again by cardiology, initially he was lethargic, subsequently awake. Patient discussing with cardiology regarding noted severe spasm with ischemic changes, revisit of treatment options which were initially considered, now with in-stent restenosis, severe vasospasm but now also V-fib even with nitro drip, cardiac arrest, at risk of sudden cardiac given severity of ischemic events best course of action was found to be likely with further assessment by CTS for CABG, given the current findings and his prior clinical history he is in agreement with the recommendation and plans. Discussing with transfer center at [facility] he is kindly accepted for transfer there with Dr Brown; they will let us know once they arrange for a bed. NB earlier tonight patient also noted wears nightly CPAP at home. Requested with RT. Event Notes Attestations Time Spent in Patient Care: Critical care time 25 minutes.
[2022-09-05] MEDS: ranolazine (12HR) 500 mg Tablet PO (03:32)
--- NOTE | 2022-09-05 04:02 | PC.NURSE ---
09/05/2022 0345 - Report called to Cl Ruth RN and He in [place].
[2022-09-05 04:29] VITALS: PULSE 82; RESP 20; O2SAT 99
--- NOTE | 2022-09-05 04:33 | PM.TDS ---
Transfer Summary Providers Date of Admission: 09/04/22 13:20 Date of Discharge/Transfer: 09/05/22 Attending Provider at Admission: Hector Rosado MD Attending Provider at Transfer: Hector Rosado MD Primary Care Provider: Cecily Miller MD Transfer Plans: Anticipated date of transfer: 09/05/22. Diagnoses at Discharge Discharge Diagnosis (1) Acute non-ST elevation myocardial infarction (NSTEMI): Status: Acute (2) Ventricular tachycardia: Status: Acute (3) CHF exacerbation: Status: Acute Other Information Additional DC diagnoses/information: DM2 HTN Psychiatric history, bipolar disorder, history of conversion disorder Reason for Visit Reason for Visit chest pain Brief History: Alonso June is a 47 year old male with a past medical history of stenting to left main, LAD, diagonal artery, PDA stent, recently had an angiogram in March with no obstructive CAD, patent stent, EF 60%, has had multiple hospitalizations for chest pain, multiple ER visits for chest pain, multiple cardiac catheterizations which did not show any more significant obstructive disease, has had multiple hospitalization for CVA symptoms, has received tPA on multiple occasions, history of alcohol use history of bipolar disorder, history of insulin-dependent type 2 diabetes mellitus, history of dyslipidemia, hypertension, history of bradycardia, history of inpatient psychiatric stay, history of conversion disorder, complaining of left-sided weakness and strokelike symptoms in the past, history of vasovagal syncope who is to for chest pain.? Patient stated he collapsed at the [facility], with severe chest pain.? When asked what he means by collapse he is not able to provide a straightforward answer, denies passing out, denies loss of conscious, but he tells me that he just had severe substernal chest pain, rating down the left arm lasting about an hour, was feeling short of breath, no nausea, no vomiting, no diaphoresis, no fevers, chills, denies alcohol consumption, denies drug abuse, denies smoking Chest x-ray with interstitial lung opacities most consistent with congestive heart failure. Less likely pneumonitis. At roughly 1732 rapid response was called, patient had tachycardia -On examination, rhythm looked like sinus tachycardia possible A-fib -Patient was alert oriented, complaining of shortness of breath, complaining of chest pain -EKG performed showed diffuse T wave inversions, most concerning in the anterior leads, also in the inferior leads -His chest pain subsequently resolved, repeat EKG shows persistent T wave inversions in anterior leads, but less profound -Possible coronary spasm -Spoke to cardiology, Dr. Stover, placed on nitro drip, beta-juliet, monitor for chest pain Hospital Course Hospital Course Continue chest pain, 2 inversions, was assessed by cardiology, taken for assessment by coronary angiogram. During angiogram findings of previously placed proximal to mid LAD stent with 40-50% in-stent restenosis. Noted severe vasospasm and distal left main and ostial to proximal LAD relieved with nitroglycerin IC. Additionally noted to have patent previously placed mid LAD and diagonal stents. Following catheterization CODE BLUE due to V-fib arrest received defibrillation, less than 2 minutes CPR with ROSC. Resumed on nitro drip, started on amio drip. Maintaining blood pressure 106/64. Heart rate 84. Initially on 15 L oxygen postarrest, currently weaning down to 5 L, noted rising leukocytosis of 27 possible degree of aspiration pneumonitis. Initial plan by cardiology with patient was to start patient on nitro drip calcium channel blockers aspirin statin and add L-arginine however in recovery patient had ventricular tachycardia V-fib arrest treated with defibrillation. He was started on amiodarone drip. This patient has multiple admission in the last 1 year with recurrent chest pain dynamic EKG changes and multiple coronary angiogram did not show significant obstructive mechanical lesion however this is the first time he has been documented with severe spasm. Since patient has moderate left main in-stent restenosis and recurrent severe spasm including distal left main to ostial LAD he is at high risk of sudden cardiac and recommendation by cardiology and discussion with patient and he is agreeable to be assessed for revascularization with SUMMERS to LAD and SVG to circumflex. He is kindly accepted for further assessment and care over at [facility] ICU with cardiothoracic surgery Dr. Waldrop. Covid antigen is requested. Physical Exam Narrative: Chest soreness after chest compressions. Const: COMMON NORMALS: patient oriented x3 and alert GENERAL APPEARANCE: cooperative ORIENTATION/CONSCIOUSNESS: Yes awake HENMT: COMMON NORMALS: oropharynx normal Neck/C-Spine: COMMON NORMALS: no JVD Resp: COMMON NORMALS: normal respiratory effort and clear to auscultation bilaterally AUSCULTATION: clear to auscultation bilaterally Cardio: COMMON NORMALS: no JVD, regular rhythm, S1 normal heart sound present, S2 normal heart sound present and No murmurs present (Cardio) RHYTHM: regular rhythm HEART SOUNDS: S1 normal heart sound present and S2 normal heart sound present GI: COMMON NORMALS: Normal to inspection, nondistended, normoactive bowel sounds present, Soft to palpation and non-tender PALPATION: Yes Soft to palpation Extremity: COMMON NORMALS: no joint enlargement and no pedal edema OTHER: Some tenderness in the right groin at the access site, mildly soaked dressing, but without ecchymosis, no hematoma or pulsatile mass. RLE well-perfused. 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 echo complete* [id number]] Routine Ultrasound 09/04/22 14:14 Taken Labs from last 24 hours 09/05/22 09/05/22 09/05/22 00:45 00:45 00:45 WBC RBC Hgb Hct MCV MCH MCHC RDW Plt Count MPV Neut % (Auto) Lymph % (Auto) [place] % (Auto) Eos % (Auto) Baso % (Auto) Neut # (Auto) Lymph # (Auto) [place] # (Auto) Eos # (Auto) Baso # (Auto) Nucleated RBC % (auto) Nucleated RBCs # Poikilocytosis Anisocytosis Spherocytes Target Cells Tear Drop Cells Ovalocytes Acanthocytes (Spur) Sodium 134 L Potassium 4.1 Chloride 98 Carbon Dioxide 21 L Anion Gap 19.1 H BUN 20 Creatinine 1.2 GFR Calculation 65.5 L Glucose 184 H POC Glucose Estimat Average Glucose 100 Hemoglobin A1c 5.1 Calculated Osmolality 285 Calcium 9.0 Phosphorus 2.5 Magnesium 2.1 Total Bilirubin AST ALT Alkaline Phosphatase Troponin T Gen 5 ng/L 229 H* Troponin T Baseline Troponin T 120 Minute Delta Troponin T Troponin T Hi Sens 6Hr Troponin T Hi Sens 6Hr Delta NT-Pro-B Natriuret Pep 2563 H Total Protein Albumin Globulin Triglycerides 184 H Cholesterol 150 LDL Cholesterol, Calc 81 HDL Cholesterol 32 L LDL/HDL Ratio 2.53 Cholesterol/HDL Ratio 4.69 Procalcitonin TSH 1.11 Urine Opiates Screen Ur Barbiturates Screen Ur Phencyclidine Scrn Ur Amphetamines Screen U Benzodiazepines Scrn Urine Cocaine Screen U Marijuana (THC) Screen Ethyl Alcohol 09/05/22 09/05/22 09/04/22 00:45 00:30 21:50 WBC 27.1 H RBC 5.87 H Hgb 13.5 Hct 44.8 MCV 76.3 L MCH 23.0 L MCHC 30.1 RDW 19.3 H Plt Count 274 MPV 10.2 Neut % (Auto) 87.0 Lymph % (Auto) 9.4 [place] % (Auto) 2.0 Eos % (Auto) 0.4 Baso % (Auto) 0.4 Neut # (Auto) 23.55 H Lymph # (Auto) 2.5 [place] # (Auto) 0.5 Eos # (Auto) 0.1 Baso # (Auto) 0.1 Nucleated RBC % (auto) 0 Nucleated RBCs # 0.0 Poikilocytosis 3+ H Anisocytosis 2+ H Spherocytes Trace Target Cells 1+ H Tear Drop Cells 1+ Ovalocytes 1+ H Acanthocytes (Spur) 2+ H Sodium Potassium Chloride Carbon Dioxide Anion Gap BUN Creatinine GFR Calculation Glucose POC Glucose 149 H Estimat Average Glucose Hemoglobin A1c Calculated Osmolality Calcium Phosphorus Magnesium Total Bilirubin AST ALT Alkaline Phosphatase Troponin T Gen 5 ng/L Troponin T Baseline Troponin T 120 Minute Delta Troponin T Troponin T Hi Sens 6Hr Troponin T Hi Sens 6Hr Delta NT-Pro-B Natriuret Pep Total Protein Albumin Globulin Triglycerides Cholesterol LDL Cholesterol, Calc HDL Cholesterol LDL/HDL Ratio Cholesterol/HDL Ratio Procalcitonin TSH Urine Opiates Screen Negative Ur Barbiturates Screen Negative Ur Phencyclidine Scrn Negative Ur Amphetamines Screen Negative U Benzodiazepines Scrn Negative Urine Cocaine Screen Negative U Marijuana (THC) Screen Negative Ethyl Alcohol 09/04/22 09/04/22 09/04/22 21:15 17:46 17:46 WBC RBC Hgb Hct MCV MCH MCHC RDW Plt Count MPV Neut % (Auto) Lymph % (Auto) [place] % (Auto) Eos % (Auto) Baso % (Auto) Neut # (Auto) Lymph # (Auto) [place] # (Auto) Eos # (Auto) Baso # (Auto) Nucleated RBC % (auto) Nucleated RBCs # Poikilocytosis Anisocytosis Spherocytes Target Cells Tear Drop Cells Ovalocytes Acanthocytes (Spur) Sodium Potassium Chloride Carbon Dioxide Anion Gap BUN Creatinine GFR Calculation Glucose POC Glucose 95 Estimat Average Glucose Hemoglobin A1c Calculated Osmolality Calcium Phosphorus 2.6 Magnesium 1.9 Total Bilirubin AST ALT Alkaline Phosphatase Troponin T Gen 5 ng/L Troponin T Baseline Troponin T 120 Minute Delta Troponin T Troponin T Hi Sens 6Hr 174.4 H Troponin T Hi Sens 6Hr Delta 31.4 H* NT-Pro-B Natriuret Pep Total Protein Albumin Globulin Triglycerides Cholesterol LDL Cholesterol, Calc HDL Cholesterol LDL/HDL Ratio Cholesterol/HDL Ratio Procalcitonin TSH Urine Opiates Screen Ur Barbiturates Screen Ur Phencyclidine Scrn Ur Amphetamines Screen U Benzodiazepines Scrn Urine Cocaine Screen U Marijuana (THC) Screen Ethyl Alcohol 09/04/22 09/04/22 09/04/22 16:46 13:38 11:10 WBC RBC Hgb Hct MCV MCH MCHC RDW Plt Count MPV Neut % (Auto) Lymph % (Auto) [place] % (Auto) Eos % (Auto) Baso % (Auto) Neut # (Auto) Lymph # (Auto) [place] # (Auto) Eos # (Auto) Baso # (Auto) Nucleated RBC % (auto) Nucleated RBCs # Poikilocytosis Anisocytosis Spherocytes Target Cells Tear Drop Cells Ovalocytes Acanthocytes (Spur) Sodium Potassium Chloride Carbon Dioxide Anion Gap BUN Creatinine GFR Calculation Glucose POC Glucose 85 Estimat Average Glucose Hemoglobin A1c Calculated Osmolality Calcium Phosphorus Magnesium Total Bilirubin AST ALT Alkaline Phosphatase Troponin T Gen 5 ng/L Troponin T Baseline Troponin T 120 Minute 149.6 H Delta Troponin T 6.6 Troponin T Hi Sens 6Hr Troponin T Hi Sens 6Hr Delta NT-Pro-B Natriuret Pep Total Protein Albumin Globulin Triglycerides Cholesterol LDL Cholesterol, Calc HDL Cholesterol LDL/HDL Ratio Cholesterol/HDL Ratio Procalcitonin TSH Urine Opiates Screen Ur Barbiturates Screen Ur Phencyclidine Scrn Ur Amphetamines Screen U Benzodiazepines Scrn Urine Cocaine Screen U Marijuana (THC) Screen Ethyl Alcohol < 10 09/04/22 09/04/22 09/04/22 11:10 11:10 11:10 WBC 13.9 H RBC 5.72 H Hgb 12.8 Hct 41.6 L MCV 72.7 L MCH 22.4 L MCHC 30.8 RDW 18.6 H Plt Count 292 MPV 12.4 H Neut % (Auto) 71.2 Lymph % (Auto) 17.6 [place] % (Auto) 8.2 Eos % (Auto) 2.2 Baso % (Auto) 0.4 Neut # (Auto) 9.90 H Lymph # (Auto) 2.4 [place] # (Auto) 1.1 H Eos # (Auto) 0.3 Baso # (Auto) 0.1 Nucleated RBC % (auto) 0 Nucleated RBCs # 0.0 Poikilocytosis Anisocytosis Spherocytes Target Cells Tear Drop Cells Ovalocytes Acanthocytes (Spur) Sodium 142 Potassium 4.0 Chloride 106 Carbon Dioxide 22 Anion Gap 18.0 BUN 15 Creatinine 1.0 GFR Calculation 80.8 L Glucose 93 POC Glucose Estimat Average Glucose Hemoglobin A1c Calculated Osmolality 295 Calcium 8.9 Phosphorus Magnesium Total Bilirubin 0.5 AST 14 ALT 14 Alkaline Phosphatase 75 Troponin T Gen 5 ng/L Troponin T Baseline 143 H* Troponin T 120 Minute Delta Troponin T Troponin T Hi Sens 6Hr Troponin T Hi Sens 6Hr Delta NT-Pro-B Natriuret Pep 2704 H Total Protein 7.0 Albumin 4.1 Globulin 2.9 Triglycerides Cholesterol LDL Cholesterol, Calc HDL Cholesterol LDL/HDL Ratio Cholesterol/HDL Ratio Procalcitonin 0.05 TSH Urine Opiates Screen Ur Barbiturates Screen Ur Phencyclidine Scrn Ur Amphetamines Screen U Benzodiazepines Scrn Urine Cocaine Screen U Marijuana (THC) Screen Ethyl Alcohol Completed Studies During Hospitalization Category Date Time Status XR chest 1V portable [id number] Stat Exams 09/04/22 09:33 Completed Laboratory Last Values WBC 27.1 10^3/uL (4.0-10.0) H 09/05/22 00:45 RBC 5.87 10^6/uL (4.1-5.3) H 09/05/22 00:45 Hgb 13.5 g/dL (11.7-16.6) 09/05/22 00:45 Hct 44.8 % (42.0-52.0) 09/05/22 00:45 MCV 76.3 fl (80-94) L 09/05/22 00:45 MCH 23.0 pg (28.0-34.0) L 09/05/22 00:45 MCHC 30.1 g/dL (30.0-36.0) 09/05/22 00:45 RDW 19.3 % (12.1-15.1) H 09/05/22 00:45 Plt Count 274 10^3/cmm (130-400) 09/05/22 00:45 MPV 10.2 fL (7.4-10.4) 09/05/22 00:45 Neut % (Auto) 87.0 % 09/05/22 00:45 Lymph % (Auto) 9.4 % 09/05/22 00:45 [place] % (Auto) 2.0 % 09/05/22 00:45 Eos % (Auto) 0.4 % 09/05/22 00:45 Baso % (Auto) 0.4 % 09/05/22 00:45 Neut # (Auto) 23.55 10^3/uL (1.8-7.7) H 09/05/22 00:45 Lymph # (Auto) 2.5 10^3/uL (0.8-4.8) 09/05/22 00:45 [place] # (Auto) 0.5 10^3/uL (0.2-0.9) 09/05/22 00:45 Eos # (Auto) 0.1 10^3/uL (0.0-0.8) 09/05/22 00:45 Baso # (Auto) 0.1 10^3/uL (0.0-0.1) 09/05/22 00:45 Nucleated RBC % (auto) 0 % 09/05/22 00:45 Nucleated RBCs # 0.0 /100WBC 09/05/22 00:45 Poikilocytosis 3+ H 09/05/22 00:45 Anisocytosis 2+ H 09/05/22 00:45 Spherocytes Trace 09/05/22 00:45 Target Cells 1+ H 09/05/22 00:45 Tear Drop Cells 1+ 09/05/22 00:45 Ovalocytes 1+ H 09/05/22 00:45 Acanthocytes (Spur) 2+ H 09/05/22 00:45 Sodium 134 mmol/L (136-145) L 09/05/22 00:45 Potassium 4.1 mmol/L (3.5-5.1) 09/05/22 00:45 Chloride 98 mmol/L (98-107) 09/05/22 00:45 Carbon Dioxide 21 mmol/L (22-29) L 09/05/22 00:45 Anion Gap 19.1 (5-19) H 09/05/22 00:45 BUN 20 mg/dL (6-20) 09/05/22 00:45 Creatinine 1.2 mg/dL (0.7-1.2) 09/05/22 00:45 GFR Calculation 65.5 mL/min (90-130) L 09/05/22 00:45 Glucose 184 mg/dL (65-115) H 09/05/22 00:45 POC Glucose 149 mg/dL (70-110) H 09/05/22 00:30 Estimat Average Glucose 100 09/05/22 00:45 Hemoglobin A1c 5.1 % (4.0-6.0) 09/05/22 00:45 Calculated Osmolality 285 mOsm/kg (285-295) 09/05/22 00:45 Calcium 9.0 mg/dL (8.5-10.5) 09/05/22 00:45 Phosphorus 2.5 mg/dL (2.5-4.5) 09/05/22 00:45 Magnesium 2.1 mg/dL (1.7-2.3) 09/05/22 00:45 Total Bilirubin 0.5 mg/dL (0.15-1.2) 09/04/22 11:10 AST 14 U/L (0-40) 09/04/22 11:10 ALT 14 U/L (0-41) 09/04/22 11:10 Alkaline Phosphatase 75 U/L (40-130) 09/04/22 11:10 Troponin T Gen 5 ng/L 229 ng/L (0-15) H* 09/05/22 00:45 Troponin T Baseline 143 ng/L (0-15) H* 09/04/22 11:10 Troponin T 120 Minute 149.6 ng/L (0-15) H 09/04/22 13:38 Delta Troponin T 6.6 ABS# (0-10) 09/04/22 13:38 Troponin T Hi Sens 6Hr 174.4 ng/L (0-15) H 09/04/22 17:46 Troponin T Hi Sens 6Hr Delta 31.4 ng/L (0-12) H* 09/04/22 17:46 NT-Pro-B Natriuret Pep 2563 pg/mL (0-125) H 09/05/22 00:45 Total Protein 7.0 g/dL (6.6-8.7) 09/04/22 11:10 Albumin 4.1 g/dL (3.5-5.2) 09/04/22 11:10 Globulin 2.9 g/dL (1.3-4.6) 09/04/22 11:10 Triglycerides 184 mg/dL (0-150) H 09/05/22 00:45 Cholesterol 150 mg/dL (0-200) 09/05/22 00:45 LDL Cholesterol, Calc 81 mg/dL (50-129) 09/05/22 00:45 HDL Cholesterol 32 mg/dL (60-100) L 09/05/22 00:45 LDL/HDL Ratio 2.53 RATIO (0.00-3.22) 09/05/22 00:45 Cholesterol/HDL Ratio 4.69 mg/dL (1.0-5.00) 09/05/22 00:45 Procalcitonin 0.05 ng/mL (0-0.5) 09/04/22 11:10 TSH 1.11 uIU/mL (0.27-4.20) 09/05/22 00:45 Urine Opiates Screen Negative ng/mL (Negative) 09/04/22 21:50 Ur Barbiturates Screen Negative ng/mL (Negative) 09/04/22 21:50 Ur Phencyclidine Scrn Negative ng/mL (Negative) 09/04/22 21:50 Ur Amphetamines Screen Negative ng/mL (Negative) 09/04/22 21:50 U Benzodiazepines Scrn Negative ng/mL (Negative) 09/04/22 21:50 Urine Cocaine Screen Negative ng/mL (Negative) 09/04/22 21:50 U Marijuana (THC) Screen Negative ng/mL (Negative) 09/04/22 21:50 Ethyl Alcohol < 10 mg/dL (0-10) 09/04/22 11:10 Radiology Impressions Chest X-Ray 09/04/22 09:33 IMPRESSION: Interstitial lung opacities which are most consistent with congestive heart failure. Less likely pneumonitis. Recent Clincial Data Last Vital Signs Temp 97.9 F 09/05/22 00:12 Pulse 82 09/05/22 04:29 Resp 20 H 09/05/22 04:29 BP 109/63 09/05/22 00:12 Pulse Ox 99 09/05/22 04:29 O2 Del Method 09/05/22 04:29 O2 Flow Rate 3 09/05/22 04:29 Vital Signs Temp Pulse Resp BP Pulse Ox O2 Del Method O2 Flow Rate 09/05/22 04:29 82 20 H 99 Nasal Cannula 3 09/04/22 23:00 80 09/05/22 00:12 97.9 F 84 17 109/63 95 Room Air 09/04/22 23:48 81 15 109/63 95 09/04/22 23:04 79 25 H 125/74 96 09/04/22 21:00 20 H 09/04/22 20:00 98.8 F 95 21 H 107/81 97 Room Air 09/04/22 19:05 98 12 107/81 97 Intake & Output/Weight 09/02/22 09/03/22 09/04/22 09/05/22 06:59 06:59 06:59 06:59 Intake Total 783.95 / 783.95 Output Total 1900 / 1900 Balance -1116.05 / -1116.05 Weight 63.588 kg Vitals Last Vital Signs Temp 97.9 F 09/05/22 00:12 Pulse 82 09/05/22 04:29 Resp 20 H 09/05/22 04:29 BP 109/63 09/05/22 00:12 Pulse Ox 99 09/05/22 04:29 O2 Del Method 09/05/22 04:29 O2 Flow Rate 3 09/05/22 04:29 TS Medications Medications Acetaminophen (Acetaminophen 325 Mg Tablet) 650 mg PO Q6H PRN PRN Reason: Mild/Mod Pain Or Temp >/= 101 Last Admin: 09/04/22 19:28 Dose: 650 mg Al Hydrox/Mg Hydrox/Simethicone (Pujk-Ghk-Bjdfkypvm-Parish 30 Ml Udc) 30 ml PO Q15M PRN PRN Reason: INDIGESTION Albuterol Sulfate (Albuterol 8 Gm Mdi) 2 puff INHALATION Q4H PRN PRN Reason: Shortness Of Breath Aspirin (Aspirin 81 Mg Ec Tablet) 81 mg PO DAILY [facility] Last Admin: 09/04/22 15:38 Dose: 81 mg Atorvastatin Calcium (Atorvastatin 40 Mg Tablet) 40 mg PO BEDTIME [facility] Last Admin: 09/04/22 19:28 Dose: 40 mg Atropine Sulfate (Atropine 1 Mg/Ml Sdv 1 Ml) 0.5 mg IVP PRN PRN PRN Reason: Symptomatic bradycardia Carvedilol (Carvedilol 3.125 Mg Tablet) 3.125 mg PO Q12H [facility] Last Admin: 09/04/22 18:21 Dose: 3.125 mg Clopidogrel Bisulfate (Clopidogrel 75 Mg Tablet) 75 mg PO DAILY [facility] Last Admin: 09/04/22 19:27 Dose: 75 mg Dextrose (Dextrose 50% Syringe 50 Ml) 25 ml IVP ONCE PRN; Protocol PRN Reason: hypoglycemia protocol Dextrose (Dextrose 50% Syringe 50 Ml) 50 ml IVP PRN PRN; Protocol PRN Reason: hypoglycemia protocol Enoxaparin Sodium (Enoxaparin 60 Mg/0.6 Ml Syringe) 60 mg SUBCUT Q12H [facility] Last Admin: 09/04/22 23:10 Dose: 60 mg Escitalopram Oxalate (Escitalopram 10 Mg Tablet) 10 mg PO DAILY [facility] Furosemide (Furosemide 10 Mg/Ml Sdv 4ml) 40 mg IVP Q24H [facility] Glucagon (Glucagon 1 Mg/Ml Inj 1 Ml) 1 mg IM ONCE PRN; Protocol PRN Reason: Adult Acute Hypoglycemia Prot. Dextrose (D5w) 500 mls @ 100 mls/hr IV ONCE PRN; Protocol PRN Reason: Adult Acute Hypoglycemia Prot Nitroglycerin/Dextrose (Nitroglycerin Drip) 50 mg in 250 mls @ 0 mls/hr IV .Q0M [facility]; Protocol Last Titration: 09/04/22 21:00 Dose: 10 mcg/min, 3 mls/hr Amiodarone HCl 900 mg/Dextrose/ IV Miscellaneous Supplies 518 mls @ 0 mls/hr IV .Q0M [facility]; Protocol Last Admin: 09/05/22 01:22 Dose: 1 mg/min, 34.53 mls/hr Insulin Human Lispro (Insulin Lispro 100 Unit/1 Ml) 0 unit SUBCUT TIDWM [facility]; Protocol Last Admin: 09/04/22 19:26 Dose: Not Given Lorazepam (Lorazepam 2 Mg/Ml Inj 1 Ml) 0.5 mg IM Q8H PRN PRN Reason: Anxiety/agitation Last Admin: 09/04/22 18:32 Dose: 0.5 mg Magnesium Hydroxide (Magnesium Hydroxide 30 Ml Udc) 30 ml PO DAILY PRN PRN Reason: CONSTIPATION Morphine Sulfate (Morphine 4 Mg/Ml Sdv 1 Ml) 1 mg IVP Q4H PRN PRN Reason: SEVERE PAIN Last Admin: 09/04/22 21:00 Dose: 1 mg Naloxone HCl (Naloxone 0.4 Mg/Ml Sdv) 0.1 mg IVP Q2M PRN PRN Reason: RESPIRATORY RATE < 8/MIN Nicotine (Nicotine 21 Mg Patch) 1 patch TRANSDERMA BEDTIME [facility] Last Admin: 09/04/22 23:03 Dose: 1 patch Nitroglycerin (Nitroglycerin 0.4 Mg Sublingual Tablet) 0.4 mg SUBLINGUAL Q5M PRN PRN Reason: CHEST PAIN Ondansetron HCl (Ondansetron 4 Mg Tablet) 4 mg PO Q6H PRN PRN Reason: nausea and vomiting Pantoprazole Sodium (Pantoprazole Dr 40 Mg Tablet) 40 mg PO DAILY [facility] Quetiapine Fumarate (Quetiapine 25 Mg Tablet) 50 mg PO BEDTIME [facility] Last Admin: 09/04/22 19:28 Dose: 50 mg Ranolazine (Ranolazine (12hr) 500 Mg Tablet) 500 mg PO Q12H [facility] Last Admin: 09/05/22 03:32 Dose: 500 mg Discontinued Medications Amlodipine Besylate (Amlodipine 5 Mg Tablet) 5 mg PO DAILY [facility] Clopidogrel Bisulfate (Clopidogrel 75 Mg Tablet) 75 mg PO DAILY [facility] Diphenhydramine HCl (Diphenhydramine 50 Mg/Ml Sdv 1ml) 50 mg IVP ONCE ONE Stop: 09/04/22 21:30 Last Admin: 09/04/22 21:46 Dose: 50 mg Enoxaparin Sodium (Enoxaparin 100 Mg/Ml Syringe) 90 mg SUBCUT ONCE ONE Stop: 09/04/22 12:05 Last Admin: 09/04/22 12:13 Dose: 90 mg Enoxaparin Sodium (Enoxaparin 100 Mg/Ml Syringe) 90 mg SUBCUT Q12H [facility] Fentanyl (Fentanyl 50 Mcg/Ml Inj 2ml) Confirm Administered Dose 100 mcg .ROUTE .STK-MED ONE Stop: 09/04/22 21:41 Furosemide (Furosemide 10 Mg/Ml Sdv 4ml) 40 mg IVP ONCE ONE Stop: 09/04/22 10:27 Last Admin: 09/04/22 11:21 Dose: 40 mg Furosemide (Furosemide 10 Mg/Ml Sdv 4ml) 40 mg IVP ONCE ONE Stop: 09/04/22 17:54 Last Admin: 09/04/22 18:45 Dose: 40 mg Heparin Sodium (Porcine) (Heparin 5,000 Unit/Ml Inj 1 Ml) Confirm Administered Dose 5,000 unit .ROUTE .STK-MED ONE Stop: 09/04/22 21:41 Lidocaine HCl (Xylocaine) Confirm Administered Dose 10 mls @ as directed .ROUTE .STK-MED ONE Stop: 09/04/22 21:44 Sodium Chloride (Sodium Chloride 0.9%) Confirm Administered Dose 1,000 mls @ as directed .ROUTE .STK-MED ONE Stop: 09/04/22 22:03 Amiodarone HCl 150 mg/Dextrose/ IV Miscellaneous Supplies 103 mls @ 412 mls/hr IV ONCE ONE Stop: 09/05/22 01:04 Last Admin: 09/05/22 01:08 Dose: 412 mls/hr Insulin Glargine (Insulin Glargine 100 Units/1 Ml) 5 unit SUBCUT BEDTIME [facility] Isosorbide Mononitrate (Isosorbide Mononitrate Er 60 Mg Tablet) 60 mg PO DAILY [facility] Methylprednisolone Sodium Succinate (Methylprednisolone Sod Succ 125 Mg/2 Ml Inj) 125 mg IVP ONCE ONE Stop: 09/04/22 21:30 Last Admin: 09/04/22 21:46 Dose: 125 mg Metoprolol Tartrate (Metoprolol Tartrate 1 Mg/1 Ml Sdv 5 Ml) 5 mg IVP ONCE ONE Stop: 09/04/22 17:46 Last Admin: 09/04/22 18:43 Dose: Not Given Metoprolol Tartrate (Metoprolol Tartrate 1 Mg/1 Ml Sdv 5 Ml) Confirm Administered Dose 5 mg .ROUTE .STK-MED ONE Stop: 09/04/22 17:44 Last Admin: 09/04/22 18:45 Dose: Not Given Midazolam HCl (Midazolam 1 Mg/Ml Inj 2 Ml) Confirm Administered Dose 2 mg .ROUTE .STK-MED ONE Stop: 09/04/22 21:41 Nitroglycerin (Nitroglycerin 1 Gm/Inch Oint Pkt) 0.5 inch TOPICAL ONCE ONE Stop: 09/04/22 12:08 Last Admin: 09/04/22 12:13 Dose: 0.5 inch Nitroglycerin (Nitroglycerin 0.4 Mg Sublingual Tablet) 0.4 mg SUBLINGUAL Q5M PRN PRN Reason: Chest Pain Last Admin: 09/04/22 15:39 Dose: 0.4 mg Nitroglycerin (Nitroglycerin 5 Mg/Ml Sdv 10 Ml) Confirm Administered Dose 50 mg .ROUTE .STK-MED ONE Stop: 09/04/22 21:41 Ondansetron HCl (Ondansetron 2 Mg/Ml Sdv 2 Ml) Confirm Administered Dose 4 mg .ROUTE .STK-MED ONE Stop: 09/04/22 22:11 Allergies butorphanol [From Stadol] Allergy (Verified 08/29/22 12:31) ALGY-Difficulty Breathing diphenhydramine [From Benadryl] Allergy (Verified 08/29/22 12:31) ADR-Itching Iodinated Contrast Media Allergy (Verified 08/29/22 12:31) Unresponsive iodine Allergy (Verified 08/29/22 12:31) Unresponsive ketorolac [From Toradol] Allergy (Verified 08/29/22 12:31) ALGY-Difficulty Breathing nalbuphine [From Nubain] Allergy (Verified 08/29/22 12:31) Unknown Penicillins Allergy (Verified 08/29/22 12:31) Unknown promethazine [From Phenergan] Allergy (Verified 08/29/22 12:31) Unknown Home Medications tjoublxwvb-njpmmcfaowbdo-mczwlgck 50 mg-325 mg-40 mg tablet 2 tab PO BID PRN Migraine Headache 09/03/21 [History Confirmed 09/04/22] albuterol sulfate 90 mcg/actuation aerosol inhaler (ProAir HFA) 2 puff inhalation Q4H PRN Shortness Of Breath 1 day #30 grams 10/01/21 [Rx Confirmed 09/04/22] atorvastatin 40 mg tablet 40 mg PO BEDTIME 30 days #30 tabs 10/11/21 [Rx Confirmed 09/04/22] escitalopram oxalate 10 mg tablet 10 mg PO DAILY 30 days #30 tabs 10/11/21 [Rx Confirmed 09/04/22] hydroxyzine HCl 25 mg tablet 25 mg PO BID PRN nausea and vomiting 01/02/22 [History Confirmed 09/04/22] insulin aspart U-100 100 unit/mL (3 mL) subcutaneous pen (Novolog FlexPen U-100 Insulin aspart) See Rx Instructions .Route .COMPLEX #15 mL 01/03/22 [Rx Confirmed 09/04/22] insulin glargine 100 unit/mL (3 mL) subcutaneous pen (Lantus Solostar U-100 Insulin) 5 unit (0.05 mL) SUBCUT BEDTIME #15 mL 01/03/22 [Rx Confirmed 09/04/22] ondansetron HCl 4 mg tablet 4 mg PO Q6H PRN nausea and vomiting #20 tabs 01/23/22 [Rx Confirmed 09/04/22] acetaminophen 500 mg tablet 500 mg PO Q6H PRN pain #30 tabs 02/06/22 [Rx Confirmed 09/04/22] cyclobenzaprine 10 mg tablet 10 mg PO BID PRN muscle spasm #20 tabs 02/06/22 [Rx Confirmed 09/04/22] clopidogrel 75 mg tablet (Plavix) 75 mg PO DAILY #30 tabs 02/14/22 [Rx Confirmed 09/04/22] baclofen 10 mg tablet 10 mg PO Q8H PRN muscle spasm #10 tabs 03/22/22 [Rx Confirmed 09/04/22] metoclopramide HCl 10 mg tablet (Reglan) 10 mg PO QID PRN Nausea 03/27/22 [History Confirmed 09/04/22] quetiapine 50 mg tablet 50 mg PO BEDTIME 03/27/22 [History Confirmed 09/04/22] ranolazine 500 mg tablet,extended release,12 hr 500 mg PO Q12H 03/27/22 [History Confirmed 09/04/22] amlodipine 5 mg tablet 5 mg PO DAILY #30 tabs 03/29/22 [Rx Confirmed 09/04/22] nitroglycerin 0.4 mg sublingual tablet (Nitrostat) 0.4 mg sublingual Q5M PRN Chest Pain 30 days #60 tabs 04/24/22 [Rx Confirmed 09/04/22] pantoprazole 40 mg tablet,delayed release (Protonix) 40 mg PO DAILY 8 weeks #60 tabs 08/18/22 [Rx Confirmed 09/04/22] diclofenac sodium 75 mg tablet,delayed release 75 mg PO Q12H PRN pain #20 tabs 08/29/22 [Rx Confirmed 09/04/22] isosorbide mononitrate 60 mg tablet,extended release 24 hr 60 mg PO DAILY 09/04/22 [History Confirmed 09/04/22] Discharge Plan Discharge Patient Disposition: Home Condition: Stable Prescriptions: No Action mralqceogn-criixgafrxirh-trud 50-325-40 mg tablet 2 tab PO BID PRN (Reason: Migraine Headache) Hold Instructions: interaction with aspirin albuterol sulfate [ProAir HFA] 90 mcg/actuation HFA aerosol inhaler 2 puff INHALATION Q4H PRN (Reason: Shortness Of Breath) 1 Days Qty: 30 0RF hydroxyzine HCl 25 mg tablet 25 mg PO BID PRN (Reason: nausea and vomiting) insulin glargine [Lantus Solostar U-100 Insulin] 100 unit/mL (3 mL) insulin pen 5 unit SUBCUT BEDTIME Qty: 15 0RF insulin aspart U-100 [Novolog FlexPen U-100 Insulin] 100 unit/mL (3 mL) insulin pen See Rx Instructions .ROUTE .COMPLEX Qty: 15 0RF Rx Instructions: Inject, 3 times daily, after meals, based on sliding scale provided ondansetron HCl 4 mg tablet 4 mg PO Q6H PRN (Reason: nausea and vomiting) Qty: 20 0RF nitroglycerin [Nitrostat] 0.4 mg Tablet, Sublingual 0.4 mg SUBLINGUAL Q5M PRN (Reason: Chest Pain) 30 Days Qty: 60 1RF Rx Instructions: do not exceed 3 doses per episode isosorbide mononitrate 60 mg tablet extended release 24 hr 60 mg PO DAILY escitalopram oxalate 10 mg Tablet 10 mg PO DAILY 30 Days Qty: 30 1RF atorvastatin 40 mg tablet 40 mg PO BEDTIME 30 Days Qty: 30 1RF cyclobenzaprine 10 mg tablet 10 mg PO BID PRN (Reason: muscle spasm) Qty: 20 0RF acetaminophen 500 mg tablet 500 mg PO Q6H PRN (Reason: pain) Qty: 30 0RF clopidogrel [Plavix] 75 mg tablet 75 mg PO DAILY Qty: 30 0RF baclofen 10 mg tablet 10 mg PO Q8H PRN (Reason: muscle spasm) Qty: 10 0RF metoclopramide HCl [Reglan] 10 mg tablet 10 mg PO QID PRN (Reason: Nausea) quetiapine 50 mg tablet 50 mg PO BEDTIME ranolazine 500 mg tablet extended release 12 hr 500 mg PO Q12H amlodipine 5 mg Tablet 5 mg PO DAILY Qty: 30 0RF pantoprazole [Protonix] 40 mg tablet,delayed release (DR/EC) 40 mg PO DAILY 56 Days Qty: 60 0RF diclofenac sodium 75 mg tablet,delayed release (DR/EC) 75 mg PO Q12H PRN (Reason: pain) Qty: 20 0RF Referrals: Cecily Miller MD [Primary Care Provider] - Patient Instructions: Opioid Safety Transfer Attestations Time Spent in Transfer Care: greater than 30 min Status at Transfer: Cognitive status at transfer: cognitively intact; Behavioral status at transfer: cooperative; Quality Metrics Clinical Quality Measures [ Acute Myocardial Infaction { Clinical Trial Participant: No; Contraindication to aspirin: None; Aspirin prescribed; Contraindication to statin: None; Statin prescribed; Contraindication to PCI: Intervention not indicated;}] Coding Level of Care Code [facility] Acute non-ST elevation myocardial infarction (NSTEMI) I21.4 Ventricular tachycardia I47.20 CHF exacerbation I50.9
--- NOTE | 2022-09-05 04:57 | PC.NURSE ---
09/05/22 0457 - Attempted to contact Jennyfer Murray (per pt request as emergency contact) to update her on pt transfer and night events. Unable to reach at this time. Number states disconnected when dialed. No other number listed in chart.
--- NOTE | 2022-09-05 05:11 | PC.NURSE ---
09/05/22 0500 - Pt left with [employer] crew. vss. report given. belongings sent with pt.
[2022-09-05 05:54] VITALS: BP 105/64; PULSE 94; RESP 19; TEMP 36.6; O2SAT 100
== END 2022-09-05 05:00 | disposition short-term general hospital (02) | DRG 280 ==
LOC: ER 09:42 → CSU 13:34
PROVIDERS: Internal Medicine Cardiovascular Disease; Admitting Provider Family Medicine; Emergency Provider Family Medicine; PCP Internal Medicine; Visit Provider Family Medicine
PROC: B2111ZZ Fluoroscopy of Multiple Coronary Arteries using Low Osmolar Contrast (ICD-10-PCS; principal; 2022-09-04 22:00)
DX: T82.855A Stenosis of coronary artery stent, initial encounter (principal); I21.A1 Myocardial infarction type 2; I50.21 Acute systolic (congestive) heart failure; I20.1 Angina pectoris with documented spasm; I47.20 Ventricular tachycardia, unspecified; Y71.8 Miscellaneous cardiovascular devices associated with adverse incidents, not elsewhere classified; Z95.5 Presence of coronary angioplasty implant and graft; I48.91 Unspecified atrial fibrillation; F10.10 Alcohol abuse, uncomplicated; F31.9 Bipolar disorder, unspecified; E11.9 Type 2 diabetes mellitus without complications; Z79.4 Long term (current) use of insulin; E78.5 Hyperlipidemia, unspecified; Z86.73 Personal history of transient ischemic attack (TIA), and cerebral infarction without residual deficits; Z87.891 Personal history of nicotine dependence; I11.0 Hypertensive heart disease with heart failure; Z99.89 Dependence on other enabling machines and devices; Z79.02 Long term (current) use of antithrombotics/antiplatelets
CPT/HCPCS: 36415; 36416; 71045; 80048; 80053; 80061; 80306; 80307; 82962; 83036; 83735; 83880; 84100; 84145; 84443; 84484; 85025; 93005; 93306; 93454; 94664; 96372; 96374; 96375; 99152; 99153; 99285; C1760; C1769; C1887; C1894; G0269; J0282; J1200; J1644; J1650; J1940; J2060; J2250; J2270; J2405; J2930; J3010; J3490; J7030; J7060; Q9967